=== PATIENT | male | born 1965 | race Caucasian/White ===

== ENCOUNTER 2019-11-27 07:23 | Outpatient (CLI) | payer OTHER, SELFPAY ==
--- NOTE | ~2019-11-27 | CT_ITS ---
EXAMINATION:CT chest wo con DATE: 11/27/2019 08:24 INDICATION: Congenital insufficiency of aortic valve. TECHNIQUE: Computed tomography (CT) of the chest was performed without intravenous contrast. Automate d exposure control and iterative reconstruction technique were employed. The dose-length product (DLP ) was 403.68 mGy-cm. COMPARISON: Chest CT 01/05/2018 FINDINGS: The lungs demonstrate mild atelectasis. There is mild scarring in paraspinal right lower lo be. There are mild tree-in-bud opacities in left lower lobe, likely inflammation or infection. A calc ified right lung nodule and calcified right hilar and mediastinal lymph nodes are consistent with old granulomatous disease. No pleural effusion. The heart size is normal. There are calcifications of ao rtic valve. There are coronary artery calcifications. No pericardial effusion. There is ectasia of as cending aorta measuring 4.2 cm. There is mild thoracic spondylosis. IMPRESSION: 1. Ectasia of ascending aorta measuring 4.2 cm. 2. Calcifications of aortic valve. Reviewed, dictated and finalized at location A. 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
[2019-11-27 08:07] LABS: Blood Urea Nitrogen 35 mg/dL (8-26); Estimated Glomerular Filt Rate 29
== END 2019-11-27 07:24 | disposition home or self-care (01) ==
PROVIDERS: PCP Family Medicine; Visit Provider Internal Medicine Cardiovascular Disease
DX: Q23.1 Congenital insufficiency of aortic valve (principal)
CPT/HCPCS: 71250

== ENCOUNTER 2020-02-04 13:24 | Inpatient (IN) | payer OTHER, SELFPAY ==
--- NOTE | ~2020-02-04 | US_ITS ---
EXAMINATION: US renal BI DATE: 02/05/2020 10:54 INDICATION: Elevated creatinine TECHNIQUE: Multiple grayscale and Doppler ultrasound images of the kidneys were obtained. COMPARISON: 04/30/2019 FINDINGS: The right kidney measures 12.0 x 6.3 x 6.5 cm. The left kidney measures 12.3 x 5.4 x 6.2 cm . The kidneys demonstrate normal parenchymal echogenicity. There is no hydronephrosis. The bladder is normal. IMPRESSION: 1. Normal kidneys without hydronephrosis. Reviewed, dictated and finalized at location A.
--- NOTE | ~2020-02-04 | MR_ITS ---
EXAMINATION: MR foot LT wo con DATE: 02/05/2020 10:52 INDICATION: Left foot osteomyelitis. TECHNIQUE: Magnetic resonance imaging (MRI) of the left foot was performed without intravenous contra st. Sequences included axial, coronal, and sagittal T1-weighted FSE and T2-weighted FS FSE. COMPARISON: Left foot MRI 04/11/2019, radiographs 08/30/2019 FINDINGS: There is mild hallux valgus. There are ulcers plantar and medial to first metatarsophalange al joint. There is bone marrow edema of first metatarsal with sparing of the base. There is bone osbaldo ow edema of first proximal phalanx with sparing of portions of the head. In both sites, bone marrow e herve is characterized by decreased T1-weighted signal intensity and increased T2-weighted signal inte nsity. There is moderate osteoarthritis of first metatarsophalangeal joint. There is mild osteoarthri tis of some of the interphalangeal joints and midfoot joints. There is increased T2-weighted signal i ntensity of the soft tissues around first proximal phalanx and first metatarsal, consistent with cell ulitis and myositis. More distant muscles demonstrate increased T2-weighted signal intensity, consist ent with subacute denervation. Lisfranc ligament is intact. There is mild tenosynovitis of flexor tory lucis longus. IMPRESSION: 1. Osteomyelitis involving first metatarsal and first proximal phalanx. Reviewed, dictated and finalized at location A.
--- NOTE | ~2020-02-04 | XR_ITS ---
XR chest port-a-cath/central 02/06/2020 16:01 Indication: Postop Wright catheter placement Procedure: AP portable chest Comparison: Comparison to multiple prior studies sequentially, with oldest reviewed study dated 01/04. Findings: Left subclavian Wright catheter tip in the right atrium. There is a new mass in the right paratracheal region, not seen on 10/31/2019. No pleural effusion, edema or pneumothorax. Impression: 1: New right paratracheal mass. Consider correlation with CT chest with contrast. Reviewed, dictated and finalized at location A. Impression: 1: New right paratracheal mass. Consider correlation with CT chest with contras t.
--- NOTE | ~2020-02-04 | XR_ITS ---
EXAMINATION: XR fl guide central line place INDICATION: Wright catheter insertion TECHNIQUE: A single intraoperative fluoroscopic image is submitted for review. Fluoroscopy exposure t deepthi was 109.2 seconds. The DAP for this procedure was 0.805 mGycm2. COMPARISON: None available FINDINGS: Fluoroscopic image demonstrates a partially imaged left subclavian central venous catheter. Please refer to procedure note for full details. IMPRESSION: 1. Partially imaged left subclavian catheter. Please refer to procedure note for full details. Reviewed, dictated and finalized at location A. IMPRESSION: 1. Partially imaged left subclavian catheter. Please refer to procedure note fo r full details.
--- NOTE | ~2020-02-04 | XR_ITS ---
XR foot LT 2V 02/06/2020 16:01 Indication: Postop left foot surgery osteomyelitis. Procedure: 2 views left foot postoperatively Comparison: 08/30/2019 Findings: Status post amputation of the first digit at the proximal aspect of the first metatarsal. N o foreign bodies identified. Lisfranc joint is grossly unremarkable. Small degenerative calcaneal ent hesophyte. Impression: 1: Status post recent amputation left first toe at the base of the first metatarsal. Reviewed, dictated and finalized at location A. Impression: 1: Status post recent amputation left first toe at the base of the first metata rsal.
--- NOTE | ~2020-02-04 | CT_ITS ---
EXAMINATION:CT chest wo con DATE: 02/07/2020 13:17 INDICATION: Right paratracheal mass. TECHNIQUE: Computed tomography (CT) of the chest was performed without intravenous contrast. Automate d exposure control and iterative reconstruction technique were employed. The dose-length product (DLP ) was 344.16 mGy-cm. COMPARISON: Chest single view 02/06/2020, chest CT 11/27/2019 FINDINGS: The lungs demonstrate mild atelectasis. A calcified right lung nodule and calcified right h ilar lymph nodes are consistent with old granulomatous disease. No pleural effusion. A left subclavia n central venous catheter is seen with tip at the superior cavoatrial junction. The heart size is nor mal. There are coronary artery calcifications. There are calcifications of the aortic valve. No peric ardial effusion. There is mild thoracic spondylosis. IMPRESSION: 1. No abnormal right paratracheal mass. Reviewed, dictated and finalized at location A.
--- NOTE | ~2020-02-04 | US_ITS ---
EXAMINATION: US arterial duplex LE EXAM DATE: 02/04/2020 15:37 INDICATION: Foot ulcers. TECHNIQUE: Multiple grayscale and Doppler images of the lower extremity arteries were obtained (by a technologist who performed the scan) and subsequently reviewed. There is no prior study for comparis on. FINDINGS: Velocities reported in centimeters per second. Right HEALTH INSURANCE AGENT 79, profunda 101, SFA, 97, popliteal 38, posterior tibial 52, dorsalis pedis 12 cm/s. There are triphasic wave forms except dorsalis pedis which is biphasic. The left HEALTH INSURANCE AGENT 118, profunda 112, SFA 101, popliteal 57, posterior tibial 71, dorsalis pedis 55 cm/s. T riphasic waveforms superficial femoral artery, monophasic below. IMPRESSION: 1. Normal lower extremity arterial Doppler velocities. 2. Monophasic left lower extremity velocities below SFA. Reviewed, dictated and finalized at location A.
--- NOTE | 2020-02-04 11:30 | ADMGEN ---
This patient, Pankaj Bautista, was admitted to Medical Room 250-01. Patient/family oriented to hospital policies and general routines including ID bracelet, bed and alarms, visiting hours, pain management, procedures, bathroom and other care routines, personal items, smoking policy, room service/diet, and visiting hours. Valuables list has been completed. Information on how to activate the Rapid Response Team has been discussed. Patient/Family are encouraged to report perceived risks to care and to ask questions if they do not understand what they are told or what they should do.
[2020-02-04 12:24] VITALS: BP 118/62; PULSE 91; RESP 18; TEMP 36.6; O2SAT 100
[2020-02-04 13:34] VITALS: BMI 30.8
[2020-02-04 13:42] LABS: Hemoglobin A1C 10.2 % (<5.7)
[2020-02-04 13:44] LABS: Estimated CRCL calculation 21 ml/min; Estimated Glomerular Filt Rate 14
[2020-02-04 14:00] VITALS: BP 102/72; PULSE 86; RESP 18; TEMP 36.1; O2SAT 95
--- NOTE | 2020-02-04 14:22 | PM.CNCAR ---
Assessment and Plan Assessment and plan (1) Diabetic foot ulcer: Code(s): E11.621 - Type 2 diabetes mellitus with foot ulcer; L97.509 - Non-pressure chronic ulcer of other part of unspecified foot with unspecified severity Status: Acute Assessment and Plan: 54 y/o with uncontrolled DM, HTN, bicuspid aortic valve with moderate to severe who presented with worsening leg ulcer His presentation with chronic ulcer makes embolic event less likely. His ulcer likely due to diabetes and less likely due to PVD as he He had normal CYNTHIA in Sep 2019, however will check arterial duplex of lower ext to rule out the possibility of significant PVD (he may have calcified disease given CKD) (2) Bicuspid aortic valve: Code(s): Q23.1 - Congenital insufficiency of aortic valve Status: Acute Assessment and Plan: With moderate to severe . Patient followed up by his elementary librarian with serial echocardiogram. most recent in Sep that showed valve area of 1.0 with velocity of 3.5 and mean gradient of 29 consistent with moderate to severe . (3) Chronic kidney disease: Code(s): N18.9 - Chronic kidney disease, unspecified Status: Acute Assessment and Plan: Creatinine 2.4 in Nov. No labs today yet. (4) Type 2 diabetes mellitus with hyperglycemia: Code(s): E11.65 - Type 2 diabetes mellitus with hyperglycemia Status: Acute History of Present Illness History of Present Illness Consult date/time: 02/04/20 14:22 54 y/o male with h/o HTN, DM since 2007, diabetic foot ulcer, Mod to severe with bicuspid aortic valve, CKD who was referred from his digital marketing coordinator office for with worsening foot ulcer for partial amputation. We were consulted to comment on possibility of PVD contributing to foot ulcer. He has the ulcer (on the plantar surface of 1st MTP joint of his left foot) for the last 2 years and he has been followed closely by podiatry for that. Over the last 3-4 days pain got worse and ulcer become deeper so he was referred to the hospital with plan for partial amputation as per patient He had CYNTHIA done in Sep that was normal. He also had 2D echo that showed moderate to severe with bicuspid valve. He denies chest pain or dyspnea. No EKG available currently. Reason For Visit: Cellulitis Review of Systems Review of Systems: All systems reviewed & are unremarkable except as noted in HPI and below Constitutional: Constitutional: Denies fatigue and Denies headache(s) Eyes: Eyes: Denies blurry vision ENT: Reports Normal hearing present and Denies headache(s) Cardiovascular: Cardiovascular: Denies chest pain, Denies diaphoresis, Denies pedal edema, Denies leg edema, Denies lightheadedness, Denies palpitations and Denies dyspnea Respiratory: Respiratory: Denies cough and Denies dyspnea Gastrointestinal: Gastrointestinal: Denies abdominal pain Musculoskeletal: Musculoskeletal: Denies back pain Neurologic: Reports Normal hearing present and Denies headache(s) Psychiatric: Psychiatric: Denies anxiety Endocrine: Endocrine: Denies fatigue and Denies palpitations [facility] Past Medical History Medical History (Updated 02/04/20 @ 14:31 by July Kong MD) Aortic valve stenosis Arthritis Chronic kidney disease Diabetic foot ulcer Essential (primary) hypertension FHx: prostate cancer Finger fracture GERD (gastroesophageal reflux disease) Head ache Heart murmur Hiatal hernia History of cerebrovascular accident (CVA) in adulthood Hy kid NOS w cr kid I-IV Impingement syndrome of left shoulder Iron deficiency Long-term insulin use Microcytic anemia Mixed hyperlipidemia Neuropathy Peripheral vascular disease Pneumonia Prostate cancer screening 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
[2020-02-04 14:36] LABS: Glucose Point of Care 91 (65-105)
--- NOTE | 2020-02-04 15:49 | WPDHPUPDATE1 ---
History and Physical Update Update Date/Time: 02/04/20 15:49 History and Physical has been reviewed, including an updated exam of the patient. There are NO changes in the patient's condition. Risks, benefits, and alternatives have been discussed and questions answered. Patient agrees to proceed with procedure.
--- NOTE | 2020-02-04 15:51 | PM.IMHP ---
H&P: HPI History of Present Illness Chief complaint: Cellulitis Narrative: Pankaj Bautista is a 54 year old male with history of uncontrolled diabetes with last hemoglobin A1c of 10.1, moderate to severe aortic stenosis and chronic kidney disease, it is for last 2 months he has been having pain in his left foot, patient is seen by his primary care doctor and started the patient on doxycycline his symptoms were not improving your difficulty weight-bearing and ambulating was seen by inspector final assembly electrical today and had I and D, surgeon noticed the patient has necrosis of the wound and suspect the patient may have osteomyelitis to further evaluate we were asked to admit the patient, currently patient states pain is still persisting he denies any fever or chills he denies any polyuria or polydipsia, Review of Systems Review of Systems: All systems reviewed & are unremarkable except as noted in HPI and below PMFSH Past Medical History Medical History (Updated 02/04/20 @ 14:31 by July Kong MD) Aortic valve stenosis Arthritis Chronic kidney disease Diabetic foot ulcer Essential (primary) hypertension FHx: prostate cancer Finger fracture GERD (gastroesophageal reflux disease) Head ache Heart murmur Hiatal hernia History of cerebrovascular accident (CVA) in adulthood Hy kid NOS w cr kid I-IV Impingement syndrome of left shoulder Iron deficiency Long-term insulin use Microcytic anemia Mixed hyperlipidemia Neuropathy Peripheral vascular disease Pneumonia Prostate cancer screening 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el release History of tonsillectomy Social History Social History (Updated 12/24/19 @ 16:34 by Lizbeth Burt) Smoking packs per day: 2 Smoking cigarettes per day: 40.0 Years smoked: 25 Smoking pack-years: 50.00 Smoking status: Former smoker Tobacco type: cigarettes Smoking end date: 10/23/17 Alcohol intake: never Substance use: never Substance use type: does not use Gender identity (if verbalized by the patient): Male Spiritual care concerns: No Agree to blood products: Yes Meds Home Medications and Allergies Home Medications Medication Instructions Recorded Confirmed Type amlodipine 10 mg PO DAILY 08/30/19 02/04/20 History empagliflozin [Jardiance] 25 mg PO DAILY 08/30/19 02/04/20 History gemfibrozil 600 mg PO DAILY 08/30/19 02/04/20 History metformin 1,000 mg PO DAILY 08/30/19 02/04/20 History pantoprazole 40 mg PO HS 08/30/19 02/04/20 History pravastatin 80 mg PO DAILY 08/30/19 02/04/20 History ranitidine HCl 150 mg PO DAILY 08/30/19 02/04/20 History venlafaxine 100 mg PO BID 08/30/19 02/04/20 History fenofibrate micronized 134 mg 134 mg PO DAILY 09/11/19 02/04/20 History capsule gabapentin 300 mg capsule 300 mg PO TID 09/11/19 02/04/20 History pen needle, diabetic 31 gauge x #30 each 09/11/19 02/04/20 Rx 5/16 sildenafil 100 mg tablet 100 mg PO DAILY PRN 09/11/19 02/04/20 History alogliptin 25 mg tablet 25 mg PO DAILY 09/16/19 02/04/20 History metoprolol succinate 100 mg 100 mg PO DAILY 11/12/19 02/04/20 History capsule sprinkle, ext. release 24 hr insulin detemir U-100 100 unit/mL 44 unit SUB-Q BID #30 ml 01/01/20 02/04/20 Rx subcutaneous solution insulin syringe-needle U-100 0.5 #200 each 01/01/20 02/04/20 Rx mL 29 gauge x 1/2 valsartan 160 mg tablet 160 mg PO DAILY #90 tablet 01/30/20 02/04/20 Rx doxycycline hyclate 100 mg tablet 100 mg PO DAILY #28 tablet 02/03/20 02/04/20 Rx Allergies Allergy/AdvReac Type Severity Reaction Status Date / Time No Known Allergies Allergy Verified 02/04/20 12:40 Vital Signs Vital Signs - 24 hr 02/04/20 12:24 02/04/20 14:00 Temperature 97.9 F 96.9 F L Pulse Rate 91 86 Respiratory Rate 18 18 Blood Pressure 118/62 102
[2020-02-04 15:59] LABS: Basophils Absolute Auto 0.1 K/mm3 (0.0-0.1); Basophils Percent Auto 0.5 % (0.2-1.2); Eosinophils Absolute Auto 0.1 K/mm3 (0-0.3); Eosinophils Percent Auto 0.4 % (0-4.4); Hemoglobin 10.7 g/dL (14.0-18.0); Immature Granulocyte Absolute 0.15 K/mm3 (0.00-0.031); Immature Granulocyte Percent A 0.6 % (0-0.5); Lymphocytes Absolute Auto 2.22 K/mm3 (0.9-3.2); Lymphocytes Percent Auto 9.6 % (18.3-44.2); Mean Corpuscular HGB Conc 30.6 g/dl (32-36); Mean Corpuscular Hemoglobin 23.6 pg (26-34); Mean Corpuscular Volume 77.1 fl (80-100); Mean Platelet Volume 9.8 fl (7.4-10.4); Monocytes Absolute Auto 2.2 K/mm3 (0.1-0.6); Monocytes Percent Auto 9.3 % (2.6-8.5); Neutrophils Absolute Auto 18.4 K/mm3 (1.3-6.7); Neutrophils Percent Auto 79.6 % (45.5-73.1); Platelet Count Result 456 k/mm3 (150-375); Red Blood Count 4.54 M/mm3 (4.6-6.20); Red Cell Distribution Width 14.2 % (11.5-14.5); White Blood Count 23.1 K/mm3 (4.5-10.0)
[2020-02-04] MEDS: GABAPENTIN 300 MG CAPSULE PO (16:47)
[2020-02-04] MEDS: INSULIN DETEMIR 100 UNITS/ML 44 UNITS SUB-Q (16:48)
[2020-02-04] MEDS: VENLAFAXINE HCL 75 MG TABLET PO (16:51)
[2020-02-04] MEDS: VENLAFAXINE HCL 25 MG TABLET PO (16:51)
[2020-02-04 16:56] LABS: Glucose Point of Care 141 (65-105)
[2020-02-04 19:29] LABS: Alanine Aminotransferase 9 U/L (4-50); Albumin Level 3.6 g/dL (3.5-5.1); Alkaline Phosphatase 138 U/L (38-126); Aspartate Amino Transferase 16 U/L (17-59); Bilirubin,Total 0.3 mg/dL (0.2-1.3); Blood Urea Nitrogen 46 mg/dL (9-20); Calcium 8.8 mg/dL (8.4-10.2); Carbon Dioxide 20 mmol/L (22-30); Chloride 98 mmol/L (98-107); Estimated CRCL calculation 18 ml/min; Estimated Glomerular Filt Rate 12; Glucose 137 mg/dL (75-110); Potassium 3.8 mmol/L (3.4-5.0); Sodium 130 mmol/L (137-145)
[2020-02-04] MEDS: HEPARIN SODIUM 5,000 UNITS/ML VIAL 5000 UNITS SUB-Q (19:55)
[2020-02-04] MEDS: PANTOPRAZOLE 40 MG TABLET PO (19:55)
[2020-02-04 20:00] VITALS: PULSE 86; RESP 18; O2SAT 95
[2020-02-04 21:06] LABS: Glucose Point of Care 139 (65-105)
[2020-02-04 21:55] VITALS: BP 122/80; PULSE 99; RESP 16; TEMP 36.6; O2SAT 95
[2020-02-05 05:13] LABS: Basophils Absolute Auto 0.1 K/mm3 (0.0-0.1); Basophils Percent Auto 0.4 % (0.2-1.2); Eosinophils Absolute Auto 0.2 K/mm3 (0-0.3); Eosinophils Percent Auto 1.5 % (0-4.4); Hematocrit 32.3 % (42.0-52.0); Hemoglobin 10.4 g/dL (14.0-18.0); Immature Granulocyte Absolute 0.09 K/mm3 (0.00-0.031); Immature Granulocyte Percent A 0.5 % (0-0.5); Lymphocytes Absolute Auto 2.31 K/mm3 (0.9-3.2); Lymphocytes Percent Auto 14.1 % (18.3-44.2); Mean Corpuscular HGB Conc 32.2 g/dl (32-36); Mean Corpuscular Volume 74.6 fl (80-100); Mean Platelet Volume 9.3 fl (7.4-10.4); Monocytes Absolute Auto 1.8 K/mm3 (0.1-0.6); Monocytes Percent Auto 10.9 % (2.6-8.5); Neutrophils Absolute Auto 11.9 K/mm3 (1.3-6.7); Neutrophils Percent Auto 72.6 % (45.5-73.1); Platelet Count Result 410 k/mm3 (150-375); Red Blood Count 4.33 M/mm3 (4.6-6.20); Red Cell Distribution Width 13.9 % (11.5-14.5); White Blood Count 16.4 K/mm3 (4.5-10.0)
[2020-02-05 05:26] LABS: Blood Urea Nitrogen 53 mg/dL (9-20); Calcium 8.9 mg/dL (8.4-10.2); Carbon Dioxide 19 mmol/L (22-30); Chloride 100 mmol/L (98-107); Estimated CRCL calculation 14 ml/min; Estimated Glomerular Filt Rate 9; Glucose 116 mg/dL (75-110); Potassium 3.5 mmol/L (3.4-5.0); Sodium 131 mmol/L (137-145)
[2020-02-05 06:00] VITALS: BP 114/78; PULSE 93; RESP 16; TEMP 35.9; O2SAT 92
[2020-02-05 08:07] LABS: Glucose Point of Care 93 (65-105)
--- NOTE | 2020-02-05 09:00 | PM.IMHP ---
H&P: HPI History of Present Illness Chief complaint: Cellulitis Narrative: Pankaj Bautista is a 54 year old male Insulin-dependent diabetic with chronic kidney disease. The patient was admitted after being seen in my office February 04, 2020, he was referred over by his primary care physician's office for an infected diabetic foot ulcer left. I performed an incision and drainage of a large abscess to the first metatarsal phalangeal joint. The patient had malaise, weakness. No fevers, no chills no nausea no vomiting. I decided to had the patient admitted for evaluation and managementof possible osteomyelitis. Review of Systems Review of Systems: All systems reviewed & are unremarkable except as noted in HPI and below PMFSH Past Medical History Medical History (Updated 02/05/20 @ 09:16 by Kendall Garcia JR, MD) Aortic valve stenosis Arthritis Chronic kidney disease Diabetic foot ulcer Diabetic foot ulcer Probing to bone Essential (primary) hypertension FHx: prostate cancer Finger fracture GERD (gastroesophageal reflux disease) Head ache Heart murmur Hiatal hernia History of cerebrovascular accident (CVA) in adulthood Hy kid NOS w cr kid I-IV Impingement syndrome of left shoulder Iron deficiency Long-term insulin use Microcytic anemia Mixed hyperlipidemia Neuropathy Peripheral vascular disease (Unknown) Pneumonia Prostate cancer screening 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el release History of tonsillectomy Social History Social History (Updated 12/24/19 @ 16:34 by Lizbeth Burt) Smoking packs per day: 2 Smoking cigarettes per day: 40.0 Years smoked: 25 Smoking pack-years: 50.00 Smoking status: Former smoker Tobacco type: cigarettes Smoking end date: 10/23/17 Alcohol intake: never Substance use: never Substance use type: does not use Gender identity (if verbalized by the patient): Male Spiritual care concerns: No Agree to blood products: Yes Meds Home Medications and Allergies Home Medications Medication Instructions Recorded Confirmed Type amlodipine 10 mg PO DAILY 08/30/19 02/04/20 History gemfibrozil 600 mg PO DAILY 08/30/19 02/04/20 History metformin 1,000 mg PO DAILY 08/30/19 02/04/20 History pantoprazole 40 mg PO HS 08/30/19 02/04/20 History pravastatin 80 mg PO DAILY 08/30/19 02/04/20 History ranitidine HCl 150 mg PO DAILY 08/30/19 02/04/20 History venlafaxine 100 mg PO BID 08/30/19 02/04/20 History fenofibrate micronized 134 mg 134 mg PO DAILY 09/11/19 02/04/20 History capsule gabapentin 300 mg capsule 300 mg PO TID 09/11/19 02/04/20 History pen needle, diabetic 31 gauge x #30 each 09/11/19 02/04/20 Rx 5/16 sildenafil 100 mg tablet 100 mg PO DAILY PRN 09/11/19 02/04/20 History alogliptin 25 mg tablet 25 mg PO DAILY 09/16/19 02/04/20 History metoprolol succinate 100 mg 100 mg PO DAILY 11/12/19 02/04/20 History capsule sprinkle, ext. release 24 hr insulin detemir U-100 100 unit/mL 44 unit SUB-Q BID #30 ml 01/01/20 02/04/20 Rx subcutaneous solution insulin syringe-needle U-100 0.5 #200 each 01/01/20 02/04/20 Rx mL 29 gauge x 1/2 valsartan 160 mg tablet 160 mg PO DAILY #90 tablet 01/30/20 02/04/20 Rx doxycycline hyclate 100 mg tablet 100 mg PO DAILY #28 tablet 02/03/20 02/04/20 Rx Allergies Allergy/AdvReac Type Severity Reaction Status Date / Time No Known Allergies Allergy Verified 02/04/20 12:40 Vital Signs Vital Signs - 24 hr 02/04/20 12:24 02/04/20 14:00 02/04/20 20:00 Temperature 36.6 C 36.1 C L Pulse Rate 91 86 86 Respiratory Rate 18 18 18 Blood Pressure 118/62 102/72 Pulse Oximetry 100 95 95 02/04/20 21:55 02/05/20 06:00 Temperature 36.6 C 35.9 C L Pulse Rate 99 93 Respiratory Rate 16 16 Blood Pressure 122/80 114/
--- NOTE | 2020-02-05 09:07 | PCOTNOTE ---
Attempted OT evaluation, but unable to complete as patient going for a stat MRI. Will continue to follow.
--- NOTE | 2020-02-05 09:07 | PCPTNOTE ---
Attempted PT eval. Pt going to MRI. Will try again at later time.
[2020-02-05] MEDS: AMLODIPINE BESYLATE 5 MG TABLET 10 MG PO (09:11)
[2020-02-05] MEDS: FAMOTIDINE 20 MG TABLET PO (09:11)
[2020-02-05] MEDS: GABAPENTIN 300 MG CAPSULE PO ×3 (09:11→17:02)
[2020-02-05] MEDS: FENOFIBRATE NANOCRYSTALLIZED 145 MG TABLET PO (09:11)
[2020-02-05] MEDS: gemfibroziL 600 MG TABLET PO (09:11)
[2020-02-05] MEDS: HEPARIN SODIUM 5,000 UNITS/ML VIAL 5000 UNITS SUB-Q (09:11)
[2020-02-05] MEDS: VENLAFAXINE HCL 75 MG TABLET PO ×2 (09:12→17:03)
[2020-02-05] MEDS: PRAVASTATIN SODIUM 20 MG TABLET 80 MG PO (09:12)
[2020-02-05] MEDS: VENLAFAXINE HCL 25 MG TABLET PO ×2 (09:12→17:03)
[2020-02-05] MEDS: metFORMIN HCL 500 MG TABLET 1000 MG PO (09:12)
[2020-02-05] MEDS: VALSARTAN 160 MG TABLET PO (09:12)
[2020-02-05 09:13] VITALS: PULSE 80
[2020-02-05] MEDS: METOPROLOL SUCCINATE EXT REL 100 MG TABCR PO (09:13)
--- NOTE | 2020-02-05 09:25 | PC.NURSE ---
Patient c/o epigastric/lower medial chest pain with inspiration - rated 4/10. States the pain is sharp and intermittent. VS remain stable. Notified Dr. Lim and he stated cardiology should be informed. Dr. Glass here on rounds. Notified him of pain also. No new orders received.
[2020-02-05] MEDS: INSULIN DETEMIR 100 UNITS/ML 44 UNITS SUB-Q (09:26)
--- NOTE | 2020-02-05 09:44 | PC.NURSE ---
Patient home med Alogliptan tubed to pharmacy for verification.
--- NOTE | 2020-02-05 10:24 | PM.PNCARD ---
Progress Note: A&P Assessment and Plan (1) Diabetic foot ulcer: Code(s): E11.621 - Type 2 diabetes mellitus with foot ulcer; L97.509 - Non-pressure chronic ulcer of other part of unspecified foot with unspecified severity Status: Acute Assessment and Plan: 54 y/o with uncontrolled DM, HTN, bicuspid aortic valve with moderate to severe who presented with worsening leg ulcer His presentation with chronic ulcer, left heel duplex showed no significant disease, indicating but also is likely due to volvulus but not multiple vascular disease. Okay to go for amputation (2) Bicuspid aortic valve: Code(s): Q23.1 - Congenital insufficiency of aortic valve Status: Acute Assessment and Plan: With moderate to severe . 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 most recent in Sep that showed valve area of 1.0 with velocity of 3.5 and mean gradient of 29 consistent with moderate to severe . (3) Chronic kidney disease: Code(s): N18.9 - Chronic kidney disease, unspecified Status: Acute Assessment and Plan: Creatinine 2.4 in Nov. No labs today yet. (4) Type 2 diabetes mellitus with hyperglycemia: Code(s): E11.65 - Type 2 diabetes mellitus with hyperglycemia Status: Acute Subjective Date/time seen: 02/05/20 10:24 He feels okay today, he gets occasional chest pain seems to be nonexertional, and seems to be pleuritic. Arterial duplex was done showed no significant peripheral vascular disease Exam Const: General: no acute distress Eyes: Sclera: sclerae normal Neck: Neck: no JVD Carotids: no bruits Resp: Effort & Inspection: normal respiratory effort Auscultation: clear to auscultation bilaterally Cardio: Rate: regular rate and not tachycardic Rhythm: regular rhythm Heart sounds: no gallops, Murmur heart sound present (2-3/6 systolic murmur. ) and no rubs Skin: General skin exam: normal color Other: 3-4cm in plantar surface of 1st MTP joint of the left foot. No pus. + Erythema and edema Neuro: Cranial nerves: Yes Normal hearing present Speech: normal speech Extrem: General: normal to inspection and no edema Psych: Affect: normal affect Objective Data Vital Signs Vital Signs: Vital Signs - 24 hr 02/04/20 12:24 02/04/20 14:00 02/04/20 20:00 Temperature 36.6 C 36.1 C L Pulse Rate 91 86 86 Respiratory Rate 18 18 18 Blood Pressure 118/62 102/72 Pulse Oximetry 100 95 95 02/04/20 21:55 02/05/20 06:00 02/05/20 09:13 Temperature 36.6 C 35.9 C L Pulse Rate 99 93 80 Respiratory Rate 16 16 Blood Pressure 122/80 114/78 Pulse Oximetry 95 92 Intake/Output Intake/Output: Intake & Output 02/02/20 02/03/20 02/04/20 02/05/20 23:59 23:59 23:59 23:59 Intake Total 880 880 Output Total 500 Balance 880 380 Meds/Results Medications: Active Medications Generic Name Dose Route Start Last Admin Trade Name Freq PRN Reason Stop Dose Admin Amlodipine Besylate 10 mg 02/05/20 09:00 02/05/20 09:11 Norvasc PO 10 mg DAILY ALEX Administration Dextrose 12.5 gm 02/04/20 16:06 Dextrose 50% Syringe IV PUSH PRN PRN Hypoglycemia Protocol Famotidine 20 mg 02/05/20 09:00 02/05/20 09:11 Pepcid PO 20 mg DAILY ALEX Administration Fenofibrate 145 mg 02/05/20 09:00 02/05/20 09:11 Tricor PO 145 mg DAILY ALEX Administration Gabapentin 300 mg 02/04/20 17:00 02/05/20 09:11 Neurontin PO 300 mg TID ALEX Administration Gemfibrozil 600 mg 02/05/20 09:00 02/05/20 09:11 Lopid PO 600 mg DAILY ALEX Administration Glucagon 1 mg 02/04/20 16:06 Glucagon For Inj IM PRN PRN Hypoglycemia Protocol Glucose 15 gm 02/04/20 16:06 Glutose 15 PO PRN PRN Hypoglycemia Protocol Heparin Sodium (Porcine) 5,000 units 02/04/20 21:00 02/05/20 09:11 Heparin Sodium SUB-Q 5,000 units Q12HR ALEX Administration Dextrose 1,00
--- NOTE | 2020-02-05 10:45 | PHAR ---
HOME MED VERIFIED [facility] RX [id number] ALOGLIPTIN 12.5 MG 1 TAB ONCE A DAY DOES NOT MATCH HOME ORDER OF 25 MG DAILY
[2020-02-05 11:41] LABS: Glucose Point of Care 186 (65-105)
--- NOTE | 2020-02-05 12:38 | WPDINFPN2 ---
Progress Note: A&P Assessment and Plan (1) Acute osteomyelitis involving ankle and foot: Code(s): M86.179 - Other acute osteomyelitis, unspecified ankle and foot Status: Acute Assessment and Plan: 1. Acute OM L 1st MT and proximal phalanx 2. Chronic ulcer, plantar 1st MT head 3. DM poor control 4. CRI REC PipTazo #1. Wound culture in process. Will need ray amputation and 6 weeks IV therapy. Midline and PICC are relatively contraindicated due to renal insufficiency and future need for AV fistula, get Wright. Subjective Date/time seen: 02/05/20 12:38 Objective Data Vital Signs Vital Signs: Vital Signs - 24 hr 02/04/20 14:00 02/04/20 20:00 02/04/20 21:55 Temperature 36.1 C L 36.6 C Pulse Rate 86 86 99 Respiratory Rate 18 18 16 Blood Pressure 102/72 122/80 Pulse Oximetry 95 95 95 02/05/20 06:00 02/05/20 09:13 Temperature 35.9 C L Pulse Rate 93 80 Respiratory Rate 16 Blood Pressure 114/78 Pulse Oximetry 92 Intake/Output Intake/Output: Intake & Output 02/02/20 02/03/20 02/04/20 02/05/20 23:59 23:59 23:59 23:59 Intake Total 880 880 Output Total 500 Balance 880 380 Meds/Results Medications: Active Medications Generic Name Dose Route Start Last Admin Trade Name Freq PRN Reason Stop Dose Admin Amlodipine Besylate 10 mg 02/05/20 09:00 02/05/20 09:11 Norvasc PO 10 mg DAILY ALEX Administration Dextrose 12.5 gm 02/04/20 16:06 Dextrose 50% Syringe IV PUSH PRN PRN Hypoglycemia Protocol Famotidine 20 mg 02/05/20 09:00 02/05/20 09:11 Pepcid PO 20 mg DAILY ALEX Administration Fenofibrate 145 mg 02/05/20 09:00 02/05/20 09:11 Tricor PO 145 mg DAILY ALEX Administration Gabapentin 300 mg 02/04/20 17:00 02/05/20 12:28 Neurontin PO 300 mg TID ALEX Administration Gemfibrozil 600 mg 02/05/20 09:00 02/05/20 09:11 Lopid PO 600 mg DAILY ALEX Administration Glucagon 1 mg 02/04/20 16:06 Glucagon For Inj IM PRN PRN Hypoglycemia Protocol Glucose 15 gm 02/04/20 16:06 Glutose 15 PO PRN PRN Hypoglycemia Protocol Heparin Sodium (Porcine) 5,000 units 02/04/20 21:00 02/05/20 09:11 Heparin Sodium SUB-Q 5,000 units Q12HR ALEX Administration Dextrose 1,000 mls @ 100 mls/hr 02/04/20 16:06 Dextrose 5% 1,000 Ml IVPB PRN PRN Hypoglycemia Protocol Insulin Aspart 2 - 5 units 02/04/20 17:00 02/05/20 11:44 Novolog SUB-Q Not Given TIDWM ALEX Protocol Insulin Detemir 44 units 02/04/20 17:00 02/05/20 09:26 Levemir SUB-Q 44 units BID ALEX Administration Metformin HCl 1,000 mg 02/05/20 09:00 02/05/20 09:12 Glucophage PO 1,000 mg DAILY ALEX Administration Metoprolol Succinate 100 mg 02/05/20 09:00 02/05/20 09:13 Toprol Xl PO 100 mg DAILY ALEX Administration Pantoprazole Sodium 40 mg 02/04/20 21:00 02/04/20 19:55 Protonix PO 40 mg HS ALEX Administration Pravastatin Sodium 80 mg 02/05/20 09:00 02/05/20 09:12 Pravastatin Sodium PO 80 mg DAILY ALEX Administration Valsartan 160 mg 02/05/20 09:00 02/05/20 09:12 Diovan PO 160 mg DAILY ALEX Administration Venlafaxine HCl 75 mg 02/04/20 17:00 02/05/20 09:12 Effexor PO 75 mg BID ALEX Administration Venlafaxine HCl 25 mg 02/04/20 17:00 02/05/20 09:12 Effexor PO 25 mg BID ALEX Administration Radiology Results: ITS Impressions Duplex Scan Lower Extremity Artery 02/04/20 15:46 IMPRESSION: 1. Normal lower extremity arterial Doppler velocities. 2. Monophasic left lower extremity velocities below SFA. Renal Ultrasound 02/05/20 11:04 IMPRESSION: 1. Normal kidneys without hydronephrosis. Foot MRI 02/05/20 11:13 IMPRESSION: 1. Osteomyelitis involving first metatarsal and first proximal phalanx. Labs Labs: Laboratory Results - last 24 hr 02/04/20 02/04/202
--- NOTE | 2020-02-05 13:04 | CONS_ITS ---
This report was moved to the correct visit, [id number], on March 11, 2020, Original report was signed by Dr. Painter Rodriguez on February 07, 2020 at 1400 DATE OF CONSULTATION: 02/05/2020 REASON FOR CONSULTATION: Osteomyelitis, left first toe and adjacent foot. HISTORY OF PRESENT ILLNESS: The patient is a 54-year-old male with diabetes mellitus for the last 11 years. He describes symptoms of a peripheral neuropathy. He also has chronic renal insufficiency approximately 2 years ago. He developed a fissure in the area of a callus, left first metatarsal head, plantar aspect, which then developed into an ulcer. This is intermittently grown and shrunken over time. He is referred to [facility] last year, where no intervention was recommended. He has done wound care and has seen a wound care nurse at various times. He has never required any surgical intervention other than debridement apparently. About 1 week prior to admission, he developed new onset of pain up the leg to the left hip area along with worsening size of the ulcer, along with edema and erythema of the dorsum of the foot and the first toe. He was seen in the office one-day before admission, where a bedside incision and drainage were performed. Purulent fluid was evacuated. He was then asked to present to the emergency room yesterday, the reason for the delay of one-day in admission is not known by the patient. Here, he has been started on vancomycin. Consultation was requested. He denies fever, chills, or sweats. He was given a single dose of an antibiotic of unknown identity prior to admission, took 1 dose prior to admission. His medication list on admission indicates doxycycline though he believes the antibiotics started with a.c. He knows of no trauma, vascular disease. Previous surgeries to the left foot or leg, no symptoms on the opposite side. ALLERGIES: NONE KNOWN. PRESENT MEDICATIONS: Vancomycin as above. HABITS: Quit smoking 2 years ago. No alcohol. No illicit drugs. PAST MEDICAL HISTORY: In addition to the above, tonsillectomy, carpal tunnel surgery, diabetic retinopathy, past pneumonia, hyperlipidemia, anemia, iron deficiency, stroke with 2 weeks of right hemiparesis in 2008, hiatal hernia, headaches, GERD, fracture of the right first toe, hypertension, bicuspid aortic valve with stenosis. FAMILY HISTORY: Not pertinent to his present illness. SOCIAL HISTORY: He is . He formerly worked at [employer]. Now works at [employer]. 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 PHYSICAL EXAMINATION: GENERAL: This is a middle-aged male, who appears older than his actual age. No respiratory distress, afebrile since arrival, 93, 16, 114/78. SKIN: Warm and dry. No rashes. No suspicious skin lesions. No ulcerations except as below. NODES: He has no axillary or cervical adenopathy. EENT: Pupils equal, round, and reactive to light. Oropharynx and oral mucosa normal. No paranasal sinus erythema, edema or tenderness. NECK: Without meningismus mass. LUNGS: Clear to auscultation and percussion. CARDIAC: Regular rate and rhythm. No murmurs or gallops. Dorsalis pedis pulses 1+. Popliteal pulses 2+. ABDOMEN: No bruits. Nontender. No mass. No organomegaly. EXTREMITIES: Right foot is bland. On the left foot, he has edema, erythema, and violaceous discoloration of the distal medial foot along with the first toe. He has diminished light touch sensation. He has open ulceration plantar foot as well as a surgical incision, which is packed over the medial foot. He has no tenderness. He has diminished range of motion of the metatarsophalangeal. Other toes have no erythema nor tenderness. RADIOLOGY: MRI of the foot indicates findings of osteomyelitis dis
--- NOTE | 2020-02-05 13:34 | PM.IMPN ---
Progress Note: A&P Assessment and Plan (1) Diabetic foot ulcer: Code(s): E11.621 - Type 2 diabetes mellitus with foot ulcer; L97.509 - Non-pressure chronic ulcer of other part of unspecified foot with unspecified severity Status: Acute Assessment and Plan: 02/05/20 13:34 Pankaj Bautista is a 54 year old male with history of uncontrolled diabetes with last hemoglobin A1c of 10.1, moderate to severe aortic stenosis and chronic kidney disease, it is for last 2 months he has been having pain in his left foot, patient is seen by his primary care doctor and started the patient on doxycycline his symptoms were not improving, he had difficulty weight-bearing and ambulating was seen by hot plate plywood press offbearer on 02/03 and had I and D, surgeon noticed the patient has necrosis of the wound and suspect the patient may have osteomyelitis to further evaluate we were asked to admit the patient, started patient on vancomycin empirically on 02/03, patient be seen by Dr. Henriquez today started patient on Zosyn for acute OM 1st metatarsal and phalanx, patient will need IV abx for 6 weeks, recommended gordo, patient was seen by Dr. Martin his hot plate plywood press offbearer orderd MRI of foot which conmfired that patient has Osteomyelitis involving first metatarsal and first proximal phalanx and he will do surgery of the foot on 02/05, patient advocate seen the patient does not suspect PVD rather patient has DM foot ulcer and patient has moderate oartic stenosis, and does not recommend general anesthesia for the surgery, patient with CKD most likely 2/2 to long standing uncontrolled DM, renal US did not show any pathalogy, we have consulted Dr. Colindres for futher evaluation and recommendations, today patient stats he is feeling litter better, denies any fever or chills, will start the PT OT after surgery will consult school vocational educator for further recommendation (2) Type 2 diabetes mellitus with hyperglycemia: Code(s): E11.65 - Type 2 diabetes mellitus with hyperglycemia Status: Acute Assessment and Plan: Will continue current regimen will have school vocational educator evaluate the patient (3) Chronic kidney disease: Code(s): N18.9 - Chronic kidney disease, unspecified Status: Acute Assessment and Plan: Patient on acute on chronic kidney disease will gently hydrate the patient monitor kidney function if needed will will consult manager inventory (4) Peripheral vascular disease: Onset Date: Unknown Code(s): I73.9 - Peripheral vascular disease, unspecified Status: Acute Assessment and Plan: Patient is seen by patient advocate and workup is in progress further recommendation to follow (5) Essential (primary) hypertension: Code(s): I10 - Essential (primary) hypertension Status: Acute Assessment and Plan: Will continue home regimen and monitor (6) Aortic valve stenosis: Code(s): I35.0 - Nonrheumatic aortic (valve) stenosis Status: Acute Assessment and Plan: Patient with history of moderate to severe aortic stenosis patient is seen by patient advocate and further recommendation to follow Subjective Date/time seen: 02/05/20 13:34 Pankaj Bautista is a 54 year old male with history of uncontrolled diabetes with last hemoglobin A1c of 10.1, moderate to severe aortic stenosis and chronic kidney disease, it is for last 2 months he has been having pain in his left foot, patient is seen by his primary care doctor and started the patient on doxycycline his symptoms were not improving, he had difficulty weight-bearing and ambulating was seen by hot plate plywood press offbearer on 02/03 and had I and D, surgeon noticed the patient has necrosis of the wound and suspect the patient may have osteomyelitis to further evaluate we were asked to admit the patient, started patient on vancomycin empirically on 02/03, patient be seen by Dr. Henriquez today started patient on Zosyn for acute OM 1st metatarsal and phalanx, patient will need IV abx for 6 weeks,
[2020-02-05 14:00] VITALS: BP 100/70; PULSE 85; RESP 18; TEMP 36.8; O2SAT 100
[2020-02-05 17:12] LABS: Glucose Point of Care 70 (65-105)
--- NOTE | 2020-02-05 18:03 | PM.CNNEP ---
Assessment and Plan Assessment and plan (1) VLAD (acute kidney injury): Code(s): N17.9 - Acute kidney failure, unspecified Status: Acute (2) Chronic kidney disease: Code(s): N18.9 - Chronic kidney disease, unspecified Status: Acute (3) Diabetic foot ulcer: Code(s): E11.621 - Type 2 diabetes mellitus with foot ulcer; L97.509 - Non-pressure chronic ulcer of other part of unspecified foot with unspecified severity Status: Acute (4) Essential (primary) hypertension: Code(s): I10 - Essential (primary) hypertension Status: Acute (5) Acute osteomyelitis involving ankle and foot: Code(s): M86.179 - Other acute osteomyelitis, unspecified ankle and foot Status: Acute Assessment and Plan: . Additional Plan Pankaj has suffered an acute insult on top of his baseline kidney disease. I suspect that this insult is probably multifactorial. The acute infection and underlying osteomyelitis is likely a big part of this significant changes kidney function but this was probably compounded by the fact that he was on an ARB for blood pressure control as well as metformin and since admission, he has been relatively hypotensive as well. Hence, I suspect he has suffered some degree of renal hypoperfusion/ acute tubular necrosis which has resulted in the worsening of his overall kidney function. If this is indeed the case, then ongoing evaluation and treatment of the underlying infection with surgery antibiotics coupled with optimization of his hemodynamics should the vertically improve his kidney function in general. However, given the severity of the insult to his kidneys, is very possible that his kidney function may deteriorate further prior to improvement. My concern of course is that he may require renal replacement therapy / dialysis as a temporary measure to improve his kidney function if his kidney function continues to deteriorate or he runs into problems or issues with critical electrolyte abnormalities, worsening metabolic acidosis, uremia, or volume overload. I did have a very long extensive discussion with the patient (greater than 20 min) regarding this possibility and he did seem to voice understanding. For now, I would continue to hold his valsartan and metformin, follow the trend of his hemodynamics and use IV fluids as tolerated to optimize his mean arterial pressure, and proceed with whatever surgical intervention is needed to treat his underlying infection along with current antibiotic therapy. Hopefully, with all these interventions, his kidney function will improve but only time will tell. I will continue to follow patient with you while he made hospitalized to make further recommendations during his hospital course. Thank you for allowing me to participate in the care of this patient. History of Present Illness Reason for Consult Consult date: 02/06/20 Reason for consult: acute renal failure (on chronic kidney disease) Chief Complaint Chief complaint: Cellulitis History of Present Illness Narrative: The patient is a 54-year-old male with a past medical history as outlined below who was directly admitted to [facility] for further evaluation of his left foot wound after being seen by Podiatry in the office yesterday. The day before admission, the patient saw his primary care physician due to increasing pain is left foot associated with the a for mention wound. Apparently, this wound has been present for the last two months and apparently has been progressively worsening which led to the visit with his primary care physician he was is prescribed oral antibiotic therapy and subsequently referred to Podiatry for further evaluation and therapy given the concern that further intervention may be required to definitively treat this condition. He saw Podiatry yesterday and a incision and drainage was performed in the office but there was concern for deeper infection a
[2020-02-05 20:37] LABS: Glucose Point of Care 79 (65-105)
[2020-02-05] MEDS: PANTOPRAZOLE 40 MG TABLET PO (20:43)
[2020-02-05 22:00] VITALS: BP 106/72; PULSE 101; RESP 16; TEMP 36.1; O2SAT 96
[2020-02-06] VITALS (14 sets, daily range): BP systolic 80–119; BP diastolic 51–84; PULSE 14–87; RESP 12–92; TEMP 35.6–36.1; O2SAT 72–98; BMI 30.8
--- NOTE | 2020-02-06 00:26 | PC.NURSE ---
pt 2100 dose of heparin not given, pt having surgery on 02/07/2020
[2020-02-06 05:56] LABS: Basophils Percent Auto 0.3 % (0.2-1.2); Eosinophils Absolute Auto 0.2 K/mm3 (0-0.3); Eosinophils Percent Auto 1.6 % (0-4.4); Hematocrit 33.7 % (42.0-52.0); Hemoglobin 10.7 g/dL (14.0-18.0); Immature Granulocyte Absolute 0.08 K/mm3 (0.00-0.031); Immature Granulocyte Percent A 0.6 % (0-0.5); Lymphocytes Absolute Auto 1.77 K/mm3 (0.9-3.2); Lymphocytes Percent Auto 13.8 % (18.3-44.2); Mean Corpuscular HGB Conc 31.8 g/dl (32-36); Mean Corpuscular Hemoglobin 23.9 pg (26-34); Mean Corpuscular Volume 75.4 fl (80-100); Mean Platelet Volume 9.4 fl (7.4-10.4); Monocytes Absolute Auto 1.2 K/mm3 (0.1-0.6); Neutrophils Absolute Auto 9.6 K/mm3 (1.3-6.7); Neutrophils Percent Auto 74.7 % (45.5-73.1); Platelet Count Result 482 k/mm3 (150-375); Red Blood Count 4.47 M/mm3 (4.6-6.20); Red Cell Distribution Width 14.2 % (11.5-14.5); White Blood Count 12.8 K/mm3 (4.5-10.0)
[2020-02-06 06:23] LABS: Blood Urea Nitrogen 67 mg/dL (9-20); Calcium 8.7 mg/dL (8.4-10.2); Carbon Dioxide 18 mmol/L (22-30); Chloride 100 mmol/L (98-107); Estimated CRCL calculation 11 ml/min; Estimated Glomerular Filt Rate 6; Glucose 95 mg/dL (75-110); Potassium 3.8 mmol/L (3.4-5.0); Sodium 134 mmol/L (137-145)
[2020-02-06 06:45] LABS: Creatinine Urine 46.6 mg/dL
[2020-02-06 07:19] LABS: Sodium Urine Random 20 meq/L
[2020-02-06 07:42] LABS: Total Protein Urine Random 321 mg/dL
--- NOTE | 2020-02-06 08:14 | PCOTNOTE ---
Hold OT evaluation until after surgery per physician.
[2020-02-06] MEDS: FAMOTIDINE 20 MG TABLET PO (08:31)
[2020-02-06] MEDS: GABAPENTIN 300 MG CAPSULE PO (08:31)
[2020-02-06] MEDS: CHLORHEXIDINE GLUCONATE 4% SOL 120 ML BTL 1 APPLIC TOPICAL (08:32)
--- NOTE | 2020-02-06 08:40 | WPDPN ---
Progress Note: A&P Additional Plan Osteomyelitis of left hallux and first metatarsal- Patient is scheduled for partial first ray resection left foot 2pm 02/06/20. Exam Extrem: Ankle/foot/toe images: 1. ulcer to left foot unchanged. Objective Data Vital Signs Vital Signs: Vital Signs - 24 hr 02/05/20 09:13 02/05/20 14:00 02/05/20 22:00 Temperature 36.8 C 36.1 C L Pulse Rate 80 85 101 H Respiratory Rate 18 16 Blood Pressure 100/70 106/72 Pulse Oximetry 100 96 02/06/20 06:00 Temperature 36.1 C L Pulse Rate 87 Respiratory Rate 16 Blood Pressure 114/74 Pulse Oximetry 97 Intake/Output Intake/Output: Intake & Output 02/03/20 02/04/20 02/05/20 02/06/20 23:59 23:59 23:59 23:59 Intake Total 880 2190 250 Output Total 1300 350 Balance 880 890 -100 Meds/Results Medications: Active Medications Generic Name Dose Route Start Last Admin Trade Name Freq PRN Reason Stop Dose Admin Amlodipine Besylate 10 mg 02/05/20 09:00 02/05/20 09:11 Norvasc PO 10 mg DAILY ALEX Administration Chlorhexidine Gluconate 1 applic 02/06/20 09:00 02/06/20 08:32 Hibiclens TOPICAL 02/06/20 09:01 1 applic ONCE ONE Administration Dextrose 12.5 gm 02/04/20 16:06 Dextrose 50% Syringe IV PUSH PRN PRN Hypoglycemia Protocol Famotidine 20 mg 02/05/20 09:00 02/06/20 08:31 Pepcid PO 20 mg DAILY ALEX Administration Fenofibrate 145 mg 02/05/20 09:00 02/05/20 09:11 Tricor PO 145 mg DAILY ALEX Administration Gabapentin 300 mg 02/04/20 17:00 02/06/20 08:31 Neurontin PO 300 mg TID ALEX Administration Gemfibrozil 600 mg 02/05/20 09:00 02/05/20 09:11 Lopid PO 600 mg DAILY ALEX Administration Glucagon 1 mg 02/04/20 16:06 Glucagon For Inj IM PRN PRN Hypoglycemia Protocol Glucose 15 gm 02/04/20 16:06 Glutose 15 PO PRN PRN Hypoglycemia Protocol Heparin Sodium (Porcine) 5,000 units 02/04/20 21:00 02/05/20 20:40 Heparin Sodium SUB-Q Not Given Q12HR [facility] Dextrose 1,000 mls @ 100 mls/hr 02/04/20 16:06 Dextrose 5% 1,000 Ml IVPB PRN PRN Hypoglycemia Protocol Piperacillin Sod/Tazobactam Sod 2.25 gm in 50 mls @ 100 mls/hr 02/05/20 12:45 02/06/20 05:31 Zosyn 2.25 Gm/D5w 50 Ml IVPB 100 mls/hr Q6HR ALEX Administration Insulin Aspart 2 - 5 units 02/04/20 17:00 02/06/20 08:21 Novolog SUB-Q Not Given TIDWM [facility] Protocol Insulin Detemir 44 units 02/04/20 17:00 02/06/20 08:26 Levemir SUB-Q Not Given BID [facility] Metformin HCl 1,000 mg 02/05/20 09:00 02/06/20 08:26 Glucophage PO Not Given DAILY [facility] Metoprolol Succinate 100 mg 02/05/20 09:00 02/05/20 09:13 Toprol Xl PO 100 mg DAILY [facility] Administration Pantoprazole Sodium 40 mg 02/04/20 21:00 02/05/20 20:43 Protonix PO 40 mg HS [facility] Administration Pravastatin Sodium 80 mg 02/05/20 09:00 02/05/20 09:12 Pravastatin Sodium PO 80 mg DAILY [facility] Administration Valsartan 160 mg 02/05/20 09:00 02/05/20 09:12 Diovan PO 160 mg DAILY [facility] Administration Venlafaxine HCl 75 mg 02/04/20 17:00 02/05/20 17:03 Effexor PO 75 mg BID [facility] Administration Venlafaxine HCl 25 mg 02/04/20 17:00 02/05/20 17:03 Effexor PO 25 mg BID ALEX Administration Radiology Results: ITS Impressions Duplex Scan Lower Extremity Artery 02/04/20 15:46 IMPRESSION: 1. Normal lower extremity arterial Doppler velocities. 2. Monophasic left lower extremity velocities below SFA. Renal Ultrasound 02/05/20 11:04 IMPRESSION: 1. Normal kidneys without hydronephrosis. Foot MRI 02/05/20 11:13 IMPRESSION: 1. Osteomyelitis involving first metatarsal and first proximal phalanx. Labs Labs: Laboratory Results - last 24 hr 02/05/20 02/05/20 02/05/20 11:38 17:01 20:11 WBC RBC Hgb Hct MCV MCH MCHC RDW Pl
[2020-02-06 09:00] LABS: Glucose Point of Care 128 (65-105)
[2020-02-06] MEDS: PHARMACIST COMMUNICATION ORDER 1 EACH XX (09:01)
--- NOTE | 2020-02-06 10:43 | PC.NURSE ---
Spoke with Dr. Glass regarding patient procedure today. Per Dr. Glass general anesthesia is contraindicated due to patients cardiac history. Per Maria Luisa notify anesthesiologist and give them his phone number for any questions they may have. Spoke with JESENIA Valverde in surgery. Per JESENIA Valverde will notify anesthesiologist and relay phone number.
--- NOTE | 2020-02-06 11:30 | PM.IMPN ---
Progress Note: A&P Assessment and Plan (1) Diabetic foot ulcer: Code(s): E11.621 - Type 2 diabetes mellitus with foot ulcer; L97.509 - Non-pressure chronic ulcer of other part of unspecified foot with unspecified severity Status: Acute Assessment and Plan: 02/06/20 11:30 Pankaj Bautista is a 54 year old male with history of uncontrolled diabetes with last hemoglobin A1c of 10.1, moderate to severe aortic stenosis and chronic kidney disease, it is for last 2 months he has been having pain in his left foot, patient is seen by his primary care doctor and started the patient on doxycycline his symptoms were not improving, he had difficulty weight-bearing and ambulating was seen by sas bi developer on 02/03 and had I and D, surgeon noticed the patient has necrosis of the wound and suspect the patient may have osteomyelitis to further evaluate we were asked to admit the patient, started patient on vancomycin empirically on 02/03, patient be seen by Dr. Henriquez today started patient on Zosyn for acute OM 1st metatarsal and phalanx, patient will need IV abx for 6 weeks, recommended gordo, patient was seen by Dr. Martin his sas bi developer orderd MRI of foot which conmfired that patient has Osteomyelitis involving first metatarsal and first proximal phalanx and he will do surgery of the foot on 02/05, metal sprayer production seen the patient does not suspect PVD rather patient has DM foot ulcer and patient has moderate oartic stenosis, and does not recommend general anesthesia for the surgery, patient with CKD most likely 2/2 to long standing uncontrolled DM, renal US did not show any pathalogy, we have consulted Dr. Colindres for futher evaluation and recommendations, today patient stats he is feeling litter better, denies any fever or chills, he is scheduled for surgery today, however he has moderate aortic stenosis, and may complication with general anesthesia, Dr. Martinez will discuss with the surgeon and further recommendation to follow will start the PT OT after surgery will consult personal development educator for further recommendation (2) Type 2 diabetes mellitus with hyperglycemia: Code(s): E11.65 - Type 2 diabetes mellitus with hyperglycemia Status: Acute Assessment and Plan: Will continue current regimen will have personal development educator evaluate the patient (3) Chronic kidney disease: Code(s): N18.9 - Chronic kidney disease, unspecified Status: Acute Assessment and Plan: Patient on acute on chronic kidney disease will gently hydrate the patient monitor kidney function if needed will will consult paying teller (4) Peripheral vascular disease: Onset Date: Unknown Code(s): I73.9 - Peripheral vascular disease, unspecified Status: Acute Assessment and Plan: Patient is seen by metal sprayer production and workup is in progress further recommendation to follow (5) Essential (primary) hypertension: Code(s): I10 - Essential (primary) hypertension Status: Acute Assessment and Plan: Will continue home regimen and monitor (6) Aortic valve stenosis: Code(s): I35.0 - Nonrheumatic aortic (valve) stenosis Status: Acute Assessment and Plan: Patient with history of moderate to severe aortic stenosis patient is seen by metal sprayer production and further recommendation to follow Subjective Date/time seen: 02/06/20 11:30 Pankaj Bautista is a 54 year old male with history of uncontrolled diabetes with last hemoglobin A1c of 10.1, moderate to severe aortic stenosis and chronic kidney disease, it is for last 2 months he has been having pain in his left foot, patient is seen by his primary care doctor and started the patient on doxycycline his symptoms were not improving, he had difficulty weight-bearing and ambulating was seen by sas bi developer on 02/03 and had I and D, surgeon noticed the patient has necrosis of the wound and suspect the patient may have osteomyelitis to further evaluate we were asked to admit th
[2020-02-06 12:00] LABS: Glucose Point of Care 82 (65-105)
--- NOTE | 2020-02-06 12:16 | PM.PNNEP ---
Progress Note: A&P Assessment and Plan (1) VLAD (acute kidney injury): Code(s): N17.9 - Acute kidney failure, unspecified Status: Acute Assessment and Plan: multifactorial etiology: - acute infection (DM wound + osteomyelitis) - volume depletion (pre-renal urine lytes) - concurrent use of valsartan and metformin - relative hypotension -- systolic BPs usually run 130 - 150s from previous hospitalization holding ARB and metformin at this time optimize hemodynamics as tolerated trial of IVFs renal ultrasound normal follow trend of repeat labs and UOP (2) Chronic kidney disease: Code(s): N18.9 - Chronic kidney disease, unspecified Status: Chronic Assessment and Plan: baseline creatinine runs ~ 2.0 - 2.5mg/dl based on outpatient evaluation - this is due to diabetes and hypertension - known to have nephrotic range proteinuria (3) Acute osteomyelitis involving ankle and foot: Code(s): M86.179 - Other acute osteomyelitis, unspecified ankle and foot Status: Acute Assessment and Plan: as demonstrated by MRI of left foot Podiatry following plan surgical intervention (4) Essential (primary) hypertension: Code(s): I10 - Essential (primary) hypertension Status: Acute Assessment and Plan: running lower than baseline holding BP medications follow trend of hemodynamics Will continue to follow. Subjective Date/time seen: 02/06/20 12:16 Feels reasonably well at this time; noted plans for surgery on left foot this afternoon; no other acute issues noted; no events overnight or earlier this AM. Exam Narrative: Exam Narrative: General: WD/WN male in NAD Heart: normal S1 and S2; no rub Lungs: clear to auscultation Abdomen: soft, nontender, nondistended, positive bowel sounds Extremities: no cyanosis or clubbing; no edema Skin: left foot with dressings in place Objective Data Vital Signs Vital Signs: Vital Signs Temp Pulse Resp BP Pulse Ox 02/06/20 06:00 36.1 C L 87 16 114/74 97 02/05/20 22:00 36.1 C L 101 H 16 106/72 96 02/05/20 14:00 36.8 C 85 18 100/70 100 Intake/Output Intake/Output: Intake & Output 02/03/20 02/04/20 02/05/20 02/06/20 23:59 23:59 23:59 23:59 Intake Total 880 2190 300 Output Total 1300 350 Balance 880 890 -50 Meds/Results Medications: Active Medications Generic Name Dose Route Start Last Admin Trade Name Freq PRN Reason Stop Dose Admin Amlodipine Besylate 10 mg 02/05/20 09:00 02/05/20 09:11 Norvasc PO 10 mg DAILY ALEX Administration Dextrose 12.5 gm 02/04/20 16:06 Dextrose 50% Syringe IV PUSH PRN PRN Hypoglycemia Protocol Famotidine 20 mg 02/05/20 09:00 02/06/20 08:31 Pepcid PO 20 mg DAILY ALEX Administration Fenofibrate 145 mg 02/05/20 09:00 02/05/20 09:11 Tricor PO 145 mg DAILY ALEX Administration Gabapentin 300 mg 02/04/20 17:00 02/06/20 08:31 Neurontin PO 300 mg TID ALEX Administration Gemfibrozil 600 mg 02/05/20 09:00 02/05/20 09:11 Lopid PO 600 mg DAILY ALEX Administration Glucagon 1 mg 02/04/20 16:06 Glucagon For Inj IM PRN PRN Hypoglycemia Protocol Glucose 15 gm 02/04/20 16:06 Glutose 15 PO PRN PRN Hypoglycemia Protocol Heparin Sodium (Porcine) 5,000 units 02/04/20 21:00 02/06/20 10:04 Heparin Sodium SUB-Q Not Given Q12HR ALEX Dextrose 1,000 mls @ 100 mls/hr 02/04/20 16:06 Dextrose 5% 1,000 Ml IVPB PRN PRN Hypoglycemia Protocol Piperacillin Sod/Tazobactam Sod 2.25 gm in 50 mls @ 100 mls/hr 02/05/20 12:45 02/06/20 12:08 Zosyn 2.25 Gm/D5w 50 Ml IVPB 100 mls/hr Q6HR ALEX Administration Insulin Aspart 2 - 5 units 02/04/20 17:00 02/06/20 12:08 Novolog SUB-Q Not Given TIDWM [facility] Protocol Insulin Detemir 44 units 02/04/20 17:00 02/06/20 08:26
--- NOTE | 2020-02-06 12:48 | PC.NURSE ---
To OR per bed, IV intact.
[2020-02-06] MEDS: LACTATED RINGERS 1,000 ML 30 ML IV CONT (12:50)
--- NOTE | 2020-02-06 13:12 | WPDANESEPPF ---
Anes - Initial Pre Proc Eval Procedure: Operation Date: 02/06/20 14:00 Proposed Procedures p Partial First Ray Resection Left Foot - Kendall Garcia JR, MD s Insertion Wright Catheter With Fluoroscopy - Darryl Rosario MD Date/Time: 02/06/20 13:12 Surgeon: Kenan Lim MD Pre Op Diagnosis: Cellulitis Patient Data Age: 54 Gender: M Height: 5 ft 10 in Weight: 97.5 kg Last Vital Signs Temp 96.9 F L 02/06/20 06:00 Pulse 87 02/06/20 06:00 Resp 16 02/06/20 06:00 BP 114/74 02/06/20 06:00 Pulse Ox 97 02/06/20 06:00 Allergies Allergy/AdvReac Type Severity Reaction Status Date / Time No Known Allergies Allergy Verified 02/04/20 12:40 Home Medications Medication Instructions Recorded Confirmed Type amlodipine 10 mg PO DAILY 08/30/19 02/04/20 History gemfibrozil 600 mg PO DAILY 08/30/19 02/04/20 History metformin 1,000 mg PO DAILY 08/30/19 02/04/20 History pantoprazole 40 mg PO HS 08/30/19 02/04/20 History pravastatin 80 mg PO DAILY 08/30/19 02/04/20 History ranitidine HCl 150 mg PO DAILY 08/30/19 02/04/20 History venlafaxine 100 mg PO BID 08/30/19 02/04/20 History fenofibrate micronized 134 mg 134 mg PO DAILY 09/11/19 02/04/20 History capsule gabapentin 300 mg capsule 300 mg PO TID 09/11/19 02/04/20 History pen needle, diabetic 31 gauge x #30 each 09/11/19 02/04/20 Rx /16 sildenafil 100 mg tablet 100 mg PO DAILY PRN 09/11/19 02/04/20 History alogliptin 25 mg tablet 12.5 mg PO DAILY 09/16/19 02/05/20 History metoprolol succinate 100 mg 100 mg PO DAILY 11/12/19 02/04/20 History capsule sprinkle, ext. release 24 hr insulin detemir U-100 100 unit/mL 44 unit SUB-Q BID #30 ml 01/01/20 02/04/20 Rx subcutaneous solution insulin syringe-needle U-100 0.5 #200 each 01/01/20 02/04/20 Rx mL 29 gauge x 1/2 valsartan 160 mg tablet 160 mg PO DAILY #90 tablet 01/30/20 02/04/20 Rx doxycycline hyclate 100 mg tablet 100 mg PO DAILY #28 tablet 02/03/20 02/04/20 Rx Laboratory Tests 02/05/20 02/05/20 02/06/20 17:01 20:11 04:57 WBC 12.8 K/mm3 H K/mm3 (4.5-10.0) RBC 4.47 M/mm3 L M/mm3 (4.6-6.20) Hgb 10.7 g/dL L g/dL (14.0-18.0) Hct 33.7 % L % (42.0-52.0) MCV 75.4 fl L fl (80-100) MCH 23.9 pg L pg (26-34) MCHC 31.8 g/dl L g/dl (32-36) RDW 14.2 % % (11.5-14.5) Plt Count 482 k/mm3 H k/mm3 (150-375) MPV 9.4 fl fl (7.4-10.4) Immature Gran % (Auto) 0.6 % H % (0-0.5) Neut % (Auto) 74.7 % H % (45.5-73.1) Lymph % (Auto) 13.8 % L % (18.3-44.2) [place]wood % (Auto) 9.0 % H % (2.6-8.5) Eos % (Auto) 1.6 % % (0-4.4) Baso % (Auto) 0.3 % % (0.2-1.2) Lymph # (Auto) 1.77 K/mm3 K/mm3 (0.9-3.2) [place]wood # (Auto) 1.2 K/mm3 H K/mm3 (0.1-0.6) Eos # (Auto) 0.2 K/mm3 K/mm3 (0-0.3) Baso # (Auto) 0.0 K/mm3 K/mm3 (0.0-0.1) Abs Immat Gran (auto) 0.08 K/mm3 H K/mm3 (0.00-0.031) Absolute Neuts (auto) 9.6 K/mm3 H K/mm3 (1.3-6.7) Absolute Nucleated RBC 0.0 K/mm3 K/mm3 (0.0-0.012) Nucleated RBC % 0.0 % % (0.0-0.2) Sodium Potassium Chloride Carbon Dioxide BUN Creatinine Estim Creat Clear Calc Estimated GFR Glucose POC Capillary Glucose 70 mg/dl mg/dl 79 mg/dl mg/dl (65-105) (65-105) Calcium Urine Eosinophils Ur Random Creatinine U Random Total Protein Ur Random Sodium Ur Random Chloride U Random Chloride/Creat Urine Creatinine 02/06/20 02/06/20 02/06/20 04:57 05:29 05:29 WBC RBC Hgb Hct MCV MCH MCHC RDW Plt Count
--- NOTE | 2020-02-06 13:22 | PM.PROC ---
Procedure Note - Detailed Date of procedure: 02/06/20 Pre-op diagnosis: Osteomyelitis foot Inadequate venous access for long-term antibiotic therapy Post-op diagnosis: same Procedure performed: Placement left subclavian tunneled Wright catheter under fluoroscopy Description of procedure: The patient was taken to surgery and IV sedation was administered. The left subclavian and left neck areas were prepped and draped. The proposed path of the Wright catheter was laid out on the subclavian skin. Local anesthetic was infiltrated under the left clavicle. A single puncture was used to cannulate the left subclavian vein. The guidewire passed readily into the superior vena cava. Position of the guidewire was verified by C-arm fluoroscopy. The Wright catheter was tunneled from the exit site back to the area of the subclavian access. One counter incision was required in tunneling the Wright catheter back to the subclavian vein site. Fluoroscopy was then used to measure the length of catheter that would be needed. The Wright catheter was cut to the appropriate length. An introducer and sheath were then passed over the guidewire and into the superior vena cava. The introducer and guidewire were removed. The Wright catheter was passed through the sheath and into the superior vena cava. Its position was verified by fluoroscopy. The sheath was removed. Position of the Wright catheter was again checked and looked good. It was in the distal superior vena cava. The Wright catheter was then sutured to the skin with 3 0 nylon suture. The Wright catheter was checked. It aspirated blood and flushed easily with heparin. Final flush of heparin was administered. The wounds was closed with subcuticular 4 O Vicryl. The the subclavian and counter incision wounds was dressed with Exofin surgical adhesive. Wright exit site was dressed with gauze and a Tegaderm. The patient was awakened and taken to recovery in good condition. Implants: Tunneled Wright catheter Anesthesia: MAC and local (0.5% Marcaine with epinephrine) Surgeon: Darryl Rosario MD Motorcycle Repairer: Lidya BUNDY Estimated blood loss (mL): 5 Drains: No Packing: No Pathology: none sent Complications: None Condition: stable Disposition: no change (Dr. Garcia proceeded then with left foot surgery for osteomyelitis) Findings: Tip of the Wright catheter in the distal superior vena cava.
[2020-02-06] MEDS: SODIUM CHLORIDE 0.9% IV 500 ML 30 ML IV CONT ×2 (13:28→16:09)
[2020-02-06] MEDS: ceFAZolin 2 GM/D5W 50 ML 2 GM/50 ML BAG IVPB (13:30)
[2020-02-06] MEDS: HEPARIN SODIUM 5,000 UNITS/ML VIAL 5000 UNITS IRRIGATION (13:30)
--- NOTE | 2020-02-06 13:51 | PCPTNOTE ---
Unable to therapy evaluation this date due to patient in surgery.
[2020-02-06] MEDS: LIDOCAINE HCL 2% LOCAL INJ 20 ML VIAL 10 ML INFILTRATE (14:49)
--- NOTE | 2020-02-06 15:07 | P.PN_ITS ---
Objective Data Vital Signs Vital Signs: Vital Signs - 24 hr 02/05/20 22:00 02/06/20 06:00 02/06/20 12:55 Temperature 36.1 C L 36.1 C L 36.0 C L Pulse Rate 101 H 87 85 Respiratory Rate 16 16 16 Blood Pressure 106/72 114/74 119/84 Pulse Oximetry 96 97 97 Intake/Output Intake/Output: Intake & Output 02/03/20 02/04/20 02/05/20 02/06/20 23:59 23:59 23:59 23:59 Intake Total 880 2190 450 Output Total 1300 350 Balance 880 890 100 Meds/Results Medications: Active Medications Generic Name Dose Route Start Last Admin Trade Name Freq PRN Reason Stop Dose Admin Amlodipine Besylate 10 mg 02/05/20 09:00 02/06/20 14:44 Norvasc PO Not Given DAILY [facility] Dextrose 12.5 gm 02/04/20 16:06 Dextrose 50% Syringe IV PUSH PRN PRN Hypoglycemia Protocol Famotidine 20 mg 02/05/20 09:00 02/06/20 08:31 Pepcid PO 20 mg DAILY [facility] Administration Fenofibrate 145 mg 02/05/20 09:00 02/06/20 14:44 Tricor PO Not Given DAILY [facility] Fentanyl Citrate 25 mcg 02/06/20 13:19 Sublimaze IV PUSH Q2M PRN Pain Gabapentin 300 mg 02/04/20 17:00 02/06/20 14:45 Neurontin PO Not Given TID [facility] Gemfibrozil 600 mg 02/05/20 09:00 02/06/20 14:44 Lopid PO Not Given DAILY [facility] Glucagon 1 mg 02/04/20 16:06 Glucagon For Inj IM PRN PRN Hypoglycemia Protocol Glucose 15 gm 02/04/20 16:06 Glutose 15 PO PRN PRN Hypoglycemia Protocol Heparin Sodium (Porcine) 5,000 units 02/04/20 21:00 02/06/20 10:04 Heparin Sodium SUB-Q Not Given Q12HR [facility] Dextrose 1,000 mls @ 100 mls/hr 02/04/20 16:06 Dextrose 5% 1,000 Ml IVPB PRN PRN Hypoglycemia Protocol Piperacillin Sod/Tazobactam Sod 2.25 gm in 50 mls @ 100 mls/hr 02/05/20 12:45 02/06/20 12:38 Zosyn 2.25 Gm/D5w 50 Ml IVPB Infused Q6HR ALEX Infusion Sodium Chloride 1,000 mls @ 75 mls/hr 02/06/20 12:25 Normal Saline Iv IV CONT .[id number] ALEX Sodium Chloride 500 mls @ 30 mls/hr 02/06/20 13:25 02/06/20 13:28 Normal Saline Iv IV CONT 30 mls/hr .[id number] ALEX Administration Lactated Ringer's 1,000 mls @ 30 mls/hr 02/06/20 13:30 02/06/20 13:27 Lr - Lactated Ringers Iv IV CONT Infused .Q24H ALEX Infusion Insulin Aspart 2 - 5 units 02/04/20 17:00 02/06/20 12:08 Novolog SUB-Q Not Given TIDWM [facility] Protocol Insulin Detemir 44 units 02/04/20 17:00 02/06/20 08:26 Levemir SUB-Q Not Given BID [facility] Metformin HCl 1,000 mg 02/05/20 09:00 02/06/20 08:26 Glucophage PO Not Given DAILY [facility] Metoprolol Succinate 100 mg 02/05/20 09:00 02/06/20 14:44 Toprol Xl PO Not Given DAILY [facility] Ondansetron HCl 4 mg 02/06/20 13:19 Zofran Inj IV PUSH ONCE PRN Nausea Pantoprazole Sodium 40 mg 02/04/20 21:00 02/05/20 20:43 Protonix PO 40 mg HS ALEX Administration P
--- NOTE | 2020-02-06 15:07 | WPDPN ---
Objective Data Vital Signs Vital Signs: Vital Signs - 24 hr 02/05/20 22:00 02/06/20 06:00 02/06/20 12:55 Temperature 36.1 C L 36.1 C L 36.0 C L Pulse Rate 101 H 87 85 Respiratory Rate 16 16 16 Blood Pressure 106/72 114/74 119/84 Pulse Oximetry 96 97 97 Intake/Output Intake/Output: Intake & Output 02/03/20 02/04/20 02/05/20 02/06/20 23:59 23:59 23:59 23:59 Intake Total 880 2190 450 Output Total 1300 350 Balance 880 890 100 Meds/Results Medications: Active Medications Generic Name Dose Route Start Last Admin Trade Name Freq PRN Reason Stop Dose Admin Amlodipine Besylate 10 mg 02/05/20 09:00 02/06/20 14:44 Norvasc PO Not Given DAILY [facility] Dextrose 12.5 gm 02/04/20 16:06 Dextrose 50% Syringe IV PUSH PRN PRN Hypoglycemia Protocol Famotidine 20 mg 02/05/20 09:00 02/06/20 08:31 Pepcid PO 20 mg DAILY [facility] Administration Fenofibrate 145 mg 02/05/20 09:00 02/06/20 14:44 Tricor PO Not Given DAILY [facility] Fentanyl Citrate 25 mcg 02/06/20 13:19 Sublimaze IV PUSH Q2M PRN Pain Gabapentin 300 mg 02/04/20 17:00 02/06/20 14:45 Neurontin PO Not Given TID [facility] Gemfibrozil 600 mg 02/05/20 09:00 02/06/20 14:44 Lopid PO Not Given DAILY [facility] Glucagon 1 mg 02/04/20 16:06 Glucagon For Inj IM PRN PRN Hypoglycemia Protocol Glucose 15 gm 02/04/20 16:06 Glutose 15 PO PRN PRN Hypoglycemia Protocol Heparin Sodium (Porcine) 5,000 units 02/04/20 21:00 02/06/20 10:04 Heparin Sodium SUB-Q Not Given Q12HR ALEX Dextrose 1,000 mls @ 100 mls/hr 02/04/20 16:06 Dextrose 5% 1,000 Ml IVPB PRN PRN Hypoglycemia Protocol Piperacillin Sod/Tazobactam Sod 2.25 gm in 50 mls @ 100 mls/hr 02/05/20 12:45 02/06/20 12:38 Zosyn 2.25 Gm/D5w 50 Ml IVPB Infused Q6HR ALEX Infusion Sodium Chloride 1,000 mls @ 75 mls/hr 02/06/20 12:25 Normal Saline Iv IV CONT .[id number] ALEX Sodium Chloride 500 mls @ 30 mls/hr 02/06/20 13:25 02/06/20 13:28 Normal Saline Iv IV CONT 30 mls/hr .[id number] ALEX Administration Lactated Ringer's 1,000 mls @ 30 mls/hr 02/06/20 13:30 02/06/20 13:27 Lr - Lactated Ringers Iv IV CONT Infused .Q24H ALEX Infusion Insulin Aspart 2 - 5 units 02/04/20 17:00 02/06/20 12:08 Novolog SUB-Q Not Given TIDWM [facility] Protocol Insulin Detemir 44 units 02/04/20 17:00 02/06/20 08:26 Levemir SUB-Q Not Given BID [facility] Metformin HCl 1,000 mg 02/05/20 09:00 02/06/20 08:26 Glucophage PO Not Given DAILY [facility] Metoprolol Succinate 100 mg 02/05/20 09:00 02/06/20 14:44 Toprol Xl PO Not Given DAILY [facility] Ondansetron HCl 4 mg 02/06/20 13:19 Zofran Inj IV PUSH ONCE PRN Nausea Pantoprazole Sodium 40 mg 02/04/20 21:00 02/05/20 20:43 Protonix PO 40 mg HS [facility] Administration Pravastatin Sodium 80 mg 02/05/20 09:00 02/06/20 14:44 Pravastatin Sodium PO Not Given DAILY [facility] Valsartan 160 mg 02/05/20 09:00 02/05/20 09:12 Diovan PO 160 mg DAILY [facility] Administration Venlafaxine HCl 75 mg 02/04/20 17:00 02/06/20 10:04 Effexor PO Not Given BID [facility] Venlafaxine HCl 25 mg 02/04/20 17:00 02/06/20 10:04 Effexor PO Not Given BID [facility] Radiology Results: ITS Impressions Duplex Scan Lower Extremity Artery 02/04/20 15:46 IMPRESSION: 1. Normal lower extremity arterial Doppler velocities. 2. Monophasic left lower extremity velocities below SFA. Renal Ultrasound 02/05/20 11:04 IMPRESSION: 1. Normal kidneys without hydronephrosis. Foot MRI 02/05/20 11:13 IMPRESSION: 1. Osteomyelitis involving first metatarsal and first proximal phalanx. Central Venous Line 02/06/20 14:27 IMPRESSION: 1. Partially imaged left subclavian catheter. Please refer to procedure note for full details. Labs Labs: Laboratory Results
--- NOTE | 2020-02-06 15:43 | SUR.OPER ---
DR. GARCIA OUT AT 1058
--- NOTE | 2020-02-06 15:44 | SUR.OPER ---
DR. GARCIA OUT AT 1417, DEMETRIA START AT 1443
[2020-02-06 15:45] LABS: Glucose Point of Care 103 (65-105)
[2020-02-06] MEDS: PHENYLEPHRINE 1,000 MCG/10 ML SYRINGE 200 MCG IV PUSH (15:49)
[2020-02-06] MEDS: ONDANSETRON INJ 4 MG/2 ML VIAL IV PUSH (16:25)
--- NOTE | 2020-02-06 16:46 | SUR.PHASEI ---
1540 SBAR FAXED FLOOR NOTIFIED
--- NOTE | 2020-02-06 16:47 | PM.OP ---
Procedure Note - Brief Procedure Note - Brief Date of procedure: 02/06/20 Pre-op diagnosis: Osteomyelitis foot Post-op diagnosis: same Procedure performed: Partial first ray resection left foot Anesthesia: GLMA Surgeon: Kendall Garcia JR, DPM Estimated blood loss (mL): 50 Complications: No immediate complications Condition: stable Disposition: same day
[2020-02-06] MEDS: SODIUM CHLORIDE 0.9% IV 1,000 ML 75 ML IV CONT (17:24)
--- NOTE | 2020-02-06 17:25 | PC.NURSE ---
Returned from OR per bed. IV intact.
[2020-02-06 17:52] LABS: Glucose Point of Care 96 (65-105)
[2020-02-06] MEDS: HEPARIN SODIUM 5,000 UNITS/ML VIAL 5000 UNITS SUB-Q (20:39)
[2020-02-06] MEDS: PANTOPRAZOLE 40 MG TABLET PO (20:39)
[2020-02-06 21:13] LABS: Glucose Point of Care 91 (65-105)
[2020-02-07 03:10] VITALS: BP 120/79; PULSE 80; RESP 16; TEMP 37.2; O2SAT 98
[2020-02-07 04:52] LABS: Basophils Percent Auto 0.4 % (0.2-1.2); Eosinophils Absolute Auto 0.1 K/mm3 (0-0.3); Eosinophils Percent Auto 1.9 % (0-4.4); Hematocrit 31.5 % (42.0-52.0); Hemoglobin 9.5 g/dL (14.0-18.0); Immature Granulocyte Absolute 0.05 K/mm3 (0.00-0.031); Immature Granulocyte Percent A 0.7 % (0-0.5); Lymphocytes Absolute Auto 1.17 K/mm3 (0.9-3.2); Lymphocytes Percent Auto 15.5 % (18.3-44.2); Mean Corpuscular HGB Conc 30.2 g/dl (32-36); Mean Corpuscular Hemoglobin 23.4 pg (26-34); Mean Corpuscular Volume 77.6 fl (80-100); Mean Platelet Volume 9.6 fl (7.4-10.4); Monocytes Absolute Auto 0.7 K/mm3 (0.1-0.6); Monocytes Percent Auto 8.9 % (2.6-8.5); Neutrophils Absolute Auto 5.5 K/mm3 (1.3-6.7); Neutrophils Percent Auto 72.6 % (45.5-73.1); Platelet Count Result 427 k/mm3 (150-375); Red Blood Count 4.06 M/mm3 (4.6-6.20); Red Cell Distribution Width 14.4 % (11.5-14.5); White Blood Count 7.6 K/mm3 (4.5-10.0)
[2020-02-07 05:12] LABS: Blood Urea Nitrogen 72 mg/dL (9-20); Calcium 8.1 mg/dL (8.4-10.2); Carbon Dioxide 18 mmol/L (22-30); Chloride 105 mmol/L (98-107); Estimated CRCL calculation 10 ml/min; Estimated Glomerular Filt Rate 6; Glucose 152 mg/dL (75-110); Potassium 4.2 mmol/L (3.4-5.0); Sodium 136 mmol/L (137-145)
[2020-02-07] MEDS: SODIUM CHLORIDE 0.9% IV 1,000 ML 75 ML IV CONT ×2 (06:08→20:51)
--- NOTE | 2020-02-07 06:10 | OP_ITS ---
DATE OF PROCEDURE: 02/06/2020 PREOPERATIVE DIAGNOSIS: Osteomyelitis of the left hallux and first metatarsal with septic first metatarsophalangeal joint. POSTOPERATIVE DIAGNOSIS: Osteomyelitis of the left hallux and first metatarsal with septic first metatarsophalangeal joint. PROCEDURE: Partial first ray resection, left foot. PATHOLOGY: Deep wound culture swabs taken intraoperatively and sent for aerobic and anaerobic culture and sensitivities as well as Gram stain, distal first ray sent for gross and histopathology. ANESTHESIA: General LMA with IV sedation and local anesthesia. HEMOSTASIS: Pneumatic ankle tourniquet at 250 mmHg. ESTIMATED BLOOD LOSS: 50 cc. MATERIALS USED: 3-0 Vicryl. INJECTABLES: 20 cc of a 1:1 mixture of 2% lidocaine plain and 0.5% Marcaine plain injected preoperatively. COMPLICATIONS: None. INDICATIONS: The patient is a poorly controlled insulin-dependent diabetic. He has a chronic ulceration present to the first metatarsophalangeal joint to the left foot. Recent MRI diagnosed osteomyelitis with septic first metatarsophalangeal joint. He was consented for a partial first ray resection. PROCEDURE IN DETAIL: Under mild sedation, the patient was brought into the operating room, placed on the operating table in supine position. A pneumatic ankle tourniquet was placed about the patient's left ankle. Following general anesthesia, local anesthesia was obtained about the left foot utilizing 20 cc of a 1:1 mixture of 2% lidocaine plain and 0.5% Marcaine plain. The foot was then scrubbed, prepped, and draped in the usual aseptic manner. An Esmarch bandage was then used to exsanguinate the patient's left foot. The pneumatic ankle tourniquet was then inflated. Surgery began in the following manner. Attention was directed to the dorsal aspect of the first metatarsophalangeal joint to the left foot where a tennis racquet style incision was made starting along the central aspect of the medial shaft of the first metatarsal encompassing the lateral aspect of the base of the hallux and reconnecting the incision back to the medial aspect of the central shaft of the first metatarsal. At this point, a 15 blade was used to perform a full-thickness incision down to the periosteum of the center shaft of the first metatarsal, both medially, dorsally, laterally, and plantarly. After the diaphysis of the first metatarsal was visualized, a sagittal bone saw was used to make a saw bone cut through the central shaft of the first metatarsal. Next, the distal aspect of the first ray was completely freed utilizing a fresh 15 blade. After the distal first metatarsal was resected, it was placed on the operating table and sent for gross and histopathology. Deep wound culture swabs were taken at this point and sent for aerobic and anaerobic culture and sensitivities. The wound site was then flushed with 1 L of sterile saline with the pulse lavage system. All necrotic tissue was debrided utilizing a rongeur until only healthy viable bleeding tissue was noted. All bleeders were ligated and cauterized as necessary. At this point, Surgicel was placed along the amputation site in order to aid with hemostasis. The amputation site was then properly dressed with Adaptic, 4x4s, ABD pad, Kerlix, and Coban. The pneumatic ankle tourniquet was then deflated to the left foot and there was immediate capillary refill to the lesser digits of the left foot. There was no active bleeding present. The patient did very well with the procedure and the anesthesia. He was transferred back to the PACU unit where his vital signs were stable and vascular status was intact to all remaining toes of the left foot. After a period of postoperative monitoring, the patient will be readmitted back to t
[2020-02-07 07:10] VITALS: BP 118/83; PULSE 70; RESP 16; TEMP 36.4; O2SAT 96
[2020-02-07 07:55] LABS: Glucose Point of Care 143 (65-105)
[2020-02-07] MEDS: GABAPENTIN 300 MG CAPSULE PO ×3 (08:45→17:42)
[2020-02-07] MEDS: gemfibroziL 600 MG TABLET PO (08:46)
[2020-02-07] MEDS: PRAVASTATIN SODIUM 20 MG TABLET 80 MG PO (08:46)
[2020-02-07] MEDS: VENLAFAXINE HCL 25 MG TABLET PO ×2 (08:46→17:43)
[2020-02-07] MEDS: AMLODIPINE BESYLATE 5 MG TABLET 10 MG PO (08:46)
[2020-02-07 08:47] VITALS: PULSE 88
[2020-02-07] MEDS: VENLAFAXINE HCL 75 MG TABLET PO ×2 (08:47→17:43)
[2020-02-07] MEDS: METOPROLOL SUCCINATE EXT REL 100 MG TABCR PO (08:47)
[2020-02-07] MEDS: FENOFIBRATE NANOCRYSTALLIZED 145 MG TABLET PO (08:48)
[2020-02-07] MEDS: HEPARIN SODIUM 5,000 UNITS/ML VIAL 5000 UNITS SUB-Q ×2 (08:49→20:51)
[2020-02-07] MEDS: FAMOTIDINE 20 MG TABLET PO (08:49)
[2020-02-07] MEDS: INSULIN DETEMIR 100 UNITS/ML 44 UNITS SUB-Q ×2 (08:57→17:44)
--- NOTE | 2020-02-07 09:53 | PM.PNCARD ---
Progress Note: A&P Assessment and Plan (1) VLAD (acute kidney injury): Code(s): N17.9 - Acute kidney failure, unspecified Status: Acute (2) Acute osteomyelitis involving ankle and foot: Code(s): M86.179 - Other acute osteomyelitis, unspecified ankle and foot Status: Acute Assessment and Plan: s/p surgery which pt tolerated fine Surgery fu (3) Diabetic foot ulcer: Code(s): E11.621 - Type 2 diabetes mellitus with foot ulcer; L97.509 - Non-pressure chronic ulcer of other part of unspecified foot with unspecified severity Status: Acute (4) Type 2 diabetes mellitus with hyperglycemia: Code(s): E11.65 - Type 2 diabetes mellitus with hyperglycemia Status: Acute (5) Bicuspid aortic valve: Code(s): Q23.1 - Congenital insufficiency of aortic valve Status: Acute (6) Essential (primary) hypertension: Code(s): I10 - Essential (primary) hypertension Status: Acute Assessment and Plan: well controlled cont meds (7) Aortic valve stenosis: Code(s): I35.0 - Nonrheumatic aortic (valve) stenosis Status: Acute Assessment and Plan: cont ASA when OK with surgery and 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 Pt feels fine today, he underwent surgery yesterday and tolerated it fine. Review of Systems Review of Systems: All systems reviewed & are unremarkable except as noted in HPI and below Constitutional: Constitutional: Reports as per HPI Eyes: Eyes: Reports as per HPI ENT: Reports system reviewed and no additional complaints, except as documented and Reports as per HPI Cardiovascular: Cardiovascular: Reports as per HPI Respiratory: Respiratory: Reports as per HPI Gastrointestinal: Gastrointestinal: Reports as per HPI Genitourinary: Genitourinary: Reports as per HPI Musculoskeletal: Musculoskeletal: Reports as per HPI Exam Const: General: no acute distress Nutritional Appearance: well nourished Orientation/consciousness: patient oriented x3 HENMT: Head: normal to inspection and atraumatic Ears: hearing grossly normal bilaterally Face and sinus: normal facial exam Eyes: General: appearance normal, both eyes and all related structures Pupils: Equal, round and reactive pupils present EOM: EOMs intact bilaterally Neck: Neck: supple Chest: Chest palpation & inspection: normal inspection of the chest Resp: Effort & Inspection: normal respiratory effort and no respiratory distress Auscultation: clear to auscultation bilaterally Cardio: Jugular venous distension: no JVD Rate: regular rate Heart sounds: S1 normal heart sound present, S2 normal heart sound present and Murmur heart sound present (MAAME) Peripheral pulses: Peripheral pulses 2+ throughout GI: GI Palp: No abdominal tenderness Auscultation: normal bowel sounds Skin: General skin exam: normal color Neuro: General: patient oriented x3 Cranial nerves: Yes Equal, round and reactive pupils present Extrem: General: normal to inspection and no clubbing, cyanosis or edema Left lower extremity: foot (wrapped) Objective Data Vital Signs Vital Signs: Vital Signs - 24 hr 02/06/20 12:55 02/06/20 15:40 02/06/20 15:55 Temperature 36.0 C L 35.9 C L Pulse Rate 85 67 70 Respiratory Rate 16 13 16 Blood Pressure 119/84 80/51 L 94/60 L Pulse Oximetry 97 95 98 02/06/20 16:10 02/06/20 16:25 02/06/20 16:40 Temperature Pulse Rate 71 74 72 Respiratory Rate 18 16 12 Blood Pressure 89/58 L 99/60 L 97/69 L Pulse Oximetry 97 94 95 02/06/20 16:55 02/06/20 17:25 02/06/20 17:40 Temperature 35.7 C L 35.8 C L Pulse Rate 73 70 71 Respiratory Rate 12 16 16 Blood Pressure 96/65 L 96/60 L 92/57 L Pulse Oximetry 94 96 96 02/06/20 18:10 02/06/20 19:10 02/06/20 20:00 Temperature 35.8 C L 35.6 C L Pulse Rate 71 14 L 14 L Respiratory Rate 12 92 H 92 H Blood Press
[2020-02-07 11:10] VITALS: BP 135/86; PULSE 93; RESP 16; TEMP 36.4; O2SAT 98
[2020-02-07 11:33] LABS: Glucose Point of Care 127 (65-105)
--- NOTE | 2020-02-07 11:41 | WPDANESPN ---
Anes - Prog Note Post-Op Date/Time: 02/07/20 11:41 Cardiovascular status: normal Respiratory status: normal Airway patency: baseline Mental status: baseline Post-Op hydration status: normal Vital Signs: Last Vital Signs Temp 36.4 C 02/07/20 11:10 Pulse 93 02/07/20 11:10 Resp 16 02/07/20 11:10 BP 135/86 02/07/20 11:10 Pulse Ox 98 02/07/20 11:10 I/O: Intake & Output 02/06/20 02/07/20 02/07/20 23:59 07:59 15:59 Intake Total 100 1300 360 Output Total 450 325 Balance -350 975 360 Laboratory Tests 02/07/20 04:36 02/07/20 04:36 02/06/20 02/06/20 02/06/20 05:29 11:57 15:42 WBC RBC Hgb Hct MCV MCH MCHC RDW Plt Count MPV Immature Gran % (Auto) Neut % (Auto) Lymph % (Auto) [place] % (Auto) Eos % (Auto) Baso % (Auto) Lymph # (Auto) [place] # (Auto) Eos # (Auto) Baso # (Auto) Abs Immat Gran (auto) Absolute Neuts (auto) Absolute Nucleated RBC Nucleated RBC % Sodium Potassium Chloride Carbon Dioxide BUN Creatinine Estim Creat Clear Calc Estimated GFR Glucose POC Capillary Glucose 82 103 Calcium Urine Eosinophils see below 02/06/20 02/06/20 02/07/20 17:48 20:19 04:36 WBC 7.6 RBC 4.06 L Hgb 9.5 L Hct 31.5 L MCV 77.6 L MCH 23.4 L MCHC 30.2 L RDW 14.4 Plt Count 427 H MPV 9.6 Immature Gran % (Auto) 0.7 H Neut % (Auto) 72.6 Lymph % (Auto) 15.5 L [place] % (Auto) 8.9 H Eos % (Auto) 1.9 Baso % (Auto) 0.4 Lymph # (Auto) 1.17 [place] # (Auto) 0.7 H Eos # (Auto) 0.1 Baso # (Auto) 0.0 Abs Immat Gran (auto) 0.05 H Absolute Neuts (auto) 5.5 Absolute Nucleated RBC 0.0 Nucleated RBC % 0.0 Sodium Potassium Chloride Carbon Dioxide BUN Creatinine Estim Creat Clear Calc Estimated GFR Glucose POC Capillary Glucose 96 91 Calcium Urine Eosinophils 02/07/20 02/07/20 02/07/20 04:36 07:52 11:21 WBC RBC Hgb Hct MCV MCH MCHC RDW Plt Count MPV Immature Gran % (Auto) Neut % (Auto) Lymph % (Auto) [place] % (Auto) Eos % (Auto) Baso % (Auto) Lymph # (Auto) [place] # (Auto) Eos # (Auto) Baso # (Auto) Abs Immat Gran (auto) Absolute Neuts (auto) Absolute Nucleated RBC Nucleated RBC % Sodium 136 L Potassium 4.2 Chloride 105 Carbon Dioxide 18 L BUN 72 H Creatinine 9.70 H Estim Creat Clear Calc 10 Estimated GFR 6 L Glucose 152 H POC Capillary Glucose 143 H 127 H Calcium 8.1 L Urine Eosinophils Microbiology 02/06/20 14:59 Foot Left Anaerobic Culture - Preliminary Post-procedural complaints: none Patient Feedback: Patient satisfied with anesthetic care.
--- NOTE | 2020-02-07 13:56 | PM.PNNEP ---
Progress Note: A&P Assessment and Plan (1) VLAD (acute kidney injury): Code(s): N17.9 - Acute kidney failure, unspecified Status: Acute Assessment and Plan: multifactorial etiology: - acute infection (DM wound + osteomyelitis) - volume depletion (pre-renal urine lytes) - concurrent use of valsartan and metformin - relative hypotension -- systolic BPs usually run 130 - 150s from previous hospitalization holding ARB and metformin at this time optimize hemodynamics as tolerated trial of IVFs -- making urine renal ultrasound normal follow trend of repeat labs and UOP (2) Chronic kidney disease: Code(s): N18.9 - Chronic kidney disease, unspecified Status: Chronic Assessment and Plan: baseline creatinine runs ~ 2.0 - 2.5mg/dl based on outpatient evaluation - this is due to diabetes and hypertension - known to have nephrotic range proteinuria (3) Acute osteomyelitis involving ankle and foot: Code(s): M86.179 - Other acute osteomyelitis, unspecified ankle and foot Status: Acute Assessment and Plan: as demonstrated by MRI of left foot Podiatry following s/p left foot partial first ray resection, left foot. (4) Essential (primary) hypertension: Code(s): I10 - Essential (primary) hypertension Status: Acute Assessment and Plan: running lower than baseline previously - BP doing better at this time slowly improving BP medications with parameters follow trend of hemodynamics Will continue to follow. Subjective Date/time seen: 02/07/20 13:56 Appears to be doing reasonably well; s/p left foot partial first ray resection yesterday and tolerated the procedure reasonably well; unfortunately, kidney function continues to deteriorate. Exam Narrative: Exam Narrative: General: WD/WN male in NAD Heart: normal S1 and S2; no rub Lungs: clear to auscultation Abdomen: soft, nontender, nondistended, positive bowel sounds Extremities: no cyanosis or clubbing; no edema Skin: left foot with dressings in place Objective Data Vital Signs Vital Signs: Vital Signs Temp Pulse Resp BP Pulse Ox 02/07/20 11:10 36.4 C 93 16 135/86 98 02/07/20 08:47 88 02/07/20 07:10 36.4 C 70 16 118/83 96 02/07/20 03:10 37.2 C 80 16 120/79 98 02/06/20 23:10 35.7 C L 85 18 104/66 95 02/06/20 20:00 14 L 92 H 72 L 02/06/20 19:10 35.6 C L 14 L 92 H 101/62 72 L 02/06/20 18:10 35.8 C L 71 12 102/59 L 97 02/06/20 17:40 35.8 C L 71 16 92/57 L 96 02/06/20 17:25 35.7 C L 70 16 96/60 L 96 02/06/20 16:55 73 12 96/65 L 94 02/06/20 16:40 72 12 97/69 L 95 02/06/20 16:25 74 16 99/60 L 94 02/06/20 16:10 71 18 89/58 L 97 02/06/20 15:55 70 16 94/60 L 98 02/06/20 15:40 35.9 C L 67 13 80/51 L 95 Intake/Output Intake/Output: Intake & Output 02/04/20 02/05/20 02/06/20 02/07/20 23:59 23:59 23:59 23:59 Intake Total 880 2190 550 1660 Output Total 1300 800 325 Balance 880 890 -250 1335 Meds/Results Medications: Active Medications Generic Name Dose Route Start Last Admin Trade Name Freq PRN Reason Stop Dose Admin Amlodipine Besylate 10 mg 02/05/20 09:00 02/07/20 08:46 Norvasc PO 10 mg DAILY ALEX Administration Dextrose 12.5 gm 02/04/20 16:06 Dextrose 50% Syringe IV PUSH PRN PRN Hypoglycemia Protocol Famotidine 20 mg 02/05/20 09:00 02/07/20 08:49 Pepcid PO 20 mg DAILY ALEX Administration Fenofibrate 145 mg 02/05/20 09:00 02/07/20 08:48 Tricor PO 145 mg DAILY ALEX Administration Gabapentin 300 mg 02/04/20 17:00 02/07/20 12:18 Neurontin PO 300 mg TID ALEX Administration Gemfibrozil 600 mg 02/05/20 09:00 02/07/20 08:46 Lopid PO 600 mg DAILY ALEX Administration Glucagon 1 mg 02/04/20 16:06 Glucagon For Inj IM PRN PRN Hypoglycemia Protoc
--- NOTE | 2020-02-07 14:06 | PM.IMPN ---
Progress Note: A&P Assessment and Plan (1) Diabetic foot ulcer: Code(s): E11.621 - Type 2 diabetes mellitus with foot ulcer; L97.509 - Non-pressure chronic ulcer of other part of unspecified foot with unspecified severity Status: Acute Assessment and Plan: 02/07/20 14:06 Pankaj Bautista is a 54 year old male with history of uncontrolled diabetes with last hemoglobin A1c of 10.1, moderate to severe aortic stenosis and chronic kidney disease, it is for last 2 months he has been having pain in his left foot, patient is seen by his primary care doctor and started the patient on doxycycline his symptoms were not improving, he had difficulty weight-bearing and ambulating was seen by digital media intern on 02/03 and had I and D, surgeon noticed the patient has necrosis of the wound and suspect the patient may have osteomyelitis to further evaluate we were asked to admit the patient, started patient on vancomycin empirically on 02/03, patient be seen by Dr. Tong today started patient on Zosyn for acute OM 1st metatarsal and phalanx, patient will need IV abx for 6 weeks, recommended caro, patient was seen by Dr. Martin his digital media intern orderd MRI of foot which conmfired that patient has Osteomyelitis involving first metatarsal and first proximal phalanx and he will do surgery of the foot on 02/05, sorting livestock worker seen the patient does not suspect PVD rather patient has DM foot ulcer and patient has moderate oartic stenosis, and does not recommend general anesthesia for the surgery, patient with CKD most likely 2/2 to long standing uncontrolled DM, renal US did not show any pathalogy, we have consulted Dr. Colindres for futher evaluation and recommendations, on 02/05 patient stated he was feeling litter better, denied any fever or chills, he was seen by surgeon and had partial first ray resection, left foot. 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 Tong and had Caro placed by Dr. Rosario on 02/05, Dr. tong is recommending IV antibiotics for 6 week, patient creatinine is rising his baseline creatinine is close to 2 today's creatinine is 9.7, his bilateral kidney ultrasound is normal, his seen by Research Scientist, being gently hydrated, and further workup is in progress may need a kidney biopsy further evaluation further recommendation to follow, patient has uncontrolled diabetes however his hypoglycemic while in the hospital poor appetite long-acting insulin is on hold, will monitor with sliding scale, patient was see dcs engineer on Monday further recommendation to follow (2) Type 2 diabetes mellitus with hyperglycemia: Code(s): E11.65 - Type 2 diabetes mellitus with hyperglycemia Status: Acute Assessment and Plan: Will continue current regimen will have dcs engineer evaluate the patient (3) Chronic kidney disease: Code(s): N18.9 - Chronic kidney disease, unspecified Status: Chronic Assessment and Plan: Patient on acute on chronic kidney disease will gently hydrate the patient monitor kidney function if needed will will consult morning babysitter plan is above (4) Peripheral vascular disease: Onset Date: Unknown Code(s): I73.9 - Peripheral vascular disease, unspecified Status: Acute Assessment and Plan: Patient is seen by sorting livestock worker and workup is in progress further recommendation to follow (5) Essential (primary) hypertension: Code(s): I10 - Essential (primary) hypertension Status: Acute Assessment and Plan: Will continue home regimen and monitor (6) Aortic valve stenosis: Code(s): I35.0 - Nonrheumatic aortic (valve) stenosis Status: Acute Assessment and Plan: Patient with history of moderate to severe aortic stenosis patient is seen by sorting livestock worker and fu
--- NOTE | 2020-02-07 14:40 | WPDINFPN2 ---
Progress Note: A&P Assessment and Plan (1) Acute osteomyelitis involving ankle and foot: Code(s): M86.179 - Other acute osteomyelitis, unspecified ankle and foot Status: Acute Assessment and Plan: 1. Acute OM L 1st MT and proximal phalanx. Polymicrobial on preop culture. Intraop culture in process. 2. Chronic ulcer, plantar 1st MT head 3. DM poor control 4. CRI REC POD # 1 partial ray. PipTazo #3 / 42 days (through 03/17). Glycemic control underway. Wright in place, ok discharge planning on present dosing. No new dose adjustments. Subjective Date/time seen: 02/07/20 14:40 Interval history: no new complaints Exam Narrative: Exam Narrative: afebrile Const: General: no acute distress Eyes: General: appearance normal, both eyes and all related structures Resp: Effort & Inspection: normal respiratory effort Auscultation: clear to auscultation bilaterally Cardio: Rate: regular rate Rhythm: regular rhythm Heart sounds: no gallops and Murmur heart sound present GI: GI Palp: Yes Soft to palpation, No Tenderness to palpation present (GI) and No Guarding due to palpation present (GI) Skin: General skin exam: no rashes or lesions noted Other: foot dressed, no proximal erythema nor tenderness nor warmth Objective Data Vital Signs Vital Signs: Vital Signs - 24 hr 02/06/20 15:40 02/06/20 15:55 02/06/20 16:10 Temperature 35.9 C L Pulse Rate 67 70 71 Respiratory Rate 13 16 18 Blood Pressure 80/51 L 94/60 L 89/58 L Pulse Oximetry 95 98 97 02/06/20 16:25 02/06/20 16:40 02/06/20 16:55 Temperature Pulse Rate 74 72 73 Respiratory Rate 16 12 12 Blood Pressure 99/60 L 97/69 L 96/65 L Pulse Oximetry 94 95 94 02/06/20 17:25 02/06/20 17:40 02/06/20 18:10 Temperature 35.7 C L 35.8 C L 35.8 C L Pulse Rate 70 71 71 Respiratory Rate 16 16 12 Blood Pressure 96/60 L 92/57 L 102/59 L Pulse Oximetry 96 96 97 02/06/20 19:10 02/06/20 20:00 02/06/20 23:10 Temperature 35.6 C L 35.7 C L Pulse Rate 14 L 14 L 85 Respiratory Rate 92 H 92 H 18 Blood Pressure 101/62 104/66 Pulse Oximetry 72 L 72 L 95 02/07/20 03:10 02/07/20 07:10 02/07/20 08:47 Temperature 37.2 C 36.4 C Pulse Rate 80 70 88 Respiratory Rate 16 16 Blood Pressure 120/79 118/83 Pulse Oximetry 98 96 02/07/20 11:10 Temperature 36.4 C Pulse Rate 93 Respiratory Rate 16 Blood Pressure 135/86 Pulse Oximetry 98 Intake/Output Intake/Output: Intake & Output 02/04/20 02/05/20 02/06/20 02/07/20 23:59 23:59 23:59 23:59 Intake Total 880 2190 550 1950 Output Total 1300 800 325 Balance 880 890 -250 1625 Meds/Results Medications: Active Medications Generic Name Dose Route Start Last Admin Trade Name Freq PRN Reason Stop Dose Admin Amlodipine Besylate 10 mg 02/05/20 09:00 02/07/20 08:46 Norvasc PO 10 mg DAILY ALEX Administration Dextrose 12.5 gm 02/04/20 16:06 Dextrose 50% Syringe IV PUSH PRN PRN Hypoglycemia Protocol Famotidine 20 mg 02/05/20 09:00 02/07/20 08:49 Pepcid PO 20 mg DAILY ALEX Administration Fenofibrate 145 mg 02/05/20 09:00 02/07/20 08:48 Tricor PO 145 mg DAILY ALEX Administration Gabapentin 300 mg 02/04/20 17:00 02/07/20 12:18 Neurontin PO 300 mg TID ALEX Administration Gemfibrozil 600 mg 02/05/20 09:00 02/07/20 08:46 Lopid PO 600 mg DAILY ALEX Administration Glucagon 1 mg 02/04/20 16:06 Glucagon For Inj IM PRN PRN Hypoglycemia Protocol Glucose 15 gm 02/04/20 16:06 Glutose 15 PO PRN PRN Hypoglycemia Protocol Heparin Sodium (Porcine) 5,000 units 02/04/20 21:00 02/07/20 08:49 Heparin Sodium SUB-Q 5,000 units Q12HR ALEX Administration Hydromorphone HCl 1 mg 02/06/20 17:09 Dilaudid Inj IV PUSH Q2H PRN Pain Rated 7-10 Dextrose 1,000 mls @ 100 mls/hr 02/04/20 16:06 Dextrose 5% 1,000 Ml IVPB PRN PRN Hypoglycemia Protocol Demetri
[2020-02-07 15:10] VITALS: BP 140/80; PULSE 92; RESP 16; TEMP 36.6; O2SAT 98
--- NOTE | 2020-02-07 15:44 | WPDPN ---
Progress Note: A&P Additional Plan 1 day s/p partial first ray resection left foot - WBC improved now WNL -Amputation site free of necrotic infected tissue, all tissue is viable -Noted initial cultures s/p bedside I&D, Intraop cultures pending -Blood cultures show no growth so far -Continue with IV abx -Changed dressing on todays visit, applied DSD -Ordered Wound VAC therapy Will continue to follow Exam Extrem: Ankle/foot/toe images: 1. Amputation site is all healthy minimal sanguineus drainage noted only. No erythema noted. No malodor, no purulence. No active arterial bleeding noted after dressing removal. Objective Data Vital Signs Vital Signs: Vital Signs - 24 hr 02/06/20 15:55 02/06/20 16:10 02/06/20 16:25 Temperature Pulse Rate 70 71 74 Respiratory Rate 16 18 16 Blood Pressure 94/60 L 89/58 L 99/60 L Pulse Oximetry 98 97 94 02/06/20 16:40 02/06/20 16:55 02/06/20 17:25 Temperature 35.7 C L Pulse Rate 72 73 70 Respiratory Rate 12 12 16 Blood Pressure 97/69 L 96/65 L 96/60 L Pulse Oximetry 95 94 96 02/06/20 17:40 02/06/20 18:10 02/06/20 19:10 Temperature 35.8 C L 35.8 C L 35.6 C L Pulse Rate 71 71 14 L Respiratory Rate 16 12 92 H Blood Pressure 92/57 L 102/59 L 101/62 Pulse Oximetry 96 97 72 L 02/06/20 20:00 02/06/20 23:10 02/07/20 03:10 Temperature 35.7 C L 37.2 C Pulse Rate 14 L 85 80 Respiratory Rate 92 H 18 16 Blood Pressure 104/66 120/79 Pulse Oximetry 72 L 95 98 02/07/20 07:10 02/07/20 08:47 02/07/20 11:10 Temperature 36.4 C 36.4 C Pulse Rate 70 88 93 Respiratory Rate 16 16 Blood Pressure 118/83 135/86 Pulse Oximetry 96 98 02/07/20 15:10 Temperature 36.6 C Pulse Rate 92 Respiratory Rate 16 Blood Pressure 140/80 Pulse Oximetry 98 Intake/Output Intake/Output: Intake & Output 02/04/20 02/05/20 02/06/20 02/07/20 23:59 23:59 23:59 23:59 Intake Total 880 2190 550 1950 Output Total 1300 800 325 Balance 880 890 -250 1625 Meds/Results Medications: Active Medications Generic Name Dose Route Start Last Admin Trade Name Freq PRN Reason Stop Dose Admin Amlodipine Besylate 10 mg 02/05/20 09:00 02/07/20 08:46 Norvasc PO 10 mg DAILY ALEX Administration Dextrose 12.5 gm 02/04/20 16:06 Dextrose 50% Syringe IV PUSH PRN PRN Hypoglycemia Protocol Famotidine 20 mg 02/05/20 09:00 02/07/20 08:49 Pepcid PO 20 mg DAILY ALEX Administration Fenofibrate 145 mg 02/05/20 09:00 02/07/20 08:48 Tricor PO 145 mg DAILY ALEX Administration Gabapentin 300 mg 02/04/20 17:00 02/07/20 12:18 Neurontin PO 300 mg TID ALEX Administration Gemfibrozil 600 mg 02/05/20 09:00 02/07/20 08:46 Lopid PO 600 mg DAILY ALEX Administration Glucagon 1 mg 02/04/20 16:06 Glucagon For Inj IM PRN PRN Hypoglycemia Protocol Glucose 15 gm 02/04/20 16:06 Glutose 15 PO PRN PRN Hypoglycemia Protocol Heparin Sodium (Porcine) 5,000 units 02/04/20 21:00 02/07/20 08:49 Heparin Sodium SUB-Q 5,000 units Q12HR ALEX Administration Hydromorphone HCl 1 mg 02/06/20 17:09 Dilaudid Inj IV PUSH Q2H PRN Pain Rated 7-10 Dextrose 1,000 mls @ 100 mls/hr 02/04/20 16:06 Dextrose 5% 1,000 Ml IVPB PRN PRN Hypoglycemia Protocol Piperacillin Sod/Tazobactam Sod 2.25 gm in 50 mls @ 100 mls/hr 02/05/20 12:45 02/07/20 11:50 Zosyn 2.25 Gm/D5w 50 Ml IVPB Infused Q6HR ALEX Infusion Sodium Chloride 1,000 mls @ 75 mls/hr 02/06/20 12:25 02/07/20 06:08 Normal Saline Iv IV CONT 75 mls/hr .[id number] ALEX Administration Insulin Aspart 2 - 5 units 02/04/20 17:00 02/07/20 11:52 Novolog SUB-Q Not Given TIDWM [facility] Protocol Insulin Detemir 44 units 02/04/20 17:00 02/07/20 08:57 Levemir SUB-Q 44 units BID ALEX Administration Metformin HCl 1,000 mg 02/05/20 09:00 02/06/20 08:26 Glucophage PO Not Given DAILY [facility]
[2020-02-07 16:43] LABS: Glucose Point of Care 130 (65-105)
[2020-02-07] MEDS: PANTOPRAZOLE 40 MG TABLET PO (20:51)
[2020-02-07 21:00] LABS: Glucose Point of Care 168 (65-105)
[2020-02-07 21:36] VITALS: BP 141/91; PULSE 90; RESP 18; TEMP 36.8; O2SAT 95
[2020-02-08 05:16] LABS: Basophils Percent Auto 0.5 % (0.2-1.2); Eosinophils Absolute Auto 0.1 K/mm3 (0-0.3); Eosinophils Percent Auto 1.5 % (0-4.4); Hematocrit 30.8 % (42.0-52.0); Hemoglobin 9.5 g/dL (14.0-18.0); Immature Granulocyte Absolute 0.09 K/mm3 (0.00-0.031); Lymphocytes Absolute Auto 1.76 K/mm3 (0.9-3.2); Mean Corpuscular HGB Conc 30.8 g/dl (32-36); Mean Corpuscular Hemoglobin 23.6 pg (26-34); Mean Corpuscular Volume 76.6 fl (80-100); Mean Platelet Volume 8.8 fl (7.4-10.4); Monocytes Percent Auto 10.9 % (2.6-8.5); Neutrophils Absolute Auto 5.8 K/mm3 (1.3-6.7); Neutrophils Percent Auto 66.1 % (45.5-73.1); Platelet Count Result 443 k/mm3 (150-375); Red Blood Count 4.02 M/mm3 (4.6-6.20); Red Cell Distribution Width 14.5 % (11.5-14.5); White Blood Count 8.8 K/mm3 (4.5-10.0)
[2020-02-08 05:30] LABS: Blood Urea Nitrogen 69 mg/dL (9-20); Calcium 8.4 mg/dL (8.4-10.2); Carbon Dioxide 15 mmol/L (22-30); Chloride 110 mmol/L (98-107); Estimated CRCL calculation 9 ml/min; Estimated Glomerular Filt Rate 5; Glucose 75 mg/dL (75-110); Potassium 4.3 mmol/L (3.4-5.0); Sodium 140 mmol/L (137-145)
[2020-02-08 06:42] VITALS: BP 144/86; PULSE 95; RESP 16; TEMP 36.7; O2SAT 96
--- NOTE | 2020-02-08 07:35 | PC.NURSE ---
Patient's blood sugar was 63. Refused glucose gel so 4 ounces of apple juice was given. Will recheck sugar in 15 minutes.
[2020-02-08 07:42] LABS: Glucose Point of Care 63 (65-105)
[2020-02-08 08:01] LABS: Glucose Point of Care 72 (65-105)
[2020-02-08] MEDS: HEPARIN SODIUM 5,000 UNITS/ML VIAL 5000 UNITS SUB-Q ×2 (08:28→21:30)
[2020-02-08] MEDS: VENLAFAXINE HCL 75 MG TABLET PO ×2 (08:28→17:49)
[2020-02-08] MEDS: VENLAFAXINE HCL 25 MG TABLET PO ×2 (08:28→17:49)
[2020-02-08] MEDS: FAMOTIDINE 20 MG TABLET PO (08:29)
[2020-02-08] MEDS: GABAPENTIN 300 MG CAPSULE PO ×3 (08:29→17:49)
[2020-02-08] MEDS: AMLODIPINE BESYLATE 5 MG TABLET 10 MG PO (08:29)
[2020-02-08] MEDS: gemfibroziL 600 MG TABLET PO (08:29)
[2020-02-08 08:30] VITALS: PULSE 68
[2020-02-08] MEDS: METOPROLOL SUCCINATE EXT REL 100 MG TABCR PO (08:30)
[2020-02-08] MEDS: FENOFIBRATE NANOCRYSTALLIZED 145 MG TABLET PO (08:30)
[2020-02-08] MEDS: PRAVASTATIN SODIUM 20 MG TABLET 80 MG PO (08:31)
[2020-02-08 09:15] LABS: Glucose Point of Care 130 (65-105)
--- NOTE | 2020-02-08 10:15 | PM.IMPN ---
Progress Note: A&P Assessment and Plan (1) Acute osteomyelitis involving ankle and foot: Qualifiers: Laterality: right Qualified Code(s): M86.171 - Other acute osteomyelitis, right ankle and foot Code(s): M86.179 - Other acute osteomyelitis, unspecified ankle and foot Status: Acute Assessment and Plan: S/p ray amputation Plan for wound vac and possible discharge 02/09 Day Pip/Mart. (2) Diabetic foot ulcer: Qualifiers: Diabetic foot ulcer location: unspecified part of foot Diabetes mellitus type: type 2 Laterality: right Non-pressure ulcer stage: unspecified non-pressure ulcer stage Qualified Code(s): E11.621 - Type 2 diabetes mellitus with foot ulcer; L97.519 - Non-pressure chronic ulcer of other part of right foot with unspecified severity Code(s): E11.621 - Type 2 diabetes mellitus with foot ulcer; L97.509 - Non-pressure chronic ulcer of other part of unspecified foot with unspecified severity Status: Acute Assessment and Plan: Continue wound care (3) Type 2 diabetes mellitus with hyperglycemia: Qualifiers: Diabetes mellitus ferry terminal supervisor insulin use: with residential use Qualified Code(s): E11.65 - Type 2 diabetes mellitus with hyperglycemia; Z79.4 - snf (current) use of insulin Code(s): E11.65 - Type 2 diabetes mellitus with hyperglycemia Status: Acute Assessment and Plan: Will continue current regimen (4) Chronic kidney disease: Qualifiers: Chronic kidney disease stage: stage 5, not on chronic dialysis Qualified Code(s): N18.5 - Chronic kidney disease, stage 5 Code(s): N18.9 - Chronic kidney disease, unspecified Status: Chronic Assessment and Plan: Blending Machine Feeder following (5) Peripheral vascular disease: Onset Date: Unknown Code(s): I73.9 - Peripheral vascular disease, unspecified Status: Acute Assessment and Plan: Clinically stable w/o sx's (6) Essential (primary) hypertension: Code(s): I10 - Essential (primary) hypertension Status: Acute Assessment and Plan: Continue home regimen and monitor (7) Aortic valve stenosis: Qualifiers: Cardiac valve disease etiology: etiology unspecified Qualified Code(s): I35.0 - Nonrheumatic aortic (valve) stenosis Code(s): I35.0 - Nonrheumatic aortic (valve) stenosis Status: Acute Assessment and Plan: Moderate Currently w/o sx's Subjective Date/time seen: 02/08/20 10:15 Review of Systems Review of Systems: All systems reviewed & are unremarkable except as noted in HPI and below Exam Narrative: Exam Narrative: HEENT: EOMI, PERRL, sclerae nonitcteric, pharyngeal mucosa pink and intact NECK: No JVD CHEST: Clear to auscultation. Normal effort. HEART: NL S1/S2, regular, 3/6 MAAME RUSB to neck ABDOMEN: BS+, soft, nontender, no mass, no bruits EXTREMITIES: No cyanosis, edema, or clubbing; right foot bandaged NEUROLOGIC: CN intact and symmetric to inspection. MUSCULOSKELETAL: Tone and strength symmetric. PSYCH: Alert. Oriented to person, place, and time. Objective Data Vital Signs Vital Signs: Vital Signs - 24 hr 02/07/20 11:10 02/07/20 15:10 02/07/20 21:36 Temperature 97.6 F 97.8 F 98.3 F Pulse Rate 93 92 90 Respiratory Rate 16 16 18 Blood Pressure 135/86 140/80 141/91 H Pulse Oximetry 98 98 95 02/08/20 06:42 02/08/20 08:30 Temperature 98.0 F Pulse Rate 95 68 Respiratory Rate 16 Blood Pressure 144/86 H Pulse Oximetry 96 Intake/Output Intake/Output: Intake & Output 02/05/20 02/06/20 02/07/20 02/08/20 23:59 23:59 23:59 23:59 Intake Total 2190 550 4050 1363 Output Total 3182 330 1978 1450 Balance 890 -250 2675 -87 Meds/Results Medications: Active Medications Generic Name Dose Route Start Last Admin Trade Name Freq PRN Reason Stop Dose Admin Amlodipine Besylate 10 mg 02/05/20 09:00 02/08/20 08:29 Norvasc PO 1
[2020-02-08 11:22] LABS: Glucose Point of Care 115 (65-105)
--- NOTE | 2020-02-08 11:45 | PM.PNNEP ---
Progress Note: A&P Assessment and Plan (1) VLAD (acute kidney injury): Code(s): N17.9 - Acute kidney failure, unspecified Status: Acute Assessment and Plan: multifactorial etiology: - acute infection (DM wound + osteomyelitis) - volume depletion (pre-renal urine lytes) - concurrent use of valsartan and metformin - relative hypotension -- systolic BPs usually run 130 - 150s from previous hospitalization holding ARB and metformin at this time optimize hemodynamics as tolerated on IVFs -- making urine renal ultrasound normal follow trend of repeat labs and UOP - rate of rise in creatinine appears to be slowing...peak/[place] soon(?) (2) Chronic kidney disease: Qualifiers: Chronic kidney disease stage: stage 5, not on chronic dialysis Qualified Code(s): N18.5 - Chronic kidney disease, stage 5 Code(s): N18.9 - Chronic kidney disease, unspecified Status: Chronic Assessment and Plan: baseline creatinine runs ~ 2.0 - 2.5mg/dl based on outpatient evaluation - this is due to diabetes and hypertension - known to have nephrotic range proteinuria (3) Acute osteomyelitis involving ankle and foot: Qualifiers: Laterality: right Qualified Code(s): M86.171 - Other acute osteomyelitis, right ankle and foot Code(s): M86.179 - Other acute osteomyelitis, unspecified ankle and foot Status: Acute Assessment and Plan: as demonstrated by MRI of left foot Podiatry following s/p left foot partial first ray resection (4) Essential (primary) hypertension: Code(s): I10 - Essential (primary) hypertension Status: Acute Assessment and Plan: running lower than baseline previously - BP doing better at this time slowly improving BP medications with parameters follow trend of hemodynamics Will continue to follow. Subjective Date/time seen: 02/08/20 11:45 Appears to be doing quite well; minimal if not pain to surgical site; eating and drinking okay; still making reasonably urine output; no apparent distress voiced. Exam Narrative: Exam Narrative: General: WD/WN male in NAD Heart: normal S1 and S2; no rub Lungs: clear to auscultation Abdomen: soft, NT/ND, positive bowel sounds Extremities: no cyanosis or clubbing; no edema Skin: left foot with dressings in place Objective Data Vital Signs Vital Signs: Vital Signs Temperature 36.6 C 02/04/20 12:24 Pulse Rate 91 04/14/20 12:24 Respiratory Rate 18 02/04/20 12:24 Blood Pressure 118/62 02/04/20 12:24 Pulse Oximetry 100 02/04/20 12:24 Temperature 36.3 C L 02/09/20 13:46 Pulse Rate 95 02/09/20 13:46 Respiratory Rate 18 02/09/20 13:46 Blood Pressure 158/93 H 02/09/20 13:46 Pulse Oximetry 96 02/09/20 13:46 Intake/Output Intake/Output: Intake & Output 02/06/20 02/07/20 02/08/20 02/09/20 23:59 23:59 23:59 23:59 Intake Total 550 4050 3650 1720 Output Total 800 1375 1800 1200 Balance -250 2675 1850 520 Meds/Results Medications: Active Medications Generic Name Dose Route Start Last Admin Trade Name Freq PRN Reason Stop Dose Admin Amlodipine Besylate 10 mg 02/05/20 09:00 02/09/20 10:01 Norvasc PO 10 mg DAILY ALEX Administration Dextrose 12.5 gm 02/04/20 16:06 Dextrose 50% Syringe IV PUSH PRN PRN Hypoglycemia Protocol Famotidine 20 mg 02/05/20 09:00 02/09/20 10:00 Pepcid PO 20 mg DAILY ALEX Administration Fenofibrate 145 mg 02/05/20 09:00 02/09/20 10:01 Tricor PO 145 mg DAILY ALEX Administration Gabapentin 300 mg 02/04/20 17:00 02/09/20 12:30 Neurontin PO 300 mg TID ALEX Administration Gemfibrozil 600 mg 02/05/20 09:00 02/09/20 10:10 Lopid PO 600 mg DAILY ALEX Administration Glucagon 1 mg 02/04/20 16:06 Glucagon For Inj IM PRN PRN Hypoglycemia Protocol Glucose 15 gm 02/04/20 16:06
[2020-02-08] MEDS: SODIUM CHLORIDE 0.9% IV 1,000 ML 75 ML IV CONT ×2 (11:52→23:35)
[2020-02-08 14:14] VITALS: BP 132/84; PULSE 75; RESP 18; TEMP 36.8; O2SAT 97
[2020-02-08 16:54] LABS: Glucose Point of Care 90 (65-105)
[2020-02-08] MEDS: PANTOPRAZOLE 40 MG TABLET PO (21:31)
[2020-02-08 21:43] LABS: Glucose Point of Care 153 (65-105)
[2020-02-08 22:00] VITALS: BP 161/97; PULSE 87; RESP 18; TEMP 36.3; O2SAT 97
[2020-02-09] VITALS (8 sets, daily range): BP systolic 157–179; BP diastolic 93–107; PULSE 94–101; RESP 16–18; TEMP 36.3–36.8; O2SAT 94–96
[2020-02-09 05:07] LABS: Basophils Absolute Auto 0.1 K/mm3 (0.0-0.1); Basophils Percent Auto 0.5 % (0.2-1.2); Eosinophils Absolute Auto 0.2 K/mm3 (0-0.3); Eosinophils Percent Auto 2.2 % (0-4.4); Hematocrit 31.2 % (42.0-52.0); Hemoglobin 9.6 g/dL (14.0-18.0); Immature Granulocyte Absolute 0.12 K/mm3 (0.00-0.031); Immature Granulocyte Percent A 1.2 % (0-0.5); Lymphocytes Absolute Auto 1.56 K/mm3 (0.9-3.2); Lymphocytes Percent Auto 15.2 % (18.3-44.2); Mean Corpuscular HGB Conc 30.8 g/dl (32-36); Mean Corpuscular Hemoglobin 23.6 pg (26-34); Mean Corpuscular Volume 76.7 fl (80-100); Mean Platelet Volume 8.9 fl (7.4-10.4); Monocytes Absolute Auto 0.8 K/mm3 (0.1-0.6); Monocytes Percent Auto 7.6 % (2.6-8.5); Neutrophils Absolute Auto 7.5 K/mm3 (1.3-6.7); Neutrophils Percent Auto 73.3 % (45.5-73.1); Platelet Count Result 455 k/mm3 (150-375); Red Blood Count 4.07 M/mm3 (4.6-6.20); Red Cell Distribution Width 14.6 % (11.5-14.5); White Blood Count 10.3 K/mm3 (4.5-10.0)
[2020-02-09 05:24] LABS: Blood Urea Nitrogen 66 mg/dL (9-20); Calcium 8.4 mg/dL (8.4-10.2); Carbon Dioxide 16 mmol/L (22-30); Chloride 112 mmol/L (98-107); Estimated CRCL calculation 9 ml/min; Estimated Glomerular Filt Rate 5; Glucose 96 mg/dL (75-110); Potassium 4.6 mmol/L (3.4-5.0); Sodium 139 mmol/L (137-145)
[2020-02-09 07:53] LABS: Glucose Point of Care 75 (65-105)
[2020-02-09] MEDS: VENLAFAXINE HCL 25 MG TABLET PO ×2 (10:00→18:02)
[2020-02-09] MEDS: FAMOTIDINE 20 MG TABLET PO (10:00)
[2020-02-09] MEDS: GABAPENTIN 300 MG CAPSULE PO ×3 (10:00→18:02)
[2020-02-09] MEDS: AMLODIPINE BESYLATE 5 MG TABLET 10 MG PO (10:01)
[2020-02-09] MEDS: FENOFIBRATE NANOCRYSTALLIZED 145 MG TABLET PO (10:01)
[2020-02-09] MEDS: VENLAFAXINE HCL 75 MG TABLET PO ×2 (10:01→18:02)
[2020-02-09] MEDS: PRAVASTATIN SODIUM 20 MG TABLET 80 MG PO (10:01)
[2020-02-09] MEDS: METOPROLOL SUCCINATE EXT REL 100 MG TABCR PO ×2 (10:04→21:40)
[2020-02-09] MEDS: HEPARIN SODIUM 5,000 UNITS/ML VIAL 5000 UNITS SUB-Q ×2 (10:05→21:39)
[2020-02-09] MEDS: gemfibroziL 600 MG TABLET PO (10:10)
--- NOTE | 2020-02-09 10:59 | PM.IMPN ---
Progress Note: A&P Assessment and Plan (1) Acute osteomyelitis involving ankle and foot: Qualifiers: Laterality: right Qualified Code(s): M86.171 - Other acute osteomyelitis, right ankle and foot Code(s): M86.179 - Other acute osteomyelitis, unspecified ankle and foot Status: Acute Assessment and Plan: S/p ray amputation 02/05 Intraoperative culture growing group G strep Plan for wound vac and possible discharge 02/09 Day Pip/Mart (consider narrowing spectrum based on culture results) (2) Diabetic foot ulcer: Qualifiers: Diabetic foot ulcer location: unspecified part of foot Diabetes mellitus type: type 2 Laterality: right Non-pressure ulcer stage: unspecified non-pressure ulcer stage Qualified Code(s): E11.621 - Type 2 diabetes mellitus with foot ulcer; L97.519 - Non-pressure chronic ulcer of other part of right foot with unspecified severity Code(s): E11.621 - Type 2 diabetes mellitus with foot ulcer; L97.509 - Non-pressure chronic ulcer of other part of unspecified foot with unspecified severity Status: Acute Assessment and Plan: Continue wound care (3) Type 2 diabetes mellitus with hyperglycemia: 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 Qualified Code(s): E11.65 - Type 2 diabetes mellitus with hyperglycemia; Z79.4 - intermediate (current) use of insulin Code(s): E11.65 - Type 2 diabetes mellitus with hyperglycemia Status: Acute Assessment and Plan: 02/08 FBS 94 Continue current regimen (4) Chronic kidney disease: Qualifiers: Chronic kidney disease stage: stage 5, not on chronic dialysis Qualified Code(s): N18.5 - Chronic kidney disease, stage 5 Code(s): N18.9 - Chronic kidney disease, unspecified Status: Chronic Assessment and Plan: Creatinine 02/03 4.4 --> 02/07 10.4 --> 02/08 10.6 02/08 UO 1600 ml last 24 hours (5) Peripheral vascular disease: Onset Date: Unknown Code(s): I73.9 - Peripheral vascular disease, unspecified Status: Acute Assessment and Plan: Clinically stable w/o sx's (6) Essential (primary) hypertension: Code(s): I10 - Essential (primary) hypertension Status: Acute Assessment and Plan: Continue home regimen and monitor (7) Aortic valve stenosis: Qualifiers: Cardiac valve disease etiology: etiology unspecified Qualified Code(s): I35.0 - Nonrheumatic aortic (valve) stenosis Code(s): I35.0 - Nonrheumatic aortic (valve) stenosis Status: Acute Assessment and Plan: Moderate Currently w/o sx's Subjective Date/time seen: 02/09/20 10:59 Interval history: Admitted with diabetic foot ulcer and osteomyeloitis. Denied pain, sob, gi or gu c/o, bleeding. Review of Systems Review of Systems: All systems reviewed & are unremarkable except as noted in HPI and below Exam Narrative: Exam Narrative: HEENT: EOMI, PERRL, sclerae nonitcteric, pharyngeal mucosa pink and intact NECK: No JVD CHEST: Clear to auscultation. Normal effort. HEART: NL S1/S2, regular, 3/6 MAAME RUSB to neck ABDOMEN: BS+, soft, nontender, no mass, no bruits EXTREMITIES: No cyanosis, edema, or clubbing; right foot bandaged NEUROLOGIC: CN intact and symmetric to inspection. MUSCULOSKELETAL: Tone and strength symmetric. PSYCH: Alert. Oriented to person, place, and time. Objective Data Vital Signs Vital Signs: Vital Signs - 24 hr 02/08/20 14:14 02/08/20 22:00 02/09/20 06:00 Temperature 98.2 F 97.3 F L 97.8 F Pulse Rate 75 87 94 Respiratory Rate 18 18 18 Blood Pressure 132/84 161/97 H 179/107 H Pulse Oximetry 97 97 95 02/09/20 10:04 Temperature Pulse Rate 101 H Respiratory Rate Blood Pressure Pulse Oximetry Intake/Output Intake/Output: Intake & Output 02/06/20 02/07/20 02/08/20 02/09/20 23:59 23:59 23:59 23:59 Intake Total 550 4050 3650 510 Output Total 800 1375 18
[2020-02-09 11:22] LABS: Glucose Point of Care 94 (65-105)
[2020-02-09] MEDS: hydrALAZINE HCL 20 MG/ML VIAL 10 MG IV PUSH (12:29)
--- NOTE | 2020-02-09 13:33 | WPDPN ---
Progress Note: A&P Additional Plan 3 days s/p partial 1st ray resection left foot wound is healthy with no SOI. - Abx per ID will be continued as outpatient -Wound care nursing will apply wound vac Monday02/10/20, continuous suction at 140mmHG changed 3x per week unitl wound is fully epithelialized. - Will continue to monitor as outpatient once discharged. Patient will be seen in my office 3 days after discharged to assess healing. - Use Crutches/knee for ambulation as outpatient Thanks to all for help with this case, Dr. Garcia [phone] Exam Extrem: Ankle/foot/toe images: 1. Amputation site is granulating nicely. Only healthy bleeding tissue noted. No active arterial bleeding. Erythema that was present prior to amputation has fully resolved. No malodor noted. 2. Objective Data Vital Signs Vital Signs: Vital Signs - 24 hr 02/08/20 14:14 02/08/20 22:00 02/09/20 06:00 Temperature 36.8 C 36.3 C L 36.6 C Pulse Rate 75 87 94 Respiratory Rate 18 18 18 Blood Pressure 132/84 161/97 H 179/107 H Pulse Oximetry 97 97 95 02/09/20 10:00 02/09/20 10:04 02/09/20 11:29 Temperature Pulse Rate 101 H 101 H 97 Respiratory Rate Blood Pressure 168/107 H 170/107 H Pulse Oximetry 02/09/20 12:34 Temperature Pulse Rate Respiratory Rate Blood Pressure Pulse Oximetry 95 Intake/Output Intake/Output: Intake & Output 02/06/20 02/07/20 02/08/20 02/09/20 23:59 23:59 23:59 23:59 Intake Total 550 4050 3650 1720 Output Total 800 1375 1800 1200 Balance -250 2675 1850 520 Meds/Results Medications: Active Medications Generic Name Dose Route Start Last Admin Trade Name Freq PRN Reason Stop Dose Admin Amlodipine Besylate 10 mg 02/05/20 09:00 02/09/20 10:01 Norvasc PO 10 mg DAILY ALEX Administration Dextrose 12.5 gm 02/04/20 16:06 Dextrose 50% Syringe IV PUSH PRN PRN Hypoglycemia Protocol Famotidine 20 mg 02/05/20 09:00 02/09/20 10:00 Pepcid PO 20 mg DAILY ALEX Administration Fenofibrate 145 mg 02/05/20 09:00 02/09/20 10:01 Tricor PO 145 mg DAILY ALEX Administration Gabapentin 300 mg 02/04/20 17:00 02/09/20 12:30 Neurontin PO 300 mg TID ALEX Administration Gemfibrozil 600 mg 02/05/20 09:00 02/09/20 10:10 Lopid PO 600 mg DAILY ALEX Administration Glucagon 1 mg 02/04/20 16:06 Glucagon For Inj IM PRN PRN Hypoglycemia Protocol Glucose 15 gm 02/04/20 16:06 Glutose 15 PO PRN PRN Hypoglycemia Protocol Heparin Sodium (Porcine) 5,000 units 02/04/20 21:00 02/09/20 10:05 Heparin Sodium SUB-Q 5,000 units Q12HR ALEX Administration Hydralazine HCl 10 mg 02/09/20 11:35 02/09/20 12:29 Apresoline Hcl Inj IV PUSH 10 mg Q8H PRN Administration Blood Pressure - High Hydromorphone HCl 1 mg 02/06/20 17:09 Dilaudid Inj IV PUSH Q2H PRN Pain Rated 7-10 Dextrose 1,000 mls @ 100 mls/hr 02/04/20 16:06 Dextrose 5% 1,000 Ml IVPB PRN PRN Hypoglycemia Protocol Piperacillin Sod/Tazobactam Sod 2.25 gm in 50 mls @ 100 mls/hr 02/05/20 12:45 02/09/20 13:00 Zosyn 2.25 Gm/D5w 50 Ml IVPB Infused Q6HR ALEX Infusion Insulin Aspart 2 - 5 units 02/04/20 17:00 02/09/20 11:33 Novolog SUB-Q Not Given TIDWM COUNT INCLUDES THE [facility] Protocol Insulin Detemir 40 units 02/09/20 21:00 Levemir SUB-Q HS ALEX Metformin HCl 1,000 mg 02/05/20 09:00 02/06/20 08:26 Glucophage PO Not Given DAILY COUNT INCLUDES THE [facility] Metoprolol Succinate 100 mg 02/09/20 21:00 Toprol Xl PO Q12HR COUNT INCLUDES THE [facility] Pantoprazole Sodium 40 mg 02/04/20 21:00 02/08/20 21:31 Protonix PO 40 mg HS ALEX Administration Pravastatin Sodium 80 mg 02/05/20 09:00 02/09/20 10:01 Pravastatin Sodium PO 80 mg DAILY ALEX Administration Venlafaxine HCl 75 mg 02/04/20 17:00 02/09/20 10:01 Effexor PO 75 mg BID ALEX Administration Venlafaxine HCl 25 mg 02/04/20 17:00
--- NOTE | 2020-02-09 13:55 | PM.PNNEP ---
Progress Note: A&P Assessment and Plan (1) VLAD (acute kidney injury): Code(s): N17.9 - Acute kidney failure, unspecified Status: Acute Assessment and Plan: multifactorial etiology: - acute infection (DM wound + osteomyelitis) - volume depletion (pre-renal urine lytes) - concurrent use of valsartan and metformin - relative hypotension -- systolic BPs usually run 130 - 150s from previous hospitalization holding ARB and metformin at this time optimize hemodynamics as tolerated continues to make urine renal ultrasound normal possible peak/plateau of creatinine today(?) follow trend of repeat labs and UOP (2) Chronic kidney disease: Qualifiers: Chronic kidney disease stage: stage 4 (severe) Qualified Code(s): N18.4 - Chronic kidney disease, stage 4 (severe) Code(s): N18.9 - Chronic kidney disease, unspecified Status: Chronic Assessment and Plan: baseline creatinine runs ~ 2.0 - 2.5mg/dl based on outpatient evaluation - this is due to diabetes and hypertension - known to have nephrotic range proteinuria (3) Acute osteomyelitis involving ankle and foot: Qualifiers: Laterality: right Qualified Code(s): M86.171 - Other acute osteomyelitis, right ankle and foot Code(s): M86.179 - Other acute osteomyelitis, unspecified ankle and foot Status: Acute Assessment and Plan: as demonstrated by MRI of left foot Podiatry following s/p left foot partial first ray resection antibiotics as per Infectious Disease recommendations (4) Essential (primary) hypertension: Code(s): I10 - Essential (primary) hypertension Status: Acute Assessment and Plan: running lhigher if not closer to baseline BP medications with parameters follow trend of hemodynamics Would not be opposed to discharge if creatinine remains stable if not improving -- he can follow-up with me in clinic in 2 - 3 weeks with repeat labs in one week (and faxed to my office). Will continue to follow Subjective Date/time seen: 02/09/20 13:55 No new issues or problems to report; feels quite well at this time; plan for wound vac placement tomorrow; eating and drinking okay; no apparent distress and no events overnight or this AM. Exam Narrative: Exam Narrative: General: WD/WN male in NAD Heart: normal S1 and S2; no rub Lungs: clear to auscultation Abdomen: soft, NT/ND, positive bowel sounds Extremities: no cyanosis or clubbing; no edema Skin: left foot with dressings in place Objective Data Vital Signs Vital Signs: Vital Signs Temp Pulse Resp BP Pulse Ox 02/09/20 13:46 36.3 C L 95 18 158/93 H 96 02/09/20 12:34 95 02/09/20 11:29 97 170/107 H 02/09/20 10:04 101 H 02/09/20 10:00 101 H 168/107 H 02/09/20 06:00 36.6 C 94 18 179/107 H 95 02/08/20 22:00 36.3 C L 87 18 161/97 H 97 02/08/20 14:14 36.8 C 75 18 132/84 97 Intake/Output Intake/Output: Intake & Output 02/06/20 02/07/20 02/08/20 02/09/20 23:59 23:59 23:59 23:59 Intake Total 550 4050 3650 1720 Output Total 800 1375 1800 1200 Balance -250 2675 1850 520 Meds/Results Medications: Active Medications Generic Name Dose Route Start Last Admin Trade Name Freq PRN Reason Stop Dose Admin Amlodipine Besylate 10 mg 02/05/20 09:00 02/09/20 10:01 Norvasc PO 10 mg DAILY ALEX Administration Dextrose 12.5 gm 02/04/20 16:06 Dextrose 50% Syringe IV PUSH PRN PRN Hypoglycemia Protocol Famotidine 20 mg 02/05/20 09:00 02/09/20 10:00 Pepcid PO 20 mg DAILY ALEX Administration Fenofibrate 145 mg 02/05/20 09:00 02/09/20 10:01 Tricor PO 145 mg DAILY ALEX Administration Gabapentin 300 mg 02/04/20 17:00 02/09/20 12:30 Neurontin PO 300 mg TID ALEX Administration Gemfibrozil 600 mg 02/05/20 09:00 02/09/20 10:10 Lopid PO 600 mg DAILY ALEX Admi
[2020-02-09 16:21] LABS: Glucose Point of Care 131 (65-105)
[2020-02-09] MEDS: INSULIN DETEMIR 100 UNITS/ML 40 UNITS SUB-Q (21:39)
[2020-02-09] MEDS: PANTOPRAZOLE 40 MG TABLET PO (21:40)
[2020-02-09 22:00] LABS: Glucose Point of Care 200 (65-105)
[2020-02-10 05:21] LABS: Basophils Absolute Auto 0.1 K/mm3 (0.0-0.1); Basophils Percent Auto 0.7 % (0.2-1.2); Eosinophils Absolute Auto 0.2 K/mm3 (0-0.3); Eosinophils Percent Auto 1.8 % (0-4.4); Hematocrit 34.7 % (42.0-52.0); Hemoglobin 10.8 g/dL (14.0-18.0); Immature Granulocyte Absolute 0.15 K/mm3 (0.00-0.031); Immature Granulocyte Percent A 1.2 % (0-0.5); Lymphocytes Absolute Auto 1.33 K/mm3 (0.9-3.2); Lymphocytes Percent Auto 10.8 % (18.3-44.2); Mean Corpuscular HGB Conc 31.1 g/dl (32-36); Mean Corpuscular Hemoglobin 23.4 pg (26-34); Mean Corpuscular Volume 75.1 fl (80-100); Mean Platelet Volume 8.8 fl (7.4-10.4); Monocytes Absolute Auto 0.8 K/mm3 (0.1-0.6); Monocytes Percent Auto 6.1 % (2.6-8.5); Neutrophils Absolute Auto 9.8 K/mm3 (1.3-6.7); Neutrophils Percent Auto 79.4 % (45.5-73.1); Platelet Count Result 511 k/mm3 (150-375); Red Blood Count 4.62 M/mm3 (4.6-6.20); Red Cell Distribution Width 14.6 % (11.5-14.5); White Blood Count 12.3 K/mm3 (4.5-10.0)
[2020-02-10 05:26] LABS: Blood Urea Nitrogen 68 mg/dL (9-20); Calcium 9.1 mg/dL (8.4-10.2); Carbon Dioxide 15 mmol/L (22-30); Chloride 111 mmol/L (98-107); Estimated CRCL calculation 9 ml/min; Estimated Glomerular Filt Rate 5; Glucose 98 mg/dL (75-110); Potassium 4.4 mmol/L (3.4-5.0); Sodium 140 mmol/L (137-145)
[2020-02-10 06:00] VITALS: BP 162/97; PULSE 98; RESP 18; TEMP 36.7; O2SAT 96
[2020-02-10] MEDS: hydrALAZINE HCL 20 MG/ML VIAL 10 MG IV PUSH (06:40)
[2020-02-10 08:07] LABS: Glucose Point of Care 82 (65-105)
--- NOTE | 2020-02-10 09:25 | P.PNNP_ITS ---
Progress Note: A&P Assessment and Plan (1) VLAD (acute kidney injury): Code(s): N17.9 - Acute kidney failure, unspecified Status: Acute Assessment and Plan: * multifactorial etiology: - acute infection (DM wound + osteomyelitis) - volume depletion (pre-renal urine lytes) - concurrent use of valsartan - relative hypotension -- systolic BPs usually run 130 - 150s from previous hospitalization * holding ARB due to renal failure. * Holding metformin due to lactic acidosis issue. Anion gap is only 11. * optimize hemodynamics as tolerated * continues to make urine * renal ultrasound normal * Urine electrolytes are non pre renal * Creatinine is 11. It was in the high 10s yesterday. Hopefully the creatinine will start to improve. * No need for dialysis so far (2) Chronic kidney disease: Qualifiers: Chronic kidney disease stage: stage 4 (severe) Qualified Code(s): N18.4 - Chronic kidney disease, stage 4 (severe) Code(s): N18.9 - Chronic kidney disease, unspecified Status: Chronic Assessment and Plan: * baseline creatinine runs ~ 2.0 - 2.5mg/dl * based on outpatient evaluation - this is due to diabetes and hypertension - known to have nephrotic range proteinuria (3) Acute osteomyelitis involving ankle and foot: Qualifiers: Laterality: right Qualified Code(s): M86.171 - Other acute osteomyelitis, right ankle and foot Code(s): M86.179 - Other acute osteomyelitis, unspecified ankle and foot Status: Acute Assessment and Plan: * as demonstrated by MRI of left foot * Podiatry following * s/p left foot partial first ray resection * Blood cultures are negative. * Wound culture shows strep species. * He is on Piperacillin. * Dr. Henriquez is on the case (4) Essential (primary) hypertension: Code(s): I10 - Essential (primary) hypertension Status: Acute Assessment and Plan: * Systolic is between 150 and 170 for the most part. * I do not want to over control because of dysautoregulation * BP medications with parameters * follow trend of hemodynamics * Watching for some but not complete decline in creatinine before discharge Subjective Date/time seen: 02/10/20 09:25 Interval history: Pankaj is feeling about the same today. He does not really have an appetite. No nausea. No tremor or shaking. Review of Systems Cardiovascular: Cardiovascular: Reports no additional cardiovascular complaints Respiratory: Respiratory: Reports no additional respiratory complaints Gastrointestinal: Gastrointestinal: Reports no additional gastrointestinal complaints Genitourinary: Genitourinary: Reports no additional male genitourinary complaints Exam Narrative: Exam Narrative: General: WD/WN male in NAD Heart: normal S1 and S2; no rub or gallop Lungs: clear to auscultation Abdomen: soft, NT/ND, positive bowel sounds Extremities: no edema Skin: left foot with dressings in place. No rash Objective Data Vital Signs Vital Signs: Vital Signs - 24 hr 02/09/20 10:00 02/09/20 10:04 02/09/20 11:29 Temperature Pulse Rate 101 H 101 H 97 Respiratory Rate Blood Pressure 168/107 H 170/107 H Pulse Oximetry 02/09/20 12:34 02/09/20 13:46 02/09/20 21:40 Temperature 36.3 C L Pu
--- NOTE | 2020-02-10 09:25 | PM.PNNEP ---
Progress Note: A&P Assessment and Plan (1) VLAD (acute kidney injury): Code(s): N17.9 - Acute kidney failure, unspecified Status: Acute Assessment and Plan: multifactorial etiology: - acute infection (DM wound + osteomyelitis) - volume depletion (pre-renal urine lytes) - concurrent use of valsartan - relative hypotension -- systolic BPs usually run 130 - 150s from previous hospitalization holding ARB due to renal failure. Holding metformin due to lactic acidosis issue. Anion gap is only 11. optimize hemodynamics as tolerated continues to make urine renal ultrasound normal Urine electrolytes are non pre renal Creatinine is 11. It was in the high 10s yesterday. Hopefully the creatinine will start to improve. No need for dialysis so far (2) Chronic kidney disease: Qualifiers: Chronic kidney disease stage: stage 4 (severe) Qualified Code(s): N18.4 - Chronic kidney disease, stage 4 (severe) Code(s): N18.9 - Chronic kidney disease, unspecified Status: Chronic Assessment and Plan: baseline creatinine runs ~ 2.0 - 2.5mg/dl based on outpatient evaluation - this is due to diabetes and hypertension - known to have nephrotic range proteinuria (3) Acute osteomyelitis involving ankle and foot: Qualifiers: Laterality: right Qualified Code(s): M86.171 - Other acute osteomyelitis, right ankle and foot Code(s): M86.179 - Other acute osteomyelitis, unspecified ankle and foot Status: Acute Assessment and Plan: as demonstrated by MRI of left foot Podiatry following s/p left foot partial first ray resection Blood cultures are negative. Wound culture shows strep species. He is on Piperacillin. Dr. Henriquez is on the case (4) Essential (primary) hypertension: Code(s): I10 - Essential (primary) hypertension Status: Acute Assessment and Plan: Systolic is between 150 and 170 for the most part. I do not want to over control because of dysautoregulation BP medications with parameters follow trend of hemodynamics Watching for some but not complete decline in creatinine before discharge Subjective Date/time seen: 02/10/20 09:25 Interval history: Pankaj is feeling about the same today. He does not really have an appetite. No nausea. No tremor or shaking. Review of Systems Cardiovascular: Cardiovascular: Reports no additional cardiovascular complaints Respiratory: Respiratory: Reports no additional respiratory complaints Gastrointestinal: Gastrointestinal: Reports no additional gastrointestinal complaints Genitourinary: Genitourinary: Reports no additional male genitourinary complaints Exam Narrative: Exam Narrative: General: WD/WN male in NAD Heart: normal S1 and S2; no rub or gallop Lungs: clear to auscultation Abdomen: soft, NT/ND, positive bowel sounds Extremities: no edema Skin: left foot with dressings in place. No rash Objective Data Vital Signs Vital Signs: Vital Signs - 24 hr 02/09/20 10:00 02/09/20 10:04 02/09/20 11:29 Temperature Pulse Rate 101 H 101 H 97 Respiratory Rate Blood Pressure 168/107 H 170/107 H Pulse Oximetry 02/09/20 12:34 02/09/20 13:46 02/09/20 21:40 Temperature 36.3 C L Pulse Rate 95 100 Respiratory Rate 18 Blood Pressure 158/93 H Pulse Oximetry 95 96 02/09/20 23:21 02/10/20 06:00 Temperature 36.8 C 36.7 C Pulse Rate 100 98 Respiratory Rate 16 18 Blood Pressure 157/97 H 162/97 H Pulse Oximetry 94 96 Intake/Output Intake/Output: Intake & Output 02/07/20 02/08/20 02/09/20 02/10/20 23:59 23:59 23:59 23:59 Intake Total 4050 3650 2360 1000 Output Total 1375 1800 1550 1500 Balance 2675 1850 810 -500 Meds/Results Medications: Active Medications Generic Name Dose Route Start Last Admin Trade Name Freq PRN Reason Stop Dose Admin Amlodipine Besylate 10 mg 02/05/20 09:
[2020-02-10] MEDS: PRAVASTATIN SODIUM 20 MG TABLET 80 MG PO (09:48)
[2020-02-10] MEDS: VENLAFAXINE HCL 25 MG TABLET PO ×2 (09:48→18:22)
[2020-02-10] MEDS: AMLODIPINE BESYLATE 5 MG TABLET 10 MG PO (09:48)
[2020-02-10] MEDS: VENLAFAXINE HCL 75 MG TABLET PO ×2 (09:48→18:22)
[2020-02-10] MEDS: GABAPENTIN 300 MG CAPSULE PO ×3 (09:49→18:22)
[2020-02-10] MEDS: METOPROLOL SUCCINATE EXT REL 100 MG TABCR PO ×2 (09:49→21:01)
[2020-02-10] MEDS: FAMOTIDINE 20 MG TABLET PO (09:49)
[2020-02-10] MEDS: HEPARIN SODIUM 5,000 UNITS/ML VIAL 5000 UNITS SUB-Q ×2 (09:49→21:00)
[2020-02-10] MEDS: FENOFIBRATE NANOCRYSTALLIZED 145 MG TABLET PO (09:49)
[2020-02-10] MEDS: gemfibroziL 600 MG TABLET PO (09:50)
--- NOTE | 2020-02-10 10:44 | PM.PNCARD ---
Progress Note: A&P Assessment and Plan (1) Acute osteomyelitis involving ankle and foot: Qualifiers: Laterality: right Qualified Code(s): M86.171 - Other acute osteomyelitis, right ankle and foot Code(s): M86.179 - Other acute osteomyelitis, unspecified ankle and foot Status: Acute Assessment and Plan: Pt tolerated surgery well surgical fu OK to dc per ID (2) Type 2 diabetes mellitus with hyperglycemia: Qualifiers: Diabetes mellitus chcf insulin use: with intermediate accountant use Qualified Code(s): E11.65 - Type 2 diabetes mellitus with hyperglycemia; Z79.4 - detention (current) use of insulin Code(s): E11.65 - Type 2 diabetes mellitus with hyperglycemia Status: Acute (3) Chronic kidney disease: Qualifiers: Chronic kidney disease stage: stage 4 (severe) Qualified Code(s): N18.4 - Chronic kidney disease, stage 4 (severe) Code(s): N18.9 - Chronic kidney disease, unspecified Status: Chronic Assessment and Plan: nephrology fu (4) Essential (primary) hypertension: Code(s): I10 - Essential (primary) hypertension Status: Acute (5) Aortic valve stenosis: Qualifiers: Cardiac valve disease etiology: etiology unspecified Qualified Code(s): I35.0 - Nonrheumatic aortic (valve) stenosis Code(s): I35.0 - Nonrheumatic aortic (valve) stenosis Status: Acute Assessment and Plan: Pt with hx of moderate cont ASA statin fu with 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 Sleepy. Pt was seen and examined, chart was reviewed Review of Systems Review of Systems: All systems reviewed & are unremarkable except as noted in HPI and below Constitutional: Constitutional: Reports as per HPI Eyes: Eyes: Reports as per HPI ENT: Reports system reviewed and no additional complaints, except as documented and Reports as per HPI Cardiovascular: Cardiovascular: Reports as per HPI Respiratory: Respiratory: Reports as per HPI Gastrointestinal: Gastrointestinal: Reports as per HPI Genitourinary: Genitourinary: Reports as per HPI Musculoskeletal: Musculoskeletal: Reports as per HPI Exam Const: General: no acute distress Nutritional Appearance: well nourished Orientation/consciousness: patient oriented x3 HENMT: Head: normal to inspection and atraumatic Ears: hearing grossly normal bilaterally Face and sinus: normal facial exam Eyes: General: appearance normal, both eyes and all related structures Pupils: Equal, round and reactive pupils present EOM: EOMs intact bilaterally Neck: Neck: supple Chest: Chest palpation & inspection: normal inspection of the chest Resp: Effort & Inspection: normal respiratory effort and no respiratory distress Auscultation: clear to auscultation bilaterally Cardio: Jugular venous distension: no JVD Rate: regular rate Heart sounds: S1 normal heart sound present, S2 normal heart sound present and no murmurs Peripheral pulses: Peripheral pulses 2+ throughout GI: GI Palp: No abdominal tenderness Auscultation: normal bowel sounds Skin: General skin exam: normal color Neuro: General: patient oriented x3 Cranial nerves: Yes Equal, round and reactive pupils present Extrem: General: no clubbing, cyanosis or edema Left lower extremity: foot (L foot wrapped) Objective Data Vital Signs Vital Signs: Vital Signs - 24 hr 02/09/20 11:29 02/09/20 12:34 02/09/20 13:46 Temperature 36.3 C L Pulse Rate 97 95 Respiratory Rate 18 Blood Pressure 170/107 H 158/93 H Pulse Oximetry 95 96 02/09/20 21:40 02/09/20 23:21 02/10/20 06:00 Temperature 36.8 C 36.7 C Pulse Rate 100 100 98 Respiratory Rate 16 18 Blood Pressure 157/97 H 162/97 H Pulse Oximetry 94 96 Intake/Output Intake/Output: Intake & Output 02/07/20 02/08/20 02/09/20 02/10/20 23:59 23:59 23:59 23:59 Intake Total 4050 3650 2360 1000 Ou
--- NOTE | 2020-02-10 10:52 | PM.IMPN ---
Progress Note: A&P Assessment and Plan (1) Acute osteomyelitis involving ankle and foot: Qualifiers: Laterality: right Qualified Code(s): M86.171 - Other acute osteomyelitis, right ankle and foot Code(s): M86.179 - Other acute osteomyelitis, unspecified ankle and foot Status: Acute Assessment and Plan: S/p ray amputation 02/05 Intraoperative culture growing group G strep Plan for wound vac 02/09 Day P[employer] Plans for discharged delayed due to worsening renal function (2) Diabetic foot ulcer: Qualifiers: Diabetic foot ulcer location: unspecified part of foot Diabetes mellitus type: type 2 Laterality: right Non-pressure ulcer stage: unspecified non-pressure ulcer stage Qualified Code(s): E11.621 - Type 2 diabetes mellitus with foot ulcer; L97.519 - Non-pressure chronic ulcer of other part of right foot with unspecified severity Code(s): E11.621 - Type 2 diabetes mellitus with foot ulcer; L97.509 - Non-pressure chronic ulcer of other part of unspecified foot with unspecified severity Status: Acute Assessment and Plan: Continue wound care (3) Type 2 diabetes mellitus with hyperglycemia: Qualifiers: Diabetes mellitus intermediate insulin use: with terminal operations supervisor use Qualified Code(s): E11.65 - Type 2 diabetes mellitus with hyperglycemia; Z79.4 - manager intermediate (current) use of insulin Code(s): E11.65 - Type 2 diabetes mellitus with hyperglycemia Status: Acute Assessment and Plan: 02/09 FBS 82 Continue current regimen (4) Chronic kidney disease: Qualifiers: Chronic kidney disease stage: stage 4 (severe) Qualified Code(s): N18.4 - Chronic kidney disease, stage 4 (severe) Code(s): N18.9 - Chronic kidney disease, unspecified Status: Chronic Assessment and Plan: Creatinine 02/03 4.4 --> 02/07 10.4 --> 02/08 10.6 -- 02/09 11.0 02/09 UO 1500 ml last 24 hours Nephrology following and recommends continued conservative management and lab f/u (5) Peripheral vascular disease: Onset Date: Unknown Code(s): I73.9 - Peripheral vascular disease, unspecified Status: Acute Assessment and Plan: Clinically stable w/o sx's (6) Essential (primary) hypertension: Code(s): I10 - Essential (primary) hypertension Status: Acute Assessment and Plan: 02/09 130/93 Continue home regimen and monitor (7) Aortic valve stenosis: Qualifiers: Cardiac valve disease etiology: etiology unspecified Qualified Code(s): I35.0 - Nonrheumatic aortic (valve) stenosis Code(s): I35.0 - Nonrheumatic aortic (valve) stenosis Status: Acute Assessment and Plan: Moderate Currently w/o sx's Subjective Date/time seen: 02/10/20 10:52 Interval history: Admitted with osteomyelitis of right foot 02/03, status post partial ray amputation 02/05. 02/09 feels good. Tolerating diet. Objective Denied pain. Denied dyspnea. Denied GI or complaints. No abnormal bleeding. Review of Systems Review of Systems: All systems reviewed & are unremarkable except as noted in HPI and below Exam Narrative: Exam Narrative: HEENT: EOMI, PERRL, sclerae nonitcteric, pharyngeal mucosa pink and intact NECK: No JVD CHEST: Clear to auscultation. Normal effort. HEART: NL S1/S2, regular, 3/6 MAAME RUSB to neck ABDOMEN: BS+, soft, nontender, no mass, no bruits EXTREMITIES: No cyanosis, edema, or clubbing; right foot bandaged NEUROLOGIC: CN intact and symmetric to inspection. MUSCULOSKELETAL: Tone and strength symmetric. PSYCH: Alert. Oriented to person, place, and time. Objective Data Vital Signs Vital Signs: Vital Signs - 24 hr 02/09/20 11:29 02/09/20 12:34 02/09/20 13:46 Temperature 97.3 F L Pulse Rate 97 95 Respiratory Rate 18 Blood Pressure 170/107 H 158/93 H Pulse Oximetry 95 96 02/09/20 21:40 02/09/20 23:21 02/10/20 06:00 Temperature 98.3 F 98.0 F Pulse Rate 100 100
[2020-02-10 11:52] LABS: Glucose Point of Care 101 (65-105)
--- NOTE | 2020-02-10 12:30 | WPDINFPN2 ---
Progress Note: A&P Assessment and Plan (1) Acute osteomyelitis involving ankle and foot: Qualifiers: Laterality: right Qualified Code(s): M86.171 - Other acute osteomyelitis, right ankle and foot Code(s): M86.179 - Other acute osteomyelitis, unspecified ankle and foot Status: Acute Assessment and Plan: 1. Acute OM L 1st MT and proximal phalanx. Polymicrobial on cultures, Group G Strep. is the predominant pathogen. 2. Chronic ulcer, plantar 1st MT head 3. DM poor control 4. CRI, Cr continues to rise REC POD # 4 partial ray. PipTazo #6 / 42 days (through 03/17). Glycemic control underway. Wright in place. No new dose adjustments despite worsening creatinine. Ok discharge planning on present dosing. Subjective Date/time seen: 02/10/20 12:30 Interval history: few loose BMs no true diarrhea. Concerned about his BP. Appetite ok, up in room with walker, also has crutches. Exam Narrative: Exam Narrative: afebrile. Elevated BP Const: General: no acute distress Eyes: General: appearance normal, both eyes and all related structures Resp: Effort & Inspection: normal respiratory effort Auscultation: clear to auscultation bilaterally Cardio: Rate: regular rate Rhythm: regular rhythm Heart sounds: no gallops and Murmur heart sound present GI: Inspection: non-distended GI Palp: Yes Soft to palpation and No Tenderness to palpation present (GI) Skin: General skin exam: normal color and no rashes or lesions noted Extrem: Left lower extremity: normal to inspection; no edema Other: no erythema no abnormal contour no tenderness. Wright site is normal to inspection and palpation Objective Data Vital Signs Vital Signs: Vital Signs - 24 hr 02/09/20 12:34 02/09/20 13:46 02/09/20 21:40 Temperature 36.3 C L Pulse Rate 95 100 Respiratory Rate 18 Blood Pressure 158/93 H Pulse Oximetry 95 96 02/09/20 23:21 02/10/20 06:00 Temperature 36.8 C 36.7 C Pulse Rate 100 98 Respiratory Rate 16 18 Blood Pressure 157/97 H 162/97 H Pulse Oximetry 94 96 Intake/Output Intake/Output: Intake & Output 02/07/20 02/08/20 02/09/20 02/10/20 23:59 23:59 23:59 23:59 Intake Total 4050 3650 2360 1000 Output Total 1375 1800 1550 1500 Balance 2675 1850 810 -500 Meds/Results Medications: Active Medications Generic Name Dose Route Start Last Admin Trade Name Freq PRN Reason Stop Dose Admin Amlodipine Besylate 10 mg 02/05/20 09:00 02/10/20 09:48 Norvasc PO 10 mg DAILY ALEX Administration Dextrose 12.5 gm 02/04/20 16:06 Dextrose 50% Syringe IV PUSH PRN PRN Hypoglycemia Protocol Famotidine 20 mg 02/05/20 09:00 02/10/20 09:49 Pepcid PO 20 mg DAILY ALEX Administration Fenofibrate 145 mg 02/05/20 09:00 02/10/20 09:49 Tricor PO 145 mg DAILY ALEX Administration Gabapentin 300 mg 02/04/20 17:00 02/10/20 09:49 Neurontin PO 300 mg TID ALEX Administration Gemfibrozil 600 mg 02/05/20 09:00 02/10/20 09:50 Lopid PO 600 mg DAILY ALEX Administration Glucagon 1 mg 02/04/20 16:06 Glucagon For Inj IM PRN PRN Hypoglycemia Protocol Glucose 15 gm 02/04/20 16:06 Glutose 15 PO PRN PRN Hypoglycemia Protocol Heparin Sodium (Porcine) 5,000 units 02/04/20 21:00 02/10/20 09:49 Heparin Sodium SUB-Q 5,000 units Q12HR ALEX Administration Hydralazine HCl 10 mg 02/09/20 11:35 02/10/20 06:40 Apresoline Hcl Inj IV PUSH 10 mg Q8H PRN Administration Blood Pressure - High Hydromorphone HCl 1 mg 02/06/20 17:09 Dilaudid Inj IV PUSH Q2H PRN Pain Rated 7-10 Dextrose 1,000 mls @ 100 mls/hr 02/04/20 16:06 Dextrose 5% 1,000 Ml IVPB PRN PRN Hypoglycemia Protocol Piperacillin Sod/Tazobactam Sod 2.25 gm in 50 mls @ 100 mls/hr 02/05/20 12:45 02/10/20 07:41 Zosyn 2.25 Gm/D5w 50 Ml IVPB Infused Q6HR ALEX Infusion Insulin Aspart 2 - 5 units
[2020-02-10 14:00] VITALS: BP 130/93; PULSE 99; RESP 16; TEMP 36.3; O2SAT 94
--- NOTE | 2020-02-10 14:20 | PCCDE ---
diabetes education f/up (see assessment 02/06/20): met with pt; pt sts DM since 2007. Pt sts he had trouble getting/affording insulin for a while but now [facility] and confirms he has prescribed insulin. He admits he had not been SMBG but sts recently got a new BG meter from [place] as well. Pt thinks he has only had hypoglycemia a few times but this is unclear b/c he doesn't test when he feels low; he will just eat something and cannot really say what he eats. Reviewed causes, sx and tx of hypoglycemia and recommended to use glucose tabs for fast, precise tx without overtreating. Pt sts he is really trying to eat better and count carbs but having trouble finding foods that are low in carbs . I think pt was confusing carb choices and carb grams and trying to find foods with only 2 grams of carbs. Reviewed carb counting, reading labels and general guideline to have 45-75gm carb /meal for men. Wound nurses here to apply wound vac. Provided pt with Diabetes Management book and educator contact info; encouraged to call prn.
[2020-02-10] MEDS: ISOSORBIDE MONONITRATE 30 MG TAB.ER.24H PO (14:32)
[2020-02-10 16:32] LABS: Glucose Point of Care 137 (65-105)
[2020-02-10 20:55] LABS: Glucose Point of Care 143 (65-105)
[2020-02-10] MEDS: INSULIN DETEMIR 100 UNITS/ML 40 UNITS SUB-Q (20:58)
[2020-02-10 21:00] VITALS: O2SAT 94
[2020-02-10 21:01] VITALS: PULSE 106
[2020-02-10] MEDS: PANTOPRAZOLE 40 MG TABLET PO (21:02)
[2020-02-10 22:00] VITALS: BP 161/99; PULSE 108; RESP 21; TEMP 37.7; O2SAT 100
[2020-02-11] VITALS (9 sets, daily range): BP systolic 115–181; BP diastolic 84–108; PULSE 87–99; RESP 18–20; TEMP 36.1–37.2; O2SAT 90–96
[2020-02-11] MEDS: hydrALAZINE HCL 20 MG/ML VIAL 10 MG IV PUSH ×2 (00:32→06:12)
[2020-02-11 06:32] LABS: Basophils Absolute Auto 0.1 K/mm3 (0.0-0.1); Basophils Percent Auto 0.8 % (0.2-1.2); Eosinophils Absolute Auto 0.1 K/mm3 (0-0.3); Eosinophils Percent Auto 0.9 % (0-4.4); Hematocrit 32.4 % (42.0-52.0); Hemoglobin 10.1 g/dL (14.0-18.0); Immature Granulocyte Absolute 0.16 K/mm3 (0.00-0.031); Immature Granulocyte Percent A 1.2 % (0-0.5); Lymphocytes Absolute Auto 1.54 K/mm3 (0.9-3.2); Lymphocytes Percent Auto 11.8 % (18.3-44.2); Mean Corpuscular HGB Conc 31.2 g/dl (32-36); Mean Corpuscular Hemoglobin 23.2 pg (26-34); Mean Corpuscular Volume 74.5 fl (80-100); Mean Platelet Volume 8.8 fl (7.4-10.4); Monocytes Percent Auto 7.8 % (2.6-8.5); Neutrophils Absolute Auto 10.1 K/mm3 (1.3-6.7); Neutrophils Percent Auto 77.5 % (45.5-73.1); Platelet Count Result 511 k/mm3 (150-375); Red Blood Count 4.35 M/mm3 (4.6-6.20); Red Cell Distribution Width 14.6 % (11.5-14.5)
[2020-02-11 06:43] LABS: Albumin Level 3.4 g/dL (3.5-5.1); Blood Urea Nitrogen 69 mg/dL (9-20); Calcium 9.3 mg/dL (8.4-10.2); Carbon Dioxide 14 mmol/L (22-30); Chloride 108 mmol/L (98-107); Estimated CRCL calculation 8 ml/min; Estimated Glomerular Filt Rate 5; Glucose 85 mg/dL (75-110); Phosphorus 9.1 mg/dL (2.5-4.5); Potassium 3.9 mmol/L (3.4-5.0); Sodium 138 mmol/L (137-145)
--- NOTE | 2020-02-11 07:38 | P.PNNP_ITS ---
Progress Note: A&P Assessment and Plan (1) VLAD (acute kidney injury): Code(s): N17.9 - Acute kidney failure, unspecified Status: Acute Assessment and Plan: * multifactorial etiology: - acute infection (DM wound + osteomyelitis) - volume depletion (pre-renal urine lytes) - concurrent use of valsartan - relative hypotension -- systolic BPs usually run 130 - 150s from previous hospitalization * holding ARB due to renal failure. * Holding metformin due to potential lactic acidosis issue. Anion gap is only 11. * continues to make urine * renal ultrasound normal * Urine electrolytes are non pre renal * Creatinine is 11.3 now. It was 11.0 yesterday. Hopefully the creatinine will start to improve soon. * No need for dialysis so far. He may recover kidney function soon. If he de velops symptoms and we can start dialysis. (2) Chronic kidney disease: Qualifiers: Chronic kidney disease stage: stage 4 (severe) Qualified Code(s): N18.4 - Chronic kidney disease, stage 4 (severe) Code(s): N18.9 - Chronic kidney disease, unspecified Status: Chronic Assessment and Plan: * baseline creatinine runs ~ 2.0 - 2.5mg/dl * based on outpatient evaluation - this is due to diabetes and hypertension - known to have nephrotic range proteinuria (3) Acute osteomyelitis involving ankle and foot: Qualifiers: Laterality: right Qualified Code(s): M86.171 - Other acute osteomyelitis, right ankle and foot Code(s): M86.179 - Other acute osteomyelitis, unspecified ankle and foot Status: Acute Assessment and Plan: * as demonstrated by MRI of left foot * Podiatry following * s/p left foot partial first ray resection * Blood cultures are negative. * White count is mildly high but better than on admission. * Wound culture shows strep species. * He is on Piperacillin. * Dr. Henriquez is on the case (4) Essential (primary) hypertension: Code(s): I10 - Essential (primary) hypertension Status: Acute Assessment and Plan: * Systolic is between 150 and 170 for the most part. * Amlodipine 10 daily and metoprolol 100 b.i.d.. Will add a little Hydralazine. * I do not want to over control because of dysautoregulation * BP medications with parameters * follow trend of hemodynamics * Watching for a little bit of improvement before discharge. Additional Plan Subjective Date/time seen: 02/11/20 07:38 Interval history: Pankaj is feeling about the same today. He slept well. No nausea. He ended up eating his breakfast and also ate all of his lunch and dinner. No tremor or shaking. Review of Systems Cardiovascular: Cardiovascular: Reports no additional cardiovascular complaints Respiratory: Respiratory: Reports no additional respiratory complaints Gastrointestinal: Gastrointestinal: Reports no additional gastrointestinal complaints Genitourinary: Genitourinary: Reports no additional male genitourinary complaints Exam Narrative: Exam Narrative: General: WD/WN male in NAD Heart: normal S1 and S2; no rub or gallop Lungs: clear bilaterally Abdomen: soft, NT/ND, positive bowel sounds Extremities: no edema or cyanosis Skin: left foot with dressings in place. No rash Objective Data Vital Signs Vital Signs: Vital Signs - 24 hr 02/10/20 14:00 02/10/20 21:00 02/10/20 21:01 Te
--- NOTE | 2020-02-11 07:38 | PM.PNNEP ---
Progress Note: A&P Assessment and Plan (1) VLAD (acute kidney injury): Code(s): N17.9 - Acute kidney failure, unspecified Status: Acute Assessment and Plan: multifactorial etiology: - acute infection (DM wound + osteomyelitis) - volume depletion (pre-renal urine lytes) - concurrent use of valsartan - relative hypotension -- systolic BPs usually run 130 - 150s from previous hospitalization holding ARB due to renal failure. Holding metformin due to potential lactic acidosis issue. Anion gap is only 11. continues to make urine renal ultrasound normal Urine electrolytes are non pre renal Creatinine is 11.3 now. It was 11.0 yesterday. Hopefully the creatinine will start to improve soon. No need for dialysis so far. He may recover kidney function soon. If he develops symptoms and we can start dialysis. (2) Chronic kidney disease: Qualifiers: Chronic kidney disease stage: stage 4 (severe) Qualified Code(s): N18.4 - Chronic kidney disease, stage 4 (severe) Code(s): N18.9 - Chronic kidney disease, unspecified Status: Chronic Assessment and Plan: baseline creatinine runs ~ 2.0 - 2.5mg/dl based on outpatient evaluation - this is due to diabetes and hypertension - known to have nephrotic range proteinuria (3) Acute osteomyelitis involving ankle and foot: Qualifiers: Laterality: right Qualified Code(s): M86.171 - Other acute osteomyelitis, right ankle and foot Code(s): M86.179 - Other acute osteomyelitis, unspecified ankle and foot Status: Acute Assessment and Plan: as demonstrated by MRI of left foot Podiatry following s/p left foot partial first ray resection Blood cultures are negative. White count is mildly high but better than on admission. Wound culture shows strep species. He is on Piperacillin. Dr. Henriquez is on the case (4) Essential (primary) hypertension: Code(s): I10 - Essential (primary) hypertension Status: Acute Assessment and Plan: Systolic is between 150 and 170 for the most part. Amlodipine 10 daily and metoprolol 100 b.i.d.. Will add a little Hydralazine. I do not want to over control because of dysautoregulation BP medications with parameters follow trend of hemodynamics Watching for a little bit of improvement before discharge. Additional Plan Subjective Date/time seen: 02/11/20 07:38 Interval history: Pankaj is feeling about the same today. He slept well. No nausea. He ended up eating his breakfast and also ate all of his lunch and dinner. No tremor or shaking. Review of Systems Cardiovascular: Cardiovascular: Reports no additional cardiovascular complaints Respiratory: Respiratory: Reports no additional respiratory complaints Gastrointestinal: Gastrointestinal: Reports no additional gastrointestinal complaints Genitourinary: Genitourinary: Reports no additional male genitourinary complaints Exam Narrative: Exam Narrative: General: WD/WN male in NAD Heart: normal S1 and S2; no rub or gallop Lungs: clear bilaterally Abdomen: soft, NT/ND, positive bowel sounds Extremities: no edema or cyanosis Skin: left foot with dressings in place. No rash Objective Data Vital Signs Vital Signs: Vital Signs - 24 hr 02/10/20 14:00 02/10/20 21:00 02/10/20 21:01 Temperature 36.3 C L Pulse Rate 99 106 H Respiratory Rate 16 Blood Pressure 130/93 H Pulse Oximetry 94 94 02/10/20 22:00 02/11/20 00:00 02/11/20 02:30 Temperature 37.7 C H Pulse Rate 108 H Respiratory Rate 21 H Blood Pressure 161/99 H 160/100 H 154/96 H Pulse Oximetry 100 02/11/20 07:36 Temperature 36.7 C Pulse Rate 99 Respiratory Rate 18 Blood Pressure 172/100 H Pulse Oximetry 96 Intake/Output Intake/Output: Intake & Output 02/08/20 02/09/20 02/10/20 02/11/20 23:59 23:59 23:59 23:59 Intake Total 3650 2360 2100 940
[2020-02-11] MEDS: METOPROLOL SUCCINATE EXT REL 100 MG TABCR PO ×2 (08:03→21:11)
[2020-02-11] MEDS: VENLAFAXINE HCL 25 MG TABLET PO ×2 (08:04→16:54)
[2020-02-11] MEDS: HEPARIN SODIUM 5,000 UNITS/ML VIAL 5000 UNITS SUB-Q ×2 (08:04→21:12)
[2020-02-11] MEDS: VENLAFAXINE HCL 75 MG TABLET PO ×2 (08:04→16:54)
[2020-02-11] MEDS: GABAPENTIN 300 MG CAPSULE PO ×3 (08:04→16:54)
[2020-02-11] MEDS: FENOFIBRATE NANOCRYSTALLIZED 145 MG TABLET PO (08:04)
[2020-02-11] MEDS: gemfibroziL 600 MG TABLET PO (08:04)
[2020-02-11] MEDS: FAMOTIDINE 20 MG TABLET PO (08:04)
[2020-02-11] MEDS: ISOSORBIDE MONONITRATE 30 MG TAB.ER.24H PO (08:04)
[2020-02-11] MEDS: AMLODIPINE BESYLATE 5 MG TABLET 10 MG PO (08:04)
[2020-02-11] MEDS: PRAVASTATIN SODIUM 20 MG TABLET 80 MG PO (08:04)
[2020-02-11 08:16] LABS: Glucose Point of Care 80 (65-105)
[2020-02-11 11:34] LABS: Glucose Point of Care 140 (65-105)
[2020-02-11 11:39] LABS: Chloride Rand Ur < 20 mmol/L (32-290); Creatinine Random Urine 45 mg/dL (20-320)
--- NOTE | 2020-02-11 13:54 | PCOTNOTE ---
Attempted to see patient for second time this date, upon entering patient sleeping. Therapist woke patient and patient stated He would just like to rest - patient not seen for OT this date. Will continue plan of care tomorrow, 02/12/2020.
--- NOTE | 2020-02-11 14:08 | WPDINFPN2 ---
Progress Note: A&P Assessment and Plan (1) Acute osteomyelitis involving ankle and foot: Qualifiers: Laterality: right Qualified Code(s): M86.171 - Other acute osteomyelitis, right ankle and foot Code(s): M86.179 - Other acute osteomyelitis, unspecified ankle and foot Status: Acute Assessment and Plan: 1. Acute OM L 1st MT and proximal phalanx. Polymicrobial on cultures, Group G Strep. is the predominant pathogen. B frag also isolated from OR specimen 2. Chronic ulcer, plantar 1st MT head 3. DM poor control 4. CRI, Cr continues to rise REC POD # 5 partial ray. PipTazo #7 / 42 days (through 03/17). Glycemic control underway. Wright in place. No new dose adjustments despite worsening creatinine. Ok discharge planning on present dosing. Subjective Date/time seen: 02/11/20 14:08 Interval history: no new complaints Exam Narrative: Exam Narrative: afebrile Const: General: no acute distress Resp: Auscultation: clear to auscultation bilaterally GI: Inspection: non-distended GI Palp: Yes Soft to palpation and No Tenderness to palpation present (GI) Extrem: Left lower extremity: normal to inspection Other: vac in place Objective Data Vital Signs Vital Signs: Vital Signs - 24 hr 02/10/20 21:00 02/10/20 21:01 02/10/20 22:00 Temperature 37.7 C H Pulse Rate 106 H 108 H Respiratory Rate 21 H Blood Pressure 161/99 H Pulse Oximetry 94 100 02/11/20 00:00 02/11/20 02:30 02/11/20 07:36 Temperature 36.7 C Pulse Rate 99 Respiratory Rate 18 Blood Pressure 160/100 H 154/96 H 172/100 H Pulse Oximetry 96 02/11/20 08:03 02/11/20 08:10 02/11/20 10:00 Temperature Pulse Rate 97 99 Respiratory Rate Blood Pressure 181/108 H 127/84 Pulse Oximetry 02/11/20 13:40 Temperature 36.1 C L Pulse Rate 87 Respiratory Rate 18 Blood Pressure 115/103 H Pulse Oximetry 95 Intake/Output Intake/Output: Intake & Output 02/08/20 02/09/20 02/10/20 02/11/20 23:59 23:59 23:59 23:59 Intake Total 3650 2360 2100 1500 Output Total 1800 1550 1500 900 Balance 1850 810 600 600 Meds/Results Medications: Active Medications Generic Name Dose Route Start Last Admin Trade Name Freq PRN Reason Stop Dose Admin Amlodipine Besylate 10 mg 02/05/20 09:00 02/11/20 08:04 Norvasc PO 10 mg DAILY ALEX Administration Dextrose 12.5 gm 02/04/20 16:06 Dextrose 50% Syringe IV PUSH PRN PRN Hypoglycemia Protocol Famotidine 20 mg 02/05/20 09:00 02/11/20 08:04 Pepcid PO 20 mg DAILY ALEX Administration Fenofibrate 145 mg 02/05/20 09:00 02/11/20 08:04 Tricor PO 145 mg DAILY ALEX Administration Gabapentin 300 mg 02/04/20 17:00 02/11/20 13:14 Neurontin PO 300 mg TID ALEX Administration Gemfibrozil 600 mg 02/05/20 09:00 02/11/20 08:04 Lopid PO 600 mg DAILY ALEX Administration Glucagon 1 mg 02/04/20 16:06 Glucagon For Inj IM PRN PRN Hypoglycemia Protocol Glucose 15 gm 02/04/20 16:06 Glutose 15 PO PRN PRN Hypoglycemia Protocol Heparin Sodium (Porcine) 5,000 units 02/04/20 21:00 02/11/20 08:04 Heparin Sodium SUB-Q 5,000 units Q12HR ALEX Administration Hydralazine HCl 10 mg 02/11/20 06:07 02/11/20 06:12 Apresoline Hcl Inj IV PUSH 10 mg Q4H PRN Administration Blood Pressure - High Hydromorphone HCl 1 mg 02/06/20 17:09 Dilaudid Inj IV PUSH Q2H PRN Pain Rated 7-10 Dextrose 1,000 mls @ 100 mls/hr 02/04/20 16:06 Dextrose 5% 1,000 Ml IVPB PRN PRN Hypoglycemia Protocol Piperacillin Sod/Tazobactam Sod 2.25 gm in 50 mls @ 100 mls/hr 02/05/20 12:45 02/11/20 12:00 Zosyn 2.25 Gm/D5w 50 Ml IVPB Infused Q6HR ALEX Infusion Insulin Aspart 2 - 5 units 02/04/20 17:00 02/11/20 11:30 Novolog SUB-Q Not Given TIDWM [facility] Protocol Insulin Detemir 40 units 02/09/20 21:00 02/10/20 20:58 Levemir SUB-Q
--- NOTE | 2020-02-11 14:31 | PCDIET ---
Nutrition LOS Complete: Pt current nutrition is DBCC. Nutrition recommendation: Recommend adding a low PO4 diet to DBCC diet Last recorded weight is 97.5 kg. Bowel Motility: 02/10 + BM Labs Reviewed: PO4 9.1, A1c 10.1 GFR 5 Meds Noted:Insulin, Zofran, Protonix Additional Notes: Pt is on a DBCC diet with controlled BS of 140 today. PO4 elevated at 9.1. Recommend adding a binder and low PO4 diet. Pt is not on dialysis at this point. PO intake has been 51% of meals over the last several days. Pt instructions on a DBCC diet added to d/c paperwork. We will continue to monitor pt PO intake and labs every five days.
--- NOTE | 2020-02-11 15:21 | PM.IMPN ---
Progress Note: A&P Assessment and Plan (1) Acute osteomyelitis involving ankle and foot: Qualifiers: Laterality: right Qualified Code(s): M86.171 - Other acute osteomyelitis, right ankle and foot Code(s): M86.179 - Other acute osteomyelitis, unspecified ankle and foot Status: Acute Assessment and Plan: S/p ray amputation 02/05 Intraoperative culture growing group G strep Plan for wound vac 02/09 Day Pip/Mart Plans for discharged delayed due to worsening renal function (2) Diabetic foot ulcer: Qualifiers: Diabetic foot ulcer location: unspecified part of foot Diabetes mellitus type: type 2 Laterality: right Non-pressure ulcer stage: unspecified non-pressure ulcer stage Qualified Code(s): E11.621 - Type 2 diabetes mellitus with foot ulcer; L97.519 - Non-pressure chronic ulcer of other part of right foot with unspecified severity Code(s): E11.621 - Type 2 diabetes mellitus with foot ulcer; L97.509 - Non-pressure chronic ulcer of other part of unspecified foot with unspecified severity Status: Acute Assessment and Plan: Continue wound care (3) Type 2 diabetes mellitus with hyperglycemia: Qualifiers: Diabetes mellitus half-way insulin use: with long term care pharmacist use Qualified Code(s): E11.65 - Type 2 diabetes mellitus with hyperglycemia; 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 Code(s): E11.65 - Type 2 diabetes mellitus with hyperglycemia Status: Acute Assessment and Plan: 02/10 FBS 85 Continue current regimen (4) Chronic kidney disease: Qualifiers: Chronic kidney disease stage: stage 4 (severe) Qualified Code(s): N18.4 - Chronic kidney disease, stage 4 (severe) Code(s): N18.9 - Chronic kidney disease, unspecified Status: Chronic Assessment and Plan: Creatinine 02/03 4.4 --> 02/07 10.4 --> 02/08 10.6 -- 02/09 11.0-->02/10 11.3 02/09 UO 1500 ml last 24 hours Nephrology following and recommends continued conservative management and lab f/u (5) Peripheral vascular disease: Onset Date: Unknown Code(s): I73.9 - Peripheral vascular disease, unspecified Status: Acute Assessment and Plan: Clinically stable w/o sx's (6) Essential (primary) hypertension: Code(s): I10 - Essential (primary) hypertension Status: Acute Assessment and Plan: 02/10 bp as above Continue home regimen and monitor (7) Aortic valve stenosis: Qualifiers: Cardiac valve disease etiology: etiology unspecified Qualified Code(s): I35.0 - Nonrheumatic aortic (valve) stenosis Code(s): I35.0 - Nonrheumatic aortic (valve) stenosis Status: Acute Assessment and Plan: Moderate Currently w/o sx's Subjective Date/time seen: 02/11/20 15:21 Interval history: Date of visit 02/10. Admitted with osteomyelitis of left foot 02/03, status post partial ray amputation 02/05. feels good today with a little bit of shortness of breath last p.m.. Tolerating diet. Objective Denied pain. Denied dyspnea. Denied GI or complaints. No abnormal bleeding. Exam Narrative: Exam Narrative: Blood pressure 116/96 pulse is 86 saturating 95% on room air afebrile HEENT: PERRL, sclerae nonitcteric, NECK: No JVD CHEST: Clear to auscultation. Normal effort. HEART: NL S1/S2, regular, 3/6 MAAME RUSB to neck ABDOMEN: BS+, soft, nontender, no mass, EXTREMITIES: No , edema, , left foot bandaged NEUROLOGIC: CN intact and symmetric to inspection. PSYCH: Alert. Oriented to person, place, and time. Objective Data Vital Signs Vital Signs: Vital Signs - 24 hr 02/10/20 21:00 02/10/20 21:01 02/10/20 22:00 Temperature 37.7 C H Pulse Rate 106 H 108 H Respiratory Rate 21 H Blood Pressure 161/99 H Pulse Oximetry 94 100 02/11/20 00:00 02/11/20 02:30 02/11/20 07:36 Temperature 36.7 C Pulse Rate 99 Respiratory Rate 18 Blood Pressure 160/100 H 154/96 H 172/100 H Pulse
[2020-02-11 16:23] LABS: Glucose Point of Care 132 (65-105)
[2020-02-11] MEDS: PANTOPRAZOLE 40 MG TABLET PO (21:11)
[2020-02-11] MEDS: INSULIN DETEMIR 100 UNITS/ML 40 UNITS SUB-Q (21:15)
[2020-02-11 21:30] LABS: Glucose Point of Care 164 (65-105)
[2020-02-12] VITALS (8 sets, daily range): BP systolic 140–174; BP diastolic 90–103; PULSE 90–98; RESP 20; TEMP 36.2–37.4; O2SAT 91–97
[2020-02-12] MEDS: hydrALAZINE HCL 20 MG/ML VIAL 10 MG IV PUSH ×2 (00:46→05:47)
[2020-02-12 06:14] LABS: Basophils Absolute Auto 0.1 K/mm3 (0.0-0.1); Basophils Percent Auto 0.7 % (0.2-1.2); Eosinophils Absolute Auto 0.2 K/mm3 (0-0.3); Eosinophils Percent Auto 1.6 % (0-4.4); Hematocrit 31.4 % (42.0-52.0); Hemoglobin 10.1 g/dL (14.0-18.0); Immature Granulocyte Absolute 0.17 K/mm3 (0.00-0.031); Immature Granulocyte Percent A 1.4 % (0-0.5); Lymphocytes Absolute Auto 1.48 K/mm3 (0.9-3.2); Lymphocytes Percent Auto 12.3 % (18.3-44.2); Mean Corpuscular HGB Conc 32.2 g/dl (32-36); Mean Corpuscular Hemoglobin 23.5 pg (26-34); Mean Corpuscular Volume 73.2 fl (80-100); Mean Platelet Volume 8.6 fl (7.4-10.4); Monocytes Absolute Auto 0.9 K/mm3 (0.1-0.6); Monocytes Percent Auto 7.8 % (2.6-8.5); Neutrophils Absolute Auto 9.2 K/mm3 (1.3-6.7); Neutrophils Percent Auto 76.2 % (45.5-73.1); Platelet Count Result 479 k/mm3 (150-375); Red Blood Count 4.29 M/mm3 (4.6-6.20); Red Cell Distribution Width 14.6 % (11.5-14.5); White Blood Count 12.1 K/mm3 (4.5-10.0)
[2020-02-12 06:28] LABS: Albumin Level 3.3 g/dL (3.5-5.1); Blood Urea Nitrogen 72 mg/dL (9-20); Carbon Dioxide 13 mmol/L (22-30); Chloride 108 mmol/L (98-107); Estimated CRCL calculation 8 ml/min; Estimated Glomerular Filt Rate 5; Glucose 84 mg/dL (75-110); Phosphorus 9.6 mg/dL (2.5-4.5); Potassium 3.8 mmol/L (3.4-5.0); Sodium 139 mmol/L (137-145)
[2020-02-12 07:51] LABS: Glucose Point of Care 81 (65-105)
[2020-02-12] MEDS: SEVELAMER CARBONATE 800 MG TABLET 1600 MG PO ×3 (08:37→17:58)
[2020-02-12] MEDS: gemfibroziL 600 MG TABLET PO (08:37)
[2020-02-12] MEDS: FAMOTIDINE 20 MG TABLET PO (08:38)
[2020-02-12] MEDS: ISOSORBIDE MONONITRATE 30 MG TAB.ER.24H PO (08:38)
[2020-02-12] MEDS: METOPROLOL SUCCINATE EXT REL 100 MG TABCR PO ×2 (08:38→21:16)
[2020-02-12] MEDS: VENLAFAXINE HCL 75 MG TABLET PO ×2 (08:38→17:59)
[2020-02-12] MEDS: HEPARIN SODIUM 5,000 UNITS/ML VIAL 5000 UNITS SUB-Q ×2 (08:38→21:13)
[2020-02-12] MEDS: PRAVASTATIN SODIUM 20 MG TABLET 80 MG PO (08:38)
[2020-02-12] MEDS: VENLAFAXINE HCL 25 MG TABLET PO ×2 (08:38→17:58)
[2020-02-12] MEDS: AMLODIPINE BESYLATE 5 MG TABLET 10 MG PO (08:39)
[2020-02-12] MEDS: FENOFIBRATE NANOCRYSTALLIZED 145 MG TABLET PO (08:39)
[2020-02-12] MEDS: GABAPENTIN 300 MG CAPSULE PO ×3 (08:39→17:57)
--- NOTE | 2020-02-12 10:43 | P.PNNP_ITS ---
Progress Note: A&P Assessment and Plan (1) VLAD (acute kidney injury): Code(s): N17.9 - Acute kidney failure, unspecified Status: Acute Assessment and Plan: * multifactorial etiology: - acute infection (DM wound + osteomyelitis) - volume depletion (pre-renal urine lytes) - concurrent use of valsartan - relative hypotension -- systolic BPs usually run 130 - 150s from previous hospitalization * holding ARB due to renal failure. * Holding metformin due to potential lactic acidosis issue. Anion gap is only 11. * continues to make urine * renal ultrasound normal * Urine electrolytes are non pre renal * No eosinophilia. Urine eosinophils negative as well. No rash or fever to implicate allergic interstitial nephritis. * Creatinine is 11.6. * Frustrating very slow rise in his creatinine. No symptoms such that he would need to start dialysis. Waiting for the creatinine to begin descending. (2) Chronic kidney disease: Qualifiers: Chronic kidney disease stage: stage 4 (severe) Qualified Code(s): N18.4 - Chronic kidney disease, stage 4 (severe) Code(s): N18.9 - Chronic kidney disease, unspecified Status: Chronic Assessment and Plan: * baseline creatinine runs ~ 2.0 - 2.5mg/dl * based on outpatient evaluation - this is due to diabetes and hypertension - known to have nephrotic range proteinuria (3) Acute osteomyelitis involving ankle and foot: Qualifiers: Laterality: right Qualified Code(s): M86.171 - Other acute osteomyelitis, right ankle and foot Code(s): M86.179 - Other acute osteomyelitis, unspecified ankle and foot Status: Acute Assessment and Plan: * as demonstrated by MRI of left foot * Podiatry following * s/p left foot partial first ray resection * Blood cultures are negative. * White count is mildly high but better than on admission. * Wound culture shows strep species. * He is on Piperacillin. * Dr. Henriquez is on the case (4) Essential (primary) hypertension: Code(s): I10 - Essential (primary) hypertension Status: Acute Assessment and Plan: * Systolic is between 150 and 170 for the most part. * Amlodipine 10 daily and metoprolol 100 b.i.d.. * Will change amlodipine to nifedipine. * I do not want to over control because of dysautoregulation * Additional Plan Subjective Date/time seen: 02/12/20 10:43 Interval history: Pankaj is feeling about the same today. He slept well. No nausea. No abdominal pain. Appetite is good. He ate 3 meals yesterday. No chest pain or shortness of breath. No swelling. Review of Systems Cardiovascular: Cardiovascular: Reports no additional cardiovascular complaints Respiratory: Respiratory: Reports no additional respiratory complaints Gastrointestinal: Gastrointestinal: Reports no additional gastrointestinal complaints Genitourinary: Genitourinary: Reports no additional male genitourinary complaints Exam Narrative: Exam Narrative: General: WD/WN male in NAD Heart: normal S1 and S2; no rub or gallop Lungs: clear Abdomen: soft, NT/ND, positive bowel sounds Extremities: no edema or cyanosis Skin: No rash. Dressings on his foot Objective Data Vital Signs Vital Signs: Vital Signs - 24 hr 02/11/20 13:40 02/11/20 20:00 02/11/20 21:11 Temperature 36.1 C L 37.2 C Pulse Ra
--- NOTE | 2020-02-12 10:43 | PM.PNNEP ---
Progress Note: A&P Assessment and Plan (1) VLAD (acute kidney injury): Code(s): N17.9 - Acute kidney failure, unspecified Status: Acute Assessment and Plan: multifactorial etiology: - acute infection (DM wound + osteomyelitis) - volume depletion (pre-renal urine lytes) - concurrent use of valsartan - relative hypotension -- systolic BPs usually run 130 - 150s from previous hospitalization holding ARB due to renal failure. Holding metformin due to potential lactic acidosis issue. Anion gap is only 11. continues to make urine renal ultrasound normal Urine electrolytes are non pre renal No eosinophilia. Urine eosinophils negative as well. No rash or fever to implicate allergic interstitial nephritis. Creatinine is 11.6. Frustrating very slow rise in his creatinine. No symptoms such that he would need to start dialysis. Waiting for the creatinine to begin descending. (2) Chronic kidney disease: Qualifiers: Chronic kidney disease stage: stage 4 (severe) Qualified Code(s): N18.4 - Chronic kidney disease, stage 4 (severe) Code(s): N18.9 - Chronic kidney disease, unspecified Status: Chronic Assessment and Plan: baseline creatinine runs ~ 2.0 - 2.5mg/dl based on outpatient evaluation - this is due to diabetes and hypertension - known to have nephrotic range proteinuria (3) Acute osteomyelitis involving ankle and foot: Qualifiers: Laterality: right Qualified Code(s): M86.171 - Other acute osteomyelitis, right ankle and foot Code(s): M86.179 - Other acute osteomyelitis, unspecified ankle and foot Status: Acute Assessment and Plan: as demonstrated by MRI of left foot Podiatry following s/p left foot partial first ray resection Blood cultures are negative. White count is mildly high but better than on admission. Wound culture shows strep species. He is on Piperacillin. Dr. Henriquez is on the case (4) Essential (primary) hypertension: Code(s): I10 - Essential (primary) hypertension Status: Acute Assessment and Plan: Systolic is between 150 and 170 for the most part. Amlodipine 10 daily and metoprolol 100 b.i.d.. Will change amlodipine to nifedipine. I do not want to over control because of dysautoregulation Additional Plan Subjective Date/time seen: 02/12/20 10:43 Interval history: Pankaj is feeling about the same today. He slept well. No nausea. No abdominal pain. Appetite is good. He ate 3 meals yesterday. No chest pain or shortness of breath. No swelling. Review of Systems Cardiovascular: Cardiovascular: Reports no additional cardiovascular complaints Respiratory: Respiratory: Reports no additional respiratory complaints Gastrointestinal: Gastrointestinal: Reports no additional gastrointestinal complaints Genitourinary: Genitourinary: Reports no additional male genitourinary complaints Exam Narrative: Exam Narrative: General: WD/WN male in NAD Heart: normal S1 and S2; no rub or gallop Lungs: clear Abdomen: soft, NT/ND, positive bowel sounds Extremities: no edema or cyanosis Skin: No rash. Dressings on his foot Objective Data Vital Signs Vital Signs: Vital Signs - 24 hr 02/11/20 13:40 02/11/20 20:00 02/11/20 21:11 Temperature 36.1 C L 37.2 C Pulse Rate 87 98 90 Respiratory Rate 18 20 Blood Pressure 115/103 H 162/98 H Pulse Oximetry 95 90 02/12/20 00:30 02/12/20 04:00 02/12/20 06:45 Temperature 36.7 C 37.4 C Pulse Rate 92 92 Respiratory Rate 20 20 Blood Pressure 173/103 H 174/101 H 170/90 H Pulse Oximetry 91 94 02/12/20 08:38 Temperature Pulse Rate 92 Respiratory Rate Blood Pressure Pulse Oximetry Intake/Output Intake/Output: Intake & Output 02/09/20 02/10/20 02/11/20 02/12/20 23:59 23:59 23:59 23:59 Intake Total 2360 2100 2210 550 Output Total 1550 4828 352 2040 Balance
[2020-02-12 11:27] LABS: Glucose Point of Care 96 (65-105)
--- NOTE | 2020-02-12 12:24 | WPDINFPN2 ---
Progress Note: A&P Assessment and Plan (1) Acute osteomyelitis involving ankle and foot: Qualifiers: Laterality: right Qualified Code(s): M86.171 - Other acute osteomyelitis, right ankle and foot Code(s): M86.179 - Other acute osteomyelitis, unspecified ankle and foot Status: Acute Assessment and Plan: 1. Acute OM L 1st MT and proximal phalanx. Polymicrobial on cultures 2. Chronic ulcer, plantar 1st MT head 3. DM poor control 4. CRI, Cr continues to rise 5. Poor IV access peripherally REC POD # 6 partial ray. PipTazo #8 / 42 days (through 03/17). Glycemic control underway. Wright in place, can use this rather than peripheral. No new dose adjustments despite worsening creatinine. Await approval of Nephrology for discharge. Subjective Date/time seen: 02/12/20 12:24 Interval history: no new complaints. Peripheral IV access tenuous Exam Narrative: Exam Narrative: afebrile Const: General: no acute distress Eyes: General: appearance normal, both eyes and all related structures Resp: Effort & Inspection: normal respiratory effort Auscultation: clear to auscultation bilaterally Cardio: Rate: regular rate Rhythm: regular rhythm Skin: General skin exam: normal color and no rashes or lesions noted Extrem: Other: left ankle and foot dressed, vac in place, no proximal erythema nor tenderness not warmth Objective Data Vital Signs Vital Signs: Vital Signs - 24 hr 02/11/20 13:40 02/11/20 20:00 02/11/20 21:11 Temperature 36.1 C L 37.2 C Pulse Rate 87 98 90 Respiratory Rate 18 20 Blood Pressure 115/103 H 162/98 H Pulse Oximetry 95 90 02/12/20 00:30 02/12/20 04:00 02/12/20 06:45 Temperature 36.7 C 37.4 C Pulse Rate 92 92 Respiratory Rate 20 20 Blood Pressure 173/103 H 174/101 H 170/90 H Pulse Oximetry 91 94 02/12/20 08:38 02/12/20 10:00 Temperature 36.6 C Pulse Rate 92 98 Respiratory Rate 20 Blood Pressure 140/99 H Pulse Oximetry 93 Intake/Output Intake/Output: Intake & Output 02/09/20 02/10/20 02/11/20 02/12/20 23:59 23:59 23:59 23:59 Intake Total 2360 2100 2210 790 Output Total 1550 4196 599 6055 Balance 190 722 0760 -1310 Meds/Results Medications: Active Medications Generic Name Dose Route Start Last Admin Trade Name Freq PRN Reason Stop Dose Admin Amlodipine Besylate 10 mg 02/05/20 09:00 02/12/20 08:39 Norvasc PO 10 mg DAILY ALEX Administration Dextrose 12.5 gm 02/04/20 16:06 Dextrose 50% Syringe IV PUSH PRN PRN Hypoglycemia Protocol Famotidine 20 mg 02/05/20 09:00 02/12/20 08:38 Pepcid PO 20 mg DAILY ALEX Administration Fenofibrate 145 mg 02/05/20 09:00 02/12/20 08:39 Tricor PO 145 mg DAILY ALEX Administration Gabapentin 300 mg 02/04/20 17:00 02/12/20 08:39 Neurontin PO 300 mg TID ALEX Administration Gemfibrozil 600 mg 02/05/20 09:00 02/12/20 08:37 Lopid PO 600 mg DAILY ALEX Administration Glucagon 1 mg 02/04/20 16:06 Glucagon For Inj IM PRN PRN Hypoglycemia Protocol Glucose 15 gm 02/04/20 16:06 Glutose 15 PO PRN PRN Hypoglycemia Protocol Heparin Sodium (Porcine) 5,000 units 02/04/20 21:00 02/12/20 08:38 Heparin Sodium SUB-Q 5,000 units Q12HR ALEX Administration Hydralazine HCl 10 mg 02/11/20 06:07 02/12/20 05:47 Apresoline Hcl Inj IV PUSH 10 mg Q4H PRN Administration Blood Pressure - High Hydromorphone HCl 1 mg 02/06/20 17:09 Dilaudid Inj IV PUSH Q2H PRN Pain Rated 7-10 Dextrose 1,000 mls @ 100 mls/hr 02/04/20 16:06 Dextrose 5% 1,000 Ml IVPB PRN PRN Hypoglycemia Protocol Piperacillin Sod/Tazobactam Sod 2.25 gm in 50 mls @ 100 mls/hr 02/05/20 12:45 02/12/20 11:16 Zosyn 2.25 Gm/D5w 50 Ml IVPB 100 mls/hr Q6HR ALEX Administration Insulin Aspart 2 - 5 units 02/04/20 17:00 02/12/20 11:26 Novolog SUB-Q Not Given TIDWM [facility] Protocol
--- NOTE | 2020-02-12 13:12 | PCOTNOTE ---
Attempted to see patient this pm, however patient was with wound care at this time.
--- NOTE | 2020-02-12 14:48 | PM.IMPN ---
Progress Note: A&P Assessment and Plan (1) Acute osteomyelitis involving ankle and foot: Qualifiers: Laterality: right Qualified Code(s): M86.171 - Other acute osteomyelitis, right ankle and foot Code(s): M86.179 - Other acute osteomyelitis, unspecified ankle and foot Status: Acute Assessment and Plan: S/p ray amputation 02/05 Intraoperative culture growing group G strep Day Pip/Mart Plans for discharged delayed due to worsening renal function (2) Diabetic foot ulcer: Qualifiers: Diabetic foot ulcer location: unspecified part of foot Diabetes mellitus type: type 2 Laterality: right Non-pressure ulcer stage: unspecified non-pressure ulcer stage Qualified Code(s): E11.621 - Type 2 diabetes mellitus with foot ulcer; L97.519 - Non-pressure chronic ulcer of other part of right foot with unspecified severity Code(s): E11.621 - Type 2 diabetes mellitus with foot ulcer; L97.509 - Non-pressure chronic ulcer of other part of unspecified foot with unspecified severity Status: Acute Assessment and Plan: Continue wound care (3) Type 2 diabetes mellitus with hyperglycemia: Qualifiers: Diabetes mellitus assisted insulin use: with assisted use Qualified Code(s): E11.65 - Type 2 diabetes mellitus with hyperglycemia; 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 Code(s): E11.65 - Type 2 diabetes mellitus with hyperglycemia Status: Acute Assessment and Plan: 02/11 FBS 84 Continue current regimen (4) Chronic kidney disease: Qualifiers: Chronic kidney disease stage: stage 4 (severe) Qualified Code(s): N18.4 - Chronic kidney disease, stage 4 (severe) Code(s): N18.9 - Chronic kidney disease, unspecified Status: Chronic Assessment and Plan: Creatinine 02/03 4.4 --> 02/07 10.4 --> 02/08 10.6 -- 02/09 11.0-->02/10 11.3--> 02/11 11.6 Nephrology following and recommends continued conservative management and lab f/u (5) Peripheral vascular disease: Onset Date: Unknown Code(s): I73.9 - Peripheral vascular disease, unspecified Status: Acute Assessment and Plan: Clinically stable w/o sx's (6) Essential (primary) hypertension: Code(s): I10 - Essential (primary) hypertension Status: Acute Assessment and Plan: 02/11 bp as above and rising so nephrology added nifedipine 60 qd (7) Aortic valve stenosis: Qualifiers: Cardiac valve disease etiology: etiology unspecified Qualified Code(s): I35.0 - Nonrheumatic aortic (valve) stenosis Code(s): I35.0 - Nonrheumatic aortic (valve) stenosis Status: Acute Assessment and Plan: Moderate Currently w/o sx's Subjective Date/time seen: 02/12/20 14:48 Interval history: Date of visit 02/11. Admitted with osteomyelitis of left foot 02/03, status post partial ray amputation 02/05. feels good today.. Tolerating diet. Objective Denied pain. Denied dyspnea. Denied GI or complaints. No abnormal bleeding. Exam Narrative: Exam Narrative: Blood pressure 144/94 pulse is 90 saturating 93% on room air afebrile HEENT: PERRL, sclerae nonitcteric, NECK: No JVD CHEST: Clear to auscultation. Normal effort. HEART: NL S1/S2, regular, 3/6 MAAME RUSB to neck ABDOMEN: BS+, soft, nontender, no mass, EXTREMITIES: No , edema, , left foot bandaged NEUROLOGIC: CN intact and symmetric to inspection. PSYCH: Alert. Oriented to person, place, and time. Objective Data Vital Signs Vital Signs: Vital Signs - 24 hr 02/11/20 20:00 02/11/20 21:11 02/12/20 00:30 Temperature 37.2 C 36.7 C Pulse Rate 98 90 92 Respiratory Rate 20 20 Blood Pressure 162/98 H 173/103 H Pulse Oximetry 90 91 02/12/20 04:00 02/12/20 06:45 02/12/20 08:38 Temperature 37.4 C Pulse Rate 92 92 Respiratory Rate 20 Blood Pressure 174/101 H 170/90 H Pulse Oximetry 94 02/12/20 10:00 02/12/20 14:00 Temperature 36.6 C 36.2 C L
[2020-02-12 16:46] LABS: Glucose Point of Care 134 (65-105)
[2020-02-12] MEDS: INSULIN DETEMIR 100 UNITS/ML 40 UNITS SUB-Q (21:13)
[2020-02-12] MEDS: PANTOPRAZOLE 40 MG TABLET PO (21:17)
[2020-02-12 22:57] LABS: Glucose Point of Care 178 (65-105)
[2020-02-13 05:53] LABS: Basophils Absolute Auto 0.1 K/mm3 (0.0-0.1); Basophils Percent Auto 0.5 % (0.2-1.2); Eosinophils Absolute Auto 0.2 K/mm3 (0-0.3); Eosinophils Percent Auto 2.1 % (0-4.4); Hemoglobin 9.6 g/dL (14.0-18.0); Immature Granulocyte Absolute 0.19 K/mm3 (0.00-0.031); Immature Granulocyte Percent A 1.7 % (0-0.5); Lymphocytes Absolute Auto 1.69 K/mm3 (0.9-3.2); Lymphocytes Percent Auto 15.2 % (18.3-44.2); Mean Corpuscular Hemoglobin 23.6 pg (26-34); Mean Corpuscular Volume 73.9 fl (80-100); Mean Platelet Volume 8.5 fl (7.4-10.4); Monocytes Percent Auto 9.2 % (2.6-8.5); Neutrophils Percent Auto 71.3 % (45.5-73.1); Platelet Count Result 448 k/mm3 (150-375); Red Blood Count 4.06 M/mm3 (4.6-6.20); Red Cell Distribution Width 14.7 % (11.5-14.5); White Blood Count 11.2 K/mm3 (4.5-10.0)
[2020-02-13 05:56] LABS: Albumin Level 3.3 g/dL (3.5-5.1); Blood Urea Nitrogen 79 mg/dL (9-20); Calcium 9.2 mg/dL (8.4-10.2); Carbon Dioxide 15 mmol/L (22-30); Chloride 107 mmol/L (98-107); Estimated CRCL calculation 8 ml/min; Estimated Glomerular Filt Rate 5; Glucose 80 mg/dL (75-110); Phosphorus 9.9 mg/dL (2.5-4.5); Potassium 3.7 mmol/L (3.4-5.0); Sodium 138 mmol/L (137-145)
[2020-02-13 06:00] VITALS: BP 143/73; PULSE 87; RESP 16; TEMP 36.7; O2SAT 93
[2020-02-13 07:53] LABS: Glucose Point of Care 71 (65-105)
[2020-02-13] MEDS: VENLAFAXINE HCL 25 MG TABLET PO (08:01)
[2020-02-13] MEDS: gemfibroziL 600 MG TABLET PO (08:01)
[2020-02-13] MEDS: FENOFIBRATE NANOCRYSTALLIZED 145 MG TABLET PO (08:01)
[2020-02-13] MEDS: ISOSORBIDE MONONITRATE 30 MG TAB.ER.24H PO (08:01)
[2020-02-13] MEDS: METOPROLOL SUCCINATE EXT REL 100 MG TABCR PO (08:01)
[2020-02-13] MEDS: GABAPENTIN 300 MG CAPSULE PO ×2 (08:01→11:58)
[2020-02-13] MEDS: NIFEdipine 30 MG TAB.ER.24 60 MG PO (08:01)
[2020-02-13] MEDS: FAMOTIDINE 20 MG TABLET PO (08:02)
[2020-02-13] MEDS: HEPARIN SODIUM 5,000 UNITS/ML VIAL 5000 UNITS SUB-Q (08:02)
[2020-02-13] MEDS: PRAVASTATIN SODIUM 20 MG TABLET 80 MG PO (08:02)
[2020-02-13] MEDS: VENLAFAXINE HCL 75 MG TABLET PO (08:02)
[2020-02-13] MEDS: SEVELAMER CARBONATE 800 MG TABLET 1600 MG PO ×2 (08:02→11:58)
--- NOTE | 2020-02-13 10:18 | PM.PNNEP ---
Progress Note: A&P Assessment and Plan (1) VLAD (acute kidney injury): Code(s): N17.9 - Acute kidney failure, unspecified Status: Acute Assessment and Plan: multifactorial etiology: - acute infection (DM wound + osteomyelitis) - volume depletion (pre-renal urine lytes) - concurrent use of valsartan - relative hypotension -- systolic BPs usually run 130 - 150s from previous hospitalization holding ARB due to renal failure. Holding metformin due to potential lactic acidosis issue. Anion gap is only 11. continues to make urine renal ultrasound normal Urine electrolytes are non pre renal No eosinophilia. Urine eosinophils negative as well. No rash or fever to implicate allergic interstitial nephritis. Creatinine is 11.6 still today. He has no symptoms. Is no cardiac rub. Long discussion with Dr. Martinez and with the patient. Since he has no symptoms and it looks like his creatinine has plateaued, and since he is very anxious about getting home, it seems a reasonable plan to discharge him. He can get labs tomorrow and Monday and then see Dr. Frazier on Monday in the office. If he develops nausea or any other symptoms he should call Dr. Frazier. (2) Chronic kidney disease: Qualifiers: Chronic kidney disease stage: stage 4 (severe) Qualified Code(s): N18.4 - Chronic kidney disease, stage 4 (severe) Code(s): N18.9 - Chronic kidney disease, unspecified Status: Chronic Assessment and Plan: baseline creatinine runs ~ 2.0 - 2.5mg/dl based on outpatient evaluation - this is due to diabetes and hypertension - known to have nephrotic range proteinuria (3) Acute osteomyelitis involving ankle and foot: Qualifiers: Laterality: right Qualified Code(s): M86.171 - Other acute osteomyelitis, right ankle and foot Code(s): M86.179 - Other acute osteomyelitis, unspecified ankle and foot Status: Acute Assessment and Plan: as demonstrated by MRI of left foot Podiatry following s/p left foot partial first ray resection Blood cultures are negative. White count is mildly high but better than on admission. Wound culture shows strep species. He is on Piperacillin. Dr. Henriquez is on the case He will get outpatient antibiotics. (4) Essential (primary) hypertension: Code(s): I10 - Essential (primary) hypertension Status: Acute Assessment and Plan: Systolic is down to 140s now. Continue the same medications as an outpatient. Additional Plan Subjective Date/time seen: 02/13/20 10:18 Interval history: Pankaj is feeling about the same today. He slept well. He has become increasingly frustrated with the long hospital stay. His creatinine is creeping up very slowly and this is the only thing keeping him here. He said that he is willing to go to the lab every day at home if he can just be discharged because it is so expensive for him to be in the hospital. Review of Systems Cardiovascular: Cardiovascular: Reports no additional cardiovascular complaints Respiratory: Respiratory: Reports no additional respiratory complaints Gastrointestinal: Gastrointestinal: Reports no additional gastrointestinal complaints Genitourinary: Genitourinary: Reports no additional male genitourinary complaints Exam Narrative: Exam Narrative: General: WD/WN male in NAD Heart: normal S1 and S2; no rub or gallop Lungs: clear to auscultation Abdomen: soft, NT/ND, positive bowel sounds Extremities: no edema or cyanosis Skin: No rash. Dressings on his foot Objective Data Vital Signs Vital Signs: Vital Signs - 24 hr 02/12/20 14:00 02/12/20 21:16 02/12/20 22:00 Temperature 36.2 C L 37.0 C Pulse Rate 90 90 98 Respiratory Rate 20 20 Blood Pressure 144/94 H 165/99 H Pulse Oximetry 91 97 02/13/20 06:00 Temperature 36.7 C Pulse Rate 87 Respiratory Rate 16 Blood Pressure 143/73
[2020-02-13 11:39] LABS: Glucose Point of Care 86 (65-105)
--- NOTE | 2020-02-13 13:47 | WPDINFPN2 ---
Progress Note: A&P Assessment and Plan (1) Acute osteomyelitis involving ankle and foot: Qualifiers: Laterality: right Qualified Code(s): M86.171 - Other acute osteomyelitis, right ankle and foot Code(s): M86.179 - Other acute osteomyelitis, unspecified ankle and foot Status: Acute Assessment and Plan: 1. Acute OM L 1st MT and proximal phalanx. Polymicrobial on cultures 2. Chronic ulcer, plantar 1st MT head 3. DM poor control 4. CRI, Cr now stable 5. Poor IV access peripherally REC POD # 7 partial ray. PipTazo #9 / 42 days (through 03/17), at present dosing. Ok discharge, see me in office, 2-3 weeks Subjective Date/time seen: 02/13/20 13:47 Interval history: sleeping not disturbed, to be discharged today Exam Narrative: Exam Narrative: afebrile Const: General: no acute distress Extrem: Left lower extremity: normal to inspection Objective Data Vital Signs Vital Signs: Vital Signs - 24 hr 02/12/20 14:00 02/12/20 21:16 02/12/20 22:00 Temperature 36.2 C L 37.0 C Pulse Rate 90 90 98 Respiratory Rate 20 20 Blood Pressure 144/94 H 165/99 H Pulse Oximetry 91 97 02/13/20 06:00 Temperature 36.7 C Pulse Rate 87 Respiratory Rate 16 Blood Pressure 143/73 H Pulse Oximetry 93 Intake/Output Intake/Output: Intake & Output 02/10/20 02/11/20 02/12/20 02/13/20 23:59 23:59 23:59 23:59 Intake Total 2100 2210 2060 620 Output Total 6796 902 6074 400 Balance 600 1310 -1540 220 Meds/Results Medications: Active Medications Generic Name Dose Route Start Last Admin Trade Name Freq PRN Reason Stop Dose Admin Dextrose 12.5 gm 02/04/20 16:06 Dextrose 50% Syringe IV PUSH PRN PRN Hypoglycemia Protocol Famotidine 20 mg 02/05/20 09:00 02/13/20 08:02 Pepcid PO 20 mg DAILY ALEX Administration Fenofibrate 145 mg 02/05/20 09:00 02/13/20 08:01 Tricor PO 145 mg DAILY ALEX Administration Gabapentin 300 mg 02/04/20 17:00 02/13/20 11:58 Neurontin PO 300 mg TID ALEX Administration Gemfibrozil 600 mg 02/05/20 09:00 02/13/20 08:01 Lopid PO 600 mg DAILY ALEX Administration Glucagon 1 mg 02/04/20 16:06 Glucagon For Inj IM PRN PRN Hypoglycemia Protocol Glucose 15 gm 02/04/20 16:06 Glutose 15 PO PRN PRN Hypoglycemia Protocol Heparin Sodium (Beef Lung) 50 units 02/12/20 12:50 02/13/20 06:43 Heparin Flush 50 Units/5 Ml IV PUSH 50 units Q6H ALEX Administration Heparin Sodium (Porcine) 5,000 units 02/04/20 21:00 02/13/20 08:02 Heparin Sodium SUB-Q 5,000 units Q12HR ALEX Administration Hydralazine HCl 10 mg 02/11/20 06:07 02/12/20 05:47 Apresoline Hcl Inj IV PUSH 10 mg Q4H PRN Administration Blood Pressure - High Hydromorphone HCl 1 mg 02/06/20 17:09 Dilaudid Inj IV PUSH Q2H PRN Pain Rated 7-10 Dextrose 1,000 mls @ 100 mls/hr 02/04/20 16:06 Dextrose 5% 1,000 Ml IVPB PRN PRN Hypoglycemia Protocol Piperacillin Sod/Tazobactam Sod 2.25 gm in 50 mls @ 100 mls/hr 02/05/20 12:45 02/13/20 12:28 Zosyn 2.25 Gm/D5w 50 Ml IVPB Infused Q6HR ALEX Infusion Insulin Aspart 2 - 5 units 02/04/20 17:00 02/13/20 11:54 Novolog SUB-Q Not Given TIDWM [facility] Protocol Insulin Detemir 40 units 02/09/20 21:00 02/12/20 21:13 Levemir SUB-Q 40 units HS [facility] Administration Isosorbide Mononitrate 30 mg 02/10/20 13:30 02/13/20 08:01 Imdur PO 30 mg QAM ALEX Administration Metformin HCl 1,000 mg 02/05/20 09:00 02/06/20 08:26 Glucophage PO Not Given DAILY [facility] Metoprolol Succinate 100 mg 02/09/20 21:00 02/13/20 08:01 Toprol Xl PO 100 mg Q12HR ALEX Administration Nifedipine 60 mg 02/13/20 09:00 02/13/20 08:01 Procardia Xl PO 60 mg QAM ALEX Administration Pantoprazole Sodium 40 mg 02/04/20 21:00 02/12/20 21:17 Protonix PO 40 mg HS ALEX Administration Pravas
--- NOTE | 2020-02-14 17:12 | PM.DS ---
DS: Diagnosis Admitting Diagnosis Admitting Diagnosis: Type 2 diabetes mellitus with foot ulcer Discharge Diagnosis (1) Acute osteomyelitis involving ankle and foot: Qualifiers: Laterality: right Qualified Code(s): M86.171 - Other acute osteomyelitis, right ankle and foot Code(s): M86.179 - Other acute osteomyelitis, unspecified ankle and foot Status: Acute Assessment and Plan: S/p ray amputation 02/05 Intraoperative culture growing group G strep Six weeks of IV Pip/Mart planned and received 9 days while here with 33 remaining (2) Diabetic foot ulcer: Qualifiers: Diabetic foot ulcer location: unspecified part of foot Diabetes mellitus type: type 2 Laterality: right Non-pressure ulcer stage: unspecified non-pressure ulcer stage Qualified Code(s): E11.621 - Type 2 diabetes mellitus with foot ulcer; L97.519 - Non-pressure chronic ulcer of other part of right foot with unspecified severity Code(s): E11.621 - Type 2 diabetes mellitus with foot ulcer; L97.509 - Non-pressure chronic ulcer of other part of unspecified foot with unspecified severity Status: Acute Assessment and Plan: Continue wound care (3) Type 2 diabetes mellitus with hyperglycemia: Qualifiers: 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: with predatory animal exterminator use Qualified Code(s): E11.65 - Type 2 diabetes mellitus with hyperglycemia; 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 Code(s): E11.65 - Type 2 diabetes mellitus with hyperglycemia Status: Acute Assessment and Plan: Blood sugar well controlled while here will continue his Levemir regime at home (4) Chronic kidney disease: Qualifiers: Chronic kidney disease stage: stage 4 (severe) Qualified Code(s): N18.4 - Chronic kidney disease, stage 4 (severe) Code(s): N18.9 - Chronic kidney disease, unspecified Status: Chronic Assessment and Plan: Creatinine 02/03 4.4 --> 02/07 10.4 --> 02/08 10.6 -- 02/09 11.0-->02/10 11.3--> 02/11 11.6 and repeat on the with 11.6 Nephrology following and recommends continued conservative management since he had no symptoms of uremia and no signs of fluid overload. Home health will draw all basic metabolic profile on the and he will see Dr. Frazier on the (5) Peripheral vascular disease: Onset Date: Unknown Code(s): I73.9 - Peripheral vascular disease, unspecified Status: Acute Assessment and Plan: Clinically stable w/o sx's (6) Essential (primary) hypertension: Code(s): I10 - Essential (primary) hypertension Status: Acute Assessment and Plan: 02/11 bp as above and rising so nephrology added calcium channel artie , off KIRK-inhibitor with worsening renal function (7) Aortic valve stenosis: Qualifiers: Cardiac valve disease etiology: etiology unspecified Qualified Code(s): I35.0 - Nonrheumatic aortic (valve) stenosis Code(s): I35.0 - Nonrheumatic aortic (valve) stenosis Status: Acute Assessment and Plan: Moderate Currently w/o sx's Follow-up in a future DS: Summary Hospital Course Hospital Course: 54-year-old hypertensive diabetic who underwent amputation for osteomyelitis toe and found to have strep on culture. Seen by ID and recommended 6 weeks IV Zosyn and had completed 9 days here. Creatinine yaw up to 11.6 plateaued there on 2 days before discharge so was able to be discharged home with home health to follow. He'll complete the course of antibiotics at home and have his renal status monitor frequently Time Spent with Patient Time attestation: Total time spent providing and/or coordinating discharge services: 35 minutes Exam Narrative: Exam Narrative: Condition on discharge Blood pressure 144/72 pulse is 86 saturating 93% on room air afebrile Pupils equal reactive light sclera anicteric Lungs clear CV regular rate rhythm Abdomen is soft nontender Extremit
--- NOTE | 2020-02-18 10:32 | P.CONGS_ITS ---
Assessment and Plan Assessment and plan (1) Acute osteomyelitis involving ankle and foot: Qualifiers: Laterality: right Qualified Code(s): M86.171 - Other acute osteomyelitis, right ankle and foot Code(s): M86.179 - Other acute osteomyelitis, unspecified ankle and foot Status: Acute (2) Encounter for central line placement: Code(s): Z45.2 - Encounter for adjustment and management of vascular access device Status: Acute Assessment and Plan: No consult needed. Patient seen for placement central venous access catheter. History of Present Illness Consult details Consult date: 02/18/20 [facility] Social History Social History Smoking packs per day: 2 Smoking cigarettes per day: 40.0 Years smoked: 25 Smoking pack-years: 50.00 Smoking status: Former smoker Tobacco type: cigarettes Smoking end date: 10/23/07 Alcohol intake: never Substance use: never Substance use type: does not use Gender identity (if verbalized by the patient): Male Spiritual care concerns: No Agree to blood products: Yes Meds Home Medications and Allergies Home Medications Medication Instructions Recorded Confirmed Type amlodipine 10 mg PO DAILY 08/30/19 02/17/20 History gemfibrozil 600 mg PO DAILY 08/30/19 02/17/20 History pantoprazole 40 mg PO HS 08/30/19 02/17/20 History ranitidine HCl 150 mg PO DAILY 08/30/19 02/17/20 History venlafaxine 100 mg PO BID 08/30/19 02/17/20 History fenofibrate micronized 134 mg 134 mg PO DAILY 09/11/19 02/17/20 History capsule gabapentin 300 mg capsule 300 mg PO TID 09/11/19 02/17/20 History pen needle, diabetic 31 gauge x #30 each 09/11/19 02/17/20 Rx 5/16 sildenafil 100 mg tablet 100 mg PO DAILY 09/11/19 02/17/20 History alogliptin 25 mg tablet 12.5 mg PO DAILY 09/16/19 02/17/20 History metoprolol succinate 100 mg 100 mg PO DAILY 11/12/19 02/17/20 History capsule sprinkle, ext. release 24 hr insulin detemir U-100 100 unit/mL 44 unit SUB-Q BID #30 ml 01/01/20 02/17/20 Rx subcutaneous solution insulin syringe-needle U-100 0.5 #200 each 01/01/20 02/17/20 Rx mL 29 gauge x 1/2 metoprolol succinate [Toprol XL] 100 mg PO Q12HR #60 tablet 02/13/20 02/17/20 Rx piperacillin-tazobactam 2.25 g IV Q6HR 33 Days #132 ea 02/13/20 02/17/20 Rx sevelamer carbonate [Renvela] 1,600 mg PO TIDWM #100 tablet 02/13/20 02/17/20 Rx pravastatin 80 mg tablet 80 mg PO DAILY #30 tablet 02/14/20 02/17/20 Rx Allergies Allergy/AdvReac Type Severity Reaction Status Date / Time No Known Allergies Allergy Verified 02/04/20 12:40 Results Labs Result diagrams: 02/13/20 04:58 02/13/20 04:58 Labs: All other labs normal. Quality VTE Prophylaxis VTE prophylaxis: pharmacologic ordered (Currently on Lovenox 1 milligram/kilogram for AFib/RVR.)
== END 2020-02-13 14:27 | disposition home health service (06) | DRG 617 ==
PROVIDERS: Internal Medicine Nephrology; Podiatrist Foot & Ankle Surgery; Surgery; Admitting Provider Family Medicine; PCP Family Medicine; Visit Provider Internal Medicine
PROC: 0Y6N0Z9 Detachment at Left Foot, Partial 1st Ray, Open Approach (ICD-10-PCS; principal; 2020-02-06 14:00)
PROC: 02HV33Z Insertion of Infusion Device into Superior Vena Cava, Percutaneous Approach (ICD-10-PCS; 2020-02-06 14:00)
DX: E11.69 Type 2 diabetes mellitus with other specified complication (principal); M86.172 Other acute osteomyelitis, left ankle and foot; Q23.1 Congenital insufficiency of aortic valve; B95.4 Other streptococcus as the cause of diseases classified elsewhere; I12.9 Hypertensive chronic kidney disease with stage 1 through stage 4 chronic kidney disease, or unspecified chronic kidney disease; N18.4 Chronic kidney disease, stage 4 (severe); E11.65 Type 2 diabetes mellitus with hyperglycemia; E11.621 Type 2 diabetes mellitus with foot ulcer; L97.509 Non-pressure chronic ulcer of other part of unspecified foot with unspecified severity; N17.0 Acute kidney failure with tubular necrosis; E11.51 Type 2 diabetes mellitus with diabetic peripheral angiopathy without gangrene; E11.42 Type 2 diabetes mellitus with diabetic polyneuropathy; E11.22 Type 2 diabetes mellitus with diabetic chronic kidney disease; E11.319 Type 2 diabetes mellitus with unspecified diabetic retinopathy without macular edema; I34.2 Nonrheumatic mitral (valve) stenosis; K21.9 Gastro-esophageal reflux disease without esophagitis; K44.9 Diaphragmatic hernia without obstruction or gangrene; E78.2 Mixed hyperlipidemia; D53.9 Nutritional anemia, unspecified; Z86.73 Personal history of transient ischemic attack (TIA), and cerebral infarction without residual deficits; Z79.4 Long term (current) use of insulin; Z87.891 Personal history of nicotine dependence
CPT/HCPCS: 36415; 71250; 73620; 73718; 76775; 77001; 80048; 80053; 80069; 81050; 82436; 82565; 82570; 83036; 84156; 84300; 85025; 85999; 87040; 87070; 87075; 87076; 87147; 87205; 88305; 88307; 88311; 93925; 97110; 97116; 97161; 97165; 97530; 97535; A9270; C1751; J0360; J0690; J1100; J1642; J1644; J1815; J2250; J2370; J2405; J2543; J2704; J3010; J3370; J7030; J7040; J7120

== ENCOUNTER 2020-02-16 21:15 | Inpatient (IN) | payer OTHER, SELFPAY ==
--- NOTE | ~2020-02-16 | XR_ITS ---
EXAMINATION: XR chest port-a-cath/central DATE: 02/17/2020 12:30 INDICATION: Central line placement. TECHNIQUE: A single frontal view of the chest was obtained. COMPARISON: Chest single view at 10 00 a.m. FINDINGS: There are patchy airspace opacities involving all lung zones with a perihilar predominance, right worse than left. No pleural effusion or pneumothorax. The heart size is normal. There is a lef t subclavian central catheter with tip in superior vena cava. A right internal jugular central venous catheter is seen with tip in the superior vena cava. IMPRESSION: 1. New central line tip in superior vena cava. 2. Diffuse lung disease with slight improvement, consistent with moderate pulmonary edema versus pneu monia. Reviewed, dictated and finalized at location A. IMPRESSION: 1. New central line tip in superior vena cava. 2. Diffuse lung disease with slight improvement, consistent with moderate pulmo nary edema versus pneumonia.
--- NOTE | ~2020-02-16 | XR_ITS ---
EXAMINATION: XR fl guide central line place DATE: 02/26/2020 11:01 INDICATION: Tunneled dialysis catheter insertion TECHNIQUE: 2 fluoroscopic spot images of the central and upper chest were obtained during procedure p erformed by Dr. Arellano. Radiologist was not present for the imaging or procedure. The amount of fluo roscopy time used during this procedure was 0.2 minutes. COMPARISON: 02/19/2020 FINDINGS: Large bore dual lumen right internal jugular central venous catheter with distal tip in the right atrium. There is a second tunneled left subclavian central venous catheter with distal tip carlitos r the superior cavoatrial junction. No evident pneumothorax or pleural effusion. Heart size is normal . Calcified right bronchial lymph node consistent with old granulomatous disease. IMPRESSION: 1. Right internal jugular and left subclavian central venous catheters in expected positions as detai led above. See procedure note for further detail. Reviewed, dictated and finalized at location A. IMPRESSION: 1. Right internal jugular and left subclavian central venous catheters in expec mariajose positions as detailed above. See procedure note for further detail.
--- NOTE | ~2020-02-16 | XR_ITS ---
EXAMINATION: XR chest 1V portable DATE: 02/19/2020 05:52 INDICATION: Shortness of breath. TECHNIQUE: A single frontal view of the chest was obtained. COMPARISON: Chest 2 views 02/18/2020 FINDINGS: There are airspace opacities in all lung zones bilaterally with a perihilar predominance. A calcified right lung nodule and calcified right hilar and subcarinal lymph nodes are consistent with old granulomatous disease. No pleural effusion or pneumothorax. The heart size is normal. A right in ternal jugular central venous catheter is seen with tip in the superior vena cava. A left subclavian central venous catheter is seen with tip at the superior cavoatrial junction. IMPRESSION: 1. Stable diffuse lung disease, consistent with pulmonary edema versus pneumonia. Reviewed, dictated and finalized at location A. IMPRESSION: 1. Stable diffuse lung disease, consistent with pulmonary edema versus pneumoni a.
--- NOTE | ~2020-02-16 | XR_ITS ---
EXAMINATION: XR chest 1V portable DATE: 02/16/2020 22:14 INDICATION: Dyspnea. Hypoxia. TECHNIQUE: A single frontal view of the chest was obtained. COMPARISON: Chest single view 02/06/2020, chest CT 02/07/2020 FINDINGS: There are airspace opacities involving all lung zones bilaterally with a perihilar predomin ance. No pleural effusion or pneumothorax. The heart size is normal. Calcified right hilar and subcar inal lymph nodes are consistent with old granulomatous disease. A left subclavian central venous cath eter is seen with tip in the superior vena cava. IMPRESSION: 1. New diffuse lung disease, consistent with moderate pulmonary edema versus pneumonia. Reviewed, dictated and finalized at location A. IMPRESSION: 1. New diffuse lung disease, consistent with moderate pulmonary edema versus pn eumonia.
--- NOTE | ~2020-02-16 | XR_ITS ---
XR chest port-a-cath/central 02/26/2020 11:15 Indication: Insertion of tunnel catheter Procedure: AP portable chest Comparison: Comparison to multiple prior studies sequentially, with oldest reviewed study dated 02/15. Findings: Heart size normal. Improving diffuse bilateral airspace disease. No pleural effusion or pne umothorax. No acute osseous abnormality. Right IJ dual-lumen central venous catheter tips in the caud al aspect of the SVC. Left subclavian central line tip in the SVC. No pleural effusion or pneumothora x. Impression: 1: Improving bilateral airspace disease which may represent resolving edema or pneumonia. Reviewed, dictated and finalized at location A. Impression: 1: Improving bilateral airspace disease which may represent resolving edema or pneumonia.
--- NOTE | ~2020-02-16 | XR_ITS ---
EXAMINATION: XR chest 2V EXAM DATE: 02/18/2020 15:49 INDICATION: Shortness of breath and fever. TECHNIQUE: Portable AP frontal chest x-ray was obtained. Comparison is made to prior examination from 02/17/2020. FINDINGS: There is right-sided internal jugular catheter. There is also a longer left subclavian cath eter. There is moderate amount of bilateral airspace disease with relative sparing of the periphery, likely edema and/or pneumonia. There is no pneumothorax suspected. There are no pleural effusions. C ardiac silhouette is stable in size compared to prior exam. There are no osseous abnormalities identi fied. IMPRESSION: 1. Moderate amount of bilateral perihilar edema and/or pneumonia unchanged. Reviewed, dictated and finalized at location A.
--- NOTE | ~2020-02-16 | US_ITS ---
EXAMINATION: US biopsy renal DATE: 02/25/2020 12:48 INDICATION: Acute renal insufficiency TECHNIQUE: The procedure including the risks, benefits, and alternatives was discussed with the patie nt. Risks discussed included bleeding and infection. The patient understood the risks and agreed to p roceed. A timeout was performed to verify the patient's name, date of , and procedure to be p erformed. The skin overlying the left kidney was prepped and draped in usual sterile fashion. Anest hetic was administered with 1% lidocaine subcutaneously. An 18 gauge core biopsy needle was then use d to obtain 3 core biopsy specimens under continuous sonographic guidance. On preliminary evaluation the tissue samples were deemed adequate by the pathologist. The entry site was cleaned and dressed. T here was no evident post procedure hemorrhage or other immediate complications. FINDINGS: Ultrasound images demonstrate the needle in the left kidney. There is bilateral increased r enal cortical echogenicity consistent with medical renal disease. IMPRESSION: 1. Ultrasound-guided random left kidney core needle biopsy. 2. Bilateral increased renal cortical echogenicity consistent with medical renal disease. Reviewed, dictated and finalized at location A. IMPRESSION: 1. Ultrasound-guided random left kidney core needle biopsy. 2. Bilateral increased renal cortical echogenicity consistent with medical hunter l disease.
[2020-02-16 21:20] VITALS: BP 128/82; PULSE 80; PULSE 81; RESP 26; TEMP 36.4; O2SAT 77; O2SAT 85
--- NOTE | 2020-02-16 21:35 | ECG_ITS ---
Measurements Intervals [place] Rate: 80 P: 9 PA: 149 QRS: 3 QRSD: 104 T: 41 QT: 401 QTc: 465 Interpretive Statements SINUS RHYTHM EARLY PRECORDIAL R/S TRANSITION BASELINE ARTIFACT- I, II BORDERLINE ECG Electronically Signed On 02-17-2020 7:01:24 CDT by Jairo French D.O.
--- NOTE | 2020-02-16 21:38 | ED.SOB ---
HPI - SOB/Dyspnea General Chief Complaint: Shortness of Breath/Dyspnea Stated Complaint: SOB Time Seen by Provider: 02/16/20 21:21 Source: patient Mode of arrival: ambulatory Limitations: no limitations History of Present Illness HPI Narrative: Patient is a 54-year-old male presents to the emergency department with complaint of shortness of breath. Patient reports onset of shortness of breath 2 days ago. Patient was just discharged from the hospital 2 days ago after being hospitalized for left foot osteomyelitis and partial amputation. Patient has had lower sternal chest pain, shortness of breath, and cough. Patient developed acute on chronic renal failure while hospitalized. Patient is currently receiving IV Zosyn through a left subclavian tunneled Wright catheter at home. Patient is not on dialysis, but creatinine at time of discharge was 11. Patient also noted to have aortic stenosis, but no findings of congestive heart failure. Patient states he has continued to have good urine output and has not had any edema or fluid retention. MD elicited complaint: shortness of breath Pertinent past history: diabetes Context: recent illness Timing: constant Associated symptoms: chest pain and cough Treatment prior to arrival: oxygen Related Data Home oxygen amount: none Home Medications Medication Instructions Recorded Confirmed amlodipine 10 mg PO DAILY 08/30/19 02/17/20 gemfibrozil 600 mg PO DAILY 08/30/19 02/17/20 pantoprazole 40 mg PO HS 08/30/19 02/17/20 ranitidine HCl 150 mg PO DAILY 08/30/19 02/17/20 venlafaxine 100 mg PO BID 08/30/19 02/17/20 fenofibrate micronized 134 mg 134 mg PO DAILY 09/11/19 02/17/20 capsule gabapentin 300 mg capsule 300 mg PO TID 09/11/19 02/17/20 sildenafil 100 mg tablet 100 mg PO DAILY 09/11/19 02/17/20 alogliptin 25 mg tablet 12.5 mg PO DAILY 09/16/19 02/17/20 metoprolol succinate 100 mg 100 mg PO DAILY 11/12/19 02/17/20 capsule sprinkle, ext. release 24 hr Allergies Allergy/AdvReac Type Severity Reaction Status Date / Time No Known Allergies Allergy Verified 02/04/20 12:40 Review of Systems Review of Systems: All systems reviewed & are unremarkable except as noted in HPI and below Constitutional: Constitutional: Denies fever(s) Cardiovascular: Cardiovascular: Reports chest pain, Denies pedal edema and Denies leg edema Respiratory: Respiratory: Reports cough and Reports dyspnea PMFSH Past Medical History Medical History Aortic valve stenosis Arthritis Chronic kidney disease Diabetic foot ulcer Diabetic foot ulcer Probing to bone Essential (primary) hypertension FHx: prostate cancer Finger fracture GERD (gastroesophageal reflux disease) Head ache Heart murmur Hiatal hernia History of cerebrovascular accident (CVA) in adulthood Hy kid NOS w cr kid I-IV Impingement syndrome of left shoulder Iron deficiency Long-term insulin use Microcytic anemia Mixed hyperlipidemia Neuropathy Peripheral vascular disease (Unknown) Pneumonia Prostate cancer screening 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el release History of tonsillectomy Social History Social History Smoking packs per day: 2 Smoking cigarettes per day: 40.0 Years smoked: 25 Smoking pack-years: 50.00 Smoking status: Former smoker Tobacco type: cigarettes Smoking end date: 10/23/07 Alcohol intake: never Substance use: never Substance use type: does not use Gender identity (if verbalized by the patient): Male Spiritual care concerns: No Agree to blood products: Yes Exam Const: General: cooperative, no acute distress and alert Nutritional Appearance: well nourished Orient[place]
--- NOTE | 2020-02-16 21:47 | PC.NURSE ---
Pt has subclavian picc man cath that ERp gave permission to use for medication and blood draw.
[2020-02-16 21:50] LABS: Hematocrit 28.9 % (42.0-52.0); Mean Corpuscular HGB Conc 31.1 g/dl (32-36); Mean Corpuscular Hemoglobin 23.4 pg (26-34); Mean Corpuscular Volume 75.1 fl (80-100); Mean Platelet Volume 9.4 fl (7.4-10.4); Platelet Count Result 454 k/mm3 (150-375); Red Blood Count 3.85 M/mm3 (4.6-6.20); Red Cell Distribution Width 16.2 % (11.5-14.5); White Blood Count 20.5 K/mm3 (4.5-10.0)
[2020-02-16 21:54] LABS: Alveolar/Arterial O2 Gradient 222.1 mmHg; Base Excess ABG -16.9 mEq/l (+/-2.0); Carboxyhemoglobin 0.3 % THb (0-2.0); Fractional Inspired Oxygen 44 %; HCO3 ABG 8.7 mEq/l (22.0-26.0); Methemoglobin ABG 0.3 %THb (0-1.5); Oxygen Content ABG 12.5 %vol (16.0-22.0); Oxygen Saturation ABG 90.9 % (95.0-100.0); Oxyhemoglobin 86.7 % THb (90.0-100.0); PO2 ABG 67.9 mmHg (80.0-100.0); PO2 FiO2 Ratio Arterial Blood 1.54 %; Reduced Hemoglobin 12.7 %THb (0-5.0); Total Hemoglobin 10.2 g/dL (12.0-18.0)
[2020-02-16 21:56] LABS: PCO2 ABG 20.8 mmHg (35.0-45.0); pH ABG 7.238 (7.350-7.450)
[2020-02-16 21:57] LABS: Device NASAL CANNULA; Modified Allen's Test Pass; Site Drawn RIGHT RADIAL
[2020-02-16 22:02] LABS: INR 2.4; Prothrombin Time 25.3 Seconds (11.1-14.7)
[2020-02-16 22:03] LABS: Partial Thromboplastin Time 52.5 SECONDS (22.3-36.8)
[2020-02-16 22:06] LABS: Lymphocytes Absolute Manual 2.05 K/mm3 (1.1-4.5); Monocytes Percent Manual 1 % (3-9); Neutrophils Percent Manual 89 % (46-73); Total Cells Counted 100
[2020-02-16 22:08] LABS: Anisocytosis 2+ (NORMAL); Magnesium 2.6 mg/dL (1.6-2.3)
[2020-02-16 22:09] VITALS: BP 149/96; PULSE 79; RESP 26; O2SAT 87
[2020-02-16 22:09] LABS: Alanine Aminotransferase 256 U/L (4-50); Albumin Level 3.4 g/dL (3.5-5.1); Alkaline Phosphatase 75 U/L (38-126); Bilirubin,Total 0.9 mg/dL (0.2-1.3); Blood Urea Nitrogen 104 mg/dL (9-20); Calcium 9.1 mg/dL (8.4-10.2); Carbon Dioxide 10 mmol/L (22-30); Chloride 99 mmol/L (98-107); Estimated Glomerular Filt Rate 4; Glucose 141 mg/dL (75-110); Potassium 5.1 mmol/L (3.4-5.0); Sodium 133 mmol/L (137-145)
[2020-02-16 22:10] LABS: NT Pro B Type Natriuretic Pept > 35000 PG/ML (5-100)
[2020-02-16 22:28] LABS: Phosphorus 12.6 mg/dL (2.5-4.5)
[2020-02-16 22:29] LABS: Aspartate Amino Transferase 952 U/L (17-59)
[2020-02-16 22:30] LABS: Troponin I 0.066 ng/mL (0.000-0.034)
[2020-02-16 22:47] VITALS: BP 140/85; PULSE 78; RESP 25; O2SAT 93
[2020-02-16] MEDS: FUROSEMIDE INJ 40 MG/4 ML VIAL IV PUSH ×2 (22:48)
[2020-02-16 23:12] VITALS: RESP 26
[2020-02-17] VITALS (40 sets, daily range): BP systolic 110–152; BP diastolic 56–94; PULSE 70–91; RESP 18–26; TEMP 36.2–37; O2SAT 86–100; BMI 33.3; BMI 33.2
[2020-02-17 00:51] LABS: Glucose Point of Care 124 (65-105)
--- NOTE | 2020-02-17 00:51 | ADMGEN ---
This patient, Pankaj Bautista, was admitted to IMU Room 205-01 from ER 02/17/20 0030. Patient/family oriented to hospital policies and general routines including ID bracelet, bed and alarms, visiting hours, pain management, procedures, bathroom and other care routines, personal items, smoking policy, room service/diet, and visiting hours. Valuables list has been completed. Information on how to activate the Rapid Response Team has been discussed. Patient/Family are encouraged to report perceived risks to care and to ask questions if they do not understand what they are told or what they should do.
--- NOTE | 2020-02-17 03:29 | PM.IMHP ---
H&P: HPI History of Present Illness Chief complaint: Shortness of breath+ Narrative: This is a 54 year old Diabetic male who was just discharged from our Hospitalist service 2 days ago after he was treated for acute renal failure and underwent amputation for osteomyelitis of his toe returned to the hospital tonight with a complaint of increased shortness of breath for the past 2 days. The patient's Cr has gone up to 11.4 although he was making urine and it was thought that his kidney function might improve without dialysis. Tonight he was found to have a Cr of 12.9 and be fluid overloaded. The patient did initially complain of lower chest pain tonight in the ER. Associated symptoms included cough. The patient has been receiving IV zosyn through a left subclavian central catheter for 30 more days. He has a wound vac on his left foot+. The patient was evaluated in the ER tonight and found to be in acute respiratory failure with bilateral pulmonary edema on CXR. The patient was placed on Bipap and Nephrology has been consulted. He has no other complaints. Review of Systems Review of Systems: All systems reviewed & are unremarkable except as noted in HPI and below PMFSH Past Medical History Medical History Aortic valve stenosis Arthritis Chronic kidney disease Diabetic foot ulcer Diabetic foot ulcer Probing to bone Essential (primary) hypertension FHx: prostate cancer Finger fracture GERD (gastroesophageal reflux disease) Head ache Heart murmur Hiatal hernia History of cerebrovascular accident (CVA) in adulthood Hy kid NOS w cr kid I-IV Impingement syndrome of left shoulder Iron deficiency Long-term insulin use Microcytic anemia Mixed hyperlipidemia Neuropathy Peripheral vascular disease (Unknown) Pneumonia Prostate cancer screening 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el release History of tonsillectomy Family History Family History Mother Family history of diabetes mellitus in first degree relative Family history of malignant neoplasm of breast in first degree relative Other Family history of arthritis Family history of coronary artery disease Hypertension Social History Social History Smoking packs per day: 2 Smoking cigarettes per day: 40.0 Years smoked: 25 Smoking pack-years: 50.00 Smoking status: Former smoker Tobacco type: cigarettes Smoking end date: 10/23/07 Alcohol intake: never Substance use: never Substance use type: does not use Gender identity (if verbalized by the patient): Male Spiritual care concerns: No Agree to blood products: Yes Meds Home Medications and Allergies Home Medications Medication Instructions Recorded Confirmed Type amlodipine 10 mg PO DAILY 08/30/19 02/17/20 History gemfibrozil 600 mg PO DAILY 08/30/19 02/17/20 History pantoprazole 40 mg PO HS 08/30/19 02/17/20 History ranitidine HCl 150 mg PO DAILY 08/30/19 02/17/20 History venlafaxine 100 mg PO BID 08/30/19 02/17/20 History fenofibrate micronized 134 mg 134 mg PO DAILY 09/11/19 02/17/20 History capsule gabapentin 300 mg capsule 300 mg PO TID 09/11/19 02/17/20 History pen needle, diabetic 31 gauge x #30 each 09/11/19 02/17/20 Rx 5/16 sildenafil 100 mg tablet 100 mg PO DAILY 09/11/19 02/17/20 History alogliptin 25 mg tablet 12.5 mg PO DAILY 09/16/19 02/17/20 History metoprolol succinate 100 mg 100 mg PO DAILY 11/12/19 02/17/20 History capsule sprinkle, ext. release 24 hr insulin detemir U-100 100 unit/mL 44 unit SUB-Q BID #30 ml 01/01/20 02/17/20 Rx subcutaneous solution insulin syringe-needle U-100 0.5 #200 each 01/01/20 02/17/20 Rx
[2020-02-17 03:55] LABS: Troponin I 0.064 ng/mL (0.000-0.034)
[2020-02-17 06:46] LABS: Basophils Percent Auto 0.2 % (0.2-1.2); Eosinophils Absolute Auto 0.2 K/mm3 (0-0.3); Hematocrit 26.2 % (42.0-52.0); Hemoglobin 8.4 g/dL (14.0-18.0); Immature Granulocyte Absolute 0.32 K/mm3 (0.00-0.031); Immature Granulocyte Percent A 1.9 % (0-0.5); Lymphocytes Absolute Auto 1.58 K/mm3 (0.9-3.2); Lymphocytes Percent Auto 9.4 % (18.3-44.2); Mean Corpuscular HGB Conc 32.1 g/dl (32-36); Mean Corpuscular Hemoglobin 24.1 pg (26-34); Mean Corpuscular Volume 75.1 fl (80-100); Mean Platelet Volume 8.9 fl (7.4-10.4); Monocytes Absolute Auto 0.7 K/mm3 (0.1-0.6); Monocytes Percent Auto 4.2 % (2.6-8.5); Neutrophils Percent Auto 83.3 % (45.5-73.1); Nucleated Red Blood Cells Perc 0.2 % (0.0-0.2); Platelet Count Result 383 k/mm3 (150-375); Red Blood Count 3.49 M/mm3 (4.6-6.20); Red Cell Distribution Width 16.2 % (11.5-14.5); White Blood Count 16.8 K/mm3 (4.5-10.0)
[2020-02-17 06:58] LABS: Alanine Aminotransferase 193 U/L (4-50); Aspartate Amino Transferase 484 U/L (17-59); Blood Urea Nitrogen 112 mg/dL (9-20); Calcium 8.8 mg/dL (8.4-10.2); Carbon Dioxide 11 mmol/L (22-30); Chloride 100 mmol/L (98-107); Estimated CRCL calculation 7 ml/min; Estimated Glomerular Filt Rate 4; Glucose 108 mg/dL (75-110); Potassium 4.7 mmol/L (3.4-5.0); Sodium 132 mmol/L (137-145)
[2020-02-17 08:25] LABS: Glucose Point of Care 96 (65-105)
[2020-02-17] MEDS: FENOFIBRATE NANOCRYSTALLIZED 145 MG TABLET PO (08:28)
[2020-02-17] MEDS: SODIUM BICARBONATE TAB 650 MG TABLET 1300 MG PO (08:29)
[2020-02-17] MEDS: VENLAFAXINE HCL 25 MG TABLET 100 MG PO (08:29)
[2020-02-17] MEDS: FAMOTIDINE 20 MG TABLET PO (08:32)
[2020-02-17] MEDS: PRAVASTATIN SODIUM 20 MG TABLET 80 MG PO (08:33)
--- NOTE | 2020-02-17 08:35 | PM.IMPN ---
Progress Note: A&P Assessment and Plan (1) Acute respiratory failure with hypoxia: Code(s): J96.01 - Acute respiratory failure with hypoxia Status: Acute Assessment and Plan: Patient received IV lasix in the ER. Clinically it appears patient is improving and is now on 5L O2 NC. He is still confused per nursing. Nephrology and General Surgery have been consulted and appreciate recommendations. It appears patient will be going for dialysis catheter and hopefully dialysis in the near future. Continue to wean off O2 as tolerated RT assess and treat. Monitor closely Nephrology following (2) Volume overload: Qualifiers: Hypervolemia type: other Qualified Code(s): E87.79 - Other fluid overload Code(s): E87.70 - Fluid overload, unspecified Status: Acute Assessment and Plan: Secondary to ongoing renal failure. Appears to be improving since IV Lasix in ER. Still crackles on exam. The patient will likely benefit from dialysis. Likely dialysis catheter placement today. Hopefully dialysis in near future per Nephrology Monitor respiratory status (3) VLAD (acute kidney injury): Code(s): N17.9 - Acute kidney failure, unspecified Status: Acute Assessment and Plan: Cr has worsened to 13.50. Nephrology has been consulted by ER provider and appreciate recommendations Monitor renal function. Avoid nephrotoxic agents. Hopefully dialysis soon (4) Wound of left foot: Code(s): S91.302A - Unspecified open wound, left foot, initial encounter Status: Acute Assessment and Plan: has been consulted, as well as, Dr. Garcia for further input. Wound does not appear infected at this moment Further rec per Dr. Garcia. Continue routine wound care. Continue IV zosyn. Monitor (5) Leukocytosis: Qualifiers: Leukocytosis type: unspecified Qualified Code(s): D72.829 - Elevated white blood cell count, unspecified Code(s): D72.829 - Elevated white blood cell count, unspecified Status: Acute Assessment and Plan: Secondary to diabetic foot. WBC improved to 16.8k today improved Monitor CBCd (6) Chronic anemia: Code(s): D64.9 - Anemia, unspecified Status: Acute Assessment and Plan: Likely anemia of chronic disease. No signs of acute blood loss. Hgb 8.4 today; lower Monitor H/H tomorrow; if showing signs bleeding, repeat CBC transfuse prn. (7) Hyperkalemia: Code(s): E87.5 - Hyperkalemia Status: Acute Assessment and Plan: K 4.7. Likely secondary to acute renal failure. Monitor serum potassium. (8) Elevated liver enzymes: Code(s): R74.8 - Abnormal levels of other serum enzymes Status: Acute Assessment and Plan: LFTs trending down today Monitor LFTs. (9) Chest pain: Qualifiers: Chest pain type: unspecified Qualified Code(s): R07.9 - Chest pain, unspecified Code(s): R07.9 - Chest pain, unspecified Status: Acute Assessment and Plan: No further chest pain. Troponins stable, mildly elevated. ACS unlikely Monitor for chest pain. Consider Cardiology consultation based on how the patient evolves. (10) Elevated troponin: Code(s): R79.89 - Other specified abnormal findings of blood chemistry Status: Acute Assessment and Plan: Troponin leak likely secondary to acute renal failure. 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
[2020-02-17 11:24] LABS: Hepatitis B Surface Antigen Negative (Negative)
[2020-02-17 11:41] LABS: Hepatitis B Surface Anti Res Negative
[2020-02-17 12:02] LABS: Glucose Point of Care 96 (65-105)
--- NOTE | 2020-02-17 12:24 | PM.IMHP ---
H&P: HPI History of Present Illness Chief complaint: Shortness of breath+ Narrative: Pankaj Bautista is a 54 year old male readmitted MondayFebruary 15 for shortness of breath. I performed a partial 1st resection to the left foot. He is currently healing with the help of a wound vac. No F/C/N/V. [facility] Past Medical History Medical History Aortic valve stenosis Arthritis Chronic kidney disease Diabetic foot ulcer Diabetic foot ulcer Probing to bone Essential (primary) hypertension FHx: prostate cancer Finger fracture GERD (gastroesophageal reflux disease) Head ache Heart murmur Hiatal hernia History of cerebrovascular accident (CVA) in adulthood Hy kid NOS w cr kid I-IV Impingement syndrome of left shoulder Iron deficiency Long-term insulin use Microcytic anemia Mixed hyperlipidemia Neuropathy Peripheral vascular disease (Unknown) Pneumonia Prostate cancer screening 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el release History of tonsillectomy Family History Family History Mother Family history of diabetes mellitus in first degree relative Family history of malignant neoplasm of breast in first degree relative Other Family history of arthritis Family history of coronary artery disease Hypertension Social History Social History Smoking packs per day: 2 Smoking cigarettes per day: 40.0 Years smoked: 25 Smoking pack-years: 50.00 Smoking status: Former smoker Tobacco type: cigarettes Smoking end date: 10/23/07 Alcohol intake: never Substance use: never Substance use type: does not use Gender identity (if verbalized by the patient): Male Spiritual care concerns: No Agree to blood products: Yes Meds Home Medications and Allergies Home Medications Medication Instructions Recorded Confirmed Type amlodipine 10 mg PO DAILY 08/30/19 02/17/20 History gemfibrozil 600 mg PO DAILY 08/30/19 02/17/20 History pantoprazole 40 mg PO HS 08/30/19 02/17/20 History ranitidine HCl 150 mg PO DAILY 08/30/19 02/17/20 History venlafaxine 100 mg PO BID 08/30/19 02/17/20 History fenofibrate micronized 134 mg 134 mg PO DAILY 09/11/19 02/17/20 History capsule gabapentin 300 mg capsule 300 mg PO TID 09/11/19 02/17/20 History pen needle, diabetic 31 gauge x #30 each 09/11/19 02/17/20 Rx 5/16 sildenafil 100 mg tablet 100 mg PO DAILY 09/11/19 02/17/20 History alogliptin 25 mg tablet 12.5 mg PO DAILY 09/16/19 02/17/20 History metoprolol succinate 100 mg 100 mg PO DAILY 11/12/19 02/17/20 History capsule sprinkle, ext. release 24 hr insulin detemir U-100 100 unit/mL 44 unit SUB-Q BID #30 ml 01/01/20 02/17/20 Rx subcutaneous solution insulin syringe-needle U-100 0.5 #200 each 01/01/20 02/17/20 Rx mL 29 gauge x 1/2 metoprolol succinate [Toprol XL] 100 mg PO Q12HR #60 tablet 02/13/20 02/17/20 Rx piperacillin-tazobactam 2.25 g IV Q6HR 33 Days #132 ea 02/13/20 02/17/20 Rx sevelamer carbonate [Renvela] 1,600 mg PO TIDWM #100 tablet 02/13/20 02/17/20 Rx pravastatin 80 mg tablet 80 mg PO DAILY #30 tablet 02/14/20 02/17/20 Rx Allergies Allergy/AdvReac Type Severity Reaction Status Date / Time No Known Allergies Allergy Verified 02/04/20 12:40 Vital Signs Vital Signs - 24 hr 02/16/20 21:20 02/16/20 22:09 02/16/20 22:47 Temperature 36.4 C Pulse Rate 80 79 78 Respiratory Rate 26 H 26 H 25 H Blood Pressure 128/82 149/96 H 140/85 Pulse Oximetry 85 L 87 L 93 02/16/20 23:12 02/17/20 00:00 02/17/20 00:17 Temperature Pulse Rate 73 73 Respiratory Rate 26 H 20 Blood Pressure 131/85 Pulse Oximetry 99 02/17/20 00:45 02/17/20 00:46 04
--- NOTE | 2020-02-17 12:42 | PM.PROC ---
Procedure Note - Detailed Date of procedure: 02/17/20 Pre-op diagnosis: Acute/Chronic Renal Failure Post-op diagnosis: same Procedure performed: Right IJ Lyndon Dialysis Catheter Placement with U/S Guidance Description of procedure: Procedure, risks, benefits, and alternatives were discussed with the patient. Written consent was obtained and placed in chart prior to procedure. Patient was placed supine in hospital bed and placed in slight Trendelenburg position. Time-out was done to confirm patient and procedure. His right neck and chest area was prepped and draped in sterile fashion using chlorhexidine prep. SonoSite ultrasound was used to identify the right internal jugular vein. 1% lidocaine was infiltrated directly over this area. An 18 gauge introducer needle was advanced under ultrasound guidance directly into the right internal jugular vein. Dark nonpulsatile blood was aspirated. A 0.035 in guidewire was then advanced through the needle. The guidewire advanced smoothly. The needle was then withdrawn leaving the guidewire in place. A small madisyn incision was made at the insertion site using an 11 blade scalpel. The blue dilators were then advanced over the guidewire to dilate the vessel. The 12 Upper Sorbian triple lumen 16 cm dialysis catheter was then advanced over the guidewire until it was in place. The guidewire was removed. All 3 lumens were then aspirated and flushed with sterile saline. All 3 lumens function with ease. Caps were placed over the lumens. A stat lock was placed at the insertion site and the catheter was secured in place using 3 0 nylon simple interrupted sutures. A Tegaderm dressing was then applied over top. The patient was then sat up in bed and chest x-ray was ordered to confirm placement. Implants: 12 Upper Sorbian 16 cm triple-lumen dialysis catheter Anesthesia: local ( 1% lidocaine) Surgeon: Raul Arellano DO Estimated blood loss (mL): 5 Complications: No immediate complications Condition: stable Disposition: floor Findings: Ultrasound guidance was used to identify the right internal jugular vein. This was visualized as a compressible vessel just lateral to the pulsatile carotid artery. The vein was accessed with an 18 gauge introducer needle under ultrasound guidance. The guidewire advanced smoothly. X-ray was ordered to confirm placement.
--- NOTE | 2020-02-17 12:50 | PM.CNGS ---
Assessment and Plan Assessment and plan (1) VLAD (acute kidney injury): Code(s): N17.9 - Acute kidney failure, unspecified Status: Acute Assessment and Plan: Patient is in need of urgent dialysis, and may likely require long-term dialysis. He came in with a high white blood count and a chronic infection involving his foot. I do not think it is safe to place a tunneled dialysis catheter at this time due to infection risks. Will place a Gabriel temporary dialysis catheter today to allow for urgent dialysis. If bloodstream infection is ruled out over the next several days, we can remove the Gabriel dialysis catheter and plan for a tunneled dialysis catheter. I discussed this with Dr. Colindres and the patient and they are both in agreement with this plan. (2) End stage renal disease: Code(s): N18.6 - End stage renal disease Status: Acute History of Present Illness Consult details Consult date: 02/17/20 Narrative: This is a 54-year-old man who presented to the hospital yesterday with shortness of breath and altered mental status. He recently was hospitalized for a foot wound and underwent surgery by Podiatry and also was found to have osteomyelitis requiring long-term IV antibiotics. He had a Wright catheter placed by my partner and was sent home on IV antibiotics per ID recommendations. He has chronic renal failure and was noted to have very high BUN and creatinine during his last hospitalization, but appeared to be remaining stable. Since being at home his renal function has worsened and he now presents in acute on chronic renal failure. He is in need of urgent dialysis. [place] [id number] on admission. Blood cultures have obtained but results are not back yet. He is having shortness of breath and is requiring BiPAP but denies fevers. Review of Systems Review of Systems: All systems reviewed & are unremarkable except as noted in HPI and below PMFSH Past Medical History Medical History Aortic valve stenosis Arthritis Chronic kidney disease Diabetic foot ulcer Diabetic foot ulcer Probing to bone Essential (primary) hypertension FHx: prostate cancer Finger fracture GERD (gastroesophageal reflux disease) Head ache Heart murmur Hiatal hernia History of cerebrovascular accident (CVA) in adulthood Hy kid NOS w cr kid I-IV Impingement syndrome of left shoulder Iron deficiency Long-term insulin use Microcytic anemia Mixed hyperlipidemia Neuropathy Peripheral vascular disease (Unknown) Pneumonia Prostate cancer screening 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el release History of tonsillectomy Family History Family History Mother Family history of diabetes mellitus in first degree relative Family history of malignant neoplasm of breast in first degree relative Other Family history of arthritis Family history of coronary artery disease Hypertension Social History Social History Smoking packs per day: 2 Smoking cigarettes per day: 40.0 Years smoked: 25 Smoking pack-years: 50.00 Smoking status: Former smoker Tobacco type: cigarettes Smoking end date: 10/23/07 Alcohol intake: never Substance use: never Substance use type: does not use Gender identity (if verbalized by the patient): Male Spiritual care concerns: No Agree to blood products: Yes Meds Home Medications and Allergies Home Medications Medication Instructions Recorded Confirmed Type amlodipine 10 mg PO DAILY 08/30/19 02/17/20 History gemfibrozil 600 mg PO DAILY 08/30/19 02/17/20 History pantoprazole 40 mg PO
[2020-02-17] MEDS: SEVELAMER CARBONATE 800 MG TABLET 1600 MG PO (13:18)
--- NOTE | 2020-02-17 14:25 | PC.NURSE ---
Patient left floor to attend dialysis
--- NOTE | 2020-02-17 17:20 | PM.CNNEP ---
Assessment and Plan Assessment and plan (1) VLAD (acute kidney injury): Code(s): N17.9 - Acute kidney failure, unspecified Status: Acute Assessment and Plan: suspect multifactorial etiology based on last hospitalization - acute infection (DM wound + osteomyelitis) - volume depletion (pre-renal urine lytes) - concurrent use of valsartan and metformin - relative hypotension renal ultrasound normal now with low UOP associated with pulmonary edema, mild hyperkalemia, and metabolic acidosis proceed with dialysis today consideration of renal biopsy given ongoing deterioration of renal function (2) Chronic kidney disease: Qualifiers: Chronic kidney disease stage: stage 4 (severe) Qualified Code(s): N18.4 - Chronic kidney disease, stage 4 (severe) Code(s): N18.9 - Chronic kidney disease, unspecified Status: Chronic Assessment and Plan: baseline creatinine runs ~ 2.0 - 2.5mg/dl based on outpatient evaluation - this is due to diabetes and hypertension - known to have nephrotic range proteinuria (3) Acute respiratory failure with hypoxia: Code(s): J96.01 - Acute respiratory failure with hypoxia Status: Acute Assessment and Plan: due to fluid overload/pulmonary edema fluid removal with dialysis to assist consider high dose diuretics but suspect dialysis will do a better job of fluid removal (4) Essential (primary) hypertension: Code(s): I10 - Essential (primary) hypertension Status: Acute Assessment and Plan: reasonable control for now follow hemodynamics (5) Wound of left foot: Code(s): S91.302A - Unspecified open wound, left foot, initial encounter Status: Acute Assessment and Plan: remains on antibiotics Podiatry following (6) Other specified anemias: Code(s): D64.89 - Other specified anemias Status: Acute Assessment and Plan: due to VLAD, CKD, and acute illness Epogen with HD follow trend of H/H Long extensive discussion (greater than 20 minutes) with patient regarding his worsening renal dysfunction in association with metabolic acidosis, mild hyperkalemia, and volume overload. He is agreeable to dialysis and will possibly plan for a possible renal biopsy for definitive diagnosis of his renal dysfunction on the assumption that ATN alone is not blame. Other considerations would be just simple progression of his baseline chronic kidney disease, acute interstitial nephritis from antibiotics (although his renal dysfunction started before antibiotic therapy), or some other etiology that we are unaware of. Will continue to follow. History of Present Illness Reason for Consult Consult date: 02/17/20 Reason for consult: acute renal failure (on chronic kidney disease) Chief Complaint Chief complaint: Acute/Chronic Renal Failure History of Present Illness Narrative: The patient is a 54 year old male with a past medical history as outlined below who presented to [facility] ER with complaints of shortness of breath for the past 2 days. It should be noted that the patient was just discharged from [facility] approximately 2 days ago prior to her admission after he was hospitalized for acute kidney injury and treatment of a diabetic foot wound. The wound turned out to be osteomyelitis of his toe that required amputation by Podiatry. His renal function had deteriorated during that last hospitalization but by the time of discharge appeared to have peaked/plateaued with the assumption that his kidney function would improve with supportive therapy as he had no critical electrolyte abnormalities and he continued to make urine. As noted above, he returned to the ER with complaints of shortness of breath. Associated symptoms included some mild chest discomfort and nonproductive cough. Workup and evaluation in the emergency room demonstrated the patient
[2020-02-17] MEDS: EPOETIN ALFA 10,000 UNITS/ML VIAL 10000 UNITS IV PUSH (17:24)
[2020-02-17] MEDS: HEPARIN SODIUM 1,000 UNITS/ML VIAL 1000 UNITS IV PUSH (17:58)
--- NOTE | 2020-02-17 18:12 | ECG_ITS ---
Measurements Intervals [place] Rate: 85 P: 4 MO: 154 QRS: -2 QRSD: 99 T: 23 QT: 386 QTc: 462 Interpretive Statements SINUS RHYTHM EARLY PRECORDIAL R/S TRANSITION BORDERLINE ECG Electronically Signed On 02-17-2020 19:06:38 CDT by Jairo French D.O.
[2020-02-17 18:38] LABS: Glucose Point of Care 112 (65-105)
[2020-02-17 20:41] LABS: Glucose Point of Care 142 (65-105)
[2020-02-17] MEDS: METOPROLOL SUCCINATE EXT REL 100 MG TABCR PO (21:22)
[2020-02-17] MEDS: PANTOPRAZOLE 40 MG TABLET PO (21:22)
[2020-02-17 22:13] LABS: Fractional Inspired Oxygen 40 %; HCO3 ABG 20.1 mEq/l (22.0-26.0); Oxygen Content ABG 12.2 %vol (16.0-22.0); Oxygen Saturation ABG 95.7 % (95.0-100.0); Oxyhemoglobin 92.5 % THb (90.0-100.0); PCO2 ABG 28.9 mmHg (35.0-45.0); PO2 FiO2 Ratio Arterial Blood 1.83 %; Total Hemoglobin 9.3 g/dL (12.0-18.0)
[2020-02-17 22:15] LABS: Device NON-INVASIVE VENT; Modified Allen's Test Pass; Non-Invasive Expiratory Pressure 5 CMH2O; Non-Invasive Inspiratory Pressure 15 CMH2O; Non-Invasive Vent Rate 14 /MIN; Site Drawn LEFT RADIAL
[2020-02-18] VITALS (32 sets, daily range): BP systolic 144–176; BP diastolic 79–105; PULSE 75–96; RESP 17–32; TEMP 36.4–38.7; O2SAT 90–99
[2020-02-18 04:43] LABS: Basophils Percent Auto 0.2 % (0.2-1.2); Eosinophils Absolute Auto 0.2 K/mm3 (0-0.3); Eosinophils Percent Auto 1.4 % (0-4.4); Hematocrit 25.6 % (42.0-52.0); Hemoglobin 8.3 g/dL (14.0-18.0); Immature Granulocyte Absolute 0.19 K/mm3 (0.00-0.031); Immature Granulocyte Percent A 1.5 % (0-0.5); Lymphocytes Absolute Auto 1.08 K/mm3 (0.9-3.2); Lymphocytes Percent Auto 8.7 % (18.3-44.2); Mean Corpuscular HGB Conc 32.4 g/dl (32-36); Mean Corpuscular Hemoglobin 23.7 pg (26-34); Mean Corpuscular Volume 73.1 fl (80-100); Mean Platelet Volume 8.9 fl (7.4-10.4); Monocytes Absolute Auto 0.8 K/mm3 (0.1-0.6); Monocytes Percent Auto 6.4 % (2.6-8.5); Neutrophils Absolute Auto 10.2 K/mm3 (1.3-6.7); Neutrophils Percent Auto 81.8 % (45.5-73.1); Nucleated Red Blood Cells Absolute Auto 0.1 K/mm3 (0.0-0.012); Nucleated Red Blood Cells Perc 0.8 % (0.0-0.2); Platelet Count Result 312 k/mm3 (150-375); Red Cell Distribution Width 15.9 % (11.5-14.5); White Blood Count 12.5 K/mm3 (4.5-10.0)
[2020-02-18 05:04] LABS: Alanine Aminotransferase 179 U/L (4-50); Alkaline Phosphatase 83 U/L (38-126); Aspartate Amino Transferase 382 U/L (17-59); Bilirubin,Total 0.8 mg/dL (0.2-1.3); Blood Urea Nitrogen 67 mg/dL (9-20); Calcium 7.9 mg/dL (8.4-10.2); Carbon Dioxide 21 mmol/L (22-30); Chloride 97 mmol/L (98-107); Estimated CRCL calculation 10 ml/min; Estimated Glomerular Filt Rate 6; Glucose 112 mg/dL (75-110); Magnesium 2.2 mg/dL (1.6-2.3); Phosphorus 7.4 mg/dL (2.5-4.5); Potassium 3.5 mmol/L (3.4-5.0); Sodium 134 mmol/L (137-145)
[2020-02-18] MEDS: SEVELAMER CARBONATE 800 MG TABLET 1600 MG PO ×2 (08:42→18:20)
[2020-02-18 08:44] LABS: Glucose Point of Care 119 (65-105)
--- NOTE | 2020-02-18 10:05 | PCDIET ---
Patient to dialysis via bed.
--- NOTE | 2020-02-18 11:40 | PM.PNNEP ---
Progress Note: A&P Assessment and Plan (1) VLAD (acute kidney injury): Code(s): N17.9 - Acute kidney failure, unspecified Status: Acute Assessment and Plan: suspect multifactorial etiology based on last hospitalization - acute infection (DM wound + osteomyelitis) - volume depletion (pre-renal urine lytes) - concurrent use of valsartan and metformin - relative hypotension renal ultrasound normal now with low UOP associated with pulmonary edema, mild hyperkalemia, and metabolic acidosis HD yesterday and HD today -- follow electrolytes, volume status, and clearance consideration for renal biopsy given ongoing deterioration of renal function but fever concerning - furthermore, will his respiratory status allow for kidney biopsy to be done(?) (2) Chronic kidney disease: Qualifiers: Chronic kidney disease stage: stage 4 (severe) Qualified Code(s): N18.4 - Chronic kidney disease, stage 4 (severe) Code(s): N18.9 - Chronic kidney disease, unspecified Status: Chronic Assessment and Plan: baseline creatinine runs ~ 2.0 - 2.5mg/dl based on outpatient evaluation - this is due to diabetes and hypertension - known to have nephrotic range proteinuria (3) Acute respiratory failure with hypoxia: Code(s): J96.01 - Acute respiratory failure with hypoxia Status: Acute Assessment and Plan: due to fluid overload/pulmonary edema fluid removal with dialysis to assist consider high dose diuretics but suspect dialysis will do a better job of fluid removal (4) Essential (primary) hypertension: Code(s): I10 - Essential (primary) hypertension Status: Acute Assessment and Plan: reasonable control for now follow hemodynamics (5) Wound of left foot: Code(s): S91.302A - Unspecified open wound, left foot, initial encounter Status: Acute Assessment and Plan: remains on antibiotics Podiatry following (6) Other specified anemias: Code(s): D64.89 - Other specified anemias Status: Acute Assessment and Plan: due to VLAD, CKD, and acute illness Epogen with HD follow trend of H/H Will continue to follow. Subjective Date/time seen: 02/18/20 11:40 Tolerating dialysis at the time of my visit but febrile and states he does not feel well -- required BiPAP overnight but seems to be breathing okay currently; no other apparent distress voiced.s Exam Narrative: Exam Narrative: General: WD/WN male in NAD Heart: normal S1 and S2; no rub Lungs: clear to auscultation Abdomen: soft, nontender, nondistended, positive bowel sounds Extremities: no cyanosis or clubbing; no edema Skin: warm and intact Objective Data Vital Signs Vital Signs: Vital Signs Temp Pulse Resp BP Pulse Ox 02/18/20 10:40 38.7 C H 02/18/20 10:00 86 02/18/20 08:07 93 17 90 02/18/20 08:00 37.1 C 87 26 H 144/79 H 91 02/18/20 06:00 84 02/18/20 04:00 36.4 C 86 24 H 144/83 H 94 02/18/20 02:06 87 24 H 93 02/18/20 02:00 87 02/17/20 23:47 36.5 C 91 22 H 138/84 95 02/17/20 22:27 89 21 H 96 02/17/20 21:55 88 02/17/20 20:00 90 02/17/20 19:53 89 23 H 100 02/17/20 19:25 36.6 C 86 22 H 152/94 H 100 02/17/20 18:28 84 22 H 96 02/17/20 18:15 36.6 C 86 26 H 140/80 89 L 02/17/20 17:51 36.3 C L 83 24 H 136/84 90 02/17/20 17:46 80 136/84 02/17/20 17:45 81 133/84 02/17/20 17:30 82 130/79 02/17/20 17:15 81 120/73 02/17/20 17:00 80 119/74 02/17/20 16:45 78 122/73 02/17/20 16:30 76 130/78 02/17/20 16:15 75 122/56 L 02/17/20 16:00 74 132/61 02/17/20 15:45 75 113/76 02/17/20 15:30 74 127/77 02/17/20 15:15 75 131/83 02/17/20 15:00 75 145/85 H 02/17/20 14:46 78 127/61 02/17/20 14:35 36.3 C L 76 22 H 139/71 02/17/20 14:00 75
[2020-02-18] MEDS: EPOETIN ALFA 10,000 UNITS/ML VIAL 10000 UNITS IV PUSH (12:09)
--- NOTE | 2020-02-18 14:50 | PC.NURSE ---
Patient returned to room following dialysis.
--- NOTE | 2020-02-18 14:51 | PM.IMPN ---
Progress Note: A&P Assessment and Plan (1) Fever: Code(s): R50.9 - Fever, unspecified Status: Acute Assessment and Plan: Could be from atelectasis, vs recent left toe amputation vs pneumonia vs UTI Ordered repeat CXR, UA with reflux culture, pending blood culture results, and monitoring for more fevers. The patient spiked a fever while in dialysis and is also feeling very weak and fatigued. There are concerns for COVID due to his fever, shortness of breath, cough, and since he was recently admitted into the hospital he is high risk. Will order Repeat CXR and if still showing pulmonary edema despite IV Lasix and Dialysis will order COVID testing, if CXR is improving then will hold off on testing and continue with dialysis and Lasix. Will continue monitoring and PRN Tylenol. (2) Acute respiratory failure with hypoxia: Code(s): J96.01 - Acute respiratory failure with hypoxia Status: Acute Assessment and Plan: Patient presented with shortness of breath and was found to be hypoxic. Most likely secondary to acute renal failure and fluid overload. His CXR showed pulmonary edema and he was started on IV Lasix 80 mg Currently patient is still on a BiPAP since last night due to his shortness of breath. He just came back to the floor and the nurse is going to try weaning him off BiPAP. Monitor closely. (3) Volume overload: Qualifiers: Hypervolemia type: other Qualified Code(s): E87.79 - Other fluid overload Code(s): E87.70 - Fluid overload, unspecified Status: Acute Assessment and Plan: Secondary to ongoing renal failure. Appears to be improving since IV Lasix but the patient is still on a BiPAP. He has slight crackles on exam. Patient had dialysis catheter placement 02/17/2020 and had dialysis yesterday and today. Patient's fluid balance: Urine output is 650 cc today and at dialysis there was a total of 6205 cc removed in 24 hours Monitor respiratory status. (4) VLAD (acute kidney injury): Code(s): N17.9 - Acute kidney failure, unspecified Status: Acute Assessment and Plan: Cr has worsened to 13.50 on arrival. Nephrology was consulted and a dialysis catheter was placed by surgery. Patient started on dialysis 02/17/2020 Creatinine this morning was 9.5 and BUN was 67. Continue monitoring renal function. Nephrology input is greatly appreciated. Avoid nephrotoxic agents. (5) Wound of left foot: Code(s): S91.302A - Unspecified open wound, left foot, initial encounter Status: Acute Assessment and Plan: Wound care has been consulted, as well as, Dr. Garcia for further input. Dr. Garcia evaluated the patient yesterday and does not feel that his foot is infected at this time. He will continue monitoring as an outpatient and recommends IV antibiotics and wound VAC to remain in place. Monitor (6) Leukocytosis: Qualifiers: Leukocytosis type: unspecified Qualified Code(s): D72.829 - Elevated white blood cell count, unspecified Code(s): D72.829 - Elevated white blood cell count, unspecified Status: Acute Assessment and Plan: Secondary to diabetic foot versus UTI versus pneumonia. WBC improved to 12.5k today Monitor CBCd (7) Chronic anemia: Code(s): D64.9 - Anemia, unspecified Status: Acute Assessment and Plan: Likely anemia of chronic kidney disease. Hgb 8.4 today Monitor H/H tomorrow. No signs of acute blood loss. Transfuse prn. (8) Hyperkalemia: Code(s): E87.5 - Hyperkalemia Status: Acute Assessment and Plan: K 3.5. Likely secondary to acute renal failure. Monitor serum po
[2020-02-18 15:04] LABS: Glucose Point of Care 91 (65-105)
[2020-02-18] MEDS: FUROSEMIDE INJ 100 MG/10 ML VIAL 80 MG IV PUSH (15:04)
[2020-02-18] MEDS: FAMOTIDINE 20 MG TABLET PO (15:04)
[2020-02-18] MEDS: SODIUM BICARBONATE TAB 650 MG TABLET 1300 MG PO (15:05)
[2020-02-18] MEDS: AMLODIPINE BESYLATE 5 MG TABLET 10 MG PO (15:05)
[2020-02-18] MEDS: PRAVASTATIN SODIUM 20 MG TABLET 80 MG PO (15:05)
[2020-02-18] MEDS: FENOFIBRATE NANOCRYSTALLIZED 145 MG TABLET PO (15:05)
[2020-02-18] MEDS: VENLAFAXINE HCL 25 MG TABLET 100 MG PO (15:05)
[2020-02-18] MEDS: METOPROLOL SUCCINATE EXT REL 100 MG TABCR PO ×2 (15:06→20:56)
[2020-02-18 17:18] LABS: Add Urine Microscopic? YES; Appearance Urine Clear (Clear); Bacteria Urine Trace /hpf; Bilirubin Urine Negative (Negative); Blood Urine 1+ (Negative); Color Urine Straw (Yellow); Glucose Urine UA 1+ mg/dL (Negative); Ketones Urine Trace mg/dL (Negative); Leukocyte Esterase Ur Trace LEU/UL (Negative); Mucus Urine Rare /lpf; Nitrate Urine Negative (Negative); Protein Urine 3+ mg/dL (Negative); RBC Urine 21-50 /hpf (0-2); Specific Grav Ur 1.009 (1.001-1.035); Urobilinogen Urine Negative mg/dL (<2.0)
--- NOTE | 2020-02-18 19:10 | PC.NURSE ---
Patient transferred to ICU 6 via bed at 1910 on 02/18/2020 as IMU overflow for COVID-19 testing and rule out. Report given to Dixie BA. Updates called to , Sally and mother, Martha.
[2020-02-18] MEDS: PANTOPRAZOLE 40 MG TABLET PO (20:56)
[2020-02-18 21:41] LABS: Glucose Point of Care 141 (65-105)
[2020-02-19] VITALS (15 sets, daily range): BP systolic 129–159; BP diastolic 88–107; PULSE 74–87; RESP 14–20; TEMP 36.1–37.1; O2SAT 94–99
[2020-02-19 04:39] LABS: Basophils Percent Auto 0.4 % (0.2-1.2); Eosinophils Absolute Auto 0.2 K/mm3 (0-0.3); Eosinophils Percent Auto 1.8 % (0-4.4); Hematocrit 29.3 % (42.0-52.0); Hemoglobin 8.9 g/dL (14.0-18.0); Immature Granulocyte Percent A 2.6 % (0-0.5); Lymphocytes Absolute Auto 1.25 K/mm3 (0.9-3.2); Mean Corpuscular HGB Conc 30.4 g/dl (32-36); Mean Corpuscular Volume 75.7 fl (80-100); Mean Platelet Volume 9.4 fl (7.4-10.4); Monocytes Absolute Auto 1.1 K/mm3 (0.1-0.6); Monocytes Percent Auto 9.4 % (2.6-8.5); Neutrophils Absolute Auto 8.5 K/mm3 (1.3-6.7); Neutrophils Percent Auto 74.8 % (45.5-73.1); Nucleated Red Blood Cells Absolute Auto 0.1 K/mm3 (0.0-0.012); Nucleated Red Blood Cells Perc 0.5 % (0.0-0.2); Platelet Count Result 344 k/mm3 (150-375); Red Blood Count 3.87 M/mm3 (4.6-6.20); White Blood Count 11.4 K/mm3 (4.5-10.0)
[2020-02-19 05:01] LABS: Alanine Aminotransferase 194 U/L (4-50); Albumin Level 3.3 g/dL (3.5-5.1); Alkaline Phosphatase 93 U/L (38-126); Aspartate Amino Transferase 322 U/L (17-59); Bilirubin,Total 0.9 mg/dL (0.2-1.3); Blood Urea Nitrogen 43 mg/dL (9-20); Calcium 8.4 mg/dL (8.4-10.2); Carbon Dioxide 27 mmol/L (22-30); Chloride 98 mmol/L (98-107); Estimated CRCL calculation 13 ml/min; Estimated Glomerular Filt Rate 9; Glucose 116 mg/dL (75-110); Lactate Dehydrogenase 1282 U/L (313-618); Potassium 3.4 mmol/L (3.4-5.0); Sodium 137 mmol/L (137-145)
[2020-02-19 05:11] LABS: CRP 26.4 mg/dL (<1.0)
[2020-02-19 05:17] LABS: D Dimer 7.05 ug/mL (<0.48)
[2020-02-19] MEDS: SEVELAMER CARBONATE 800 MG TABLET 1600 MG PO ×3 (09:57→17:11)
[2020-02-19] MEDS: AMLODIPINE BESYLATE 5 MG TABLET 10 MG PO (09:58)
[2020-02-19] MEDS: FAMOTIDINE 20 MG TABLET PO (09:59)
[2020-02-19] MEDS: FUROSEMIDE INJ 100 MG/10 ML VIAL 80 MG IV PUSH ×2 (09:59→17:11)
[2020-02-19] MEDS: FENOFIBRATE NANOCRYSTALLIZED 145 MG TABLET PO (10:00)
[2020-02-19] MEDS: PRAVASTATIN SODIUM 20 MG TABLET 80 MG PO (10:00)
[2020-02-19] MEDS: METOPROLOL SUCCINATE EXT REL 100 MG TABCR PO ×2 (10:00→20:31)
[2020-02-19] MEDS: VENLAFAXINE HCL 25 MG TABLET 100 MG PO ×2 (10:01→17:11)
[2020-02-19] MEDS: SODIUM BICARBONATE TAB 650 MG TABLET 1300 MG PO ×2 (10:01→17:11)
[2020-02-19 12:35] LABS: Glucose Point of Care 112 (65-105)
[2020-02-19 12:49] LABS: Glucose Point of Care 160 (65-105)
[2020-02-19 17:31] LABS: Glucose Point of Care 129 (65-105)
--- NOTE | 2020-02-19 17:58 | P.PNIM_ITS ---
Progress Note: A&P Assessment and Plan (1) Fever: Code(s): R50.9 - Fever, unspecified Status: Acute Assessment and Plan: * Could be from atelectasis, vs recent left toe amputation vs pneumonia vs UTI * CXR concerning for pulm edema; can not exclude COVID since no improvement with dialysis * COVID pending. No further fevers. (2) Acute respiratory failure with hypoxia: Code(s): J96.01 - Acute respiratory failure with hypoxia Status: Acute Assessment and Plan: * Patient presented with shortness of breath and was found to be hypoxic. * CXR showed pulmonary edema and he was started on IV Lasix 80 mg; HD started * Hypoxia felt related to acute renal failure and fluid overload. * Minimal benefit with the HD. (3) Volume overload: Qualifiers: Hypervolemia type: other Qualified Code(s): E87.79 - Other fluid overload Code(s): E87.70 - Fluid overload, unspecified Status: Acute Assessment and Plan: * Secondary to ongoing renal failure. * Patient had dialysis catheter placement 02/17/2020 and had dialysis 02/16, 02/17. * Negative fluid balance of -5.18L yesterday * Wean O2 as toelrated (4) VLAD (acute kidney injury): Code(s): N17.9 - Acute kidney failure, unspecified Status: Acute Assessment and Plan: * Cr was 2.4 in November. Cr 4.4 on 02/04/20 but worsened to 11.6 on 02/13/20. * Cr has worsened to 13.50 on arrival * Nephrology was consulted and a dialysis catheter was placed by surgery. * Patient started on dialysis 02/17/2020 with repeat HD on 02/17 * Continue hemodialysis per Nephrology instructions; appreciate Nephrology input. (5) Wound of left foot: Code(s): S91.302A - Unspecified open wound, left foot, initial encounter Status: Acute Assessment and Plan: * Patient with a history of osteomyelitis status post left great toe amputation. * Was discharged home on 02/13/2020 on long-term IV antibiotics from Zosyn. Continue Zosyn now * Wound care has been consulted * Dr. Garcia did evaluate the patient and felt that his foot is not infected at this time. * He will continue monitoring as an outpatient and recommends IV antibiotics and wound VAC to remain in place. * Continue to same (6) Leukocytosis: Qualifiers: Leukocytosis type: unspecified Qualified Code(s): D72.829 - Elevated white blood cell count, unspecified Code(s): D72.829 - Elevated white blood cell count, unspecified Status: Acute Assessment and Plan: * Secondary to diabetic foot versus UTI versus pneumonia. * BCx NGTD. UCx pending * WBC down to 11K (7) Chronic anemia: Code(s): D64.9 - Anemia, unspecified Status: Acute Assessment and Plan: * Likely anemia of chronic kidney disease. * Hgb 8.9 today * Monitor H/H (8) Elevated liver enzymes: Code(s): R74.8 - Abnormal levels of other serum enzymes Status: Acute Assessment and Plan: * LFTs trending down today but still elevated * HepBs Ag and Ab negative * Probably related to hepatic congestion * Continue to monitor (9) Chest pain: Qualifiers: Chest pain type: unspecified Qualified Code(s): R07.9 - Chest pain, unspecified Code(s): R07.9 - Chest pain, unspecified Status: Acute Assessment and Plan: * No further chest pain. * Troponins mildly elevated but flat at 0.066: felt related to renal failure * No acute EKG changes (10
--- NOTE | 2020-02-19 17:58 | PM.IMPN ---
Progress Note: A&P Assessment and Plan (1) Fever: Code(s): R50.9 - Fever, unspecified Status: Acute Assessment and Plan: Could be from atelectasis, vs recent left toe amputation vs pneumonia vs UTI CXR concerning for pulm edema; can not exclude COVID since no improvement with dialysis COVID pending. No further fevers. (2) Acute respiratory failure with hypoxia: Code(s): J96.01 - Acute respiratory failure with hypoxia Status: Acute Assessment and Plan: Patient presented with shortness of breath and was found to be hypoxic. CXR showed pulmonary edema and he was started on IV Lasix 80 mg; HD started Hypoxia felt related to acute renal failure and fluid overload. Minimal benefit with the HD. (3) Volume overload: Qualifiers: Hypervolemia type: other Qualified Code(s): E87.79 - Other fluid overload Code(s): E87.70 - Fluid overload, unspecified Status: Acute Assessment and Plan: Secondary to ongoing renal failure. Patient had dialysis catheter placement 02/17/2020 and had dialysis 02/16, 02/17. Negative fluid balance of -5.18L yesterday Wean O2 as toelrated (4) VLAD (acute kidney injury): Code(s): N17.9 - Acute kidney failure, unspecified Status: Acute Assessment and Plan: Cr was 2.4 in November. Cr 4.4 on 02/04/20 but worsened to 11.6 on 02/13/20. Cr has worsened to 13.50 on arrival Nephrology was consulted and a dialysis catheter was placed by surgery. Patient started on dialysis 02/17/2020 with repeat HD on 02/17 Continue hemodialysis per Nephrology instructions; appreciate Nephrology input. (5) Wound of left foot: Code(s): S91.302A - Unspecified open wound, left foot, initial encounter Status: Acute Assessment and Plan: Patient with a history of osteomyelitis status post left great toe amputation. Was discharged home on 02/13/2020 on long-term IV antibiotics from Zosyn. Continue Zosyn now Wound care has been consulted Dr. Garcia did evaluate the patient and felt that his foot is not infected at this time. He will continue monitoring as an outpatient and recommends IV antibiotics and wound VAC to remain in place. Continue to same (6) Leukocytosis: Qualifiers: Leukocytosis type: unspecified Qualified Code(s): D72.829 - Elevated white blood cell count, unspecified Code(s): D72.829 - Elevated white blood cell count, unspecified Status: Acute Assessment and Plan: Secondary to diabetic foot versus UTI versus pneumonia. BCx NGTD. UCx pending WBC down to 11K (7) Chronic anemia: Code(s): D64.9 - Anemia, unspecified Status: Acute Assessment and Plan: Likely anemia of chronic kidney disease. Hgb 8.9 today Monitor H/H (8) Elevated liver enzymes: Code(s): R74.8 - Abnormal levels of other serum enzymes Status: Acute Assessment and Plan: LFTs trending down today but still elevated HepBs Ag and Ab negative Probably related to hepatic congestion Continue to monitor (9) Chest pain: Qualifiers: Chest pain type: unspecified Qualified Code(s): R07.9 - Chest pain, unspecified Code(s): R07.9 - Chest pain, unspecified Status: Acute Assessment and Plan: No further chest pain. Troponins mildly elevated but flat at 0.066: felt related to renal failure No acute EKG changes (10) Elevated troponin: Code(s): R79.89 - Other specified abnormal findings of blood chemistry Status: Acute Assessment and Plan: Troponin leak likely secondary to acute renal failure. As above (11) Diabetes mellitus: Qualifiers: Diabetes mellitus complication status: without complication Diabetes mellitus jail insulin use: with jail use Diabetes mellitus type: type 2 Qualified Code(s): E11.9 - Type 2 diabetes mellitus without complic
--- NOTE | 2020-02-19 18:16 | PM.PNNEP ---
Progress Note: A&P Assessment and Plan (1) VALD (acute kidney injury): Code(s): N17.9 - Acute kidney failure, unspecified Status: Acute Assessment and Plan: suspect multifactorial etiology based on last hospitalization - acute infection (DM wound + osteomyelitis) - volume depletion (pre-renal urine lytes) - concurrent use of valsartan and metformin - relative hypotension renal ultrasound normal given issues with pulmonary edema, mild hyperkalemia, and metabolic acidosis; had HD yesterday and day before follow electrolytes, volume status, and clearance - possible HD tomorrow consideration for renal biopsy given ongoing deterioration of renal function noted on admission - however, will need to ensure respiratory status good enought to allow for kidney biopsy to be done - suppose COVID-19 will need to be ruled out as well (2) Chronic kidney disease: Qualifiers: Chronic kidney disease stage: stage 4 (severe) Qualified Code(s): N18.4 - Chronic kidney disease, stage 4 (severe) Code(s): N18.9 - Chronic kidney disease, unspecified Status: Chronic Assessment and Plan: baseline creatinine runs ~ 2.0 - 2.5mg/dl based on outpatient evaluation - this is due to diabetes and hypertension - known to have nephrotic range proteinuria (3) Acute respiratory failure with hypoxia: Code(s): J96.01 - Acute respiratory failure with hypoxia Status: Acute Assessment and Plan: due to fluid overload/pulmonary edema fluid removal with dialysis as tolerated consider high dose diuretics but suspect dialysis will do a better job of fluid removal (4) Essential (primary) hypertension: Code(s): I10 - Essential (primary) hypertension Status: Acute Assessment and Plan: reasonable control for now follow hemodynamics (5) Wound of left foot: Code(s): S91.302A - Unspecified open wound, left foot, initial encounter Status: Acute Assessment and Plan: remains on antibiotics Podiatry following (6) Other specified anemias: Code(s): D64.89 - Other specified anemias Status: Acute Assessment and Plan: due to VLAD, CKD, and acute illness Epogen with HD follow trend of H/H Will continue to follow. Subjective Date/time seen: 02/19/20 18:16 Tolerated dialysis yesterday but developed fever and increasing oxygen requirement (failed to improve with BIPAP therapy); moved to isolation/ICU due to possible concerns of COVID-19; oxygenation a bit better today. Exam Narrative: Exam Narrative: General: WD/WN male in NAD Heart: normal S1 and S2; no rub Lungs: coarse with decreased breath sounds at bases Abdomen: soft, nontender, nondistended, positive bowel sounds Extremities: no cyanosis or clubbing; trace edema Skin: no rash or nodules Objective Data Vital Signs Vital Signs: Vital Signs Temp Pulse Resp BP Pulse Ox 02/19/20 16:00 36.1 C L 74 16 146/88 H 98 02/19/20 14:00 77 02/19/20 12:01 36.5 C 78 17 129/90 99 02/19/20 12:00 78 02/19/20 10:00 84 02/19/20 08:00 36.6 C 81 14 159/94 H 98 02/19/20 06:00 81 02/19/20 04:00 36.8 C 86 20 153/92 H 94 02/19/20 02:00 87 20 94 02/19/20 00:00 37.1 C 84 20 143/107 H 95 02/18/20 22:00 94 02/18/20 20:56 94 02/18/20 20:00 37.1 C 94 20 144/105 H 93 Intake/Output Intake/Output: Intake & Output 02/16/20 02/17/20 02/18/20 02/19/20 23:59 23:59 23:59 23:59 Intake Total 846 469 4095 Output Total 2500 5380 1750 Balance -2118 -8723 -846 Meds/Results Medications: Active Medications Generic Name Dose Route Start Last Admin Trade Name Yuliet PRN Reason Stop Dose Admin Amlodipine Besylate 10 mg 02/17/20 09:00 02/19/20 09:58 Norvasc PO 10 mg DAILY ALEX Administration Dextrose 12.5 gm 02/17/20 08:06 Dextrose 50% Syringe IV PUSH
[2020-02-19] MEDS: PANTOPRAZOLE 40 MG TABLET PO (20:31)
[2020-02-19 20:48] LABS: Glucose Point of Care 192 (65-105)
[2020-02-19] MEDS: INSULIN DETEMIR 100 UNITS/ML 40 UNITS SUB-Q (20:49)
[2020-02-20] VITALS (26 sets, daily range): BP systolic 86–156; BP diastolic 48–100; PULSE 71–90; RESP 13–20; TEMP 36–37; O2SAT 95–100
[2020-02-20 05:19] LABS: Basophils Percent Auto 0.4 % (0.2-1.2); Eosinophils Absolute Auto 0.2 K/mm3 (0-0.3); Hematocrit 29.3 % (42.0-52.0); Hemoglobin 9.2 g/dL (14.0-18.0); Immature Granulocyte Percent A 1.3 % (0-0.5); Lymphocytes Absolute Auto 1.11 K/mm3 (0.9-3.2); Mean Corpuscular HGB Conc 31.4 g/dl (32-36); Mean Corpuscular Hemoglobin 23.9 pg (26-34); Mean Corpuscular Volume 76.1 fl (80-100); Mean Platelet Volume 8.7 fl (7.4-10.4); Monocytes Absolute Auto 0.9 K/mm3 (0.1-0.6); Monocytes Percent Auto 11.9 % (2.6-8.5); Neutrophils Absolute Auto 5.1 K/mm3 (1.3-6.7); Neutrophils Percent Auto 68.4 % (45.5-73.1); Platelet Count Result 287 k/mm3 (150-375); Red Blood Count 3.85 M/mm3 (4.6-6.20); Red Cell Distribution Width 15.8 % (11.5-14.5); White Blood Count 7.4 K/mm3 (4.5-10.0)
[2020-02-20 05:42] LABS: Alanine Aminotransferase 128 U/L (4-50); Albumin Level 3.3 g/dL (3.5-5.1); Alkaline Phosphatase 123 U/L (38-126); Aspartate Amino Transferase 105 U/L (17-59); Bilirubin,Total 0.6 mg/dL (0.2-1.3); Blood Urea Nitrogen 65 mg/dL (9-20); Calcium 8.6 mg/dL (8.4-10.2); Carbon Dioxide 28 mmol/L (22-30); Chloride 95 mmol/L (98-107); Estimated CRCL calculation 10 ml/min; Estimated Glomerular Filt Rate 6; Glucose 144 mg/dL (75-110); Magnesium 2.6 mg/dL (1.6-2.3); Potassium 3.2 mmol/L (3.4-5.0); Sodium 138 mmol/L (137-145)
[2020-02-20] MEDS: AMLODIPINE BESYLATE 5 MG TABLET 10 MG PO (07:57)
[2020-02-20] MEDS: FAMOTIDINE 20 MG TABLET PO (07:57)
[2020-02-20] MEDS: SEVELAMER CARBONATE 800 MG TABLET 1600 MG PO ×3 (07:58→16:53)
[2020-02-20] MEDS: METOPROLOL SUCCINATE EXT REL 100 MG TABCR PO ×2 (07:59→21:39)
[2020-02-20] MEDS: SODIUM BICARBONATE TAB 650 MG TABLET 1300 MG PO ×2 (07:59→16:54)
[2020-02-20] MEDS: VENLAFAXINE HCL 25 MG TABLET 100 MG PO ×2 (07:59→16:55)
[2020-02-20] MEDS: FUROSEMIDE INJ 100 MG/10 ML VIAL 80 MG IV PUSH ×2 (08:06→17:38)
[2020-02-20 08:23] LABS: Glucose Point of Care 107 (65-105)
[2020-02-20 12:16] LABS: Glucose Point of Care 129 (65-105)
--- NOTE | 2020-02-20 14:33 | PCDIET ---
Nutrition Follow-Up Complete: Nutrition Diagnosis: Increased nutrition R/T wound vac on left foot as evidenced by daily kcals needs of 2500 and limited protein needs of 59-79g/day due to GFR 4 Nutrition Goal: Oral intake of 50% or greater of meals and supplements to aid in healing of left foot wound Goal in progress. Patient consumed average of 0%, 57%, and 50% of meals on 02/17, 02/18 and 02/19, respectively. Spoke with patient via phone due to COVID-19 precautions. Patient feels appetite is getting better. Does not recall receiving nutritional supplements, but is willing to try. Recommend change from Wayne to Nepro (425kcal, 19g protein) to reduce vitamin C and further increase calorie/protein content. Also recommend increasing Renvela to 2400mg with food due to significantly elevated PO4 level on 1600mg. Last recorded weight is 93.6 kg which is decreased from last review. -I/O with greater than 6L UF since admission. Bowel Motility: +BM today. Labs Reviewed: Glu (144), BUN (65), Cr (9.2), K (3.2), PO4 (11.0), Alb (3.3) Meds Noted: Albumin, Pepcid, Lasix, Novolog, Levemir, Protonix, Zosyn, Renvela, Sodium Bicarbonate, Epogen Additional Notes: Left foot with ulcer; wound vac has been discontinued. Will continue to monitor with same goals. Nutrient needs adjusted for dialysis: 2300-2700kcal (30-35kcal/kg adj bw) 92-115 grams protein (1.2-1.5g/kg adj bw) 2L fluid (1L + ~1L urine output) Nutrition Monitoring and Evaluation: Follow up every 5 days.
--- NOTE | 2020-02-20 14:55 | P.PNIM_ITS ---
Progress Note: A&P Assessment and Plan (1) Fever: Code(s): R50.9 - Fever, unspecified Status: Acute Assessment and Plan: * Could be from atelectasis, vs recent left toe amputation vs pneumonia * CXR concerning for pulm edema; can not exclude COVID since no improvement with dialysis * COVID still pending. No further fevers. (2) Acute respiratory failure with hypoxia: Code(s): J96.01 - Acute respiratory failure with hypoxia Status: Acute Assessment and Plan: * Patient presented with shortness of breath and was found to be hypoxic. * CXR showed pulmonary edema and he was started on IV Lasix 80 mg; HD started * Hypoxia felt related to acute renal failure and fluid overload but can not exclude COVID * Minimal benefit with the HD. Still requiring 5L HFNC. Wean O2 as toerlated. (3) Volume overload: Qualifiers: Hypervolemia type: other Qualified Code(s): E87.79 - Other fluid overload Code(s): E87.70 - Fluid overload, unspecified Status: Acute Assessment and Plan: * Secondary to ongoing renal failure. * Patient had dialysis catheter placement 02/17/2020 and had dialysis 02/16, 02/17. * Negative fluid balance of daily with -520ml yesterday * Wean O2 as tolerated (4) VLAD (acute kidney injury): Code(s): N17.9 - Acute kidney failure, unspecified Status: Acute Assessment and Plan: * Cr was 2.4 in November. Cr 4.4 on 02/04/20 but worsened to 11.6 on 02/13/20. * Cr has worsened to 13.50 on arrival * Nephrology was consulted and a dialysis catheter was placed by surgery 02/16. * Patient started on dialysis 02/17/2020 with repeat HD on 02/17 * He remains on Lasix IV. Phos 11. * Continue hemodialysis per Nephrology instructions; appreciate Nephrology input. * Nephrology was okay to remove [place] but continue strict I/Os (5) Wound of left foot: Code(s): S91.302A - Unspecified open wound, left foot, initial encounter Status: Acute Assessment and Plan: * Patient with a history of osteomyelitis status post left great toe amputation. * Was discharged home on 02/13/2020 on long-term IV antibiotics from Zosyn. Continue Zosyn for now * Wound care has been consulted * Dr. Garcia did evaluate the patient and felt that his foot is not infected at this time; He will continue monitoring as an outpatient and recommends IV antibiotics and wound VAC to remain in place. * Continue to same (6) Leukocytosis: Qualifiers: Leukocytosis type: unspecified Qualified Code(s): D72.829 - Elevated white blood cell count, unspecified Code(s): D72.829 - Elevated white blood cell count, unspecified Status: Acute Assessment and Plan: Secondary to diabetic foot versus UTI versus pneumonia. BCx NGTD. UCx negative. WBC normal now. (7) Chronic anemia: Code(s): D64.9 - Anemia, unspecified Status: Acute Assessment and Plan: Hemoglobin 9-10 range last admission. Currently hemoglobin running 8 9 range here. Hemoglobin today is 9.2. Likely anemia of chronic kidney disease. Co ntinue to monitor. Epogen has been started. (8) Elevated liver enzymes: Code(s): R74.8 - Abnormal levels of other serum enzymes Status: Acute Assessment and Plan: LFTs continue to trend down. HepBs Ag and Ab negative. Probably related to hepatic congestion and should improve with improved fluid status. Continue to monitor (9) Chest pain: Qualifiers: Chest pain type: unsp
--- NOTE | 2020-02-20 14:55 | PM.IMPN ---
Progress Note: A&P Assessment and Plan (1) Fever: Code(s): R50.9 - Fever, unspecified Status: Acute Assessment and Plan: Could be from atelectasis, vs recent left toe amputation vs pneumonia CXR concerning for pulm edema; can not exclude COVID since no improvement with dialysis COVID still pending. No further fevers. (2) Acute respiratory failure with hypoxia: Code(s): J96.01 - Acute respiratory failure with hypoxia Status: Acute Assessment and Plan: Patient presented with shortness of breath and was found to be hypoxic. CXR showed pulmonary edema and he was started on IV Lasix 80 mg; HD started Hypoxia felt related to acute renal failure and fluid overload but can not exclude COVID Minimal benefit with the HD. Still requiring 5L HFNC. Wean O2 as toerlated. (3) Volume overload: Qualifiers: Hypervolemia type: other Qualified Code(s): E87.79 - Other fluid overload Code(s): E87.70 - Fluid overload, unspecified Status: Acute Assessment and Plan: Secondary to ongoing renal failure. Patient had dialysis catheter placement 02/17/2020 and had dialysis 02/16, 02/17. Negative fluid balance of daily with -520ml yesterday Wean O2 as tolerated (4) VLAD (acute kidney injury): Code(s): N17.9 - Acute kidney failure, unspecified Status: Acute Assessment and Plan: Cr was 2.4 in November. Cr 4.4 on 02/04/20 but worsened to 11.6 on 02/13/20. Cr has worsened to 13.50 on arrival Nephrology was consulted and a dialysis catheter was placed by surgery 02/16. Patient started on dialysis 02/17/2020 with repeat HD on 02/17 He remains on Lasix IV. Phos 11. Continue hemodialysis per Nephrology instructions; appreciate Nephrology input. Nephrology was okay to remove [place] but continue strict I/Os (5) Wound of left foot: Code(s): S91.302A - Unspecified open wound, left foot, initial encounter Status: Acute Assessment and Plan: Patient with a history of osteomyelitis status post left great toe amputation. Was discharged home on 02/13/2020 on long-term IV antibiotics from Zosyn. Continue Zosyn for now Wound care has been consulted Dr. Garcia did evaluate the patient and felt that his foot is not infected at this time; He will continue monitoring as an outpatient and recommends IV antibiotics and wound VAC to remain in place. Continue to same (6) Leukocytosis: Qualifiers: Leukocytosis type: unspecified Qualified Code(s): D72.829 - Elevated white blood cell count, unspecified Code(s): D72.829 - Elevated white blood cell count, unspecified Status: Acute Assessment and Plan: Secondary to diabetic foot versus UTI versus pneumonia. BCx NGTD. UCx negative. WBC normal now. (7) Chronic anemia: Code(s): D64.9 - Anemia, unspecified Status: Acute Assessment and Plan: Hemoglobin 9-10 range last admission. Currently hemoglobin running 8 9 range here. Hemoglobin today is 9.2. Likely anemia of chronic kidney disease. Continue to monitor. Epogen has been started. (8) Elevated liver enzymes: Code(s): R74.8 - Abnormal levels of other serum enzymes Status: Acute Assessment and Plan: LFTs continue to trend down. HepBs Ag and Ab negative. Probably related to hepatic congestion and should improve with improved fluid status. Continue to monitor (9) Chest pain: Qualifiers: Chest pain type: unspecified Qualified Code(s): R07.9 - Chest pain, unspecified Code(s): R07.9 - Chest pain, unspecified Status: Acute Assessment and Plan: No further chest pain. Troponins mildly elevated but flat at 0.066: felt related to renal failure. No acute EKG changes. Continue to monitor. (10) Elevated troponin: Code(s): R79.89 - Other specified abnormal findings of blood chemistry Status: Acute Assessme
--- NOTE | 2020-02-20 16:46 | PM.PNNEP ---
Progress Note: A&P Assessment and Plan (1) VLAD (acute kidney injury): Code(s): N17.9 - Acute kidney failure, unspecified Status: Acute Assessment and Plan: suspect multifactorial etiology based on last hospitalization - acute infection (DM wound + osteomyelitis) - volume depletion (pre-renal urine lytes) - concurrent use of valsartan and metformin - relative hypotension renal ultrasound normal given issues with pulmonary edema, mild hyperkalemia, and metabolic acidosis; had HD yesterday and day before follow electrolytes, volume status, and clearance - possible HD tomorrow consideration for renal biopsy given ongoing deterioration of renal function noted on admission - however, will need to ensure respiratory status good enought to allow for kidney biopsy to be done - suppose COVID-19 will need to be ruled out as well (2) Chronic kidney disease: Qualifiers: Chronic kidney disease stage: stage 4 (severe) Qualified Code(s): N18.4 - Chronic kidney disease, stage 4 (severe) Code(s): N18.9 - Chronic kidney disease, unspecified Status: Chronic Assessment and Plan: baseline creatinine runs ~ 2.0 - 2.5mg/dl based on outpatient evaluation - this is due to diabetes and hypertension - known to have nephrotic range proteinuria (3) Acute respiratory failure with hypoxia: Code(s): J96.01 - Acute respiratory failure with hypoxia Status: Acute Assessment and Plan: due to fluid overload/pulmonary edema fluid removal with dialysis as tolerated consider high dose diuretics but suspect dialysis will do a better job of fluid removal (4) Essential (primary) hypertension: Code(s): I10 - Essential (primary) hypertension Status: Acute Assessment and Plan: reasonable control for now follow hemodynamics (5) Wound of left foot: Code(s): S91.302A - Unspecified open wound, left foot, initial encounter Status: Acute Assessment and Plan: remains on antibiotics Podiatry following (6) Other specified anemias: Code(s): D64.89 - Other specified anemias Status: Acute Assessment and Plan: due to VLAD, CKD, and acute illness Epogen with HD follow trend of H/H Will continue to follow. Subjective Date/time seen: 02/20/20 16:46 Tolerated dialysis treatment earlier today but fluid removal limited by BP and HD catheter was giving HD nurse trouble with use; denies any significant shortness of breath. Exam Narrative: Exam Narrative: General: WD/WN male in NAD Heart: normal S1 and S2; no rub Lungs: clear anteriorly Abdomen: soft, nontender, nondistended, positive bowel sounds Extremities: no cyanosis or clubbing; trace edema Skin: warm and dry Objective Data Vital Signs Vital Signs: Vital Signs Temp Pulse Resp BP Pulse Ox 02/20/20 12:00 36.3 C L 75 18 146/96 H 99 02/20/20 10:00 74 02/20/20 08:00 36.7 C 74 13 147/97 H 98 02/20/20 07:59 74 02/20/20 06:00 74 02/20/20 04:00 36.4 C L 77 18 156/100 H 100 02/20/20 02:00 78 02/20/20 00:00 36.5 C 79 16 140/95 H 100 02/19/20 22:00 78 02/19/20 21:30 85 20 94 02/19/20 20:31 81 02/19/20 20:00 36.3 C L 79 16 140/90 96 02/19/20 18:00 80 Intake/Output Intake/Output: Intake & Output 02/17/20 02/18/20 02/19/20 02/20/20 23:59 23:59 23:59 23:59 Intake Total 096 555 7160 670 Output Total 2500 5480 1750 900 Balance -2100 -5180 -520 -230 Meds/Results Medications: Active Medications Generic Name Dose Route Start Last Admin Trade Name Freq PRN Reason Stop Dose Admin Amlodipine Besylate 10 mg 02/17/20 09:00 02/20/20 07:57 Norvasc PO 10 mg DAILY ALEX Administration Dextrose 12.5 gm 02/17/20 08:06 Dextrose 50% Syringe IV PUSH PRN PRN Hypoglycemia Protocol Famotidine 20 mg 02/17/20 09:00 02/19
[2020-02-20 16:49] LABS: Glucose Point of Care 157 (65-105)
[2020-02-20 20:51] LABS: Glucose Point of Care 116 (65-105)
[2020-02-20] MEDS: PANTOPRAZOLE 40 MG TABLET PO (21:39)
[2020-02-20] MEDS: INSULIN DETEMIR 100 UNITS/ML 40 UNITS SUB-Q (21:40)
[2020-02-21] VITALS (18 sets, daily range): BP systolic 107–164; BP diastolic 64–97; PULSE 77–89; RESP 14–18; TEMP 35.9–36.9; O2SAT 92–99
[2020-02-21 06:06] LABS: Basophils Percent Auto 0.3 % (0.2-1.2); Eosinophils Absolute Auto 0.1 K/mm3 (0-0.3); Eosinophils Percent Auto 1.4 % (0-4.4); Hematocrit 23.1 % (42.0-52.0); Hemoglobin 7.2 g/dL (14.0-18.0); Lymphocytes Absolute Auto 2.22 K/mm3 (0.9-3.2); Lymphocytes Percent Auto 22.9 % (18.3-44.2); Mean Corpuscular HGB Conc 31.2 g/dl (32-36); Mean Corpuscular Hemoglobin 24.2 pg (26-34); Mean Corpuscular Volume 77.5 fl (80-100); Mean Platelet Volume 9.6 fl (7.4-10.4); Monocytes Absolute Auto 1.2 K/mm3 (0.1-0.6); Neutrophils Percent Auto 62.4 % (45.5-73.1); Platelet Count Result 317 k/mm3 (150-375); Red Blood Count 2.98 M/mm3 (4.6-6.20); Red Cell Distribution Width 15.7 % (11.5-14.5); White Blood Count 9.7 K/mm3 (4.5-10.0)
[2020-02-21 06:29] LABS: Alanine Aminotransferase 86 U/L (4-50); Albumin Level 3.3 g/dL (3.5-5.1); Alkaline Phosphatase 101 U/L (38-126); Aspartate Amino Transferase 51 U/L (17-59); Bilirubin,Total 0.4 mg/dL (0.2-1.3); Blood Urea Nitrogen 54 mg/dL (9-20); Calcium 8.3 mg/dL (8.4-10.2); Carbon Dioxide 29 mmol/L (22-30); Chloride 99 mmol/L (98-107); Estimated CRCL calculation 12 ml/min; Estimated Glomerular Filt Rate 8; Glucose 92 mg/dL (75-110); Magnesium 2.3 mg/dL (1.6-2.3); Phosphorus 6.7 mg/dL (2.5-4.5); Potassium 3.5 mmol/L (3.4-5.0); Sodium 136 mmol/L (137-145)
[2020-02-21 08:20] LABS: Glucose Point of Care 87 (65-105)
[2020-02-21] MEDS: SEVELAMER CARBONATE 800 MG TABLET 1600 MG PO ×3 (09:30→17:08)
[2020-02-21] MEDS: AMLODIPINE BESYLATE 5 MG TABLET 10 MG PO (09:30)
[2020-02-21] MEDS: FAMOTIDINE 20 MG TABLET PO (09:30)
[2020-02-21] MEDS: SODIUM BICARBONATE TAB 650 MG TABLET 1300 MG PO ×2 (09:31→17:08)
[2020-02-21] MEDS: VENLAFAXINE HCL 25 MG TABLET 100 MG PO ×2 (09:31→17:08)
[2020-02-21] MEDS: METOPROLOL SUCCINATE EXT REL 100 MG TABCR PO ×2 (09:32→21:06)
[2020-02-21] MEDS: FUROSEMIDE INJ 100 MG/10 ML VIAL 80 MG IV PUSH ×2 (09:32→17:08)
--- NOTE | 2020-02-21 11:12 | WPDPN ---
Progress Note: A&P Additional Plan -s/p 1st ray section- wound is very healthy 100% granular with no signs of infection. -I was notified by [facility] that wound vac was stopped February 19, due to a dark discolored area along proximal aspect of amputation site. - Perhaps wound vac hose against skin led to pressure ulcer vs excessive VAC pressure. - I did inspect the wound, limited bedside debridement of the non viable tissue. Continue with wound vac therapy until wound is fully healed. Decrease wound VAC continuous pressure to 125mmHG. I will continue to monitor patient in between wound vac dressing changes by Wound Care Department. Dr. Garcia Review of Systems Constitutional: Constitutional: Reports no additional constitutional complaints Exam Extrem: Left lower extremity: foot Other: Distal 100% of the wound base of the first ray resection site is healthy and granular. No signs of infection, no purulence, no necrotic tissue. No periwound erythema. No calor present. Proximal portion of the 1st ray resction site had a small ischemic region this measured 10mm by 15mm, the superficial skin layer was debrided. The underlying tissue was normal. Objective Data Vital Signs Vital Signs: Vital Signs - 24 hr 02/20/20 11:15 02/20/20 11:30 02/20/20 11:45 Temperature Pulse Rate 71 72 75 Respiratory Rate Blood Pressure 144/89 H 146/90 H 123/90 Pulse Oximetry 02/20/20 12:00 02/20/20 12:30 02/20/20 12:45 Temperature 36.3 C L 37.0 C Pulse Rate 73 79 72 Respiratory Rate 18 20 Blood Pressure 130/81 111/76 137/81 Pulse Oximetry 99 02/20/20 14:00 02/20/20 16:00 02/20/20 18:00 Temperature 36.6 C Pulse Rate 83 82 89 Respiratory Rate 18 Blood Pressure 131/87 Pulse Oximetry 95 02/20/20 20:00 02/20/20 21:03 02/20/20 21:09 Temperature 36.9 C Pulse Rate 86 72 76 Respiratory Rate 20 Blood Pressure 123/72 135/84 128/63 Pulse Oximetry 98 02/20/20 21:39 02/20/20 22:00 02/21/20 00:00 Temperature 36.6 C Pulse Rate 74 90 89 Respiratory Rate 18 Blood Pressure 107/64 Pulse Oximetry 97 02/21/20 02:00 02/21/20 04:00 02/21/20 06:00 Temperature 36.9 C Pulse Rate 83 85 79 Respiratory Rate 18 Blood Pressure 145/93 H Pulse Oximetry 99 02/21/20 08:00 02/21/20 09:32 02/21/20 10:00 Temperature 36.2 C L Pulse Rate 77 77 80 Respiratory Rate 14 Blood Pressure 137/86 Pulse Oximetry 96 Intake/Output Intake/Output: Intake & Output 02/18/20 02/19/20 02/20/20 02/21/20 23:59 23:59 23:59 23:59 Intake Total 350 1230 1260 370 Output Total 5455 1750 2226 175 [facility] -[phone] 195 Meds/Results Medications: Active Medications Generic Name Dose Route Start Last Admin Trade Name Freq PRN Reason Stop Dose Admin Amlodipine Besylate 10 mg 02/17/20 09:00 02/21/20 09:30 Norvasc PO 10 mg DAILY ALEX Administration Dextrose 12.5 gm 02/17/20 08:06 Dextrose 50% Syringe IV PUSH PRN PRN Hypoglycemia Protocol Famotidine 20 mg 02/17/20 09:00 02/21/20 09:30 Pepcid PO 20 mg DAILY ALEX Administration Fenofibrate 145 mg 02/17/20 09:00 02/19/20 10:00 Tricor PO 145 mg QAM ALEX Administration Furosemide 80 mg 02/17/20 09:00 02/21/20 09:32 Lasix Inj IV PUSH 80 mg BID ALEX Administration Glucagon 1 mg 02/17/20 08:06 Glucagon For Inj IM PRN PRN Hypoglycemia Protocol Glucose 15 gm 02/17/20 08:06 Glutose 15 PO PRN PRN Hypoglycemia Protocol Dextrose 1,000 mls @ 100 mls/hr 02/17/20 08:06 Dextrose 5% 1,000 Ml IVPB PRN PRN Hypoglycemia Protocol Albumin Human 50 mls @ 999 mls/hr 02/18/20 07:39 Albutein IVPB 03/19/20 07:40 Q10M PRN HYPOTENSION Piperacillin Sod/Tazobactam Sod 2.25 gm in 50 mls @ 100 mls/hr 02/18/20 14:00 02/21/20 07:25 Zosyn 2.25 Gm/D5w 50 Ml IVPB Infused Q8HR ALEX Infusion Piperacillin Sod/
[2020-02-21 12:17] LABS: SARS-CoV-2 RNA PCR Negative
--- NOTE | 2020-02-21 12:47 | PCWOUND ---
WOCN NOTE Spoke to Dr Garcia at 12:15. received direction to hold wound vac until Monday, continue wet to dry dressings through the weekend.
[2020-02-21 13:03] LABS: Hepatitis B Core Ab Total Nonreactive (Nonreactive)
--- NOTE | 2020-02-21 14:42 | PM.PNNEP ---
Progress Note: A&P Assessment and Plan (1) VLAD (acute kidney injury): Code(s): N17.9 - Acute kidney failure, unspecified Status: Acute Assessment and Plan: suspect multifactorial etiology based on last hospitalization - acute infection (DM wound + osteomyelitis) - volume depletion (pre-renal urine lytes) - concurrent use of valsartan and metformin - relative hypotension renal ultrasound normal given issues with pulmonary edema, mild hyperkalemia, and metabolic acidosis; had HD yesterday and day before follow electrolytes, volume status, and clearance - possible HD tomorrow consideration for renal biopsy given ongoing deterioration of renal function noted on admission - unfortunately, his respiratory status and pending COVID-19 has delayed this intervention - will probably/tenatively plan for biopsy on Monday (unless kidney function recovers on its own) likely HD tomorrow (2) Chronic kidney disease: Qualifiers: Chronic kidney disease stage: stage 4 (severe) Qualified Code(s): N18.4 - Chronic kidney disease, stage 4 (severe) Code(s): N18.9 - Chronic kidney disease, unspecified Status: Chronic Assessment and Plan: baseline creatinine runs ~ 2.0 - 2.5mg/dl based on outpatient evaluation - this is due to diabetes and hypertension - known to have nephrotic range proteinuria (3) Acute respiratory failure with hypoxia: Code(s): J96.01 - Acute respiratory failure with hypoxia Status: Acute Assessment and Plan: due to fluid overload/pulmonary edema fluid removal with dialysis as tolerated consider high dose diuretics but suspect dialysis will do a better job of fluid removal (4) Essential (primary) hypertension: Code(s): I10 - Essential (primary) hypertension Status: Acute Assessment and Plan: reasonable control for now follow hemodynamics (5) Wound of left foot: Code(s): S91.302A - Unspecified open wound, left foot, initial encounter Status: Acute Assessment and Plan: remains on antibiotics Podiatry following (6) Other specified anemias: Code(s): D64.89 - Other specified anemias Status: Acute Assessment and Plan: due to VLAD, CKD, and acute illness Epogen with HD follow trend of H/H Will continue to follow. Subjective Date/time seen: 02/21/20 14:42 Respiratory status/hypoxia seems stable; off isolation as COVID-19 negative; no other apparent issues or problems voiced; feels reasonably well. Exam Narrative: Exam Narrative: General: WD/WN male in NAD Heart: normal S1 and S2; no rub Lungs: clear anteriorly Abdomen: soft, nontender, nondistended, positive bowel sounds Extremities: no cyanosis or clubbing; trace edema Skin: warm and dry Objective Data Vital Signs Vital Signs: Vital Signs Temp Pulse Resp BP Pulse Ox 02/21/20 14:29 77 02/21/20 12:00 36.2 C L 84 16 140/97 H 93 02/21/20 10:00 80 02/21/20 09:32 77 02/21/20 08:00 36.2 C L 77 14 137/86 96 02/21/20 06:00 79 02/21/20 04:00 36.9 C 85 18 145/93 H 99 02/21/20 02:00 83 02/21/20 00:00 36.6 C 89 18 107/64 97 02/20/20 22:00 90 02/20/20 21:39 74 02/20/20 21:09 76 128/63 02/20/20 21:03 72 135/84 02/20/20 20:00 36.9 C 86 20 123/72 98 02/20/20 18:00 89 02/20/20 16:00 36.6 C 82 18 131/87 95 Intake/Output Intake/Output: Intake & Output 02/18/20 02/19/20 02/20/20 02/21/20 23:59 23:59 23:59 23:59 Intake Total 350 1230 1260 610 Output Total 5403 1751 2224 175 [facility] -[phone] 435 Meds/Results Medications: Active Medications Generic Name Dose Route Start Last Admin Trade Name Freq PRN Reason Stop Dose Admin Amlodipine Besylate 10 mg 02/17/20 09:00 02/21/20 09:30 Norvasc PO 10 mg DAILY ALEX Administration Dextrose 12.5 gm 02/17/20 08:06
[2020-02-21 16:22] LABS: Glucose Point of Care 118 (65-105)
[2020-02-21 16:22] LABS: Glucose Point of Care 102 (65-105)
--- NOTE | 2020-02-21 17:17 | P.PNIM_ITS ---
Progress Note: A&P Assessment and Plan (1) Fever: Code(s): R50.9 - Fever, unspecified Status: Acute Assessment and Plan: * Could be from atelectasis vs recent left toe amputation vs pneumonia * CXR concerning for pulm edema; COVID ruled out. * No further fevers. (2) Acute respiratory failure with hypoxia: Code(s): J96.01 - Acute respiratory failure with hypoxia Status: Acute Assessment and Plan: * Patient presented with shortness of breath and was found to be hypoxic. * CXR showed pulmonary edema and he was started on IV Lasix 80 mg; HD started * Hypoxia felt related to acute renal failure and fluid overload. COVID negative * Wean O2 as tolerated (3) Volume overload: Qualifiers: Hypervolemia type: other Qualified Code(s): E87.79 - Other fluid overload Code(s): E87.70 - Fluid overload, unspecified Status: Acute Assessment and Plan: * Secondary to ongoing renal failure. * Patient had dialysis catheter placement 02/17/2020 and had dialysis 02/16, 02/17 and 02/19. * Negative cumulative fluid balance -7.8L * Down to 2L; Wean O2 as tolerated (4) VLAD (acute kidney injury): Code(s): N17.9 - Acute kidney failure, unspecified Status: Acute Assessment and Plan: * Cr was 2.4 in November. Cr 4.4 on 02/04/20 but worsened to 11.6 on 02/13/20. * Cr has worsened to 13.50 on arrival * Nephrology was consulted and a dialysis catheter was placed by surgery 02/16. * Patient started on dialysis 02/17/2020 with repeat HD on 02/17 and 02/19 * He remains on Lasix IV. Phos 6.7 today * Continue hemodialysis per Nephrology instructions; appreciate Nephrology input. (5) Wound of left foot: Code(s): S91.302A - Unspecified open wound, left foot, initial encounter Status: Acute Assessment and Plan: * Patient with a history of osteomyelitis status post left great toe amputation. * Was discharged home on 02/13/2020 on long-term IV antibiotics from Zosyn. Continue Zosyn for now * Wound care following * Dr. Garcia did evaluate the patient and felt that his foot is not infected at this time; He will continue monitoring as an outpatient and recommends IV antibiotics. Wound VAC removed. * Continue to same (6) Leukocytosis: Qualifiers: Leukocytosis type: unspecified Qualified Code(s): D72.829 - Elevated white blood cell count, unspecified Code(s): D72.829 - Elevated white blood cell count, unspecified Status: Acute Assessment and Plan: Secondary to diabetic foot versus UTI versus pneumonia. BCx NGTD. UCx negative. WBC remaining normal. (7) Chronic anemia: Code(s): D64.9 - Anemia, unspecified Status: Acute Assessment and Plan: Hemoglobin 9-10 range last admission. Currently hemoglobin running 8-9 range here but dropped to 7.2 today. No obvious blood loss. Could be related to recent HD. Continue to monitor. Continue Epogen. Repeat HH. (8) Elevated liver enzymes: Code(s): R74.8 - Abnormal levels of other serum enzymes Status: Acute Assessment and Plan: LFTs continue to trend down. HepBs Ag and Ab negative. Probably related to hepatic congestion and improving with improved fluid status. Continue to monitor (9) Chest pain: Qualifiers: Chest pain type: unspecified Qualified Code(s): R07.9 - Chest pain, unspecified Code(s): R07.9 - Chest pain, unspecified Status: Acute Assessment and Plan:
--- NOTE | 2020-02-21 17:17 | PM.IMPN ---
Progress Note: A&P Assessment and Plan (1) Fever: Code(s): R50.9 - Fever, unspecified Status: Acute Assessment and Plan: Could be from atelectasis vs recent left toe amputation vs pneumonia CXR concerning for pulm edema; COVID ruled out. No further fevers. (2) Acute respiratory failure with hypoxia: Code(s): J96.01 - Acute respiratory failure with hypoxia Status: Acute Assessment and Plan: Patient presented with shortness of breath and was found to be hypoxic. CXR showed pulmonary edema and he was started on IV Lasix 80 mg; HD started Hypoxia felt related to acute renal failure and fluid overload. COVID negative Wean O2 as tolerated (3) Volume overload: Qualifiers: Hypervolemia type: other Qualified Code(s): E87.79 - Other fluid overload Code(s): E87.70 - Fluid overload, unspecified Status: Acute Assessment and Plan: Secondary to ongoing renal failure. Patient had dialysis catheter placement 02/17/2020 and had dialysis 02/16, 02/17 and 02/19. Negative cumulative fluid balance -7.8L Down to 2L; Wean O2 as tolerated (4) VLAD (acute kidney injury): Code(s): N17.9 - Acute kidney failure, unspecified Status: Acute Assessment and Plan: Cr was 2.4 in November. Cr 4.4 on 02/04/20 but worsened to 11.6 on 02/13/20. Cr has worsened to 13.50 on arrival Nephrology was consulted and a dialysis catheter was placed by surgery 02/16. Patient started on dialysis 02/17/2020 with repeat HD on 02/17 and 02/19 He remains on Lasix IV. Phos 6.7 today Continue hemodialysis per Nephrology instructions; appreciate Nephrology input. (5) Wound of left foot: Code(s): S91.302A - Unspecified open wound, left foot, initial encounter Status: Acute Assessment and Plan: Patient with a history of osteomyelitis status post left great toe amputation. Was discharged home on 02/13/2020 on long-term IV antibiotics from Zosyn. Continue Zosyn for now Wound care following Dr. Garcia did evaluate the patient and felt that his foot is not infected at this time; He will continue monitoring as an outpatient and recommends IV antibiotics. Wound VAC removed. Continue to same (6) Leukocytosis: Qualifiers: Leukocytosis type: unspecified Qualified Code(s): D72.829 - Elevated white blood cell count, unspecified Code(s): D72.829 - Elevated white blood cell count, unspecified Status: Acute Assessment and Plan: Secondary to diabetic foot versus UTI versus pneumonia. BCx NGTD. UCx negative. WBC remaining normal. (7) Chronic anemia: Code(s): D64.9 - Anemia, unspecified Status: Acute Assessment and Plan: Hemoglobin 9-10 range last admission. Currently hemoglobin running 8-9 range here but dropped to 7.2 today. No obvious blood loss. Could be related to recent HD. Continue to monitor. Continue Epogen. Repeat HH. (8) Elevated liver enzymes: Code(s): R74.8 - Abnormal levels of other serum enzymes Status: Acute Assessment and Plan: LFTs continue to trend down. HepBs Ag and Ab negative. Probably related to hepatic congestion and improving with improved fluid status. Continue to monitor (9) Chest pain: Qualifiers: Chest pain type: unspecified Qualified Code(s): R07.9 - Chest pain, unspecified Code(s): R07.9 - Chest pain, unspecified Status: Acute Assessment and Plan: No further chest pain. Troponins mildly elevated but flat at 0.066: felt related to renal failure. No acute EKG changes. Continue to monitor. (10) Elevated troponin: Code(s): R79.89 - Other specified abnormal findings of blood chemistry Status: Acute Assessment and Plan: Troponin 0.066 and leak likely secondary to acute renal failure. As above (11) Diabetes mellitus: Qualifiers: Diabetes mellitus type: type
[2020-02-21 18:06] LABS: Hematocrit 32.6 % (42.0-52.0)
--- NOTE | 2020-02-21 18:29 | PC.NURSE ---
This patient, Pankaj Bautista, was transferred to [facility] on 02/21/20 at 1829. Personal belongings sent with patient. Belongings list checked and signed with receiving RN. Report given to JESENIA Riojas. Appropriate documentation sent with patient.
--- NOTE | 2020-02-21 18:32 | PC.NURSE ---
This patient, Pankaj Bautista, was received from [U /] on 02/21/20 at 1832. Personal belongings list checked and signed. Patient/family oriented to unit policies and routines
[2020-02-21] MEDS: INSULIN DETEMIR 100 UNITS/ML 40 UNITS SUB-Q (21:06)
[2020-02-21] MEDS: PANTOPRAZOLE 40 MG TABLET PO (21:06)
[2020-02-21 21:15] LABS: Glucose Point of Care 148 (65-105)
[2020-02-22] VITALS (21 sets, daily range): BP systolic 89–159; BP diastolic 42–102; PULSE 82–100; RESP 14–20; TEMP 36–37.2; O2SAT 96–98
[2020-02-22 07:09] LABS: Hematocrit 29.7 % (42.0-52.0); Hemoglobin 9.3 g/dL (14.0-18.0); Mean Corpuscular HGB Conc 31.3 g/dl (32-36); Mean Corpuscular Hemoglobin 23.9 pg (26-34); Mean Corpuscular Volume 76.3 fl (80-100); Mean Platelet Volume 9.7 fl (7.4-10.4); Platelet Count Result 288 k/mm3 (150-375); Red Blood Count 3.89 M/mm3 (4.6-6.20); Red Cell Distribution Width 15.9 % (11.5-14.5); White Blood Count 11.1 K/mm3 (4.5-10.0)
[2020-02-22 07:19] LABS: Albumin Level 3.4 g/dL (3.5-5.1); Blood Urea Nitrogen 63 mg/dL (9-20); Calcium 8.2 mg/dL (8.4-10.2); Carbon Dioxide 26 mmol/L (22-30); Chloride 97 mmol/L (98-107); Estimated CRCL calculation 9 ml/min; Estimated Glomerular Filt Rate 6; Glucose 104 mg/dL (75-110); Phosphorus 7.4 mg/dL (2.5-4.5); Potassium 3.7 mmol/L (3.4-5.0); Sodium 136 mmol/L (137-145)
[2020-02-22 07:41] LABS: Glucose Point of Care 104 (65-105)
[2020-02-22 08:06] LABS: Iron 41 ug/dL (49-181)
[2020-02-22 08:21] LABS: Percent Iron Saturation 15 % (20-50)
[2020-02-22 08:25] LABS: Folic Acid 9.9 ng/mL (2.76->20)
[2020-02-22] MEDS: FAMOTIDINE 20 MG TABLET PO (08:58)
[2020-02-22] MEDS: SODIUM BICARBONATE TAB 650 MG TABLET 1300 MG PO ×2 (08:58→18:35)
[2020-02-22] MEDS: VENLAFAXINE HCL 25 MG TABLET 100 MG PO ×2 (08:58→18:35)
[2020-02-22] MEDS: FUROSEMIDE INJ 100 MG/10 ML VIAL 80 MG IV PUSH (08:58)
[2020-02-22] MEDS: AMLODIPINE BESYLATE 5 MG TABLET 10 MG PO (08:58)
[2020-02-22] MEDS: METOPROLOL SUCCINATE EXT REL 100 MG TABCR PO ×2 (08:58→21:07)
[2020-02-22] MEDS: SEVELAMER CARBONATE 800 MG TABLET 1600 MG PO ×3 (08:59→18:34)
--- NOTE | 2020-02-22 10:23 | PM.PNNEP ---
Progress Note: A&P Assessment and Plan (1) VLAD (acute kidney injury): Code(s): N17.9 - Acute kidney failure, unspecified Status: Acute Assessment and Plan: suspect multifactorial etiology based on last hospitalization - acute infection (DM wound + osteomyelitis) - volume depletion (pre-renal urine lytes) - concurrent use of valsartan and metformin - relative hypotension renal ultrasound normal given issues with pulmonary edema, mild hyperkalemia, and metabolic acidosis; had HD initiated on this admission in spite of good urine output, BUN and creatinine rise between dialysis treatments consideration for renal biopsy given lack of improvement in renal function since last hospitalization - unfortunately, his respiratory status and COVID-19 testing delayed this intervention - will probably/tenatively plan for biopsy on Monday (unless evidence of kidney function recovers on its own) HD today mainly for clearance of uremic toxins and some fluid removal (2) Chronic kidney disease: Qualifiers: Chronic kidney disease stage: stage 4 (severe) Qualified Code(s): N18.4 - Chronic kidney disease, stage 4 (severe) Code(s): N18.9 - Chronic kidney disease, unspecified Status: Chronic Assessment and Plan: baseline creatinine runs ~ 2.0 - 2.5mg/dl based on outpatient evaluation - this is due to diabetes and hypertension - known to have nephrotic range proteinuria (3) Acute respiratory failure with hypoxia: Code(s): J96.01 - Acute respiratory failure with hypoxia Status: Acute Assessment and Plan: due to fluid overload/pulmonary edema/pneumonia fluid removal with dialysis as tolerated on antibiotics (4) Essential (primary) hypertension: Code(s): I10 - Essential (primary) hypertension Status: Acute Assessment and Plan: reasonable control for now follow hemodynamics (5) Wound of left foot: Code(s): S91.302A - Unspecified open wound, left foot, initial encounter Status: Acute Assessment and Plan: remains on antibiotics Podiatry following (6) Other specified anemias: Code(s): D64.89 - Other specified anemias Status: Acute Assessment and Plan: due to VLAD, CKD, and acute illness Epogen with HD follow trend of H/H Will continue to follow. Subjective Date/time seen: 02/22/20 10:23 COVID-19 ruled out and is off isolation; respiratory status in general is better and continues to improve; overall, he states he feels well; no issues or problems overnight or this AM. Exam Narrative: Exam Narrative: General: WD/WN male in NAD Heart: normal S1 and S2; no rub Lungs: clear anteriorly Abdomen: soft, nontender, nondistended, positive bowel sounds Extremities: no cyanosis or clubbing; trace edema Skin: warm and intact Objective Data Vital Signs Vital Signs: Vital Signs Temp Pulse Resp BP Pulse Ox 02/22/20 08:58 90 02/22/20 06:08 36.3 C L 90 18 159/88 H 98 02/22/20 01:59 36.0 C L 82 16 152/86 H 96 02/21/20 22:09 78 94 02/21/20 21:21 35.9 C L 85 18 164/94 H 95 02/21/20 21:06 85 02/21/20 21:04 77 98 02/21/20 20:12 88 98 02/21/20 18:01 81 02/21/20 16:00 36.5 C 77 14 126/76 99 02/21/20 15:25 92 02/21/20 14:47 97 02/21/20 14:29 77 02/21/20 12:00 36.2 C L 84 16 140/97 H 93 Intake/Output Intake/Output: Intake & Output 02/19/20 02/20/20 02/21/20 02/22/20 23:59 23:59 23:59 23:59 Intake Total 1230 1260 1150 920 Output Total 1750 2226 175 950 Balance -520 -966 975 -30 Meds/Results Medications: Active Medications Generic Name Dose Route Start Last Admin Trade Name Yuliet PRN Reason Stop Dose Admin Amlodipine Besylate 10 mg 02/17/20 09:00 02/22/20 08:58 Norvasc PO 10 mg DAILY ALEX Administration Dextrose 12.5 gm 02/17/20 08:06 Dextrose
--- NOTE | 2020-02-22 10:51 | P.PNIM_ITS ---
Progress Note: A&P Assessment and Plan (1) Fever: Code(s): R50.9 - Fever, unspecified Status: Acute Assessment and Plan: Patient febrile with T-max 101.6? on 02/18/2020. He has been afebrile >48 hours * Could be from atelectasis vs recent left toe amputation vs pneumonia * CXR concerning for pulm edema; COVID ruled out. (2) Acute respiratory failure with hypoxia: Code(s): J96.01 - Acute respiratory failure with hypoxia Status: Acute Assessment and Plan: Patient presented with shortness of breath and was found to be hypoxic. CXR showed pulmonary edema and he was started on IV Lasix 80 mg; HD started * Hypoxia felt related to acute renal failure and fluid overload. COVID negative * Wean O2 as tolerated. Patient stable on room air today at 98% (3) Volume overload: Qualifiers: Hypervolemia type: other Qualified Code(s): E87.79 - Other fluid overload Code(s): E87.70 - Fluid overload, unspecified Status: Acute Assessment and Plan: Secondary to ongoing renal failure. Patient had dialysis catheter placement 02/17/2020 and had dialysis 02/16, 02/17 and 02/19. * Negative cumulative fluid balance -7.8L * Wean O2 as tolerated, stable on room air today * Plan for dialysis today * Continue to monitor I&O (4) VLAD (acute kidney injury): Code(s): N17.9 - Acute kidney failure, unspecified Status: Acute Assessment and Plan: Cr was 2.4 in November. Cr 4.4 on 02/04/20 but worsened to 11.6 on 02/13/20. Cr has worsened to 13.50 on arrival. BUN and creatinine continue to increase between dialysis treatments. Today creatinine is 9.1, BUN 63 * Nephrology was consulted and a dialysis catheter was placed by surgery 02/16. * Patient started on dialysis 02/17/2020 with repeat HD on 02/17 and 02/19 * Plan for dialysis today * He remains on Lasix IV. Phos 7.4 today * Continue hemodialysis per Nephrology instructions; appreciate Nephrology input. * Possible renal biopsy on Monday. (5) Wound of left foot: Code(s): S91.302A - Unspecified open wound, left foot, initial encounter Status: Acute Assessment and Plan: Patient with a history of osteomyelitis status post left great toe amputation. * Was discharged home on 02/13/2020 on long-term IV antibiotics from Zosyn. Continue Zosyn for now * Wound care following * Dr. Garcia did evaluate the patient and felt that his foot is not infected at this time; He will continue monitoring as an outpatient and recommends IV antibiotics. Wound VAC removed. * Continue IV Zosyn (6) Leukocytosis: Qualifiers: Leukocytosis type: unspecified Qualified Code(s): D72.829 - Elevated white blood cell count, unspecified Code(s): D72.829 - Elevated white blood cell count, unspecified Status: Acute Assessment and Plan: Secondary to diabetic foot versus UTI versus pneumonia. * Blood cultures cultures reveal NGTD * Urine cultures with no growth * WBC increased to 11.1 today. * Continue to monitor (7) Chronic anemia: Code(s): D64.9 - Anemia, unspecified Status: Acute Assessment and Plan: Hemoglobin 9-10 range last admission. Currently hemoglobin running 8-9 range here. Hgb 9.3 today, Hct 29.7. No obvious blood loss. Could be related to recent HD. * Continue to monitor H&H and transfuse prn with threshold Hgb 7.0. * Continue Epogen. (8) Elevated liver enzymes: Code(s): R74.8 - Abnormal levels of other serum en
--- NOTE | 2020-02-22 10:51 | PM.IMPN ---
Progress Note: A&P Assessment and Plan (1) Fever: Code(s): R50.9 - Fever, unspecified Status: Acute Assessment and Plan: Patient febrile with T-max 101.6? on 02/18/2020. He has been afebrile >48 hours Could be from atelectasis vs recent left toe amputation vs pneumonia CXR concerning for pulm edema; COVID ruled out. (2) Acute respiratory failure with hypoxia: Code(s): J96.01 - Acute respiratory failure with hypoxia Status: Acute Assessment and Plan: Patient presented with shortness of breath and was found to be hypoxic. CXR showed pulmonary edema and he was started on IV Lasix 80 mg; HD started Hypoxia felt related to acute renal failure and fluid overload. COVID negative Wean O2 as tolerated. Patient stable on room air today at 98% (3) Volume overload: Qualifiers: Hypervolemia type: other Qualified Code(s): E87.79 - Other fluid overload Code(s): E87.70 - Fluid overload, unspecified Status: Acute Assessment and Plan: Secondary to ongoing renal failure. Patient had dialysis catheter placement 02/17/2020 and had dialysis 02/16, 02/17 and 02/19. Negative cumulative fluid balance -7.8L Wean O2 as tolerated, stable on room air today Plan for dialysis today Continue to monitor I&O (4) VLAD (acute kidney injury): Code(s): N17.9 - Acute kidney failure, unspecified Status: Acute Assessment and Plan: Cr was 2.4 in November. Cr 4.4 on 02/04/20 but worsened to 11.6 on 02/13/20. Cr has worsened to 13.50 on arrival. BUN and creatinine continue to increase between dialysis treatments. Today creatinine is 9.1, BUN 63 Nephrology was consulted and a dialysis catheter was placed by surgery 02/16. Patient started on dialysis 02/17/2020 with repeat HD on 02/17 and 02/19 Plan for dialysis today He remains on Lasix IV. Phos 7.4 today Continue hemodialysis per Nephrology instructions; appreciate Nephrology input. Possible renal biopsy on Monday. (5) Wound of left foot: Code(s): S91.302A - Unspecified open wound, left foot, initial encounter Status: Acute Assessment and Plan: Patient with a history of osteomyelitis status post left great toe amputation. Was discharged home on 02/13/2020 on long-term IV antibiotics from Zosyn. Continue Zosyn for now Wound care following Dr. Garcia did evaluate the patient and felt that his foot is not infected at this time; He will continue monitoring as an outpatient and recommends IV antibiotics. Wound VAC removed. Continue IV Zosyn (6) Leukocytosis: Qualifiers: Leukocytosis type: unspecified Qualified Code(s): D72.829 - Elevated white blood cell count, unspecified Code(s): D72.829 - Elevated white blood cell count, unspecified Status: Acute Assessment and Plan: Secondary to diabetic foot versus UTI versus pneumonia. Blood cultures cultures reveal NGTD Urine cultures with no growth WBC increased to 11.1 today. Continue to monitor (7) Chronic anemia: Code(s): D64.9 - Anemia, unspecified Status: Acute Assessment and Plan: Hemoglobin 9-10 range last admission. Currently hemoglobin running 8-9 range here. Hgb 9.3 today, Hct 29.7. No obvious blood loss. Could be related to recent HD. Continue to monitor H&H and transfuse prn with threshold Hgb 7.0. Continue Epogen. (8) Elevated liver enzymes: Code(s): R74.8 - Abnormal levels of other serum enzymes Status: Acute Assessment and Plan: LFTs elevated but showing improvement in trending down. HepBs Ag and Ab negative. Probably related to hepatic congestion and improving with improved fluid status. Continue to monitor Will repeat LFT to monitor trend. No LFTs drawn this morning. (9) Chest pain: Qualifiers: Chest pain type: unspecified Qualified Code(s): R07.9 - Chest pain, unspecified Code(s): R0
[2020-02-22 11:38] LABS: Glucose Point of Care 122 (65-105)
[2020-02-22 13:28] LABS: Alanine Aminotransferase 55 U/L (4-50); Albumin Level 3.4 g/dL (3.5-5.1); Alkaline Phosphatase 108 U/L (38-126); Aspartate Amino Transferase 48 U/L (17-59); Bilirubin,Total 0.5 mg/dL (0.2-1.3); Blood Urea Nitrogen 67 mg/dL (9-20); Calcium 8.4 mg/dL (8.4-10.2); Carbon Dioxide 26 mmol/L (22-30); Chloride 97 mmol/L (98-107); Estimated CRCL calculation 8 ml/min; Estimated Glomerular Filt Rate 6; Glucose 177 mg/dL (75-110); Potassium 3.5 mmol/L (3.4-5.0); Sodium 135 mmol/L (137-145)
--- NOTE | 2020-02-22 14:53 | PC.NURSE ---
To dialysis room per bed, IV intact.
[2020-02-22] MEDS: PHARMACIST COMMUNICATION ORDER 1 EACH XX (18:34)
[2020-02-22 18:35] LABS: Glucose Point of Care 103 (65-105)
--- NOTE | 2020-02-22 18:36 | PC.NURSE ---
Returned from dialysis per bed.
[2020-02-22] MEDS: INSULIN DETEMIR 100 UNITS/ML 40 UNITS SUB-Q (21:07)
[2020-02-22] MEDS: PANTOPRAZOLE 40 MG TABLET PO (21:07)
[2020-02-22 21:34] LABS: Glucose Point of Care 156 (65-105)
[2020-02-23] VITALS (7 sets, daily range): BP systolic 134–147; BP diastolic 82–98; PULSE 84–92; RESP 16–18; TEMP 36.6–37.1; O2SAT 94–98
--- NOTE | 2020-02-23 01:41 | PC.NURSE ---
per [facility] in Pharmacy notified not to give additional 0.75 gm PRN dose of Zosyn per pharmacy renal dosing
[2020-02-23 06:15] LABS: Hematocrit 31.2 % (42.0-52.0); Hemoglobin 9.7 g/dL (14.0-18.0); Mean Corpuscular HGB Conc 31.1 g/dl (32-36); Mean Corpuscular Hemoglobin 23.7 pg (26-34); Mean Corpuscular Volume 76.3 fl (80-100); Platelet Count Result 279 k/mm3 (150-375); Red Blood Count 4.09 M/mm3 (4.6-6.20); Red Cell Distribution Width 15.9 % (11.5-14.5)
[2020-02-23 06:42] LABS: Alanine Aminotransferase 50 U/L (4-50); Albumin Level 3.7 g/dL (3.5-5.1); Alkaline Phosphatase 95 U/L (38-126); Aspartate Amino Transferase 51 U/L (17-59); Bilirubin,Total 0.6 mg/dL (0.2-1.3); Blood Urea Nitrogen 34 mg/dL (9-20); Calcium 8.9 mg/dL (8.4-10.2); Carbon Dioxide 34 mmol/L (22-30); Chloride 94 mmol/L (98-107); Estimated CRCL calculation 12 ml/min; Estimated Glomerular Filt Rate 9; Glucose 88 mg/dL (75-110); Phosphorus 6.2 mg/dL (2.5-4.5); Potassium 3.5 mmol/L (3.4-5.0); Sodium 141 mmol/L (137-145)
--- NOTE | 2020-02-23 09:08 | P.PNNP_ITS ---
Progress Note: A&P Assessment and Plan (1) VLAD (acute kidney injury): Code(s): N17.9 - Acute kidney failure, unspecified Status: Acute Assessment and Plan: * suspect multifactorial ATN based on last and this hospitalization: - acute infection (DM wound + osteomyelitis) - volume depletion (pre-renal urine lytes on last check) - concurrent use of valsartan and metformin - relative hypotension - fevers (and associated insensible losses) * renal ultrasound normal * given issues with pulmonary edema, mild hyperkalemia, and metabolic acidosis; HD initiated on this admission * in spite of good urine output, BUN and creatinine continue to rise between dialysis treatments * consider renal biopsy given lack of improvement in renal function since last hospitalization - unfortunately, his respiratory status and COVID-19 testing delayed this intervention - will probably/tenatively plan for biopsy on tomorrow (unless evidence of kidney function recovery noted) * HD yesterday mainly for clearance of uremic toxins (2) Chronic kidney disease: Qualifiers: Chronic kidney disease stage: stage 4 (severe) Qualified Code(s): N18.4 - Chronic kidney disease, stage 4 (severe) Code(s): N18.9 - Chronic kidney disease, unspecified Status: Chronic Assessment and Plan: * baseline creatinine runs ~ 2.0 - 2.5mg/dl * based on outpatient evaluation - this is due to diabetes and hypertension - known to have nephrotic range proteinuria (3) Acute respiratory failure with hypoxia: Code(s): J96.01 - Acute respiratory failure with hypoxia Status: Acute Assessment and Plan: * resolved/resolving * due to fluid overload/pulmonary edema/pneumonia * fluid removal with dialysis as needed (making good urine output) * on antibiotics (more so for #5) (4) Essential (primary) hypertension: Code(s): I10 - Essential (primary) hypertension Status: Acute Assessment and Plan: * reasonable control for now * follow hemodynamics (5) Wound of left foot: Code(s): S91.302A - Unspecified open wound, left foot, initial encounter Status: Acute Assessment and Plan: * remains on antibiotics * Podiatry following (6) Other specified anemias: Code(s): D64.89 - Other specified anemias Status: Acute Assessment and Plan: * due to VLAD, CKD, and acute illness * Epogen with HD * follow trend of H/H Will continue to follow. Subjective Date/time seen: 02/23/20 09:08 Tolerated dialysis yesterday without any issues or problems although post- treatment he did not feel well; respiratory status/breathing back to baseline without the need for supplemental oxygen; overall, feels pretty good. Exam Narrative: Exam Narrative: General: WD/WN male in NAD Heart: normal S1 and S2; no rub Lungs: clear anteriorly Abdomen: soft, nontender, nondistended, positive bowel sounds Extremities: no cyanosis or clubbing; no edema Skin: no rash or nodules Objective Data Vital Signs Vital Signs: Vital Signs Temp Pulse Resp BP Pulse Ox 02/23/20 06:05 37.1 C 84 18 144/92 H 96 02/23/20 02:19 36.9 C 92 16 134/98 H 95 02/22/20 22:01 37.2 C 88 18 138/71 96 02/22/20 21:07 88 02/22/20 18:16 37.0 C 95 20 152/95 H 02/22/20 18:00 94 120/74 02/22/20 17:30 98
--- NOTE | 2020-02-23 09:08 | PM.PNNEP ---
Progress Note: A&P Assessment and Plan (1) VLAD (acute kidney injury): Code(s): N17.9 - Acute kidney failure, unspecified Status: Acute Assessment and Plan: suspect multifactorial ATN based on last and this hospitalization: - acute infection (DM wound + osteomyelitis) - volume depletion (pre-renal urine lytes on last check) - concurrent use of valsartan and metformin - relative hypotension - fevers (and associated insensible losses) renal ultrasound normal given issues with pulmonary edema, mild hyperkalemia, and metabolic acidosis; HD initiated on this admission in spite of good urine output, BUN and creatinine continue to rise between dialysis treatments consider renal biopsy given lack of improvement in renal function since last hospitalization - unfortunately, his respiratory status and COVID-19 testing delayed this intervention - will probably/tenatively plan for biopsy on tomorrow (unless evidence of kidney function recovery noted) HD yesterday mainly for clearance of uremic toxins (2) Chronic kidney disease: Qualifiers: Chronic kidney disease stage: stage 4 (severe) Qualified Code(s): N18.4 - Chronic kidney disease, stage 4 (severe) Code(s): N18.9 - Chronic kidney disease, unspecified Status: Chronic Assessment and Plan: baseline creatinine runs ~ 2.0 - 2.5mg/dl based on outpatient evaluation - this is due to diabetes and hypertension - known to have nephrotic range proteinuria (3) Acute respiratory failure with hypoxia: Code(s): J96.01 - Acute respiratory failure with hypoxia Status: Acute Assessment and Plan: resolved/resolving due to fluid overload/pulmonary edema/pneumonia fluid removal with dialysis as needed (making good urine output) on antibiotics (more so for #5) (4) Essential (primary) hypertension: Code(s): I10 - Essential (primary) hypertension Status: Acute Assessment and Plan: reasonable control for now follow hemodynamics (5) Wound of left foot: Code(s): S91.302A - Unspecified open wound, left foot, initial encounter Status: Acute Assessment and Plan: remains on antibiotics Podiatry following (6) Other specified anemias: Code(s): D64.89 - Other specified anemias Status: Acute Assessment and Plan: due to VLAD, CKD, and acute illness Epogen with HD follow trend of H/H Will continue to follow. Subjective Date/time seen: 02/23/20 09:08 Tolerated dialysis yesterday without any issues or problems although post-treatment he did not feel well; respiratory status/breathing back to baseline without the need for supplemental oxygen; overall, feels pretty good. Exam Narrative: Exam Narrative: General: WD/WN male in NAD Heart: normal S1 and S2; no rub Lungs: clear anteriorly Abdomen: soft, nontender, nondistended, positive bowel sounds Extremities: no cyanosis or clubbing; no edema Skin: no rash or nodules Objective Data Vital Signs Vital Signs: Vital Signs Temp Pulse Resp BP Pulse Ox 02/23/20 06:05 37.1 C 84 18 144/92 H 96 02/23/20 02:19 36.9 C 92 16 134/98 H 95 02/22/20 22:01 37.2 C 88 18 138/71 96 02/22/20 21:07 88 02/22/20 18:16 37.0 C 95 20 152/95 H 02/22/20 18:00 94 120/74 02/22/20 17:30 98 128/102 H 02/22/20 17:15 95 133/95 H 02/22/20 17:00 96 99/71 L 02/22/20 16:45 94 110/66 02/22/20 16:30 94 119/62 02/22/20 16:15 93 110/76 02/22/20 16:00 90 118/69 02/22/20 15:45 92 89/42 L 02/22/20 15:30 100 92/57 L 02/22/20 15:15 92 137/91 H 02/22/20 15:02 37.0 C 92 16 155/102 H 02/22/20 14:00 36.3 C L 83 18 155/88 H 98 02/22/20 12:00 36.4 C 88 14 155/99 H 96 Intake/Output Intake/Output: Intake & Output 02/20/20 02/21/20 02/22/20 02/23/20 23:59 23:59 23:59 23:59 Intake To
[2020-02-23] MEDS: AMLODIPINE BESYLATE 5 MG TABLET 10 MG PO (09:53)
[2020-02-23] MEDS: SEVELAMER CARBONATE 800 MG TABLET 1600 MG PO ×3 (09:53→17:59)
[2020-02-23] MEDS: FAMOTIDINE 20 MG TABLET PO (09:54)
[2020-02-23] MEDS: VENLAFAXINE HCL 25 MG TABLET 100 MG PO ×2 (09:54→17:59)
[2020-02-23] MEDS: METOPROLOL SUCCINATE EXT REL 100 MG TABCR PO ×2 (09:54→20:50)
[2020-02-23 09:58] LABS: Glucose Point of Care 76 (65-105)
--- NOTE | 2020-02-23 11:48 | P.PNIM_ITS ---
Progress Note: A&P Assessment and Plan (1) VLAD (acute kidney injury): Code(s): N17.9 - Acute kidney failure, unspecified Status: Acute Assessment and Plan: Cr was 2.4 in November. Cr 4.4 on 02/04/20 but worsened to 11.6 on 02/13/20. Cr worsened to 13.50 on arrival. BUN and creatinine continue to increase between dialysis treatments. Today creatinine is 6.5, BUN 34 both improved following HD. * Nephrology was consulted and a dialysis catheter was placed by surgery 02/16. * Patient started on dialysis 02/17/2020 with repeat HD on 02/17 and 02/19 * He remains on Lasix IV. * Continue hemodialysis per Nephrology instructions; appreciate Nephrology input. * Possible renal biopsy tomorrow. (2) Acute respiratory failure with hypoxia: Code(s): J96.01 - Acute respiratory failure with hypoxia Status: Acute Assessment and Plan: Patient presented with shortness of breath and was found to be hypoxic. CXR showed pulmonary edema and he was started on IV Lasix 80 mg; HD started * Hypoxia felt related to acute renal failure and fluid overload. COVID negative * Wean O2 as tolerated. Patient stable on room air today at 98% * Respiratory status is back to baseline (3) Volume overload: Qualifiers: Hypervolemia type: other Qualified Code(s): E87.79 - Other fluid overload Code(s): E87.70 - Fluid overload, unspecified Status: Acute Assessment and Plan: Secondary to ongoing renal failure. Patient had dialysis catheter placement 02/17/2020 and had dialysis 02/16, 02/17, 02/19, and 02/22/20. * Negative cumulative fluid balance -7.8L * Wean O2 as tolerated, stable on room air today * Continue to monitor I&O * Continue IV Lasix * Urine output has been adequate (4) Fever: Code(s): R50.9 - Fever, unspecified Status: Acute Assessment and Plan: Patient previously febrile with T-max 101.6? on 02/18/2020. He has been afebrile >72 hours * Could be from atelectasis vs recent left toe amputation vs pneumonia * CXR concerning for pulm edema; COVID ruled out. (5) Wound of left foot: Code(s): S91.302A - Unspecified open wound, left foot, initial encounter Status: Acute Assessment and Plan: Patient with a history of osteomyelitis status post left great toe amputation. * Was discharged home on 02/13/2020 on long-term IV antibiotics from Zosyn. * Wound care following * Dr. Garcia did evaluate the patient and felt that his foot is not infected at this time; He will continue monitoring as an outpatient and recommends IV antibiotics. Wound VAC removed. * Continue IV Zosyn (6) Leukocytosis: Qualifiers: Leukocytosis type: unspecified Qualified Code(s): D72.829 - Elevated white blood cell count, unspecified Code(s): D72.829 - Elevated white blood cell count, unspecified Status: Acute Assessment and Plan: Secondary to diabetic foot versus UTI versus pneumonia. * Blood cultures cultures reveal NGTD * Urine cultures with no growth * WBC improved to 8.0 today. * Continue to monitor (7) Chronic anemia: Code(s): D64.9 - Anemia, unspecified Status: Acute Assessment and Plan: Hemoglobin 9-10 range last admission. Currently hemoglobin running 8-9 range here. Hgb 9.7 today, Hct 31.2. Microcytic. No obvious blood loss. Could be related to recent HD. Iron panel revealed low iron and %saturation with normal TIBC and elevated ferritin. * Continue to monitor H&H and transfuse prn with thres
--- NOTE | 2020-02-23 11:48 | PM.IMPN ---
Progress Note: A&P Assessment and Plan (1) VLAD (acute kidney injury): Code(s): N17.9 - Acute kidney failure, unspecified Status: Acute Assessment and Plan: Cr was 2.4 in November. Cr 4.4 on 02/04/20 but worsened to 11.6 on 02/13/20. Cr worsened to 13.50 on arrival. BUN and creatinine continue to increase between dialysis treatments. Today creatinine is 6.5, BUN 34 both improved following HD. Nephrology was consulted and a dialysis catheter was placed by surgery 02/16. Patient started on dialysis 02/17/2020 with repeat HD on 02/17 and 02/19 He remains on Lasix IV. Continue hemodialysis per Nephrology instructions; appreciate Nephrology input. Possible renal biopsy tomorrow. (2) Acute respiratory failure with hypoxia: Code(s): J96.01 - Acute respiratory failure with hypoxia Status: Acute Assessment and Plan: Patient presented with shortness of breath and was found to be hypoxic. CXR showed pulmonary edema and he was started on IV Lasix 80 mg; HD started Hypoxia felt related to acute renal failure and fluid overload. COVID negative Wean O2 as tolerated. Patient stable on room air today at 98% Respiratory status is back to baseline (3) Volume overload: Qualifiers: Hypervolemia type: other Qualified Code(s): E87.79 - Other fluid overload Code(s): E87.70 - Fluid overload, unspecified Status: Acute Assessment and Plan: Secondary to ongoing renal failure. Patient had dialysis catheter placement 02/17/2020 and had dialysis 02/16, 02/17, 02/19, and 02/22/20. Negative cumulative fluid balance -7.8L Wean O2 as tolerated, stable on room air today Continue to monitor I&O Continue IV Lasix Urine output has been adequate (4) Fever: Code(s): R50.9 - Fever, unspecified Status: Acute Assessment and Plan: Patient previously febrile with T-max 101.6? on 02/18/2020. He has been afebrile >72 hours Could be from atelectasis vs recent left toe amputation vs pneumonia CXR concerning for pulm edema; COVID ruled out. (5) Wound of left foot: Code(s): S91.302A - Unspecified open wound, left foot, initial encounter Status: Acute Assessment and Plan: Patient with a history of osteomyelitis status post left great toe amputation. Was discharged home on 02/13/2020 on long-term IV antibiotics from Zosyn. Wound care following Dr. Garcia did evaluate the patient and felt that his foot is not infected at this time; He will continue monitoring as an outpatient and recommends IV antibiotics. Wound VAC removed. Continue IV Zosyn (6) Leukocytosis: Qualifiers: Leukocytosis type: unspecified Qualified Code(s): D72.829 - Elevated white blood cell count, unspecified Code(s): D72.829 - Elevated white blood cell count, unspecified Status: Acute Assessment and Plan: Secondary to diabetic foot versus UTI versus pneumonia. Blood cultures cultures reveal NGTD Urine cultures with no growth WBC improved to 8.0 today. Continue to monitor (7) Chronic anemia: Code(s): D64.9 - Anemia, unspecified Status: Acute Assessment and Plan: Hemoglobin 9-10 range last admission. Currently hemoglobin running 8-9 range here. Hgb 9.7 today, Hct 31.2. Microcytic. No obvious blood loss. Could be related to recent HD. Iron panel revealed low iron and %saturation with normal TIBC and elevated ferritin. Continue to monitor H&H and transfuse prn with threshold Hgb 7.0. Continue Epogen. (8) Metabolic acidosis: Code(s): E87.2 - Acidosis Status: Acute Assessment and Plan: At presentation, metabolic acidosis present based on ABG. Likely related to kidney injury. Receiving 1300 sodium bicarbonate PO bid CO2 elevated at 34 today. Will plan to hold bicarb today. (9) Elevated liver enzymes: Code(s): R74.8 - Abnormal levels of other serum enzymes
[2020-02-23 11:55] LABS: Glucose Point of Care 157 (65-105)
[2020-02-23] MEDS: FUROSEMIDE INJ 100 MG/10 ML VIAL 80 MG IV PUSH (17:59)
[2020-02-23 18:14] LABS: Glucose Point of Care 89 (65-105)
[2020-02-23 20:48] LABS: Glucose Point of Care 145 (65-105)
[2020-02-23] MEDS: PANTOPRAZOLE 40 MG TABLET PO (20:50)
[2020-02-23] MEDS: INSULIN DETEMIR 100 UNITS/ML 40 UNITS SUB-Q (20:50)
[2020-02-24 06:00] VITALS: BP 142/82; PULSE 87; RESP 16; TEMP 36.8; O2SAT 94
[2020-02-24] MEDS: CENTRAL LINE FLUSH 20 ML IV PUSH (06:24)
[2020-02-24 07:46] LABS: Hematocrit 31.6 % (42.0-52.0); Hemoglobin 9.8 g/dL (14.0-18.0); Mean Corpuscular Volume 77.3 fl (80-100); Platelet Count Result 337 k/mm3 (150-375); Red Blood Count 4.09 M/mm3 (4.6-6.20); Red Cell Distribution Width 15.8 % (11.5-14.5); White Blood Count 8.9 K/mm3 (4.5-10.0)
[2020-02-24 07:59] LABS: INR 1.5; Prothrombin Time 17.7 Seconds (11.1-14.7)
[2020-02-24 08:01] LABS: Partial Thromboplastin Time 49.7 SECONDS (22.3-36.8)
[2020-02-24 08:03] LABS: Alanine Aminotransferase 40 U/L (4-50); Albumin Level 3.7 g/dL (3.5-5.1); Alkaline Phosphatase 100 U/L (38-126); Aspartate Amino Transferase 42 U/L (17-59); Bilirubin,Total 0.5 mg/dL (0.2-1.3); Blood Urea Nitrogen 45 mg/dL (9-20); Calcium 8.9 mg/dL (8.4-10.2); Carbon Dioxide 32 mmol/L (22-30); Chloride 94 mmol/L (98-107); Estimated CRCL calculation 9 ml/min; Estimated Glomerular Filt Rate 7; Glucose 62 mg/dL (75-110); Phosphorus 8.2 mg/dL (2.5-4.5); Potassium 3.3 mmol/L (3.4-5.0); Sodium 135 mmol/L (137-145)
[2020-02-24] MEDS: VENLAFAXINE HCL 25 MG TABLET 100 MG PO ×2 (09:22→17:03)
[2020-02-24] MEDS: AMLODIPINE BESYLATE 5 MG TABLET 10 MG PO (09:22)
[2020-02-24 09:23] VITALS: PULSE 87
[2020-02-24] MEDS: METOPROLOL SUCCINATE EXT REL 100 MG TABCR PO ×2 (09:23→20:53)
[2020-02-24] MEDS: FUROSEMIDE INJ 100 MG/10 ML VIAL 80 MG IV PUSH ×2 (09:23→17:07)
[2020-02-24] MEDS: FAMOTIDINE 20 MG TABLET PO (09:23)
[2020-02-24] MEDS: PHYTONADIONE 5 MG TABLET 10 MG PO (09:24)
[2020-02-24] MEDS: POTASSIUM CHLORIDE 20 MEQ TABLET PO (09:28)
--- NOTE | 2020-02-24 10:17 | PM.PNNEP ---
Progress Note: A&P Assessment and Plan (1) VLAD (acute kidney injury): Code(s): N17.9 - Acute kidney failure, unspecified Status: Acute Assessment and Plan: suspect multifactorial ATN based on last and this hospitalization: - acute infection (DM wound + osteomyelitis) - volume depletion (pre-renal urine lytes on last check) - concurrent use of valsartan and metformin - relative hypotension - fevers (and associated insensible losses) renal ultrasound normal received HD on monday due to volume considerations and high creatinine. to get a renal biopsy today that Dr Frazier ordered. HD due to eaton. (2) Chronic kidney disease: Qualifiers: Chronic kidney disease stage: stage 4 (severe) Qualified Code(s): N18.4 - Chronic kidney disease, stage 4 (severe) Code(s): N18.9 - Chronic kidney disease, unspecified Status: Chronic Assessment and Plan: baseline creatinine runs ~ 2.0 - 2.5mg/dl based on outpatient evaluation - this is due to diabetes and hypertension - known to have nephrotic range proteinuria (3) Acute respiratory failure with hypoxia: Code(s): J96.01 - Acute respiratory failure with hypoxia Status: Acute Assessment and Plan: resolved off oxygen (4) Essential (primary) hypertension: Code(s): I10 - Essential (primary) hypertension Status: Acute Assessment and Plan: systolic in the 130s and 140s. keep same meds for now. (5) Wound of left foot: Code(s): S91.302A - Unspecified open wound, left foot, initial encounter Status: Acute Assessment and Plan: remains on antibiotics Podiatry following (6) Other specified anemias: Code(s): D64.89 - Other specified anemias Status: Acute Assessment and Plan: due to VLAD, CKD, and acute illness Epogen with HD hb 9.8 Will continue to follow. Subjective Date/time seen: 02/24/20 10:17 Interval history: patient is feeling better overall. no sob. walking independantly. no cp. Review of Systems Cardiovascular: Cardiovascular: Reports no additional cardiovascular complaints Respiratory: Respiratory: Reports no additional respiratory complaints Gastrointestinal: Gastrointestinal: Reports no additional gastrointestinal complaints Genitourinary: Genitourinary: Reports no additional male genitourinary complaints Exam Narrative: Exam Narrative: WDWN in NAD skin no rash head ncat lungs clear cor reg no rub abd BS+ nontender and soft ext no edema. Objective Data Vital Signs Vital Signs: Vital Signs - 24 hr 02/23/20 14:00 02/23/20 20:10 02/23/20 20:50 Temperature 37.0 C Pulse Rate 84 90 Respiratory Rate 16 Blood Pressure 147/82 H Pulse Oximetry 94 95 02/23/20 21:35 02/24/20 06:00 02/24/20 09:23 Temperature 36.6 C 36.8 C Pulse Rate 90 87 87 Respiratory Rate 18 16 Blood Pressure 138/92 H 142/82 H Pulse Oximetry 98 94 Intake/Output Intake/Output: Intake & Output 02/21/20 02/22/20 02/23/20 02/24/20 23:59 23:59 23:59 23:59 Intake Total 1150 1430 1970 200 Output Total 175 3300 1150 Balance 975 -1870 820 200 Meds/Results Medications: Active Medications Generic Name Dose Route Start Last Admin Trade Name Freq PRN Reason Stop Dose Admin Amlodipine Besylate 10 mg 02/17/20 09:00 02/24/20 09:22 Norvasc PO 10 mg DAILY ALEX Administration Dextrose 12.5 gm 02/17/20 08:06 Dextrose 50% Syringe IV PUSH PRN PRN Hypoglycemia Protocol Famotidine 20 mg 02/17/20 09:00 02/24/20 09:23 Pepcid PO 20 mg DAILY ALEX Administration Fenofibrate 145 mg 02/17/20 09:00 02/19/20 10:00 Tricor PO 145 mg QAM ALEX Administration Furosemide 80 mg 02/17/20 09:00 02/24/20 09:23 Lasix Inj IV PUSH 80 mg BID ALEX Administration Glucagon 1 mg 02/17/20 08:06 Glucagon For Inj IM PRN PRN
[2020-02-24] MEDS: SEVELAMER CARBONATE 800 MG TABLET 1600 MG PO ×2 (12:23→17:03)
[2020-02-24 12:28] LABS: Glucose Point of Care 83 (65-105)
[2020-02-24 12:30] LABS: Glucose Point of Care 92 (65-105)
--- NOTE | 2020-02-24 13:03 | P.PNIM_ITS ---
Progress Note: A&P Assessment and Plan (1) VLAD (acute kidney injury): Code(s): N17.9 - Acute kidney failure, unspecified Status: Acute Assessment and Plan: Cr was 2.4 in November. Cr 4.4 on 02/04/20 but worsened to 11.6 on 02/13/20. Cr worsened to 13.50 on arrival. BUN and creatinine continue to increase between dialysis treatments. Today creatinine is 8.4, BUN 45, increased from yesterday. * Nephrology was consulted and a dialysis catheter was placed by surgery 02/16. * Patient started on dialysis 02/17/2020 with repeat HD on 02/17, 02/19 and 02/21 * He remains on Lasix IV. * Continue hemodialysis per Nephrology instructions; appreciate Nephrology input. * Hopeful renal biopsy tomorrow. Planned for today but INR elevated at 1.5 and given Vitamin K. (2) Elevated INR: Code(s): R79.1 - Abnormal coagulation profile Status: Acute Assessment and Plan: Patient scheduled to undergo renal biopsy today but INR elevated to 1.5. PT prolonged at 17.7 and PTT prolonged at 49.7. He is not on anticoagulants. He did receive 4000 units heparin one time dose on 02/17/20. * Give 10 mg Vitamin K PO * Continue to monitor PT/INR and PTT * Hopeful renal biopsy tomorrow if INR has decreased * Order mixing study to evaluate for coagulopathy (3) Acute respiratory failure with hypoxia: Code(s): J96.01 - Acute respiratory failure with hypoxia Status: Acute Assessment and Plan: Patient presented with shortness of breath and was found to be hypoxic. CXR showed pulmonary edema and he was started on IV Lasix 80 mg; HD started * Hypoxia felt related to acute renal failure and fluid overload. COVID negative * Wean O2 as tolerated. Patient stable on room air today at 98% * Respiratory status is back to baseline (4) Volume overload: Qualifiers: Hypervolemia type: other Qualified Code(s): E87.79 - Other fluid overload Code(s): E87.70 - Fluid overload, unspecified Status: Acute Assessment and Plan: Secondary to ongoing renal failure. Patient had dialysis catheter placement 02/17/2020 and had dialysis 02/16, 02/17, 02/19, and 02/22/20. * Wean O2 as tolerated, stable on room air today * Continue to monitor I&O * Continue IV Lasix * Urine output has been adequate (5) Fever: Code(s): R50.9 - Fever, unspecified Status: Acute Assessment and Plan: Patient previously febrile with T-max 101.6? on 02/18/2020. He has been afebrile >72 hours * Could be from atelectasis vs recent left toe amputation vs pneumonia * CXR concerning for pulm edema; COVID ruled out. (6) Wound of left foot: Code(s): S91.302A - Unspecified open wound, left foot, initial encounter Status: Acute Assessment and Plan: Patient with a history of osteomyelitis status post left great toe amputation on 02/07/20. * Was discharged home on 02/13/2020 on long-term IV antibiotics from Zosyn. * Wound care following * Dr. Garcia did evaluate the patient and felt that his foot is not infected at this time; He will continue monitoring as an outpatient and recommends IV antibiotics. Wound VAC resumed today. * Continue IV Zosyn (7) Leukocytosis: Qualifiers: Leukocytosis type: unspecified Qualified Code(s): D72.829 - Elevated white blood cell count, unspecified Code(s): D72.829 - Elevated white blood cell count, unspecified Status: Acute Assessment and Plan: Secondary to diabetic foot versus UTI versus pneumonia. WBC 8.9 today
--- NOTE | 2020-02-24 13:03 | PM.IMPN ---
Progress Note: A&P Assessment and Plan (1) VLAD (acute kidney injury): Code(s): N17.9 - Acute kidney failure, unspecified Status: Acute Assessment and Plan: Cr was 2.4 in November. Cr 4.4 on 02/04/20 but worsened to 11.6 on 02/13/20. Cr worsened to 13.50 on arrival. BUN and creatinine continue to increase between dialysis treatments. Today creatinine is 8.4, BUN 45, increased from yesterday. Nephrology was consulted and a dialysis catheter was placed by surgery 02/16. Patient started on dialysis 02/17/2020 with repeat HD on 02/17, 02/19 and 02/21 He remains on Lasix IV. Continue hemodialysis per Nephrology instructions; appreciate Nephrology input. Hopeful renal biopsy tomorrow. Planned for today but INR elevated at 1.5 and given Vitamin K. (2) Elevated INR: Code(s): R79.1 - Abnormal coagulation profile Status: Acute Assessment and Plan: Patient scheduled to undergo renal biopsy today but INR elevated to 1.5. PT prolonged at 17.7 and PTT prolonged at 49.7. He is not on anticoagulants. He did receive 4000 units heparin one time dose on 02/17/20. Give 10 mg Vitamin K PO Continue to monitor PT/INR and PTT Hopeful renal biopsy tomorrow if INR has decreased Order mixing study to evaluate for coagulopathy (3) Acute respiratory failure with hypoxia: Code(s): J96.01 - Acute respiratory failure with hypoxia Status: Acute Assessment and Plan: Patient presented with shortness of breath and was found to be hypoxic. CXR showed pulmonary edema and he was started on IV Lasix 80 mg; HD started Hypoxia felt related to acute renal failure and fluid overload. COVID negative Wean O2 as tolerated. Patient stable on room air today at 98% Respiratory status is back to baseline (4) Volume overload: Qualifiers: Hypervolemia type: other Qualified Code(s): E87.79 - Other fluid overload Code(s): E87.70 - Fluid overload, unspecified Status: Acute Assessment and Plan: Secondary to ongoing renal failure. Patient had dialysis catheter placement 02/17/2020 and had dialysis 02/16, 02/17, 02/19, and 02/22/20. Wean O2 as tolerated, stable on room air today Continue to monitor I&O Continue IV Lasix Urine output has been adequate (5) Fever: Code(s): R50.9 - Fever, unspecified Status: Acute Assessment and Plan: Patient previously febrile with T-max 101.6? on 02/18/2020. He has been afebrile >72 hours Could be from atelectasis vs recent left toe amputation vs pneumonia CXR concerning for pulm edema; COVID ruled out. (6) Wound of left foot: Code(s): S91.302A - Unspecified open wound, left foot, initial encounter Status: Acute Assessment and Plan: Patient with a history of osteomyelitis status post left great toe amputation on 02/07/20. Was discharged home on 02/13/2020 on long-term IV antibiotics from Zosyn. Wound care following Dr. Garcia did evaluate the patient and felt that his foot is not infected at this time; He will continue monitoring as an outpatient and recommends IV antibiotics. Wound VAC resumed today. Continue IV Zosyn (7) Leukocytosis: Qualifiers: Leukocytosis type: unspecified Qualified Code(s): D72.829 - Elevated white blood cell count, unspecified Code(s): D72.829 - Elevated white blood cell count, unspecified Status: Acute Assessment and Plan: Secondary to diabetic foot versus UTI versus pneumonia. WBC 8.9 today Blood cultures cultures reveal NGTD Urine cultures with no growth. Continue to monitor (8) Chronic anemia: Code(s): D64.9 - Anemia, unspecified Status: Acute Assessment and Plan: Hemoglobin 9-10 range last admission. Currently hemoglobin running 8-9 range here. Hgb 9.8 today, Hct 31.6. Microcytic. No obvious blood loss. Could be related to recent HD. Iron panel revealed low iron and %saturation with normal
[2020-02-24] MEDS: CENTRAL LINE FLUSH 10 ML IV PUSH ×3 (13:59→23:15)
[2020-02-24 14:00] VITALS: BP 136/98; PULSE 83; RESP 16; TEMP 36.6; O2SAT 94
[2020-02-24 17:10] LABS: Glucose Point of Care 91 (65-105)
[2020-02-24 20:29] LABS: Glucose Point of Care 133 (65-105)
[2020-02-24 20:53] VITALS: PULSE 80
[2020-02-24] MEDS: PANTOPRAZOLE 40 MG TABLET PO (20:54)
[2020-02-24] MEDS: INSULIN DETEMIR 100 UNITS/ML 40 UNITS SUB-Q (20:54)
[2020-02-24] MEDS: MELATONIN 5 MG TABLET PO (20:54)
[2020-02-24 22:00] VITALS: BP 150/94; PULSE 91; RESP 22; TEMP 36.6; O2SAT 94
[2020-02-25] VITALS (20 sets, daily range): BP systolic 75–170; BP diastolic 37–98; PULSE 74–97; RESP 16–20; TEMP 36–37.1; O2SAT 92–98
[2020-02-25 05:37] LABS: Basophils Percent Auto 0.5 % (0.2-1.2); Eosinophils Absolute Auto 0.2 K/mm3 (0-0.3); Hematocrit 31.9 % (42.0-52.0); Hemoglobin 9.7 g/dL (14.0-18.0); Immature Granulocyte Absolute 0.02 K/mm3 (0.00-0.031); Immature Granulocyte Percent A 0.3 % (0-0.5); Lymphocytes Absolute Auto 1.59 K/mm3 (0.9-3.2); Lymphocytes Percent Auto 20.6 % (18.3-44.2); Mean Corpuscular HGB Conc 30.4 g/dl (32-36); Mean Corpuscular Hemoglobin 23.4 pg (26-34); Mean Corpuscular Volume 76.9 fl (80-100); Mean Platelet Volume 9.3 fl (7.4-10.4); Monocytes Percent Auto 12.5 % (2.6-8.5); Neutrophils Absolute Auto 4.9 K/mm3 (1.3-6.7); Neutrophils Percent Auto 63.1 % (45.5-73.1); Platelet Count Result 369 k/mm3 (150-375); Red Blood Count 4.15 M/mm3 (4.6-6.20); Red Cell Distribution Width 15.9 % (11.5-14.5); White Blood Count 7.7 K/mm3 (4.5-10.0)
[2020-02-25 05:48] LABS: INR 1.3; Prothrombin Time 16.2 Seconds (11.1-14.7)
[2020-02-25 05:49] LABS: Alanine Aminotransferase 34 U/L (4-50); Albumin Level 3.8 g/dL (3.5-5.1); Alkaline Phosphatase 102 U/L (38-126); Aspartate Amino Transferase 56 U/L (17-59); Bilirubin,Total 0.6 mg/dL (0.2-1.3); Blood Urea Nitrogen 54 mg/dL (9-20); Calcium 9.1 mg/dL (8.4-10.2); Carbon Dioxide 28 mmol/L (22-30); Chloride 95 mmol/L (98-107); Estimated CRCL calculation 8 ml/min; Estimated Glomerular Filt Rate 6; Glucose 81 mg/dL (75-110); Magnesium 2.4 mg/dL (1.6-2.3); Phosphorus 9.3 mg/dL (2.5-4.5); Potassium 3.6 mmol/L (3.4-5.0); Sodium 136 mmol/L (137-145)
[2020-02-25 05:50] LABS: Partial Thromboplastin Time 46.3 SECONDS (22.3-36.8)
[2020-02-25] MEDS: CENTRAL LINE FLUSH 10 ML IV PUSH ×3 (06:28→20:42)
[2020-02-25] MEDS: CENTRAL LINE FLUSH 20 ML IV PUSH (06:28)
[2020-02-25 08:41] LABS: Glucose Point of Care 62 (65-105)
[2020-02-25] MEDS: AMLODIPINE BESYLATE 5 MG TABLET 10 MG PO (08:58)
[2020-02-25] MEDS: METOPROLOL SUCCINATE EXT REL 100 MG TABCR PO ×2 (08:59→20:41)
[2020-02-25] MEDS: FUROSEMIDE INJ 100 MG/10 ML VIAL 80 MG IV PUSH (09:00)
[2020-02-25] MEDS: DEXTROSE 50% 25 GM/50 ML SYRINGE IV PUSH ×2 (09:00→11:30)
--- NOTE | 2020-02-25 09:06 | PC.NURSE ---
CHANDRAKANT GONZALES NOTIFIED OF GLUCOSE 62 THIS AM AND 1/2 AMP D50 GIVEN PER PROTOCAL DUE TO PT NPO.
[2020-02-25 09:22] LABS: Glucose Point of Care 120 (65-105)
--- NOTE | 2020-02-25 09:28 | PM.PNNEP ---
Progress Note: A&P Assessment and Plan (1) VLAD (acute kidney injury): Code(s): N17.9 - Acute kidney failure, unspecified Status: Acute Assessment and Plan: suspect multifactorial ATN based on last and this hospitalization: - acute infection (DM wound + osteomyelitis) - volume depletion (pre-renal urine lytes on last check) - concurrent use of valsartan and metformin - relative hypotension - fevers (and associated insensible losses) renal ultrasound normal he will get a renal biopsy today. He is getting dialysis later today. Will use no heparin. (2) Chronic kidney disease: Qualifiers: Chronic kidney disease stage: stage 4 (severe) Qualified Code(s): N18.4 - Chronic kidney disease, stage 4 (severe) Code(s): N18.9 - Chronic kidney disease, unspecified Status: Chronic Assessment and Plan: baseline creatinine runs ~ 2.0 - 2.5mg/dl based on outpatient evaluation - this is due to diabetes and hypertension - known to have nephrotic range proteinuria (3) Acute respiratory failure with hypoxia: Code(s): J96.01 - Acute respiratory failure with hypoxia Status: Acute Assessment and Plan: resolved off oxygen (4) Essential (primary) hypertension: Code(s): I10 - Essential (primary) hypertension Status: Acute Assessment and Plan: systolic in the 130s and 140s. This morning it is 160. Will give some clonidine. keep same meds for now. (5) Wound of left foot: Code(s): S91.302A - Unspecified open wound, left foot, initial encounter Status: Acute Assessment and Plan: remains on antibiotics Podiatry following (6) Other specified anemias: Code(s): D64.89 - Other specified anemias Status: Acute Assessment and Plan: due to VLAD, CKD, and acute illness Epogen with HD hb 9.8 Subjective Date/time seen: 02/25/20 09:28 Interval history: patient is feeling Okay. Due for his kidney biopsy today no sob. walking independently no cp. Review of Systems Cardiovascular: Cardiovascular: Reports no additional cardiovascular complaints Respiratory: Respiratory: Reports no additional respiratory complaints Gastrointestinal: Gastrointestinal: Reports no additional gastrointestinal complaints Genitourinary: Genitourinary: Reports no additional male genitourinary complaints Exam Narrative: Exam Narrative: WDWN in NAD skin no rash or subcu nodules head ncat lungs clear cor reg no rub or gallop abd BS+ nontender and soft ext no edema. Objective Data Vital Signs Vital Signs: Vital Signs - 24 hr 02/24/20 14:00 02/24/20 20:53 02/24/20 22:00 Temperature 36.6 C 36.6 C Pulse Rate 83 80 91 Respiratory Rate 16 22 H Blood Pressure 136/98 H 150/94 H Pulse Oximetry 94 94 02/25/20 06:00 02/25/20 08:59 Temperature 36.7 C Pulse Rate 82 80 Respiratory Rate 20 Blood Pressure 164/96 H Pulse Oximetry 96 Intake/Output Intake/Output: Intake & Output 02/22/20 02/23/20 02/24/20 02/25/20 23:59 23:59 23:59 23:59 Intake Total 1430 1970 1170 170 Output Total 3300 1150 2 300 Balance -6063 977 4956 -130 Meds/Results Medications: Active Medications Generic Name Dose Route Start Last Admin Trade Name Freq PRN Reason Stop Dose Admin Amlodipine Besylate 10 mg 02/17/20 09:00 02/25/20 08:58 Norvasc PO 10 mg DAILY ALEX Administration Dextrose 12.5 gm 02/17/20 08:06 02/25/20 09:00 Dextrose 50% Syringe IV PUSH 12.5 gm PRN PRN Administration Hypoglycemia Protocol Epoetin Johnnie 10,000 units 02/25/20 09:05 Epogen IV PUSH TUTHSA ALEX Famotidine 20 mg 02/17/20 09:00 02/24/20 09:23 Pepcid PO 20 mg DAILY ALEX Administration Fenofibrate 145 mg 02/17/20 09:00 02/19/20 10:00 Tricor PO 145 mg QAM ALEX Administration Furosemide 80 mg 02/17/20 09:00 02/25/20 09:00
--- NOTE | 2020-02-25 10:10 | PM.IMPN ---
Progress Note: A&P Assessment and Plan (1) VLAD (acute kidney injury): Code(s): N17.9 - Acute kidney failure, unspecified Status: Acute Assessment and Plan: Cr was 2.4 in November. Cr 4.4 on 02/04/20 but worsened to 11.6 on 02/13/20. Cr worsened to 13.50 on arrival. BUN and creatinine continue to increase between dialysis treatments. Creatinine today is is 9.7 and BUN is 54. Nephrology was consulted and a dialysis catheter was placed by surgery 02/16. Dialysis was initiated 02/17/2020 Continue hemodialysis per Nephrology instructions; appreciate Nephrology input. Outpatient HD has been arranged by care coordination. Plan for renal biopsy today (2) Elevated INR: Code(s): R79.1 - Abnormal coagulation profile Status: Acute Assessment and Plan: The patient was scheduled to undergo renal biopsy 02/24/20 but INR was 1.5 and PT 17.7. He is not on anticoagulants. He received 4000 units heparin one time dose on 02/17/20. He was given 10 mg vitamin K PO yesterday and INR is 1.3 today and PT 16.2. Plan for renal biopsy today. Mixing study is pending for coagulopathy evaluation. Continue to monitor PT/INR and PTT Await results of mixing study (3) Acute respiratory failure with hypoxia: Code(s): J96.01 - Acute respiratory failure with hypoxia Status: Resolved Assessment and Plan: Resolved. Patient presented with shortness of breath and was found to be hypoxic. CXR showed pulmonary edema and he was started on IV Lasix 80 mg. HD was initiated. This was likely due to acute renal failure and fluid overload. He is stable on room air and denies SOB. Respiratory status is back to baseline (4) Volume overload: Qualifiers: Hypervolemia type: other Qualified Code(s): E87.79 - Other fluid overload Code(s): E87.70 - Fluid overload, unspecified Status: Resolved Assessment and Plan: Secondary to ongoing renal failure. Dialysis was initiated 02/17/20 and he continues on maintenance HD. Plan to discontinue IV lasix as the pt is on HD and appears euvolemic Continue to monitor I&O Urine output has been adequate (5) Fever: Code(s): R50.9 - Fever, unspecified Status: Resolved Assessment and Plan: Patient previously febrile with T-max 101.6? on 02/18/2020. He is now afebrile. Could be from atelectasis vs recent left toe amputation vs pneumonia CXR concerning for pulm edema, likely due to VLAD. COVID ruled out. (6) Wound of left foot: Code(s): S91.302A - Unspecified open wound, left foot, initial encounter Status: Chronic Assessment and Plan: Patient with a history of osteomyelitis status post left foot partial first ray amputation on 02/07/20. Was discharged home on 02/13/2020 on long-term IV antibiotics from Zosyn. Wound care following Dr. Garcia did evaluate the patient and felt that his foot is not infected at this time; He will continue monitoring as an outpatient and recommends IV antibiotics and continued wound vac therapy Continue IV Zosyn (7) Leukocytosis: Qualifiers: Leukocytosis type: unspecified Qualified Code(s): D72.829 - Elevated white blood cell count, unspecified Code(s): D72.829 - Elevated white blood cell count, unspecified Status: Resolved Assessment and Plan: Secondary to diabetic foot versus UTI versus pneumonia. WBC 8.9 today Blood cultures cultures reveal NGTD Urine cultures with no growth Continue to monitor (8) Chronic anemia: Code(s): D64.9 - Anemia, unspecified Status: Acute Assessment and Plan: Hemoglobin 9-10 range last admission. Currently hemoglobin running 8-9 range here. Hgb 9.8 today, Hct 31.6. Microcytic. No obvious blood loss. Could be related to recent HD. Iron panel revealed low iron and %saturation with normal TIBC and elevated ferritin. Continue to monitor H&H and transfuse prn w
[2020-02-25 11:25] LABS: Glucose Point of Care 69 (65-105)
[2020-02-25] MEDS: ATORVASTATIN 20 MG TABLET PO (11:43)
[2020-02-25] MEDS: CLONIDINE HCL 0.1 MG TABLET PO (11:44)
[2020-02-25 14:06] LABS: Glucose Point of Care 93 (65-105)
[2020-02-25] MEDS: VENLAFAXINE HCL 25 MG TABLET 100 MG PO ×2 (15:57→20:39)
[2020-02-25] MEDS: FAMOTIDINE 20 MG TABLET PO (15:57)
--- NOTE | 2020-02-25 18:34 | WPDANESEPP ---
Anes - Eval Pre Procedure Procedure: tunneled dialysis catheter Date/Time: 02/25/20 18:34 Surgeon: ozzie Pre Op Diagnosis: Acute/Chronic Renal Failure Patient Data Age: 54 Gender: M Height: 1.73 m Weight: 93.5 kg Last Vital Signs Temp 37.1 C 02/25/20 16:30 Pulse 75 02/25/20 18:30 Resp 18 02/25/20 16:30 BP 153/86 H 02/25/20 18:30 Pulse Ox 96 02/25/20 14:00 Allergies Allergy/AdvReac Type Severity Reaction Status Date / Time No Known Allergies Allergy Verified 02/04/20 12:40 Home Medications Medication Instructions Recorded Confirmed Type amlodipine 10 mg PO DAILY 08/30/19 02/17/20 History gemfibrozil 600 mg PO DAILY 08/30/19 02/17/20 History pantoprazole 40 mg PO HS 08/30/19 02/17/20 History ranitidine HCl 150 mg PO DAILY 08/30/19 02/17/20 History venlafaxine 100 mg PO BID 08/30/19 02/17/20 History fenofibrate micronized 134 mg 134 mg PO DAILY 09/11/19 02/17/20 History capsule gabapentin 300 mg capsule 300 mg PO TID 09/11/19 02/17/20 History pen needle, diabetic 31 gauge x #30 each 09/11/19 02/17/20 Rx 5/16 sildenafil 100 mg tablet 100 mg PO DAILY 09/11/19 02/17/20 History alogliptin 25 mg tablet 12.5 mg PO DAILY 09/16/19 02/17/20 History metoprolol succinate 100 mg 100 mg PO DAILY 11/12/19 02/17/20 History capsule sprinkle, ext. release 24 hr insulin detemir U-100 100 unit/mL 44 unit SUB-Q BID #30 ml 01/01/20 02/17/20 Rx subcutaneous solution insulin syringe-needle U-100 0.5 #200 each 01/01/20 02/17/20 Rx mL 29 gauge x 1/2 metoprolol succinate [Toprol XL] 100 mg PO Q12HR #60 tablet 02/13/20 02/17/20 Rx piperacillin-tazobactam 2.25 g IV Q6HR 33 Days #132 ea 02/13/20 02/17/20 Rx sevelamer carbonate [Renvela] 1,600 mg PO TIDWM #100 tablet 02/13/20 02/17/20 Rx pravastatin 80 mg tablet 80 mg PO DAILY #30 tablet 02/14/20 02/17/20 Rx Laboratory Tests 02/24/20 02/25/20 02/25/20 20:25 05:16 05:16 WBC 7.7 K/mm3 K/mm3 (4.5-10.0) RBC 4.15 M/mm3 L M/mm3 (4.6-6.20) Hgb 9.7 g/dL L g/dL (14.0-18.0) Hct 31.9 % L % (42.0-52.0) MCV 76.9 fl L fl (80-100) MCH 23.4 pg L pg (26-34) MCHC 30.4 g/dl L g/dl (32-36) RDW 15.9 % H % (11.5-14.5) Plt Count 369 k/mm3 k/mm3 (150-375) MPV 9.3 fl fl (7.4-10.4) Immature Gran % (Auto) 0.3 % % (0-0.5) Neut % (Auto) 63.1 % % (45.5-73.1) Lymph % (Auto) 20.6 % % (18.3-44.2) Bailey % (Auto) 12.5 % H % (2.6-8.5) Eos % (Auto) 3.0 % % (0-4.4) Baso % (Auto) 0.5 % % (0.2-1.2) Lymph # (Auto) 1.59 K/mm3 K/mm3 (0.9-3.2) Bailey # (Auto) 1.0 K/mm3 H K/mm3 (0.1-0.6) Eos # (Auto) 0.2 K/mm3 K/mm3 (0-0.3) Baso # (Auto) 0.0 K/mm3 K/mm3 (0.0-0.1) Abs Immat Gran (auto) 0.02 K/mm3 K/mm3 (0.00-0.031) Absolute Neuts (auto) 4.9 K/mm3 K/mm3 (1.3-6.7) Absolute Nucleated RBC 0.0 K/mm3 K/mm3 (0.0-0.012) Nucleated RBC % 0.0 % % (0.0-0.2) PT 16.2 Seconds H Seconds (11.1-14.7) INR 1.3 APTT 46.3 SECONDS H SECONDS (22.3-36.8) Sodium Potassium Chloride Carbon Dioxide BUN Creatinine Estim Creat Clear Calc Estimated GFR Glucose POC Capillary Glucose 133 mg/dl H mg/dl (65-105) Calcium Phosphorus Magnesium Total Bilirubin AST ALT Alkaline Phosphatase Total Protein Albumin 02/25/20 02/25/20 02/25/20 05:16 08:27 09:19 WBC RBC Hgb Hct MCV MCH MCHC RDW Plt Count MPV Immature Gran % (Auto) Neut % (Auto)
[2020-02-25] MEDS: PANTOPRAZOLE 40 MG TABLET PO (20:41)
[2020-02-25] MEDS: INSULIN DETEMIR 100 UNITS/ML 40 UNITS SUB-Q (20:45)
[2020-02-25 22:27] LABS: Glucose Point of Care 79 (65-105)
[2020-02-26] VITALS (9 sets, daily range): BP systolic 89–164; BP diastolic 62–91; PULSE 73–98; RESP 12–20; TEMP 36.1–36.5; O2SAT 84–100
[2020-02-26] MEDS: CENTRAL LINE FLUSH 10 ML IV PUSH ×2 (06:06→14:49)
[2020-02-26 06:11] LABS: Hematocrit 31.6 % (42.0-52.0); Hemoglobin 9.7 g/dL (14.0-18.0); Mean Corpuscular HGB Conc 30.7 g/dl (32-36); Mean Corpuscular Volume 78.2 fl (80-100); Mean Platelet Volume 9.6 fl (7.4-10.4); Platelet Count Result 418 k/mm3 (150-375); Red Blood Count 4.04 M/mm3 (4.6-6.20); Red Cell Distribution Width 15.9 % (11.5-14.5); White Blood Count 5.8 K/mm3 (4.5-10.0)
[2020-02-26 06:15] LABS: INR 1.4; Prothrombin Time 16.3 Seconds (11.1-14.7)
[2020-02-26 06:16] LABS: Partial Thromboplastin Time 41.7 SECONDS (22.3-36.8)
[2020-02-26 06:17] LABS: Albumin Level 3.8 g/dL (3.5-5.1); Blood Urea Nitrogen 34 mg/dL (9-20); Calcium 8.9 mg/dL (8.4-10.2); Carbon Dioxide 31 mmol/L (22-30); Chloride 97 mmol/L (98-107); Estimated CRCL calculation 11 ml/min; Estimated Glomerular Filt Rate 8; Glucose 99 mg/dL (75-110); Magnesium 2.1 mg/dL (1.6-2.3); Phosphorus 7.2 mg/dL (2.5-4.5); Potassium 3.6 mmol/L (3.4-5.0); Sodium 136 mmol/L (137-145)
[2020-02-26 07:49] LABS: Glucose Point of Care 93 (65-105)
[2020-02-26] MEDS: METOPROLOL SUCCINATE EXT REL 100 MG TABCR PO (08:15)
--- NOTE | 2020-02-26 08:54 | P.PNAN_ITS ---
Anes - Eval Final PreProcedure Day of Procedure 02/26/20 08:54 Patient weight: obese Heart: regular rate and rhythm Lungs: clear to auscultation and normal air movement Airway: Mallampati scale class II Neurological: alert and oriented Last oral intake: >/= 8 hours ASA classification: IV Emergent: no Anesthetic plan: proceed Anesthesia type and monitoring: general GIVS Informed Consent: The patient's anesthetic plan and its attendant risks and be nefits were discussed with the patient/family/POA. Questions were solicited and answers provided to the satisfaction of the patient/family/POA.
--- NOTE | 2020-02-26 09:00 | PC.NURSE ---
To OR per bed, IV intact.
[2020-02-26] MEDS: SODIUM CHLORIDE 0.9% IV 500 ML 30 ML IV CONT (09:26)
--- NOTE | 2020-02-26 10:00 | WPDHPUPDATE1 ---
History and Physical Update Update Date/Time: 02/26/20 10:00 History and Physical has been reviewed, including an updated exam of the patient. Patient had temporary dialysis catheter placed on admission, now needs a tunneled dialysis catheter to be able to go home. Will proceed with insertion of tunneled dialysis catheter. Risks, benefits, and alternatives have been discussed and questions answered. Patient agrees to proceed with procedure.
[2020-02-26] MEDS: LIDO 1%/EPINEPHRINE 1:100,000 20 ML VIAL INFILTRATE (10:40)
[2020-02-26] MEDS: HEPARIN SODIUM 5,000 UNITS/ML VIAL 5000 UNITS IRRIGATION (10:41)
[2020-02-26] MEDS: HEPARIN SODIUM, PORCINE 10,000 UNITS/10 ML VIAL 10 UNITS IV PUSH (10:43)
--- NOTE | 2020-02-26 11:00 | PCNFU ---
Nutrition Follow-Up Complete: Increased nutrition R/T wound vac on left foot as evidence by daily kcals needs of 2500 and limited protein needs of 59-79g/day due to GFR 4 Goal: PO intake of 50% or greater of meals and supplements to aid in healing of left foot wound Progressing towards goal. We will continue current goal. Pt current nutrition is NPO. Nutrition recommendation: DBCC/Renal Dialysis Diet. Last recorded weight is 88.4 kg.stable Bowel Motility:+BM reported /4 Labs Reviewed:BUN 34,Cr 7.4,PO4 7.2,Na 136 Meds Noted:Toprol, Zosyn, NS 500 mls at 30 ml/hr Additional Notes: Spoke with nursing today for nutrition follow up due to COVID 19 precautions. Patient remains NPO for tunneled catheter today. Patient had renal biopsy yesterday. Oral intakes have been fair 60-75% of meals. Agree with diet orders at this time. Monitoring: PO intake, wt, skin, labs every five days
--- NOTE | 2020-02-26 11:02 | P.OP_ITS ---
Procedure Note - Detailed Date of procedure: 02/26/20 Pre-op diagnosis: Acute/Chronic Renal Failure Post-op diagnosis: same Procedure performed: Right internal jugular Tunneled Dialysis Catheter placement using ultrasound and fluoroscopic guidance Description of procedure: * Procedure as well as risks, benefits, and alternatives were discussed with patient. Written consent was obtained and placed in chart prior to procedure. Patient was brought back to surgical suite. Placed supine on operating table. Time-out was done confirm patient procedure. IV sedation was then administered by the Anesthesia Department. The right chest and neck area was prepped and draped in sterile fashion using chlorhexidine prep. Patient was placed in Trendelenburg position. SonoSite ultrasound was used to identify the right internal jugular vein. It was visualized as a compressible vessel just lateral to the carotid artery. 1% lidocaine with epinephrine was infiltrated directly over the vessel under ultrasound guidance. An 18 gauge introducer needle was then advanced under ultrasound guidance directly into the right internal jugular vein. Dark nonpulsatile blood was aspirated. A 0.035 in guidewire was then advanced through the needle under fluoroscopic guidance. The guidewire was visualized advancing all the way down into the superior vena cava. 1% lidocaine with epinephrine was then infiltrated on the right anterior chest and along the tract up to the guidewire insertion site. A 5 mm incision was made with a 15 blade scalpel. A small madisyn incision was then also made at the insertion site at the neck. The tunneler was then advanced from the chest incision up to the neck incision and the catheter tubing was brought up through this tract. The dilator and sheath were then advanced over the guidewire under fluoroscopic visualization. The dilator and guidewire were then removed leaving the sheath in place. The catheter tubing was then advanced through the sheath under fluoroscopic guidance. The sheath was unsnapped and carefully peeled away. The catheter tubing was released underneath the neck incision. Fluoroscopy was used to confirm proper placement of the catheter tubing and no kinks along its path. The catheter was then hep-locked with Hep-Lock solution. The skin of the incisions was then approximated using 4-0 Monocryl subcuticular suture. Exofin glue was then applied at the neck incision and 2x2 gauze and Tegaderm drassing applied at the chest. The patient was then awakened from anesthesia and transferred to recovery. Implants: 24 cm Duraflow2 Dialysis Catheter Anesthesia: MAC and local (1% lidocaine with epinephrine) Surgeon: Raul Arellano DO Estimated blood loss (mL): 5 Complications: No immediate complications Condition: stable Disposition: floor Findings: * SonoSite ultrasound guidance was used to identify the right internal jugular vein. This was visualized as a patent compressible vessel just lateral to the carotid artery. An 18 gauge introducer needle was advanced under ultrasound guidance directly into the lumen of the right internal jugular vein. Fluoroscopy was then used to guide advancement of the guidewire. The dilators and sheath were then also advanced under fluoroscopic guidance. The final fluoroscopic images demonstrated the catheter tip at the distal SVC and no kinks along its path.
[2020-02-26 11:14] LABS: Glucose Point of Care 106 (65-105)
--- NOTE | 2020-02-26 12:10 | PC.NURSE ---
Returned from OR per bed.
[2020-02-26] MEDS: SEVELAMER CARBONATE 800 MG TABLET 1600 MG PO (12:49)
[2020-02-26] MEDS: ATORVASTATIN 20 MG TABLET PO (12:49)
[2020-02-26] MEDS: AMLODIPINE BESYLATE 5 MG TABLET 10 MG PO (12:49)
[2020-02-26] MEDS: FAMOTIDINE 10 MG TABLET PO (12:49)
--- NOTE | 2020-02-26 15:39 | PM.DS ---
DS: Diagnosis Admitting Diagnosis Admitting Diagnosis: Acute respiratory failure with hypoxia Discharge Diagnosis (1) Acute kidney failure: Qualifiers: Acute renal failure type: unspecified Qualified Code(s): N17.9 - Acute kidney failure, unspecified Code(s): N17.9 - Acute kidney failure, unspecified Status: Acute Assessment and Plan: Cr was 2.4 in November. Cr 4.4 on 02/04/20 but worsened to 11.6 on 02/13/20. Cr was 13.50 at presentation to the ED. Acute kidney failure was suspected to be multifactorial ATN due to acute infection, volume depletion, concurrent use of metformin and valsartan, relative hypotension, and fever. Renal US was normal. He started hemodialysis 02/17/20. He underwent renal biopsy 02/25/20. He will continue outpatient hemodialysis. (2) Elevated INR: Code(s): R79.1 - Abnormal coagulation profile Status: Acute Assessment and Plan: INR was elevated at 1.5 and PT 17.7. He was given vitamin K in preparation for renal biopsy. I suspect that his temporary HD catheter was flushed with heparin follwoing dialysis which may have caused this. Mixing study was pending at the time of discharge. Results of mixing study revealed immediate acting inhibitor with possibilities including specific factor inhibitors, Lupus anticoagulant, Fibrino(marlo)lysis, heparin contamination, or thrombin inhibitors. He will need to follow-up with his PCP. (3) Acute respiratory failure with hypoxia: Code(s): J96.01 - Acute respiratory failure with hypoxia Status: Resolved Assessment and Plan: Resolved. Patient presented with shortness of breath and was found to be hypoxic. CXR showed pulmonary edema and he was started on IV Lasix 80 mg. HD was initiated. This was likely due to acute renal failure and fluid overload. (4) Volume overload: Qualifiers: Hypervolemia type: other Qualified Code(s): E87.79 - Other fluid overload Code(s): E87.70 - Fluid overload, unspecified Status: Resolved Assessment and Plan: Secondary to ongoing renal failure. Dialysis was initiated 02/17/20 and he continues on maintenance HD. (5) Wound of left foot: Code(s): S91.302A - Unspecified open wound, left foot, initial encounter Status: Chronic Assessment and Plan: He had a history of osteomyelitis status post left foot partial first ray amputation on 02/07/20. He will continue long-term IV zosyn per ID until 03/17/20. He was discharge home with home infusions. Dr. Garcia evaluated the patient and did not feel that there was evidence of infection. He will follow-up with Dr. Garcia outpatient and will continue wound vac therapy with wound vac changes at home. (6) Chronic anemia: Code(s): D64.9 - Anemia, unspecified Status: Acute Assessment and Plan: Anemia was microcytic without obvious blood loss. Iron studies suggested anemia of chronic disease. He received epogen per nephrology. H&H were stable. (7) Metabolic acidosis: Code(s): E87.2 - Acidosis Status: Resolved Assessment and Plan: Resolved. Likely due to acute renal failure. (8) Elevated liver enzymes: Code(s): R74.8 - Abnormal levels of other serum enzymes Status: Resolved Assessment and Plan: LFT elevation resolved. This was likely due to hepatic congestion from fluid overload. HepBs Ag and Ab negative. (9) Hyperkalemia: Code(s): E87.5 - Hyperkalemia Status: Resolved (10) Diabetes mellitus: Qualifiers: Diabetes mellitus complication status: without complication Diabetes mellitus [facility] insulin use: with superintendent terminal use Diabetes mellitus type: type 2 Qualified Code(s): E11.9 - Type 2 diabetes mellitus without complications; Z79.4 - FPC (current) use of insulin Code(s): E11.9 - Type 2 diabetes mellitus without complications Status: Chronic
[2020-02-27 10:14] LABS: Reference Lab Test Name Mixing Study
--- NOTE | 2020-02-28 08:46 | PC.NURSE ---
Ref lab, Mixing study results given to Doris Chamorro PA-C.
== END 2020-02-26 17:49 | disposition home health service (06) | DRG 673 ==
LOC: ANHED 22:05 → ANHIMU 23:38 → ANHICU 02-19 06:37 → ANH2MED 02-22 07:35 → ANHICU 02-28 09:05 → ANHIMU 02-28 09:05
PROVIDERS: Internal Medicine; Internal Medicine Nephrology; Physician Assistant; Surgery; Admitting Provider Family Medicine; Emergency Provider Emergency Medicine; PCP Family Medicine; Visit Provider Physician Assistant
PROC: 0JH63XZ Insertion of Tunneled Vascular Access Device into Chest Subcutaneous Tissue and Fascia, Percutaneous Approach (ICD-10-PCS; CPT 36908; principal; 2020-02-26 10:00)
DX: N17.9 Acute kidney failure, unspecified (principal); J96.01 Acute respiratory failure with hypoxia; E87.2 Acidosis; N18.4 Chronic kidney disease, stage 4 (severe); E87.79 Other fluid overload; E11.22 Type 2 diabetes mellitus with diabetic chronic kidney disease; E11.311 Type 2 diabetes mellitus with unspecified diabetic retinopathy with macular edema; I12.9 Hypertensive chronic kidney disease with stage 1 through stage 4 chronic kidney disease, or unspecified chronic kidney disease; D63.1 Anemia in chronic kidney disease; D64.89 Other specified anemias; E11.51 Type 2 diabetes mellitus with diabetic peripheral angiopathy without gangrene; E11.40 Type 2 diabetes mellitus with diabetic neuropathy, unspecified; R79.1 Abnormal coagulation profile; R05 Cough; R50.9 Fever, unspecified; R06.02 Shortness of breath; Z20.828 Contact with and (suspected) exposure to other viral communicable diseases; D72.829 Elevated white blood cell count, unspecified; R74.8 Abnormal levels of other serum enzymes; R79.89 Other specified abnormal findings of blood chemistry; E78.2 Mixed hyperlipidemia; E87.5 Hyperkalemia; I35.0 Nonrheumatic aortic (valve) stenosis; R07.9 Chest pain, unspecified; Z87.39 Personal history of other diseases of the musculoskeletal system and connective tissue; Z89.412 Acquired absence of left great toe; Z79.4 Long term (current) use of insulin; Z79.899 Other long term (current) drug therapy; Z86.73 Personal history of transient ischemic attack (TIA), and cerebral infarction without residual deficits; Z87.891 Personal history of nicotine dependence
CPT/HCPCS: 36415; 36600; 50200; 71045; 71046; 76942; 77001; 80048; 80053; 80069; 81001; 82375; 82607; 82728; 82746; 82805; 83050; 83540; 83550; 83615; 83735; 83880; 84100; 84450; 84460; 84484; 85014; 85018; 85025; 85027; 85380; 85610; 85730; 86140; 86704; 86706; 87040; 87086; 87340; 87635; 87804; 88300; 88329; 93005; 94003; 94660; 96374; 99291; A9270; C1750; C1752; G0257; J1644; J1815; J1940; J2250; J2543; J2704; J3010; J7030; J7040; Q4081; U0003

== ENCOUNTER 2020-03-23 10:21 | Outpatient (RCR) | payer OTHER, SELFPAY ==
[2020-02-27 18:01] LABS: Blood Urea Nitrogen 20 mg/dL (9-20); Calcium 7.9 mg/dL (8.4-10.2); Carbon Dioxide 27 mmol/L (22-30); Chloride 102 mmol/L (98-107); Estimated Glomerular Filt Rate 13; Glucose 136 mg/dL (75-110); Potassium 3.6 mmol/L (3.4-5.0); Sodium 138 mmol/L (137-145)
[2020-03-02 15:51] LABS: Blood Urea Nitrogen 39 mg/dL (9-20); CRP 3.6 mg/dL (<1.0); Carbon Dioxide 19 mmol/L (22-30); Chloride 108 mmol/L (98-107); Estimated Glomerular Filt Rate 7; Glucose 98 mg/dL (75-110); Potassium 5.1 mmol/L (3.4-5.0); Sodium 137 mmol/L (137-145)
[2020-03-02 16:31] LABS: Basophils Absolute Auto 0.1 K/mm3 (0.0-0.1); Basophils Percent Auto 1.9 % (0.2-1.2); Eosinophils Absolute Auto 0.2 K/mm3 (0-0.3); Hematocrit 29.2 % (42.0-52.0); Hemoglobin 8.9 g/dL (14.0-18.0); Immature Granulocyte Absolute 0.02 K/mm3 (0.00-0.031); Immature Granulocyte Percent A 0.3 % (0-0.5); Lymphocytes Absolute Auto 1.47 K/mm3 (0.9-3.2); Lymphocytes Percent Auto 21.2 % (18.3-44.2); Mean Corpuscular HGB Conc 30.5 g/dl (32-36); Mean Corpuscular Hemoglobin 23.6 pg (26-34); Mean Corpuscular Volume 77.5 fl (80-100); Mean Platelet Volume 8.9 fl (7.4-10.4); Monocytes Absolute Auto 0.9 K/mm3 (0.1-0.6); Monocytes Percent Auto 12.6 % (2.6-8.5); Neutrophils Absolute Auto 4.2 K/mm3 (1.3-6.7); Platelet Count Result 358 k/mm3 (150-375); Red Blood Count 3.77 M/mm3 (4.6-6.20); Red Cell Distribution Width 15.9 % (11.5-14.5); White Blood Count 6.9 K/mm3 (4.5-10.0)
[2020-03-06 11:52] LABS: Blood Urea Nitrogen 29 mg/dL (9-20); Calcium 8.9 mg/dL (8.4-10.2); Carbon Dioxide 23 mmol/L (22-30); Chloride 107 mmol/L (98-107); Estimated Glomerular Filt Rate 10; Glucose 91 mg/dL (75-110); Potassium 4.5 mmol/L (3.4-5.0); Sodium 140 mmol/L (137-145)
[2020-03-13 11:04] LABS: Blood Urea Nitrogen 26 mg/dL (9-20); Calcium 8.9 mg/dL (8.4-10.2); Carbon Dioxide 21 mmol/L (22-30); Chloride 105 mmol/L (98-107); Estimated Glomerular Filt Rate 13; Glucose 131 mg/dL (75-110); Sodium 138 mmol/L (137-145)
[2020-03-23 10:36] LABS: Basophils Percent Auto 0.6 % (0.2-1.2); Eosinophils Absolute Auto 0.3 K/mm3 (0-0.3); Eosinophils Percent Auto 4.8 % (0-4.4); Hematocrit 24.8 % (42.0-52.0); Hemoglobin 7.8 g/dL (14.0-18.0); Immature Granulocyte Absolute 0.04 K/mm3 (0.00-0.031); Immature Granulocyte Percent A 0.6 % (0-0.5); Lymphocytes Absolute Auto 1.82 K/mm3 (0.9-3.2); Lymphocytes Percent Auto 25.8 % (18.3-44.2); Mean Corpuscular HGB Conc 31.5 g/dl (32-36); Mean Corpuscular Hemoglobin 24.5 pg (26-34); Mean Corpuscular Volume 77.7 fl (80-100); Monocytes Absolute Auto 0.7 K/mm3 (0.1-0.6); Monocytes Percent Auto 10.2 % (2.6-8.5); Neutrophils Absolute Auto 4.1 K/mm3 (1.3-6.7); Platelet Count Result 279 k/mm3 (150-375); Red Blood Count 3.19 M/mm3 (4.6-6.20); Red Cell Distribution Width 17.8 % (11.5-14.5); White Blood Count 7.1 K/mm3 (4.5-10.0)
[2020-03-23 11:08] LABS: CRP 3.6 mg/dL (<1.0)
== END 2020-05-27 23:59 | disposition home or self-care (01) ==
LOC: HOME HLTH 10:21
PROVIDERS: PCP Family Medicine; Visit Provider Internal Medicine Infectious Disease
DX: E11.621 Type 2 diabetes mellitus with foot ulcer (principal); L97.526 Non-pressure chronic ulcer of other part of left foot with bone involvement without evidence of necrosis; M86.172 Other acute osteomyelitis, left ankle and foot; L03.90 Cellulitis, unspecified; N18.9 Chronic kidney disease, unspecified; Z79.2 Long term (current) use of antibiotics
CPT/HCPCS: 80048; 85025; 85610; 85730; 86140

== ENCOUNTER 2020-04-06 00:48 | Outpatient (CLI) | payer OTHER, SELFPAY ==
[2020-04-06 17:00] LABS: SARS-CoV-2 RNA PCR Negative
== END 2020-04-06 00:49 | disposition home or self-care (01) ==
LOC: ANHCOVIDDT 00:48
PROVIDERS: PCP Family Medicine; Visit Provider Surgery
DX: Z20.828 Contact with and (suspected) exposure to other viral communicable diseases (principal); Z01.812 Encounter for preprocedural laboratory examination
CPT/HCPCS: 87635; C9803; U0003

== ENCOUNTER 2020-04-08 01:06 | Day surgery (SDC) | payer OTHER, SELFPAY ==
[2020-04-03 13:03] VITALS: BMI 29.2
[2020-04-08 11:09] VITALS: BP 125/84; PULSE 91; RESP 20; TEMP 36.3; O2SAT 100
--- NOTE | 2020-04-08 11:38 | WPDHPUPDATE1 ---
History and Physical Update Update Date/Time: 04/08/20 11:38 History and Physical has been reviewed, including an updated exam of the patient. There are NO changes in the patient's condition. Risks, benefits, and alternatives have been discussed and questions answered. Patient agrees to proceed with procedure.
[2020-04-08 11:57] LABS: Glucose Point of Care 171 (65-105)
[2020-04-08 12:29] LABS: Blood Urea Nitrogen 38 mg/dL (9-20); Calcium 8.7 mg/dL (8.4-10.2); Carbon Dioxide 22 mmol/L (22-30); Chloride 106 mmol/L (98-107); Estimated CRCL calculation 22 ml/min; Estimated Glomerular Filt Rate 17; Glucose 194 mg/dL (75-110); Potassium 4.5 mmol/L (3.4-5.0); Sodium 138 mmol/L (137-145)
--- NOTE | 2020-04-08 12:34 | WPDANESEFPP ---
Anes - Eval Final PreProcedure Day of Procedure 04/08/20 12:34 Patient weight: overweight Heart: regular rate and rhythm Lungs: clear to auscultation Airway: Mallampati scale class II Neurological: alert and oriented Last oral intake: >/= 8 hours ASA classification: III Emergent: no Anesthetic plan: proceed Anesthesia type and monitoring: general GIVS and standard monitoring Informed Consent: The patient's anesthetic plan and its attendant risks and benefits were discussed with the patient/family/POA. Questions were solicited and answers provided to the satisfaction of the patient/family/POA.
[2020-04-08 12:35] LABS: INR 1.1; Partial Thromboplastin Time 28.7 SECONDS (22.3-36.8); Prothrombin Time 13.7 Seconds (11.1-14.7)
[2020-04-08] MEDS: SODIUM CHLORIDE 0.9% IV 500 ML 30 ML IV CONT (12:59)
--- NOTE | 2020-04-08 13:04 | PM.IMHP ---
H&P: HPI History of Present Illness Chief complaint: Acute Osteomyelitis of foot Narrative: Pankaj Bautista is a 54 year old male presenting for removal of L SCV Wright catheter. Pt has completed course of IV abx for LE osteomyeliits. Pt seen by ID and no further abx tx needed. Pt referred for removal of central venous access. Pt does have [facility] that he is getting HD thru. Review of Systems Constitutional: Constitutional: Reports body ache(s), Denies chills, Reports fatigue, Reports lethargy and Reports weakness Eyes: Eyes: Denies no additional eye complaints ENT: Reports Normal hearing present and Denies dysphagia Cardiovascular: Cardiovascular: Denies chest pain and Denies palpitations Respiratory: Respiratory: Reports no additional respiratory complaints and Denies dyspnea Gastrointestinal: Gastrointestinal: Denies abdominal pain, Denies bloating, Denies nausea and Denies vomiting Genitourinary: Genitourinary: Denies dysuria Musculoskeletal: Musculoskeletal: Reports myalgias Integumentary/Breasts: Skin/Breast: Reports dry skin and Reports pruritus Neurologic: Denies confusion and Denies headache(s) Psychiatric: Psychiatric: Denies no additional psychiatric complaints [facility] Past Medical History Medical History Aortic valve stenosis Arthritis Chronic kidney disease Diabetic foot ulcer Diabetic foot ulcer Probing to bone Essential (primary) hypertension FHx: prostate cancer Finger fracture GERD (gastroesophageal reflux disease) Head ache Heart murmur Hiatal hernia History of cerebrovascular accident (CVA) in adulthood Hy kid NOS w cr kid I-IV Impingement syndrome of left shoulder Iron deficiency Long-term insulin use Microcytic anemia Mixed hyperlipidemia Neuropathy Peripheral vascular disease (Unknown) Pneumonia Prostate cancer screening 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el release History of tonsillectomy Family History Family History Mother Family history of diabetes mellitus in first degree relative Family history of malignant neoplasm of breast in first degree relative Other Family history of arthritis Family history of coronary artery disease Hypertension Social History Social History Smoking packs per day: 2 Smoking cigarettes per day: 40.0 Years smoked: 25 Smoking pack-years: 50.00 Smoking status: Former smoker Tobacco type: cigarettes Smoking end date: 10/23/07 Alcohol intake: never Substance use: never Substance use type: does not use Gender identity (if verbalized by the patient): Male Spiritual care concerns: No Agree to blood products: Yes Meds Home Medications and Allergies Home Medications Medication Instructions Recorded Confirmed Type pantoprazole 40 mg PO DAILY 08/30/19 04/08/20 History venlafaxine 150 mg PO BID 08/30/19 04/08/20 History pen needle, diabetic 31 gauge x #30 each 09/11/19 03/30/20 Rx 5/16 insulin syringe-needle U-100 0.5 #200 each 01/01/20 03/30/20 Rx mL 29 gauge x 1/2 irbesartan 150 mg tablet 150 mg PO DAILY #30 tablet 03/19/20 04/08/20 Rx gabapentin 300 mg capsule 300 mg PO TID cap 03/30/20 04/08/20 History carvedilol 12.5 mg tablet 12.5 mg PO Q12H #60 tablet 04/01/20 04/08/20 Rx amlodipine 10 mg PO DAILY 04/03/20 04/08/20 History ciprofloxacin HCl [Cipro] 250 mg PO DAILY 04/03/20 04/08/20 History clindamycin HCl 300 mg PO Q8H 04/03/20 04/08/20 History insulin glargine [Lantus Solostar 22 unit SUBCUT QAM 04/03/20 04/08/20 History U-100 Insulin] Allergies Allergy/AdvReac Type Severity Reaction Status Date / Time No Known Allergies Allergy Verifie
[2020-04-08] MEDS: ceFAZolin 2 GM/D5W 50 ML 2 GM/50 ML BAG IVPB (13:13)
[2020-04-08] MEDS: LIDO 1%/EPINEPHRINE 1:100,000 20 ML VIAL INFILTRATE (13:28)
[2020-04-08 13:50] VITALS: BP 107/79; PULSE 87; RESP 20; O2SAT 100
[2020-04-08 14:10] VITALS: BP 129/86; PULSE 87; RESP 16
--- NOTE | 2020-04-08 14:33 | P.OP_ITS ---
Procedure Note - Detailed Date of procedure: 04/08/20 Pre-op diagnosis: Acute Osteomyelitis of foot Post-op diagnosis: same Procedure performed: removal left subclavian Wright catheter Description of procedure: Patient was taken to the operating room and placed in the supine position. After adequate induction of mac anesthesia, the patient was prepped and draped normal sterile fashion. A time-out was then done to verify patient's identity, as well as the procedure being. I began by locally anesthetizing the area around the exit site as well as the tract of the Wright catheter. Once this was done, I gently tugged on the Wright catheter at the exit site. I was unable to remove the catheter with gentle traction. Given this, I went ahead and dissected around the tract with the hemostat. I was really unable to identify the cuff in the subcutaneous tissue. I then went ahead and made a counter incision where the cuff was located. Once this was done, I was able to dissect around the cuff. I was then able to remove the cath eter in full. I then held pressure at the level of the subclavian vein for approximately 5 minutes. No bleeding was noted after pressure was applied. I then closed the counter incision with 4 O Monocryl subcuticular suture. I also placed a 4 Monocryl subcuticular suture at the exit site. Dermabond was placed on both wounds. The patient tolerated the procedure well and will be transferred to the recovery room in stable condition. Anesthesia: MAC Surgeon: Angela Zazueta MD Estimated blood loss (mL): 5 Drains: No Packing: No Pathology: none sent Complications: No immediate complications Condition: stable Disposition: PACU Findings: LSCV Wright catheter removed in full
[2020-04-08 14:40] VITALS: BP 141/88; PULSE 82; RESP 16
--- NOTE | 2020-04-08 14:50 | SUR.PHASEII ---
[id number] updated spouse and she is heading this way
[2020-04-08 15:00] VITALS: BP 149/102; PULSE 87; RESP 16
== END 2020-04-08 15:10 | disposition home or self-care (01) ==
PROVIDERS: PCP Family Medicine; Visit Provider Surgery
PROC: (CPT 49422; principal; 2020-04-08 13:00)
DX: Z45.2 Encounter for adjustment and management of vascular access device (principal); M86.171 Other acute osteomyelitis, right ankle and foot; E11.69 Type 2 diabetes mellitus with other specified complication; E11.22 Type 2 diabetes mellitus with diabetic chronic kidney disease; I12.9 Hypertensive chronic kidney disease with stage 1 through stage 4 chronic kidney disease, or unspecified chronic kidney disease; N18.9 Chronic kidney disease, unspecified; E78.2 Mixed hyperlipidemia; E11.40 Type 2 diabetes mellitus with diabetic neuropathy, unspecified; K21.9 Gastro-esophageal reflux disease without esophagitis; E11.51 Type 2 diabetes mellitus with diabetic peripheral angiopathy without gangrene; E11.311 Type 2 diabetes mellitus with unspecified diabetic retinopathy with macular edema; D64.9 Anemia, unspecified; Z79.4 Long term (current) use of insulin; Z86.73 Personal history of transient ischemic attack (TIA), and cerebral infarction without residual deficits; Z87.891 Personal history of nicotine dependence
CPT/HCPCS: 36561; 36415; 80048; 85610; 85730; J0690; J2704; J7040

== ENCOUNTER → 2020-06-03 07:25 | Outpatient (CLI) | payer OTHER, SELFPAY ==
--- NOTE | ~2020-06-03 | XR_ITS ---
XR chest 2V DATE: 06/03/2020 08:05 INDICATION: Orthopnea. Shortness of breath. TECHNIQUE: PA and lateral views COMPARISON: 02/26/2020 portable AP chest at 1117 hours FINDINGS: There is patchy infiltrate in the right lower lung. Minimal infiltrate or atelectasis in t he left lower lung. Normal heart size. No hilar or mediastinal enlargement. No pleural effusion or pneumothorax. Right internal jugular central venous catheter tip in upper right atrium. IMPRESSION: Patchy bibasilar infiltrate and/atelectasis, right greater than left Reviewed, dictated and finalized at location A. IMPRESSION: Patchy bibasilar infiltrate and/atelectasis, right greater than lef t
== END ==
PROVIDERS: Visit Provider Internal Medicine Nephrology
DX: R06.01 Orthopnea (principal); R06.02 Shortness of breath; R91.8 Other nonspecific abnormal finding of lung field
CPT/HCPCS: 71046

== ENCOUNTER 2020-06-16 16:46 | Outpatient (CLI) | payer OTHER, SELFPAY ==
--- NOTE | ~2020-06-16 | XR_ITS ---
XR chest 2V INDICATION: Shortness of breath and cough. TECHNIQUE: 2 view chest. FINDINGS: Comparison to multiple prior studies sequentially, with oldest reviewed study dated 020. There is mild bilateral interstitial prominence and peribronchial cuffing. There is no focal consoli dation, pleural effusion, or pneumothorax. The cardiomediastinal silhouette is normal. Port catheter tip in the SVC. IMPRESSION: 1. Findings most consistent with bronchiolitis versus an atypical or viral pneumonia. Reviewed, dictated and finalized at location A. IMPRESSION: 1. Findings most consistent with bronchiolitis versus an atypical or viral pne [facility].
[2020-06-16 17:49] LABS: D Dimer 0.98 ug/mL (<0.48)
[2020-06-16 17:58] LABS: NT Pro B Type Natriuretic Pept 22100 PG/ML (5-100)
== END 2020-06-16 16:47 | disposition home or self-care (01) ==
PROVIDERS: PCP Family Medicine; Visit Provider Physician Assistant
DX: R06.02 Shortness of breath (principal); R05 Cough
CPT/HCPCS: 36415; 71046; 83880; 85380

== ENCOUNTER 2020-06-17 12:30 | Outpatient (CLI) | payer OTHER, SELFPAY ==
[2020-06-17 13:36] LABS: Estimated Glomerular Filt Rate 15
== END 2020-06-17 12:31 | disposition home or self-care (01) ==
LOC: ANHIMG 12:31
PROVIDERS: PCP Family Medicine; Visit Provider Physician Assistant
DX: R06.02 Shortness of breath (principal); R79.89 Other specified abnormal findings of blood chemistry
CPT/HCPCS: 99199

== ENCOUNTER 2020-06-17 14:01 | Inpatient (IN) | payer OTHER, SELFPAY ==
[2020-06-17] VITALS (8 sets, daily range): BP systolic 146–191; BP diastolic 102–126; PULSE 80–95; RESP 17–22; TEMP 36.6–36.8; O2SAT 97–100; BMI 30.5; BMI 31.5
--- NOTE | ~2020-06-17 | CT_ITS ---
EXAMINATION: CT chest wo con DATE: 06/17/2020 17:20 INDICATION: Shortness of breath TECHNIQUE: Computed tomography (CT) of the chest was performed without intravenous contrast. The dose -length product was 423.43 mGy-cm. Automated exposure control and iterative reconstruction technique were employed. COMPARISON: Chest x-ray dated 06/16/[address] dated 02/07/2020 FINDINGS: There is no mediastinal lymphadenopathy which has developed since prior CT examination. For example AP window lymph node measuring 1.6 cm, image 43. Right paratracheal lymph node measures 1.5 cm, image 42. There are calcified mediastinal and right hilar lymph nodes, consistent with chronic gr anulomatous disease. Heart size normal. No significant pleural or pericardial effusion. There are mul tiple nonenlarged left axillary lymph nodes. There are patchy bilateral groundglass opacities involvi ng the right upper and bilateral lower lobes. There is a large bore central venous catheter in the co ndyle aspect of the SVC. No evidence for pneumothorax. No endobronchial lesions. IMPRESSION: 1. Patchy bilateral groundglass opacities have developed since prior examination. Differential includ es infection and respiratory bronchiolitis. 2: Mediastinal lymphadenopathy, likely reactive. Reviewed, dictated and finalized at location A. IMPRESSION: 1. Patchy bilateral groundglass opacities have developed since prior examinatio n. Differential includes infection and respiratory bronchiolitis. 2: Mediastinal lymphadenopathy, likely reactive.
--- NOTE | 2020-06-17 14:18 | ECG_ITS ---
Measurements Intervals [place] Rate: 81 P: 8 [place]: 156 QRS: 8 QRSD: 86 T: 72 QT: 413 QTc: 480 Interpretive Statements SINUS RHYTHM BORDERLINE ST-T WAVE ABNORMALITY- HIGH LATERAL LEADS BORDERLINE ECG Electronically Signed On 06-17-2020 16:07:24 CDT by Jairo French D.O.
[2020-06-17 14:30] LABS: Basophils Percent Auto 0.5 % (0.2-1.2); Eosinophils Absolute Auto 0.2 K/mm3 (0-0.3); Eosinophils Percent Auto 2.1 % (0-4.4); Hematocrit 28.2 % (42.0-52.0); Hemoglobin 8.9 g/dL (14.0-18.0); Immature Granulocyte Absolute 0.02 K/mm3 (0.00-0.031); Immature Granulocyte Percent A 0.3 % (0-0.5); Lymphocytes Absolute Auto 2.69 K/mm3 (0.9-3.2); Lymphocytes Percent Auto 35.5 % (18.3-44.2); Mean Corpuscular HGB Conc 31.6 g/dl (32-36); Mean Corpuscular Hemoglobin 24.3 pg (26-34); Mean Corpuscular Volume 76.8 fl (80-100); Monocytes Absolute Auto 0.6 K/mm3 (0.1-0.6); Monocytes Percent Auto 8.2 % (2.6-8.5); Neutrophils Absolute Auto 4.1 K/mm3 (1.3-6.7); Neutrophils Percent Auto 53.4 % (45.5-73.1); Platelet Count Result 229 k/mm3 (150-375); Red Blood Count 3.67 M/mm3 (4.6-6.20); Red Cell Distribution Width 15.1 % (11.5-14.5); White Blood Count 7.6 K/mm3 (4.5-10.0)
[2020-06-17 14:42] LABS: Anion Gap 10 mmol/L (8-16); Blood Urea Nitrogen 49 mg/dL (9-20); Calcium 8.3 mg/dL (8.4-10.2); Carbon Dioxide 18 mmol/L (22-30); Chloride 108 mmol/L (98-107); Estimated CRCL calculation 24 ml/min; Estimated Glomerular Filt Rate 16; Glucose 258 mg/dL (75-110); Potassium 4.4 mmol/L (3.4-5.0); Sodium 136 mmol/L (137-145)
--- NOTE | 2020-06-17 16:27 | PC.NURSE ---
called lab to add on
--- NOTE | 2020-06-17 16:38 | ED.RECABL ---
HPI - Recheck/Abnormal Lab/Rx General Chief Complaint: Recheck/Abnormal Lab/Rx Stated Complaint: abnormal labs Time Seen by Provider: 06/17/20 16:08 History of Present Illness HPI narrative: 54-year-old male presents emergency department for abnormal labs. Patient states he was at his primary care's office yesterday, and had blood levels drawn for shortness of breath. Patient had elevated d-dimer and BNP. Patient states he has been feeling short of breath with exertion, progressively worsening. His last dialysis was 6 weeks ago. At this time, no chest pain or shortness of breath. No abdominal pain. No nausea or vomiting. Related Data Home Medications Medication Instructions Recorded Confirmed pantoprazole 40 mg PO DAILY 08/30/19 04/08/20 venlafaxine 150 mg PO BID 08/30/19 04/08/20 gabapentin 300 mg capsule 300 mg PO TID cap 03/30/20 04/08/20 amlodipine 10 mg PO DAILY 04/03/20 04/08/20 insulin glargine [Lantus Solostar 22 unit SUBCUT QAM 04/03/20 04/08/20 U-100 Insulin] Allergies Allergy/AdvReac Type Severity Reaction Status Date / Time No Known Allergies Allergy Verified 06/16/20 16:02 Review of Systems Review of Systems: Narrative: CONSTITUTIONAL: Denies fever, chills, or sweats. EYES: Denies visual changes, redness, or discharge. ENT: Denies rhinorrhea, congestion, sore throat, or otalgia. CARDIOVASCULAR: Denies chest pain, palpitations, or edema. Patient reports shortness of breath with exertion RESPIRATORY: Denies cough or dyspnea. GASTROINTESTINAL: Denies abdominal pain, nausea, vomiting, or diarrhea. GENITOURINARY: Denies dysuria or hematuria. SKIN: Denies rash or itching. MUSCULOSKELETAL: Denies back pain, joint pain, or myalgia. NEUROLOGIC: Denies headache, numbness, dizziness, or weakness. PSYCHIATRIC: Denies anxiety or depression. [facility] Past Medical History Medical History Aortic valve stenosis Arthritis Chronic kidney disease Diabetic foot ulcer Diabetic foot ulcer Probing to bone Essential (primary) hypertension FHx: prostate cancer Finger fracture GERD (gastroesophageal reflux disease) Head ache Heart murmur Hiatal hernia History of cerebrovascular accident (CVA) in adulthood Hy kid NOS w cr kid I-IV Impingement syndrome of left shoulder Iron deficiency Long-term insulin use Microcytic anemia Mixed hyperlipidemia Neuropathy Peripheral vascular disease (Unknown) Pneumonia Prostate cancer screening 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 2 diabetes mellitus with hyperglycemia Surgical History Surgical History Amputation of left great toe History of carpal tunnel release History of tonsillectomy Family History Family History Mother Family history of diabetes mellitus in first degree relative Family history of malignant neoplasm of breast in first degree relative Other Family history of arthritis Family history of coronary artery disease Hypertension Social History Social History Smoking packs per day: 2 Smoking cigarettes per day: 40.0 Years smoked: 25 Smoking pack-years: 50.00 Smoking status: Former smoker Tobacco type: cigarettes Smoking end date: 10/23/07 Alcohol intake: never Substance use: never Substance use type: does not use Gender identity (if verbalized by the patient): Male Spiritual care concerns: No Agree to blood products: Yes Exam Narrative: Exam Narrative: GENERAL: Well-appearing, well-nourished, and in no acute distress. HEAD: Normocephalic, atraumatic. EYES: PERRLA and EOMI. ENT: Nares clear, no rhinorrhea or epistaxis. Mucous membranes moist. NECK: Supple. CHEST: Clear to auscultation. No respiratory distress. Dialysis access to right chest HEART: Regular rate and rhyth
[2020-06-17 16:39] LABS: Alanine Aminotransferase 27 U/L (4-50); Albumin Level 3.6 g/dL (3.5-5.1); Alkaline Phosphatase 212 U/L (38-126); Aspartate Amino Transferase 24 U/L (17-59); Bilirubin,Total 0.2 mg/dL (0.2-1.3)
[2020-06-17 16:45] LABS: INR 1.2; Prothrombin Time 14.4 Seconds (11.1-14.7)
[2020-06-17 16:46] LABS: Partial Thromboplastin Time 30.9 SECONDS (22.3-36.8)
[2020-06-17 16:48] LABS: NT Pro B Type Natriuretic Pept 19000 PG/ML (5-100)
[2020-06-17 19:05] LABS: CRP 3.1 mg/dL (<1.0); Lactate Dehydrogenase 459 U/L (313-618)
[2020-06-17] MEDS: FUROSEMIDE INJ 100 MG/10 ML VIAL 60 MG IV PUSH (19:38)
[2020-06-17] MEDS: LABETALOL HCL INJ 100 MG/20 ML VIAL 20 MG IV PUSH (22:05)
[2020-06-17 22:44] LABS: Glucose Point of Care 139 (65-105)
--- NOTE | 2020-06-17 22:48 | PC.NURSE ---
This patient, Pankaj Bautista, was admitted to [facility] Surg Room 325-01. Patient/family oriented to hospital policies and general routines including ID bracelet, bed and alarms, visiting hours, pain management, procedures, bathroom and other care routines, personal items, smoking policy, room service/diet, and visiting hours. Valuables list has been completed. Information on how to activate the Rapid Response Team has been discussed. Patient/Family are encouraged to report perceived risks to care and to ask questions if they do not understand what they are told or what they should do.
[2020-06-18] VITALS (12 sets, daily range): BP systolic 140–178; BP diastolic 86–113; PULSE 79–93; RESP 16–20; TEMP 36.1–36.7; O2SAT 94–100
[2020-06-18] MEDS: carvediloL 12.5 MG TABLET PO ×3 (05:24→20:10)
[2020-06-18] MEDS: BUMETANIDE 1 MG TABLET PO ×3 (05:24→18:40)
[2020-06-18 07:01] LABS: Hemoglobin 9.6 g/dL (14.0-18.0); Mean Corpuscular Hemoglobin 23.6 pg (26-34); Mean Corpuscular Volume 76.4 fl (80-100); Mean Platelet Volume 9.4 fl (7.4-10.4); Platelet Count Result 217 k/mm3 (150-375); Red Blood Count 4.06 M/mm3 (4.6-6.20); Red Cell Distribution Width 15.1 % (11.5-14.5)
[2020-06-18 07:13] LABS: Albumin Level 3.6 g/dL (3.5-5.1); Anion Gap 9 mmol/L (8-16); Blood Urea Nitrogen 46 mg/dL (9-20); Calcium 8.6 mg/dL (8.4-10.2); Carbon Dioxide 21 mmol/L (22-30); Chloride 110 mmol/L (98-107); Estimated CRCL calculation 23 ml/min; Estimated Glomerular Filt Rate 15; Glucose 179 mg/dL (75-110); Phosphorus 6.2 mg/dL (2.5-4.5); Potassium 4.1 mmol/L (3.4-5.0); Sodium 140 mmol/L (137-145)
[2020-06-18 08:21] LABS: Glucose Point of Care 173 (65-105)
--- NOTE | 2020-06-18 08:36 | PM.IMHP ---
H&P: HPI History of Present Illness Date/Time: 06/18/20 08:36 Chief complaint: SOB Narrative: Pankaj Bautista is a 54 year old male had histor of Osteomyelitis of foot in december. no trouble right now. Reason of admission now is sob, SOB been going on for 3-4 weeks pt was seeing Dr Smith was giving him ABX ? pneumonia ? pulmonary edema but his CXR looked good. Pt felt better when he was on antibitiocs. Pt has recently been off dialysis for 6 weeks. Pt having gurgling in the chest pt went to doctors apt with DR Higuera, pt did blood test, pt was ordered ct chest but pt could not do test because of his renal failure. Pt still slightly sob but no fever no cough no sputum Pt had a recent negative covid test from work Cxr today shows pneumonia BP is high for december Review of Systems Review of Systems: All systems reviewed & are unremarkable except as noted in HPI and below Constitutional: Constitutional: Reports fever(s), Reports lethargy and Reports malaise Cardiovascular: Cardiovascular: Denies chest pain and Reports dyspnea Comments: No edema Respiratory: Respiratory: Reports chest congestion and Reports dyspnea [facility] Past Medical History Medical History Aortic valve stenosis Arthritis Chronic kidney disease Diabetic foot ulcer Diabetic foot ulcer Probing to bone Essential (primary) hypertension FHx: prostate cancer Finger fracture GERD (gastroesophageal reflux disease) Head ache Heart murmur Hiatal hernia History of cerebrovascular accident (CVA) in adulthood Hy kid NOS w cr kid I-IV Impingement syndrome of left shoulder Iron deficiency Long-term insulin use Microcytic anemia Mixed hyperlipidemia Neuropathy Peripheral vascular disease (Unknown) Pneumonia Prostate cancer screening 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 2 diabetes mellitus with hyperglycemia Surgical History Surgical History Amputation of left great toe History of carpal tunnel release History of tonsillectomy Family History Family History Mother Family history of diabetes mellitus in first degree relative Family history of malignant neoplasm of breast in first degree relative Hypertension Family history of coronary artery disease Family history of arthritis Father Hypertension Malignant neoplasm of prostate Social History Social History Smoking packs per day: 2 Smoking cigarettes per day: 40.0 Years smoked: 25 Smoking pack-years: 50.00 Smoking status: Former smoker Tobacco type: cigarettes Smoking end date: 10/23/07 Alcohol intake: never Substance use: never Substance use type: does not use Gender identity (if verbalized by the patient): Male Spiritual care concerns: No Agree to blood products: Yes Meds Home Medications and Allergies Home Medications Medication Instructions Recorded Confirmed Type venlafaxine 150 mg PO BID 08/30/19 06/17/20 History pen needle, diabetic 31 gauge x #30 each 09/11/19 06/17/20 Rx 03/07 insulin syringe-needle U-100 0.5 #200 each 01/01/20 06/17/20 Rx mL 29 gauge x 1/2 gabapentin 300 mg capsule 300 mg PO TID cap 03/30/20 06/17/20 History carvedilol 12.5 mg tablet 12.5 mg PO Q12H #60 tablet 04/01/20 06/17/20 Rx insulin glargine [Lantus Solostar 22 unit SUBCUT BID 04/03/20 06/17/20 History U-100 Insulin] atorvastatin 20 mg tablet 20 mg PO DAILY #90 tablet 04/15/20 06/17/20 Rx famotidine 40 mg tablet 20 mg PO BID #90 tablet 04/15/20 06/17/20 Rx irbesartan 150 mg tablet 150 mg PO DAILY #30 tablet 06/12/20 06/17/20 Rx bumetanide 1 mg PO BID 06/17/20 06/17/20 History Allergies Allergy/AdvReac Type Severity Reaction Status Date / Time No Known Allergies Allergy Verified 06/16/20 16:02
[2020-06-18] MEDS: INSULIN GLARGINE (*BKC) 100 UNITS/ML 22 UNITS SUB-Q ×2 (09:41→18:34)
[2020-06-18] MEDS: GABAPENTIN 300 MG CAPSULE PO ×3 (09:45→18:39)
[2020-06-18] MEDS: IRBESARTAN 150 MG TABLET PO (09:45)
[2020-06-18] MEDS: ATORVASTATIN 20 MG TABLET PO (09:45)
[2020-06-18] MEDS: FAMOTIDINE 20 MG TABLET PO ×2 (09:45→18:40)
[2020-06-18] MEDS: VENLAFAXINE HCL 75 MG TABLET 150 MG PO ×2 (09:49→18:40)
[2020-06-18 12:16] LABS: Glucose Point of Care 258 (65-105)
[2020-06-18] MEDS: INSULIN ASPART (*BKC) 100 UNITS/ML SUB-Q (13:07)
[2020-06-18 14:54] LABS: SARS-CoV-2 RNA PCR Negative
--- NOTE | 2020-06-18 17:15 | PM.CNNEP ---
Assessment and Plan Assessment and plan (1) Chronic kidney disease: Qualifiers: Chronic kidney disease stage: stage 4 (severe) Qualified Code(s): N18.4 - Chronic kidney disease, stage 4 (severe) Code(s): N18.9 - Chronic kidney disease, unspecified Status: Chronic Assessment and Plan: was previously dialysis dependent however, recovered renal function but with a new baseline creatinine around 4ish no critical electrolytes, stable acid-base status, and no evidence or uremia had planned outpatient removal of HD catheter (prior to this admission) (2) SOB (shortness of breath): Code(s): R06.02 - Shortness of breath Status: Acute Assessment and Plan: etiology??? -- initial thought was volume overload imaging studies (CXR, CT of chest...etc) no very impressive for this elevated BNP not likely reliable in the setting of advanced CKD cardiac or valve issues (does have aortic stenosis by last echo...) - consider Cardiology consult (Dr. French) to reassess follow I/Os with diuretic therapy should we consider a trial of DUF/HD to see if that help??? (3) Hypertension: Code(s): I10 - Essential (primary) hypertension Status: Acute Assessment and Plan: has been difficult to control in the past reasonable control at this time (4) Anemia: Code(s): D64.9 - Anemia, unspecified Status: Acute Assessment and Plan: partly related to CKD check iron studies and consider empiric Epogen follow trend of H/H (5) Diabetes: Code(s): E11.9 - Type 2 diabetes mellitus without complications Status: Acute Assessment and Plan: follow accuchecks on Lantus and SSI Will continue to follow. History of Present Illness Reason for Consult Consult date: 06/18/20 Reason for consult: chronic renal failure Chief Complaint Chief complaint: SOB History of Present Illness Narrative: The patient is a 54-year-old male with a past medical history as outlined below who presented to [facility] Emergency room due to ongoing complaints of shortness of breath. The patient was recently discontinued from hemodialysis as his kidney function sufficiently recovered that he did not require any further treatments. However, in the last 1-2 weeks he been having ongoing issues and problems with shortness of breath particularly in the evening and when he lays flat. He describes shortness of breath as a gurgling that he can't seem to get rid of. The initial concern was that perhaps he was getting fluid overloaded since he discontinued dialysis but outpatient chest x-ray did not demonstrate any overt pulmonary vascular congestion. It did show a possible infiltrate so he was started on oral antibiotic therapy on the assumption that this was perhaps early bronchitis or a possible pneumonia. However, despite this intervention, the shortness of breath persisted which subsequently led to his presentation here at [facility]. Workup and evaluation emergency room demonstrated the patient to be hemodynamically stable (if not hypertensive ), with routine blood tests that were consistent with his kidney function/creatinine since he has discontinued dialysis. His BNP was quite high but his chest x-ray in the ER did not demonstrating any overt pulmonary effusions or pulmonary vascular congestion either. He subsequent underwent a CT scan of the chest for further evaluation which did not demonstrate any significant pulmonary vascular congestion, pleural effusions not accept her but did show patchy bilateral groundglass opacities with the possible concern for infection and respiratory bronchiolitis. he was subsequently admitted to the hospital for further evaluation and therapy. Renal consultation was requested due to his history of dialysis dependent renal failure and chronic kidney disease. As already mentioned, the patient was previously on hemodia
[2020-06-18 18:22] LABS: Glucose Point of Care 175 (65-105)
[2020-06-18] MEDS: hydrALAZINE HCL 20 MG/ML VIAL 10 MG IV PUSH (18:40)
[2020-06-18] MEDS: HEPARIN SODIUM 5,000 UNITS/ML VIAL 5000 UNITS SUB-Q (20:52)
[2020-06-18 22:29] LABS: Glucose Point of Care 249 (65-105)
[2020-06-19 06:00] VITALS: BP 176/100; PULSE 81; RESP 18; TEMP 36.5; O2SAT 100
[2020-06-19] MEDS: hydrALAZINE HCL 20 MG/ML VIAL 10 MG IV PUSH (06:31)
[2020-06-19 07:52] LABS: Basophils Absolute Auto 0.1 K/mm3 (0.0-0.1); Basophils Percent Auto 0.9 % (0.2-1.2); Eosinophils Absolute Auto 0.2 K/mm3 (0-0.3); Eosinophils Percent Auto 2.1 % (0-4.4); Hematocrit 32.7 % (42.0-52.0); Hemoglobin 10.4 g/dL (14.0-18.0); Immature Granulocyte Absolute 0.02 K/mm3 (0.00-0.031); Immature Granulocyte Percent A 0.3 % (0-0.5); Lymphocytes Absolute Auto 2.33 K/mm3 (0.9-3.2); Lymphocytes Percent Auto 30.6 % (18.3-44.2); Mean Corpuscular HGB Conc 31.8 g/dl (32-36); Mean Corpuscular Volume 75.5 fl (80-100); Mean Platelet Volume 9.9 fl (7.4-10.4); Monocytes Absolute Auto 0.6 K/mm3 (0.1-0.6); Monocytes Percent Auto 7.8 % (2.6-8.5); Neutrophils Absolute Auto 4.4 K/mm3 (1.3-6.7); Neutrophils Percent Auto 58.3 % (45.5-73.1); Platelet Count Result 245 k/mm3 (150-375); Red Blood Count 4.33 M/mm3 (4.6-6.20); Red Cell Distribution Width 14.9 % (11.5-14.5); White Blood Count 7.6 K/mm3 (4.5-10.0)
[2020-06-19 08:36] LABS: Albumin Level 3.6 g/dL (3.5-5.1); Anion Gap 9 mmol/L (8-16); Blood Urea Nitrogen 45 mg/dL (9-20); Calcium 8.8 mg/dL (8.4-10.2); Carbon Dioxide 21 mmol/L (22-30); Chloride 109 mmol/L (98-107); Estimated CRCL calculation 24 ml/min; Estimated Glomerular Filt Rate 16; Glucose 158 mg/dL (75-110); Phosphorus 5.3 mg/dL (2.5-4.5); Potassium 3.9 mmol/L (3.4-5.0); Sodium 139 mmol/L (137-145)
[2020-06-19 08:37] LABS: Glucose Point of Care 161 (65-105)
[2020-06-19] MEDS: FUROSEMIDE 40 MG TABLET PO (09:54)
[2020-06-19] MEDS: GABAPENTIN 300 MG CAPSULE PO ×3 (09:54→18:07)
[2020-06-19] MEDS: IRBESARTAN 150 MG TABLET PO (09:54)
[2020-06-19] MEDS: VENLAFAXINE HCL 75 MG TABLET 150 MG PO ×2 (09:54→18:08)
[2020-06-19] MEDS: ATORVASTATIN 20 MG TABLET PO (09:54)
[2020-06-19] MEDS: FAMOTIDINE 20 MG TABLET PO ×2 (09:54→18:08)
[2020-06-19] MEDS: BUMETANIDE 1 MG TABLET PO ×2 (09:55→18:08)
[2020-06-19] MEDS: AZITHROMYCIN 250 MG TABLET PO (09:55)
[2020-06-19 09:57] VITALS: PULSE 98
[2020-06-19] MEDS: HEPARIN SODIUM 5,000 UNITS/ML VIAL 5000 UNITS SUB-Q ×2 (09:57→22:36)
[2020-06-19] MEDS: carvediloL 12.5 MG TABLET PO ×2 (09:57→21:31)
[2020-06-19] MEDS: INSULIN GLARGINE (*BKC) 100 UNITS/ML 22 UNITS SUB-Q ×2 (09:59→18:06)
[2020-06-19 10:45] LABS: Hepatitis B Surface Antigen Negative (Negative)
[2020-06-19 10:50] LABS: HAV RESULT Negative (Negative); Hepatitis B Core IgM Result Negative (Negative)
[2020-06-19 11:02] LABS: Hepatitis B Surface Anti Res Negative; Hepatitis C Virus Antibody Negative (Negative)
[2020-06-19 12:44] LABS: Glucose Point of Care 227 (65-105)
[2020-06-19] MEDS: INSULIN ASPART (*BKC) 100 UNITS/ML SUB-Q (13:02)
[2020-06-19 13:55] VITALS: BP 124/83; PULSE 96; RESP 18; TEMP 36.7; O2SAT 97
--- NOTE | 2020-06-19 14:44 | PM.IMPN ---
Progress Note: A&P Assessment and Plan (1) Anemia: Code(s): D64.9 - Anemia, unspecified Status: Acute Assessment and Plan: related to CKD (2) Diabetes: Code(s): E11.9 - Type 2 diabetes mellitus without complications Status: Acute Assessment and Plan: SSI, accuchecks. AC and HS (3) Dyspnea: Code(s): R06.00 - Dyspnea, unspecified Status: Acute Assessment and Plan: Likley secondary to CAP, pt is negative for the covid (4) Hypertension: Code(s): I10 - Essential (primary) hypertension Status: Acute Assessment and Plan: Bp running high at the moment pt to have labetolol and hydralazine PRN lasix PRN and irbesartan (5) Pneumonia: Code(s): J18.9 - Pneumonia, unspecified organism Status: Acute Assessment and Plan: BC not resulted yet, pt is on IV rocephin and zithromax oral day 2 (6) CKD (chronic kidney disease): Code(s): N18.9 - Chronic kidney disease, unspecified Status: Acute Assessment and Plan: STAGE 5 pt just came off dialysis, dialysis is on hold presently Subjective Date/time seen: 06/19/20 14:44 Interval history: Lily is a 54 year old male had histor of Osteomyelitis of foot in december. no trouble right now. Reason of admission now is sob, SOB been going on for 3-4 weeks pt was seeing Dr Smith was giving him ABX ? pneumonia ? pulmonary edema but his CXR looked good then, CXr shows pneumonia now. Review of Systems Constitutional: Constitutional: Reports fatigue, Reports lethargy and Reports weakness Respiratory: Respiratory: Reports cough, Reports dyspnea, Reports dyspnea on exertion and Reports wheezing Exam Const: General: well developed Nutritional Appearance: well nourished HENMT: Head: normocephalic Eyes: General: appearance normal, both eyes and all related structures Pupils: Equal, round and reactive pupils present Neck: Neck: supple Chest: Chest palpation & inspection: normal inspection of the chest Resp: Effort & Inspection: normal respiratory effort Auscultation: wheezes (in left base ) Cardio: Jugular venous distension: no JVD Rhythm: regular rhythm Heart sounds: S1 normal heart sound present and S2 normal heart sound present GI: Inspection: normal to inspection Auscultation: normal bowel sounds Skin: General skin exam: normal color and dry skin Neuro: Cranial nerves: Yes CN's II-XII intact bilaterally and Yes Equal, round and reactive pupils present Cognition (Neuro): normal cognition Speech: normal speech Motor exam (neuro): 5/5 motor strength present throughout Extrem: General: normal to inspection Psych: Appearance: grossly normal Mental Status: mental status grossly normal Objective Data Vital Signs Vital Signs: Vital Signs - 24 hr 06/18/20 16:00 06/18/20 19:45 06/18/20 19:54 Temperature 36.7 C Pulse Rate 86 Respiratory Rate 16 Blood Pressure 162/110 H 170/100 H Pulse Oximetry 99 98 06/18/20 20:10 06/18/20 22:00 06/19/20 06:00 Temperature 36.1 C L 36.5 C Pulse Rate 86 82 81 Respiratory Rate 16 18 Blood Pressure 178/88 H 176/100 H Pulse Oximetry 98 100 06/19/20 09:57 06/19/20 13:55 Temperature 36.7 C Pulse Rate 98 96 Respiratory Rate 18 Blood Pressure 124/83 Pulse Oximetry 97 Intake/Output Intake/Output: Intake & Output 06/16/20 06/17/20 06/18/20 06/19/20 23:59 23:59 23:59 23:59 Intake Total 1950 1050 Output Total 1000 Balance 1950 50 Meds/Results Medications: Active Medications Generic Name Dose Route Start Last Admin Trade Name Freq PRN Reason Stop Dose Admin Acetaminophen 650 mg 06/17/20 21:15 Tylenol Tablet PO Q4H PRN Mild Pain (1-3) or Fever Atorvastatin Calcium 20 mg 06/18/20 09:00 06/19/20 09:54 Lipitor PO 20 mg DAILY ALEX Administration Azithromycin 250 mg 06/19/20 09:00 06/19/20 09:55 Zithromax Tablet PO 06/22/20 09:01 250 mg DAILY
--- NOTE | 2020-06-19 15:06 | P.PNNP_ITS ---
Progress Note: A&P Assessment and Plan (1) Chronic kidney disease: Qualifiers: Chronic kidney disease stage: stage 4 (severe) Qualified Code(s): N18.4 - Chronic kidney disease, stage 4 (severe) Code(s): N18.9 - Chronic kidney disease, unspecified Status: Chronic Assessment and Plan: * was previously dialysis dependent * however, recovered renal function but with a new baseline creatinine around 4ish * no critical electrolytes, stable acid-base status, no evidence or uremia, and fluid status stable * had planned outpatient removal of HD catheter (prior to this admission) - will try to facilitate removal on this admission if possible (HD catheter placed by Dr. Atkinson) (2) SOB (shortness of breath): Code(s): R06.02 - Shortness of breath Status: Acute Assessment and Plan: * etiology??? -- initial thought was volume overload imaging studies (CXR, CT of chest...etc) not very impressive for this * elevated BNP not likely reliable in the setting of advanced CKD * cardiac or valve issues?? (does have aortic stenosis by last echo...) * beginnings of pneumonia?? - discussed with Dr. Camacho - started on antibiotics * follow I/Os with diuretic therapy (3) Hypertension: Code(s): I10 - Essential (primary) hypertension Status: Acute Assessment and Plan: * has been difficult to control in the past * reasonable control at this time * on PRN IV hydralazine + Avapro + coreg * follow trend of hemodynamics -- would avoid overcontrol in the setting of recovering kidney function (see #1) (4) Anemia: Code(s): D64.9 - Anemia, unspecified Status: Acute Assessment and Plan: * partly related to CKD * check iron studies and consider empiric Epogen * follow trend of H/H (5) Diabetes: Code(s): E11.9 - Type 2 diabetes mellitus without complications Status: Acute Assessment and Plan: * follow accuchecks * on Lantus and SSI Will continue to follow. Subjective Date/time seen: 06/19/20 15:06 Appears to be doing reasonably well; COVID-19 testing negative and off isolation; shortness of breath seems to be doing better in the last 24 hours; no apparent distress voiced on my visit. Exam Narrative: Exam Narrative: General: WD/WN male/female in NAD Heart: normal S1 and S2; no rub Lungs: clear anteriorly with decreased at base Abdomen: soft, nontender, nondistended, positive bowel sounds Extremities: no cyanosis or clubbing; no edema Skin: warm and dry Objective Data Vital Signs Vital Signs: Vital Signs Temp Pulse Resp BP Pulse Ox 06/19/20 13:55 36.7 C 96 18 124/83 97 06/19/20 09:57 98 06/19/20 06:00 36.5 C 81 18 176/100 H 100 06/18/20 22:00 36.1 C L 82 16 178/88 H 98 06/18/20 20:10 86 06/18/20 19:54 170/100 H 06/18/20 19:45 98 06/18/20 16:00 36.7 C 86 16 162/110 H 99 Intake/Output Intake/Output: Intake & Output 06/16/20 06/17/20 06/18/20 06/19/20 23:59 23:59 23:59 23:59 Intake Total 1950 1050 Output Total 1000 Balance 1950 50 Meds/Results Medications: Active Medications Generic Name Dose Route Start Last Admin Trade Name Freq PRN Reason Stop Dose Admin Acetaminophen 650 mg 06/17/20
--- NOTE | 2020-06-19 15:06 | PM.PNNEP ---
Progress Note: A&P Assessment and Plan (1) Chronic kidney disease: Qualifiers: Chronic kidney disease stage: stage 4 (severe) Qualified Code(s): N18.4 - Chronic kidney disease, stage 4 (severe) Code(s): N18.9 - Chronic kidney disease, unspecified Status: Chronic Assessment and Plan: was previously dialysis dependent however, recovered renal function but with a new baseline creatinine around 4ish no critical electrolytes, stable acid-base status, no evidence or uremia, and fluid status stable had planned outpatient removal of HD catheter (prior to this admission) - will try to facilitate removal on this admission if possible (HD catheter placed by Dr. Atkinson) (2) SOB (shortness of breath): Code(s): R06.02 - Shortness of breath Status: Acute Assessment and Plan: etiology??? -- initial thought was volume overload imaging studies (CXR, CT of chest...etc) not very impressive for this elevated BNP not likely reliable in the setting of advanced CKD cardiac or valve issues?? (does have aortic stenosis by last echo...) beginnings of pneumonia?? - discussed with Dr. Camacho - started on antibiotics follow I/Os with diuretic therapy (3) Hypertension: Code(s): I10 - Essential (primary) hypertension Status: Acute Assessment and Plan: has been difficult to control in the past reasonable control at this time on PRN IV hydralazine + Avapro + coreg follow trend of hemodynamics -- would avoid overcontrol in the setting of recovering kidney function (see #1) (4) Anemia: Code(s): D64.9 - Anemia, unspecified Status: Acute Assessment and Plan: partly related to CKD check iron studies and consider empiric Epogen follow trend of H/H (5) Diabetes: Code(s): E11.9 - Type 2 diabetes mellitus without complications Status: Acute Assessment and Plan: follow accuchecks on Lantus and SSI Will continue to follow. Subjective Date/time seen: 06/19/20 15:06 Appears to be doing reasonably well; COVID-19 testing negative and off isolation; shortness of breath seems to be doing better in the last 24 hours; no apparent distress voiced on my visit. Exam Narrative: Exam Narrative: General: WD/WN male/female in NAD Heart: normal S1 and S2; no rub Lungs: clear anteriorly with decreased at base Abdomen: soft, nontender, nondistended, positive bowel sounds Extremities: no cyanosis or clubbing; no edema Skin: warm and dry Objective Data Vital Signs Vital Signs: Vital Signs Temp Pulse Resp BP Pulse Ox 06/19/20 13:55 36.7 C 96 18 124/83 97 06/19/20 09:57 98 06/19/20 06:00 36.5 C 81 18 176/100 H 100 06/18/20 22:00 36.1 C L 82 16 178/88 H 98 06/18/20 20:10 86 06/18/20 19:54 170/100 H 06/18/20 19:45 98 06/18/20 16:00 36.7 C 86 16 162/110 H 99 Intake/Output Intake/Output: Intake & Output 06/16/20 06/17/20 06/18/20 06/19/20 23:59 23:59 23:59 23:59 Intake Total 1950 1050 Output Total 1000 Balance 1950 50 Meds/Results Medications: Active Medications Generic Name Dose Route Start Last Admin Trade Name Freq PRN Reason Stop Dose Admin Acetaminophen 650 mg 06/17/20 21:15 Tylenol Tablet PO Q4H PRN Mild Pain (1-3) or Fever Atorvastatin Calcium 20 mg 06/18/20 09:00 06/19/20 09:54 Lipitor PO 20 mg DAILY ALEX Administration Azithromycin 250 mg 06/19/20 09:00 06/19/20 09:55 Zithromax Tablet PO 06/22/20 09:01 250 mg DAILY ALEX Administration Bumetanide 1 mg 06/18/20 09:00 06/19/20 09:55 Bumex Po PO 1 mg BID ALEX Administration Carvedilol 12.5 mg 06/18/20 09:00 06/19/20 09:57 Coreg PO 12.5 mg Q12HR ALEX Administration Dextrose 12.5 gm 06/18/20 02:35 Dextrose 50% Syringe IV PUSH PRN PRN Hypoglycemia Protocol Famotidine 20 mg 06/18/20 09:00 06/19/20 09:54 Pep
[2020-06-19 18:06] LABS: Glucose Point of Care 180 (65-105)
[2020-06-19 20:43] VITALS: BP 158/87; PULSE 84; RESP 20; TEMP 36.5; O2SAT 97
[2020-06-19 21:31] VITALS: PULSE 84
[2020-06-19 21:32] LABS: Glucose Point of Care 276 (65-105)
[2020-06-20 05:17] VITALS: BP 171/91; PULSE 68; RESP 18; TEMP 36.6; O2SAT 94
[2020-06-20 06:48] LABS: Hematocrit 31.7 % (42.0-52.0); Hemoglobin 9.9 g/dL (14.0-18.0); Mean Corpuscular HGB Conc 31.2 g/dl (32-36); Mean Corpuscular Hemoglobin 23.6 pg (26-34); Mean Corpuscular Volume 75.7 fl (80-100); Mean Platelet Volume 9.7 fl (7.4-10.4); Platelet Count Result 222 k/mm3 (150-375); Red Blood Count 4.19 M/mm3 (4.6-6.20); Red Cell Distribution Width 14.6 % (11.5-14.5); White Blood Count 6.9 K/mm3 (4.5-10.0)
[2020-06-20 06:59] LABS: Albumin Level 3.5 g/dL (3.5-5.1); Anion Gap 11 mmol/L (8-16); Blood Urea Nitrogen 47 mg/dL (9-20); Calcium 8.3 mg/dL (8.4-10.2); Carbon Dioxide 22 mmol/L (22-30); Chloride 106 mmol/L (98-107); Estimated CRCL calculation 26 ml/min; Estimated Glomerular Filt Rate 18; Glucose 264 mg/dL (75-110); Phosphorus 5.6 mg/dL (2.5-4.5); Potassium 3.7 mmol/L (3.4-5.0); Sodium 139 mmol/L (137-145)
[2020-06-20] MEDS: hydrALAZINE HCL 20 MG/ML VIAL 10 MG IV PUSH (07:14)
[2020-06-20 08:37] LABS: Glucose Point of Care 187 (65-105)
[2020-06-20] MEDS: AZITHROMYCIN 250 MG TABLET PO (09:04)
[2020-06-20] MEDS: ATORVASTATIN 20 MG TABLET PO (09:04)
[2020-06-20] MEDS: IRBESARTAN 150 MG TABLET PO (09:05)
[2020-06-20] MEDS: FAMOTIDINE 20 MG TABLET PO (09:05)
[2020-06-20 09:06] VITALS: PULSE 94
[2020-06-20] MEDS: GABAPENTIN 300 MG CAPSULE PO ×2 (09:06→12:36)
[2020-06-20] MEDS: HEPARIN SODIUM 5,000 UNITS/ML VIAL 5000 UNITS SUB-Q (09:06)
[2020-06-20] MEDS: carvediloL 12.5 MG TABLET PO (09:06)
[2020-06-20] MEDS: VENLAFAXINE HCL 75 MG TABLET 150 MG PO (09:06)
[2020-06-20] MEDS: BUMETANIDE 1 MG TABLET PO (09:08)
[2020-06-20] MEDS: INSULIN GLARGINE (*BKC) 100 UNITS/ML 22 UNITS SUB-Q (09:09)
[2020-06-20 13:36] LABS: Glucose Point of Care 167 (65-105)
[2020-06-20 14:00] VITALS: BP 164/82; PULSE 98; RESP 20; TEMP 36.3; O2SAT 99
--- NOTE | 2020-06-20 14:09 | PM.CNGS ---
Assessment and Plan Assessment and plan (1) CKD (chronic kidney disease): Code(s): N18.9 - Chronic kidney disease, unspecified Status: Acute Assessment and Plan: Since patient has not required hemodialysis over the past month or so, will plan to remove tunnel dialysis catheter at the bedside today. Keeping this in will only pose an infection risk therefore it is reasonable to remove this at this time. I discussed with patient that he may eventually require fistula or other dialysis access if his kidney function declines. He will be following up with Nephrology for further medical care of his chronic kidney disease. (2) Pneumonia: Code(s): J18.9 - Pneumonia, unspecified organism Status: Acute (3) Diabetes: Code(s): E11.9 - Type 2 diabetes mellitus without complications Status: Acute History of Present Illness Consult details Consult date: 06/20/20 Requesting physician: Camila Frazier MD Narrative: Maxime is a 54-year-old man who is currently hospitalized for pneumonia. He has a history of chronic kidney disease and recently required hemodialysis. He had a tunnel dialysis catheter placed several months ago and was receiving hemodialysis through this. His kidney function has slightly improved and he has not required hemodialysis in the past 6 weeks. Tunnel dialysis catheter removal was requested nephrology. Review of Systems Review of Systems: All systems reviewed & are unremarkable except as noted in HPI and below Constitutional: Constitutional: Denies chills and Denies fever(s) Cardiovascular: Cardiovascular: Denies chest pain Respiratory: Respiratory: Reports cough PMFSH Past Medical History Medical History Aortic valve stenosis Arthritis Chronic kidney disease Diabetic foot ulcer Diabetic foot ulcer Probing to bone Essential (primary) hypertension FHx: prostate cancer Finger fracture GERD (gastroesophageal reflux disease) Head ache Heart murmur Hiatal hernia History of cerebrovascular accident (CVA) in adulthood Hy kid NOS w cr kid I-IV Impingement syndrome of left shoulder Iron deficiency Long-term insulin use Microcytic anemia Mixed hyperlipidemia Neuropathy Peripheral vascular disease (Unknown) Pneumonia Prostate cancer screening 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 2 diabetes mellitus with hyperglycemia Surgical History Surgical History Amputation of left great toe History of carpal tunnel release History of tonsillectomy Family History Family History Mother Family history of diabetes mellitus in first degree relative Family history of malignant neoplasm of breast in first degree relative Hypertension Family history of coronary artery disease Family history of arthritis Father Hypertension Malignant neoplasm of prostate Social History Social History Smoking packs per day: 2 Smoking cigarettes per day: 40.0 Years smoked: 25 Smoking pack-years: 50.00 Smoking status: Former smoker Tobacco type: cigarettes Smoking end date: 10/23/87 Alcohol intake: never Substance use: never Substance use type: does not use Gender identity (if verbalized by the patient): Male Spiritual care concerns: No Agree to blood products: Yes Meds Home Medications and Allergies Home Medications Medication Instructions Recorded Confirmed Type venlafaxine 150 mg PO BID 08/30/19 06/17/20 History pen needle, diabetic 31 gauge x #30 each 09/11/19 06/17/20 Rx 5/16 insulin syringe-needle U-100 0.5 #200 each 01/01/20 06/17/20 Rx mL 29 gauge x 1/2 gabapentin 300 mg capsule 300 mg PO TID cap 03/30/20 06/17/20 History carvedilol 12.5 mg tablet 12.5 mg PO Q12H #60 tablet 06
--- NOTE | 2020-06-20 14:14 | P.OP_ITS ---
Procedure Note - Detailed Date of procedure: 06/20/20 Pre-op diagnosis: CKD Post-op diagnosis: same Procedure performed: removal of tunneled dialysis catheter Description of procedure: * procedure as well as risks, benefits, and alternatives were discussed with the patient. Written consent was obtained and placed in chart prior to procedure. Patient was placed supine in his hospital bed. Time-out was done to confirm patient and procedure. His right neck area and upper chest area was prepped and draped in sterile fashion using Betadine prep. The cuff of the tunneled dialysis catheter was palpated at the right clavicle. 1% lidocaine was infiltrated directly over this. A 1 cm incision was made over the cuff using a 15 blade scalpel. The cuff was carefully dissected free of the surrounding scar tissue to free up the catheter. Once the cuff was freed up completely, the catheter was able to slide freely along its tract. The sutures that were holding the catheter in place at the skin were removed using scissors. The catheter was then gently withdrawn while holding pressure at the insertion site at the neck. Pressure was then held at the neck for 5 minutes. No bleeding was identified. 1/2 inch Steri-Strips were then applied over the incision on the chest. 4 x 4 gauze was applied followed by tape. Anesthesia: local ( 1% lidocaine) Surgeon: Raul Arellano DO Estimated blood loss (mL): 1 Complications: No immediate complications Condition: stable Disposition: no change Findings: * right internal jugular tunnel dialysis catheter was removed at the bedside. Patient tolerated procedure well. Will be okay to discharge today with instructions to remove bandage tomorrow and may shower tomorrow. Steri- Strips will fall off on their own in the next 1-2 weeks. He may follow up as needed.
--- NOTE | 2020-06-20 14:19 | PM.PNNEP ---
Progress Note: A&P Assessment and Plan (1) Chronic kidney disease: Qualifiers: Chronic kidney disease stage: stage 4 (severe) Qualified Code(s): N18.4 - Chronic kidney disease, stage 4 (severe) Code(s): N18.9 - Chronic kidney disease, unspecified Status: Chronic Assessment and Plan: was previously dialysis dependent however, recovered renal function but with a new baseline creatinine around 4ish (and it is possible this could improve further with time) no critical electrolytes, stable acid-base status, no evidence or uremia, and fluid status stable Surgery has seen for tunneled HD catheter removal (since it is a source of infection AND it is no longer being used) - procedure done at bedside this afternoon (2) SOB (shortness of breath): Code(s): R06.02 - Shortness of breath Status: Acute Assessment and Plan: etiology??? -- initial thought was volume overload imaging studies (CXR, CT of chest...etc) not very impressive for this elevated BNP not likely reliable in the setting of advanced CKD suspected beginnings of pneumonia - clinical improvement with ceftriaxone + azithromycin follow I/Os with diuretic therapy (reasonable at this time) (3) Hypertension: Code(s): I10 - Essential (primary) hypertension Status: Acute Assessment and Plan: has been difficult to control in the past doing better at this time on PRN IV hydralazine + Avapro + Coreg follow trend of hemodynamics -- would avoid overcontrol in the setting of recovering kidney function (see #1) (4) Anemia: Code(s): D64.9 - Anemia, unspecified Status: Acute Assessment and Plan: partly related to CKD follow trend of H/H (5) Diabetes: Code(s): E11.9 - Type 2 diabetes mellitus without complications Status: Acute Assessment and Plan: follow accuchecks on Lantus and SSI OK to discharge from renal perspective - he has follow-up with me in clinic already scheduled. Will continue to follow. Subjective Date/time seen: 06/20/20 14:19 Appears to be doing well at this time; no issues or problems overnight or earlier this AM, breathing appears better since admission; no apparent distress voiced. Exam Narrative: Exam Narrative: General: WD/WN male/female in NAD Heart: normal S1 and S2; no rub Lungs: clear anteriorly with decreased at base Abdomen: soft, nontender, nondistended, positive bowel sounds Extremities: no cyanosis or clubbing; no edema Skin: warm and dry Objective Data Vital Signs Vital Signs: Vital Signs Temp Pulse Resp BP Pulse Ox 06/20/20 14:00 36.3 C L 98 20 164/82 H 99 06/20/20 09:06 94 06/20/20 05:17 36.6 C 68 18 171/91 H 94 06/19/20 21:31 84 06/19/20 20:43 36.5 C 84 20 158/87 H 97 Intake/Output Intake/Output: Intake & Output 06/17/20 06/18/20 06/19/20 06/20/20 23:59 23:59 23:59 23:59 Intake Total 1950 2090 490 Output Total 1600 Balance 1950 490 490 Meds/Results Medications: Active Medications Generic Name Dose Route Start Last Admin Trade Name Freq PRN Reason Stop Dose Admin Acetaminophen 650 mg 06/17/20 21:15 Tylenol Tablet PO Q4H PRN Mild Pain (1-3) or Fever Atorvastatin Calcium 20 mg 06/18/20 09:00 06/20/20 09:04 Lipitor PO 20 mg DAILY ALEX Administration Azithromycin 250 mg 06/19/20 09:00 06/20/20 09:04 Zithromax Tablet PO 06/22/20 09:01 250 mg DAILY ALEX Administration Bumetanide 1 mg 06/18/20 09:00 06/20/20 09:08 Bumex Po PO 1 mg BID ALEX Administration Carvedilol 12.5 mg 06/18/20 09:00 06/20/20 09:06 Coreg PO 12.5 mg Q12HR ALEX Administration Dextrose 12.5 gm 06/18/20 02:35 Dextrose 50% Syringe IV PUSH PRN PRN Hypoglycemia Protocol Famotidine 20 mg 06/18/20 09:00 06/20/20 09:05 Pepcid PO 20 mg BID ALEX Administration Gabapentin 300 mg 06/18/20
--- NOTE | 2020-06-20 14:36 | PM.DS ---
DS: Admitting Diagnosis Admitting Diagnosis Admitting Diagnosis: CKD DS: Discharge Diagnosis Discharge Diagnosis (1) Anemia: Code(s): D64.9 - Anemia, unspecified Status: Acute Assessment and Plan: related to CKD (2) Diabetes: Code(s): E11.9 - Type 2 diabetes mellitus without complications Status: Acute Assessment and Plan: SSI, accuchecks. AC and HS (3) Dyspnea: Code(s): R06.00 - Dyspnea, unspecified Status: Acute Assessment and Plan: Likley secondary to CAP, pt is negative for the covid (4) Hypertension: Code(s): I10 - Essential (primary) hypertension Status: Acute Assessment and Plan: Bp running high at the moment pt to have labetolol and hydralazine PRN lasix PRN and irbesartan (5) Pneumonia: Code(s): J18.9 - Pneumonia, unspecified organism Status: Acute Assessment and Plan: BC not resulted yet, pt is on IV rocephin and zithromax oral day 2 (6) CKD (chronic kidney disease): Code(s): N18.9 - Chronic kidney disease, unspecified Status: Acute Assessment and Plan: STAGE 5 pt just came off dialysis, dialysis is on hold presently DS: Summary Hospital Course Reason for hospitalization: Chief complaint: SOB Narrative: Pankaj Bautista is a 54 year old male had histor of Osteomyelitis of foot in december. no trouble right now. Reason of admission now is sob, SOB been going on for 3-4 weeks pt was seeing Dr Smith was giving him ABX ? pneumonia ? pulmonary edema but his CXR looked good. Pt felt better when he was on antibitiocs. 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 Status at Discharge Functional status at discharge: independent ambulation Overall status at discharge: patient is back to baseline Time Spent with Patient Time attestation: Total time spent providing and/or coordinating discharge services: Patient was seen and examined at the time of the discharge Condition at discharge is stable Code status: Full code. Time spent preparing discharge summary, discharge medications, discussing discharge planning with case investigator and patient is 35 minutes. Time spent: Greater than 30 minutes Exam Const: General: comfortable and no acute distress HENMT: General nose exam: Normal nares present Mouth: Yes moist mucous membranes Eyes: Sclera: sclerae normal Neck: Neck: supple Resp: Effort & Inspection: normal respiratory effort Auscultation: clear to auscultation bilaterally Cardio: Rate: regular rate Rhythm: regular rhythm GI: GI Palp: Yes Soft to palpation Auscultation: normal bowel sounds Skin: General skin exam: normal color Neuro: Sensory Exam: normal sensation Extrem: General: normal to inspection Psych: Affect: Anxious affect present DS: Data Data Completed and Pending Labs on day of discharge: Labs from last 24 hours 06/20/20 06/20/20 06/20/20 12:35 08:35 06:20 WBC 6.9 RBC 4.19 L Hgb 9.9 L Hct 31.7 L MCV 75.7 L MCH 23.6 L MCHC 31.2 L RDW 14.6 H Plt Count 222 MPV 9.7 Sodium Potassium Chloride Carbon Dioxide Anion Gap BUN Creatinine Estim Creat Clear Calc Estimated GFR Glucose POC Capillary Glucose 167 H 187 H Calcium Phosphorus Albumin 06/20/20 06/19/20 06/19/20 06:20 21:30 18:04 WBC RBC Hgb Hct MCV MCH MCHC RDW Plt Count MPV Sodium 139 Potassium 3.7 Chloride 106 Carbon Dioxide 22 Anion
== END 2020-06-20 15:15 | disposition home or self-care (01) | DRG 194 ==
LOC: ANHED 21:00 → ANH3MEDSUR 21:35
PROVIDERS: Emergency Medicine Emergency Medical Services; Family Medicine; General Practice; Internal Medicine Nephrology; Admitting Provider Internal Medicine; Emergency Provider Emergency Medicine; PCP Family Medicine; Visit Provider Family Medicine
DX: J18.9 Pneumonia, unspecified organism; I12.0 Hypertensive chronic kidney disease with stage 5 chronic kidney disease or end stage renal disease; N18.5 Chronic kidney disease, stage 5; Z20.828 Contact with and (suspected) exposure to other viral communicable diseases; D63.1 Anemia in chronic kidney disease; E11.22 Type 2 diabetes mellitus with diabetic chronic kidney disease; E11.311 Type 2 diabetes mellitus with unspecified diabetic retinopathy with macular edema; E11.40 Type 2 diabetes mellitus with diabetic neuropathy, unspecified; I35.0 Nonrheumatic aortic (valve) stenosis; E78.2 Mixed hyperlipidemia; Z79.4 Long term (current) use of insulin; Z79.899 Other long term (current) drug therapy; Z85.46 Personal history of malignant neoplasm of prostate; Z86.73 Personal history of transient ischemic attack (TIA), and cerebral infarction without residual deficits; Z87.891 Personal history of nicotine dependence
CPT/HCPCS: 36415; 71046; 71250; 80048; 80069; 80074; 80076; 82728; 83615; 83880; 85025; 85027; 85380; 85610; 85730; 86140; 86706; 87040; 87635; 93005; 96374; 96375; 99285; A9270; C9803; G0378; J0360; J0696; J1644; J1815; J1940; U0003

== ENCOUNTER 2020-07-07 15:07 | Inpatient (IN) | payer OTHER, SELFPAY ==
[2020-07-07] VITALS (30 sets, daily range): BP systolic 145–231; BP diastolic 98–139; PULSE 86–109; RESP 15–30; TEMP 36.6; O2SAT 90–100; BMI 31.4
--- NOTE | ~2020-07-07 | US_ITS ---
EXAMINATION: US arterial duplex LE RT DATE: 07/11/2020 13:06 INDICATION: Right common femoral artery bruit. TECHNIQUE: Multiple grayscale and Doppler ultrasound images of the right inguinal region were obtaine d. COMPARISON: None FINDINGS: The right common femoral vein and femoral vein are patent. Right common femoral artery, sup erficial femoral artery, and deep femoral artery are patent. There is no pseudoaneurysm or hematoma. IMPRESSION: 1. No pseudoaneurysm. Reviewed, dictated and finalized at location A. IMPRESSION: 1. No pseudoaneurysm.
--- NOTE | ~2020-07-07 | XR_ITS ---
EXAMINATION: XR chest 1V portable DATE: 07/10/2020 21:45 INDICATION: Congestive heart failure. TECHNIQUE: A single frontal view of the chest was obtained. COMPARISON: Chest 2 views 07/07/2020 FINDINGS: There is a diffuse interstitial pattern in the lungs, consistent with mild pulmonary edema. Calcified right lung nodules and calcified right hilar lymph nodes are consistent with old granuloma tous disease. No pleural effusion or pneumothorax. The heart size is normal. IMPRESSION: 1. Mild pulmonary edema with interval improvement. Reviewed, dictated and finalized at location A.
--- NOTE | ~2020-07-07 | XR_ITS ---
EXAMINATION: XR chest 2V DATE: 07/07/2020 17:58 INDICATION: Shortness of breath. TECHNIQUE: Frontal and lateral views of the chest were obtained. COMPARISON: Chest 2 views 06/16/2020, 06/17/2020 FINDINGS: There are interstitial opacities in the mid and lower lung zones, consistent with mild pulm onary edema. No pleural effusion or pneumothorax. The heart size is normal. Calcified right hilar lym ph nodes are consistent with old granulomatous disease. IMPRESSION: 1. Mild pulmonary edema. Reviewed, dictated and finalized at location A. IMPRESSION: 1. Mild pulmonary edema.
--- NOTE | ~2020-07-07 | XR_ITS ---
XR chest 2V DATE: 07/11/2020 08:05 INDICATION: Shortness of breath, hypertension. Chronic kidney disease. TECHNIQUE: PA and lateral views COMPARISON: 07/10/2020 portable AP chest FINDINGS: Normal heart size. No hilar or mediastinal enlargement. No pulmonary infiltrate or consolid ation, pleural effusion or pulmonary vascular congestion or pneumothorax. There is old pulmonary gran ulomatous disease including calcified right pulmonary granulomas, calcified subcarinal and right rashad r nodes. IMPRESSION: No active cardiopulmonary disease Reviewed, dictated and finalized at location A.
--- NOTE | ~2020-07-07 | NM_ITS ---
EXAMINATION: NM pulmonary perfusion DATE: 07/07/2020 19:02 INDICATION: Shortness of breath. TECHNIQUE: 5.18 mCi Tc-99m MAA was administered intravenously for perfusion images. Scintigraphic im ages of the chest were obtained. COMPARISON: chest two views 07/07/20 FINDINGS: Perfusion images show a small defect and a moderate-sized defect in left lower lobe. ] IMPRESSION: 1. Nondiagnostic (low or intermediate probability). Reviewed, dictated and finalized at location A.
--- NOTE | ~2020-07-07 | NM_ITS ---
EXAMINATION: NM luis stress w perfusion DATE: 07/09/2020 16:36 INDICATION: Chest pain. TECHNIQUE: Rest images were obtained following intravenous administration of 8 mCi Tc99m tetrofosmin (Myoview). The patient was infused intravenously with Lexiscan (regadenoson). Then, 28.8 mCi Tc99m te trofosmin (Myoview) was administered intravenously, and stress images were obtained. Data was reconst ructed into short axis and horizontal and vertical long axis SPECT images. Gated SPECT images were al so obtained. COMPARISON: Chest CT 06/17/2020, myocardial perfusion imaging 09/08/2011 FINDINGS: There is a small, mild, reversible perfusion defect involving left ventricular apex, consis tent with ischemia. There is a moderate-sized, mild, fixed perfusion defect involving inferolateral a nd anterolateral portillo of left ventricle, consistent with infarct. There is global hypokinesis. Lef t ventricular ejection fraction measures 30%. IMPRESSION: 1. Small area of mild ischemia involving left ventricular apex. 2. Moderate-sized area of mild infarct involving inferolateral and anterolateral portillo of left ventri nitish. 3. Global hypokinesis with left ventricular ejection fraction measuring 30%. Reviewed, dictated and finalized at location A. IMPRESSION: 1. Small area of mild ischemia involving left ventricular apex. 2. Moderate-sized area of mild infarct involving inferolateral and anterolatera l portillo of left ventricle. 3. Global hypokinesis with left ventricular ejection fraction measuring 30%.
--- NOTE | ~2020-07-07 | US_ITS ---
EXAMINATION: US renal BI DATE: 07/08/2020 14:58 INDICATION: Abnormal kidney function tests. TECHNIQUE: Multiple ultrasound grayscale images of the kidneys were obtained. COMPARISON: Ultrasound kidneys 02/05/2020 FINDINGS: The right kidney measures 10.6 x 5.9 x 5.1 cm. The left kidney measures 10.7 x 6.2 x 5.7 cm. The kidn eys demonstrate normal parenchymal echogenicity. There is no hydronephrosis. The bladder is normal. IMPRESSION: 1. Normal kidneys. No hydronephrosis. Reviewed, dictated and finalized at location A.
--- NOTE | 2020-07-07 16:10 | ECG_ITS ---
Measurements Intervals [place] Rate: 93 P: 7 ME: 146 QRS: 24 QRSD: 91 T: 93 QT: 420 QTc: 524 Interpretive Statements SINUS RHYTHM ATRIAL PREMATURE COMPLEX BORDERLINE ST-T WAVE ABNORMALITY- HIGH LATERAL LEADS PROLONGED QT INTERVAL ABNORMAL ECG Electronically Signed On 07-07-2020 16:43:57 CDT by Jairo French D.O.
[2020-07-07 16:39] LABS: Basophils Percent Auto 0.5 % (0.2-1.2); Eosinophils Absolute Auto 0.1 K/mm3 (0-0.3); Eosinophils Percent Auto 1.6 % (0-4.4); Hematocrit 30.1 % (42.0-52.0); Hemoglobin 9.5 g/dL (14.0-18.0); Immature Granulocyte Absolute 0.03 K/mm3 (0.00-0.031); Immature Granulocyte Percent A 0.4 % (0-0.5); Lymphocytes Absolute Auto 2.66 K/mm3 (0.9-3.2); Lymphocytes Percent Auto 33.4 % (18.3-44.2); Mean Corpuscular HGB Conc 31.6 g/dl (32-36); Mean Corpuscular Hemoglobin 23.9 pg (26-34); Mean Corpuscular Volume 75.6 fl (80-100); Mean Platelet Volume 9.8 fl (7.4-10.4); Monocytes Absolute Auto 0.8 K/mm3 (0.1-0.6); Monocytes Percent Auto 10.2 % (2.6-8.5); Neutrophils Absolute Auto 4.3 K/mm3 (1.3-6.7); Neutrophils Percent Auto 53.9 % (45.5-73.1); Platelet Count Result 216 k/mm3 (150-375); Red Blood Count 3.98 M/mm3 (4.6-6.20); Red Cell Distribution Width 14.9 % (11.5-14.5)
[2020-07-07 16:51] LABS: Anion Gap 9 mmol/L (8-16); Blood Urea Nitrogen 53 mg/dL (9-20); Calcium 7.9 mg/dL (8.4-10.2); Carbon Dioxide 20 mmol/L (22-30); Chloride 109 mmol/L (98-107); Estimated CRCL calculation 21 ml/min; Estimated Glomerular Filt Rate 13; Glucose 200 mg/dL (75-110); Potassium 3.8 mmol/L (3.4-5.0); Sodium 138 mmol/L (137-145)
--- NOTE | 2020-07-07 17:02 | PC.NURSE ---
Called lab to add on D dimer and bnp
[2020-07-07 17:21] LABS: NT Pro B Type Natriuretic Pept 26600 PG/ML (5-100)
[2020-07-07 17:22] LABS: D Dimer 0.87 ug/mL (<0.48)
--- NOTE | 2020-07-07 17:25 | PC.NURSE ---
called lab to add on trop baseline
--- NOTE | 2020-07-07 17:40 | ED.GENADULT ---
HPI - General Adult General Chief complaint: Shortness of Breath/Dyspnea Stated complaint: SOB, RECENT PNEUMONIA Time Seen by Provider: 07/07/20 16:50 Source: patient History of Present Illness HPI narrative: Patient is a 54 y/o male complaining of moderate SOB since last night. He states that his SOB is worse with laying down and with exertion. He has some cough and intermittent chest pain. Related Data Home Medications Medication Instructions Recorded Confirmed venlafaxine 150 mg PO BID 08/30/19 07/07/20 gabapentin 300 mg capsule 300 mg PO TID cap 03/30/20 07/07/20 Lantus Solostar U-100 Insulin 22 unit SUBCUT BID 04/03/20 07/07/20 bumetanide 1 mg PO BID 06/17/20 07/07/20 Allergies Allergy/AdvReac Type Severity Reaction Status Date / Time No Known Allergies Allergy Verified 06/25/20 10:16 [facility] Past Medical History Medical History (Updated 07/08/20 @ 21:37 by Luzma Booth MD) Aortic valve stenosis bicuspid aortic valve Arthritis Chronic kidney disease Diabetic foot ulcer Diabetic foot ulcer Probing to bone Essential (primary) hypertension FHx: prostate cancer Finger fracture GERD (gastroesophageal reflux disease) Head ache Heart murmur Hiatal hernia History of cerebrovascular accident (CVA) in adulthood Hy kid NOS w cr kid I-IV Impingement syndrome of left shoulder Iron deficiency Long-term insulin use Microcytic anemia Mixed hyperlipidemia Neuropathy Peripheral vascular disease (Unknown) Pneumonia Prostate cancer screening 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 2 diabetes mellitus with hyperglycemia Surgical History Surgical History (Updated 07/08/20 @ 10:50 by Yulissa Oropeza MD) Amputation of left great toe osteomyelitis, 2020 History of carpal tunnel release History of tonsillectomy Family History Family History (Updated 07/08/20 @ 10:50 by Yulissa Oropeza MD) Mother Family history of diabetes mellitus in first degree relative Family history of malignant neoplasm of breast in first degree relative Hypertension Family history of coronary artery disease Family history of arthritis Alive and well Father Hypertension Malignant neoplasm of prostate Social History Social History (Updated 07/08/20 @ 10:51 by Yulissa Oropeza MD) Social History: He lives with his in a house. Has 3 adult children and 2 step children. Worked for 16 years at the [employer]. Smoking packs per day: 2 Smoking cigarettes per day: 40.0 Years smoked: 25 Smoking pack-years: 50.00 Smoking status: Former smoker Tobacco type: cigarettes Smoking end date: 10/23/87 Alcohol intake: never Substance use: never Substance use type: does not use Living arrangements: with family Gender identity (if verbalized by the patient): Male Spiritual care concerns: No Agree to blood products: Yes Course Consultations Consultation #1: Discussed with Dr. Colindres, who agrees to consult and recommends continuing with diuresis for now. Date: 07/07/20 Time: 18:26 Consultation #2: Discussed with Dr. Adams, who agrees to admit. Date: 07/07/20 Time: 19:46 Vital Signs Vital signs: Vital Signs Temperature 36.6 C 07/07/20 16:28 Pulse Rate 93 07/07/20 16:28 Respiratory Rate 18 07/07/20 16:28 Blood Pressure 168/101 H 07/07/20 16:28 Pulse Oximetry 100 07/07/20 16:28 Temperature 36.7 C 07/08/20 20:00 Pulse Rate 98 07/08/20 20:00 Respiratory Rate 20 07/08/20 20:00 Blood Pressure 172/102 H 07/08/20 20:00 Pulse Oximetry 99 07/08/20 20:00 Medical Decision Making Vital Signs Vital Signs: Vital Signs Temperature 36.6 C 07/07/20 16:28 Pulse Rate 93 07/07/20 16:28 Respiratory Rate 18 07/07/20 16:28 Blood Pressure 168/101 H 07/07/20 16:28 Pulse Oximetry 100 07/07/20 16:28 Temperature 36.7 C 07/08/20 20:00 Pulse Rate 98 07/08/20 20:00 Respiratory Rate 20 07/08/20 20:00 Blood Press
[2020-07-07 17:47] LABS: Troponin I 0.081 ng/mL (0.000-0.034)
[2020-07-07] MEDS: cloNIDine HCL 0.2 MG TABLET PO (19:12)
[2020-07-07] MEDS: FUROSEMIDE INJ 40 MG/4 ML VIAL IV PUSH (19:12)
[2020-07-07] MEDS: amLODIPine BESYLATE 5 MG TABLET 10 MG PO (19:45)
[2020-07-07] MEDS: hydrALAZINE HCL 20 MG/ML VIAL IV PUSH (19:46)
[2020-07-07] MEDS: LABETALOL HCL INJ 100 MG/20 ML VIAL 20 MG IV PUSH (20:43)
[2020-07-07 21:00] LABS: Troponin I 0.101 ng/mL (0.000-0.034)
--- NOTE | 2020-07-07 21:10 | PM.IMHP ---
H&P: HPI History of Present Illness Date/Time: 07/07/20 21:10 Chief complaint: hypertensive urgency, ckd Narrative: This is a 54 year old Diabetic male with CKD stage IV, Diastolic heart failure and moderate aortic stenosis who was previously on dialysis about 8 weeks ago and recently admitted for pneumonia and now returned with shortness of breath for the past few weeks. He complains that his shortness of breath is exertional and positional. He cannot tolerate laying down and exertion causes increased shortness of breath. The patient believes that his respiratory symptoms began to increase after he completed his course of antibiotics. The patient mentions that his blood pressure was previously well controlled up until he had an amputation done in February when he was taken off of his blood pressure medications. Since then he tells me he has had his blood pressure medications changed multiple times and he does not even remember his medications off the top of his head. he claims that he has been taking his medications as prescribed. On arrival to the emergency room the patient was found to have severely elevated blood pressure with systolic blood pressures in the 230s which finally came down with multiple doses of antihypertensives tonight. The patient was also found to have mild bilateral pulmonary edema on chest x-ray. On further questioning he also admits that recently he has had intermittent right and left-sided chest pain. His chest pain typically lasts for a few moments and then goes away and will happen at any moment. routine labs or obtained demonstrated acute on chronic renal failure, an elevated troponin of 0.081 and elevated blood glucose of 200. The patient was treated with Lasix IV and he tells me he has already filled the urinal twice. Tonight he denies any significant coughing, wheezing, fevers, chills, abdominal pain, nausea, vomiting, dysuria, hematuria, or rectal bleeding. Currently the patient is saturating 99% on room air and in no acute respiratory distress. He states he feels much better after being treated with Lasix. Review of Systems Review of Systems: All systems reviewed & are unremarkable except as noted in HPI and below PMFSH Past Medical History Medical History Aortic valve stenosis Arthritis Chronic kidney disease Diabetic foot ulcer Diabetic foot ulcer Probing to bone Essential (primary) hypertension FHx: prostate cancer Finger fracture GERD (gastroesophageal reflux disease) Head ache Heart murmur Hiatal hernia History of cerebrovascular accident (CVA) in adulthood Hy kid NOS w cr kid I-IV Impingement syndrome of left shoulder Iron deficiency Long-term insulin use Microcytic anemia Mixed hyperlipidemia Neuropathy Peripheral vascular disease (Unknown) Pneumonia Prostate cancer screening 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 2 diabetes mellitus with hyperglycemia Surgical History Surgical History Amputation of left great toe History of carpal tunnel release History of tonsillectomy Family History Family History Mother Family history of diabetes mellitus in first degree relative Family history of malignant neoplasm of breast in first degree relative Hypertension Family history of coronary artery disease Family history of arthritis Father Hypertension Malignant neoplasm of prostate Social History Social History Smoking packs per day: 2 Smoking cigarettes per day: 40.0 Years smoked: 25 Smoking pack-years: 50.00 Smoking status: Former smoker Tobacco type: cigarettes Smoking end date: 10/23/87 Alcohol intake: never Substance use: never Substance use type: does not use Gender identity (if verbalized by the patient):
--- NOTE | 2020-07-07 21:48 | ECG_ITS ---
Measurements Intervals [place] Rate: 97 P: 31 OR: 161 QRS: 18 QRSD: 104 T: 69 QT: 374 QTc: 477 Interpretive Statements SINUS RHYTHM ATRIAL PREMATURE COMPLEX NONSPECIFIC T-WAVE ABNORMALITY- HIGH LATERAL LEADS BASELINE ARTIFACT- I, III, AVR, AVL, V1 BORDERLINE ECG Electronically Signed On 07-08-2020 6:39:20 CDT by Jairo French D.O.
--- NOTE | 2020-07-07 22:28 | ADMGEN ---
This patient, Pankaj Bautista, was admitted to IMU Room 232-01. Patient/family oriented to hospital policies and general routines including ID bracelet, bed and alarms, visiting hours, pain management, procedures, bathroom and other care routines, personal items, smoking policy, room service/diet, and visiting hours. Valuables list has been completed. Information on how to activate the Rapid Response Team has been discussed. Patient/Family are encouraged to report perceived risks to care and to ask questions if they do not understand what they are told or what they should do.
[2020-07-08] VITALS (12 sets, daily range): BP systolic 124–185; BP diastolic 85–120; PULSE 74–106; RESP 18–20; TEMP 36.4–36.7; O2SAT 95–100
[2020-07-08 00:09] LABS: Troponin I 0.098 ng/mL (0.000-0.034)
[2020-07-08 05:34] LABS: Basophils Absolute Auto 0.1 K/mm3 (0.0-0.1); Basophils Percent Auto 0.7 % (0.2-1.2); Eosinophils Absolute Auto 0.1 K/mm3 (0-0.3); Eosinophils Percent Auto 1.7 % (0-4.4); Hematocrit 31.8 % (42.0-52.0); Hemoglobin 9.7 g/dL (14.0-18.0); Immature Granulocyte Absolute 0.02 K/mm3 (0.00-0.031); Immature Granulocyte Percent A 0.2 % (0-0.5); Lymphocytes Absolute Auto 2.24 K/mm3 (0.9-3.2); Lymphocytes Percent Auto 27.7 % (18.3-44.2); Mean Corpuscular HGB Conc 30.5 g/dl (32-36); Mean Corpuscular Hemoglobin 23.6 pg (26-34); Mean Corpuscular Volume 77.4 fl (80-100); Mean Platelet Volume 10.4 fl (7.4-10.4); Monocytes Absolute Auto 0.8 K/mm3 (0.1-0.6); Monocytes Percent Auto 9.4 % (2.6-8.5); Neutrophils Absolute Auto 4.9 K/mm3 (1.3-6.7); Neutrophils Percent Auto 60.3 % (45.5-73.1); Platelet Count Result 227 k/mm3 (150-375); Red Blood Count 4.11 M/mm3 (4.6-6.20); White Blood Count 8.1 K/mm3 (4.5-10.0)
[2020-07-08 05:56] LABS: Anion Gap 10 mmol/L (8-16); Blood Urea Nitrogen 48 mg/dL (9-20); Calcium 8.5 mg/dL (8.4-10.2); Carbon Dioxide 22 mmol/L (22-30); Chloride 108 mmol/L (98-107); Estimated CRCL calculation 21 ml/min; Estimated Glomerular Filt Rate 13; Glucose 178 mg/dL (75-110); Potassium 4.2 mmol/L (3.4-5.0); Sodium 140 mmol/L (137-145)
--- NOTE | 2020-07-08 08:09 | PM.CNNEP ---
Assessment and Plan Assessment and plan (1) Acute on chronic renal failure: Qualifiers: Acute renal failure type: unspecified Chronic kidney disease stage: stage 4 (severe) Qualified Code(s): N17.9 - Acute kidney failure, unspecified; N18.4 - Chronic kidney disease, stage 4 (severe) Code(s): N17.9 - Acute kidney failure, unspecified; N18.9 - Chronic kidney disease, unspecified Status: Acute Assessment and Plan: Maxime has chronic kidney disease. It is on clear exactly what his true baseline is but it seems like the best creatinine he has had since being on dialysis was around 3.6. This gives him a GFR of 18 and a stage of 4. Currently is GFR is around 13. He had some volume overload but does not have any uremic symptoms. So I do not think we need to fine into dialysis right now. His elevation in creatinine could be from several issues: His renal function could have just deteriorated if this is the case then this might be why he developed fluid overload and the fluid overload might have caused his hypertension. His heart could be worse and therefore per perfusing his kidneys less well leading to a higher creatinine and fluid overload. His blood pressure might have just risen worsening his diastolic dysfunction leading to volume overload. Volume overload would have turned around and causes blood pressure to be higher possibly causing hypertensive nephropathy. It is hard to tease out which of these 3 are the issue. At this point will get an echo to see how his heart is doing. Will continue to diurese the patient and see what happens to his creatinine. Will give antihypertensives to bring his blood pressure down to around 150 or so and see if the renal function improves. In the meantime we can get an ultrasound of the kidneys. (2) Hypertensive urgency: Code(s): I16.0 - Hypertensive urgency Status: Acute Assessment and Plan: His blood pressure started out very high over 200. Giving him meds has brought his blood pressure down to about 146 at the most recent check. I think this is a reasonable level. I do not to over control at in the face of the acute kidney injury. (3) Acute on chronic diastolic heart failure: Code(s): I50.33 - Acute on chronic diastolic (congestive) heart failure Status: Acute Assessment and Plan: As above, it is unclear whether this is a cart or the horse. Will check an echocardiogram and give diuretics for fluid control. (4) Diabetes: Code(s): E11.9 - Type 2 diabetes mellitus without complications Status: Acute Assessment and Plan: He is on Accu-Cheks and sliding-scale ins (5) Anemia: Code(s): D64.9 - Anemia, unspecified Status: Acute Assessment and Plan: hemoglobin is low. This seems to be about in the neighborhood of how he was before. It is probably due to chronic kidney disease. We can check some irons. History of Present Illness Reason for Consult Consult date: 07/08/20 Chief Complaint Chief complaint: hypertensive urgency, ckd History of Present Illness Narrative: Pankaj is a very pleasant 54-year-old gentleman who has multiple medical problems including hypertension, diabetes, chronic kidney disease, recent acute kidney injury requiring dialysis but came off dialysis 2 months ago, peripheral neuropathy, depression. The patient was on dialysis is not patient for several months. Eventually his kidney function improved and he was a bit able to come off the machine. His dialysis catheter was removed a few weeks ago. His been feeling pretty well except that over the last couple of weeks he has had intermittent shortness of breath. He said over the last couple of days before admission is shortness of breath got worse. He had okay general mild sharp chest pains in the anterior chest and also some mild of pressure-like discomfort in the right chest. These did not come with ex
[2020-07-08 08:48] LABS: Glucose Point of Care 162 (65-105)
[2020-07-08] MEDS: DOXYCYCLINE HYCLATE 100 MG TABLET PO ×2 (09:06→17:08)
[2020-07-08] MEDS: FUROSEMIDE INJ 40 MG/4 ML VIAL IV PUSH (09:06)
[2020-07-08] MEDS: FAMOTIDINE 20 MG TABLET PO ×2 (09:06→17:08)
[2020-07-08] MEDS: ATORVASTATIN 20 MG TABLET PO (09:06)
[2020-07-08 09:16] LABS: Iron 33 ug/dL (49-181)
[2020-07-08] MEDS: VENLAFAXINE HCL 75 MG TABLET 150 MG PO ×2 (09:24→17:08)
[2020-07-08 09:25] LABS: Percent Iron Saturation 10 % (20-50)
--- NOTE | 2020-07-08 10:40 | WPDCN ---
Assessment and Plan Assessment and plan (1) Hypertensive urgency: Code(s): I16.0 - Hypertensive urgency Status: Acute Assessment and Plan: hypertensive urgency yesterday which was aggravated by and probably aggravated his diastolic heart failure. Compliant with medications. May need to add amlodipine back to his medications list new line will resume the irbesartan if okay with Dr. Colindres, as well as carvedilol also. (2) Chest pain: Qualifiers: Chest pain type: unspecified Qualified Code(s): R07.9 - Chest pain, unspecified Code(s): R07.9 - Chest pain, unspecified Status: Acute Assessment and Plan: Atypical chest pain, and no ischemic changes. Despite the elevated troponin this is noncardiac chest pain (3) Elevated troponin: Code(s): R79.89 - Other specified abnormal findings of blood chemistry Status: Acute Assessment and Plan: Appears to be secondary to the patient's heart failure and hypertension, not an ACS event. (4) Acute on chronic diastolic heart failure: Code(s): I50.33 - Acute on chronic diastolic (congestive) heart failure Status: Acute Assessment and Plan: Acute on chronic diastolic heart failure secondary to hypertension and possibly progressive aortic valve disease. AGree w/ IV lasix. Daily BMP. (5) Aortic valve stenosis: Qualifiers: Cardiac valve disease etiology: etiology unspecified Qualified Code(s): I35.0 - Nonrheumatic aortic (valve) stenosis Code(s): I35.0 - Nonrheumatic aortic (valve) stenosis Status: Chronic Assessment and Plan: History of bicuspid valve and mildly dilated sinus of Valsalva. The aortic stenosis was mild to moderate in September. Check an echo to re-evaluate the aortic stenosis. HPI Data of Consult Date/Time: 07/08/20 10:40 Requesting Physician: Byron Adams MD Primary Care Provider: Aquilino Burris MD Consult Narrative Narrative: Date of Service: 07/08/2020 Pankaj Bautista is a 54 year old male whom we were asked to see at the request of Dr. Pak for chest pain, hypertension and elevated troponins in consultation. The patient sees Dr. Burris for his PMD, Dr. 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 The patient was on hemodialysis for few months but is renal function improved and he was taken off dialysis around April with his catheter removed. He has been having progressive SOB and SCHUSTER for the last few weeks and has been unable to do as much in the yard or shopping because he gets worn out and has SCHUSTER. Recently he has been having problems with orthopnea. He has not noticed any swelling or weight gain. He came to the emergency room yesterday afternoon with these complaints as well as chest discomfort. His blood pressure was 168/61 and up to 231/139 mmHg. he has been given some IV hydralazine and labetalol, as well as IV Lasix and po clonidine, and is feeling better. He states he has been compliant with his medications. However, it through the summer his medications have changed a lot and his blood pressure is not well controlled, running 160/90 mmHg on average at home. In January he was taking amlodipine, metoprolol and valsartan, currently taking carvedilol and irbesartan as was Bumex 1 mg b.i.d.. He also has some intermittent chest tightness in the upper chest which is mild, does not last long, comes and goes with no aggravating or relieving factors, is non positional but occasionally pleuritic. This Has been occurring for about a year. He also has pinprick type of pain in the left upper chest off and on. the patient has history of hypertension, diabetes, and sm
[2020-07-08 13:20] LABS: Glucose Point of Care 219 (65-105)
[2020-07-08] MEDS: INSULIN ASPART (*BKC) 100 UNITS/ML SUB-Q (13:30)
[2020-07-08] MEDS: amLODIPine BESYLATE 5 MG TABLET PO (13:52)
--- NOTE | 2020-07-08 15:04 | PM.IMPN ---
Progress Note: A&P Assessment and Plan (1) Acute on chronic diastolic heart failure: Code(s): I50.33 - Acute on chronic diastolic (congestive) heart failure Status: Acute Assessment and Plan: Acute on chronic diastolic heart failure may be secondary to hypertensive urgency versus worsening heart failure from aortic stenosis versus related to worsening renal function. Patient tolerating IV Lasix with subjective good UOP but nothing documented. He is asymptomatic now so will continue Lasix at current dose. (2) Hypertensive urgency: Code(s): I16.0 - Hypertensive urgency Status: Acute Assessment and Plan: Patient with poorly controlled hypertension. BP peaked at 231/139. Plan to lower BP slowly. Continue Coreg, Avapro and Norvasc. Monitor blood pressure closely. Hyralazine available as needed. (3) Elevated troponin: Code(s): R79.89 - Other specified abnormal findings of blood chemistry Status: Acute Assessment and Plan: Troponin peaked at 0.1 felt more likely related to the CHF and markedly elevated BP then ACS. (4) Chest pain: Qualifiers: Chest pain type: unspecified Qualified Code(s): R07.9 - Chest pain, unspecified Code(s): R07.9 - Chest pain, unspecified Status: Acute Assessment and Plan: Related to the HTN urgency. No recurrence. Appreciate cadiology input. (5) Acute on chronic renal failure: Qualifiers: Acute renal failure type: unspecified Chronic kidney disease stage: stage 4 (severe) Qualified Code(s): N17.9 - Acute kidney failure, unspecified; N18.4 - Chronic kidney disease, stage 4 (severe) Code(s): N17.9 - Acute kidney failure, unspecified; N18.9 - Chronic kidney disease, unspecified Status: Acute Assessment and Plan: CKD IV related to uncontrolled HTN and DM. Cr 3.6 at last discharge in May. Here he is 4.6. He has been started on IV Lasix and making good urine (possibly related to lower the BP as well) and Cr remaining stable. Renal US okay. Appreciate nephrology input. 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 The patient's blood glucose was reviewed on 07/08 Glucose remains reasonably well controlled with occasional glucose values in the 200's. Continue AccuCheks covering with sliding scale. Hypoglycemia protocol available as needed. (7) Chronic anemia: Code(s): D64.9 - Anemia, unspecified Status: Chronic Assessment and Plan: Hgb in the 9 range and stable. This is likely a component of anemia of chronic disease from CKD but iron studies consistent with iron deficiency. Check Ferritin. Add iron. No signs of acute blood loss. Monitor H&H and transfuse p.r.n. (8) Mixed hyperlipidemia: Code(s): E78.2 - Mixed hyperlipidemia Status: Chronic Assessment and Plan: LFTs normal in May. Continue atorvastatin. (9) Aortic valve stenosis: Qualifiers: Cardiac valve disease etiology: etiology unspecified Qualified Code(s): I35.0 - Nonrheumatic aortic (valve) stenosis Code(s): I35.0 - Nonrheumatic aortic (valve) stenosis Status: Chronic Assessment and Plan: Echo showing severe aortic valve stenosis with an aortic valve area of 0.9 cm2. Cardiology followng (10) DVT prophylaxis: Code(s): Z29.9 - Encounter for prophylactic measures, unspecified Status: Acute Assessment and Plan: Heparin Subjective Date/time seen: 07/08/20 15:04 Interval hist
[2020-07-08 17:05] LABS: Glucose Point of Care 180 (65-105)
[2020-07-08] MEDS: hydrALAZINE HCL 20 MG/ML VIAL 10 MG IV PUSH (17:08)
[2020-07-08 20:27] LABS: Glucose Point of Care 269 (65-105)
[2020-07-08 20:47] LABS: Creatinine Urine 35.7 mg/dL
[2020-07-08 20:51] LABS: Sodium Urine Random 100 meq/L
[2020-07-08 20:53] LABS: Total Protein Urine Random 317 mg/dL
[2020-07-08] MEDS: HEPARIN SODIUM 5,000 UNITS/ML VIAL 5000 UNITS SUB-Q (21:49)
[2020-07-08] MEDS: carvediloL 12.5 MG TABLET PO (21:49)
--- NOTE | 2020-07-08 21:54 | ECHO_ITS ---
Patient Info Name: Pankaj Bautista Age: 54 years : 1965 Gender: Male Ht: 70 in Wt: 218 lbs BSA: 2.24 m2 HR: 98 bpm BP: 124 / 85 mmHg Heart Rhythm: Sinus Rhythm Technical Quality: Good Exam Date: 07/08/2020 10:54 AM Exam Location: [facility] Patient Status: Inpatient Admit Date: 07/07/2020 Staff Ordering Physician: Byron Adams MD Flower Grader: Asael Brown RDCS Attending Provider: Byron Adams MD Referring Physician: Bryan PACKER; Exam Type: CA echo doppler color flow Study Info Indications I50.21 - Acute systolic (congestive) heart failure Complete two-dimensional, color flow and Doppler transthoracic echocardiogram is performed. Strain analysis performed. History/Risk Factors Moderate to Severe ; HFpEF, CKD, HTN, DM2, SOB. Summary 1. Complete two-dimensional, color flow and Doppler transthoracic echocardiogram is performed. 2. Left ventricular systolic function is preserved, estimated at 50-55%. 3. Left ventricular chamber dimension is moderately enlarged. 4. There is moderately increased left ventricular wall thickness. 5. The left ventricular diastolic function is abnormal. 6. E/e' 23 is elevated. 7. Global longitudinal strain is abnormal at -10.2%. 8. Left atrial chamber dimension is mildly enlarged. 9. Cannot determine number of aortic valve leaflets due to significant calcifications. 10. There is severe aortic valve sclerosis. 11. There is severe aortic valve stenosis with a peak velocity of 394 cm/s, mean gradient of 39 mmHg, and aortic valve area of 0.9 cm2. 12. There is mild aortic valve regurgitation. 13. The mitral valve has mildy thickened leaflets and mildly calcified annulus. 14. There is mild to moderate mitral valve regurgitation. Left Ventricle E/e' 23 is elevated. Global longitudinal strain is abnormal at -10.2%. Left ventricular systolic function is preserved, estimated at 50-55%. Left ventricular chamber dimension is moderately enlarged. There is moderately increased left ventricular wall thickness. The left ventricular diastolic function is abnormal. Right Ventricle Right ventricular chamber dimension is normal. Right ventricular systolic function is normal. Left Atria Left atrial chamber dimension is mildly enlarged. Right Atria Right atrial chamber dimension is normal. Aortic Valve Cannot determine number of aortic valve leaflets due to significant calcifications. The aortic valve is not well visualized. There is severe aortic valve sclerosis. There is severe aortic valve stenosis with a peak velocity of 394 cm/s, mean gradient of 39 mmHg, and aortic valve area of 0.9 cm2. There is mild aortic valve regurgitation. Pulmonic Valve There is no pulmonic regurgitation. Mitral Valve The mitral valve has mildy thickened leaflets and mildly calcified annulus. There is no mitral valve stenosis. There is mild to moderate mitral valve regurgitation. Tricuspid Valve There is no tricuspid valve regurgitation. Pericardium/Pleural There is no pericardial effusion. Inferior Vena Cava Normal inferior vena cava with >50% collapse upon inspiration consistent with normal right atrial pressure, 5 mmHg. Aorta The aortic root size at the sinus of Valsalva is normal. Left Ventricular Outflow Tract Name Value Normal
[2020-07-09] VITALS (14 sets, daily range): BP systolic 131–146; BP diastolic 83–97; PULSE 81–99; RESP 12–22; TEMP 35.7–36.9; O2SAT 95–100
[2020-07-09 05:23] LABS: Alanine Aminotransferase 19 U/L (4-50); Albumin Level 3.7 g/dL (3.5-5.1); Alkaline Phosphatase 188 U/L (38-126); Anion Gap 8 mmol/L (8-16); Aspartate Amino Transferase 18 U/L (17-59); Bilirubin,Total 0.5 mg/dL (0.2-1.3); Blood Urea Nitrogen 48 mg/dL (9-20); Calcium 9.2 mg/dL (8.4-10.2); Carbon Dioxide 22 mmol/L (22-30); Chloride 109 mmol/L (98-107); Estimated CRCL calculation 23 ml/min; Estimated Glomerular Filt Rate 15; Glucose 175 mg/dL (75-110); Phosphorus 5.6 mg/dL (2.5-4.5); Potassium 3.9 mmol/L (3.4-5.0); Sodium 139 mmol/L (137-145)
[2020-07-09 05:24] LABS: Hemoglobin A1C 8.6 % (<5.7)
[2020-07-09 06:27] LABS: Folic Acid 9.9 ng/mL (2.76->20)
[2020-07-09 08:10] LABS: Glucose Point of Care 157 (65-105)
[2020-07-09] MEDS: IRBESARTAN 150 MG TABLET PO (08:14)
[2020-07-09] MEDS: DOXYCYCLINE HYCLATE 100 MG TABLET PO ×2 (08:14→16:11)
[2020-07-09] MEDS: HEPARIN SODIUM 5,000 UNITS/ML VIAL 5000 UNITS SUB-Q ×2 (08:14→22:03)
[2020-07-09] MEDS: FERROUS SULFATE 324 MG TABLET PO (08:14)
[2020-07-09] MEDS: ATORVASTATIN 20 MG TABLET PO (08:14)
[2020-07-09] MEDS: VENLAFAXINE HCL 75 MG TABLET 150 MG PO ×2 (08:14→16:11)
[2020-07-09] MEDS: FAMOTIDINE 20 MG TABLET PO ×2 (08:14→16:11)
--- NOTE | 2020-07-09 10:50 | PC.NURSE ---
Patient to Lexiscan stress test via wheelchair.
--- NOTE | 2020-07-09 12:17 | PM.PNCARD ---
Progress Note: A&P Assessment and Plan (1) Acute on chronic diastolic (congestive) heart failure: Code(s): I50.33 - Acute on chronic diastolic (congestive) heart failure Status: Acute Assessment and Plan: Continue with diuresis. (2) CKD (chronic kidney disease): Code(s): N18.9 - Chronic kidney disease, unspecified Status: Acute (3) Hypertension: Code(s): I10 - Essential (primary) hypertension Status: Acute Assessment and Plan: High. Will monitor and adjust medication as needed. (4) Aortic valve stenosis: Qualifiers: Cardiac valve disease etiology: etiology unspecified Qualified Code(s): I35.0 - Nonrheumatic aortic (valve) stenosis Code(s): I35.0 - Nonrheumatic aortic (valve) stenosis Status: Chronic Assessment and Plan: Discussed SVETLANA with patient. This could also be done as an outpatient. He will let me know since having vomiting right after lexiscan. (5) NSVT (nonsustained ventricular tachycardia): Code(s): I47.2 - Ventricular tachycardia Status: Acute Assessment and Plan: Nurse reported 17 beat run this morning. Monitor. (6) Chest pain: Qualifiers: Chest pain type: unspecified Qualified Code(s): R07.9 - Chest pain, unspecified Code(s): R07.9 - Chest pain, unspecified Status: Acute Assessment and Plan: Lexiscan myoview stress test. Could also be related to Aortic stenosis. Subjective Date/time seen: 07/09/20 12:17 Picked up care of patient from Dr. Oropeza. Reports vague chest pain or and no longer having sob. Had mild nause prior to Lexiscan myoview and had vomiting with lexiscan. Exam Const: General: comfortable and no acute distress Neck: Neck: no JVD Carotids: no bruits Resp: Auscultation: clear to auscultation bilaterally, no crackles, no rales, no rhonchi and no wheezes Cardio: Rate: regular rate Rhythm: regular rhythm Heart sounds: Murmur heart sound present (IV/ systolic murmur RICS) GI: Inspection: non-distended Neuro: Speech: normal speech Extrem: Right lower extremity: no edema Left lower extremity: no edema Objective Data Vital Signs Vital Signs: Vital Signs - 24 hr 07/08/20 14:00 07/08/20 16:00 07/08/20 18:00 Temperature 97.9 F Pulse Rate 94 88 106 H Respiratory Rate 18 Blood Pressure 185/111 H Pulse Oximetry 97 07/08/20 20:00 07/08/20 22:00 07/09/20 00:00 Temperature 98.0 F 98.4 F Pulse Rate 98 95 91 Respiratory Rate 20 22 H Blood Pressure 172/102 H 146/88 H Pulse Oximetry 99 98 07/09/20 02:00 07/09/20 04:00 07/09/20 06:00 Temperature 98.2 F Pulse Rate 88 92 95 Respiratory Rate 20 Blood Pressure 139/96 H Pulse Oximetry 95 07/09/20 08:00 07/09/20 10:00 Temperature 96.9 F L Pulse Rate 90 86 Respiratory Rate 12 Blood Pressure 140/95 H Pulse Oximetry 100 Intake/Output Intake/Output: Intake & Output 07/06/20 07/07/20 07/08/20 07/09/20 23:59 23:59 23:59 23:59 Intake Total 1090 Output Total 600 400 Balance 490 -400 Meds/Results Medications: Active Medications Generic Name Dose Route Start Last Admin Trade Name Freq PRN Reason Stop Dose Admin Acetaminophen 650 mg 07/07/20 21:55 Tylenol Tablet PO Q4H PRN Mild Pain (1-3) or Fever Amlodipine Besylate 5 mg 07/08/20 11:10 07/08/20 13:52 Norvasc PO 5 mg QAM ALEX Administration Atorvastatin Calcium 20 mg 07/08/20 09:00 07/09/20 08:14 Lipitor PO 20 mg DAILY ALEX Administration Carvedilol 12.5 mg 07/08/20 21:00 07/08/20 21:49 Coreg PO 12.5 mg Q12HR ALEX Administration Dextrose 12.5 gm 07/08/20 04:11 Dextrose 50% Syringe IV PUSH PRN PRN Hypoglycemia Protocol Doxycycline Hyclate 100 mg 07/08/20 09:00 07/09/20 08:14 Vibramycin Tab PO 100 mg BID ALEX Administration Famotidine 20 mg 07/08/20 09:00 07/09/20 08:14 Pepcid PO 20 mg BID [facility]
--- NOTE | 2020-07-09 12:45 | PC.NURSE ---
Patient returned to room following stress test.
[2020-07-09] MEDS: FUROSEMIDE INJ 40 MG/4 ML VIAL IV PUSH (12:54)
[2020-07-09] MEDS: carvediloL 12.5 MG TABLET PO ×2 (12:54→22:02)
[2020-07-09 12:58] LABS: Glucose Point of Care 173 (65-105)
[2020-07-09] MEDS: amLODIPine BESYLATE 5 MG TABLET PO (16:12)
[2020-07-09 16:42] LABS: Glucose Point of Care 176 (65-105)
--- NOTE | 2020-07-09 16:50 | PM.PNNEP ---
Progress Note: A&P Assessment and Plan (1) Acute on chronic renal failure: Qualifiers: Acute renal failure type: unspecified Chronic kidney disease stage: stage 4 (severe) Qualified Code(s): N17.9 - Acute kidney failure, unspecified; N18.4 - Chronic kidney disease, stage 4 (severe) Code(s): N17.9 - Acute kidney failure, unspecified; N18.9 - Chronic kidney disease, unspecified Status: Acute Assessment and Plan: Maxime has chronic kidney disease. It is on clear exactly what his true baseline is but it seems like the best creatinine he has had since being on dialysis was around 3.6. This gives him a GFR of 18 and a stage of 4. He may have an acute component as well. This could be from severe hypertension. the blood pressure is better. It could be from pre renal azotemia from cardiac disease. He has a good ejection fraction but he does has severe aortic stenosis. He also has diastolic dysfunction. The right-sided if his heart seems okay. This would explain the pulmonary edema plus the higher creatinine. his creatinine did improve from 4.6-4.1. Will continue with a goal blood pressure between 130 and 160. (2) Hypertensive urgency: Code(s): I16.0 - Hypertensive urgency Status: Acute Assessment and Plan: Blood pressure is better with him back on his medications. (3) Acute on chronic diastolic heart failure: Code(s): I50.33 - Acute on chronic diastolic (congestive) heart failure Status: Acute Assessment and Plan: Aortic valve disease looks bad. Lexiscan shows small area of ischemia and a larger area of an infarct and an ejection fraction which is worse than what the echo showed. Cardiology is on board (4) Diabetes: Code(s): E11.9 - Type 2 diabetes mellitus without complications Status: Acute Assessment and Plan: He is on Accu-Cheks and sliding-scale ins (5) Anemia: Code(s): D64.9 - Anemia, unspecified Status: Acute Assessment and Plan: hemoglobin is low. T sat is low. Will give Venofer. Will hold off on EPO since the hemoglobin is not all that low and also because of his hypertension. Subjective Date/time seen: 07/09/20 16:50 Interval history: Patient is feeling better today. No chest pain breathing okay. Eating better Review of Systems Cardiovascular: Cardiovascular: Reports no additional cardiovascular complaints Respiratory: Respiratory: Reports no additional respiratory complaints Gastrointestinal: Gastrointestinal: Reports no additional gastrointestinal complaints Genitourinary: Genitourinary: Reports no additional male genitourinary complaints Exam Narrative: Exam Narrative: well developed well-nourished gentleman lying in hospital bed in no acute distress Skin no rash Head normocephalic atraumatic Lungs clear Heart regular rate and rhythm no rub or gallop Abdomen bowel sounds positive soft nontender Extremities no edema Objective Data Vital Signs Vital Signs: Vital Signs - 24 hr 07/08/20 18:00 07/08/20 20:00 07/08/20 22:00 Temperature 36.7 C Pulse Rate 106 H 98 95 Respiratory Rate 20 Blood Pressure 172/102 H Pulse Oximetry 99 07/09/20 00:00 07/09/20 02:00 07/09/20 04:00 Temperature 36.9 C 36.8 C Pulse Rate 91 88 92 Respiratory Rate 22 H 20 Blood Pressure 146/88 H 139/96 H Pulse Oximetry 98 95 07/09/20 06:00 07/09/20 08:00 07/09/20 10:00 Temperature 36.1 C L Pulse Rate 95 90 86 Respiratory Rate 12 Blood Pressure 140/95 H Pulse Oximetry 100 07/09/20 12:00 07/09/20 12:54 07/09/20 14:00 Temperature 35.7 C L Pulse Rate 91 99 90 Respiratory Rate 12 Blood Pressure 137/97 H Pulse Oximetry 100 Intake/Output Intake/Output: Intake & Output 07/06/20 07/07/20 07/08/20 07/09/20 23:59 23:59 23:59 23:59 Intake Total 1090 630 Output Total 600 400 Balance 490 230 Meds/Results Med
--- NOTE | 2020-07-09 19:02 | EST_ITS ---
Patient Info Name: Pankaj Bautista Age: 54 years : 1965 Gender: Male Ht: 70 in Wt: 219 lbs BSA: 2.24 m2 Exam Date: 07/09/2020 11:03 AM Exam Location: [facility] Stress Patient Status: Inpatient Admit Date: 07/07/2020 Staff Ordering Physician: Jairo French DO Attending Provider: Byron Adams MD Exercise Technologist: Laura Grover RDCS Exercise Physician: Jairo French DO Exam Type: CA stress luis w NM Study Info Indications R07.9 - Chest pain, unspecified A regadenoson stress test was performed. Summary 1. 1. Negative lexiscan stress test for ischemic ST changes by ECG criteria. 2. 2. Baseline hypertension. 3. 3. Nuclear scan to follow and will be reported separately. Please correlate with it. 4. 4. Patient informed of the above results. Protocol: Lexiscan Stress ECG Details Stage: REST Duration (min): 7 min : 16 sec HR (bpm): 88 SBP (mmHg): 180 DBP (mmHg): 113 Stage: REST Duration (min): 23 min : 38 sec HR (bpm): 92 SBP (mmHg): 180 DBP (mmHg): 113 Stage: STAGE 1 Duration (min): 0 min : 59 sec HR (bpm): 101 SBP (mmHg): 168 DBP (mmHg): 108 Stage: RECOVERY Duration (min): 1 min : 0 sec HR (bpm): 110 SBP (mmHg): 168 DBP (mmHg): 108 Stage: RECOVERY Duration (min): 2 min : 0 sec HR (bpm): 111 SBP (mmHg): 168 DBP (mmHg): 108 Stage: RECOVERY Duration (min): 3 min : 0 sec HR (bpm): 123 SBP (mmHg): 178 DBP (mmHg): 104 Stage: RECOVERY Duration (min): 4 min : 0 sec HR (bpm): 125 SBP (mmHg): 178 DBP (mmHg): 104 Stage: RECOVERY Duration (min): 5 min : 0 sec HR (bpm): 116 SBP (mmHg): 178 DBP (mmHg): 104 Stage: RECOVERY Duration (min): 6 min : 0 sec HR (bpm): 110 SBP (mmHg): 209 DBP (mmHg): 120 Stage: RECOVERY Duration (min): 7 min : 0 sec HR (bpm): 105 SBP (mmHg): 207 DBP (mmHg): 123 Stage: RECOVERY Duration (min): 8 min : 0 sec HR (bpm): 102 SBP (mmHg): 207 DBP (mmHg): 123 Stage: RECOVERY Duration (min): 9 min : 0 sec HR (bpm): 99 SBP (mmHg): 181 DBP (mmHg): 107 Stage: RECOVERY Duration (min): 9 min : 13 sec HR (bpm): 98 SBP (mmHg): 181 DBP (mmHg): 107 Rest HR: 92 bpm Peak HR: 125 bpm Rest Sys BP: 180 mmHg Peak Sys BP: 209 mmHg Max Pred HR: 168 bpm % Max Pred HR: 74 % Target HR: 143 bpm Max RPP: 26,125 bpm*mmHg Termination Reason: Completed protocol Cardiac Symptoms: Vomiting Total Time: 1 min : 0 sec Rest Eldridge BP: 113 mmHg Peak Eldridge BP: 120 mmHg Total Dose: 0.4 mg Resting ECG Sinus rhythm. Stress ECG No ST changes. Due to vomiting with lexiscan, patient given Aminophylline 100 mg IV x1 to reverse it. Arrhythmias None. Report Signatures
--- NOTE | 2020-07-09 19:08 | PM.IMPN ---
Progress Note: A&P Assessment and Plan (1) NSVT (nonsustained ventricular tachycardia): Code(s): I47.2 - Ventricular tachycardia Status: Acute Assessment and Plan: Patient had episode of 14 beat nonsustained V-tach. magnesium level not checked. Potassium level normal. Continue telemetry. Check magnesium level in the morning. (2) Acute on chronic diastolic heart failure: Code(s): I50.33 - Acute on chronic diastolic (congestive) heart failure Status: Acute Assessment and Plan: Acute on chronic diastolic heart failure may be secondary to hypertensive urgency versus worsening heart failure from aortic stenosis versus related to worsening renal function. Patient tolerating IV Lasix with subjective good UOP but output not fully documented. He is asymptomatic now so will continue Lasix at current dose. (3) Hypertensive urgency: Code(s): I16.0 - Hypertensive urgency Status: Acute Assessment and Plan: Patient with poorly controlled hypertension. BP peaked at 231/139. Plan to lower BP slowly. BP much better controlled. Continue Coreg, Avapro and Norvasc. Monitor blood pressure closely. Hyralazine available as needed. (4) Elevated troponin: Code(s): R79.89 - Other specified abnormal findings of blood chemistry Status: Acute Assessment and Plan: Troponin peaked at 0.1 felt more likely related to the CHF and markedly elevated BP then ACS. Lexiscan performed today showing a small area of mild ischemia involving left ventricular apex; moderate-sized area of mild infarct involving inferolateral and anterolateral portillo of LV; global hypokinesis with LV EF 30%. EF 50-55% by surface Echo. SVETLANA being considered. Will add ASA. (5) Chest pain: Qualifiers: Chest pain type: unspecified Qualified Code(s): R07.9 - Chest pain, unspecified Code(s): R07.9 - Chest pain, unspecified Status: Acute Assessment and Plan: Related to the HTN urgency. No recurrence. As above. Appreciate cadiology input. (6) Acute on chronic renal failure: Qualifiers: Acute renal failure type: unspecified Chronic kidney disease stage: stage 4 (severe) Qualified Code(s): N17.9 - Acute kidney failure, unspecified; N18.4 - Chronic kidney disease, stage 4 (severe) Code(s): N17.9 - Acute kidney failure, unspecified; N18.9 - Chronic kidney disease, unspecified Status: Acute Assessment and Plan: CKD IV related to uncontrolled HTN and DM. Cr 3.6 at last discharge in May. Here he is 4.6. He has been started on IV Lasix and making good urine (possibly related to lower the BP as well) and Cr improved to 4.1. Renal US okay. Appreciate nephrology input. 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 The patient's blood glucose was reviewed on 07/09 Glucose remains reasonably well controlled in the 150-170 today Continue AccuCheks covering with sliding scale. Hypoglycemia protocol available as needed. Holding Lantus. NPO after midnight (8) Chronic anemia: Code(s): D64.9 - Anemia, unspecified Status: Chronic Assessment and Plan: Hgb in the 9 range and stable. This is likely a component of anemia of chronic disease from CKD but iron studies consistent with iron deficiency. Started on IV iron. No signs of acute blood loss. Monitor H&H and transfuse p.r.n. (9) Mixed hyperlipidemia: Code(s): E78.2 - Mixed hyperlipidemia Status: Chronic Assessment and Plan: LFTs normal. Cont
[2020-07-09 21:20] LABS: Glucose Point of Care 157 (65-105)
[2020-07-09] MEDS: ASPIRIN 81 MG CHEWABLE TABLET PO (22:03)
[2020-07-10] VITALS (41 sets, daily range): BP systolic 107–197; BP diastolic 72–123; PULSE 74–99; RESP 14–27; TEMP 35.9–36.4; O2SAT 94–100
[2020-07-10 04:37] LABS: Hemoglobin 10.1 g/dL (14.0-18.0); Mean Corpuscular HGB Conc 31.6 g/dl (32-36); Mean Corpuscular Volume 76.2 fl (80-100); Mean Platelet Volume 9.4 fl (7.4-10.4); Platelet Count Result 234 k/mm3 (150-375); Red Cell Distribution Width 14.8 % (11.5-14.5); White Blood Count 8.9 K/mm3 (4.5-10.0)
[2020-07-10 04:55] LABS: Albumin Level 3.6 g/dL (3.5-5.1); Anion Gap 10 mmol/L (8-16); Blood Urea Nitrogen 54 mg/dL (9-20); Carbon Dioxide 20 mmol/L (22-30); Chloride 107 mmol/L (98-107); Estimated CRCL calculation 21 ml/min; Estimated Glomerular Filt Rate 14; Glucose 144 mg/dL (75-110); Magnesium 1.7 mg/dL (1.6-2.3); Phosphorus 6.8 mg/dL (2.5-4.5); Potassium 3.6 mmol/L (3.4-5.0); Sodium 137 mmol/L (137-145)
--- NOTE | 2020-07-10 08:00 | ECHO_ITS ---
Patient Info Name: Pankaj Bautista Age: 54 years : 1965 Gender: Male Ht: 70 in Wt: 216 lbs BSA: 2.23 m2 HR: 96 bpm BP: 154 / 100 mmHg Technical Quality: Good Exam Date: 07/10/2020 7:37 AM Exam Location: [facility] Patient Status: Inpatient Admit Date: 07/09/2020 Staff Ordering Physician: Jairo French DO Manager Non Profit: Marc Pichardo, ALBERT, RT Attending Provider: Byron Adams MD Referring Physician: Manolo RUIZ; Exam Type: CA echo transesophageal Study Info Indications I35.8 - Other nonrheumatic aortic valve disorders Complete two-dimensional, color flow and Doppler transesophageal study is performed. Procedure Details Risks/benefits/alternative treatment discussed with patient and he is agreeable for procedure. Fentanyl 25 mcg and Versed 2 mg IV for conscious sedation. SVETLANA probe advanced into oropharynx and swallowed into esophagus without incident. Vitals stable. Images obtained. Agitated saline administered. SVETLANA withdrawn and no blood noted on SVETLANA probe tip. No complications. Patient tolerated procedure well. Summary 1. Left ventricular chamber dimension is moderately enlarged. 2. Left ventricular systolic function is moderately reduced with an ejection fraction 35-40% by visual estimation. 3. There is moderately increased left ventricular wall thickness. 4. The left ventricular diastolic function is indeterminate. 5. Left atrial chamber dimension is severely enlarged. 6. There is severe aortic valve sclerosis. 7. There is severe aortic valve stenosis. By planimetry, Aortic valve area is 0.7 cm2. 8. There is mild aortic valve regurgitation. 9. The mitral valve has mildly thickened leaflets and mildly calcified annulus. 10. There is moderate mitral valve regurgitation. Left Ventricle Left ventricular chamber dimension is moderately enlarged. Left ventricular systolic function is moderately reduced with an ejection fraction 35-40% by visual estimation. There is moderately increased left ventricular wall thickness. The left ventricular diastolic function is indeterminate. Right Ventricle Right ventricular chamber dimension is normal. Right ventricular systolic function is normal. Left Atria Left atrial chamber dimension is severely enlarged. Atrial Septum Intact interatrial septum visualized by agitated saline imaging. Agitated saline injection opacified right sided cardiac chambers without shunt to left side cardiac chambers. Aortic Valve The aortic valve is bicuspid. There is severe aortic valve sclerosis. There is severe aortic valve stenosis. By planimetry, Aortic valve area is 0.7 cm2. There is mild aortic valve regurgitation. Pulmonic Valve The pulmonic valve is not well visualized. Mitral Valve The mitral valve has mildly thickened leaflets and mildly calcified annulus. There is no mitral valve stenosis. There is moderate mitral valve regurgitation. Tricuspid Valve There is no tricuspid valve regurgitation. Pericardium/Pleural There is no pericardial effusion. Inferior Vena Cava Not well visualized inferior vena cava. Aorta The aortic root size at the sinus of Valsalva is normal. Report Signatures
--- NOTE | 2020-07-10 08:11 | PM.PNCARD ---
Progress Note: A&P Assessment and Plan (1) CKD (chronic kidney disease): Code(s): N18.9 - Chronic kidney disease, unspecified Status: Acute (2) Hypertension: Code(s): I10 - Essential (primary) hypertension Status: Acute Assessment and Plan: High but fluctuates. Will monitor and adjust medication as needed. (3) Aortic valve stenosis: Qualifiers: Cardiac valve disease etiology: etiology unspecified Qualified Code(s): I35.0 - Nonrheumatic aortic (valve) stenosis Code(s): I35.0 - Nonrheumatic aortic (valve) stenosis Status: Chronic Assessment and Plan: Severe with bicuspid AV. He will need AVR. Needs preop left heart cath. He has significant CKD and understands risk of going back on dialysis from it. Will notify HCG to see if available to do diagnostic cath today rather than wait until Monday. (4) NSVT (nonsustained ventricular tachycardia): Code(s): I47.2 - Ventricular tachycardia Status: Acute Assessment and Plan: He had 14 beat run yesterday morning. Replete Mag with Mag Ox 400 mg BID. (5) Chest pain: Qualifiers: Chest pain type: unspecified Qualified Code(s): R07.9 - Chest pain, unspecified Code(s): R07.9 - Chest pain, unspecified Status: Acute (6) Acute on chronic combined systolic and diastolic CHF (congestive heart failure): Code(s): I50.43 - Acute on chronic combined systolic (congestive) and diastolic (congestive) heart failure Status: Acute Assessment and Plan: EF 35-40% on SVETLANA. Probably due to aortic stenosis and will need valve replacement soon. Subjective Date/time seen: 07/10/20 08:11 Just finished with SVETLANA which shows severe with bicuspid valve at 0.7 cm. EF 35-40%, mod Reports vague chest pain intermittently and sob. Exam Const: General: comfortable and no acute distress Neck: Neck: no JVD Carotids: no bruits Resp: Auscultation: clear to auscultation bilaterally, no crackles, no rales, no rhonchi and no wheezes Cardio: Rate: regular rate Rhythm: regular rhythm Heart sounds: Murmur heart sound present (IV/ systolic murmur RICS) GI: Inspection: non-distended Neuro: Speech: normal speech Extrem: Right lower extremity: no edema Left lower extremity: no edema Objective Data Vital Signs Vital Signs: Vital Signs - 24 hr 07/09/20 10:00 07/09/20 12:00 07/09/20 12:54 Temperature 96.3 F L Pulse Rate 86 91 99 Respiratory Rate 12 Blood Pressure 137/97 H Pulse Oximetry 100 07/09/20 14:00 07/09/20 16:00 07/09/20 18:00 Temperature 96.4 F L Pulse Rate 90 81 88 Respiratory Rate 12 Blood Pressure 133/83 Pulse Oximetry 96 07/09/20 20:00 07/09/20 22:00 07/09/20 23:54 Temperature 97 F L 96.9 F L Pulse Rate 87 89 86 Respiratory Rate 20 15 Blood Pressure 131/85 134/85 Pulse Oximetry 100 99 07/10/20 00:00 07/10/20 02:00 07/10/20 03:50 Temperature Pulse Rate 86 82 84 Respiratory Rate Blood Pressure Pulse Oximetry 07/10/20 03:56 07/10/20 05:42 07/10/20 07:05 Temperature 96.7 F L 96.8 F L Pulse Rate 84 85 99 Respiratory Rate 16 16 Blood Pressure 134/88 150/104 H Pulse Oximetry 98 100 07/10/20 07:40 07/10/20 07:45 07/10/20 07:50 Temperature Pulse Rate 88 99 89 Respiratory Rate 14 24 H 20 Blood Pressure 183/119 H 197/123 H 172/113 H Pulse Oximetry 100 100 99 07/10/20 07:55 07/10/20 08:00 Temperature 97.6 F Pulse Rate 87 88 Respiratory Rate 21 H 27 H Blood Pressure 161/106 H 172/103 H Pulse Oximetry 99 99 Intake/Output Intake/Output: Intake & Output 07/07/20 07/08/20 07/09/20 07/10/20 23:59 23:59 23:59 23:59 Intake Total 1090 630 300 Output Total 600 400 Balance 490 230 300 Meds/Results Medications: Active Medications Generic Name Dose Route Start Last Admin Trade Name Freq PRN Reason Stop Dose Admin Acetaminophen 650 mg 07/07/20 21:55 Tylenol Tablet PO Q
[2020-07-10] MEDS: FUROSEMIDE INJ 40 MG/4 ML VIAL IV PUSH (10:17)
[2020-07-10] MEDS: IRBESARTAN 150 MG TABLET PO (10:17)
[2020-07-10] MEDS: carvediloL 12.5 MG TABLET PO ×2 (10:17→20:09)
[2020-07-10] MEDS: ASPIRIN 81 MG CHEWABLE TABLET PO (10:18)
[2020-07-10] MEDS: VENLAFAXINE HCL 75 MG TABLET 150 MG PO ×2 (10:18→18:07)
[2020-07-10] MEDS: FERROUS SULFATE 324 MG TABLET PO (10:18)
[2020-07-10] MEDS: FAMOTIDINE 20 MG TABLET PO ×2 (10:18→18:07)
[2020-07-10] MEDS: amLODIPine BESYLATE 5 MG TABLET PO (10:18)
[2020-07-10] MEDS: ATORVASTATIN 20 MG TABLET PO (10:18)
[2020-07-10] MEDS: MAGNESIUM SULF 2 GM/WATER 50ML 2 GM/50 ML BAG IVPB (10:28)
[2020-07-10] MEDS: IRON SUCROSE COMPLEX 200 MG in SODIUM CHLORIDE 0.9% IV 50 ML 120 MG IVPB (11:23)
--- NOTE | 2020-07-10 11:50 | WPDMODSED ---
Moderate Sedation Note-Pt Data Patient Data Diagnosis: Symptomatic aortic stenosis stage 4 chronic kidney disease previously on hemodialysis Present Complaint: dyspnea Procedure to be performed/Plan: right and left heart catheterization Allergies Allergy/AdvReac Type Severity Reaction Status Date / Time No Known Allergies Allergy Verified 06/25/20 10:16 Home Medications Medication Instructions Recorded Confirmed Type venlafaxine 150 mg PO BID 08/30/19 07/07/20 History pen needle, diabetic 31 gauge x #30 each 09/11/19 07/07/20 Rx /16 insulin syringe-needle U-100 0.5 #200 each 01/01/20 07/07/20 Rx mL 29 gauge x 1/2 gabapentin 300 mg capsule 300 mg PO TID cap 03/30/20 07/07/20 History Lantus Solostar U-100 Insulin 22 unit SUBCUT BID 04/03/20 07/07/20 History atorvastatin 20 mg tablet 20 mg PO DAILY #90 tablet 04/15/20 07/07/20 Rx famotidine 40 mg tablet 20 mg PO BID #90 tablet 04/15/20 07/07/20 Rx irbesartan 150 mg tablet 150 mg PO DAILY #30 tablet 06/12/20 07/07/20 Rx bumetanide 1 mg PO BID 06/17/20 07/07/20 History doxycycline hyclate 100 mg PO BID #14 tablet 06/20/20 07/07/20 Rx carvedilol 12.5 mg tablet 12.5 mg PO Q12H #60 tablet 06/25/20 07/07/20 Rx Current Medications: Active Medications Acetaminophen (Tylenol Tablet) 650 mg PO Q4H PRN PRN Reason: Mild Pain (1-3) or Fever Amlodipine Besylate (Norvasc) 5 mg PO QAM [facility] Last Admin: 07/10/20 10:18 Dose: 5 mg Documented by: Aspirin (Aspirin Chewable) 81 mg PO DAILY@0800 [facility] Last Admin: 07/10/20 10:18 Dose: 81 mg Documented by: Atorvastatin Calcium (Lipitor) 20 mg PO DAILY [facility] Last Admin: 07/10/20 10:18 Dose: 20 mg Documented by: Carvedilol (Coreg) 12.5 mg PO Q12HR [facility] Last Admin: 07/10/20 10:17 Dose: 12.5 mg Documented by: Dextrose (Dextrose 50% Syringe) 12.5 gm IV PUSH PRN PRN; Protocol PRN Reason: Hypoglycemia Famotidine (Pepcid) 20 mg PO BID [facility] Last Admin: 07/10/20 10:18 Dose: 20 mg Documented by: Ferrous Sulfate (Ferrous Sulfate) 324 mg PO DAILY [facility] Last Admin: 07/10/20 10:18 Dose: 324 mg Documented by: Furosemide (Lasix Inj) 40 mg IV PUSH DAILY [facility] Last Admin: 07/10/20 10:17 Dose: 40 mg Documented by: Glucagon (Glucagon For Inj) 1 mg IM PRN PRN; Protocol PRN Reason: Hypoglycemia Glucose (Glutose 15) 15 gm PO PRN PRN; Protocol PRN Reason: Hypoglycemia Heparin Sodium (Porcine) (Heparin Sodium) 5,000 units SUB-Q Q12HR [facility] Last Admin: 07/09/20 22:03 Dose: 5,000 units Documented by: Dextrose (Dextrose 5% 1,000 Ml) 1,000 mls @ 100 mls/hr IVPB PRN PRN; Protocol PRN Reason: Hypoglycemia Iron Sucrose 200 mg/ Sodium (Chloride) 60 mls @ 120 mls/hr IVPB QAM [facility] Stop: 07/14/20 09:01 Last Admin: 07/10/20 11:23 Dose: 120 mls/hr Documented by: Insulin Aspart (Novolog) 3 - 6 units SUB-Q TIDWM [facility]; Protocol Last Admin: 07/10/20 10:16 Dose: Not Given Documented by: Irbesartan (Avapro) 150 mg PO QAM [facility] Last Admin: 07/10/20 10:17 Dose: 150 mg Documented by: Venlafaxine HCl (Effexor) 150 mg PO BID [facility] Stop: 08/07/20 09:01 Last Admin: 07/10/20 10:18 Dose: 150 mg Documented by: Sedation/Anesthesia: No previous sedation/anesthesia problems (including family history). [facility] Past Medical History Medical History (Updated 07/10/20 @ 08:15 by Jairo French DO) Aortic valve stenosis bicuspid aortic valve Arthritis Chronic kidney disease Diabetic foot ulcer Diabetic foot ulcer Probing to bone Essential (primary) hypertension FHx: prostate cancer Finger fracture GERD (gastroesophageal reflux disease) Head ache Heart murmur Hiatal hernia History of cerebrovascular accident (CVA) in adulthood Hy kid NOS w cr kid I-IV Impingement syndrome of left shoulder Iron deficiency Long-term insulin use Microcytic anemia Mixed hyperlipidemia Neuropathy Peripheral vascular disease (Unknown) Pneumonia Prostate cancer screening 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
[2020-07-10 12:05] LABS: Glucose Point of Care 142 (65-105)
--- NOTE | 2020-07-10 14:19 | WPDCARDPROC ---
Cardiac Cath Procedure Note Date of procedure:: 07/10/20 Performing physician:: Liam Pham MD Indication:: bicuspid aortic valve with significant symptomatic aortic stenosis stage 5 chronic kidney disease Brief clinical history:: this is a 54-year-old man known to have aortic stenosis up until now has been asymptomatic he now presents with dyspnea and SVETLANA demonstrates bicuspid aortic valve with a valve area approximately 0.9. Right left heart catheterization has been requested prior to considering surgical consultation. The patient does have significant chronic kidney disease has previously been on hemodialysis, currently is not but has a creatinine of 4.4 which is chronic. Recognizing the high likely risk of contrast nephropathy and required the need for reinstitution dialysis catheterization has been recommended for this afternoon Procedure Procedure performed:: right and left heart catheterization Sedation/Medication given:: fentanyl 50 mg Versed 2 mg case start time 1:42 p.m. case end time 2:14 p.m. sedation provided by Pippa Conteh RN, trained observer Access site:: right femoral artery, right femoral vein Estimated blood loss:: 20 cc Procedure note:: patient was brought to the cardiac catheterization lab in the postabsorptive state where the right femoral triangle was prepared and draped in the usual fashion. Anesthesia was provided with 1% lidocaine infiltrated locally. Using the modified Seldinger technique the right femoral artery was punctured and a long 45 cm 6 Polish sheath was placed into the descending aorta. A puncture was made of the femoral vein and a 7 Polish sheath was placed in the femoral vein. Following this right heart catheterization was carried out above balloon tip [place] catheter was used to measure right-sided hemodynamics and to stay measure cardiac output and AV O2 difference. The [place] catheter was then withdrawn. I used a 5 Polish angle pigtail catheter through the long 6 Polish sheath and placed in the ascending aorta. Simultaneous pressures were documented in the side arm of the long sheath and the and lumen of the pigtail. The systolic pressures were found to be superimposed able. After this I used a 0.035 straight wire to probe the calcified stenotic aortic valve the left ventricle was entered and simultaneous LV and aortic pressures were demonstrated. Aortic valve area was calculated and then pullback pressures were demonstrated across the aortic valve. The pressures often pullback were not identical the pressures reflect a 10 mm underestimation of the systolic gradient. Following this the pigtail catheter was withdrawn stay 5 Polish FL4 catheter to engage inject the left coronary artery in multiple projections after this a 5 Polish JR4 catheter was used to engage inject the right coronary artery in orthogonal projections. After this the case was terminated the patient was taken to the holding area for manual sheath removal of procedure was well tolerated there were no apparent complications. Findings:: Hemodynamics: Right atrial pressure was 3 mmHg, pulmonary artery was 31/13, pulmonary capillary wedge pressure 6. Thermodilution cardiac output was 5.93 liters/minute giving an index of 2.75. Central aortic pressure was 120/74 left ventricle 152 over 3 and diastolic pressure 15. Manually accounting for the pressure differential described above the mean aortic valve gradient is 43 mm of valve area then calculates to be 0.9 cm squared.. The left ventricle was not injected during this procedure to minimize contrast exposure in this patient with kidney disease left main coronary artery is widely patent the left anterior descending is a [id number] caliber vessel extending down to the apex the LAD has no significant atherosclerosis. The circumflex is a large caliber vessel giving rise to the marginal branches and a posterolateral branch. There is a 70-80% steno
--- NOTE | 2020-07-10 14:25 | SUR.PHASEII ---
BEGIN PHASE II RECOVERY. RETURNS TO [facility] VIA STRETCHER S/P R/C W/ DR. WANG. AWAKE AND ALERT ON ARRIVAL, DENIES CP OR SOB. ORIENTED TO ROOM AND PLAN. SHEATHS INTACT BOTH R. FEM ARTERY AND R. FEM VEIN. SITE WITHOUT BLEEDING OR HEMATOMA. R. PEDAL PULSE STRONG. REVIEWED BEDREST ACTIVITY RESTRICTIONS, PLANNED SHEATH PULLS AND BEDREST EXPECTATIONS W/ PT AND . WILL MONITOR.
--- NOTE | 2020-07-10 15:32 | SUR.PHASEII ---
1502 TO 1532: R. FEM ARTERY 6FR 45CM SHEATH MANUALLY PULLED AND FIRM STEADY PRESSURE HELD TO SITE BY ROSITA Bain RN UNTIL HEMOSTASIS. TOLERATED WELL. STAT SEAL TO SITE. NO BLEEDING OR HEMATOMA NOTED. PREPPING TO PULL R. FEM VENOUS SHEATH. WILL CONTINUE TO MONITOR.
--- NOTE | 2020-07-10 15:45 | SUR.PHASEII ---
1535 TO 1545: R. FEMORAL VEIN 7FR VENOUS SHEATH MANUALLY PULLED AND FIRM PRESSURE HELD TO SITE BY ROSITA Bain RN UNTIL HEMOSTASIS. TOLERATED WELL. SITE SOFT, NONTENDER. NO BLEEDING NOTED. BOTH VENOUS AND ARTERIAL SITES COVERED W/ FOLDED 4X4 GUAZE AND TEGADERM. REVIEWED BEDREST EXPECTATIONS AND THAT BEDREST X 6 HOURS BEGINS.
--- NOTE | 2020-07-10 16:14 | PM.PNNEP ---
Progress Note: A&P Assessment and Plan (1) Acute on chronic renal failure: Qualifiers: Acute renal failure type: unspecified Chronic kidney disease stage: stage 4 (severe) Qualified Code(s): N17.9 - Acute kidney failure, unspecified; N18.4 - Chronic kidney disease, stage 4 (severe) Code(s): N17.9 - Acute kidney failure, unspecified; N18.9 - Chronic kidney disease, unspecified Status: Acute Assessment and Plan: Maxime has chronic kidney disease. It is on clear exactly what his true baseline is but it seems like the best creatinine he has had since being on dialysis was around 3.6. This gives him a GFR of 18 and a stage of 4. He may have an acute component as well but not clear.. This could be from severe hypertension. the blood pressure is better. cardiorenal syndrome due tgo AoS is possibl;e. this is being investigated. creatinine worsened from 4.1 to 4.4 but he is on diuretics (necessary as he has volume overload on cxr) Will continue with a goal blood pressure between 130 and 160. give diuretics one more day. check cxr in am (2) Hypertensive urgency: Code(s): I16.0 - Hypertensive urgency Status: Acute Assessment and Plan: Blood pressure is better with him back on his medications. (3) Acute on chronic diastolic heart failure: Code(s): I50.33 - Acute on chronic diastolic (congestive) heart failure Status: Acute Assessment and Plan: Aortic valve disease looks bad. Lexiscan shows small area of ischemia and a larger area of an infarct and an ejection fraction which is worse than what the echo showed. Cardiology is doing [facility] today (4) Diabetes: Code(s): E11.9 - Type 2 diabetes mellitus without complications Status: Acute Assessment and Plan: He is on Accu-Cheks and sliding-scale ins (5) Anemia: Code(s): D64.9 - Anemia, unspecified Status: Acute Assessment and Plan: hemoglobin is low. T sat is low. on venofer Will hold off on EPO since the hemoglobin is not all that low and also because of his hypertension. Subjective Date/time seen: 07/10/20 16:14 Interval history: Patient is feeling better today. No chest pain going for [facility] soon to investigate his heart valve. Review of Systems Cardiovascular: Cardiovascular: Reports no additional cardiovascular complaints Respiratory: Respiratory: Reports no additional respiratory complaints Gastrointestinal: Gastrointestinal: Reports no additional gastrointestinal complaints Genitourinary: Genitourinary: Reports no additional male genitourinary complaints Exam Narrative: Exam Narrative: well developed well-nourished gentleman lying in hospital bed in no acute distress Skin no rashor sq nodules Head normocephalic atraumatic Lungs clear Heart regular rate and rhythm no rub or gallop Abdomen bowel sounds positive soft nontender Extremities no edema or cyanosis Objective Data Vital Signs Vital Signs: Vital Signs - 24 hr 07/09/20 18:00 07/09/20 20:00 07/09/20 22:00 Temperature 36.1 C L Pulse Rate 88 87 89 Respiratory Rate 20 Blood Pressure 131/85 Pulse Oximetry 100 07/09/20 23:54 07/10/20 00:00 07/10/20 02:00 Temperature 36.1 C L Pulse Rate 86 86 82 Respiratory Rate 15 Blood Pressure 134/85 Pulse Oximetry 99 07/10/20 03:50 07/10/20 03:56 07/10/20 05:42 Temperature 35.9 C L Pulse Rate 84 84 85 Respiratory Rate 16 Blood Pressure 134/88 Pulse Oximetry 98 07/10/20 07:05 07/10/20 07:40 07/10/20 07:45 Temperature 36.0 C L Pulse Rate 99 88 99 Respiratory Rate 16 14 24 H Blood Pressure 150/104 H 183/119 H 197/123 H Pulse Oximetry 100 100 100 07/10/20 07:50 07/10/20 07:55 07/10/20 08:00 Temperature 36.4 C Pulse Rate 89 87 88 Respiratory Rate 20 21 H 27 H Blood Pressure 172/113 H 161/106 H 172/103 H Pulse Oximetry 99 99 99 07/10/20 08:15 07/10/20 08:30 07/10/20
--- NOTE | 2020-07-10 16:50 | SUR.PHASEII ---
END PHASE II RECOVERY. REPORT HAS BEEN CALLED TO FEDERICO Hendrix RN AT 1635 AND PT. NOW RETURNS TO [facility] 232 VIA STRETCHER ON TELE MONITOR. NO NEW CHANGES R. ALFREDO CATH SITES. BEDREST UNTIL 2129. AT SIDE.
--- NOTE | 2020-07-10 17:24 | PM.IMPN ---
Progress Note: A&P Assessment and Plan (1) NSVT (nonsustained ventricular tachycardia): Code(s): I47.2 - Ventricular tachycardia Status: Acute Assessment and Plan: Patient had episode of 14 beat nonsustained V-tach yesterday morning. No recurrence. Magnesium level 1.7 and was replaced. (2) Acute on chronic diastolic heart failure: Code(s): I50.33 - Acute on chronic diastolic (congestive) heart failure Status: Acute Assessment and Plan: Acute on chronic diastolic heart failure may be secondary to hypertensive urgency versus worsening heart failure from aortic stenosis versus related to worsening renal function. Patient tolerating IV Lasix with subjective good UOP but output not fully documented. He is asymptomatic now so will hold Lasix. (3) Hypertensive urgency: Code(s): I16.0 - Hypertensive urgency Status: Acute Assessment and Plan: Patient with poorly controlled hypertension. BP peaked at 231/139. Plan to lower BP slowly. BP much better controlled. Continue Coreg and Norvasc. Monitor blood pressure closely. Hyralazine available as needed. Avapro held. (4) Elevated troponin: Code(s): R79.89 - Other specified abnormal findings of blood chemistry Status: Acute Assessment and Plan: Troponin peaked at 0.1 felt more likely related to the CHF and markedly elevated BP then ACS. Lexiscan performed 07/09 showing a small area of mild ischemia involving left ventricular apex; moderate-sized area of mild infarct involving inferolateral and anterolateral portillo of LV; global hypokinesis with LV EF 30%. EF 50-55% by surface Echo. EF 35-40% by SVETLANA. LHC showing 80% stenosis of a terminal posterolateral circumflex. Continue ASA, Lipitor and Coreg. (5) Chest pain: Qualifiers: Chest pain type: unspecified Qualified Code(s): R07.9 - Chest pain, unspecified Code(s): R07.9 - Chest pain, unspecified Status: Acute Assessment and Plan: Related to the HTN urgency. No recurrence. As above. Appreciate cadiology input. (6) Acute on chronic renal failure: Qualifiers: Acute renal failure type: unspecified Chronic kidney disease stage: stage 4 (severe) Qualified Code(s): N17.9 - Acute kidney failure, unspecified; N18.4 - Chronic kidney disease, stage 4 (severe) Code(s): N17.9 - Acute kidney failure, unspecified; N18.9 - Chronic kidney disease, unspecified Status: Acute Assessment and Plan: CKD IV related to uncontrolled HTN and DM. Cr 3.6 at last discharge in May. Here he is 4.6. He has been started on IV Lasix and making good urine (possibly related to lower the BP as well) and Cr stable (4.4 today). Renal US okay. Appreciate nephrology input. Follow UOP and renal function closely after contrast exposure. (7) Diabetes mellitus: Qualifiers: Diabetes mellitus complication status: without complication Diabetes mellitus fci insulin use: with oysterman use Diabetes mellitus type: type 2 Qualified Code(s): E11.9 - Type 2 diabetes mellitus without complications; Z79.4 - FDC (current) use of insulin Code(s): E11.9 - Type 2 diabetes mellitus without complications Status: Chronic Assessment and Plan: A1c 8.6. The patient's blood glucose was reviewed on 07/10 Glucose remains reasonably well controlled in the 140-170 past 2 days Continue AccuCheks covering with sliding scale. Hypoglycemia protocol available as needed. Continue to hold Lantus (8) Chronic anemia: Code(s): D64.9 - Anemia, unspecified Status: Chronic Assessment and Plan: Hgb in the 9-10 range and stable. This is likely a component of anemia of chronic disease from CKD but iron studies consistent with iron deficiency. Started on IV iron. No signs of acute blood loss. Monitor H&H and transfuse p.r.n. (9) Mixed hyperlipidemia: Code(s): E78.2 -
[2020-07-10] MEDS: SODIUM CHLORIDE 0.9% IV 1,000 ML 125 ML IV CONT (18:06)
[2020-07-10 19:01] LABS: Glucose Point of Care 98 (65-105)
[2020-07-10] MEDS: HEPARIN SODIUM 5,000 UNITS/ML VIAL 5000 UNITS SUB-Q (20:09)
[2020-07-10 20:37] LABS: Glucose Point of Care 194 (65-105)
[2020-07-11] VITALS (14 sets, daily range): BP systolic 143–158; BP diastolic 81–101; PULSE 84–96; RESP 16–20; TEMP 36–36.6; O2SAT 96–100
[2020-07-11 05:08] LABS: Albumin Level 3.4 g/dL (3.5-5.1); Anion Gap 8 mmol/L (8-16); Blood Urea Nitrogen 51 mg/dL (9-20); Calcium 8.9 mg/dL (8.4-10.2); Carbon Dioxide 19 mmol/L (22-30); Chloride 110 mmol/L (98-107); Estimated CRCL calculation 21 ml/min; Estimated Glomerular Filt Rate 14; Glucose 121 mg/dL (75-110); Magnesium 1.9 mg/dL (1.6-2.3); Phosphorus 6.3 mg/dL (2.5-4.5); Potassium 3.7 mmol/L (3.4-5.0); Sodium 137 mmol/L (137-145)
--- NOTE | 2020-07-11 08:11 | PM.PNCARD ---
Progress Note: A&P Assessment and Plan (1) CKD (chronic kidney disease): Code(s): N18.9 - Chronic kidney disease, unspecified Status: Acute Assessment and Plan: Nephrology following. Cr stable today aat Cr 4.4 and CrCl 21. (2) Hypertension: Code(s): I10 - Essential (primary) hypertension Status: Acute Assessment and Plan: High but fluctuates. Will monitor and adjust medication as needed. (3) Aortic valve stenosis: Qualifiers: Cardiac valve disease etiology: etiology unspecified Qualified Code(s): I35.0 - Nonrheumatic aortic (valve) stenosis Code(s): I35.0 - Nonrheumatic aortic (valve) stenosis Status: Chronic Assessment and Plan: Severe with bicuspid AV and mod MR. He will need AVR sooner than later given worsening EF. Diagnostic Right and left heart cath done 07/10/20 shows 80% distal stenosis of PL branch of LCx artery; right heart cath shows good cardiac output at 5.9 l/m with cardiac index at 2.75 and wedge pressure of 6. Discussed with patient to transfer to another hospital for AVR and possible one vessel bypass, and he agreed and wants to transfer to [facility]. (4) NSVT (nonsustained ventricular tachycardia): Code(s): I47.2 - Ventricular tachycardia Status: Acute Assessment and Plan: He had 14 beat run yesterday morning. Replete Mag with Mag Ox 400 mg BID. (5) Chest pain: Qualifiers: Chest pain type: unspecified Qualified Code(s): R07.9 - Chest pain, unspecified Code(s): R07.9 - Chest pain, unspecified Status: Acute (6) Acute on chronic combined systolic and diastolic CHF (congestive heart failure): Code(s): I50.43 - Acute on chronic combined systolic (congestive) and diastolic (congestive) heart failure Status: Acute Assessment and Plan: EF 35-40% on SVETLANA. Probably due to aortic stenosis and will need valve replacement soon. Subjective Date/time seen: 07/11/20 08:11 He is just waking up. Denies chest pain or sob at this moment. Exam Const: General: comfortable and no acute distress Neck: Neck: no JVD Carotids: no bruits Resp: Auscultation: clear to auscultation bilaterally, no crackles, no rales, no rhonchi and no wheezes Cardio: Rate: regular rate Rhythm: regular rhythm Heart sounds: Murmur heart sound present (IV/ systolic murmur RICS) GI: Inspection: non-distended : Other: Right groin femoral access site bandaged by nurse. No bruit or hematoma or tenderness. Distal pulses intact in DP and PT of right leg. Neuro: Speech: normal speech Extrem: Right lower extremity: no edema Left lower extremity: no edema Objective Data Vital Signs Vital Signs: Vital Signs - 24 hr 07/10/20 08:15 07/10/20 08:30 07/10/20 08:45 Temperature Pulse Rate 88 80 85 Pulse Rate [Bilateral Pedal (Dorsalis Pedis)] Respiratory Rate 18 14 16 Blood Pressure 149/106 H 167/89 H 154/100 H Pulse Oximetry 94 97 97 07/10/20 09:00 07/10/20 09:15 07/10/20 09:45 Temperature 97.0 F L Pulse Rate 93 78 98 Pulse Rate [Bilateral Pedal (Dorsalis Pedis)] Respiratory Rate 18 20 16 Blood Pressure 179/103 H 157/99 H 162/104 H Pulse Oximetry 98 98 95 07/10/20 10:00 07/10/20 10:17 07/10/20 11:00 Temperature 97.2 F L Pulse Rate 88 85 96 Pulse Rate [Bilateral Pedal (Dorsalis Pedis)] Respiratory Rate 18 Blood Pressure 107/72 Pulse Oximetry 100 07/10/20 12:00 07/10/20 14:30 07/10/20 14:45 Temperature 96.9 F L 97.0 F L Pulse Rate 75 78 75 Pulse Rate [Bilateral Pedal (Dorsalis Pedis)] Respiratory Rate 20 18 16 Blood Pressure 119/83 131/89 139/95 H Pulse Oximetry 100 97 95 07/10/20 15:00 07/10/20 15:15 07/10/20 15:30 Temperature 97 F L Pulse Rate 80 79 75 Pulse Rate [Bilateral Pedal (Dorsalis Pedis)] Respiratory Rate 16 16 16 Blood Pressure 135/99 H 129/99 H 148/95 H Pulse Oximetry 100 97 100 07/10/20 15:45 07/10/20 16:00 07/10/20 16:15 Temperat
[2020-07-11] MEDS: ASPIRIN 81 MG CHEWABLE TABLET PO (09:36)
[2020-07-11] MEDS: FAMOTIDINE 20 MG TABLET PO ×2 (09:36→17:16)
[2020-07-11] MEDS: ATORVASTATIN 20 MG TABLET PO (09:37)
[2020-07-11] MEDS: HEPARIN SODIUM 5,000 UNITS/ML VIAL 5000 UNITS SUB-Q (09:37)
[2020-07-11] MEDS: VENLAFAXINE HCL 75 MG TABLET 150 MG PO ×2 (09:37→17:16)
[2020-07-11] MEDS: FERROUS SULFATE 324 MG TABLET PO (09:37)
[2020-07-11] MEDS: carvediloL 12.5 MG TABLET PO (09:37)
[2020-07-11] MEDS: IRON SUCROSE COMPLEX 200 MG in SODIUM CHLORIDE 0.9% IV 50 ML 120 MG IVPB (09:38)
[2020-07-11] MEDS: amLODIPine BESYLATE 5 MG TABLET PO (09:38)
[2020-07-11 12:23] LABS: Glucose Point of Care 163 (65-105)
--- NOTE | 2020-07-11 14:45 | PM.PNNEP ---
Progress Note: A&P Assessment and Plan (1) Acute on chronic renal failure: Qualifiers: Acute renal failure type: unspecified Chronic kidney disease stage: stage 4 (severe) Qualified Code(s): N17.9 - Acute kidney failure, unspecified; N18.4 - Chronic kidney disease, stage 4 (severe) Code(s): N17.9 - Acute kidney failure, unspecified; N18.9 - Chronic kidney disease, unspecified Status: Acute Assessment and Plan: Maxime has chronic kidney disease. It is on clear exactly what his true baseline is but it seems like the best creatinine he has had since being on dialysis was around 3.6. This gives him a GFR of 18 and a stage of 4. He may have an acute component as well but not clear.. This could be from severe hypertension. the blood pressure is better. cardiorenal syndrome due to AoS and decreased LVEF. Creatinine is stable at 4.4 BP is goal (2) Hypertensive urgency: Code(s): I16.0 - Hypertensive urgency Status: Acute Assessment and Plan: Blood pressure is better with him back on his medications. (3) Acute on chronic diastolic heart failure: Code(s): I50.33 - Acute on chronic diastolic (congestive) heart failure Status: Acute Assessment and Plan: Aortic valve disease looks bad. Lexiscan shows small area of ischemia and a larger area of an infarct and an ejection fraction which is worse than what the echo showed. Cardiology is going to transfer him to [place] when a bed is available (4) Diabetes: Code(s): E11.9 - Type 2 diabetes mellitus without complications Status: Acute Assessment and Plan: He is on Accu-Cheks and sliding-scale ins (5) Anemia: Code(s): D64.9 - Anemia, unspecified Status: Acute Assessment and Plan: hemoglobin is low. T sat is low. on venofer check a CBC tomorrow Subjective Date/time seen: 07/11/20 14:45 Interval history: Patient is feeling Okay. Cardiac catheterization results noted. The patient is being transferred to [place] when a bed is available eating okay. Lying flat in bed and breathing okay. Review of Systems Cardiovascular: Cardiovascular: Reports no additional cardiovascular complaints Respiratory: Respiratory: Reports no additional respiratory complaints Gastrointestinal: Gastrointestinal: Reports no additional gastrointestinal complaints Genitourinary: Genitourinary: Reports no additional male genitourinary complaints Exam Narrative: Exam Narrative: well developed well-nourished gentleman lying in hospital bed in no acute distress Skin no rashor sq nodules Head normocephalic atraumatic Lungs clear Heart regular rate and rhythm no rub or gallop Abdomen bowel sounds positive soft nontender Extremities no edema or cyanosis Objective Data Vital Signs Vital Signs: Vital Signs - 24 hr 07/10/20 15:00 07/10/20 15:15 07/10/20 15:30 Temperature 36.1 C L Pulse Rate 80 79 75 Pulse Rate [Bilateral Pedal (Dorsalis Pedis)] Respiratory Rate 16 16 16 Blood Pressure 135/99 H 129/99 H 148/95 H Pulse Oximetry 100 97 100 07/10/20 15:45 07/10/20 16:00 07/10/20 16:15 Temperature Pulse Rate 74 82 84 Pulse Rate [Bilateral Pedal (Dorsalis Pedis)] Respiratory Rate 16 16 16 Blood Pressure 149/96 H 146/103 H 156/109 H Pulse Oximetry 99 99 99 07/10/20 16:30 07/10/20 16:45 07/10/20 17:15 Temperature Pulse Rate 80 77 83 Pulse Rate [Bilateral Pedal (Dorsalis Pedis)] Respiratory Rate 16 16 15 Blood Pressure 160/102 H 154/101 H 153/97 H Pulse Oximetry 97 95 97 07/10/20 17:45 07/10/20 18:00 07/10/20 18:45 Temperature 36.1 C L Pulse Rate 76 89 89 Pulse Rate [Bilateral Pedal (Dorsalis Pedis)] Respiratory Rate 16 18 Blood Pressure 152/102 H 149/87 H Pulse Oximetry 97 100 07/10/20 19:45 07/10/20 20:00 07/10/20 20:09 Temperature 36.1 C L Pulse Rate 95 95 88 Pulse Rate [Bilateral Pedal (Dorsalis Pedi
--- NOTE | 2020-07-11 14:59 | PM.TDS ---
Transfer Discharge Sum: Prov Provider Date of admission: 07/09/20 19:26 Primary care physician: Aquilino Burris MD Admitting clinician: Byron Adams MD Consults: 07/07/20 19:55 Consult to Physician Routine Comment: Consulting Provider: Harjinder Colidnres Reason for consultation: ckd, hypertension Has provider been notified: Yes 07/08/20 Consult to Physician Routine Comment: Consulting Provider: Jairo French Reason for consultation: heart failure Has provider been notified: Yes 07/10/20 Consult to Physician Routine Comment: SPOKE WITH SHERWIN Consulting Provider: Liam Pham call center specialist/MD group to consult: FELIPE Reason for consultation: POSSIBLE CARDIAC CATH Has provider been notified: Yes Attending physician on discharge: Eulogio Mendoza Discharging clinician: Eulogio Mendoza Anticipated date of transfer: 07/11/20 DS: Admitting Diagnosis Admitting Diagnosis Admitting Diagnosis: hypertensive urgency, ckd DS: Discharge Diagnosis Discharge Diagnosis (1) NSVT (nonsustained ventricular tachycardia): Code(s): I47.2 - Ventricular tachycardia Status: Acute Assessment and Plan: Patient had episode of 14 beat nonsustained V-tach. Magnesium level 1.7 and was replaced. Mag 1.9 today. (2) Acute on chronic diastolic heart failure: Code(s): I50.33 - Acute on chronic diastolic (congestive) heart failure Status: Acute Assessment and Plan: Acute on chronic diastolic heart failure may be secondary to hypertensive urgency versus worsening heart failure from aortic stenosis versus related to worsening renal function. Patient tolerating IV Lasix with subjective good UOP but output not fully documented. He is asymptomatic now. Lasix held due to contrast exposure. (3) Hypertensive urgency: Code(s): I16.0 - Hypertensive urgency Status: Acute Assessment and Plan: Patient with poorly controlled hypertension. BP peaked at 231/139. Plan to lower BP slowly. BP much better controlled. Continue Coreg and Norvasc. Monitor blood pressure closely. Hydralazine available as needed. Avapro held. (4) Elevated troponin: Code(s): R79.89 - Other specified abnormal findings of blood chemistry Status: Acute Assessment and Plan: Troponin peaked at 0.1 felt more likely related to the CHF and markedly elevated BP then ACS. Lexiscan performed 9/17 showing a small area of mild ischemia involving left ventricular apex; moderate-sized area of mild infarct involving inferolateral and anterolateral portillo of LV; global hypokinesis with LV EF 30%. EF 50-55% by surface Echo. EF 35-40% by SVETLANA. LHC showing 80% stenosis of a terminal posterolateral circumflex. Continue ASA, Lipitor and Coreg. (5) Chest pain: Qualifiers: Chest pain type: unspecified Qualified Code(s): R07.9 - Chest pain, unspecified Code(s): R07.9 - Chest pain, unspecified Status: Acute Assessment and Plan: Related to the HTN urgency. No recurrence. As above. Appreciate cardiology input. (6) Acute on chronic renal failure: Qualifiers: Acute renal failure type: unspecified Chronic kidney disease stage: stage 4 (severe) Qualified Code(s): N17.9 - Acute kidney failure, unspecified; N18.4 - Chronic kidney disease, stage 4 (severe) Code(s): N17.9 - Acute kidney failure, unspecified; N18.9 - Chronic kidney disease, unspecified Status: Acute Assessment and Plan: CKD IV related to uncontrolled HTN and DM. Cr 3.6 at last discharge in May. Here he is 4.6. He has been started on IV Lasix and making good urine (possibly related to lower the BP as well) and Cr stable (4.4 today). Renal US okay. Appreciate nephrology input. Tolerated the contrast exposure so far. (7) Diabetes mellitus: Qualifiers: Diabetes mellitus type: type 2 Diabetes mellitus intermediate insulin use: bruna
[2020-07-11 16:11] LABS: Glucose Point of Care 156 (65-105)
== END 2020-07-11 19:00 | disposition short-term general hospital (02) | DRG 286 ==
LOC: ANHED 20:13 → ANHIMU 21:55
PROVIDERS: Internal Medicine; Internal Medicine Nephrology; Specialist; Admitting Provider Family Medicine; Emergency Provider Emergency Medicine; PCP Family Medicine; Visit Provider Internal Medicine Cardiovascular Disease
PROC: (CPT 93312; principal; 2020-07-10 07:30)
PROC: 4A023N8 Measurement of Cardiac Sampling and Pressure, Bilateral, Percutaneous Approach (ICD-10-PCS; CPT 93453; principal; 2020-07-10 14:00)
DX: I13.0 Hypertensive heart and chronic kidney disease with heart failure and stage 1 through stage 4 chronic kidney disease, or unspecified chronic kidney disease (principal); I50.33 Acute on chronic diastolic (congestive) heart failure; I47.2 Ventricular tachycardia; N18.4 Chronic kidney disease, stage 4 (severe); E11.22 Type 2 diabetes mellitus with diabetic chronic kidney disease; E11.319 Type 2 diabetes mellitus with unspecified diabetic retinopathy without macular edema; E78.5 Hyperlipidemia, unspecified; I35.0 Nonrheumatic aortic (valve) stenosis; I25.10 Atherosclerotic heart disease of native coronary artery without angina pectoris; D63.1 Anemia in chronic kidney disease
CPT/HCPCS: 36415; 71045; 71046; 76775; 78452; 78580; 80048; 80069; 80076; 82570; 82607; 82728; 82746; 83036; 83540; 83550; 83735; 83880; 84156; 84300; 84443; 84484; 85025; 85027; 85380; 85999; 93005; 93017; 93306; 93312; 93320; 93325; 93460; 93926; 96372; 96374; 96375; 99285; A9270; A9502; A9540; C1769; C1887; C1894; G0378; J0280; J0360; J0461; J1644; J1756; J1815; J1940; J2250; J2785; J3010; J3475; J7030; J7040

== ENCOUNTER 2020-09-21 11:45 | Emergency (ER) | payer OTHER, SELFPAY ==
[2020-09-21] VITALS (8 sets, daily range): BP systolic 158–207; BP diastolic 89–107; PULSE 82–94; RESP 18–20; TEMP 37; O2SAT 97–100
--- NOTE | ~2020-09-21 | CT_ITS ---
EXAMINATION: CT brain wo con DATE: 09/21/2020 11:53 INDICATION: Speech deficit. TECHNIQUE: Computed tomography (CT) of the head was performed without intravenous contrast. The mA wa s adjusted according to patient size. Iterative reconstruction technique was employed. The dose-lengt h product was 605.33 mGy-cm. COMPARISON: Head CT 10/31/2019 FINDINGS: There are small old infarcts in the cerebellum bilaterally. There is old infarct in right o ccipital lobe. There is an old infarct in right parietal lobe. There is an old infarct in right front al lobe. There is an old infarct in left frontoparietal region. There is no intracranial hemorrhage, acute infarction, or abnormal intracranial mass lesion. The ventricles are normal in size. The orbits are normal. The paranasal sinuses are clear. The mastoid air cells are normal. IMPRESSION: 1. Multiple old infarcts in the brain. I called this result to Dr. Fang. Reviewed, dictated and finalized at location A. DRY PRICING CLERK
--- NOTE | ~2020-09-21 | XR_ITS ---
EXAMINATION: XR chest 1V portable DATE: 09/21/2020 12:17 INDICATION: Transient alteration of awareness. TECHNIQUE: A single frontal view of the chest was obtained on 2 radiographs. COMPARISON: Chest 2 views 07/11/2020, chest CT 06/17/2020 FINDINGS: There is no pneumonia, pleural effusion, or pneumothorax. The heart size is normal. Median sternotomy wires and mediastinal surgical clips are seen, likely from prior coronary artery bypass gr afting. Calcified right hilar and mediastinal lymph nodes are consistent with old granulomatous disea se. There is an old healed left rib fracture. IMPRESSION: 1. No acute cardiopulmonary disease. Reviewed, dictated and finalized at location A. CONTENT SPECIALIST
--- NOTE | 2020-09-21 11:47 | ECG_ITS ---
Measurements Intervals [place] Rate: 91 P: 16 NE: 161 QRS: 14 QRSD: 98 T: 101 QT: 379 QTc: 467 Interpretive Statements SINUS RHYTHM POSSIBLE LEFT ATRIAL ENLARGEMENT LEFT VENTRICULAR HYPERTROPHY WITH ST-T CHANGE INFERIOR INFARCT, AGE INDETERMINATE ABNORMAL ECG Electronically Signed On 09-22-2020 10:30:14 [facility] [place] by Jairo French D.O.
--- NOTE | 2020-09-21 11:59 | ED.NEUROSD ---
HPI - Neuro Symptoms/Deficit General Chief Complaint: Suspected CVA Stated Complaint: trouble speaking for 30 min Time Seen by Provider: 09/21/20 11:51 History of Present Illness HPI Narrative: Suddenly developed difficulty speaking at about 1115 today. Able to get out single words with effort and mild slurring. Normal comprehension. No weakness, numbness, confusion. 2 previous strokes several years ago. He had a CABG and TAVR procedure about 2 months ago. Takes a daily aspirin. History limited by aphasia. Related Data Home Medications Medication Instructions Recorded Confirmed venlafaxine 150 mg PO BID 08/30/19 08/28/20 gabapentin 300 mg capsule 300 mg PO TID cap 03/30/20 08/28/20 Lantus Solostar U-100 Insulin 22 unit SUBCUT DAILY 04/03/20 08/28/20 aspirin 81 mg tablet,delayed 81 mg PO DAILY 08/28/20 release warfarin 7.5 mg tablet 7.5 mg PO DAILY 09/25/20 Allergies Allergy/AdvReac Type Severity Reaction Status Date / Time No Known Allergies Allergy Verified 09/08/20 16:39 Review of Systems Review of Systems: All systems reviewed & are unremarkable except as noted in HPI and below Constitutional: Constitutional: Denies fever(s) Eyes: Eyes: Denies change in vision Cardiovascular: Cardiovascular: Denies chest pain Respiratory: Respiratory: Denies dyspnea Gastrointestinal: Gastrointestinal: Denies abdominal pain and Denies nausea Musculoskeletal: Musculoskeletal: Denies back pain Neurologic: Denies confusion, Denies dizziness, Denies headache(s), Denies numbness and Denies weakness [facility] Past Medical History Medical History Aortic valve stenosis bicuspid aortic valve Arthritis Chronic kidney disease Diabetic foot ulcer Diabetic foot ulcer Probing to bone Essential (primary) hypertension FHx: prostate cancer Finger fracture GERD (gastroesophageal reflux disease) Head ache Heart murmur Hiatal hernia History of cerebrovascular accident (CVA) in adulthood Hy ht/kd NOS I-IV w/o hf Hy kid NOS w cr kid I-IV Impingement syndrome of left shoulder Iron deficiency Long-term insulin use Microcytic anemia Mixed hyperlipidemia Neuropathy Peripheral vascular disease (Unknown) Pneumonia Prostate cancer screening 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 2 diabetes mellitus with hyperglycemia Surgical History Surgical History Amputation of left great toe osteomyelitis, 2020 History of carpal tunnel release History of tonsillectomy S/P aortic valve replacement Family History Family History Mother Family history of diabetes mellitus in first degree relative Family history of malignant neoplasm of breast in first degree relative Hypertension Family history of coronary artery disease Family history of arthritis Alive and well Father Hypertension Malignant neoplasm of prostate Social History Social History Social History: He lives with his in a house. Has 3 adult children and 2 step children. Worked for 16 years at the [employer]. Smoking packs per day: 2 Smoking cigarettes per day: 40.0 Years smoked: 25 Smoking pack-years: 50.00 Smoking status: Former smoker Tobacco type: cigarettes Smoking end date: 10/23/87 Alcohol intake: never Substance use: never Substance use type: does not use Gender identity (if verbalized by the patient): Male Spiritual care concerns: No Agree to blood products: Yes Exam Const: General: no acute distress and alert Orientation/consciousness: patient oriented x3 HENMT: Head: normal to inspection Eyes: Pupils: Equal, round and reactive pupils present Resp: Effort & Inspection: normal respiratory effort Auscultation: clear to auscultation bilaterally Cardio:
[2020-09-21] MEDS: LABETALOL HCL INJ 100 MG/20 ML VIAL 10 MG IV PUSH (12:11)
[2020-09-21 12:23] LABS: Glucose Point of Care 389 (65-105)
[2020-09-21 12:24] LABS: Basophils Absolute Auto 0.1 K/mm3 (0.0-0.1); Basophils Percent Auto 0.6 % (0.2-1.2); Eosinophils Absolute Auto 0.1 K/mm3 (0-0.3); Eosinophils Percent Auto 1.1 % (0-4.4); Hemoglobin 10.4 g/dL (14.0-18.0); Immature Granulocyte Absolute 0.03 K/mm3 (0.00-0.031); Immature Granulocyte Percent A 0.3 % (0-0.5); Lymphocytes Absolute Auto 3.14 K/mm3 (0.9-3.2); Lymphocytes Percent Auto 35.6 % (18.3-44.2); Mean Corpuscular HGB Conc 32.5 g/dl (32-36); Mean Corpuscular Hemoglobin 25.3 pg (26-34); Mean Corpuscular Volume 77.9 fl (80-100); Monocytes Absolute Auto 0.7 K/mm3 (0.1-0.6); Monocytes Percent Auto 7.9 % (2.6-8.5); Neutrophils Absolute Auto 4.8 K/mm3 (1.3-6.7); Neutrophils Percent Auto 54.5 % (45.5-73.1); Platelet Count Result 201 k/mm3 (150-375); Red Blood Count 4.11 M/mm3 (4.6-6.20); Red Cell Distribution Width 15.5 % (11.5-14.5); White Blood Count 8.8 K/mm3 (4.5-10.0)
[2020-09-21 12:33] LABS: Anion Gap 14 mmol/L (8-16); Blood Urea Nitrogen 59 mg/dL (9-20); Calcium 7.8 mg/dL (8.4-10.2); Carbon Dioxide 19 mmol/L (22-30); Chloride 103 mmol/L (98-107); Estimated CRCL calculation 15 ml/min; Estimated Glomerular Filt Rate 11; Glucose 401 mg/dL (75-110); Potassium 3.1 mmol/L (3.4-5.0); Sodium 136 mmol/L (137-145)
[2020-09-21 12:37] LABS: INR 1.1; Prothrombin Time 14.5 Seconds (11.1-14.7)
[2020-09-21 12:38] LABS: Partial Thromboplastin Time 28.2 SECONDS (22.3-36.8)
[2020-09-21] MEDS: niCARdipine 20 MG/200 ML 20 MG/200 ML BAG 5 MG (12:41)
[2020-09-21] MEDS: SODIUM CHLORIDE 0.9% IV 500 ML 999 ML IV CONT (12:45)
[2020-09-21] MEDS: INSULIN HUMAN REGULAR (*BKC) 100 UNITS/ML 10 UNITS IV PUSH (12:45)
[2020-09-21 12:53] LABS: Troponin I 0.143 ng/mL (0.000-0.034)
--- NOTE | 2020-09-21 13:30 | PC.NURSE ---
report called to jewell at [facility]. derek called for transport
--- NOTE | 2020-09-21 13:30 | PC.NURSE ---
called derek to transfer patient to [facility] ER. Jakob asked for lights and sirens eta 4 minutes
--- NOTE | 2020-09-21 13:36 | PC.NURSE ---
rede has arrived
[2020-09-21 13:44] LABS: Glucose Point of Care 257 (65-105)
== END 2020-09-21 14:21 | disposition short-term general hospital (02) ==
PROVIDERS: Emergency Provider Emergency Medicine; PCP Family Medicine
DX: I63.9 Cerebral infarction, unspecified (principal); R47.01 Aphasia; R29.702 NIHSS score 2; Z95.1 Presence of aortocoronary bypass graft; I25.10 Atherosclerotic heart disease of native coronary artery without angina pectoris; I35.0 Nonrheumatic aortic (valve) stenosis; M19.90 Unspecified osteoarthritis, unspecified site; E11.22 Type 2 diabetes mellitus with diabetic chronic kidney disease; I12.9 Hypertensive chronic kidney disease with stage 1 through stage 4 chronic kidney disease, or unspecified chronic kidney disease; N18.9 Chronic kidney disease, unspecified; K21.9 Gastro-esophageal reflux disease without esophagitis; D50.9 Iron deficiency anemia, unspecified; E11.51 Type 2 diabetes mellitus with diabetic peripheral angiopathy without gangrene; E11.311 Type 2 diabetes mellitus with unspecified diabetic retinopathy with macular edema; E11.40 Type 2 diabetes mellitus with diabetic neuropathy, unspecified; E78.2 Mixed hyperlipidemia; Z86.73 Personal history of transient ischemic attack (TIA), and cerebral infarction without residual deficits; Z79.82 Long term (current) use of aspirin; Z87.891 Personal history of nicotine dependence
CPT/HCPCS: 36415; 37195; 70450; 71045; 80048; 82948; 84484; 85025; 85610; 85730; 93005; 96365; 96375; 99285; J1815; J2997; J7040

== ENCOUNTER 2020-10-07 09:47 | Inpatient (IN) | payer OTHER, SELFPAY ==
[2020-10-07] VITALS (11 sets, daily range): BP systolic 156–178; BP diastolic 85–99; PULSE 76–98; RESP 14–20; TEMP 36.3–36.5; O2SAT 95–100; BMI 33.0
--- NOTE | ~2020-10-07 | CT_ITS ---
EXAMINATION: CT brain wo con DATE: 10/07/2020 12:06 INDICATION: Intracranial hemorrhage. TECHNIQUE: Computed tomography (CT) of the head was performed without intravenous contrast. The mA wa s adjusted according to patient size. Iterative reconstruction technique was employed. The dose-lengt h product was 605.33 mGy-cm. COMPARISON: Head CT 09/21/2020, brain MRI 03/07/2010 FINDINGS: There is a small old infarct in right cerebellum. There is a small old infarct in left cere bellum. There is an old infarct in right frontal lobe. There is an old infarct in right occipital lob e. There is an old infarct in left frontal lobe. There is an old infarct in left frontoparietal regio n. There is no intracranial hemorrhage, acute infarction, or abnormal intracranial mass lesion. The v entricles are normal in size. There is mild mucosal thickening in the ethmoid sinuses. The mastoid ai r cells are normal. The orbits are normal. IMPRESSION: 1. Multiple old infarcts in the brain. Reviewed, dictated and finalized at location A. R QUALITY TESTER
[2020-10-07 10:28] LABS: Basophils Absolute Auto 0.1 K/mm3 (0.0-0.1); Basophils Percent Auto 0.8 % (0.2-1.2); Eosinophils Absolute Auto 0.2 K/mm3 (0-0.3); Hematocrit 29.5 % (42.0-52.0); Hemoglobin 9.1 g/dL (14.0-18.0); Immature Granulocyte Absolute 0.08 K/mm3 (0.00-0.031); Immature Granulocyte Percent A 0.9 % (0-0.5); Lymphocytes Absolute Auto 2.24 K/mm3 (0.9-3.2); Lymphocytes Percent Auto 26.1 % (18.3-44.2); Mean Corpuscular HGB Conc 30.8 g/dl (32-36); Mean Corpuscular Hemoglobin 24.9 pg (26-34); Mean Corpuscular Volume 80.8 fl (80-100); Mean Platelet Volume 9.7 fl (7.4-10.4); Monocytes Absolute Auto 0.6 K/mm3 (0.1-0.6); Monocytes Percent Auto 7.2 % (2.6-8.5); Neutrophils Absolute Auto 5.4 K/mm3 (1.3-6.7); Platelet Count Result 182 k/mm3 (150-375); Red Blood Count 3.65 M/mm3 (4.6-6.20); Red Cell Distribution Width 16.1 % (11.5-14.5); White Blood Count 8.6 K/mm3 (4.5-10.0)
[2020-10-07 10:40] LABS: Alanine Aminotransferase 71 U/L (4-50); Albumin Level 3.4 g/dL (3.5-5.1); Alkaline Phosphatase 345 U/L (38-126); Anion Gap 10 mmol/L (8-16); Aspartate Amino Transferase 36 U/L (17-59); Bilirubin,Total 0.3 mg/dL (0.2-1.3); Blood Urea Nitrogen 52 mg/dL (9-20); Calcium 7.9 mg/dL (8.4-10.2); Carbon Dioxide 20 mmol/L (22-30); Chloride 108 mmol/L (98-107); Estimated CRCL calculation 24 ml/min; Estimated Glomerular Filt Rate 12; Glucose 190 mg/dL (75-110); Potassium 3.7 mmol/L (3.4-5.0); Sodium 138 mmol/L (137-145)
[2020-10-07 10:42] LABS: Partial Thromboplastin Time 144.7 SECONDS (22.3-36.8)
[2020-10-07 11:15] LABS: Prothrombin Time > 120.0 Seconds (11.1-14.7)
[2020-10-07 11:17] LABS: INR > 19.0
[2020-10-07] MEDS: PANTOPRAZOLE SODIUM IV 40 MG VIAL IV PUSH (11:40)
[2020-10-07] MEDS: PHYTONADIONE 5 MG TABLET 10 MG PO (11:41)
[2020-10-07 12:21] LABS: Hematocrit 28.8 % (42.0-52.0); Hemoglobin 9.3 g/dL (14.0-18.0)
--- NOTE | 2020-10-07 12:48 | ED.GENADULT ---
HPI - General Adult General Chief complaint: Recheck/Abnormal Lab/Rx Stated complaint: abnormal labs Time Seen by Provider: 10/07/20 10:04 Source: patient Mode of arrival: ambulatory Limitations: no limitations History of Present Illness HPI narrative: Patient presents for evaluation of elevated INR level which she was told was 18 after having his blood work performed yesterday. Patient states that he is on 7.5 mg of warfarin due to having a CVA on 09-21-20. He states that he has been taking it as directed. Patient states that he does have some speech difficulty from his CVA, denies any unilateral weakness. Patient states that his speech has improved since his CVA and he has not noticed any changes or decline in the past few days. He also denies any headache, nausea, vomiting, changes in vision or hearing. Patient does have a subconjunctival hemorrhage to the left eye but states it is not painful and he has no change in the vision. Patient states that he has not noticed any blood in his stools. He states he has been able to eat and drink normally and denies any abdominal pain chest pain or shortness of breath or dizziness. Patient states he is asymptomatic and not return to the emergency department because he was directed to by the lab. Related Data Home Medications Medication Instructions Recorded Confirmed warfarin 7.5 mg tablet 7.5 mg PO DAILY 09/25/20 10/06/20 famotidine 40 mg tablet 40 mg PO DAILY 10/02/20 10/06/20 furosemide 40 mg tablet 40 mg PO QAM 10/02/20 10/06/20 hydralazine 50 mg tablet 50 mg PO TID 10/02/20 10/06/20 sevelamer carbonate 800 mg tablet 800 mg PO TID 10/02/20 10/06/20 amlodipine 10 mg tablet 10 mg PO DAILY 10/06/20 10/06/20 aspirin 81 mg chewable tablet 81 mg PO DAILY 10/06/20 10/06/20 atorvastatin 80 mg tablet 80 mg PO DAILY 10/06/20 10/06/20 cholecalciferol (vitamin D3) 50 50 mcg PO DAILY 10/06/20 10/06/20 mcg (2,000 unit) capsule gabapentin 300 mg capsule 900 mg PO BID cap 10/06/20 10/06/20 insulin glargine 100 unit/mL (3 18 unit SUBCUT DAILY ml 10/06/20 10/06/20 mL) subcutaneous pen venlafaxine 100 mg tablet 75 mg PO BID tablet 10/06/20 10/06/20 Allergies Allergy/AdvReac Type Severity Reaction Status Date / Time No Known Allergies Allergy Verified 10/06/20 09:29 Review of Systems Review of Systems: Narrative: CONSTITUTIONAL: Denies fever, chills, or sweats. EYES: Reports subconjunctival hemorrhage left denies visual changes, or discharge. ENT: Denies rhinorrhea, congestion, sore throat, or otalgia. CARDIOVASCULAR: Denies chest pain, palpitations, or edema. RESPIRATORY: Denies cough or dyspnea. GASTROINTESTINAL: Denies abdominal pain, nausea, vomiting, or diarrhea. GENITOURINARY: Denies dysuria or hematuria. SKIN: Denies rash or itching. MUSCULOSKELETAL: Denies back pain, joint pain, or myalgia. NEUROLOGIC: Denies headache, numbness, dizziness, or weakness. PSYCHIATRIC: Denies anxiety or depression. [facility] Past Medical History Medical History (Updated 10/07/20 @ 12:55 by Iliana Howard PA-C) Aortic valve stenosis bicuspid aortic valve Arthritis Chronic kidney disease Diabetic foot ulcer Diabetic foot ulcer Probing to bone Essential (primary) hypertension FHx: prostate cancer Finger fracture GERD (gastroesophageal reflux disease) Head ache Heart murmur Hiatal hernia History of cerebrovascular accident (CVA) in adulthood History of stroke Hy ht/kd NOS I-IV w/o hf Hy kid NOS w cr kid I-IV Impingement syndrome of left shoulder Iron deficiency Long-term insulin use Microcytic anemia Mixed hyperlipidemia Neuropathy Peripheral vascular disease (Unknown) Pneumonia Prostate cancer screening 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
[2020-10-07] MEDS: SODIUM CHLORIDE 0.9% IV 250 ML 30 ML IV CONT (13:25)
--- NOTE | 2020-10-07 14:30 | ADMGEN ---
This patient, Pankaj Bautista, was admitted to Medical Room 243-01. Patient/family oriented to hospital policies and general routines including ID bracelet, bed and alarms, visiting hours, pain management, procedures, bathroom and other care routines, personal items, smoking policy, room service/diet, and visiting hours. Information on how to activate the Rapid Response Team has been discussed. Patient/Family are encouraged to report perceived risks to care and to ask questions if they do not understand what they are told or what they should do.
--- NOTE | 2020-10-07 17:30 | PM.IMHP ---
H&P: HPI History of Present Illness Date/Time: 10/07/20 17:30 Chief Complaint: Supratherapeutic INR. Narrative: Pankaj Bautista is an unfortunate 55-year-old male with multiple medical problems including recent CVA with residual dysarthria, coronary artery disease status post 1 vessel bypass, bicuspid aortic valve status post porcine aortic valve replacement, chronic kidney disease with history of temporary dialysis, insulin-dependent type 2 diabetes mellitus with neuropathy, hypertension, hyperlipidemia, and chronic anemia who presented to the emergency department earlier today as his INR was markedly elevated on routine labs today. He has not noticed any bleeding aside from mild left subconjunctival hemorrhage. He was started on warfarin after suffering an ischemic stroke on 09/21/2020, and has been taking 7.5 mg daily as prescribed. At the time my evaluation he has no complaints. Review of Systems Review of Systems: Narrative: Twelve systems were reviewed. He denies fever, chills, and sweats. No headache. No recent cold or flu symptoms. He denies is aphasia and concerns for aspiration. No nausea, vomiting, or diarrhea. No chest pain shortness of breath. He denies cough. Except as documented, all other systems were reviewed and are negative. [facility] Past Medical History Medical History (Updated 10/07/20 @ 14:32 by Hiwot Santiago PA-C) Arthritis Bicuspid aortic valve Severe aortic stenosis status post bioprosthetic aortic valve replacement. Cerebrovascular accident (~09/21/20) Residual dysarthria. Chronic anemia Chronic kidney disease Requiring temporary dialysis in spring 2019. Baseline creatinine is around 4.50. Combined systolic and diastolic congestive heart failure Echocardiogram dated 09/22/2020 showed moderate left ventricular hypertrophy, mild aortic stenosis, and ejection fraction of 60 to 65%, improved from 35%. Diabetic foot ulcer Essential hypertension Finger fracture Former smoker 50 pack year smoking history, quit in 1987. Gastroesophageal reflux disease Hiatal hernia History of osteomyelitis Impingement syndrome of left shoulder Insulin dependent type 2 diabetes mellitus Complicated by nephropathy, neuropathy, and retinopathy. Mixed hyperlipidemia Peripheral vascular disease Pneumonia Surgical History Surgical History (Updated 10/07/20 @ 14:25 by Hiwot Santiago PA-C) Amputation of left great toe (~2019) Secondary to osteomyelitis. History of aortic valve replacement (~07/24/20) 25 mm Inspiris bioprosthetic valve per Dr. Nam Daniels at [facility]. History of carpal tunnel release History of coronary artery bypass graft x 1 (~07/24/20) Saphenous vein graft to obtuse marginal per Dr. Nam Daniels at [facility]. History of tonsillectomy Family History Family History Mother Family history of diabetes mellitus in first degree relative Family history of malignant neoplasm of breast in first degree relative Hypertension Family history of coronary artery disease Family history of arthritis Alive and well Father Hypertension Malignant neoplasm of prostate Social History Social History (Updated 10/07/20 @ 23:48 by Hiwot Santiago PA-C) Social History: The patient lives with his in [place]. He has 3 adult children and 2 step children. Smoked 2 packs of cigarettes per day for 25 years and quit in 2007. No alcohol or illicit substance abuse. He worked at a [employer] for many years. He designates his , Aishwarya Bautista, as his surrogate decision maker and he wishes to be a full code Smoking packs per day: 2 Smoking cigarettes per day: 40.0 Years smoked: 25 Smoking pack-years: 50.00 Smoking status: Former smoker Tobacco type: cigarettes Smoking end date: 10/23/07 Alcohol intake: never Substance use: never Substance use type: does not use Gender identity (if verbalized by the patient): Male [place]
[2020-10-07] MEDS: SODIUM CHLORIDE 0.9% IV 500 ML 30 ML (17:39)
[2020-10-07] MEDS: SILVERGEL (ELTA) 45 ML 1 APPLIC TOPICAL (17:40)
[2020-10-07 18:25] LABS: Hematocrit 27.9 % (42.0-52.0); Hemoglobin 8.9 g/dL (14.0-18.0)
[2020-10-07 21:25] LABS: Prothrombin Time 46.3 Seconds (11.1-14.7)
[2020-10-08 00:31] LABS: Glucose Point of Care 183 (65-105)
[2020-10-08 00:46] LABS: Hematocrit 26.1 % (42.0-52.0); Hemoglobin 8.5 g/dL (14.0-18.0)
[2020-10-08] MEDS: ATORVASTATIN 40 MG TABLET 80 MG PO (02:29)
[2020-10-08 05:07] LABS: Hematocrit 26.6 % (42.0-52.0); Hemoglobin 8.5 g/dL (14.0-18.0); Mean Corpuscular Hemoglobin 25.2 pg (26-34); Mean Corpuscular Volume 78.9 fl (80-100); Mean Platelet Volume 9.7 fl (7.4-10.4); Platelet Count Result 171 k/mm3 (150-375); Red Blood Count 3.37 M/mm3 (4.6-6.20); Red Cell Distribution Width 16.2 % (11.5-14.5)
[2020-10-08 05:18] LABS: Prothrombin Time 46.8 Seconds (11.1-14.7)
[2020-10-08 05:19] LABS: Partial Thromboplastin Time 79.3 SECONDS (22.3-36.8)
[2020-10-08 05:21] LABS: Anion Gap 10 mmol/L (8-16); Blood Urea Nitrogen 51 mg/dL (9-20); Calcium 7.9 mg/dL (8.4-10.2); Carbon Dioxide 20 mmol/L (22-30); Chloride 111 mmol/L (98-107); Estimated CRCL calculation 21 ml/min; Estimated Glomerular Filt Rate 14; Glucose 147 mg/dL (75-110); Potassium 3.6 mmol/L (3.4-5.0); Sodium 141 mmol/L (137-145)
[2020-10-08 06:00] VITALS: BP 146/64; PULSE 99; RESP 16; TEMP 36.9; O2SAT 95
[2020-10-08 06:41] LABS: Hemoglobin A1C 9.1 % (<5.7)
--- NOTE | 2020-10-08 08:04 | PM.CNCAR ---
Assessment and Plan Assessment and plan (1) Essential hypertension: Code(s): I10 - Essential (primary) hypertension Status: Acute Assessment and Plan: Stable. (2) Supratherapeutic INR: Code(s): R79.1 - Abnormal coagulation profile Status: Acute (3) Dysarthria due to recent stroke: Code(s): I69.322 - Dysarthria following cerebral infarction Status: Acute Assessment and Plan: Unknown etiology but probably cardioembolic source due to multiple areas of infarct. He is wearing event monitor to check for PAF as a cause. Was started on Warfarin at [facility]. Would recommend continuing Warfarin at a lower dose once INR between 2-3. Once able to restart Warfarin, would try 2 mg daily dose and have him recheck INR in 4 days after restarting it. If he has bleeding such as GI bleeding, would hold off warfarin until that stops. (4) History of aortic valve replacement with bioprosthetic valve: Code(s): Z95.3 - Presence of xenogenic heart valve Status: Acute Assessment and Plan: Stable. (5) CAD (coronary artery disease), autologous vein bypass graft: Code(s): I25.810 - Atherosclerosis of coronary artery bypass graft(s) without angina pectoris Status: Acute Assessment and Plan: Stable. (6) Mixed hyperlipidemia: Code(s): E78.2 - Mixed hyperlipidemia Status: Chronic (7) Anemia: Code(s): D64.9 - Anemia, unspecified Status: Acute Assessment and Plan: He has chronic anemia probably related to CKD. History of Present Illness History of Present Illness Consult date/time: 10/08/20 08:04 Reason for consult: Anticoagulation. 55 yr old man who is my regular cardiology patient who presented to hospital for critical INR level >18. He has a history of bicuspid aortic valve S/P AVR and CABG on 07/09/20, hypertension, dyslipidemia, DM, stroke, ESRD on HD in February [address] Frazier and no longer requiring dialysis since open heart surgery, anemia, stroke. He was hospitalized at [facility] with a stroke with multiple areas of infarct suggesting a cardioembolic source with slurred speech and difficulty with word finding on 09/21/20 for 4 days. His speech is impaired but he states it is improving. He was started on Warfarin and last INR on 09/24/20 was 1.1 on warfarin 7.5 mg daily. He did not get it rechecked until I saw him on f/u 2 days ago, and I did not know he was on Warfarin until then. He has mild left eye conjunctival hemorrhage. He was given 2 units of FFP and Vitamin K yesterday and INR came down to 5.0. Normally, reports he can walk miles without any problems. Trace edema of legs. Denies sob, palpitations, orthopnea. 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 Nam Daniels at [facility]: AVR with 25 mm Inspiris bioprosthetic valve and CABG x 1 vessel with SVG to OM. 07/10/20 Cardia ccath: 80% distal PL branch of LCx. Echo/MUGA:: 09/22/20 [facility]: EF 60-65%, mod LVH, mild . 07/10/20 [facility]: EF 35-40%, mod LVE, mod LVH, severe LAE, CALEB 0.7 cm2, mild AI, mod MR. 07/08/20 Echo: EF 50-55%, mod LVE, diastolic dysfunction (E/e' 23), mild LAE, severe AV sclerosis, severe (CALEB 0.9 cm2), mild AI, mild-mod MR. 09/23/19 Echo: EF 55-60%, mild LVH, diastolic dysfunction (E/e' 13), bicuspid aortic valve with severe sclerosis and mod-severe (valve area 1.0 cm2), trace MR, mild TR, aortic root at 4.1 cm. Electrophysiology:: 08/25/20 EKG: Sinus rhythm, LVH, inferior infarct, age indeterminate. 07/07/20 EKG: Sinus rhythm, borderline T wave in high lateral leads. 02/17/20 EKG: Sinus rhythm, early precordial R/S transition. 10/31/19 EKG: Sinus rhythm, low voltage in precordial leads, inferior infarct, age indeterminate, borderline ST abnormality in lateral leads. Stress Tests:: 07/09/20 Lexiscan myoview: Small mild apical ischemia; EF 53%. 11/27/19 CTA chest: Ascending aorta dilatation at 4.2 cm. 10/31/19 CT brain: Old infarct of right cerebellum, right occipital and righ
[2020-10-08 08:40] LABS: Glucose Point of Care 197 (65-105)
[2020-10-08 09:32] VITALS: PULSE 97
[2020-10-08] MEDS: carvediloL 25 MG TABLET PO (09:32)
[2020-10-08] MEDS: FAMOTIDINE 20 MG TABLET PO (09:32)
[2020-10-08] MEDS: GABAPENTIN 300 MG CAPSULE 900 MG PO (09:33)
[2020-10-08] MEDS: SODIUM BICARBONATE TAB 650 MG TABLET PO (09:33)
[2020-10-08] MEDS: CHOLECALCIFEROL 1,000 UNITS TABLET 2000 UNITS PO (09:34)
[2020-10-08] MEDS: SEVELAMER CARBONATE 800 MG TABLET 1600 MG PO (09:35)
[2020-10-08] MEDS: FUROSEMIDE 40 MG TABLET PO (09:36)
[2020-10-08] MEDS: amLODIPine BESYLATE 5 MG TABLET 10 MG PO (09:36)
[2020-10-08] MEDS: hydrALAZINE HCL 50 MG TABLET PO ×2 (09:36→11:55)
[2020-10-08] MEDS: VENLAFAXINE HCL 75 MG TABLET PO (09:37)
[2020-10-08] MEDS: INSULIN GLARGINE (*BKC) 100 UNITS/ML 18 UNITS SUB-Q (09:38)
[2020-10-08] MEDS: ASPIRIN 81 MG CHEWABLE TABLET PO (09:41)
[2020-10-08 09:42] VITALS: PULSE 94; RESP 16; O2SAT 96
[2020-10-08] MEDS: SILVERGEL (ELTA) 45 ML 1 APPLIC TOPICAL (09:42)
--- NOTE | 2020-10-08 10:40 | P.CDI_ITS ---
CDI Query Clarification Request -CKD has been documented -10/06 creatinine 4.73 10/07 creatinine 4.9 and GFR 12 10/08 Creatinine 4.5 and GFR 14 - baseline creatinine is around 4.5 documented in H&P Please further clarify stage of CKD: * Stage 1 (GFR>90) * Stage 2 (GFR 60-89) * Stage 3 (GFR 30-59) * Stage 4 (GFR 15-29) * Stage 4 (GFR <15)
--- NOTE | 2020-10-08 10:40 | WPDCDIQUERY2 ---
CDI Query Clarification Request -CKD has been documented -10/06 creatinine 4.73 10/07 creatinine 4.9 and GFR 12 10/08 Creatinine 4.5 and GFR 14 - baseline creatinine is around 4.5 documented in H&P Please further clarify stage of CKD: Stage 1 (GFR>90) Stage 2 (GFR 60-89) Stage 3 (GFR 30-59) Stage 4 (GFR 15-29) Stage 4 (GFR <15)
[2020-10-08 11:56] LABS: Glucose Point of Care 195 (65-105)
--- NOTE | 2020-10-08 12:45 | PM.DS ---
DS: Admitting Diagnosis Admitting Diagnosis Admitting Diagnosis: Supratherapeutic INR DS: Discharge Diagnosis Discharge Diagnosis (1) Supratherapeutic INR: Code(s): R79.1 - Abnormal coagulation profile Status: Acute Assessment and Plan: INR now down to 5.0 this morning. No signs/symptoms of acute blood loss aside from left eye subconjunctival hemorrhage. Discussed with Dr. French who is okay with discharge with the stipulation that he checks his INR closely after discharge. Will do INR as ouptatient tomorrow and again on Monday for further monitoring; Dr. French will follow as outpatient and instruct the patient on to when to resume warfarin at 2mg dose per his recommendations Instructed him to return to ED if he shows s/sx of bleeding F/u with Dr. French and PCP (2) Dysarthria due to recent stroke: Code(s): I69.322 - Dysarthria following cerebral infarction Status: Acute Assessment and Plan: Stable. Unknown etiology but probably cardioembolic source due to multiple areas of infarct. He has event monitor for evaluation of paroxysmal A. fib. Warfarin for stroke ppx. Warfarin on hold for now. Further management per Dr. French. Please see above (3) Essential hypertension: Code(s): I10 - Essential (primary) hypertension Status: Acute Assessment and Plan: BP reasonable 140s sys this morning. Continue antihypertensives (4) Chronic kidney disease: Code(s): N18.9 - Chronic kidney disease, unspecified Status: Acute Assessment and Plan: Unclear his true baseline but per previous Nephrology, his best creatinine was 3.6 since being on dialysis which would have eGFR of 18 and a stage 4. His Cr 4.50 today; relatively stable since previous admissions F/u with Nephrology DS: Summary Hospital Course Reason for hospitalization: Supratherapeutic INR Hospital Course: Date of arrival: 10/07/20 Date of discharge: 10/08/20 Patient is a 55 yo male with multiple medical problems including recent CVA with residual dysarthria, coronary artery disease status post 1 vessel bypass, bicuspid aortic valve status post porcine aortic valve replacement, chronic kidney disease with history of temporary dialysis, insulin-dependent type 2 diabetes mellitus with neuropathy, hypertension, hyperlipidemia, and chronic anemia who presented to the emergency department on 10/07 as his INR was markedly elevated on routine labs. On arrival to ED, he was given 2 u FFP and given 10 mg of vitamin k orally. He had denied any reports of bleeding other than subconjunctival hemorrhage in left eye. Reportedly patient had stool guaiac positive test in the ER, however this does not appear to be well documented other then in problem list in ER note; no mention that this was done in MDM narrative and no result in Diagnostics . Cardiology was consulted from the ED. Patient admitted under this setting of supratherapeutic INR. Please see H&P for further details. Patient was admitted to the hospitalist service for further management/treatment. Warafarin was held throughout his stay. INR had trended down to 5.0 by day of discharge. Case was discussed with Dr. French who stated he was okay with patient being discharged with stipulation he obtain INR on 10/09 and 10/12 to trend the INR. He was then going to resume warfarin at 2 mg daily once this value reached below 3. Patient was to follow up with his PCP and Dr. French after discharge. He was given a new script of 2 mg warfarin daily and given strict instructions not to resume the medication until speaking with Dr. French. He was to return to the hospital if he showed any signs/symptoms of acute blood loss. Patient agreeable and comfortable with plan for discharge. Patient hemodynamically stable and in improved condition for discharge on 10/08/20
== END 2020-10-08 14:00 | disposition home or self-care (01) | DRG 948 ==
LOC: ANHED 12:55 → ANH2MED 12:58
PROVIDERS: Physician Assistant; Admitting Provider Internal Medicine; Emergency Provider Emergency Medicine; PCP Family Medicine; Visit Provider Physician Assistant
DX: R79.1 Abnormal coagulation profile (principal); N18.4 Chronic kidney disease, stage 4 (severe); Z51.81 Encounter for therapeutic drug level monitoring; Z79.01 Long term (current) use of anticoagulants; R19.5 Other fecal abnormalities; I12.9 Hypertensive chronic kidney disease with stage 1 through stage 4 chronic kidney disease, or unspecified chronic kidney disease; E11.22 Type 2 diabetes mellitus with diabetic chronic kidney disease; I69.322 Dysarthria following cerebral infarction; I25.10 Atherosclerotic heart disease of native coronary artery without angina pectoris; E78.5 Hyperlipidemia, unspecified; M19.90 Unspecified osteoarthritis, unspecified site; D64.9 Anemia, unspecified; K21.9 Gastro-esophageal reflux disease without esophagitis; K46.9 Unspecified abdominal hernia without obstruction or gangrene; E11.42 Type 2 diabetes mellitus with diabetic polyneuropathy; E11.319 Type 2 diabetes mellitus with unspecified diabetic retinopathy without macular edema; E11.65 Type 2 diabetes mellitus with hyperglycemia; E11.51 Type 2 diabetes mellitus with diabetic peripheral angiopathy without gangrene; Z95.1 Presence of aortocoronary bypass graft; Z95.2 Presence of prosthetic heart valve; Z89.412 Acquired absence of left great toe; Z87.891 Personal history of nicotine dependence; Z79.4 Long term (current) use of insulin
CPT/HCPCS: 36415; 36430; 70450; 80048; 80053; 83036; 85014; 85018; 85025; 85027; 85610; 85730; 86900; 86901; 96374; 99285; A9270; C9113; J1815; J7050; P9017

== ENCOUNTER 2020-10-09 10:36 | Outpatient (CLI) | payer OTHER, SELFPAY ==
[2020-10-09 11:34] LABS: Prothrombin Time 39.4 Seconds (11.1-14.7)
== END 2020-10-09 10:37 | disposition home or self-care (01) ==
LOC: ANHLAB 10:37
PROVIDERS: PCP Family Medicine; Visit Provider Physician Assistant
DX: R79.1 Abnormal coagulation profile (principal)
CPT/HCPCS: 36415; 85610

== ENCOUNTER 2020-10-12 09:38 | Outpatient (CLI) | payer OTHER, SELFPAY ==
[2020-10-12 09:57] LABS: Hematocrit 24.8 % (42.0-52.0); Hemoglobin 7.8 g/dL (14.0-18.0); Mean Corpuscular HGB Conc 31.5 g/dl (32-36); Mean Corpuscular Hemoglobin 25.2 pg (26-34); Mean Corpuscular Volume 80.3 fl (80-100); Platelet Count Result 159 k/mm3 (150-375); Red Blood Count 3.09 M/mm3 (4.6-6.20); Red Cell Distribution Width 16.1 % (11.5-14.5); White Blood Count 7.8 K/mm3 (4.5-10.0)
== END 2020-10-12 09:39 | disposition home or self-care (01) ==
LOC: ANHLAB 09:39
PROVIDERS: PCP Family Medicine; Visit Provider Physician Assistant
DX: D64.9 Anemia, unspecified (principal); R79.1 Abnormal coagulation profile
CPT/HCPCS: 36415; 85027

== ENCOUNTER 2020-10-13 10:04 | Outpatient (CLI) | payer OTHER, SELFPAY ==
[2020-10-13 10:54] LABS: INR 1.8; Prothrombin Time 21.1 Seconds (11.1-14.7)
== END 2020-10-13 10:05 | disposition home or self-care (01) ==
PROVIDERS: PCP Family Medicine; Visit Provider Physician Assistant
DX: R79.1 Abnormal coagulation profile (principal)
CPT/HCPCS: 36415; 85610

== ENCOUNTER 2020-11-02 11:00 | Outpatient (RCR) | payer OTHER, SELFPAY ==
--- NOTE | 2020-10-26 15:51 | STOPEVAL ---
SPEECH THERAPY INITIAL EVALUATION: Thank you for referring Pankaj Bautista to [facility].? The patient is scheduled to be seen for therapy?2x/week for 4 weeks. Please review, sign, date and return this plan of care LUCIEN. I agree with and certify that the following plan of care is medically necessary. Referring Physician Date Attending Provider: Aquilino Burris MD Referring Provider: Aquilino Burris MD * Outpatient Evaluation Start: 10/26/20 10:43 Freq: Status: Active Protocol: Document 10/26/20 10:44 BECHERERT (Rec: 10/26/20 12:37 BECHERERT [id number]) Therapy Assessment Status Assessment Status Assessment Status Evaluation Outpatient Past Medical History Past Medical History Source of Past Medical History Patient Neurological History Hx Cerebrovascular Accident (CVA) Yes: 3; 1998,2007 both were heat per pt; 2019 Hx Other Neurological Disorders Yes: h/o pinched nerves . PERIPHERAL NEUROPATHY Cardiovascular History Hx Cardiac Arrhythmia Yes Hx Cardiac Surgery Yes Hx Congestive Heart Failure Yes Hx Coronary Artery Bypass Graft Yes: x1 Hx Deep Vein Thrombosis Yes: left leg 10-15 years ago Hx Heart Murmur Yes Hx Hypercholesterolemia Yes Hx Hypertension Yes: TAKES MEDS Hx Myocardial Infarction Yes: possible Hx Valve Replacement Yes Respiratory History Hx Respiratory Disorders No Significant History Gastrointestinal History Hx Gastroesophageal Reflux Disease Yes: TAKES MED Hx Hemorrhoids Yes: 1 internal on last colonoscopy 2017 Hx Hernia Yes: HIATAL Genitourinary History Hx Dialysis Yes: previous RT CHEST CATH., Dr. Frazier d/c dialysis for now Hx Renal Disease Yes: CKD Stage 4 Musculoskeletal History Hx Amputation Yes: LEFT BIG TOE 02/06/2020 WITH WOUND VAC Hx Degenerative Disk Disease Yes Hx Fractures Yes: RIGHT TOE Hx Orthopedic Surgery Yes: CARPAL TUNNEL x4 Hx Osteomyelitis Yes: Previous ARDON CATHETER INSERTED 02/06/2020 Hematological History Hx Anemia Yes Endocrine History Hx Diabetes Yes: type II HEENT History Hx Macular Degeneration Yes: BOTH Hx Tonsillectomy Yes Hx Other HEENT Disorders Yes: UPPER AND LOWER DENTURES Integumentary History Hx Other Skin Disorders Yes: wound left foot from toe amputation, wont heal Reproductive History Hx Reproductive Disorders No Significant History Psychosocial Histo
--- NOTE | 2020-10-28 11:25 | PCSTNOTE ---
Pt cancelled appt on this date and rescheduled for tomorrow.
--- NOTE | 2020-11-05 15:22 | PCSTNOTE ---
Patient called & cancelled scheduled appointment this date due to being admitted to the hospital (renal issues)
--- NOTE | 2020-11-27 07:35 | PCSTNOTE ---
SPEECH THERAPY DISCHARGE: Attending Provider: Aquilino Burris MD Patient:Pankaj Bautista Date of :1965 The above pt presented with mild anomia & mild/moderate verbal apraxia with decline occurring with multi syllable words and in conversational speech which interfered with overall intelligibility. Pt exhibited good self awareness. Pt attended 2 treatment sessions after the initial evaluation on 10/26/20 before he was re admitted to the hospital. He has not returned to therapy at this time and will subsequently be discharged. Pt was progressing with goals. Thank you for referring this patient to [facility]. Please review, sign, date and return this discharge summary LUCIEN. I have been updated about the patient's current status and I agree with discharge from the above service at this time. Referring Physician Date
== END 2020-11-27 12:14 | disposition home or self-care (01) ==
LOC: ANHST 11:00
PROVIDERS: PCP Family Medicine; Referring Provider Family Medicine; Visit Provider Family Medicine
DX: I69.320 Aphasia following cerebral infarction (principal); I69.390 Apraxia following cerebral infarction
CPT/HCPCS: 92507; 92523

== ENCOUNTER 2020-11-03 10:09 | Inpatient (IN) | payer OTHER, SELFPAY ==
--- NOTE | 2020-11-03 | ECHO_ITS ---
Patient Info Name: Pankaj Bautista Age: 55 years : 1965 Gender: Male Ht: 70 in Wt: 246 lbs BSA: 2.39 m2 HR: 82 bpm BP: 137 / 93 mmHg Technical Quality: Good Exam Date: 11/03/2020 2:11 PM Exam Location: [facility] [place] Patient Status: Inpatient Admit Date: 11/03/2020 Staff Ordering Physician: Hector Martinez MD [employer] Supervisor: Marc Pichardo RDCS, RT Attending Provider: Hector Martinez MD Referring Physician: Juan LOBO; Exam Type: CA echo doppler color flow Study Info Indications - anasarca - prosthetic aortic valve Complete two-dimensional, color flow and Doppler transthoracic echocardiogram is performed. Summary 1. Complete two-dimensional, color flow and Doppler transthoracic echocardiogram is performed. 2. Left ventricular chamber dimension is mildly enlarged. 3. Left ventricular systolic function is normal, estimated at 55-60%. 4. There is moderately increased left ventricular wall thickness. 5. The left ventricular diastolic function is grade III diastolic dysfunction. 6. E/e' 21 is elevated. 7. Global longitudinal strain is abnormal at -10.2%. 8. Right ventricular systolic function is reduced based on a TAPSE 1.4 cm.. 9. Left atrial chamber dimension is moderately enlarged. 10. Normal appearing bioprosthetic aortic valve. 11. There is mild mitral valve regurgitation. 12. There is mild tricuspid valve regurgitation. 13. Dilated inferior vena cava with >50% collapse upon inspiration consistent with elevated right atrial pressure, 10 mmHg. Left Ventricle E/e' 21 is elevated. Global longitudinal strain is abnormal at -10.2%. Left ventricular chamber dimension is mildly enlarged. Left ventricular systolic function is normal, estimated at 55-60%. There is moderately increased left ventricular wall thickness. The left ventricular diastolic function is grade III diastolic dysfunction. Right Ventricle Right ventricular systolic function is reduced based on a TAPSE 1.4 cm.. Right ventricular chamber dimension is not well visualized. Left Atria Left atrial chamber dimension is moderately enlarged. Right Atria Right atrial chamber dimension is normal. Aortic Valve Normal appearing bioprosthetic aortic valve. There is no bioprosthetic aortic valve stenosis. There is no regurgitation of the bioprosthetic aortic valve. Pulmonic Valve There is no pulmonic regurgitation. Mitral Valve There is no mitral valve stenosis. There is mild mitral valve regurgitation. Tricuspid Valve There is mild tricuspid valve regurgitation. RVSP is not calculated due to an inadequate TR jet. Pericardium/Pleural There is no pericardial effusion. Inferior Vena Cava Dilated inferior vena cava with >50% collapse upon inspiration consistent with elevated right atrial pressure, 10 mmHg. Aorta The aortic root size at the sinus of Valsalva is not well visualized. Left Ventricular Outflow Tract Name Value Normal LVOT 2D LVOT Diameter 1.9 cm LVOT Doppler LVOT Peak Gradient 8 mmHg LVOT Mean Gradient 5 mmHg LVOT VTI
--- NOTE | ~2020-11-03 | XR_ITS ---
EXAMINATION: XR chest 2V EXAM DATE: 11/03/2020 11:00 INDICATION: Shortness of breath, anasarca. TECHNIQUE: Frontal and lateral projections of the chest obtained and reviewed. Comparison is made to prior examination from 09/21/2020. FINDINGS: Sternotomy wires are present without findings to suggest sternal dehiscence. Cardiac valve replacement. There is pulmonary vascular congestion. Some indistinct bilateral perihilar reticulation , possible mild pulmonary edema. Please clinically correlate. No confluent consolidation. No pneumoth orax. Heart is upper limits of normal in size. Mild thoracic spondylosis. IMPRESSION: Possible developing pulmonary edema. Reviewed, dictated and finalized at location B. REST BUILDER
--- NOTE | 2020-11-03 09:43 | PC.NURSE ---
This patient, Pankaj Bautista, was admitted to [address] [place] [address] Room [facility] as a direct admit from Dr. Burris. Patient/family oriented to hospital policies and general routines including ID bracelet, bed and alarms, visiting hours, pain management, procedures, bathroom and other care routines, personal items, smoking policy, room service/diet, and visiting hours. Information on how to activate the Rapid Response Team has been discussed. Patient/Family are encouraged to report perceived risks to care and to ask questions if they do not understand what they are told or what they should do.
[2020-11-03 10:07] VITALS: BP 144/72; PULSE 78; RESP 16; TEMP 35.8; O2SAT 100; BMI 35.3
--- NOTE | 2020-11-03 10:14 | ECG_ITS ---
Measurements Intervals [place] Rate: 82 P: 20 WI: 168 QRS: 46 QRSD: 85 T: 75 QT: 378 QTc: 443 Interpretive Statements SINUS RHYTHM NONSPECIFIC T-WAVE ABNORMALITY- HIGH LATERAL LEADS BORDERLINE ECG Electronically Signed On 11-03-2020 12:17:33 BREWERY WORKER by Jairo French D.O.
[2020-11-03 11:03] LABS: Basophils Absolute Auto 0.1 K/mm3 (0.0-0.1); Basophils Percent Auto 0.9 % (0.2-1.2); Eosinophils Absolute Auto 0.1 K/mm3 (0-0.3); Eosinophils Percent Auto 1.7 % (0-4.4); Hematocrit 24.5 % (42.0-52.0); Hemoglobin 7.4 g/dL (14.0-18.0); Immature Granulocyte Absolute 0.02 K/mm3 (0.00-0.031); Immature Granulocyte Percent A 0.3 % (0-0.5); Lymphocytes Absolute Auto 1.21 K/mm3 (0.9-3.2); Lymphocytes Percent Auto 21.2 % (18.3-44.2); Mean Corpuscular HGB Conc 30.2 g/dl (32-36); Mean Corpuscular Hemoglobin 24.6 pg (26-34); Mean Corpuscular Volume 81.4 fl (80-100); Mean Platelet Volume 9.2 fl (7.4-10.4); Monocytes Absolute Auto 0.6 K/mm3 (0.1-0.6); Monocytes Percent Auto 10.1 % (2.6-8.5); Neutrophils Absolute Auto 3.8 K/mm3 (1.3-6.7); Neutrophils Percent Auto 65.8 % (45.5-73.1); Platelet Count Result 133 k/mm3 (150-375); Red Blood Count 3.01 M/mm3 (4.6-6.20); Red Cell Distribution Width 15.4 % (11.5-14.5); White Blood Count 5.7 K/mm3 (4.5-10.0)
[2020-11-03 11:16] LABS: INR 1.5; Prothrombin Time 18.5 Seconds (11.1-14.7)
[2020-11-03 11:17] LABS: Alanine Aminotransferase 15 U/L (4-50); Albumin Level 3.6 g/dL (3.5-5.1); Alkaline Phosphatase 190 U/L (38-126); Anion Gap 8 mmol/L (8-16); Aspartate Amino Transferase 19 U/L (17-59); Bilirubin,Total 0.5 mg/dL (0.2-1.3); Blood Urea Nitrogen 41 mg/dL (9-20); Calcium 8.1 mg/dL (8.4-10.2); Carbon Dioxide 24 mmol/L (22-30); Chloride 110 mmol/L (98-107); Estimated CRCL calculation 21 ml/min; Estimated Glomerular Filt Rate 13; Glucose 146 mg/dL (75-110); Potassium 4.2 mmol/L (3.4-5.0); Sodium 142 mmol/L (137-145)
--- NOTE | 2020-11-03 11:22 | PM.CNNEP ---
Assessment and Plan Assessment and plan (1) VLAD (acute kidney injury): Code(s): N17.9 - Acute kidney failure, unspecified Status: Acute Assessment and Plan: is this really acute or simple progression of disease?? 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) - infection associated glomerulonephritis was due to his previous bout of osteomyelitis - was on temporary hemodialysis for a few months continue supportive therapy (3) Anasarca: Code(s): R60.1 - Generalized edema Status: Acute Assessment and Plan: quite severe as noted at this time start IV bumex bid + metolazone follow I/Os and daily weight if this conversative therapy fails, the next step/consideration is renal replacement therapy/dialysis (4) Anemia: Code(s): D64.9 - Anemia, unspecified Status: Acute Assessment and Plan: probably due to VLAD and CKD check iron studies as iron deficiency maybe contributing Long and extensive discussion (> 20minutes) with patient regarding his edema/anasarca, renal dysfunction, the use of high dose diuretic therapy, and the possible need to reinstitute dialysis if he fails conservative therapy. He appeared to voice understanding. Will continue to follow History of Present Illness Reason for Consult Consult date: 11/03/20 Reason for consult: acute renal failure (on chronic kidney disease) and Other (Anasarca) Chief Complaint Chief complaint: Renal Failure/Anascara History of Present Illness Narrative: The patient is a 55 year old male with an extensive medical history as outlined below who was directly admitted to [facility] due to worsening renal failure in association with anasarca. 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 Since the increase in his diuretics, his swelling edema has worsened. The patient contacted me by phone regarding this issue and since his swelling edema had not been improving with current diuretic therapy, I ordered outpatient labs that demonstrated his kidney function worsened from baseline around 3.8 mg/dL up to 4.9 mg/dL. I attempted to call the patient and tell in this information and to ascertain if he should make further changes to his diuretic therapy but was unable to get a hold of him. He subsequently went to see his primary care physician today where was noted that he had gained approximately 20-30 lb of fluid which manifested itself as edema in his upper extremities, lower extremities, and abdomen. Dr. Burris contacted me to discuss treatment options and we decided to admit the patient to the hospital for high-dose IV diuretic therapy with the potential for initiating renal replacement therapy/dialysis if he failed to improve with these conservative measures. Renal consultation was requested due to the a for mentioned worsening renal dysfunction in conjunction with his worsening swelling/edema. The patient is well known to me as I take care of his outpatient needs for his chronic kidney disease. His history is interesting in that he necessitated acute renal replacement therapy /dialysis when his kidney function deteriorated previously but his kidney function did improve somewhat to the point where dialysis was discontinued. His renal biopsy at that time demonstrated findings consistent with hypertension, diabetes and IgA associated glomerulonephritis jennifer
[2020-11-03] MEDS: metOLazone 5 MG TABLET 10 MG PO (11:33)
[2020-11-03] MEDS: BUMETANIDE INJ 2.5 MG/10 ML VIAL 2 MG IV PUSH ×2 (11:34→17:03)
[2020-11-03 12:00] LABS: Glucose Point of Care 148 (65-105)
[2020-11-03 13:00] VITALS: BP 137/93
--- NOTE | 2020-11-03 13:03 | PM.IMHP ---
H&P: HPI History of Present Illness Date/Time: 11/03/20 13:03 Chief Complaint: Swelling Narrative: Date of visit 11/03/2020 1045 Pankaj Bautista is a 55 year old male with hypertension, type 2 diabeties, chronic renal failure, and status post aortic valve replacement 08/[address] Burris's office today for follow-up on his increasing generalized edema. His diuretic had been doubled the last week and was showing no improvement. Has shortness of breath with exertion but no true PND . Relates to taking his medication faithfully. Denies any chest pain or palpitation. Last hospitalized here in September for prolonged INR and anemia. Continues on warfarin after the CVA which was thought be embolic within the last few months also. Nephrology has been contacted by Dr. Burris and myself and the plan will be IV diuresis and if no response or worsening renal status than dialysis. Review of Systems Review of Systems: Narrative: Constitutional steady weight is been it is increasing with a fluid, appetite fair to normal and no fever Eye no double vision scotoma Mouth no pharyngitis laryngitis Pulmonary as per present illness dyspnea on exertion CV no chest pain palpitation no dysuria no hematuria Muscle skeletal no particular joint discomfort Integument no skin breakdown rashes Neuropsych no seizures no syncope has had a recent VA and has the slurred speech PMFSH Past Medical History Medical History (Updated 11/03/20 @ 11:24 by Camila Frazier MD) Arthritis Bicuspid aortic valve Severe aortic stenosis status post bioprosthetic aortic valve replacement. Cerebrovascular accident (~09/21/20) Residual dysarthria. Chronic anemia Chronic kidney disease Requiring temporary dialysis in spring 2019. Baseline creatinine is around 4.50. Combined systolic and diastolic congestive heart failure Echocardiogram dated 09/22/2020 showed moderate left ventricular hypertrophy, mild aortic stenosis, and ejection fraction of 60 to 65%, improved from 35%. Diabetic foot ulcer Essential hypertension Finger fracture Former smoker 50 pack year smoking history, quit in 1987. Gastroesophageal reflux disease Hiatal hernia History of osteomyelitis Impingement syndrome of left shoulder Insulin dependent type 2 diabetes mellitus Complicated by nephropathy, neuropathy, and retinopathy. Mixed hyperlipidemia Peripheral vascular disease Pneumonia Surgical History Surgical History (Updated 10/07/20 @ 14:25 by Hiwot Santiago PA-C) Amputation of left great toe (~2019) Secondary to osteomyelitis. History of aortic valve replacement (~07/24/20) 25 mm Inspiris bioprosthetic valve per Dr. Nam Daniels at [facility]. History of carpal tunnel release History of coronary artery bypass graft x 1 (~07/24/20) Saphenous vein graft to obtuse marginal per Dr. Nam Daniels at [facility]. History of tonsillectomy Family History Family History (Updated 11/03/20 @ 13:11 by Hector Martinez MD) Mother Family history of diabetes mellitus in first degree relative Family history of malignant neoplasm of breast in first degree relative Hypertension Family history of coronary artery disease Family history of arthritis Alive and well Father Hypertension Malignant neoplasm of prostate Social History Social History Social History: The patient lives with his in [place]. He has 3 adult children and 2 step children. Smoked 2 packs of cigarettes per day for 25 years and quit in 2007. No alcohol or illicit substance abuse. He worked at a [employer] for many years. He designates his , Aishwarya Bautista, as his surrogate decision maker and he wishes to be a full code Smoking packs per day: 2 Smoking cigarettes per day: 40.0 Years smoked: 25 Smoking pack-years: 50.00 Smoking status: Former smoker Tobacco type: cigarettes Smoking end date: 10/23/07 Alcohol intake: former S
[2020-11-03] MEDS: SODIUM BICARBONATE TAB 325 MG TABLET 650 MG PO ×2 (13:34→17:03)
[2020-11-03] MEDS: hydrALAZINE HCL 50 MG TABLET PO ×2 (13:34→17:02)
[2020-11-03 15:17] LABS: Add Urine Microscopic? YES; Appearance Urine Clear (Clear); Bilirubin Urine Negative (Negative); Blood Urine Negative (Negative); Color Urine Colorless (Yellow); Glucose Urine UA 1+ mg/dL (Negative); Ketones Urine Negative (Negative); Leukocyte Esterase Ur Negative LEU/UL (NEGATIVE); Mucus Urine Rare /lpf; Nitrate Urine Negative (Negative); Protein Urine 2+ mg/dL (Negative); RBC Urine 0-2 /hpf (0-2); Urobilinogen Urine Negative mg/dL (<2.0); WBC Urine 0-3 /hpf (0-3)
[2020-11-03 16:00] VITALS: BP 159/86; PULSE 92; RESP 16; TEMP 36.3; O2SAT 95
[2020-11-03 16:20] LABS: Glucose Point of Care 177 (65-105)
[2020-11-03] MEDS: VENLAFAXINE HCL 75 MG TABLET PO (17:02)
[2020-11-03] MEDS: WARFARIN (*PBKC) 3 MG TABLET PO (17:02)
[2020-11-03] MEDS: SEVELAMER CARBONATE 800 MG TABLET 1600 MG PO (17:02)
[2020-11-03 17:03] VITALS: PULSE 100
[2020-11-03] MEDS: GABAPENTIN 300 MG CAPSULE 900 MG PO (17:03)
[2020-11-03] MEDS: carvediloL 25 MG TABLET PO (17:03)
[2020-11-03 20:00] VITALS: BP 164/81; PULSE 91; RESP 18; TEMP 36.3; O2SAT 94
[2020-11-03] MEDS: FAMOTIDINE 20 MG TABLET PO (21:09)
[2020-11-03 23:50] VITALS: BP 146/82; PULSE 90; RESP 18; TEMP 36.6; O2SAT 94
[2020-11-03 23:52] LABS: Glucose Point of Care 135 (65-105)
[2020-11-04 04:20] VITALS: BP 140/76; PULSE 85; RESP 20; TEMP 36.4; O2SAT 99
[2020-11-04 06:16] LABS: Basophils Absolute Auto 0.1 K/mm3 (0.0-0.1); Basophils Percent Auto 0.8 % (0.2-1.2); Eosinophils Absolute Auto 0.1 K/mm3 (0-0.3); Eosinophils Percent Auto 1.4 % (0-4.4); Hematocrit 24.6 % (42.0-52.0); Hemoglobin 7.2 g/dL (14.0-18.0); Immature Granulocyte Absolute 0.03 K/mm3 (0.00-0.031); Immature Granulocyte Percent A 0.5 % (0-0.5); Lymphocytes Absolute Auto 1.54 K/mm3 (0.9-3.2); Lymphocytes Percent Auto 24.2 % (18.3-44.2); Mean Corpuscular HGB Conc 29.3 g/dl (32-36); Mean Corpuscular Hemoglobin 24.1 pg (26-34); Mean Corpuscular Volume 82.3 fl (80-100); Mean Platelet Volume 9.5 fl (7.4-10.4); Monocytes Absolute Auto 0.6 K/mm3 (0.1-0.6); Monocytes Percent Auto 9.6 % (2.6-8.5); Neutrophils Absolute Auto 4.1 K/mm3 (1.3-6.7); Neutrophils Percent Auto 63.5 % (45.5-73.1); Platelet Count Result 140 k/mm3 (150-375); Red Blood Count 2.99 M/mm3 (4.6-6.20); Red Cell Distribution Width 15.6 % (11.5-14.5); White Blood Count 6.4 K/mm3 (4.5-10.0)
[2020-11-04 06:26] LABS: Anion Gap 9 mmol/L (8-16); Blood Urea Nitrogen 41 mg/dL (9-20); Calcium 7.8 mg/dL (8.4-10.2); Carbon Dioxide 24 mmol/L (22-30); Chloride 109 mmol/L (98-107); Estimated CRCL calculation 20 ml/min; Estimated Glomerular Filt Rate 12; Glucose 128 mg/dL (75-110); Potassium 3.9 mmol/L (3.4-5.0); Sodium 142 mmol/L (137-145)
[2020-11-04 06:35] LABS: INR 1.4; Prothrombin Time 18.1 Seconds (11.1-14.7)
[2020-11-04 06:48] LABS: Iron 22 ug/dL (49-181)
[2020-11-04 07:03] LABS: Percent Iron Saturation 6 % (20-50)
[2020-11-04 07:18] LABS: Hepatitis B Surface Antigen Negative (Negative)
[2020-11-04 07:24] LABS: HAV RESULT Negative (Negative); Hepatitis B Core IgM Result Negative (Negative)
[2020-11-04 07:36] LABS: Hepatitis B Surface Anti Res Negative; Hepatitis C Virus Antibody Negative (Negative)
[2020-11-04 07:56] LABS: Glucose Point of Care 123 (65-105)
[2020-11-04 09:50] VITALS: PULSE 88
[2020-11-04] MEDS: carvediloL 25 MG TABLET PO ×2 (09:50→16:59)
[2020-11-04] MEDS: SEVELAMER CARBONATE 800 MG TABLET 1600 MG PO ×2 (09:50→17:00)
[2020-11-04] MEDS: CHOLECALCIFEROL 1,000 UNITS TABLET 2000 UNITS PO (09:50)
[2020-11-04] MEDS: ATORVASTATIN 40 MG TABLET 80 MG PO (09:51)
[2020-11-04] MEDS: ASPIRIN 81 MG CHEWABLE TABLET PO (09:51)
[2020-11-04] MEDS: VENLAFAXINE HCL 75 MG TABLET PO ×2 (09:51→17:11)
[2020-11-04] MEDS: amLODIPine BESYLATE 5 MG TABLET 10 MG PO (09:51)
[2020-11-04] MEDS: metOLazone 5 MG TABLET PO (09:51)
[2020-11-04] MEDS: hydrALAZINE HCL 50 MG TABLET PO ×3 (09:51→17:00)
[2020-11-04] MEDS: INSULIN GLARGINE (*BKC) 100 UNITS/ML 18 UNITS SUB-Q (09:52)
[2020-11-04] MEDS: BUMETANIDE INJ 2.5 MG/10 ML VIAL 2 MG IV PUSH ×2 (09:52→16:59)
[2020-11-04] MEDS: SODIUM BICARBONATE TAB 325 MG TABLET 650 MG PO (09:52)
[2020-11-04] MEDS: FAMOTIDINE 20 MG TABLET PO ×2 (09:52→21:02)
[2020-11-04] MEDS: GABAPENTIN 300 MG CAPSULE 900 MG PO ×2 (09:52→17:00)
[2020-11-04 11:50] LABS: Glucose Point of Care 182 (65-105)
[2020-11-04] MEDS: IRON SUCROSE COMPLEX 200 MG in SODIUM CHLORIDE 0.9% IV 50 ML 120 MG IVPB (12:19)
[2020-11-04] MEDS: SODIUM BICARBONATE TAB 650 MG TABLET PO ×2 (12:19→17:00)
[2020-11-04 14:22] VITALS: BP 136/72; PULSE 82; RESP 18; TEMP 36.7; O2SAT 96
--- NOTE | 2020-11-04 16:04 | PM.IMPN ---
Progress Note: A&P Assessment and Plan (1) Anasarca: Code(s): R60.1 - Generalized edema Status: Acute Assessment and Plan: Diffuse edema felt on the basis of the acute on chronic renal failure. echo EF 60% but grade 3 DD, but suspect edam secondary to renal failure. As per Nephrology will continue to diurese aggressively and if does not improve then we will proceed to dialysis (2) VLAD (acute kidney injury): Code(s): N17.9 - Acute kidney failure, unspecified Status: Acute Assessment and Plan: Renal status slowly worsening, creatinine 5.0 today. As above IV diuresis and if does not improve then probable proceed to dialysis (3) History of aortic valve replacement with bioprosthetic valve: Code(s): Z95.3 - Presence of xenogenic heart valve Status: Acute Assessment and Plan: Valve functioning well on echo. Continue beta-artie for (4) Essential hypertension: Code(s): I10 - Essential (primary) hypertension Status: Acute Assessment and Plan: Pressure well controlled continue the hydralazine and Coreg as well as amlodipine (5) Anemia: Code(s): D64.9 - Anemia, unspecified Status: Acute Assessment and Plan: Hemoglobin down to 7.2. Suspect mostl secondary to anemia chronic disease. but iron studies could be Fe def so check stool and IV Fe daily (6) Diabetes mellitus: Qualifiers: Diabetes mellitus type: type 2 Diabetes mellitus prison insulin use: with terminal gauger use Diabetes mellitus complication status: without complication Qualified Code(s): E11.9 - Type 2 diabetes mellitus without complications; Z79.4 - half-way (current) use of insulin Code(s): E11.9 - Type 2 diabetes mellitus without complications Status: Chronic Assessment and Plan: Continue Lantus insulin and sliding scale. A1c early last month with 9.1 (7) Type 2 diabetes mellitus with hyperglycemia: Qualifiers: Diabetes mellitus prison insulin use: with terminal gauger use Qualified Code(s): E11.65 - Type 2 diabetes mellitus with hyperglycemia; Z79.4 - half-way (current) use of insulin Code(s): E11.65 - Type 2 diabetes mellitus with hyperglycemia Status: Acute Assessment and Plan: As above (8) Dysarthria due to recent stroke: Code(s): I69.322 - Dysarthria following cerebral infarction Status: Acute Assessment and Plan: Thought to be possibly embolic secondary to paroxysmal AFib. Continue and the warfarin. INR 1.4 so increase warfarin 4 daily (9) DVT prophylaxis: Code(s): Z29.9 - Encounter for prophylactic measures, unspecified Status: Acute Assessment and Plan: Warfarin Subjective Date/time seen: 11/04/20 16:04 Interval history: Date of visit 11/04 55-year-old hypertensive type 2 diabetic with chronic renal failure admitted with increasing generalized edema and dyspnea on exertion. Found to have anasarca thought secondary to his renal failure and had not been responding to increased oral Lasix as an outpatient. Diuresed almost 2 L 1st 12-24 hours and feels much better. Exam Narrative: Exam Narrative: Blood pressure 136/72 pulse is 82 regular sat 96% on room air afebrile Pupil equal reactive to light sclera anicteric Neck supple Lungs clear today CV regular rate rhythm there is a faint systolic murmur and regular Abdomen is soft the nontender BS Extremities there is pitting edema of legs still but no longer in arms, still faint on abd wall Left hallucis has been amputated while dorsalis pedis 1+ symmetrical Neuro alert oriented cranial nerves 2-12 are intact with speech being dysarthric Integument no skin breakdown or rashes Objective Data Vital Signs Vital Signs: Vital Signs - 24 hr 11/03/20 17:03 11/03/20 20:00 11/03/20 23:50 Temperature 36.3 C L 36.6 C Pulse Rate 100 91 90 Respiratory Rate 18 18 Blood Pressure 164/81 H 146/82 H Pulse Oximetry
[2020-11-04 16:49] LABS: Glucose Point of Care 153 (65-105)
[2020-11-04 16:59] VITALS: PULSE 88
[2020-11-04] MEDS: WARFARIN (*PBKC) 4 MG TABLET PO (17:00)
--- NOTE | 2020-11-04 17:06 | PM.PNNEP ---
Progress Note: A&P Assessment and Plan (1) VLAD (acute kidney injury): Code(s): N17.9 - Acute kidney failure, unspecified Status: Acute Assessment and Plan: is this really acute or simple progression of disease?? 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) - infection associated glomerulonephritis was due to his previous bout of osteomyelitis - was on temporary hemodialysis for a few months continue supportive therapy (3) Anasarca: Code(s): R60.1 - Generalized edema Status: Acute Assessment and Plan: quite severe on admission but improbing continue IV bumex bid + metolazone improving but may be at the expense of kidney function follow I/Os and daily weight next step/consideration is renal replacement therapy/dialysis (4) Anemia: Code(s): D64.9 - Anemia, unspecified Status: Acute Assessment and Plan: probably due to VLAD and CKD iron deficiency noted by anemia studies start course of IV venofer empirically add Epogen tomorrow Will continue to follow Subjective Date/time seen: 11/04/20 17:06 States he feels significantly better today -- swelling/edema in his arms, legs, and abdomen have gone down considerable; he states his shirt and pants feel loose when previously they were extremely tight ; he is negative about 2.5 liters; able to sit up easier and overall feels more comfortable. Exam Narrative: Exam Narrative: General: WD/WN male in NAD Heart: normal S1 and S2; no rub Lungs: clear to auscultation Abdomen: soft, nontender, nondistended, positive bowel sounds Extremities: no cyanosis or clubbing; 2+ edema Skin: warm and dry Objective Data Vital Signs Vital Signs: Vital Signs Temp Pulse Resp BP Pulse Ox 11/04/20 16:59 88 11/04/20 14:22 36.7 C 82 18 136/72 96 11/04/20 09:50 88 11/04/20 04:20 36.4 C L 85 20 140/76 99 11/03/20 23:50 36.6 C 90 18 146/82 H 94 11/03/20 20:00 36.3 C L 91 18 164/81 H 94 Intake/Output Intake/Output: Intake & Output 11/01/20 11/02/20 11/03/20 11/04/20 23:59 23:59 23:59 23:59 Intake Total 480 1290 Output Total 2900 2100 Balance -2420 -810 Meds/Results Medications: Active Medications Generic Name Dose Route Start Last Admin Trade Name Freq PRN Reason Stop Dose Admin Acetaminophen 650 mg 11/03/20 10:09 Acetaminophen 325 Mg Tablet PO Q4H PRN Mild Pain (1-3) or Fever Amlodipine Besylate 10 mg 11/03/20 09:00 11/04/20 09:51 Amlodipine Besylate 5 Mg Tablet PO 10 mg DAILY ALEX Administration Aspirin 81 mg 11/03/20 09:00 11/04/20 09:51 Aspirin 81 Mg Chewable Tablet PO 81 mg DAILY ALEX Administration Atorvastatin Calcium 80 mg 11/03/20 09:00 11/04/20 09:51 Atorvastatin 40 Mg Tablet PO 80 mg DAILY ALEX Administration Bisacodyl 5 mg 11/03/20 10:09 Bisacodyl 5 Mg Tablet Ec PO DAILY PRN Constipation Bumetanide 2 mg 11/03/20 17:00 11/04/20 16:59 Bumetanide Inj 2.5 Mg/10 Ml Vial IV PUSH 2 mg BID ALEX Administration Carvedilol 25 mg 11/03/20 17:00 11/04/20 16:59 Carvedilol 25 Mg Tablet PO 25 mg BIDWM ALEX Administration Dextrose 12.5 gm 11/03/20 10:14 Dextrose 50% 25 Gm/50 Ml Syringe IV PUSH PRN PRN Hypoglycemia Protocol Famotidine 20 mg 11/03/20 21:00 11/04/20 09:52 Famotidine 20 Mg Tablet PO 20 mg Q12HR ALEX Administration Gabapentin 900 mg 11/03/20 17:00 11/04/20 17:00 Gabapentin 300 Mg Capsule PO 900 mg
[2020-11-04 20:00] VITALS: BP 150/80; PULSE 83; RESP 17; TEMP 36.6; O2SAT 98
[2020-11-04 20:34] LABS: IFOB Positive Control Positive; Immunochemical Fecal Occult Bl Negative (N)
[2020-11-04 21:07] LABS: Glucose Point of Care 189 (65-105)
[2020-11-04 23:54] VITALS: BP 168/83; PULSE 83; RESP 17; TEMP 36.6; O2SAT 94
[2020-11-05] VITALS (7 sets, daily range): BP systolic 124–150; BP diastolic 64–91; PULSE 78–84; RESP 17–26; TEMP 36.4–36.6; O2SAT 96–99
[2020-11-05 06:50] LABS: INR 1.5; Prothrombin Time 18.3 Seconds (11.1-14.7)
[2020-11-05 06:53] LABS: Albumin Level 3.5 g/dL (3.5-5.1); Anion Gap 8 mmol/L (8-16); Blood Urea Nitrogen 46 mg/dL (9-20); Carbon Dioxide 23 mmol/L (22-30); Chloride 109 mmol/L (98-107); Estimated CRCL calculation 20 ml/min; Estimated Glomerular Filt Rate 12; Glucose 105 mg/dL (75-110); Phosphorus 5.8 mg/dL (2.5-4.5); Potassium 3.9 mmol/L (3.4-5.0); Sodium 140 mmol/L (137-145)
[2020-11-05 08:15] LABS: Glucose Point of Care 112 (65-105)
[2020-11-05] MEDS: GABAPENTIN 300 MG CAPSULE 900 MG PO ×2 (08:28→16:44)
[2020-11-05] MEDS: SODIUM BICARBONATE TAB 650 MG TABLET PO ×3 (08:28→16:45)
[2020-11-05] MEDS: FAMOTIDINE 20 MG TABLET PO ×2 (08:28→20:37)
[2020-11-05] MEDS: hydrALAZINE HCL 50 MG TABLET PO ×3 (08:28→16:44)
[2020-11-05] MEDS: VENLAFAXINE HCL 75 MG TABLET PO ×2 (08:28→16:44)
[2020-11-05] MEDS: ATORVASTATIN 40 MG TABLET 80 MG PO (08:28)
[2020-11-05] MEDS: SEVELAMER CARBONATE 800 MG TABLET 1600 MG PO ×2 (08:29→16:44)
[2020-11-05] MEDS: CHOLECALCIFEROL 1,000 UNITS TABLET 2000 UNITS PO (08:29)
[2020-11-05] MEDS: amLODIPine BESYLATE 5 MG TABLET 10 MG PO (08:29)
[2020-11-05] MEDS: carvediloL 25 MG TABLET PO ×2 (08:29→16:45)
[2020-11-05] MEDS: metOLazone 5 MG TABLET PO (08:29)
[2020-11-05] MEDS: ASPIRIN 81 MG CHEWABLE TABLET PO (08:29)
[2020-11-05] MEDS: BUMETANIDE INJ 2.5 MG/10 ML VIAL 2 MG IV PUSH ×2 (08:30→16:44)
[2020-11-05] MEDS: INSULIN GLARGINE (*BKC) 100 UNITS/ML 18 UNITS SUB-Q (08:37)
[2020-11-05] MEDS: IRON SUCROSE COMPLEX 200 MG in SODIUM CHLORIDE 0.9% IV 50 ML 120 MG IVPB (08:40)
[2020-11-05 11:46] LABS: Glucose Point of Care 140 (65-105)
--- NOTE | 2020-11-05 15:38 | P.PNNP_ITS ---
Progress Note: A&P Assessment and Plan (1) VLAD (acute kidney injury): Code(s): N17.9 - Acute kidney failure, unspecified Status: Acute Assessment and Plan: * is this really acute or simple progression of disease?? 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) - infection associated glomerulonephritis was due to his previous bout of osteomyelitis - was on temporary hemodialysis for a few months * continue supportive therapy (3) Anasarca: Code(s): R60.1 - Generalized edema Status: Acute Assessment and Plan: * quite severe on admission but improbing * continue IV bumex bid + metolazone * improving but may be at the expense of kidney function * follow I/Os and daily weight * likely transition to oral bumex tomorrow (4) Anemia: Code(s): D64.9 - Anemia, unspecified Status: Acute Assessment and Plan: * probably due to VLAD and CKD * iron deficiency noted by anemia studies * on IV venofer * empirically on Epogen while hospitalized Will continue to follow Subjective Date/time seen: 11/05/20 15:38 Exam Narrative: Exam Narrative: General: WD/WN male in NAD Heart: normal S1 and S2; no rub Lungs: clear to auscultation Abdomen: soft, nontender, nondistended, positive bowel sounds Extremities: no cyanosis or clubbing; 2+ edema Skin: warm and dry Objective Data Vital Signs Vital Signs: Vital Signs Temp Pulse Resp BP Pulse Ox 11/05/20 13:45 36.5 C 79 24 H 129/77 99 11/05/20 09:57 36.5 C 78 26 H 139/84 97 11/05/20 08:29 81 11/05/20 04:29 36.4 C L 80 20 145/87 H 99 11/04/20 23:54 36.6 C 83 17 168/83 H 94 11/04/20 20:00 36.6 C 83 17 150/80 H 98 Intake/Output Intake/Output: Intake & Output 11/02/20 11/03/20 11/04/20 11/05/20 23:59 23:59 23:59 23:59 Intake Total 480 1530 1920 Output Total 2902 7165 2431 Balance -2420 -970 -955 Meds/Results Medications: Active Medications Generic Name Dose Route Start Last Admin Trade Name Freq PRN Reason Stop Dose Admin Acetaminophen 650 mg 11/03/20 10:09 Acetaminophen 325 Mg Tablet PO Q4H PRN Mild Pain (1-3) or Fever Amlodipine Besylate 10 mg 11/03/20 09:00 11/05/20 08:29 Amlodipine Besylate 5 Mg Tablet PO 10 mg DAILY ALEX Administration Aspirin 81 mg 11/03/20 09:00 11/05/20 08:29 Aspirin 81 Mg Chewable Tablet PO 81 mg DAILY ALEX Administration Atorvastatin Calcium 80 mg 11/03/20 09:00 11/05/20 08:28 Atorvastatin 40 Mg Tablet PO 80 mg DAILY ALEX Administration Bisacodyl 5 mg 11/03/20 10:09 Bisacodyl 5 Mg Tablet Ec PO DAILY PRN Constipation Bumetanide 2 mg 11/03/20 17:00 11/05/20 16:44 Bumetanide Inj 2.5 Mg/10 Ml Vial IV PUSH 2 mg
--- NOTE | 2020-11-05 15:38 | PM.PNNEP ---
Progress Note: A&P Assessment and Plan (1) VLAD (acute kidney injury): Code(s): N17.9 - Acute kidney failure, unspecified Status: Acute Assessment and Plan: is this really acute or simple progression of disease?? 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) - infection associated glomerulonephritis was due to his previous bout of osteomyelitis - was on temporary hemodialysis for a few months continue supportive therapy (3) Anasarca: Code(s): R60.1 - Generalized edema Status: Acute Assessment and Plan: quite severe on admission but improbing continue IV bumex bid + metolazone improving but may be at the expense of kidney function follow I/Os and daily weight likely transition to oral bumex tomorrow (4) Anemia: Code(s): D64.9 - Anemia, unspecified Status: Acute Assessment and Plan: probably due to VLAD and CKD iron deficiency noted by anemia studies on IV venofer empirically on Epogen while hospitalized Will continue to follow Subjective Date/time seen: 11/05/20 15:38 Exam Narrative: Exam Narrative: General: WD/WN male in NAD Heart: normal S1 and S2; no rub Lungs: clear to auscultation Abdomen: soft, nontender, nondistended, positive bowel sounds Extremities: no cyanosis or clubbing; 2+ edema Skin: warm and dry Objective Data Vital Signs Vital Signs: Vital Signs Temp Pulse Resp BP Pulse Ox 11/05/20 13:45 36.5 C 79 24 H 129/77 99 11/05/20 09:57 36.5 C 78 26 H 139/84 97 11/05/20 08:29 81 11/05/20 04:29 36.4 C L 80 20 145/87 H 99 11/04/20 23:54 36.6 C 83 17 168/83 H 94 11/04/20 20:00 36.6 C 83 17 150/80 H 98 Intake/Output Intake/Output: Intake & Output 01/09/1211/03/20 11/04/20 11/05/20 23:59 23:59 23:59 23:59 Intake Total 336 9860 1920 Output Total 1718 9883 4646 [facility]8332 -485 -223 Meds/Results Medications: Active Medications Generic Name Dose Route Start Last Admin Trade Name Freq PRN Reason Stop Dose Admin Acetaminophen 650 mg 11/03/20 10:09 Acetaminophen 325 Mg Tablet PO Q4H PRN Mild Pain (1-3) or Fever Amlodipine Besylate 10 mg 11/03/20 09:00 11/05/20 08:29 Amlodipine Besylate 5 Mg Tablet PO 10 mg DAILY ALEX Administration Aspirin 81 mg 11/03/20 09:00 11/05/20 08:29 Aspirin 81 Mg Chewable Tablet PO 81 mg DAILY ALEX Administration Atorvastatin Calcium 80 mg 11/03/20 09:00 11/05/20 08:28 Atorvastatin 40 Mg Tablet PO 80 mg DAILY ALEX Administration Bisacodyl 5 mg 11/03/20 10:09 Bisacodyl 5 Mg Tablet Ec PO DAILY PRN Constipation Bumetanide 2 mg 11/03/20 17:00 11/05/20 16:44 Bumetanide Inj 2.5 Mg/10 Ml Vial IV PUSH 2 mg BID ALEX Administration Carvedilol 25 mg 11/03/20 17:00 11/05/20 16:45 Carvedilol 25 Mg Tablet PO 25 mg BIDWM ALEX Administration Dextrose 12.5 gm 11/03/20 10:14 Dextrose 50% 25 Gm/50 Ml Syringe IV PUSH PRN PRN Hypoglycemia Protocol Famotidine 20 mg 11/03/20 21:00 11/05/20 08:28 Famotidine 20 Mg Tablet PO 20 mg Q12HR ALEX Administration Gabapentin 900 mg 11/03/20 17:00 11/05/20 16:44 Gabapentin 300 Mg Capsule PO 900 mg BID ALEX Administration Glucagon 1 mg 11/03/20 10:14 Glucagon For Inj 1 Mg Vial IM PRN PRN Hypoglycemia Protocol Glucose 15 gm 11/03/20 10:14 Glucose Oral Gel 15 Gm Of Glucse In 37.5 Gm Tube PO PRN PRN Hypoglycemia Protocol Hydralazine
[2020-11-05] MEDS: WARFARIN (*PBKC) 4 MG TABLET PO (16:44)
[2020-11-05 16:45] LABS: Glucose Point of Care 155 (65-105)
--- NOTE | 2020-11-05 18:11 | PM.IMPN ---
Progress Note: A&P Assessment and Plan (1) Anasarca: Code(s): R60.1 - Generalized edema Status: Acute Assessment and Plan: Diffuse edema felt on the basis of the acute on chronic renal failure. echo EF 60% but grade 3 DD, but suspect edam secondary to renal failure. As per Nephrology will continue to diurese aggressively and if does not improve then we will proceed to dialysis (2) VLAD (acute kidney injury): Code(s): N17.9 - Acute kidney failure, unspecified Status: Acute Assessment and Plan: Renal status slowly worsening, creatinine 4.9 today. As above IV diuresis and if does not improve then probable proceed to dialysis (3) History of aortic valve replacement with bioprosthetic valve: Code(s): Z95.3 - Presence of xenogenic heart valve Status: Acute Assessment and Plan: Valve functioning well on echo. Continue beta-artie (4) Essential hypertension: Code(s): I10 - Essential (primary) hypertension Status: Acute Assessment and Plan: Pressure well controlled continue the hydralazine and Coreg as well as amlodipine (5) Anemia: Code(s): D64.9 - Anemia, unspecified Status: Acute Assessment and Plan: Hemoglobin down to 7.2. Suspect mostl secondary to anemia chronic disease. but iron studies could be Fe def so check stool and IV Fe daily recheck am (6) Diabetes mellitus: Qualifiers: Diabetes mellitus type: type 2 Diabetes mellitus retirement insulin use: with retirement use Diabetes mellitus complication status: without complication Qualified Code(s): E11.9 - Type 2 diabetes mellitus without complications; Z79.4 - prison (current) use of insulin Code(s): E11.9 - Type 2 diabetes mellitus without complications Status: Chronic Assessment and Plan: Continue Lantus insulin and sliding scale. 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 Continue and the warfarin. INR 1.5 so increased warfarin 4 daily 11/04 and with inr rising continue same dose (9) DVT prophylaxis: Code(s): Z29.9 - Encounter for prophylactic measures, unspecified Status: Acute Assessment and Plan: Warfarin Subjective Date/time seen: 11/05/20 18:11 Interval history: Date of visit 11/05 55-year-old hypertensive type 2 diabetic with chronic renal failure admitted with increasing generalized edema and dyspnea on exertion. Found to have anasarca thought secondary to his renal failure and had not been responding to increased oral Lasix as an outpatient. Diuresed almost 2 L 1st 12-24 hours and continues to diurese and feels much better. 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
[2020-11-05 21:01] LABS: Glucose Point of Care 195 (65-105)
[2020-11-05] MEDS: EPOETIN ALFA-EPBX 20,000 UNITS/ML VIAL 20000 UNITS SUB-Q (21:18)
[2020-11-06] VITALS: BP 157/79; PULSE 84; RESP 18; TEMP 36.7; O2SAT 94
[2020-11-06 04:44] VITALS: BP 158/88; PULSE 82; RESP 18; TEMP 36.8; O2SAT 96
[2020-11-06 05:55] LABS: Basophils Percent Auto 0.7 % (0.2-1.2); Eosinophils Absolute Auto 0.1 K/mm3 (0-0.3); Eosinophils Percent Auto 1.8 % (0-4.4); Hematocrit 26.6 % (42.0-52.0); Immature Granulocyte Absolute 0.03 K/mm3 (0.00-0.031); Immature Granulocyte Percent A 0.5 % (0-0.5); Lymphocytes Absolute Auto 1.42 K/mm3 (0.9-3.2); Lymphocytes Percent Auto 23.4 % (18.3-44.2); Mean Corpuscular HGB Conc 30.1 g/dl (32-36); Mean Corpuscular Hemoglobin 24.5 pg (26-34); Mean Corpuscular Volume 81.3 fl (80-100); Mean Platelet Volume 9.8 fl (7.4-10.4); Monocytes Absolute Auto 0.7 K/mm3 (0.1-0.6); Monocytes Percent Auto 11.6 % (2.6-8.5); Neutrophils Absolute Auto 3.8 K/mm3 (1.3-6.7); Platelet Count Result 160 k/mm3 (150-375); Red Blood Count 3.27 M/mm3 (4.6-6.20); Red Cell Distribution Width 15.3 % (11.5-14.5); White Blood Count 6.1 K/mm3 (4.5-10.0)
[2020-11-06 06:04] LABS: Albumin Level 3.6 g/dL (3.5-5.1); Anion Gap 8 mmol/L (8-16); Blood Urea Nitrogen 43 mg/dL (9-20); Calcium 8.3 mg/dL (8.4-10.2); Carbon Dioxide 25 mmol/L (22-30); Chloride 109 mmol/L (98-107); Estimated CRCL calculation 19 ml/min; Estimated Glomerular Filt Rate 12; Glucose 116 mg/dL (75-110); Phosphorus 5.7 mg/dL (2.5-4.5); Potassium 3.9 mmol/L (3.4-5.0); Sodium 142 mmol/L (137-145)
[2020-11-06 06:06] LABS: INR 1.5; Prothrombin Time 18.9 Seconds (11.1-14.7)
[2020-11-06 07:50] LABS: Glucose Point of Care 122 (65-105)
[2020-11-06 08:31] VITALS: PULSE 87
[2020-11-06] MEDS: carvediloL 25 MG TABLET PO ×2 (08:31→17:17)
[2020-11-06] MEDS: FAMOTIDINE 20 MG TABLET PO ×2 (08:31→20:00)
[2020-11-06] MEDS: SEVELAMER CARBONATE 800 MG TABLET 1600 MG PO ×2 (08:31→17:17)
[2020-11-06] MEDS: ATORVASTATIN 40 MG TABLET 80 MG PO (08:31)
[2020-11-06] MEDS: CHOLECALCIFEROL 1,000 UNITS TABLET 2000 UNITS PO (08:32)
[2020-11-06] MEDS: VENLAFAXINE HCL 75 MG TABLET PO ×2 (08:32→17:16)
[2020-11-06] MEDS: GABAPENTIN 300 MG CAPSULE 900 MG PO ×2 (08:32→17:17)
[2020-11-06] MEDS: hydrALAZINE HCL 50 MG TABLET PO ×3 (08:32→17:17)
[2020-11-06] MEDS: BUMETANIDE INJ 2.5 MG/10 ML VIAL 2 MG IV PUSH (08:32)
[2020-11-06] MEDS: metOLazone 5 MG TABLET PO (08:32)
[2020-11-06] MEDS: SODIUM BICARBONATE TAB 650 MG TABLET PO ×3 (08:32→17:17)
[2020-11-06] MEDS: amLODIPine BESYLATE 5 MG TABLET 10 MG PO (08:32)
[2020-11-06] MEDS: ASPIRIN 81 MG CHEWABLE TABLET PO (08:32)
[2020-11-06] MEDS: EPOETIN ALFA-EPBX 10,000 UNITS/ML VIAL 10000 UNITS SUB-Q (08:33)
[2020-11-06] MEDS: IRON SUCROSE COMPLEX 200 MG in SODIUM CHLORIDE 0.9% IV 50 ML 120 MG IVPB (08:34)
[2020-11-06] MEDS: INSULIN GLARGINE (*BKC) 100 UNITS/ML 18 UNITS SUB-Q (08:34)
[2020-11-06] MEDS: INSULIN ASPART (*BKC) 100 UNITS/ML SUB-Q (12:39)
--- NOTE | 2020-11-06 12:41 | PM.PNNEP ---
Progress Note: A&P Assessment and Plan (1) VLAD (acute kidney injury): Code(s): N17.9 - Acute kidney failure, unspecified Status: Acute Assessment and Plan: is this really acute or simple progression of disease?? 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) - infection associated glomerulonephritis was due to his previous bout of osteomyelitis - was on temporary hemodialysis for a few months continue supportive therapy (3) Anasarca: Code(s): R60.1 - Generalized edema Status: Acute Assessment and Plan: quite severe on admission but improbing switch to oral bumex today improving but may be at the expense of kidney function follow I/Os and daily weight (4) Anemia: Code(s): D64.9 - Anemia, unspecified Status: Acute Assessment and Plan: probably due to VLAD and CKD iron deficiency noted by anemia studies on IV venofer empirically on Epogen while hospitalized Will continue to follow - possible discharge tomorrow from my point of view if continues to improve. Subjective Date/time seen: 11/06/20 12:41 Volume status continues to improve with ongoing IV diuresis -- upper extremity and abdominal swelling/edema has resolved and lower extremity edema has improved as well; overall, he feels significantly better with therapy to date. Exam Narrative: Exam Narrative: General: WD/WN male in NAD Heart: normal S1 and S2; no rub Lungs: clear to auscultation Abdomen: soft, nontender, nondistended, positive bowel sounds Extremities: no cyanosis or clubbing; 2+ edema Skin: warm and intact Objective Data Vital Signs Vital Signs: Vital Signs Temp Pulse Resp BP Pulse Ox 11/06/20 08:31 87 11/06/20 04:44 36.8 C 82 18 158/88 H 96 11/06/20 00:00 36.7 C 84 18 157/79 H 94 11/05/20 20:00 36.4 C 84 17 150/91 H 96 11/05/20 18:00 36.6 C 80 22 H 124/64 96 Intake/Output Intake/Output: Intake & Output 11/03/20 11/04/20 11/05/20 11/06/20 23:59 23:59 23:59 23:59 Intake Total 480 1530 2120 990 Output Total 2900 2500 3275 3150 Balance -2420 -970 -1155 -2160 Meds/Results Medications: Active Medications Generic Name Dose Route Start Last Admin Trade Name Yuliet PRN Reason Stop Dose Admin Acetaminophen 650 mg 11/03/20 10:09 Acetaminophen 325 Mg Tablet PO Q4H PRN Mild Pain (1-3) or Fever Amlodipine Besylate 10 mg 11/03/20 09:00 11/06/20 08:32 Amlodipine Besylate 5 Mg Tablet PO 10 mg DAILY ALEX Administration Aspirin 81 mg 11/03/20 09:00 11/06/20 08:32 Aspirin 81 Mg Chewable Tablet PO 81 mg DAILY ALEX Administration Atorvastatin Calcium 80 mg 11/03/20 09:00 11/06/20 08:31 Atorvastatin 40 Mg Tablet PO 80 mg DAILY ALEX Administration Bisacodyl 5 mg 11/03/20 10:09 Bisacodyl 5 Mg Tablet Ec PO DAILY PRN Constipation Bumetanide 1 mg 11/06/20 17:00 11/06/20 17:17 Bumetanide 1 Mg Tablet PO 1 mg BID ALEX Administration Carvedilol 25 mg 11/03/20 17:00 11/06/20 17:17 Carvedilol 25 Mg Tablet PO 25 mg BIDWM ALEX Administration Dextrose 12.5 gm 11/03/20 10:14 Dextrose 50% 25 Gm/50 Ml Syringe IV PUSH PRN PRN Hypoglycemia Protocol Epoetin Johnnie-epbx 10,000 units 11/06/20 09:00 11/06/20 08:33 Epoetin Johnnie-Epbx 10,000 Units/Ml Vial SUB-Q 10,000 units MOWEFR ALEX Administration Famotidine 20 mg 11/03/20 21:00 11/06/20 08:31 Famotidine 20 Mg Tablet PO 20 mg Q12HR ALEX Administration Gabapentin 900
[2020-11-06 12:47] LABS: Glucose Point of Care 257 (65-105)
[2020-11-06 14:00] VITALS: BP 143/74; PULSE 76; RESP 20; TEMP 37.1; O2SAT 100
--- NOTE | 2020-11-06 16:43 | PM.IMPN ---
Progress Note: A&P Assessment and Plan (1) Anasarca: Code(s): R60.1 - Generalized edema Status: Acute Assessment and Plan: Diffuse edema felt on the basis of the acute on chronic renal failure. echo EF 60% but grade 3 DD, but suspect edam secondary to renal failure. As per Nephrology will continue to diurese aggressively and if does not improve then we will proceed to dialysis (2) VLAD (acute kidney injury): Code(s): N17.9 - Acute kidney failure, unspecified Status: Acute Assessment and Plan: Renal status slowly worsening, creatinine 5.2 today. As above IV diuresis and if does not improve then probable proceed to dialysis (3) History of aortic valve replacement with bioprosthetic valve: Code(s): Z95.3 - Presence of xenogenic heart valve Status: Acute Assessment and Plan: Valve functioning well on echo. Continue beta-artie (4) Essential hypertension: Code(s): I10 - Essential (primary) hypertension Status: Acute Assessment and Plan: Pressure well controlled continue the hydralazine and Coreg as well as amlodipine (5) Anemia: Code(s): D64.9 - Anemia, unspecified Status: Acute Assessment and Plan: Hemoglobin down to 8.0. Suspect mostly secondary to anemia chronic disease. but iron studies could be Fe def but stool for OB neg . IV Fe daily (6) Diabetes mellitus: Qualifiers: Diabetes mellitus type: type 2 Diabetes mellitus double cut off saw operator insulin use: with double cut off saw operator use Diabetes mellitus complication status: without complication Qualified Code(s): E11.9 - Type 2 diabetes mellitus without complications; Z79.4 - jail (current) use of insulin Code(s): E11.9 - Type 2 diabetes mellitus without complications Status: Chronic Assessment and Plan: Continue Lantus insulin and sliding scale. 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 Continue and the warfarin. INR 1.5 so increased warfarin again to 5 mg daily 11/04 (9) DVT prophylaxis: Code(s): Z29.9 - Encounter for prophylactic measures, unspecified Status: Acute Assessment and Plan: Warfarin Subjective Date/time seen: 11/06/20 16:43 Interval history: Date of visit 11/06 55-year-old hypertensive type 2 diabetic with chronic renal failure admitted with increasing generalized edema and dyspnea on exertion. Found to have anasarca thought secondary to his renal failure and had not been responding to increased oral Lasix as an outpatient. Diuresed almost 2 L 1st 12-24 hours and continues to diurese at least a liter each day + output and feels much better. 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
[2020-11-06 16:52] LABS: Glucose Point of Care 192 (65-105)
[2020-11-06 17:17] VITALS: PULSE 86
[2020-11-06] MEDS: WARFARIN (*PBKC) 5 MG TABLET PO (17:17)
[2020-11-06] MEDS: BUMETANIDE 1 MG TABLET PO (17:17)
[2020-11-06 20:04] VITALS: BP 159/84; PULSE 78; RESP 16; TEMP 36.1; O2SAT 100
[2020-11-06 20:42] LABS: Glucose Point of Care 179 (65-105)
[2020-11-07 05:54] VITALS: BP 157/82; PULSE 82; RESP 16; TEMP 37.1; O2SAT 97
[2020-11-07 06:21] LABS: Basophils Percent Auto 0.6 % (0.2-1.2); Eosinophils Absolute Auto 0.1 K/mm3 (0-0.3); Eosinophils Percent Auto 1.9 % (0-4.4); Hematocrit 28.7 % (42.0-52.0); Hemoglobin 8.4 g/dL (14.0-18.0); Immature Granulocyte Absolute 0.04 K/mm3 (0.00-0.031); Immature Granulocyte Percent A 0.6 % (0-0.5); Lymphocytes Absolute Auto 1.52 K/mm3 (0.9-3.2); Lymphocytes Percent Auto 22.7 % (18.3-44.2); Mean Corpuscular HGB Conc 29.3 g/dl (32-36); Mean Corpuscular Hemoglobin 23.6 pg (26-34); Mean Corpuscular Volume 80.6 fl (80-100); Mean Platelet Volume 9.9 fl (7.4-10.4); Monocytes Absolute Auto 0.8 K/mm3 (0.1-0.6); Monocytes Percent Auto 11.5 % (2.6-8.5); Neutrophils Absolute Auto 4.2 K/mm3 (1.3-6.7); Neutrophils Percent Auto 62.7 % (45.5-73.1); Platelet Count Result 162 k/mm3 (150-375); Red Blood Count 3.56 M/mm3 (4.6-6.20); Red Cell Distribution Width 15.2 % (11.5-14.5); White Blood Count 6.7 K/mm3 (4.5-10.0)
[2020-11-07 06:26] LABS: INR 1.6; Prothrombin Time 19.7 Seconds (11.1-14.7)
[2020-11-07 06:33] LABS: Albumin Level 3.8 g/dL (3.5-5.1); Anion Gap 7 mmol/L (8-16); Blood Urea Nitrogen 43 mg/dL (9-20); Calcium 8.5 mg/dL (8.4-10.2); Carbon Dioxide 26 mmol/L (22-30); Chloride 108 mmol/L (98-107); Estimated CRCL calculation 19 ml/min; Estimated Glomerular Filt Rate 12; Glucose 161 mg/dL (75-110); Phosphorus 5.2 mg/dL (2.5-4.5); Potassium 3.7 mmol/L (3.4-5.0); Sodium 141 mmol/L (137-145)
[2020-11-07 07:32] LABS: Hypochromasia 1+ (NORMAL); Platelet Estimate Adequate (Adequate)
[2020-11-07 07:33] LABS: Anisocytosis 1+ (NORMAL); Ovalocytes 1+ (NORMAL); Poikilocytosis 1+ (NORMAL)
[2020-11-07] MEDS: BUMETANIDE 1 MG TABLET PO (08:33)
[2020-11-07] MEDS: ATORVASTATIN 40 MG TABLET 80 MG PO (08:33)
[2020-11-07] MEDS: ASPIRIN 81 MG CHEWABLE TABLET PO (08:33)
[2020-11-07] MEDS: GABAPENTIN 300 MG CAPSULE 900 MG PO (08:33)
[2020-11-07] MEDS: amLODIPine BESYLATE 5 MG TABLET 10 MG PO (08:33)
[2020-11-07 08:34] VITALS: PULSE 82
[2020-11-07] MEDS: metOLazone 5 MG TABLET PO (08:34)
[2020-11-07] MEDS: SODIUM BICARBONATE TAB 650 MG TABLET PO ×2 (08:34→12:13)
[2020-11-07] MEDS: carvediloL 25 MG TABLET PO (08:34)
[2020-11-07] MEDS: CHOLECALCIFEROL 1,000 UNITS TABLET 2000 UNITS PO (08:34)
[2020-11-07] MEDS: SEVELAMER CARBONATE 800 MG TABLET 1600 MG PO (08:34)
[2020-11-07] MEDS: hydrALAZINE HCL 50 MG TABLET PO ×2 (08:34→12:13)
[2020-11-07] MEDS: FAMOTIDINE 20 MG TABLET PO (08:34)
[2020-11-07] MEDS: VENLAFAXINE HCL 75 MG TABLET PO (08:35)
[2020-11-07] MEDS: INSULIN GLARGINE (*BKC) 100 UNITS/ML 18 UNITS SUB-Q (08:36)
[2020-11-07 08:43] LABS: Glucose Point of Care 141 (65-105)
[2020-11-07] MEDS: EPOETIN ALFA-EPBX 20,000 UNITS/ML VIAL 20000 UNITS SUB-Q (11:13)
--- NOTE | 2020-11-07 11:30 | PM.PNNEP ---
Progress Note: A&P Assessment and Plan (1) VLAD (acute kidney injury): Code(s): N17.9 - Acute kidney failure, unspecified Status: Acute Assessment and Plan: is this really acute or simple progression of disease?? tend to favor the later given significant change in volume status and relative stability since admission -- new baseline creatinine? 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 (3) Anasarca: Code(s): R60.1 - Generalized edema Status: Acute Assessment and Plan: quite severe on admission but improving on oral bumex at this time improving but may be at the partly at the expense of kidney function follow I/Os and daily weight he is approximately 9L negative since admission (4) Anemia: Code(s): D64.9 - Anemia, unspecified Status: Acute Assessment and Plan: probably due to VLAD and CKD iron deficiency noted by anemia studies on IV venofer empirically on Epogen while hospitalized No opposed to discharge from my perspective -- he can be discharged on bumex 2mg po bid and I will check outpatient labs next to follow renal function. If remains anemic, will refer to Dr. Olmos as an outpatient for Aranesp injections. Will continue to follow. Subjective Date/time seen: 11/07/20 11:00 Continues to do quite well and making reasonably urine output with oral bumex that was started yesterday; swellling/edema improving quite a bit since admission; no other acute issues or problems voiced; no apparent distress noted; no events overnight or earlier this AM. Exam Narrative: Exam Narrative: General: WD/WN male in NAD Heart: normal S1 and S2; no rub Lungs: clear to auscultation Abdomen: soft, nontender, nondistended, positive bowel sounds Extremities: no cyanosis or clubbing; 1 - 2+ edema Skin: no rash or nodules Objective Data Vital Signs Vital Signs: Vital Signs Temp Pulse Resp BP Pulse Ox 11/07/20 08:34 82 11/07/20 05:54 37.1 C 82 16 157/82 H 97 11/06/20 20:04 36.1 C L 78 16 159/84 H 100 11/06/20 17:17 86 11/06/20 14:00 37.1 C 76 20 143/74 H 100 Intake/Output Intake/Output: Intake & Output 11/04/20 11/05/20 11/06/20 11/07/20 23:59 23:59 23:59 23:59 Intake Total 1530 2120 990 360 Output Total 2500 9215 4200 1750 Balance -274 -5036 -9960 -1390 Meds/Results Medications: Active Medications Generic Name Dose Route Start Last Admin Trade Name Freq PRN Reason Stop Dose Admin Acetaminophen 650 mg 11/03/20 10:09 Acetaminophen 325 Mg Tablet PO Q4H PRN Mild Pain (1-3) or Fever Amlodipine Besylate 10 mg 11/03/20 09:00 11/07/20 08:33 Amlodipine Besylate 5 Mg Tablet PO 10 mg DAILY ALEX Administration Aspirin 81 mg 11/03/20 09:00 11/07/20 08:33 Aspirin 81 Mg Chewable Tablet PO 81 mg DAILY ALEX Administration Atorvastatin Calcium 80 mg 11/03/20 09:00 11/07/20 08:33 Atorvastatin 40 Mg Tablet PO 80 mg DAILY ALEX Administration Bisacodyl 5 mg 11/03/20 10:09 Bisacodyl 5 Mg Tablet Ec PO DAILY PRN Constipation Bumetanide 1 mg 11/06/20 17:00 11/07/20 08:33 Bumetanide 1 Mg Tablet PO 1 mg BID ALEX Administration Carvedilol 25 mg 11/03/20 17:00 11/07/20 08:34 Carvedilol 25 Mg Tablet PO 25 mg BIDWM ALEX Administration Dextrose 12.5 gm 11/03/20 10:14 Dextrose 50% 25
[2020-11-07] MEDS: IRON SUCROSE COMPLEX 200 MG in SODIUM CHLORIDE 0.9% IV 50 ML 120 MG IVPB (12:09)
--- NOTE | 2020-11-07 17:48 | PM.DS ---
DS: Admitting Diagnosis Admitting Diagnosis Admitting Diagnosis: Anasarca and shortness of breath DS: Discharge Diagnosis Discharge Diagnosis (1) Anasarca: Code(s): R60.1 - Generalized edema Status: Acute Assessment and Plan: Diffuse edema felt on the basis of the acute on chronic renal failure. echo EF 60% but grade 3 DD, but suspect edam secondary to renal failure. As per Nephrology diuresed aggressively. Approximately 10 L positive output while here with IV Bumex and p.o. metolazone Creatinine yaw slowly and was 5.1 at discharge. (2) VLAD (acute kidney injury): Code(s): N17.9 - Acute kidney failure, unspecified Status: Acute Assessment and Plan: Renal status slowly worsening, creatinine 5.1 and stable at discharge.. Was able to remove all the excess fluid with minimal change in renal status. Will follow-up with Dr. Burris and Nephrology and have a BMP EM P drawn on 11/11/2010 (3) History of aortic valve replacement with bioprosthetic valve: Code(s): Z95.3 - Presence of xenogenic heart valve Status: Acute Assessment and Plan: Valve functioning well on echo. Continue beta-artie normal EF as above of 60% with a diastolic dysfunction (4) Essential hypertension: Code(s): I10 - Essential (primary) hypertension Status: Acute Assessment and Plan: Pressure controlled continue the hydralazine and Coreg as well as amlodipine (5) Anemia: Code(s): D64.9 - Anemia, unspecified Status: Acute Assessment and Plan: Hemoglobin 8.4 at discharge. Suspect mostly secondary to anemia chronic disease. but iron studies could be Fe def but stool for OB neg . IV Fe daily while here received a total of 1000 mg IV along with the Epogen (6) Diabetes mellitus: Qualifiers: Diabetes mellitus complication status: without complication Diabetes mellitus halfway insulin use: with termite treater helper use Diabetes mellitus type: type 2 Qualified Code(s): E11.9 - Type 2 diabetes mellitus without complications; Z79.4 - manager intermediate (current) use of insulin Code(s): E11.9 - Type 2 diabetes mellitus without complications Status: Chronic Assessment and Plan: Continue Lantus insulin and sliding scale. 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 Continue and the warfarin. INR 1.6 so increased warfarin slowly while here up to 5 mg. He will have INR drawn 11/11/2020 DS: Summary Hospital Course Hospital Course: 55-year-old type 2 diabetic with chronic renal failure stage 4 admitted with worsening renal status and anasarca. He did not respond to increasing oral diuretics as out patient. Here he was seen by and IV Bumex with p.o. metolazone was added and he diuresed daily a total of approximately 10 L positive output while here. At discharge his edema had totally subsided and he was feeling much better Creatinine yaw minimally and was 5.1 at discharge in stable 2 days prior He will have Bumex 2 mg b.i.d. to substitute for his Lasix and no metolazone initially. Repeat basic metabolic profile 11/11/2020 Time Spent with Patient Time attestation: Total time spent providing and/or coordinating discharge services: 35 minutes Exam Narrative: Exam Narrative: Condition on discharge Blood pressure 150/82 pulse is 82 regular sat 97% on room air afebrile Lungs clear CV regular faint systolic murmur or a sternal border Abdomen soft nontender no masses Extremities without edema pitting edema had totally subsided Patient was up in about feeling much better and in stable condition able to be discharged home. DS: Data Data Completed and Pending Labs on day of discharge: Labs from last 24 hours 11/07/20 11/07/20 11/07/20 08:32 05:48 05:48 WBC
== END 2020-11-07 12:40 | disposition home or self-care (01) | DRG 292 ==
PROVIDERS: Internal Medicine Nephrology; Admitting Provider Internal Medicine; PCP Family Medicine; Visit Provider Internal Medicine
DX: I13.0 Hypertensive heart and chronic kidney disease with heart failure and stage 1 through stage 4 chronic kidney disease, or unspecified chronic kidney disease (principal); N17.9 Acute kidney failure, unspecified; N18.4 Chronic kidney disease, stage 4 (severe); I50.42 Chronic combined systolic (congestive) and diastolic (congestive) heart failure; R60.1 Generalized edema; E11.22 Type 2 diabetes mellitus with diabetic chronic kidney disease; E11.65 Type 2 diabetes mellitus with hyperglycemia; E11.319 Type 2 diabetes mellitus with unspecified diabetic retinopathy without macular edema; E11.40 Type 2 diabetes mellitus with diabetic neuropathy, unspecified; D63.1 Anemia in chronic kidney disease; E78.2 Mixed hyperlipidemia; I69.322 Dysarthria following cerebral infarction; Z79.01 Long term (current) use of anticoagulants; Z79.4 Long term (current) use of insulin; Z79.82 Long term (current) use of aspirin; Z87.891 Personal history of nicotine dependence; Z95.3 Presence of xenogenic heart valve
CPT/HCPCS: 36415; 71046; 80048; 80053; 80069; 80074; 81001; 82274; 82728; 83540; 83550; 84443; 85025; 85610; 86706; 93005; 93306; A9270; J1756; J1815; Q5106

== ENCOUNTER 2020-11-10 10:16 | Outpatient (CLI) | payer OTHER, SELFPAY ==
[2020-11-10 10:48] LABS: INR 2.6; Prothrombin Time 28.1 Seconds (11.1-14.7)
[2020-11-10 10:52] LABS: Albumin Level 3.7 g/dL (3.5-5.1); Anion Gap 8 mmol/L (8-16); Blood Urea Nitrogen 47 mg/dL (9-20); Carbon Dioxide 26 mmol/L (22-30); Chloride 106 mmol/L (98-107); Estimated Glomerular Filt Rate 10; Glucose 189 mg/dL (75-110); Phosphorus 5.4 mg/dL (2.5-4.5); Potassium 3.5 mmol/L (3.4-5.0); Sodium 140 mmol/L (137-145)
== END 2020-11-10 10:17 | disposition home or self-care (01) ==
PROVIDERS: PCP Family Medicine; Visit Provider Internal Medicine
DX: I63.9 Cerebral infarction, unspecified (principal); N18.4 Chronic kidney disease, stage 4 (severe)
CPT/HCPCS: 36415; 80069; 85610

== ENCOUNTER 2020-11-24 09:47 | Emergency (ER) | payer OTHER, SELFPAY ==
--- NOTE | ~2020-11-24 | XR_ITS ---
XR chest 1V portable DATE: 11/24/2020 13:17 INDICATION: Shortness of breath. TECHNIQUE: Portable AP chest COMPARISON: 11/03/2020 2 view chest FINDINGS: Status post sternotomy and coronary bypass graft surgery. There is cardiomegaly, pulmonary vascular congestion and redistribution, prominence of the minor fiss ure as well as Mine B-lines and pulmonary interstitial prominence, consistent with congestive heart failure and pulmonary edema. No pleural effusion or pneumothorax is evident. Diffuse osteopenia. IMPRESSION: Congestive heart failure, pulmonary interstitial and subpleural edema Reviewed, dictated and finalized at location A. [employer] IMPRESSION: Congestive heart failure, pulmonary interstitial and subpleural orlando glenn
[2020-11-24 09:58] VITALS: BP 166/88; PULSE 82; RESP 18; TEMP 36.6; O2SAT 99
--- NOTE | 2020-11-24 10:05 | ECG_ITS ---
Measurements Intervals [place] Rate: 81 P: 11 IL: 165 QRS: 11 QRSD: 90 T: 79 QT: 406 QTc: 472 Interpretive Statements SINUS RHYTHM CANNOT RULE OUT SEPTAL INFARCT, AGE INDETERMINATE BORDERLINE ST-T WAVE ABNORMALITY- HIGH LATERAL LEADS ABNORMAL ECG Electronically Signed On 11-24-2020 10:32:12 RN PATIENT SERVICES by Jairo French D.O.
[2020-11-24 10:49] LABS: Basophils Absolute Auto 0.1 K/mm3 (0.0-0.1); Basophils Percent Auto 0.8 % (0.2-1.2); Eosinophils Absolute Auto 0.2 K/mm3 (0-0.3); Eosinophils Percent Auto 1.7 % (0-4.4); Hematocrit 26.7 % (42.0-52.0); Hemoglobin 8.1 g/dL (14.0-18.0); Immature Granulocyte Absolute 0.04 K/mm3 (0.00-0.031); Immature Granulocyte Percent A 0.5 % (0-0.5); Lymphocytes Absolute Auto 1.82 K/mm3 (0.9-3.2); Lymphocytes Percent Auto 20.7 % (18.3-44.2); Mean Corpuscular HGB Conc 30.3 g/dl (32-36); Mean Corpuscular Hemoglobin 23.8 pg (26-34); Mean Corpuscular Volume 78.3 fl (80-100); Mean Platelet Volume 9.9 fl (7.4-10.4); Monocytes Absolute Auto 0.9 K/mm3 (0.1-0.6); Monocytes Percent Auto 10.4 % (2.6-8.5); Neutrophils Absolute Auto 5.8 K/mm3 (1.3-6.7); Neutrophils Percent Auto 65.9 % (45.5-73.1); Platelet Count Result 189 k/mm3 (150-375); Red Blood Count 3.41 M/mm3 (4.6-6.20); Red Cell Distribution Width 15.9 % (11.5-14.5); White Blood Count 8.8 K/mm3 (4.5-10.0)
[2020-11-24 11:01] LABS: Alanine Aminotransferase 19 U/L (4-50); Albumin Level 3.4 g/dL (3.5-5.1); Alkaline Phosphatase 203 U/L (38-126); Anion Gap 11 mmol/L (8-16); Aspartate Amino Transferase 21 U/L (17-59); Bilirubin,Total 0.4 mg/dL (0.2-1.3); Blood Urea Nitrogen 51 mg/dL (9-20); Calcium 7.8 mg/dL (8.4-10.2); Carbon Dioxide 18 mmol/L (22-30); Chloride 112 mmol/L (98-107); Estimated CRCL calculation 17 ml/min; Estimated Glomerular Filt Rate 10; Glucose 158 mg/dL (75-110); Potassium 4.1 mmol/L (3.4-5.0); Sodium 141 mmol/L (137-145)
--- NOTE | 2020-11-24 11:03 | ED.GENADULT ---
HPI - General Adult General Chief complaint: Unspecified Stated complaint: retaining fluid/ sent by PCP Time Seen by Provider: 11/24/20 10:02 Source: patient and family Mode of arrival: ambulatory Limitations: no limitations History of Present Illness HPI narrative: 55 years old white male brought to the emergency room by his because he been gaining weight lately. Patient had similar symptoms 3 weeks ago and was hospitalized with anasarca, acute on top of chronic renal failure. Patient denies any fever, chills, nausea, vomiting, diarrhea, constipation, abdominal pain, chest pain, shortness of breath, or any pain. Related Data Home Medications Medication Instructions Recorded Confirmed famotidine 40 mg tablet 20 mg PO BID 10/02/20 11/17/20 hydralazine 50 mg tablet 50 mg PO TID 10/02/20 11/17/20 sevelamer carbonate 800 mg tablet 1,600 mg PO BID 10/02/20 11/17/20 amlodipine 10 mg tablet 10 mg PO DAILY 10/06/20 11/17/20 aspirin 81 mg chewable tablet 81 mg PO DAILY 10/06/20 11/17/20 cholecalciferol (vitamin D3) 50 50 mcg PO DAILY 10/06/20 11/17/20 mcg (2,000 unit) capsule insulin glargine 100 unit/mL (3 18 unit SUBCUT DAILY ml 10/06/20 11/17/20 mL) subcutaneous pen venlafaxine 100 mg tablet 75 mg PO BID tablet 10/06/20 11/17/20 carvedilol 25 mg PO BIDWM 10/07/20 11/17/20 atorvastatin 80 mg PO DAILY 11/03/20 11/17/20 Allergies Allergy/AdvReac Type Severity Reaction Status Date / Time No Known Allergies Allergy Verified 11/24/20 10:02 Review of Systems Review of Systems: Narrative: CONSTITUTIONAL: Denies fever, chills, or sweats. EYES: Denies visual changes, redness, or discharge. ENT: Denies rhinorrhea, congestion, sore throat, or otalgia. CARDIOVASCULAR: Denies chest pain, palpitations, or edema. RESPIRATORY: Denies cough or dyspnea. GASTROINTESTINAL: Denies abdominal pain, nausea, vomiting, or diarrhea. GENITOURINARY: Denies dysuria or hematuria. SKIN: Denies rash or itching. MUSCULOSKELETAL: Denies back pain, joint pain, or myalgia. NEUROLOGIC: Denies headache, numbness, or weakness. PSYCHIATRIC: Denies anxiety or depression. [facility] Past Medical History Medical History Arthritis Bicuspid aortic valve Severe aortic stenosis status post bioprosthetic aortic valve replacement. Cerebrovascular accident (~09/21/20) Residual dysarthria. Chronic anemia Chronic kidney disease Requiring temporary dialysis in spring 2019. Baseline creatinine is around 4.50. Combined systolic and diastolic congestive heart failure Echocardiogram dated 09/22/2020 showed moderate left ventricular hypertrophy, mild aortic stenosis, and ejection fraction of 60 to 65%, improved from 35%. Diabetic foot ulcer Essential hypertension Finger fracture Former smoker 50 pack year smoking history, quit in 1987. Gastroesophageal reflux disease Hiatal hernia History of osteomyelitis Impingement syndrome of left shoulder Insulin dependent type 2 diabetes mellitus Complicated by nephropathy, neuropathy, and retinopathy. Mixed hyperlipidemia Peripheral vascular disease Pneumonia Surgical History Surgical History Amputation of left great toe (~2019) Secondary to osteomyelitis. History of aortic valve replacement (~07/24/20) 25 mm Inspiris bioprosthetic valve per Dr. Nam Daniels at [facility]. History of carpal tunnel release History of coronary artery bypass graft x 1 (~07/24/20) Saphenous vein graft to obtuse marginal per Dr. Nam Daniels at [facility]. History of tonsillectomy Family History Family History Mother Family history of diabetes mellitus in first degree relative Family history of malignant neoplasm of breast in first degree relative Hypertension Family history of coronary artery disease Family history of arthritis Alive and well Father Hypertension Malignant neoplasm of pr
[2020-11-24 12:24] LABS: Mucus Urine Rare /lpf; WBC Urine 0-3 /hpf
[2020-11-24 12:27] LABS: Appearance Urine Clear (Clear); Color Urine Colorless (Yellow)
[2020-11-24 12:31] LABS: Specific Grav Ur 1.025 (1.001-1.035)
[2020-11-24 12:32] LABS: Glucose Urine UA Trace mg/dL (Negative); Protein Urine 3+ mg/dL (Negative)
[2020-11-24 12:33] LABS: Add Urine Microscopic? YES; Bilirubin Urine Negative (Negative); Blood Urine 1+ (Negative); Ketones Urine Negative (Negative); Leukocyte Esterase Ur Negative LEU/UL (Negative); Nitrate Urine Negative (Negative); Urobilinogen Urine 0.2 mg/dL (<2.0)
[2020-11-24 13:42] VITALS: BP 153/96; PULSE 80; RESP 16; O2SAT 96
== END 2020-11-24 13:43 | disposition home or self-care (01) ==
PROVIDERS: Emergency Provider Emergency Medicine; PCP Family Medicine
DX: I13.0 Hypertensive heart and chronic kidney disease with heart failure and stage 1 through stage 4 chronic kidney disease, or unspecified chronic kidney disease (principal); N18.9 Chronic kidney disease, unspecified; R60.1 Generalized edema; M19.90 Unspecified osteoarthritis, unspecified site; I69.922 Dysarthria following unspecified cerebrovascular disease; E11.22 Type 2 diabetes mellitus with diabetic chronic kidney disease; I50.40 Unspecified combined systolic (congestive) and diastolic (congestive) heart failure; E11.51 Type 2 diabetes mellitus with diabetic peripheral angiopathy without gangrene; E11.319 Type 2 diabetes mellitus with unspecified diabetic retinopathy without macular edema; E11.40 Type 2 diabetes mellitus with diabetic neuropathy, unspecified; E11.21 Type 2 diabetes mellitus with diabetic nephropathy; E78.2 Mixed hyperlipidemia; K21.9 Gastro-esophageal reflux disease without esophagitis; I25.10 Atherosclerotic heart disease of native coronary artery without angina pectoris; D63.1 Anemia in chronic kidney disease; Z87.891 Personal history of nicotine dependence; Z95.2 Presence of prosthetic heart valve; Z89.412 Acquired absence of left great toe; Z95.1 Presence of aortocoronary bypass graft; Z79.4 Long term (current) use of insulin; Z79.82 Long term (current) use of aspirin; R94.31 Abnormal electrocardiogram [ECG] [EKG]
CPT/HCPCS: 36415; 71045; 80053; 81001; 85025; 93005; 99283

== ENCOUNTER 2020-12-30 10:31 | Inpatient (IN) | payer OTHER, SELFPAY ==
[2020-12-30] VITALS (27 sets, daily range): BP systolic 123–150; BP diastolic 75–89; PULSE 67–80; RESP 6–18; TEMP 36.6–36.7; O2SAT 92–100; BMI 35.7
[2020-12-30] MEDS: BUMETANIDE INJ 1 MG/4 ML VIAL IV PUSH ×2 (11:05→12:56)
[2020-12-30 11:06] LABS: Basophils Absolute Auto 0.1 K/mm3 (0.0-0.1); Basophils Percent Auto 0.7 % (0.2-1.2); Eosinophils Absolute Auto 0.1 K/mm3 (0-0.3); Eosinophils Percent Auto 1.6 % (0-4.4); Hematocrit 24.2 % (42.0-52.0); Hemoglobin 7.5 g/dL (14.0-18.0); Immature Granulocyte Absolute 0.07 K/mm3 (0.00-0.031); Immature Granulocyte Percent A 0.8 % (0-0.5); Lymphocytes Percent Auto 20.3 % (18.3-44.2); Mean Corpuscular Hemoglobin 23.8 pg (26-34); Mean Corpuscular Volume 76.8 fl (80-100); Mean Platelet Volume 9.7 fl (7.4-10.4); Monocytes Absolute Auto 0.9 K/mm3 (0.1-0.6); Monocytes Percent Auto 10.4 % (2.6-8.5); Neutrophils Absolute Auto 5.5 K/mm3 (1.3-6.7); Neutrophils Percent Auto 66.2 % (45.5-73.1); Platelet Count Result 206 k/mm3 (150-375); Red Blood Count 3.15 M/mm3 (4.6-6.20); Red Cell Distribution Width 16.5 % (11.5-14.5); White Blood Count 8.4 K/mm3 (4.5-10.0)
[2020-12-30 11:16] LABS: INR 3.3; Prothrombin Time 33.9 Seconds (11.1-14.7)
[2020-12-30 11:17] LABS: Anion Gap 14 mmol/L (8-16); Blood Urea Nitrogen 63 mg/dL (9-20); Calcium 7.5 mg/dL (8.4-10.2); Carbon Dioxide 21 mmol/L (22-30); Chloride 104 mmol/L (98-107); Estimated CRCL calculation 14 ml/min; Estimated Glomerular Filt Rate 8; Glucose 150 mg/dL (75-110); Partial Thromboplastin Time 54.7 SECONDS (22.3-36.8); Potassium 3.2 mmol/L (3.4-5.0); Sodium 139 mmol/L (137-145)
--- NOTE | 2020-12-30 12:07 | ED.GENADULT ---
HPI - General Adult General Chief complaint: Unspecified Stated complaint: Kidney failure/gaining weight Time Seen by Provider: 12/30/20 10:33 History of Present Illness HPI narrative: Patient is a 55-year-old male who presents to the ER with swelling of his legs. Sees Dr. Frazier as his senior physician. Creatinine is usually around 5.9. Reports that Lasix has not been working to get fluid off now was discontinued and he was started on metolazone. Just a few days ago Dr. Frazier started him on bumex but he has been unable to fill it. Denies any chest pain or chest pressure. No fevers or chills or sweats. No shortness of breath with lying down or exertion. He is not yet on dialysis. Related Data Home Medications Medication Instructions Recorded Confirmed hydralazine 50 mg tablet 50 mg PO TID 10/02/20 11/17/20 sevelamer carbonate 800 mg tablet 1,600 mg PO BID 10/02/20 11/17/20 amlodipine 10 mg tablet 10 mg PO DAILY 10/06/20 11/17/20 aspirin 81 mg chewable tablet 81 mg PO DAILY 10/06/20 11/17/20 cholecalciferol (vitamin D3) 50 50 mcg PO DAILY 10/06/20 11/17/20 mcg (2,000 unit) capsule insulin glargine 100 unit/mL (3 18 unit SUBCUT DAILY ml 10/06/20 11/17/20 mL) subcutaneous pen venlafaxine 100 mg tablet 75 mg PO BID tablet 10/06/20 11/17/20 carvedilol 25 mg PO BIDWM 10/07/20 11/17/20 atorvastatin 80 mg PO DAILY 11/03/20 11/17/20 Allergies Allergy/AdvReac Type Severity Reaction Status Date / Time No Known Allergies Allergy Verified 11/24/20 10:02 Review of Systems Review of Systems: All systems reviewed & are unremarkable except as noted in HPI and below Constitutional: Constitutional: Denies chills, Denies fatigue and Denies fever(s) Cardiovascular: Cardiovascular: Denies chest pain, Reports leg edema, Denies radiating jaw, neck or arm pain, Denies palpitations and Denies dyspnea Respiratory: Respiratory: Denies cough and Denies dyspnea Comments: no orthopnea Gastrointestinal: Gastrointestinal: Denies abdominal pain, Denies nausea and Denies vomiting [facility] Past Medical History Medical History Arthritis Bicuspid aortic valve Severe aortic stenosis status post bioprosthetic aortic valve replacement. Cerebrovascular accident (~09/21/20) Residual dysarthria. Chronic anemia Chronic kidney disease Requiring temporary dialysis in spring 2019. Baseline creatinine is around 4.50. Combined systolic and diastolic congestive heart failure Echocardiogram dated 09/22/2020 showed moderate left ventricular hypertrophy, mild aortic stenosis, and ejection fraction of 60 to 65%, improved from 35%. Diabetic foot ulcer Essential hypertension Finger fracture Former smoker 50 pack year smoking history, quit in 1987. Gastroesophageal reflux disease Hiatal hernia History of osteomyelitis Impingement syndrome of left shoulder Insulin dependent type 2 diabetes mellitus Complicated by nephropathy, neuropathy, and retinopathy. Mixed hyperlipidemia Peripheral vascular disease Pneumonia Surgical History Surgical History Amputation of left great toe (~2019) Secondary to osteomyelitis. History of aortic valve replacement (~07/24/20) 25 mm Inspiris bioprosthetic valve per Dr. Nam Daniels at [facility]. History of carpal tunnel release History of coronary artery bypass graft x 1 (~07/24/20) Saphenous vein graft to obtuse marginal per Dr. Nam Daniels at [facility]. History of tonsillectomy Family History Family History Mother Family history of diabetes mellitus in first degree relative Family history of malignant neoplasm of breast in first degree relative Hypertension Family history of coronary artery disease Family history of arthritis Alive and well Father Hypertension Malignant neoplasm of prostate Social History Social History (Reviewed 11/24/20 @ 13:17 by Patricia
--- NOTE | 2020-12-30 15:00 | PM.IMHP ---
H&P: HPI History of Present Illness Date/Time: 12/30/20 15:00 Chief Complaint: Increasing swelling. 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 The patient reportedly gained approximately 12 pounds in the last 2 days with lower extremity edema progressing upwards towards the thighs. He was instructed to come to the emergency department and be admitted for diuresis. At the time my evaluation he is sitting up comfortably in bed and has no significant complaints. He states compliance with his home medication. He has not noticed a decrease in urine output from baseline. No exertional chest pain or significant shortness of breath though he does have some mild dyspnea on exertion. No orthopnea or PND. Review of Systems Review of Systems: Narrative: Twelve systems were reviewed with pertinent positives and negatives as per HPI. He denies fever, chills, and sweats. No recent cold or flu symptoms. No known exposure to those positive for COVID-19. He had some mild muscular chest discomfort yesterday, reproducible, that has not returned. No pleuritic pain or palpitations. He admits that he does not check his glucose at home very often. No recent symptoms of hypoglycemia. He denies dysuria and hematuria. Except as documented, all other systems were reviewed and are negative. [facility] Past Medical History Medical History (Updated 12/30/20 @ 14:04 by Hiwot Santiago PA-C) Arthritis Bicuspid aortic valve Severe aortic stenosis status post bioprosthetic aortic valve replacement. Cerebrovascular accident (~09/21/20) Thought to be embolic in nature, on long-term anticoagulation. Residual dysarthria. 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 Required temporary dialysis for a few months in spring 2019. Combined systolic and diastolic congestive heart failure Echocardiogram dated 11/03/2020 showed mildly enlarged left ventricular chamber with normal left ventricular systolic function and ejection fraction of 55 to 60% (as low as 35% on previous echos), moderate increased LV wall thickness, grade 3 diastolic dysfunction, and mild mitral and tricuspid valve regurgitation. Diabetic foot ulcer Essential hypertension Finger fracture Former smoker 50 pack year smoking history, quit in 1987. Gastroesophageal reflux disease Hiatal hernia History of osteomyelitis Impingement syndrome of left shoulder Insulin dependent type 2 diabetes mellitus Complicated by nephropathy, neuropathy, and retinopathy. Mixed hyperlipidemia Peripheral vascular disease Pneumonia Surgical History Surgical History Amputation of left great toe (~2019) Secondary to osteomyelitis. History of aortic valve replacement (~07/24/20) 25 mm Inspiris bioprosthetic valve per Dr. Nam Daniels at [facility]. History of carpal tunnel release History of coronary artery bypass graft x 1 (~07/24/20) Saphenous vein graft to obtuse marginal per Dr. Nam Daniels at [facility]. History of tonsillectomy Family History Family History Mother Family history of diabetes mellitus in first degree relative Family history of malignant neoplasm of breast in first degree relative Hypertension Family history of coronary
--- NOTE | 2020-12-30 15:11 | PC.NURSE ---
1510 - Report called to JESENIA Serrato.
--- NOTE | 2020-12-30 15:22 | PC.NURSE ---
Per pt he has gotten dialysis before but no longer gets dialysis, no current dialysis access for patient.
--- NOTE | 2020-12-30 16:27 | ADMGEN ---
This patient, Pankaj Bautista, was admitted to 3 [facility] Surg Room 315-01. Patient/family oriented to hospital policies and general routines including ID bracelet, bed and alarms, visiting hours, pain management, procedures, bathroom and other care routines, personal items, smoking policy, room service/diet, and visiting hours. Information on how to activate the Rapid Response Team has been discussed. Patient/Family are encouraged to report perceived risks to care and to ask questions if they do not understand what they are told or what they should do.
--- NOTE | 2020-12-30 16:53 | PM.CNNEP ---
Assessment and Plan Assessment and plan (1) Chronic kidney disease (CKD), stage V: Code(s): N18.5 - Chronic kidney disease, stage 5 Status: Chronic Assessment and Plan: slow deterioration on kidney function over the last few months interested in pursuing peritoneal dialysis when dialysis needed follow CKD parameters (2) Volume overload: Qualifiers: Hypervolemia type: unspecified Qualified Code(s): E87.70 - Fluid overload, unspecified Code(s): E87.70 - Fluid overload, unspecified Status: Acute Assessment and Plan: high dose IV diureti therapy for now (bumex + metolazone) follow I/Os, daily weighs, and respiratory status if fails to improve, will need to consider initiating hemodialysis (3) Anemia: Code(s): D64.9 - Anemia, unspecified Status: Acute Assessment and Plan: due to CKD and possibly iron deficiency high dose Epogen while here may need IV venofer as well PRBC transfusion if Hgb < 7 (4) Hypertension: Code(s): I10 - Essential (primary) hypertension Status: Acute Assessment and Plan: follow trend with IV diuresis follow hemodynamics (5) Diabetes: Code(s): E11.9 - Type 2 diabetes mellitus without complications Status: Acute Assessment and Plan: follow accuchecks glycemic control Will continue to follow. History of Present Illness Reason for Consult Consult date: 12/30/20 Reason for consult: chronic renal failure Chief Complaint Chief complaint: acute on chronic kidney failure History of Present Illness Narrative: The patient is a 55-year-old male with an extensive past medical history as outlined below who presented to [facility] Emergency room with complaints of increased swelling/edema over the last 2-3 days. Next According to the patient, he has gained approximately 12 lb in last 40 hr with increased tightness in his lower extremities and upper thighs. He states that his pharmacy for some reason was unable get him his oral Bumex therapy and since that time is when the swelling edema has worsened. He he reports only mild shortness of breath but he does state he has noticed decreasing urine output since not having his oral Bumex therapy. Workup and evaluation in the emergency room demonstrated the patient to be hemodynamically stable but was significant for physical exam findings related to increased swelling edema particularly his lower extremities routine blood test demonstrated labs consistent with his known history of chronic kidney disease although his creatinine was a bit higher than what it was on his last hospitalization. Given his history, it was presumed this was just simple progression of disease as he has been close to the need for renal replacement therapy/dialysis for last few months. He was started on high-dose IV diuretic therapy and subsequent admitted the hospital for ongoing diuresis. Renal consultation was requested due to his advanced chronic kidney disease. The patient is well known to me as I take care of his outpatient CKD needs and as I already mentioned, he is well aware of the fact that he is likely going to require renal replacement therapy / dialysis in the near future. Efforts at this time have been trying to optimize his volume status and he has already attended education about dialysis in seems to be interested in pursuing peritoneal dialysis as a treatment option when necessary. The patient states he has been compliant with his medications except for the fact that he has not had his Bumex for the last several days which he thinks is the reason why his swelling / edema suddenly deteriorated to its current state. He does have a history of acute kidney injury on chronic kidney disease requiring temporary dialysis but his renal biopsy at that time did demonstrate fairly significant chronic kidney disease on top of the acute component related to hi
[2020-12-30 18:23] LABS: Glucose Point of Care 132 (65-105)
[2020-12-30 20:27] LABS: Glucose Point of Care 235 (65-105)
[2020-12-30] MEDS: BUMETANIDE INJ 2.5 MG/10 ML VIAL 2 MG IV PUSH (21:38)
[2020-12-30] MEDS: hydrALAZINE HCL 50 MG TABLET PO (21:38)
[2020-12-30] MEDS: SODIUM BICARBONATE TAB 650 MG TABLET PO (21:38)
[2020-12-30] MEDS: VENLAFAXINE HCL 75 MG TABLET PO (21:38)
[2020-12-30] MEDS: GABAPENTIN 300 MG CAPSULE 900 MG PO (21:38)
[2020-12-30] MEDS: metOLazone 5 MG TABLET PO (21:38)
[2020-12-30] MEDS: FAMOTIDINE 20 MG TABLET PO (21:39)
[2020-12-30] MEDS: carvediloL 25 MG TABLET PO (21:39)
[2020-12-31] VITALS (10 sets, daily range): BP systolic 112–144; BP diastolic 60–84; PULSE 68–88; RESP 16–20; TEMP 36–37.1; O2SAT 93–98
[2020-12-31] MEDS: BUMETANIDE INJ 2.5 MG/10 ML VIAL 2 MG IV PUSH ×3 (05:45→21:10)
[2020-12-31 06:17] LABS: Hematocrit 22.2 % (42.0-52.0); Mean Corpuscular HGB Conc 30.2 g/dl (32-36); Mean Corpuscular Hemoglobin 23.1 pg (26-34); Mean Corpuscular Volume 76.6 fl (80-100); Mean Platelet Volume 9.6 fl (7.4-10.4); Platelet Count Result 181 k/mm3 (150-375); Red Cell Distribution Width 16.6 % (11.5-14.5); White Blood Count 6.4 K/mm3 (4.5-10.0)
[2020-12-31 06:21] LABS: Hemoglobin 6.7 g/dL (14.0-18.0); INR 3.4; Prothrombin Time 35.1 Seconds (11.1-14.7)
[2020-12-31 06:34] LABS: Alanine Aminotransferase 14 U/L (4-50); Albumin Level 3.4 g/dL (3.5-5.1); Alkaline Phosphatase 209 U/L (38-126); Anion Gap 12 mmol/L (8-16); Aspartate Amino Transferase 16 U/L (17-59); Bilirubin,Total 0.3 mg/dL (0.2-1.3); Blood Urea Nitrogen 64 mg/dL (9-20); Calcium 7.3 mg/dL (8.4-10.2); Carbon Dioxide 23 mmol/L (22-30); Chloride 105 mmol/L (98-107); Estimated CRCL calculation 15 ml/min; Estimated Glomerular Filt Rate 9; Glucose 150 mg/dL (75-110); Magnesium 1.8 mg/dL (1.6-2.3); Phosphorus 7.3 mg/dL (2.5-4.5); Potassium 3.1 mmol/L (3.4-5.0); Sodium 140 mmol/L (137-145)
[2020-12-31 07:49] LABS: Glucose Point of Care 132 (65-105)
[2020-12-31] MEDS: carvediloL 25 MG TABLET PO ×2 (08:10→16:42)
[2020-12-31] MEDS: amLODIPine BESYLATE 5 MG TABLET 10 MG PO (08:11)
[2020-12-31] MEDS: SEVELAMER CARBONATE 800 MG TABLET 1600 MG PO ×2 (08:11→16:43)
[2020-12-31] MEDS: CHOLECALCIFEROL 1,000 UNITS TABLET 2000 UNITS PO (08:12)
[2020-12-31] MEDS: ATORVASTATIN 40 MG TABLET 80 MG PO (08:12)
[2020-12-31] MEDS: ASPIRIN 81 MG CHEWABLE TABLET PO (08:12)
[2020-12-31] MEDS: VENLAFAXINE HCL 75 MG TABLET PO ×2 (08:13→16:44)
[2020-12-31] MEDS: hydrALAZINE HCL 50 MG TABLET PO ×3 (08:13→16:43)
[2020-12-31] MEDS: FAMOTIDINE 20 MG TABLET PO ×2 (08:13→16:42)
[2020-12-31] MEDS: GABAPENTIN 300 MG CAPSULE 900 MG PO ×2 (08:13→16:43)
[2020-12-31] MEDS: SODIUM BICARBONATE TAB 650 MG TABLET PO ×3 (08:13→16:43)
[2020-12-31] MEDS: INSULIN GLARGINE (*BKC) 100 UNITS/ML 18 UNITS SUB-Q (08:14)
[2020-12-31] MEDS: SODIUM CHLORIDE 0.9% IV 250 ML 30 ML IV CONT (09:40)
[2020-12-31] MEDS: POTASSIUM CHLORIDE 20 MEQ TABLET PO (09:47)
[2020-12-31 09:48] LABS: Transferrin 206 mg/dL (206-381)
[2020-12-31 10:47] LABS: Folic Acid 14.2 ng/mL (2.76->20)
[2020-12-31 10:54] LABS: Iron 34 ug/dL (49-181)
[2020-12-31 11:18] LABS: Percent Iron Saturation 12 % (20-50)
[2020-12-31 11:53] LABS: Glucose Point of Care 204 (65-105)
--- NOTE | 2020-12-31 12:36 | PM.IMPN ---
Progress Note: A&P Assessment and Plan (1) Anemia requiring transfusions: Code(s): D64.9 - Anemia, unspecified Status: Acute Assessment and Plan: Hgb dropped today to 6.7 and he was transfused one unit -Pt asymptomatic with this; no CP, SCHUSTER, or lightheadedness -Anemia studies show anemia of chronic disease, likely due to his kidney disease -May need epo injections, await nephrologys recommendations (2) Wound of foot: Code(s): S91.309A - Unspecified open wound, unspecified foot, initial encounter Status: Acute Assessment and Plan: Plantar aspect of MTP joint of both foot with diabetic foot wound -patient states he cleans them every day but does not see anybody for this -will ask Wound Care to see the patient and he will at least need to follow-up with Dr. Burris to ensure these properly heal -Continue diabetic control (3) Chronic kidney disease: Code(s): N18.9 - Chronic kidney disease, unspecified Status: Acute Assessment and Plan: Patient has had a progressive decline in his renal function and is likely nearing dialysis. -Dr. Frazier (nephrology) has been consulted, recommends diuresis which is improving his LE edema -Kidney function a bit better today -Continue sodium bicarb and renvela (4) Anasarca: Code(s): R60.1 - Generalized edema Status: Acute Assessment and Plan: Patient reportedly has gained 12 pounds in the past 2 days. -Likely due to combination of kidneey disease and diastolic HF noted on echo 10/2020 -Dr. Frazier recommends IV Bumex 2 milligrams t.i.d., continue with that since pt is improving (5) Chronic anemia: Code(s): D64.9 - Anemia, unspecified Status: Chronic Assessment and Plan: as above (6) Insulin dependent type 2 diabetes mellitus: Code(s): E11.9 - Type 2 diabetes mellitus without complications; Z79.4 - adjunct faculty for medical terminology (current) use of insulin Status: Chronic Assessment and Plan: Last glucose today 204 -hemoglobin A1c of 9.1% in September 2020. -Continue home basal insulin of 18u -Will start SSI, not notified at lunch that pt did not have any novolog in so he did not receive any insulin with lunch. (7) Chronic anticoagulation: Code(s): Z79.01 - adjunct faculty for medical terminology (current) use of anticoagulants Status: Acute Assessment and Plan: INR is 3.4 today, with a goal between 2 to 3 (he has porcine valve) -Hold warfarin again this evening as INR is a bit elevated. -INR tomorrow, likely resume warfarin tomorrow evening. (8) Congestive heart failure: Code(s): I50.9 - Heart failure, unspecified Status: Acute Assessment and Plan: Grade 3 diastolic dysfunction noted on recent echocardiogram with improved ejection fraction up to 55 to 60%. -Continue diuresis as detailed above with close monitoring of volume status. Time Spent With Patient Time with patient: 25 - 35 minutes Subjective Date/time seen: 12/31/20 12:36 Interval history: Pt is a 55-year-old male here for leg swelling and anemia. Patient was seen today and is doing well. He thinks his leg swelling is half the size compared to when he came in. He had a recent bowel movement without blood. He is eating and drinking well without any nausea or vomiting. He states he has had both foot wounds for quite some time and has been cleaning them daily but does not see anybody for this. He denies chest pain, shortness of breath at rest, dyspnea on exertion, fevers, chills, or abdominal pain. Review of Systems Review of Systems: All systems reviewed & are unremarkable except as noted in HPI and below Exam Narrative: Exam Narrative: General: Well developed well nourished patient in NAD HEENT: normocephalic Neck: supple Neuro: Alert and oriented x4 CV:RRR with systolic murmur heard in all areas Resp: Crackles at the bases, no wheezing or rhonchi. No conversational dyspnea Abd: Sof
[2020-12-31 13:09] LABS: Hemoglobin 7.9 g/dL (14.0-18.0)
[2020-12-31] MEDS: metOLazone 5 MG TABLET PO ×2 (14:10→21:10)
--- NOTE | 2020-12-31 15:42 | PM.PNNEP ---
Progress Note: A&P Assessment and Plan (1) Chronic kidney disease (CKD), stage V: Code(s): N18.5 - Chronic kidney disease, stage 5 Status: Chronic Assessment and Plan: slow deterioration on kidney function over the last few months interested in pursuing peritoneal dialysis when dialysis needed follow CKD parameters (2) Volume overload: Qualifiers: Hypervolemia type: unspecified Qualified Code(s): E87.70 - Fluid overload, unspecified Code(s): E87.70 - Fluid overload, unspecified Status: Acute Assessment and Plan: high dose IV diuretic therapy for now (bumex + metolazone) follow I/Os, daily weighs, and respiratory status consider switching to oral diuretics tomorrow if fails to improve, will need to consider initiating hemodialysis (3) Anemia: Code(s): D64.9 - Anemia, unspecified Status: Acute Assessment and Plan: due to CKD and possibly iron deficiency high dose Epogen while here may need IV venofer as well PRBC transfusion if Hgb < 7 (4) Hypertension: Code(s): I10 - Essential (primary) hypertension Status: Acute Assessment and Plan: follow trend with IV diuresis follow hemodynamics (5) Diabetes: Code(s): E11.9 - Type 2 diabetes mellitus without complications Status: Acute Assessment and Plan: follow accuchecks glycemic control Will continue to follow. Subjective Date/time seen: 12/31/20 15:42 Says that breathing and edema are doing significantly better -- he seems to think that his edema/weight deteriorated because his pharmacy did not give him his oral bumex in a timely fashion; no other acute issues at this time; s/p PRBC transfusion due to low H/H this AM. Exam Narrative: Exam Narrative: General: WD/WN male in NAD Heart: normal S1 and S2; no rub Lungs: decreased at bases Abdomen: soft, nontender, nondistended, positive bowel sounds Extremities: no cyanosis or clubbing; 1+ edema Skin: warm and dry Objective Data Vital Signs Vital Signs: Vital Signs Temp Pulse Resp BP Pulse Ox 12/31/20 14:00 36.8 C 88 18 120/68 97 12/31/20 11:55 36.0 C L 72 16 118/71 96 12/31/20 10:55 36.1 C L 68 16 118/64 96 12/31/20 10:02 93 12/31/20 09:55 36.1 C L 71 16 114/60 98 12/31/20 09:40 36.1 C L 73 16 112/65 96 12/31/20 08:10 88 12/31/20 06:00 37.1 C 79 20 144/79 H 98 12/30/20 22:00 36.6 C 80 16 131/82 92 12/30/20 21:39 77 12/30/20 20:00 80 16 92 Intake/Output Intake/Output: Intake & Output 12/28/20 12/29/20 12/30/20 12/31/20 23:59 23:59 23:59 23:59 Intake Total 490 1200 Output Total 425 1700 Balance 65 -500 Meds/Results Medications: Active Medications Generic Name Dose Route Start Last Admin Trade Name Freq PRN Reason Stop Dose Admin Acetaminophen 650 mg 12/30/20 13:09 Acetaminophen 325 Mg Tablet PO Q4H PRN Mild Pain (1-3) or Fever Amlodipine Besylate 10 mg 12/31/20 09:00 12/31/20 08:11 Amlodipine Besylate 5 Mg Tablet PO 10 mg DAILY ALEX Administration Aspirin 81 mg 12/31/20 09:00 12/31/20 08:12 Aspirin 81 Mg Chewable Tablet PO 81 mg DAILY ALEX Administration Atorvastatin Calcium 80 mg 12/31/20 09:00 12/31/20 08:12 Atorvastatin 40 Mg Tablet PO 80 mg DAILY ALEX Administration Bumetanide 2 mg 12/30/20 22:00 12/31/20 13:43 Bumetanide Inj 2.5 Mg/10 Ml Vial IV PUSH 2 mg Q8HR ALEX Administration Carvedilol 25 mg 12/30/20 17:00 12/31/20 16:42 Carvedilol 25 Mg Tablet PO 25 mg BIDWM ALEX Administration Famotidine 20 mg 12/30/20 17:00 12/31/20 16:42 Famotidine 20 Mg Tablet PO 20 mg BID ALEX Administration Gabapentin 900 mg 12/30/20 17:00 12/31/20 16:43 Gabapentin 300 Mg Capsule PO 900 mg BID ALXE Administration Hydralazine HCl 50 mg 12/30/20 17:00 12/31/20 16:43 Hydralazine Hcl 50 Mg Tablet PO 50 mg
[2020-12-31] MEDS: SILVERGEL (ELTA) 45 ML 1 APPLIC TOPICAL (16:41)
[2020-12-31 17:12] LABS: Glucose Point of Care 210 (65-105)
[2020-12-31] MEDS: INSULIN ASPART (*BKC) 100 UNITS/ML SUB-Q (17:12)
[2020-12-31] MEDS: EPOETIN ALFA-EPBX 20,000 UNITS/ML VIAL 20000 UNITS SUB-Q (18:17)
[2020-12-31 19:53] LABS: IFOB Positive Control Positive; Immunochemical Fecal Occult Bl Negative (N)
[2020-12-31 22:27] LABS: Glucose Point of Care 240 (65-105)
[2021-01-01] MEDS: BUMETANIDE INJ 2.5 MG/10 ML VIAL 2 MG IV PUSH (05:48)
[2021-01-01 06:00] VITALS: BP 129/77; PULSE 78; RESP 20; TEMP 37.5; O2SAT 95
[2021-01-01 06:04] LABS: Hematocrit 24.4 % (42.0-52.0); Hemoglobin 7.6 g/dL (14.0-18.0)
[2021-01-01 06:38] LABS: Albumin Level 3.4 g/dL (3.5-5.1); Anion Gap 10 mmol/L (8-16); Blood Urea Nitrogen 64 mg/dL (9-20); Calcium 7.1 mg/dL (8.4-10.2); Carbon Dioxide 25 mmol/L (22-30); Chloride 104 mmol/L (98-107); Estimated CRCL calculation 15 ml/min; Estimated Glomerular Filt Rate 9; Glucose 245 mg/dL (75-110); Phosphorus 7.2 mg/dL (2.5-4.5); Potassium 3.8 mmol/L (3.4-5.0); Sodium 139 mmol/L (137-145)
[2021-01-01 07:30] LABS: Glucose Point of Care 195 (65-105)
[2021-01-01 08:45] VITALS: PULSE 80
[2021-01-01] MEDS: hydrALAZINE HCL 50 MG TABLET PO ×3 (08:45→17:29)
[2021-01-01] MEDS: FAMOTIDINE 20 MG TABLET PO ×2 (08:45→17:29)
[2021-01-01] MEDS: VENLAFAXINE HCL 75 MG TABLET PO ×2 (08:45→17:29)
[2021-01-01] MEDS: ASPIRIN 81 MG CHEWABLE TABLET PO (08:45)
[2021-01-01] MEDS: SODIUM BICARBONATE TAB 650 MG TABLET PO ×3 (08:45→17:29)
[2021-01-01] MEDS: GABAPENTIN 300 MG CAPSULE 900 MG PO ×2 (08:45→17:29)
[2021-01-01] MEDS: SILVERGEL (ELTA) 45 ML 1 APPLIC TOPICAL (08:45)
[2021-01-01] MEDS: SEVELAMER CARBONATE 800 MG TABLET 1600 MG PO ×2 (08:45→17:29)
[2021-01-01] MEDS: CHOLECALCIFEROL 1,000 UNITS TABLET 2000 UNITS PO (08:45)
[2021-01-01] MEDS: amLODIPine BESYLATE 5 MG TABLET 10 MG PO (08:45)
[2021-01-01] MEDS: carvediloL 25 MG TABLET PO ×2 (08:45→17:29)
[2021-01-01] MEDS: ATORVASTATIN 40 MG TABLET 80 MG PO (08:46)
[2021-01-01] MEDS: INSULIN GLARGINE (*BKC) 100 UNITS/ML 18 UNITS SUB-Q (08:52)
[2021-01-01] MEDS: EPOETIN ALFA-EPBX 10,000 UNITS/ML VIAL 10000 UNITS SUB-Q (10:08)
[2021-01-01 11:30] LABS: Glucose Point of Care 217 (65-105)
[2021-01-01] MEDS: INSULIN ASPART (*BKC) 100 UNITS/ML SUB-Q ×2 (11:35→17:26)
--- NOTE | 2021-01-01 13:32 | PM.PNNEP ---
Progress Note: A&P Assessment and Plan (1) Chronic kidney disease (CKD), stage V: Code(s): N18.5 - Chronic kidney disease, stage 5 Status: Chronic Assessment and Plan: slow deterioration on kidney function over the last few months interested in pursuing peritoneal dialysis when dialysis needed follow CKD parameters - creatinine stable will try to arrange for surgical consultation for PD catheter placement LUCIEN after discharge (2) Volume overload: Qualifiers: Hypervolemia type: unspecified Qualified Code(s): E87.70 - Fluid overload, unspecified Code(s): E87.70 - Fluid overload, unspecified Status: Acute Assessment and Plan: high dose IV diuretic therapy for now follow I/Os, daily weighs, and respiratory status switched to oral diuretics today (3) Anemia: Code(s): D64.9 - Anemia, unspecified Status: Acute Assessment and Plan: due to CKD and iron deficiency high dose Epogen while here on IV venofer as well PRBC transfusion if Hgb < 7 follow H/H (4) Hypertension: Code(s): I10 - Essential (primary) hypertension Status: Acute Assessment and Plan: follow trend with IV diuresis follow hemodynamics (5) Diabetes: Code(s): E11.9 - Type 2 diabetes mellitus without complications Status: Acute Assessment and Plan: follow accuchecks on Lantus and SSI Will continue to follow - would not be opposed to discharge tomorrow pending response to oral diuretic therapy; I will arrange Surgery consultation LUCIEN for PD catheter placement as an outpatient. Subjective Date/time seen: 01/01/21 13:32 Appears to be doing quite well at the time of my visit; reasonable diuresis in the last 48 hours and he feels his breathing as well as his swelling/edema have improved dramatically; no acute issues/events overnight or earlier this AM; no apparent distress noted. Exam Narrative: Exam Narrative: General: WD/WN male in NAD Heart: normal S1 and S2; no rub Lungs: decreased at bases Abdomen: soft, nontender, nondistended, positive bowel sounds Extremities: no cyanosis or clubbing; 1+ edema Skin: warm and intact Objective Data Vital Signs Vital Signs: Vital Signs Temp Pulse Resp BP Pulse Ox 01/01/21 08:45 80 01/01/21 06:00 37.5 C 78 20 129/77 95 12/31/20 22:00 36.6 C 74 20 133/84 95 12/31/20 16:42 80 12/31/20 14:00 36.8 C 88 18 120/68 97 Intake/Output Intake/Output: Intake & Output 12/29/20 12/30/20 12/31/20 01/01/21 23:59 23:59 23:59 23:59 Intake Total 490 1790 840 Output Total 425 3200 1850 Balance 65 1410 -1010 Meds/Results Medications: Active Medications Generic Name Dose Route Start Last Admin Trade Name Freq PRN Reason Stop Dose Admin Acetaminophen 650 mg 12/30/20 13:09 Acetaminophen 325 Mg Tablet PO Q4H PRN Mild Pain (1-3) or Fever Amlodipine Besylate 10 mg 12/31/20 09:00 01/01/21 08:45 Amlodipine Besylate 5 Mg Tablet PO 10 mg DAILY ALEX Administration Aspirin 81 mg 12/31/20 09:00 01/01/21 08:45 Aspirin 81 Mg Chewable Tablet PO 81 mg DAILY ALEX Administration Atorvastatin Calcium 80 mg 12/31/20 09:00 01/01/21 08:46 Atorvastatin 40 Mg Tablet PO 80 mg DAILY ALEX Administration Bumetanide 2 mg 01/01/21 17:00 Bumetanide 1 Mg Tablet PO BID ALEX Carvedilol 25 mg 12/30/20 17:00 01/01/21 08:45 Carvedilol 25 Mg Tablet PO 25 mg BIDWM ALEX Administration Epoetin Johnnie-epbx 10,000 units 01/01/21 09:00 01/01/21 10:08 Epoetin Johnnie-Epbx 10,000 Units/Ml Vial SUB-Q 10,000 units MOWEFR ALEX Administration Famotidine 20 mg 12/30/20 17:00 01/01/21 08:45 Famotidine 20 Mg Tablet PO 20 mg BID ALEX Administration Gabapentin 900 mg 12/30/20 17:00 01/01/21 08:45 Gabapentin 300 Mg Capsule PO 900 mg BID ALEX Administration Hydralazine HCl 50 mg 12/30/20 17:00
[2021-01-01 14:00] VITALS: BP 121/65; PULSE 75; RESP 16; TEMP 36.3; O2SAT 99
[2021-01-01] MEDS: IRON SUCROSE COMPLEX 200 MG in SODIUM CHLORIDE 0.9% IV 50 ML 120 MG IVPB (14:29)
--- NOTE | 2021-01-01 16:08 | PM.IMPN ---
Progress Note: A&P Assessment and Plan (1) Anemia requiring transfusions: Code(s): D64.9 - Anemia, unspecified Status: Acute Assessment and Plan: Hgb dropped today to 6.7 and he received 1 unit PRBC on 12/31/2020. H&H stabilized following. Vital signs are stable. No evidence of falls. He is asymptomatic. Iron panel consistent with anemia of chronic disease, likely secondary to chronic kidney disease. -continue Epogen -IV Venofer being considered per Nephrology -Trend H& H. Transfuse as needed with hemoglobin threshold <7.0 (2) Wound of foot: Code(s): S91.309A - Unspecified open wound, unspecified foot, initial encounter Status: Acute Assessment and Plan: Plantar aspect of MTP joint of both feet with diabetic foot wound. He has poor sensation. States he cleans wounds daily but does not see anyone for this. -evaluated by wound care. Betadine should be applied daily. Left plantar foot wound should have silver gel applied to wound bed daily. -continue local wound care. -He will need outpatient follow-up. Will refer to podiatry upon discharge -strict glycemic control is imperative (3) Chronic kidney disease: Code(s): N18.9 - Chronic kidney disease, unspecified Status: Acute Assessment and Plan: Patient has had a progressive decline in his renal function and is likely nearing dialysis. Creatinine 6.8 today. -Dr. Frazier (nephrology) has been consulted and input is appreciated -continue diuresis with Bumex and metolazone -Continue sodium bicarb and renvela -per Dr. Frazier, planning for surgical consultation for peritoneal dialysis catheter upon discharge (4) Anasarca: Code(s): R60.1 - Generalized edema Status: Acute Assessment and Plan: Patient reportedly has gained 12 pounds in the past 2 days. Likely due to combination of kidney disease and diastolic HF noted on echo 10/2020. As of today, he has a negative 2 L fluid balance. -continue Bumex and metolazone. -nephrology recommendations appreciated -weigh daily. Monitor intake and output. 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 Blood sugars have been ranging in the 200s. Fasting glucose this morning 195. -Continue home basal insulin of 18u -continue Accu-Cheks SSI, hypoglycemic -well as scheduled NovoLog 5 units with meals for improved control -monitor glucose trends and adjust regimen as needed -check updated A1c (6) Supratherapeutic INR: Code(s): R79.1 - Abnormal coagulation profile Status: Acute Assessment and Plan: INR is 3.4 today. Suspect this will be the peak as warfarin has been held since admission. -Continue holding warfarin. 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 -Plan as above (8) Congestive heart failure: Code(s): I50.9 - Heart failure, unspecified Status: Acute Assessment and Plan: Grade III diastolic dysfunction noted on recent echocardiogram with improved ejection fraction up to 55 to 60%. -Continue diuresis as detailed above with close monitoring of volume status. Subjective Date/time seen: 01/01/21 16:08 Interval history: Date of service: 01/01/2021 Pankaj Cuellar Neelvarsha is a 55-year-old male with history of CKD stage 4, chronic anemia, CVA, CHF, insulin-dependent type 2 diabetes mellitus, and several other comorbidities who is seen in follow-up for volume overload. He reports his lower extremity swelling is improving. He denies any pain in the lower extremities. H
[2021-01-01 17:19] LABS: Glucose Point of Care 185 (65-105)
[2021-01-01 17:29] VITALS: PULSE 81
[2021-01-01] MEDS: BUMETANIDE 1 MG TABLET 2 MG PO (17:29)
[2021-01-01 21:25] LABS: Glucose Point of Care 184 (65-105)
[2021-01-01 22:00] VITALS: BP 114/59; PULSE 77; RESP 20; TEMP 36.4; O2SAT 94
[2021-01-02 06:00] VITALS: BP 155/84; PULSE 90; RESP 18; TEMP 36.6; O2SAT 92
[2021-01-02 06:54] LABS: Hematocrit 26.8 % (42.0-52.0); Hemoglobin 8.2 g/dL (14.0-18.0); Mean Corpuscular HGB Conc 30.6 g/dl (32-36); Mean Corpuscular Hemoglobin 23.7 pg (26-34); Mean Corpuscular Volume 77.5 fl (80-100); Mean Platelet Volume 9.8 fl (7.4-10.4); Platelet Count Result 195 k/mm3 (150-375); Red Blood Count 3.46 M/mm3 (4.6-6.20); Red Cell Distribution Width 17.1 % (11.5-14.5); White Blood Count 9.2 K/mm3 (4.5-10.0)
[2021-01-02 07:01] LABS: INR 1.8; Prothrombin Time 21.9 Seconds (11.1-14.7)
[2021-01-02 07:03] LABS: Anion Gap 10 mmol/L (8-16); Blood Urea Nitrogen 56 mg/dL (9-20); Calcium 7.8 mg/dL (8.4-10.2); Carbon Dioxide 27 mmol/L (22-30); Chloride 104 mmol/L (98-107); Estimated CRCL calculation 14 ml/min; Estimated Glomerular Filt Rate 8; Glucose 123 mg/dL (75-110); Potassium 3.9 mmol/L (3.4-5.0); Sodium 141 mmol/L (137-145)
[2021-01-02 07:08] LABS: Hemoglobin A1C 7.3 % (<5.7)
[2021-01-02 09:45] VITALS: PULSE 96
[2021-01-02] MEDS: carvediloL 25 MG TABLET PO (09:45)
[2021-01-02] MEDS: SODIUM BICARBONATE TAB 650 MG TABLET PO ×2 (09:45→12:36)
[2021-01-02] MEDS: GABAPENTIN 300 MG CAPSULE 900 MG PO (09:46)
[2021-01-02] MEDS: CHOLECALCIFEROL 1,000 UNITS TABLET 2000 UNITS PO (09:46)
[2021-01-02] MEDS: SEVELAMER CARBONATE 800 MG TABLET 1600 MG PO (09:46)
[2021-01-02] MEDS: ATORVASTATIN 40 MG TABLET 80 MG PO (09:46)
[2021-01-02] MEDS: amLODIPine BESYLATE 5 MG TABLET 10 MG PO (09:47)
[2021-01-02] MEDS: hydrALAZINE HCL 50 MG TABLET PO ×2 (09:47→12:36)
[2021-01-02] MEDS: BUMETANIDE 1 MG TABLET 2 MG PO (09:47)
[2021-01-02] MEDS: FAMOTIDINE 20 MG TABLET PO (09:47)
[2021-01-02] MEDS: ASPIRIN 81 MG CHEWABLE TABLET PO (09:47)
[2021-01-02] MEDS: INSULIN GLARGINE (*BKC) 100 UNITS/ML 18 UNITS SUB-Q (09:55)
[2021-01-02] MEDS: INSULIN ASPART (*BKC) 100 UNITS/ML SUB-Q ×3 (09:56→12:36)
[2021-01-02] MEDS: IRON SUCROSE COMPLEX 200 MG in SODIUM CHLORIDE 0.9% IV 50 ML 120 MG IVPB (10:02)
--- NOTE | 2021-01-02 11:17 | P.PNNP_ITS ---
Progress Note: A&P Assessment and Plan (1) Chronic kidney disease (CKD), stage V: Code(s): N18.5 - Chronic kidney disease, stage 5 Status: Chronic Assessment and Plan: * slow deterioration on kidney function over the last few months * interested in pursuing peritoneal dialysis when dialysis needed * follow CKD parameters - creatinine relatively stable in spite of aggressive diuresis * will try to arrange for surgical consultation for PD catheter placement LUCIEN after discharge (2) Volume overload: Qualifiers: Hypervolemia type: unspecified Qualified Code(s): E87.70 - Fluid overload, unspecified Code(s): E87.70 - Fluid overload, unspecified Status: Acute Assessment and Plan: * s/p high dose IV diuretic therapy * follow I/Os, daily weighs, and respiratory status * switched to oral diuretics yesterday (3) Anemia: Code(s): D64.9 - Anemia, unspecified Status: Acute Assessment and Plan: * due to CKD and iron deficiency * high dose Epogen while here * on IV venofer as well while hospitalized * PRBC transfusion if Hgb < 7 * follow H/H (4) Hypertension: Code(s): I10 - Essential (primary) hypertension Status: Acute Assessment and Plan: * follow trend with diuresis * follow hemodynamics * given advanced CKD, trying to avoid overcontrol of BP (5) Diabetes: Code(s): E11.9 - Type 2 diabetes mellitus without complications Status: Acute Assessment and Plan: * follow accuchecks * on Lantus and SSI Will continue to follow - would not be opposed to discharge today; I will arrange Surgery consultation LUCIEN for PD catheter placement as an outpatient. Subjective Date/time seen: 01/02/21 11:17 Continues to do reasonably well at the time of my visit; continues to make reasonably urine output on oral diuretics; breathing ans well as edema are steadily improving as well; no apparent distress noted; no issues/events o vernight or earlier this AM. Exam Narrative: Exam Narrative: General: WD/WN male in NAD Heart: normal S1 and S2; no rub Lungs: decreased at bases Abdomen: soft, nontender, nondistended, positive bowel sounds Extremities: no cyanosis or clubbing; 1+ edema Skin: warm and intact Objective Data Vital Signs Vital Signs: Vital Signs Temp Pulse Resp BP Pulse Ox 01/02/21 09:45 96 01/02/21 06:00 36.6 C 90 18 155/84 H 92 01/01/21 22:00 36.4 C L 77 20 114/59 L 94 01/01/21 17:29 81 01/01/21 14:00 36.3 C L 75 16 121/65 99 Intake/Output Intake/Output: Intake & Output 12/30/20 12/31/20 01/01/21 01/02/21 23:59 23:59 23:59 23:59 Intake Total 490 1790 1690 400 Output Total 425 3200 3125 1850 Balance 07 -9238 -7108 -8778 Meds/Results Medications: Active Medications Generic Name Dose Route Start Last Admin Trade Name Freq PRN Reason Stop Dose Admin Acetaminophen 650 mg 12/30/20 13:09 Acetaminophen 325 Mg Tablet PO Q4H PRN Mild Pain (1-3) or Fever Amlodipine Besylate 10 mg 12/31/20 09:00 01/02/21 09:47 Amlodipine Besylate 5 Mg Tablet PO 10 mg DAILY ALEX Administration Aspirin 81 mg 12/31/20 09:00 01/02/21 09:47 Aspirin 81 Mg Chewable Tablet PO 81 m
--- NOTE | 2021-01-02 11:17 | PM.PNNEP ---
Progress Note: A&P Assessment and Plan (1) Chronic kidney disease (CKD), stage V: Code(s): N18.5 - Chronic kidney disease, stage 5 Status: Chronic Assessment and Plan: slow deterioration on kidney function over the last few months interested in pursuing peritoneal dialysis when dialysis needed follow CKD parameters - creatinine relatively stable in spite of aggressive diuresis will try to arrange for surgical consultation for PD catheter placement LUCIEN after discharge (2) Volume overload: Qualifiers: Hypervolemia type: unspecified Qualified Code(s): E87.70 - Fluid overload, unspecified Code(s): E87.70 - Fluid overload, unspecified Status: Acute Assessment and Plan: s/p high dose IV diuretic therapy follow I/Os, daily weighs, and respiratory status switched to oral diuretics yesterday (3) Anemia: Code(s): D64.9 - Anemia, unspecified Status: Acute Assessment and Plan: due to CKD and iron deficiency high dose Epogen while here on IV venofer as well while hospitalized PRBC transfusion if Hgb < 7 follow H/H (4) Hypertension: Code(s): I10 - Essential (primary) hypertension Status: Acute Assessment and Plan: follow trend with diuresis follow hemodynamics given advanced CKD, trying to avoid overcontrol of BP (5) Diabetes: Code(s): E11.9 - Type 2 diabetes mellitus without complications Status: Acute Assessment and Plan: follow accuchecks on Lantus and SSI Will continue to follow - would not be opposed to discharge today; I will arrange Surgery consultation LUCIEN for PD catheter placement as an outpatient. Subjective Date/time seen: 01/02/21 11:17 Continues to do reasonably well at the time of my visit; continues to make reasonably urine output on oral diuretics; breathing ans well as edema are steadily improving as well; no apparent distress noted; no issues/events overnight or earlier this AM. Exam Narrative: Exam Narrative: General: WD/WN male in NAD Heart: normal S1 and S2; no rub Lungs: decreased at bases Abdomen: soft, nontender, nondistended, positive bowel sounds Extremities: no cyanosis or clubbing; 1+ edema Skin: warm and intact Objective Data Vital Signs Vital Signs: Vital Signs Temp Pulse Resp BP Pulse Ox 01/02/21 09:45 96 01/02/21 06:00 36.6 C 90 18 155/84 H 92 01/01/21 22:00 36.4 C L 77 20 114/59 L 94 01/01/21 17:29 81 01/01/21 14:00 36.3 C L 75 16 121/65 99 Intake/Output Intake/Output: Intake & Output 12/30/20 12/31/20 01/01/21 01/02/21 23:59 23:59 23:59 23:59 Intake Total 490 1790 1690 400 Output Total 425 3200 3125 1850 Balance 65 1410 -7260 -1457 Meds/Results Medications: Active Medications Generic Name Dose Route Start Last Admin Trade Name Freq PRN Reason Stop Dose Admin Acetaminophen 650 mg 12/30/20 13:09 Acetaminophen 325 Mg Tablet PO Q4H PRN Mild Pain (1-3) or Fever Amlodipine Besylate 10 mg 12/31/20 09:00 01/02/21 09:47 Amlodipine Besylate 5 Mg Tablet PO 10 mg DAILY ALEX Administration Aspirin 81 mg 12/31/20 09:00 01/02/21 09:47 Aspirin 81 Mg Chewable Tablet PO 81 mg DAILY ALEX Administration Atorvastatin Calcium 80 mg 12/31/20 09:00 01/02/21 09:46 Atorvastatin 40 Mg Tablet PO 80 mg DAILY ALEX Administration Bumetanide 2 mg 01/01/21 17:00 01/02/21 09:47 Bumetanide 1 Mg Tablet PO 2 mg BID ALEX Administration Carvedilol 25 mg 12/30/20 17:00 01/02/21 09:45 Carvedilol 25 Mg Tablet PO 25 mg BIDWM ALEX Administration Dextrose 12.5 gm 01/01/21 16:24 Dextrose 50% 25 Gm/50 Ml Syringe IV PUSH PRN PRN Hypoglycemia Protocol Epoetin Johnnie-epbx 10,000 units 01/01/21 09:00 01/01/21 10:08 Epoetin Johnnie-Epbx 10,000 Units/Ml Vial SUB-Q 10,000 units MOWEFR ALEX Administration Famotidine 20 mg 12/30/20 17:00 12/21
[2021-01-02 12:25] LABS: Glucose Point of Care 243 (65-105)
[2021-01-02] MEDS: VENLAFAXINE HCL 75 MG TABLET PO (12:36)
[2021-01-02] MEDS: SILVERGEL (ELTA) 45 ML 1 APPLIC TOPICAL (12:37)
[2021-01-02 14:00] VITALS: BP 148/76; PULSE 80; RESP 16; TEMP 36.8; O2SAT 95
--- NOTE | 2021-01-02 14:24 | PM.DS ---
DS: Admitting Diagnosis Admitting Diagnosis Admitting Diagnosis: worsening swelling of legs DS: Discharge Diagnosis Discharge Diagnosis (1) Anemia requiring transfusions: Code(s): D64.9 - Anemia, unspecified Status: Acute Assessment and Plan: this is chronic. he dropped his hb down to 6.7 during the hospital stay and received one unit PRBC on 12/31/2020. h and h has been stable since then. iron panel consistent with anemia of chronic disease, liely from chronic kidney disease. he is also on epogen, which will be continued as o pbasis. (2) Wound of foot: Code(s): S91.309A - Unspecified open wound, unspecified foot, initial encounter Status: Acute Assessment and Plan: Plantar aspect of MTP joint of both feet with diabetic foot wound. He has poor sensation. States he cleans wounds daily but does not see anyone for this. -evaluated by wound care. Betadine should be applied daily. Left plantar foot wound should have silver gel applied to wound bed daily. -continue local wound care. -He will need outpatient follow-up. Will refer to podiatry upon discharge -strict glycemic control is imperative (3) Chronic kidney disease: Code(s): N18.9 - Chronic kidney disease, unspecified Status: Acute Assessment and Plan: Patient has had a progressive decline in his renal function and is nearing dialysis. -Dr. Frazier (nephrology) has been consulted and input is appreciated -continue diuresis with Bumex and metolazone -Continue sodium bicarb and renvela -per Dr. Frazier, planning for surgical consultation for peritoneal dialysis catheter upon discharge. he is okay with discharge and further his care as op basis. Discussed with the patient about further care as opb asis and he and his contact center associate agreeable with the plan. (4) Anasarca: Code(s): R60.1 - Generalized edema Status: Acute Assessment and Plan: Patient reportedly has gained 12 pounds in the past 2 days on day of admission. Likely due to combination of kidney disease and diastolic HF noted on echo 10/2020. he was also taken off diuretics priro to this likely exacerbating the fluid overalod. -continue Bumex and metolazone. -nephrology recommendations appreciated -weigh daily. Monitor intake and output. 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 Blood sugars have been ranging in the 200s. Fasting glucose this morning 195. -Continue home basal insulin of 18u -continue Accu-Cheks SSI, hypoglycemic -well as scheduled NovoLog 5 units with meals for improved control -monitor glucose trends and adjust regimen as needed -check updated A1c at 7.3 (6) Supratherapeutic INR: Code(s): R79.1 - Abnormal coagulation profile Status: Acute Assessment and Plan: on admission with inr at 3.4. held warfarin on admission .INR down to 1.8 on 01/02/2021. will conitnue warfarin at home dosage. INR monitoring as op basis. 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 (8) Congestive heart failure: Code(s): I50.9 - Heart failure, unspecified Status: Acute Assessment and Plan: Grade III diastolic dysfunction noted on recent echocardiogram with improved ejection fraction up to 55 to 60%. -Continue diuresis as detailed above with close monitoring of volume status. DS: Summary Hospital Course Reason for hospitalization: swelling of legs Hospital Course: see above Time Spent with Patient Time attestation: Total time spent providing and/or coordinating discharge services:50 mins Exam Narrative:
== END 2021-01-02 15:50 | disposition home or self-care (01) | DRG 292 ==
LOC: ANHED 13:20 → ANH3MEDSUR 14:10
PROVIDERS: Physician Assistant; Admitting Provider Internal Medicine; Emergency Provider Emergency Medicine; PCP Family Medicine; Visit Provider Internal Medicine
DX: I13.2 Hypertensive heart and chronic kidney disease with heart failure and with stage 5 chronic kidney disease, or end stage renal disease (principal); N18.5 Chronic kidney disease, stage 5; I50.30 Unspecified diastolic (congestive) heart failure; E11.22 Type 2 diabetes mellitus with diabetic chronic kidney disease; D63.1 Anemia in chronic kidney disease; I69.322 Dysarthria following cerebral infarction; E78.2 Mixed hyperlipidemia; E11.319 Type 2 diabetes mellitus with unspecified diabetic retinopathy without macular edema; E11.40 Type 2 diabetes mellitus with diabetic neuropathy, unspecified; E11.51 Type 2 diabetes mellitus with diabetic peripheral angiopathy without gangrene; E11.69 Type 2 diabetes mellitus with other specified complication; S91.302A Unspecified open wound, left foot, initial encounter; S91.301A Unspecified open wound, right foot, initial encounter; R79.1 Abnormal coagulation profile; I25.10 Atherosclerotic heart disease of native coronary artery without angina pectoris; Z79.01 Long term (current) use of anticoagulants; Z79.4 Long term (current) use of insulin; Z87.891 Personal history of nicotine dependence; Z95.1 Presence of aortocoronary bypass graft; Z95.2 Presence of prosthetic heart valve
CPT/HCPCS: 36415; 36430; 80048; 80053; 80069; 82274; 82607; 82728; 82746; 82948; 83036; 83540; 83550; 83735; 84100; 84466; 85014; 85018; 85025; 85027; 85610; 85730; 86850; 86900; 86901; 86923; 96374; 96376; 99285; A9270; G0378; J1756; J1815; J7050; P9016; Q5106

== ENCOUNTER 2021-01-08 07:24 | Outpatient (RCR) | payer OTHER, SELFPAY ==
[2020-10-14 15:45] LABS: INR 1.5; Prothrombin Time 18.9 Seconds (11.1-14.7)
[2020-10-22 09:26] LABS: INR 1.3; Prothrombin Time 17.1 Seconds (11.1-14.7)
[2020-11-17 12:27] LABS: INR 2.8; Prothrombin Time 30.1 Seconds (11.1-14.7)
[2020-12-02 09:10] LABS: INR 3.2; Prothrombin Time 33.4 Seconds (11.1-14.7)
[2020-12-21 14:16] LABS: INR 4.1; Prothrombin Time 40.3 Seconds (11.1-14.7)
[2021-01-05 15:00] LABS: INR 1.4; Prothrombin Time 17.7 Seconds (11.1-14.7)
[2021-01-08 08:07] LABS: INR 1.7
== END 2021-01-12 23:59 | disposition home or self-care (01) ==
LOC: ANHLAB 07:24
PROVIDERS: Physician Assistant; PCP Family Medicine; Visit Provider Internal Medicine Cardiovascular Disease
DX: Z51.81 Encounter for therapeutic drug level monitoring (principal); I63.9 Cerebral infarction, unspecified; R79.1 Abnormal coagulation profile; Z95.2 Presence of prosthetic heart valve; Z79.01 Long term (current) use of anticoagulants
CPT/HCPCS: 36415; 85610

== ENCOUNTER 2021-02-15 09:12 | Inpatient (IN) | payer OTHER, SELFPAY ==
[2021-02-15] VITALS (22 sets, daily range): BP systolic 136–179; BP diastolic 79–110; PULSE 73–93; RESP 12–30; TEMP 35.9–37; O2SAT 85–100; BMI 39.6
--- NOTE | ~2021-02-15 | XR_ITS ---
EXAMINATION: XR chest 2V EXAM DATE: 02/15/2021 10:18 INDICATION: Fluid overload, swelling to body. Cardiac surgery 08/11. TECHNIQUE: Frontal and lateral projections of the chest obtained and reviewed. Comparison is made to prior examination from 11/24/2020. FINDINGS: Sternotomy wires are present without findings to suggest sternal dehiscence. Cardiac valve replacement probably aortic valve. The cardiomediastinal silhouette is prominent but magnified on th is AP technique. There is indistinct reticulation with a bibasal predominance which may indicate pu lmonary edema. No confluent consolidation, pneumothorax or pleural effusion suspected. There are no o sseous abnormalities identified. IMPRESSION: Some indistinct reticulation could indicate mild pulmonary edema. Reviewed, dictated and finalized at location A.
--- NOTE | ~2021-02-15 | XR_ITS ---
EXAMINATION: XR fl guide central line place EXAM DATE: 02/16/2021 14:25 INDICATION: Insertion Tunneled Dialysis Cath . TECHNIQUE: Fluoroscopy used during XR fl guide central line place performed by Dr. Raul harrington DO. Radiologist was not present for the imaging or procedure. Total fluoroscopic time of 29 seco nds. The DAP for this procedure was 0.24 mGym2. A total of 3 images obtained for the exam. There i s no prior study for comparison. FINDINGS: There is a right-sided IJ double lumen dialysis catheter overlying expected position. Ster notomy wires. Correlate with procedure note. IMPRESSION: Fluoroscopy used during dialysis catheter placement. Reviewed, dictated and finalized at location A.
--- NOTE | ~2021-02-15 | XR_ITS ---
EXAMINATION: XR chest port-a-cath/central EXAM DATE: 02/16/2021 14:43 INDICATION: Insertion of tunneled dialysis catheter. TECHNIQUE: Portable AP frontal chest x-ray was obtained. Comparison is made to prior examination from 02/15/2021. FINDINGS: There is a right-sided IJ approach tunneled double-lumen dialysis catheter, tip projecting over cavoatrial junction region. Sternotomy wires are present without findings to suggest sternal deh iscence. Aortic valve replacement. There is cardiomegaly and pulmonary vascular congestion. No conflu ent consolidation, pneumothorax or pleural effusion suspected. Mild thoracic spondylosis. IMPRESSION: 1. Cardiomegaly, pulmonary vascular congestion. 2. No pneumothorax. Reviewed, dictated and finalized at location A.
--- NOTE | 2021-02-15 09:36 | ECG_ITS ---
Measurements Intervals [place] Rate: 75 P: 18 OK: 180 QRS: 4 QRSD: 94 T: 160 QT: 416 QTc: 465 Interpretive Statements SINUS RHYTHM NONSPECIFIC ST & T-WAVE ABNORMALITY- DIFFUSE LEADS BASELINE WANDER- I, II, AVR, AVL, AVF, V3-V6 BORDERLINE ECG Electronically Signed On 02-15-2021 10:34:39 CDT by Jairo French D.O.
--- NOTE | 2021-02-15 10:06 | ED.SOB ---
HPI - SOB/Dyspnea General Chief Complaint: Shortness of Breath/Dyspnea Stated Complaint: body swelling Time Seen by Provider: 02/15/21 09:35 Source: patient Mode of arrival: ambulatory Limitations: no limitations History of Present Illness HPI Narrative: This is a 55-year-old male that presents to the emergency department for worsening edema x1 week. Associated with shortness of breath. Reports he is due to get a peritoneal dialysis catheter in 2 days to initiate dialysis. His show card writer is Dr. Frazier. Reports he has gained about 40 pounds over the last week. He takes Bumex 2 mg twice daily, he has been taking this as prescribed. Reports a mild cough. His warfarin is currently held due to him being supratherapeutic on labs 4 days ago. Denies fever, chest pain, abdominal pain, vomiting, or dysuria. Related Data Home Medications Medication Instructions Recorded Confirmed hydralazine 50 mg tablet 50 mg PO TID 10/02/20 01/12/21 sevelamer carbonate 800 mg tablet 1,600 mg PO BID 10/02/20 01/12/21 amlodipine 10 mg tablet 10 mg PO DAILY 10/06/20 01/12/21 aspirin 81 mg chewable tablet 81 mg PO DAILY 10/06/20 01/12/21 cholecalciferol (vitamin D3) 50 50 mcg PO DAILY 10/06/20 01/12/21 mcg (2,000 unit) capsule insulin glargine 100 unit/mL (3 18 unit SUBCUT DAILY ml 10/06/20 01/12/21 mL) subcutaneous pen venlafaxine 100 mg tablet 75 mg PO BID tablet 10/06/20 01/12/21 carvedilol 25 mg PO BIDWM 10/07/20 01/12/21 atorvastatin 80 mg PO DAILY 11/03/20 01/12/21 Allergies Allergy/AdvReac Type Severity Reaction Status Date / Time No Known Allergies Allergy Verified 02/15/21 09:36 Review of Systems Review of Systems: Narrative: CONSTITUTIONAL: Denies fever CARDIOVASCULAR: Reports edema. Denies chest pain RESPIRATORY: Reports cough and dyspnea. GASTROINTESTINAL: Denies abdominal pain, nausea, vomiting GENITOURINARY: Denies dysuria All systems reviewed & are unremarkable except as noted in HPI and below PMFSH Past Medical History Medical History (Updated 02/15/21 @ 12:28 by Syl Gonzalez PA-C) Arthritis Bicuspid aortic valve Severe aortic stenosis status post bioprosthetic aortic valve replacement. Cerebrovascular accident (~09/21/20) Thought to be embolic in nature, on long-term anticoagulation. Residual dysarthria. 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 Required temporary dialysis for a few months in spring 2019. Combined systolic and diastolic congestive heart failure Echocardiogram dated 11/03/2020 showed mildly enlarged left ventricular chamber with normal left ventricular systolic function and ejection fraction of 55 to 60% (as low as 35% on previous echos), moderate increased LV wall thickness, grade 3 diastolic dysfunction, and mild mitral and tricuspid valve regurgitation. Diabetic foot ulcer Essential hypertension Finger fracture Former smoker 50 pack year smoking history, quit in 1987. Gastroesophageal reflux disease Hiatal hernia History of osteomyelitis Impingement syndrome of left shoulder Insulin dependent type 2 diabetes mellitus Complicated by nephropathy, neuropathy, and retinopathy. Mixed hyperlipidemia Peripheral vascular disease Pneumonia Surgical History Surgical History Amputation of left great toe (~2019) Secondary to osteomyelitis. History of aortic valve replacement (~07/24/20) 25 mm Inspiris bioprosthetic valve per Dr. Nam Daniels at [facility]. History of carpal tunnel release History of coronary artery bypass graft x 1 (~07/24/20) Saphenous vein graft to obtuse marginal per Dr. Nam Daniels at [facility]. History of tonsillectomy Family History Family History (Updated 12/30/20 @ 16:15 by Ama Adan RN) Mother Family history of arthritis Family history of diabetes mellitus
[2021-02-15 10:11] LABS: Basophils Percent Auto 0.6 % (0.2-1.2); Eosinophils Absolute Auto 0.1 K/mm3 (0-0.3); Eosinophils Percent Auto 1.7 % (0-4.4); Hematocrit 22.3 % (42.0-52.0); Immature Granulocyte Absolute 0.03 K/mm3 (0.00-0.031); Immature Granulocyte Percent A 0.5 % (0-0.5); Lymphocytes Percent Auto 16.8 % (18.3-44.2); Mean Corpuscular Hemoglobin 23.4 pg (26-34); Mean Platelet Volume 8.7 fl (7.4-10.4); Monocytes Absolute Auto 0.7 K/mm3 (0.1-0.6); Monocytes Percent Auto 10.2 % (2.6-8.5); Neutrophils Absolute Auto 4.6 K/mm3 (1.3-6.7); Neutrophils Percent Auto 70.2 % (45.5-73.1); Platelet Count Result 162 k/mm3 (150-375); Red Blood Count 2.86 M/mm3 (4.6-6.20); Red Cell Distribution Width 18.1 % (11.5-14.5); White Blood Count 6.6 K/mm3 (4.5-10.0)
[2021-02-15 10:13] LABS: Hemoglobin 6.7 g/dL (14.0-18.0)
[2021-02-15 10:19] LABS: INR 2.6
[2021-02-15 10:20] LABS: Partial Thromboplastin Time 52.9 SECONDS (22.3-36.8)
[2021-02-15 10:21] LABS: Alanine Aminotransferase 29 U/L (4-50); Albumin Level 3.6 g/dL (3.5-5.1); Alkaline Phosphatase 208 U/L (38-126); Anion Gap 12 mmol/L (8-16); Aspartate Amino Transferase 33 U/L (17-59); Bilirubin,Total 0.3 mg/dL (0.2-1.3); Blood Urea Nitrogen 59 mg/dL (9-20); Calcium 6.8 mg/dL (8.4-10.2); Carbon Dioxide 20 mmol/L (22-30); Chloride 108 mmol/L (98-107); Estimated CRCL calculation 15 ml/min; Estimated Glomerular Filt Rate 8; Glucose 162 mg/dL (75-110); Potassium 3.5 mmol/L (3.4-5.0); Sodium 140 mmol/L (137-145)
[2021-02-15 10:30] LABS: NT Pro B Type Natriuretic Pept 27400 pg/mL (5-100)
[2021-02-15 10:34] LABS: Add Urine Microscopic? YES; Appearance Urine Cloudy (Clear); Bacteria Urine Trace /hpf; Bilirubin Urine Negative (Negative); Blood Urine Negative (Negative); Color Urine Yellow (Yellow); Glucose Urine UA 1+ mg/dL (Negative); Ketones Urine Negative (Negative); Leukocyte Esterase Ur Negative LEU/UL (Negative); Mucus Urine Rare /lpf; Nitrate Urine Negative (Negative); Protein Urine 3+ mg/dL (Negative); Specific Grav Ur 1.013 (1.001-1.035); Squamous Epithelial Cell Urine Rare /hpf (Few); Urobilinogen Urine Negative mg/dL (<2.0)
[2021-02-15] MEDS: BUMETANIDE INJ 1 MG/4 ML VIAL 2 MG IV PUSH ×2 (10:40→18:26)
--- NOTE | 2021-02-15 12:54 | PC.NURSE ---
Floor nurse asked about medication for blood pressure. This RN asked PA and she states she isn't going to put any orders in at this point because it a recent sap gatherer note he states that he was allowing for pt BP to be slightly higher
--- NOTE | 2021-02-15 13:01 | ADMGEN ---
This patient, Pankaj Bautista, was admitted to 3 [facility] Surg Room 330-01 @ 1301. Patient/family oriented to hospital policies and general routines including ID bracelet, bed and alarms, visiting hours, pain management, procedures, bathroom and other care routines, personal items, smoking policy, room service/diet, and visiting hours. Information on how to activate the Rapid Response Team has been discussed. Patient/Family are encouraged to report perceived risks to care and to ask questions if they do not understand what they are told or what they should do.
--- NOTE | 2021-02-15 13:33 | PM.IMHP ---
H&P: HPI History of Present Illness Date/Time: 02/15/21 13:33 Chief Complaint: Shortness of breath Narrative: This is a 55-year-old male with past medical history significant for coronary artery disease status post coronary artery bypass graft, hypertension, type 2 diabetes mellitus, left diabetic foot, chronic kidney disease. Have patient is in preparation for peritoneal dialysis however he presented to the emergency room today due to worsening shortness of breath and generalized swelling, patient has been sleeping in his recliner. He was supposed to see the doctor this Monday for peritoneal dialysis catheter placed. Today he came to the emergency room and plan is to have hemodialysis. He denies any fevers rigors or chills, no chest pain, no cough no sputum production, states that his swelling is everywhere signaling to his abdomen his thighs and legs. Preliminary workup was significant for low hemoglobin patient has obtained transfusions in the past he also have a very elevated BNP. Review of Systems Review of Systems: Narrative: PATIENT PRESENTED TO THE EMERGENCY ROOM DUE TO WORSENING SHORTNESS OF BREATH AND GENERALIZED EDEMA FOR THE LAST 3 DAYS OR SO HAS NOT BEEN ABLE TO SLEEP IN HIS BED HAS BEEN SLEEPING IN HIS RECLINER Constitutional: Comments: NO FEVERS NO RIGORS NO CHILLS, STATES THAT HIS WEIGHT DRY WEIGHT IS 225 HIS AT 270 Eyes: Comments: NO VISION CHANGE ENT: Comments: NO EARACHE NO NOSE CONGESTION NO SORE THROAT Cardiovascular: Comments: PND Respiratory: Comments: SHORTNESS OF BREATH Gastrointestinal: Comments: ABDOMINAL DISTENSION Genitourinary: Comments: NO PAIN OR BURNING WITH URINATION Musculoskeletal: Comments: LEFT DIABETIC FOOT, BILATERAL LOWER EXTREMITY SWELLING Integumentary/Breasts: Comments: NO RASHES Neurologic: Comments: NO SENSORIMOTOR DEFICIT Endocrine: Comments: NO POLYDIPSIA POLYPHASIA POLYURIA NO HEAT OR COLD INTOLERANCE Hematologic/Lymphatic: Comments: NO LYMPHADENOPATHIES [facility] Past Medical History Medical History (Updated 02/15/21 @ 12:28 by Syl Gonzalez PA-C) Arthritis Bicuspid aortic valve Severe aortic stenosis status post bioprosthetic aortic valve replacement. Cerebrovascular accident (~09/21/20) Thought to be embolic in nature, on long-term anticoagulation. Residual dysarthria. 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 Required temporary dialysis for a few months in spring 2019. Combined systolic and diastolic congestive heart failure Echocardiogram dated 11/03/2020 showed mildly enlarged left ventricular chamber with normal left ventricular systolic function and ejection fraction of 55 to 60% (as low as 35% on previous echos), moderate increased LV wall thickness, grade 3 diastolic dysfunction, and mild mitral and tricuspid valve regurgitation. Diabetic foot ulcer Essential hypertension Finger fracture Former smoker 50 pack year smoking history, quit in 1987. Gastroesophageal reflux disease Hiatal hernia History of osteomyelitis Impingement syndrome of left shoulder Insulin dependent type 2 diabetes mellitus Complicated by nephropathy, neuropathy, and retinopathy. Mixed hyperlipidemia Peripheral vascular disease Pneumonia Surgical History Surgical History Amputation of left great toe (~2019) Secondary to osteomyelitis. History of aortic valve replacement (~07/24/20) 25 mm Inspiris bioprosthetic valve per Dr. Nam Daniels at [facility]. History of carpal tunnel release History of coronary artery bypass graft x 1 (~07/24/20) Saphenous vein graft to obtuse marginal per Dr. Nam Daniels at [facility]. History of tonsillectomy Family History Family History (Updated 02/15/21 @ 13:17 by Xuan Booker RN) Mother Family history of arthritis Family history of diabetes halle
[2021-02-15] MEDS: PHYTONADIONE 5 MG TABLET 10 MG PO (14:40)
--- NOTE | 2021-02-15 14:52 | PM.CNGS ---
Assessment and Plan Assessment and plan (1) Acute on chronic kidney failure: Code(s): N17.9 - Acute kidney failure, unspecified; N18.9 - Chronic kidney disease, unspecified Status: Acute Assessment and Plan: Patient with worsening chronic kidney disease and in need of renal replacement therapy. He was scheduled as an outpatient to have a peritoneal dialysis catheter placed in 2 days. Nephrology is now requesting a tunneled dialysis catheter for the patient to instead start hemodialysis. I have spoke with the patient regarding proceeding with placement of a tunneled dialysis catheter by Dr. Arellano. Description of the procedure, risks, benefits, expected outcomes, and expected recovery were discussed with the patient in detail. All questions were answered. Discussed the case with Dr. Arellano. Will give one dose of vitamin K today since his INR is 2.6, and we will plan to schedule the patient for surgery tomorrow. (2) Chronic anticoagulation: Code(s): Z79.01 - [facility] (current) use of anticoagulants Status: Acute Assessment and Plan: Warfarin has been on hold for upcoming surgery on Monday. Patient has not taken his warfarin since last . Regardless, his INR was 2.6 today. See plan above. Continue to hold warfarin. (3) Anemia: Qualifiers: Anemia type: due to chronic kidney disease Chronic kidney disease stage: stage 5, not on chronic dialysis Qualified Code(s): N18.5 - Chronic kidney disease, stage 5; D63.1 - Anemia in chronic kidney disease Code(s): D64.9 - Anemia, unspecified Status: Acute Assessment and Plan: Hemoglobin 6.7 on admission and receiving a unit of PRBCs currently. (4) Congestive heart failure: Code(s): I50.9 - Heart failure, unspecified Status: Acute (5) Insulin dependent type 2 diabetes mellitus: Code(s): E11.9 - Type 2 diabetes mellitus without complications; Z79.4 - [facility] (current) use of insulin Status: Chronic Additional Plan I have discussed the patient's case and plan of care with Dr. Arellano. Thank you for allowing us to see the patient in consultation. History of Present Illness Consult details Consult date: 02/15/21 Reason for consult: other (Tunneled dialysis catheter placement) Requesting physician: Syl Gonzalez PA-C Narrative: This is a 55-year-old male with chronic kidney disease, along with multiple other comorbidities, who presented to the emergency department today for worsening shortness of breath and swelling. He does have a history of acute kidney injury on chronic kidney disease, requiring hemodialysis in the past. In January of 2020, he had a temporary dialysis catheter placed, which was followed by placement of a tunneled dialysis catheter. Eventually, his kidney function improved and the tunneled dialysis catheter was removed in May of 2020. He is followed by nephrology and had recently been referred to a surgeon for peritoneal dialysis catheter placement. This was scheduled for Monday, 2 days from now. He has been off of his warfarin since last in preparation for surgery. He reports gaining about 40 lb in the past 2 weeks and noticing worsening shortness of breath. He was evaluated in the ER and found to have worsening chronic kidney disease and anemia. The patient is being admitted and Nephrology was consulted. Nephrology is requesting placement a tunneled dialysis catheter, which is the reason for our consultation today. The patient is now seen on the medical floor. Review of Systems Review of Systems: All systems reviewed & are unremarkable except as noted in HPI and below Constitutional: Constitutional: Reports chills and Reports fever(s) Cardiovascular: Cardiovascular: Reports leg edema and Reports dyspnea Respiratory: Respiratory: Reports dyspnea and Reports dyspnea on exertion Neurologic: Reports Abnormal speech present (expressive aphasia s/p CVA) PMFS
[2021-02-15 16:40] LABS: Glucose Point of Care 111 (65-105)
--- NOTE | 2021-02-15 16:54 | PM.CNNEP ---
Assessment and Plan Assessment and plan (1) End stage renal disease: Code(s): N18.6 - End stage renal disease Status: Chronic Assessment and Plan: plan initiation of hemodialysis Surgery consulted for placement of tunneled HD catheter will eventually transition to PD as an outpatient continue high dose diuretics for now (2) Anemia: Code(s): D64.9 - Anemia, unspecified Status: Acute Assessment and Plan: related to CKD/ESRD PRBC transfusion today check iron studies follow H/H Epogen with HD (3) Anasarca: Code(s): R60.1 - Generalized edema Status: Acute Assessment and Plan: due to progression to ESRD high dose diuretics fluid with HD once initiated (4) Essential hypertension: Code(s): I10 - Essential (primary) hypertension Status: Acute Assessment and Plan: elevated at this time diuresis and fluid removal should help will adjust medications once dialysis started follow trend of hemodynamics (5) Diabetes: Code(s): E11.9 - Type 2 diabetes mellitus without complications Status: Acute Assessment and Plan: follow accuhecks glycemic control Will continue to follow. History of Present Illness Reason for Consult Consult date: 02/15/21 Reason for consult: end stage renal disease Chief Complaint Chief complaint: Anasarca/anemia History of Present Illness Narrative: The patient is a 55-year-old male with past medical history as outlined below who presented to [facility] emergency room earlier today due to worsening shortness of breath and generalized swelling. According to the patient's and the patient, his been having increasing shortness of breath for the last several days associated with apparently a 40 lb weight gain in the last two weeks. Because the swelling and shortness of breath he has pretty much been staying his recliner and not doing much activity. Given his advanced kidney disease, the tentative plan was for outpatient placement of a peritoneal dialysis catheter for institution of renal replacement therapy. However, given the patient's current status there is great concern that he may not even tolerate the procedure without some type of optimization. Given these concerns, it was thought the patient may need temporary hemodialysis to bridge him until his peritoneal dialysis catheter can be placed and hence he came to emergency room for further evaluation. patient has been sleeping in his recliner. He was supposed to see the doctor this Monday for peritoneal dialysis catheter placed. He denies any fevers, rigors or chills, no chest pain, no cough or sputum production. Workup and evaluation emergency room demonstrated the patient be hemodynamically stable (if not hypertensive) associated with significant swelling /edema / anasarca his abdomen, thighs and lower extremities. His respiratory status was somewhat tenuous but he was able to converse although he did appear to have some mild respiratory distress. He was placed on supplemental oxygen and routine blood test demonstrated labs consistent with his advanced chronic kidney disease but no critical electrolyte abnormalities to speak of. His chest x-ray was also somewhat consistent with volume overload. His hemoglobin hematocrit was also somewhat low which may be contributing to his respiratory status. He was typed and crossed for a packed red blood cell transfusion given IV diuretics and subsequently admitted the hospital for further evaluation therapy. Renal consultation was requested due to his advanced chronic kidney disease. The patient is well known to me as I take care of his outpatient CKD needs and as I already mentioned, he is well aware of the fact that he is likely going to require renal replacement therapy / dialysis in the near future. Efforts at this time have been trying to optimize his volume status and he has already attended
[2021-02-15] MEDS: FUROSEMIDE INJ 40 MG/4 ML VIAL 10 MG IV PUSH (17:44)
[2021-02-15] MEDS: FUROSEMIDE INJ 40 MG/4 ML VIAL 20 MG IV PUSH (17:58)
[2021-02-15] MEDS: ALBUTEROL SULFATE NEB 2.5 MG/0.5 ML INH (18:01)
[2021-02-15] MEDS: IPRATROPIUM BR 0.02% INH SOLN 0.5 MG/2.5 ML VIAL (18:01)
--- NOTE | 2021-02-15 18:07 | PM.IMPN ---
Subjective Date/time seen: 02/15/21 18:07 Called by nurses pt is suddenly SOB and wheezy CXR shows pulmonary edema Pt to have 20 mg iv lasix stat and Duoneb treatments Watch for respiratory improvement Pt is on a Non rebreather mask at 6 liters Objective Data Vital Signs Vital Signs: Vital Signs - 24 hr 02/15/21 09:33 02/15/21 09:49 02/15/21 10:01 Temperature 36.6 C Pulse Rate 73 76 73 Respiratory Rate 15 17 Blood Pressure 145/80 H 160/98 H Pulse Oximetry 98 97 94 02/15/21 10:40 02/15/21 11:31 02/15/21 12:01 Temperature Pulse Rate 73 79 80 Respiratory Rate 18 15 12 Blood Pressure 136/87 163/92 H 173/93 H Pulse Oximetry 94 100 96 02/15/21 12:50 02/15/21 14:00 02/15/21 14:16 Temperature 36.5 C 36.2 C L Pulse Rate 87 80 82 Respiratory Rate 18 20 16 Blood Pressure 160/95 H 165/93 H 161/79 H Pulse Oximetry 97 98 92 02/15/21 15:16 02/15/21 16:00 02/15/21 16:16 Temperature 36.4 C 36.6 C Pulse Rate 84 91 91 Respiratory Rate 16 16 Blood Pressure 162/86 H 160/99 H Pulse Oximetry 100 91 02/15/21 16:45 02/15/21 16:46 02/15/21 17:47 Temperature Pulse Rate Respiratory Rate Blood Pressure Pulse Oximetry 85 L 91 85 L 02/15/21 17:48 02/15/21 18:02 Temperature Pulse Rate 87 Respiratory Rate 30 H Blood Pressure Pulse Oximetry 90 Intake/Output Intake/Output: Intake & Output 02/12/21 02/13/21 02/14/21 02/15/21 23:59 23:59 23:59 23:59 Intake Total 0 Balance 0 Meds/Results Medications: Active Medications Generic Name Dose Route Start Last Admin Trade Name Freq PRN Reason Stop Dose Admin Albuterol 2.5 mg 02/15/21 17:55 Albuterol Sulfate Neb 2.5 Mg/0.5 Ml Inh INHALATION Q4HRT PRN Shortness Of Breath Furosemide 20 mg 02/16/21 09:00 Furosemide Inj 40 Mg/4 Ml Vial IV PUSH BID ALEX Sodium Chloride 250 mls @ 30 mls/hr 02/15/21 10:40 02/15/21 15:35 Normal Saline Iv IV CONT 02/15/21 18:59 Not Given .Q8H20M STA Ipratropium [place] 0.5 mg 02/15/21 17:54 Ipratropium Br 0.02% Inh Soln 0.5 Mg/2.5 Ml Vial INHALATION Q4HRT PRN Shortness Of Breath Silver 1 each 02/15/21 09:00 02/15/21 16:31 Silver Foam Band (Mepilex Ag 4x4) Bandage TOPICAL 1 each DAILY ALEX Administration Radiology Results: ITS Impressions Chest X-Ray 02/15/21 10:20 IMPRESSION: Some indistinct reticulation could indicate mild pulmonary edema. Labs Labs: Laboratory Results - last 24 hr 02/15/21 02/15/21 02/15/21 10:05 10:05 10:05 WBC 6.6 RBC 2.86 L Hgb 6.7 L* Hct 22.3 L MCV 78.0 L MCH 23.4 L MCHC 30.0 L RDW 18.1 H Plt Count 162 MPV 8.7 Immature Gran % (Auto) 0.5 Neut % (Auto) 70.2 Lymph % (Auto) 16.8 L [place] % (Auto) 10.2 H Eos % (Auto) 1.7 Baso % (Auto) 0.6 Lymph # (Auto) 1.10 [place] # (Auto) 0.7 H Eos # (Auto) 0.1 Baso # (Auto) 0.0 Abs Immat Gran (auto) 0.03 Absolute Neuts (auto) 4.6 Absolute Nucleated RBC 0.0 Nucleated RBC % 0.0 PT 28.0 H INR 2.6 APTT 52.9 H Sodium 140 Potassium 3.5 Chloride 108 H Carbon Dioxide 20 L Anion Gap 12 BUN 59 H Creatinine 7.00 H Estim Creat Clear Calc 15 Estimated GFR 8 L Glucose 162 H POC Capillary Glucose Calcium 6.8 L Total Bilirubin 0.3 AST 33 ALT 29 Alkaline Phosphatase 208 H NT-Pro-B Natriuret Pep 23220 H Total Protein 7.0 Albumin 3.6 Urine Color Urine Appearance Urine pH Ur Specific [place] Urine Protein Urine Glucose (UA) Urine Ketones Ur Blood (Man) Urine Nitrate Urine Bilirubin Urine Urobilinogen Leukocyte Esterase Rfl Urine RBC Urine WBC Ur Squamous Epith Cells Urine Bacteria Urine Mucus Blood Type Antibody Screen Crossmatch 02/15/21 02/15/21 02/15/21 10:21 10:47 16:33 WBC RBC Hgb Hct MCV MCH MCHC
[2021-02-15 18:13] LABS: Alveolar/Arterial O2 Gradient 603.8 mmHg; Base Excess ABG -6.2 mEq/l (+/-2.0); Fractional Inspired Oxygen 100 %; HCO3 ABG 19.8 mEq/l (22.0-26.0); PCO2 ABG 40.8 mmHg (35.0-45.0); PO2 ABG 68.4 mmHg (80.0-100.0); PO2 FiO2 Ratio Arterial Blood 0.68 %; pH ABG 7.304 (7.350-7.450)
[2021-02-15 18:14] LABS: Device NON-REBREATHER MASK; Modified Allen's Test Pass; Site Drawn RIGHT RADIAL
[2021-02-15 19:00] LABS: Hematocrit 27.2 % (42.0-52.0); Hemoglobin 8.2 g/dL (14.0-18.0)
[2021-02-15 23:29] LABS: Glucose Point of Care 111 (65-105)
[2021-02-16] VITALS (32 sets, daily range): BP systolic 156–187; BP diastolic 83–109; PULSE 80–99; RESP 12–22; TEMP 36.6–37.1; O2SAT 87–100
[2021-02-16 06:17] LABS: INR 1.8; Prothrombin Time 21.6 Seconds (11.1-14.7)
[2021-02-16 07:15] LABS: Hepatitis B Surface Antigen Negative (Negative)
[2021-02-16 07:21] LABS: HAV RESULT Negative (Negative); Hepatitis B Core IgM Result Negative (Negative)
[2021-02-16 07:32] LABS: Hepatitis B Surface Anti Res Negative; Hepatitis C Virus Antibody Negative (Negative)
[2021-02-16 07:45] LABS: Glucose Point of Care 99 (65-105)
[2021-02-16] MEDS: BUMETANIDE INJ 1 MG/4 ML VIAL 2 MG IV PUSH ×2 (08:39→19:24)
[2021-02-16] MEDS: PHYTONADIONE 5 MG TABLET PO (08:39)
[2021-02-16] MEDS: metOLazone 5 MG TABLET PO (08:39)
--- NOTE | 2021-02-16 11:11 | P.PNNP_ITS ---
Progress Note: A&P Assessment and Plan (1) End stage renal disease: Code(s): N18.6 - End stage renal disease Status: Chronic Assessment and Plan: * plan initiation of hemodialysis * Surgery consulted for placement of tunneled HD catheter * will eventually transition to peritoneal dialysis as an outpatient * continue high dose diuretics for now (2) Anemia: Code(s): D64.9 - Anemia, unspecified Status: Acute Assessment and Plan: * related to CKD/ESRD * PRBC transfusion yesterday * follow-up on iron studies * follow H/H * Epogen with HD (3) Anasarca: Code(s): R60.1 - Generalized edema Status: Acute Assessment and Plan: * due to progression to ESRD * high dose diuretics * fluid removal with HD once initiated (4) Essential hypertension: Code(s): I10 - Essential (primary) hypertension Status: Acute Assessment and Plan: * elevated at this time * diuresis and fluid removal should help * will adjust medications once dialysis started -- likely to add KIRK-I * follow trend of hemodynamics (5) Diabetes: Code(s): E11.9 - Type 2 diabetes mellitus without complications Status: Acute Assessment and Plan: * follow accuhecks * glycemic control Will continue to follow. Subjective Date/time seen: 02/16/21 11:11 Reasonable UOP output with high dose diuretics; breathing appears somewhat better; tunneled HD catheter placement scheduled for this afternoon followed by dialysis; tolerated PRBC transfusion yesterday as well; no issue/events o vernight or earlier this AM. Exam Narrative: Exam Narrative: General: WD/WN male in NAD Heart: normal S1 and S2; no rub Lungs: decreased at bases with few scattered crackles Abdomen: soft, nontender, nondistended, positive bowel sounds Extremities: no cyanosis or clubbing; 2+ edema Skin: warm and dry Objective Data Vital Signs Vital Signs: Vital Signs Temp Pulse Resp BP Pulse Ox 02/16/21 10:13 94 02/16/21 08:54 90 02/16/21 08:00 96 94 02/16/21 05:58 37.1 C 92 20 184/95 H 98 02/16/21 04:00 94 02/16/21 00:00 91 02/15/21 21:33 37.0 C 93 20 179/110 H 99 02/15/21 20:00 93 02/15/21 18:15 87 30 H 02/15/21 18:11 98 02/15/21 18:02 87 30 H 02/15/21 17:48 90 02/15/21 17:47 85 L 02/15/21 17:16 36.6 C 88 17 157/88 H 91 02/15/21 16:46 91 02/15/21 16:45 85 L 02/15/21 16:16 36.6 C 91 16 160/99 H 91 02/15/21 16:00 91 02/15/21 15:16 36.4 C 84 16 162/86 H 100 02/15/21 14:16 36.2 C L 82 16 161/79 H 92 02/15/21 14:00 36.5 C 80 20 165/93 H 98 02/15/21 12:50 87 18 160/95 H 97 02/15/21 12:01 80 12 173/93 H 96 02/15/21 11:31 79 15 163/92 H 100 Intake/Output Intake/Output: Intake & Output 02/13/21 02/14/21 02/15/21 02/16/21 23:59 23:59 23:59 23:59 Intake Total 1110 750 Output Total 600 1375 Balance 510 -625 Meds/Results Medications: Active Medications Generic Name Dose Route Start Last Admin Trade Name Freq PRN Reason Stop Dose Admin
--- NOTE | 2021-02-16 11:11 | PM.PNNEP ---
Progress Note: A&P Assessment and Plan (1) End stage renal disease: Code(s): N18.6 - End stage renal disease Status: Chronic Assessment and Plan: plan initiation of hemodialysis Surgery consulted for placement of tunneled HD catheter will eventually transition to peritoneal dialysis as an outpatient continue high dose diuretics for now (2) Anemia: Code(s): D64.9 - Anemia, unspecified Status: Acute Assessment and Plan: related to CKD/ESRD PRBC transfusion yesterday follow-up on iron studies follow H/H Epogen with HD (3) Anasarca: Code(s): R60.1 - Generalized edema Status: Acute Assessment and Plan: due to progression to ESRD high dose diuretics fluid removal with HD once initiated (4) Essential hypertension: Code(s): I10 - Essential (primary) hypertension Status: Acute Assessment and Plan: elevated at this time diuresis and fluid removal should help will adjust medications once dialysis started -- likely to add KIRK-I follow trend of hemodynamics (5) Diabetes: Code(s): E11.9 - Type 2 diabetes mellitus without complications Status: Acute Assessment and Plan: follow accuhecks glycemic control Will continue to follow. Subjective Date/time seen: 02/16/21 11:11 Reasonable UOP output with high dose diuretics; breathing appears somewhat better; tunneled HD catheter placement scheduled for this afternoon followed by dialysis; tolerated PRBC transfusion yesterday as well; no issue/events overnight or earlier this AM. Exam Narrative: Exam Narrative: General: WD/WN male in NAD Heart: normal S1 and S2; no rub Lungs: decreased at bases with few scattered crackles Abdomen: soft, nontender, nondistended, positive bowel sounds Extremities: no cyanosis or clubbing; 2+ edema Skin: warm and dry Objective Data Vital Signs Vital Signs: Vital Signs Temp Pulse Resp BP Pulse Ox 02/16/21 10:13 94 02/16/21 08:54 90 02/16/21 08:00 96 94 02/16/21 05:58 37.1 C 92 20 184/95 H 98 02/16/21 04:00 94 02/16/21 00:00 91 02/15/21 21:33 37.0 C 93 20 179/110 H 99 02/15/21 20:00 93 02/15/21 18:15 87 30 H 02/15/21 18:11 98 02/15/21 18:02 87 30 H 02/15/21 17:48 90 02/15/21 17:47 85 L 02/15/21 17:16 36.6 C 88 17 157/88 H 91 02/15/21 16:46 91 02/15/21 16:45 85 L 02/15/21 16:16 36.6 C 91 16 160/99 H 91 02/15/21 16:00 91 02/15/21 15:16 36.4 C 84 16 162/86 H 100 02/15/21 14:16 36.2 C L 82 16 161/79 H 92 02/15/21 14:00 36.5 C 80 20 165/93 H 98 02/15/21 12:50 87 18 160/95 H 97 02/15/21 12:01 80 12 173/93 H 96 02/15/21 11:31 79 15 163/92 H 100 Intake/Output Intake/Output: Intake & Output 02/13/21 02/14/21 02/15/21 02/16/21 23:59 23:59 23:59 23:59 Intake Total 1110 750 Output Total 600 1375 Balance 510 -625 Meds/Results Medications: Active Medications Generic Name Dose Route Start Last Admin Trade Name Freq PRN Reason Stop Dose Admin Albuterol 2.5 mg 02/15/21 17:55 Albuterol Sulfate Neb 2.5 Mg/0.5 Ml Inh INHALATION Q4HRT PRN Shortness Of Breath Bumetanide 2 mg 02/15/21 18:15 02/16/21 08:39 Bumetanide Inj 1 Mg/4 Ml Vial IV PUSH 2 mg BID ALEX Administration Epoetin Johnnie-epbx 10,000 units 02/16/21 22:10 Epoetin Johnnie-Epbx 10,000 Units/Ml Vial IV PUSH 02/16/21 22:11 ONCE ONE Albumin Human 50 mls @ 999 mls/hr 02/16/21 10:10 Albutein IVPB 03/18/21 10:11 Q10M PRN HYPOTENSION Sodium Chloride 1,000 mls @ 999 mls/hr 02/16/21 10:10 Normal Saline Iv IV CONT 02/16/21 11:10 .Q1H1M ONE Sodium Chloride 1,000 mls @ 0 mls/hr 02/16/21 10:10 Normal Saline Iv IV CONT 02/16/21 10:11 .Q0M ONE Per Protocol Ipratropium [place] 0.5 mg 02/15/21 17:54 Ipratropium Br 0.02% Inh Soln 0.5 M
[2021-02-16 12:24] LABS: Glucose Point of Care 108 (65-105)
--- NOTE | 2021-02-16 13:11 | WPDHPUPDATE1 ---
History and Physical Update Update Date/Time: 02/16/21 13:11 History and Physical has been reviewed, including an updated exam of the patient. There are NO changes in the patient's condition. Risks, benefits, and alternatives have been discussed and questions answered. Patient agrees to proceed with procedure.
--- NOTE | 2021-02-16 13:12 | PC.NURSE ---
Patient to Pre-op.
[2021-02-16] MEDS: SODIUM CHLORIDE 0.9% IV 500 ML 30 ML IV CONT (13:29)
--- NOTE | 2021-02-16 13:29 | SUR.PREOP ---
1310; PT INTO PREOP WITH O2 6L NC. SPOUSE WITH PT. DR PETERSON IN TO SEE PT. PT DROWSY, AWAKENS EASILY, OTHERWISE SLEEPY. PT BILAT ARMS AND LEGS, ABDOMEN ALL EDEMATOUS. HOB ELEVATED 40 DEGREES.
--- NOTE | 2021-02-16 13:30 | PM.IMPN ---
Progress Note: A&P Assessment and Plan (1) End stage renal disease: Code(s): N18.6 - End stage renal disease Status: Chronic Assessment and Plan: Patient is status post tunneled catheter placement for hemodialysis emergent treatment due to fluid overload Follow Nephrology recs (2) Anasarca associated with disorder of kidney: Code(s): N04.9 - Nephrotic syndrome with unspecified morphologic changes Status: Acute Assessment and Plan: Will undergo hemodialysis for fluid removal (3) Anemia: Qualifiers: Anemia type: due to chronic kidney disease Chronic kidney disease stage: stage 5, not on chronic dialysis Qualified Code(s): N18.5 - Chronic kidney disease, stage 5; D63.1 - Anemia in chronic kidney disease Code(s): D64.9 - Anemia, unspecified Status: Acute Assessment and Plan: Likely secondary to chronic kidney disease (4) Anemia requiring transfusions: Code(s): D64.9 - Anemia, unspecified Status: Acute Assessment and Plan: Patient is status post transfusion of 1 unit of packed red blood cells (5) Insulin dependent type 2 diabetes mellitus: Code(s): E11.9 - Type 2 diabetes mellitus without complications; Z79.4 - manager intermediate (current) use of insulin Status: Chronic Assessment and Plan: Continue to monitor Continue insulin Accu-Cheks AC and HS Insulin sliding scale as needed (6) Essential hypertension: Code(s): I10 - Essential (primary) hypertension Status: Acute Assessment and Plan: Continue medications Continue to monitor (7) CAD (coronary artery disease), autologous vein bypass graft: Code(s): I25.810 - Atherosclerosis of coronary artery bypass graft(s) without angina pectoris Status: Acute Assessment and Plan: Stable Continue aspirin Continue atorvastatin Continue carvedilol Continue hydralazine (8) S/P CABG x 1: Onset Date: ~07/24/20 Code(s): Z95.1 - Presence of aortocoronary bypass graft Status: Acute Assessment and Plan: Stable Continue to monitor (9) Acute on chronic combined systolic and diastolic CHF (congestive heart failure): Code(s): I50.43 - Acute on chronic combined systolic (congestive) and diastolic (congestive) heart failure Status: Acute Assessment and Plan: Secondary to fluid overload secondary to kidney failure Will undergo hemodialysis for fluid removal Subjective Date/time seen: 02/16/21 13:30 I feel okay Review of Systems Review of Systems: Narrative: States that his feels very tired Exam Narrative: Exam Narrative: Patient is laying in bed Const: General: comfortable, no acute distress, well developed and ill appearing chronically Nutritional Appearance: overweight and edematous Orientation/consciousness: patient oriented x3 HENMT: Head: normal to inspection, normocephalic and atraumatic Ears: hearing grossly normal bilaterally Face and sinus: normal facial exam Eyes: General: appearance normal, both eyes and all related structures Pupils: Equal, round and reactive pupils present EOM: EOMs intact bilaterally Neck: Neck: full ROM, no lymphadenopathy and no JVD Thyroid: thyroid normal Lymphatic: no lymphadenopathy noted Resp: Effort & Inspection: normal respiratory effort and able to speak in complete sentences Auscultation: clear to auscultation bilaterally Cardio: Jugular venous distension: no JVD Rate: regular rate Rhythm: regular rhythm Heart sounds: S1 normal heart sound present and S2 normal heart sound present GI: GI Palp: Yes Soft to palpation and Yes No hepatosplenomegaly present : General: Yes deferred Skin: Rashes: no rashes Wounds: no wounds Neuro: General: patient oriented x3 and CN's II-XI intact bilaterally Cranial nerves: Yes CN's II-XII intact bilaterally and Yes Equal, round and reactive pupils present Cognition (Neuro): normal cognition Speech: normal speech Gait
--- NOTE | 2021-02-16 13:30 | WPDANESEPPF ---
Anes - Initial Pre Proc Eval Procedure: Operation Date: 02/16/21 14:00 Proposed Procedures p Insertion Tunneled Dialysis Catheter - Raul Arellano DO Date/Time: 02/16/21 13:30 Surgeon: Govind Kimble MD Pre Op Diagnosis: Anasarca/anemia Patient Data Age: 55 Gender: M Height: 1.78 m Weight: 125.3 kg Last Vital Signs Temp 37.0 C 02/16/21 13:27 Pulse 90 02/16/21 13:27 Resp 22 H 02/16/21 13:27 BP 177/83 H 02/16/21 13:27 Pulse Ox 99 02/16/21 13:27 Allergies Allergy/AdvReac Type Severity Reaction Status Date / Time No Known Allergies Allergy Verified 02/15/21 15:33 Home Medications Medication Instructions Recorded Confirmed Type pen needle, diabetic 31 gauge x #30 each 09/11/19 02/15/21 Rx 5/16 insulin syringe-needle U-100 0.5 #200 each 01/01/20 02/15/21 Rx mL 29 gauge x 1/2 hydralazine 50 mg tablet 50 mg PO BID 10/02/20 02/15/21 History sevelamer carbonate 800 mg tablet 1,600 mg PO BID 10/02/20 02/15/21 History amlodipine 10 mg tablet 10 mg PO DAILY 10/06/20 02/15/21 History aspirin 81 mg chewable tablet 81 mg PO DAILY 10/06/20 02/15/21 History cholecalciferol (vitamin D3) 50 50 mcg PO DAILY 10/06/20 02/15/21 History mcg (2,000 unit) capsule insulin glargine 100 unit/mL (3 18 unit SUBCUT DAILY ml 10/06/20 02/15/21 History mL) subcutaneous pen venlafaxine 100 mg tablet 75 mg PO BID tablet 10/06/20 02/15/21 History carvedilol 25 mg PO BIDWM 10/07/20 02/15/21 History atorvastatin 80 mg PO DAILY 11/03/20 02/15/21 History bumetanide 2 mg PO BID #60 tablet 11/07/20 02/15/21 Rx famotidine 40 mg tablet 20 mg PO BID #180 tablet 12/21/20 02/15/21 Rx gabapentin 300 mg capsule 900 mg PO BID #180 cap 01/26/21 02/15/21 Rx sodium bicarbonate 650 mg PO BID 02/15/21 02/15/21 History warfarin See Rx Instructions .ROUTE .COMPLEX 02/15/21 02/15/21 History Laboratory Tests 02/15/21 02/15/21 02/15/21 10:47 16:33 17:56 Hgb Hct PT INR Puncture Site Right radial ABG pH 7.304 L (7.350-7.450) ABG pCO2 40.8 mmHg mmHg (35.0-45.0) ABG pO2 68.4 mmHg L mmHg (80.0-100.0) ABG PO2/FiO2 Ratio 0.68 % % ABG HCO3 19.8 mEq/l L mEq/l (22.0-26.0) ABG O2 Saturation 92.0 % L % (95.0-100.0) ABG O2 Content Not Reportable ABG Base Excess -6.2 mEq/l mEq/l (+/-2.0) A-a Gradient 603.8 mmHg mmHg Oxyhemoglobin Not Reportable Total Hemoglobin Not Reportable O2 Delivery Device Non-rebreather mask O2 Liters/Min 15.0 LPM LPM FiO2 100 % % POC Capillary Glucose 111 mg/dl H mg/dl (65-105) Aldosterone Aldosterone/Renin Dir ERA/PRA Tissue Hepatitis A IgM Ab Hep Bs Antigen Hep Bs Antibody Hep B Core IgM Ab Hepatitis C Ab Screen Blood Type B Positive Antibody Screen Negative Crossmatch See Detail 02/15/21 02/15/21 02/16/21 18:30 23:20 05:51 Hgb 8.2 g/dL L g/dL (14.0-18.0) Hct 27.2 % L % (42.0-52.0) PT INR Puncture Site ABG pH ABG pCO2 ABG pO2 ABG PO2/FiO2 Ratio ABG HCO3 ABG O2 Saturation ABG O2 Content ABG Base Excess A-a Gradient Oxyhemoglobin Total Hemoglobin O2 Delivery Device O2 Liters/Min FiO2 POC Capillary Glucose 111 mg/dl H mg/dl (65-105) Aldosterone Pending Aldosterone/Renin Dir Pending ERA/PRA Tissue Pending Hepatitis A IgM Ab Hep Bs Antigen Hep Bs Antibody Hep B Core IgM Ab Hepatitis C Ab Screen
[2021-02-16] MEDS: LIDO 1%/EPINEPHRINE 1:100,000 50 ML VIAL INFILTRATE (14:08)
[2021-02-16] MEDS: HEPARIN SODIUM 5,000 UNITS/ML VIAL 5000 UNITS XX (14:10)
[2021-02-16] MEDS: HEPARIN SODIUM, PORCINE 10,000 UNITS/10 ML VIAL 10000 UNITS IRRIGATION (14:10)
--- NOTE | 2021-02-16 14:26 | PM.PROC ---
Procedure Note - Detailed Date of procedure: 02/16/21 Pre-op diagnosis: ESRD Post-op diagnosis: same Procedure performed: Right internal jugular Tunneled Dialysis Catheter placement using ultrasound and fluoroscopic guidance Description of procedure: Procedure as well as risks, benefits, and alternatives were discussed with patient. Written consent was obtained and placed in chart prior to procedure. Patient was brought back to surgical suite. Placed supine on operating table. Time-out was done confirm patient procedure. IV sedation was then administered by the Anesthesia Department. His chest and neck area was prepped and draped in sterile fashion using chlorhexidine prep. Patient was placed in Trendelenburg position. SonoSite ultrasound was used to identify the right internal jugular vein. It was visualized as a compressible vessel just lateral to the carotid artery. 1% lidocaine with epinephrine was infiltrated directly over the vessel under ultrasound guidance. An 18 gauge introducer needle was then advanced under ultrasound guidance directly into the right internal jugular vein. Dark nonpulsatile blood was aspirated. A 0.035 in guidewire was then advanced through the needle under fluoroscopic guidance. The guidewire was visualized advancing all the way down into the superior vena cava. 1% lidocaine with epinephrine was then infiltrated on the right anterior chest and along the tract up to the guidewire insertion site. A 5 mm incision was made with a 15 blade scalpel. A small madisyn incision was then also made at the insertion site at the neck. The tunneler was then advanced from the chest incision up to the neck incision and the catheter tubing was brought up through this tract. The dilator and sheath were then advanced over the guidewire under fluoroscopic visualization. The dilator and guidewire were then removed leaving the sheath in place. The catheter tubing was then advanced through the sheath under fluoroscopic guidance. The sheath was unsnapped and carefully peeled away. The catheter tubing was released underneath the neck incision. Fluoroscopy was used to confirm proper placement of the catheter tubing and no kinks along its path. The catheter was then hep-locked with Hep-Lock solution. The skin of the incisions was then approximated using 4-0 Monocryl subcuticular suture. Exofin glue was then applied at the neck incision and 2x2 gauze and Tegaderm drassing applied at the chest. The patient was then awakened from anesthesia and transferred to recovery. Implants: 24 cm Duraflow2 Dialysis Catheter Anesthesia: MAC and local (1% lidocaine with epinephrine) Surgeon: Raul Arellano DO Estimated blood loss (mL): 10 Complications: No immediate complications Condition: stable Disposition: floor Findings: This is a 55-year-old man who presents with end-stage renal disease. He was previously on hemodialysis, but was able to stop hemodialysis about 8 months ago. His prior tunnel dialysis catheter was removed at that time. He was in the process of being set up for peritoneal dialysis, but he has not had his peritoneal dialysis catheter placed yet. He has had worsening fluid overload and is not diuresing anymore. He is now in need of another tunnel dialysis catheter for hemodialysis. Right internal jugular tunnel dialysis catheter was placed using ultrasound and fluoroscopic guidance. The right internal jugular vein was visualized with SonoSite ultrasound as a compressible vessel just lateral to the carotid artery. The vessel was accessed with ultrasound guidance using an 18 gauge introducer needle. Fluoroscopy was then used to guide advancement of the guidewire followed by the dilators and sheath. The 24 cm dialysis catheter was then tunneled and advanced until it was at the distal superior vena cava. The final fluoroscopic images demonstrated the catheter proper position with no kinks along its path. Chest x-ray is pending in recovery
[2021-02-16 14:47] LABS: Glucose Point of Care 105 (65-105)
--- NOTE | 2021-02-16 15:18 | PC.NURSE ---
Patient returned from post op.
--- NOTE | 2021-02-16 15:54 | PC.NURSE ---
Patient to dialysis per bed.
[2021-02-16 17:27] LABS: Glucose Point of Care 124 (65-105)
[2021-02-16 21:56] LABS: Glucose Point of Care 158 (65-105)
[2021-02-17] VITALS (28 sets, daily range): BP systolic 148–188; BP diastolic 73–104; PULSE 75–104; RESP 18–20; TEMP 36–37.6; O2SAT 0–99
[2021-02-17] MEDS: hydrALAZINE HCL 20 MG/ML VIAL 10 MG IV PUSH (00:38)
[2021-02-17] MEDS: FAMOTIDINE 20 MG TABLET PO ×3 (00:49→17:33)
[2021-02-17] MEDS: GABAPENTIN 300 MG CAPSULE 900 MG PO ×3 (00:49→20:54)
[2021-02-17] MEDS: VENLAFAXINE HCL 75 MG TABLET PO ×3 (00:49→17:33)
[2021-02-17] MEDS: carvediloL 25 MG TABLET PO ×3 (00:50→20:53)
[2021-02-17 06:41] LABS: Albumin Level 3.3 g/dL (3.5-5.1); Anion Gap 7 mmol/L (8-16); Blood Urea Nitrogen 41 mg/dL (9-20); Calcium 7.5 mg/dL (8.4-10.2); Carbon Dioxide 27 mmol/L (22-30); Chloride 107 mmol/L (98-107); Estimated CRCL calculation 20 ml/min; Estimated Glomerular Filt Rate 12; Glucose 142 mg/dL (75-110); Phosphorus 3.6 mg/dL (2.5-4.5); Potassium 3.1 mmol/L (3.4-5.0); Sodium 141 mmol/L (137-145)
[2021-02-17 07:56] LABS: Glucose Point of Care 116 (65-105)
[2021-02-17] MEDS: hydrALAZINE HCL 50 MG TABLET PO ×2 (09:03→17:33)
[2021-02-17] MEDS: SEVELAMER CARBONATE 800 MG TABLET 1600 MG PO ×2 (09:03→17:33)
[2021-02-17] MEDS: ASPIRIN 81 MG CHEWABLE TABLET PO (09:03)
[2021-02-17] MEDS: BUMETANIDE INJ 1 MG/4 ML VIAL 2 MG IV PUSH ×2 (09:38→17:32)
[2021-02-17] MEDS: INSULIN GLARGINE (*BKC) 100 UNITS/ML 18 UNITS SUB-Q (09:39)
[2021-02-17] MEDS: ATORVASTATIN 40 MG TABLET 80 MG PO (09:40)
[2021-02-17] MEDS: amLODIPine BESYLATE 5 MG TABLET 10 MG PO (09:43)
[2021-02-17] MEDS: SODIUM BICARBONATE TAB 650 MG TABLET PO ×2 (09:43→17:33)
--- NOTE | 2021-02-17 10:54 | PC.NURSE ---
Patient to dialysis per bed at 1020.
[2021-02-17 11:43] LABS: Glucose Point of Care 122 (65-105)
[2021-02-17] MEDS: EPOETIN ALFA-EPBX 10,000 UNITS/ML VIAL 10000 UNITS IV PUSH (11:46)
--- NOTE | 2021-02-17 12:04 | P.PNNP_ITS ---
Progress Note: A&P Assessment and Plan (1) End stage renal disease: Code(s): N18.6 - End stage renal disease Status: Chronic Assessment and Plan: * HD today and likely again tomorrow * s/p placement of tunneled HD catheter * will eventually transition to peritoneal dialysis as an outpatient per patient preference * continue high dose diuretics for now * arrangements for outpatient HD being finalized (2) Anemia: Code(s): D64.9 - Anemia, unspecified Status: Acute Assessment and Plan: * related to CKD/ESRD * PRBC transfusion on admission * follow-up on iron studies * follow H/H * Epogen with HD (3) Anasarca: Code(s): R60.1 - Generalized edema Status: Acute Assessment and Plan: * due to progression to ESRD * continue high dose diuretics since he still makes urine * push fluid removal with HD as tolerated (4) Essential hypertension: Code(s): I10 - Essential (primary) hypertension Status: Acute Assessment and Plan: * elevated at this time * diuresis and fluid removal should help * will adjust medications -- add KIRK-I * follow trend of hemodynamics (5) Diabetes: Code(s): E11.9 - Type 2 diabetes mellitus without complications Status: Acute Assessment and Plan: * follow accuhecks * glycemic control Will continue to follow. Subjective Date/time seen: 02/17/21 12:04 Tolerating hemodialysis/dry ultrafiltration treatment at the time of my visit (seen on HD/DUF at ~ 11:55AM); s/p tunneled HD catheter placement yesterday afternoon followed by first hemodialysis treatment; edema and breathing are significantly better; no apparent distress. Exam Narrative: Exam Narrative: General: WD/WN male in NAD Heart: normal S1 and S2; no rub Lungs: decreased at bases Abdomen: soft, nontender, nondistended, positive bowel sounds Extremities: no cyanosis or clubbing; 1+ edema Skin: warm and dry Objective Data Vital Signs Vital Signs: Vital Signs Temp Pulse Pulse Resp BP BP Pulse Ox 02/17/21 11:45 85 178/95 H 02/17/21 10:37 87 171/95 H 02/17/21 10:30 37.1 C 87 20 172/95 H 02/17/21 09:54 97 02/17/21 09:44 92 02/17/21 08:00 36.7 C 90 18 148/73 H 96 02/17/21 07:30 94 91 02/17/21 04:00 37.2 C 96 20 188/96 H 99 02/17/21 00:50 104 H 02/17/21 00:00 37.6 C H 104 H 20 187/90 H 95 02/16/21 22:08 93 91 02/16/21 22:00 92 87 L 02/16/21 21:40 99 98 02/16/21 21:20 97 100 02/16/21 20:52 36.6 C 94 20 180/95 H 99 02/16/21 20:46 94 100 02/16/21 20:27 92 99 02/16/21 20:00 93 20 91 02/16/21 19:13 36.9 C 83 18 183/99 H 02/16/21 19:00 85 181/93 H 02/16/21 18:40 80 171/103 H 02/16/21 18:20 85 187/96 H 02/16/21 18:00 83 170/105 H 02/16/21 17:40 87 173/97 H 02/16/21 17:20 83 158/103 H 02/16/21 17:00 80 158/102 H 02/16/21 16:40 81 156/94 H 02/16/21 16:12 87 02/16/21 16:10 81 172/102 H 02/16/21 16:01 36.7 C 86 20 179/101 H 02/16/21 15:22 36.6 C 86 20 163/86 H 99 02/16/21 14:
--- NOTE | 2021-02-17 12:04 | PM.PNNEP ---
Progress Note: A&P Assessment and Plan (1) End stage renal disease: Code(s): N18.6 - End stage renal disease Status: Chronic Assessment and Plan: HD today and likely again tomorrow s/p placement of tunneled HD catheter will eventually transition to peritoneal dialysis as an outpatient per patient preference continue high dose diuretics for now arrangements for outpatient HD being finalized (2) Anemia: Code(s): D64.9 - Anemia, unspecified Status: Acute Assessment and Plan: related to CKD/ESRD PRBC transfusion on admission follow-up on iron studies follow H/H Epogen with HD (3) Anasarca: Code(s): R60.1 - Generalized edema Status: Acute Assessment and Plan: due to progression to ESRD continue high dose diuretics since he still makes urine push fluid removal with HD as tolerated (4) Essential hypertension: Code(s): I10 - Essential (primary) hypertension Status: Acute Assessment and Plan: elevated at this time diuresis and fluid removal should help will adjust medications -- add KIRK-I follow trend of hemodynamics (5) Diabetes: Code(s): E11.9 - Type 2 diabetes mellitus without complications Status: Acute Assessment and Plan: follow accuhecks glycemic control Will continue to follow. Subjective Date/time seen: 02/17/21 12:04 Tolerating hemodialysis/dry ultrafiltration treatment at the time of my visit (seen on HD/DUF at ~ 11:55AM); s/p tunneled HD catheter placement yesterday afternoon followed by first hemodialysis treatment; edema and breathing are significantly better; no apparent distress. Exam Narrative: Exam Narrative: General: WD/WN male in NAD Heart: normal S1 and S2; no rub Lungs: decreased at bases Abdomen: soft, nontender, nondistended, positive bowel sounds Extremities: no cyanosis or clubbing; 1+ edema Skin: warm and dry Objective Data Vital Signs Vital Signs: Vital Signs Temp Pulse Pulse Resp BP BP Pulse Ox 02/17/21 11:45 85 178/95 H 02/17/21 10:37 87 171/95 H 02/17/21 10:30 37.1 C 87 20 172/95 H 02/17/21 09:54 97 02/17/21 09:44 92 02/17/21 08:00 36.7 C 90 18 148/73 H 96 02/17/21 07:30 94 91 02/17/21 04:00 37.2 C 96 20 188/96 H 99 02/17/21 00:50 104 H 02/17/21 00:00 37.6 C H 104 H 20 187/90 H 95 02/16/21 22:08 93 91 02/16/21 22:00 92 87 L 02/16/21 21:40 99 98 02/16/21 21:20 97 100 02/16/21 20:52 36.6 C 94 20 180/95 H 99 02/16/21 20:46 94 100 02/16/21 20:27 92 99 02/16/21 20:00 93 20 91 02/16/21 19:13 36.9 C 83 18 183/99 H 02/16/21 19:00 85 181/93 H 02/16/21 18:40 80 171/103 H 02/16/21 18:20 85 187/96 H 02/16/21 18:00 83 170/105 H 02/16/21 17:40 87 173/97 H 02/16/21 17:20 83 158/103 H 02/16/21 17:00 80 158/102 H 02/16/21 16:40 81 156/94 H 02/16/21 16:12 87 02/16/21 16:10 81 172/102 H 02/16/21 16:01 36.7 C 86 20 179/101 H 02/16/21 15:22 36.6 C 86 20 163/86 H 99 02/16/21 14:56 94 12 173/95 H 98 02/16/21 14:40 85 12 177/109 H 99 02/16/21 14:27 36.6 C 86 15 171/95 H 100 02/16/21 13:27 37.0 C 90 22 H 177/83 H 99 Intake/Output Intake/Output: Intake & Output 02/14/21 02/15/21 02/16/21 02/17/21 23:59 23:59 23:59 23:59 Intake Total 1110 1495 480 Output Total 600 2375 1900 Balance 882 -643 -5912 Meds/Results Medications: Active Medications Generic Name Dose Route Start Last Admin Trade Name Freq PRN Reason Stop Dose Admin Albuterol 2.5 mg 02/15/21 17:55 Albuterol Sulfate Neb 2.5 Mg/0.5 Ml Inh INHALATION Q4HRT PRN Shortness Of Breath Amlodipine Besylate 10 mg 02/17/21 09:00 02/17/21 09:43 Amlodipine Besylate 5 Mg Tablet PO 10 mg DAILY ALEX Ad
--- NOTE | 2021-02-17 13:16 | PM.IMPN ---
Progress Note: A&P Assessment and Plan (1) End stage renal disease: Code(s): N18.6 - End stage renal disease Status: Chronic Assessment and Plan: Patient is status post tunneled catheter placement for hemodialysis emergent treatment due to fluid overload Follow Nephrology recs (2) Anasarca associated with disorder of kidney: Code(s): N04.9 - Nephrotic syndrome with unspecified morphologic changes Status: Acute Assessment and Plan: Will undergo hemodialysis for fluid removal Patient is status post tunneled catheter placement Had hemodialysis yesterday Follow nephrology rate (3) Anemia: Qualifiers: Anemia type: due to chronic kidney disease Chronic kidney disease stage: stage 5, not on chronic dialysis Qualified Code(s): N18.5 - Chronic kidney disease, stage 5; D63.1 - Anemia in chronic kidney disease Code(s): D64.9 - Anemia, unspecified Status: Acute Assessment and Plan: Likely secondary to chronic kidney disease Transfuse as needed Procrit as per nephrology (4) Anemia requiring transfusions: Code(s): D64.9 - Anemia, unspecified Status: Acute Assessment and Plan: Patient received 1 unit of packed red blood cells (5) Insulin dependent type 2 diabetes mellitus: Code(s): E11.9 - Type 2 diabetes mellitus without complications; Z79.4 - alf (current) use of insulin Status: Chronic Assessment and Plan: Continue to monitor Continue insulin Accu-Cheks AC and HS Insulin sliding scale as needed (6) Essential hypertension: Code(s): I10 - Essential (primary) hypertension Status: Acute Assessment and Plan: Continue medications Continue to monitor (7) CAD (coronary artery disease), autologous vein bypass graft: Code(s): I25.810 - Atherosclerosis of coronary artery bypass graft(s) without angina pectoris Status: Acute Assessment and Plan: Stable Continue aspirin Continue atorvastatin Continue carvedilol Continue hydralazine (8) S/P CABG x 1: Onset Date: ~07/24/20 Code(s): Z95.1 - Presence of aortocoronary bypass graft Status: Acute Assessment and Plan: Stable Continue to monitor Denies angina (9) Acute on chronic combined systolic and diastolic CHF (congestive heart failure): Code(s): I50.43 - Acute on chronic combined systolic (congestive) and diastolic (congestive) heart failure Status: Acute Assessment and Plan: Secondary to fluid overload secondary to kidney failure Will undergo hemodialysis for fluid removal Subjective Date/time seen: 02/17/21 13:16 I feel much better Review of Systems Review of Systems: Narrative: Patient was admitted due to worsening shortness of breath and fluid overload with anasarca patient had been asleep in his recliner due to being unable to lay flat in the bed Constitutional: Comments: No fevers no rigors no chills Cardiovascular: Comments: Shortness of breath bilateral lower extremities Respiratory: Comments: Shortness of breath no cough no sputum pressure Gastrointestinal: Comments: No nausea no vomiting no abdominal pain no diarrhea Musculoskeletal: Comments: Bilateral lower extremity swelling right toe ulcer left diabetic foot Integumentary/Breasts: Comments: Right lower extremity laceration wounds scabbed on Neurologic: Comments: No sensorimotor deficit Exam Narrative: Exam Narrative: Patient is laying in bed Const: General: comfortable, no acute distress, well developed, ill appearing chronically and other (ANASARCA) Nutritional Appearance: overweight and edematous Orientation/consciousness: patient oriented x3 HENMT: Head: normal to inspection, normocephalic and atraumatic Ears: hearing grossly normal bilaterally Face and sinus: normal facial exam Eyes: General: appearance normal, both eyes and all related structures Pupils: Equal, round and reactive pupils present EOM: E
--- NOTE | 2021-02-17 13:59 | PC.NURSE ---
Patient returned from dialysis per bed.
--- NOTE | 2021-02-17 14:23 | PC.NURSE ---
On 02/17/21, the student, [ Pankaj Buckley], provided care and completed [facility] documentation on this patient. I have reviewed the student's documentation and agree with the findings.
[2021-02-17 17:24] LABS: Glucose Point of Care 149 (65-105)
[2021-02-17] MEDS: lisinopriL 10 MG TABLET PO (17:33)
[2021-02-17 21:26] LABS: Glucose Point of Care 231 (65-105)
[2021-02-18] VITALS (26 sets, daily range): BP systolic 147–183; BP diastolic 78–107; PULSE 73–100; RESP 16–20; TEMP 36.4–37.3; O2SAT 93–99
[2021-02-18 06:04] LABS: Hematocrit 29.1 % (42.0-52.0); Hemoglobin 8.6 g/dL (14.0-18.0); Mean Corpuscular HGB Conc 29.6 g/dl (32-36); Mean Corpuscular Hemoglobin 23.4 pg (26-34); Mean Corpuscular Volume 79.3 fl (80-100); Mean Platelet Volume 8.8 fl (7.4-10.4); Platelet Count Result 178 k/mm3 (150-375); Red Blood Count 3.67 M/mm3 (4.6-6.20); Red Cell Distribution Width 17.4 % (11.5-14.5); White Blood Count 8.2 K/mm3 (4.5-10.0)
[2021-02-18 07:03] LABS: Iron 28 ug/dL (49-181)
[2021-02-18 07:13] LABS: Percent Iron Saturation 11 % (20-50)
[2021-02-18 07:59] LABS: Glucose Point of Care 104 (65-105)
[2021-02-18 09:24] LABS: Albumin Level 3.3 g/dL (3.5-5.1); Anion Gap 6 mmol/L (8-16); Blood Urea Nitrogen 31 mg/dL (9-20); Carbon Dioxide 30 mmol/L (22-30); Chloride 106 mmol/L (98-107); Estimated CRCL calculation 22 ml/min; Estimated Glomerular Filt Rate 14; Glucose 110 mg/dL (75-110); Phosphorus 3.7 mg/dL (2.5-4.5); Sodium 142 mmol/L (137-145)
[2021-02-18 12:07] LABS: Glucose Point of Care 101 (65-105)
[2021-02-18] MEDS: GABAPENTIN 300 MG CAPSULE 900 MG PO ×2 (12:26→20:03)
[2021-02-18] MEDS: SEVELAMER CARBONATE 800 MG TABLET 1600 MG PO ×2 (12:27→17:30)
[2021-02-18] MEDS: SODIUM BICARBONATE TAB 650 MG TABLET PO ×2 (12:27→17:35)
[2021-02-18] MEDS: amLODIPine BESYLATE 5 MG TABLET 10 MG PO (12:27)
[2021-02-18] MEDS: VENLAFAXINE HCL 75 MG TABLET PO ×2 (12:27→17:35)
[2021-02-18] MEDS: lisinopriL 10 MG TABLET PO ×2 (12:28→17:35)
[2021-02-18] MEDS: FAMOTIDINE 20 MG TABLET PO ×2 (12:28→17:36)
[2021-02-18] MEDS: hydrALAZINE HCL 50 MG TABLET PO ×2 (12:28→17:30)
[2021-02-18] MEDS: ASPIRIN 81 MG CHEWABLE TABLET PO (12:28)
[2021-02-18] MEDS: ATORVASTATIN 40 MG TABLET 80 MG PO (12:29)
[2021-02-18] MEDS: carvediloL 25 MG TABLET PO ×2 (12:29→20:03)
[2021-02-18] MEDS: BUMETANIDE INJ 1 MG/4 ML VIAL 2 MG IV PUSH (12:29)
--- NOTE | 2021-02-18 12:44 | PM.IMPN ---
Progress Note: A&P Assessment and Plan (1) End stage renal disease: Code(s): N18.6 - End stage renal disease Status: Chronic Assessment and Plan: Patient is status post tunneled catheter placement for hemodialysis emergent treatment due to fluid overload Follow Nephrology recs (2) Anasarca associated with disorder of kidney: Code(s): N04.9 - Nephrotic syndrome with unspecified morphologic changes Status: Acute Assessment and Plan: Will undergo hemodialysis for fluid removal Patient is status post tunneled catheter placement Had hemodialysis yesterday Follow nephrology rate IMPROVED (3) Anemia: Qualifiers: Anemia type: due to chronic kidney disease Chronic kidney disease stage: stage 5, not on chronic dialysis Qualified Code(s): N18.5 - Chronic kidney disease, stage 5; D63.1 - Anemia in chronic kidney disease Code(s): D64.9 - Anemia, unspecified Status: Acute Assessment and Plan: Likely secondary to chronic kidney disease Transfuse as needed Procrit as per nephrology (4) Anemia requiring transfusions: Code(s): D64.9 - Anemia, unspecified Status: Acute Assessment and Plan: Patient received 1 unit of packed red blood cells (5) Insulin dependent type 2 diabetes mellitus: Code(s): E11.9 - Type 2 diabetes mellitus without complications; 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 Status: Chronic Assessment and Plan: Continue to monitor Continue insulin Accu-Cheks AC and HS Insulin sliding scale as needed (6) Essential hypertension: Code(s): I10 - Essential (primary) hypertension Status: Acute Assessment and Plan: Continue medications Continue to monitor (7) CAD (coronary artery disease), autologous vein bypass graft: Code(s): I25.810 - Atherosclerosis of coronary artery bypass graft(s) without angina pectoris Status: Acute Assessment and Plan: Stable Continue aspirin Continue atorvastatin Continue carvedilol Continue hydralazine (8) S/P CABG x 1: Onset Date: ~07/24/20 Code(s): Z95.1 - Presence of aortocoronary bypass graft Status: Acute Assessment and Plan: Stable Continue to monitor Denies angina (9) Acute on chronic combined systolic and diastolic CHF (congestive heart failure): Code(s): I50.43 - Acute on chronic combined systolic (congestive) and diastolic (congestive) heart failure Status: Acute Assessment and Plan: Secondary to fluid overload secondary to kidney failure Will undergo hemodialysis for fluid removal Subjective Date/time seen: 02/18/21 12:44 I FEEL MUCH BETTER Review of Systems Review of Systems: All systems reviewed & are unremarkable except as noted in HPI and below Constitutional: Constitutional: Reports chills and Reports fever(s) Cardiovascular: Cardiovascular: Reports leg edema, Reports dyspnea and Reports dyspnea on exertion Respiratory: Respiratory: Reports dyspnea and Reports dyspnea on exertion Neurologic: Reports Abnormal speech present (expressive aphasia s/p CVA) Exam Narrative: Exam Narrative: Patient is laying in bed Const: General: comfortable, no acute distress, well developed, ill appearing chronically and other (ANASARCA) Nutritional Appearance: overweight and edematous Orientation/consciousness: patient oriented x3 HENMT: Head: normal to inspection, normocephalic and atraumatic Ears: hearing grossly normal bilaterally Face and sinus: normal facial exam Eyes: General: appearance normal, both eyes and all related structures Pupils: Equal, round and reactive pupils present EOM: EOMs intact bilaterally Neck: Neck: full ROM, no lymphadenopathy and no JVD Thyroid: thyroid normal Lymphatic: no lymphadenopathy noted Resp: Effort & Inspection: normal respiratory effort, able to speak in complete sentences and respiratory distress (MILD) Auscultation: clear to auscultation
[2021-02-18] MEDS: INSULIN GLARGINE (*BKC) 100 UNITS/ML 18 UNITS SUB-Q (14:15)
--- NOTE | 2021-02-18 15:30 | PM.PNNEP ---
Progress Note: A&P Assessment and Plan (1) End stage renal disease: Code(s): N18.6 - End stage renal disease Status: Chronic Assessment and Plan: HD today and continue T/T/S schedule (this will apparently be his outpatient schedule) s/p placement of tunneled HD catheter will eventually transition to peritoneal dialysis as an outpatient per patient preference continue high dose diuretics for now but switch to oral formulation follow electrolytes, volume status, and clearance (2) Anemia: Code(s): D64.9 - Anemia, unspecified Status: Acute Assessment and Plan: related to CKD/ESRD PRBC transfusion on admission dose with IV venofer follow H/H Epogen with HD (3) Anasarca: Code(s): R60.1 - Generalized edema Status: Acute Assessment and Plan: due to progression to ESRD continue high dose diuretics since he still makes urine push fluid removal with HD as tolerated (4) Essential hypertension: Code(s): I10 - Essential (primary) hypertension Status: Acute Assessment and Plan: better control at this time diuresis and fluid removal should help additon of KIRK-I appears to have helped as well follow trend of hemodynamics (5) Diabetes: Code(s): E11.9 - Type 2 diabetes mellitus without complications Status: Acute Assessment and Plan: follow accuhecks on SSI and Lantus Would not be opposed to discharge later today or tomorrow if otherwise medically stable -- I believe his outpatient dialysis has been finalized as well. Will continue to follow. Subjective Date/time seen: 02/18/21 15:30 Tolerated dialysis earlier today without any issues or problems; breathing/edema continue to improve with interventions to date; no apparent distress voiced at this time; no events overnight or earlier this AM; overall, he feels significantly better. Exam Narrative: Exam Narrative: General: WD/WN male in NAD Heart: normal S1 and S2; no rub Lungs: clear anteriorly Abdomen: soft, nontender, nondistended, positive bowel sounds Extremities: no cyanosis or clubbing; trace - 1+ edema Skin: warm and dry Objective Data Vital Signs Vital Signs: Vital Signs Temp Pulse Pulse Resp BP BP Pulse Ox 02/18/21 14:00 36.9 C 87 18 147/78 H 99 02/18/21 12:29 74 02/18/21 12:00 100 02/18/21 11:51 36.6 C 88 18 158/99 H 02/18/21 11:40 91 173/100 H 02/18/21 11:20 78 150/90 H 02/18/21 10:40 92 174/105 H 02/18/21 10:20 81 173/101 H 02/18/21 10:00 96 156/97 H 02/18/21 09:40 78 169/94 H 02/18/21 09:20 83 169/91 H 02/18/21 09:00 79 183/97 H 02/18/21 08:40 78 161/94 H 02/18/21 08:30 73 173/88 H 02/18/21 08:20 76 167/93 H 02/18/21 08:13 77 165/98 H 02/18/21 08:03 36.4 C 81 18 183/107 H 02/18/21 08:00 90 02/18/21 06:00 37.1 C 89 20 174/82 H 93 02/18/21 04:00 92 02/18/21 00:00 85 02/17/21 22:58 94 02/17/21 22:00 37.1 C 87 18 179/93 H 99 02/17/21 20:53 80 02/17/21 20:00 85 18 99 Intake/Output Intake/Output: Intake & Output 02/15/21 02/16/21 02/17/21 02/18/21 23:59 23:59 23:59 23:59 Intake Total 1110 1495 1460 480 Output Total 600 2375 6100 3700 Balance 685 -073 -1123 -8765 Meds/Results Medications: Active Medications Generic Name Dose Route Start Last Admin Trade Name Nathanq PRN Reason Stop Dose Admin Albuterol 2.5 mg 02/15/21 17:55 Albuterol Sulfate Neb 2.5 Mg/0.5 Ml Inh INHALATION Q4HRT PRN Shortness Of Breath Amlodipine Besylate 10 mg 02/17/21 09:00 02/18/21 12:27 Amlodipine Besylate 5 Mg Tablet PO 10 mg DAILY ALEX Administration Aspirin 81 mg 02/17/21 08:00 02/18/21 12:28 Aspirin 81 Mg Chewable Tablet PO 81 mg DAILY@0800 ALEX Administration Atorvastatin Calcium 80 mg 02/17/21 09:00
[2021-02-18 16:40] LABS: Glucose Point of Care 179 (65-105)
[2021-02-18] MEDS: IRON SUCROSE COMPLEX 200 MG in SODIUM CHLORIDE 0.9% IV 50 ML 120 MG IVPB (16:46)
[2021-02-18] MEDS: POTASSIUM CHLORIDE 20 MEQ TABLET PO (16:46)
[2021-02-18] MEDS: BUMETANIDE 1 MG TABLET 2 MG PO (17:34)
[2021-02-18 20:38] LABS: Glucose Point of Care 209 (65-105)
[2021-02-19] VITALS: PULSE 84
[2021-02-19 04:00] VITALS: PULSE 80
[2021-02-19 06:00] VITALS: BP 158/76; PULSE 80; RESP 16; TEMP 37.3; O2SAT 98
[2021-02-19 07:15] LABS: Potassium 3.2 mmol/L (3.4-5.0)
[2021-02-19 07:19] LABS: Albumin Level 3.3 g/dL (3.5-5.1); Anion Gap 4 mmol/L (8-16); Blood Urea Nitrogen 19 mg/dL (9-20); Calcium 8.2 mg/dL (8.4-10.2); Carbon Dioxide 32 mmol/L (22-30); Chloride 104 mmol/L (98-107); Estimated CRCL calculation 25 ml/min; Estimated Glomerular Filt Rate 16; Glucose 124 mg/dL (75-110); Phosphorus 3.5 mg/dL (2.5-4.5); Sodium 140 mmol/L (137-145)
[2021-02-19 08:11] LABS: Glucose Point of Care 126 (65-105)
[2021-02-19 08:20] VITALS: PULSE 80
[2021-02-19 08:48] VITALS: PULSE 72
[2021-02-19] MEDS: amLODIPine BESYLATE 5 MG TABLET 10 MG PO (08:48)
[2021-02-19] MEDS: carvediloL 25 MG TABLET PO (08:48)
[2021-02-19] MEDS: ASPIRIN 81 MG CHEWABLE TABLET PO (08:48)
[2021-02-19] MEDS: BUMETANIDE 1 MG TABLET 2 MG PO (08:49)
[2021-02-19] MEDS: SEVELAMER CARBONATE 800 MG TABLET 1600 MG PO (08:50)
[2021-02-19] MEDS: SODIUM BICARBONATE TAB 650 MG TABLET PO (08:50)
[2021-02-19] MEDS: ATORVASTATIN 40 MG TABLET 80 MG PO (08:50)
[2021-02-19] MEDS: GABAPENTIN 300 MG CAPSULE 900 MG PO (08:50)
[2021-02-19] MEDS: lisinopriL 10 MG TABLET PO (08:50)
[2021-02-19] MEDS: FAMOTIDINE 20 MG TABLET PO (08:51)
[2021-02-19] MEDS: VENLAFAXINE HCL 75 MG TABLET PO (08:51)
[2021-02-19] MEDS: hydrALAZINE HCL 50 MG TABLET PO (08:51)
[2021-02-19] MEDS: INSULIN GLARGINE (*BKC) 100 UNITS/ML 18 UNITS SUB-Q (09:00)
--- NOTE | 2021-02-19 10:48 | PM.PNNEP ---
Progress Note: A&P Assessment and Plan (1) End stage renal disease: Code(s): N18.6 - End stage renal disease Status: Chronic Assessment and Plan: HD yesterday and continue T/T/S schedule (this will apparently be his outpatient schedule) s/p placement of tunneled HD catheter will eventually transition to peritoneal dialysis as an outpatient per patient preference continue high dose diuretics for now but switch to oral formulation follow electrolytes, volume status, and clearance (2) Anemia: Code(s): D64.9 - Anemia, unspecified Status: Acute Assessment and Plan: related to CKD/ESRD PRBC transfusion on admission dosed with IV venofer follow H/H Epogen with HD (3) Anasarca: Code(s): R60.1 - Generalized edema Status: Acute Assessment and Plan: due to progression to ESRD continue high dose diuretics since he still makes urine push fluid removal with HD as tolerated (4) Essential hypertension: Code(s): I10 - Essential (primary) hypertension Status: Acute Assessment and Plan: better control at this time diuresis and fluid removal should help additon of KIRK-I appears to have helped as well follow trend of hemodynamics (5) Diabetes: Code(s): E11.9 - Type 2 diabetes mellitus without complications Status: Acute Assessment and Plan: follow accuhecks on SSI and Lantus Would not be opposed to discharge later today if otherwise medically stable -- I believe his outpatient dialysis has been finalized with his first outpatient treatment tomorrow at [facility]. Will continue to follow. Subjective Date/time seen: 02/19/21 10:48 Appears to be doing reasonably well at the time of my visit; breathing is close to baseline and he feels his swelling/edema has completely resolved; anxious for discharge; no apparent distress voiced. Exam Narrative: Exam Narrative: General: WD/WN male in NAD Heart: normal S1 and S2; no rub Lungs: clear anteriorly Abdomen: soft, nontender, nondistended, positive bowel sounds Extremities: no cyanosis or clubbing; trace edema Skin: warm and dry Objective Data Vital Signs Vital Signs: Vital Signs Temp Pulse Resp BP Pulse Ox 02/19/21 08:48 72 02/19/21 08:20 80 02/19/21 06:00 37.3 C 80 16 158/76 H 98 02/19/21 04:00 80 02/19/21 00:00 84 02/18/21 21:56 37.3 C 90 16 173/93 H 96 02/18/21 20:53 98 02/18/21 20:03 91 02/18/21 20:00 96 18 99 02/18/21 16:00 90 02/18/21 14:00 36.9 C 87 18 147/78 H 99 02/18/21 12:29 74 02/18/21 12:00 100 02/18/21 11:51 36.6 C 88 18 158/99 H Intake/Output Intake/Output: Intake & Output 02/16/21 02/17/21 02/18/21 02/19/21 23:59 23:59 23:59 23:59 Intake Total 1495 1460 1220 540 Output Total 1630 1828 5932 [facility] -[phone] Meds/Results Medications: Active Medications Generic Name Dose Route Start Last Admin Trade Name Freq PRN Reason Stop Dose Admin Albuterol 2.5 mg 02/15/21 17:55 Albuterol Sulfate Neb 2.5 Mg/0.5 Ml Inh INHALATION Q4HRT PRN Shortness Of Breath Amlodipine Besylate 10 mg 02/17/21 09:00 02/19/21 08:48 Amlodipine Besylate 5 Mg Tablet PO 10 mg DAILY ALEX Administration Aspirin 81 mg 02/17/21 08:00 02/19/21 08:48 Aspirin 81 Mg Chewable Tablet PO 81 mg DAILY@0800 ALEX Administration Atorvastatin Calcium 80 mg 02/17/21 09:00 02/19/21 08:50 Atorvastatin 40 Mg Tablet PO 80 mg DAILY ALEX Administration Bumetanide 2 mg 02/18/21 17:00 02/19/21 08:49 Bumetanide 1 Mg Tablet PO 2 mg BID ALEX Administration Carvedilol 25 mg 02/17/21 00:35 02/19/21 08:48 Carvedilol 25 Mg Tablet PO 25 mg Q12HR ALEX Administration Famotidine 20 mg 02/17/21 00:35 02/19/21 08:51 Famotidine 20 Mg Tablet PO 20 mg BID ALEX Administration Gabapentin 900 mg
--- NOTE | 2021-02-19 10:48 | P.PNNP_ITS ---
Progress Note: A&P Assessment and Plan (1) End stage renal disease: Code(s): N18.6 - End stage renal disease Status: Chronic Assessment and Plan: * HD yesterday and continue T/T/S schedule (this will apparently be his outpatient schedule) * s/p placement of tunneled HD catheter * will eventually transition to peritoneal dialysis as an outpatient per patient preference * continue high dose diuretics for now but switch to oral formulation * follow electrolytes, volume status, and clearance (2) Anemia: Code(s): D64.9 - Anemia, unspecified Status: Acute Assessment and Plan: * related to CKD/ESRD * PRBC transfusion on admission * dosed with IV venofer * follow H/H * Epogen with HD (3) Anasarca: Code(s): R60.1 - Generalized edema Status: Acute Assessment and Plan: * due to progression to ESRD * continue high dose diuretics since he still makes urine * push fluid removal with HD as tolerated (4) Essential hypertension: Code(s): I10 - Essential (primary) hypertension Status: Acute Assessment and Plan: * better control at this time * diuresis and fluid removal should help * additon of KIRK-I appears to have helped as well * follow trend of hemodynamics (5) Diabetes: Code(s): E11.9 - Type 2 diabetes mellitus without complications Status: Acute Assessment and Plan: * follow accuhecks * on SSI and Lantus Would not be opposed to discharge later today if otherwise medically stable -- I believe his outpatient dialysis has been finalized with his first outpatient treatment tomorrow at [facility]. Will continue to follow. Subjective Date/time seen: 02/19/21 10:48 Appears to be doing reasonably well at the time of my visit; breathing is close to baseline and he feels his swelling/edema has completely resolved; anxious for discharge; no apparent distress voiced. Exam Narrative: Exam Narrative: General: WD/WN male in NAD Heart: normal S1 and S2; no rub Lungs: clear anteriorly Abdomen: soft, nontender, nondistended, positive bowel sounds Extremities: no cyanosis or clubbing; trace edema Skin: warm and dry Objective Data Vital Signs Vital Signs: Vital Signs Temp Pulse Resp BP Pulse Ox 02/19/21 08:48 72 02/19/21 08:20 80 02/19/21 06:00 37.3 C 80 16 158/76 H 98 02/19/21 04:00 80 02/19/21 00:00 84 02/18/21 21:56 37.3 C 90 16 173/93 H 96 02/18/21 20:53 98 02/18/21 20:03 91 02/18/21 20:00 96 18 99 02/18/21 16:00 90 02/18/21 14:00 36.9 C 87 18 147/78 H 99 02/18/21 12:29 74 02/18/21 12:00 100 02/18/21 11:51 36.6 C 88 18 158/99 H Intake/Output Intake/Output: Intake & Output 02/16/21 02/17/21 02/18/21 02/19/21 23:59 23:59 23:59 23:59 Intake Total 1495 1460 1220 540 Output Total 2375 6100 7619 [facility] -[phone] Meds/Results Medications: Active Medications Generic Name Dose Route Start Last Admin Trade Name Freq PRN Reason Stop Dose Admin Albuterol 2.5 mg 02/15/21 17:55 Albuterol Sulfate Neb 2.5 Mg/0.5 Ml Inh INHALATION Q4HRT PRN
[2021-02-19 12:11] LABS: Glucose Point of Care 180 (65-105)
[2021-02-19 14:00] VITALS: BP 146/71; PULSE 81; RESP 18; TEMP 36.4; O2SAT 98
--- NOTE | 2021-02-19 14:20 | PM.DS ---
DS: Admitting Diagnosis Admitting Diagnosis Admitting Diagnosis: (1) Anasarca associated with disorder of kidney: Code(s): N04.9 - Nephrotic syndrome with unspecified morphologic changes Status: Acute Assessment and Plan: SECONDARY TO CHRONIC KIDNEY DISEASE PLANS FOR PERITONEAL DIALYSIS WILL GET CATHETER FOR HEMODIALYSIS SURGERY HAS BEEN CONSULTED FOR TUNNEL CATHETER INSERTION (2) Chronic kidney disease (CKD), stage V: Code(s): N18.5 - Chronic kidney disease, stage 5 Status: Chronic Assessment and Plan: WORSENING BUN AND CREATININE LIKELY END-STAGE RENAL DISEASE DUE TO PROGRESSION (3) Anemia: Qualifiers: Anemia type: due to chronic kidney disease Chronic kidney disease stage: stage 5, not on chronic dialysis Qualified Code(s): N18.5 - Chronic kidney disease, stage 5; D63.1 - Anemia in chronic kidney disease Code(s): D64.9 - Anemia, unspecified Status: Acute Assessment and Plan: LIKELY SECONDARY TO CHRONIC KIDNEY DISEASE WILL GET A BLOOD TRANSFUSION 1 UNIT OF PACKED RBC'S (4) Insulin dependent type 2 diabetes mellitus: Code(s): E11.9 - Type 2 diabetes mellitus without complications; Z79.4 - long term (current) use of insulin Status: Chronic Assessment and Plan: ACCU-CHEKS AC AND HS CONTINUE LANTUS INSULIN SLIDING SCALE NEEDED (5) Essential hypertension: Code(s): I10 - Essential (primary) hypertension Status: Acute Assessment and Plan: CONTINUE HOME MEDS (6) CAD (coronary artery disease), autologous vein bypass graft: Code(s): I25.810 - Atherosclerosis of coronary artery bypass graft(s) without angina pectoris Status: Acute Assessment and Plan: CONTINUE HOME MEDS NO CHEST PAIN (7) S/P CABG x 1: Onset Date: ~07/24/20 Code(s): Z95.1 - Presence of aortocoronary bypass graft Status: Acute Assessment and Plan: CONTINUE TO MONITOR FOLLOW-UP IN THE OUTPATIENT SETTING (8) Acute on chronic combined systolic and diastolic CHF (congestive heart failure): Code(s): I50.43 - Acute on chronic combined systolic (congestive) and diastolic (congestive) heart failure Status: Acute Assessment and Plan: WILL GET THE HEMODIALYSIS CATHETER REMOVED FLUIDS PER NEPHROLOGY (9) Dyspnea: Code(s): R06.00 - Dyspnea, unspecified Status: Acute Assessment and Plan: SECONDARY TO FLUID RETENTION AND OVERLOAD DUE TO WORSENING CHRONIC KIDNEY DISEASE (10) Aortic valve stenosis: Qualifiers: Cardiac valve disease etiology: etiology unspecified Qualified Code(s): I35.0 - Nonrheumatic aortic (valve) stenosis Code(s): I35.0 - Nonrheumatic aortic (valve) stenosis Status: Chronic DS: Discharge Diagnosis Discharge Diagnosis (1) End stage renal disease: Code(s): N18.6 - End stage renal disease Status: Chronic Assessment and Plan: Patient is status post tunneled catheter placement for hemodialysis emergent treatment due to fluid overload Follow Nephrology recs PATIENT HAS 3 HEMODIALYSIS TREATMENT WITH SIGNIFICANT FLUID REMOVAL PATIENT WILL CONTINUE HEMODIALYSIS IN THE OUTPATIENT SETTING PER NEPHROLOGY (2) Anasarca associated with disorder of kidney: Code(s): N04.9 - Nephrotic syndrome with unspecified morphologic changes Status: Acute Assessment and Plan: Will undergo hemodialysis for fluid removal Patient is status post tunneled catheter placement Had hemodialysis yesterday Follow nephrology rate IMPROVED (3) Anemia: Qualifiers: Anemia type: due to chronic kidney disease Chronic kidney disease stage: stage 5, not on chronic dialysis Qualified Code(s): N18.5 - Chronic kidney disease, stage 5; D63.1 - Anemia in chronic kidney disease Code(s): D64.9 - Anemia, unspecified Status: Acute Assessment and Plan: Likely secondary to chronic kidney disease Transfuse as needed Procrit as
[2021-02-23 11:14] LABS: PRA 1.49 ng/mL/h (0.25-5.82)
== END 2021-02-19 15:15 | disposition home or self-care (01) | DRG 291 ==
LOC: ANHED 12:28 → ANH3MEDSUR 12:49
PROVIDERS: Family Medicine; Internal Medicine Nephrology; Physician Assistant; Surgery; Admitting Provider Internal Medicine; Emergency Provider Family Medicine; PCP Family Medicine; Visit Provider Internal Medicine
PROC: 0JH63XZ Insertion of Tunneled Vascular Access Device into Chest Subcutaneous Tissue and Fascia, Percutaneous Approach (ICD-10-PCS; CPT 36908; principal; 2021-02-16 14:00)
DX: I13.2 Hypertensive heart and chronic kidney disease with heart failure and with stage 5 chronic kidney disease, or end stage renal disease (principal); I50.43 Acute on chronic combined systolic (congestive) and diastolic (congestive) heart failure; N18.6 End stage renal disease; I25.810 Atherosclerosis of coronary artery bypass graft(s) without angina pectoris; D63.1 Anemia in chronic kidney disease; E11.22 Type 2 diabetes mellitus with diabetic chronic kidney disease; K21.9 Gastro-esophageal reflux disease without esophagitis; K44.9 Diaphragmatic hernia without obstruction or gangrene; E11.319 Type 2 diabetes mellitus with unspecified diabetic retinopathy without macular edema; E11.40 Type 2 diabetes mellitus with diabetic neuropathy, unspecified; E11.51 Type 2 diabetes mellitus with diabetic peripheral angiopathy without gangrene; I35.0 Nonrheumatic aortic (valve) stenosis; E78.2 Mixed hyperlipidemia; Z99.2 Dependence on renal dialysis; I69.322 Dysarthria following cerebral infarction; Z79.01 Long term (current) use of anticoagulants; Z79.4 Long term (current) use of insulin; Z79.82 Long term (current) use of aspirin; Z87.891 Personal history of nicotine dependence; Z95.2 Presence of prosthetic heart valve
CPT/HCPCS: 36415; 36430; 36600; 71046; 77001; 80053; 80069; 80074; 81001; 82088; 82728; 82805; 82948; 83540; 83550; 83880; 84244; 85014; 85018; 85025; 85027; 85610; 85730; 86706; 86850; 86900; 86901; 86923; 93005; 94640; 94762; 96374; 96375; 96376; 99285; A9270; C1750; G0257; G0378; J0360; J1644; J1756; J1815; J1940; J2250; J2704; J3010; J7030; J7040; P9016; Q5106

== ENCOUNTER 2021-03-23 07:28 | Outpatient (RCR) | payer OTHER, SELFPAY ==
[2021-01-18 12:50] LABS: INR 3.7; Prothrombin Time 37.4 Seconds (11.1-14.7)
[2021-01-28 07:46] LABS: INR 3.4; Prothrombin Time 34.8 Seconds (11.1-14.7)
[2021-02-11 11:09] LABS: Prothrombin Time 46.5 Seconds (11.1-14.7)
[2021-02-15 08:23] LABS: INR 2.6; Prothrombin Time 28.3 Seconds (11.1-14.7)
[2021-02-23 15:08] LABS: INR 1.2; Prothrombin Time 15.4 Seconds (11.1-14.7)
[2021-03-05 09:33] LABS: INR 1.6; Prothrombin Time 19.2 Seconds (11.1-14.7)
[2021-03-15 10:11] LABS: INR 4.4; Prothrombin Time 42.2 Seconds (11.1-14.7)
[2021-03-23 08:16] LABS: INR 3.1; Prothrombin Time 32.2 Seconds (11.1-14.7)
== END 2021-04-18 23:59 | disposition home or self-care (01) ==
LOC: ANHLAB 07:28
PROVIDERS: PCP Family Medicine; Visit Provider Internal Medicine Cardiovascular Disease
DX: Z51.81 Encounter for therapeutic drug level monitoring (principal); I63.9 Cerebral infarction, unspecified; Z95.2 Presence of prosthetic heart valve; Z79.01 Long term (current) use of anticoagulants
CPT/HCPCS: 36415; 85610

== ENCOUNTER → 2021-03-29 09:57 | Outpatient (CLI) | payer OTHER, SELFPAY ==
--- NOTE | ~2021-03-29 | CT_ITS ---
EXAMINATION: CT abdomen pelvis wo con DATE: 03/29/2021 10:16 INDICATION: Unspecified abdominal pain TECHNIQUE: Computed tomography (CT) of the abdomen and pelvis was performed without intravenous contr ast. The dose-length product was 1149.21 mGy-cm. Automated exposure control and iterative reconstruct ion technique were employed. COMPARISON: CT dated 11/24/2015 FINDINGS: Lung bases are unremarkable. Heart size is normal. No significant pleural or pericardial ef fusion. Calcified granuloma right lower lobe. The liver, spleen, pancreas, adrenal glands and kidneys are unremarkable. Gallbladder is present. Nor mal appendix. Colonic diverticulosis without evidence for diverticulitis. No lymphadenopathy. No free air or free fluid. There is osteoarthritis of the hips. Prostate gland is mildly prominent. No focal lytic or blastic lesions. There are median sternotomy wires. There are residual epicardial pacing le ads. IMPRESSION: 1. No acute abdominal abnormality. Reviewed, dictated and finalized at location B.
== END ==
PROVIDERS: PCP Family Medicine; Visit Provider Physician Assistant
DX: R10.9 Unspecified abdominal pain (principal)
CPT/HCPCS: 74176

== ENCOUNTER 2021-04-22 19:40 | Emergency (ER) | payer OTHER, SELFPAY ==
[2021-04-22 19:49] VITALS: BP 210/106; RESP 18; TEMP 36.7; O2SAT 100
--- NOTE | 2021-04-22 20:09 | ED.GENADULT ---
HPI - General Adult General Chief complaint: Unspecified Stated complaint: unspecified Time Seen by Provider: 04/22/21 19:55 Source: patient Mode of arrival: ambulatory Limitations: no limitations History of Present Illness HPI narrative: Patient is a 55-year-old male complaining of bleeding through his peritoneal dialysis port that was placed today at [facility] by Dr. Tillman. Patient denies any abdominal pain, nausea, vomiting, fever or chills. Related Data Home Medications Medication Instructions Recorded Confirmed sevelamer carbonate 800 mg tablet 1,600 mg PO BID 10/02/20 04/07/21 aspirin 81 mg chewable tablet 81 mg PO DAILY 10/06/20 04/07/21 cholecalciferol (vitamin D3) 50 50 mcg PO DAILY 10/06/20 04/07/21 mcg (2,000 unit) capsule insulin glargine 100 unit/mL (3 18 unit SUBCUT DAILY ml 10/06/20 04/07/21 mL) subcutaneous pen venlafaxine 100 mg tablet 75 mg PO BID tablet 10/06/20 04/07/21 sodium bicarbonate 650 mg PO BID 02/15/21 04/07/21 warfarin See Rx Instructions .ROUTE .COMPLEX 02/15/21 04/07/21 calcium acetate(phosphat bind) mg 04/22/21 Allergies Allergy/AdvReac Type Severity Reaction Status Date / Time No Known Allergies Allergy Verified 04/22/21 19:41 Review of Systems Review of Systems: All systems reviewed & are unremarkable except as noted in HPI and below PMFSH Past Medical History Medical History Arthritis Bicuspid aortic valve Severe aortic stenosis status post bioprosthetic aortic valve replacement. Cerebrovascular accident (~09/21/20) Thought to be embolic in nature, on long-term anticoagulation. Residual dysarthria. 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 Required temporary dialysis for a few months in spring 2019. Combined systolic and diastolic congestive heart failure Echocardiogram dated 11/03/2020 showed mildly enlarged left ventricular chamber with normal left ventricular systolic function and ejection fraction of 55 to 60% (as low as 35% on previous echos), moderate increased LV wall thickness, grade 3 diastolic dysfunction, and mild mitral and tricuspid valve regurgitation. Diabetic foot ulcer Dialysis patient Essential hypertension Finger fracture Former smoker 50 pack year smoking history, quit in 1987. Gastroesophageal reflux disease Hiatal hernia History of hemodialysis History of acute kidney injury on chronic kidney disease requiring hemodialysis in 2019. He has had a right IJ temporary dialysis catheter placed in 01/2020 and then a tunneled dialysis catheter in 02/2020, which was removed in 05/2020. History of osteomyelitis Impingement syndrome of left shoulder Insulin dependent type 2 diabetes mellitus Complicated by nephropathy, neuropathy, and retinopathy. Mixed hyperlipidemia Peripheral vascular disease Pneumonia Surgical History Surgical History Amputation of left great toe (~2019) Secondary to osteomyelitis. History of aortic valve replacement (~07/24/20) 25 mm Inspiris bioprosthetic valve per Dr. Nam Daniels at [facility]. History of carpal tunnel release History of coronary artery bypass graft x 1 (~07/24/20) Saphenous vein graft to obtuse marginal per Dr. Nam Daniels at [facility]. History of tonsillectomy Family History Family History Mother Family history of arthritis Family history of diabetes mellitus in first degree relative Family history of malignant neoplasm of breast in first degree relative Family history of coronary artery disease Alive and well Hypertension Father Malignant neoplasm of prostate Hypertension Sibling Family history of diabetes mellitus in first degree relative Sibling Family history of diabetes mellitus i
[2021-04-22 21:35] VITALS: BP 218/109; PULSE 89; RESP 18; O2SAT 100
== END 2021-04-22 21:46 | disposition left against medical advice (07) ==
PROVIDERS: Emergency Provider Emergency Medicine; PCP Family Medicine
DX: T82.838A Hemorrhage due to vascular prosthetic devices, implants and grafts, initial encounter (principal); E11.22 Type 2 diabetes mellitus with diabetic chronic kidney disease; I13.2 Hypertensive heart and chronic kidney disease with heart failure and with stage 5 chronic kidney disease, or end stage renal disease; N18.6 End stage renal disease; I50.40 Unspecified combined systolic (congestive) and diastolic (congestive) heart failure; Z99.2 Dependence on renal dialysis; D64.9 Anemia, unspecified; K21.9 Gastro-esophageal reflux disease without esophagitis; I69.922 Dysarthria following unspecified cerebrovascular disease; I35.0 Nonrheumatic aortic (valve) stenosis; K44.9 Diaphragmatic hernia without obstruction or gangrene; M19.90 Unspecified osteoarthritis, unspecified site; M86.9 Osteomyelitis, unspecified; E11.21 Type 2 diabetes mellitus with diabetic nephropathy; E11.319 Type 2 diabetes mellitus with unspecified diabetic retinopathy without macular edema; E11.40 Type 2 diabetes mellitus with diabetic neuropathy, unspecified; E78.2 Mixed hyperlipidemia; Z87.01 Personal history of pneumonia (recurrent); E11.51 Type 2 diabetes mellitus with diabetic peripheral angiopathy without gangrene; Z87.891 Personal history of nicotine dependence; Z79.82 Long term (current) use of aspirin; Z79.01 Long term (current) use of anticoagulants; Z79.4 Long term (current) use of insulin; Z89.412 Acquired absence of left great toe; Z95.2 Presence of prosthetic heart valve; Z95.1 Presence of aortocoronary bypass graft
CPT/HCPCS: 99282

== ENCOUNTER 2021-05-04 12:33 | Outpatient (CLI) | payer OTHER, SELFPAY ==
[2021-05-04 13:00] LABS: Hematocrit 32.4 % (42.0-52.0); Hemoglobin 10.4 g/dL (14.0-18.0); Mean Corpuscular HGB Conc 32.1 g/dl (32-36); Mean Corpuscular Hemoglobin 26.5 pg (26-34); Mean Corpuscular Volume 82.7 fl (80-100); Mean Platelet Volume 9.3 fl (7.4-10.4); Platelet Count Result 224 k/mm3 (150-375); Red Blood Count 3.92 M/mm3 (4.6-6.20); Red Cell Distribution Width 17.8 % (11.5-14.5); White Blood Count 8.2 K/mm3 (4.5-10.0)
[2021-05-04 13:14] LABS: Anion Gap 14 mmol/L (8-16); Blood Urea Nitrogen 42 mg/dL (9-20); Calcium 8.7 mg/dL (8.4-10.2); Carbon Dioxide 23 mmol/L (22-30); Chloride 100 mmol/L (98-107); Estimated Glomerular Filt Rate 10; Glucose 154 mg/dL (75-110); Sodium 137 mmol/L (137-145)
== END 2021-05-04 12:34 | disposition home or self-care (01) ==
PROVIDERS: PCP Family Medicine
DX: N18.6 End stage renal disease (principal); Z99.2 Dependence on renal dialysis; E11.22 Type 2 diabetes mellitus with diabetic chronic kidney disease; Z79.4 Long term (current) use of insulin; I25.708 Atherosclerosis of coronary artery bypass graft(s), unspecified, with other forms of angina pectoris; E11.65 Type 2 diabetes mellitus with hyperglycemia
CPT/HCPCS: 36415; 80048; 85027

== ENCOUNTER 2021-05-19 07:41 | Outpatient (RCR) | payer OTHER, SELFPAY ==
[2021-04-07 09:30] VITALS: BMI 30.9
== END 2021-06-21 09:33 | disposition home or self-care (01) ==
LOC: ANHWOC 07:41
PROVIDERS: PCP Family Medicine; Visit Provider Podiatrist Foot & Ankle Surgery
DX: E11.621 Type 2 diabetes mellitus with foot ulcer (principal); L97.429 Non-pressure chronic ulcer of left heel and midfoot with unspecified severity
CPT/HCPCS: 29445; 99213; A9270; G0463

== ENCOUNTER 2021-09-03 10:07 | Emergency (ER) | payer OTHER, SELFPAY ==
--- NOTE | ~2021-09-03 | XR_ITS ---
XR ankle LT min 3V 09/03/2021 10:35 Indication: Left ankle pain and swelling after recent fall Procedure: 4 views left ankle Comparison: 04/10/2019 Findings: There is an oblique distal fibular fracture extending inferiorly to the level of the ankle mortise. There is approximately one cortical bone width lateral and posterior displacement. Soft tiss ue swelling adjacent to the fracture. Small degenerative calcaneal enthesophyte. There are peripheral arterial calcifications. Impression: 1: Mildly displaced oblique fracture distal fibular metadiaphysis. Reviewed, dictated and finalized at location A. IOPULMONARY TECHNOLOGIST Impression: 1: Mildly displaced oblique fracture distal fibular metadiaphysis.
[2021-09-03 10:22] VITALS: BP 112/77; PULSE 93; RESP 18; TEMP 36; O2SAT 100
--- NOTE | 2021-09-03 10:26 | ED.LOWEXIN ---
HPI - Extremity Injury (Lower) General Chief Complaint: Extremity Injury, Lower Stated Complaint: lt ankle injury Time Seen by Provider: 09/03/21 10:27 History of Present Illness HPI Narrative: Pankaj Bautista is a 56 yo male wirg a PMH of CKD5 on peritoneal dialysis, diabetes, neuropathy, hypotension, stroke, chronic anticoagulation, who comes to express care for a L ankle injury that occurred when he had syncopal episode a few days ago, rolled his left ankle. He has peripheral neuropathy so that its not painful for him to walk on but is clearly more swollen than the right both medial and laterally there is slight ecchymosis to the medial side of the ankle; he states he feels somewhat unstable. Related Data Home Medications Medication Instructions Recorded Confirmed sevelamer carbonate 800 mg tablet 1,600 mg PO BID 10/02/20 08/16/21 aspirin 81 mg chewable tablet 81 mg PO DAILY 10/06/20 08/16/21 venlafaxine 100 mg tablet 75 mg PO BID tablet 10/06/20 08/16/21 sodium bicarbonate 650 mg PO BID 02/15/21 08/16/21 gabapentin 300 mg capsule 300 mg PO BID cap 04/29/21 08/16/21 atorvastatin 80 mg PO DAILY 09/03/21 09/03/21 calcitriol 0.5 mcg PO DAILY 09/03/21 09/03/21 carvedilol 12.5 mg PO BID 09/03/21 09/03/21 sitagliptin [Januvia] 25 mg PO DAILY 09/03/21 09/03/21 venlafaxine 150 mg PO QPM 09/03/21 09/03/21 Allergies Allergy/AdvReac Type Severity Reaction Status Date / Time No Known Allergies Allergy Verified 09/03/21 10:31 Review of Systems Review of Systems: CONSTITUTIONAL: Denies fever, chills, sweats. EYES: Denies visual changes, redness, discharge. ENT: Denies rhinorrhea, congestion, sore throat, otalgia. CARDIOVASCULAR: Denies chest pain, palpitations, edema. RESPIRATORY: Denies dyspnea, wheezing, cough GASTROINTESTINAL: Denies abdominal pain, nausea, vomiting, diarrhea. GENITOURINARY: Denies dysuria, hematuria, abnormal discharge SKIN: Denies rash or itching. NEUROLOGIC: Denies numbness, or focal weakness. PSYCHIATRIC: Denies anxiety or depression. Left ankle swelling and medial ecchymosis PMFSH Past Medical History Medical History Arthritis Bicuspid aortic valve Severe aortic stenosis status post bioprosthetic aortic valve replacement. Cerebrovascular accident (~09/21/20) Thought to be embolic in nature, on long-term anticoagulation. Residual dysarthria. 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 Required temporary dialysis for a few months in spring 2019. Combined systolic and diastolic congestive heart failure Echocardiogram dated 11/03/2020 showed mildly enlarged left ventricular chamber with normal left ventricular systolic function and ejection fraction of 55 to 60% (as low as 35% on previous echos), moderate increased LV wall thickness, grade 3 diastolic dysfunction, and mild mitral and tricuspid valve regurgitation. Diabetic foot ulcer Dialysis patient Essential hypertension Finger fracture Former smoker 50 pack year smoking history, quit in 1987. Gastroesophageal reflux disease Hiatal hernia History of hemodialysis History of acute kidney injury on chronic kidney disease requiring hemodialysis in 2019. He has had a right IJ temporary dialysis catheter placed in 01/2020 and then a tunneled dialysis catheter in 02/2020, which was removed in 05/2020. History of osteomyelitis Impingement syndrome of left shoulder Insulin dependent type 2 diabetes mellitus Complicated by nephropathy, neuropathy, and retinopathy. Mixed hyperlipidemia Peripheral vascular disease Pneumonia Surgical History Surgical History Amputation of left great toe (~2019) Secondary to osteomyelitis. History of aortic valve replacement (~07/24/20) 25 mm Inspiris bioprosthetic valve per D
== END 2021-09-03 11:20 | disposition home or self-care (01) ==
PROVIDERS: Emergency Provider Nurse Practitioner; PCP Family Medicine
DX: S82.832A Other fracture of upper and lower end of left fibula, initial encounter for closed fracture (principal); W19.XXXA Unspecified fall, initial encounter; M19.90 Unspecified osteoarthritis, unspecified site; Z86.73 Personal history of transient ischemic attack (TIA), and cerebral infarction without residual deficits; Z79.01 Long term (current) use of anticoagulants; I13.2 Hypertensive heart and chronic kidney disease with heart failure and with stage 5 chronic kidney disease, or end stage renal disease; E11.22 Type 2 diabetes mellitus with diabetic chronic kidney disease; N18.6 End stage renal disease; I50.40 Unspecified combined systolic (congestive) and diastolic (congestive) heart failure; Z99.2 Dependence on renal dialysis; D64.9 Anemia, unspecified; Z87.891 Personal history of nicotine dependence; E78.2 Mixed hyperlipidemia; I73.9 Peripheral vascular disease, unspecified; Z95.2 Presence of prosthetic heart valve; Z95.1 Presence of aortocoronary bypass graft
CPT/HCPCS: 29515; 73610; 99214; G0463

== ENCOUNTER 2021-10-20 10:02 | Emergency (ER) | payer OTHER, SELFPAY ==
[2021-10-20 10:20] VITALS: BP 103/79; PULSE 91; RESP 18; TEMP 36.2; O2SAT 100
--- NOTE | 2021-10-20 10:36 | ED.GENADULT ---
HPI - General Adult General Chief complaint: Unspecified Stated complaint: nose injury Time Seen by Provider: 10/20/21 10:04 Source: patient and family Mode of arrival: wheelchair Limitations: no limitations History of Present Illness HPI narrative: 56-year-old male presents to [facility] with complaints of pain, swelling and abrasion to the bridge of his nose. Patient reports that 1 hour ago, he was getting out of his truck when he became lightheaded and had a brief syncopal episode hitting his face on the ground. Patient has an extensive medical history including chronic kidney failure and is completing dialysis, heart disease, chronic anemia and has seen neurology in the past. Patient reports that he has had intermittent syncopal episodes for the past year and a half. Patient denies dizziness or blurred vision. Onset (ago): hour(s) (1) Location: face Pain Consistency: constant Associated symptoms: denies other symptoms Treatments prior to arrival: none Related Data Home Medications Medication Instructions Recorded Confirmed aspirin 81 mg chewable tablet 81 mg PO DAILY 10/06/20 10/20/21 amlodipine 10 mg DAILY 10/20/21 10/20/21 atorvastatin 80 mg DAILY 10/20/21 10/20/21 bumetanide 2 mg DAILY 10/20/21 10/20/21 calcitriol 0.5 mcg DAILY 10/20/21 10/20/21 carvedilol 12.5 mg DAILY 10/20/21 10/20/21 famotidine 40 mg DAILY 10/20/21 10/20/21 gabapentin 300 mg TID 10/20/21 10/20/21 lisinopril 20 mg BID 10/20/21 10/20/21 sitagliptin [Januvia] 25 mg DAILY 10/20/21 10/20/21 venlafaxine 100 mg DAILY 10/20/21 10/20/21 Allergies Allergy/AdvReac Type Severity Reaction Status Date / Time No Known Allergies Allergy Verified 10/20/21 10:25 Review of Systems Constitutional: Constitutional: Denies fatigue, Denies fever(s) and Denies headache(s) Eyes: Eyes: Denies blurry vision ENT: Comments: Abrasion, pain and swelling to bridge of nose Cardiovascular: Cardiovascular: Denies chest pain and Reports syncope Respiratory: Respiratory: Denies cough Neurologic: Denies confusion, Reports syncope and Denies memory loss [facility] Past Medical History Medical History Arthritis Bicuspid aortic valve Severe aortic stenosis status post bioprosthetic aortic valve replacement. Cerebrovascular accident (~09/21/20) Thought to be embolic in nature, on long-term anticoagulation. Residual dysarthria. 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 Required temporary dialysis for a few months in spring 2019. Combined systolic and diastolic congestive heart failure Echocardiogram dated 11/03/2020 showed mildly enlarged left ventricular chamber with normal left ventricular systolic function and ejection fraction of 55 to 60% (as low as 35% on previous echos), moderate increased LV wall thickness, grade 3 diastolic dysfunction, and mild mitral and tricuspid valve regurgitation. Diabetic foot ulcer Dialysis patient Essential hypertension Finger fracture Former smoker 50 pack year smoking history, quit in 1987. Gastroesophageal reflux disease Hiatal hernia History of hemodialysis History of acute kidney injury on chronic kidney disease requiring hemodialysis in 2019. He has had a right IJ temporary dialysis catheter placed in 01/2020 and then a tunneled dialysis catheter in 02/2020, which was removed in 05/2020. History of osteomyelitis Impingement syndrome of left shoulder Insulin dependent type 2 diabetes mellitus Complicated by nephropathy, neuropathy, and retinopathy. Mixed hyperlipidemia Peripheral vascular disease Pneumonia Surgical History Surgical History Amputation of left great toe (~2019) Secondary to osteomyelitis. History of aortic valve replacement (~07/24/20) 25 mm Inspiris bioprosthet
== END 2021-10-20 10:42 | disposition short-term general hospital (02) ==
PROVIDERS: Emergency Provider Nurse Practitioner Family; PCP Family Medicine
DX: J34.89 Other specified disorders of nose and nasal sinuses (principal); R55 Syncope and collapse; Z87.891 Personal history of nicotine dependence; Z86.73 Personal history of transient ischemic attack (TIA), and cerebral infarction without residual deficits; Z79.01 Long term (current) use of anticoagulants; I13.0 Hypertensive heart and chronic kidney disease with heart failure and stage 1 through stage 4 chronic kidney disease, or unspecified chronic kidney disease; E11.22 Type 2 diabetes mellitus with diabetic chronic kidney disease; N18.9 Chronic kidney disease, unspecified; I50.40 Unspecified combined systolic (congestive) and diastolic (congestive) heart failure; Z79.84 Long term (current) use of oral hypoglycemic drugs; E78.2 Mixed hyperlipidemia; I73.9 Peripheral vascular disease, unspecified; Z89.412 Acquired absence of left great toe; Z95.2 Presence of prosthetic heart valve; Z95.1 Presence of aortocoronary bypass graft
CPT/HCPCS: 99212; G0463

== ENCOUNTER 2021-10-20 11:02 | Emergency (ER) | payer OTHER, SELFPAY ==
[2021-10-20] VITALS (7 sets, daily range): BP systolic 75–160; BP diastolic 58–100; PULSE 37–89; RESP 16–22; O2SAT 99–100
--- NOTE | ~2021-10-20 | CT_ITS ---
EXAMINATION: CT brain wo con DATE: 10/20/2021 13:53 INDICATION: Syncope. TECHNIQUE: Computed tomography (CT) of the head was performed without intravenous contrast. The mA wa s adjusted according to patient size. Iterative reconstruction technique was employed. The dose-lengt h product was 605.33 mGy-cm. COMPARISON: Head CT 10/07/2020 FINDINGS: There is a small old infarct in right cerebellum. There is a small old infarct in left cere bellum. There is an old infarct in right occipital lobe. There are old infarcts in the bilateral fron ace lobes and left frontoparietal region. There is no intracranial hemorrhage, acute infarction, or a bnormal intracranial mass lesion. The ventricles are normal in size. The orbits are normal. There is mucosal thickening in the paranasal sinuses. There is dependent fluid in left maxillary sinus. The ma stoid air cells are normal. IMPRESSION: 1. Multiple old infarcts in the brain. Reviewed, dictated and finalized at location D. K [employer]
--- NOTE | 2021-10-20 11:56 | ECG_ITS ---
Measurements Intervals [place] Rate: 82 P: -10 TN: 151 QRS: -3 QRSD: 101 T: 102 QT: 401 QTc: 471 Interpretive Statements SINUS RHYTHM ATRIAL PREMATURE COMPLEX LEFT VENTRICULAR HYPERTROPHY WITH ST-T CHANGE CONSIDER INFERIOR INFARCT, AGE INDETERMINATE BASELINE WANDER- I, III, AVR, AVL, AVF ABNORMAL ECG Electronically Signed On 10-20-2021 13:36:26 [employer] by Jairo French D.O.
[2021-10-20 12:14] LABS: Basophils Absolute Auto 0.1 K/mm3 (0.0-0.1); Eosinophils Absolute Auto 0.1 K/mm3 (0-0.3); Eosinophils Percent Auto 1.2 % (0-4.4); Hematocrit 38.7 % (42.0-52.0); Hemoglobin 12.5 g/dL (14.0-18.0); Immature Granulocyte Absolute 0.03 K/mm3 (0.00-0.031); Immature Granulocyte Percent A 0.4 % (0-0.5); Lymphocytes Absolute Auto 1.77 K/mm3 (0.9-3.2); Lymphocytes Percent Auto 21.6 % (18.3-44.2); Mean Corpuscular HGB Conc 32.3 g/dl (32-36); Mean Corpuscular Hemoglobin 28.5 pg (26-34); Mean Corpuscular Volume 88.4 fl (80-100); Mean Platelet Volume 9.1 fl (7.4-10.4); Monocytes Absolute Auto 0.8 K/mm3 (0.1-0.6); Monocytes Percent Auto 9.4 % (2.6-8.5); Neutrophils Absolute Auto 5.5 K/mm3 (1.3-6.7); Neutrophils Percent Auto 66.4 % (45.5-73.1); Platelet Count Result 185 k/mm3 (150-375); Red Blood Count 4.38 M/mm3 (4.6-6.20); Red Cell Distribution Width 14.8 % (11.5-14.5); White Blood Count 8.2 K/mm3 (4.5-10.0)
[2021-10-20 12:24] LABS: Alanine Aminotransferase 36 U/L (4-50); Albumin Level 3.8 g/dL (3.5-5.1); Alkaline Phosphatase 219 U/L (38-126); Anion Gap 16 mmol/L (8-16); Aspartate Amino Transferase 26 U/L (17-59); Bilirubin,Total 0.5 mg/dL (0.2-1.3); Blood Urea Nitrogen 46 mg/dL (9-20); Carbon Dioxide 24 mmol/L (22-30); Chloride 100 mmol/L (98-107); Estimated CRCL calculation 10 ml/min; Estimated Glomerular Filt Rate 6; Glucose 131 mg/dL (65-110); Potassium 3.5 mmol/L (3.4-5.0); Sodium 140 mmol/L (137-145)
--- NOTE | 2021-10-20 14:24 | ED.SYNCOPE ---
HPI - Syncope General Chief Complaint: Syncope Stated Complaint: NEAR SYNCOPE FACIAL INJURY Time Seen by Provider: 10/20/21 12:01 Source: patient Mode of arrival: ambulatory Limitations: no limitations History of Present Illness HPI narrative: 56-year-old with a history of hypertension, diabetes, peripheral neuropathy, ESRD on peritoneal dialysis here with complaints of syncopal episode. 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 He states that he hit his face. Denies loss of consciousness. Patient states that he had near syncopal and syncopal episodes several times. He states that he had fractured his foot 6 weeks ago. Patient states that he sees Dr. Bertrand and he has mentioned to him and they are trying to adjust his blood pressure medications. He presently denies any chest pain or shortness of breath, nausea or vomiting or abdominal pain. Patient upon arrival was hypotensive. MD complaint: almost passed out Onset (ago): hour(s) (2) -: minutes(s) Prodromal symptoms: none Context: standing up Injuries sustained associated with event: face Current symptoms: none History: other (ortho static hypotension) Treatments prior to arrival: none Related Data Home Medications Medication Instructions Recorded Confirmed aspirin 81 mg chewable tablet 81 mg PO DAILY 10/06/20 10/20/21 amlodipine 10 mg DAILY 10/20/21 10/20/21 atorvastatin 80 mg DAILY 10/20/21 10/20/21 bumetanide 2 mg DAILY 10/20/21 10/20/21 calcitriol 0.5 mcg DAILY 10/20/21 10/20/21 carvedilol 12.5 mg DAILY 10/20/21 10/20/21 famotidine 40 mg DAILY 10/20/21 10/20/21 gabapentin 300 mg TID 10/20/21 10/20/21 lisinopril 20 mg BID 10/20/21 10/20/21 sitagliptin [Januvia] 25 mg DAILY 10/20/21 10/20/21 venlafaxine 100 mg DAILY 10/20/21 10/20/21 Allergies Allergy/AdvReac Type Severity Reaction Status Date / Time No Known Allergies Allergy Verified 10/20/21 10:25 Review of Systems Review of Systems: All systems reviewed & are unremarkable except as noted in HPI and below Constitutional: Constitutional: Reports no additional constitutional complaints Eyes: Eyes: Reports no additional eye complaints ENT: Reports system reviewed and no additional complaints, except as documented Cardiovascular: Cardiovascular: Reports no additional cardiovascular complaints Respiratory: Respiratory: Reports no additional respiratory complaints Gastrointestinal: Gastrointestinal: Reports no additional gastrointestinal complaints Genitourinary: Genitourinary: Reports no additional male genitourinary complaints Musculoskeletal: Musculoskeletal: Reports no additional musculoskeletal complaints Neurologic: Reports system reviewed and no additional complaints, except as documented Endocrine: Endocrine: Reports no additional endocrine complaints Hematologic/Lymphatic: Hematologic/Lymphatic: Reports no additional hematologic/lymphatic complaints PMFSH Past Medical History Medical History Arthritis Bicuspid aortic valve Severe aortic stenosis status post bioprosthetic aortic valve replacement. Cerebrovascular accident (~09/21/20) Thought to be embolic in nature, on long-term anticoagulation. Residual dysarthria. 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 Required temporary dialysis for a few months in spring 2019. Combined systolic and diastolic congestive heart failure Echocardiogram dated 11/03/2020 showed mildly enlarged left ventricular chamber with normal left ventricular systolic function and ejection fraction of 55 to 60% (as low as 35% on previous echos), moderate increased LV wall thickness, grade 3 diastolic dysfunction, and mild mitral
== END 2021-10-20 15:10 | disposition home or self-care (01) ==
PROVIDERS: Emergency Medicine; Emergency Provider Family Medicine; PCP Family Medicine
DX: I95.1 Orthostatic hypotension (principal); S00.33XA Contusion of nose, initial encounter; E11.22 Type 2 diabetes mellitus with diabetic chronic kidney disease; I13.2 Hypertensive heart and chronic kidney disease with heart failure and with stage 5 chronic kidney disease, or end stage renal disease; I50.40 Unspecified combined systolic (congestive) and diastolic (congestive) heart failure; N18.6 End stage renal disease; Z99.2 Dependence on renal dialysis; E11.51 Type 2 diabetes mellitus with diabetic peripheral angiopathy without gangrene; E11.21 Type 2 diabetes mellitus with diabetic nephropathy; E11.40 Type 2 diabetes mellitus with diabetic neuropathy, unspecified; E11.319 Type 2 diabetes mellitus with unspecified diabetic retinopathy without macular edema; K21.9 Gastro-esophageal reflux disease without esophagitis; D64.9 Anemia, unspecified; I69.922 Dysarthria following unspecified cerebrovascular disease; Z95.2 Presence of prosthetic heart valve; M19.90 Unspecified osteoarthritis, unspecified site; Z89.412 Acquired absence of left great toe; Z87.891 Personal history of nicotine dependence; Z95.1 Presence of aortocoronary bypass graft; Z79.82 Long term (current) use of aspirin; Z79.84 Long term (current) use of oral hypoglycemic drugs; I49.1 Atrial premature depolarization; R94.31 Abnormal electrocardiogram [ECG] [EKG]; I51.7 Cardiomegaly; W18.39XA Other fall on same level, initial encounter
CPT/HCPCS: 36415; 70450; 80053; 82533; 85025; 93005; 99284

== ENCOUNTER → 2021-12-13 10:47 | Outpatient (CLI) | payer OTHER, SELFPAY ==
--- NOTE | ~2021-12-13 | XR_ITS ---
EXAMINATION: XR abdomen obstructive series DATE: 12/13/2021 11:08 INDICATION: Obstruction and peritoneal dialysis catheter TECHNIQUE: Upright and supine views of the abdomen were obtained. COMPARISON: None. FINDINGS: A peritoneal dialysis catheter coils in the pelvis. There is no free intraperitoneal gas un kira the hemidiaphragms. There are no dilated loops of bowel. There is moderate osteoarthritis of the hips. Calcified atherosclerosis is noted. There are minimal opacities of the lung bases. Changes of c ardiac valve replacement are noted. IMPRESSION: 1. Peritoneal dialysis catheter coiling in the pelvis. 2. Free peritoneal gas in the abdomen likely relates to dialysis catheter however, recommend clinical correlation for abdominal pain 3. Minimal opacities of the lung bases, consistent with atelectasis versus pneumonia versus pulmonary edema. Reviewed, dictated and finalized at location F. L ENGINEERING INTERN IMPRESSION: 1. Peritoneal dialysis catheter coiling in the pelvis. 2. Free peritoneal gas in the abdomen likely relates to dialysis catheter howev er, recommend clinical correlation for abdominal pain 3. Minimal opacities of the lung bases, consistent with atelectasis versus pneu monia versus pulmonary edema.
== END ==
PROVIDERS: Visit Provider Internal Medicine Nephrology
DX: T85.691A Other mechanical complication of intraperitoneal dialysis catheter, initial encounter (principal)
CPT/HCPCS: 74019

== ENCOUNTER 2022-03-02 11:20 | Observation (INO) | payer OTHER, MEDICARE, SELFPAY ==
[2022-03-02] VITALS (35 sets, daily range): BP systolic 87–210; BP diastolic 62–138; PULSE 80–113; RESP 0–32; TEMP 36.5–37.4; O2SAT 88–100; BMI 29.7
--- NOTE | ~2022-03-02 | CT_ITS ---
EXAMINATION: CT brain wo con DATE: 03/03/2022 13:05 INDICATION: Garbled speech and fever. TECHNIQUE: Computed tomography (CT) of the head was performed without intravenous contrast. Sagittal and coronal reconstructions were performed. The mA was adjusted according to patient size. Iterative reconstruction technique was employed. The dose-length product was 605.33 mGy-cm. COMPARISON: head CT dated 10/20/2021 FINDINGS: Again seen are small regions of encephalomalacia consistent with chronic infarcts at the right cerebe llar hemisphere, right occipital lobe, bilateral frontal lobes and left frontoparietal region. No acu te intracranial hemorrhage, acute infarction or abnormal extra axial fluid collection. Ventricles are normal and symmetric. No mass/mass effect. Mucous retention cyst in the left maxillary sinus. The or bits and mastoid air cells are normal. IMPRESSION: 1. Stable appearance of multiple small old infarcts in the brain. No acute intracranial process. Reviewed, dictated and finalized at location A. IMPRESSION: 1. Stable appearance of multiple small old infarcts in the brain. No acute intr acranial process.
--- NOTE | ~2022-03-02 | XR_ITS ---
EXAMINATION: XR chest 1V portable INDICATION: Fever and shortness of breath TECHNIQUE: Portable AP chest at 0939 hours COMPARISON: 03/02/2022 FINDINGS: Bilateral interstitial opacities persist but have improved. There is no pleural effusion or pneumothorax. There are changes of cardiac valve surgery. Cardiomegaly is noted. IMPRESSION: 1. Diffuse lung disease with interval improvement, consistent with pneumonia and/or pulmonary edema. 2. Cardiomegaly. Reviewed, dictated and finalized at location A. IMPRESSION: 1. Diffuse lung disease with interval improvement, consistent with pneumonia an d/or pulmonary edema. 2. Cardiomegaly.
--- NOTE | ~2022-03-02 | XR_ITS ---
EXAMINATION: XR chest 1V portable INDICATION: Fever and weakness TECHNIQUE: Portable AP chest at 1221 hours COMPARISON: 02/16/2021 FINDINGS: There are diffuse bilateral interstitial opacities, right greater than left. Cardiomegaly i s noted. There is no pleural effusion or pneumothorax. IMPRESSION: 1. Diffuse interstitial opacities, right greater than left, consistent with pneumonia or possibly asy mmetric pulmonary edema. 2. Cardiomegaly. Reviewed, dictated and finalized at location A. IMPRESSION: 1. Diffuse interstitial opacities, right greater than left, consistent with pne umonia or possibly asymmetric pulmonary edema. 2. Cardiomegaly.
--- NOTE | 2022-03-02 11:38 | ECG_ITS ---
Measurements Intervals [place] Rate: 88 P: 5 NE: 150 QRS: 8 QRSD: 94 T: 107 QT: 418 QTc: 506 Interpretive Statements SINUS RHYTHM FREQUENT ATRIAL PREMATURE COMPLEXES LEFT VENTRICULAR HYPERTROPHY AND ST-T CHANGE ABNORMAL ECG Electronically Signed On 03-02-2022 12:44:39 CDT by Jairo French D.O.
[2022-03-02 11:53] LABS: Basophils Absolute Auto 0.1 K/mm3 (0.0-0.1); Basophils Percent Auto 0.8 % (0.2-1.2); Eosinophils Absolute Auto 0.1 K/mm3 (0-0.3); Hematocrit 28.8 % (42.0-52.0); Hemoglobin 9.1 g/dL (14.0-18.0); Immature Granulocyte Absolute 0.04 K/mm3 (0.00-0.031); Immature Granulocyte Percent A 0.5 % (0-0.5); Lymphocytes Absolute Auto 1.54 K/mm3 (0.9-3.2); Lymphocytes Percent Auto 19.8 % (18.3-44.2); Mean Corpuscular HGB Conc 31.6 g/dl (32-36); Mean Corpuscular Hemoglobin 28.9 pg (26-34); Mean Corpuscular Volume 91.4 fl (80-100); Mean Platelet Volume 10.2 fl (7.4-10.4); Monocytes Absolute Auto 1.2 K/mm3 (0.1-0.6); Monocytes Percent Auto 14.8 % (2.6-8.5); Neutrophils Absolute Auto 4.9 K/mm3 (1.3-6.7); Neutrophils Percent Auto 63.1 % (45.5-73.1); Platelet Count Result 163 k/mm3 (150-375); Red Blood Count 3.15 M/mm3 (4.6-6.20); Red Cell Distribution Width 14.9 % (11.5-14.5); White Blood Count 7.8 K/mm3 (4.5-10.0)
--- NOTE | 2022-03-02 12:00 | ED.FEVER ---
HPI - Fever General Chief Complaint: Fever Stated Complaint: FEVER Time Seen by Provider: 03/02/22 11:45 Source: patient and family Limitations: no limitations History of Present Illness HPI Narrative: 56 y/o male presents to the ER today for fever and generalized weakness. He has renal failure and does PD at home. He holds dialysate fluid through the day and drains at night. They went to [facility] this morning to see the dialysis nurse. They let her know that he had fever yesterday up to 101 and this morning of 100.3. She put some antibiotic in with is dialysate fluid this morning. When he was leaving [facility], he got lightheaded and almost fell so he was brought to the ER for evaluation. His blood pressure is running low today. He is not currently running a fever. Pt denies having any pain. He has had some nasal congestion and coughing at night. No vomiting or diarrhea. Denies chest pain. No headache. No shortness of breath. PMH significant for renal failure, HTN, hyperlipidemia. MD elicited complaint: fever and weakness Related Data Home Medications Medication Instructions Recorded Confirmed aspirin 81 mg chewable tablet 81 mg PO DAILY 10/06/20 02/28/22 bumetanide 2 mg DAILY 10/20/21 02/28/22 calcitriol 0.5 mcg DAILY 10/20/21 02/28/22 carvedilol 12.5 mg DAILY 10/20/21 02/28/22 famotidine 40 mg DAILY 10/20/21 02/28/22 gabapentin 300 mg TID 10/20/21 02/28/22 venlafaxine 100 mg DAILY 10/20/21 02/28/22 docusate sodium 100 mg capsule 100 mg PO DAILY 02/28/22 02/28/22 lisinopril 20 mg tablet 20 mg PO DAILY tablet 02/28/22 02/28/22 Allergies Allergy/AdvReac Type Severity Reaction Status Date / Time No Known Allergies Allergy Verified 03/02/22 11:39 Review of Systems Constitutional: Constitutional: Denies chills, Reports fatigue and Reports fever(s) Eyes: Eyes: Reports no additional eye complaints ENT: Denies dysphagia, Denies dizziness, Reports nasal congestion and Denies sore throat Cardiovascular: Cardiovascular: Denies chest pain and Denies radiating jaw, neck or arm pain Respiratory: Respiratory: Reports chest congestion, Reports cough and Denies dyspnea Gastrointestinal: Gastrointestinal: Denies abdominal pain, Denies constipation, Denies diarrhea, Denies nausea and Denies vomiting Musculoskeletal: Musculoskeletal: Denies back pain, Denies myalgias and Denies arthralgias Integumentary/Breasts: Skin/Breast: Denies rash Neurologic: Reports dizziness, Denies headache(s) and Reports weakness Psychiatric: Psychiatric: Denies anxiety and Denies depression Endocrine: Endocrine: Reports no additional endocrine complaints Hematologic/Lymphatic: Hematologic/Lymphatic: Reports no additional hematologic/lymphatic complaints Allergic/Immunologic: Allergic/Immunologic: Reports no additional allergic/immunologic complaints [facility] Past Medical History Medical History Arthritis Bicuspid aortic valve Severe aortic stenosis status post bioprosthetic aortic valve replacement. Cerebrovascular accident (~09/21/20) Thought to be embolic in nature, on long-term anticoagulation. Residual dysarthria. 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 Required temporary dialysis for a few months in spring 2019. Combined systolic and diastolic congestive heart failure Echocardiogram dated 11/03/2020 showed mildly enlarged left ventricular chamber with normal left ventricular systolic function and ejection fraction of 55 to 60% (as low as 35% on previous echos), moderate increased LV wall thickness, grade 3 diastolic dysfunction, and mild mitral and tricuspid valve regurgitation. Diabetic foot ulcer Dialysis patient Essential hypertension Finger fracture Former smoker 50 pack year smoking history, quit in 1987. Gastroesophageal reflux disease Hiatal herni
[2022-03-02 12:16] LABS: Alanine Aminotransferase 11 U/L (6-50); Albumin Level 2.8 g/dL (3.5-5.1); Alkaline Phosphatase 85 U/L (38-126); Anion Gap 8 mmol/L (8-16); Aspartate Amino Transferase 22 U/L (17-59); Bilirubin,Total 0.7 mg/dL (0.2-1.3); Blood Urea Nitrogen 38 mg/dL (9-20); Carbon Dioxide 24 mmol/L (22-30); Chloride 98 mmol/L (98-107); Estimated CRCL calculation 9 ml/min; Estimated Glomerular Filt Rate 7; Glucose 144 mg/dL (65-110); Potassium 3.3 mmol/L (3.4-5.0); Sodium 130 mmol/L (137-145)
[2022-03-02] MEDS: SODIUM CHLORIDE 0.9% IV 1,000 ML 500 ML IV CONT (12:16)
[2022-03-02 12:18] LABS: Lactic Acid Reflex 1.5 mmol/L (0.7-2.0)
[2022-03-02 12:20] LABS: INR 1.3; Partial Thromboplastin Time 24.4 SECONDS (22.3-36.8); Prothrombin Time 15.8 Seconds (11.1-14.7)
[2022-03-02 12:35] LABS: CRP 24.1 mg/dL (<1.0)
[2022-03-02 14:28] LABS: Influenza A QL RT-PCR Negative (Negative); Influenza B QL RT-PCR Negative (Negative); SARS-CoV-2 RNA PCR Negative
--- NOTE | 2022-03-02 16:39 | PM.IMHP ---
H&P: HPI History of Present Illness Date/Time: Patient was placed observation status for expected length of stay less than 23 hours for management, will plan to re-evaluate tomorrow for improvement. 03/02/22 16:39 Chief Complaint: Fever Narrative: Mr. Bautista is a 56-year-old gentleman who presented emergency room with complaints of fever. Patient states that he has a peritoneal dialysis patient. Patient states over the last 2 days he has had a fever with a T-max of 101?. Patient states he has taken Tylenol twice which has brought his fever down. Patient states that he went to his dialysis unit this morning to see the dialysis nurse and she placed antibiotic in his dialysate. Patient was then told to come to the emergency room for further evaluation. Patient states he has had a cough for approximately 2 days with occasional sputum production of dark yellow sputum. Patient denies any shortness of breath. Patient denies any chest discomfort. Patient states he has had increasing weakness, but denies any lightheadedness, dizziness, syncopal, or near syncopal episodes. Patient states he has no abdominal pain and he has had no problem exchanging his dialysate. Patient has a known history of CVA, diabetes mellitus, coronary artery disease status post coronary bypass grafting, bicuspid aortic valve status post bioprosthetic aortic valve replacement, and end-stage renal disease on peritoneal dialysis. Patient is currently on the transplant list for a kidney. Patient states he also recently broke his left ankle and is in a cast. Review of Systems Review of Systems: A 12 point review of systems was completed patient all pertinent positive and negative per HPI the remainder are unremarkable. [facility] Past Medical History Medical History Arthritis Bicuspid aortic valve Severe aortic stenosis status post bioprosthetic aortic valve replacement. Cerebrovascular accident (~09/21/20) Thought to be embolic in nature, on long-term anticoagulation. Residual dysarthria. 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 Required temporary dialysis for a few months in spring 2019. Combined systolic and diastolic congestive heart failure Echocardiogram dated 11/03/2020 showed mildly enlarged left ventricular chamber with normal left ventricular systolic function and ejection fraction of 55 to 60% (as low as 35% on previous echos), moderate increased LV wall thickness, grade 3 diastolic dysfunction, and mild mitral and tricuspid valve regurgitation. Diabetic foot ulcer Dialysis patient Essential hypertension Finger fracture Former smoker 50 pack year smoking history, quit in 1987. Gastroesophageal reflux disease Hiatal hernia History of hemodialysis History of acute kidney injury on chronic kidney disease requiring hemodialysis in 2019. He has had a right IJ temporary dialysis catheter placed in 01/2020 and then a tunneled dialysis catheter in 02/2020, which was removed in 05/2020. History of osteomyelitis Impingement syndrome of left shoulder Insulin dependent type 2 diabetes mellitus Complicated by nephropathy, neuropathy, and retinopathy. Mixed hyperlipidemia Peripheral vascular disease Pneumonia Surgical History Surgical History Amputation of left great toe (~2019) Secondary to osteomyelitis. History of aortic valve replacement (~07/24/20) 25 mm Inspiris bioprosthetic valve per Dr. Nam Daniels at [facility]. History of carpal tunnel release History of coronary artery bypass graft x 1 (~07/24/20) Saphenous vein graft to obtuse marginal per Dr. Nam Daniels at [facility]. History of tonsillectomy Family History Family History Mother Family history of arthritis Family history of
--- NOTE | 2022-03-02 16:43 | ADMGEN ---
This patient, Pankaj Bautista, was admitted to Medical Room 343-01. Patient/family oriented to hospital policies and general routines including ID bracelet, bed and alarms, visiting hours, pain management, procedures, bathroom and other care routines, personal items, smoking policy, room service/diet, and visiting hours. Information on how to activate the Rapid Response Team has been discussed. Patient/Family are encouraged to report perceived risks to care and to ask questions if they do not understand what they are told or what they should do.
--- NOTE | 2022-03-02 17:04 | PM.CNNEP ---
Assessment and Plan Assessment and plan (1) End stage renal disease: Code(s): N18.6 - End stage renal disease Status: Chronic Assessment and Plan: resume CCPD tonight follow trend of electrolytes, volume status, and clearance (2) Pneumonia: Qualifiers: Laterality: bilateral Lung location: lower lobe of lung Pneumonia type: due to unspecified organism Qualified Code(s): J18.9 - Pneumonia, unspecified organism Code(s): J18.9 - Pneumonia, unspecified organism Status: Acute Assessment and Plan: as noted by history and imaging on admission follow cultures on IV antibiotics supplemental oxygen PRN (3) Hypertension: Code(s): I10 - Essential (primary) hypertension Status: Chronic Assessment and Plan: initially hypotensive on admission however, even at baseline, his BP is quite erratic suspect an element of autonomic dysfunction playing a role would resume home BP medications may need to use PRN IV medications as well (4) Anemia: Qualifiers: Anemia type: due to chronic kidney disease Chronic kidney disease stage: stage 5, not on chronic dialysis Qualified Code(s): N18.5 - Chronic kidney disease, stage 5; D63.1 - Anemia in chronic kidney disease Code(s): D64.9 - Anemia, unspecified Status: Chronic Assessment and Plan: due to ESRD and acute illness Epogen 3x/week while hospitalized follow trend of H/H (5) Diabetes: Code(s): E11.9 - Type 2 diabetes mellitus without complications Status: Chronic Assessment and Plan: follow accuchecks glycemic control Will continue to follow. History of Present Illness Reason for Consult Consult date: 03/02/22 Reason for consult: end stage renal disease Chief Complaint Chief complaint: Pneumonia History of Present Illness Narrative: The patient is a 56-year-old male with a past medical history as outlined below who presented to [facility] Emergency room for further evaluation of a fever. Over the past 48 hours, the patient has been having on and off fevers with his T-max being 101?. He has taken Tylenol at least twice to bring the fever down but once the Tylenol wears off, his temperature starts rising once again. Associated symptoms included a cough in the same timeframe with occasional dark yellow sputum production. He gave no symptomatic complaints of shortness of breath and denies any other systemic complaints with regard to chest pain, nausea, vomiting, lightheadedness, dizziness, or palpitations. He does report increasing fatigue and weakness and reports that his peritoneal dialysis has been uneventful although he did have a contamination yesterday evening but went to see his peritoneal dialysis nurse on today who gave him intraperitoneal prophylactic antibiotics to ensure he would not developed peritonitis. Given the persistence of the fevers, he came to the ER for further evaluation Workup and evaluation emergency room demonstrated the patient to be hemodynamically stable although his blood pressure was a little bit lower than his normal hypertensive baseline. He did not appear to be any respiratory distress and his oxygen saturations were well preserved at around 90% on room air. Routine blood test demonstrated labs consistent with his known history of end-stage renal disease but with no elevated white blood cell count, left shift, or any other abnormalities. His chest x-ray was somewhat suggestive of pneumonia and in the context of the symptoms that led to his presentation as well as his complex medical history, he was admitted to the hospital for treatment of presumed pneumonia and IV antibiotics were instituted after appropriate cultures were obtained. Renal consultation was requested due to his end-stage renal disease. The patient is quite familiar to me as I take care of his outpatient dialysis needs. He normally does peritoneal
[2022-03-02] MEDS: hydrALAZINE HCL 20 MG/ML VIAL 10 MG IV PUSH (17:31)
[2022-03-02 20:17] LABS: Glucose Point of Care 122 mg/dl (65-105)
[2022-03-02] MEDS: HEPARIN SODIUM 5,000 UNITS/ML VIAL 5000 UNITS SUB-Q (20:44)
[2022-03-02] MEDS: carvediloL 12.5 MG TABLET PO (23:58)
[2022-03-03] VITALS (12 sets, daily range): BP systolic 120–211; BP diastolic 74–90; PULSE 82–115; RESP 18–26; TEMP 36.5–37.4; O2SAT 93–95
[2022-03-03 05:48] LABS: Basophils Absolute Auto 0.1 K/mm3 (0.0-0.1); Basophils Percent Auto 0.6 % (0.2-1.2); Eosinophils Absolute Auto 0.1 K/mm3 (0-0.3); Eosinophils Percent Auto 1.3 % (0-4.4); Hematocrit 29.9 % (42.0-52.0); Hemoglobin 9.7 g/dL (14.0-18.0); Immature Granulocyte Absolute 0.04 K/mm3 (0.00-0.031); Immature Granulocyte Percent A 0.5 % (0-0.5); Lymphocytes Absolute Auto 1.73 K/mm3 (0.9-3.2); Lymphocytes Percent Auto 20.4 % (18.3-44.2); Mean Corpuscular HGB Conc 32.4 g/dl (32-36); Mean Corpuscular Hemoglobin 29.8 pg (26-34); Mean Corpuscular Volume 91.7 fl (80-100); Mean Platelet Volume 10.4 fl (7.4-10.4); Monocytes Absolute Auto 1.3 K/mm3 (0.1-0.6); Monocytes Percent Auto 14.7 % (2.6-8.5); Neutrophils Absolute Auto 5.3 K/mm3 (1.3-6.7); Neutrophils Percent Auto 62.5 % (45.5-73.1); Platelet Count Result 153 k/mm3 (150-375); Red Blood Count 3.26 M/mm3 (4.6-6.20); Red Cell Distribution Width 14.5 % (11.5-14.5); White Blood Count 8.5 K/mm3 (4.5-10.0)
[2022-03-03 05:57] LABS: Albumin Level 2.9 g/dL (3.5-5.1); Anion Gap 8 mmol/L (8-16); Blood Urea Nitrogen 40 mg/dL (9-20); Calcium 8.4 mg/dL (8.4-10.2); Carbon Dioxide 25 mmol/L (22-30); Chloride 100 mmol/L (98-107); Estimated CRCL calculation 9 ml/min; Estimated Glomerular Filt Rate 6; Glucose 131 mg/dL (65-110); Magnesium 1.5 mg/dL (1.6-2.3); Potassium 3.2 mmol/L (3.4-5.0); Sodium 133 mmol/L (137-145)
[2022-03-03 07:21] LABS: Glucose Point of Care 126 mg/dl (65-105)
[2022-03-03] MEDS: FAMOTIDINE 20 MG TABLET 40 MG PO (08:19)
[2022-03-03] MEDS: POTASSIUM CHLORIDE 20 MEQ TABLET 40 MEQ PO (08:19)
[2022-03-03] MEDS: GABAPENTIN 300 MG CAPSULE 900 MG PO ×2 (08:20→16:52)
[2022-03-03] MEDS: DOCUSATE SODIUM 100 MG CAPSULE PO (08:20)
[2022-03-03] MEDS: HEPARIN SODIUM 5,000 UNITS/ML VIAL 5000 UNITS SUB-Q ×2 (08:20→20:30)
[2022-03-03] MEDS: NIFEdipine 30 MG TAB.ER.24 PO (08:21)
[2022-03-03] MEDS: carvediloL 25 MG TABLET PO ×2 (08:21→20:30)
[2022-03-03] MEDS: polyethylene glycoL 3350 17 GM POWD.PACK PO ×2 (08:27→16:52)
[2022-03-03] MEDS: calcitrioL 0.25 MCG CAPSULE 0.5 MCG PO (08:27)
[2022-03-03] MEDS: ATORVASTATIN 40 MG TABLET 80 MG PO (08:27)
[2022-03-03] MEDS: ASPIRIN 81 MG CHEWABLE TABLET PO (08:27)
[2022-03-03] MEDS: lisinopriL 20 MG TABLET PO ×2 (08:27→16:53)
[2022-03-03] MEDS: BUMETANIDE 1 MG TABLET 2 MG PO ×2 (08:27→16:53)
[2022-03-03] MEDS: VENLAFAXINE HCL 75 MG TABLET PO ×3 (08:28→16:52)
[2022-03-03] MEDS: VENLAFAXINE HCL 25 MG TABLET PO ×3 (08:28→16:52)
[2022-03-03] MEDS: MAGNESIUM SULF 1 GM/D5W 100 ML 1 GM/100 ML BAG IVPB (09:46)
[2022-03-03 11:17] LABS: Glucose Point of Care 131 mg/dl (65-105)
[2022-03-03] MEDS: SILVERGEL (ELTA) 45 ML 1 APPLIC TOPICAL (11:47)
[2022-03-03] MEDS: POTASSIUM CHLORIDE 20 MEQ TABLET PO (11:56)
--- NOTE | 2022-03-03 12:26 | PM.PNNEP ---
Progress Note: A&P Assessment and Plan (1) End stage renal disease: Code(s): N18.6 - End stage renal disease Status: Chronic Assessment and Plan: continue CCPD overnight follow trend of electrolytes, volume status, and clearance still has reasonable urine output as well (2) Pneumonia: Qualifiers: Laterality: bilateral Lung location: lower lobe of lung Pneumonia type: due to unspecified organism Qualified Code(s): J18.9 - Pneumonia, unspecified organism Code(s): J18.9 - Pneumonia, unspecified organism Status: Acute Assessment and Plan: as noted by history and imaging on admission follow cultures on IV antibiotics supplemental oxygen PRN (3) Hypertension: Code(s): I10 - Essential (primary) hypertension Status: Chronic Assessment and Plan: initially hypotensive on admission however, even at baseline, his BP is quite erratic suspect an element of autonomic dysfunction playing a role would resume home BP medications will add nifedipine XL today may need to use PRN IV medications as well (4) Anemia: Qualifiers: Anemia type: due to chronic kidney disease Chronic kidney disease stage: stage 5, not on chronic dialysis Qualified Code(s): N18.5 - Chronic kidney disease, stage 5; D63.1 - Anemia in chronic kidney disease Code(s): D64.9 - Anemia, unspecified Status: Chronic Assessment and Plan: due to ESRD and acute illness Epogen 3x/week while hospitalized follow trend of H/H (5) Diabetes: Code(s): E11.9 - Type 2 diabetes mellitus without complications Status: Chronic Assessment and Plan: follow accuchecks glycemic control Will continue to follow. Subjective Date/time seen: 03/03/22 12:26 Peritoneal dialysis treatment went well last night without any issues or problems; respiratory status/breathing appears stable as well; not requiring oxygen; remains afebrile at this time; no other issues/events overnight or earlier this morning. Exam Narrative: General: WD/WN female in NAD Heart: normal S1 and S2; no rub Lungs: decreased at bases Abdomen: soft, nontender, nondistended, positive bowel sounds Extremities: no cyanosis or clubbing; no edema Skin: warm and dry Objective Data Vital Signs Vital Signs: Vital Signs Temp Pulse Resp BP Pulse Ox 03/03/22 12:00 89 03/03/22 08:21 106 H 03/03/22 08:00 106 H 03/03/22 06:00 37.4 C 106 H 18 211/90 H 95 03/03/22 04:00 104 H 03/03/22 00:00 115 H 03/02/22 23:58 80 03/02/22 22:00 37.0 C 99 18 190/117 H 100 03/02/22 21:36 93 03/02/22 20:00 97 03/02/22 16:38 37.4 C 97 16 190/120 H 93 03/02/22 16:00 98 03/02/22 15:31 113 H 25 H 179/121 H 96 03/02/22 15:30 91 21 H 98 03/02/22 15:25 90 18 179/108 H 96 03/02/22 15:22 90 18 94 03/02/22 15:04 91 21 H 03/02/22 14:46 88 0 L 210/128 H 98 03/02/22 14:45 89 27 H 90 03/02/22 14:31 90 19 194/130 H 98 03/02/22 14:30 87 23 H 96 03/02/22 14:16 87 28 H 175/105 H 90 03/02/22 14:15 82 97 03/02/22 14:02 83 15 97 03/02/22 14:01 83 26 H 184/138 H 93 03/02/22 13:53 88 28 H 92 03/02/22 13:34 91 32 H 96 03/02/22 13:28 85 17 93 03/02/22 13:01 83 22 H 172/107 H 98 03/02/22 13:00 88 30 H 90 03/02/22 12:51 87 21 H 98 03/02/22 12:34 85 29 H Intake/Output Intake/Output: Intake & Output 02/28/22 03/01/22 03/02/22 03/03/22 23:59 23:59 23:59 23:59 Intake Total 1540 660 Output Total 1621 Balance 1540 -961 Meds/Results Medications: Active Medications Generic Name Dose Route Start Last Admin Trade Name Nathanq PRN Reason Stop Dose Admin Aspirin 81 mg 03/03/22 09:00 03/03/22 08:27 Aspirin 81 Mg Chewable Tablet PO 81 mg DAILY ALEX Administration Atorvastatin Calcium 80 mg 03/03/22
--- NOTE | 2022-03-03 15:36 | PM.IMPN ---
Progress Note: A&P Assessment and Plan (1) Pneumonia: Qualifiers: Laterality: bilateral Lung location: lower lobe of lung Pneumonia type: due to unspecified organism Qualified Code(s): J18.9 - Pneumonia, unspecified organism Code(s): J18.9 - Pneumonia, unspecified organism Status: Acute Assessment and Plan: Patient's chest x-ray does show and pneumonia. Patient received Rocephin and azithromycin in the emergency room. Patient's O2 saturations per the emergency room were 90% on room air. At this point in time will continue with azithromycin and Rocephin and monitor patient's O2 saturations. If patient does need oxygen will place oxygen and titrate to keep O2 saturations greater than 93%. 03/03/2022 interval history; 56-year-old male with history of end-stage renal disease on peritoneal dialysis was sent to emergency department with fever patient is found to have pneumonia patient is being treated with ceftriaxone and azithromycin for community-acquired pneumonia, patient states is feeling much compared to when he arrived, will continue to monitor, will follow-up on blood culture the repeat chest x-ray in 2 days and further recommendation to follow, patient will continue to have peritoneal dialysis will be seen by Nephrology and will monitor. (2) End stage renal disease: Code(s): N18.6 - End stage renal disease Status: Chronic Assessment and Plan: Patient is a peritoneal dialysis patient. Nephrology has been consult and appreciate further recommendations. 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 Will also resume patient's home medications once we have verified medication list. (4) Hypokalemia: Code(s): E87.6 - Hypokalemia Status: Acute Assessment and Plan: Will give patient 1 dose of oral potassium and have chemistry panel drawn in the morning. If patient continues to need supplementation due appreciating further recommendations from Nephrology. Subjective Date/time seen: 03/03/22 15:36 Chief Complaint: Fever Narrative: Mr. Bautista is a 56-year-old gentleman who presented emergency room with complaints of fever. Patient states that he has a peritoneal dialysis patient. Patient states over the last 2 days he has had a fever with a T-max of 101?. Patient states he has taken Tylenol twice which has brought his fever down. Patient states that he went to his dialysis unit this morning to see the dialysis nurse and she placed antibiotic in his dialysate. Patient was then told to come to the emergency room for further evaluation. Patient states he has had a cough for approximately 2 days with occasional sputum production of dark yellow sputum. Patient denies any shortness of breath. Patient denies any chest discomfort. Patient states he has had increasing weakness, but denies any lightheadedness, dizziness, syncopal, or near syncopal episodes. Patient states he has no abdominal pain and he has had no problem exchanging his dialysate. Patient has a known history of CVA, diabetes mellitus, coronary artery disease status post coronary bypass grafting, bicuspid aortic valve status post bioprosthetic aortic valve replacement, and end-stage renal disease on peritoneal dialysis. Patient is currently on the transplant list for a kidney. Patient states he also recently broke his left ankle and is in a cast. 03/03/2022 interval history; 56-year-old male with history of end-stage renal disease on peritoneal dialysis was sent to emergency department with fever patient is found to have pneumonia patient is being treated with ceftriaxone and azithromycin for community-acquired pneumonia, patient states is feeling much com
[2022-03-03 16:53] LABS: Glucose Point of Care 122 mg/dl (65-105)
[2022-03-03 20:44] LABS: Glucose Point of Care 188 mg/dl (65-105)
[2022-03-04] VITALS (9 sets, daily range): BP systolic 102–135; BP diastolic 66–71; PULSE 72–86; RESP 16–18; TEMP 36.4–36.6; O2SAT 93–96
[2022-03-04 06:09] LABS: Hematocrit 24.4 % (42.0-52.0); Hemoglobin 7.9 g/dL (14.0-18.0); Mean Corpuscular HGB Conc 32.4 g/dl (32-36); Mean Corpuscular Hemoglobin 29.3 pg (26-34); Mean Corpuscular Volume 90.4 fl (80-100); Mean Platelet Volume 10.1 fl (7.4-10.4); Platelet Count Result 166 k/mm3 (150-375); Red Cell Distribution Width 14.3 % (11.5-14.5); White Blood Count 7.3 K/mm3 (4.5-10.0)
[2022-03-04 06:17] LABS: Albumin Level 2.6 g/dL (3.5-5.1); Anion Gap 7 mmol/L (8-16); Blood Urea Nitrogen 40 mg/dL (9-20); Calcium 8.2 mg/dL (8.4-10.2); Carbon Dioxide 25 mmol/L (22-30); Chloride 101 mmol/L (98-107); Estimated CRCL calculation 9 ml/min; Estimated Glomerular Filt Rate 6; Glucose 102 mg/dL (65-110); Phosphorus 5.7 mg/dL (2.5-4.5); Potassium 3.6 mmol/L (3.4-5.0); Sodium 133 mmol/L (137-145)
[2022-03-04 07:08] LABS: Hepatitis B Surface Antigen Negative (Negative)
[2022-03-04 07:25] LABS: Hepatitis B Surface Anti Res Negative
[2022-03-04 08:07] LABS: Glucose Point of Care 129 mg/dl (65-105)
[2022-03-04] MEDS: ATORVASTATIN 40 MG TABLET 80 MG PO (08:52)
[2022-03-04] MEDS: carvediloL 25 MG TABLET PO (08:52)
[2022-03-04] MEDS: VENLAFAXINE HCL 25 MG TABLET PO ×2 (08:52→12:14)
[2022-03-04] MEDS: GABAPENTIN 300 MG CAPSULE 900 MG PO (08:53)
[2022-03-04] MEDS: VENLAFAXINE HCL 75 MG TABLET PO ×2 (08:53→12:14)
[2022-03-04] MEDS: HEPARIN SODIUM 5,000 UNITS/ML VIAL 5000 UNITS SUB-Q (08:53)
[2022-03-04] MEDS: calcitrioL 0.25 MCG CAPSULE 0.5 MCG PO (08:53)
[2022-03-04] MEDS: polyethylene glycoL 3350 17 GM POWD.PACK PO (08:53)
[2022-03-04] MEDS: DOCUSATE SODIUM 100 MG CAPSULE PO (08:53)
[2022-03-04] MEDS: lisinopriL 20 MG TABLET PO (08:53)
[2022-03-04] MEDS: BUMETANIDE 1 MG TABLET 2 MG PO (08:53)
[2022-03-04] MEDS: NIFEdipine 30 MG TAB.ER.24 PO (08:53)
[2022-03-04] MEDS: ASPIRIN 81 MG CHEWABLE TABLET PO (08:53)
[2022-03-04] MEDS: SILVERGEL (ELTA) 45 ML 1 APPLIC TOPICAL (08:54)
[2022-03-04] MEDS: FAMOTIDINE 20 MG TABLET 40 MG PO (08:54)
--- NOTE | 2022-03-04 11:14 | P.PNNP_ITS ---
Progress Note: A&P Assessment and Plan (1) End stage renal disease: Code(s): N18.6 - End stage renal disease Status: Chronic Assessment and Plan: * continue CCPD overnight * follow trend of electrolytes, volume status, and clearance * still has reasonable urine output as well (2) Pneumonia: Qualifiers: Laterality: bilateral Lung location: lower lobe of lung Pneumonia ty pe: due to unspecified organism Qualified Code(s): J18.9 - Pneumonia, unspecified organism Code(s): J18.9 - Pneumonia, unspecified organism Status: Acute Assessment and Plan: * as noted by history and imaging on admission * follow cultures * on IV antibiotics * supplemental oxygen PRN (3) Hypertension: Code(s): I10 - Essential (primary) hypertension Status: Chronic Assessment and Plan: * initially hypotensive on admission * however, even at baseline, his BP is quite erratic * suspect an element of autonomic dysfunction playing a role * would resume home BP medications * added nifedipine XL yesterday with improvement in BP (4) Anemia: Qualifiers: Anemia type: due to chronic kidney disease Chronic kidney disease stage: stage 5, not on chronic dialysis Qualified Code(s): N18.5 - Chronic kidney disease, stage 5; D63.1 - Anemia in chronic kidney disease Code(s): D64.9 - Anemia, unspecified Status: Chronic Assessment and Plan: * due to ESRD and acute illness * Epogen 3x/week while hospitalized * follow trend of H/H (5) Diabetes: Code(s): E11.9 - Type 2 diabetes mellitus without complications Status: Chronic Assessment and Plan: * follow accuchecks * glycemic control Will continue to follow. Subjective Date/time seen: 03/04/22 11:14 Continues to tolerated peritoneal dialysis treatment reasonably well overnight; breathing/respiratory status remains stable if not better; no apparent distress voiced; no other issues/events overnight or earlier this morning; hoping for discharge today. Exam Narrative: General: WD/WN female in NAD Heart: normal S1 and S2; no rub Lungs: decreased at bases Abdomen: soft, nontender, nondistended, positive bowel sounds Extremities: no cyanosis or clubbing; no edema Skin: warm and intact Objective Data Vital Signs Vital Signs: Vital Signs Temp Pulse Resp BP Pulse Ox 03/04/22 08:52 86 03/04/22 05:46 36.6 C 86 18 135/71 96 03/04/22 05:14 94 03/04/22 04:00 80 03/04/22 00:00 86 03/03/22 21:18 36.5 C 85 26 H 150/78 H 95 03/03/22 20:30 82 03/03/22 20:00 85 26 H 95 03/03/22 16:00 92 03/03/22 15:08 93 03/03/22 14:00 36.6 C 83 22 H 120/74 93 03/03/22 12:00 89 Intake/Output Intake/Output: Intake & Output 03/01/22 03/02/22 03/03/22 03/04/22 23:59 23:59 23:59 23:59 Intake Total 1540 1440 360 Output Total 8894 700 Balance 5378 -6186 -122 Meds/Results Medications: Active Medications Generic Name Dose Route Start Last Admin Trade Name Freq PRN Reason Stop Dose Admin Aspirin 81 mg 03/03/22 09:00 03/04/22 08:53 Aspirin 81 Mg Chewable Tablet PO 81 mg DAILY SC
--- NOTE | 2022-03-04 11:14 | PM.PNNEP ---
Progress Note: A&P Assessment and Plan (1) End stage renal disease: Code(s): N18.6 - End stage renal disease Status: Chronic Assessment and Plan: continue CCPD overnight follow trend of electrolytes, volume status, and clearance still has reasonable urine output as well (2) Pneumonia: Qualifiers: Laterality: bilateral Lung location: lower lobe of lung Pneumonia type: due to unspecified organism Qualified Code(s): J18.9 - Pneumonia, unspecified organism Code(s): J18.9 - Pneumonia, unspecified organism Status: Acute Assessment and Plan: as noted by history and imaging on admission follow cultures on IV antibiotics supplemental oxygen PRN (3) Hypertension: Code(s): I10 - Essential (primary) hypertension Status: Chronic Assessment and Plan: initially hypotensive on admission however, even at baseline, his BP is quite erratic suspect an element of autonomic dysfunction playing a role would resume home BP medications added nifedipine XL yesterday with improvement in BP (4) Anemia: Qualifiers: Anemia type: due to chronic kidney disease Chronic kidney disease stage: stage 5, not on chronic dialysis Qualified Code(s): N18.5 - Chronic kidney disease, stage 5; D63.1 - Anemia in chronic kidney disease Code(s): D64.9 - Anemia, unspecified Status: Chronic Assessment and Plan: due to ESRD and acute illness Epogen 3x/week while hospitalized follow trend of H/H (5) Diabetes: Code(s): E11.9 - Type 2 diabetes mellitus without complications Status: Chronic Assessment and Plan: follow accuchecks glycemic control Will continue to follow. Subjective Date/time seen: 03/04/22 11:14 Continues to tolerated peritoneal dialysis treatment reasonably well overnight; breathing/respiratory status remains stable if not better; no apparent distress voiced; no other issues/events overnight or earlier this morning; hoping for discharge today. Exam Narrative: General: WD/WN female in NAD Heart: normal S1 and S2; no rub Lungs: decreased at bases Abdomen: soft, nontender, nondistended, positive bowel sounds Extremities: no cyanosis or clubbing; no edema Skin: warm and intact Objective Data Vital Signs Vital Signs: Vital Signs Temp Pulse Resp BP Pulse Ox 03/04/22 08:52 86 03/04/22 05:46 36.6 C 86 18 135/71 96 03/04/22 05:14 94 03/04/22 04:00 80 03/04/22 00:00 86 03/03/22 21:18 36.5 C 85 26 H 150/78 H 95 03/03/22 20:30 82 03/03/22 20:00 85 26 H 95 03/03/22 16:00 92 03/03/22 15:08 93 03/03/22 14:00 36.6 C 83 22 H 120/74 93 03/03/22 12:00 89 Intake/Output Intake/Output: Intake & Output 03/01/22 03/02/22 03/03/22 03/04/22 23:59 23:59 23:59 23:59 Intake Total 1540 1440 360 Output Total 2471 700 Balance 3845 -2826 -047 Meds/Results Medications: Active Medications Generic Name Dose Route Start Last Admin Trade Name Nathanq PRN Reason Stop Dose Admin Aspirin 81 mg 03/03/22 09:00 03/04/22 08:53 Aspirin 81 Mg Chewable Tablet PO 81 mg DAILY ALEX Administration Atorvastatin Calcium 80 mg 03/03/22 09:00 03/04/22 08:52 Atorvastatin 40 Mg Tablet PO 80 mg DAILY ALEX Administration Bumetanide 2 mg 03/03/22 09:00 03/04/22 08:53 Bumetanide 1 Mg Tablet PO 2 mg BID ALEX Administration Calcitriol 0.5 mcg 03/03/22 09:00 03/04/22 08:53 Calcitriol 0.25 Mcg Capsule PO 04/02/22 08:59 0.5 mcg DAILY ALEX Administration Carvedilol 25 mg 03/03/22 09:00 03/04/22 08:52 Carvedilol 25 Mg Tablet PO 25 mg Q12HR ALEX Administration Docusate Sodium 100 mg 03/03/22 09:00 03/04/22 08:53 Docusate Sodium 100 Mg Capsule PO 100 mg DAILY ALEX Administration Famotidine 40 mg 03/03/22 09:00 03/04/22 08:54 Famotidine 20 Mg Tablet PO 40 mg DAILY ALEX Administ
[2022-03-04 11:46] LABS: Glucose Point of Care 122 mg/dl (65-105)
[2022-03-04] MEDS: EPOETIN ALFA-EPBX 20,000 UNITS/ML VIAL 20000 UNITS SUB-Q (12:14)
--- NOTE | 2022-03-04 13:33 | PM.DS ---
DS: Admitting Diagnosis Discharge Date 03/04/2022 Admitting Diagnosis fever DS: Discharge Diagnosis Discharge Diagnosis (1) Pneumonia: Qualifiers: Laterality: bilateral Lung location: lower lobe of lung Pneumonia type: due to unspecified organism Qualified Code(s): J18.9 - Pneumonia, unspecified organism Code(s): J18.9 - Pneumonia, unspecified organism Status: Acute Assessment and Plan: Patient's chest x-ray does show and pneumonia. Patient received Rocephin and azithromycin in the emergency room. Patient's O2 saturations per the emergency room were 90% on room air. At this point in time will continue with azithromycin and Rocephin and monitor patient's O2 saturations. If patient does need oxygen will place oxygen and titrate to keep O2 saturations greater than 93%. 03/03/2022 interval history; 56-year-old male with history of end-stage renal disease on peritoneal dialysis was sent to emergency department with fever patient is found to have pneumonia patient is being treated with ceftriaxone and azithromycin for community-acquired pneumonia, patient states is feeling much compared to when he arrived, will continue to monitor, will follow-up on blood culture the repeat chest x-ray in 2 days and further recommendation to follow, patient will continue to have peritoneal dialysis will be seen by Nephrology and will monitor. (2) End stage renal disease: Code(s): N18.6 - End stage renal disease Status: Chronic Assessment and Plan: Patient is a peritoneal dialysis patient. Nephrology has been consult and appreciate further recommendations. 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 Will also resume patient's home medications once we have verified medication list. (4) Hypokalemia: Code(s): E87.6 - Hypokalemia Status: Acute Assessment and Plan: Will give patient 1 dose of oral potassium and have chemistry panel drawn in the morning. If patient continues to need supplementation due appreciating further recommendations from Nephrology. DS: Summary Hospital Course Reason for hospitalization: Chief Complaint: Fever Narrative: Mr. Bautista is a 56-year-old gentleman who presented emergency room with complaints of fever. Patient states that he has a peritoneal dialysis patient. Patient states over the last 2 days he has had a fever with a T-max of 101?. Patient states he has taken Tylenol twice which has brought his fever down. Patient states that he went to his dialysis unit this morning to see the dialysis nurse and she placed antibiotic in his dialysate. Patient was then told to come to the emergency room for further evaluation. Patient states he has had a cough for approximately 2 days with occasional sputum production of dark yellow sputum. Patient denies any shortness of breath. Patient denies any chest discomfort. Patient states he has had increasing weakness, but denies any lightheadedness, dizziness, syncopal, or near syncopal episodes. Patient states he has no abdominal pain and he has had no problem exchanging his dialysate. Patient has a known history of CVA, diabetes mellitus, coronary artery disease status post coronary bypass grafting, bicuspid aortic valve status post bioprosthetic aortic valve replacement, and end-stage renal disease on peritoneal dialysis. Patient is currently on the transplant list for a kidney. Patient states he also recently broke his left ankle and is in a cast. Hospital Course: 03/03/2022 interval history; 56-year-old male with history of end-stage renal disease on peritoneal dialysis was sent to emergency department with fever patient is found to have pneumonia patient is b
== END 2022-03-04 15:46 | disposition home or self-care (01) ==
LOC: ANHED 15:03 → ANH3MED 03-03 00:53
PROVIDERS: Emergency Medicine; Internal Medicine Nephrology; Nurse Practitioner Adult Health; Admitting Provider Family Medicine; Emergency Provider Nurse Practitioner Family; PCP Family Medicine; Visit Provider Family Medicine
DX: J18.9 Pneumonia, unspecified organism (principal); I13.2 Hypertensive heart and chronic kidney disease with heart failure and with stage 5 chronic kidney disease, or end stage renal disease; I50.40 Unspecified combined systolic (congestive) and diastolic (congestive) heart failure; N18.6 End stage renal disease; E11.22 Type 2 diabetes mellitus with diabetic chronic kidney disease; E11.51 Type 2 diabetes mellitus with diabetic peripheral angiopathy without gangrene; E11.40 Type 2 diabetes mellitus with diabetic neuropathy, unspecified; E11.319 Type 2 diabetes mellitus with unspecified diabetic retinopathy without macular edema; E87.6 Hypokalemia; E78.5 Hyperlipidemia, unspecified; D63.1 Anemia in chronic kidney disease; K21.9 Gastro-esophageal reflux disease without esophagitis; K44.9 Diaphragmatic hernia without obstruction or gangrene; Z99.2 Dependence on renal dialysis; Z95.4 Presence of other heart-valve replacement; Z79.01 Long term (current) use of anticoagulants; Z86.73 Personal history of transient ischemic attack (TIA), and cerebral infarction without residual deficits; Z20.822 Contact with and (suspected) exposure to COVID-19; Z87.891 Personal history of nicotine dependence; Z95.1 Presence of aortocoronary bypass graft; Z89.412 Acquired absence of left great toe
CPT/HCPCS: 36415; 70450; 71045; 80053; 80069; 82948; 83605; 83735; 85025; 85027; 85610; 85730; 86140; 86706; 87040; 87340; 87502; 90945; 93005; 96365; 96366; 96368; 96372; 96375; 99285; A9270; C9803; G0378; J0360; J0456; J0696; J1644; J3475; J7030; Q5105; U0003; U0005

== ENCOUNTER 2022-03-30 12:47 | Outpatient (RCR) | payer OTHER, MEDICARE, SELFPAY ==
[2022-03-30 14:36] VITALS: PULSE 57; TEMP 36.8; O2SAT 98
[2022-03-30 14:40] VITALS: BP 173/127
[2022-03-30] MEDS: diphenhydrAMINE HCl CAP 25 MG CAPSULE PO (14:52)
[2022-03-30] MEDS: FAMOTIDINE 20 MG TABLET PO (14:52)
[2022-03-30] MEDS: ACETAMINOPHEN 325 MG TABLET 650 MG PO (14:53)
[2022-03-30] MEDS: BEBTELOVIMAB 175 MG/2 ML VIAL IV PUSH (15:12)
[2022-03-30 15:57] VITALS: BP 173/138
== END 2022-03-30 16:00 ==
LOC: AMCINF 12:47
PROVIDERS: PCP Nurse Practitioner Family; Referring Provider Nurse Practitioner Family; Visit Provider Internal Medicine Hematology & Oncology
DX: U07.1 COVID-19 (principal); I10 Essential (primary) hypertension; I25.10 Atherosclerotic heart disease of native coronary artery without angina pectoris; N18.9 Chronic kidney disease, unspecified; Z99.2 Dependence on renal dialysis
CPT/HCPCS: A9270; M0222; Q0222

== ENCOUNTER 2022-04-14 09:27 | Outpatient (CLI) | payer OTHER, MEDICARE, SELFPAY ==
--- NOTE | 2022-04-14 11:15 | NEURO_ITS ---
Impression: # Complains of numbness. # Motor and sensory neuropathy, distal more than proximal involving lower more than upper extremities, sensory more than motor and left lower extremity more than right. # Needle/EMG exam neurogenic, lower extremities more than upper, but no active denervation, fibrillations or myotonia. Nerve Conduction Studies Anti Sensory Summary Table Stim Site NR Peak (ms) P-T Amp (?V) Site1 Site2 Delta-P (ms) Dist (cm) Sohail (m/s) Left Median Anti Sensory (2-3nd Digit) Wrist 4.3 8.4 Wrist 2-3nd Digit 4.3 14.0 33 Wrist 4.7 15.9 Wrist 2-3nd Digit 4.3 14.0 33 Right Median Anti Sensory (2-3nd Digit) Wrist 4.2 24.3 Wrist 2-3nd Digit 4.2 14.0 33 Wrist 4.8 14.0 Wrist 2-3nd Digit 4.2 14.0 33 Left Radial Anti Sensory (Base 1st Digit) Wrist 2.5 14.3 Wrist Base 1st Digit 2.5 0.0 Right Radial Anti Sensory (Base 1st Digit) Wrist 2.4 15.0 Wrist Base 1st Digit 2.4 0.0 Left Sup Fibular Anti Sensory (Ant Lat Mall) NO RESPONSE 14 cm NR 14 cm Ant Lat Mall 16.0 Right Sup Fibular Anti Sensory (Ant Lat Mall) NO RESPONSE 14 cm NR 14 cm Ant Lat Mall 16.0 Left Sural Anti Sensory (Lat Mall) NO RESPONSE Calf NR Calf Lat Mall 16.0 Right Sural Anti Sensory (Lat Mall) NO RESPONSE Calf NR Calf Lat Mall 16.0 Left Ulnar Anti Sensory (5th Digit) Wrist 2.9 23.9 Wrist 5th Digit 2.9 14.0 48 Right Ulnar Anti Sensory (5th Digit) Wrist 2.8 20.3 Wrist 5th Digit 2.8 14.0 50 Motor Summary Table Stim Site NR Onset (ms) O-P Amp (mV) Site1 Site2 Delta-0 (ms) Dist (cm) Sohail (m/s) Left Median Motor (Abd Poll Brev) Wrist 4.9 2.8 Elbow Wrist 6.5 30.0 46 Elbow 11.4 2.4 Right Median Motor (Abd Poll Brev) Wrist 4.7 1.7 Elbow Wrist 5.9 30.0 51 Elbow 10.6 1.1 Left Peroneal Motor (Vastus Med) NO RESPONSE Ankle NR Popit NR Right Peroneal Motor (Vastus Med) Ankle 4.6 0.3 Popit Ankle 11.4 37.0 32 Popit 16.0 0.2 Left Tibial Motor (Abd Caldera Brev) NO RESPONSE Ankle NR Knee NR Right Tibial Motor (Abd Caldera Brev) NO RESPONSE Ankle NR Knee NR Left Ulnar Motor (Abd Dig Minimi) Wrist 3.6 4.2 A Elbow Wrist 6.8 31.0 46 A Elbow 10.4 3.2 Right Ulnar Motor (Abd Dig Minimi) Wrist 3.5 4.5 A Elbow Wrist 6.8 32.0 47 A Elbow 10.3 3.5 B Elbow Wrist 4.9 23.0 47 B Elbow 8.4 3.1 F Wave Studies NR F-Lat (ms) L-R F-Lat (ms) Left Median (Mrkrs) (Abd Poll Brev) 33.59 0.50 Right Median (Mrkrs) (Abd Poll Brev) 34.09 0.50 Left Peroneal (Mrkrs) (EDB) NO RESPONSE NR Right Peroneal (Mrkrs) (EDB) 63.98 Left Tibial (Mrkrs) (Abd Hallucis) NO RESPONSE NR Right Tibial (Mrkrs) (Abd Hallucis) NO RESPONSE NR Left Ulnar (Mrkrs) (Abd Dig Min) 34.45 0.82 Right Ulnar (Mrkrs) (Abd Dig Min) 33.64 0.82 EMG Side Muscle Nerve Root Ins Act Fibs Amp Dur Recrt Comment Right 1stDorInt Ulnar C8-T1 Nml Nml Nml >12ms Reduced Right Ext Indicis Radial (Post Int) C7-8 Nml Nml Nml >12ms Reduced Right Ext Digitorum Radial (Post Int) C7-8 Nml Nml Nml >12ms Reduced Right Bra
== END 2022-04-14 09:28 | disposition home or self-care (01) ==
LOC: ANHNEURO 09:29
PROVIDERS: PCP Nurse Practitioner Family; Visit Provider Psychiatry & Neurology Neurology
DX: G62.9 Polyneuropathy, unspecified (principal)
CPT/HCPCS: 95886; 95913

== ENCOUNTER 2022-04-30 15:46 | Inpatient (IN) | payer OTHER, MEDICARE, SELFPAY ==
[2022-04-30] VITALS (29 sets, daily range): BP systolic 156–238; BP diastolic 86–159; PULSE 103–139; RESP 14–43; TEMP 37.2–40.1; O2SAT 87–100; BMI 28.4
--- NOTE | ~2022-04-30 | XR_ITS ---
EXAMINATION: XR foot RT min 3V DATE: 04/30/2022 22:07 INDICATION: Diabetic foot ulcer TECHNIQUE: Dorsoplantar, two oblique and lateral views of the right foot were obtained. COMPARISON: None. FINDINGS: There is callus formation about healing fractures at the necks of the third and fourth metatarsals. T here is still discernible lucency along the fracture planes with which demonstrate relatively smooth rounded margins with shortening of the metatarsal suggesting fracture remains ununited with ongoing o steolysis along the fracture planes. Likely additional old healed fracture of the first proximal phal anx which appears short and with abnormal cortical contours and increased central sclerosis. No other fractures identified. No erosions to suggest osteomyelitis. Mild polyarticular osteoarthritis at the first metatarsophalangeal and several of the tarsal metatarsal and interphalangeal joints. Small marichuy ntar calcaneal spur. Soft tissues are unremarkable. IMPRESSION: 1. Likely old healed fracture deformity of the right first proximal phalanx and subacute fractures at the necks of the second and third metatarsals with changes of healing but which appears to remain un united with some osteolysis along the fracture plane resulting in shortening of both metatarsals. 2. No erosions or other lesions suspicious for osteomyelitis. Reviewed, dictated and finalized at location A. IMPRESSION: 1. Likely old healed fracture deformity of the right first proximal phalanx and subacute fractures at the necks of the second and third metatarsals with zarate es of healing but which appears to remain ununited with some osteolysis along t he fracture plane resulting in shortening of both metatarsals. 2. No erosions or other lesions suspicious for osteomyelitis.
--- NOTE | ~2022-04-30 | XR_ITS ---
XR chest 1V portable DATE: 05/05/2022 15:24 INDICATION: Central line placement TECHNIQUE: Portable AP chest on 05/05/2022 1510 hours COMPARISON: 05/02/2020 2V chest FINDINGS: Left internal jugular central venous catheter is present in the right internal jugular vein thorax, the distal tip directed cephalad. No pneumothorax. Normal heart size. Aortic arch calcification. No hilar or mediastinal enlargement. No pulmonary infiltrate or consolidation, pleural effusion or pulmonary vascular congestion or pneumo thorax is detected. IMPRESSION: Left internal jugular catheter crosses the midline and enters the right internal jugular vein, directed cephalad; no pneumothorax Reviewed, dictated and finalized at location A. IMPRESSION: Left internal jugular catheter crosses the midline and enters the r ight internal jugular vein, directed cephalad; no pneumothorax
--- NOTE | ~2022-04-30 | XR_ITS ---
XR chest 1V 04/30/2022 17:53 Indication: Generalized weakness Procedure: AP portable chest Comparison: Comparison to multiple prior studies sequentially, with oldest reviewed study dated 02/15. Findings: Status post median sternotomy for CABG. Borderline heart size. Diffuse bilateral airspace d isease is present which may represent edema or pneumonia. No pleural effusion or pneumothorax. Impression: 1: Diffuse bilateral airspace disease which may represent edema or pneumonia. Reviewed, dictated and finalized at location A. Impression: 1: Diffuse bilateral airspace disease which may represent edema or pneumonia.
--- NOTE | ~2022-04-30 | XR_ITS ---
EXAMINATION: XR fl guide central line place DATE: 05/06/2022 10:52 INDICATION: Central line placement TECHNIQUE: 2 fluoroscopic images of the central chest were obtained during procedure performed by Dr. King. Radiologist was not present for the imaging or procedure. The amount of fluoroscopy time used during this procedure was 3.2 minutes. COMPARISON: 05/06/2022 FINDINGS: Interval removal or repositioning of the prior malpositioned left internal jugular central venous cat heter which on the final image is appropriately positioned with distal tip at the level of the superi or cavoatrial junction. Visualized portion of the cardiomediastinal silhouette is normal. Median ster notomy wires and mediastinal surgical clips are seen, likely from prior coronary artery bypass grafti ng. IMPRESSION: 1. Fluoroscopy utilized during the replacement or repositioning of a previously malpositioned left in ternal jugular central venous catheter which is now with distal tip at the superior cavoatrial juncti on. See procedure note for further detail. Reviewed, dictated and finalized at location B. IMPRESSION: 1. Fluoroscopy utilized during the replacement or repositioning of a previously malpositioned left internal jugular central venous catheter which is now with distal tip at the superior cavoatrial junction. See procedure note for further detail.
--- NOTE | ~2022-04-30 | CT_ITS ---
EXAMINATION: CT brain wo con DATE: 04/30/2022 17:50 INDICATION: Headache and slurred speech. Aphasia. History of CVA. TECHNIQUE: Computed tomography (CT) of the head was performed without intravenous contrast. The dose- length product was 605.33 mGy-cm. Automated exposure control and iterative reconstruction technique w ere employed. COMPARISON: CT dated 03/03/2022 FINDINGS: Stable chronic infarctions of the frontal lobes, right occipital lobe, right cerebellum. No ventriculomegaly or midline shift. Basilar cisterns are patent. No acute intracranial hemorrhage, in farction or mass. Small mucous retention cyst left maxillary sinus. Mastoids are pneumatized. IMPRESSION: 1. No acute intracranial abnormality. No significant change. Reviewed, dictated and finalized at location A.
--- NOTE | ~2022-04-30 | XR_ITS ---
EXAMINATION: XR ankle LT min 3V DATE: 05/02/2022 12:59 INDICATION: Left ankle fracture. TECHNIQUE: 3 views of left ankle were obtained. COMPARISON: Left ankle radiographs 09/03/2021, left foot radiographs 04/30/2022 FINDINGS: There is an oblique fracture of distal fibula. The distal fracture fragment demonstrates sh ortening, posterior and lateral displacement, and lateral angulation. There is a displaced fracture o f posterior malleolus. There is widening of the medial ankle mortise, consistent with deltoid ligamen t tear. There is dislocation of the tibiotalar joint. Talus demonstrates posterior displacement, late ral displacement, and lateral angulation with respect to the main proximal fracture fragment of tibia . There is an osteochondral lesion of medial talar dome. There is ankle soft tissue swelling. There i s amputation of first metatarsal. There is an enthesophyte at plantar aspect of calcaneal tuberosity. IMPRESSION: 1. Ankle fracture dislocation. 2. Osteochondral lesion of medial talar dome. Reviewed, dictated and finalized at location A.
--- NOTE | ~2022-04-30 | XR_ITS ---
EXAMINATION: XR chest 1V portable DATE: 05/02/2022 13:00 INDICATION: COVID-19 pneumonia. TECHNIQUE: A single frontal view of the chest was obtained. COMPARISON: Chest single view 04/30/2022 FINDINGS: There is no pneumonia, pleural effusion, or pneumothorax. A calcified right lung nodule and calcified right hilar lymph nodes are consistent with old granulomatous disease. The heart size is n ormal. There are changes of aortic valve replacement. Retained epicardial pacer wires are noted. IMPRESSION: 1. No acute cardiopulmonary disease. Reviewed, dictated and finalized at location A.
--- NOTE | ~2022-04-30 | XR_ITS ---
EXAMINATION: XR chest port-a-cath/central DATE: 05/06/2022 09:17 INDICATION: Central line placement. TECHNIQUE: A single frontal view of the chest was obtained. COMPARISON: Chest single view 05/05/2022 FINDINGS: The chest demonstrates clear lungs without pneumonia, pleural effusion, or pneumothorax. Th e heart size is normal. Median sternotomy wires and mediastinal surgical clips are seen, likely from prior coronary artery bypass grafting. A left internal jugular central venous catheter is seen with t ip in the right brachiocephalic vein. IMPRESSION: 1. Unchanged abnormal central line tip position directed cephalad in the right brachiocephalic vein. Reviewed, dictated and finalized at location A.
--- NOTE | ~2022-04-30 | XR_ITS ---
EXAMINATION: XR foot LT min 3V DATE: 04/30/2022 21:28 INDICATION: Sepsis. Diabetic with wound at the head of the first metatarsal TECHNIQUE: Dorsoplantar, two oblique and lateral views of the left foot were obtained. COMPARISON: 02/06/2020 FINDINGS: Smoothly corticated osteotomy margin at the site of a first transmetatarsal amputation of the great t oe. Chronic callus formation about the distal aspect of the second-fourth metatarsals along with wide adriana of the second and third metatarsophalangeal joint spaces with abnormal cortical contours and sub articular lucencies at the distal aspect of the second and third metatarsals. These findings likely r epresent sequela of either old healed fractures or additional osteotomies. Mild osteoarthritis at a f ew of the joints in the mid and forefoot. No erosions suspicious for osteomyelitis identified. There is soft tissue swelling about the left ankle were there appear to be displaced fractures of the dista l tibia and fibula with at least subluxation if not dislocation at the ankle joint but which is poorl y profiled on imaging of the foot. Chronic appearing ossicle posterior to the ankle joint which could represent either heterotopic ossification or displaced fracture fragment. IMPRESSION: 1. First transmetatarsal amputation of the great toe and additional postoperative versus posttraumati c changes at the distal aspect of the second-fourth metatarsals. No lesion suspicious for ostomy myel itis in the left foot. 2. Chronic likely ununited distal left tibia and fibula fractures with subluxation or potentially dis location at the left ankle joint. Consider dedicated left ankle radiographs for further evaluation. Reviewed, dictated and finalized at location A. IMPRESSION: 1. First transmetatarsal amputation of the great toe and additional postoperati ve versus posttraumatic changes at the distal aspect of the second-fourth metat arsals. No lesion suspicious for ostomy myelitis in the left foot. 2. Chronic likely ununited distal left tibia and fibula fractures with subluxat ion or potentially dislocation at the left ankle joint. Consider dedicated left ankle radiographs for further evaluation.
--- NOTE | 2022-04-30 15:54 | ECG_ITS ---
Measurements Intervals [place] Rate: 138 P: 0 [place]: 134 QRS: 5 QRSD: 92 T: 70 QT: 330 QTc: 500 Interpretive Statements SINUS TACHYCARDIA ATRIAL AND VENTRICULAR PREMATURE COMPLEXES LEFT VENTRICULAR HYPERTROPHY WITH ST-T CHANGE NONSPECIFIC ST & T-WAVE ABNORMALITY- HIGH LATERAL LEADS ABNORMAL ECG Electronically Signed On 04-30-2022 20:38:05 CDT by Jairo French D.O.
[2022-04-30 15:55] LABS: Glucose Point of Care 146 mg/dl (65-105)
[2022-04-30 16:08] LABS: Basophils Absolute Auto 0.1 K/mm3 (0.0-0.1); Basophils Percent Auto 0.5 % (0.2-1.2); Eosinophils Absolute Auto 0.6 K/mm3 (0-0.3); Eosinophils Percent Auto 5.8 % (0-4.4); Hematocrit 35.4 % (42.0-52.0); Hemoglobin 11.7 g/dL (14.0-18.0); Immature Granulocyte Absolute 0.06 K/mm3 (0.00-0.031); Immature Granulocyte Percent A 0.6 % (0-0.5); Mean Corpuscular HGB Conc 33.1 g/dl (32-36); Mean Corpuscular Hemoglobin 28.9 pg (26-34); Mean Corpuscular Volume 87.4 fl (80-100); Mean Platelet Volume 9.6 fl (7.4-10.4); Monocytes Absolute Auto 0.5 K/mm3 (0.1-0.6); Monocytes Percent Auto 5.3 % (2.6-8.5); Neutrophils Absolute Auto 8.6 K/mm3 (1.3-6.7); Neutrophils Percent Auto 84.8 % (45.5-73.1); Platelet Count Result 163 k/mm3 (150-375); Red Blood Count 4.05 M/mm3 (4.6-6.20); Red Cell Distribution Width 14.8 % (11.5-14.5); White Blood Count 10.1 K/mm3 (4.5-10.0)
[2022-04-30 16:18] LABS: Alanine Aminotransferase 17 U/L (6-50); Albumin Level 3.3 g/dL (3.5-5.1); Alkaline Phosphatase 173 U/L (38-126); Anion Gap 7 mmol/L (8-16); Aspartate Amino Transferase 20 U/L (17-59); Bilirubin,Total 0.6 mg/dL (0.2-1.3); Blood Urea Nitrogen 35 mg/dL (9-20); Carbon Dioxide 24 mmol/L (22-30); Chloride 102 mmol/L (98-107); Estimated CRCL calculation 9 ml/min; Estimated Glomerular Filt Rate 6; Glucose 145 mg/dL (65-110); Potassium 3.7 mmol/L (3.4-5.0); Sodium 133 mmol/L (137-145)
--- NOTE | 2022-04-30 17:14 | ED.GENADULT ---
HPI - General Adult General Chief complaint: Unspecified Stated complaint: difficulty wakling - slurred speech Time Seen by Provider: 04/30/22 17:09 Source: patient and family Limitations: clinical condition History of Present Illness HPI narrative: Patient is 56 years old white male brought to the emergency by his who is telling me that patient have multiple falls today. History of multiple falls over the last 18 months got worse today, plus general weakness, and lethargic. Patient denies any fever, chills, nausea, vomiting, abdominal pain, back pain, chest pain, headache. Last peritoneal dialysis was last night. Patient is DNR, is at the bedside. Related Data Home Medications Medication Instructions Recorded Confirmed aspirin 81 mg chewable tablet 81 mg PO DAILY 10/06/20 03/30/22 bumetanide 2 mg tablet 2 mg BID 10/20/21 03/30/22 calcitriol 0.5 mcg capsule 0.5 mcg DAILY 10/20/21 03/30/22 famotidine 40 mg tablet 40 mg DAILY 10/20/21 03/30/22 gabapentin 300 mg capsule 900 mg BID 10/20/21 03/30/22 venlafaxine 100 mg tablet 100 mg TID 10/20/21 03/30/22 atorvastatin 40 mg tablet 40 mg PO BID 04/30/22 04/30/22 Allergies Allergy/AdvReac Type Severity Reaction Status Date / Time No Known Allergies Allergy Verified 04/30/22 17:18 Review of Systems Review of Systems: All systems reviewed & are unremarkable except as noted in HPI and below PMFSH Past Medical History Medical History Arthritis Bicuspid aortic valve Severe aortic stenosis status post bioprosthetic aortic valve replacement. Cerebrovascular accident (~09/21/20) Thought to be embolic in nature, on long-term anticoagulation. Residual dysarthria. 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 Required temporary dialysis for a few months in spring 2019. Combined systolic and diastolic congestive heart failure Echocardiogram dated 11/03/2020 showed mildly enlarged left ventricular chamber with normal left ventricular systolic function and ejection fraction of 55 to 60% (as low as 35% on previous echos), moderate increased LV wall thickness, grade 3 diastolic dysfunction, and mild mitral and tricuspid valve regurgitation. Diabetic foot ulcer Dialysis patient Essential hypertension Finger fracture Former smoker 50 pack year smoking history, quit in 1987. Gastroesophageal reflux disease Hiatal hernia History of hemodialysis History of acute kidney injury on chronic kidney disease requiring hemodialysis in 2019. He has had a right IJ temporary dialysis catheter placed in 01/2020 and then a tunneled dialysis catheter in 02/2020, which was removed in 05/2020. History of osteomyelitis Impingement syndrome of left shoulder Insulin dependent type 2 diabetes mellitus Complicated by nephropathy, neuropathy, and retinopathy. Mixed hyperlipidemia Peripheral vascular disease Pneumonia Surgical History Surgical History Amputation of left great toe (~2019) Secondary to osteomyelitis. History of aortic valve replacement (~07/24/20) 25 mm Inspiris bioprosthetic valve per Dr. Nam Daniels at [facility]. History of carpal tunnel release History of coronary artery bypass graft x 1 (~07/24/20) Saphenous vein graft to obtuse marginal per Dr. Nam Daniels at [facility]. History of tonsillectomy Family History Family History Mother Family history of arthritis Family history of diabetes mellitus in first degree relative Family history of malignant neoplasm of breast in first degree relative Family history of coronary artery disease Alive and well Hypertension Father Malignant neoplasm of prostate Hypertension Sibling Family history of diabetes mellitus in first degree relative Sibl
[2022-04-30] MEDS: LABETALOL HCL INJ 100 MG/20 ML VIAL 20 MG IV PUSH ×2 (17:24→19:27)
--- NOTE | 2022-04-30 17:24 | PC.NURSE ---
Note after Labatelol given IVP that pt's heart rate dropped to 105, b/p decreased to 187/86, and pulse oximetery dropped to 83%. 02 placed at 2L with pulse oximetry 90%, 02 increased to 4L/NC. Dr. Abarca aware and at bedside. Limits systolic bp at 160. Per pt's spouse he is a DNR.
[2022-04-30 17:56] LABS: Appearance Urine Clear (Clear); Bilirubin Urine Negative (Negative); Blood Urine 2+ (Negative); Color Urine Yellow (Yellow); Glucose Urine UA 1+ mg/dL (Negative); Ketones Urine Negative (Negative); Leukocyte Esterase Ur Negative LEU/UL (Negative); Nitrate Urine Negative (Negative); Protein Urine 3+ mg/dL (Negative); Urobilinogen Urine 0.2 mg/dL (<2.0); pH Urine 8.5 (5.0-9.0)
[2022-04-30 17:59] LABS: WBC Urine 0-3 /hpf
--- NOTE | 2022-04-30 18:02 | PC.NURSE ---
conservation technician attempting to draw blood cultures. BP cuff readjusted. Pt uses urinal and states voids occasionally.
[2022-04-30 18:33] LABS: Add Urine Microscopic? YES
[2022-04-30 18:46] LABS: INR 1.3; Prothrombin Time 15.4 Seconds (11.1-14.7)
[2022-04-30 18:47] LABS: CRP 4.2 mg/dL (<1.0); Partial Thromboplastin Time 29.6 SECONDS (22.3-36.8)
[2022-04-30 19:01] LABS: Alveolar/Arterial O2 Gradient 97.3 mmHg; Base Excess ABG 0.7 mEq/l (+/-2.0); Fractional Inspired Oxygen 28 %; HCO3 ABG 23.6 mEq/l (22.0-26.0); Oxygen Saturation ABG 94.1 % (95.0-100.0); Oxyhemoglobin 91.8 % THb (90.0-100.0); PCO2 ABG 32.4 mmHg (35.0-45.0); PO2 ABG 64.1 mmHg (80.0-100.0); PO2 FiO2 Ratio Arterial Blood 2.29 %; Total Hemoglobin 12.4 g/dL (12.0-18.0)
[2022-04-30 19:03] LABS: Device NASAL CANNULA; Site Drawn LEFT RADIAL
[2022-04-30 19:05] LABS: Lactic Acid Reflex 3.3 mmol/L (0.7-2.0)
[2022-04-30 19:10] LABS: SARS-CoV-2 RNA PCR Positive
--- NOTE | 2022-04-30 19:10 | PC.NURSE ---
Assumed care of pt at this time. Pt supine on stretcher, on 2L NC. Pt responsive to verbal stimuli, A&Ox2. Family updated on POC.
--- NOTE | 2022-04-30 19:15 | PC.NURSE ---
Report to JESENIA Harrison, to continue care.
--- NOTE | 2022-04-30 19:30 | PM.IMHP ---
H&P: HPI History of Present Illness Date/Time: 04/30/22 19:30 Chief Complaint: Weakness. Narrative: This is a 56-year-old male with with multiple medical problems including end-stage renal disease on peritoneal dialysis, insulin-dependent type 2 diabetes mellitus, peripheral vascular disease, hypertension, systolic and diastolic congestive heart failure, and other comorbidities presented to the emergency department via private vehicle from home for evaluation of weakness. He is able to provide some history however his gave a majority of the following history, with the patient's permission. He tested positive for COVID-19 the 1st week of March 2022 and he had monoclonal antibody infusions on 03/30/22. Other than a mild cough and some sniffles, he really did not have any symptoms. Yesterday he seemed to be in his usual state of health however this morning he seemed to be more weak and he has been sleeping a majority of the day. He has also had several falls and his goes on to say it is not unusual for him to fall every day due to chronic balance problems from diabetes in addition to what sounds like orthostatic hypotension. He was hypertensive on arrival to the emergency department with blood pressures as high as 238/125. He has received several doses of IV labetalol with improvement in his blood pressures. With further questioning, the patient's states that they were told to stop taking his antihypertensives by his candy attendant last month though she cannot provide any further details. He was tachycardic and tachypneic though afebrile on arrival however his temperature spiked to 104.2? F several hours after he arrived here today. Chest x-ray shows diffuse bilateral disease which may represent edema or pneumonia and his SARS-CoV-2 by PCR was positive. He does endorse having a mild, nonproductive cough but he has no other complaints. He specifically denies headache, sinus congestion, sore throat, chest pain, shortness breast, abdominal pain, nausea, vomiting, diarrhea, and dysuria (he still urinates a small amount). He has a chronic sore on his right foot which is unchanged. No sick contacts. Review of Systems Review of Systems: Twelve systems were reviewed and were negative as per HPI. [facility] Past Medical History Medical History (Updated 04/30/22 @ 23:28 by Hiwot Santiago PA-C) Arthritis Bicuspid aortic valve Severe aortic stenosis status post bioprosthetic aortic valve replacement. Cerebrovascular accident (09/21/20) Thought to be embolic in nature, on long-term anticoagulation. Residual dysarthria. 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 Required temporary dialysis for a few months in spring 2019. Combined systolic and diastolic congestive heart failure Echocardiogram dated 11/03/2020 showed mildly enlarged left ventricular chamber with normal left ventricular systolic function and ejection fraction of 55 to 60% (as low as 35% on previous echos), moderate increased LV wall thickness, grade 3 diastolic dysfunction, and mild mitral and tricuspid valve regurgitation. Diabetic foot ulcer Dialysis patient End-stage renal disease on peritoneal dialysis Essential hypertension Finger fracture Former smoker 50 pack year smoking history, quit in 1987. Gastroesophageal reflux disease Hiatal hernia History of hemodialysis History of acute kidney injury on chronic kidney disease requiring hemodialysis in 2019. He has had a right IJ temporary dialysis catheter placed in 01/2020 and then a tunneled dialysis catheter in 02/2020, which was removed in 05/2020. History of osteomyelitis Impingement syndrome of left shoulder Insulin dependent type 2 diabetes mellitus Complicated by nephropathy, neuropathy, and retinopathy. Mixed hyperlipidemia Peripheral vascular disease Pneumonia Surgical Histor
[2022-04-30] MEDS: SODIUM CHLORIDE 0.9% IV 1,000 ML 999 ML IV CONT (19:42)
--- NOTE | 2022-04-30 20:00 | PC.NURSE ---
Attempted to give repot to RITA at this time. Receiving RN is in a pt room, will call back when available.
[2022-04-30 20:53] LABS: Procalcitonin 16.7 ng/mL
--- NOTE | 2022-04-30 21:10 | PC.NURSE ---
Per Infection Control Nurse, Parvin Avery, patient no longer needs isolation given symptom onset being several weeks ago. Parvin Avery aware of positive chest xray and positive fever.
[2022-04-30 21:14] LABS: Estimated CRCL calculation 9 ml/min; Estimated Glomerular Filt Rate 6
[2022-04-30 21:53] LABS: Reflex Lactic Acid Yes or No Add Lactic
--- NOTE | 2022-04-30 22:00 | ADMGEN ---
This patient, Pankaj Bautista, was admitted to Intensive Care Unit-4 at 2031. Patient/family oriented to hospital policies and general routines including ID bracelet, bed and alarms, visiting hours, pain management, procedures, bathroom and other care routines, personal items, smoking policy, room service/diet, and visiting hours. Information on how to activate the Rapid Response Team has been discussed. Patient/Family are encouraged to report perceived risks to care and to ask questions if they do not understand what they are told or what they should do.
[2022-04-30 22:07] LABS: Magnesium 1.6 mg/dL (1.6-2.3)
[2022-04-30 22:17] LABS: Hemoglobin A1C 5.2 % (<5.7); NT Pro B Type Natriuretic Pept > 35000 pg/mL (5-100)
[2022-04-30 22:36] LABS: Lactic Acid Reflex 2.7 mmol/L (0.7-2.0)
[2022-04-30] MEDS: SODIUM CHLORIDE 0.9% IV 1,000 ML 250 ML IV CONT (23:48)
[2022-04-30] MEDS: NIFEdipine 30 MG TAB.ER.24 PO (23:54)
[2022-04-30] MEDS: carvediloL 12.5 MG TABLET PO (23:59)
[2022-05-01] VITALS (22 sets, daily range): BP systolic 94–205; BP diastolic 59–105; PULSE 86–118; RESP 14–26; TEMP 36.5–39.2; O2SAT 93–99
[2022-05-01 04:21] LABS: Basophils Absolute Auto 0.1 K/mm3 (0.0-0.1); Basophils Percent Auto 0.4 % (0.2-1.2); Eosinophils Absolute Auto 0.1 K/mm3 (0-0.3); Eosinophils Percent Auto 0.6 % (0-4.4); Hematocrit 29.1 % (42.0-52.0); Hemoglobin 9.4 g/dL (14.0-18.0); Immature Granulocyte Absolute 0.05 K/mm3 (0.00-0.031); Immature Granulocyte Percent A 0.4 % (0-0.5); Immature Platelet Fraction Pct 2.7 % (0.9-11.2); Lymphocytes Absolute Auto 0.34 K/mm3 (0.9-3.2); Lymphocytes Percent Auto 2.5 % (18.3-44.2); Mean Corpuscular HGB Conc 32.3 g/dl (32-36); Mean Corpuscular Volume 89.8 fl (80-100); Monocytes Absolute Auto 0.6 K/mm3 (0.1-0.6); Monocytes Percent Auto 4.6 % (2.6-8.5); Neutrophils Absolute Auto 12.3 K/mm3 (1.3-6.7); Neutrophils Percent Auto 91.5 % (45.5-73.1); Platelet Count Result 141 k/mm3 (150-375); Red Blood Count 3.24 M/mm3 (4.6-6.20); Red Cell Distribution Width 14.7 % (11.5-14.5); White Blood Count 13.4 K/mm3 (4.5-10.0)
[2022-05-01 04:37] LABS: Anion Gap 5 mmol/L (8-16); Blood Urea Nitrogen 42 mg/dL (9-20); Carbon Dioxide 23 mmol/L (22-30); Chloride 103 mmol/L (98-107); Estimated CRCL calculation 9 ml/min; Estimated Glomerular Filt Rate 6; Glucose 153 mg/dL (65-110); Potassium 3.9 mmol/L (3.4-5.0); Sodium 131 mmol/L (137-145)
--- NOTE | 2022-05-01 08:36 | WPDCNINT ---
Assessment and Plan Assessment and plan (1) Sepsis: Code(s): A41.9 - Sepsis, unspecified organism Status: Acute Assessment and Plan: Patient presented with presentation consistent with sepsis close etiology is not completely clear Patient was febrile Chest x-ray did show diffuse bilateral infiltrates but appear to be more consistent with pulmonary edema UA was negative He is on peritoneal dialysis but does not have any abdominal tenderness and patient's does not report change in the color peritoneal fluid Blood cultures are ordered Will check peritoneal fluid cell count and cultures Urine Legionella and pneumococcal antigen ordered Continue empiric vancomycin cefepime and Levaquin He is also positive COVID-19 His lactic acid has improved He was not given liberal amount of IV fluids due his history of congestive heart failure and ESRD (2) COVID-19: Code(s): U07.1 - COVID-19 Status: Acute Assessment and Plan: Patient was tested positive for COVID-19 on 23 March 2022. Per patient received monoclonal antibody but did not receive any dexamethasone or any other treatment. He was symptomatic with coughing and fever but never required any oxygen Patient is again positive COVID-19 PCR on presentation to ER He was requiring 2 L of oxygen hence he was started on dexamethasone Continue isolation Not a candidate for remdesivir due to renal failure (3) Combined systolic and diastolic congestive heart failure: Code(s): I50.40 - Unspecified combined systolic (congestive) and diastolic (congestive) heart failure Status: Acute Assessment and Plan: Will continue peritoneal dialysis to remove fluid Echocardiogram reviewed Continue diuretics, Coreg, lisinopril and aspirin (4) Hypertensive urgency: Code(s): I16.0 - Hypertensive urgency Status: Acute Assessment and Plan: Improved with resumption of his p.o. medications and IV labetalol (5) End-stage renal disease on peritoneal dialysis: Code(s): N18.6 - End stage renal disease; Z99.2 - Dependence on renal dialysis Status: Acute Assessment and Plan: Patient is on peritoneal dialysis Nephrology has been consulted for subjective peritoneal dialysis Electrolytes are acceptable and will be monitored Continue home dose of diuretics as patient still produces some monitor urine (6) Diabetes: Code(s): E11.9 - Type 2 diabetes mellitus without complications Status: Chronic Assessment and Plan: Sliding scale insulin (7) Pneumonia: Code(s): J18.9 - Pneumonia, unspecified organism Status: Acute Assessment and Plan: See above (8) Diabetic foot ulcer: Code(s): E11.621 - Type 2 diabetes mellitus with foot ulcer; L97.509 - Non-pressure chronic ulcer of other part of unspecified foot with unspecified severity Status: Acute Assessment and Plan: Does not appear infected X-ray ordered Already on broad-spectrum antibiotics Plan DVT prophylaxis -subcu Lovenox Stress ulcer prophylaxis -patient is already on Pepcid Nutrition -renal diet Code Status -spoke to patient's and she states the patient expressed his wishes to her and wanted to be DNR DNI. Code status change in the chart as per patient's wishes Total Critical Care Time - 35 minutes Due to a high probability of clinically significant, life threatening deterioration, the patient required my highest level of preparedness to intervene emergently and I personally spent this critical care time directly and personally managing the patient. This critical care time included obtaining a history; examining the patient; pulse oximetry; ordering and review of studies; arranging urgent treatment with development of a management plan; evaluation of patient's response to treatment; frequent reassessment; and discussions with other providers. It was exclusive of separately billable procedures and treating other patients
[2022-05-01] MEDS: ENOXAPARIN 30 MG/0.3 ML SYRINGE SUB-Q (09:29)
[2022-05-01] MEDS: CALCIUM ACETATE 667 MG TABLET 1334 MG PO ×3 (09:30→16:49)
[2022-05-01] MEDS: carvediloL 12.5 MG TABLET PO ×2 (09:30→20:19)
[2022-05-01] MEDS: ATORVASTATIN 40 MG TABLET PO ×2 (09:31→16:51)
[2022-05-01] MEDS: BUMETANIDE 1 MG TABLET 2 MG PO ×2 (09:31→16:50)
[2022-05-01] MEDS: calcitrioL 0.25 MCG CAPSULE 0.5 MCG PO (09:31)
--- NOTE | 2022-05-01 09:31 | PM.IMPN ---
Progress Note: A&P Assessment and Plan (1) Sepsis: Code(s): A41.9 - Sepsis, unspecified organism Status: Acute Assessment and Plan: Patient with sepsis with septicemia present on admission with fever, tachycardia, lactic acidosis, leukocytosis and now positive blood cultures. Patient was fisher cultured. Chest x-ray shows diffuse lung disease pneumonia versus edema. Was started on broad-spectrum IV antibiotics. Blood cultures have returned positive with Gram-positive cocci in clusters in 2 bottles. Patient is COVID positive but more likely related to recent infection. Peritonitis is possible source although no abdominal pain at this time. Agree that more likely patient has secondary bacterial pneumonia related to recent COVID infection. He was not given liberal amount of IV fluids due his history of congestive heart failure and ESRD. Fever has resolved. Tachycardia has improved. He has been weaned to room air. Continue IV antibiotics. Follow-up on blood cultures. These will need to be repeated. (2) COVID-19: Code(s): U07.1 - COVID-19 Status: Acute Assessment and Plan: Patient tested positive for COVID-19 on 03/23/22. Patient received monoclonal antibody but did not receive any other treatment. He was symptomatic with coughing and fever but never required any oxygen. Patient is again positive COVID-19 PCR on presentation here. He was requiring 2 L of oxygen hence he was started on dexamethasone. Able to be weaned to room air. Continue isolation. Continue Dexamethasone. Not a candidate for remdesivir due to renal failure. (3) Pneumonia: Code(s): J18.9 - Pneumonia, unspecified organism Status: Acute Assessment and Plan: See above. (4) Congestive heart failure (CHF): Qualifiers: Heart failure chronicity: acute Heart failure type: unspecified Qualified Code(s): I50.9 - Heart failure, unspecified Code(s): I50.9 - Heart failure, unspecified Status: Acute Assessment and Plan: CXR could be consistent with pulmonary edema. BNP>35K. Will continue peritoneal dialysis to control fluid status. Echo from 01/05/21 showing EF 60%, LAE and normal AV bioprosthesis. Continue diuretics, Coreg, lisinopril and aspirin. (5) Hypertensive urgency: Code(s): I16.0 - Hypertensive urgency Status: Acute Assessment and Plan: Patient had been off of his antihypertensive medications for about a month prior to admission according to the notes. Blood pressure on admission was extremely high up to 238/125. He was given IV labetalol and resumed on his home medications. Patient's blood pressure has responded. Continue to adjust medications accordingly. (6) End-stage renal disease on peritoneal dialysis: Code(s): N18.6 - End stage renal disease; Z99.2 - Dependence on renal dialysis Status: Acute Assessment and Plan: Patient is on peritoneal dialysis. Nephrology has been consulted for peritoneal dialysis. Electrolytes are acceptable and will be monitored. Will need peritoneal cultures. Continue home dose of diuretics as patient still produces urine. (7) Diabetes: Code(s): E11.9 - Type 2 diabetes mellitus without complications Status: Chronic Assessment and Plan: A1c 5.2. The patient's blood glucose was reviewed on 05/01 Glucose remains well controlled. Continue AccuCheks covering with sliding scale. Hypoglycemia protocol available as needed. Continue to monitor (8) Diabetic foot ulcer: Code(s): E11.621 - Type 2 diabetes mellitus with foot ulcer; L97.509 - Non-pressure chronic ulcer of other part of unspecified foot with unspecified severity Status: Acute Assessment and Plan: Right plantar wound examined and does not appear to be infected. X-ray ordered. Continue broad-spectrum antibiotics. Will consult wound care nurse. Plan DVT prophylaxis - Lovenox Stress ulcer prophylaxis - Pe
[2022-05-01] MEDS: VENLAFAXINE HCL 25 MG TABLET 100 MG PO ×2 (09:32→16:50)
[2022-05-01] MEDS: lisinopriL 20 MG TABLET PO ×3 (09:32→16:52)
[2022-05-01] MEDS: NIFEdipine 30 MG TAB.ER.24 PO (09:32)
[2022-05-01] MEDS: SILVERGEL (ELTA) 45 ML 1 APPLIC TOPICAL (09:36)
--- NOTE | 2022-05-01 09:58 | PM.CNNEP ---
Assessment and Plan Additional Plan 1. The patient has end-stage renal disease. He is on peritoneal dialysis. They were unable due to the dialysis last night because of staffing. He will get dialysis this morning during the day and then will get his usual nocturnal dialysis and continue nocturnal treatments from then on. Because he had a little belly pain the other day we will check a fluid cell count and culture. However he does not have any belly pain or tenderness. The site looks okay. And is nontender. His volume status looks pretty good. Did have a lot of swelling. His lungs sound okay however his chest x-ray does have infiltrates. This could be from the COVID or could be from fluid. Try taken some fluid off with dialysis. 2. The patient hypertension. His blood pressure is generally controlled with amlodipine, hydralazine, lisinopril. I note that none of these are on his outpatient med list. He is on nifedipine and lisinopril now. Will leave these on board since his blood pressure is well controlled. 3. The patient has COVID-19. He had a month ago as well. Is not clear if these are just remnants or if this is a new infection or persistent infection. He did have hypoxia last night any does have pulmonary infiltrates which are suggestive. He is getting dexamethasone just in case. 4. He has diabetes. 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 5. He had a stroke. No new events. 6. Has renal osteodystrophy. Will check a phosphorus level in the morning. 7. He has anemia. His hemoglobin is 9.4 today. Will recheck this in the morning. That his blood pressure is better we can give him some EPO. 8. CHF. Patient has no symptoms but will remove fluid. History of Present Illness Reason for Consult Consult date: 05/01/22 Chief Complaint Chief complaint: COVID-pneumonia,Uncontrolled Hypertension, Sepsis History of Present Illness Narrative: Pankaj is a very pleasant 56-year-old gentleman who has multiple medical problems including end-stage renal disease on peritoneal dialysis nightly, diabetes, stroke, aortic stenosis status post bioprosthetic valve replacement, systolic and diastolic heart failure, former smoker, GERD, hiatal hernia, diabetes, neuropathy, retinopathy, peripheral vascular disease, anemia, hyperlipidemia. The patient has had several problems in the last few weeks. He has been gradually weaker and has been falling. His legs just collapse from below him. He does not get dizzy lightheaded or trip. He says it was happening just occasionally over the last few weeks but then over the last few days it was more often in became weaker. Also he has had a little bit of a cough but not much shortness of breath. The patient came the emergency room and is found to have a blood pressure it was 238/125. He had hypoxia as well. He was given some oxygen and blood pressure pills. He was swabbed for COVID and was positive. His placed on respiratory isolation. Because of the high blood pressure was admitted to the ICU. Currently his breathing is much better. His blood pressure is down to normal. He still has a little bit of a cough. He is still weak. He mentions that had a little bit of a lower abdominal discomfort the other day but does not have any now. He is not tender. His dialysis has been going well. His fluid has been clear and his flows have been good. He has not had any cloudy bags. His sugars have been good. Review of Systems Constitutional: Constitutional: Reports no additional constitutional complaints Eyes: Eyes: Reports no additional eye complaints ENT: Reports system reviewed and no additional complaints, except as documented Cardiovascular: Cardiovascular: Reports no additional cardiovascular complaints Respiratory: Respiratory: Reports no additional respiratory complaints Gastrointestinal: Gastrointestinal: Reports no additional gastrointestinal complaints Genitourinary: Sara
[2022-05-01] MEDS: ASPIRIN 81 MG CHEWABLE TABLET PO (10:01)
[2022-05-01] MEDS: GABAPENTIN 300 MG CAPSULE 900 MG PO ×2 (10:05→16:51)
[2022-05-01] MEDS: INSULIN ASPART (*BKC) 100 UNITS/ML SUB-Q (10:07)
[2022-05-01 10:13] LABS: Glucose Point of Care 212 mg/dl (65-105)
[2022-05-01 12:45] LABS: Glucose Point of Care 187 mg/dl (65-105)
--- NOTE | 2022-05-01 13:39 | PC.NURSE ---
Addendum entered by Vannessa Camilo RN 05/01/22 13:51: correction to note: orthostatic vital signs Original Note: Pt became very weak upon standing for orthopedic vital signs. Legs became shaky and patient was unable to maintain an upright position. Pt was lowered to side of bed. Poorly tolerates standing for even short periods of time.
[2022-05-01 16:13] LABS: Appearance Peritoneal Fluid Cloudy (Clear); Color Peritoneal Fluid Colorless (Colorless); Source Peritoneal Fluid Peritoneal Fluid
[2022-05-01 16:14] LABS: Lymphocytes Peritoneal Fluid 6 %; Monocytes Peritoneal Fluid 14 %; Neutrophils Peritoneal Fluid 80 % (0-25); Nucleated Cells Peritoneal Flu 1702 /uL (0-500); RBC Peritoneal Fluid 0 /uL (0-100000)
[2022-05-01 17:04] LABS: Glucose Point of Care 160 mg/dl (65-105)
[2022-05-01 19:37] LABS: Hepatitis B Surface Antigen Negative (Negative)
[2022-05-01 19:54] LABS: Hepatitis B Surface Anti Res Negative
[2022-05-02] VITALS (21 sets, daily range): BP systolic 113–152; BP diastolic 77–122; PULSE 70–91; RESP 11–20; TEMP 36.3–37; O2SAT 94–100
--- NOTE | 2022-05-02 | ECHO_ITS ---
Patient Info Name: Pankaj Bautista Age: 56 years : 1965 Gender: Male Ht: 70 in Wt: 209 lbs BSA: 2.19 m2 HR: 73 bpm BP: 125 / 86 mmHg Heart Rhythm: Sinus Rhythm Technical Quality: Fair Exam Date: 05/02/2022 2:24 PM Exam Location: [facility] Patient Status: Inpatient Admit Date: 04/30/2022 Staff Ordering Physician: Eulogio Mendoza MD Stone Circular Sawyer: Eli Pierce RDCS Attending Provider: Eulogio Mendoza MD Exam Type: CA echo doppler color flow Study Info Indications - bacteremia with staph Complete two-dimensional, color flow and Doppler transthoracic echocardiogram is performed. Summary 1. Complete two-dimensional, color flow and Doppler transthoracic echocardiogram is performed. 2. Left ventricular chamber dimension is normal. 3. Left ventricular systolic function is mildly reduced, estimated at 45-50%. 4. There is mildly increased left ventricular wall thickness. 5. The left ventricular diastolic function is abnormal. 6. E/e' 19 is elevated. 7. Left atrial chamber dimension is mildly enlarged. 8. The bioprosthetic aortic valve is not well visualized. 9. There is moderate sclerosis of the bioprosthetic aortic valve leaflets. 10. The mitral valve has moderately calcified posterior leaflet and moderately calcified annulus. 11. Small mobile mitral valve vegetation measuring 1.2 cm by 0.6 cm that is attached to posterior mitral valve leaflet suggestive of endocarditis. 12. There is mild mitral valve regurgitation. 13. There is trace tricuspid valve regurgitation. 14. No pulmonary hypertension, estimated pulmonary arterial systolic pressure is 20 mmHg. 15. The aortic root size at the sinus of Valsalva is borderline dilated at 4.0 cm. Left Ventricle E/e' 19 is elevated. Left ventricular chamber dimension is normal. Left ventricular systolic function is mildly reduced, estimated at 45-50%. There is mildly increased left ventricular wall thickness. The left ventricular diastolic function is abnormal. Right Ventricle Right ventricular systolic function is normal and with normal TAPSE 1.7 cm. Right ventricular chamber dimension is normal. Left Atria Left atrial chamber dimension is mildly enlarged. Right Atria Right atrial chamber dimension is normal. Aortic Valve There is no obvious aortic valve regurgitation. The bioprosthetic aortic valve is not well visualized. There is moderate sclerosis of the bioprosthetic aortic valve leaflets. There is no bioprosthetic aortic valve stenosis. There is no regurgitation of the bioprosthetic aortic valve. No bioprosthetic aortic valve vegetation visualized. Pulmonic Valve There is no pulmonic regurgitation. No pulmonic valve vegetation visualized. Mitral Valve The mitral valve has moderately calcified posterior leaflet and moderately calcified annulus. Small mobile mitral valve vegetation measuring 1.2 cm by 0.6 cm that is attached to posterior mitral valve leaflet suggestive of endocarditis. There is mild mitral valve regurgitation. Tricuspid Valve There is trace tricuspid valve regurgitation. No pulmonary hypertension, estimated pulmonary arterial systolic pressure is 20 mmHg. No tricuspid valve vegetation visualized. Pericardium/Pleural There is no pericardial effusion. Inferior Vena Cava Normal inferior vena cava with >50% collapse upon inspiration consistent with normal right atrial pressure, 5 mmHg. Aorta The aortic root size at the sinus of Valsalva is borderline dil
[2022-05-02 05:22] LABS: Hemoglobin 9.4 g/dL (14.0-18.0); Mean Corpuscular HGB Conc 33.6 g/dl (32-36); Mean Corpuscular Hemoglobin 29.1 pg (26-34); Mean Corpuscular Volume 86.7 fl (80-100); Mean Platelet Volume 10.8 fl (7.4-10.4); Platelet Count Result 155 k/mm3 (150-375); Red Blood Count 3.23 M/mm3 (4.6-6.20); Red Cell Distribution Width 14.4 % (11.5-14.5); White Blood Count 13.6 K/mm3 (4.5-10.0)
[2022-05-02 05:33] LABS: Alanine Aminotransferase 12 U/L (6-50); Albumin Level 2.5 g/dL (3.5-5.1); Alkaline Phosphatase 145 U/L (38-126); Anion Gap 6 mmol/L (8-16); Aspartate Amino Transferase 17 U/L (17-59); Bilirubin,Total 0.2 mg/dL (0.2-1.3); Blood Urea Nitrogen 51 mg/dL (9-20); Calcium 8.8 mg/dL (8.4-10.2); Carbon Dioxide 26 mmol/L (22-30); Chloride 98 mmol/L (98-107); Estimated CRCL calculation 9 ml/min; Estimated Glomerular Filt Rate 6; Glucose 160 mg/dL (65-110); Magnesium 1.8 mg/dL (1.6-2.3); Phosphorus 4.8 mg/dL (2.5-4.5); Potassium 3.3 mmol/L (3.4-5.0); Sodium 130 mmol/L (137-145)
[2022-05-02 09:18] LABS: Glucose Point of Care 229 mg/dl (65-105)
--- NOTE | 2022-05-02 10:00 | P.PNNP_ITS ---
Progress Note: A&P Assessment and Plan (1) End stage renal disease: Code(s): N18.6 - End stage renal disease Status: Chronic Assessment and Plan: * resumed on CCPD every night * follow electrolytes, volume status, and clearacne (2) Sepsis: Code(s): A41.9 - Sepsis, unspecified organism Status: Acute Assessment and Plan: * as noted by presentation with fever + tachycardia + lactic acidosis + elevated WBC along with positive blood cultures * blood cultures with Staphylococcus aureus * PD fluid indicative of peritonitis * COVID positive as well * source - pneumiona versus peritonitis versus other(?) * follow repeat blood cultures and PD fluid cultures * continue IV antibiotics * follow-up on Echo (and may need SVETLANA to r/o endocarditis) * follow trend of hemodynamics (3) Peritonitis: Code(s): K65.9 - Peritonitis, unspecified Status: Acute Assessment and Plan: * as suggested by PD fluid: * 1700 nucleated cells with 80% neutrophils * peritoneal fluid cutures pending * continue antibiotics (4) COVID-19: Code(s): U07.1 - COVID-19 Status: Acute Assessment and Plan: * test positive on 03/23/22 * received monoclonal antibody therapy * tested positive again on this hospital presentation * started on steroids * weaned to room air (5) Anemia: Code(s): D64.9 - Anemia, unspecified Status: Chronic Assessment and Plan: * due to ESRD and likely worsened by sepsis/infection * on Epogen 3x/week * follow H/H (6) Congestive heart failure (CHF): Qualifiers: Heart failure chronicity: acute Heart failure type: unspecified Qualified Code(s): I50.9 - Heart failure, unspecified Code(s): I50.9 - Heart failure, unspecified Status: Acute Assessment and Plan: * known history of this * CXR could be consistent with fluid/pulmonary edema * continue to push fluid removal with peritoneal dialysis * continue diuretics (7) Diabetes: Code(s): E11.9 - Type 2 diabetes mellitus without complications Status: Chronic Assessment and Plan: * follow accuchecks * on SSI Will continue to follow. Subjective Date/time seen: 05/02/22 10:00 Chart reviewed - assuming care from Dr. Colindres; appears to be doing much better in comparison to admission; no further fevers and tachycardia has resolved; no apparent distress voiced at the the time of my visit; blood pressure seems stable as well. Exam Narrative: General: WD/WN male in NAD Heart: normal S1 and S2; no rub Lungs: clear to auscultation Abdomen: soft, nontender, nondistended, positive bowel sounds Extremities: no cyanosis or clubbing; no edema; left foot/ankle deformity Skin: warm and dry Objective Data Vital Signs Vital Signs: Vital Signs Temp Pulse Resp BP Pulse Ox O2 Del Method 05/02/22 09:07 36.8 C 81 14 147/96 H 05/02/22 08:00 36.8 C 81 14 147/96 H 96 05/02/22 06:00 82 05/02/22 04:00 82 05/02/22 03:53 36.4 C 80 13 113/77 96 05/02/22 03:18 83 19 100 Room Air 05/02/22 02:00 84 05/02/22 00:00 91 05/02/22 00:00 37.0 C 88 17 118/83 99 07/10
--- NOTE | 2022-05-02 10:00 | PM.PNNEP ---
Progress Note: A&P Assessment and Plan (1) End stage renal disease: Code(s): N18.6 - End stage renal disease Status: Chronic Assessment and Plan: resumed on CCPD every night follow electrolytes, volume status, and clearacne (2) Sepsis: Code(s): A41.9 - Sepsis, unspecified organism Status: Acute Assessment and Plan: as noted by presentation with fever + tachycardia + lactic acidosis + elevated WBC along with positive blood cultures blood cultures with Staphylococcus aureus PD fluid indicative of peritonitis COVID positive as well source - pneumiona versus peritonitis versus other(?) follow repeat blood cultures and PD fluid cultures continue IV antibiotics follow-up on Echo (and may need SVETLANA to r/o endocarditis) follow trend of hemodynamics (3) Peritonitis: Code(s): K65.9 - Peritonitis, unspecified Status: Acute Assessment and Plan: as suggested by PD fluid: 1700 nucleated cells with 80% neutrophils peritoneal fluid cutures pending continue antibiotics (4) COVID-19: Code(s): U07.1 - COVID-19 Status: Acute Assessment and Plan: test positive on 03/23/22 received monoclonal antibody therapy tested positive again on this hospital presentation started on steroids weaned to room air (5) Anemia: Code(s): D64.9 - Anemia, unspecified Status: Chronic Assessment and Plan: due to ESRD and likely worsened by sepsis/infection on Epogen 3x/week follow H/H (6) Congestive heart failure (CHF): Qualifiers: Heart failure chronicity: acute Heart failure type: unspecified Qualified Code(s): I50.9 - Heart failure, unspecified Code(s): I50.9 - Heart failure, unspecified Status: Acute Assessment and Plan: known history of this CXR could be consistent with fluid/pulmonary edema continue to push fluid removal with peritoneal dialysis continue diuretics (7) Diabetes: Code(s): E11.9 - Type 2 diabetes mellitus without complications Status: Chronic Assessment and Plan: follow accuchecks on SSI Will continue to follow. Subjective Date/time seen: 05/02/22 10:00 Chart reviewed - assuming care from Dr. Colindres; appears to be doing much better in comparison to admission; no further fevers and tachycardia has resolved; no apparent distress voiced at the the time of my visit; blood pressure seems stable as well. Exam Narrative: General: WD/WN male in NAD Heart: normal S1 and S2; no rub Lungs: clear to auscultation Abdomen: soft, nontender, nondistended, positive bowel sounds Extremities: no cyanosis or clubbing; no edema; left foot/ankle deformity Skin: warm and dry Objective Data Vital Signs Vital Signs: Vital Signs Temp Pulse Resp BP Pulse Ox O2 Del Method 05/02/22 09:07 36.8 C 81 14 147/96 H 05/02/22 08:00 36.8 C 81 14 147/96 H 96 05/02/22 06:00 82 05/02/22 04:00 82 05/02/22 03:53 36.4 C 80 13 113/77 96 05/02/22 03:18 83 19 100 Room Air 05/02/22 02:00 84 05/02/22 00:00 91 05/02/22 00:00 37.0 C 88 17 118/83 99 05/01/22 23:35 92 15 94 Room Air 05/01/22 22:00 93 05/01/22 22:00 93 22 H 98 05/01/22 20:00 99 05/01/22 20:00 36.9 C 93 21 H 131/80 93 05/01/22 20:00 93 14 98 Room Air 05/01/22 20:19 93 05/01/22 18:00 94 14 129/88 98 05/01/22 18:00 94 05/01/22 16:00 92 19 97 Room Air 05/01/22 16:48 36.7 C 96 16 122/83 94 05/01/22 16:00 92 15 122/83 95 05/01/22 16:00 94 05/01/22 14:00 93 16 121/77 95 05/01/22 14:00 94 05/01/22 13:07 103 H 94/59 L 05/01/22 13:07 92 109/73 05/01/22 13:06 93 111/76 05/01/22 11:30 37.1 C 94 19 134/82 94 05/01/22 12:00 95 05/01/22 12:00 95 18 129/85 96 05/01/22 11:59 95 20 97 Room
[2022-05-02] MEDS: INSULIN ASPART (*BKC) 100 UNITS/ML SUB-Q (10:39)
[2022-05-02] MEDS: SILVERGEL (ELTA) 45 ML 1 APPLIC TOPICAL (10:40)
[2022-05-02] MEDS: ASPIRIN 81 MG CHEWABLE TABLET PO (10:40)
[2022-05-02] MEDS: EPOETIN ALFA-EPBX 10,000 UNITS/ML VIAL 10000 UNITS SUB-Q (10:40)
[2022-05-02] MEDS: CALCIUM ACETATE 667 MG TABLET 1334 MG PO ×3 (10:41→17:30)
[2022-05-02] MEDS: ENOXAPARIN 30 MG/0.3 ML SYRINGE SUB-Q (10:41)
[2022-05-02] MEDS: GABAPENTIN 300 MG CAPSULE 900 MG PO ×2 (10:42→17:31)
[2022-05-02] MEDS: FAMOTIDINE 20 MG TABLET PO (10:42)
[2022-05-02] MEDS: VENLAFAXINE HCL 25 MG TABLET 100 MG PO ×2 (10:43→17:32)
[2022-05-02] MEDS: BUMETANIDE 1 MG TABLET 2 MG PO ×2 (10:44→17:31)
[2022-05-02] MEDS: calcitrioL 0.25 MCG CAPSULE 0.5 MCG PO (10:44)
[2022-05-02] MEDS: ATORVASTATIN 40 MG TABLET PO ×2 (10:45→17:31)
[2022-05-02] MEDS: lisinopriL 20 MG TABLET PO ×2 (10:45→17:32)
[2022-05-02] MEDS: carvediloL 12.5 MG TABLET PO ×2 (10:46→20:22)
[2022-05-02] MEDS: NIFEdipine 30 MG TAB.ER.24 PO (10:46)
--- NOTE | 2022-05-02 11:18 | PM.IMPN ---
Progress Note: A&P Assessment and Plan (1) Sepsis: Code(s): A41.9 - Sepsis, unspecified organism Status: Acute Assessment and Plan: Patient with sepsis with septicemia present on admission with fever, tachycardia, lactic acidosis, leukocytosis and now positive blood cultures growing Staph Aureus. Chest x-ray shows diffuse lung disease pneumonia versus edema.?He was started on Vancomycin, Cefepime and Levaquin. Blood cultures growing Staph aureus.? Patient is COVID positive as well. Source of bacteremia could be 2nd bacterial PNA or Peritonitis.? He was not given liberal amount of IV fluids due his history of congestive heart failure and ESRD.? Fever has resolved.? Tachycardia has improved.? He has been weaned to room air.? WBC unchanged at 13K. Continue IV antibiotics.? Follow-up on blood cultures.?Repeat BCx. Check Echo. May need SVETLANA. (2) Peritonitis: Code(s): K65.9 - Peritonitis, unspecified Status: Acute Assessment and Plan: Peritoneal fluid with 1700 nucleated cells with 80% neutrophils. BCx growing Staph aureus. Peritoneal fluid pending. Continue IV abx. As above. (3) COVID-19: Code(s): U07.1 - COVID-19 Status: Acute Assessment and Plan: Patient tested positive for COVID-19 on 03/23/22. Patient received monoclonal antibody but did not receive any other treatment.? He was symptomatic with coughing and fever but never required any oxygen. Patient is again positive COVID-19 PCR on presentation here. He was requiring 2 L of oxygen hence he was started on dexamethasone. Able to be weaned to room air. Continue isolation. Continue Dexamethasone. Not a candidate for remdesivir due to renal failure. Repeat CXR (4) Pneumonia: Code(s): J18.9 - Pneumonia, unspecified organism Status: Acute Assessment and Plan: See above. (5) Congestive heart failure (CHF): Qualifiers: Heart failure chronicity: acute Heart failure type: unspecified Qualified Code(s): I50.9 - Heart failure, unspecified Code(s): I50.9 - Heart failure, unspecified Status: Acute Assessment and Plan: CXR could be consistent with pulmonary edema. BNP>35K. Will continue peritoneal dialysis to control fluid status. Echo from 01/05/21 showing EF 60%, LAE and normal AV bioprosthesis. Continue diuretics, Coreg, lisinopril and aspirin. (6) Hypertensive urgency: Code(s): I16.0 - Hypertensive urgency Status: Acute Assessment and Plan: Patient had been off of his antihypertensive medications for about a month prior to admission according to the notes.? Blood pressure on admission was extremely high up to 238/125. He was given IV labetalol and resumed on his home medications.? Patient's blood pressure has responded.? Continue to adjust medications accordingly. (7) End-stage renal disease on peritoneal dialysis: Code(s): N18.6 - End stage renal disease; Z99.2 - Dependence on renal dialysis Status: Acute Assessment and Plan: Patient is on peritoneal dialysis. Nephrology has been consulted for peritoneal dialysis. Electrolytes are acceptable and will be monitored. As above. Continue home dose of diuretics as patient still produces urine. (8) Diabetes: Code(s): E11.9 - Type 2 diabetes mellitus without complications Status: Chronic Assessment and Plan: A1c 5.2.? The patient's blood glucose was reviewed on 05/02 Glucose remains reasonably well controlled.? Continue AccuCheks covering with sliding scale.? Hypoglycemia protocol available as needed.? Continue to monitor (9) Diabetic foot ulcer: Code(s): E11.621 - Type 2 diabetes mellitus with foot ulcer; L97.509 - Non-pressure chronic ulcer of other part of unspecified foot with unspecified severity Status: Acute Assessment and Plan: Right plantar wound examined and does not appear to be infected. Rt foot X-ray showing no osteomyelitis. Continue routine
[2022-05-02 11:31] LABS: Glucose Point of Care 144 mg/dl (65-105)
--- NOTE | 2022-05-02 13:10 | PC.NURSE ---
This patient, Pankaj Bautista, was received from [ICU-4 ] on 05/02/22 at 1310. Patient/family oriented to unit policies and routines
--- NOTE | 2022-05-02 13:30 | PC.NURSE ---
This patient, Pankaj Bautista, was transferred to [facility] on 05/02/22 at 1310. Personal belongings sent with patient. Report given to Jada BA. Appropriate documentation sent with patient.
[2022-05-02 17:53] LABS: Glucose Point of Care 131 mg/dl (65-105)
[2022-05-02 20:40] LABS: Glucose Point of Care 320 mg/dl (65-105)
[2022-05-03] VITALS (15 sets, daily range): BP systolic 114–171; BP diastolic 74–97; PULSE 70–90; RESP 12–20; TEMP 36.2–36.6; O2SAT 93–100
[2022-05-03 07:34] LABS: Hematocrit 28.5 % (42.0-52.0); Hemoglobin 9.6 g/dL (14.0-18.0); Mean Corpuscular HGB Conc 33.7 g/dl (32-36); Mean Corpuscular Hemoglobin 29.1 pg (26-34); Mean Corpuscular Volume 86.4 fl (80-100); Mean Platelet Volume 10.8 fl (7.4-10.4); Platelet Count Result 171 k/mm3 (150-375); Red Cell Distribution Width 14.6 % (11.5-14.5)
[2022-05-03 07:49] LABS: Alanine Aminotransferase 12 U/L (6-50); Albumin Level 2.4 g/dL (3.5-5.1); Alkaline Phosphatase 165 U/L (38-126); Anion Gap 6 mmol/L (8-16); Aspartate Amino Transferase 28 U/L (17-59); Bilirubin,Total 0.2 mg/dL (0.2-1.3); Blood Urea Nitrogen 49 mg/dL (9-20); Calcium 9.1 mg/dL (8.4-10.2); Carbon Dioxide 29 mmol/L (22-30); Chloride 97 mmol/L (98-107); Estimated CRCL calculation 11 ml/min; Estimated Glomerular Filt Rate 8; Glucose 112 mg/dL (65-110); Magnesium 1.6 mg/dL (1.6-2.3); Phosphorus 4.2 mg/dL (2.5-4.5); Potassium 3.3 mmol/L (3.4-5.0); Sodium 132 mmol/L (137-145)
[2022-05-03 07:54] LABS: Glucose Point of Care 115 mg/dl (65-105)
[2022-05-03] MEDS: ASPIRIN 81 MG CHEWABLE TABLET PO (08:56)
[2022-05-03] MEDS: lisinopriL 20 MG TABLET PO ×2 (08:56→16:51)
[2022-05-03] MEDS: carvediloL 12.5 MG TABLET PO ×2 (08:56→21:32)
[2022-05-03] MEDS: calcitrioL 0.25 MCG CAPSULE 0.5 MCG PO (08:56)
[2022-05-03] MEDS: NIFEdipine 30 MG TAB.ER.24 PO (08:56)
[2022-05-03] MEDS: SILVERGEL (ELTA) 45 ML 1 APPLIC TOPICAL (08:56)
[2022-05-03] MEDS: BUMETANIDE 1 MG TABLET 2 MG PO ×2 (08:56→16:50)
[2022-05-03] MEDS: ATORVASTATIN 40 MG TABLET PO ×2 (08:56→16:50)
[2022-05-03] MEDS: VENLAFAXINE HCL 25 MG TABLET 100 MG PO ×2 (08:56→16:50)
[2022-05-03] MEDS: GABAPENTIN 300 MG CAPSULE 900 MG PO ×2 (08:56→16:50)
[2022-05-03] MEDS: CALCIUM ACETATE 667 MG TABLET 1334 MG PO ×3 (08:57→16:50)
[2022-05-03] MEDS: FAMOTIDINE 20 MG TABLET PO (08:57)
[2022-05-03] MEDS: ENOXAPARIN 30 MG/0.3 ML SYRINGE SUB-Q (08:57)
--- NOTE | 2022-05-03 10:04 | P.PNNP_ITS ---
Progress Note: A&P Assessment and Plan (1) End stage renal disease: Code(s): N18.6 - End stage renal disease Status: Chronic Assessment and Plan: * resumed on CCPD every night * follow electrolytes, volume status, and clearance (2) Sepsis: Code(s): A41.9 - Sepsis, unspecified organism Status: Acute Assessment and Plan: * as noted by presentation with fever + tachycardia + lactic acidosis + elevated WBC along with positive blood cultures * blood cultures with Staphylococcus aureus * PD fluid indicative of peritonitis * COVID positive as well * follow repeat blood cultures and PD fluid cultures * continue IV antibiotics * TTE indicative of endocarditis - need SVETLANA? * follow trend of hemodynamics (3) Peritonitis: Code(s): K65.9 - Peritonitis, unspecified Status: Acute Assessment and Plan: * as suggested by PD fluid: * 1700 nucleated cells with 80% neutrophils * peritoneal fluid cutures pending * continue antibiotics (4) COVID-19: Code(s): U07.1 - COVID-19 Status: Acute Assessment and Plan: * test positive on 03/23/22 * received monoclonal antibody therapy * tested positive again on this hospital presentation * on steroids * weaned to room air (5) Anemia: Code(s): D64.9 - Anemia, unspecified Status: Chronic Assessment and Plan: * due to ESRD and likely worsened by sepsis/infection * on Epogen 3x/week * follow H/H (6) Congestive heart failure (CHF): Qualifiers: Heart failure chronicity: acute Heart failure type: unspecified Qualified Code(s): I50.9 - Heart failure, unspecified Code(s): I50.9 - Heart failure, unspecified Status: Acute Assessment and Plan: * known history of this * CXR could be consistent with fluid/pulmonary edema * continue to push fluid removal with peritoneal dialysis * continue diuretics (7) Diabetes: Code(s): E11.9 - Type 2 diabetes mellitus without complications Status: Chronic Assessment and Plan: * follow accuchecks * on SSI Will continue to follow. Subjective Date/time seen: 05/03/22 10:04 Transferred out of ICU yesterday afternoon; stable hemodynamics noted and toelrated peritoneal dialysis treatment last night without any issues or proble ms (UF was about 1000cc); no other events overnight or earlier this morning. Exam Narrative: General: WD/WN male in NAD Heart: normal S1 and S2; no rub Lungs: clear to auscultation Abdomen: soft, nontender, nondistended, positive bowel sounds Extremities: no cyanosis or clubbing; no edema; left foot/ankle deformity Skin: warm and intact Objective Data Vital Signs Vital Signs: Vital Signs Temp Pulse Resp BP Pulse Ox O2 Del Method 05/03/22 08:00 36.2 C L 70 12 142/86 H 100 05/03/22 07:28 36.6 C 78 20 114/82 05/03/22 06:00 78 05/03/22 04:00 36.6 C 80 20 114/82 93 05/03/22 04:00 80 05/03/22 04:00 Room Air 05/02/22 20:02 140/86 05/02/22 20:01 148/90 H 05/03/22 02:00 81 05/03/22 00:00 Room Air 05/03/22 00:00 75 05/03/22 00:20 90 20 142/95 H 100
--- NOTE | 2022-05-03 10:04 | PM.PNNEP ---
Progress Note: A&P Assessment and Plan (1) End stage renal disease: Code(s): N18.6 - End stage renal disease Status: Chronic Assessment and Plan: resumed on CCPD every night follow electrolytes, volume status, and clearance (2) Sepsis: Code(s): A41.9 - Sepsis, unspecified organism Status: Acute Assessment and Plan: as noted by presentation with fever + tachycardia + lactic acidosis + elevated WBC along with positive blood cultures blood cultures with Staphylococcus aureus PD fluid indicative of peritonitis COVID positive as well follow repeat blood cultures and PD fluid cultures continue IV antibiotics TTE indicative of endocarditis - need SVETLANA? follow trend of hemodynamics (3) Peritonitis: Code(s): K65.9 - Peritonitis, unspecified Status: Acute Assessment and Plan: as suggested by PD fluid: 1700 nucleated cells with 80% neutrophils peritoneal fluid cutures pending continue antibiotics (4) COVID-19: Code(s): U07.1 - COVID-19 Status: Acute Assessment and Plan: test positive on 03/23/22 received monoclonal antibody therapy tested positive again on this hospital presentation on steroids weaned to room air (5) Anemia: Code(s): D64.9 - Anemia, unspecified Status: Chronic Assessment and Plan: due to ESRD and likely worsened by sepsis/infection on Epogen 3x/week follow H/H (6) Congestive heart failure (CHF): Qualifiers: Heart failure chronicity: acute Heart failure type: unspecified Qualified Code(s): I50.9 - Heart failure, unspecified Code(s): I50.9 - Heart failure, unspecified Status: Acute Assessment and Plan: known history of this CXR could be consistent with fluid/pulmonary edema continue to push fluid removal with peritoneal dialysis continue diuretics (7) Diabetes: Code(s): E11.9 - Type 2 diabetes mellitus without complications Status: Chronic Assessment and Plan: follow accuchecks on SSI Will continue to follow. Subjective Date/time seen: 05/03/22 10:04 Transferred out of ICU yesterday afternoon; stable hemodynamics noted and toelrated peritoneal dialysis treatment last night without any issues or problems (UF was about 1000cc); no other events overnight or earlier this morning. Exam Narrative: General: WD/WN male in NAD Heart: normal S1 and S2; no rub Lungs: clear to auscultation Abdomen: soft, nontender, nondistended, positive bowel sounds Extremities: no cyanosis or clubbing; no edema; left foot/ankle deformity Skin: warm and intact Objective Data Vital Signs Vital Signs: Vital Signs Temp Pulse Resp BP Pulse Ox O2 Del Method 05/03/22 08:00 36.2 C L 70 12 142/86 H 100 05/03/22 07:28 36.6 C 78 20 114/82 05/03/22 06:00 78 05/03/22 04:00 36.6 C 80 20 114/82 93 05/03/22 04:00 80 05/03/22 04:00 Room Air 05/02/22 20:02 140/86 05/02/22 20:01 148/90 H 05/03/22 02:00 81 05/03/22 00:00 Room Air 05/03/22 00:00 75 05/03/22 00:20 90 20 142/95 H 100 05/02/22 23:54 36.6 C 75 20 146/122 H 100 05/02/22 20:00 Room Air 05/02/22 22:00 80 05/02/22 20:00 76 05/02/22 20:22 75 05/02/22 20:00 36.5 C 77 20 152/84 H 94 05/02/22 16:00 36.6 C 86 12 148/81 H 96 05/02/22 18:00 76 05/02/22 16:00 Room Air 05/02/22 16:00 73 05/02/22 14:50 Room Air 05/02/22 14:00 70 05/02/22 12:00 Room Air 05/02/22 12:00 75 05/02/22 11:27 36.3 C L 73 11 L 125/86 100 05/02/22 10:46 74 Intake/Output Intake/Output: Intake & Output 04/30/22 05/01/22 05/02/22 05/03/22 23:59 23:59 23:59 23:59 Intake Total 400 3090 1470 340 Output Total 225 692 993 Balance 400 5698 027 -096 Meds/Results Medications: Active Medications
[2022-05-03 12:05] LABS: Glucose Point of Care 205 mg/dl (65-105)
[2022-05-03] MEDS: INSULIN ASPART (*BKC) 100 UNITS/ML SUB-Q ×2 (12:37→16:51)
--- NOTE | 2022-05-03 14:36 | PM.IMPN ---
Progress Note: A&P Assessment and Plan (1) Sepsis: Code(s): A41.9 - Sepsis, unspecified organism Status: Acute Assessment and Plan: Patient with sepsis with septicemia present on admission with fever, tachycardia, lactic acidosis, leukocytosis and positive blood cultures. Chest x-ray shows diffuse lung disease pneumonia versus edema.?He was started on Vancomycin, Cefepime and Levaquin. Blood cultures growing MSSA.? Patient is COVID positive as well. Source of bacteremia could be 2nd bacterial PNA or Peritonitis. Echo does show mobile vegitation. He was not given liberal amount of IV fluids due his history of congestive heart failure and ESRD.? Fever has resolved.? Tachycardia has improved.? He has been weaned to room air.? WBC better at 12K. Repeat BCx NGTD. Continue IV antibiotics but change to Nafcillin 2gm IV Q4hr. Continue Levaquin for peritonitis. Follow-up on blood and peritoneal cultures.? (2) Infective endocarditis: Code(s): I33.0 - Acute and subacute infective endocarditis Status: Acute Assessment and Plan: Echocardiogram showing EF of 45-50% with a small mobile mitral valve vegetation measuring 1.2 cm as attached to the posterior mitral valve leaflet suggesting endocarditis. Continue IV antibiotics with the adjustments as mentioned above. Discussed with Pharm D Infectious Disease. (3) Peritonitis: Code(s): K65.9 - Peritonitis, unspecified Status: Acute Assessment and Plan: Peritoneal fluid with 1700 nucleated cells with 80% neutrophils. BCx growing MSSA. Peritoneal culture pending. Continue IV abx. As above. (4) COVID-19: Code(s): U07.1 - COVID-19 Status: Acute Assessment and Plan: Patient tested positive for COVID-19 on 03/23/22. Patient received monoclonal antibody but did not receive any other treatment.? He was symptomatic with coughing and fever but never required any oxygen. Patient is again positive COVID-19 PCR on presentation here. Chest x-ray showed diffuse bilateral airspace disease. He was requiring 2 L of oxygen hence he was started on dexamethasone. Able to be weaned to room air. Chest x-ray findings could be related to pulmonary edema. Chest x-ray was repeated and is now showing no acute findings. Given the improvement in his chest x-ray and that he is no longer on oxygen, will stop dexamethasone. (5) Pneumonia: Code(s): J18.9 - Pneumonia, unspecified organism Status: Acute Assessment and Plan: See above. (6) Congestive heart failure (CHF): Qualifiers: Heart failure chronicity: acute Heart failure type: unspecified Qualified Code(s): I50.9 - Heart failure, unspecified Code(s): I50.9 - Heart failure, unspecified Status: Acute Assessment and Plan: CXR felt to be consistent with pulmonary edema. BNP>35K. Will continue peritoneal dialysis to control fluid status. Echo shownig EF 45-50%, diastolic dysfunction, and MV vegetation. Continue diuretics, Coreg, lisinopril and aspirin. (7) Hypertensive urgency: Code(s): I16.0 - Hypertensive urgency Status: Acute Assessment and Plan: Patient had been off of his antihypertensive medications for about a month prior to admission according to the notes.? Blood pressure on admission was extremely high up to 238/125. He was given IV labetalol and resumed on his home medications.? Patient's blood pressure has responded and much better controlled now.? Continue to adjust medications accordingly. (8) End-stage renal disease on peritoneal dialysis: Code(s): N18.6 - End stage renal disease; Z99.2 - Dependence on renal dialysis Status: Acute Assessment and Plan: Patient is on peritoneal dialysis. Nephrology has been consulted for peritoneal dialysis. Electrolytes are acceptable and will be monitored. As above. Continue home dose of diuretics as patient still produces urine. (9) Diabetes: Code
[2022-05-03 16:40] LABS: Glucose Point of Care 227 mg/dl (65-105)
[2022-05-03 21:36] LABS: Glucose Point of Care 243 mg/dl (65-105)
[2022-05-04] VITALS (18 sets, daily range): BP systolic 109–185; BP diastolic 74–105; PULSE 65–99; RESP 12–20; TEMP 36.1–37.1; O2SAT 98–100
[2022-05-04 04:59] LABS: Hemoglobin 9.9 g/dL (14.0-18.0); Mean Corpuscular HGB Conc 34.1 g/dl (32-36); Mean Corpuscular Hemoglobin 29.4 pg (26-34); Mean Corpuscular Volume 86.1 fl (80-100); Mean Platelet Volume 10.7 fl (7.4-10.4); Platelet Count Result 172 k/mm3 (150-375); Red Blood Count 3.37 M/mm3 (4.6-6.20); Red Cell Distribution Width 14.4 % (11.5-14.5)
[2022-05-04 05:17] LABS: Alanine Aminotransferase 21 U/L (6-50); Albumin Level 2.4 g/dL (3.5-5.1); Alkaline Phosphatase 284 U/L (38-126); Anion Gap 4 mmol/L (8-16); Aspartate Amino Transferase 22 U/L (17-59); Bilirubin,Total 0.8 mg/dL (0.2-1.3); Blood Urea Nitrogen 50 mg/dL (9-20); Calcium 9.5 mg/dL (8.4-10.2); Carbon Dioxide 29 mmol/L (22-30); Chloride 98 mmol/L (98-107); Estimated CRCL calculation 12 ml/min; Estimated Glomerular Filt Rate 9; Glucose 136 mg/dL (65-110); Magnesium 1.8 mg/dL (1.6-2.3); Phosphorus 3.2 mg/dL (2.5-4.5); Potassium 3.3 mmol/L (3.4-5.0); Sodium 131 mmol/L (137-145)
[2022-05-04 08:04] LABS: Glucose Point of Care 120 mg/dl (65-105)
[2022-05-04] MEDS: EPOETIN ALFA-EPBX 10,000 UNITS/ML VIAL 10000 UNITS SUB-Q (09:04)
[2022-05-04] MEDS: CALCIUM ACETATE 667 MG TABLET 1334 MG PO ×3 (09:04→17:14)
[2022-05-04] MEDS: BUMETANIDE 1 MG TABLET 2 MG PO ×2 (09:04→17:14)
[2022-05-04] MEDS: carvediloL 12.5 MG TABLET PO ×2 (09:04→21:08)
[2022-05-04] MEDS: GABAPENTIN 300 MG CAPSULE 900 MG PO ×2 (09:04→17:14)
[2022-05-04] MEDS: VENLAFAXINE HCL 25 MG TABLET 100 MG PO ×2 (09:04→17:14)
[2022-05-04] MEDS: ENOXAPARIN 30 MG/0.3 ML SYRINGE SUB-Q (09:04)
[2022-05-04] MEDS: calcitrioL 0.25 MCG CAPSULE 0.5 MCG PO (09:04)
[2022-05-04] MEDS: FAMOTIDINE 20 MG TABLET PO (09:04)
[2022-05-04] MEDS: ASPIRIN 81 MG CHEWABLE TABLET PO (09:04)
[2022-05-04] MEDS: lisinopriL 20 MG TABLET PO ×2 (09:04→17:14)
[2022-05-04] MEDS: NIFEdipine 30 MG TAB.ER.24 PO (09:04)
[2022-05-04] MEDS: ATORVASTATIN 40 MG TABLET PO ×2 (09:05→17:14)
[2022-05-04] MEDS: SILVERGEL (ELTA) 45 ML 1 APPLIC TOPICAL (09:05)
[2022-05-04 12:26] LABS: Glucose Point of Care 182 mg/dl (65-105)
--- NOTE | 2022-05-04 15:20 | P.PNNP_ITS ---
Progress Note: A&P Assessment and Plan (1) End stage renal disease: Code(s): N18.6 - End stage renal disease Status: Chronic Assessment and Plan: * resumed on CCPD every night * follow electrolytes, volume status, and clearance (2) Infective endocarditis: Code(s): I33.0 - Acute and subacute infective endocarditis Status: Acute Assessment and Plan: * Echo results noted: * EF of 45 - 50% with a small mobile mitral valve vegetation measuring 1.2 cm as attached to the posterior mitral valve leaflet suggesting endocarditis. * on IV antibiotics * need SVETLANA?? 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 * likely to need long course (6 weeks of antibioitcs) * would recommend IJ BETY catheter or Wright for administration of this * continue supportive care (3) Peritonitis: Code(s): K65.9 - Peritonitis, unspecified Status: Acute Assessment and Plan: * as suggested by PD fluid: * 1700 nucleated cells with 80% neutrophils * peritoneal fluid cutures pending * repeat PD fluid cell count today/tomorrow * continue antibiotics (4) COVID-19: Code(s): U07.1 - COVID-19 Status: Acute Assessment and Plan: * test positive on 03/23/22 * received monoclonal antibody therapy * tested positive again on this hospital presentation * on steroids * weaned to room air (5) Hypertension: Code(s): I10 - Essential (primary) hypertension Status: Chronic Assessment and Plan: * quite elevated on admission * better control at this time * follow trend of hemodynamics (6) Anemia: Code(s): D64.9 - Anemia, unspecified Status: Chronic Assessment and Plan: * due to ESRD and likely worsened by sepsis/infection * on Epogen 3x/week * follow H/H (7) Congestive heart failure (CHF): Qualifiers: Heart failure chronicity: acute Heart failure type: unspecified Qualified Code(s): I50.9 - Heart failure, unspecified Code(s): I50.9 - Heart failure, unspecified Status: Acute Assessment and Plan: * known history of this * CXR could be consistent with fluid/pulmonary edema * continue to push fluid removal with peritoneal dialysis * continue diuretics (8) Diabetes: Code(s): E11.9 - Type 2 diabetes mellitus without complications Status: Chronic Assessment and Plan: * follow accuchecks * on SSI Will continue to follow. Subjective Date/time seen: 05/04/22 15:20 Tolerated peritoneal dialysis overnight without any issues or problems with significant ultrafiltration overnight; remains hemodynamically stable and in no apparent distress; no events overnight or earlier this morning; no other acute complaints to report. Exam Narrative: General: WD/WN male in NAD Heart: normal S1 and S2; no rub Lungs: clear to auscultation Abdomen: soft, nontender, nondistended, positive bowel sounds Extremities: no cyanosis or clubbing; no edema; left foot/ankle deformity Skin: no rash Objective Data Vital Signs Vital Signs: Vital Signs Temp Pulse Resp BP Pulse Ox O2 Del Method 05/04/22 14:00 67 05/04/22 12:00 37.1 C 73 20 158/95 H 100 05/04/22 12:00 74 05/04/22 1
--- NOTE | 2022-05-04 15:20 | PM.PNNEP ---
Progress Note: A&P Assessment and Plan (1) End stage renal disease: Code(s): N18.6 - End stage renal disease Status: Chronic Assessment and Plan: resumed on CCPD every night follow electrolytes, volume status, and clearance (2) Infective endocarditis: Code(s): I33.0 - Acute and subacute infective endocarditis Status: Acute Assessment and Plan: Echo results noted: EF of 45 - 50% with a small mobile mitral valve vegetation measuring 1.2 cm as attached to the posterior mitral valve leaflet suggesting endocarditis. on IV antibiotics need SVETLANA?? 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 likely to need long course (6 weeks of antibioitcs) would recommend IJ BETY catheter or Wright for administration of this continue supportive care (3) Peritonitis: Code(s): K65.9 - Peritonitis, unspecified Status: Acute Assessment and Plan: as suggested by PD fluid: 1700 nucleated cells with 80% neutrophils peritoneal fluid cutures pending repeat PD fluid cell count today/tomorrow continue antibiotics (4) COVID-19: Code(s): U07.1 - COVID-19 Status: Acute Assessment and Plan: test positive on 03/23/22 received monoclonal antibody therapy tested positive again on this hospital presentation on steroids weaned to room air (5) Hypertension: Code(s): I10 - Essential (primary) hypertension Status: Chronic Assessment and Plan: quite elevated on admission better control at this time follow trend of hemodynamics (6) Anemia: Code(s): D64.9 - Anemia, unspecified Status: Chronic Assessment and Plan: due to ESRD and likely worsened by sepsis/infection on Epogen 3x/week follow H/H (7) Congestive heart failure (CHF): Qualifiers: Heart failure chronicity: acute Heart failure type: unspecified Qualified Code(s): I50.9 - Heart failure, unspecified Code(s): I50.9 - Heart failure, unspecified Status: Acute Assessment and Plan: known history of this CXR could be consistent with fluid/pulmonary edema continue to push fluid removal with peritoneal dialysis continue diuretics (8) Diabetes: Code(s): E11.9 - Type 2 diabetes mellitus without complications Status: Chronic Assessment and Plan: follow accuchecks on SSI Will continue to follow. Subjective Date/time seen: 05/04/22 15:20 Tolerated peritoneal dialysis overnight without any issues or problems with significant ultrafiltration overnight; remains hemodynamically stable and in no apparent distress; no events overnight or earlier this morning; no other acute complaints to report. Exam Narrative: General: WD/WN male in NAD Heart: normal S1 and S2; no rub Lungs: clear to auscultation Abdomen: soft, nontender, nondistended, positive bowel sounds Extremities: no cyanosis or clubbing; no edema; left foot/ankle deformity Skin: no rash Objective Data Vital Signs Vital Signs: Vital Signs Temp Pulse Resp BP Pulse Ox O2 Del Method 05/04/22 14:00 67 05/04/22 12:00 37.1 C 73 20 158/95 H 100 05/04/22 12:00 74 05/04/22 12:00 Room Air 05/04/22 11:41 Room Air 05/04/22 10:00 69 05/04/22 08:00 72 05/04/22 08:00 Room Air 05/04/22 08:00 36.5 C 71 16 181/94 H 99 05/04/22 08:17 36.1 C L 71 20 136/80 05/04/22 06:39 136/80 05/04/22 06:38 164/105 H 05/03/22 20:00 171/87 H 05/04/22 06:00 71 05/04/22 04:00 36.1 C L 72 20 159/78 H 98 05/04/22 04:00 Room Air 05/04/22 04:00 70 05/04/22 02:00 81 05/04/22 00:00 83 05/03/22 22:00 77 05/03/22 20:00 75 05/04/22 00:00 36.7 C 69 20 141/78 H 100 05/04/22 00:00 Room Air 05/03/22 20:00 Room Air 05/03/22 20:00 36.6 C 76 20 123/77 100 Intake/Output
[2022-05-04 16:54] LABS: Pneumococcal Antigen Urine Not Detected (Not Detected)
--- NOTE | 2022-05-04 17:25 | PM.IMPN ---
Progress Note: A&P Assessment and Plan (1) Sepsis: Code(s): A41.9 - Sepsis, unspecified organism Status: Acute Assessment and Plan: Patient with sepsis with septicemia present on admission with fever, tachycardia, lactic acidosis, leukocytosis and positive blood cultures. Chest x-ray showed diffuse lung disease pneumonia versus edema.?He was started on Vancomycin, Cefepime and Levaquin. Blood cultures grew MSSA.? Patient was COVID positive as well. Source of bacteremia could be 2nd bacterial PNA or Peritonitis. Echo does show mobile vegetation. He was not given liberal amount of IV fluids due his history of congestive heart failure and ESRD.? Fever has resolved.? Tachycardia has improved.? He was weaned to room air.? WBC stable at 12K. Repeat BCx NGTD; Peritoneal cultures pending. Abx adjusted. Continue IV antibiotics with Nafcillin 2gm IV Q4hr. Continue Levaquin for peritonitis. Follow-up on blood and peritoneal cultures.?Place central line for IV abx at home. Possible discharge tomorrow (2) Infective endocarditis: Code(s): I33.0 - Acute and subacute infective endocarditis Status: Acute Assessment and Plan: Echo showing EF of 45-50% with a small mobile mitral valve vegetation measuring 1.2 cm as attached to the posterior mitral valve leaflet suggesting endocarditis. Continue IV antibiotics with the adjustments as mentioned above. Discussed with Pharm D Infectious Disease. (3) Peritonitis: Code(s): K65.9 - Peritonitis, unspecified Status: Acute Assessment and Plan: Peritoneal fluid with 1700 nucleated cells with 80% neutrophils. BCx growing MSSA. Peritoneal culture still pending. Continue IV abx. As above. (4) COVID-19: Code(s): U07.1 - COVID-19 Status: Acute Assessment and Plan: Patient tested positive for COVID-19 on 03/23/22. Patient received monoclonal antibody but did not receive any other treatment.? He was symptomatic with coughing and fever but never required any oxygen. Patient is again positive COVID-19 PCR on presentation here. Chest x-ray showed diffuse bilateral airspace disease. He was requiring 2 L of oxygen hence he was started on dexamethasone. Able to be weaned to room air. Chest x-ray findings could be related to pulmonary edema. After PD, a Chest x-ray was repeated and is now showing no acute findings. Given the improvement in his chest x-ray, the bacteremia and that he is no longer on oxygen, we stopped dexamethasone. (5) Pneumonia: Code(s): J18.9 - Pneumonia, unspecified organism Status: Acute Assessment and Plan: See above. (6) Congestive heart failure (CHF): Qualifiers: Heart failure chronicity: acute Heart failure type: unspecified Qualified Code(s): I50.9 - Heart failure, unspecified Code(s): I50.9 - Heart failure, unspecified Status: Acute Assessment and Plan: CXR felt to be consistent with pulmonary edema. BNP>35K. Will continue peritoneal dialysis to control fluid status. Echo shownig EF 45-50%, diastolic dysfunction, and MV vegetation. Continue diuretics, Coreg, lisinopril and aspirin. (7) Hypertensive urgency: Code(s): I16.0 - Hypertensive urgency Status: Acute Assessment and Plan: Patient had been off of his antihypertensive medications for about a month prior to admission according to the notes.? Blood pressure on admission was extremely high up to 238/125. He was given IV labetalol and resumed on his home medications.? Patient's blood pressure has responded and much better controlled now.? Continue to adjust medications accordingly. (8) End-stage renal disease on peritoneal dialysis: Code(s): N18.6 - End stage renal disease; Z99.2 - Dependence on renal dialysis Status: Acute Assessment and Plan: Patient is on peritoneal dialysis. Nephrology has been consulted for peritoneal dialysis. Electrolytes are acceptable and will be
[2022-05-04 17:43] LABS: Glucose Point of Care 124 mg/dl (65-105)
[2022-05-04 20:31] LABS: Glucose Point of Care 163 mg/dl (65-105)
[2022-05-04] MEDS: levoFLOXacin 500 MG/D5W 100 ML 500 MG/100 ML BAG 100 MG IVPB (21:37)
[2022-05-05] VITALS (19 sets, daily range): BP systolic 114–212; BP diastolic 71–103; PULSE 66–91; RESP 12–20; TEMP 36.2–37.1; O2SAT 99–100
[2022-05-05 05:32] LABS: Hematocrit 30.6 % (42.0-52.0); Hemoglobin 10.3 g/dL (14.0-18.0); Mean Corpuscular HGB Conc 33.7 g/dl (32-36); Mean Corpuscular Hemoglobin 29.3 pg (26-34); Mean Corpuscular Volume 87.2 fl (80-100); Mean Platelet Volume 10.1 fl (7.4-10.4); Platelet Count Result 145 k/mm3 (150-375); Red Blood Count 3.51 M/mm3 (4.6-6.20); Red Cell Distribution Width 14.6 % (11.5-14.5); White Blood Count 7.4 K/mm3 (4.5-10.0)
[2022-05-05 05:52] LABS: Alanine Aminotransferase 20 U/L (6-50); Albumin Level 2.3 g/dL (3.5-5.1); Alkaline Phosphatase 276 U/L (38-126); Anion Gap 5 mmol/L (8-16); Aspartate Amino Transferase 20 U/L (17-59); Bilirubin,Total 1.2 mg/dL (0.2-1.3); Blood Urea Nitrogen 47 mg/dL (9-20); Calcium 9.5 mg/dL (8.4-10.2); Carbon Dioxide 29 mmol/L (22-30); Chloride 99 mmol/L (98-107); Estimated CRCL calculation 12 ml/min; Estimated Glomerular Filt Rate 8; Glucose 110 mg/dL (65-110); Magnesium 1.9 mg/dL (1.6-2.3); Phosphorus 3.2 mg/dL (2.5-4.5); Potassium 2.9 mmol/L (3.4-5.0); Sodium 133 mmol/L (137-145)
[2022-05-05 08:53] LABS: Glucose Point of Care 96 mg/dl (65-105)
[2022-05-05] MEDS: lisinopriL 20 MG TABLET PO ×2 (09:26→18:22)
[2022-05-05] MEDS: calcitrioL 0.25 MCG CAPSULE 0.5 MCG PO (09:26)
[2022-05-05] MEDS: FAMOTIDINE 20 MG TABLET PO (09:26)
[2022-05-05] MEDS: GABAPENTIN 300 MG CAPSULE 900 MG PO ×2 (09:26→18:22)
[2022-05-05] MEDS: BUMETANIDE 1 MG TABLET 2 MG PO ×2 (09:26→18:22)
[2022-05-05] MEDS: carvediloL 12.5 MG TABLET PO ×2 (09:26→21:00)
[2022-05-05] MEDS: CALCIUM ACETATE 667 MG TABLET 1334 MG PO ×3 (09:27→18:22)
[2022-05-05] MEDS: VENLAFAXINE HCL 25 MG TABLET 100 MG PO ×2 (09:27→18:21)
[2022-05-05] MEDS: NIFEdipine 30 MG TAB.ER.24 PO (09:27)
[2022-05-05] MEDS: ASPIRIN 81 MG CHEWABLE TABLET PO (09:28)
[2022-05-05] MEDS: ATORVASTATIN 40 MG TABLET PO ×2 (09:28→18:22)
[2022-05-05] MEDS: ENOXAPARIN 30 MG/0.3 ML SYRINGE SUB-Q (09:29)
[2022-05-05] MEDS: SILVERGEL (ELTA) 45 ML 1 APPLIC TOPICAL (09:38)
[2022-05-05 12:22] LABS: Glucose Point of Care 114 mg/dl (65-105)
--- NOTE | 2022-05-05 12:59 | P.PNNP_ITS ---
Progress Note: A&P Assessment and Plan (1) End stage renal disease: Code(s): N18.6 - End stage renal disease Status: Chronic Assessment and Plan: * resumed on CCPD every night * follow electrolytes, volume status, and clearance * replete K+ as needed (2) Infective endocarditis: Code(s): I33.0 - Acute and subacute infective endocarditis Status: Acute Assessment and Plan: * Echo results noted: * EF of 45 - 50% with a small mobile mitral valve vegetation measuring 1.2 cm as attached to the posterior mitral valve leaflet suggesting endocarditis. * on IV antibiotics * need SVETLANA?? 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 * continue supportive care (3) Peritonitis: Code(s): K65.9 - Peritonitis, unspecified Status: Acute Assessment and Plan: * as suggested by PD fluid: * 1700 nucleated cells with 80% neutrophils * peritoneal fluid cultures pending - nursing informs me today that this was never done(!) * repeat PD fluid cell count ordered * continue antibiotics (4) COVID-19: Code(s): U07.1 - COVID-19 Status: Acute Assessment and Plan: * test positive on 03/23/22 * received monoclonal antibody therapy * tested positive again on this hospital presentation * on steroids * weaned to room air (5) Hypertension: Code(s): I10 - Essential (primary) hypertension Status: Chronic Assessment and Plan: * quite elevated on admission * elevated on my visit today as well * one time dose of oral hydralazine now -- will review outpatient records regarding what other medications he has taken in the past * follow trend of hemodynamics (6) Anemia: Code(s): D64.9 - Anemia, unspecified Status: Chronic Assessment and Plan: * due to ESRD and likely worsened by sepsis/infection * on Epogen 3x/week * follow H/H (7) Congestive heart failure (CHF): Qualifiers: Heart failure chronicity: acute Heart failure type: unspecified Qualified Code(s): I50.9 - Heart failure, unspecified Code(s): I50.9 - Heart failure, unspecified Status: Acute Assessment and Plan: * known history of this * CXR could be consistent with fluid/pulmonary edema * continue to push fluid removal with peritoneal dialysis * continue diuretics (8) Diabetes: Code(s): E11.9 - Type 2 diabetes mellitus without complications Status: Chronic Assessment and Plan: * follow accuchecks * on SSI Will continue to follow. Subjective Date/time seen: 05/05/22 12:59 BP elevated at this time despite getting AM blood pressure medications; tolerated CCPD overnight without any issues or problems; overall, he feels significantly better in general. Exam Narrative: General: WD/WN male in NAD Heart: normal S1 and S2; no rub Lungs: clear to auscultation Abdomen: soft, nontender, nondistended, positive bowel sounds Extremities: no cyanosis or clubbing; no edema; left foot/ankle deformity Skin: no nodules Objective Data Vital Signs Vital Signs:
--- NOTE | 2022-05-05 12:59 | PM.PNNEP ---
Progress Note: A&P Assessment and Plan (1) End stage renal disease: Code(s): N18.6 - End stage renal disease Status: Chronic Assessment and Plan: resumed on CCPD every night follow electrolytes, volume status, and clearance replete K+ as needed (2) Infective endocarditis: Code(s): I33.0 - Acute and subacute infective endocarditis Status: Acute Assessment and Plan: Echo results noted: EF of 45 - 50% with a small mobile mitral valve vegetation measuring 1.2 cm as attached to the posterior mitral valve leaflet suggesting endocarditis. on IV antibiotics need SVETLANA?? 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 continue supportive care (3) Peritonitis: Code(s): K65.9 - Peritonitis, unspecified Status: Acute Assessment and Plan: as suggested by PD fluid: 1700 nucleated cells with 80% neutrophils peritoneal fluid cultures pending - nursing informs me today that this was never done(!) repeat PD fluid cell count ordered continue antibiotics (4) COVID-19: Code(s): U07.1 - COVID-19 Status: Acute Assessment and Plan: test positive on 03/23/22 received monoclonal antibody therapy tested positive again on this hospital presentation on steroids weaned to room air (5) Hypertension: Code(s): I10 - Essential (primary) hypertension Status: Chronic Assessment and Plan: quite elevated on admission elevated on my visit today as well one time dose of oral hydralazine now -- will review outpatient records regarding what other medications he has taken in the past follow trend of hemodynamics (6) Anemia: Code(s): D64.9 - Anemia, unspecified Status: Chronic Assessment and Plan: due to ESRD and likely worsened by sepsis/infection on Epogen 3x/week follow H/H (7) Congestive heart failure (CHF): Qualifiers: Heart failure chronicity: acute Heart failure type: unspecified Qualified Code(s): I50.9 - Heart failure, unspecified Code(s): I50.9 - Heart failure, unspecified Status: Acute Assessment and Plan: known history of this CXR could be consistent with fluid/pulmonary edema continue to push fluid removal with peritoneal dialysis continue diuretics (8) Diabetes: Code(s): E11.9 - Type 2 diabetes mellitus without complications Status: Chronic Assessment and Plan: follow accuchecks on SSI Will continue to follow. Subjective Date/time seen: 05/05/22 12:59 BP elevated at this time despite getting AM blood pressure medications; tolerated CCPD overnight without any issues or problems; overall, he feels significantly better in general. Exam Narrative: General: WD/WN male in NAD Heart: normal S1 and S2; no rub Lungs: clear to auscultation Abdomen: soft, nontender, nondistended, positive bowel sounds Extremities: no cyanosis or clubbing; no edema; left foot/ankle deformity Skin: no nodules Objective Data Vital Signs Vital Signs: Vital Signs Temp Pulse Resp BP Pulse Ox O2 Del Method 05/05/22 12:00 37.1 C 70 16 210/102 H 100 05/05/22 09:11 146/80 H 05/05/22 09:10 152/99 H 05/05/22 08:00 36.4 C L 66 14 200/103 H 100 05/05/22 08:00 200/103 H 05/05/22 09:26 72 05/05/22 07:50 36.6 C 74 12 161/85 H 05/05/22 04:00 36.6 C 74 12 161/85 H 99 05/05/22 06:00 74 05/05/22 04:00 Room Air 05/05/22 04:00 91 05/05/22 02:00 72 05/05/22 00:00 78 05/05/22 00:00 36.3 C L 88 20 131/77 100 05/05/22 00:00 Room Air 05/04/22 22:00 70 05/04/22 20:00 67 05/04/22 20:00 Room Air 05/04/22 20:44 137
[2022-05-05] MEDS: hydrALAZINE HCL 50 MG TABLET PO (13:30)
[2022-05-05] MEDS: POTASSIUM CHLORIDE 20 MEQ TABLET 40 MEQ PO (13:30)
[2022-05-05] MEDS: LIDOCAINE HCL 1% LOCAL INJ 2 ML AMPUL 5 ML INFILTRATE (14:30)
[2022-05-05 15:54] LABS: Appearance Peritoneal Fluid Hazy (Clear); Color Peritoneal Fluid Yellow (Colorless); Lymphocytes Peritoneal Fluid 14 %; Monocytes Peritoneal Fluid 74 %; Neutrophils Peritoneal Fluid 3 % (0-25); Nucleated Cells Peritoneal Flu 77 /uL (0-500); RBC Peritoneal Fluid 46 /uL (0-100000); Source Peritoneal Fluid Peritoneal Fluid
[2022-05-05 15:55] LABS: Mesothelial Cells Peritoneal Fluid 9 %
[2022-05-05 17:00] LABS: Glucose Point of Care 95 mg/dl (65-105)
--- NOTE | 2022-05-05 17:33 | PM.IMPN ---
Progress Note: A&P Assessment and Plan (1) Sepsis: Code(s): A41.9 - Sepsis, unspecified organism Status: Acute Assessment and Plan: Patient with sepsis with septicemia present on admission with fever, tachycardia, lactic acidosis, leukocytosis and positive blood cultures. Chest x-ray showed diffuse lung disease pneumonia versus edema.?He was started on Vancomycin, Cefepime and Levaquin. Blood cultures grew MSSA.? Patient was COVID positive as well. Source of bacteremia could be 2nd bacterial PNA or Peritonitis. Echo does show mobile vegetation. He was not given liberal amount of IV fluids due his history of CHF and ESRD.? Fever has resolved.? Tachycardia has improved.? He was weaned to room air.? WBC normal now. Repeat BCx NGTD; Peritoneal cultures were never collected. Abx adjusted. Continue IV antibiotics with Nafcillin 2gm IV Q4hr. Continue Levaquin for peritonitis. Central line placed for IV abx at home. The tip however has migrated cephalad. Discussed with RN. Plan is to power flush the line tomorrow in hopes that it will migrated downward. If not, may need to be replaced. Possible discharge tomorrow if catheter in correct placement. (2) Infective endocarditis: Code(s): I33.0 - Acute and subacute infective endocarditis Status: Acute Assessment and Plan: Echo showing EF of 45-50% with a small mobile mitral valve vegetation measuring 1.2 cm as attached to the posterior mitral valve leaflet suggesting endocarditis. Cardiology following. Continue IV antibiotics with the adjustments as mentioned above. Discussed with Pharm D Infectious Disease. (3) Peritonitis: Code(s): K65.9 - Peritonitis, unspecified Status: Acute Assessment and Plan: Peritoneal fluid with 1700 nucleated cells with 80% neutrophils. BCx growing MSSA. Peritoneal culture not collected for unclear reasons (order in the chart). Continue IV abx. Plan to treat for peritonitis given the fluid cell count. Repeat cell count better. As above. (4) COVID-19: Code(s): U07.1 - COVID-19 Status: Acute Assessment and Plan: Patient tested positive for COVID-19 on 03/23/22. Patient received monoclonal antibody but did not receive any other treatment.? He was symptomatic with coughing and fever but never required any oxygen. Patient is again positive COVID-19 PCR on presentation here. Chest x-ray showed diffuse bilateral airspace disease. He was requiring 2 L of oxygen hence he was started on dexamethasone. Able to be weaned to room air. Chest x-ray findings could be related to pulmonary edema. After PD, a Chest x-ray was repeated and is now showing no acute findings. Given the improvement in his chest x-ray, the bacteremia and that he is no longer on oxygen, we stopped dexamethasone. (5) Pneumonia: Code(s): J18.9 - Pneumonia, unspecified organism Status: Acute Assessment and Plan: See above. (6) Congestive heart failure (CHF): Qualifiers: Heart failure chronicity: acute Heart failure type: unspecified Qualified Code(s): I50.9 - Heart failure, unspecified Code(s): I50.9 - Heart failure, unspecified Status: Acute Assessment and Plan: CXR felt to be consistent with pulmonary edema. BNP>35K. Will continue peritoneal dialysis to control fluid status. Echo shownig EF 45-50%, diastolic dysfunction, and MV vegetation. Continue diuretics, Coreg, lisinopril and aspirin. (7) Hypertensive urgency: Code(s): I16.0 - Hypertensive urgency Status: Acute Assessment and Plan: Patient had been off of his antihypertensive medications for about a month prior to admission according to the notes.? Blood pressure on admission was extremely high up to 238/125. He was given IV labetalol and resumed on his home medications.? Patient's blood pressure has responded but still elevated at times to 200's.? Continue to adjust medications accordingly. (8) E
[2022-05-05 17:57] LABS: Legionella pneumophila Ag Ur Not Detected (Not Detected)
[2022-05-05 21:16] LABS: Glucose Point of Care 141 mg/dl (65-105)
[2022-05-06] VITALS (19 sets, daily range): BP systolic 171–223; BP diastolic 85–113; PULSE 70–91; RESP 12–22; TEMP 36.1–37.3; O2SAT 94–100
[2022-05-06 05:01] LABS: Hematocrit 34.6 % (42.0-52.0); Mean Corpuscular HGB Conc 31.8 g/dl (32-36); Mean Corpuscular Hemoglobin 28.8 pg (26-34); Mean Corpuscular Volume 90.6 fl (80-100); Mean Platelet Volume 10.3 fl (7.4-10.4); Platelet Count Result 164 k/mm3 (150-375); Red Blood Count 3.82 M/mm3 (4.6-6.20); Red Cell Distribution Width 15.2 % (11.5-14.5); White Blood Count 8.7 K/mm3 (4.5-10.0)
[2022-05-06 05:22] LABS: Alanine Aminotransferase 20 U/L (6-50); Albumin Level 2.4 g/dL (3.5-5.1); Alkaline Phosphatase 232 U/L (38-126); Anion Gap 6 mmol/L (8-16); Aspartate Amino Transferase 23 U/L (17-59); Bilirubin,Total 1.6 mg/dL (0.2-1.3); Blood Urea Nitrogen 46 mg/dL (9-20); Calcium 9.7 mg/dL (8.4-10.2); Carbon Dioxide 28 mmol/L (22-30); Chloride 101 mmol/L (98-107); Estimated CRCL calculation 13 ml/min; Estimated Glomerular Filt Rate 8; Glucose 147 mg/dL (65-110); Phosphorus 3.6 mg/dL (2.5-4.5); Potassium 3.6 mmol/L (3.4-5.0); Sodium 135 mmol/L (137-145)
[2022-05-06] MEDS: ATORVASTATIN 40 MG TABLET PO ×2 (08:20→16:47)
[2022-05-06] MEDS: ASPIRIN 81 MG CHEWABLE TABLET PO (08:20)
[2022-05-06] MEDS: calcitrioL 0.25 MCG CAPSULE 0.5 MCG PO (08:20)
[2022-05-06] MEDS: carvediloL 12.5 MG TABLET PO ×2 (08:20→20:44)
[2022-05-06] MEDS: VENLAFAXINE HCL 25 MG TABLET 100 MG PO ×2 (08:20→16:47)
[2022-05-06] MEDS: ENOXAPARIN 30 MG/0.3 ML SYRINGE SUB-Q (08:21)
[2022-05-06] MEDS: FAMOTIDINE 20 MG TABLET PO (08:21)
[2022-05-06] MEDS: lisinopriL 20 MG TABLET PO ×2 (08:21→16:47)
[2022-05-06] MEDS: CALCIUM ACETATE 667 MG TABLET 1334 MG PO ×3 (08:21→16:47)
[2022-05-06] MEDS: BUMETANIDE 1 MG TABLET 2 MG PO ×2 (08:21→16:47)
[2022-05-06] MEDS: NIFEdipine 30 MG TAB.ER.24 PO (08:21)
[2022-05-06] MEDS: GABAPENTIN 300 MG CAPSULE 900 MG PO ×2 (08:21→16:47)
[2022-05-06] MEDS: SILVERGEL (ELTA) 45 ML 1 APPLIC TOPICAL (08:22)
[2022-05-06] MEDS: EPOETIN ALFA-EPBX 10,000 UNITS/ML VIAL 10000 UNITS SUB-Q (08:23)
[2022-05-06 08:26] LABS: Glucose Point of Care 117 mg/dl (65-105)
[2022-05-06 12:07] LABS: Glucose Point of Care 164 mg/dl (65-105)
[2022-05-06] MEDS: LABETALOL HCL INJ 100 MG/20 ML VIAL 20 MG IV PUSH ×2 (12:19→20:48)
--- NOTE | 2022-05-06 12:41 | P.PNNP_ITS ---
Progress Note: A&P Assessment and Plan (1) End stage renal disease: Code(s): N18.6 - End stage renal disease Status: Chronic Assessment and Plan: * resumed on CCPD every night * follow electrolytes, volume status, and clearance * replete K+ as needed (2) Infective endocarditis: Code(s): I33.0 - Acute and subacute infective endocarditis Status: Acute Assessment and Plan: * Echo results noted: * EF of 45 - 50% with a small mobile mitral valve vegetation measuring 1.2 cm as attached to the posterior mitral valve leaflet suggesting endocarditis. * on IV antibiotics * need SVETLANA?? -- not sure it would exchange clerk at this time * likely to need long course (6 weeks of antibiotics) * s/p LIJ JACC catheter with subsequent repositioning earlier today * continue supportive care (3) Peritonitis: Code(s): K65.9 - Peritonitis, unspecified Status: Acute Assessment and Plan: * as suggested by PD fluid: * 1700 nucleated cells with 80% neutrophils * peritoneal fluid cultures pending - nursing informs me today that this was never done(!) * repeat PD fluid cell count ordered * continue antibiotics (4) COVID-19: Code(s): U07.1 - COVID-19 Status: Acute Assessment and Plan: * test positive on 03/23/22 * received monoclonal antibody therapy * tested positive again on this hospital presentation * on steroids * weaned to room air (5) Hypertension: Code(s): I10 - Essential (primary) hypertension Status: Chronic Assessment and Plan: * quite elevated on admission * elevated on my visit today as well * increase nifedipine to 60mg qday starting tomorrow * follow trend of hemodynamics (6) Anemia: Code(s): D64.9 - Anemia, unspecified Status: Chronic Assessment and Plan: * due to ESRD and likely worsened by sepsis/infection * on Epogen 3x/week * follow H/H (7) Congestive heart failure (CHF): Qualifiers: Heart failure chronicity: acute Heart failure type: unspecified Qualified Code(s): I50.9 - Heart failure, unspecified Code(s): I50.9 - Heart failure, unspecified Status: Acute Assessment and Plan: * known history of this * CXR could be consistent with fluid/pulmonary edema * continue to push fluid removal with peritoneal dialysis * continue diuretics (8) Diabetes: Code(s): E11.9 - Type 2 diabetes mellitus without complications Status: Chronic Assessment and Plan: * follow accuchecks * on SSI Will continue to follow. Subjective Date/time seen: 05/06/22 12:41 Tolerated peritoneal dialysis treatment last night without any issues or pro blems; central line re-positioned by Radiology earlier this AM and tolerated this intervention as well; overall, he seems to be feeling reasonably well; no apparent distress noted; BP has been running quite high. Exam Narrative: General: WD/WN male in NAD Heart: normal S1 and S2; no rub Lungs: clear to auscultation Abdomen: soft, nontender, nondistended, positive bowel sounds Extremities: no cyanosis or clubbing; no edema; left foot/ankle deformity Skin: warm and dry Objective Data Vital Signs Vital Signs: Vital Signs Temp Pulse Res
--- NOTE | 2022-05-06 12:41 | PM.PNNEP ---
Progress Note: A&P Assessment and Plan (1) End stage renal disease: Code(s): N18.6 - End stage renal disease Status: Chronic Assessment and Plan: resumed on CCPD every night follow electrolytes, volume status, and clearance replete K+ as needed (2) Infective endocarditis: Code(s): I33.0 - Acute and subacute infective endocarditis Status: Acute Assessment and Plan: Echo results noted: EF of 45 - 50% with a small mobile mitral valve vegetation measuring 1.2 cm as attached to the posterior mitral valve leaflet suggesting endocarditis. on IV antibiotics need SVETLANA?? -- not sure it would price changer at this time likely to need long course (6 weeks of antibiotics) s/p LIJ JACC catheter with subsequent repositioning earlier today continue supportive care (3) Peritonitis: Code(s): K65.9 - Peritonitis, unspecified Status: Acute Assessment and Plan: as suggested by PD fluid: 1700 nucleated cells with 80% neutrophils peritoneal fluid cultures pending - nursing informs me today that this was never done(!) repeat PD fluid cell count ordered continue antibiotics (4) COVID-19: Code(s): U07.1 - COVID-19 Status: Acute Assessment and Plan: test positive on 03/23/22 received monoclonal antibody therapy tested positive again on this hospital presentation on steroids weaned to room air (5) Hypertension: Code(s): I10 - Essential (primary) hypertension Status: Chronic Assessment and Plan: quite elevated on admission elevated on my visit today as well increase nifedipine to 60mg qday starting tomorrow follow trend of hemodynamics (6) Anemia: Code(s): D64.9 - Anemia, unspecified Status: Chronic Assessment and Plan: due to ESRD and likely worsened by sepsis/infection on Epogen 3x/week follow H/H (7) Congestive heart failure (CHF): Qualifiers: Heart failure chronicity: acute Heart failure type: unspecified Qualified Code(s): I50.9 - Heart failure, unspecified Code(s): I50.9 - Heart failure, unspecified Status: Acute Assessment and Plan: known history of this CXR could be consistent with fluid/pulmonary edema continue to push fluid removal with peritoneal dialysis continue diuretics (8) Diabetes: Code(s): E11.9 - Type 2 diabetes mellitus without complications Status: Chronic Assessment and Plan: follow accuchecks on SSI Will continue to follow. Subjective Date/time seen: 05/06/22 12:41 Tolerated peritoneal dialysis treatment last night without any issues or problems; central line re-positioned by Radiology earlier this AM and tolerated this intervention as well; overall, he seems to be feeling reasonably well; no apparent distress noted; BP has been running quite high. Exam Narrative: General: WD/WN male in NAD Heart: normal S1 and S2; no rub Lungs: clear to auscultation Abdomen: soft, nontender, nondistended, positive bowel sounds Extremities: no cyanosis or clubbing; no edema; left foot/ankle deformity Skin: warm and dry Objective Data Vital Signs Vital Signs: Vital Signs Temp Pulse Resp BP Pulse Ox O2 Del Method 05/06/22 12:00 36.2 C L 72 22 H 223/113 H 99 05/06/22 12:00 Room Air 05/06/22 12:00 74 05/06/22 12:19 73 05/06/22 09:57 84 05/06/22 08:00 70 05/06/22 08:00 Room Air 05/06/22 08:00 36.2 C L 74 16 206/92 H 100 05/06/22 08:20 76 05/06/22 08:03 37.1 C 74 16 210/102 H 05/06/22 06:00 87 05/06/22 04:00 36.1 C L 78 12 174/110 H 99 05/06/22 04:00 76 05/06/22 04:00 Room Air 05/06/22 02:00 80 05/06/22 00:00 89 05/05/22 22:00 80 05/05/22 20:00 83 05/06/22 00:00 37.3 C 90 12 180/98 H 94 05/06/22 00:00 Room Air 05/05/22 20:00 Danielle
[2022-05-06] MEDS: CENTRAL LINE FLUSH 10 ML IV PUSH ×2 (13:11→17:19)
[2022-05-06 17:01] LABS: Glucose Point of Care 109 mg/dl (65-105)
--- NOTE | 2022-05-06 17:21 | PM.DS ---
DS: Admitting Diagnosis Discharge Date 05/06/22 Admitting Diagnosis Weakness DS: Summary Hospital Course Reason for hospitalization: Weakness Hospital Course: 56M with a past medical history of end stage renal disease on peritoneal dialysis, diabetes mellitus on insulin, peripheral vascular disease, heart failure, bicuspid aortic valve s/p bioprosthetic aortic valve 07/2020, coronary artery disease s/p CABG x1 07/2020, gastroesophageal reflux, hyperlipidemia and chronic anticoagulation who presented to the emergency department for weakness found to be febrile to 104.2 with chest xray showing diffuse bilateral infiltrates with a persistently positive COVID19 pcr test. Initially admitted to the ICU and started on vancomycin, cefepime and levofloxacin as well as dexamethasone for COVID19. BCX sent. Blood cultures grew staphylococcus aureus sensitive to Time Spent with Patient Time attestation: Total time spent providing and/or coordinating discharge services: DS: Data Data Completed and Pending Labs on day of discharge: Labs from last 24 hours 05/06/22 05/06/22 05/06/22 16:52 12:00 08:21 WBC RBC Hgb Hct MCV MCH MCHC RDW Plt Count MPV Sodium Potassium Chloride Carbon Dioxide Anion Gap BUN Creatinine Estim Creat Clear Calc Estimated GFR Glucose POC Capillary Glucose 109 H 164 H 117 H Calcium Phosphorus Magnesium Total Bilirubin AST ALT Alkaline Phosphatase Total Protein Albumin Ur L.pneumophila Ag 05/06/22 05/06/22 05/05/22 04:52 04:52 21:00 WBC 8.7 RBC 3.82 L Hgb 11.0 L Hct 34.6 L MCV 90.6 MCH 28.8 MCHC 31.8 L RDW 15.2 H Plt Count 164 MPV 10.3 Sodium 135 L Potassium 3.6 Chloride 101 Carbon Dioxide 28 Anion Gap 6 L BUN 46 H Creatinine 7.00 H Estim Creat Clear Calc 13 Estimated GFR 8 L Glucose 147 H POC Capillary Glucose 141 H Calcium 9.7 Phosphorus 3.6 Magnesium 2.0 Total Bilirubin 1.6 H AST 23 ALT 20 Alkaline Phosphatase 232 H Total Protein 5.0 L Albumin 2.4 L Ur L.pneumophila Ag 05/02/22 04:26 WBC RBC Hgb Hct MCV MCH MCHC RDW Plt Count MPV Sodium Potassium Chloride Carbon Dioxide Anion Gap BUN Creatinine Estim Creat Clear Calc Estimated GFR Glucose POC Capillary Glucose Calcium Phosphorus Magnesium Total Bilirubin AST ALT Alkaline Phosphatase Total Protein Albumin Ur L.pneumophila Ag Not detected Preliminary micro results at discharge 05/05/22 13:22 Anaerobic Culture - Preliminary Peritoneal Fluid 05/02/22 14:43 Blood Culture - Preliminary Blood 05/02/22 14:43 Blood Culture - Preliminary Blood Discharge Plan Discharge Consulting providers: Harjinder Colindres Patient Instructions: Heart Failure (GEN), Pain Management (DC), Chronic Hypertension (DC), COVID-19 (Coronavirus Disease 2019) (DC) Discharge Medications: No Action bumetanide 2 mg tablet 2 mg PO BID famotidine 40 mg tablet 20 mg PO BID venlafaxine 100 mg tablet 100 mg PO BID calcitriol 0.5 mcg capsule 0.5 mcg PO DAILY gabapentin 300 mg capsule 900 mg PO BID aspirin 81 mg tablet,chewable 81 mg PO DAILY Silver-Sept 200 mcg/gram Gel 1 applic topical DAILY Qty: 60 0RF Rx Instructions: to foot wound atorvastatin 40 mg Tablet 40 mg PO BID calcium acetate(phosphat bind) 667 mg capsule 2 cap PO TIDWMEAL calcium acetate(phosphat bind) 667 mg capsule 1,334 mg PO PRN PRN (Reason: snacks) Rx Instructions: take with snacks Date of admission: 04/30/22 19:22 Primary Care Provider: Gema Gutierrez Admitting Provider: Eulogio Mendoza Attending physician on admission: Eulogio Mendoza Condition: Serious Quality VTE Prophylaxis VTE prophylaxis: pharmacologic o
--- NOTE | 2022-05-06 17:35 | PM.IMPN ---
Progress Note: A&P Assessment and Plan (1) Sepsis: Code(s): A41.9 - Sepsis, unspecified organism Status: Acute Assessment and Plan: Patient with sepsis with septicemia present on admission with fever, tachycardia, lactic acidosis, leukocytosis and positive blood cultures. Chest x-ray showed diffuse lung disease pneumonia versus edema.?He was started on Vancomycin, Cefepime and Levaquin. Blood cultures grew MSSA.? Patient was COVID positive as well. Source of bacteremia could be 2nd bacterial PNA or Peritonitis. Echo does show mobile vegetation. He was not given liberal amount of IV fluids due his history of CHF and ESRD.? Fever has resolved.? Tachycardia has improved.? He was weaned to room air.? WBC normal now. Repeat BCx NGTD; Peritoneal cultures were never collected. Abx adjusted. Continue IV antibiotics with Nafcillin 2gm IV Q4hr. Continue Levaquin for peritonitis. Central line placed for IV abx at home. The tip however has migrated cephalad. Discussed with RN. Plan is to power flush the line tomorrow in hopes that it will migrated downward. If not, may need to be replaced. Possible discharge tomorrow if catheter in correct placement. 05/06/22 Patient line placed under fluoroscopy and appears to be in SVC. Nafcillin 2gq4h ordered and form signed for health care coordinator but agency will be unable to see the patient until next Monday. New agency requested and patient discharge is held until home health can be set up to deliver the nafcillin. Continue nafcillin 2g IV q4h starting from 05/02/22. (2) Infective endocarditis: Code(s): I33.0 - Acute and subacute infective endocarditis Status: Acute Assessment and Plan: Echo showing EF of 45-50% with a small mobile mitral valve vegetation measuring 1.2 cm as attached to the posterior mitral valve leaflet suggesting endocarditis. Cardiology following. Continue IV antibiotics with the adjustments as mentioned above. Discussed with Pharm D Infectious Disease. (3) Peritonitis: Code(s): K65.9 - Peritonitis, unspecified Status: Acute Assessment and Plan: Peritoneal fluid with 1700 nucleated cells with 80% neutrophils. BCx growing MSSA. Peritoneal culture not collected for unclear reasons (order in the chart). Continue IV abx. Plan to treat for peritonitis given the fluid cell count. Repeat cell count better. As above. - Repeat peritoneal fluid cultures ordered and are pending since 05/05/22. Will continue levofloxacin for now. (4) COVID-19: Code(s): U07.1 - COVID-19 Status: Acute Assessment and Plan: Patient tested positive for COVID-19 on 03/23/22. Patient received monoclonal antibody but did not receive any other treatment.? He was symptomatic with coughing and fever but never required any oxygen. Patient is again positive COVID-19 PCR on presentation here. Chest x-ray showed diffuse bilateral airspace disease. He was requiring 2 L of oxygen hence he was started on dexamethasone. Able to be weaned to room air. Chest x-ray findings could be related to pulmonary edema. After PD, a Chest x-ray was repeated and is now showing no acute findings. Given the improvement in his chest x-ray, the bacteremia and that he is no longer on oxygen, we stopped dexamethasone. 05/06/22 patient on room air with adequate oxygen saturation. Dexamethasone stopped. Cannot have remdesivir due to renal function. (5) Pneumonia: Code(s): J18.9 - Pneumonia, unspecified organism Status: Acute Assessment and Plan: See above. (6) Congestive heart failure (CHF): Qualifiers: Heart failure chronicity: acute Heart failure type: unspecified Qualified Code(s): I50.9 - Heart failure, unspecified Code(s): I50.9 - Heart failure, unspecified Status: Acute Assessment and Plan: CXR felt to be consistent with pulmonary edema. BNP>35K. Will continue peritoneal dialysis to control fluid status
[2022-05-06 20:02] LABS: Glucose Point of Care 192 mg/dl (65-105)
[2022-05-06] MEDS: levoFLOXacin 500 MG/D5W 100 ML 500 MG/100 ML BAG 100 MG IVPB (20:45)
[2022-05-07] VITALS (15 sets, daily range): BP systolic 163–221; BP diastolic 81–117; PULSE 73–99; RESP 16–20; TEMP 36.3–36.6; O2SAT 98–100
[2022-05-07] MEDS: hydrALAZINE HCL 20 MG/ML VIAL IV PUSH (00:59)
[2022-05-07] MEDS: CENTRAL LINE FLUSH 10 ML IV PUSH ×5 (01:38→20:43)
[2022-05-07 08:01] LABS: Influenza Control Positive
[2022-05-07 08:04] LABS: Glucose Point of Care 122 mg/dl (65-105)
[2022-05-07] MEDS: ACETAMINOPHEN 325 MG TABLET 650 MG PO (09:20)
[2022-05-07] MEDS: CALCIUM ACETATE 667 MG TABLET 1334 MG PO ×3 (09:22→16:54)
[2022-05-07] MEDS: BUMETANIDE 1 MG TABLET 2 MG PO ×2 (09:22→16:54)
[2022-05-07] MEDS: GABAPENTIN 300 MG CAPSULE 900 MG PO ×2 (09:22→16:54)
[2022-05-07] MEDS: calcitrioL 0.25 MCG CAPSULE 0.5 MCG PO (09:23)
[2022-05-07] MEDS: ASPIRIN 81 MG CHEWABLE TABLET PO (09:23)
[2022-05-07] MEDS: lisinopriL 20 MG TABLET PO ×2 (09:23→16:54)
[2022-05-07] MEDS: ENOXAPARIN 30 MG/0.3 ML SYRINGE SUB-Q (09:23)
[2022-05-07] MEDS: NIFEdipine 30 MG TAB.ER.24 60 MG PO (09:23)
[2022-05-07] MEDS: ATORVASTATIN 40 MG TABLET PO ×2 (09:24→16:54)
[2022-05-07] MEDS: carvediloL 12.5 MG TABLET PO ×2 (09:24→20:42)
[2022-05-07] MEDS: VENLAFAXINE HCL 25 MG TABLET 100 MG PO ×2 (09:24→16:54)
[2022-05-07] MEDS: FAMOTIDINE 20 MG TABLET PO (09:24)
[2022-05-07] MEDS: SILVERGEL (ELTA) 45 ML 1 APPLIC TOPICAL (09:25)
--- NOTE | 2022-05-07 10:17 | PC.NURSE ---
This patient, Pankaj Bautista, was transferred to [ [facility]] on 05/07/22 at 1010. Personal belongings sent with patient. Report given to [ Svitlana]. Appropriate documentation sent with patient.
[2022-05-07] MEDS: LABETALOL HCL INJ 100 MG/20 ML VIAL 20 MG IV PUSH (10:27)
--- NOTE | 2022-05-07 11:26 | PC.NURSE ---
This patient, Pankaj Bautista, was received from IMU on 05/07/22 at 1030. Patient/family oriented to unit policies and routines
[2022-05-07 12:07] LABS: Glucose Point of Care 139 mg/dl (65-105)
--- NOTE | 2022-05-07 12:40 | PM.PNNEP ---
Progress Note: A&P Assessment and Plan (1) End stage renal disease: Code(s): N18.6 - End stage renal disease Status: Chronic Assessment and Plan: resumed on CCPD every night follow electrolytes, volume status, and clearance replete K+ as needed (2) Infective endocarditis: Code(s): I33.0 - Acute and subacute infective endocarditis Status: Acute Assessment and Plan: Echo results noted: EF of 45 - 50% with a small mobile mitral valve vegetation measuring 1.2 cm as attached to the posterior mitral valve leaflet suggesting endocarditis. on IV antibiotics need SVETLANA?? -- not sure it would cell changer at this time likely to need long course (6 weeks of antibiotics) s/p LIJ JACC catheter with subsequent repositioning (done on 05/06/22) continue supportive care (3) Peritonitis: Code(s): K65.9 - Peritonitis, unspecified Status: Acute Assessment and Plan: as suggested by PD fluid: 1700 nucleated cells with 80% neutrophils original peritoneal fluid cultures was never done(!) however, repeat PD fluid cell count noted continue antibiotics (4) COVID-19: Code(s): U07.1 - COVID-19 Status: Acute Assessment and Plan: test positive on 03/23/22 received monoclonal antibody therapy tested positive again on this hospital presentation on steroids weaned to room air (5) Hypertension: Code(s): I10 - Essential (primary) hypertension Status: Chronic Assessment and Plan: quite elevated on admission a bit elevated currently increased nifedipine to 60mg qday follow trend of hemodynamics (6) Anemia: Code(s): D64.9 - Anemia, unspecified Status: Chronic Assessment and Plan: due to ESRD and likely worsened by sepsis/infection on Epogen 3x/week follow H/H (7) Congestive heart failure (CHF): Qualifiers: Heart failure chronicity: acute Heart failure type: unspecified Qualified Code(s): I50.9 - Heart failure, unspecified Code(s): I50.9 - Heart failure, unspecified Status: Acute Assessment and Plan: known history of this CXR could be consistent with fluid/pulmonary edema continue to push fluid removal with peritoneal dialysis continue diuretics (8) Diabetes: Code(s): E11.9 - Type 2 diabetes mellitus without complications Status: Chronic Assessment and Plan: follow accuchecks on SSI Not opposed to discharge from renal perspective when medically stable and outpatient arrangements made for antibiotics. Will continue to follow. Subjective Date/time seen: 05/07/22 12:40 Tolerated CCPD treatment overnight without any issue or troubles; sleeping comfortably on my visit today; tolerating antibiotic therapy; tolerated central line repositioning yesterday as well; overall, feels quite well; no apparent distress voiced. Exam Narrative: General: WD/WN male in NAD Heart: normal S1 and S2; no rub Lungs: clear to auscultation Abdomen: soft, nontender, nondistended, positive bowel sounds Extremities: no cyanosis or clubbing; no edema; left foot/ankle deformity Skin: warm and intact Objective Data Vital Signs Vital Signs: Vital Signs Temp Pulse Resp BP Pulse Ox O2 Del Method 05/07/22 11:17 174/86 H 05/07/22 10:27 90 05/07/22 10:26 208/98 H 05/07/22 10:22 36.4 C 91 20 212/99 H 99 05/07/22 08:00 85 05/07/22 08:00 Room Air 05/07/22 09:24 99 05/07/22 08:00 36.3 C L 86 20 221/117 H 98 05/07/22 08:03 36.6 C 95 18 164/81 H 05/07/22 04:00 95 05/07/22 04:00 36.6 C 93 18 164/81 H 99 05/07/22 03:58 99 Room Air 05/07/22 02:00 87 05/07/22 00:00 99 Room Air 05/07/22 00:00 73 05/06/22 23:33 36.5 C 79 18 189/99 H 99 05/06/22 22:00 73 05/06/22 20:00 97 Room Air 05/06/22 20:00 90 05/06
--- NOTE | 2022-05-07 12:40 | P.PNNP_ITS ---
Progress Note: A&P Assessment and Plan (1) End stage renal disease: Code(s): N18.6 - End stage renal disease Status: Chronic Assessment and Plan: * resumed on CCPD every night * follow electrolytes, volume status, and clearance * replete K+ as needed (2) Infective endocarditis: Code(s): I33.0 - Acute and subacute infective endocarditis Status: Acute Assessment and Plan: * Echo results noted: * EF of 45 - 50% with a small mobile mitral valve vegetation measuring 1.2 cm as attached to the posterior mitral valve leaflet suggesting endocarditis. * on IV antibiotics * need SVETLANA?? -- not sure it would change management analyst at this time * likely to need long course (6 weeks of antibiotics) * s/p LIJ JACC catheter with subsequent repositioning (done on 05/06/22) * continue supportive care (3) Peritonitis: Code(s): K65.9 - Peritonitis, unspecified Status: Acute Assessment and Plan: * as suggested by PD fluid: * 1700 nucleated cells with 80% neutrophils * original peritoneal fluid cultures was never done(!) * however, repeat PD fluid cell count noted * continue antibiotics (4) COVID-19: Code(s): U07.1 - COVID-19 Status: Acute Assessment and Plan: * test positive on 03/23/22 * received monoclonal antibody therapy * tested positive again on this hospital presentation * on steroids * weaned to room air (5) Hypertension: Code(s): I10 - Essential (primary) hypertension Status: Chronic Assessment and Plan: * quite elevated on admission * a bit elevated currently * increased nifedipine to 60mg qday * follow trend of hemodynamics (6) Anemia: Code(s): D64.9 - Anemia, unspecified Status: Chronic Assessment and Plan: * due to ESRD and likely worsened by sepsis/infection * on Epogen 3x/week * follow H/H (7) Congestive heart failure (CHF): Qualifiers: Heart failure chronicity: acute Heart failure type: unspecified Qualif ied Code(s): I50.9 - Heart failure, unspecified Code(s): I50.9 - Heart failure, unspecified Status: Acute Assessment and Plan: * known history of this * CXR could be consistent with fluid/pulmonary edema * continue to push fluid removal with peritoneal dialysis * continue diuretics (8) Diabetes: Code(s): E11.9 - Type 2 diabetes mellitus without complications Status: Chronic Assessment and Plan: * follow accuchecks * on SSI Not opposed to discharge from renal perspective when medically stable and outpatient arrangements made for antibiotics. Will continue to follow. Subjective Date/time seen: 05/07/22 12:40 Tolerated CCPD treatment overnight without any issue or troubles; sleeping comfortably on my visit today; tolerating antibiotic therapy; tolerated central line repositioning yesterday as well; overall, feels quite well; no apparent distress voiced. Exam 2 Narrative: General: WD/WN male in NAD Heart: normal S1 and S2; no rub Lungs: clear to auscultation Abdomen: soft, nontender, nondistended, positive bowel sounds Extremities: no cyanosis or clubbing; no edema; left foot/ankle deformity Skin: warm and intact Objective Data Vital Signs Vital Signs: Vital Signs
[2022-05-07 13:05] LABS: Anion Gap 7 mmol/L (8-16); Blood Urea Nitrogen 46 mg/dL (9-20); Calcium 9.5 mg/dL (8.4-10.2); Carbon Dioxide 28 mmol/L (22-30); Chloride 101 mmol/L (98-107); Estimated CRCL calculation 12 ml/min; Estimated Glomerular Filt Rate 8; Glucose 129 mg/dL (65-110); Potassium 3.6 mmol/L (3.4-5.0); Sodium 136 mmol/L (137-145)
--- NOTE | 2022-05-07 14:17 | PM.IMPN ---
Progress Note: A&P Assessment and Plan (1) Sepsis: Code(s): A41.9 - Sepsis, unspecified organism Status: Acute Assessment and Plan: Patient with sepsis with septicemia present on admission with fever, tachycardia, lactic acidosis, leukocytosis and positive blood cultures. Chest x-ray showed diffuse lung disease pneumonia versus edema.?He was started on Vancomycin, Cefepime and Levaquin. Blood cultures grew MSSA.? Patient was COVID positive as well. Source of bacteremia could be 2nd bacterial PNA or Peritonitis. Echo does show mobile vegetation. He was not given liberal amount of IV fluids due his history of CHF and ESRD.? Fever has resolved.? Tachycardia has improved.? He was weaned to room air.? WBC normal now. Repeat BCx NGTD; Peritoneal cultures were never collected. Abx adjusted. Continue IV antibiotics with Nafcillin 2gm IV Q4hr. Continue Levaquin for peritonitis. Central line placed for IV abx at home. The tip however has migrated cephalad. Discussed with RN. Plan is to power flush the line tomorrow in hopes that it will migrated downward. If not, may need to be replaced. Possible discharge tomorrow if catheter in correct placement. 05/06/22 Patient line placed under fluoroscopy and appears to be in SVC. Nafcillin 2gq4h ordered and form signed for health care consultant but agency will be unable to see the patient until next Monday. New agency requested and patient discharge is held until home health can be set up to deliver the nafcillin. Continue nafcillin 2g IV q4h starting from 05/02/22. 05/07/22 Continue treatment with nafcillin for MSSA endocarditis. Patient cannot be discharged until antibiotics can be delivered and insurance approval is pending. (2) Infective endocarditis: Code(s): I33.0 - Acute and subacute infective endocarditis Status: Acute Assessment and Plan: Echo showing EF of 45-50% with a small mobile mitral valve vegetation measuring 1.2 cm as attached to the posterior mitral valve leaflet suggesting endocarditis. Cardiology following. Continue IV antibiotics with the adjustments as mentioned above. Discussed with Pharm D Infectious Disease. (3) Peritonitis: Code(s): K65.9 - Peritonitis, unspecified Status: Acute Assessment and Plan: Peritoneal fluid with 1700 nucleated cells with 80% neutrophils. BCx growing MSSA. Peritoneal culture not collected for unclear reasons (order in the chart). Continue IV abx. Plan to treat for peritonitis given the fluid cell count. Repeat cell count better. As above. - Repeat peritoneal fluid cultures ordered and are pending since 05/05/22. Will continue levofloxacin for now. -05/07/22 peritoneal fluid from 05/05/22 sent has no organisms or WBCs on gram stain and no growth for the aerobic culture so far. Today is day #8 of treatment for peritonitis. Levofloxacin dose decreased from 750 mg to 500 mg on 05/04/22. (4) COVID-19: Code(s): U07.1 - COVID-19 Status: Acute Assessment and Plan: Patient tested positive for COVID-19 on 03/23/22. Patient received monoclonal antibody but did not receive any other treatment.? He was symptomatic with coughing and fever but never required any oxygen. Patient is again positive COVID-19 PCR on presentation here. Chest x-ray showed diffuse bilateral airspace disease. He was requiring 2 L of oxygen hence he was started on dexamethasone. Able to be weaned to room air. Chest x-ray findings could be related to pulmonary edema. After PD, a Chest x-ray was repeated and is now showing no acute findings. Given the improvement in his chest x-ray, the bacteremia and that he is no longer on oxygen, we stopped dexamethasone. -05/06/22 patient on room air with adequate oxygen saturation. Dexamethasone stopped. Cannot have remdesivir due to renal function. -05/07/22 patient on room air with adequate oxygenation. Will monitor. (5) Pneumonia: Code(s): J18.9 - Pneumonia,
[2022-05-07 18:15] LABS: Glucose Point of Care 158 mg/dl (65-105)
[2022-05-07 19:36] LABS: Glucose Point of Care 185 mg/dl (65-105)
[2022-05-08] VITALS (10 sets, daily range): BP systolic 143–184; BP diastolic 76–122; PULSE 68–97; RESP 18–20; TEMP 36.2–36.6; O2SAT 95–100
[2022-05-08] MEDS: CENTRAL LINE FLUSH 10 ML IV PUSH ×4 (04:35→20:30)
[2022-05-08] MEDS: LABETALOL HCL INJ 100 MG/20 ML VIAL 20 MG IV PUSH ×2 (04:35→20:30)
[2022-05-08] MEDS: CENTRAL LINE FLUSH 20 ML IV PUSH (04:35)
[2022-05-08 04:59] LABS: Anion Gap 2 mmol/L (8-16); Blood Urea Nitrogen 41 mg/dL (9-20); Calcium 9.9 mg/dL (8.4-10.2); Carbon Dioxide 33 mmol/L (22-30); Chloride 101 mmol/L (98-107); Estimated CRCL calculation 11 ml/min; Estimated Glomerular Filt Rate 8; Glucose 106 mg/dL (65-110); Potassium 3.5 mmol/L (3.4-5.0); Sodium 136 mmol/L (137-145)
--- NOTE | 2022-05-08 07:12 | PM.IMPN ---
Progress Note: A&P Assessment and Plan (1) Sepsis: Code(s): A41.9 - Sepsis, unspecified organism Status: Acute Assessment and Plan: Patient with sepsis with septicemia present on admission with fever, tachycardia, lactic acidosis, leukocytosis and positive blood cultures. Chest x-ray showed diffuse lung disease pneumonia versus edema.?He was started on Vancomycin, Cefepime and Levaquin. Blood cultures grew MSSA.? Patient was COVID positive as well. Source of bacteremia could be 2nd bacterial PNA or Peritonitis. Echo does show mobile vegetation. He was not given liberal amount of IV fluids due his history of CHF and ESRD.? Fever has resolved.? Tachycardia has improved.? He was weaned to room air.? WBC normal now. Repeat BCx NGTD; Peritoneal cultures were never collected. Abx adjusted. Continue IV antibiotics with Nafcillin 2gm IV Q4hr. Continue Levaquin for peritonitis. Central line placed for IV abx at home. The tip however has migrated cephalad. Discussed with RN. Plan is to power flush the line tomorrow in hopes that it will migrated downward. If not, may need to be replaced. Possible discharge tomorrow if catheter in correct placement. 05/06/22 Patient line placed under fluoroscopy and appears to be in SVC. Nafcillin 2gq4h ordered and form signed for cardiac care nurse but agency will be unable to see the patient until next Monday. New agency requested and patient discharge is held until home health can be set up to deliver the nafcillin. Continue nafcillin 2g IV q4h starting from 05/02/22. 05/07/22 Continue treatment with nafcillin for MSSA endocarditis. Patient cannot be discharged until antibiotics can be delivered and insurance approval is pending. 05/08/22 Continue treatment with nafcillin for MSSA endocarditis. Patient still awaiting insurance approval of agency for antibiotic delivery to his home. (2) Infective endocarditis: Code(s): I33.0 - Acute and subacute infective endocarditis Status: Acute Assessment and Plan: Echo showing EF of 45-50% with a small mobile mitral valve vegetation measuring 1.2 cm as attached to the posterior mitral valve leaflet suggesting endocarditis. Cardiology following. Continue IV antibiotics with the adjustments as mentioned above. Discussed with Pharm D Infectious Disease. (3) Peritonitis: Code(s): K65.9 - Peritonitis, unspecified Status: Acute Assessment and Plan: Peritoneal fluid with 1700 nucleated cells with 80% neutrophils. BCx growing MSSA. Peritoneal culture not collected for unclear reasons (order in the chart). Continue IV abx. Plan to treat for peritonitis given the fluid cell count. Repeat cell count better. As above. - Repeat peritoneal fluid cultures ordered and are pending since 05/05/22. Will continue levofloxacin for now. -05/07/22 peritoneal fluid from 05/05/22 sent has no organisms or WBCs on gram stain and no growth for the aerobic culture so far. Today is day #8 of treatment for peritonitis. Levofloxacin dose decreased from 750 mg to 500 mg on 05/04/22. -05/08/22 levofloxacin #9 and no growth from peritoneal fluid sent on 05/05. By day 10 this should be adequate treatment? Appreciate recommendations from Nephrology (4) COVID-19: Code(s): U07.1 - COVID-19 Status: Acute Assessment and Plan: Patient tested positive for COVID-19 on 03/23/22. Patient received monoclonal antibody but did not receive any other treatment.? He was symptomatic with coughing and fever but never required any oxygen. Patient is again positive COVID-19 PCR on presentation here. Chest x-ray showed diffuse bilateral airspace disease. He was requiring 2 L of oxygen hence he was started on dexamethasone. Able to be weaned to room air. Chest x-ray findings could be related to pulmonary edema. After PD, a Chest x-ray was repeated and is now showing no acute findings. Given the improvement in his chest x-ray, the bacteremia an
[2022-05-08 07:58] LABS: Glucose Point of Care 93 mg/dl (65-105)
[2022-05-08] MEDS: ATORVASTATIN 40 MG TABLET PO ×2 (08:11→17:21)
[2022-05-08] MEDS: ASPIRIN 81 MG CHEWABLE TABLET PO (08:11)
[2022-05-08] MEDS: calcitrioL 0.25 MCG CAPSULE 0.5 MCG PO (08:11)
[2022-05-08] MEDS: BUMETANIDE 1 MG TABLET 2 MG PO ×2 (08:11→17:21)
[2022-05-08] MEDS: CALCIUM ACETATE 667 MG TABLET 1334 MG PO ×3 (08:11→17:21)
[2022-05-08] MEDS: lisinopriL 20 MG TABLET PO ×2 (08:12→17:21)
[2022-05-08] MEDS: ENOXAPARIN 30 MG/0.3 ML SYRINGE SUB-Q (08:12)
[2022-05-08] MEDS: carvediloL 12.5 MG TABLET PO ×2 (08:12→20:27)
[2022-05-08] MEDS: FAMOTIDINE 20 MG TABLET PO (08:12)
[2022-05-08] MEDS: GABAPENTIN 300 MG CAPSULE 900 MG PO ×2 (08:12→17:21)
[2022-05-08] MEDS: NIFEdipine 30 MG TAB.ER.24 60 MG PO (08:13)
[2022-05-08] MEDS: SILVERGEL (ELTA) 45 ML 1 APPLIC TOPICAL (08:13)
[2022-05-08] MEDS: VENLAFAXINE HCL 25 MG TABLET 100 MG PO ×2 (08:13→17:21)
[2022-05-08 11:54] LABS: Glucose Point of Care 97 mg/dl (65-105)
--- NOTE | 2022-05-08 12:43 | P.PNNP_ITS ---
Progress Note: A&P Assessment and Plan (1) End stage renal disease: Code(s): N18.6 - End stage renal disease Status: Chronic Assessment and Plan: * continue CCPD every evening * follow electrolytes, volume status, and clearance * replete K+ as needed (2) Infective endocarditis: Code(s): I33.0 - Acute and subacute infective endocarditis Status: Acute Assessment and Plan: * Echo results noted: * EF of 45 - 50% with a small mobile mitral valve vegetation measuring 1.2 cm as attached to the posterior mitral valve leaflet suggesting endocarditis. * on IV antibiotics * need SVETLANA?? -- not sure it would international exchange coordinator at this time * likely to need long course (6 weeks of antibiotics) - awaiting for insurance approval * s/p LIJ JACC catheter with subsequent repositioning (done on 05/06/22) * continue supportive care (3) Peritonitis: Code(s): K65.9 - Peritonitis, unspecified Status: Acute Assessment and Plan: * as suggested by PD fluid: * 1700 nucleated cells with 80% neutrophils * original peritoneal fluid cultures was never done(!) * however, repeat PD fluid cell count noted * continue antibiotics (4) COVID-19: Code(s): U07.1 - COVID-19 Status: Acute Assessment and Plan: * test positive on 03/23/22 * received monoclonal antibody therapy * tested positive again on this hospital presentation * s/p course of steroid * on room air currently (5) Hypertension: Code(s): I10 - Essential (primary) hypertension Status: Chronic Assessment and Plan: * quite elevated on admission * still a bit elevated but better * increased nifedipine to 60mg qday * follow trend of hemodynamics (6) Anemia: Code(s): D64.9 - Anemia, unspecified Status: Chronic Assessment and Plan: * due to ESRD and likely worsened by sepsis/infection * on Epogen 3x/week * follow H/H (7) Congestive heart failure (CHF): Qualifiers: Heart failure chronicity: acute Heart failure type: unspecified Qualified Code(s): I50.9 - Heart failure, unspecified Code(s): I50.9 - Heart failure, unspecified Status: Acute Assessment and Plan: * known history of this * CXR could be consistent with fluid/pulmonary edema * continue to push fluid removal with peritoneal dialysis * continue diuretics (8) Diabetes: Code(s): E11.9 - Type 2 diabetes mellitus without complications Status: Chronic Assessment and Plan: * follow accuchecks * on SSI Not opposed to discharge from renal perspective if otherwise medically stable and outpatient arrangements made for antibiotics. Will continue to follow. Subjective Date/time seen: 05/08/22 12:43 Tolerated peritoneal dialysis treatment overnight without any issues or problems; breathing/respiratory status stable; BP still elevated but doing better with recent medication changes; overall, reports on issues/events overnight or earlier this morning; feels pretty good. Exam Narrative: General: WD/WN male in NAD Heart: normal S1 and S2; no rub Lungs: clear to auscultation Abdomen: soft, nontender, nondistended, positive bowel sounds Extremities: no cyanosis or clubbing; no edema; left foot/ankle deformity Skin: warm and intact Objective Data Vital Signs Vital Signs:
--- NOTE | 2022-05-08 12:43 | PM.PNNEP ---
Progress Note: A&P Assessment and Plan (1) End stage renal disease: Code(s): N18.6 - End stage renal disease Status: Chronic Assessment and Plan: continue CCPD every evening follow electrolytes, volume status, and clearance replete K+ as needed (2) Infective endocarditis: Code(s): I33.0 - Acute and subacute infective endocarditis Status: Acute Assessment and Plan: Echo results noted: EF of 45 - 50% with a small mobile mitral valve vegetation measuring 1.2 cm as attached to the posterior mitral valve leaflet suggesting endocarditis. on IV antibiotics need SVETLANA?? -- not sure it would meter changes records clerk at this time likely to need long course (6 weeks of antibiotics) - awaiting for insurance approval s/p LIJ JACC catheter with subsequent repositioning (done on 05/06/22) continue supportive care (3) Peritonitis: Code(s): K65.9 - Peritonitis, unspecified Status: Acute Assessment and Plan: as suggested by PD fluid: 1700 nucleated cells with 80% neutrophils original peritoneal fluid cultures was never done(!) however, repeat PD fluid cell count noted continue antibiotics (4) COVID-19: Code(s): U07.1 - COVID-19 Status: Acute Assessment and Plan: test positive on 03/23/22 received monoclonal antibody therapy tested positive again on this hospital presentation s/p course of steroid on room air currently (5) Hypertension: Code(s): I10 - Essential (primary) hypertension Status: Chronic Assessment and Plan: quite elevated on admission still a bit elevated but better increased nifedipine to 60mg qday follow trend of hemodynamics (6) Anemia: Code(s): D64.9 - Anemia, unspecified Status: Chronic Assessment and Plan: due to ESRD and likely worsened by sepsis/infection on Epogen 3x/week follow H/H (7) Congestive heart failure (CHF): Qualifiers: Heart failure chronicity: acute Heart failure type: unspecified Qualified Code(s): I50.9 - Heart failure, unspecified Code(s): I50.9 - Heart failure, unspecified Status: Acute Assessment and Plan: known history of this CXR could be consistent with fluid/pulmonary edema continue to push fluid removal with peritoneal dialysis continue diuretics (8) Diabetes: Code(s): E11.9 - Type 2 diabetes mellitus without complications Status: Chronic Assessment and Plan: follow accuchecks on SSI Not opposed to discharge from renal perspective if otherwise medically stable and outpatient arrangements made for antibiotics. Will continue to follow. Subjective Date/time seen: 05/08/22 12:43 Tolerated peritoneal dialysis treatment overnight without any issues or problems; breathing/respiratory status stable; BP still elevated but doing better with recent medication changes; overall, reports on issues/events overnight or earlier this morning; feels pretty good. Exam Narrative: General: WD/WN male in NAD Heart: normal S1 and S2; no rub Lungs: clear to auscultation Abdomen: soft, nontender, nondistended, positive bowel sounds Extremities: no cyanosis or clubbing; no edema; left foot/ankle deformity Skin: warm and intact Objective Data Vital Signs Vital Signs: Vital Signs Temp Pulse Resp BP Pulse Ox O2 Del Method 05/08/22 08:15 Room Air 05/08/22 09:07 95 Room Air 05/08/22 08:14 90 18 168/88 H 100 05/08/22 08:12 90 05/08/22 07:44 36.6 C 84 18 180/98 H 05/08/22 04:35 84 05/08/22 04:12 36.6 C 84 18 180/98 H 97 05/07/22 20:42 89 05/07/22 20:14 36.4 C L 89 17 163/98 H 100 05/07/22 16:07 36.4 C L 80 16 100 05/07/22 16:00 168/92 H Intake/Output Intake/Output: Intake & Output 05/05/22 05/06/22 05/07/22 05/08/22 23:59 23:59 23:59 23:59 Intake Total 1920 2340 1610 1102 Output
[2022-05-08 16:37] LABS: Glucose Point of Care 126 mg/dl (65-105)
[2022-05-08] MEDS: levoFLOXacin 500 MG/D5W 100 ML 500 MG/100 ML BAG 100 MG IVPB (20:30)
[2022-05-08 21:18] LABS: Glucose Point of Care 138 mg/dl (65-105)
[2022-05-09] VITALS (9 sets, daily range): BP systolic 127–201; BP diastolic 64–111; PULSE 81–89; RESP 16–24; TEMP 36.1–36.5; O2SAT 96–100
[2022-05-09] MEDS: CENTRAL LINE FLUSH 10 ML IV PUSH ×4 (04:21→20:51)
--- NOTE | 2022-05-09 07:14 | PM.IMPN ---
Progress Note: A&P Assessment and Plan (1) Sepsis: Code(s): A41.9 - Sepsis, unspecified organism Status: Acute Assessment and Plan: Patient with sepsis with septicemia present on admission with fever, tachycardia, lactic acidosis, leukocytosis and positive blood cultures. Chest x-ray showed diffuse lung disease pneumonia versus edema.?He was started on Vancomycin, Cefepime and Levaquin. Blood cultures grew MSSA.? Patient was COVID positive as well. Source of bacteremia could be 2nd bacterial PNA or Peritonitis. Echo does show mobile vegetation. He was not given liberal amount of IV fluids due his history of CHF and ESRD.? Fever has resolved.? Tachycardia has improved.? He was weaned to room air.? WBC normal now. Repeat BCx NGTD; Peritoneal cultures were never collected. Abx adjusted. Continue IV antibiotics with Nafcillin 2gm IV Q4hr. Continue Levaquin for peritonitis. Central line placed for IV abx at home. The tip however has migrated cephalad. Discussed with RN. Plan is to power flush the line tomorrow in hopes that it will migrated downward. If not, may need to be replaced. Possible discharge tomorrow if catheter in correct placement. 05/06/22 Patient line placed under fluoroscopy and appears to be in SVC. Nafcillin 2gq4h ordered and form signed for personal care aide but agency will be unable to see the patient until next Monday. New agency requested and patient discharge is held until home health can be set up to deliver the nafcillin. Continue nafcillin 2g IV q4h starting from 05/02/22. 05/07/22 Continue treatment with nafcillin for MSSA endocarditis. Patient cannot be discharged until antibiotics can be delivered and insurance approval is pending. 05/08/22 Continue treatment with nafcillin for MSSA endocarditis. Patient still awaiting insurance approval of agency for antibiotic delivery to his home. 05/09/22 Awaiting insurance approval. Continue with naficillin for MSSA endocarditis. (2) Infective endocarditis: Code(s): I33.0 - Acute and subacute infective endocarditis Status: Acute Assessment and Plan: Echo showing EF of 45-50% with a small mobile mitral valve vegetation measuring 1.2 cm as attached to the posterior mitral valve leaflet suggesting endocarditis. Cardiology following. Continue IV antibiotics with the adjustments as mentioned above. Discussed with Pharm D Infectious Disease. (3) Peritonitis: Code(s): K65.9 - Peritonitis, unspecified Status: Acute Assessment and Plan: Peritoneal fluid with 1700 nucleated cells with 80% neutrophils. BCx growing MSSA. Peritoneal culture not collected for unclear reasons (order in the chart). Continue IV abx. Plan to treat for peritonitis given the fluid cell count. Repeat cell count better. As above. - Repeat peritoneal fluid cultures ordered and are pending since 05/05/22. Will continue levofloxacin for now. -05/07/22 peritoneal fluid from 05/05/22 sent has no organisms or WBCs on gram stain and no growth for the aerobic culture so far. Today is day #8 of treatment for peritonitis. Levofloxacin dose decreased from 750 mg to 500 mg on 05/04/22. -05/08/22 levofloxacin #9 and no growth from peritoneal fluid sent on 05/05. By day 10 this should be adequate treatment? Appreciate recommendations from Nephrology -05/09/22 levofloxacin #10 still no growth from 05/05 peritoneal culture. Appreciate recommendations from Nephrology - can the levofloxacin be discontinued as the patient has completed 10 days of treatment and the culture has no growth? (4) COVID-19: Code(s): U07.1 - COVID-19 Status: Acute Assessment and Plan: Patient tested positive for COVID-19 on 03/23/22. Patient received monoclonal antibody but did not receive any other treatment.? He was symptomatic with coughing and fever but never required any oxygen. Patient is again positive COVID-19 PCR on presentation here. Chest x-ray showed diffu
[2022-05-09 07:50] LABS: Glucose Point of Care 93 mg/dl (65-105)
[2022-05-09] MEDS: ENOXAPARIN 30 MG/0.3 ML SYRINGE SUB-Q (08:59)
[2022-05-09] MEDS: EPOETIN ALFA-EPBX 10,000 UNITS/ML VIAL 10000 UNITS SUB-Q (08:59)
[2022-05-09] MEDS: FAMOTIDINE 20 MG TABLET PO (09:00)
[2022-05-09] MEDS: CALCIUM ACETATE 667 MG TABLET 1334 MG PO ×3 (09:00→18:37)
[2022-05-09] MEDS: GABAPENTIN 300 MG CAPSULE 900 MG PO ×2 (09:00→18:37)
[2022-05-09] MEDS: BUMETANIDE 1 MG TABLET 2 MG PO ×2 (09:00→18:37)
[2022-05-09] MEDS: lisinopriL 20 MG TABLET PO ×2 (09:00→18:37)
[2022-05-09] MEDS: carvediloL 12.5 MG TABLET PO ×2 (09:01→20:51)
[2022-05-09] MEDS: calcitrioL 0.25 MCG CAPSULE 0.5 MCG PO (09:01)
[2022-05-09] MEDS: ATORVASTATIN 40 MG TABLET PO ×2 (09:01→18:37)
[2022-05-09] MEDS: ASPIRIN 81 MG CHEWABLE TABLET PO (09:01)
[2022-05-09] MEDS: NIFEdipine 30 MG TAB.ER.24 60 MG PO (09:01)
[2022-05-09] MEDS: VENLAFAXINE HCL 25 MG TABLET 100 MG PO ×2 (09:01→18:37)
[2022-05-09] MEDS: SILVERGEL (ELTA) 45 ML 1 APPLIC TOPICAL (09:15)
--- NOTE | 2022-05-09 10:25 | P.PNNP_ITS ---
Progress Note: A&P Assessment and Plan (1) End stage renal disease: Code(s): N18.6 - End stage renal disease Status: Chronic Assessment and Plan: * continue CCPD every evening * volume status looks okay. * Yesterday's potassium was normal. * Creatinine and CO2 look okay as well. * Will continue same therapy. (2) Infective endocarditis: Code(s): I33.0 - Acute and subacute infective endocarditis Status: Acute Assessment and Plan: * Echo results noted: * EF of 45 - 50% with a small mobile mitral valve vegetation measuring 1.2 cm as attached to the posterior mitral valve leaflet suggesting endocarditis. * MSSA grew in the blood. * He is on nafcillin 2 g Q 4. * He has a JACC catheter in. * (3) Peritonitis: Code(s): K65.9 - Peritonitis, unspecified Status: Acute Assessment and Plan: * as suggested by PD fluid: * 1700 nucleated cells with 80% neutrophils on admission. * Repeat was normal. * Culture on the fluid on admission was not done. * continue antibiotics (4) COVID-19: Code(s): U07.1 - COVID-19 Status: Acute Assessment and Plan: * test positive on 03/23/22 * received monoclonal antibody therapy * tested positive again on this hospital presentation * s/p course of steroid * on room air currently * Still in respiratory isolation (5) Hypertension: Code(s): I10 - Essential (primary) hypertension Status: Chronic Assessment and Plan: * quite elevated on admission * still a bit elevated but better * increased nifedipine to 60mg qday * blood pressure ranging from 1 20-180. Follow for trending. (6) Anemia: Code(s): D64.9 - Anemia, unspecified Status: Chronic Assessment and Plan: * due to ESRD and likely worsened by sepsis/infection * on Epogen 3x/week subcutaneously * follow H/H (7) Congestive heart failure (CHF): Qualifiers: Heart failure chronicity: acute Heart failure type: unspecified Qualified Code(s): I50.9 - Heart failure, unspecified Code(s): I50.9 - Heart failure, unspecified Status: Acute Assessment and Plan: * known history of this * CXR could be consistent with fluid/pulmonary edema * continue to push fluid removal with peritoneal dialysis * continue diuretics (8) Diabetes: Code(s): E11.9 - Type 2 diabetes mellitus without complications Status: Chronic Assessment and Plan: * on Accu-Cheks and sliding-scale insulin per hospitalists. Subjective Date/time seen: 05/09/22 10:25 Interval history: Pankaj is on peritoneal dialysis and tolerating it well. Fluid cleared flows good. He got about 1500cc off last night. Seen at 7:00 a.m. No chest pain or shortness of breath bowels are okay. Eating well he says. Exam Narrative: General: WD/WN male in NAD Heart: normal S1 and S2; no rub or gallop Lungs: clear Abdomen: soft, nontender, nondistended, positive bowel sounds Extremities: no cyanosis or clubbing; no edema; left foot/ankle deformity Skin: no rash Objective Data Vital Signs Vital Signs: Vital Signs - 24 hr 05/08/22 14:20 05/08/22 20:27 05/08/22 20:30 Temperature 36.2 C L Pulse Rate 86 68 68
--- NOTE | 2022-05-09 10:25 | PM.PNNEP ---
Progress Note: A&P Assessment and Plan (1) End stage renal disease: Code(s): N18.6 - End stage renal disease Status: Chronic Assessment and Plan: continue CCPD every evening volume status looks okay. Yesterday's potassium was normal. Creatinine and CO2 look okay as well. Will continue same therapy. (2) Infective endocarditis: Code(s): I33.0 - Acute and subacute infective endocarditis Status: Acute Assessment and Plan: Echo results noted: EF of 45 - 50% with a small mobile mitral valve vegetation measuring 1.2 cm as attached to the posterior mitral valve leaflet suggesting endocarditis. MSSA grew in the blood. He is on nafcillin 2 g Q 4. He has a JACC catheter in. (3) Peritonitis: Code(s): K65.9 - Peritonitis, unspecified Status: Acute Assessment and Plan: as suggested by PD fluid: 1700 nucleated cells with 80% neutrophils on admission. Repeat was normal. Culture on the fluid on admission was not done. continue antibiotics (4) COVID-19: Code(s): U07.1 - COVID-19 Status: Acute Assessment and Plan: test positive on 03/23/22 received monoclonal antibody therapy tested positive again on this hospital presentation s/p course of steroid on room air currently Still in respiratory isolation (5) Hypertension: Code(s): I10 - Essential (primary) hypertension Status: Chronic Assessment and Plan: quite elevated on admission still a bit elevated but better increased nifedipine to 60mg qday blood pressure ranging from 1 20-180. Follow for trending. (6) Anemia: Code(s): D64.9 - Anemia, unspecified Status: Chronic Assessment and Plan: due to ESRD and likely worsened by sepsis/infection on Epogen 3x/week subcutaneously follow H/H (7) Congestive heart failure (CHF): Qualifiers: Heart failure chronicity: acute Heart failure type: unspecified Qualified Code(s): I50.9 - Heart failure, unspecified Code(s): I50.9 - Heart failure, unspecified Status: Acute Assessment and Plan: known history of this CXR could be consistent with fluid/pulmonary edema continue to push fluid removal with peritoneal dialysis continue diuretics (8) Diabetes: Code(s): E11.9 - Type 2 diabetes mellitus without complications Status: Chronic Assessment and Plan: on Accu-Cheks and sliding-scale insulin per hospitalists. Subjective Date/time seen: 05/09/22 10:25 Interval history: Pankaj is on peritoneal dialysis and tolerating it well. Fluid cleared flows good. He got about 1500cc off last night. Seen at 7:00 a.m. No chest pain or shortness of breath bowels are okay. Eating well he says. Exam Narrative: General: WD/WN male in NAD Heart: normal S1 and S2; no rub or gallop Lungs: clear Abdomen: soft, nontender, nondistended, positive bowel sounds Extremities: no cyanosis or clubbing; no edema; left foot/ankle deformity Skin: no rash Objective Data Vital Signs Vital Signs: Vital Signs - 24 hr 05/08/22 14:20 05/08/22 20:27 05/08/22 20:30 Temperature 36.2 C L Pulse Rate 86 68 68 Respiratory Rate 18 Blood Pressure 143/76 H Pulse Oximetry 100 Oxygen Delivery 05/08/22 20:42 05/09/22 00:52 05/09/22 06:00 Temperature 36.6 C 36.1 C L Pulse Rate 97 86 Respiratory Rate 20 18 Blood Pressure 184/122 H 127/64 164/105 H Pulse Oximetry 98 96 Oxygen Delivery 05/09/22 09:01 05/09/22 08:00 Temperature Pulse Rate 89 Respiratory Rate Blood Pressure Pulse Oximetry Oxygen Delivery Room Air Intake/Output Intake/Output: Intake & Output 05/06/22 05/07/22 05/08/22 05/09/22 23:59 23:59 23:59 23:59 Intake Total 2340 1610 1942 1180 Output Total 6837 950 1394 2420 Balance 173 [id number] -[id number] Meds/Results Medications: Active Medic
--- NOTE | 2022-05-09 11:19 | PCNWS ---
Weekly nutritional screen. Patient is tolerating current diet with adequate intake. Weight has been stable. No nutritional needs at this time.
[2022-05-09 11:54] LABS: Glucose Point of Care 150 mg/dl (65-105)
[2022-05-09 16:25] LABS: Glucose Point of Care 111 mg/dl (65-105)
[2022-05-09 20:35] LABS: Glucose Point of Care 140 mg/dl (65-105)
[2022-05-09] MEDS: LABETALOL HCL INJ 100 MG/20 ML VIAL 20 MG IV PUSH (20:50)
[2022-05-10] VITALS (9 sets, daily range): BP systolic 153–212; BP diastolic 83–119; PULSE 72–89; RESP 16; TEMP 36.4–36.6; O2SAT 98–100
[2022-05-10] MEDS: CENTRAL LINE FLUSH 10 ML IV PUSH ×4 (04:14→21:30)
[2022-05-10] MEDS: CENTRAL LINE FLUSH 20 ML IV PUSH (04:14)
[2022-05-10] MEDS: LABETALOL HCL INJ 100 MG/20 ML VIAL 20 MG IV PUSH ×2 (04:33→21:39)
[2022-05-10 04:35] LABS: Basophils Absolute Auto 0.1 K/mm3 (0.0-0.1); Basophils Percent Auto 0.8 % (0.2-1.2); Eosinophils Absolute Auto 0.1 K/mm3 (0-0.3); Eosinophils Percent Auto 2.3 % (0-4.4); Hematocrit 28.9 % (42.0-52.0); Hemoglobin 9.2 g/dL (14.0-18.0); Immature Granulocyte Absolute 0.12 K/mm3 (0.00-0.031); Lymphocytes Absolute Auto 1.31 K/mm3 (0.9-3.2); Lymphocytes Percent Auto 21.3 % (18.3-44.2); Mean Corpuscular HGB Conc 31.8 g/dl (32-36); Mean Corpuscular Hemoglobin 29.2 pg (26-34); Mean Corpuscular Volume 91.7 fl (80-100); Mean Platelet Volume 9.4 fl (7.4-10.4); Monocytes Absolute Auto 0.8 K/mm3 (0.1-0.6); Neutrophils Absolute Auto 3.7 K/mm3 (1.3-6.7); Neutrophils Percent Auto 60.6 % (45.5-73.1); Platelet Count Result 141 k/mm3 (150-375); Red Blood Count 3.15 M/mm3 (4.6-6.20); Red Cell Distribution Width 15.9 % (11.5-14.5); White Blood Count 6.1 K/mm3 (4.5-10.0)
[2022-05-10 04:45] LABS: Albumin Level 2.4 g/dL (3.5-5.1); Anion Gap 7 mmol/L (8-16); Blood Urea Nitrogen 36 mg/dL (9-20); Calcium 9.1 mg/dL (8.4-10.2); Carbon Dioxide 29 mmol/L (22-30); Chloride 101 mmol/L (98-107); Estimated CRCL calculation 11 ml/min; Estimated Glomerular Filt Rate 8; Glucose 99 mg/dL (65-110); Phosphorus 4.3 mg/dL (2.5-4.5); Potassium 3.2 mmol/L (3.4-5.0); Sodium 137 mmol/L (137-145)
[2022-05-10] MEDS: POTASSIUM CHLORIDE 20 MEQ TABLET PO (06:54)
--- NOTE | 2022-05-10 07:17 | PM.IMPN ---
Progress Note: A&P Assessment and Plan (1) Sepsis: Code(s): A41.9 - Sepsis, unspecified organism Status: Acute Assessment and Plan: Patient with sepsis with septicemia present on admission with fever, tachycardia, lactic acidosis, leukocytosis and positive blood cultures. Chest x-ray showed diffuse lung disease pneumonia versus edema.?He was started on Vancomycin, Cefepime and Levaquin. Blood cultures grew MSSA.? Patient was COVID positive as well. Source of bacteremia could be 2nd bacterial PNA or Peritonitis. Echo does show mobile vegetation. He was not given liberal amount of IV fluids due his history of CHF and ESRD.? Fever has resolved.? Tachycardia has improved.? He was weaned to room air.? WBC normal now. Repeat BCx NGTD; Peritoneal cultures were never collected. Abx adjusted. Continue IV antibiotics with Nafcillin 2gm IV Q4hr. Continue Levaquin for peritonitis. Central line placed for IV abx at home. The tip however has migrated cephalad. Discussed with RN. Plan is to power flush the line tomorrow in hopes that it will migrated downward. If not, may need to be replaced. Possible discharge tomorrow if catheter in correct placement. 05/06/22 Patient line placed under fluoroscopy and appears to be in SVC. Nafcillin 2gq4h ordered and form signed for health and social care teacher but agency will be unable to see the patient until next Monday. New agency requested and patient discharge is held until home health can be set up to deliver the nafcillin. Continue nafcillin 2g IV q4h starting from 05/02/22. 05/07/22 Continue treatment with nafcillin for MSSA endocarditis. Patient cannot be discharged until antibiotics can be delivered and insurance approval is pending. 05/08/22 Continue treatment with nafcillin for MSSA endocarditis. Patient still awaiting insurance approval of agency for antibiotic delivery to his home. 05/09/22 Awaiting insurance approval. Continue with naficillin for MSSA endocarditis. 05/10/22 Awaiting insurance approval. Continue with naficillin for MSSA endocarditis. (2) Infective endocarditis: Code(s): I33.0 - Acute and subacute infective endocarditis Status: Acute Assessment and Plan: Echo showing EF of 45-50% with a small mobile mitral valve vegetation measuring 1.2 cm as attached to the posterior mitral valve leaflet suggesting endocarditis. Cardiology following. Continue IV antibiotics with the adjustments as mentioned above. Discussed with Pharm D Infectious Disease. (3) Peritonitis: Code(s): K65.9 - Peritonitis, unspecified Status: Acute Assessment and Plan: Peritoneal fluid with 1700 nucleated cells with 80% neutrophils. BCx growing MSSA. Peritoneal culture not collected for unclear reasons (order in the chart). Continue IV abx. Plan to treat for peritonitis given the fluid cell count. Repeat cell count better. As above. - Repeat peritoneal fluid cultures ordered and are pending since 05/05/22. Will continue levofloxacin for now. -05/07/22 peritoneal fluid from 05/05/22 sent has no organisms or WBCs on gram stain and no growth for the aerobic culture so far. Today is day #8 of treatment for peritonitis. Levofloxacin dose decreased from 750 mg to 500 mg on 05/04/22. -05/08/22 levofloxacin #9 and no growth from peritoneal fluid sent on 05/05. By day 10 this should be adequate treatment? Appreciate recommendations from Nephrology -05/09/22 levofloxacin #10 still no growth from 05/05 peritoneal culture. Appreciate recommendations from Nephrology -05/10/22 levofloxacin discontinued (4) COVID-19: Code(s): U07.1 - COVID-19 Status: Acute Assessment and Plan: Patient tested positive for COVID-19 on 03/23/22. Patient received monoclonal antibody but did not receive any other treatment.? He was symptomatic with coughing and fever but never required any oxygen. Patient is again positive COVID-19 PCR on presentation here. Chest x-ray showed
--- NOTE | 2022-05-10 07:30 | P.PNNP_ITS ---
Progress Note: A&P Assessment and Plan (1) End stage renal disease: Code(s): N18.6 - End stage renal disease Status: Chronic Assessment and Plan: * continue CCPD every evening * volume status looks okay. * potassium is low today. Will supplement. * Creatinine and CO2 look okay. * Will continue same therapy. (2) Infective endocarditis: Code(s): I33.0 - Acute and subacute infective endocarditis Status: Acute Assessment and Plan: * Echo results noted: * EF of 45 - 50% with a small mobile mitral valve vegetation measuring 1.2 cm as attached to the posterior mitral valve leaflet suggesting endocarditis. * MSSA grew in the blood. * He is on nafcillin 2 g Q 4. * He has a JACC catheter in. * Patient is upset that it is taking so long for discharge. (3) Peritonitis: Code(s): K65.9 - Peritonitis, unspecified Status: Acute Assessment and Plan: * as suggested by PD fluid: * 1700 nucleated cells with 80% neutrophils on admission. * Repeat was normal. * Culture on the fluid on admission was not done. * continue antibiotics (4) COVID-19: Code(s): U07.1 - COVID-19 Status: Acute Assessment and Plan: * test positive on 03/23/22 * received monoclonal antibody therapy * tested positive again on this hospital presentation * s/p course of steroid * on room air currently * Still in respiratory isolation (5) Hypertension: Code(s): I10 - Essential (primary) hypertension Status: Chronic Assessment and Plan: * quite elevated on admission * Systolic running 170 to 212. * chest x-ray is clear. * He is on nifedipine 60, carvedilol 12.5, and lisinopril 20 b.i.d * Will increase nifedipine to twice a day. * blood pressure ranging from 1 20-180. Follow for trending. (6) Anemia: Code(s): D64.9 - Anemia, unspecified Status: Chronic Assessment and Plan: * due to ESRD and likely worsened by sepsis/infection * on Epogen 3x/week subcutaneously * Hemoglobin is up and down. (7) Congestive heart failure (CHF): Qualifiers: Heart failure chronicity: acute Heart failure type: unspecified Qualified Code(s): I50.9 - Heart failure, unspecified Code(s): I50.9 - Heart failure, unspecified Status: Acute Assessment and Plan: * known history of this * CXR could be consistent with fluid/pulmonary edema * continue to push fluid removal with peritoneal dialysis * continue diuretics (8) Diabetes: Code(s): E11.9 - Type 2 diabetes mellitus without complications Status: Chronic Assessment and Plan: * on Accu-Cheks and sliding-scale insulin per hospitalists. Additional Plan 1. The patient has end-stage renal disease. He is on peritoneal dialysis. They were unable due to the dialysis last night because of staffing. He will get dialysis this morning during the day and then will get his usual nocturnal dialysis and continue nocturnal treatments from then on. Because he had a little belly pain the other day we will check a fluid cell count and culture. However he does not have any belly pain or tenderness. The site looks okay. And is nontender. His volume status looks pretty good. Did have a lot of swelling. His lungs sound okay however his chest x-ray does have infiltrates. This could be from the COVID or could be from fluid. Try taken some fluid off with dialysi
--- NOTE | 2022-05-10 07:30 | PM.PNNEP ---
Progress Note: A&P Assessment and Plan (1) End stage renal disease: Code(s): N18.6 - End stage renal disease Status: Chronic Assessment and Plan: continue CCPD every evening volume status looks okay. potassium is low today. Will supplement. Creatinine and CO2 look okay. Will continue same therapy. (2) Infective endocarditis: Code(s): I33.0 - Acute and subacute infective endocarditis Status: Acute Assessment and Plan: Echo results noted: EF of 45 - 50% with a small mobile mitral valve vegetation measuring 1.2 cm as attached to the posterior mitral valve leaflet suggesting endocarditis. MSSA grew in the blood. He is on nafcillin 2 g Q 4. He has a JACC catheter in. Patient is upset that it is taking so long for discharge. (3) Peritonitis: Code(s): K65.9 - Peritonitis, unspecified Status: Acute Assessment and Plan: as suggested by PD fluid: 1700 nucleated cells with 80% neutrophils on admission. Repeat was normal. Culture on the fluid on admission was not done. continue antibiotics (4) COVID-19: Code(s): U07.1 - COVID-19 Status: Acute Assessment and Plan: test positive on 03/23/22 received monoclonal antibody therapy tested positive again on this hospital presentation s/p course of steroid on room air currently Still in respiratory isolation (5) Hypertension: Code(s): I10 - Essential (primary) hypertension Status: Chronic Assessment and Plan: quite elevated on admission Systolic running 170 to 212. chest x-ray is clear. He is on nifedipine 60, carvedilol 12.5, and lisinopril 20 b.i.d Will increase nifedipine to twice a day. blood pressure ranging from 1 20-180. Follow for trending. (6) Anemia: Code(s): D64.9 - Anemia, unspecified Status: Chronic Assessment and Plan: due to ESRD and likely worsened by sepsis/infection on Epogen 3x/week subcutaneously Hemoglobin is up and down. (7) Congestive heart failure (CHF): Qualifiers: Heart failure chronicity: acute Heart failure type: unspecified Qualified Code(s): I50.9 - Heart failure, unspecified Code(s): I50.9 - Heart failure, unspecified Status: Acute Assessment and Plan: known history of this CXR could be consistent with fluid/pulmonary edema continue to push fluid removal with peritoneal dialysis continue diuretics (8) Diabetes: Code(s): E11.9 - Type 2 diabetes mellitus without complications Status: Chronic Assessment and Plan: on Accu-Cheks and sliding-scale insulin per hospitalists. Additional Plan 1. The patient has end-stage renal disease. He is on peritoneal dialysis. They were unable due to the dialysis last night because of staffing. He will get dialysis this morning during the day and then will get his usual nocturnal dialysis and continue nocturnal treatments from then on. Because he had a little belly pain the other day we will check a fluid cell count and culture. However he does not have any belly pain or tenderness. The site looks okay. And is nontender. His volume status looks pretty good. Did have a lot of swelling. His lungs sound okay however his chest x-ray does have infiltrates. This could be from the COVID or could be from fluid. Try taken some fluid off with dialysis. 2. The patient hypertension. His blood pressure is generally controlled with amlodipine, hydralazine, lisinopril. I note that none of these are on his outpatient med list. He is on nifedipine and lisinopril now. Will leave these on board since his blood pressure is well controlled. 3. The patient has COVID-19. He had a month ago as well. Is not clear if these are just remnants or if this is a new infection or persistent infection. He did have hypoxia last night any does have pulmonary infiltrates which are suggestive. He
[2022-05-10 07:49] LABS: Glucose Point of Care 82 mg/dl (65-105)
[2022-05-10] MEDS: VENLAFAXINE HCL 25 MG TABLET 100 MG PO ×2 (08:40→16:39)
[2022-05-10] MEDS: GABAPENTIN 300 MG CAPSULE 900 MG PO ×2 (08:40→16:38)
[2022-05-10] MEDS: CALCIUM ACETATE 667 MG TABLET 1334 MG PO ×3 (08:41→16:37)
[2022-05-10] MEDS: NIFEdipine 30 MG TAB.ER.24 60 MG PO ×2 (08:42→16:38)
[2022-05-10] MEDS: lisinopriL 20 MG TABLET PO ×2 (08:42→16:37)
[2022-05-10] MEDS: ATORVASTATIN 40 MG TABLET PO ×2 (08:42→16:37)
[2022-05-10] MEDS: carvediloL 12.5 MG TABLET PO ×2 (08:43→21:30)
[2022-05-10] MEDS: FAMOTIDINE 20 MG TABLET PO (08:43)
[2022-05-10] MEDS: ASPIRIN 81 MG CHEWABLE TABLET PO (08:43)
[2022-05-10] MEDS: BUMETANIDE 1 MG TABLET 2 MG PO ×2 (08:43→16:38)
[2022-05-10] MEDS: calcitrioL 0.25 MCG CAPSULE 0.5 MCG PO (08:45)
[2022-05-10] MEDS: ENOXAPARIN 30 MG/0.3 ML SYRINGE SUB-Q (08:46)
[2022-05-10] MEDS: SILVERGEL (ELTA) 45 ML 1 APPLIC TOPICAL (08:47)
--- NOTE | 2022-05-10 09:32 | PCOTNOTE ---
Attempted to see patient, however patient having dialysis.
[2022-05-10 11:30] LABS: Glucose Point of Care 150 mg/dl (65-105)
--- NOTE | 2022-05-10 12:33 | PCOTNOTE ---
Attempted to see patient this pm, however patient was sleeping soundly upon entering and did not disturb for this reason.
[2022-05-10 16:28] LABS: Glucose Point of Care 108 mg/dl (65-105)
[2022-05-10] MEDS: cloNIDine HCL 0.1 MG TABLET PO (19:47)
[2022-05-10 22:20] LABS: Glucose Point of Care 185 mg/dl (65-105)
[2022-05-11 00:22] VITALS: BP 184/85; PULSE 74; RESP 16; TEMP 36.6; O2SAT 100
[2022-05-11] MEDS: hydrALAZINE HCL 20 MG/ML VIAL IV PUSH (00:28)
[2022-05-11 05:18] VITALS: BP 156/87; PULSE 96; RESP 16; TEMP 36.4; O2SAT 100
[2022-05-11 05:33] LABS: Hematocrit 31.6 % (42.0-52.0); Mean Corpuscular HGB Conc 31.6 g/dl (32-36); Mean Corpuscular Hemoglobin 29.2 pg (26-34); Mean Corpuscular Volume 92.1 fl (80-100); Mean Platelet Volume 9.5 fl (7.4-10.4); Platelet Count Result 167 k/mm3 (150-375); Red Blood Count 3.43 M/mm3 (4.6-6.20); White Blood Count 7.6 K/mm3 (4.5-10.0)
[2022-05-11] MEDS: CENTRAL LINE FLUSH 10 ML IV PUSH (05:42)
[2022-05-11 05:43] LABS: Albumin Level 2.7 g/dL (3.5-5.1); Anion Gap 5 mmol/L (8-16); Blood Urea Nitrogen 34 mg/dL (9-20); Calcium 9.3 mg/dL (8.4-10.2); Carbon Dioxide 29 mmol/L (22-30); Chloride 103 mmol/L (98-107); Estimated CRCL calculation 11 ml/min; Estimated Glomerular Filt Rate 8; Glucose 118 mg/dL (65-110); Phosphorus 4.7 mg/dL (2.5-4.5); Potassium 3.5 mmol/L (3.4-5.0); Sodium 137 mmol/L (137-145)
--- NOTE | 2022-05-11 07:48 | P.PNNP_ITS ---
Progress Note: A&P Assessment and Plan (1) End stage renal disease: Code(s): N18.6 - End stage renal disease Status: Chronic Assessment and Plan: * continue CCPD every evening * volume status looks okay. * Electrolytes look okay. * Creatinine and CO2 look okay. * Will continue same therapy. * Ultrafiltration a bit low today. See said this happens occasionally. Will keep the same treatment. Volume status looks okay. (2) Infective endocarditis: Code(s): I33.0 - Acute and subacute infective endocarditis Status: Acute Assessment and Plan: * Echo results noted: * EF of 45 - 50% with a small mobile mitral valve vegetation measuring 1.2 cm as attached to the posterior mitral valve leaflet suggesting endocarditis. * MSSA grew in the blood. * He is on nafcillin 2 g Q 4. * He has a JACC catheter in. * Insurance is denying the home antibiotics for some reason. Red tape is keeping pt in the hospital. (3) Peritonitis: Code(s): K65.9 - Peritonitis, unspecified Status: Acute Assessment and Plan: * as suggested by PD fluid: * 1700 nucleated cells with 80% neutrophils on admission. * Repeat was normal. * Culture on the fluid on admission was not done. * continue antibiotics (4) COVID-19: Code(s): U07.1 - COVID-19 Status: Acute Assessment and Plan: * test positive on 03/23/22 * received monoclonal antibody therapy * tested positive again on this hospital presentation * s/p course of steroid * on room air currently * isolation timed out. (5) Hypertension: Code(s): I10 - Essential (primary) hypertension Status: Chronic Assessment and Plan: * quite elevated on admission * Systolic running 170 to 212. * chest x-ray is clear. * He is on nifedipine 60 BID, carvedilol 12.5, and lisinopril 20 b.i.d * BP better this am (6) Anemia: Code(s): D64.9 - Anemia, unspecified Status: Chronic Assessment and Plan: * due to ESRD and likely worsened by sepsis/infection * on Epogen 3x/week subcutaneously * Hemoglobin is target today (7) Congestive heart failure (CHF): Qualifiers: Heart failure chronicity: acute Heart failure type: unspecified Qualified Code(s): I50.9 - Heart failure, unspecified Code(s): I50.9 - Heart failure, unspecified Status: Acute Assessment and Plan: * known history of this * CXR could be consistent with fluid/pulmonary edema * removing fluid with diuretics and PD * continue diuretics * on room air, lying flat comfortably. (8) Diabetes: Code(s): E11.9 - Type 2 diabetes mellitus without complications Status: Chronic Assessment and Plan: * on Accu-Cheks and sliding-scale insulin per hospitalists. Additional Plan 1. The patient has end-stage renal disease. He is on peritoneal dialysis. They were unable due to the dialysis last night because of staffing. He will get dialysis this morning during the day and then will get his usual nocturnal dialysis and continue nocturnal treatments from then on. Because he had a little belly pain the other day we will check a fluid cell count and culture. However he does not have any belly pain or tenderness. The site looks okay. And is nontender. His volume status looks pretty good. Did have a lot of swelling. His lungs sound okay however his chest x-ray does have infiltrates.
--- NOTE | 2022-05-11 07:48 | PM.PNNEP ---
Progress Note: A&P Assessment and Plan (1) End stage renal disease: Code(s): N18.6 - End stage renal disease Status: Chronic Assessment and Plan: continue CCPD every evening volume status looks okay. Electrolytes look okay. Creatinine and CO2 look okay. Will continue same therapy. Ultrafiltration a bit low today. See said this happens occasionally. Will keep the same treatment. Volume status looks okay. (2) Infective endocarditis: Code(s): I33.0 - Acute and subacute infective endocarditis Status: Acute Assessment and Plan: Echo results noted: EF of 45 - 50% with a small mobile mitral valve vegetation measuring 1.2 cm as attached to the posterior mitral valve leaflet suggesting endocarditis. MSSA grew in the blood. He is on nafcillin 2 g Q 4. He has a JACC catheter in. Insurance is denying the home antibiotics for some reason. Red tape is keeping pt in the hospital. (3) Peritonitis: Code(s): K65.9 - Peritonitis, unspecified Status: Acute Assessment and Plan: as suggested by PD fluid: 1700 nucleated cells with 80% neutrophils on admission. Repeat was normal. Culture on the fluid on admission was not done. continue antibiotics (4) COVID-19: Code(s): U07.1 - COVID-19 Status: Acute Assessment and Plan: test positive on 03/23/22 received monoclonal antibody therapy tested positive again on this hospital presentation s/p course of steroid on room air currently isolation timed out. (5) Hypertension: Code(s): I10 - Essential (primary) hypertension Status: Chronic Assessment and Plan: quite elevated on admission Systolic running 170 to 212. chest x-ray is clear. He is on nifedipine 60 BID, carvedilol 12.5, and lisinopril 20 b.i.d BP better this am (6) Anemia: Code(s): D64.9 - Anemia, unspecified Status: Chronic Assessment and Plan: due to ESRD and likely worsened by sepsis/infection on Epogen 3x/week subcutaneously Hemoglobin is target today (7) Congestive heart failure (CHF): Qualifiers: Heart failure chronicity: acute Heart failure type: unspecified Qualified Code(s): I50.9 - Heart failure, unspecified Code(s): I50.9 - Heart failure, unspecified Status: Acute Assessment and Plan: known history of this CXR could be consistent with fluid/pulmonary edema removing fluid with diuretics and PD continue diuretics on room air, lying flat comfortably. (8) Diabetes: Code(s): E11.9 - Type 2 diabetes mellitus without complications Status: Chronic Assessment and Plan: on Accu-Cheks and sliding-scale insulin per hospitalists. Additional Plan 1. The patient has end-stage renal disease. He is on peritoneal dialysis. They were unable due to the dialysis last night because of staffing. He will get dialysis this morning during the day and then will get his usual nocturnal dialysis and continue nocturnal treatments from then on. Because he had a little belly pain the other day we will check a fluid cell count and culture. However he does not have any belly pain or tenderness. The site looks okay. And is nontender. His volume status looks pretty good. Did have a lot of swelling. His lungs sound okay however his chest x-ray does have infiltrates. This could be from the COVID or could be from fluid. Try taken some fluid off with dialysis. 2. The patient hypertension. His blood pressure is generally controlled with amlodipine, hydralazine, lisinopril. I note that none of these are on his outpatient med list. He is on nifedipine and lisinopril now. Will leave these on board since his blood pressure is well controlled. 3. The patient has COVID-19. He had a month ago as well. Is not clear if these are just remnants or if this is a new infection or persistent infection. He did have hypo
[2022-05-11] MEDS: CALCIUM ACETATE 667 MG TABLET 1334 MG PO ×2 (07:56→11:52)
[2022-05-11 07:57] LABS: Glucose Point of Care 96 mg/dl (65-105)
[2022-05-11] MEDS: VENLAFAXINE HCL 25 MG TABLET 100 MG PO (08:03)
[2022-05-11] MEDS: ATORVASTATIN 40 MG TABLET PO (08:03)
[2022-05-11] MEDS: EPOETIN ALFA-EPBX 10,000 UNITS/ML VIAL 10000 UNITS SUB-Q (08:03)
[2022-05-11] MEDS: FAMOTIDINE 20 MG TABLET PO (08:03)
[2022-05-11] MEDS: lisinopriL 20 MG TABLET PO (08:03)
[2022-05-11] MEDS: ENOXAPARIN 30 MG/0.3 ML SYRINGE SUB-Q (08:03)
[2022-05-11] MEDS: GABAPENTIN 300 MG CAPSULE 900 MG PO (08:03)
[2022-05-11] MEDS: ASPIRIN 81 MG CHEWABLE TABLET PO (08:03)
[2022-05-11] MEDS: calcitrioL 0.25 MCG CAPSULE 0.5 MCG PO (08:03)
[2022-05-11] MEDS: BUMETANIDE 1 MG TABLET 2 MG PO (08:03)
[2022-05-11 08:04] VITALS: PULSE 97
[2022-05-11] MEDS: SILVERGEL (ELTA) 45 ML 1 APPLIC TOPICAL (08:04)
[2022-05-11] MEDS: NIFEdipine 30 MG TAB.ER.24 60 MG PO (08:04)
[2022-05-11] MEDS: carvediloL 12.5 MG TABLET PO (08:04)
--- NOTE | 2022-05-11 08:50 | PCOTNOTE ---
Per RN, patient up in room Independently. Patient in bathroom toileting upon therapist's arrival. Patient declined need for OT for ADL assist, or UE exercise HEP for continued maintenance. Patient requested therapist d/c patient from OT.
--- NOTE | 2022-05-11 09:23 | PCPTNOTE ---
Attempted to see patient for PT at this time, however patient refused. Patient reported he does not want therapy and if he changes his mind he'll let therapy know.
[2022-05-11 11:51] LABS: Glucose Point of Care 143 mg/dl (65-105)
--- NOTE | 2022-05-11 13:03 | PM.DS ---
DS: Admitting Diagnosis Discharge Date 05/11/22 Admitting Diagnosis Weakness DS: Discharge Diagnosis Discharge Diagnosis (1) Sepsis: Code(s): A41.9 - Sepsis, unspecified organism Status: Acute Assessment and Plan: Patient with sepsis with septicemia present on admission with fever, tachycardia, lactic acidosis, leukocytosis and positive blood cultures. Chest x-ray showed diffuse lung disease pneumonia versus edema.?He was started on Vancomycin, Cefepime and Levaquin. Blood cultures grew MSSA.? Patient was COVID positive as well. Source of bacteremia could be 2nd bacterial PNA or Peritonitis. Echo does show mobile vegetation. He was not given liberal amount of IV fluids due his history of CHF and ESRD.? Fever has resolved.? Tachycardia has improved.? He was weaned to room air.? WBC normal now. Repeat BCx NGTD; Peritoneal cultures were never collected. Abx adjusted. Continue IV antibiotics with Nafcillin 2gm IV Q4hr. Continue Levaquin for peritonitis. Central line placed for IV abx at home. The tip however has migrated cephalad. Discussed with RN. Plan is to power flush the line tomorrow in hopes that it will migrated downward. If not, may need to be replaced. Possible discharge tomorrow if catheter in correct placement. 05/06/22 Patient line placed under fluoroscopy and appears to be in SVC.???Nafcillin 2g q4h ordered and form signed for home care associate but agency will be unable to see the patient until next Monday.? New agency requested and patient discharge is held until home health can be set up to deliver the nafcillin. Continue nafcillin 2g IV q4h starting from 05/02/22.? 05/07/22 Continue treatment with nafcillin for MSSA endocarditis.? Patient cannot be discharged until antibiotics can be delivered and insurance approval is pending.? 05/08/22 Continue treatment with nafcillin for MSSA endocarditis.? Patient still awaiting insurance approval of agency for antibiotic delivery to his home.? 05/09/22 Awaiting insurance approval.? Continue with naficillin for MSSA endocarditis.? 05/10/22 Awaiting insurance approval.? Continue with naficillin for MSSA endocarditis.? 04/2022 Discharge to home to complete IV nafcillin. (2) Infective endocarditis: Code(s): I33.0 - Acute and subacute infective endocarditis Status: Acute Assessment and Plan: Echo showing EF of 45-50% with a small mobile mitral valve vegetation measuring 1.2 cm as attached to the posterior mitral valve leaflet suggesting endocarditis. Cardiology following. Continue IV antibiotics with the adjustments as mentioned above.? Discussed with Pharm D Infectious Disease. -Discharge to home with treatment of nafcillin (3) COVID-19: Code(s): U07.1 - COVID-19 Status: Acute Assessment and Plan: Patient tested positive for COVID-19 on 03/23/22. Patient received monoclonal antibody but did not receive any other treatment.? He was symptomatic with coughing and fever but never required any oxygen. Patient is again positive COVID-19 PCR on presentation here.? Chest x-ray showed diffuse bilateral airspace disease. He was requiring 2 L of oxygen hence he was started on dexamethasone. Able to be weaned to room air.? Chest x-ray findings could be related to pulmonary edema. After PD, a Chest x-ray was repeated and is now showing no acute findings.? Given the improvement in his chest x-ray, the bacteremia and that he is no longer on oxygen, we stopped dexamethasone. -05/06/22 patient on room air with adequate oxygen saturation.? Dexamethasone stopped.? Cannot have remdesivir due to renal function. -05/07/22 patient on room air with adequate oxygenation.? Will monitor. ? -05/08/22 on room air with adequate oxygenation. Will monitor.? -05/09/22 adequate saturation on room air.? Will monitor. 05/10/22 patient off isolation! (4) Peritonitis: Code(s): K65.9 - Peritonitis, unspecified Status: Acute Assessment and Plan: Peritoneal fluid with
== END 2022-05-11 14:10 | disposition home health service (06) | DRG 871 ==
LOC: ANHED 17:09 → ANHICU 21:17 → ANHIMU 05-03 11:43 → ANH2MED 05-07 19:40 → ANHICU 05-12 13:47 → ANHIMU 05-12 13:47
PROVIDERS: Internal Medicine; Internal Medicine Nephrology; Physician Assistant; Admitting Provider Internal Medicine; Emergency Provider Emergency Medicine; PCP Nurse Practitioner Family; Visit Provider Family Medicine
DX: A41.01 Sepsis due to Methicillin susceptible Staphylococcus aureus (principal); I33.0 Acute and subacute infective endocarditis; J18.9 Pneumonia, unspecified organism; U07.1 COVID-19; N18.6 End stage renal disease; K65.9 Peritonitis, unspecified; I13.2 Hypertensive heart and chronic kidney disease with heart failure and with stage 5 chronic kidney disease, or end stage renal disease; I50.42 Chronic combined systolic (congestive) and diastolic (congestive) heart failure; L97.419 Non-pressure chronic ulcer of right heel and midfoot with unspecified severity; I16.0 Hypertensive urgency; E11.621 Type 2 diabetes mellitus with foot ulcer; E11.22 Type 2 diabetes mellitus with diabetic chronic kidney disease; D63.1 Anemia in chronic kidney disease; E11.319 Type 2 diabetes mellitus with unspecified diabetic retinopathy without macular edema; E11.40 Type 2 diabetes mellitus with diabetic neuropathy, unspecified; E11.51 Type 2 diabetes mellitus with diabetic peripheral angiopathy without gangrene; S82.892A Other fracture of left lower leg, initial encounter for closed fracture; X58.XXXA Exposure to other specified factors, initial encounter; E78.2 Mixed hyperlipidemia; K21.9 Gastro-esophageal reflux disease without esophagitis; K44.9 Diaphragmatic hernia without obstruction or gangrene; N25.0 Renal osteodystrophy; Z66 Do not resuscitate; I69.322 Dysarthria following cerebral infarction; Z99.2 Dependence on renal dialysis; Z79.82 Long term (current) use of aspirin; Z79.899 Other long term (current) drug therapy; Z91.81 History of falling; Z87.891 Personal history of nicotine dependence; Z95.2 Presence of prosthetic heart valve; Z95.1 Presence of aortocoronary bypass graft; Z89.412 Acquired absence of left great toe
CPT/HCPCS: 36415; 36556; 36600; 70450; 71045; 73610; 73630; 77001; 80048; 80053; 80069; 80202; 81001; 82565; 82805; 82948; 83036; 83605; 83735; 83880; 84100; 84145; 85025; 85027; 85055; 85610; 85730; 86140; 86706; 87040; 87070; 87075; 87077; 87186; 87205; 87340; 87449; 87804; 87899; 89051; 90945; 93005; 93306; 96374; 97110; 97161; 97166; 97530; 97535; 99285; A9270; C1751; C9803; J0131; J0360; J0692; J1100; J1650; J1815; J1956; J2543; J3370; J7030; Q5105; U0003; U0005

== ENCOUNTER 2022-06-02 03:25 | Emergency (ER) | payer OTHER, MEDICARE, SELFPAY ==
[2022-06-02] VITALS (23 sets, daily range): BP systolic 155–258; BP diastolic 96–156; PULSE 93–106; RESP 0–35; TEMP 36.6; O2SAT 96–100
--- NOTE | ~2022-06-02 | XR_ITS ---
EXAMINATION: XR chest 2V DATE: 06/02/2022 04:40 INDICATION: Shortness of breath. TECHNIQUE: Frontal and lateral views of the chest were obtained. COMPARISON: Chest single view 05/06/2022, CT abdomen and pelvis 03/29/2021 FINDINGS: Mine B lines are noted, consistent mild pulmonary edema. There is mild atelectasis in rig ht perihilar region. No pleural effusion or pneumothorax. The heart size is normal. There are changes of heart valve replacement. A left internal jugular central venous catheter is seen with tip at the superior cavoatrial junction. IMPRESSION: 1. Mild pulmonary edema. Reviewed, dictated and finalized at location A. IMPRESSION: 1. Mild pulmonary edema.
--- NOTE | 2022-06-02 04:05 | ED.GENADULT ---
HPI - General Adult General Chief complaint: Shortness of Breath/Dyspnea Stated complaint: short of breath after home dialysis Time Seen by Provider: 06/02/22 03:47 History of Present Illness HPI narrative: 56-year-old male with history of end-stage renal disease, diabetes and recent COVID infection presented emerged department for evaluation of worsening shortness of breath. Patient states that he completed his home hemodialysis at approximately 3:00. Patient states after that he began developing some shortness of breath. Patient's blood pressure upon arrival was 212/124. Patient states he typically runs 160-180 systolic. Patient states often his blood pressure does greater than 200. Related Data Home Medications Medication Instructions Recorded Confirmed bumetanide 2 mg tablet 2 mg PO BID 10/20/21 04/30/22 calcitriol 0.5 mcg capsule 0.5 mcg PO DAILY 10/20/21 04/30/22 famotidine 40 mg tablet 20 mg PO BID 10/20/21 04/30/22 gabapentin 300 mg capsule 900 mg PO BID 10/20/21 04/30/22 venlafaxine 100 mg tablet 100 mg PO BID 10/20/21 04/30/22 calcium acetate(phosphat bind) 667 1,334 mg PO PRN PRN snacks 04/30/22 04/30/22 mg capsule calcium acetate(phosphat bind) 667 2 cap PO TIDWMEAL 04/30/22 04/30/22 mg capsule Allergies Allergy/AdvReac Type Severity Reaction Status Date / Time No Known Allergies Allergy Verified 05/26/22 14:59 Review of Systems Review of Systems: CONSTITUTIONAL: Denies fever, chills, or sweats. EYES: Denies visual changes, redness, or discharge. ENT: Denies rhinorrhea, congestion, sore throat, or otalgia. CARDIOVASCULAR: Denies chest pain, palpitations, or edema. RESPIRATORY: Had shortness of breath at home that is currently resolved. GASTROINTESTINAL: Denies abdominal pain, nausea, vomiting, or diarrhea. GENITOURINARY: Denies dysuria or hematuria. SKIN: Denies rash or itching. MUSCULOSKELETAL: Denies back pain, joint pain, or myalgia. NEUROLOGIC: Denies headache, numbness, or weakness. PMFSH Past Medical History Medical History Arthritis Bicuspid aortic valve Severe aortic stenosis status post bioprosthetic aortic valve replacement. Cerebrovascular accident (09/21/20) Thought to be embolic in nature, on long-term anticoagulation. Residual dysarthria. 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 Required temporary dialysis for a few months in spring 2019. Combined systolic and diastolic congestive heart failure Echocardiogram dated 11/03/2020 showed mildly enlarged left ventricular chamber with normal left ventricular systolic function and ejection fraction of 55 to 60% (as low as 35% on previous echos), moderate increased LV wall thickness, grade 3 diastolic dysfunction, and mild mitral and tricuspid valve regurgitation. Diabetic foot ulcer Dialysis patient End-stage renal disease on peritoneal dialysis Essential hypertension Finger fracture Former smoker 50 pack year smoking history, quit in 1987. Gastroesophageal reflux disease Hiatal hernia History of hemodialysis History of acute kidney injury on chronic kidney disease requiring hemodialysis in 2019. He has had a right IJ temporary dialysis catheter placed in 01/2020 and then a tunneled dialysis catheter in 02/2020, which was removed in 05/2020. History of osteomyelitis Impingement syndrome of left shoulder Insulin dependent type 2 diabetes mellitus Complicated by nephropathy, neuropathy, and retinopathy. Mixed hyperlipidemia Peripheral vascular disease Pneumonia Surgical History Surgical History Amputation of left great toe (2019) Secondary to osteomyelitis. History of aortic valve replacement (07/24/20) 25 mm Inspiris bioprosthetic valve per Dr. Nam Daniels at [facility]. History of carpal eugenia
[2022-06-02 04:11] LABS: Basophils Absolute Auto 0.1 K/mm3 (0.0-0.1); Eosinophils Absolute Auto 0.3 K/mm3 (0-0.3); Eosinophils Percent Auto 2.9 % (0-4.4); Hematocrit 32.6 % (42.0-52.0); Hemoglobin 10.4 g/dL (14.0-18.0); Immature Granulocyte Absolute 0.06 K/mm3 (0.00-0.031); Immature Granulocyte Percent A 0.6 % (0-0.5); Lymphocytes Absolute Auto 2.02 K/mm3 (0.9-3.2); Lymphocytes Percent Auto 19.6 % (18.3-44.2); Mean Corpuscular HGB Conc 31.9 g/dl (32-36); Mean Corpuscular Hemoglobin 30.1 pg (26-34); Mean Corpuscular Volume 94.2 fl (80-100); Monocytes Absolute Auto 0.9 K/mm3 (0.1-0.6); Monocytes Percent Auto 9.1 % (2.6-8.5); Neutrophils Absolute Auto 6.9 K/mm3 (1.3-6.7); Neutrophils Percent Auto 66.8 % (45.5-73.1); Platelet Count Result 282 k/mm3 (150-375); Red Blood Count 3.46 M/mm3 (4.6-6.20); Red Cell Distribution Width 18.9 % (11.5-14.5); White Blood Count 10.3 K/mm3 (4.5-10.0)
[2022-06-02] MEDS: FUROSEMIDE INJ 40 MG/4 ML VIAL IV PUSH (04:11)
[2022-06-02] MEDS: cloNIDine HCL 0.1 MG TABLET PO (04:11)
[2022-06-02] MEDS: hydrALAZINE HCL 20 MG/ML VIAL 10 MG IV PUSH ×2 (04:11→05:28)
[2022-06-02] MEDS: lisinopriL 20 MG TABLET PO (04:11)
[2022-06-02 04:24] LABS: Alanine Aminotransferase 16 U/L (6-50); Albumin Level 2.8 g/dL (3.5-5.1); Alkaline Phosphatase 211 U/L (38-126); Anion Gap 9 mmol/L (8-16); Aspartate Amino Transferase 30 U/L (17-59); Bilirubin,Total 1.6 mg/dL (0.2-1.3); Blood Urea Nitrogen 36 mg/dL (9-20); Calcium 8.9 mg/dL (8.4-10.2); Carbon Dioxide 28 mmol/L (22-30); Chloride 98 mmol/L (98-107); Estimated CRCL calculation 13 ml/min; Estimated Glomerular Filt Rate 9; Glucose 118 mg/dL (65-110); Potassium 3.4 mmol/L (3.4-5.0); Sodium 135 mmol/L (137-145)
[2022-06-02] MEDS: carvediloL 12.5 MG TABLET PO (04:26)
[2022-06-02] MEDS: LORazepam INJ (*CRX) 2 MG/ML VIAL 0.5 MG IV PUSH (05:28)
== END 2022-06-02 06:36 | disposition home or self-care (01) ==
PROVIDERS: Emergency Provider Emergency Medicine; PCP Family Medicine
DX: I13.2 Hypertensive heart and chronic kidney disease with heart failure and with stage 5 chronic kidney disease, or end stage renal disease (principal); E11.22 Type 2 diabetes mellitus with diabetic chronic kidney disease; I50.40 Unspecified combined systolic (congestive) and diastolic (congestive) heart failure; N18.6 End stage renal disease; D64.9 Anemia, unspecified; I69.922 Dysarthria following unspecified cerebrovascular disease; E11.51 Type 2 diabetes mellitus with diabetic peripheral angiopathy without gangrene; I73.9 Peripheral vascular disease, unspecified; E78.2 Mixed hyperlipidemia; K21.9 Gastro-esophageal reflux disease without esophagitis; Z86.16 Personal history of COVID-19; Z95.2 Presence of prosthetic heart valve; Z95.1 Presence of aortocoronary bypass graft; Z99.2 Dependence on renal dialysis; Z87.891 Personal history of nicotine dependence; Z89.412 Acquired absence of left great toe; Z79.82 Long term (current) use of aspirin
CPT/HCPCS: 36415; 71046; 80053; 85025; 96374; 96375; 96376; 99284; A9270; J0360; J1940; J2060

== ENCOUNTER 2022-06-07 10:31 | Outpatient (NON) | payer OTHER, MEDICARE, SELFPAY ==
[2022-06-07 10:57] LABS: Basophils Absolute Auto 0.1 K/mm3 (0.0-0.1); Basophils Percent Auto 0.9 % (0.2-1.2); Eosinophils Absolute Auto 0.1 K/mm3 (0-0.3); Eosinophils Percent Auto 1.5 % (0-4.4); Hematocrit 30.4 % (42.0-52.0); Hemoglobin 9.8 g/dL (14.0-18.0); Immature Granulocyte Absolute 0.05 K/mm3 (0.00-0.031); Immature Granulocyte Percent A 0.6 % (0-0.5); Lymphocytes Absolute Auto 1.73 K/mm3 (0.9-3.2); Lymphocytes Percent Auto 20.2 % (18.3-44.2); Mean Corpuscular HGB Conc 32.2 g/dl (32-36); Mean Corpuscular Hemoglobin 30.1 pg (26-34); Mean Corpuscular Volume 93.3 fl (80-100); Mean Platelet Volume 9.7 fl (7.4-10.4); Monocytes Absolute Auto 0.6 K/mm3 (0.1-0.6); Monocytes Percent Auto 6.7 % (2.6-8.5); Neutrophils Percent Auto 70.1 % (45.5-73.1); Platelet Count Result 276 k/mm3 (150-375); Red Blood Count 3.26 M/mm3 (4.6-6.20); Red Cell Distribution Width 19.2 % (11.5-14.5); White Blood Count 8.6 K/mm3 (4.5-10.0)
[2022-06-07 11:09] LABS: Alanine Aminotransferase 19 U/L (6-50); Albumin Level 2.4 g/dL (3.5-5.1); Alkaline Phosphatase 447 U/L (38-126); Anion Gap 9 mmol/L (8-16); Aspartate Amino Transferase 27 U/L (17-59); Bilirubin,Total 1.2 mg/dL (0.2-1.3); Blood Urea Nitrogen 33 mg/dL (9-20); Carbon Dioxide 27 mmol/L (22-30); Chloride 94 mmol/L (98-107); Estimated Glomerular Filt Rate 8; Glucose 112 mg/dL (65-110); Potassium 2.9 mmol/L (3.4-5.0); Sodium 130 mmol/L (137-145)
== END 2022-06-07 10:32 | disposition home or self-care (01) ==
LOC: HOME HLTH 10:35
PROVIDERS: PCP Family Medicine; Visit Provider Nurse Practitioner Family
DX: L03.90 Cellulitis, unspecified (principal); E11.621 Type 2 diabetes mellitus with foot ulcer
CPT/HCPCS: 80053; 85025

== ENCOUNTER 2022-06-13 12:55 | Outpatient (RCR) | payer OTHER, MEDICARE, SELFPAY ==
[2022-05-17 14:07] LABS: Basophils Absolute Auto 0.1 K/mm3 (0.0-0.1); Basophils Percent Auto 1.1 % (0.2-1.2); Eosinophils Absolute Auto 0.1 K/mm3 (0-0.3); Eosinophils Percent Auto 2.5 % (0-4.4); Hematocrit 29.7 % (42.0-52.0); Hemoglobin 9.5 g/dL (14.0-18.0); Immature Granulocyte Absolute 0.01 K/mm3 (0.00-0.031); Immature Granulocyte Percent A 0.2 % (0-0.5); Lymphocytes Absolute Auto 1.27 K/mm3 (0.9-3.2); Lymphocytes Percent Auto 22.3 % (18.3-44.2); Mean Corpuscular Hemoglobin 30.4 pg (26-34); Mean Corpuscular Volume 95.2 fl (80-100); Mean Platelet Volume 9.9 fl (7.4-10.4); Monocytes Absolute Auto 0.7 K/mm3 (0.1-0.6); Monocytes Percent Auto 12.3 % (2.6-8.5); Neutrophils Absolute Auto 3.5 K/mm3 (1.3-6.7); Neutrophils Percent Auto 61.6 % (45.5-73.1); Platelet Count Result 182 k/mm3 (150-375); Red Blood Count 3.12 M/mm3 (4.6-6.20); Red Cell Distribution Width 21.3 % (11.5-14.5); White Blood Count 5.7 K/mm3 (4.5-10.0)
[2022-05-17 14:18] LABS: Alanine Aminotransferase 13 U/L (6-50); Albumin Level 2.7 g/dL (3.5-5.1); Alkaline Phosphatase 358 U/L (38-126); Anion Gap 11 mmol/L (8-16); Aspartate Amino Transferase 20 U/L (17-59); Bilirubin,Total 1.3 mg/dL (0.2-1.3); Blood Urea Nitrogen 35 mg/dL (9-20); Calcium 7.7 mg/dL (8.4-10.2); Carbon Dioxide 24 mmol/L (22-30); Chloride 102 mmol/L (98-107); Estimated Glomerular Filt Rate 8; Glucose 92 mg/dL (65-110); Potassium 3.2 mmol/L (3.4-5.0); Sodium 137 mmol/L (137-145)
[2022-05-24 12:03] LABS: Basophils Absolute Auto 0.1 K/mm3 (0.0-0.1); Basophils Percent Auto 1.3 % (0.2-1.2); Eosinophils Absolute Auto 0.1 K/mm3 (0-0.3); Eosinophils Percent Auto 2.2 % (0-4.4); Hematocrit 32.2 % (42.0-52.0); Hemoglobin 10.3 g/dL (14.0-18.0); Immature Granulocyte Absolute 0.01 K/mm3 (0.00-0.031); Immature Granulocyte Percent A 0.2 % (0-0.5); Lymphocytes Percent Auto 27.9 % (18.3-44.2); Mean Corpuscular Hemoglobin 29.7 pg (26-34); Mean Corpuscular Volume 92.8 fl (80-100); Mean Platelet Volume 10.3 fl (7.4-10.4); Monocytes Absolute Auto 0.6 K/mm3 (0.1-0.6); Monocytes Percent Auto 11.9 % (2.6-8.5); Neutrophils Percent Auto 56.5 % (45.5-73.1); Platelet Count Result 253 k/mm3 (150-375); Red Blood Count 3.47 M/mm3 (4.6-6.20); Red Cell Distribution Width 19.1 % (11.5-14.5); White Blood Count 5.4 K/mm3 (4.5-10.0)
[2022-05-24 12:13] LABS: Alanine Aminotransferase 10 U/L (6-50); Alkaline Phosphatase 167 U/L (38-126); Anion Gap 11 mmol/L (8-16); Aspartate Amino Transferase 16 U/L (17-59); Bilirubin,Total 1.4 mg/dL (0.2-1.3); Blood Urea Nitrogen 33 mg/dL (9-20); Calcium 8.5 mg/dL (8.4-10.2); Carbon Dioxide 28 mmol/L (22-30); Chloride 93 mmol/L (98-107); Estimated Glomerular Filt Rate 7; Glucose 78 mg/dL (65-110); Sodium 132 mmol/L (137-145)
[2022-05-31 13:59] LABS: Alanine Aminotransferase 14 U/L (6-50); Albumin Level 2.7 g/dL (3.5-5.1); Alkaline Phosphatase 284 U/L (38-126); Anion Gap 8 mmol/L (8-16); Aspartate Amino Transferase 21 U/L (17-59); Bilirubin,Total 1.3 mg/dL (0.2-1.3); Blood Urea Nitrogen 37 mg/dL (9-20); Calcium 8.7 mg/dL (8.4-10.2); Carbon Dioxide 28 mmol/L (22-30); Chloride 97 mmol/L (98-107); Estimated Glomerular Filt Rate 8; Glucose 93 mg/dL (65-110); Potassium 3.3 mmol/L (3.4-5.0); Sodium 133 mmol/L (137-145)
[2022-05-31 18:24] LABS: Basophils Absolute Auto 0.1 K/mm3 (0.0-0.1); Basophils Percent Auto 1.3 % (0.2-1.2); Eosinophils Absolute Auto 0.2 K/mm3 (0-0.3); Eosinophils Percent Auto 3.5 % (0-4.4); Hematocrit 32.1 % (42.0-52.0); Hemoglobin 10.2 g/dL (14.0-18.0); Immature Granulocyte Absolute 0.02 K/mm3 (0.00-0.031); Immature Granulocyte Percent A 0.3 % (0-0.5); Lymphocytes Absolute Auto 1.45 K/mm3 (0.9-3.2); Lymphocytes Percent Auto 22.9 % (18.3-44.2); Mean Corpuscular HGB Conc 31.8 g/dl (32-36); Mean Corpuscular Hemoglobin 29.7 pg (26-34); Mean Corpuscular Volume 93.3 fl (80-100); Mean Platelet Volume 9.4 fl (7.4-10.4); Monocytes Absolute Auto 0.5 K/mm3 (0.1-0.6); Monocytes Percent Auto 8.2 % (2.6-8.5); Neutrophils Percent Auto 63.8 % (45.5-73.1); Platelet Count Result 280 k/mm3 (150-375); Red Blood Count 3.44 M/mm3 (4.6-6.20); Red Cell Distribution Width 19.1 % (11.5-14.5); White Blood Count 6.3 K/mm3 (4.5-10.0)
[2022-06-13 13:13] LABS: Basophils Absolute Auto 0.1 K/mm3 (0.0-0.1); Eosinophils Absolute Auto 0.1 K/mm3 (0-0.3); Eosinophils Percent Auto 1.3 % (0-4.4); Hematocrit 32.7 % (42.0-52.0); Hemoglobin 10.6 g/dL (14.0-18.0); Immature Granulocyte Absolute 0.02 K/mm3 (0.00-0.031); Immature Granulocyte Percent A 0.3 % (0-0.5); Lymphocytes Absolute Auto 1.68 K/mm3 (0.9-3.2); Lymphocytes Percent Auto 21.1 % (18.3-44.2); Mean Corpuscular HGB Conc 32.4 g/dl (32-36); Mean Corpuscular Hemoglobin 30.2 pg (26-34); Mean Corpuscular Volume 93.2 fl (80-100); Mean Platelet Volume 9.4 fl (7.4-10.4); Monocytes Absolute Auto 0.7 K/mm3 (0.1-0.6); Monocytes Percent Auto 8.4 % (2.6-8.5); Neutrophils Absolute Auto 5.4 K/mm3 (1.3-6.7); Neutrophils Percent Auto 67.9 % (45.5-73.1); Platelet Count Result 241 k/mm3 (150-375); Red Blood Count 3.51 M/mm3 (4.6-6.20); Red Cell Distribution Width 19.6 % (11.5-14.5)
[2022-06-13 13:27] LABS: Potassium 3.4 mmol/L (3.4-5.0)
[2022-06-13 13:34] LABS: Alanine Aminotransferase 17 U/L (6-50); Albumin Level 2.7 g/dL (3.5-5.1); Alkaline Phosphatase 282 U/L (38-126); Anion Gap 12 mmol/L (8-16); Aspartate Amino Transferase 19 U/L (17-59); Bilirubin,Total 1.3 mg/dL (0.2-1.3); Blood Urea Nitrogen 46 mg/dL (9-20); Calcium 8.3 mg/dL (8.4-10.2); Carbon Dioxide 24 mmol/L (22-30); Chloride 98 mmol/L (98-107); Estimated Glomerular Filt Rate 6; Glucose 82 mg/dL (65-110); Sodium 134 mmol/L (137-145)
== END 2022-08-15 23:59 | disposition home or self-care (01) ==
LOC: ANHLAB 12:55
PROVIDERS: PCP Family Medicine; Visit Provider Nurse Practitioner Family
DX: E11.621 Type 2 diabetes mellitus with foot ulcer (principal); L03.90 Cellulitis, unspecified; U07.1 COVID-19
CPT/HCPCS: 36415; 80053; 85025

== ENCOUNTER 2022-08-26 06:44 | Emergency (ER) | payer OTHER, MEDICARE, SELFPAY ==
[2022-08-26 06:49] VITALS: BP 173/102; PULSE 91; RESP 18; TEMP 37.1; O2SAT 100
--- NOTE | 2022-08-26 06:54 | PC.NURSE ---
patient complaint of pinching pain near dialysis cath in left abdomen. patient states it has been ongoing to a couple days no other symptoms. concern for dislodged cath
--- NOTE | 2022-08-26 07:19 | ED.GENADULT ---
HPI - General Adult General Chief complaint: Abdominal Pain Stated complaint: abd pain Time Seen by Provider: 08/26/22 07:02 History of Present Illness HPI narrative: This is a 57-year-old male with end-stage renal disease on peritoneal dialysis. He is coming in for left-sided abdominal pain. Says it has been going on for 2 days, started after he fell into a table and hit his stomach, is in the left upper quadrant, describes a sharp, nonradiating, 5/10 pain that comes and goes. He has never experienced pain like this before. It is worse with movement there are no exacerbating factors. He denies fever, chills, nausea vomiting, urinary symptoms. Patient completed his course of peritoneal dialysis last night. patient notes that his dialysis diastole is clear with no murkiness/cloudiness. Patient has had a peritoneal infection before and says this does not feel like that. Related Data Home Medications Medication Instructions Recorded Confirmed bumetanide 2 mg tablet 2 mg PO BID 10/20/21 07/22/22 calcitriol 0.5 mcg capsule 0.5 mcg PO DAILY 10/20/21 07/22/22 famotidine 40 mg tablet 20 mg PO BID 10/20/21 07/22/22 gabapentin 300 mg capsule 900 mg PO BID 10/20/21 07/22/22 venlafaxine 100 mg tablet 100 mg PO BID 10/20/21 07/22/22 calcium acetate(phosphat bind) 667 1,334 mg PO PRN PRN snacks 04/30/22 07/22/22 mg capsule calcium acetate(phosphat bind) 667 2 cap PO TIDWMEAL 04/30/22 07/22/22 mg capsule amoxicillin 875 mg-potassium 1 tablet PO Q12H 07/22/22 07/22/22 clavulanate 125 mg tablet carvedilol 12.5 mg tablet (Coreg) 25 mg PO Q12HR 07/22/22 07/22/22 sulfamethoxazole 400 1 tablet PO BID 07/22/22 07/22/22 mg-trimethoprim 80 mg tablet (Bactrim) Allergies Allergy/AdvReac Type Severity Reaction Status Date / Time No Known Allergies Allergy Verified 07/22/22 12:03 Review of Systems Review of Systems: CONSTITUTIONAL: Denies night sweats. EYES: No eye pain ENT: Denies rhinorrhea CARDIOVASCULAR: Denies palpitations RESPIRATORY: Denies hemoptysis GASTROINTESTINAL: Denies hematemesis GENITOURINARY: Denies hematuria. SKIN: Denies rash MUSCULOSKELETAL: Denies myalgia. NEUROLOGIC: Denies weakness. PSYCHIATRIC: Denies delusions [facility] Past Medical History Medical History Arthritis Bicuspid aortic valve Severe aortic stenosis status post bioprosthetic aortic valve replacement. Cerebrovascular accident (09/21/20) Thought to be embolic in nature, on long-term anticoagulation. Residual dysarthria. 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 Required temporary dialysis for a few months in spring 2019. Combined systolic and diastolic congestive heart failure Echocardiogram dated 11/03/2020 showed mildly enlarged left ventricular chamber with normal left ventricular systolic function and ejection fraction of 55 to 60% (as low as 35% on previous echos), moderate increased LV wall thickness, grade 3 diastolic dysfunction, and mild mitral and tricuspid valve regurgitation. Diabetic foot ulcer Dialysis patient End-stage renal disease on peritoneal dialysis Essential hypertension Finger fracture Former smoker 50 pack year smoking history, quit in 1987. Gastroesophageal reflux disease Hiatal hernia History of hemodialysis History of acute kidney injury on chronic kidney disease requiring hemodialysis in 2019. He has had a right IJ temporary dialysis catheter placed in 01/2020 and then a tunneled dialysis catheter in 02/2020, which was removed in 05/2020. History of osteomyelitis Impingement syndrome of left shoulder Insulin dependent type 2 diabetes mellitus Complicated by nephropathy, neuropathy, and retinopathy. Mixed hyperlipidemia Peripheral vascular disease Pneumonia Surgical History Surgical History (Reviewed 08/26/22
[2022-08-26 07:46] LABS: Glucose Point of Care 97 mg/dl (65-105)
[2022-08-26] MEDS: ACETAMINOPHEN 500 MG TABLET 1000 MG PO (07:47)
[2022-08-26 07:56] LABS: Basophils Absolute Auto 0.1 K/mm3 (0.0-0.1); Basophils Percent Auto 1.2 % (0.2-1.2); Eosinophils Absolute Auto 0.1 K/mm3 (0-0.3); Eosinophils Percent Auto 1.8 % (0-4.4); Hematocrit 32.1 % (42.0-52.0); Hemoglobin 10.7 g/dL (14.0-18.0); Immature Granulocyte Absolute 0.03 K/mm3 (0.00-0.031); Immature Granulocyte Percent A 0.5 % (0-0.5); Lymphocytes Absolute Auto 1.92 K/mm3 (0.9-3.2); Lymphocytes Percent Auto 29.5 % (18.3-44.2); Mean Corpuscular HGB Conc 33.3 g/dl (32-36); Mean Corpuscular Hemoglobin 31.6 pg (26-34); Mean Corpuscular Volume 94.7 fl (80-100); Mean Platelet Volume 9.3 fl (7.4-10.4); Monocytes Absolute Auto 0.9 K/mm3 (0.1-0.6); Monocytes Percent Auto 13.4 % (2.6-8.5); Neutrophils Absolute Auto 3.5 K/mm3 (1.3-6.7); Neutrophils Percent Auto 53.6 % (45.5-73.1); Platelet Count Result 174 k/mm3 (150-375); Red Blood Count 3.39 M/mm3 (4.6-6.20); Red Cell Distribution Width 15.3 % (11.5-14.5); White Blood Count 6.5 K/mm3 (4.5-10.0)
[2022-08-26 08:09] LABS: Anion Gap 13 mmol/L (8-16); Blood Urea Nitrogen 36 mg/dL (9-20); Carbon Dioxide 23 mmol/L (22-30); Chloride 98 mmol/L (98-107); Estimated CRCL calculation 9 ml/min; Potassium 3.8 mmol/L (3.4-5.0); Sodium 134 mmol/L (137-145)
[2022-08-26 08:10] LABS: Alanine Aminotransferase 26 U/L (6-50); Albumin Level 3.4 g/dL (3.5-5.1); Alkaline Phosphatase 238 U/L (38-126); Aspartate Amino Transferase 19 U/L (17-59); Bilirubin,Total 0.4 mg/dL (0.2-1.3); Calcium 8.7 mg/dL (8.4-10.2); Estimated Glomerular Filt Rate 6; Glucose 96 mg/dL (65-110); Lipase 481 U/L (23-300); Magnesium 1.9 mg/dL (1.6-2.3)
[2022-08-26 09:11] VITALS: BP 140/100; PULSE 74; RESP 12; O2SAT 100
== END 2022-08-26 09:11 | disposition home or self-care (01) ==
PROVIDERS: Emergency Provider Emergency Medicine; PCP Family Medicine
DX: R10.12 Left upper quadrant pain (principal); E11.22 Type 2 diabetes mellitus with diabetic chronic kidney disease; N18.6 End stage renal disease; I13.2 Hypertensive heart and chronic kidney disease with heart failure and with stage 5 chronic kidney disease, or end stage renal disease; I50.40 Unspecified combined systolic (congestive) and diastolic (congestive) heart failure; Z99.2 Dependence on renal dialysis; E11.51 Type 2 diabetes mellitus with diabetic peripheral angiopathy without gangrene; I73.9 Peripheral vascular disease, unspecified; D64.9 Anemia, unspecified; K21.9 Gastro-esophageal reflux disease without esophagitis; Z89.412 Acquired absence of left great toe; Z95.2 Presence of prosthetic heart valve; Z95.1 Presence of aortocoronary bypass graft; Z87.891 Personal history of nicotine dependence; Z87.01 Personal history of pneumonia (recurrent); Z79.82 Long term (current) use of aspirin
CPT/HCPCS: 36415; 80053; 82948; 83690; 83735; 85025; 99283; A9270

== ENCOUNTER 2022-09-02 11:11 | Outpatient (CLI) | payer OTHER, MEDICARE, SELFPAY ==
[2022-09-02 11:52] LABS: Basophils Absolute Auto 0.1 K/mm3 (0.0-0.1); Basophils Percent Auto 0.8 % (0.2-1.2); Eosinophils Absolute Auto 0.2 K/mm3 (0-0.3); Eosinophils Percent Auto 1.8 % (0-4.4); Hematocrit 35.2 % (42.0-52.0); Hemoglobin 11.5 g/dL (14.0-18.0); Immature Granulocyte Absolute 0.02 K/mm3 (0.00-0.031); Immature Granulocyte Percent A 0.2 % (0-0.5); Lymphocytes Absolute Auto 1.97 K/mm3 (0.9-3.2); Lymphocytes Percent Auto 23.6 % (18.3-44.2); Mean Corpuscular HGB Conc 32.7 g/dl (32-36); Mean Corpuscular Hemoglobin 30.7 pg (26-34); Mean Corpuscular Volume 94.1 fl (80-100); Mean Platelet Volume 9.2 fl (7.4-10.4); Monocytes Absolute Auto 0.8 K/mm3 (0.1-0.6); Monocytes Percent Auto 9.6 % (2.6-8.5); Neutrophils Absolute Auto 5.3 K/mm3 (1.3-6.7); Platelet Count Result 209 k/mm3 (150-375); Red Blood Count 3.74 M/mm3 (4.6-6.20); Red Cell Distribution Width 14.7 % (11.5-14.5); White Blood Count 8.3 K/mm3 (4.5-10.0)
[2022-09-02 12:09] LABS: Alanine Aminotransferase 32 U/L (6-50); Albumin Level 3.7 g/dL (3.5-5.1); Alkaline Phosphatase 249 U/L (38-126); Anion Gap 14 mmol/L (8-16); Aspartate Amino Transferase 28 U/L (17-59); Bilirubin,Total 0.4 mg/dL (0.2-1.3); Blood Urea Nitrogen 42 mg/dL (9-20); Calcium 9.3 mg/dL (8.4-10.2); Carbon Dioxide 27 mmol/L (22-30); Chloride 93 mmol/L (98-107); Estimated Glomerular Filt Rate 6; Glucose 94 mg/dL (65-110); Lipase 904 U/L (23-300); Potassium 3.9 mmol/L (3.4-5.0); Sodium 134 mmol/L (137-145)
[2022-09-02 12:11] LABS: Hemoglobin A1C 5.2 % (<5.7)
[2022-09-02 14:01] LABS: Amylase < 30 U/L (30-110)
== END 2022-09-02 11:12 | disposition home or self-care (01) ==
PROVIDERS: PCP Family Medicine; Visit Provider Physician Assistant
DX: N18.6 End stage renal disease (principal); D64.9 Anemia, unspecified; E11.9 Type 2 diabetes mellitus without complications; R10.9 Unspecified abdominal pain
CPT/HCPCS: 36415; 80053; 82150; 83036; 83690; 85025

== ENCOUNTER → 2022-09-02 14:02 | Outpatient (CLI) | payer OTHER, MEDICARE, SELFPAY ==
--- NOTE | ~2022-09-02 | CT_ITS ---
EXAMINATION: CT abdomen pelvis wo con DATE: 09/02/2022 14:17 INDICATION: Left upper quadrant pain TECHNIQUE: Computed tomography (CT) of the abdomen and pelvis was performed without intravenous contr ast. The dose-length product (DLP) was 1087.17 mGy-cm. Automated exposure control and iterative recon struction technique were employed. COMPARISON: 03/29/2021 FINDINGS: There are healing left-sided rib fractures. The lung bases are clear. Changes of aortic quinton ve replacement are noted. There is a small to moderate volume of ascites. Dialysis catheter tubing en ters through the left anterior abdominal wall and courses into the right pelvis. There is minimal fat stranding surrounding the subcutaneous portion of the catheter tubing. An adjacent fluid collection measures 1.3 x 1.1 cm. There is a small amount of hyperattenuating material in the nondistended gallb ladder. The liver, spleen, pancreas, and adrenal glands are normal. The kidneys are unremarkable. The re is mild chronic left inguinal lymphadenopathy. There is new surrounding fat stranding. There is ca lcified atherosclerosis of the aorta and many of the other arteries. There is no free intraperitoneal gas or evidence of bowel obstruction. IMPRESSION: 1. Small amount of inflammatory change and fluid collection near the subcutaneous portion of the dial ysis catheter tubing in the left abdomen. 2. Chronic left inguinal lymphadenopathy with new surrounding inflammatory change of unclear etiology . Reviewed, dictated and finalized at location B. GER PHOTO IMPRESSION: 1. Small amount of inflammatory change and fluid collection near the subcutaneo us portion of the dialysis catheter tubing in the left abdomen. 2. Chronic left inguinal lymphadenopathy with new surrounding inflammatory figueroa ge of unclear etiology.
== END ==
PROVIDERS: PCP Family Medicine; Visit Provider Physician Assistant
DX: R74.8 Abnormal levels of other serum enzymes (principal); R10.9 Unspecified abdominal pain
CPT/HCPCS: 74176

== ENCOUNTER 2022-09-17 09:04 | Inpatient (IN) | payer OTHER, MEDICARE, SELFPAY ==
[2022-09-17] VITALS (19 sets, daily range): BP systolic 134–201; BP diastolic 91–149; PULSE 82–115; RESP 20–28; TEMP 36.6–38.3; O2SAT 88–99; BMI 30.4
--- NOTE | ~2022-09-17 | XR_ITS ---
MODIFIED ESOPHAGRAM HISTORY: Dysphagia. TECHNIQUE: Modified barium esophagram was performed by speech pathologist under radiologist fluorosco pic guidance. This was recorded on tape. The exam was reviewed on 09/25/2022 12:21 STONE SPREADER OPERATOR. The DAP for this procedure was 1.67 Gycm2. Fluoroscopy time is 2.2 minutes. FINDINGS: Lateral projection of the cervical spine demonstrates normal alignment. There is normal s wallowing function without evidence for penetration or aspiration.. IMPRESSION: 1: Normal swallowing function without penetration or aspiration. 2: Please refer to speech pathologist report for additional detail. Reviewed, dictated and finalized at location A. E SPREADER OPERATOR
--- NOTE | ~2022-09-17 | CT_ITS ---
EXAMINATION: CT brain wo con DATE: 09/20/2022 23:59 INDICATION: Head injury. TECHNIQUE: Computed tomography (CT) of the head was performed without intravenous contrast. The mA wa s adjusted according to patient size. Iterative reconstruction technique was employed. The dose-lengt h product was 605.33 mGy-cm. COMPARISON: Head CT 04/30/2022 FINDINGS: There is a small old infarct in right cerebellum. There are old infarcts in the frontal lob es, left parietal lobe, and right occipital lobe. There is no intracranial hemorrhage, acute infarcti on, or abnormal intracranial mass lesion. The ventricles are normal in size. There is mild mucosal th ickening in the paranasal sinuses. The orbits are normal. The mastoid air cells are normal. IMPRESSION: 1. Multiple old infarcts in the brain. Reviewed, dictated and finalized at location A. SHING OPERATOR
--- NOTE | ~2022-09-17 | XR_ITS ---
XR chest 2V DATE: 09/17/2022 09:44 INDICATION: Shortness of breath starting yesterday TECHNIQUE: AP and lateral views COMPARISON: 06/02/2022 2 view chest FINDINGS: Status post sternotomy and cardiac valve replacement. Borderline heart size. Aortic arch ca lcification. Mild pulmonary vascular congestion and mild prominence of the minor fissure suggesting possible subpl eural edema. Mild patchy central lung zone infiltrates are suggested,, suggesting possible pulmonary edema. Pneumo elida is not excluded. No pleural effusion is evident. IMPRESSION: Mild congestive changes are suggested. Cannot exclude pneumonia. Reviewed, dictated and finalized at location A. MANAGER
--- NOTE | ~2022-09-17 | MR_ITS ---
EXAMINATION: MR brain/brain stem wo con DATE: 09/23/2022 14:34 INDICATION: Aphasia. TECHNIQUE: Magnetic resonance imaging (MRI) of the brain and brainstem was performed without intraven ous contrast. COMPARISON: Brain MRI 03/07/2010, head CT 09/20/2022 FINDINGS: There is no acute infarction or abnormal intracranial mass lesion. There is a punctate old microhemorrhage in right frontoparietal region. There are old infarcts involving the frontal lobes, l eft parietal lobe, right occipital lobe, and bilateral cerebellum. There are scattered areas of nonsp ecific increased T2-weighted signal intensity in the cerebral white matter and ruma. The ventricles a re normal in size. The orbits are normal. There is mucous retention cyst in left maxillary sinus. The mastoid air cells are normal. IMPRESSION: 1. Old infarcts involving the frontal lobes, left parietal lobe, right occipital lobe, and cerebellum . 2. Moderate nonspecific cerebral white matter disease and pontine disease, which likely represents ch ronic small vessel ischemic disease. Reviewed, dictated and finalized at location A. ICAL EDUCATION MANAGER IMPRESSION: 1. Old infarcts involving the frontal lobes, left parietal lobe, right occipita l lobe, and cerebellum. 2. Moderate nonspecific cerebral white matter disease and pontine disease, whic h likely represents chronic small vessel ischemic disease.
--- NOTE | ~2022-09-17 | XR_ITS ---
EXAMINATION: XR chest 1V portable Exam Date/Time: 09/24/2022 15:00 NYLON OPERATOR HISTORY: sob Comparison: 09/22/2022. RESULT: Lines, tubes, and devices: Intact sternotomy wires. Cardiac valve replacement. Abandoned epicardial pacing wires. Lungs and pleura: Diffuse reticular opacities, similar to prior. Decreased cuffing with improved pat priyanka bilateral airspace opacities. No pneumothorax, focal consolidation, or large effusion. Cardiomediastinal silhouette: Stable. Other: No acute osseous or upper abdominal finding. IMPRESSION: Overall improving pulmonary opacities with persistent mild cuffing and reticular/interstitial opaciti es which may represent mild persistent but improving interstitial edema. Reviewed, dictated and finalized at location K. N OPERATOR IMPRESSION: Overall improving pulmonary opacities with persistent mild cuffing and reticula r/interstitial opacities which may represent mild persistent but improving inte rstitial edema.
--- NOTE | ~2022-09-17 | XR_ITS ---
EXAMINATION: XR chest 1V portable DATE: 09/20/2022 05:47 INDICATION: Pneumonia. TECHNIQUE: A single frontal view of the chest was obtained. COMPARISON: Chest 2 views 09/17/2022, CT abdomen and pelvis 09/02/2022 FINDINGS: There is a diffuse interstitial pattern in the lungs. There are airspace opacities in all r ight lung zones and in left perihilar region. No pleural effusion or pneumothorax. The heart size is normal. There are changes of heart valve replacement. Calcified mediastinal lymph nodes are consisten t with old granulomatous disease. There are old healed left rib fractures. IMPRESSION: 1. Worsened diffuse lung disease, consistent with pulmonary edema versus pneumonia. Reviewed, dictated and finalized at location A. WEB WORKER IMPRESSION: 1. Worsened diffuse lung disease, consistent with pulmonary edema versus pneumo elida.
--- NOTE | ~2022-09-17 | XR_ITS ---
EXAMINATION: XR chest 1V portable DATE: 09/22/2022 06:22 INDICATION: Shortness of breath. TECHNIQUE: A single frontal view of the chest was obtained. COMPARISON: Chest single view 09/20/2022 FINDINGS: There are patchy airspace opacities in all lung zones bilaterally. A calcified right lung n odule and calcified right hilar lymph nodes are consistent with old granulomatous disease. No pleural effusion or pneumothorax. The heart size is normal. There are changes of heart valve replacement. IMPRESSION: 1. Diffuse lung disease with interval improvement, consistent with pulmonary edema versus pneumonia. Reviewed, dictated and finalized at location A. TH UNDERWRITER IMPRESSION: 1. Diffuse lung disease with interval improvement, consistent with pulmonary ed tung versus pneumonia.
--- NOTE | 2022-09-17 09:12 | ECG_ITS ---
Measurements Intervals [place] Rate: 111 P: MT: 0 QRS: 34 QRSD: 92 T: 71 QT: 366 QTc: 499 Interpretive Statements SINUS TACHYCARDIA FREQUENT ATRIAL AND VENTRICULAR PREMATURE COMPLEXES NONSPECIFIC ST & T-WAVE ABNORMALITY- LAT/HIGH LAT LEADS BASELINE WANDER- II, III ABNORMAL ECG COMPARED TO ECG 04/30/2022 15:57:56 NO SIGNIFICANT CHANGES Electronically Signed On 09-17-2022 9:55:47 INSURANCE POLICY ISSUE CLERK by Jairo French D.O.
--- NOTE | 2022-09-17 09:24 | ED.FEVER ---
HPI - Fever General Chief Complaint: Fever <WING Raymond Last Filed: 09/17/22 14:27> Stated Complaint: URI <Syl Albert PA-C - Last Filed: 09/17/22 14:27> Time Seen by Provider: 09/17/22 09:11 <Syl Albert PA-C - Last Filed: 09/17/22 14:27> History of Present Illness HPI Narrative: 57-year-old male with a history of CKD on peritoneal dialysis, hypertension, aortic stenosis status post TAVR, CHF, CVA on AC, here for evaluation of fever, sinus congestion and productive cough over the past day and a half. Patient states his fever reached 101 degrees at home and has not attempted fever reducing medication. States he decided come in today because he developed some chest pain and difficulty breathing. Additionally notes a sore throat but is having no issues swallowing. Patient is a peritoneal dialysis patient and is on the kidney transplant list. Patient tells me he had a normal cardiac cath earlier this month. Dialysis fluid is clear. <Syl Albert PA-C - Last Filed: 09/17/22 14:27> Related Data Home Medications: Home Medications Medication Instructions Recorded Confirmed bumetanide 2 mg tablet 2 mg PO BID 10/20/21 09/02/22 calcitriol 0.5 mcg capsule 0.5 mcg PO DAILY 10/20/21 09/02/22 famotidine 40 mg tablet 20 mg PO BID 10/20/21 09/02/22 gabapentin 300 mg capsule 900 mg PO BID 10/20/21 09/02/22 venlafaxine 100 mg tablet 100 mg PO BID 10/20/21 09/02/22 calcium acetate(phosphat bind) 667 1,334 mg PO PRN PRN snacks 04/30/22 09/02/22 mg capsule calcium acetate(phosphat bind) 667 2 cap PO TIDWMEAL 04/30/22 09/02/22 mg capsule <WING Raymond Last Filed: 09/17/22 14:27> Allergies/Adverse Reactions: Allergies Allergy/AdvReac Type Severity Reaction Status Date / Time No Known Allergies Allergy Verified 09/02/22 10:24 <Syl Albert PA-C - Last Filed: 09/17/22 14:27> Review of Systems Review of Systems: Gen: Reports fevers Eyes: Denies eye pain or visual change ENT: Reports congestion and sore throat Respiratory: Reports cough and shortness of breath CV: Reports chest pain. GI: Denies abdominal pain nausea, emesis or diarrhea : denies burning, urgency, frequency or hematuria Musculoskeletal: Denies back pain or muscle pain Neuro: Denies numbness, tingling, weakness or focal weakness Skin: Denies rash Except as documented, all other systems reviewed and negative <Syl Albert PA-C - Last Filed: 09/17/22 14:27> [facility] Past Medical History Medical History: Medical History (Updated 09/17/22 @ 13:43 by Mary Gibson NP) Arthritis Bicuspid aortic valve Severe aortic stenosis status post bioprosthetic aortic valve replacement. Cerebrovascular accident (09/21/20) Thought to be embolic in nature, on long-term anticoagulation. Residual dysarthria. 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 Required temporary dialysis for a few months in spring 2019. Combined systolic and diastolic congestive heart failure Echocardiogram dated 11/03/2020 showed mildly enlarged left ventricular chamber with normal left ventricular systolic function and ejection fraction of 55 to 60% (as low as 35% on previous echos), moderate increased LV wall thickness, grade 3 diastolic dysfunction, and mild mitral and tricuspid valve regurgitation. COVID-19 Diabetes Diabetic foot ulcer Dialysis patient Encounter for central line placement End-stage renal disease on peritoneal dialysis Essential hypertension Finger fracture Former smoker 50 pack year smoking history, quit in 1987. Gastroesophageal reflux disease Hiatal hernia History of hemodialysis History of acute kidney injury on chronic kidney disease requiring hemodialysis in 2019. He has had a right IJ tempor
[2022-09-17 09:50] LABS: Lactic Acid Reflex 2.8 mmol/L (0.7-2.0)
[2022-09-17 09:51] LABS: Alanine Aminotransferase 20 U/L (6-50); Albumin Level 3.7 g/dL (3.5-5.1); Alkaline Phosphatase 153 U/L (38-126); Anion Gap 11 mmol/L (8-16); Aspartate Amino Transferase 18 U/L (17-59); Bilirubin,Total 0.6 mg/dL (0.2-1.3); Blood Urea Nitrogen 40 mg/dL (9-20); Carbon Dioxide 26 mmol/L (22-30); Chloride 100 mmol/L (98-107); Estimated CRCL calculation 8 ml/min; Estimated Glomerular Filt Rate 5; Glucose 129 mg/dL (65-110); Potassium 3.9 mmol/L (3.4-5.0); Sodium 137 mmol/L (137-145)
[2022-09-17 09:54] LABS: Basophils Absolute Auto 0.1 K/mm3 (0.0-0.1); Basophils Percent Auto 0.7 % (0.2-1.2); Eosinophils Percent Auto 0.2 % (0-4.4); Immature Granulocyte Absolute 0.05 K/mm3 (0.00-0.031); Immature Granulocyte Percent A 0.4 % (0-0.5); Lymphocytes Absolute Auto 1.13 K/mm3 (0.9-3.2); Lymphocytes Percent Auto 8.6 % (18.3-44.2); Mean Corpuscular HGB Conc 33.3 g/dl (32-36); Mean Corpuscular Hemoglobin 31.7 pg (26-34); Mean Platelet Volume 9.7 fl (7.4-10.4); Monocytes Percent Auto 7.2 % (2.6-8.5); Neutrophils Absolute Auto 10.9 K/mm3 (1.3-6.7); Neutrophils Percent Auto 82.9 % (45.5-73.1); Platelet Count Result 195 k/mm3 (150-375); Red Blood Count 3.79 M/mm3 (4.6-6.20); Red Cell Distribution Width 14.6 % (11.5-14.5); White Blood Count 13.2 K/mm3 (4.5-10.0)
--- NOTE | 2022-09-17 09:54 | PC.NURSE ---
pt 88% on room air. pt placed on 2L via nasal cannula.
[2022-09-17] MEDS: ACETAMINOPHEN 500 MG TABLET 1000 MG PO (10:00)
[2022-09-17] MEDS: SODIUM CHLORIDE 0.9% IV 500 ML IV CONT (10:01)
[2022-09-17 10:09] LABS: NT Pro B Type Natriuretic Pept > 35000 pg/mL (5-100); Troponin I 0.193 ng/mL (0.000-0.034)
[2022-09-17] MEDS: levoFLOXacin 500 MG/D5W 100 ML 500 MG/100 ML BAG 100 MG IVPB (10:25)
[2022-09-17 10:29] LABS: Influenza A QL RT-PCR Negative (Negative); Influenza B QL RT-PCR Negative (Negative); SARS-CoV-2 RNA PCR Negative
--- NOTE | 2022-09-17 11:20 | PM.CNNEP ---
Assessment and Plan Assessment and plan (1) End stage renal disease: Code(s): N18.6 - End stage renal disease Status: Chronic Assessment and Plan: Patient is on peritoneal dialysis. He is tolerating this well. He does have chronic abdominal discomfort but it is about the same as it has been. Will check fluid at initiation of dialysis this evening but I doubt if he has peritonitis. The patient is volume overloaded so we will use a green and red back tonight. (2) Combined systolic and diastolic congestive heart failure: Code(s): I50.40 - Unspecified combined systolic (congestive) and diastolic (congestive) heart failure Status: Acute Assessment and Plan: the patient has volume overload. Will try to remove fluid during the hospital stay. (3) Infective endocarditis: Code(s): I33.0 - Acute and subacute infective endocarditis Status: Acute Assessment and Plan: The patient had infective endocarditis in April. He received the full course of nafcillin. (4) Sepsis: Code(s): A41.9 - Sepsis, unspecified organism Status: Acute Assessment and Plan: the patient has a fever. He is getting cultures done and antibiotics. sources could include the heart with his prior infective endocarditis, foot with his chronic foot ulcer, other skin integrity issues, pneumonia, etc. Interestingly his urine culture was negative on the . (5) Hypertension: Code(s): I10 - Essential (primary) hypertension Status: Chronic Assessment and Plan: Blood pressure is relatively high. We will take fluid off tonight and get him back on his blood pressure meds. (6) Insulin dependent type 2 diabetes mellitus: Code(s): E11.9 - Type 2 diabetes mellitus without complications; Z79.4 - long term care phlebotomist (current) use of insulin Status: Chronic Assessment and Plan: He will be on sliding scale insulin and Accu-Cheks per hospitalist. (7) Chronic anemia: Code(s): D64.9 - Anemia, unspecified Status: Chronic Assessment and Plan: Hemoglobin is 12 so will hold off on Epogen. (8) Renal osteodystrophy: Code(s): N25.0 - Renal osteodystrophy Status: Acute Assessment and Plan: Will check a phosphorus level in the morning History of Present Illness Reason for Consult Consult date: 09/17/22 Chief Complaint Chief complaint: pneumonia,sepsis History of Present Illness Narrative: Pankaj is a very pleasant 57-year-old gentleman who has multiple medical problems including end-stage renal disease on dialysis every night with peritoneal dialysis, chronic abdominal pain which is stable, aortic stenosis status post bioprosthetic aortic valve replacement, congestive heart failure both systolic and diastolic, hyperlipidemia, hypertension, anemia, renal osteodystrophy, history of osteomyelitis, diabetes, and peripheral vascular disease. The patient came into the hospital because of a fever over the last couple of days. He then developed Sore throat, chest pain and shortness of breath. 3 days ago he felt blah. 2 days ago he developed the fever, sob, sore throat and cp. he thought it would run it's course but yesterday and today he continued to worsen. overnight he had severe coughing such that he couldn't sleep. he came to the emergency room. Chest x-ray shows possible fluid possible pneumonia or both. He is being admitted for antibiotics. Review of Systems Constitutional: Constitutional: Reports no additional constitutional complaints Eyes: Eyes: Reports no additional eye complaints ENT: Reports system reviewed and no additional complaints, except as documented Cardiovascular: Cardiovascular: Reports no additional cardiovascular complaints Respiratory: Respiratory: Reports no additional respiratory complaints Gastrointestinal: Gastrointestinal: Reports no additional gastrointestinal complaints Genitou
[2022-09-17 11:21] LABS: Magnesium 1.5 mg/dL (1.6-2.3); Phosphorus 5.9 mg/dL (2.5-4.5)
[2022-09-17 11:24] LABS: INR 1.2; Prothrombin Time 14.4 Seconds (11.1-14.7)
[2022-09-17 11:25] LABS: Partial Thromboplastin Time 33.1 SECONDS (22.3-36.8)
--- NOTE | 2022-09-17 11:38 | PM.EVENT ---
Event Note Event Note Event Note: On PD. logan it well. flows good. seen at 12:15pm
--- NOTE | 2022-09-17 12:34 | PM.IMHP ---
H&P: HPI History of Present Illness Date/Time: 09/17/22 12:34 Chief Complaint: fever Narrative: This is a 57-year-old male patient with a history of chronic kidney disease on peritoneal dialysis. He is on a kidney transplant list through [facility]. The patient stated that he had a fever the reach 101 at home and has not taken any fever reducing medication. The patient came to the emergency room with a fever, sinus congestion, and productive cough. The patient was placed on oxygen at 2 L per nasal cannula. The patient stated that he does not typically wear oxygen at home. He has a white count of 13.2. His H&H is low at 12.0 in 36.0. He has a history of anemia of chronic disease due to his chronic renal failure. His lactic acid is 2.8 a.m. magnesium is 1.5. His troponin is 0.193 and 0.205 his BNP is greater than 35,000 the patient chronically has elevated troponin but is typically lower than this. The patient is not complaining of chest pain at this time patient stated he recently had a catheterization that was reportedly clear. He complains of having some left epigastric area discomfort. He stated that he has had the left upper quadrant abdominal pain for he is 1 month. He did have a CT scan of the abdomen earlier this month. He also stated that his fluid has been clear from his peritoneal dialysis catheter. He stated that he has not missed any nightly treatment. Chest x-ray was read as mild congestive changes cannot exclude pneumonia. The patient also has a chronic diabetic foot ulcer to his right foot that is treated by the wound care clinic. The patient was given vancomycin cefepime and Levaquin in the emergency room as well as Tylenol. The patient is being admitted to inpatient status on date of service 09/17/2022. Review of Systems Review of Systems: See HPI All systems reviewed & are unremarkable except as noted in HPI and below Constitutional: Constitutional: Reports as per HPI and Reports no additional constitutional complaints Eyes: Eyes: Reports as per HPI and Reports no additional eye complaints ENT: Reports system reviewed and no additional complaints, except as documented and Reports Normal hearing present Cardiovascular: Cardiovascular: Reports no additional cardiovascular complaints Respiratory: Respiratory: Reports no additional respiratory complaints and Reports no additional respiratory complaints Gastrointestinal: Gastrointestinal: Reports as per HPI and Reports no additional gastrointestinal complaints Musculoskeletal: Musculoskeletal: Reports no additional musculoskeletal complaints Integumentary/Breasts: Skin/Breast: Reports system reviewed and no additional complaints, except as docu and Reports as per HPI Neurologic: Reports system reviewed and no additional complaints, except as documented, Reports as per HPI and Reports Normal hearing present Psychiatric: Psychiatric: Reports no additional psychiatric complaints and Reports as per HPI Endocrine: Endocrine: Reports no additional endocrine complaints Hematologic/Lymphatic: Hematologic/Lymphatic: Reports no additional hematologic/lymphatic complaints Allergic/Immunologic: Allergic/Immunologic: Reports no additional allergic/immunologic complaints [facility] Past Medical History Medical History (Updated 09/17/22 @ 13:43 by Mary Gibson NP) Arthritis Bicuspid aortic valve Severe aortic stenosis status post bioprosthetic aortic valve replacement. Cerebrovascular accident (09/21/20) Thought to be embolic in nature, on long-term anticoagulation. Residual dysarthria. 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 Required temporary dialysis for a few months in spring 2019. Combined systolic and diastolic congestive heart failure Echocardiogram dated 11/03/2020 showed mildly enlarged left ventricular
[2022-09-17 12:39] LABS: Reflex Lactic Acid Yes or No Add Lactic
[2022-09-17 13:13] LABS: Troponin I 0.205 ng/mL (0.000-0.034)
--- NOTE | 2022-09-17 13:26 | ADMGEN ---
This patient, Pankaj Bautista, was admitted to IMU Room 211-01. Patient/family oriented to hospital policies and general routines including ID bracelet, bed and alarms, visiting hours, pain management, procedures, bathroom and other care routines, personal items, smoking policy, room service/diet, and visiting hours. Information on how to activate the Rapid Response Team has been discussed. Patient/Family are encouraged to report perceived risks to care and to ask questions if they do not understand what they are told or what they should do.
[2022-09-17 13:27] LABS: Lactic Acid 1.3 mmol/L (0.7-2.0)
[2022-09-17] MEDS: IPRATROPIUM BR 0.02% INH SOLN 0.5 MG/2.5 ML VIAL INHALATION (14:47)
[2022-09-17 16:26] LABS: Glucose Point of Care 103 mg/dl (65-105)
[2022-09-17 17:05] LABS: Troponin I 0.249 ng/mL (0.000-0.034)
[2022-09-17] MEDS: MAGNESIUM SULF 2 GM/WATER 50ML 2 GM/50 ML BAG IVPB (19:11)
[2022-09-17 20:24] LABS: Glucose Point of Care 111 mg/dl (65-105)
[2022-09-17] MEDS: GABAPENTIN 300 MG CAPSULE 900 MG PO (21:46)
[2022-09-17] MEDS: FAMOTIDINE 20 MG TABLET PO (21:47)
[2022-09-17] MEDS: lisinopriL 20 MG TABLET PO (21:47)
[2022-09-17] MEDS: VENLAFAXINE HCL 25 MG TABLET PO (21:48)
[2022-09-17] MEDS: BUMETANIDE 1 MG TABLET 2 MG PO (21:48)
[2022-09-17] MEDS: VENLAFAXINE HCL 75 MG TABLET PO (21:48)
[2022-09-17] MEDS: CALCIUM ACETATE 667 MG TABLET 2668 MG PO (21:48)
[2022-09-17] MEDS: carvediloL 12.5 MG TABLET PO (21:49)
[2022-09-17] MEDS: HEPARIN SODIUM 5,000 UNITS/ML VIAL 5000 UNITS SUB-Q (21:49)
[2022-09-18] VITALS (15 sets, daily range): BP systolic 153–204; BP diastolic 84–129; PULSE 65–107; RESP 18–22; TEMP 36.9–37.8; O2SAT 90–97
[2022-09-18 05:21] LABS: Basophils Absolute Auto 0.1 K/mm3 (0.0-0.1); Basophils Percent Auto 0.6 % (0.2-1.2); Eosinophils Percent Auto 0.2 % (0-4.4); Hematocrit 28.9 % (42.0-52.0); Hemoglobin 9.4 g/dL (14.0-18.0); Immature Granulocyte Absolute 0.07 K/mm3 (0.00-0.031); Immature Granulocyte Percent A 0.6 % (0-0.5); Lymphocytes Absolute Auto 1.48 K/mm3 (0.9-3.2); Mean Corpuscular HGB Conc 32.5 g/dl (32-36); Mean Corpuscular Hemoglobin 31.2 pg (26-34); Mean Platelet Volume 10.1 fl (7.4-10.4); Monocytes Absolute Auto 1.2 K/mm3 (0.1-0.6); Monocytes Percent Auto 10.1 % (2.6-8.5); Neutrophils Absolute Auto 9.4 K/mm3 (1.3-6.7); Neutrophils Percent Auto 76.5 % (45.5-73.1); Platelet Count Result 161 k/mm3 (150-375); Red Blood Count 3.01 M/mm3 (4.6-6.20); Red Cell Distribution Width 14.6 % (11.5-14.5); White Blood Count 12.3 K/mm3 (4.5-10.0)
[2022-09-18 05:27] LABS: Lactic Acid Reflex 1.3 mmol/L (0.7-2.0)
[2022-09-18 05:31] LABS: Alanine Aminotransferase 16 U/L (6-50); Albumin Level 3.1 g/dL (3.5-5.1); Alkaline Phosphatase 105 U/L (38-126); Anion Gap 14 mmol/L (8-16); Aspartate Amino Transferase 18 U/L (17-59); Bilirubin,Total 0.7 mg/dL (0.2-1.3); Blood Urea Nitrogen 46 mg/dL (9-20); Calcium 8.8 mg/dL (8.4-10.2); Carbon Dioxide 22 mmol/L (22-30); Chloride 98 mmol/L (98-107); Estimated CRCL calculation 8 ml/min; Estimated Glomerular Filt Rate 5; Glucose 115 mg/dL (65-110); Sodium 134 mmol/L (137-145)
[2022-09-18 08:05] LABS: Glucose Point of Care 113 mg/dl (65-105)
--- NOTE | 2022-09-18 08:23 | PCHDNOTE ---
Patient consented to PD treatment. Fluid culture collected from PD site and given to primary RN. No signs of infection at PD site.
[2022-09-18] MEDS: CALCIUM ACETATE 667 MG TABLET 2668 MG PO ×3 (08:25→16:53)
[2022-09-18] MEDS: FAMOTIDINE 20 MG TABLET PO ×2 (08:25→20:31)
[2022-09-18] MEDS: VENLAFAXINE HCL 25 MG TABLET PO ×2 (08:25→20:31)
[2022-09-18] MEDS: lisinopriL 20 MG TABLET PO ×2 (08:25→20:31)
[2022-09-18] MEDS: BUMETANIDE 1 MG TABLET 2 MG PO ×2 (08:25→20:31)
[2022-09-18] MEDS: VENLAFAXINE HCL 75 MG TABLET PO ×2 (08:26→20:31)
[2022-09-18] MEDS: ASPIRIN 81 MG CHEWABLE TABLET PO (08:26)
[2022-09-18] MEDS: ATORVASTATIN 40 MG TABLET PO (08:26)
[2022-09-18] MEDS: carvediloL 12.5 MG TABLET PO (08:26)
[2022-09-18] MEDS: HEPARIN SODIUM 5,000 UNITS/ML VIAL 5000 UNITS SUB-Q ×2 (08:27→20:30)
[2022-09-18] MEDS: GABAPENTIN 300 MG CAPSULE 900 MG PO ×2 (08:27→20:31)
[2022-09-18 10:01] LABS: Appearance Peritoneal Fluid Clear (Clear); Source Peritoneal Fluid Peritoneal Fluid
[2022-09-18 10:02] LABS: Color Peritoneal Fluid Colorless (Colorless); Lymphocytes Peritoneal Fluid 27 %; Monocytes Peritoneal Fluid 66 %; Neutrophils Peritoneal Fluid 7 % (0-25); Nucleated Cells Peritoneal Flu 33 /uL (0-500); RBC Peritoneal Fluid 25 /uL (0-100000)
--- NOTE | 2022-09-18 10:19 | PM.PNNEP ---
Progress Note: A&P Assessment and Plan (1) End stage renal disease: Code(s): N18.6 - End stage renal disease Status: Chronic Assessment and Plan: Patient is on peritoneal dialysis. He is tolerating this well. He does have chronic abdominal discomfort but it is about the same as it has been. PD fluid was clear. There was some fibrin. Cell counts are okay. No sign of peritonitis. The patient is volume overloaded so we will use a green and red bag again tonight. (2) Combined systolic and diastolic congestive heart failure: Code(s): I50.40 - Unspecified combined systolic (congestive) and diastolic (congestive) heart failure Status: Acute Assessment and Plan: the patient has volume overload. Will try to remove fluid during the hospital stay. (3) Infective endocarditis: Code(s): I33.0 - Acute and subacute infective endocarditis Status: Acute Assessment and Plan: The patient had infective endocarditis in April. He received the full course of nafcillin. Blood cultures negative so far. (4) Sepsis: Code(s): A41.9 - Sepsis, unspecified organism Status: Acute Assessment and Plan: the patient has a fever. He is getting cultures done and antibiotics. sources could include the heart with his prior infective endocarditis, foot with his chronic foot ulcer, other skin integrity issues, pneumonia, etc. Blood cultures are negative. PD fluid is clear. Interestingly his urine culture was negative on the . He is on cefepime, Levaquin, and vancomycin. (5) Hypertension: Code(s): I10 - Essential (primary) hypertension Status: Chronic Assessment and Plan: Blood pressure is very high today. . We will take fluid off tonight and get him back on his blood pressure meds. He is on carvedilol, lisinopril. Heart rate is 100. Will increase carvedilol, and may add nifedipine if blood pressure still high tomorrow. (6) Insulin dependent type 2 diabetes mellitus: Code(s): E11.9 - Type 2 diabetes mellitus without complications; Z79.4 - penitentiary (current) use of insulin Status: Chronic Assessment and Plan: He will be on sliding scale insulin and Accu-Cheks per hospitalist. (7) Chronic anemia: Code(s): D64.9 - Anemia, unspecified Status: Chronic Assessment and Plan: Hemoglobin is down to 9.4 Will start Epogen blood pressure is better. (8) Renal osteodystrophy: Code(s): N25.0 - Renal osteodystrophy Status: Acute Assessment and Plan: Will check a phosphorus level in the morning Subjective Date/time seen: 09/18/22 10:19 Interval history: Patient is feeling poorly. He slept all day yesterday and overnight. He just feels weak and tired. He coughed all night long again. He does not have any shortness of breath or chest pain. Not eating very well. Emergencies kept dialysis from coming in to set up his machine last night so he is getting peritoneal dialysis this morning and will get another round tonight to catch up. Review of Systems Cardiovascular: Cardiovascular: Reports no additional cardiovascular complaints Respiratory: Respiratory: Reports no additional respiratory complaints Gastrointestinal: Gastrointestinal: Reports no additional gastrointestinal complaints Genitourinary: Genitourinary: Reports no additional male genitourinary complaints Exam Narrative: WDWN in NAD skin no rash head ncat lungs clear cor reg no rub abd BS+ nontender and soft ext 1+ edema. Objective Data Vital Signs Vital Signs: Vital Signs - 24 hr 09/17/22 10:28 09/17/22 10:30 09/17/22 11:01 Temperature 37.3 C 37.3 C Pulse Rate 95 93 Respiratory Rate 25 H 25 H Blood Pressure 166/91 H 159/91 H Pulse Oximetry 99 97 Oxygen Delivery Oxygen Flow Rate 09/17/22 11:40 09/17/22 12:27 09/17/22 13:55 Temperature 36.7 C Pulse Rate
[2022-09-18 12:11] LABS: Glucose Point of Care 313 mg/dl (65-105)
[2022-09-18] MEDS: INSULIN ASPART (*BKC) 100 UNITS/ML SUB-Q ×2 (12:20→17:06)
--- NOTE | 2022-09-18 14:33 | PM.IMPN ---
Progress Note: A&P Assessment and Plan (1) Pneumonia: Code(s): J18.9 - Pneumonia, unspecified organism Status: Acute Assessment and Plan: -The patient was started on the healthcare associated pneumonia antibiotic stewardship with vancomycin, Levaquin and cefepime. Wean off of antibiotics as necessary. For -continue with nebulizer treatments. -tailor antibiotics according to blood and sputum cultures. -patient has mild leukocytosis. 09/18/2022 interval history: patient end-stage renal disease on peritoneal dialysis states he had not been feeling well for few days and presented emergency department with fever suspect patient may have peritonitis, seen by cant hooker, and has ordered dialysate fluids, sputum and blood culture, chest x-ray is also concerning for healthcare associated pneumonia, patient was started on Cefepime and Vancomycin, patient states feeling much better compared to when he arrived, continue to have is scheduled peritoneal dialysis will continue to monitor and further recommendation to follow. (2) Polyneuropathy: Code(s): G62.9 - Polyneuropathy, unspecified Status: Acute Assessment and Plan: -continue with gabapentin -continue with venlafaxine (3) Ankle fracture, left: Code(s): S82.892A - Other fracture of left lower leg, initial encounter for closed fracture Status: Acute Assessment and Plan: -the patient has a boot to the left leg. He stated that it is to be kept on most times and would not remove it at this point. Patient stated that he does not want to go to surgery at this time as he is afraid that it would mess up his ability to be on the renal transplant list. He plans have surgery on it after he receives his kidney. (4) End stage renal disease: Code(s): N18.6 - End stage renal disease Status: Chronic Assessment and Plan: -the patient has peritoneal dialysis nightly. -nephrology has been consulted. -the patient is on a renal transplant list. -further recommendation per Nephrology. As per nephrology note Patient is on peritoneal dialysis.? He is tolerating this well. ? He does have chronic abdominal discomfort but it is about the same as it has been.? Will check fluid at initiation of dialysis this evening but I doubt if he has peritonitis. ? The patient is volume overloaded so we will use a green and red back tonight. CT scan on 09/02/2022 was read as the following1. Small amount of inflammatory change and fluid collection near the subcutaneous portion of the dialysis catheter tubing in the left abdomen. 2. Chronic left inguinal lymphadenopathy with new surrounding inflammatory change of unclear etiology. (5) Diabetic foot ulcer: Code(s): E11.621 - Type 2 diabetes mellitus with foot ulcer; L97.509 - Non-pressure chronic ulcer of other part of unspecified foot with unspecified severity Status: Acute Assessment and Plan: -the patient has been going to the wound care clinic and it looks like he is on silver bradley daily. -consult wound care (6) Combined systolic and diastolic congestive heart failure: Code(s): I50.40 - Unspecified combined systolic (congestive) and diastolic (congestive) heart failure Status: Acute Assessment and Plan: -continue with current treatment of Coreg and lisinopril. Last echo was on 05/02/2022? 1. Complete two-dimensional, color flow and Doppler transthoracic echocardiogram is performed. ? 2. Left ventricular chamber dimension is normal. ? 3. Left ventricular systolic function is mildly reduced, estimated at 45-50%. ? 4. There is mildly increased left ventricular wall thickness. ? 5. The left ventricular diastolic function is abnormal. ? 6. E/e' 19 is elevated. ? 7. Left atrial chamber dimension is mildly enlarged. ? 8. The bioprosthetic aortic valve is not well visualized. ? 9. There is moderate sclerosis of the bioprosthetic aortic valve leaflets. ? 10. The mitral va
--- NOTE | 2022-09-18 14:43 | PC.NURSE ---
This patient, Pankaj Bautista, was transferred to [[facility] ] on 09/18/22 at 1440. Personal belongings sent with patient. Report given to [Carlee ]. Appropriate documentation sent with patient.
--- NOTE | 2022-09-18 15:04 | PC.NURSE ---
This patient, Pankaj Bautista, was received from [[facility]] on 09/18/22 at 1435. Patient/family oriented to unit policies and routines. Report from Carlee
[2022-09-18 17:14] LABS: Glucose Point of Care 213 mg/dl (65-105)
[2022-09-18] MEDS: carvediloL 25 MG TABLET PO (20:31)
[2022-09-18 22:42] LABS: Glucose Point of Care 220 mg/dl (65-105)
[2022-09-19] VITALS (8 sets, daily range): BP systolic 124–169; BP diastolic 75–78; PULSE 63–74; RESP 18–22; TEMP 36–36.9; O2SAT 93–98
[2022-09-19 07:38] LABS: Hematocrit 26.8 % (42.0-52.0); Hemoglobin 8.6 g/dL (14.0-18.0); Mean Corpuscular HGB Conc 32.1 g/dl (32-36); Mean Corpuscular Hemoglobin 30.6 pg (26-34); Mean Corpuscular Volume 95.4 fl (80-100); Mean Platelet Volume 10.4 fl (7.4-10.4); Platelet Count Result 150 k/mm3 (150-375); Red Blood Count 2.81 M/mm3 (4.6-6.20); Red Cell Distribution Width 14.3 % (11.5-14.5); White Blood Count 10.3 K/mm3 (4.5-10.0)
[2022-09-19 07:55] LABS: Albumin Level 2.7 g/dL (3.5-5.1); Anion Gap 10 mmol/L (8-16); Blood Urea Nitrogen 45 mg/dL (9-20); Calcium 9.4 mg/dL (8.4-10.2); Carbon Dioxide 27 mmol/L (22-30); Chloride 97 mmol/L (98-107); Estimated CRCL calculation 9 ml/min; Estimated Glomerular Filt Rate 5; Glucose 107 mg/dL (65-110); Magnesium 1.8 mg/dL (1.6-2.3); Phosphorus 5.6 mg/dL (2.5-4.5); Potassium 3.6 mmol/L (3.4-5.0); Sodium 134 mmol/L (137-145)
[2022-09-19 08:21] LABS: Glucose Point of Care 116 mg/dl (65-105)
[2022-09-19] MEDS: CALCIUM ACETATE 667 MG TABLET 2668 MG PO ×3 (08:45→17:07)
[2022-09-19] MEDS: GABAPENTIN 300 MG CAPSULE 900 MG PO ×2 (08:45→20:32)
[2022-09-19] MEDS: ASPIRIN 81 MG CHEWABLE TABLET PO (08:45)
[2022-09-19] MEDS: VENLAFAXINE HCL 25 MG TABLET PO ×2 (08:45→20:31)
[2022-09-19] MEDS: VENLAFAXINE HCL 75 MG TABLET PO ×2 (08:45→20:36)
[2022-09-19] MEDS: carvediloL 25 MG TABLET PO ×2 (08:45→20:33)
[2022-09-19] MEDS: BUMETANIDE 1 MG TABLET 2 MG PO ×2 (08:46→20:35)
[2022-09-19] MEDS: ATORVASTATIN 40 MG TABLET PO (08:46)
[2022-09-19] MEDS: lisinopriL 20 MG TABLET PO ×2 (08:46→20:35)
[2022-09-19] MEDS: FAMOTIDINE 20 MG TABLET PO ×2 (08:46→20:36)
[2022-09-19] MEDS: calcitrioL 0.25 MCG CAPSULE 0.5 MCG PO (08:46)
[2022-09-19] MEDS: levoFLOXacin 250 MG/D5W 50 ML 250 MG/50 ML BAG 33.33 MG IVPB (08:47)
[2022-09-19] MEDS: HEPARIN SODIUM 5,000 UNITS/ML VIAL 5000 UNITS SUB-Q ×2 (08:48→20:32)
--- NOTE | 2022-09-19 12:48 | PM.PNNEP ---
Progress Note: A&P Assessment and Plan (1) End stage renal disease: Code(s): N18.6 - End stage renal disease Status: Chronic Assessment and Plan: Patient is on peritoneal dialysis. He is tolerating this well. He does have chronic abdominal discomfort but it is about the same as it has been. PD fluid was clear. There was some fibrin. Cell counts are okay. No sign of peritonitis. The patient continues to be mildly volume overloaded so we will use a green and red bag again tonight. (2) Combined systolic and diastolic congestive heart failure: Code(s): I50.40 - Unspecified combined systolic (congestive) and diastolic (congestive) heart failure Status: Acute Assessment and Plan: the patient has volume overload. Will try to remove fluid during the hospital stay. (3) Infective endocarditis: Code(s): I33.0 - Acute and subacute infective endocarditis Status: Acute Assessment and Plan: The patient had infective endocarditis in April. He received the full course of nafcillin. Blood cultures negative so far. (4) Sepsis: Code(s): A41.9 - Sepsis, unspecified organism Status: Acute Assessment and Plan: the patient has a fever. He is getting cultures done and antibiotics. sources could include the heart with his prior infective endocarditis, foot with his chronic foot ulcer, other skin integrity issues, pneumonia, etc. Blood cultures are negative. PD fluid is clear. Interestingly his urine culture was negative on the . He is on cefepime, Levaquin, and vancomycin. (5) Hypertension: Code(s): I10 - Essential (primary) hypertension Status: Chronic Assessment and Plan: Blood pressure is better today after fluid removal and adjusting his outpatient meds. 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 (7) Chronic anemia: Code(s): D64.9 - Anemia, unspecified Status: Chronic Assessment and Plan: Hemoglobin is down to 9.4 Will start Epogen blood pressure is better. (8) Renal osteodystrophy: Code(s): N25.0 - Renal osteodystrophy Status: Acute Assessment and Plan: Will check a phosphorus level in the morning Subjective Date/time seen: 09/19/22 12:48 Interval history: Patient feels better. He has not been out of bed though. He is on peritoneal dialysis and tolerating it well. He was seen at 8:00 a.m.. His UF was around 1700 and his initial drain was 3600. Exam Narrative: WDWN in NAD skin no rash head ncat lungs clear cor reg no rub abd BS+ nontender and soft ext 1+ edema. Objective Data Vital Signs Vital Signs: Vital Signs - 24 hr 09/18/22 15:25 09/18/22 16:00 09/18/22 16:00 Temperature 37.3 C Pulse Rate 65 Respiratory Rate 20 Blood Pressure 160/98 H Pulse Oximetry 94 95 Oxygen Delivery Nasal Cannula Nasal Cannula Oxygen Flow Rate 2 2 09/18/22 19:44 09/18/22 22:01 09/19/22 05:25 Temperature 37.2 C 36.9 C Pulse Rate 65 92 67 Respiratory Rate 20 18 22 H Blood Pressure 164/87 H 146/78 H Pulse Oximetry 95 97 98 Oxygen Delivery Nasal Cannula Oxygen Flow Rate 2 09/19/22 07:57 09/19/22 08:45 Temperature 36.9 C Pulse Rate 67 Respiratory Rate 22 H Blood Pressure 146/78 H Pulse Oximetry 98 Oxygen Delivery Nasal Cannula Oxygen Flow Rate 2 Intake/Output Intake/Output: Intake & Output 09/16/22 09/17/22 09/18/22 09/19/22 23:59 23:59 23:59 23:59 Intake Total 1640 480 990 Output Total 350 3252 Balance 1640 130 -2262 Meds/Results Medications: Active Medications Generic Name Dose Route Start Last Admin Trade Name Freq PRN Reason Stop Dose Admin Aspir
[2022-09-19] MEDS: EPOETIN ALFA-EPBX 10,000 UNITS/ML VIAL 10000 UNITS SUB-Q (13:40)
--- NOTE | 2022-09-19 16:57 | PM.IMPN ---
Progress Note: A&P Assessment and Plan (1) Pneumonia: Code(s): J18.9 - Pneumonia, unspecified organism Status: Acute Assessment and Plan: -The patient was started on the healthcare associated pneumonia antibiotic stewardship with vancomycin, Levaquin and cefepime. Wean off of antibiotics as necessary. For -continue with nebulizer treatments. -tailor antibiotics according to blood and sputum cultures. -patient has mild leukocytosis. 09/19/2022 interval history: patient end-stage renal disease on peritoneal dialysis states he had not been feeling well for few days and presented emergency department with fever suspect patient may have peritonitis, seen by assistant auto center manager, and had ordered dialysate fluids, sputum and blood culture, peritoneal fluid is clear and no sign of infection, patient remains clinically stable his symptoms are improved, will monitor and follow up on blood culture, chest x-ray is also concerning for healthcare associated pneumonia, patient was started on Cefepime and Vancomycin, patient states feeling much better compared to when he arrived, continue to have is scheduled peritoneal dialysis will continue to monitor and further recommendation to follow. (2) Polyneuropathy: Code(s): G62.9 - Polyneuropathy, unspecified Status: Acute Assessment and Plan: -continue with gabapentin -continue with venlafaxine (3) Ankle fracture, left: Code(s): S82.892A - Other fracture of left lower leg, initial encounter for closed fracture Status: Acute Assessment and Plan: -the patient has a boot to the left leg. He stated that it is to be kept on most times and would not remove it at this point. Patient stated that he does not want to go to surgery at this time as he is afraid that it would mess up his ability to be on the renal transplant list. He plans have surgery on it after he receives his kidney. (4) End stage renal disease: Code(s): N18.6 - End stage renal disease Status: Chronic Assessment and Plan: -the patient has peritoneal dialysis nightly. -nephrology has been consulted. -the patient is on a renal transplant list. -further recommendation per Nephrology. As per nephrology note Patient is on peritoneal dialysis.? He is tolerating this well. ? He does have chronic abdominal discomfort but it is about the same as it has been.? Will check fluid at initiation of dialysis this evening but I doubt if he has peritonitis. ? The patient is volume overloaded so we will use a green and red back tonight. CT scan on 09/02/2022 was read as the following1. Small amount of inflammatory change and fluid collection near the subcutaneous portion of the dialysis catheter tubing in the left abdomen. 2. Chronic left inguinal lymphadenopathy with new surrounding inflammatory change of unclear etiology. (5) Diabetic foot ulcer: Code(s): E11.621 - Type 2 diabetes mellitus with foot ulcer; L97.509 - Non-pressure chronic ulcer of other part of unspecified foot with unspecified severity Status: Acute Assessment and Plan: -the patient has been going to the wound care clinic and it looks like he is on silver bradley daily. -consult wound care (6) Combined systolic and diastolic congestive heart failure: Code(s): I50.40 - Unspecified combined systolic (congestive) and diastolic (congestive) heart failure Status: Acute Assessment and Plan: -continue with current treatment of Coreg and lisinopril. Last echo was on 05/02/2022? 1. Complete two-dimensional, color flow and Doppler transthoracic echocardiogram is performed. ? 2. Left ventricular chamber dimension is normal. ? 3. Left ventricular systolic function is mildly reduced, estimated at 45-50%. ? 4. There is mildly increased left ventricular wall thickness. ? 5. The left ventricular diastolic function is abnormal. ? 6. E/e' 19 is elevated. ? 7. Left atrial chamber dimension is mildly enlarged.
[2022-09-19 17:12] LABS: Glucose Point of Care 110 mg/dl (65-105)
[2022-09-19 19:57] LABS: Glucose Point of Care 133 mg/dl (65-105)
[2022-09-20] VITALS (9 sets, daily range): BP systolic 131–171; BP diastolic 79–91; PULSE 68–89; RESP 12–20; TEMP 35.7–36.7; O2SAT 95–100
[2022-09-20 06:10] LABS: Hematocrit 26.3 % (42.0-52.0); Hemoglobin 8.6 g/dL (14.0-18.0); Mean Corpuscular HGB Conc 32.7 g/dl (32-36); Mean Corpuscular Hemoglobin 30.3 pg (26-34); Mean Corpuscular Volume 92.6 fl (80-100); Mean Platelet Volume 10.5 fl (7.4-10.4); Platelet Count Result 155 k/mm3 (150-375); Red Blood Count 2.84 M/mm3 (4.6-6.20); White Blood Count 6.6 K/mm3 (4.5-10.0)
[2022-09-20 06:22] LABS: Albumin Level 2.7 g/dL (3.5-5.1); Anion Gap 9 mmol/L (8-16); Blood Urea Nitrogen 46 mg/dL (9-20); Calcium 9.7 mg/dL (8.4-10.2); Carbon Dioxide 26 mmol/L (22-30); Chloride 98 mmol/L (98-107); Estimated CRCL calculation 10 ml/min; Estimated Glomerular Filt Rate 6; Glucose 150 mg/dL (65-110); Magnesium 1.9 mg/dL (1.6-2.3); Phosphorus 5.3 mg/dL (2.5-4.5); Potassium 3.4 mmol/L (3.4-5.0); Sodium 133 mmol/L (137-145)
[2022-09-20 07:27] LABS: Vancomycin Random 21.9 ug/mL (10-20)
[2022-09-20] MEDS: CALCIUM ACETATE 667 MG TABLET 2668 MG PO ×3 (07:55→16:24)
[2022-09-20] MEDS: GABAPENTIN 300 MG CAPSULE 900 MG PO ×2 (07:59→21:05)
[2022-09-20] MEDS: ASPIRIN 81 MG CHEWABLE TABLET PO (07:59)
[2022-09-20] MEDS: ATORVASTATIN 40 MG TABLET PO (07:59)
[2022-09-20] MEDS: VENLAFAXINE HCL 25 MG TABLET PO ×2 (07:59→21:05)
[2022-09-20] MEDS: carvediloL 25 MG TABLET PO ×2 (07:59→21:06)
[2022-09-20] MEDS: lisinopriL 20 MG TABLET PO ×2 (07:59→21:06)
[2022-09-20] MEDS: FAMOTIDINE 20 MG TABLET PO ×2 (07:59→21:06)
[2022-09-20] MEDS: BUMETANIDE 1 MG TABLET 2 MG PO ×2 (07:59→21:06)
[2022-09-20] MEDS: VENLAFAXINE HCL 75 MG TABLET PO ×2 (07:59→21:05)
[2022-09-20] MEDS: HEPARIN SODIUM 5,000 UNITS/ML VIAL 5000 UNITS SUB-Q ×2 (08:00→21:06)
[2022-09-20 08:27] LABS: Glucose Point of Care 102 mg/dl (65-105)
--- NOTE | 2022-09-20 09:05 | PM.PNNEP ---
Progress Note: A&P Assessment and Plan (1) End stage renal disease: Code(s): N18.6 - End stage renal disease Status: Chronic Assessment and Plan: Patient is on peritoneal dialysis. He is tolerating this well. He does have chronic abdominal discomfort but it is about the same as it has been. PD fluid was clear. There was some fibrin. Cell counts are okay. No sign of peritonitis. he missed PD last night so will do longer version of PD tonight. (2) Combined systolic and diastolic congestive heart failure: Code(s): I50.40 - Unspecified combined systolic (congestive) and diastolic (congestive) heart failure Status: Acute Assessment and Plan: the patient has volume overload. Will try to remove fluid during the hospital stay. (3) Infective endocarditis: Code(s): I33.0 - Acute and subacute infective endocarditis Status: Acute Assessment and Plan: The patient had infective endocarditis in April. He received the full course of nafcillin. Blood cultures negative so far. (4) Sepsis: Code(s): A41.9 - Sepsis, unspecified organism Status: Acute Assessment and Plan: the patient has a fever. He is getting cultures done and antibiotics. sources could include the heart with his prior infective endocarditis, foot with his chronic foot ulcer, other skin integrity issues, pneumonia, etc. Blood cultures are negative. PD fluid is clear. Interestingly his urine culture was negative on the . He is on cefepime, Levaquin, and vancomycin. (5) Hypertension: Code(s): I10 - Essential (primary) hypertension Status: Chronic Assessment and Plan: Blood pressure is better today after fluid removal and adjusting his outpatient meds. (6) Insulin dependent type 2 diabetes mellitus: Code(s): E11.9 - Type 2 diabetes mellitus without complications; Z79.4 - prison (current) use of insulin Status: Chronic Assessment and Plan: He will be on sliding scale insulin and Accu-Cheks per hospitalist. (7) Chronic anemia: Code(s): D64.9 - Anemia, unspecified Status: Chronic Assessment and Plan: Hemoglobin is down to 8. he is gtting fluid off so he may have a blood loss such as GIB. will check stooll guaiac. Will start Epogen blood pressure is better. (8) Renal osteodystrophy: Code(s): N25.0 - Renal osteodystrophy Status: Acute Assessment and Plan: Will check a phosphorus level in the morning Subjective Date/time seen: 09/20/22 09:05 Interval history: 09/19 Patient feels better. He has not been out of bed though. He is on peritoneal dialysis and tolerating it well. He was seen at 8:00 a.m.. His UF was around 1700 and his initial drain was 3600. 09/20 the patient is feeling okay. His dialysis did not go well last night. Apparently 1 of the ancillary staff placed his drain bag on top of his machine not realizing it was actually supposed to be on the floor. Will do extra dialysis today Exam Narrative: WDWN in NAD skin no rash head ncat lungs clear bilateral cor reg no rub abd BS+ nontender and soft ext 1+ edema. Objective Data Vital Signs Vital Signs: Vital Signs - 24 hr 09/19/22 14:00 09/19/22 19:05 09/19/22 20:33 Temperature 36.0 C L 36.0 C L Pulse Rate 69 69 74 Respiratory Rate 20 20 Blood Pressure 124/75 124/75 Pulse Oximetry 93 Oxygen Delivery Room Air Oxygen Flow Rate 09/19/22 21:33 09/19/22 20:35 09/20/22 05:26 Temperature 36.4 C L 36.6 C Pulse Rate 63 75 Respiratory Rate 18 20 Blood Pressure 169/78 H 153/79 H Pulse Oximetry 94 93 98 Oxygen Delivery Nasal Cannula Oxygen Flow Rate 0.5 09/20/22 05:53 09/20/22 07:59 09/20/22 08:00 Temperature 36.6 C Pulse Rate 75 78 Respiratory Rate 20 Blood Pressure 153/79 H Pulse Oximetry 97 Oxygen Delivery Room Air Oxygen Flow Rate In
[2022-09-20 11:34] LABS: Glucose Point of Care 146 mg/dl (65-105)
--- NOTE | 2022-09-20 17:03 | PM.IMPN ---
Progress Note: A&P Assessment and Plan (1) Pneumonia: Code(s): J18.9 - Pneumonia, unspecified organism Status: Acute Assessment and Plan: -The patient was started on the healthcare associated pneumonia antibiotic stewardship with vancomycin, Levaquin and cefepime. Wean off of antibiotics as necessary. For -continue with nebulizer treatments. -tailor antibiotics according to blood and sputum cultures. -patient has mild leukocytosis. 09/20/2022 interval history: patient end-stage renal disease on peritoneal dialysis states he had not been feeling well for few days and presented emergency department with fever suspect patient may have peritonitis, seen by development and housing director, and had ordered dialysate fluids, sputum and blood culture, peritoneal fluid is clear and no sign of infection, patient remains clinically stable his symptoms are improved, will monitor and follow up on blood culture, chest x-ray is also concerning for healthcare associated pneumonia, patient was started on Cefepime and Vancomycin, patient states feeling much better compared to when he arrived, continue to have is scheduled peritoneal dialysis, patient has been afebrile since arrival repeat chest x-ray more concerning for pulmonary edema, discussed with ID pharmacist will monitor patient 1 more day, will continue to monitor and further recommendation to follow. (2) Polyneuropathy: Code(s): G62.9 - Polyneuropathy, unspecified Status: Acute Assessment and Plan: -continue with gabapentin -continue with venlafaxine (3) Ankle fracture, left: Code(s): S82.892A - Other fracture of left lower leg, initial encounter for closed fracture Status: Acute Assessment and Plan: -the patient has a boot to the left leg. He stated that it is to be kept on most times and would not remove it at this point. Patient stated that he does not want to go to surgery at this time as he is afraid that it would mess up his ability to be on the renal transplant list. He plans have surgery on it after he receives his kidney. (4) End stage renal disease: Code(s): N18.6 - End stage renal disease Status: Chronic Assessment and Plan: -the patient has peritoneal dialysis nightly. -nephrology has been consulted. -the patient is on a renal transplant list. -further recommendation per Nephrology. As per nephrology note Patient is on peritoneal dialysis.? He is tolerating this well. ? He does have chronic abdominal discomfort but it is about the same as it has been.? Will check fluid at initiation of dialysis this evening but I doubt if he has peritonitis. ? The patient is volume overloaded so we will use a green and red back tonight. CT scan on 09/02/2022 was read as the following1. Small amount of inflammatory change and fluid collection near the subcutaneous portion of the dialysis catheter tubing in the left abdomen. 2. Chronic left inguinal lymphadenopathy with new surrounding inflammatory change of unclear etiology. (5) Diabetic foot ulcer: Code(s): E11.621 - Type 2 diabetes mellitus with foot ulcer; L97.509 - Non-pressure chronic ulcer of other part of unspecified foot with unspecified severity Status: Acute Assessment and Plan: -the patient has been going to the wound care clinic and it looks like he is on silver bradley daily. -consult wound care (6) Combined systolic and diastolic congestive heart failure: Code(s): I50.40 - Unspecified combined systolic (congestive) and diastolic (congestive) heart failure Status: Acute Assessment and Plan: -continue with current treatment of Coreg and lisinopril. Last echo was on 05/02/2022? 1. Complete two-dimensional, color flow and Doppler transthoracic echocardiogram is performed. ? 2. Left ventricular chamber dimension is normal. ? 3. Left ventricular systolic function is mildly reduced, estimated at 45-50%. ? 4. There is mildly increased left ventricul
[2022-09-20 17:07] LABS: Glucose Point of Care 251 mg/dl (65-105)
[2022-09-20 17:12] LABS: IFOB Positive Control Positive; Immunochemical Fecal Occult Bl Negative (N)
[2022-09-20] MEDS: INSULIN ASPART (*BKC) 100 UNITS/ML SUB-Q (17:12)
[2022-09-20 22:00] LABS: Glucose Point of Care 186 mg/dl (65-105)
[2022-09-20 23:59] LABS: Glucose Point of Care 164 mg/dl (65-105)
[2022-09-21] VITALS (7 sets, daily range): BP systolic 165–189; BP diastolic 93–120; PULSE 63–97; RESP 13–20; TEMP 36.1–36.4; O2SAT 94–98
[2022-09-21 02:17] LABS: Anion Gap 9 mmol/L (8-16); Blood Urea Nitrogen 43 mg/dL (9-20); Calcium 10.4 mg/dL (8.4-10.2); Carbon Dioxide 29 mmol/L (22-30); Chloride 98 mmol/L (98-107); Estimated CRCL calculation 9 ml/min; Estimated Glomerular Filt Rate 6; Glucose 131 mg/dL (65-110); Lactic Acid Reflex 1.2 mmol/L (0.7-2.0); Potassium 3.4 mmol/L (3.4-5.0); Sodium 136 mmol/L (137-145)
--- NOTE | 2022-09-21 02:31 | P.PNCROSS_ITS ---
Event Note Event Note Event Note: An DIRECTOR ORANGE was called to patient's room after patient had a fall from sitting by the edge of the bed patient landed on his face. Objective: Patient is sitting on the floor his legs are crossed he is awake and alertx2 subjective: I fell vitals: blood pressure: 136/84 oxygen saturation 100% RA heart rate of 98 general: Patient is sitting on the floor with his legs crossed, there is blood coming out of his nose. HEENT: Atraumatic normocephalic PERRLA EOM intact no JVD no lymphadenopathies respiratory: clear to auscultation bilaterally no wheezes rhonchi or crackles cardiovascular: S1-S2 heard, no murmurs no rubs no gallops abdomen: Soft nontender nondistended no hepatosplenomegaly extremities: left lower extremity ankle deformity right lower extremity normal to inspection central nervous system: awake alert oriented x2 some confusion cranial nerves ii-xii grossly intact no focal sensorimotor deficit skin: Intact assessment and plan; 1- fall: bed rest, up with assistance, fall precautions 2. Close trauma to the face: CT of the head stat
[2022-09-21 06:35] LABS: Vancomycin Random 18.8 ug/mL (10-20)
[2022-09-21 06:36] LABS: Anion Gap 12 mmol/L (8-16); Blood Urea Nitrogen 40 mg/dL (9-20); Calcium 10.3 mg/dL (8.4-10.2); Carbon Dioxide 28 mmol/L (22-30); Chloride 97 mmol/L (98-107); Estimated CRCL calculation 9 ml/min; Estimated Glomerular Filt Rate 6; Glucose 143 mg/dL (65-110); Hematocrit 31.5 % (42.0-52.0); Hemoglobin 10.2 g/dL (14.0-18.0); Magnesium 1.9 mg/dL (1.6-2.3); Mean Corpuscular HGB Conc 32.4 g/dl (32-36); Mean Corpuscular Hemoglobin 31.1 pg (26-34); Mean Platelet Volume 10.2 fl (7.4-10.4); Phosphorus 5.4 mg/dL (2.5-4.5); Platelet Count Result 180 k/mm3 (150-375); Potassium 3.3 mmol/L (3.4-5.0); Red Blood Count 3.28 M/mm3 (4.6-6.20); Red Cell Distribution Width 14.1 % (11.5-14.5); Sodium 137 mmol/L (137-145); White Blood Count 6.2 K/mm3 (4.5-10.0)
[2022-09-21] MEDS: BUMETANIDE 1 MG TABLET 2 MG PO ×2 (08:28→20:26)
[2022-09-21] MEDS: calcitrioL 0.25 MCG CAPSULE 0.5 MCG PO (08:28)
[2022-09-21] MEDS: CALCIUM ACETATE 667 MG TABLET 2668 MG PO ×3 (08:28→16:48)
[2022-09-21] MEDS: FAMOTIDINE 20 MG TABLET PO ×2 (08:28→20:25)
[2022-09-21] MEDS: ASPIRIN 81 MG CHEWABLE TABLET PO (08:28)
[2022-09-21] MEDS: ATORVASTATIN 40 MG TABLET PO (08:28)
[2022-09-21] MEDS: carvediloL 25 MG TABLET PO ×2 (08:29→20:25)
[2022-09-21] MEDS: VENLAFAXINE HCL 25 MG TABLET PO ×2 (08:30→20:25)
[2022-09-21] MEDS: HEPARIN SODIUM 5,000 UNITS/ML VIAL 5000 UNITS SUB-Q ×2 (08:30→20:26)
[2022-09-21] MEDS: lisinopriL 20 MG TABLET PO ×2 (08:30→20:26)
[2022-09-21] MEDS: VENLAFAXINE HCL 75 MG TABLET PO ×2 (08:30→20:26)
[2022-09-21] MEDS: GABAPENTIN 300 MG CAPSULE 900 MG PO ×2 (08:31→20:25)
[2022-09-21 08:41] LABS: Glucose Point of Care 167 mg/dl (65-105)
--- NOTE | 2022-09-21 09:40 | PM.IMPN ---
Progress Note: A&P Assessment and Plan (1) Pneumonia: Code(s): J18.9 - Pneumonia, unspecified organism Status: Acute Assessment and Plan: -The patient was started on the healthcare associated pneumonia antibiotic stewardship with vancomycin, Levaquin and cefepime. Wean off of antibiotics as necessary. For -continue with nebulizer treatments. -tailor antibiotics according to blood and sputum cultures. -patient has mild leukocytosis. which is resolved now Peritoneal fluid negative for signs of infection Chest x-ray was concerning for pulmonary edema. Volume overloaded and missed peritoneal dialysis in . Plan to get /optimize volume status during the hospital stay History of infective endocarditis with MSSA in April. Finished a course of nafcillin Patient blood cultures been negative to date (2) Polyneuropathy: Code(s): G62.9 - Polyneuropathy, unspecified Status: Acute Assessment and Plan: -continue with gabapentin -continue with venlafaxine (3) Ankle fracture, left: Code(s): S82.892A - Other fracture of left lower leg, initial encounter for closed fracture Status: Acute Assessment and Plan: -the patient has a boot to the left leg. He stated that it is to be kept on most times and would not remove it at this point. Patient stated that he does not want to go to surgery at this time as he is afraid that it would mess up his ability to be on the renal transplant list. He plans have surgery on it after he receives his kidney. (4) End stage renal disease: Code(s): N18.6 - End stage renal disease Status: Chronic Assessment and Plan: -the patient has peritoneal dialysis nightly. -nephrology has been consulted. -the patient is on a renal transplant list. -further recommendation per Nephrology. ? He does have chronic abdominal discomfort but it is about the same as it has been.? Will check fluid at initiation of dialysis this evening but I doubt if he has peritonitis. CT scan on 09/02/2022 was read as the following1. Small amount of inflammatory change and fluid collection near the subcutaneous portion of the dialysis catheter tubing in the left abdomen. 2. Chronic left inguinal lymphadenopathy with new surrounding inflammatory change of unclear etiology. (5) Diabetic foot ulcer: Code(s): E11.621 - Type 2 diabetes mellitus with foot ulcer; L97.509 - Non-pressure chronic ulcer of other part of unspecified foot with unspecified severity Status: Acute Assessment and Plan: -the patient has been going to the wound care clinic and it looks like he is on silver bradley daily. -consult wound care (6) Combined systolic and diastolic congestive heart failure: Code(s): I50.40 - Unspecified combined systolic (congestive) and diastolic (congestive) heart failure Status: Acute Assessment and Plan: -continue with current treatment of Coreg and lisinopril. Last echo was on 05/02/2022? 1. Complete two-dimensional, color flow and Doppler transthoracic echocardiogram is performed. ? 2. Left ventricular chamber dimension is normal. ? 3. Left ventricular systolic function is mildly reduced, estimated at 45-50%. ? 4. There is mildly increased left ventricular wall thickness. ? 5. The left ventricular diastolic function is abnormal. ? 6. E/e' 19 is elevated. ? 7. Left atrial chamber dimension is mildly enlarged. ? 8. The bioprosthetic aortic valve is not well visualized. ? 9. There is moderate sclerosis of the bioprosthetic aortic valve leaflets. ? 10. The mitral valve has moderately calcified posterior leaflet and moderately calcified annulus. ? 11. Small mobile mitral valve vegetation measuring 1.2 cm by 0.6 cm that is attached to posterior mitral valve leaflet suggestive of endocarditis. ? 12. There is mild mitral valve regurgitation. ? 13. There is trace tricuspid valve regurgitation. ? 14. No pulmonary hypertension, estimated pulmonary arterial s
[2022-09-21] MEDS: levoFLOXacin 250 MG/D5W 50 ML 250 MG/50 ML BAG 33 MG IVPB (11:44)
[2022-09-21 11:50] LABS: Glucose Point of Care 170 mg/dl (65-105)
[2022-09-21] MEDS: EPOETIN ALFA-EPBX 10,000 UNITS/ML VIAL 10000 UNITS SUB-Q (12:56)
--- NOTE | 2022-09-21 14:54 | PM.PNNEP ---
Progress Note: A&P Assessment and Plan (1) End stage renal disease: Code(s): N18.6 - End stage renal disease Status: Chronic Assessment and Plan: Patient is on peritoneal dialysis. He is tolerating this well. When he was disconnected and reconnected the machine lost the information. His belly is soft and nontender. (2) Combined systolic and diastolic congestive heart failure: Code(s): I50.40 - Unspecified combined systolic (congestive) and diastolic (congestive) heart failure Status: Acute Assessment and Plan: the patient has volume overload. Removing fluid with peritoneal dialysis. (3) Infective endocarditis: Code(s): I33.0 - Acute and subacute infective endocarditis Status: Acute Assessment and Plan: The patient had infective endocarditis in April. He received the full course of nafcillin. Blood cultures negative so far. (4) Sepsis: Code(s): A41.9 - Sepsis, unspecified organism Status: Acute Assessment and Plan: the patient has a fever. He is getting cultures done and antibiotics. Cultures all negative so far. He is on cefepime, Levaquin, and vancomycin. (5) Hypertension: Code(s): I10 - Essential (primary) hypertension Status: Chronic Assessment and Plan: Blood pressure is Still a little bit high. He is on lisinopril 20 b.i.d. And carvedilol 25 b.i.d. Will add amlodipine. (6) Insulin dependent type 2 diabetes mellitus: Code(s): E11.9 - Type 2 diabetes mellitus without complications; Z79.4 - residential (current) use of insulin Status: Chronic Assessment and Plan: He will be on sliding scale insulin and Accu-Cheks per hospitalist. (7) Chronic anemia: Code(s): D64.9 - Anemia, unspecified Status: Chronic Assessment and Plan: Hemoglobin is 10.2 today occult blood negative. On Epogen (8) Renal osteodystrophy: Code(s): N25.0 - Renal osteodystrophy Status: Acute Assessment and Plan: phosphorus five point four. Subjective Date/time seen: 09/21/22 14:54 Interval history: 09/19 Patient feels better. He has not been out of bed though. He is on peritoneal dialysis and tolerating it well. He was seen at 8:00 a.m.. His UF was around 1700 and his initial drain was 3600. 09/20 the patient is feeling okay. His dialysis did not go well last night. Apparently 1 of the ancillary staff placed his drain bag on top of his machine not realizing it was actually supposed to be on the floor. Will do extra dialysis today 09/21 Pankaj got up last night to go to the bathroom and fell on his face. He was evaluated. CT scan showed old infarcts and no fractures. Today he feels better. He had his PD last night but when he fell he had to go down for CT scan so a nurse on duty was able to disconnect and reconnect him. Exam Narrative: WDWN in NAD skin no rash head ncat lungs clear bilateral cor reg no rub abd BS+ nontender and soft ext 1+ edema. Objective Data Vital Signs Vital Signs: Vital Signs - 24 hr 09/20/22 16:02 09/20/22 21:44 09/20/22 23:41 Temperature 96.2 F L 98.1 F 98.1 F Pulse Rate 68 71 70 Respiratory Rate 18 14 12 Blood Pressure 168/91 H 171/84 H 131/82 Pulse Oximetry 99 96 Oxygen Delivery Room Air 09/20/22 23:30 09/21/22 05:55 09/21/22 08:17 Temperature 96.9 F L 96.9 F L Pulse Rate 89 63 63 Respiratory Rate 20 13 13 Blood Pressure 131/82 165/93 H 165/93 H Pulse Oximetry 95 94 Oxygen Delivery Room Air 09/21/22 08:29 09/21/22 08:00 Temperature Pulse Rate 68 Respiratory Rate Blood Pressure Pulse Oximetry Oxygen Delivery Room Air Intake/Output Intake/Output: Intake & Output 09/18/22 09/19/22 09/20/22 09/21/22 23:59 23:59 23:59 23:59 Intake Total 480 7589 225 1127 Output Total 350 8590 -271 -1490 Balance 130 -8452 1051 2165 Meds/Results Medications: A
[2022-09-21 17:00] LABS: Glucose Point of Care 144 mg/dl (65-105)
[2022-09-21 17:18] LABS: Hepatitis B Surface Antigen Negative (Negative)
[2022-09-21 17:36] LABS: Hepatitis B Surface Anti Res Negative
[2022-09-21 21:45] LABS: Glucose Point of Care 177 mg/dl (65-105)
[2022-09-22] VITALS (7 sets, daily range): BP systolic 132–164; BP diastolic 64–121; PULSE 56–80; RESP 12–18; TEMP 35.9–36.8; O2SAT 94–100
[2022-09-22 06:31] LABS: Basophils Absolute Auto 0.1 K/mm3 (0.0-0.1); Basophils Percent Auto 0.9 % (0.2-1.2); Eosinophils Absolute Auto 0.2 K/mm3 (0-0.3); Eosinophils Percent Auto 2.9 % (0-4.4); Hemoglobin 11.7 g/dL (14.0-18.0); Immature Granulocyte Absolute 0.03 K/mm3 (0.00-0.031); Immature Granulocyte Percent A 0.4 % (0-0.5); Lymphocytes Percent Auto 21.6 % (18.3-44.2); Mean Corpuscular HGB Conc 33.4 g/dl (32-36); Mean Corpuscular Hemoglobin 30.5 pg (26-34); Mean Corpuscular Volume 91.4 fl (80-100); Mean Platelet Volume 9.8 fl (7.4-10.4); Monocytes Percent Auto 14.1 % (2.6-8.5); Neutrophils Absolute Auto 4.2 K/mm3 (1.3-6.7); Neutrophils Percent Auto 60.1 % (45.5-73.1); Platelet Count Result 217 k/mm3 (150-375); Red Blood Count 3.83 M/mm3 (4.6-6.20); Red Cell Distribution Width 14.1 % (11.5-14.5)
[2022-09-22 06:43] LABS: Alanine Aminotransferase 22 U/L (6-50); Albumin Level 3.2 g/dL (3.5-5.1); Alkaline Phosphatase 101 U/L (38-126); Anion Gap 6 mmol/L (8-16); Aspartate Amino Transferase 16 U/L (17-59); Bilirubin,Total 0.3 mg/dL (0.2-1.3); Blood Urea Nitrogen 31 mg/dL (9-20); Calcium 11.6 mg/dL (8.4-10.2); Carbon Dioxide 30 mmol/L (22-30); Chloride 99 mmol/L (98-107); Estimated CRCL calculation 9 ml/min; Estimated Glomerular Filt Rate 6; Glucose 132 mg/dL (65-110); Magnesium 1.9 mg/dL (1.6-2.3); Potassium 3.3 mmol/L (3.4-5.0); Sodium 135 mmol/L (137-145)
[2022-09-22 08:04] LABS: Glucose Point of Care 164 mg/dl (65-105)
[2022-09-22] MEDS: VENLAFAXINE HCL 25 MG TABLET PO ×2 (08:46→20:22)
[2022-09-22] MEDS: GABAPENTIN 300 MG CAPSULE 900 MG PO ×2 (08:46→20:22)
[2022-09-22] MEDS: ATORVASTATIN 40 MG TABLET PO (08:47)
[2022-09-22] MEDS: ASPIRIN 81 MG CHEWABLE TABLET PO (08:47)
[2022-09-22] MEDS: FAMOTIDINE 20 MG TABLET PO ×2 (08:47→20:22)
[2022-09-22] MEDS: BUMETANIDE 1 MG TABLET 2 MG PO ×2 (08:47→20:22)
[2022-09-22] MEDS: CALCIUM ACETATE 667 MG TABLET 2668 MG PO ×3 (08:47→16:40)
[2022-09-22] MEDS: amLODIPine BESYLATE 2.5 MG TABLET PO (08:47)
[2022-09-22] MEDS: lisinopriL 20 MG TABLET PO ×2 (08:48→20:22)
[2022-09-22] MEDS: carvediloL 25 MG TABLET PO ×2 (08:48→20:22)
[2022-09-22] MEDS: VENLAFAXINE HCL 75 MG TABLET PO ×2 (08:56→20:22)
[2022-09-22] MEDS: HEPARIN SODIUM 5,000 UNITS/ML VIAL 5000 UNITS SUB-Q ×2 (08:56→20:23)
[2022-09-22 11:39] LABS: Glucose Point of Care 119 mg/dl (65-105)
--- NOTE | 2022-09-22 15:55 | PM.IMPN ---
Progress Note: A&P Assessment and Plan (1) Pneumonia: Code(s): J18.9 - Pneumonia, unspecified organism Status: Acute Assessment and Plan: -The patient was started on the healthcare associated pneumonia antibiotic stewardship with vancomycin, Levaquin and cefepime. Wean off of antibiotics as necessary. For -continue with nebulizer treatments. -tailor antibiotics according to blood and sputum cultures. -patient has mild leukocytosis. which is resolved now Peritoneal fluid negative for signs of infection Chest x-ray was concerning for pulmonary edema. Volume overloaded and missed peritoneal dialysis in . Plan to get /optimize volume status during the hospital stay History of infective endocarditis with MSSA in April. Finished a course of nafcillin Patient blood cultures been negative to date Stopped vancomycin and cefepime. Continue on Levaquin as ordered (2) Polyneuropathy: Code(s): G62.9 - Polyneuropathy, unspecified Status: Acute Assessment and Plan: -continue with gabapentin -continue with venlafaxine (3) Ankle fracture, left: Code(s): S82.892A - Other fracture of left lower leg, initial encounter for closed fracture Status: Acute Assessment and Plan: -the patient has a boot to the left leg. He stated that it is to be kept on most times and would not remove it at this point. Patient stated that he does not want to go to surgery at this time as he is afraid that it would mess up his ability to be on the renal transplant list. He plans have surgery on it after he receives his kidney. (4) End stage renal disease: Code(s): N18.6 - End stage renal disease Status: Chronic Assessment and Plan: -the patient has peritoneal dialysis nightly. -nephrology has been consulted. -the patient is on a renal transplant list. -further recommendation per Nephrology. ? He does have chronic abdominal discomfort but it is about the same as it has been.? Will check fluid at initiation of dialysis this evening but I doubt if he has peritonitis. CT scan on 09/02/2022 was read as the following 1.. Small amount of inflammatory change and fluid collection near the subcutaneous portion of the dialysis catheter tubing in the left abdomen. 2. Chronic left inguinal lymphadenopathy with new surrounding inflammatory change of unclear etiology. (5) Diabetic foot ulcer: Code(s): E11.621 - Type 2 diabetes mellitus with foot ulcer; L97.509 - Non-pressure chronic ulcer of other part of unspecified foot with unspecified severity Status: Acute Assessment and Plan: -the patient has been going to the wound care clinic and it looks like he is on silver bradley daily. -consult wound care (6) Combined systolic and diastolic congestive heart failure: Code(s): I50.40 - Unspecified combined systolic (congestive) and diastolic (congestive) heart failure Status: Acute Assessment and Plan: -continue with current treatment of Coreg and lisinopril. Last echo was on 05/02/2022? 1. Complete two-dimensional, color flow and Doppler transthoracic echocardiogram is performed. ? 2. Left ventricular chamber dimension is normal. ? 3. Left ventricular systolic function is mildly reduced, estimated at 45-50%. ? 4. There is mildly increased left ventricular wall thickness. ? 5. The left ventricular diastolic function is abnormal. ? 6. E/e' 19 is elevated. ? 7. Left atrial chamber dimension is mildly enlarged. ? 8. The bioprosthetic aortic valve is not well visualized. ? 9. There is moderate sclerosis of the bioprosthetic aortic valve leaflets. ? 10. The mitral valve has moderately calcified posterior leaflet and moderately calcified annulus. ? 11. Small mobile mitral valve vegetation measuring 1.2 cm by 0.6 cm that is attached to posterior mitral valve leaflet suggestive of endocarditis. ? 12. There is mild mitral valve regurgitation. ? 13. There is trace tricuspid valve regurgit
--- NOTE | 2022-09-22 16:14 | PM.PNNEP ---
Progress Note: A&P Assessment and Plan (1) End stage renal disease: Code(s): N18.6 - End stage renal disease Status: Chronic Assessment and Plan: Patient is on peritoneal dialysis. He is tolerating this well. good UF last night. (2) Combined systolic and diastolic congestive heart failure: Code(s): I50.40 - Unspecified combined systolic (congestive) and diastolic (congestive) heart failure Status: Acute Assessment and Plan: the patient has volume overload. Removing fluid with peritoneal dialysis. volume status looks better (3) Infective endocarditis: Code(s): I33.0 - Acute and subacute infective endocarditis Status: Acute Assessment and Plan: The patient had infective endocarditis in April. He received the full course of nafcillin. Blood cultures negative so far. (4) Sepsis: Code(s): A41.9 - Sepsis, unspecified organism Status: Acute Assessment and Plan: the patient has a fever. He is getting cultures done and antibiotics. Cultures all negative so far. He is on cefepime, Levaquin, and vancomycin. (5) Hypertension: Code(s): I10 - Essential (primary) hypertension Status: Chronic Assessment and Plan: Blood pressure is coming down a bit. (6) Insulin dependent type 2 diabetes mellitus: Code(s): E11.9 - Type 2 diabetes mellitus without complications; Z79.4 - long term care pharmacist (current) use of insulin Status: Chronic Assessment and Plan: He will be on sliding scale insulin and Accu-Cheks per hospitalist. (7) Chronic anemia: Code(s): D64.9 - Anemia, unspecified Status: Chronic Assessment and Plan: Hemoglobin is up above 1y occult blood negative. stop Epogen (8) Renal osteodystrophy: Code(s): N25.0 - Renal osteodystrophy Status: Acute Assessment and Plan: phosphorus 5.4 Subjective Date/time seen: 09/22/22 16:14 Interval history: 09/19 Patient feels better. He has not been out of bed though. He is on peritoneal dialysis and tolerating it well. He was seen at 8:00 a.m.. His UF was around 1700 and his initial drain was 3600. 09/20 the patient is feeling okay. His dialysis did not go well last night. Apparently 1 of the ancillary staff placed his drain bag on top of his machine not realizing it was actually supposed to be on the floor. Will do extra dialysis today 09/21 Pankaj got up last night to go to the bathroom and fell on his face. He was evaluated. CT scan showed old infarcts and no fractures. Today he feels better. He had his PD last night but when he fell he had to go down for CT scan so a nurse on duty was able to disconnect and reconnect him. 09/22 pt feels okay. did well on PD and UF 3700 or so per nursing. pt has no sob or cp. fluid clear and flows good. seen at 12:30pm Exam Narrative: WDWN in NAD skin no rash or sq nodules head ncat lungs clear bilateral cor reg no rub abd BS+ nontender and soft ext 1+ edema. Objective Data Vital Signs Vital Signs: Vital Signs - 24 hr 09/21/22 20:25 09/21/22 21:57 09/21/22 20:00 Temperature 97.5 F L Pulse Rate 72 97 97 Respiratory Rate 20 20 Blood Pressure 189/120 H Pulse Oximetry 98 98 Oxygen Delivery Room Air 09/22/22 00:07 09/22/22 05:25 09/22/22 08:48 Temperature 98.2 F Pulse Rate 56 L 80 Respiratory Rate 18 Blood Pressure 153/121 H 146/64 H Pulse Oximetry 100 Oxygen Delivery 09/22/22 08:00 09/22/22 14:33 Temperature 97.0 F L Pulse Rate 77 Respiratory Rate 18 Blood Pressure 132/65 Pulse Oximetry 100 94 Oxygen Delivery Room Air Intake/Output Intake/Output: Intake & Output 09/19/22 09/20/22 09/21/22 09/22/22 23:59 23:59 23:59 23:59 Intake Total 1744 322 7047 320 Output Total 6286 -907 -645 Balance -0508 4841 2015 320 Meds/Results Medications: Active Medications Generic Name Dose Route
[2022-09-22 16:59] LABS: Glucose Point of Care 110 mg/dl (65-105)
[2022-09-22 21:24] LABS: Glucose Point of Care 136 mg/dl (65-105)
[2022-09-23] VITALS (7 sets, daily range): BP systolic 108–158; BP diastolic 70–101; PULSE 73–87; RESP 14–20; TEMP 26.6–36.3; O2SAT 90–100
[2022-09-23 07:01] LABS: Hematocrit 41.4 % (42.0-52.0); Hemoglobin 13.2 g/dL (14.0-18.0); Mean Corpuscular HGB Conc 31.9 g/dl (32-36); Mean Corpuscular Hemoglobin 30.5 pg (26-34); Mean Corpuscular Volume 95.6 fl (80-100); Mean Platelet Volume 10.1 fl (7.4-10.4); Platelet Count Result 270 k/mm3 (150-375); Red Blood Count 4.33 M/mm3 (4.6-6.20); Red Cell Distribution Width 14.3 % (11.5-14.5); White Blood Count 7.4 K/mm3 (4.5-10.0)
[2022-09-23 07:19] LABS: Albumin Level 3.6 g/dL (3.5-5.1); Anion Gap 11 mmol/L (8-16); Blood Urea Nitrogen 34 mg/dL (9-20); Calcium 12.7 mg/dL (8.4-10.2); Carbon Dioxide 31 mmol/L (22-30); Chloride 98 mmol/L (98-107); Estimated CRCL calculation 8 ml/min; Estimated Glomerular Filt Rate 6; Glucose 200 mg/dL (65-110); Magnesium 2.1 mg/dL (1.6-2.3); Phosphorus 5.1 mg/dL (2.5-4.5); Potassium 3.4 mmol/L (3.4-5.0); Sodium 140 mmol/L (137-145)
[2022-09-23] MEDS: calcitrioL 0.25 MCG CAPSULE 0.5 MCG PO (08:40)
[2022-09-23] MEDS: VENLAFAXINE HCL 25 MG TABLET PO ×2 (08:40→22:14)
[2022-09-23] MEDS: ATORVASTATIN 40 MG TABLET PO (08:41)
[2022-09-23] MEDS: carvediloL 25 MG TABLET PO ×2 (08:41→22:19)
[2022-09-23] MEDS: lisinopriL 20 MG TABLET PO ×2 (08:43→22:18)
[2022-09-23] MEDS: amLODIPine BESYLATE 2.5 MG TABLET PO (08:43)
[2022-09-23] MEDS: HEPARIN SODIUM 5,000 UNITS/ML VIAL 5000 UNITS SUB-Q ×2 (08:44→22:20)
[2022-09-23] MEDS: GABAPENTIN 300 MG CAPSULE 900 MG PO ×2 (08:44→22:13)
[2022-09-23] MEDS: BUMETANIDE 1 MG TABLET 2 MG PO ×2 (08:44→22:15)
[2022-09-23] MEDS: VENLAFAXINE HCL 75 MG TABLET PO ×2 (08:44→22:18)
[2022-09-23] MEDS: ASPIRIN 81 MG CHEWABLE TABLET PO (08:44)
[2022-09-23] MEDS: CALCIUM ACETATE 667 MG TABLET 2668 MG PO (08:44)
[2022-09-23] MEDS: FAMOTIDINE 20 MG TABLET PO ×2 (08:44→22:18)
[2022-09-23] MEDS: levoFLOXacin 250 MG/D5W 50 ML 250 MG/50 ML BAG 33.3 MG IVPB (08:45)
[2022-09-23 09:33] LABS: Glucose Point of Care 168 mg/dl (65-105)
[2022-09-23 12:26] LABS: Glucose Point of Care 153 mg/dl (65-105)
--- NOTE | 2022-09-23 13:09 | PM.PNNEP ---
Progress Note: A&P Assessment and Plan (1) End stage renal disease: Code(s): N18.6 - End stage renal disease Status: Chronic Assessment and Plan: Patient is on peritoneal dialysis. He is tolerating this well. good UF last night. I think he has reached is volume goal. Will decrease PD to 1.5%. his calcium level is high. Will stop his PhosLo. His phosphorus level is actually okay right now. If it starts to rise we can add Renvela. Because he seems to have symptoms I will give him calcitonin for 3 days. (2) Combined systolic and diastolic congestive heart failure: Code(s): I50.40 - Unspecified combined systolic (congestive) and diastolic (congestive) heart failure Status: Acute Assessment and Plan: Improved (3) Infective endocarditis: Code(s): I33.0 - Acute and subacute infective endocarditis Status: Acute Assessment and Plan: The patient had infective endocarditis in April. He received the full course of nafcillin. Blood cultures negative so far. (4) Sepsis: Code(s): A41.9 - Sepsis, unspecified organism Status: Acute Assessment and Plan: the patient has a fever. He is getting cultures done and antibiotics. Cultures all negative so far. He is on Levaquin (5) Hypertension: Code(s): I10 - Essential (primary) hypertension Status: Chronic Assessment and Plan: Blood pressure is Ranging from 120-160 (6) Insulin dependent type 2 diabetes mellitus: Code(s): E11.9 - Type 2 diabetes mellitus without complications; Z79.4 - parts counterman (current) use of insulin Status: Chronic Assessment and Plan: He will be on sliding scale insulin and Accu-Cheks per hospitalist. (7) Chronic anemia: Code(s): D64.9 - Anemia, unspecified Status: Chronic Assessment and Plan: Hemoglobin is up above 11 occult blood negative. stop Epogen (8) Renal osteodystrophy: Code(s): N25.0 - Renal osteodystrophy Status: Acute Assessment and Plan: phosphorus 5.1 Subjective Date/time seen: 09/23/22 13:09 Interval history: 09/19 Patient feels better. He has not been out of bed though. He is on peritoneal dialysis and tolerating it well. He was seen at 8:00 a.m.. His UF was around 1700 and his initial drain was 3600. 09/20 the patient is feeling okay. His dialysis did not go well last night. Apparently 1 of the ancillary staff placed his drain bag on top of his machine not realizing it was actually supposed to be on the floor. Will do extra dialysis today 09/21 Pankaj got up last night to go to the bathroom and fell on his face. He was evaluated. CT scan showed old infarcts and no fractures. Today he feels better. He had his PD last night but when he fell he had to go down for CT scan so a nurse on duty was able to disconnect and reconnect him. 09/22 pt feels okay. did well on PD and UF 3700 or so per nursing. pt has no sob or cp. fluid clear and flows good. seen at 12:30pm 09/23 in room. We discussed the case. He seems a little sleepier today. No chest pain or shortness of breath. He is on peritoneal dialysis and tolerating it well. His initial drain was 1100 and his UF was about 1700. He was seen at 1:10 p.m. Exam Narrative: WDWN in NAD skin no rash or sq nodules head ncat lungs clear bilateral cor reg no rub abd BS+ nontender and soft ext 1+ edema. Objective Data Vital Signs Vital Signs: Vital Signs - 24 hr 09/22/22 14:33 09/22/22 20:22 09/22/22 20:00 Temperature 97.0 F L Pulse Rate 77 78 Respiratory Rate 18 Blood Pressure 132/65 Pulse Oximetry 94 Oxygen Delivery Room Air 09/22/22 22:00 09/23/22 05:40 09/23/22 08:41 Temperature 96.7 F L 96.6 F L Pulse Rate 74 73 80 Respiratory Rate 12 14 Blood Pressure 164/117 H 123/71 Pulse Oximetry 94 92 Oxygen Delivery 09/23/22 08:35 Tem
--- NOTE | 2022-09-23 13:25 | P.PNIM_ITS ---
Progress Note: A&P Assessment and Plan (1) Pneumonia: Code(s): J18.9 - Pneumonia, unspecified organism Status: Acute Assessment and Plan: -The patient was started on the healthcare associated pneumonia antibiotic stewardship with vancomycin, Levaquin and cefepime. Wean off of antibiotics as necessary. For -continue with nebulizer treatments. -tailor antibiotics according to blood and sputum cultures. -patient has mild leukocytosis. which is resolved now Peritoneal fluid negative for signs of infection Chest x-ray was concerning for pulmonary edema. Volume overloaded and missed peritoneal dialysis in . Plan to get /optimize volume status during the hospital stay History of infective endocarditis with MSSA in April. Finished a course of nafcillin Patient blood cultures been negative to date Stopped vancomycin and cefepime. Continue on Levaquin as ordered (2) Polyneuropathy: Code(s): G62.9 - Polyneuropathy, unspecified Status: Acute Assessment and Plan: -continue with gabapentin -continue with venlafaxine (3) Ankle fracture, left: Code(s): S82.892A - Other fracture of left lower leg, initial encounter for closed fracture Status: Acute Assessment and Plan: -the patient has a boot to the left leg. He stated that it is to be kept on most times and would not remove it at this point. Patient stated that he does not want to go to surgery at this time as he is afraid that it would mess up his ability to be on the renal transplant list. He plans have surgery on it after he receives his kidney. (4) End stage renal disease: Code(s): N18.6 - End stage renal disease Status: Chronic Assessment and Plan: -the patient has peritoneal dialysis nightly. -nephrology has been consulted. -the patient is on a renal transplant list. -further recommendation per Nephrology. ? He does have chronic abdominal discomfort but it is about the same as it has been.? Will check fluid at initiation of dialysis this evening but I doubt if he has peritonitis. CT scan on 09/02/2022 was read as the following 1.. Small amount of inflammatory change and fluid collection near the subcutaneous portion of the dialysis catheter tubing in the left abdomen. 2. Chronic left inguinal lymphadenopathy with new surrounding inflammatory change of unclear etiology. (5) Diabetic foot ulcer: Code(s): E11.621 - Type 2 diabetes mellitus with foot ulcer; L97.509 - Non-pressure chronic ulcer of other part of unspecified foot with unspecified severity Status: Acute Assessment and Plan: -the patient has been going to the wound care clinic and it looks like he is on silver bradley daily. -consult wound care (6) Combined systolic and diastolic congestive heart failure: Code(s): I50.40 - Unspecified combined systolic (congestive) and diastolic (congestive) heart failure Status: Acute Assessment and Plan: -continue with current treatment of Coreg and lisinopril. Last echo was on 05/02/2022? 1. Complete two-dimensional, color flow and Doppler transthoracic echocardiogram is performed. ? 2. Left ventricular chamber dimension is normal. ? 3. Left ventricular systolic function is mildly reduced, estimated at 45-50%. ? 4. There is mildly increased left ventricular wall thickness. ? 5. The left ventricular diastolic function is abnormal. ? 6. E/e' 19 is elevated. ? 7. Left atrial chamber dimension is mildly enlarged. ? 8. The bioprosthetic aortic valve is not well visualized. ? 9. There is moderate sclerosis of the bioprosthetic aortic valve leaflets.
--- NOTE | 2022-09-23 15:18 | PCSTNOTE ---
Please refer to the Bedside Swallow Evaluation and Communication Evaluation in the EMR. Please note, silent aspiration cannot be ruled out at bedside.
[2022-09-23] MEDS: CALCITONIN SALMON INJ 400 UNITS/2 ML VIAL 360 UNITS SUB-Q ×2 (15:28→22:20)
[2022-09-23 16:39] LABS: Glucose Point of Care 127 mg/dl (65-105)
[2022-09-24] VITALS (7 sets, daily range): BP systolic 82–182; BP diastolic 53–95; PULSE 64–84; RESP 14–16; TEMP 36.1–36.4; O2SAT 95–100
[2022-09-24 07:32] LABS: Alanine Aminotransferase 20 U/L (6-50); Albumin Level 3.5 g/dL (3.5-5.1); Alkaline Phosphatase 101 U/L (38-126); Anion Gap 10 mmol/L (8-16); Aspartate Amino Transferase 22 U/L (17-59); Bilirubin,Total 0.3 mg/dL (0.2-1.3); Blood Urea Nitrogen 37 mg/dL (9-20); Calcium 11.6 mg/dL (8.4-10.2); Carbon Dioxide 32 mmol/L (22-30); Chloride 96 mmol/L (98-107); Estimated CRCL calculation 8 ml/min; Estimated Glomerular Filt Rate 6; Glucose 154 mg/dL (65-110); Magnesium 1.9 mg/dL (1.6-2.3); Phosphorus 5.5 mg/dL (2.5-4.5); Potassium 3.6 mmol/L (3.4-5.0); Sodium 138 mmol/L (137-145)
[2022-09-24 07:44] LABS: Hematocrit 39.3 % (42.0-52.0); Hemoglobin 12.6 g/dL (14.0-18.0); Mean Corpuscular HGB Conc 32.1 g/dl (32-36); Mean Corpuscular Hemoglobin 30.1 pg (26-34); Mean Corpuscular Volume 93.8 fl (80-100); Mean Platelet Volume 9.9 fl (7.4-10.4); Platelet Count Result 286 k/mm3 (150-375); Red Blood Count 4.19 M/mm3 (4.6-6.20); Red Cell Distribution Width 14.1 % (11.5-14.5); White Blood Count 9.9 K/mm3 (4.5-10.0)
[2022-09-24 07:55] LABS: Glucose Point of Care 139 mg/dl (65-105)
[2022-09-24] MEDS: ATORVASTATIN 40 MG TABLET PO (08:53)
[2022-09-24] MEDS: carvediloL 25 MG TABLET PO ×2 (08:53→20:23)
[2022-09-24] MEDS: HEPARIN SODIUM 5,000 UNITS/ML VIAL 5000 UNITS SUB-Q ×2 (08:53→20:30)
[2022-09-24] MEDS: GABAPENTIN 300 MG CAPSULE 900 MG PO ×2 (08:53→20:26)
[2022-09-24] MEDS: lisinopriL 20 MG TABLET PO ×2 (08:55→20:22)
[2022-09-24] MEDS: amLODIPine BESYLATE 2.5 MG TABLET PO (08:55)
[2022-09-24] MEDS: VENLAFAXINE HCL 75 MG TABLET PO ×2 (08:55→20:22)
[2022-09-24] MEDS: BUMETANIDE 1 MG TABLET 2 MG PO (08:55)
[2022-09-24] MEDS: ASPIRIN 81 MG CHEWABLE TABLET PO (08:56)
[2022-09-24] MEDS: VENLAFAXINE HCL 25 MG TABLET PO ×2 (08:56→20:23)
[2022-09-24] MEDS: FAMOTIDINE 20 MG TABLET PO ×2 (08:59→20:26)
--- NOTE | 2022-09-24 10:10 | PCOTNOTE ---
Spoke with Dr. Cohen who reports patient is WBAT on bilateral LE. MD is agreeable to RN entering a WB status in orders. Will complete OT evaluation when WB status is entered.
[2022-09-24 10:56] LABS: Glucose Point of Care 186 mg/dl (65-105)
--- NOTE | 2022-09-24 11:15 | PC.NURSE ---
OT questioned working with pt due to current orders. OT spoke with this rn and then contacted the MD about concerns.
--- NOTE | 2022-09-24 11:25 | PC.NURSE ---
This rn was instructed to change pt orders to weight bearing as tolerated for OT.
--- NOTE | 2022-09-24 12:34 | PM.PNNEP ---
Progress Note: A&P Assessment and Plan (1) End stage renal disease: Code(s): N18.6 - End stage renal disease Status: Chronic Assessment and Plan: continue nightly peritoneal dialysis treatments follow electrolytes, volume status, and clearance (2) Pneumonia: Code(s): J18.9 - Pneumonia, unspecified organism Status: Acute Assessment and Plan: suspected based on imaging to date on antibiotics follow cultures (3) Combined systolic and diastolic congestive heart failure: Code(s): I50.40 - Unspecified combined systolic (congestive) and diastolic (congestive) heart failure Status: Acute Assessment and Plan: slow improvement with fluid removal/ultrafiltration continue current therapy (4) Infective endocarditis: Code(s): I33.0 - Acute and subacute infective endocarditis Status: Acute Assessment and Plan: s/p 6 weeks of IV antibiotic therapy repeat blood cultures negative (5) Hypertension: Code(s): I10 - Essential (primary) hypertension Status: Chronic Assessment and Plan: reasonable control at this time can be quite erratic from review of home records follow trend of hemodynamics (6) Chronic anemia: Code(s): D64.9 - Anemia, unspecified Status: Chronic Assessment and Plan: due to ESRD H/H supratherapeutic at this time Epogen on hold (7) Insulin dependent type 2 diabetes mellitus: Code(s): E11.9 - Type 2 diabetes mellitus without complications; Z79.4 - tank terminal gauger (current) use of insulin Status: Chronic Assessment and Plan: follow accuchecks glycemic control Will continue to follow. Subjective Date/time seen: 09/24/22 12:34 Chart reviewed -- following this weekend; tolerated peritoneal dialysis treatment overnight without any issue or problems; seems a bit slower to respond in general than baseline (in comparison when I saw a bout a month ago in PD clinic); still with intermittent coughing and ongoing issues with dizziness with ambulation as well. Exam Narrative: General: WD/WN male in NAD Heart: normal S1 and S2; no rub Lungs: coarse breath sounds Abdomen: soft, nontender, nondistended, positive bowel sounds Extremities: no cyanosis or clubbing; trace edema Skin: warm and dry Objective Data Vital Signs Vital Signs: Vital Signs Temp Pulse Resp BP Pulse Ox O2 Del Method 09/24/22 08:45 Room Air 09/24/22 10:36 Room Air 09/24/22 08:53 75 09/24/22 05:51 97.0 F L 84 14 145/95 H 95 09/23/22 20:30 78 14 90 Room Air 09/23/22 21:45 80 F L 80 19 110/70 Room Air 09/23/22 22:00 97.3 F L 87 14 158/101 H 90 09/23/22 22:19 78 Intake/Output Intake/Output: Intake & Output 09/21/22 09/22/22 09/23/22 09/24/22 23:59 23:59 23:59 23:59 Intake Total 1370 440 440 490 Output Total -645 40 100 Balance 2015 400 340 490 Meds/Results Medications: Active Medications Generic Name Dose Route Start Last Admin Trade Name Yuliet PRN Reason Stop Dose Admin Amlodipine Besylate 2.5 mg 09/22/22 09:00 09/24/22 08:55 Amlodipine Besylate 2.5 Mg Tablet PO 2.5 mg QAM ALEX Administration Aspirin 81 mg 09/18/22 09:00 09/24/22 08:56 Aspirin 81 Mg Chewable Tablet PO 81 mg DAILY ALEX Administration Atorvastatin Calcium 40 mg 09/18/22 09:00 09/24/22 08:53 Atorvastatin 40 Mg Tablet PO 40 mg QAM ALEX Administration Bumetanide 2 mg 09/17/22 21:00 09/24/22 08:55 Bumetanide 1 Mg Tablet PO 2 mg Q12H ALEX Administration Calcitonin [place] 360 units 09/24/22 17:00 09/24/22 17:26 Calcitonin [place] Inj 400 Units/2 Ml Vial SUB-Q 09/25/22 09:01 360 units BID ALEX Administration Carvedilol 25 mg 09/18/22 21:00 09/24/22 08:53 Carvedilol 25 Mg Tablet PO 25 mg Q12HR ALEX Administration Dextrose 12.5 gm 09/17/22 14:00 Dextrose 50% 25 Gm/50 Ml
--- NOTE | 2022-09-24 12:34 | P.PNNP_ITS ---
Progress Note: A&P Assessment and Plan (1) End stage renal disease: Code(s): N18.6 - End stage renal disease Status: Chronic Assessment and Plan: * continue nightly peritoneal dialysis treatments * follow electrolytes, volume status, and clearance (2) Pneumonia: Code(s): J18.9 - Pneumonia, unspecified organism Status: Acute Assessment and Plan: * suspected based on imaging to date * on antibiotics * follow cultures (3) Combined systolic and diastolic congestive heart failure: Code(s): I50.40 - Unspecified combined systolic (congestive) and diastolic (congestive) heart failure Status: Acute Assessment and Plan: * slow improvement with fluid removal/ultrafiltration * continue current therapy (4) Infective endocarditis: Code(s): I33.0 - Acute and subacute infective endocarditis Status: Acute Assessment and Plan: * s/p 6 weeks of IV antibiotic therapy * repeat blood cultures negative (5) Hypertension: Code(s): I10 - Essential (primary) hypertension Status: Chronic Assessment and Plan: * reasonable control at this time * can be quite erratic from review of home records * follow trend of hemodynamics (6) Chronic anemia: Code(s): D64.9 - Anemia, unspecified Status: Chronic Assessment and Plan: * due to ESRD * H/H supratherapeutic at this time * Epogen on hold (7) Insulin dependent type 2 diabetes mellitus: Code(s): E11.9 - Type 2 diabetes mellitus without complications; Z79.4 - 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 Subjective Date/time seen: 09/24/22 12:34 Chart reviewed -- following this weekend; tolerated peritoneal dialysis treatment overnight without any issue or problems; seems a bit slower to respond in general than baseline (in comparison when I saw a bout a month ago in PD clinic); still with intermittent coughing and ongoing issues with dizziness with ambulation as well. Exam Narrative: General: WD/WN male in NAD Heart: normal S1 and S2; no rub Lungs: coarse breath sounds Abdomen: soft, nontender, nondistended, positive bowel sounds Extremities: no cyanosis or clubbing; trace edema Skin: warm and dry Objective Data Vital Signs Vital Signs: Vital Signs Temp Pulse Resp BP Pulse Ox O2 Del Method 09/24/22 08:45 Room Air 09/24/22 10:36 Room Air 09/24/22 08:53 75 09/24/22 05:51 97.0 F L 84 14 145/95 H 95 09/23/22 20:30 78 14 90 Room Air 09/23/22 21:45 80 F L 80 19 110/70 Room Air 09/23/22 22:00 97.3 F L 87 14 158/101 H 90 09/23/22 22:19 78 Intake/Output Intake/Output: Intake & Output 09/21/22 09/22/22 09/23/22 09/24/22 23:59 23:59 23:59 23:59 Intake Total 1370 440 440 490 Output Total -645 40 100 Balance 2015 400 340 490 Meds/Results Medications: Active Medications Generic Name Dose Route Start Last Admin Trade Name Freq PRN Reason Stop Dose Admin Amlodipine Besylate 2.5 mg 09/22/22 09:00 09/24/22 08:55
[2022-09-24] MEDS: SODIUM CHLORIDE 0.9% IV 250 ML IV CONT (14:40)
[2022-09-24 15:07] LABS: Alveolar/Arterial O2 Gradient 30.8 mmHg; Base Excess ABG 1.3 mEq/l (+/-2.0); Fractional Inspired Oxygen 21 %; HCO3 ABG 24.6 mEq/l (22.0-26.0); Oxygen Content ABG 16.7 %vol (16.0-22.0); Oxygen Saturation ABG 96.3 % (95.0-100.0); Oxyhemoglobin 94.1 % THb (90.0-100.0); PCO2 ABG 34.5 mmHg (35.0-45.0); PO2 ABG 77.6 mmHg (80.0-100.0); Total Hemoglobin 12.6 g/dL (12.0-18.0); pH ABG 7.471 (7.350-7.450)
[2022-09-24 15:08] LABS: Modified Allen's Test Pass; Site Drawn RIGHT RADIAL
[2022-09-24 15:38] LABS: Lactic Acid Reflex 1.8 mmol/L (0.7-2.0)
[2022-09-24 16:58] LABS: Glucose Point of Care 125 mg/dl (65-105)
[2022-09-24] MEDS: CALCITONIN SALMON INJ 400 UNITS/2 ML VIAL 360 UNITS SUB-Q (17:26)
[2022-09-24 22:49] LABS: Glucose Point of Care 103 mg/dl (65-105)
[2022-09-25] VITALS (11 sets, daily range): BP systolic 64–174; BP diastolic 45–101; PULSE 65–83; RESP 16–18; TEMP 36.1–36.4; O2SAT 95–100
--- NOTE | 2022-09-25 01:03 | PC.NURSE ---
09/24/22 at [facility] was notified that their peritoneal dialysis machine was alarming a message stating low drain volume. At 0030 after receiving no return call they stated that they had no one prosthodontist/owner that they would check it out the following morning.
[2022-09-25 07:59] LABS: Glucose Point of Care 112 mg/dl (65-105)
[2022-09-25 08:19] LABS: Alanine Aminotransferase 16 U/L (6-50); Alkaline Phosphatase 85 U/L (38-126); Anion Gap 9 mmol/L (8-16); Aspartate Amino Transferase 16 U/L (17-59); Basophils Absolute Auto 0.1 K/mm3 (0.0-0.1); Basophils Percent Auto 0.7 % (0.2-1.2); Bilirubin,Total 0.3 mg/dL (0.2-1.3); Blood Urea Nitrogen 45 mg/dL (9-20); Calcium 10.3 mg/dL (8.4-10.2); Carbon Dioxide 31 mmol/L (22-30); Chloride 93 mmol/L (98-107); Eosinophils Absolute Auto 0.2 K/mm3 (0-0.3); Eosinophils Percent Auto 2.4 % (0-4.4); Estimated CRCL calculation 8 ml/min; Estimated Glomerular Filt Rate 5; Glucose 111 mg/dL (65-110); Hemoglobin 11.7 g/dL (14.0-18.0); Immature Granulocyte Absolute 0.03 K/mm3 (0.00-0.031); Immature Granulocyte Percent A 0.4 % (0-0.5); Lymphocytes Absolute Auto 2.14 K/mm3 (0.9-3.2); Lymphocytes Percent Auto 28.4 % (18.3-44.2); Magnesium 1.8 mg/dL (1.6-2.3); Mean Corpuscular HGB Conc 33.4 g/dl (32-36); Mean Corpuscular Hemoglobin 30.6 pg (26-34); Mean Corpuscular Volume 91.6 fl (80-100); Monocytes Absolute Auto 0.6 K/mm3 (0.1-0.6); Monocytes Percent Auto 8.5 % (2.6-8.5); Neutrophils Absolute Auto 4.5 K/mm3 (1.3-6.7); Neutrophils Percent Auto 59.6 % (45.5-73.1); Phosphorus 5.3 mg/dL (2.5-4.5); Platelet Count Result 246 k/mm3 (150-375); Potassium 3.8 mmol/L (3.4-5.0); Red Blood Count 3.82 M/mm3 (4.6-6.20); Sodium 133 mmol/L (137-145); White Blood Count 7.5 K/mm3 (4.5-10.0)
[2022-09-25] MEDS: VENLAFAXINE HCL 25 MG TABLET PO ×2 (08:52→22:08)
[2022-09-25] MEDS: lisinopriL 20 MG TABLET PO ×2 (08:52→22:08)
[2022-09-25] MEDS: ASPIRIN 81 MG CHEWABLE TABLET PO (08:52)
[2022-09-25] MEDS: ATORVASTATIN 40 MG TABLET PO (08:52)
[2022-09-25] MEDS: VENLAFAXINE HCL 75 MG TABLET PO ×2 (08:52→22:08)
[2022-09-25] MEDS: amLODIPine BESYLATE 2.5 MG TABLET PO (08:52)
[2022-09-25] MEDS: FAMOTIDINE 20 MG TABLET PO ×2 (08:52→22:09)
[2022-09-25] MEDS: carvediloL 25 MG TABLET PO ×2 (08:53→22:09)
[2022-09-25] MEDS: GABAPENTIN 300 MG CAPSULE 900 MG PO ×2 (08:53→22:08)
[2022-09-25] MEDS: CALCITONIN SALMON INJ 400 UNITS/2 ML VIAL 360 UNITS SUB-Q (08:55)
[2022-09-25] MEDS: levoFLOXacin 250 MG/D5W 50 ML 250 MG/50 ML BAG 33.3 MG IVPB (09:17)
[2022-09-25] MEDS: HEPARIN SODIUM 5,000 UNITS/ML VIAL 5000 UNITS SUB-Q ×2 (10:06→22:09)
--- NOTE | 2022-09-25 12:10 | P.PNNP_ITS ---
Progress Note: A&P Assessment and Plan (1) End stage renal disease: Code(s): N18.6 - End stage renal disease Status: Chronic Assessment and Plan: * continue nightly peritoneal dialysis treatments * follow electrolytes, volume status, and clearance (2) Pneumonia: Code(s): J18.9 - Pneumonia, unspecified organism Status: Acute Assessment and Plan: * suspected based on imaging to date * on antibiotics * follow cultures (3) Hypercalcemia: Code(s): E83.52 - Hypercalcemia Status: Acute Assessment and Plan: * doing better at this time * off phoslo and calcitriol * s/p calcitonin * follow trend (4) Combined systolic and diastolic congestive heart failure: Code(s): I50.40 - Unspecified combined systolic (congestive) and diastolic (congestive) heart failure Status: Acute Assessment and Plan: * slow improvement with fluid removal/ultrafiltration * continue current therapy (5) Infective endocarditis: Code(s): I33.0 - Acute and subacute infective endocarditis Status: Acute Assessment and Plan: * s/p 6 weeks of IV antibiotic therapy * repeat blood cultures negative (6) Hypertension: Code(s): I10 - Essential (primary) hypertension Status: Chronic Assessment and Plan: * reasonable control at this time * perhaps previous lethargy due to relative hypotension(?) * BP can be quite erratic from review of home records * follow trend of hemodynamics (7) Chronic anemia: Code(s): D64.9 - Anemia, unspecified Status: Chronic Assessment and Plan: * due to ESRD * H/H in range at this time * Epogen on hold (8) Insulin dependent type 2 diabetes mellitus: Code(s): E11.9 - Type 2 diabetes mellitus without complications; Z79.4 - detention (current) use of insulin Status: Chronic Assessment and Plan: * follow accuchecks * glycemic control Will continue to follow. Subjective Date/time seen: 09/25/22 12:10 Feels significantly better today in comparison to yesterday; problems with PD c ycler/machine so it appears he did not receive a PD treatment overnight; issues with hypotension yesterday evening but responded with IVF bolus; BP actually on the higher side today. Exam Narrative: General: WD/WN male in NAD Heart: normal S1 and S2; no rub Lungs: coarse breath sounds Abdomen: soft, nontender, nondistended, positive bowel sounds Extremities: no cyanosis or clubbing; trace edema Skin: warm and intact Objective Data Vital Signs Vital Signs: Vital Signs Temp Pulse Resp BP Pulse Ox O2 Del Method 09/25/22 08:53 80 09/25/22 08:06 160/98 H 09/25/22 05:39 97.6 F 75 16 170/101 H 100 09/24/22 20:00 64 16 100 Room Air 09/24/22 20:00 182/94 H 09/24/22 20:23 64 09/24/22 20:17 97.6 F 66 16 182/94 H 100 Intake/Output Intake/Output: Intake & Output 09/22/22 09/23/22 09/24/22 09/25/22 23:59 23:59 23:59 23:59 Intake Total 440 440 730 830 Output Total 40 100 0 Balance 400 340 730 830 Meds/Results Medications: Active Medications Gen
--- NOTE | 2022-09-25 12:10 | PM.PNNEP ---
Progress Note: A&P Assessment and Plan (1) End stage renal disease: Code(s): N18.6 - End stage renal disease Status: Chronic Assessment and Plan: continue nightly peritoneal dialysis treatments follow electrolytes, volume status, and clearance (2) Pneumonia: Code(s): J18.9 - Pneumonia, unspecified organism Status: Acute Assessment and Plan: suspected based on imaging to date on antibiotics follow cultures (3) Hypercalcemia: Code(s): E83.52 - Hypercalcemia Status: Acute Assessment and Plan: doing better at this time off phoslo and calcitriol s/p calcitonin follow trend (4) Combined systolic and diastolic congestive heart failure: Code(s): I50.40 - Unspecified combined systolic (congestive) and diastolic (congestive) heart failure Status: Acute Assessment and Plan: slow improvement with fluid removal/ultrafiltration continue current therapy (5) Infective endocarditis: Code(s): I33.0 - Acute and subacute infective endocarditis Status: Acute Assessment and Plan: s/p 6 weeks of IV antibiotic therapy repeat blood cultures negative (6) Hypertension: Code(s): I10 - Essential (primary) hypertension Status: Chronic Assessment and Plan: reasonable control at this time perhaps previous lethargy due to relative hypotension(?) BP can be quite erratic from review of home records follow trend of hemodynamics (7) Chronic anemia: Code(s): D64.9 - Anemia, unspecified Status: Chronic Assessment and Plan: due to ESRD H/H in range at this time Epogen on hold (8) Insulin dependent type 2 diabetes mellitus: Code(s): E11.9 - Type 2 diabetes mellitus without complications; Z79.4 - detention (current) use of insulin Status: Chronic Assessment and Plan: follow accuchecks glycemic control Will continue to follow. Subjective Date/time seen: 09/25/22 12:10 Feels significantly better today in comparison to yesterday; problems with PD cycler/machine so it appears he did not receive a PD treatment overnight; issues with hypotension yesterday evening but responded with IVF bolus; BP actually on the higher side today. Exam Narrative: General: WD/WN male in NAD Heart: normal S1 and S2; no rub Lungs: coarse breath sounds Abdomen: soft, nontender, nondistended, positive bowel sounds Extremities: no cyanosis or clubbing; trace edema Skin: warm and intact Objective Data Vital Signs Vital Signs: Vital Signs Temp Pulse Resp BP Pulse Ox O2 Del Method 09/25/22 08:53 80 09/25/22 08:06 160/98 H 09/25/22 05:39 97.6 F 75 16 170/101 H 100 09/24/22 20:00 64 16 100 Room Air 09/24/22 20:00 182/94 H 09/24/22 20:23 64 09/24/22 20:17 97.6 F 66 16 182/94 H 100 Intake/Output Intake/Output: Intake & Output 09/22/22 09/23/22 09/24/22 09/25/22 23:59 23:59 23:59 23:59 Intake Total 440 440 730 830 Output Total 40 100 0 Balance 400 340 730 830 Meds/Results Medications: Active Medications Generic Name Dose Route Start Last Admin Trade Name Freq PRN Reason Stop Dose Admin Acetaminophen 650 mg 09/25/22 12:32 09/25/22 13:11 Acetaminophen 325 Mg Tablet PO 650 mg Q6H PRN Administration Mild Pain (1-3) or Fever Amlodipine Besylate 2.5 mg 09/22/22 09:00 09/25/22 08:52 Amlodipine Besylate 2.5 Mg Tablet PO 2.5 mg QAM ALEX Administration Aspirin 81 mg 09/18/22 09:00 09/25/22 08:52 Aspirin 81 Mg Chewable Tablet PO 81 mg DAILY ALEX Administration Atorvastatin Calcium 40 mg 09/18/22 09:00 09/25/22 08:52 Atorvastatin 40 Mg Tablet PO 40 mg QAM ALEX Administration Bumetanide 2 mg 09/17/22 21:00 09/24/22 08:55 Bumetanide 1 Mg Tablet PO 2 mg Q12H ALEX Administration Carvedilol 25 mg 09/18/22 21:00 09/25/22 08:53 Carvedilol
[2022-09-25 12:20] LABS: Glucose Point of Care 110 mg/dl (65-105)
[2022-09-25] MEDS: ACETAMINOPHEN 325 MG TABLET 650 MG PO (13:11)
[2022-09-25 16:46] LABS: Glucose Point of Care 112 mg/dl (65-105)
[2022-09-25 21:04] LABS: Glucose Point of Care 146 mg/dl (65-105)
[2022-09-26] VITALS (7 sets, daily range): BP systolic 86–139; BP diastolic 48–78; PULSE 61–80; RESP 16–18; TEMP 35.5–36.6; O2SAT 91–98; BMI 15.5
[2022-09-26 07:21] LABS: Basophils Percent Auto 0.8 % (0.2-1.2); Eosinophils Absolute Auto 0.1 K/mm3 (0-0.3); Eosinophils Percent Auto 1.7 % (0-4.4); Hematocrit 34.2 % (42.0-52.0); Hemoglobin 11.4 g/dL (14.0-18.0); Immature Granulocyte Absolute 0.02 K/mm3 (0.00-0.031); Immature Granulocyte Percent A 0.4 % (0-0.5); Lymphocytes Absolute Auto 1.87 K/mm3 (0.9-3.2); Lymphocytes Percent Auto 35.1 % (18.3-44.2); Mean Corpuscular HGB Conc 33.3 g/dl (32-36); Mean Corpuscular Hemoglobin 30.3 pg (26-34); Mean Platelet Volume 9.7 fl (7.4-10.4); Monocytes Absolute Auto 0.5 K/mm3 (0.1-0.6); Monocytes Percent Auto 9.4 % (2.6-8.5); Neutrophils Absolute Auto 2.8 K/mm3 (1.3-6.7); Neutrophils Percent Auto 52.6 % (45.5-73.1); Platelet Count Result 217 k/mm3 (150-375); Red Blood Count 3.76 M/mm3 (4.6-6.20); Red Cell Distribution Width 13.7 % (11.5-14.5); White Blood Count 5.3 K/mm3 (4.5-10.0)
[2022-09-26 07:24] LABS: Alanine Aminotransferase 16 U/L (6-50); Albumin Level 3.1 g/dL (3.5-5.1); Alkaline Phosphatase 90 U/L (38-126); Anion Gap 9 mmol/L (8-16); Aspartate Amino Transferase 15 U/L (17-59); Bilirubin,Total 0.4 mg/dL (0.2-1.3); Blood Urea Nitrogen 46 mg/dL (9-20); Calcium 9.5 mg/dL (8.4-10.2); Carbon Dioxide 27 mmol/L (22-30); Chloride 97 mmol/L (98-107); Estimated CRCL calculation 5 ml/min; Estimated Glomerular Filt Rate 5; Glucose 97 mg/dL (65-110); Magnesium 1.9 mg/dL (1.6-2.3); Potassium 3.5 mmol/L (3.4-5.0); Sodium 133 mmol/L (137-145)
--- NOTE | 2022-09-26 07:28 | PC.NURSE ---
PD did not seem to be working right. Called dialysis occupational therapy assist and was told someone will call me back after 07:00.
[2022-09-26 07:52] LABS: Glucose Point of Care 85 mg/dl (65-105)
[2022-09-26] MEDS: ATORVASTATIN 40 MG TABLET PO (09:01)
[2022-09-26] MEDS: HEPARIN SODIUM 5,000 UNITS/ML VIAL 5000 UNITS SUB-Q ×2 (09:01→20:15)
[2022-09-26] MEDS: VENLAFAXINE HCL 75 MG TABLET PO ×2 (09:01→20:15)
[2022-09-26] MEDS: FAMOTIDINE 20 MG TABLET PO ×2 (09:01→20:15)
[2022-09-26] MEDS: ASPIRIN 81 MG CHEWABLE TABLET PO (09:01)
[2022-09-26] MEDS: VENLAFAXINE HCL 25 MG TABLET PO ×2 (09:01→20:15)
[2022-09-26] MEDS: lisinopriL 20 MG TABLET PO ×2 (09:01→20:15)
[2022-09-26] MEDS: GABAPENTIN 300 MG CAPSULE 900 MG PO ×2 (09:01→20:15)
[2022-09-26] MEDS: amLODIPine BESYLATE 2.5 MG TABLET PO (09:01)
[2022-09-26] MEDS: carvediloL 25 MG TABLET PO ×2 (09:02→20:15)
[2022-09-26 09:12] LABS: Appearance Peritoneal Fluid Clear (Clear); Color Peritoneal Fluid Colorless (Colorless); Source Peritoneal Fluid Peritoneal Fluid
[2022-09-26 09:13] LABS: Lymphocytes Peritoneal Fluid 70 %; Monocytes Peritoneal Fluid 30 %; Nucleated Cells Peritoneal Flu 83 /uL (0-500); RBC Peritoneal Fluid 0 /uL (0-100000)
--- NOTE | 2022-09-26 09:38 | P.PNNP_ITS ---
Progress Note: A&P Assessment and Plan (1) End stage renal disease: Code(s): N18.6 - End stage renal disease Status: Chronic Assessment and Plan: * continue nightly peritoneal dialysis treatments * his UF is low. Will use 2 greens any yellow and set of all yellows. * Volume status looks okay. * Potassium is okay. (2) Pneumonia: Code(s): J18.9 - Pneumonia, unspecified organism Status: Acute Assessment and Plan: * suspected based on imaging to date * on antibiotics * follow cultures * feels better. less of a cough (3) Hypercalcemia: Code(s): E83.52 - Hypercalcemia Status: Acute Assessment and Plan: * doing better at this time * off phoslo and calcitriol * s/p calcitonin * Calcium normal now. * Phosphorus 5.4. * He will need binders now that he is eating better. Will go ahead and start Sevelamer. (4) Combined systolic and diastolic congestive heart failure: Code(s): I50.40 - Unspecified combined systolic (congestive) and diastolic (congestive) heart failure Status: Acute Assessment and Plan: * slow improvement with fluid removal/ultrafiltration * continue current therapy (5) Infective endocarditis: Code(s): I33.0 - Acute and subacute infective endocarditis Status: Acute Assessment and Plan: * s/p 6 weeks of IV antibiotic therapy * repeat blood cultures negative (6) Hypertension: Code(s): I10 - Essential (primary) hypertension Status: Chronic Assessment and Plan: * his blood pressure is widely variable ranging from 64-174. * BP can be quite erratic from review of home records as well * will keep own current medications for now. He is on lisinopril and carvedilol, both relatively long acting medications. He has hydralazine IV ordered p.r.n. but has not had any lately. (7) Chronic anemia: Code(s): D64.9 - Anemia, unspecified Status: Chronic Assessment and Plan: * due to ESRD * H/H in range at this time * Epogen still on hold (8) Insulin dependent type 2 diabetes mellitus: Code(s): E11.9 - Type 2 diabetes mellitus without complications; Z79.4 - primary counselor (current) use of insulin Status: Chronic Assessment and Plan: * management per hospitalists. Subjective Date/time seen: 09/26/22 09:38 Interval history: 09/19 Patient feels better. He has not been out of bed though. He is on peritoneal dialysis and tolerating it well. He was seen at 8:00 a.m.. His UF was around 1700 and his initial drain was 3600. 09/20 the patient is feeling okay. His dialysis did not go well last night. Apparently 1 of the ancillary staff placed his drain bag on top of his machine not realizing it was actually supposed to be on the floor. Will do extra dialysis today 09/21 Pankaj got up last night to go to the bathroom and fell on his face. He was evaluated. CT scan showed old infarcts and no fractures. Today he feels better. He had his PD last night but when he fell he had to go down for CT scan so a nurse on duty was able to disconnect and reconnect him. 09/22 pt feels okay. did well on PD and UF 3700 or so per nursing. pt has no sob or cp. fluid clear and flows good. seen at 12:30pm 09/23 in room. We discussed the case. He seems a little sleepier today. No chest pain or shortness of breath. He is on peritoneal dialysis and tolerating it well. His initial drain was
--- NOTE | 2022-09-26 09:38 | PM.PNNEP ---
Progress Note: A&P Assessment and Plan (1) End stage renal disease: Code(s): N18.6 - End stage renal disease Status: Chronic Assessment and Plan: continue nightly peritoneal dialysis treatments his UF is low. Will use 2 greens any yellow and set of all yellows. Volume status looks okay. Potassium is okay. (2) Pneumonia: Code(s): J18.9 - Pneumonia, unspecified organism Status: Acute Assessment and Plan: suspected based on imaging to date on antibiotics follow cultures feels better. less of a cough (3) Hypercalcemia: Code(s): E83.52 - Hypercalcemia Status: Acute Assessment and Plan: doing better at this time off phoslo and calcitriol s/p calcitonin Calcium normal now. Phosphorus 5.4. He will need binders now that he is eating better. Will go ahead and start Sevelamer. (4) Combined systolic and diastolic congestive heart failure: Code(s): I50.40 - Unspecified combined systolic (congestive) and diastolic (congestive) heart failure Status: Acute Assessment and Plan: slow improvement with fluid removal/ultrafiltration continue current therapy (5) Infective endocarditis: Code(s): I33.0 - Acute and subacute infective endocarditis Status: Acute Assessment and Plan: s/p 6 weeks of IV antibiotic therapy repeat blood cultures negative (6) Hypertension: Code(s): I10 - Essential (primary) hypertension Status: Chronic Assessment and Plan: his blood pressure is widely variable ranging from 64-174. BP can be quite erratic from review of home records as well will keep own current medications for now. He is on lisinopril and carvedilol, both relatively long acting medications. He has hydralazine IV ordered p.r.n. but has not had any lately. (7) Chronic anemia: Code(s): D64.9 - Anemia, unspecified Status: Chronic Assessment and Plan: due to ESRD H/H in range at this time Epogen still on hold (8) Insulin dependent type 2 diabetes mellitus: Code(s): E11.9 - Type 2 diabetes mellitus without complications; Z79.4 - long-term (current) use of insulin Status: Chronic Assessment and Plan: management per hospitalists. Subjective Date/time seen: 09/26/22 09:38 Interval history: 09/19 Patient feels better. He has not been out of bed though. He is on peritoneal dialysis and tolerating it well. He was seen at 8:00 a.m.. His UF was around 1700 and his initial drain was 3600. 09/20 the patient is feeling okay. His dialysis did not go well last night. Apparently 1 of the ancillary staff placed his drain bag on top of his machine not realizing it was actually supposed to be on the floor. Will do extra dialysis today 09/21 Pankaj got up last night to go to the bathroom and fell on his face. He was evaluated. CT scan showed old infarcts and no fractures. Today he feels better. He had his PD last night but when he fell he had to go down for CT scan so a nurse on duty was able to disconnect and reconnect him. 09/22 pt feels okay. did well on PD and UF 3700 or so per nursing. pt has no sob or cp. fluid clear and flows good. seen at 12:30pm 09/23 in room. We discussed the case. He seems a little sleepier today. No chest pain or shortness of breath. He is on peritoneal dialysis and tolerating it well. His initial drain was 1100 and his UF was about 1700. He was seen at 1:10 p.m. 09/26 patient is on peritoneal dialysis. Tolerating it well. UF was negative by about 100cc. He is on all yellows. No shortness of breath or swelling. Mental status has cleared substantially. Exam Narrative: General: WD/WN male in NAD Heart: normal S1 and S2; no rub Lungs: coarse breath sounds Abdomen: soft, nontender, nondistended, positive bowel sounds Extremities: no cyanosis or clubbing; trace ed
[2022-09-26 11:46] LABS: Glucose Point of Care 137 mg/dl (65-105)
[2022-09-26] MEDS: SEVELAMER CARBONATE 800 MG TABLET PO ×2 (12:26→17:04)
[2022-09-26] MEDS: GENTAMICIN SULFATE 0.1% OINT 15 GM TUBE 1 APPLIC TOPICAL (16:57)
[2022-09-26 16:59] LABS: Glucose Point of Care 100 mg/dl (65-105)
--- NOTE | 2022-09-26 22:28 | PC.NURSE ---
Pt is on peritoneal dialysis. Pt is tolerating well. Pt has participated and contributed in plan of care. Pt PD site is clean dry and intact is left lower abdomen. Pt has a brace on each leg/ankle. Pt has no complaints of pain and expresses no other needs at this time. Will continue to monitor pt.
[2022-09-27 00:11] LABS: Glucose Point of Care 221 mg/dl (65-105)
[2022-09-27 06:00] VITALS: BP 104/72; PULSE 77; RESP 16; TEMP 35.9; O2SAT 98
[2022-09-27 06:47] LABS: Basophils Absolute Auto 0.1 K/mm3 (0.0-0.1); Basophils Percent Auto 0.9 % (0.2-1.2); Eosinophils Absolute Auto 0.1 K/mm3 (0-0.3); Eosinophils Percent Auto 1.4 % (0-4.4); Hematocrit 36.4 % (42.0-52.0); Hemoglobin 11.9 g/dL (14.0-18.0); Immature Granulocyte Absolute 0.04 K/mm3 (0.00-0.031); Immature Granulocyte Percent A 0.7 % (0-0.5); Lymphocytes Percent Auto 35.7 % (18.3-44.2); Mean Corpuscular HGB Conc 32.7 g/dl (32-36); Mean Corpuscular Hemoglobin 30.7 pg (26-34); Mean Corpuscular Volume 93.8 fl (80-100); Mean Platelet Volume 9.8 fl (7.4-10.4); Monocytes Absolute Auto 0.7 K/mm3 (0.1-0.6); Monocytes Percent Auto 12.1 % (2.6-8.5); Neutrophils Absolute Auto 2.9 K/mm3 (1.3-6.7); Neutrophils Percent Auto 49.2 % (45.5-73.1); Platelet Count Result 236 k/mm3 (150-375); Red Blood Count 3.88 M/mm3 (4.6-6.20); Red Cell Distribution Width 14.1 % (11.5-14.5); White Blood Count 5.9 K/mm3 (4.5-10.0)
[2022-09-27 06:58] LABS: Alanine Aminotransferase 19 U/L (6-50); Albumin Level 3.2 g/dL (3.5-5.1); Alkaline Phosphatase 106 U/L (38-126); Anion Gap 10 mmol/L (8-16); Aspartate Amino Transferase 21 U/L (17-59); Bilirubin,Total 0.4 mg/dL (0.2-1.3); Blood Urea Nitrogen 47 mg/dL (9-20); Calcium 9.3 mg/dL (8.4-10.2); Carbon Dioxide 29 mmol/L (22-30); Chloride 92 mmol/L (98-107); Estimated CRCL calculation 8 ml/min; Estimated Glomerular Filt Rate 5; Glucose 101 mg/dL (65-110); Magnesium 2.1 mg/dL (1.6-2.3); Potassium 3.7 mmol/L (3.4-5.0); Sodium 131 mmol/L (137-145)
[2022-09-27 07:45] LABS: Glucose Point of Care 104 mg/dl (65-105)
[2022-09-27 07:48] VITALS: BP 104/72; PULSE 77; RESP 16; TEMP 35.9
[2022-09-27 08:00] VITALS: O2SAT 96
[2022-09-27] MEDS: SEVELAMER CARBONATE 800 MG TABLET PO ×2 (08:37→11:26)
[2022-09-27] MEDS: GABAPENTIN 300 MG CAPSULE 900 MG PO (08:37)
[2022-09-27] MEDS: VENLAFAXINE HCL 25 MG TABLET PO (08:37)
[2022-09-27] MEDS: ATORVASTATIN 40 MG TABLET PO (08:37)
[2022-09-27] MEDS: FAMOTIDINE 20 MG TABLET PO (08:38)
[2022-09-27] MEDS: ASPIRIN 81 MG CHEWABLE TABLET PO (08:38)
[2022-09-27] MEDS: HEPARIN SODIUM 5,000 UNITS/ML VIAL 5000 UNITS SUB-Q (08:38)
[2022-09-27] MEDS: VENLAFAXINE HCL 75 MG TABLET PO (08:38)
[2022-09-27] MEDS: GENTAMICIN SULFATE 0.1% OINT 15 GM TUBE 1 APPLIC TOPICAL (08:40)
[2022-09-27 08:46] VITALS: PULSE 78
[2022-09-27] MEDS: carvediloL 25 MG TABLET PO (08:46)
[2022-09-27 11:17] LABS: Glucose Point of Care 215 mg/dl (65-105)
[2022-09-27] MEDS: INSULIN ASPART (*BKC) 100 UNITS/ML SUB-Q (11:26)
--- NOTE | 2022-09-27 13:13 | PM.DS ---
DS: Admitting Diagnosis Discharge Date 09/27/2022 Admitting Diagnosis fever DS: Discharge Diagnosis Discharge Diagnosis (1) Pneumonia: Code(s): J18.9 - Pneumonia, unspecified organism Status: Acute (2) Polyneuropathy: Code(s): G62.9 - Polyneuropathy, unspecified Status: Acute (3) Ankle fracture, left: Code(s): S82.892A - Other fracture of left lower leg, initial encounter for closed fracture Status: Acute (4) End stage renal disease: Code(s): N18.6 - End stage renal disease Status: Chronic (5) Diabetic foot ulcer: Code(s): E11.621 - Type 2 diabetes mellitus with foot ulcer; L97.509 - Non-pressure chronic ulcer of other part of unspecified foot with unspecified severity Status: Acute (6) Combined systolic and diastolic congestive heart failure: Code(s): I50.40 - Unspecified combined systolic (congestive) and diastolic (congestive) heart failure Status: Acute (7) Anemia: Qualifiers: Anemia type: due to chronic kidney disease Chronic kidney disease stage: stage 5, not on chronic dialysis Qualified Code(s): N18.5 - Chronic kidney disease, stage 5; D63.1 - Anemia in chronic kidney disease Code(s): D64.9 - Anemia, unspecified Status: Chronic (8) Chronic kidney disease (CKD), stage V: Code(s): N18.5 - Chronic kidney disease, stage 5 Status: Chronic (9) Insulin dependent type 2 diabetes mellitus: Code(s): E11.9 - Type 2 diabetes mellitus without complications; Z79.4 - salvage determiner (current) use of insulin Status: Chronic (10) History of aortic valve replacement with bioprosthetic valve: Code(s): Z95.3 - Presence of xenogenic heart valve Status: Acute (11) Elevated troponin: Code(s): R79.89 - Other specified abnormal findings of blood chemistry Status: Acute (12) Essential hypertension: Code(s): I10 - Essential (primary) hypertension Status: Acute (13) Wound of foot: Code(s): S91.309A - Unspecified open wound, unspecified foot, initial encounter Status: Acute DS: Summary Hospital Course Hospital Course: # fever: patient presented with fever sinus congestion for retic cough. Chest x-ray with pneumonia versus pulmonary vascular congestion -The patient was started on the healthcare associated pneumonia antibiotic stewardship with vancomycin, Levaquin and cefepime.? -continue with nebulizer treatments. hisblood and sputum cultures remain negative. -patient has mild leukocytosis. which is resolved now there also concern for peritonitis as of cause of fever because of peritoneal dialysis status. Peritoneal fluid negative for signs of infection Chest x-ray wasAlso concerning for pulmonary edema.? Volume overloaded and missed peritoneal dialysis in .? Plan to get /optimize volume status during the hospital stay was started on IV Bumex along with continuation of peritoneal dialysis. He also has History of infective endocarditis with MSSA in April.? Finished a course of nafcillin recently Patient blood cultures been negative to date. His antibiotics was further tapered with stopping vancomycin cefepime. He completed all his antibiotic course during the hospital stay. # pneumonia: See above # polyneuropathy: -continue with gabapentin -continue with venlafaxine # left ankle fracture chronic: -the patient has a boot to the left leg.? He stated that it is to be kept on most times and would not remove it at this point.? Patient stated that he does not want to go to surgery at this time as he is afraid that it would mess up his ability to be on the renal transplant list.? He plans have surgery on it after he receives his kidney. # end-stage renal disease on peritoneal dialysis: -the patient has peritoneal dialysis nightly.? -nephrology has been consulted. -the patient is on a renal transplant list. -further recommendation per Nephrology.? # abdominal pain: ?
== END 2022-09-27 14:10 | disposition home health service (06) | DRG 871 ==
LOC: ANHED 11:50 → ANHIMU 13:59 → ANH3MEDSUR 09-18 14:33
PROVIDERS: Family Medicine; Internal Medicine; Internal Medicine Nephrology; Nurse Practitioner; Physician Assistant; Admitting Provider Internal Medicine; Emergency Provider Emergency Medicine; PCP Family Medicine; Visit Provider Internal Medicine
DX: A41.9 Sepsis, unspecified organism (principal); J18.9 Pneumonia, unspecified organism; N18.6 End stage renal disease; I13.2 Hypertensive heart and chronic kidney disease with heart failure and with stage 5 chronic kidney disease, or end stage renal disease; I50.42 Chronic combined systolic (congestive) and diastolic (congestive) heart failure; E87.20 Acidosis, unspecified; Z20.822 Contact with and (suspected) exposure to COVID-19; E11.42 Type 2 diabetes mellitus with diabetic polyneuropathy; E11.22 Type 2 diabetes mellitus with diabetic chronic kidney disease; D63.1 Anemia in chronic kidney disease; M19.90 Unspecified osteoarthritis, unspecified site; K21.9 Gastro-esophageal reflux disease without esophagitis; I73.9 Peripheral vascular disease, unspecified; N25.0 Renal osteodystrophy; E11.21 Type 2 diabetes mellitus with diabetic nephropathy; E11.319 Type 2 diabetes mellitus with unspecified diabetic retinopathy without macular edema; E11.621 Type 2 diabetes mellitus with foot ulcer; L97.519 Non-pressure chronic ulcer of other part of right foot with unspecified severity; S09.93XA Unspecified injury of face, initial encounter; W06.XXXA Fall from bed, initial encounter; I95.2 Hypotension due to drugs; T50.3X5A Adverse effect of electrolytic, caloric and water-balance agents, initial encounter; S82.892A Other fracture of left lower leg, initial encounter for closed fracture; X58.XXXA Exposure to other specified factors, initial encounter; Z66 Do not resuscitate; Z79.4 Long term (current) use of insulin; Z95.3 Presence of xenogenic heart valve; Z99.2 Dependence on renal dialysis; I69.322 Dysarthria following cerebral infarction; Z86.16 Personal history of COVID-19; Z87.891 Personal history of nicotine dependence; Z89.412 Acquired absence of left great toe; Z95.1 Presence of aortocoronary bypass graft; Z79.01 Long term (current) use of anticoagulants
CPT/HCPCS: 36415; 36600; 70450; 70551; 71045; 71046; 80048; 80053; 80069; 80202; 82274; 82728; 82805; 82948; 83605; 83735; 83880; 84100; 84484; 85025; 85027; 85610; 85730; 86706; 87040; 87070; 87075; 87205; 87340; 87636; 89051; 90945; 92507; 92526; 92610; 92611; 93005; 96365; 96366; 96367; 96372; 97110; 97116; 97163; 97165; 97530; 97535; 99285; A9270; G0378; G0379; J0630; J0692; J1644; J1815; J1956; J3370; J3475; J7040; J7050; Q5105

== ENCOUNTER 2022-10-20 07:22 | Outpatient (RCR) | payer OTHER, MEDICARE, SELFPAY ==
[2022-07-22 10:46] VITALS: BMI 28.0
== END 2022-10-20 23:59 | disposition home or self-care (01) ==
LOC: ANHWOC 07:22
PROVIDERS: PCP Family Medicine; Visit Provider Podiatrist Foot & Ankle Surgery
DX: E10.621 Type 1 diabetes mellitus with foot ulcer (principal); L97.412 Non-pressure chronic ulcer of right heel and midfoot with fat layer exposed; M14.671 Charcot's joint, right ankle and foot
CPT/HCPCS: 29445; 99213; 99214; G0463; L2116

== ENCOUNTER 2022-11-24 13:11 | Inpatient (IN) | payer OTHER, MEDICARE, SELFPAY ==
[2022-11-24] VITALS (24 sets, daily range): BP systolic 116–179; BP diastolic 82–119; PULSE 98–120; RESP 13–35; TEMP 36.2–38.2; O2SAT 90–100; BMI 28.4
--- NOTE | ~2022-11-24 | MR_ITS ---
MRI of the right foot Clinical History: Wound Technique: Sagittal T1-weighted and STIR images, axial T1-weighted and T2 fat-sat images, and coronal T1-weighted and T2 fat-sat images were performed through the forefoot. Findings: There is probable focal T1 hypointense signal with loss of cortical integrity at the distal tuft of the distal phalanx of the great toe, consistent with osteomyelitis focally dislocation. Ther e is extensive destructive change with confluent hypointense T1 marrow signal involving the distal ph alanx of the fourth digit, consistent with osteomyelitis. There is confluent hypointense T1 marrow si gnal destructive change involving the fifth metatarsal head as well as the fifth proximal phalanx, co nsistent with osteomyelitis. Underlying septic arthritis at the fifth MTP joint cannot be excluded, b ut there is only minimal joint fluid present. There is probable chronic posttraumatic change of the proximal phalanx of the great toe. There are pr obable chronic, nonunited fractures of the second and third distal metatarsal necks, without signific ant marrow edema. Plantar musculature of the foot is unremarkable. Visualized plantar fascia is intact. There is appare nt complete rupture of the flexor hallucis longus tendon at the level of the metatarsophalangeal join t, with a gap of approximately 2 cm present. There is advanced osteoarthritis of the first metatarsop halangeal joint. IMPRESSION: Osteomyelitis involving the fifth metatarsal head and fifth proximal phalanx. Septic arthritis the fi fth MTP joint cannot be excluded, but there is only minimal joint fluid present. Additional osteomyelitis extensively involving the distal phalanx of the fourth digit. Focal osteomyelitis of the distal tuft of the distal phalanx of the great toe. Complete rupture of the flexor hallucis longus tendon at the level of the first MTP joint, with 2 cm gap present. Chronic fracture deformities of the distal second and third metatarsal necks. Additional probable chr onic posttraumatic change of the proximal phalanx of the great toe. Severe osteoarthritis of the first metatarsophalangeal joint. Reviewed, dictated and finalized at location [facility]. [employer] REP IMPRESSION: Osteomyelitis involving the fifth metatarsal head and fifth proximal phalanx. S eptic arthritis the fifth MTP joint cannot be excluded, but there is only minim al joint fluid present. Additional osteomyelitis extensively involving the distal phalanx of the fourth digit. Focal osteomyelitis of the distal tuft of the distal phalanx of the great toe. Complete rupture of the flexor hallucis longus tendon at the level of the first MTP joint, with 2 cm gap present. Chronic fracture deformities of the distal second and third metatarsal necks. A dditional probable chronic posttraumatic change of the proximal phalanx of the great toe. Severe osteoarthritis of the first metatarsophalangeal joint.
--- NOTE | ~2022-11-24 | XR_ITS ---
EXAMINATION: XR foot RT min 3V DATE: 11/24/2022 15:49 INDICATION: Puncture wounds of the right foot TECHNIQUE: Dorsoplantar, lateral, and 2 oblique views of the right foot were obtained. COMPARISON: 04/30/2022 FINDINGS: There appears to be a chronic healed fracture deformity of the first proximal phalanx. Ther e is a chronic fracture in the distal neck of the second metatarsal with partial healing. The previou sly described fracture of the distal neck of the third metatarsal has healed. There is a soft tissue ulceration projecting at the plantar aspect of the distal foot on the lateral view. Plantar calcaneal enthesophyte is noted. There is calcified atherosclerosis. IMPRESSION: 1. Plantar soft tissue ulceration of the distal foot. Otherwise chronic findings without acute osseou s abnormality identified. Reviewed, dictated and finalized at location [facility]. [facility] IMPRESSION: 1. Plantar soft tissue ulceration of the distal foot. Otherwise chronic finding s without acute osseous abnormality identified.
--- NOTE | ~2022-11-24 | CT_ITS ---
Non-contrast Head CT History: Altered mental status COMPARISON: 09/20/2022 Technique: Axial non-contrast imaging of the brain was performed. Dose reduction technique was used on this scan by utilizing automated exposure control and iterative reconstruction technique. The dose -length product (DLP) was 605.33 mGy-cm. Findings: There is no evidence of intracranial hemorrhage, mass lesion, or acute infarct. Stable chr onic focal infarct in the inferior right frontal lobe. Additional small chronic infarct noted in the right occipital lobe. The ventricles and subarachnoid spaces are normal in size. The calvarium appea rs normal. The visualized paranasal sinuses and mastoid air cells are clear. Impression: No acute abnormality. Stable chronic infarcts, as noted above. Reviewed, dictated and finalized at [facility]. [employer] Impression: No acute abnormality. Stable chronic infarcts, as noted above.
--- NOTE | ~2022-11-24 | XR_ITS ---
EXAMINATION: XR chest 2V DATE: 11/24/2022 14:08 INDICATION: Weakness. Fever. TECHNIQUE: Frontal and lateral views of the chest were obtained. COMPARISON: Chest single view 09/24/2022 FINDINGS: A calcified right lung nodule and calcified right hilar lymph nodes are consistent with old granulomatous disease. No pneumonia, pleural effusion, or pneumothorax. The heart size is normal. Th ere are changes of aortic valve replacement. IMPRESSION: 1. No acute cardiopulmonary disease. Reviewed, dictated and finalized at location A. [employer]
--- NOTE | 2022-11-24 13:29 | ECG_ITS ---
Measurements Intervals [place] Rate: 123 P: 12 [place]: 151 QRS: 5 QRSD: 78 T: 72 QT: 314 QTc: 449 Interpretive Statements SINUS TACHYCARDIA NONSPECIFIC T-WAVE ABNORMALITY ABNORMAL RHYTHM ECG COMPARED TO ECG 09/17/2022 09:17:23 PVCS ARE NOT PRESENT CURRENTLY Electronically Signed On 11-25-2022 14:28:41 [employer] by Liam Pham M.D.
[2022-11-24 13:46] LABS: Basophils Absolute Auto 0.1 K/mm3 (0.0-0.1); Basophils Percent Auto 0.5 % (0.2-1.2); Eosinophils Percent Auto 0.3 % (0-4.4); Hematocrit 39.4 % (42.0-52.0); Hemoglobin 12.5 g/dL (14.0-18.0); Immature Granulocyte Absolute 0.04 K/mm3 (0.00-0.031); Immature Granulocyte Percent A 0.3 % (0-0.5); Lymphocytes Absolute Auto 0.85 K/mm3 (0.9-3.2); Lymphocytes Percent Auto 6.7 % (18.3-44.2); Mean Corpuscular HGB Conc 31.7 g/dl (32-36); Mean Corpuscular Hemoglobin 29.5 pg (26-34); Mean Corpuscular Volume 92.9 fl (80-100); Mean Platelet Volume 9.4 fl (7.4-10.4); Monocytes Absolute Auto 0.9 K/mm3 (0.1-0.6); Monocytes Percent Auto 6.8 % (2.6-8.5); Neutrophils Absolute Auto 10.8 K/mm3 (1.3-6.7); Neutrophils Percent Auto 85.4 % (45.5-73.1); Platelet Count Result 252 k/mm3 (150-375); Red Blood Count 4.24 M/mm3 (4.6-6.20); Red Cell Distribution Width 13.6 % (11.5-14.5); White Blood Count 12.6 K/mm3 (4.5-10.0)
[2022-11-24 13:56] LABS: Alanine Aminotransferase 14 U/L (6-50); Albumin Level 3.5 g/dL (3.5-5.1); Alkaline Phosphatase 135 U/L (38-126); Anion Gap 11 mmol/L (8-16); Aspartate Amino Transferase 17 U/L (17-59); Blood Urea Nitrogen 37 mg/dL (9-20); Carbon Dioxide 29 mmol/L (22-30); Chloride 90 mmol/L (98-107); Estimated CRCL calculation 8 ml/min; Estimated Glomerular Filt Rate 6; Glucose 125 mg/dL (65-110); Potassium 5.1 mmol/L (3.4-5.0); Sodium 130 mmol/L (137-145)
--- NOTE | 2022-11-24 14:46 | ED.WEAKNESS ---
HPI - Weakness General Chief complaint: Weakness Stated complaint: weak, fever Time Seen by Provider: 11/24/22 14:46 Source: patient Mode of arrival: ambulatory Limitations: no limitations History of Present Illness HPI Narrative: The patient is a 57-year-old male with a history of end-stage renal disease on peritonealdialysis, type 2 diabetes, hypertension, hyperlipidemia, anemia of chronic disease, diabetic foot ulcer, chronic deformity to left lower extremity, presenting to the emergency department for evaluation of fever, weakness. Patient states he has had up to 102 degree fever today. He reports chills, myalgias. Patient reports mild rhinorrhea and cough. Denies any significant chest pain. Denies hemoptysis. Patient denies recent fall or injury. He still makes urine and denies any dysuria or hematuria. Patient per chart review with history of infective endocarditis in the past, as well as chronic right diabetic foot wound. Patient states that he and family dressed this at home. Patient reports malodorous smell without significant purulence. States that it does bleed often. Patient and family deny any recent sick contacts. No recent medication changes. Patient has not missed any dialysis sessions. History is obtained from patient and family Related Data Home Medications Medication Instructions Recorded Confirmed calcitriol 0.5 mcg capsule 0.5 mcg PO QMWF 10/20/21 09/17/22 famotidine 40 mg tablet 20 mg PO Q12H 10/20/21 09/17/22 gabapentin 300 mg capsule 900 mg PO Q12H 10/20/21 09/17/22 venlafaxine 100 mg tablet 100 mg PO Q12H 10/20/21 09/17/22 atorvastatin 40 mg tablet 40 mg PO QAM 09/17/22 09/17/22 carvedilol 12.5 mg tablet 12.5 mg PO Q12H 09/17/22 09/17/22 lisinopril 10 mg tablet 20 mg PO Q12H 09/17/22 09/17/22 Allergies Allergy/AdvReac Type Severity Reaction Status Date / Time No Known Allergies Allergy Verified 11/24/22 14:50 Review of Systems Review of Systems: CONSTITUTIONAL: Reports fever and chills EYES: Denies visual changes, redness, or discharge. ENT: Reports runny nose and congestion CARDIOVASCULAR: Denies chest pain, palpitations, or edema. RESPIRATORY: Reports mild cough without shortness of breath GASTROINTESTINAL: Denies abdominal pain, nausea, vomiting, or diarrhea. GENITOURINARY: Denies dysuria or hematuria. Reports decreased urine output. SKIN: Denies rash or itching. Reports chronic ulceration to right foot, reports it is malodorous. MUSCULOSKELETAL: Denies back pain, joint pain, reports myalgias NEUROLOGIC: Denies headache, numbness, reports generalized weakness PMFSH Past Medical History Medical History Arthritis Bicuspid aortic valve Severe aortic stenosis status post bioprosthetic aortic valve replacement. Cerebrovascular accident (09/21/20) Thought to be embolic in nature, on long-term anticoagulation. Residual dysarthria. 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 Required temporary dialysis for a few months in spring 2019. Combined systolic and diastolic congestive heart failure Echocardiogram dated 11/03/2020 showed mildly enlarged left ventricular chamber with normal left ventricular systolic function and ejection fraction of 55 to 60% (as low as 35% on previous echos), moderate increased LV wall thickness, grade 3 diastolic dysfunction, and mild mitral and tricuspid valve regurgitation. COVID-19 Diabetes Diabetic foot ulcer Dialysis patient Encounter for central line placement End-stage renal disease on peritoneal dialysis Essential hypertension Finger fracture Former smoker 50 pack year smoking history, quit in 1987. Gastroesophageal reflux disease Hiatal hernia History of hemodialysis History of acute kidney injury on chronic kidney disease requiring hemodi
[2022-11-24] MEDS: ACETAMINOPHEN 500 MG TABLET 1000 MG PO (15:42)
[2022-11-24] MEDS: SODIUM CHLORIDE 0.9% IV 1,000 ML 999 ML IV CONT (15:45)
[2022-11-24 16:18] LABS: Influenza A QL RT-PCR Negative (Negative); Influenza B QL RT-PCR Negative (Negative); RSV RNA, RT-PCR Negative (Negative); SARS-CoV-2 RNA PCR Negative
[2022-11-24] MEDS: metroNIDAZOLE 500 MG/ISO 100ML 500 MG/100 ML BAG 100 MG IVPB ×2 (17:00→23:36)
[2022-11-24 17:12] LABS: Lactic Acid Reflex 1.1 mmol/L (0.7-2.0)
[2022-11-24 17:17] LABS: Erythrocyte Sedimentation Rate 121 mm/hr (0-20)
[2022-11-24 17:31] LABS: CRP 15.7 mg/dL (<1.0)
--- NOTE | 2022-11-24 19:34 | PM.IMHP ---
H&P: HPI History of Present Illness Date/Time: 11/24/22 19:34 Chief Complaint: Weakness Narrative: This is a 57-year-old male patient with end-stage renal disease and history of CVA. The patient is on nightly peritoneal dialysis. The patient has a chronic foot ulcer and he states that his ulcer has been getting smaller and it did appear to be infected to him. However the patient has a foul smell coming from his right foot. Patient has had a history of infective endocarditis in the past as well as a chronic right diabetic foot wound. He also has a chronic deformity to the left foot. The patient stated that he had up to a 102 degree fever today. His white count is up to 12.6. H&H is 12.5 and 39.4 which is his baseline. Sodium is 130. Potassium is 5.1. BUN is 37 and creatinine is 9.8. C reactive protein is 15.7. He was negative for influenza A/B and COVID. The patient was given Tylenol, normal saline, vancomycin, cefepime, and Flagyl. Nephrology has been consulted as well as Dr. Liang. The patient is being admitted to inpatient status on date of service 11/24/2022 Review of Systems Review of Systems: See HPI All systems reviewed & are unremarkable except as noted in HPI and below Constitutional: Constitutional: Reports as per HPI and Reports no additional constitutional complaints Eyes: Eyes: Reports as per HPI and Reports no additional eye complaints ENT: Reports system reviewed and no additional complaints, except as documented and Reports Normal hearing present Cardiovascular: Cardiovascular: Reports no additional cardiovascular complaints Respiratory: Respiratory: Reports no additional respiratory complaints and Reports no additional respiratory complaints Gastrointestinal: Gastrointestinal: Reports as per HPI and Reports no additional gastrointestinal complaints Musculoskeletal: Musculoskeletal: Reports no additional musculoskeletal complaints Integumentary/Breasts: Skin/Breast: Reports system reviewed and no additional complaints, except as docu and Reports as per HPI Neurologic: Reports system reviewed and no additional complaints, except as documented, Reports as per HPI and Reports Normal hearing present Psychiatric: Psychiatric: Reports no additional psychiatric complaints and Reports as per HPI Endocrine: Endocrine: Reports no additional endocrine complaints Hematologic/Lymphatic: Hematologic/Lymphatic: Reports no additional hematologic/lymphatic complaints Allergic/Immunologic: Allergic/Immunologic: Reports no additional allergic/immunologic complaints [facility] Past Medical History Medical History Arthritis Bicuspid aortic valve Severe aortic stenosis status post bioprosthetic aortic valve replacement. Cerebrovascular accident (09/21/20) Thought to be embolic in nature, on long-term anticoagulation. Residual dysarthria. 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 Required temporary dialysis for a few months in spring 2019. Combined systolic and diastolic congestive heart failure Echocardiogram dated 11/03/2020 showed mildly enlarged left ventricular chamber with normal left ventricular systolic function and ejection fraction of 55 to 60% (as low as 35% on previous echos), moderate increased LV wall thickness, grade 3 diastolic dysfunction, and mild mitral and tricuspid valve regurgitation. COVID-19 Diabetes Diabetic foot ulcer Dialysis patient Encounter for central line placement End-stage renal disease on peritoneal dialysis Essential hypertension Finger fracture Former smoker 50 pack year smoking history, quit in 1987. Gastroesophageal reflux disease Hiatal hernia History of hemodialysis History of acute kidney injury on chronic kidney disease requiring hemodialysis in 2019. He has ontiveros
[2022-11-24 20:52] LABS: Hepatitis B Surface Antigen Negative (Negative)
[2022-11-24 20:57] LABS: Hepatitis B Core IgM Result Negative (Negative)
[2022-11-24] MEDS: LACTATED RINGERS 1,000 ML 125 ML IV CONT (21:01)
[2022-11-24 21:09] LABS: Hepatitis B Surface Anti Res Negative
--- NOTE | 2022-11-24 21:24 | ADMGEN ---
This patient, Pankaj Bautista, was admitted to [address] [place] [address] Room 300-01. Patient/family oriented to hospital policies and general routines including ID bracelet, bed and alarms, visiting hours, pain management, procedures, bathroom and other care routines, personal items, smoking policy, room service/diet, and visiting hours. Information on how to activate the Rapid Response Team has been discussed. Patient/Family are encouraged to report perceived risks to care and to ask questions if they do not understand what they are told or what they should do.
[2022-11-24] MEDS: FAMOTIDINE 20 MG TABLET 40 MG PO (23:36)
[2022-11-24] MEDS: VENLAFAXINE HCL 75 MG TABLET BY MOUTH (23:36)
[2022-11-24] MEDS: VENLAFAXINE HCL 25 MG TABLET BY MOUTH (23:36)
[2022-11-24] MEDS: GABAPENTIN 300 MG CAPSULE 900 MG PO (23:37)
[2022-11-25 02:01] VITALS: PULSE 100
[2022-11-25] MEDS: hydrALAZINE HCL 20 MG/ML VIAL 10 MG IV PUSH ×4 (04:26→23:00)
[2022-11-25 05:04] LABS: Appearance Urine Clear (Clear); Bilirubin Urine Negative (Negative); Blood Urine Trace-lysed (Negative); Color Urine Yellow (Yellow); Glucose Urine UA Trace mg/dL (Negative); Ketones Urine Negative (Negative); Leukocyte Esterase Ur Negative LEU/UL (Negative); Nitrate Urine Negative (Negative); Protein Urine 3+ mg/dL (Negative); Urobilinogen Urine 0.2 mg/dL (<2.0); pH Urine 8.5 (5.0-9.0)
[2022-11-25 05:09] LABS: Bacteria Urine Trace /hpf; Mucus Urine Rare /lpf; RBC Urine 0-2 /hpf (0-2); Squamous Epithelial Cell Urine Rare /hpf (Few); WBC Urine 0-3 /hpf
[2022-11-25 05:12] LABS: Add Urine Microscopic? YES
[2022-11-25 05:56] VITALS: BP 177/112; PULSE 94; RESP 24; TEMP 36.6; O2SAT 100
[2022-11-25] MEDS: cloNIDine HCL 0.1 MG TABLET PO (05:58)
[2022-11-25 07:52] VITALS: BP 177/112; PULSE 94; RESP 24; TEMP 36.7
[2022-11-25 08:12] LABS: Glucose Point of Care 100 mg/dl (65-105)
[2022-11-25] MEDS: lisinopriL 10 MG TABLET PO (08:14)
[2022-11-25] MEDS: GABAPENTIN 300 MG CAPSULE 900 MG PO ×2 (08:14→21:50)
[2022-11-25] MEDS: VENLAFAXINE HCL 25 MG TABLET BY MOUTH ×2 (08:15→21:49)
[2022-11-25] MEDS: calcitrioL 0.25 MCG CAPSULE 0.5 MCG PO (08:15)
[2022-11-25] MEDS: VENLAFAXINE HCL 75 MG TABLET BY MOUTH ×2 (08:15→21:49)
[2022-11-25] MEDS: SEVELAMER CARBONATE 800 MG TABLET 1600 MG PO ×3 (08:15→16:01)
[2022-11-25] MEDS: ASPIRIN 81 MG CHEWABLE TABLET PO (08:15)
[2022-11-25] MEDS: FAMOTIDINE 20 MG TABLET 40 MG PO ×2 (08:15→21:49)
[2022-11-25 09:29] LABS: Basophils Absolute Auto 0.1 K/mm3 (0.0-0.1); Basophils Percent Auto 0.8 % (0.2-1.2); Eosinophils Absolute Auto 0.1 K/mm3 (0-0.3); Eosinophils Percent Auto 0.9 % (0-4.4); Hemoglobin 10.1 g/dL (14.0-18.0); Immature Granulocyte Absolute 0.03 K/mm3 (0.00-0.031); Immature Granulocyte Percent A 0.3 % (0-0.5); Lymphocytes Absolute Auto 1.66 K/mm3 (0.9-3.2); Lymphocytes Percent Auto 18.6 % (18.3-44.2); Mean Corpuscular HGB Conc 31.6 g/dl (32-36); Mean Corpuscular Hemoglobin 29.1 pg (26-34); Mean Corpuscular Volume 92.2 fl (80-100); Mean Platelet Volume 9.4 fl (7.4-10.4); Neutrophils Absolute Auto 6.1 K/mm3 (1.3-6.7); Neutrophils Percent Auto 68.4 % (45.5-73.1); Platelet Count Result 232 k/mm3 (150-375); Red Blood Count 3.47 M/mm3 (4.6-6.20); Red Cell Distribution Width 13.7 % (11.5-14.5); White Blood Count 8.9 K/mm3 (4.5-10.0)
[2022-11-25 09:35] LABS: Alanine Aminotransferase 12 U/L (6-50); Alkaline Phosphatase 92 U/L (38-126); Anion Gap 6 mmol/L (8-16); Aspartate Amino Transferase 14 U/L (17-59); Bilirubin,Total 0.8 mg/dL (0.2-1.3); Blood Urea Nitrogen 37 mg/dL (9-20); Calcium 9.2 mg/dL (8.4-10.2); Carbon Dioxide 29 mmol/L (22-30); Chloride 94 mmol/L (98-107); Estimated CRCL calculation 8 ml/min; Estimated Glomerular Filt Rate 6; Glucose 100 mg/dL (65-110); Potassium 4.2 mmol/L (3.4-5.0); Sodium 129 mmol/L (137-145)
[2022-11-25 09:39] LABS: Lactic Acid Reflex 1.1 mmol/L (0.7-2.0)
[2022-11-25 09:44] LABS: Hemoglobin A1C 5.1 % (<5.7)
--- NOTE | 2022-11-25 09:54 | PM.CNOR ---
Assessment and Plan Assessment and plan (1) Diabetic foot ulcer: Code(s): E11.621 - Type 2 diabetes mellitus with foot ulcer; L97.509 - Non-pressure chronic ulcer of other part of unspecified foot with unspecified severity Status: Acute Assessment and Plan: Patient has a wound on the plantar aspect of the 1st MTP joint of the right foot which measures 3 x 2 x 0.5 cm with tendon exposure. He also has a wound on the lateral aspect of the right foot over the 5th metatarsal head which measures 2 x 2 x 0.5 cm with 100% necrotic tissue. Tendon bone exposure noted. Malodor noted. Purulence noted from this wound as well. Culture obtained from the right lateral foot wound. Radiographs reveal no evidence of osteomyelitis. Suspect osteomyelitis given bone exposure. Recommend MRI of the right foot at this time for further evaluation. Patient will likely require debridement in the operating room is cleared from a medical standpoint given complicated medical history. In the interim, patient to begin daily dressing changes. Will consult Wound Care for recommendations for dressing changes. Likely would benefit from Dakin's to the right lateral foot and silver gel to the plantar 1st MTP joint. Continue antibiotics per medicine team. Will determine further plan of care pending MRI results and assessment by Dr. Whitaker. (2) Ankle fracture, left: Code(s): S82.892A - Other fracture of left lower leg, initial encounter for closed fracture Status: Acute Assessment and Plan: The patient has a chronic left ankle fracture. Unsure of the exact nature of fracture. Per his primary care notes from April of 2022, the patient was seeing an orthopedist. Radiographs in April of 2022 reveal an ankle fracture dislocation and osteochondral lesion of medial talar dome. According to the medical record, patient never had surgery on this foot due to being on the kidney transplant list and unable to undergo surgical intervention. Unsure the name of the orthopedist he saw for this. The patient also had a 1st ray amputation of the left foot in 2019 by Kendall Garcia. The patient wears an Kezia brace to the left foot/ankle. (3) End stage renal disease: Code(s): N18.6 - End stage renal disease Status: Chronic Assessment and Plan: On PD at home. On kidney transplant list at [facility]. (4) Sepsis: Code(s): A41.9 - Sepsis, unspecified organism Status: Acute Assessment and Plan: Right lateral foot wound culture obtained on exam. Await results. Defer antibiotic treatment to medicine team. (5) Fever: Code(s): R50.9 - Fever, unspecified Status: Acute (6) Combined systolic and diastolic congestive heart failure: Code(s): I50.40 - Unspecified combined systolic (congestive) and diastolic (congestive) heart failure Status: Acute (7) End-stage renal disease on peritoneal dialysis: Code(s): N18.6 - End stage renal disease; Z99.2 - Dependence on renal dialysis Status: Acute (8) Diabetes: Code(s): E11.9 - Type 2 diabetes mellitus without complications Status: Chronic Assessment and Plan: Patient states he has not been on insulin for approximately 1 year. HgB A1c ordered. History of Present Illness HPI Consult date: 11/25/22 Chief complaint: Sepsis, wound infection Narrative: 57-year-old male admitted due to a wound on the right foot that appears to be infected. The patient noted a foul smell coming from his right foot wound as well as a fever. He states his wound has been chronic in nature over the last 1 year. 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 He cannot recall the name of his physician at this time. He does have a significant deformity to the left foot and wears an Kezia brace. The patient states that he does ambulate at home as well as uses a walker and a wheelchair. Radiographs of the right foot f
[2022-11-25] MEDS: metroNIDAZOLE 500 MG/ISO 100ML 500 MG/100 ML BAG 100 MG IVPB ×2 (10:08→15:58)
[2022-11-25] MEDS: LACTATED RINGERS 1,000 ML 125 ML IV CONT ×2 (10:08→12:35)
[2022-11-25 10:37] LABS: Appearance Peritoneal Fluid Clear (Clear); Color Peritoneal Fluid Colorless (Colorless); Neutrophils Peritoneal Fluid 18 % (0-25); Nucleated Cells Peritoneal Flu 8 /uL (0-500); RBC Peritoneal Fluid 0 /uL (0-100000); Source Peritoneal Fluid Peritoneal Fluid
[2022-11-25 10:38] LABS: Lymphocytes Peritoneal Fluid 47 %; Monocytes Peritoneal Fluid 35 %
--- NOTE | 2022-11-25 11:47 | PM.CNNEP ---
Assessment and Plan Assessment and plan (1) End stage renal disease: Code(s): N18.6 - End stage renal disease Status: Chronic Assessment and Plan: continue nightly CCPD while hospitalized follow electrolytes, volume status, and clearance (2) Sepsis: Code(s): A41.9 - Sepsis, unspecified organism Status: Acute Assessment and Plan: as noted by fever, leukocytosis, and elevated ESR/CRP blood and would cultures pending on IV antibiotic thera source suspected to be #3 follow hemodynamics (3) Diabetic foot ulcer: Code(s): E11.621 - Type 2 diabetes mellitus with foot ulcer; L97.509 - Non-pressure chronic ulcer of other part of unspecified foot with unspecified severity Status: Acute Assessment and Plan: suspected to be source for #2 Orthopedic recommendations noted follow-up on MRI glycemic control if needed local wound care (4) Essential hypertension: Code(s): I10 - Essential (primary) hypertension Status: Acute Assessment and Plan: erratically erratic by history and outpatient records follow trend of hemodynamics Will continue to follow. History of Present Illness Reason for Consult Consult date: 11/25/22 Reason for consult: end stage renal disease Chief Complaint Chief complaint: Sepsis, wound infection History of Present Illness Narrative: The patient is a 57-year-old male with a past medical history as outlined below who presented to [facility] Emergency room for further evaluation of a possible infected right foot wound. The patient has had a crying a chronic right foot ulcer for least the last year if not longer which had been improving but was concerning for possible infection given recent changes. Specifically, he reports that the wound looks more erythematous and appears to be a foul smell coming from it as well. On the day of admission, he apparently had a fever of 102?. Given his somewhat complex medical history particular with regard to infections, he presented to the ER for further assessment. Workup and evaluation emergency room demonstrated the patient to be hemodynamically stable (if not hypertensive ) with routine blood tests that were significant for labs consistent with his known history of end-stage renal disease but with no critical electrolyte abnormalities, mild anemia, and white blood cell count that was up to 12.6. C reactive protein was elevated and he was negative for influenza A/B as well as COVID-19. His chest x-ray was negative as well. He was given a combination of Tylenol, IV fluids, and broad-spectrum IV antibiotic therapy after appropriate cultures were obtained. Orthopedics was consulted and the patient was subsequently admitted to the hospital for further evaluation and therapy. Since his admission, he received peritoneal dialysis overnight without any issues or problems and was seen by Orthopedic surgery earlier this morning with recommendations noted including an MRI of his right foot to evaluate for the suspicion of osteomyelitis. Renal consultation was requested due to his end-stage renal disease. The patient is quite familiar to me as I take care of his outpatient dialysis needs. He normally does peritoneal dialysis at home through [facility] under my care. He was initially initiated on renal replacement therapy via hemodialysis and subsequently transitioned to peritoneal dialysis at a later date. From the perspective of his peritoneal dialysis, his treatments have been going fairly well and he has had relative stability in his monthly CKD labs with his ongoing peritoneal dialysis treatments. He tolerated peritoneal dialysis yesterday evening without any issues or problems. Currently, at the time my visit, he appears to be in no acute distress. Review of Systems Review of Systems: As per HPI. [facility] Past Medical History Medical History (Updated
[2022-11-25 11:51] LABS: Glucose Point of Care 157 mg/dl (65-105)
[2022-11-25] MEDS: SOD HYPOCHLORITE 1/4 STRENGTH 473 ML 1 APPLIC TOPICAL ×2 (12:35→21:52)
[2022-11-25 13:17] LABS: Vancomycin Random 15.4 ug/mL (10-20)
--- NOTE | 2022-11-25 13:30 | PM.CNOR ---
Assessment and Plan Assessment and plan (1) Osteomyelitis of foot, right, acute: Code(s): M86.171 - Other acute osteomyelitis, right ankle and foot Status: Acute Assessment and Plan: Chronic right foot ulceration now with osteomyelitis and infection confirmed with MRI. Ongoing wound treatment for the past 3 years. Status post left 1st ray amputation. Left ankle Charcot deformity. Given medical comorbidity recommend transtibial amputation. Patient has declined at this time. No other acute changes left foot. May continue with bracing. Right foot with necrotic, infected tissue. Indicated for immediate debridement. Risks, benefits and alternatives discussed with patient. Informed consent given. After debridement, continue with dressing changes and wound care, IV antibiotics and medical stabilization. Will need eventual definitive debridement versus transmetatarsal amputation. Discussed nonoperative and operative treatment options with the patient. Risks and benefits of each as well as alternatives were reviewed. All of the patient's questions were answered. The risks of surgery reviewed including but not limited to: Neurovascular damage, wound complication, infection, blood clot, pulmonary embolus, stroke, myocardial infarction, and anesthetic risks up to and including . Continued pain and possible dysfunction were explained. Specific risks of the procedure including later recurrence of deformity. No guarantees were offered. If hardware used, discussed risk of failure/ breakage and possible need for removal. If complications occur, the patient understands the need for further treatment, possible further surgery. Patient verbalizes understanding and wishes to proceed. PLAN: Excisional debridement of right foot today. Plan for right foot excision of osteomyelitis and debridement versus transmetatarsal amputation when medically optimized. 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 - Non-pressure chronic ulcer of other part of right foot with necrosis of bone Code(s): E11.621 - Type 2 diabetes mellitus with foot ulcer; L97.509 - Non-pressure chronic ulcer of other part of unspecified foot with unspecified severity Status: Acute (3) Renal osteodystrophy: Code(s): N25.0 - Renal osteodystrophy Status: Acute (4) End stage renal disease: Code(s): N18.6 - End stage renal disease Status: Chronic (5) Insulin dependent type 2 diabetes mellitus: Code(s): E11.9 - Type 2 diabetes mellitus without complications; Z79.4 - superintendent container terminal (current) use of insulin Status: Chronic History of Present Illness HPI Consult date: 11/25/22 Requesting physician: Rosa Vela MD Chief complaint: Sepsis, wound infection Narrative: 57-year-old with history of diabetes, neuropathy, kidney failure on dialysis, arterial disease with chronic right foot ulcerations admitted through the emergency room yesterday for infection. Review of Systems Review of Systems: All systems reviewed & are unremarkable except as noted in HPI and below Constitutional: Constitutional: Reports no additional constitutional complaints Eyes: Eyes: Reports no additional eye complaints ENT: Reports system reviewed and no additional complaints, except as documented and Reports Normal hearing present Cardiovascular: Cardiovascular: Reports no additional cardiovascular complaints Respiratory: Respiratory: Reports no additional respiratory complaints and Reports no additional respiratory complaints Gastrointestinal: Gastrointestinal: Reports no additional gastrointestinal complaints Musculoskeletal: Musculoskeletal: Reports no additional musculoskeletal complaints Integumentary/Breasts:
--- NOTE | 2022-11-25 13:40 | P.OP_ITS ---
Procedure Note - Detailed Date of Procedure 11/25/22 Pre-op Diagnosis Sepsis, wound infection Post-op Diagnosis Same Procedure Performed Excisional debridement of right foot diabetic ulcers including bone x2 Surgeon Jacinto Whitaker MD Design Engineering Specialist Diana Ortiz R.N. Anesthesia None Indications 57-year-old with diabetes and neuropathy with infected ulcers right foot. Necrotic tissue and exposure bone requiring debridement. Description of Procedure Informed consent given by patient. Patient identified and operative extremity marked. Right foot prepped with alcohol prep solution. 11 blade knife used to debride and sharply excise the right lateral foot ulcer which measured 2 x 3 cm. Skin, muscle and bone debrided. Tissue passed off. Wound irrigated. 11 blade knife used to sharply excise skin, subcutaneous tissue, muscle and bone from the plantar medial ulcer which measured 3 x 3 cm. Wound irrigated. Sterile dressing applied. Estimated Blood Loss 1 Tourniquet Time 0 Urine Output 225 Drains No Packing Yes Pathology None sent Complications None Condition Stable Disposition Floor [facility] Billing Surgery - Charge Forward: Surgery Billing ([id number])
[2022-11-25 14:00] VITALS: BP 170/102; PULSE 99; RESP 16; TEMP 36.4; O2SAT 100
--- NOTE | 2022-11-25 14:13 | PM.IMPN ---
Progress Note: A&P Assessment and Plan (1) Sepsis: Code(s): A41.9 - Sepsis, unspecified organism Status: Acute Assessment and Plan: Patient had a fever of 102. His blood pressure is elevated 148/114. He has a white count of 12.6. His ESR is 121. His CRP is 15.7. XR foot showed plantar soft tissue ulceration of the distal foot. Without acute osseous abnormality. Started on cefepime, vancomycin, and Flagyl. Blood and wound and urine cultures are pending Tailor antibiotics to culture It is suspected that the source of infection is his wound. Fluid is being collected from peritoneal dialysis catheter for culture Orthopedics consulted MRI showed osteomyelitis of the fifth metatarsal head, fifth proximal phalanx, distal phalanx of the fourth digit, distal tuft and distal phalanx of the great toe. Septic arthritis of fifth MTP. Rupture of the flexor hallucis longus tendon. Patient underwent debridement of the right foot 11/25/22. Wound care consulted. (2) End stage renal disease: Code(s): N18.6 - End stage renal disease Status: Chronic Assessment and Plan: Nephrology has been consulted. the patient has peritoneal dialysis. Continue with Renvela (3) Diabetic foot ulcer: Code(s): E11.621 - Type 2 diabetes mellitus with foot ulcer; L97.509 - Non-pressure chronic ulcer of other part of unspecified foot with unspecified severity Status: Acute Assessment and Plan: the patient is no longer taking anything for diabetes. However he has a chronic right foot ulcer . He has been treated outpatient for a chronic plantar surface ulcer. The patient stated that the ulcer has been shrinking. Now and has a malodorous smell. The patient was started on cefepime, vancomycin, and Flagyl. Blood and wound cultures are pending Titrate according to cultures. A1C 5.1 The patient is no longer taking any medication for his diabetes (4) Essential hypertension: Code(s): I10 - Essential (primary) hypertension Status: Acute Assessment and Plan: p.r.n. hydralazine resume lisinopril Subjective Date/time seen: 11/25/22 14:13 Interval history: Patient doing well resting in bed. And postop right foot debridement. Patient has no pain and no complaints at this time. Patient denies headache, chest pain, shortness a breath, nausea, vomiting and fever. Patient's is in the room and has given me given permission to discuss his care freely in front of her. Review of Systems Review of Systems: All systems reviewed & are unremarkable except as noted in HPI and below Exam Narrative: GENERAL: Comfortable, no acute distress HENMT: moist mucous membranes EYES: EOM intact b/l NECK: no lymphadenopathy RESPIRATORY: clear to auscultation CARDIO: Irregular rhythm, rate controlled GI: soft, nontender, bowel sounds present SKIN: no rashes, without jaundice EXTREMITIES: Left foot deformity, right foot bandaged Objective Data Vital Signs Vital Signs: Vital Signs - 24 hr 11/24/22 15:07 11/24/22 14:51 11/24/22 15:00 Temperature Pulse Rate 112 H 119 H 115 H Respiratory Rate 25 H 24 H Blood Pressure Pulse Oximetry 97 94 Oxygen Delivery 11/24/22 15:15 11/24/22 15:32 11/24/22 15:47 Temperature Pulse Rate 110 H 112 H 114 H Respiratory Rate 35 H 13 19 Blood Pressure Pulse Oximetry Oxygen Delivery 11/24/22 16:00 11/24/22 16:01 11/24/22 16:15 Temperature Pulse Rate 111 H 108 H 109 H Respiratory Rate 30 H 18 33 H Blood Pressure 179/107 H Pulse Oximetry 95 Oxygen Delivery 11/24/22 16:30 11/24/22 16:45 11/24/22 17:00 Temperature Pulse Rate 102 H 98 103 H Respiratory Rate 27 H 25 H 28 H Blood Pressure Pulse Oximetry 93 95 95 Oxygen Delivery 11/24/22 17:15 11/24/22 17:30 11/24/22 17:45 Temperature Pulse Rate 108 H 105 H 105 H Respiratory Rate 16 23 H 22 H Blo
[2022-11-25 19:52] VITALS: BP 177/112; PULSE 94; RESP 24; TEMP 36.7
[2022-11-25 22:00] VITALS: BP 181/90; PULSE 113; RESP 20; TEMP 36.8; O2SAT 99
[2022-11-26] MEDS: metroNIDAZOLE 500 MG/ISO 100ML 500 MG/100 ML BAG 100 MG IVPB ×3 (00:46→16:18)
[2022-11-26 05:04] VITALS: BP 149/102; PULSE 106; RESP 16; TEMP 36.6; O2SAT 99
[2022-11-26 06:01] LABS: Basophils Absolute Auto 0.1 K/mm3 (0.0-0.1); Basophils Percent Auto 0.6 % (0.2-1.2); Eosinophils Absolute Auto 0.1 K/mm3 (0-0.3); Eosinophils Percent Auto 0.5 % (0-4.4); Hematocrit 32.2 % (42.0-52.0); Hemoglobin 10.3 g/dL (14.0-18.0); Immature Granulocyte Absolute 0.07 K/mm3 (0.00-0.031); Immature Granulocyte Percent A 0.6 % (0-0.5); Lymphocytes Percent Auto 12.8 % (18.3-44.2); Mean Corpuscular Hemoglobin 29.7 pg (26-34); Mean Corpuscular Volume 92.8 fl (80-100); Mean Platelet Volume 9.4 fl (7.4-10.4); Monocytes Absolute Auto 1.2 K/mm3 (0.1-0.6); Neutrophils Absolute Auto 8.2 K/mm3 (1.3-6.7); Neutrophils Percent Auto 74.5 % (45.5-73.1); Platelet Count Result 246 k/mm3 (150-375); Red Blood Count 3.47 M/mm3 (4.6-6.20); Red Cell Distribution Width 13.8 % (11.5-14.5)
[2022-11-26 06:04] LABS: Lactic Acid Reflex 1.1 mmol/L (0.7-2.0)
[2022-11-26 06:06] LABS: Alanine Aminotransferase 12 U/L (6-50); Albumin Level 3.1 g/dL (3.5-5.1); Alkaline Phosphatase 153 U/L (38-126); Anion Gap 9 mmol/L (8-16); Aspartate Amino Transferase 12 U/L (17-59); Bilirubin,Total 0.8 mg/dL (0.2-1.3); Blood Urea Nitrogen 36 mg/dL (9-20); Calcium 9.7 mg/dL (8.4-10.2); Carbon Dioxide 26 mmol/L (22-30); Chloride 96 mmol/L (98-107); Estimated CRCL calculation 9 ml/min; Estimated Glomerular Filt Rate 6; Glucose 145 mg/dL (65-110); Magnesium 1.9 mg/dL (1.6-2.3); Phosphorus 6.6 mg/dL (2.5-4.5); Potassium 3.6 mmol/L (3.4-5.0); Sodium 131 mmol/L (137-145)
[2022-11-26 06:18] LABS: CRP 16.8 mg/dL (<1.0)
[2022-11-26 06:51] VITALS: BP 149/102; PULSE 106; RESP 16; TEMP 36.6
[2022-11-26 08:35] LABS: Glucose Point of Care 97 mg/dl (65-105)
[2022-11-26] MEDS: GABAPENTIN 300 MG CAPSULE 900 MG PO ×2 (09:05→21:16)
[2022-11-26] MEDS: VENLAFAXINE HCL 25 MG TABLET BY MOUTH ×2 (09:05→21:16)
[2022-11-26] MEDS: ASPIRIN 81 MG CHEWABLE TABLET PO (09:05)
[2022-11-26] MEDS: VENLAFAXINE HCL 75 MG TABLET BY MOUTH ×2 (09:05→21:16)
[2022-11-26] MEDS: SOD HYPOCHLORITE 1/4 STRENGTH 473 ML 1 APPLIC TOPICAL ×2 (09:06→21:17)
[2022-11-26] MEDS: lisinopriL 10 MG TABLET PO (09:06)
[2022-11-26] MEDS: FAMOTIDINE 20 MG TABLET 40 MG PO ×2 (09:06→21:17)
[2022-11-26] MEDS: SEVELAMER CARBONATE 800 MG TABLET 1600 MG PO ×3 (09:06→16:18)
[2022-11-26 09:50] VITALS: O2SAT 95
--- NOTE | 2022-11-26 11:41 | PM.IMPN ---
Progress Note: A&P Assessment and Plan (1) Sepsis: Code(s): A41.9 - Sepsis, unspecified organism Status: Acute Assessment and Plan: Patient had a fever of 102. His blood pressure is elevated 148/114. He has a white count of 12.6. His ESR is 121. His CRP is 15.7. XR foot showed plantar soft tissue ulceration of the distal foot. Without acute osseous abnormality. Started on cefepime, vancomycin, and Flagyl. Blood and wound and urine cultures no growth to date Tailor antibiotics to culture It is suspected that the source of infection is his wound. Fluid is being collected from peritoneal dialysis catheter for culture Orthopedics consulted and following patient MRI showed osteomyelitis of the fifth metatarsal head, fifth proximal phalanx, distal phalanx of the fourth digit, distal tuft and distal phalanx of the great toe. Septic arthritis of fifth MTP. Rupture of the flexor hallucis longus tendon. Patient underwent debridement of the right foot 11/25/22. Wound care consulted. (2) End stage renal disease: Code(s): N18.6 - End stage renal disease Status: Chronic Assessment and Plan: Nephrology has been consulted. the patient has peritoneal dialysis. Continue with Renvela (3) Diabetic foot ulcer: Code(s): E11.621 - Type 2 diabetes mellitus with foot ulcer; L97.509 - Non-pressure chronic ulcer of other part of unspecified foot with unspecified severity Status: Acute Assessment and Plan: the patient is no longer taking anything for diabetes. However he has a chronic right foot ulcer. He has been treated outpatient for a chronic plantar surface ulcer. The patient stated that the ulcer has been shrinking. Malodorous smell on presentation. The patient was started on cefepime, vancomycin, and Flagyl. Blood and wound cultures no growth to date Titrate according to cultures. A1C 5.1 The patient is no longer taking any medication for his diabetes Patient states that he has had peripheral neuropathy since he was in his 20s and has had it long before he was diagnosed with diabetes. Patient sees neurologist for his peripheral neuropathy. (4) Essential hypertension: Code(s): I10 - Essential (primary) hypertension Status: Acute Assessment and Plan: p.r.n. hydralazine resume lisinopril Subjective Date/time seen: 11/26/22 11:41 Interval history: Patient resting in bed comfortably all being interviewed. Patient has no new complaints. Patient does not have any feeling in his extremities thus does not have any pain. Patient denies fevers, headache, dizziness, chest pain, shortness a breath, nausea vomiting. Review of Systems Review of Systems: All systems reviewed & are unremarkable except as noted in HPI and below Exam Narrative: GENERAL: Comfortable, no acute distress HENMT: moist mucous membranes EYES: EOM intact b/l NECK: no lymphadenopathy RESPIRATORY: clear to auscultation CARDIO: Irregular rhythm, rate controlled GI: soft, nontender, bowel sounds present SKIN: no rashes, without jaundice EXTREMITIES: Left foot deformity, right foot bandaged Objective Data Vital Signs Vital Signs: Vital Signs - 24 hr 11/25/22 14:00 11/25/22 19:52 11/25/22 20:00 Temperature 97.6 F 98.0 F Pulse Rate 99 94 Respiratory Rate 16 24 H Blood Pressure 170/102 H 177/112 H Pulse Oximetry 100 Oxygen Delivery Room Air Room Air 11/25/22 22:00 11/26/22 05:04 11/26/22 06:51 Temperature 98.2 F 97.8 F 97.8 F Pulse Rate 113 H 106 H 106 H Respiratory Rate 20 16 16 Blood Pressure 181/90 H 149/102 H 149/102 H Pulse Oximetry 99 99 Oxygen Delivery 11/26/22 08:00 11/26/22 09:50 Temperature Pulse Rate Respiratory Rate Blood Pressure Pulse Oximetry 95 Oxygen Delivery Room Air Room Air Intake/Output Intake/Output: Intake & Output 11/23/22 11/24/22 11/25/22 11/26/22 23:59 2
--- NOTE | 2022-11-26 12:35 | P.PNNP_ITS ---
Progress Note: A&P Assessment and Plan (1) End stage renal disease: Code(s): N18.6 - End stage renal disease Status: Chronic Assessment and Plan: * continue nightly CCPD while hospitalized * follow electrolytes, volume status, and clearance (2) Sepsis: Code(s): A41.9 - Sepsis, unspecified organism Status: Acute Assessment and Plan: * as noted by fever, leukocytosis, and elevated ESR/CRP * blood and would cultures pending * on IV antibiotic thera * source suspected to be #3 * follow hemodynamics (3) Diabetic foot ulcer: Code(s): E11.621 - Type 2 diabetes mellitus with foot ulcer; L97.509 - Non-pressure chronic ulcer of other part of unspecified foot with unspecified severity Status: Acute Assessment and Plan: * suspected to be source for #2 * Orthopedic recommendations noted * MRI results noted * glycemic control if needed * local wound care * noted plans for surgical/operative intervention on Monday (4) Essential hypertension: Code(s): I10 - Essential (primary) hypertension Status: Acute Assessment and Plan: * erratically erratic by history and outpatient records * follow trend of hemodynamics Will continue to follow. Subjective Date/time seen: 11/26/22 12:35 Tolerated peritoneal dialysis treatment overnight without any issues or problems; s/p bedside debridement by Orthopedic surgery yesterday afternoon and tolerated this reasonably well; remains in good spirits and denies any other events or concerns. Exam Narrative: General: WD/WN male in NAD Heart: normal S1 and S2; no rub Lungs: coarse breath sounds Abdomen: soft, nontender, nondistended, positive bowel sounds Extremities: no cyanosis or clubbing; left foot deformity noted Skin: dressings on right foot noted Objective Data Vital Signs Vital Signs: Vital Signs Temp Pulse Resp BP Pulse Ox O2 Del Method 11/26/22 09:50 95 Room Air 11/26/22 08:00 Room Air 11/26/22 06:51 97.8 F 106 H 16 149/102 H 11/26/22 05:04 97.8 F 106 H 16 149/102 H 99 11/25/22 22:00 98.2 F 113 H 20 181/90 H 99 11/25/22 20:00 Room Air 11/25/22 19:52 98.0 F 94 24 H 177/112 H Room Air Intake/Output Intake/Output: Intake & Output 11/23/22 11/24/22 11/25/22 11/26/22 23:59 23:59 23:59 23:59 Intake Total 1400 3470 1360 Output Total 2810 2145 Balance 1400 660 -342 Meds/Results Medications: Active Medications Generic Name Dose Route Start Last Admin Trade Name Freq PRN Reason Stop Dose Admin Acetaminophen 650 mg 11/24/22 17:54 Acetaminophen 325 Mg Tablet PO Q4H PRN Mild Pain (1-3) or Fever Aspirin 81 mg 11/25/22 09:00 11/26/22 09:05 Aspirin 81 Mg Chewable Tablet PO 81 mg DAILY ALEX Administration Calcitriol 0.5 mcg 11/25/22 09:00 11/25/22 08:15 Calcitriol 0.25 Mcg Capsule PO 0.5 mcg [id number] ALEX Administration Famotidine 40 mg 11/24/22 23:05 11/26/22 09:06 Famotidine 20 Mg Tablet PO 40 mg Q12HR ALEX Administration Gabapentin 900 mg 11/24/22 23:05 11/26/22 09:05
--- NOTE | 2022-11-26 12:35 | PM.PNNEP ---
Progress Note: A&P Assessment and Plan (1) End stage renal disease: Code(s): N18.6 - End stage renal disease Status: Chronic Assessment and Plan: continue nightly CCPD while hospitalized follow electrolytes, volume status, and clearance (2) Sepsis: Code(s): A41.9 - Sepsis, unspecified organism Status: Acute Assessment and Plan: as noted by fever, leukocytosis, and elevated ESR/CRP blood and would cultures pending on IV antibiotic thera source suspected to be #3 follow hemodynamics (3) Diabetic foot ulcer: Code(s): E11.621 - Type 2 diabetes mellitus with foot ulcer; L97.509 - Non-pressure chronic ulcer of other part of unspecified foot with unspecified severity Status: Acute Assessment and Plan: suspected to be source for #2 Orthopedic recommendations noted MRI results noted glycemic control if needed local wound care noted plans for surgical/operative intervention on Monday (4) Essential hypertension: Code(s): I10 - Essential (primary) hypertension Status: Acute Assessment and Plan: erratically erratic by history and outpatient records follow trend of hemodynamics Will continue to follow. Subjective Date/time seen: 11/26/22 12:35 Tolerated peritoneal dialysis treatment overnight without any issues or problems; s/p bedside debridement by Orthopedic surgery yesterday afternoon and tolerated this reasonably well; remains in good spirits and denies any other events or concerns. Exam Narrative: General: WD/WN male in NAD Heart: normal S1 and S2; no rub Lungs: coarse breath sounds Abdomen: soft, nontender, nondistended, positive bowel sounds Extremities: no cyanosis or clubbing; left foot deformity noted Skin: dressings on right foot noted Objective Data Vital Signs Vital Signs: Vital Signs Temp Pulse Resp BP Pulse Ox O2 Del Method 11/26/22 09:50 95 Room Air 11/26/22 08:00 Room Air 11/26/22 06:51 97.8 F 106 H 16 149/102 H 11/26/22 05:04 97.8 F 106 H 16 149/102 H 99 11/25/22 22:00 98.2 F 113 H 20 181/90 H 99 11/25/22 20:00 Room Air 11/25/22 19:52 98.0 F 94 24 H 177/112 H Room Air Intake/Output Intake/Output: Intake & Output 02/0111/24/22 11/25/22 11/26/22 23:59 23:59 23:59 23:59 Intake Total 1400 3470 1360 Output Total 9821 2145 Balance 1400 660 -235 Meds/Results Medications: Active Medications Generic Name Dose Route Start Last Admin Trade Name Freq PRN Reason Stop Dose Admin Acetaminophen 650 mg 11/24/22 17:54 Acetaminophen 325 Mg Tablet PO Q4H PRN Mild Pain (1-3) or Fever Aspirin 81 mg 11/25/22 09:00 11/26/22 09:05 Aspirin 81 Mg Chewable Tablet PO 81 mg DAILY ALEX Administration Calcitriol 0.5 mcg 11/25/22 09:00 11/25/22 08:15 Calcitriol 0.25 Mcg Capsule PO 0.5 mcg [id number] ALEX Administration Famotidine 40 mg 11/24/22 23:05 11/26/22 09:06 Famotidine 20 Mg Tablet PO 40 mg Q12HR ALEX Administration Gabapentin 900 mg 11/24/22 23:05 11/26/22 09:05 Gabapentin 300 Mg Capsule PO 900 mg Q12HR ALEX Administration Hydralazine HCl 10 mg 11/25/22 22:46 11/25/22 23:00 Hydralazine Hcl 20 Mg/Ml Vial IV PUSH 10 mg Q4H PRN Administration Blood Pressure - High Cefepime HCl 1 gm in 50 mls @ 100 mls/hr 11/25/22 18:00 11/25/22 18:45 Maxipime 1 Gm/D5w 50 Ml IVPB Infused Q24H ALEX Infusion Metronidazole 500 mg in 100 mls @ 100 mls/hr 11/25/22 00:00 11/26/22 10:08 Flagyl 500 Mg/Iso Soln 100 Ml IVPB Infused Q8H ALEX Infusion Vancomycin HCl 1,250 mg in 250 mls @ 200 mls/hr 11/24/22 21:10 Vancomycin 1,250 Mg/D5w 250 Ml IVPB PRN PRN Kinetics Consult Lisinopril 10 mg 11/25/22 09:00 11/26/22 09:06 Lisinopril 10 Mg Tablet PO 10 mg DAILY ALEX Administration Ondansetron HCl 4 mg 11/24/22 17:54 Ondansetron Inj 4
[2022-11-26 14:00] VITALS: BP 158/105; PULSE 98; RESP 16; TEMP 36.1; O2SAT 100
[2022-11-26 21:52] VITALS: BP 172/108; PULSE 95; RESP 16; TEMP 36.4; O2SAT 99
[2022-11-26] MEDS: hydrALAZINE HCL 20 MG/ML VIAL 10 MG IV PUSH (23:05)
[2022-11-27] MEDS: metroNIDAZOLE 500 MG/ISO 100ML 500 MG/100 ML BAG 100 MG IVPB ×3 (00:55→16:13)
[2022-11-27 05:32] VITALS: BP 150/96; PULSE 84; RESP 18; TEMP 36.6; O2SAT 98
[2022-11-27 06:47] VITALS: BP 150/96; PULSE 84; RESP 18; TEMP 36.6
[2022-11-27 08:06] LABS: Basophils Absolute Auto 0.1 K/mm3 (0.0-0.1); Basophils Percent Auto 0.5 % (0.2-1.2); Eosinophils Absolute Auto 0.2 K/mm3 (0-0.3); Eosinophils Percent Auto 1.4 % (0-4.4); Hematocrit 31.9 % (42.0-52.0); Hemoglobin 10.1 g/dL (14.0-18.0); Immature Granulocyte Absolute 0.04 K/mm3 (0.00-0.031); Immature Granulocyte Percent A 0.4 % (0-0.5); Lymphocytes Absolute Auto 1.45 K/mm3 (0.9-3.2); Mean Corpuscular HGB Conc 31.7 g/dl (32-36); Mean Corpuscular Hemoglobin 28.5 pg (26-34); Mean Corpuscular Volume 90.1 fl (80-100); Mean Platelet Volume 9.8 fl (7.4-10.4); Monocytes Percent Auto 9.3 % (2.6-8.5); Neutrophils Absolute Auto 8.4 K/mm3 (1.3-6.7); Neutrophils Percent Auto 75.4 % (45.5-73.1); Platelet Count Result 256 k/mm3 (150-375); Red Blood Count 3.54 M/mm3 (4.6-6.20); Red Cell Distribution Width 13.6 % (11.5-14.5); White Blood Count 11.2 K/mm3 (4.5-10.0)
[2022-11-27] MEDS: GABAPENTIN 300 MG CAPSULE 900 MG PO ×2 (08:13→19:45)
[2022-11-27] MEDS: VENLAFAXINE HCL 25 MG TABLET BY MOUTH ×2 (08:13→19:46)
[2022-11-27] MEDS: VENLAFAXINE HCL 75 MG TABLET BY MOUTH ×2 (08:13→19:46)
--- NOTE | 2022-11-27 08:13 | PM.PNORT ---
Progress Note: A&P Assessment and Plan (1) Osteomyelitis of foot, right, acute: Code(s): M86.171 - Other acute osteomyelitis, right ankle and foot Status: Acute Assessment and Plan: MRI reviewed with patient. Tx options reviewed. Cxs pending. Plan debridement, most likely TMA tomorrow. NPO midnight. 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 Incision site well healed. Severe ankle deformity with large bony prominence of medial malleolus. No open wounds. Decreased sensation. Pedal pulses Not palpable. Right foot with wound on the plantar aspect of the 1st MTP joint which measures 3x2x0.5cm with tendon exposure, otherwise 100% red/pink wound bed. No malodor. Lateral foot wound over the 5th metatarsal head measures 2x2x0.5cm, 100% necrotic tissue. Malodor. Purulence. Bone and tendon exposure. Surrounding tissue with mild erythema. Pedal pulse not palpable. Decreased sensation at baseline. Psych: Mental Status: mental status grossly normal Affect: normal affect Objective Data Vital Signs Vital Signs: Vital Signs - 24 hr 11/26/22 09:50 11/26/22 14:00 11/26/22 20:00 Temperature 96.9 F L Pulse Rate 98 Respiratory Rate 16 Blood Pressure 158/105 H Pulse Oximetry 95 100 Oxygen Delivery Room Air Room Air 11/26/22 21:52 11/27/22 05:32 11/27/22 06:47 Temperature 97.6 F 97.9 F 97.9 F Pulse Rate 95 84 84 Respiratory Rate 16 18 18 Blood Pressure 172/108 H 150/96 H 150/96 H Pulse Oximetry 99 98 Oxygen Delivery Intake/Output Intake/Output: Intake & Output 11/24/22 11/25/22 11/26/22 11/27/22 23:59 23:59 23:59 23:59 Intake Total 1400 3470 1910 200 Output Total 2810 0620 481 Balance 1400 856 -684 -516 Meds/Results Medications: Active Medications Generic Name Dose Route Start Last Admin Trade Name Freq PRN Reason Stop Dose Admin Acetaminophen 650 mg 11/24/22 17:54 Acetaminophen 325 Mg Tablet PO Q4H PRN Mild Pain (1-3) or Fever Aspirin 81 mg 11/25/22 09:00 11/26/22 09:05 Aspirin 81 Mg Chewable Tablet PO 81 mg DAILY ALEX Administration Calcitriol 0.5 mcg 11/25/22 09:00 11/25/22 08:15 Calcitriol 0.25 Mcg Capsule PO 0.5 mcg [id number]@0900 ALEX Administration Famotidine 40 mg 11/24/22 23:05 11/26/22 21:17 Famotidine 20 Mg Tablet PO 40 mg Q12HR ALEX Administration Gabapentin 900 mg 11/24/22 23:05 11/26/22 21:16 Gabapentin 300 Mg Capsule PO 900 mg Q12HR ALEX Administration Hydralazine HCl 10 mg 11/25/22 22:46 11/26/22 23:05 Hydralazine Hcl 20 Mg/Ml Vial IV PUSH 10 mg Q4H PRN Administration Blood Pressure - High Cefepime HCl 1 gm in 50 mls @ 100 mls/hr 11/25/22 18:00 11/26/22 17:30 Maxipime 1 Gm/D5w 50 Ml IVPB Infused Q24H ALEX Infusion Metronidazole 500 mg in 100 mls @ 100 mls/hr 11/25/22 00:00 11/27/22 01:55 Flagyl 500 Mg/Iso Soln 100 Ml IVPB Infused Q8H ALEX Infusion Vancomycin HCl 1,250 mg in 250 mls @ 200 mls/hr 11/24/22 21:10 Vancomycin 1,250 Mg/D5w 250 Ml IVPB PRN PRN
[2022-11-27] MEDS: lisinopriL 10 MG TABLET PO (08:14)
[2022-11-27] MEDS: FAMOTIDINE 20 MG TABLET 40 MG PO ×2 (08:14→19:46)
[2022-11-27] MEDS: SEVELAMER CARBONATE 800 MG TABLET 1600 MG PO ×3 (08:14→16:12)
[2022-11-27] MEDS: SOD HYPOCHLORITE 1/4 STRENGTH 473 ML 1 APPLIC TOPICAL ×2 (08:14→19:47)
[2022-11-27] MEDS: ASPIRIN 81 MG CHEWABLE TABLET PO (08:14)
[2022-11-27 08:16] LABS: Alanine Aminotransferase 11 U/L (6-50); Albumin Level 2.8 g/dL (3.5-5.1); Alkaline Phosphatase 118 U/L (38-126); Anion Gap 9 mmol/L (8-16); Aspartate Amino Transferase 13 U/L (17-59); Bilirubin,Total 0.6 mg/dL (0.2-1.3); Blood Urea Nitrogen 36 mg/dL (9-20); Calcium 9.7 mg/dL (8.4-10.2); Carbon Dioxide 25 mmol/L (22-30); Chloride 100 mmol/L (98-107); Estimated CRCL calculation 9 ml/min; Estimated Glomerular Filt Rate 6; Glucose 100 mg/dL (65-110); Potassium 3.7 mmol/L (3.4-5.0); Sodium 134 mmol/L (137-145)
--- NOTE | 2022-11-27 10:50 | P.PNNP_ITS ---
Progress Note: A&P Assessment and Plan (1) End stage renal disease: Code(s): N18.6 - End stage renal disease Status: Chronic Assessment and Plan: * continue nightly CCPD while hospitalized * follow electrolytes, volume status, and clearance (2) Sepsis: Code(s): A41.9 - Sepsis, unspecified organism Status: Acute Assessment and Plan: * as noted by fever, leukocytosis, and elevated ESR/CRP * blood and would cultures pending * on IV antibiotic thera * source suspected to be #3 * follow hemodynamics (3) Diabetic foot ulcer: Code(s): E11.621 - Type 2 diabetes mellitus with foot ulcer; L97.509 - Non-pressure chronic ulcer of other part of unspecified foot with unspecified severity Status: Acute Assessment and Plan: * suspected to be source for #2 * Orthopedic recommendations noted * MRI results noted * local wound care * noted plans for surgical/operative intervention tomorrow (4) Essential hypertension: Code(s): I10 - Essential (primary) hypertension Status: Acute Assessment and Plan: * erratically erratic by history and outpatient records * follow trend of hemodynamics Will continue to follow. Subjective Date/time seen: 11/27/22 10:50 Tolerated peritoneal dialysis treatment overnight without any issues or problems; noted plan for operative intervention tomorrow for his right foot wounds; no other acute issues/concerns to report at this time; overall, feels reasonably well. Exam Narrative: General: WD/WN male in NAD Heart: normal S1 and S2; no rub Lungs: clear anteriorly Abdomen: soft, nontender, nondistended, positive bowel sounds Extremities: no cyanosis or clubbing; left foot deformity present Skin: dressings on right foot noted Objective Data Vital Signs Vital Signs: Vital Signs Temp Pulse Resp BP Pulse Ox O2 Del Method 11/27/22 07:57 Room Air 11/27/22 06:47 97.9 F 84 18 150/96 H 11/27/22 05:32 97.9 F 84 18 150/96 H 98 11/26/22 21:52 97.6 F 95 16 172/108 H 99 11/26/22 20:00 Room Air 11/26/22 14:00 96.9 F L 98 16 158/105 H 100 Intake/Output Intake/Output: Intake & Output 11/24/22 11/25/22 11/26/2211/27/23 23:59 23:59 23:59 23:59 Intake Total 1400 3470 1910 1200 Output Total 0270 5052 781 Balance 1400 660 -195 419 Meds/Results Medications: Active Medications Generic Name Dose Route Start Last Admin Trade Name Freq PRN Reason Stop Dose Admin Acetaminophen 650 mg 11/24/22 17:54 Acetaminophen 325 Mg Tablet PO Q4H PRN Mild Pain (1-3) or Fever Aspirin 81 mg 11/25/22 09:00 11/27/22 08:14 Aspirin 81 Mg Chewable Tablet PO 81 mg DAILY ALEX Administration Calcitriol 0.5 mcg 11/25/22 09:00 11/25/22 08:15 Calcitriol 0.25 Mcg Capsule PO 0.5 mcg [id number]@0900 ALEX Administration Famotidine 40 mg 11/24/22 23:05 11/27/22 08:14 Famotidine 20 Mg Tablet PO 40 mg Q12HR ALEX Administration Gabapentin 900 mg 11/24/22 23:05 11/27/22 08:13 Gabapentin 300 Mg Capsule PO 900 mg Q12HR ALEX Administration Hyd
--- NOTE | 2022-11-27 10:50 | PM.PNNEP ---
Progress Note: A&P Assessment and Plan (1) End stage renal disease: Code(s): N18.6 - End stage renal disease Status: Chronic Assessment and Plan: continue nightly CCPD while hospitalized follow electrolytes, volume status, and clearance (2) Sepsis: Code(s): A41.9 - Sepsis, unspecified organism Status: Acute Assessment and Plan: as noted by fever, leukocytosis, and elevated ESR/CRP blood and would cultures pending on IV antibiotic thera source suspected to be #3 follow hemodynamics (3) Diabetic foot ulcer: Code(s): E11.621 - Type 2 diabetes mellitus with foot ulcer; L97.509 - Non-pressure chronic ulcer of other part of unspecified foot with unspecified severity Status: Acute Assessment and Plan: suspected to be source for #2 Orthopedic recommendations noted MRI results noted local wound care noted plans for surgical/operative intervention tomorrow (4) Essential hypertension: Code(s): I10 - Essential (primary) hypertension Status: Acute Assessment and Plan: erratically erratic by history and outpatient records follow trend of hemodynamics Will continue to follow. Subjective Date/time seen: 11/27/22 10:50 Tolerated peritoneal dialysis treatment overnight without any issues or problems; noted plan for operative intervention tomorrow for his right foot wounds; no other acute issues/concerns to report at this time; overall, feels reasonably well. Exam Narrative: General: WD/WN male in NAD Heart: normal S1 and S2; no rub Lungs: clear anteriorly Abdomen: soft, nontender, nondistended, positive bowel sounds Extremities: no cyanosis or clubbing; left foot deformity present Skin: dressings on right foot noted Objective Data Vital Signs Vital Signs: Vital Signs Temp Pulse Resp BP Pulse Ox O2 Del Method 11/27/22 07:57 Room Air 11/27/22 06:47 97.9 F 84 18 150/96 H 11/27/22 05:32 97.9 F 84 18 150/96 H 98 11/26/22 21:52 97.6 F 95 16 172/108 H 99 11/26/22 20:00 Room Air 11/26/22 14:00 96.9 F L 98 16 158/105 H 100 Intake/Output Intake/Output: Intake & Output 11/24/22 11/25/22 11/26/22 11/27/22 23:59 23:59 23:59 23:59 Intake Total 1400 3470 1910 1200 Output Total 2810 5886 781 Balance 1400 660 -274 525 Meds/Results Medications: Active Medications Generic Name Dose Route Start Last Admin Trade Name Freq PRN Reason Stop Dose Admin Acetaminophen 650 mg 11/24/22 17:54 Acetaminophen 325 Mg Tablet PO Q4H PRN Mild Pain (1-3) or Fever Aspirin 81 mg 11/25/22 09:00 11/27/22 08:14 Aspirin 81 Mg Chewable Tablet PO 81 mg DAILY ALEX Administration Calcitriol 0.5 mcg 11/25/22 09:00 11/25/22 08:15 Calcitriol 0.25 Mcg Capsule PO 0.5 mcg [id number]@0900 ALEX Administration Famotidine 40 mg 11/24/22 23:05 11/27/22 08:14 Famotidine 20 Mg Tablet PO 40 mg Q12HR ALEX Administration Gabapentin 900 mg 11/24/22 23:05 11/27/22 08:13 Gabapentin 300 Mg Capsule PO 900 mg Q12HR ALEX Administration Hydralazine HCl 10 mg 11/25/22 22:46 11/26/22 23:05 Hydralazine Hcl 20 Mg/Ml Vial IV PUSH 10 mg Q4H PRN Administration Blood Pressure - High Cefepime HCl 1 gm in 50 mls @ 100 mls/hr 11/25/22 18:00 11/26/22 17:30 Maxipime 1 Gm/D5w 50 Ml IVPB Infused Q24H ALEX Infusion Metronidazole 500 mg in 100 mls @ 100 mls/hr 11/25/22 00:00 11/27/22 08:13 Flagyl 500 Mg/Iso Soln 100 Ml IVPB 100 mls/hr Q8H ALEX Administration Vancomycin HCl 1,250 mg in 250 mls @ 200 mls/hr 11/24/22 21:10 Vancomycin 1,250 Mg/D5w 250 Ml IVPB PRN PRN Kinetics Consult Lisinopril 10 mg 11/25/22 09:00 11/27/22 08:14 Lisinopril 10 Mg Tablet PO 10 mg DAILY ALEX Administration Ondansetron HCl 4 mg 11/24/22 17:54 Ondansetron Inj 4 Mg/2 Ml Vial IV PUSH Q4H PRN Nausea Sevelamer Carbonat
[2022-11-27 10:56] LABS: Vancomycin Random 22.3 ug/mL (10-20)
--- NOTE | 2022-11-27 13:01 | P.PNIM_ITS ---
Progress Note: A&P Assessment and Plan (1) Sepsis: Code(s): A41.9 - Sepsis, unspecified organism Status: Acute Assessment and Plan: Patient had a fever of 102. His blood pressure is elevated 148/114. He has a white count of 12.6. His ESR is 121. His CRP is 15.7. * XR foot showed plantar soft tissue ulceration of the distal foot. Without acute osseous abnormality. * Started on cefepime, vancomycin, and Flagyl. * Blood and wound and urine cultures no growth to date. * Tailor antibiotics to culture. * It is suspected that the source of infection is his right foot wound. * Fluid is being collected from peritoneal dialysis catheter for culture. * Orthopedics consulted and following patient. * MRI showed osteomyelitis of the fifth metatarsal head, fifth proximal phalanx, distal phalanx of the fourth digit, distal tuft and distal phalanx of the great toe. Septic arthritis of fifth MTP. Rupture of the flexor hallucis longus tendon. * Patient underwent debridement of the right foot 11/25/22. * Wound care consulted. * Debridement scheduled for 11/28/22 (2) End stage renal disease: Code(s): N18.6 - End stage renal disease Status: Chronic Assessment and Plan: Nephrology has been consulted. * the patient has peritoneal dialysis. * Continue with Renvela (3) Diabetic foot ulcer: Code(s): E11.621 - Type 2 diabetes mellitus with foot ulcer; L97.509 - Non-pressure chronic ulcer of other part of unspecified foot with unspecified severity Status: Acute Assessment and Plan: the patient is no longer taking anything for diabetes. However he has a chronic right foot ulcer. He has been treated outpatient for a chronic plantar surface ulcer. The patient stated that the ulcer has been shrinking. Malodorous smell on presentation. * The patient was started on cefepime, vancomycin, and Flagyl. * Blood and wound cultures no growth to date * Titrate according to cultures. * A1C 5.1 * The patient is no longer taking any medication for his diabetes * Patient states that he has had peripheral neuropathy since he was in his 20s and has had it long before he was diagnosed with diabetes. * Patient sees neurologist for his peripheral neuropathy. * Debridement scheduled for 11/28/22 (4) Essential hypertension: Code(s): I10 - Essential (primary) hypertension Status: Acute Assessment and Plan: p.r.n. hydralazine resume lisinopril Time Spent With Patient Time with patient: 25 - 35 minutes Subjective Date/time seen: 11/27/22 13:01 Interval history: Patient resting in bed comfortably. Patient has no new complaints. Denies foot pain, fevers, nausea, vomiting, chest pain, shortness a breath and lower extremity edema. Review of Systems Review of Systems: All systems reviewed & are unremarkable except as noted in HPI and below Exam Narrative: GENERAL: Comfortable, no acute distress HENMT: moist mucous membranes EYES: EOM intact b/l NECK: no lymphadenopathy RESPIRATORY: clear to auscultation CARDIO: Irregular rhythm, rate controlled GI: soft, nontender, bowel sounds present SKIN: no rashes, without jaundice EXTREMITIES: Left foot deformity, right foot bandaged Objective Data Vital Signs Vital Signs: Vital Signs - 24 hr 11/26/22 14:00 11/26/22 20:00 11/26/22 21:52 Temperature 96.9 F L 97.6 F
--- NOTE | 2022-11-27 13:01 | PM.IMPN ---
Progress Note: A&P Assessment and Plan (1) Sepsis: Code(s): A41.9 - Sepsis, unspecified organism Status: Acute Assessment and Plan: Patient had a fever of 102. His blood pressure is elevated 148/114. He has a white count of 12.6. His ESR is 121. His CRP is 15.7. XR foot showed plantar soft tissue ulceration of the distal foot. Without acute osseous abnormality. Started on cefepime, vancomycin, and Flagyl. Blood and wound and urine cultures no growth to date. Tailor antibiotics to culture. It is suspected that the source of infection is his right foot wound. Fluid is being collected from peritoneal dialysis catheter for culture. Orthopedics consulted and following patient. MRI showed osteomyelitis of the fifth metatarsal head, fifth proximal phalanx, distal phalanx of the fourth digit, distal tuft and distal phalanx of the great toe. Septic arthritis of fifth MTP. Rupture of the flexor hallucis longus tendon. Patient underwent debridement of the right foot 11/25/22. Wound care consulted. Debridement scheduled for 11/28/22 (2) End stage renal disease: Code(s): N18.6 - End stage renal disease Status: Chronic Assessment and Plan: Nephrology has been consulted. the patient has peritoneal dialysis. Continue with Renvela (3) Diabetic foot ulcer: Code(s): E11.621 - Type 2 diabetes mellitus with foot ulcer; L97.509 - Non-pressure chronic ulcer of other part of unspecified foot with unspecified severity Status: Acute Assessment and Plan: the patient is no longer taking anything for diabetes. However he has a chronic right foot ulcer. He has been treated outpatient for a chronic plantar surface ulcer. The patient stated that the ulcer has been shrinking. Malodorous smell on presentation. The patient was started on cefepime, vancomycin, and Flagyl. Blood and wound cultures no growth to date Titrate according to cultures. A1C 5.1 The patient is no longer taking any medication for his diabetes Patient states that he has had peripheral neuropathy since he was in his 20s and has had it long before he was diagnosed with diabetes. Patient sees neurologist for his peripheral neuropathy. Debridement scheduled for 11/28/22 (4) Essential hypertension: Code(s): I10 - Essential (primary) hypertension Status: Acute Assessment and Plan: p.r.n. hydralazine resume lisinopril Time Spent With Patient Time with patient: 25 - 35 minutes Subjective Date/time seen: 11/27/22 13:01 Interval history: Patient resting in bed comfortably. Patient has no new complaints. Denies foot pain, fevers, nausea, vomiting, chest pain, shortness a breath and lower extremity edema. Review of Systems Review of Systems: All systems reviewed & are unremarkable except as noted in HPI and below Exam Narrative: GENERAL: Comfortable, no acute distress HENMT: moist mucous membranes EYES: EOM intact b/l NECK: no lymphadenopathy RESPIRATORY: clear to auscultation CARDIO: Irregular rhythm, rate controlled GI: soft, nontender, bowel sounds present SKIN: no rashes, without jaundice EXTREMITIES: Left foot deformity, right foot bandaged Objective Data Vital Signs Vital Signs: Vital Signs - 24 hr 11/26/22 14:00 11/26/22 20:00 11/26/22 21:52 Temperature 96.9 F L 97.6 F Pulse Rate 98 95 Respiratory Rate 16 16 Blood Pressure 158/105 H 172/108 H Pulse Oximetry 100 99 Oxygen Delivery Room Air 11/27/22 05:32 11/27/22 06:47 11/27/22 07:57 Temperature 97.9 F 97.9 F Pulse Rate 84 84 Respiratory Rate 18 18 Blood Pressure 150/96 H 150/96 H Pulse Oximetry 98 Oxygen Delivery Room Air Intake/Output Intake/Output: Intake & Output 11/24/22 11/25/22 11/26/22 11/27/22 23:59 23:59 23:59 23:59 Intake Total 1400 3470 1910 1300 Output Total 7520 0235 781 Balance 1400 660 -495 757 Meds/Results Medications: Ac
[2022-11-27 14:00] VITALS: BP 162/106; PULSE 90; RESP 18; TEMP 36.3; O2SAT 100
[2022-11-27] MEDS: hydrALAZINE HCL 20 MG/ML VIAL 10 MG IV PUSH (19:46)
[2022-11-27 20:03] VITALS: BP 162/106; PULSE 90; RESP 18; TEMP 36.3
[2022-11-27 20:53] VITALS: BP 185/111; PULSE 97; RESP 14; TEMP 36.8; O2SAT 98
[2022-11-28] VITALS (18 sets, daily range): BP systolic 118–217; BP diastolic 73–116; PULSE 80–100; RESP 13–22; TEMP 36–37.2; O2SAT 94–100
[2022-11-28] MEDS: metroNIDAZOLE 500 MG/ISO 100ML 500 MG/100 ML BAG 100 MG IVPB ×4 (00:39→23:46)
[2022-11-28] MEDS: hydrALAZINE HCL 20 MG/ML VIAL 10 MG IV PUSH ×2 (04:59→20:08)
[2022-11-28 06:35] LABS: Basophils Absolute Auto 0.1 K/mm3 (0.0-0.1); Basophils Percent Auto 0.6 % (0.2-1.2); Eosinophils Absolute Auto 0.2 K/mm3 (0-0.3); Eosinophils Percent Auto 1.8 % (0-4.4); Hemoglobin 10.6 g/dL (14.0-18.0); Immature Granulocyte Absolute 0.05 K/mm3 (0.00-0.031); Immature Granulocyte Percent A 0.6 % (0-0.5); Lymphocytes Absolute Auto 1.56 K/mm3 (0.9-3.2); Lymphocytes Percent Auto 17.3 % (18.3-44.2); Mean Corpuscular HGB Conc 32.1 g/dl (32-36); Mean Corpuscular Hemoglobin 29.8 pg (26-34); Mean Corpuscular Volume 92.7 fl (80-100); Mean Platelet Volume 9.6 fl (7.4-10.4); Monocytes Absolute Auto 0.8 K/mm3 (0.1-0.6); Monocytes Percent Auto 9.2 % (2.6-8.5); Neutrophils Absolute Auto 6.4 K/mm3 (1.3-6.7); Neutrophils Percent Auto 70.5 % (45.5-73.1); Platelet Count Result 248 k/mm3 (150-375); Red Blood Count 3.56 M/mm3 (4.6-6.20); Red Cell Distribution Width 13.4 % (11.5-14.5)
[2022-11-28 06:52] LABS: Alanine Aminotransferase 11 U/L (6-50); Albumin Level 3.1 g/dL (3.5-5.1); Alkaline Phosphatase 104 U/L (38-126); Anion Gap 9 mmol/L (8-16); Aspartate Amino Transferase 17 U/L (17-59); Bilirubin,Total 0.6 mg/dL (0.2-1.3); Blood Urea Nitrogen 35 mg/dL (9-20); Carbon Dioxide 26 mmol/L (22-30); Chloride 97 mmol/L (98-107); Estimated CRCL calculation 9 ml/min; Estimated Glomerular Filt Rate 6; Glucose 109 mg/dL (65-110); Potassium 3.4 mmol/L (3.4-5.0); Sodium 132 mmol/L (137-145)
--- NOTE | 2022-11-28 07:21 | WPDHPUPDATE1 ---
History and Physical Update Update Date/Time: 11/28/22 07:21 History and Physical has been reviewed, including an updated exam of the patient. There are NO changes in the patient's condition. Risks, benefits, and alternatives have been discussed and questions answered. Patient agrees to proceed with procedure.
[2022-11-28] MEDS: SOD HYPOCHLORITE 1/4 STRENGTH 473 ML 1 APPLIC TOPICAL (08:12)
[2022-11-28] MEDS: lisinopriL 10 MG TABLET PO (08:13)
[2022-11-28] MEDS: LACTATED RINGERS 1,000 ML 30 ML IV CONT (09:05)
--- NOTE | 2022-11-28 09:22 | WPDANESEPPF ---
Anes - Initial Pre Proc Eval Procedure: Operation Date: 11/28/22 15:00 Proposed Procedures p Debridement Diabetic Foot Osteomyelitis Versus Possible Transmetatarsal Amputation Right Foot - Jacinto Whitaker MD Date/Time: 11/28/22 09:22 Surgeon: Cuauhtemoc Jj MD Pre Op Diagnosis: Sepsis, wound infection Patient Data Age: 57 Gender: M Height: 1.78 m Weight: 88.6 kg Last Vital Signs Temp 36.7 C 11/28/22 09:11 Pulse 100 11/28/22 09:11 Resp 18 11/28/22 09:11 BP 161/116 H 11/28/22 09:11 Pulse Ox 95 11/28/22 09:11 O2 Del Method Room Air 11/28/22 09:11 Allergies Allergy/AdvReac Type Severity Reaction Status Date / Time No Known Allergies Allergy Verified 11/24/22 14:50 Home Medications Medication Instructions Recorded Confirmed Type calcitriol 0.5 mcg capsule 0.5 mcg PO QMWF 10/20/21 11/24/22 History famotidine 40 mg tablet 40 mg PO Q12H 10/20/21 11/24/22 History gabapentin 300 mg capsule 900 mg PO Q12H 10/20/21 11/24/22 History venlafaxine 100 mg tablet 100 mg PO Q12H 10/20/21 11/24/22 History aspirin 81 mg chewable tablet 81 mg PO DAILY #90 tabs 09/06/22 11/24/22 Rx lisinopril 10 mg tablet 10 mg PO DAILY 09/17/22 11/24/22 History sevelamer carbonate 800 mg tablet 1,600 mg PO TIDWM 11/24/22 11/24/22 History (Renvela) Laboratory Tests 11/27/22 11/28/22 11/28/22 10:17 05:39 05:39 WBC 9.0 K/mm3 K/mm3 (4.5-10.0) RBC 3.56 M/mm3 L M/mm3 (4.6-6.20) Hgb 10.6 g/dL L g/dL (14.0-18.0) Hct 33.0 % L % (42.0-52.0) MCV 92.7 fl fl (80-100) MCH 29.8 pg pg (26-34) MCHC 32.1 g/dl g/dl (32-36) RDW 13.4 % % (11.5-14.5) Plt Count 248 k/mm3 k/mm3 (150-375) MPV 9.6 fl fl (7.4-10.4) Immature Gran % (Auto) 0.6 % H % (0-0.5) Neut % (Auto) 70.5 % % (45.5-73.1) Lymph % (Auto) 17.3 % L % (18.3-44.2) Lipscomb % (Auto) 9.2 % H % (2.6-8.5) Eos % (Auto) 1.8 % % (0-4.4) Baso % (Auto) 0.6 % % (0.2-1.2) Lymph # (Auto) 1.56 K/mm3 K/mm3 (0.9-3.2) Lipscomb # (Auto) 0.8 K/mm3 H K/mm3 (0.1-0.6) Eos # (Auto) 0.2 K/mm3 K/mm3 (0-0.3) Baso # (Auto) 0.1 K/mm3 K/mm3 (0.0-0.1) Abs Immat Gran (auto) 0.05 K/mm3 H K/mm3 (0.00-0.031) Absolute Neuts (auto) 6.4 K/mm3 K/mm3 (1.3-6.7) Absolute Nucleated RBC 0.0 K/mm3 K/mm3 (0.0-0.012) Nucleated RBC % 0.0 % % (0.0-0.2) Sodium 132 mmol/L L mmol/L (137-145) Potassium 3.4 mmol/L mmol/L (3.4-5.0) Chloride 97 mmol/L L mmol/L (98-107) Carbon Dioxide 26 mmol/L mmol/L (22-30) Anion Gap 9 mmol/L mmol/L (8-16) BUN 35 mg/dL H mg/dL (9-20) Creatinine 8.90 mg/dL H mg/dL (0.7-1.3) Estim Creat Clear Calc 9 ml/min ml/min Estimated GFR 6 L (59 - ) Glucose 109 mg/dL mg/dL (65-110) Calcium 10.0 mg/dL mg/dL (8.4-10.2) Total Bilirubin 0.6 mg/dL mg/dL (0.2-1.3) AST 17 U/L U/L (17-59) ALT 11 U/L U/L (6-50) Alkaline Phosphatase 104 U/L U/L (38-126) Total Protein 7.0 g/dL g/dL (6.3-8.2) Albumin 3.1 g/dL L g/dL (3.5-5.1) Random Vancomycin 22.3 ug/mL H ug/mL (10-20) Patient hx anesthesia problems: none Family hx anesthesia problems: none Results Review: All pre-operative results and documents have been reviewed as part of the pre-operative evaluation. [facility] Past Medical History Medical History Arthritis Bicuspid aortic valve Severe aortic stenosis status post bioprosthetic aortic valve replacement. Cerebrovascular accident (09/21/20) Thought to be embolic in nature, on long-term anticoagulation. Residual dysarthria. Chronic anemia Chronic anemia Chr
[2022-11-28] MEDS: LABETALOL HCL INJ 100 MG/20 ML VIAL IV PUSH (09:39)
[2022-11-28] MEDS: BUPivacaine HCL 0.5% 10 ML AMP 30 ML INFILTRATE (10:49)
[2022-11-28] MEDS: VANCOMYCIN HCL 1,000 MG VIAL 1000 MG TOPICAL (10:50)
--- NOTE | 2022-11-28 11:27 | W.PM.PROC2 ---
Procedure Note - Detailed Date of Procedure 11/28/22 Pre-op Diagnosis Sepsis, wound infection Post-op Diagnosis Same Procedure Performed Right transmetatarsal amputation Surgeon Jacinto Whitaker MD Student Development Advisor 1st assistant program director Anesthesia General Indications 57-year-old with diabetes and peripheral neuropathy with chronic ulcer right foot on the lateral and plantar medial aspects. Exposed bone and osteomyelitis noted. Patient presents for operative treatment. Findings Necrosis and purulence surrounding the 5th metatarsal head extending soft tissue plantar and distal. Chronic infection changes of the sesamoid complex and hallux metatarsophalangeal joint. Description of Procedure Patient identified in the preoperative holding. Informed consent given. Operative extremity marked. Patient received intravenous antibiotics. Patient brought to the operating room where underwent general anesthetic by anesthesia team. Positioned supine on operating room table. Time-out performed confirming the patient, site of the surgery and the plan. Right foot prepped and draped in usual sterile surgical fashion using Betadine prep solution. There was an ulcer plantar medial aspect of the hallux which revealed full-thickness necrosis with exposed bone of the proximal phalanx and sesamoid complex. Ulcer 3 cm in diameter. Second ulcer on the lateral aspect of 5th metatarsal head measured 2 cm in diameter with purulent drainage, necrotic tissue and exposure of the metatarsal head. Given the amount of resection required for the infection of both 5th metatarsal 1st metatarsal-phalangeal joint with sesamoids as well as the ulcers there was no soft tissue coverage for the medial or lateral aspect of the foot. Decision made to proceed with transmetatarsal amputation. No ability to heal the wound and no soft tissue coverage of the bone, amputation of the Forefoot was indicated. Fifteen blade knife used to make fishmouth shaped incision at the base of the hallux extending laterally to the mid 5th metatarsal level. incision and continued on the plantar aspect at the base of the toes. Hemostasis controlled with electrocautery. Exposure was then done of each metatarsal neck sharply. Retractors placed and sagittal saw used to transect the 1st through 5th metatarsals. Metatarsals and the corresponding toes were then able to be shelled out of the soft tissue extending distally and passed off as specimen. Any other necrotic tissue sharply excised with 15 blade. Tendinous nonviable tissue sharply removed. Thorough irrigation done. Bony prominent surfaces of the metatarsals removed with a rongeur and smoothed. Wound thoroughly irrigated again. Wound closed with 2 0 Vicryl interrupted suture for the deep tissue, O Prolene interrupted sutures for the skin. Sterile dressings applied. Patient awoke from anesthesia, extubated and taken to the recovery room in stable condition. All sponge needle and instrument counts correct at the end the case. Estimated Blood Loss 1 Tourniquet Time 60 Urine Output 200 Drains No Packing No Pathology Yes ( Transmetatarsal amputation specimen) Complications None Condition Stable Disposition PACU [facility] Billing Surgery - Charge Forward: Surgery Billing ([id number])
[2022-11-28 11:47] LABS: Glucose Point of Care 106 mg/dl (65-105)
--- NOTE | 2022-11-28 12:19 | SUR.PHASEI ---
1217: Simple mask removed.
[2022-11-28] MEDS: SEVELAMER CARBONATE 800 MG TABLET 1600 MG PO ×2 (12:49→16:35)
--- NOTE | 2022-11-28 13:02 | PC.NURSE ---
Returned from OR per [1240]. Report received from [ellen ].
--- NOTE | 2022-11-28 13:54 | PM.PNNEP ---
Progress Note: A&P Assessment and Plan (1) End stage renal disease: Code(s): N18.6 - End stage renal disease Status: Chronic Assessment and Plan: continue nightly CCPD while hospitalized follow electrolytes, volume status, and clearance (2) Sepsis: Code(s): A41.9 - Sepsis, unspecified organism Status: Acute Assessment and Plan: as noted by fever, leukocytosis, and elevated ESR/CRP blood and would cultures pending on IV antibiotic therapy source suspected to be #3 follow hemodynamics (3) Diabetic foot ulcer: Code(s): E11.621 - Type 2 diabetes mellitus with foot ulcer; L97.509 - Non-pressure chronic ulcer of other part of unspecified foot with unspecified severity Status: Acute Assessment and Plan: suspected to be source for #2 Orthopedic recommendations noted MRI results noted local wound care s/p right TMA today (11/28/22) (4) Essential hypertension: Code(s): I10 - Essential (primary) hypertension Status: Acute Assessment and Plan: erratically erratic by history and outpatient records will increase lisinopril to bid dosing and add oral labetalol follow trend of hemodynamics Will continue to follow. Subjective Date/time seen: 11/28/22 13:54 Tolerated peritoneal dialysis treatment overnight without any issues/problems; s/p right transmetatarsal amputation earlier today and tolerated this intervention reasonably well too; no apparent distress voiced at the time of my visit but still sleepy from procedure. Exam Narrative: General: WD/WN male in NAD Heart: normal S1 and S2; no rub Lungs: clear anteriorly Abdomen: soft, nontender, nondistended, positive bowel sounds Extremities: no cyanosis or clubbing; left foot deformity present Skin: dressings on right foot noted Objective Data Vital Signs Vital Signs: Vital Signs Temp Pulse Resp BP Pulse Ox O2 Del Method O2 Flow Rate 11/28/22 14:16 97.4 F L 86 18 157/96 H 97 11/28/22 13:16 96.8 F L 82 16 142/83 H 94 11/28/22 12:46 97.1 F L 80 16 155/88 H 100 11/28/22 12:15 89 13 138/86 99 Simple Face Mask 8 11/28/22 12:07 88 20 123/77 Simple Face Mask 8 11/28/22 12:00 82 16 120/78 100 Simple Face Mask 8 11/28/22 11:45 84 14 121/74 100 Simple Face Mask 8 11/28/22 11:30 84 14 118/73 100 Simple Face Mask 8 11/28/22 11:16 97.3 F L 87 14 119/81 100 Simple Face Mask 8 11/28/22 10:22 Room Air 11/28/22 09:39 100 11/28/22 09:11 98.0 F 100 18 161/116 H 95 Room Air 11/28/22 07:56 190/85 H 11/28/22 05:49 98.9 F 95 14 217/109 H 98 11/27/22 20:00 Room Air 11/27/22 20:53 98.2 F 97 14 185/111 H 98 11/27/22 20:03 97.3 F L 90 18 162/106 H Room Air Intake/Output Intake/Output: Intake & Output 11/25/22 11/26/22 11/27/22 11/28/22 23:59 23:59 23:59 23:59 Intake Total 3470 1910 3710 950 Output Total 2810 2145 781 400 Balance 660 -235 2929 550 Meds/Results Medications: Active Medications Generic Name Dose Route Start Last Admin Trade Name Freq PRN Reason Stop Dose Admin Acetaminophen 650 mg 11/24/22 17:54 Acetaminophen 325 Mg Tablet PO Q4H PRN Mild Pain (1-3) or Fever Hydrocodone Bitart/Acetaminophen 1 tab 11/28/22 12:31 Hydrocodone/Acetaminophen (*Crx) 5-325 Mg Tablet PO Q3H PRN Pain Rated 4-6 Aspirin 81 mg 11/25/22 09:00 11/28/22 08:11 Aspirin 81 Mg Chewable Tablet PO Not Given DAILY ALEX Calcitriol 0.5 mcg 11/25/22 09:00 11/28/22 08:11 Calcitriol 0.25 Mcg Capsule PO Not Given [id number] ALEX Famotidine 40 mg 11/24/22 23:05 11/28/22 08:11 Famotidine 20 Mg Tablet PO Not Given Q12HR ALEX Gabapentin 900 mg 11/24/22 23:05 11/28/22 08:11 Gabapentin 300 Mg Capsule PO Not Given Q12HR ALEX Hydralazine HCl 10 mg 11/25/22 22:46 11/28/22 04:59 Hydralaz
--- NOTE | 2022-11-28 15:10 | PM.IMPN ---
Progress Note: A&P Assessment and Plan (1) Sepsis: Code(s): A41.9 - Sepsis, unspecified organism Status: Acute Assessment and Plan: Patient had a fever of 102. His blood pressure is elevated 148/114. He has a white count of 12.6. His ESR is 121. His CRP is 15.7. XR foot showed plantar soft tissue ulceration of the distal foot. Without acute osseous abnormality. Started on cefepime, vancomycin, and Flagyl. Blood and wound and urine cultures no growth to date. Tailor antibiotics to culture. It is suspected that the source of infection is his right foot wound. Fluid is being collected from peritoneal dialysis catheter for culture. Orthopedics consulted and following patient. MRI showed osteomyelitis of the fifth metatarsal head, fifth proximal phalanx, distal phalanx of the fourth digit, distal tuft and distal phalanx of the great toe. Septic arthritis of fifth MTP. Rupture of the flexor hallucis longus tendon. Patient underwent debridement of the right foot 11/25/22. Wound care consulted. Right transmetatarsal amputation on 11/28/22. Amputation decided due to the amount of resection required for the infection of both the 5th metatarsal and the 1st metatarsal phalangeal joint. Findings included necrosis and purulence surrounding the 5th metatarsal head extending soft tissue plantar and distal. Chronic infection changes of the sesamoid complex and hallux metatarsophalangeal joint. (2) End stage renal disease: Code(s): N18.6 - End stage renal disease Status: Chronic Assessment and Plan: Nephrology has been consulted. the patient has peritoneal dialysis. Continue with Renvela (3) Diabetic foot ulcer: Code(s): E11.621 - Type 2 diabetes mellitus with foot ulcer; L97.509 - Non-pressure chronic ulcer of other part of unspecified foot with unspecified severity Status: Acute Assessment and Plan: the patient is no longer taking anything for diabetes. However he has a chronic right foot ulcer. He has been treated outpatient for a chronic plantar surface ulcer. The patient stated that the ulcer has been shrinking. Malodorous smell on presentation. The patient was started on cefepime, vancomycin, and Flagyl. Blood and wound cultures no growth to date Titrate according to cultures. A1C 5.1 The patient is no longer taking any medication for his diabetes Patient states that he has had peripheral neuropathy since he was in his 20s and has had it long before he was diagnosed with diabetes. Patient sees neurologist for his peripheral neuropathy. (4) Essential hypertension: Code(s): I10 - Essential (primary) hypertension Status: Acute Assessment and Plan: p.r.n. hydralazine resume lisinopril Time Spent With Patient Time with patient: 25 - 35 minutes Subjective Date/time seen: 11/28/22 15:10 Interval history: Patient postop day 0 right transmetatarsal amputation. Pt was seen post op and patient was able to be awoken but would not stay awake long enough to answer questions. Review of Systems Review of Systems: ROS unobtainable: Yes other (Post op) Exam Narrative: GENERAL: Comfortable, no acute distress HENMT: moist mucous membranes EYES: EOM intact b/l NECK: no lymphadenopathy RESPIRATORY: clear to auscultation CARDIO: Irregular rhythm, rate controlled GI: soft, nontender, bowel sounds present SKIN: no rashes, without jaundice EXTREMITIES: Left foot deformity, right foot bandaged Objective Data Vital Signs Vital Signs: Vital Signs - 24 hr 11/27/22 20:03 11/27/22 20:53 11/27/22 20:00 Temperature 97.3 F L 98.2 F Pulse Rate 90 97 Respiratory Rate 18 14 Blood Pressure 162/106 H 185/111 H Pulse Oximetry 98 Oxygen Delivery Room Air Room Air Oxygen Flow Rate 11/28/22 05:49 11/28/22 07:56 11/28/22 09:11 Temperature 98.9 F 98.0 F Pulse Rate 95 100 Respiratory Rate 14 18 Bl
[2022-11-28 16:22] LABS: Glucose Point of Care 110 mg/dl (65-105)
[2022-11-28] MEDS: SENNA/DOCUSATE SODIUM TABLET 2 TAB PO (16:36)
[2022-11-28] MEDS: FAMOTIDINE 20 MG TABLET 40 MG PO (20:09)
[2022-11-28] MEDS: VENLAFAXINE HCL 75 MG TABLET BY MOUTH (20:09)
[2022-11-28] MEDS: GABAPENTIN 300 MG CAPSULE 900 MG PO (20:09)
[2022-11-28] MEDS: VENLAFAXINE HCL 25 MG TABLET BY MOUTH (20:09)
[2022-11-28] MEDS: MORPHINE SULFATE (*CRX) 4 MG/ML INJ 3 MG IV PUSH (21:50)
[2022-11-28 22:44] LABS: Glucose Point of Care 154 mg/dl (65-105)
[2022-11-29] VITALS (11 sets, daily range): BP systolic 158–190; BP diastolic 92–118; PULSE 94–108; RESP 18–24; TEMP 36.4–37.4; O2SAT 86–99
[2022-11-29] MEDS: hydrALAZINE HCL 20 MG/ML VIAL 10 MG IV PUSH ×3 (04:19→23:19)
[2022-11-29 08:11] LABS: Glucose Point of Care 101 mg/dl (65-105)
[2022-11-29] MEDS: GABAPENTIN 300 MG CAPSULE 900 MG PO ×2 (08:18→20:54)
[2022-11-29] MEDS: SEVELAMER CARBONATE 800 MG TABLET 1600 MG PO ×3 (08:18→16:53)
[2022-11-29] MEDS: SENNA/DOCUSATE SODIUM TABLET 2 TAB PO ×2 (08:19→16:56)
[2022-11-29] MEDS: lisinopriL 10 MG TABLET PO ×2 (08:19→16:55)
[2022-11-29] MEDS: polyethylene glycoL 3350 17 GM POWD.PACK PO (08:19)
[2022-11-29] MEDS: ASPIRIN 81 MG CHEWABLE TABLET PO (08:19)
[2022-11-29] MEDS: FAMOTIDINE 20 MG TABLET 40 MG PO ×2 (08:19→20:54)
[2022-11-29] MEDS: VENLAFAXINE HCL 25 MG TABLET BY MOUTH ×2 (08:21→20:55)
[2022-11-29] MEDS: metroNIDAZOLE 500 MG/ISO 100ML 500 MG/100 ML BAG 100 MG IVPB ×3 (08:21→23:19)
[2022-11-29] MEDS: VENLAFAXINE HCL 75 MG TABLET BY MOUTH ×2 (08:21→20:55)
[2022-11-29] MEDS: HYDROcodone/acetaminophen (*CRX) 5-325 MG TABLET 1 TAB PO (08:29)
[2022-11-29 10:20] LABS: Basophils Absolute Auto 0.1 K/mm3 (0.0-0.1); Basophils Percent Auto 0.5 % (0.2-1.2); Eosinophils Absolute Auto 0.1 K/mm3 (0-0.3); Eosinophils Percent Auto 1.1 % (0-4.4); Hematocrit 31.8 % (42.0-52.0); Hemoglobin 9.9 g/dL (14.0-18.0); Immature Granulocyte Absolute 0.04 K/mm3 (0.00-0.031); Immature Granulocyte Percent A 0.4 % (0-0.5); Lymphocytes Absolute Auto 1.47 K/mm3 (0.9-3.2); Lymphocytes Percent Auto 13.5 % (18.3-44.2); Mean Corpuscular HGB Conc 31.1 g/dl (32-36); Mean Corpuscular Hemoglobin 28.4 pg (26-34); Mean Corpuscular Volume 91.1 fl (80-100); Mean Platelet Volume 9.2 fl (7.4-10.4); Monocytes Absolute Auto 1.2 K/mm3 (0.1-0.6); Monocytes Percent Auto 10.8 % (2.6-8.5); Neutrophils Percent Auto 73.7 % (45.5-73.1); Platelet Count Result 232 k/mm3 (150-375); Red Blood Count 3.49 M/mm3 (4.6-6.20); Red Cell Distribution Width 13.8 % (11.5-14.5); White Blood Count 10.9 K/mm3 (4.5-10.0)
--- NOTE | 2022-11-29 10:31 | P.PNIM_ITS ---
Progress Note: A&P Assessment and Plan (1) Sepsis: Code(s): A41.9 - Sepsis, unspecified organism Status: Acute Assessment and Plan: Patient had a fever of 102. His blood pressure is elevated 148/114. He has a white count of 12.6. His ESR is 121. His CRP is 15.7. * XR foot showed plantar soft tissue ulceration of the distal foot. Without acute osseous abnormality. * Started on cefepime, vancomycin, and Flagyl. * Blood and urine cultures no growth to date. * Tailor antibiotics to culture. * Fluid is being collected from peritoneal dialysis catheter for culture. * Orthopedics consulted and following patient. * MRI showed osteomyelitis of the fifth metatarsal head, fifth proximal phalanx, distal phalanx of the fourth digit, distal tuft and distal phalanx of the great toe. Septic arthritis of fifth MTP. Rupture of the flexor hallucis longus tendon. * Patient underwent debridement of the right foot 11/25/22. * Wound care consulted. * Right transmetatarsal amputation on 11/28/22. Amputation decided due to the amount of resection required for the infection of both the 5th metatarsal and the 1st metatarsal phalangeal joint. Findings included necrosis and purulence surrounding the 5th metatarsal head extending soft tissue plantar and distal. Chronic infection changes of the sesamoid complex and hallux metatarsophalangeal joint. 11/29/22 * Patient hard to arouse. CT head ordered. Pain medication cut back. * Wound culture positive for MRSA. Cefepime d/c and pt continued on Vanc and Flagyl. Patient on day 7 of antibiotic therapy. * Splint in place, c/d/i. Plan for removal and likely wound VAC placement on 12/01/22. * Discussed with ID pharmacist regarding antibiotics for patient. Tentative plan to transition patient to oral antibiotics in the next day or 2. Recommended antibiotics include doxycycline and Flagyl. (2) End stage renal disease: Code(s): N18.6 - End stage renal disease Status: Chronic Assessment and Plan: Nephrology has been consulted. * the patient has peritoneal dialysis. * Continue with Renvela (3) Diabetic foot ulcer: Code(s): E11.621 - Type 2 diabetes mellitus with foot ulcer; L97.509 - Non-pressure chronic ulcer of other part of unspecified foot with unspecified severity Status: Acute Assessment and Plan: the patient is no longer taking anything for diabetes. However he has a chronic right foot ulcer. He has been treated outpatient for a chronic plantar surface ulcer. The patient stated that the ulcer has been shrinking. Malodorous smell on presentation. * The patient was started on cefepime, vancomycin, and Flagyl. * Blood and wound cultures no growth to date. * Titrate according to cultures. * A1C 5.1 * The patient is no longer taking any medication for his diabetes. * Patient states that he has had peripheral neuropathy since he was in his 20s and has had it long before he was diagnosed with diabetes. * Patient sees neurologist for his peripheral neuropathy. (4) Essential hypertension: Code(s): I10 - Essential (primary) hypertension Status: Acute Assessment and Plan: p.r.n. hydralazine resume lisinopril Time Spent With Patient Time with patient: 25 - 35 minutes Subjective Date/time seen: 11/29/22 10:31 Interval history: Patient very drowsy when being interviewed. Patient unable to answer any questions. Patient did states that he was having right foot pain other than that he was unable to stay
--- NOTE | 2022-11-29 10:31 | PM.IMPN ---
Progress Note: A&P Assessment and Plan (1) Sepsis: Code(s): A41.9 - Sepsis, unspecified organism Status: Acute Assessment and Plan: Patient had a fever of 102. His blood pressure is elevated 148/114. He has a white count of 12.6. His ESR is 121. His CRP is 15.7. XR foot showed plantar soft tissue ulceration of the distal foot. Without acute osseous abnormality. Started on cefepime, vancomycin, and Flagyl. Blood and urine cultures no growth to date. Tailor antibiotics to culture. Fluid is being collected from peritoneal dialysis catheter for culture. Orthopedics consulted and following patient. MRI showed osteomyelitis of the fifth metatarsal head, fifth proximal phalanx, distal phalanx of the fourth digit, distal tuft and distal phalanx of the great toe. Septic arthritis of fifth MTP. Rupture of the flexor hallucis longus tendon. Patient underwent debridement of the right foot 11/25/22. Wound care consulted. Right transmetatarsal amputation on 11/28/22. Amputation decided due to the amount of resection required for the infection of both the 5th metatarsal and the 1st metatarsal phalangeal joint. Findings included necrosis and purulence surrounding the 5th metatarsal head extending soft tissue plantar and distal. Chronic infection changes of the sesamoid complex and hallux metatarsophalangeal joint. 11/29/22 Patient hard to arouse. CT head ordered. Pain medication cut back. Wound culture positive for MRSA. Cefepime d/c and pt continued on Vanc and Flagyl. Patient on day 7 of antibiotic therapy. Splint in place, c/d/i. Plan for removal and likely wound VAC placement on 12/01/22. Discussed with ID pharmacist regarding antibiotics for patient. Tentative plan to transition patient to oral antibiotics in the next day or 2. Recommended antibiotics include doxycycline and Flagyl. (2) End stage renal disease: Code(s): N18.6 - End stage renal disease Status: Chronic Assessment and Plan: Nephrology has been consulted. the patient has peritoneal dialysis. Continue with Renvela (3) Diabetic foot ulcer: Code(s): E11.621 - Type 2 diabetes mellitus with foot ulcer; L97.509 - Non-pressure chronic ulcer of other part of unspecified foot with unspecified severity Status: Acute Assessment and Plan: the patient is no longer taking anything for diabetes. However he has a chronic right foot ulcer. He has been treated outpatient for a chronic plantar surface ulcer. The patient stated that the ulcer has been shrinking. Malodorous smell on presentation. The patient was started on cefepime, vancomycin, and Flagyl. Blood and wound cultures no growth to date. Titrate according to cultures. A1C 5.1 The patient is no longer taking any medication for his diabetes. Patient states that he has had peripheral neuropathy since he was in his 20s and has had it long before he was diagnosed with diabetes. Patient sees neurologist for his peripheral neuropathy. (4) Essential hypertension: Code(s): I10 - Essential (primary) hypertension Status: Acute Assessment and Plan: p.r.n. hydralazine resume lisinopril Time Spent With Patient Time with patient: 25 - 35 minutes Subjective Date/time seen: 11/29/22 10:31 Interval history: Patient very drowsy when being interviewed. Patient unable to answer any questions. Patient did states that he was having right foot pain other than that he was unable to stay focused answer any more questions. Review of Systems Review of Systems: ROS unobtainable: Yes unobtainable due to medical condition Exam Narrative: GENERAL: Comfortable, no acute distress HENMT: moist mucous membranes EYES: EOM intact b/l NECK: no lymphadenopathy RESPIRATORY: clear to auscultation CARDIO: Irregular rhythm, rate controlled GI: soft, nontender, bowel sounds present SKIN: no rashes, without jaundice EXTREMITIES:
[2022-11-29 10:39] LABS: Alanine Aminotransferase 12 U/L (6-50); Alkaline Phosphatase 87 U/L (38-126); Anion Gap 7 mmol/L (8-16); Aspartate Amino Transferase 23 U/L (17-59); Bilirubin,Total 0.6 mg/dL (0.2-1.3); Blood Urea Nitrogen 36 mg/dL (9-20); Calcium 9.2 mg/dL (8.4-10.2); Carbon Dioxide 28 mmol/L (22-30); Chloride 98 mmol/L (98-107); Estimated CRCL calculation 10 ml/min; Estimated Glomerular Filt Rate 6; Glucose 107 mg/dL (65-110); Potassium 3.9 mmol/L (3.4-5.0); Sodium 133 mmol/L (137-145)
[2022-11-29 11:00] LABS: Vancomycin Random 18.6 ug/mL (10-20)
--- NOTE | 2022-11-29 11:04 | PM.PNNEP ---
Progress Note: A&P Assessment and Plan (1) End stage renal disease: Code(s): N18.6 - End stage renal disease Status: Chronic Assessment and Plan: continue nightly CCPD while hospitalized follow electrolytes, volume status, and clearance (2) Sepsis: Code(s): A41.9 - Sepsis, unspecified organism Status: Acute Assessment and Plan: as noted by fever, leukocytosis, and elevated ESR/CRP blood and would cultures results noted on IV antibiotic therapy source suspected to be #3 follow hemodynamics (3) Diabetic foot ulcer: Code(s): E11.621 - Type 2 diabetes mellitus with foot ulcer; L97.509 - Non-pressure chronic ulcer of other part of unspecified foot with unspecified severity Status: Acute Assessment and Plan: suspected to be source for #2 Orthopedic recommendations noted MRI results noted local wound care s/p right TMA (on 11/28/22) (4) Essential hypertension: Code(s): I10 - Essential (primary) hypertension Status: Acute Assessment and Plan: erratically erratic by history and outpatient records increased lisinopril to bid dosing and added oral labetalol follow trend of hemodynamics Will continue to follow. Subjective Date/time seen: 11/29/22 11:04 S/P right TMA yesterday and tolerated the procedure/intervention reasonably well; PD treatment well last night as well; issues with high BP noted but his blood pressure is difficult to control even at baseline; no apparent distress voiced at the time of my visit. Exam Narrative: General: WD/WN male in NAD Heart: normal S1 and S2; no rub Lungs: clear anteriorly Abdomen: soft, nontender, nondistended, positive bowel sounds Extremities: no cyanosis or clubbing; left foot deformity noted Skin: dressings on right foot present Objective Data Vital Signs Vital Signs: Vital Signs Temp Pulse Resp BP Pulse Ox O2 Del Method O2 Flow Rate 11/29/22 08:00 99.3 F 108 H 24 H 190/95 H 90 11/29/22 07:37 Room Air 11/29/22 04:26 98.2 F 105 H 18 188/110 H 99 11/28/22 23:58 97.8 F 96 22 H 162/106 H 100 11/28/22 21:51 151/87 H 11/28/22 21:29 97.5 F L 97 20 194/91 H 99 11/28/22 20:19 97.5 F L 97 16 194/91 H 97 Room Air 11/28/22 18:16 97.6 F 85 16 156/82 H 100 11/28/22 14:16 97.4 F L 86 18 157/96 H 97 11/28/22 13:16 96.8 F L 82 16 142/83 H 94 11/28/22 12:46 97.1 F L 80 16 155/88 H 100 11/28/22 12:15 89 13 138/86 99 Simple Face Mask 8 11/28/22 12:07 88 20 123/77 Simple Face Mask 8 11/28/22 12:00 82 16 120/78 100 Simple Face Mask 8 11/28/22 11:45 84 14 121/74 100 Simple Face Mask 8 11/28/22 11:30 84 14 118/73 100 Simple Face Mask 8 11/28/22 11:16 97.3 F L 87 14 119/81 100 Simple Face Mask 8 Intake/Output Intake/Output: Intake & Output 11/26/22 11/27/22 11/28/22 11/29/22 23:59 23:59 23:59 23:59 Intake Total 1910 3710 1290 200 Output Total 2145 781 600 0 Balance -235 2929 690 200 Meds/Results Medications: Active Medications Generic Name Dose Route Start Last Admin Trade Name Freq PRN Reason Stop Dose Admin Acetaminophen 650 mg 11/24/22 17:54 Acetaminophen 325 Mg Tablet PO Q4H PRN Mild Pain (1-3) or Fever Hydrocodone Bitart/Acetaminophen 1 tab 11/28/22 12:31 11/29/22 08:29 Hydrocodone/Acetaminophen (*Crx) 5-325 Mg Tablet PO 1 tab Q3H PRN Administration Pain Rated 4-6 Aspirin 81 mg 11/25/22 09:00 11/29/22 08:19 Aspirin 81 Mg Chewable Tablet PO 81 mg DAILY ALEX Administration Calcitriol 0.5 mcg 11/25/22 09:00 11/28/22 08:11 Calcitriol 0.25 Mcg Capsule PO Not Given [id number] ALEX Famotidine 40 mg 11/24/22 23:05 11/29/22 08:19 Famotidine 20 Mg Tablet PO 40 mg Q12HR ALEX Administration Gabapentin 900 mg 11/24/22 23:05 11/29/22 08:18 Gabapentin 300 Mg Capsule PO
[2022-11-29 11:38] LABS: Glucose Point of Care 123 mg/dl (65-105)
--- NOTE | 2022-11-29 11:52 | PM.PNORT ---
Progress Note: A&P Assessment and Plan (1) Osteomyelitis of foot, right, acute: Code(s): M86.171 - Other acute osteomyelitis, right ankle and foot Status: Acute Assessment and Plan: POD #1: Right TMA Wound cultures from 2/3 with MRSA. Pathology from surgery pending. Splint in place, c/d/i. Plan for removal and likely wound VAC placement on . Elevate. NWB RLE. IV antibiotics. Will continue to monitor. 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 - Non-pressure chronic ulcer of other part of right foot with necrosis of bone Code(s): E11.621 - Type 2 diabetes mellitus with foot ulcer; L97.509 - Non-pressure chronic ulcer of other part of unspecified foot with unspecified severity Status: Acute (3) Sepsis: Code(s): A41.9 - Sepsis, unspecified organism Status: Acute (4) Unspecified open wound, left foot, initial encounter: Code(s): S91.302A - Unspecified open wound, left foot, initial encounter Status: Acute Subjective Subjective Date/Time Seen: 11/29/22 11:52 Post Op day: 1 Interval history: POD #1: Right transmetatarsal amputation Patient resting comfortable. Arousable to voice. No new concerns regarding right foot today. Pain well controlled. Review of Systems Review of Systems: All systems reviewed & are unremarkable except as noted in HPI and below Exam Const: General: comfortable and no acute distress Resp: Effort & Inspection: normal respiratory effort Skin: Wounds: wounds noted Extrem: Other: Splint right foot c/d/i. No drainage. Knee without effusion/pain. Psych: Mental Status: mental status grossly normal Objective Data Vital Signs Vital Signs: Vital Signs - 24 hr 11/28/22 12:00 11/28/22 12:07 11/28/22 12:15 Temperature Pulse Rate 82 88 89 Respiratory Rate 16 20 13 Blood Pressure 120/78 123/77 138/86 Pulse Oximetry 100 99 Oxygen Delivery Simple Face Mask Simple Face Mask Simple Face Mask Oxygen Flow Rate 8 8 8 11/28/22 12:46 11/28/22 13:16 11/28/22 14:16 Temperature 36.2 C L 36.0 C L 36.3 C L Pulse Rate 80 82 86 Respiratory Rate 16 16 18 Blood Pressure 155/88 H 142/83 H 157/96 H Pulse Oximetry 100 94 97 Oxygen Delivery Oxygen Flow Rate 11/28/22 18:16 11/28/22 20:19 11/28/22 21:29 Temperature 36.4 C 36.4 C L 36.4 C L Pulse Rate 85 97 97 Respiratory Rate 16 16 20 Blood Pressure 156/82 H 194/91 H 194/91 H Pulse Oximetry 100 97 99 Oxygen Delivery Room Air Oxygen Flow Rate 11/28/22 21:51 11/28/22 23:58 11/29/22 04:26 Temperature 36.6 C 36.8 C Pulse Rate 96 105 H Respiratory Rate 22 H 18 Blood Pressure 151/87 H 162/106 H 188/110 H Pulse Oximetry 100 99 Oxygen Delivery Oxygen Flow Rate 11/29/22 07:37 11/29/22 08:00 Temperature 37.4 C Pulse Rate 108 H Respiratory Rate 24 H Blood Pressure 190/95 H Pulse Oximetry 90 Oxygen Delivery Room Air Oxygen Flow Rate Intake/Output Intake/Output: Intake & Output 11/26/22 11/27/22 11/28/22 11/29/22 23:59 23:59 23:59 23:59 Intake Total 1910 3710 1290 200 Output Total 2145 781 600 0 Balance -235 2929 690 200 Meds/Results Medications: Active Medications Generic Name Dose Route Start Last Admin Trade Name Freq PRN Reason Stop Dose Admin Acetaminophen 650 mg 11/24/22 17:54 Acetaminophen 325 Mg Tablet PO Q4H PRN Mild Pain (1-3) or Fever Hydrocodone Bitart/Acetaminophen 1 tab 11/28/22 12:31 11/29/22 08:29 Hydrocodone/Acetaminophen (*Crx) 5-325 Mg Tablet PO 1 tab Q3H PRN Administration Pain Rated 4-6 Aspirin 81 mg 11/25/22 09:00 11/29/22 08:19 Aspirin 81 Mg Chewable Tablet PO 81 mg DAILY ALEX Administration Calcitriol 0.5 mcg 11/25/22 09:0
--- NOTE | 2022-11-29 15:05 | PC.NURSE ---
Lab called this nurse at 1345 about pt R foot wound growing MRSA. This nurse called Mary Lou at 1410 to let Hospitalist know about the result.
[2022-11-29 16:47] LABS: Glucose Point of Care 88 mg/dl (65-105)
[2022-11-29] MEDS: LABETALOL HCL 100 MG TABLET PO (20:54)
[2022-11-29 22:01] LABS: Glucose Point of Care 131 mg/dl (65-105)
[2022-11-30] VITALS (8 sets, daily range): BP systolic 130–186; BP diastolic 69–100; PULSE 74–88; RESP 14–22; TEMP 35.9–36.4; O2SAT 94–99
[2022-11-30] MEDS: hydrALAZINE HCL 20 MG/ML VIAL 10 MG IV PUSH ×2 (04:58→13:24)
[2022-11-30 07:57] LABS: Glucose Point of Care 97 mg/dl (65-105)
[2022-11-30] MEDS: metroNIDAZOLE 500 MG/ISO 100ML 500 MG/100 ML BAG 100 MG IVPB ×2 (09:55→18:09)
[2022-11-30 10:01] LABS: Basophils Absolute Auto 0.1 K/mm3 (0.0-0.1); Basophils Percent Auto 0.7 % (0.2-1.2); Eosinophils Absolute Auto 0.2 K/mm3 (0-0.3); Eosinophils Percent Auto 1.5 % (0-4.4); Hematocrit 34.3 % (42.0-52.0); Hemoglobin 10.7 g/dL (14.0-18.0); Immature Granulocyte Absolute 0.09 K/mm3 (0.00-0.031); Immature Granulocyte Percent A 0.8 % (0-0.5); Lymphocytes Absolute Auto 1.94 K/mm3 (0.9-3.2); Lymphocytes Percent Auto 16.2 % (18.3-44.2); Mean Corpuscular HGB Conc 31.2 g/dl (32-36); Mean Corpuscular Hemoglobin 28.8 pg (26-34); Mean Corpuscular Volume 92.2 fl (80-100); Mean Platelet Volume 9.7 fl (7.4-10.4); Monocytes Absolute Auto 1.1 K/mm3 (0.1-0.6); Neutrophils Absolute Auto 8.6 K/mm3 (1.3-6.7); Neutrophils Percent Auto 71.8 % (45.5-73.1); Platelet Count Result 275 k/mm3 (150-375); Red Blood Count 3.72 M/mm3 (4.6-6.20); Red Cell Distribution Width 13.8 % (11.5-14.5)
[2022-11-30] MEDS: GABAPENTIN 300 MG CAPSULE 900 MG PO ×2 (10:02→20:21)
[2022-11-30] MEDS: LABETALOL HCL 100 MG TABLET 200 MG PO (10:04)
[2022-11-30] MEDS: SENNA/DOCUSATE SODIUM TABLET 2 TAB PO ×2 (10:05→18:10)
[2022-11-30] MEDS: VENLAFAXINE HCL 25 MG TABLET BY MOUTH ×2 (10:05→20:22)
[2022-11-30] MEDS: VENLAFAXINE HCL 75 MG TABLET BY MOUTH ×2 (10:05→20:22)
[2022-11-30] MEDS: polyethylene glycoL 3350 17 GM POWD.PACK PO (10:06)
[2022-11-30] MEDS: lisinopriL 10 MG TABLET PO ×2 (10:06→18:11)
[2022-11-30] MEDS: ASPIRIN 81 MG CHEWABLE TABLET PO (10:07)
[2022-11-30] MEDS: calcitrioL 0.25 MCG CAPSULE 0.5 MCG PO (10:07)
[2022-11-30] MEDS: FAMOTIDINE 20 MG TABLET 40 MG PO ×2 (10:08→20:21)
[2022-11-30 10:16] LABS: Alanine Aminotransferase 12 U/L (6-50); Albumin Level 3.2 g/dL (3.5-5.1); Alkaline Phosphatase 100 U/L (38-126); Anion Gap 6 mmol/L (8-16); Aspartate Amino Transferase 20 U/L (17-59); Bilirubin,Total 0.5 mg/dL (0.2-1.3); Blood Urea Nitrogen 39 mg/dL (9-20); Calcium 9.7 mg/dL (8.4-10.2); Carbon Dioxide 30 mmol/L (22-30); Chloride 97 mmol/L (98-107); Estimated CRCL calculation 8 ml/min; Estimated Glomerular Filt Rate 6; Glucose 108 mg/dL (65-110); Sodium 133 mmol/L (137-145)
--- NOTE | 2022-11-30 10:30 | PM.IMPN ---
Progress Note: A&P Assessment and Plan (1) Osteomyelitis of foot, right, acute: Code(s): M86.171 - Other acute osteomyelitis, right ankle and foot Status: Acute Assessment and Plan: POD 2 Foot xray Plantar soft tissue ulceration of the distal foot. Otherwise chronic findings without acute osseous abnormality identified. 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 Patient underwent debridement of the right foot 11/25/22. Wound care consulted. Weight bearing stat non-weight bearing Splint in place, c/d/i. Plan for removal and likely wound VAC placement on 12/01/22. Discussed with ID pharmacist regarding antibiotics for patient. Tentative plan to transition patient to oral antibiotics in the next day or 2. Recommended antibiotics include doxycycline and Flagyl. (2) Sepsis: Code(s): A41.9 - Sepsis, unspecified organism Status: Acute Assessment and Plan: SIRS criteria met with fever, leukocytosis, tachycardia, with a source of infection. Source of infection is the foot ulcer on the right foot Foot xray Plantar soft tissue ulceration of the distal foot. Otherwise chronic findings without acute osseous abnormality identified. 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 Blood and urine cultures no growth to date. Wound culture grew Prevotella and MRSA De-escalate antibiotics (3) End stage renal disease: Code(s): N18.6 - End stage renal disease Status: Chronic Assessment and Plan: Nephrology has been consulted. Continue dialysis as indicated Current BUN/Cr 39/9.70 Trend labs Continue with Renvela (4) Diabetic foot ulcer: Code(s): E11.621 - Type 2 diabetes mellitus with foot ulcer; L97.509 - Non-pressure chronic ulcer of other part of unspecified foot with unspecified severity Status: Acute Assessment and Plan: See above Glucose stable at 108 A1c 5.1 Continue to trend glucose Adjust medications as indicated (5) Essential hypertension: Code(s): I10 - Essential (primary) hypertension Status: Acute Assessment and Plan: BP 189/94 p.r.n. hydralazine resume lisinopril Trend BP adjust therapy as indicated Time Spent With Patient Time: 53 minutes Time with patient: Greater than 35 minutes Subjective Date/time seen: 11/30/22 10:30 Interval history: 11/30/22 1030 Patient is laying in bed. He denies any chest pain, shortness of breath, nausea, vomiting, diarrhea, constipation, weakness or fatigue. He did state that he is having a little pain, and currently rated his pain a 2/10. He appears to feel well. He can move his feet and legs. 11/29/22 Patient very drowsy when being interviewed. Patient unable to answer any questions. Patient did states that he was having right foot pain other than that he was unable to stay focused answer any more questions. 11/28/22? 15:10 Patient postop day 0 right transmetatarsal amputation.? Pt was seen post op and patient was able to be awoken but would not stay awake long enough to answer questions.? 11/27/22? 13:01 Patient resting in bed comfortably.? Patient has no new complaints.? Denies foot pain, fevers, nausea, vomiting, chest pain, shortness a breath and lower extremity edema. 11/26/22? 11:41 Patient resting in bed comfortably all being interviewed.? Patient has no new complaints.? Patient does not have any feeling in his extremities thus does not have any pain.? Patient denies fevers, headache, dizziness, chest pain, shortness a breath, nausea vomiting. 11/25/22? 14:13 P
--- NOTE | 2022-11-30 10:30 | P.PNIM_ITS ---
Progress Note: A&P Assessment and Plan (1) Osteomyelitis of foot, right, acute: Code(s): M86.171 - Other acute osteomyelitis, right ankle and foot Status: Acute Assessment and Plan: * POD 2 * Foot xray Plantar soft tissue ulceration of the distal foot. Otherwise chronic findings without acute osseous abnormality identified. 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 * Patient underwent debridement of the right foot 11/25/22. * Wound care consulted. * Weight bearing stat non-weight bearing * Splint in place, c/d/i. Plan for removal and likely wound VAC placement on 12/01/22. * Discussed with ID pharmacist regarding antibiotics for patient. Tentative plan to transition patient to oral antibiotics in the next day or 2. Recommended antibiotics include doxycycline and Flagyl. (2) Sepsis: Code(s): A41.9 - Sepsis, unspecified organism Status: Acute Assessment and Plan: * SIRS criteria met with fever, leukocytosis, tachycardia, with a source of infection. * Source of infection is the foot ulcer on the right foot * Foot xray Plantar soft tissue ulceration of the distal foot. Otherwise chronic findings without acute osseous abnormality identified. 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 * Blood and urine cultures no growth to date. * Wound culture grew Prevotella and MRSA * De-escalate antibiotics (3) End stage renal disease: Code(s): N18.6 - End stage renal disease Status: Chronic Assessment and Plan: * Nephrology has been consulted. * Continue dialysis as indicated * Current BUN/Cr 39/9.70 * Trend labs * Continue with Renvela (4) Diabetic foot ulcer: Code(s): E11.621 - Type 2 diabetes mellitus with foot ulcer; L97.509 - Non-pressure chron ic ulcer of other part of unspecified foot with unspecified severity Status: Acute Assessment and Plan: * See above * Glucose stable at 108 * A1c 5.1 * Continue to trend glucose * Adjust medications as indicated (5) Essential hypertension: Code(s): I10 - Essential (primary) hypertension Status: Acute Assessment and Plan: * BP 189/94 * p.r.n. hydralazine * resume lisinopril * Trend BP * adjust therapy as indicated Time Spent With Patient Time: 53 minutes Time with patient: Greater than 35 minutes Subjective Date/time seen: 11/30/22 10:30 Interval history: 11/30/22 1030 Patient is laying in bed. He denies any chest pain, shortness of breath, nausea, vomiting, diarrhea, constipation, weakness or fatigue. He did state that he is having a little pain, and currently rated his pain a 2/10. He appears to feel well. He can move his feet and legs. 11/29/22 Patient very drowsy when being interviewed. Patient unable to answer any questions. Patient did states that he was having right foot pain other than that he was unable to stay focused answer any more questions. 11/28/22? 15:10 Patient postop day 0 right transmetatarsal amputation.? Pt was seen post op and patient was able to be awoken but would not stay awake radha
[2022-11-30 11:04] LABS: Vancomycin Random 15.9 ug/mL (10-20)
--- NOTE | 2022-11-30 11:06 | PCOTNOTE ---
Attempted to see patient this am, however patient refused. Pt declined ADLs and sitting up in chair stating, I have a headache. Pt notified nursing with call light for pain medicine.
[2022-11-30 11:31] LABS: Glucose Point of Care 126 mg/dl (65-105)
--- NOTE | 2022-11-30 12:27 | P.PNNP_ITS ---
Progress Note: A&P Assessment and Plan (1) End stage renal disease: Code(s): N18.6 - End stage renal disease Status: Chronic Assessment and Plan: * continue nightly CCPD while hospitalized * follow electrolytes, volume status, and clearance (2) Sepsis: Code(s): A41.9 - Sepsis, unspecified organism Status: Acute Assessment and Plan: * as noted by fever, leukocytosis, and elevated ESR/CRP * blood and would cultures results noted * on IV antibiotic therapy * source suspected to be #3 * follow hemodynamics (3) Diabetic foot ulcer: Code(s): E11.621 - Type 2 diabetes mellitus with foot ulcer; L97.509 - Non-pressure chronic ulcer of other part of unspecified foot with unspecified severity Status: Acute Assessment and Plan: * suspected to be source for #2 * Orthopedic recommendations noted * MRI results noted * local wound care * s/p right TMA (on 11/28/22) (4) Essential hypertension: Code(s): I10 - Essential (primary) hypertension Status: Acute Assessment and Plan: * erratically erratic by history and outpatient records * increased lisinopril to bid dosing and added oral labetalol * follow trend of hemodynamics Will continue to follow. Subjective Date/time seen: 11/30/22 12:27 Tolerated peritoneal dialysis treatment overnight without any issue or problems; blood pressure control remains erratic (as is his baseline); no apparent distress noted; no apparent distress noted. Exam Narrative: General: WD/WN male in NAD Heart: normal S1 and S2; no rub Lungs: clear anteriorly Abdomen: soft, nontender, nondistended, positive bowel sounds Extremities: no cyanosis or clubbing; left foot deformity noted Skin: dressings on right foot present Objective Data Vital Signs Vital Signs: Vital Signs Temp Pulse Resp BP Pulse Ox O2 Del Method 11/30/22 12:00 96.8 F L 82 16 170/100 H 98 11/30/22 08:43 Room Air 11/30/22 08:00 88 18 140/90 96 11/30/22 04:00 96.6 F L 88 20 186/94 H 94 11/29/22 23:00 97.5 F L 95 18 180/100 H 92 11/29/22 20:54 94 11/29/22 19:18 170/92 H Intake/Output Intake/Output: Intake & Output 11/27/22 11/28/22 11/29/22 11/30/22 23:59 23:59 23:59 23:59 Intake Total 3710 1290 1120 1842 Output Total 781 600 435 125 Balance 2929 654 546 1054 Meds/Results Medications: Active Medications Generic Name Dose Route Start Last Admin Trade Name Freq PRN Reason Stop Dose Admin Acetaminophen 650 mg 11/24/22 17:54 Acetaminophen 325 Mg Tablet PO Q4H PRN Mild Pain (1-3) or Fever Aspirin 81 mg 11/25/22 09:00 11/30/22 10:07 Aspirin 81 Mg Chewable Tablet PO 81 mg DAILY ALEX Administration Calcitriol 0.5 mcg 11/25/22 09:00 11/30/22 10:07 Calcitriol 0.25 Mcg Capsule PO 0.5 mcg [id number] ALEX Administration Famotidine 40 mg 11/24/22 23:05 11/30/22 10:08 Famotidine 20 Mg Tablet PO 40 mg Q12HR ALEX Administration Gabapentin 900 mg 11/24/22 23:05 11/30/22 10:02 Gabapentin 300 Mg Capsule PO 900 mg Q12HR ALEX A
--- NOTE | 2022-11-30 12:27 | PM.PNNEP ---
Progress Note: A&P Assessment and Plan (1) End stage renal disease: Code(s): N18.6 - End stage renal disease Status: Chronic Assessment and Plan: continue nightly CCPD while hospitalized follow electrolytes, volume status, and clearance (2) Sepsis: Code(s): A41.9 - Sepsis, unspecified organism Status: Acute Assessment and Plan: as noted by fever, leukocytosis, and elevated ESR/CRP blood and would cultures results noted on IV antibiotic therapy source suspected to be #3 follow hemodynamics (3) Diabetic foot ulcer: Code(s): E11.621 - Type 2 diabetes mellitus with foot ulcer; L97.509 - Non-pressure chronic ulcer of other part of unspecified foot with unspecified severity Status: Acute Assessment and Plan: suspected to be source for #2 Orthopedic recommendations noted MRI results noted local wound care s/p right TMA (on 11/28/22) (4) Essential hypertension: Code(s): I10 - Essential (primary) hypertension Status: Acute Assessment and Plan: erratically erratic by history and outpatient records increased lisinopril to bid dosing and added oral labetalol follow trend of hemodynamics Will continue to follow. Subjective Date/time seen: 11/30/22 12:27 Tolerated peritoneal dialysis treatment overnight without any issue or problems; blood pressure control remains erratic (as is his baseline); no apparent distress noted; no apparent distress noted. Exam Narrative: General: WD/WN male in NAD Heart: normal S1 and S2; no rub Lungs: clear anteriorly Abdomen: soft, nontender, nondistended, positive bowel sounds Extremities: no cyanosis or clubbing; left foot deformity noted Skin: dressings on right foot present Objective Data Vital Signs Vital Signs: Vital Signs Temp Pulse Resp BP Pulse Ox O2 Del Method 11/30/22 12:00 96.8 F L 82 16 170/100 H 98 11/30/22 08:43 Room Air 11/30/22 08:00 88 18 140/90 96 11/30/22 04:00 96.6 F L 88 20 186/94 H 94 11/29/22 23:00 97.5 F L 95 18 180/100 H 92 11/29/22 20:54 94 11/29/22 19:18 170/92 H Intake/Output Intake/Output: Intake & Output 11/27/22 11/28/22 11/29/2208/23 23:59 23:59 23:59 23:59 Intake Total 3710 1290 1120 1842 Output Total 781 600 435 125 Balance 2929 405 611 2862 Meds/Results Medications: Active Medications Generic Name Dose Route Start Last Admin Trade Name Freq PRN Reason Stop Dose Admin Acetaminophen 650 mg 11/24/22 17:54 Acetaminophen 325 Mg Tablet PO Q4H PRN Mild Pain (1-3) or Fever Aspirin 81 mg 11/25/22 09:00 11/30/22 10:07 Aspirin 81 Mg Chewable Tablet PO 81 mg DAILY ALEX Administration Calcitriol 0.5 mcg 11/25/22 09:00 11/30/22 10:07 Calcitriol 0.25 Mcg Capsule PO 0.5 mcg [id number] ALEX Administration Famotidine 40 mg 11/24/22 23:05 11/30/22 10:08 Famotidine 20 Mg Tablet PO 40 mg Q12HR ALEX Administration Gabapentin 900 mg 11/24/22 23:05 11/30/22 10:02 Gabapentin 300 Mg Capsule PO 900 mg Q12HR ALXE Administration Hydralazine HCl 10 mg 11/25/22 22:46 11/30/22 13:24 Hydralazine Hcl 20 Mg/Ml Vial IV PUSH 10 mg Q4H PRN Administration Blood Pressure - High Metronidazole 500 mg in 100 mls @ 100 mls/hr 11/25/22 00:00 11/30/22 09:55 Flagyl 500 Mg/Iso Soln 100 Ml IVPB 100 mls/hr Q8H ALEX Administration Vancomycin HCl 1,250 mg in 250 mls @ 200 mls/hr 11/24/22 21:10 Vancomycin 1,250 Mg/D5w 250 Ml IVPB PRN PRN Kinetics Consult Labetalol HCl 200 mg 11/30/22 09:00 11/30/22 10:04 Labetalol Hcl 100 Mg Tablet PO 200 mg Q12HR ALEX Administration Lisinopril 10 mg 11/29/22 17:00 11/30/22 10:06 Lisinopril 10 Mg Tablet PO 10 mg BID ALEX Administration Ondansetron HCl 4 mg 11/24/22 17:54 Ondansetron Inj 4 Mg/2 Ml Vial IV PUSH Q4H PRN Nausea Polyethylene G
[2022-11-30] MEDS: SEVELAMER CARBONATE 800 MG TABLET 1600 MG PO ×2 (12:30→18:10)
[2022-11-30 16:23] LABS: Glucose Point of Care 148 mg/dl (65-105)
[2022-12-01] MEDS: metroNIDAZOLE 500 MG/ISO 100ML 500 MG/100 ML BAG 100 MG IVPB ×3 (00:21→15:37)
[2022-12-01] MEDS: hydrALAZINE HCL 20 MG/ML VIAL 10 MG IV PUSH ×2 (00:21→05:11)
[2022-12-01 04:00] VITALS: BP 171/97; PULSE 90; RESP 20; TEMP 36.4; O2SAT 95
[2022-12-01 06:14] LABS: Basophils Absolute Auto 0.1 K/mm3 (0.0-0.1); Basophils Percent Auto 0.5 % (0.2-1.2); Eosinophils Absolute Auto 0.2 K/mm3 (0-0.3); Eosinophils Percent Auto 2.1 % (0-4.4); Hematocrit 30.3 % (42.0-52.0); Hemoglobin 9.7 g/dL (14.0-18.0); Lymphocytes Absolute Auto 1.65 K/mm3 (0.9-3.2); Lymphocytes Percent Auto 16.5 % (18.3-44.2); Mean Corpuscular Hemoglobin 29.8 pg (26-34); Mean Corpuscular Volume 92.9 fl (80-100); Mean Platelet Volume 9.6 fl (7.4-10.4); Monocytes Percent Auto 9.5 % (2.6-8.5); Neutrophils Percent Auto 70.4 % (45.5-73.1); Platelet Count Result 236 k/mm3 (150-375); Red Blood Count 3.26 M/mm3 (4.6-6.20); Red Cell Distribution Width 13.7 % (11.5-14.5)
[2022-12-01 06:39] LABS: Alanine Aminotransferase 10 U/L (6-50); Albumin Level 2.9 g/dL (3.5-5.1); Alkaline Phosphatase 83 U/L (38-126); Anion Gap 8 mmol/L (8-16); Aspartate Amino Transferase 13 U/L (17-59); Bilirubin,Total 0.4 mg/dL (0.2-1.3); Blood Urea Nitrogen 37 mg/dL (9-20); Carbon Dioxide 28 mmol/L (22-30); Chloride 98 mmol/L (98-107); Estimated CRCL calculation 9 ml/min; Estimated Glomerular Filt Rate 6; Glucose 91 mg/dL (65-110); Magnesium 1.9 mg/dL (1.6-2.3); Potassium 3.6 mmol/L (3.4-5.0); Sodium 134 mmol/L (137-145)
[2022-12-01 08:00] VITALS: BP 153/82; PULSE 90; RESP 16; TEMP 36.2; O2SAT 96
[2022-12-01 08:03] LABS: Glucose Point of Care 93 mg/dl (65-105)
[2022-12-01] MEDS: FAMOTIDINE 20 MG TABLET 40 MG PO (08:29)
[2022-12-01] MEDS: ASPIRIN 81 MG CHEWABLE TABLET PO (08:29)
[2022-12-01 08:30] VITALS: PULSE 90
[2022-12-01] MEDS: polyethylene glycoL 3350 17 GM POWD.PACK PO (08:30)
[2022-12-01] MEDS: lisinopriL 10 MG TABLET PO (08:30)
[2022-12-01] MEDS: LABETALOL HCL 100 MG TABLET 200 MG PO (08:30)
[2022-12-01] MEDS: GABAPENTIN 300 MG CAPSULE 900 MG PO (08:30)
[2022-12-01] MEDS: SEVELAMER CARBONATE 800 MG TABLET 1600 MG PO ×2 (08:30→12:47)
[2022-12-01] MEDS: VENLAFAXINE HCL 75 MG TABLET BY MOUTH (08:31)
[2022-12-01] MEDS: SENNA/DOCUSATE SODIUM TABLET 2 TAB PO (08:31)
[2022-12-01] MEDS: VENLAFAXINE HCL 25 MG TABLET BY MOUTH (08:31)
--- NOTE | 2022-12-01 10:15 | PM.IMPN ---
Progress Note: A&P Assessment and Plan (1) Osteomyelitis of foot, right, acute: Code(s): M86.171 - Other acute osteomyelitis, right ankle and foot Status: Acute Assessment and Plan: POD 3 Foot xray Plantar soft tissue ulceration of the distal foot. Otherwise chronic findings without acute osseous abnormality identified. 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 Patient underwent debridement of the right foot 11/25/22. Wound care consulted. Weight bearing stat non-weight bearing Splint in place, c/d/i. Plan for removal and likely wound VAC placement on 12/01/22. Discussed with ID pharmacist regarding antibiotics for patient. Tentative plan to transition patient to oral antibiotics in the next day or 2. Recommended antibiotics include doxycycline and Flagyl. (2) Sepsis: Code(s): A41.9 - Sepsis, unspecified organism Status: Acute Assessment and Plan: SIRS criteria met with fever, leukocytosis, tachycardia, with a source of infection. Source of infection is the foot ulcer on the right foot Foot xray Plantar soft tissue ulceration of the distal foot. Otherwise chronic findings without acute osseous abnormality identified. 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 Blood and urine cultures no growth to date. Wound culture grew Prevotella and MRSA De-escalate antibiotics (3) End stage renal disease: Code(s): N18.6 - End stage renal disease Status: Chronic Assessment and Plan: Nephrology has been consulted. Continue dialysis as indicated Current BUN/Cr 37/9.20 Trend labs Continue with Renvela (4) Diabetic foot ulcer: Code(s): E11.621 - Type 2 diabetes mellitus with foot ulcer; L97.509 - Non-pressure chronic ulcer of other part of unspecified foot with unspecified severity Status: Acute Assessment and Plan: See above Glucose stable at 108 A1c 5.1 Continue to trend glucose Adjust medications as indicated (5) Essential hypertension: Code(s): I10 - Essential (primary) hypertension Status: Acute Assessment and Plan: BP 171/97 p.r.n. hydralazine resume lisinopril, and labetalol Trend BP adjust therapy as indicated Time Spent With Patient Time: 52 minutes Time with patient: Greater than 35 minutes Subjective Date/time seen: 12/01/22 1015 Interval history: 12/01/22 1015 patient was lying in bed. Patient stated that he does rather sit on the bedside belly eats. He would like to be more active. He denies any chest pain, shortness a breath, nausea, vomiting, diarrhea, weakness or fatigue. He did state that his pain is about a 2/10. Currently patient is stable. 11/30/22 1030 Patient is laying in bed. He denies any chest pain, shortness of breath, nausea, vomiting, diarrhea, constipation, weakness or fatigue. He did state that he is having a little pain, and currently rated his pain a 2/10. He appears to feel well. He can move his feet and legs. 11/29/22 Patient very drowsy when being interviewed. Patient unable to answer any questions. Patient did states that he was having right foot pain other than that he was unable to stay focused answer any more questions. 11/28/22? 15:10 Patient postop day 0 right transmetatarsal amputation.? Pt was seen post op and patient was able to be awoken but would not stay awake long enough to answer questions.? 11/27/22? 13:01 Patient resting in bed comfortably.? Patient has no new complaints.? Denies foot pain, fevers, nausea, vomiting, chest pain, shortness a breath and l
--- NOTE | 2022-12-01 10:15 | P.PNIM_ITS ---
Progress Note: A&P Assessment and Plan (1) Osteomyelitis of foot, right, acute: Code(s): M86.171 - Other acute osteomyelitis, right ankle and foot Status: Acute Assessment and Plan: * POD 3 * Foot xray Plantar soft tissue ulceration of the distal foot. Otherwise chronic findings without acute osseous abnormality identified. 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 * Patient underwent debridement of the right foot 11/25/22. * Wound care consulted. * Weight bearing stat non-weight bearing * Splint in place, c/d/i. Plan for removal and likely wound VAC placement on 12/01/22. * Discussed with ID pharmacist regarding antibiotics for patient. Tentative plan to transition patient to oral antibiotics in the next day or 2. Recommended antibiotics include doxycycline and Flagyl. (2) Sepsis: Code(s): A41.9 - Sepsis, unspecified organism Status: Acute Assessment and Plan: * SIRS criteria met with fever, leukocytosis, tachycardia, with a source of infection. * Source of infection is the foot ulcer on the right foot * Foot xray Plantar soft tissue ulceration of the distal foot. Otherwise chronic findings without acute osseous abnormality identified. 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 * Blood and urine cultures no growth to date. * Wound culture grew Prevotella and MRSA * De-escalate antibiotics (3) End stage renal disease: Code(s): N18.6 - End stage renal disease Status: Chronic Assessment and Plan: * Nephrology has been consulted. * Continue dialysis as indicated * Current BUN/Cr 37/9.20 * Trend labs * Continue with Renvela (4) Diabetic foot ulcer: Code(s): E11.621 - Type 2 diabetes mellitus with foot ulcer; L97.509 - Non-pressure chron ic ulcer of other part of unspecified foot with unspecified severity Status: Acute Assessment and Plan: * See above * Glucose stable at 108 * A1c 5.1 * Continue to trend glucose * Adjust medications as indicated (5) Essential hypertension: Code(s): I10 - Essential (primary) hypertension Status: Acute Assessment and Plan: * BP 171/97 * p.r.n. hydralazine * resume lisinopril, and labetalol * Trend BP * adjust therapy as indicated Time Spent With Patient Time: 52 minutes Time with patient: Greater than 35 minutes Subjective Date/time seen: 12/01/22 1015 Interval history: 12/01/22 1015 patient was lying in bed. Patient stated that he does rather sit on the bedside belly eats. He would like to be more active. He denies any chest pain, shortness a breath, nausea, vomiting, diarrhea, weakness or fatigue. He did state that his pain is about a 2/10. Currently patient is stable. 11/30/22 1030 Patient is laying in bed. He denies any chest pain, shortness of breath, nausea, vomiting, diarrhea, constipation, weakness or fatigue. He did state that he is having a little pain, and currently rated his pain a 2/10. He appears to feel well. He can move his feet and legs. 11/29/22 Patient very drowsy when being interview
--- NOTE | 2022-12-01 10:30 | PM.DS ---
DS: Admitting Diagnosis Discharge Date 12/01/22 1030 Admitting Diagnosis Osteomyelitis of the right foot. DS: Discharge Diagnosis Discharge Diagnosis (1) Osteomyelitis of foot, right, acute: Code(s): M86.171 - Other acute osteomyelitis, right ankle and foot Status: Acute Assessment and Plan: POD 3 Foot xray Plantar soft tissue ulceration of the distal foot. Otherwise chronic findings without acute osseous abnormality identified. 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 Patient underwent debridement of the right foot 11/25/22. Wound care consulted. Weight bearing stat non-weight bearing Splint in place, c/d/i. Plan for removal and likely wound VAC placement on 12/01/22. Discussed with ID pharmacist regarding antibiotics for patient. Tentative plan to transition patient to oral antibiotics in the next day or 2. Recommended antibiotics include doxycycline and Flagyl. (2) Sepsis: Code(s): A41.9 - Sepsis, unspecified organism Status: Acute Assessment and Plan: SIRS criteria met with fever, leukocytosis, tachycardia, with a source of infection. Source of infection is the foot ulcer on the right foot Foot xray Plantar soft tissue ulceration of the distal foot. Otherwise chronic findings without acute osseous abnormality identified. 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 Blood and urine cultures no growth to date. Wound culture grew Prevotella and MRSA De-escalate antibiotics (3) End stage renal disease: Code(s): N18.6 - End stage renal disease Status: Chronic Assessment and Plan: Nephrology has been consulted. Continue dialysis as indicated Current BUN/Cr 37/9.20 Trend labs Continue with Renvela (4) Diabetic foot ulcer: Code(s): E11.621 - Type 2 diabetes mellitus with foot ulcer; L97.509 - Non-pressure chronic ulcer of other part of unspecified foot with unspecified severity Status: Acute Assessment and Plan: See above Glucose stable at 108 A1c 5.1 Continue to trend glucose Adjust medications as indicated (5) Essential hypertension: Code(s): I10 - Essential (primary) hypertension Status: Acute Assessment and Plan: BP 171/97 p.r.n. hydralazine resume lisinopril, and labetalol Trend BP adjust therapy as indicated DS: Summary Hospital Course Hospital Course: Patient is a 57-year-old male with a past medical history end-stage renal disease, CVA, CABG x4, hypertension who presented to the ED with complaints infected ulcer on his right foot. Patient did note upon admission that he has had a fever of up to 102?. White count admission was 12.6 patient stable. Potassium is 5.1 also stable orthopedics was consulted and took patient to the OR for debridement and amputation. MRI showed multiple areas of osteomyelitis. Patient was started on IV cefepime, vancomycin, Flagyl. Wound cultures did grow Prevotella and MRSA and patient was deescalated to vancomycin and Flagyl. Patient is currently non weight bearing. He does have a splint on. Currently he denies any chest pain, shortness of breath, nausea, vomiting, diarrhea, weakness or fatigue. He stated that the pain in his foot is about a 2. A1c was stable at 5.1. Patient initially meet sepsis criteria with leukocytosis, tachycardia, fever, and a source of infection. Nephrology was consulted and has been managing his peritoneal dialysis. BUN/Cr has been stable at 37/9.20. BP has been a bit borderline, and medications have been adjusted. He denies any chest pain, shortness of b
--- NOTE | 2022-12-01 10:30 | P.DS_ITS ---
DS: Admitting Diagnosis Discharge Date 12/01/22 1030 Admitting Diagnosis Osteomyelitis of the right foot. DS: Discharge Diagnosis Discharge Diagnosis (1) Osteomyelitis of foot, right, acute: Code(s): M86.171 - Other acute osteomyelitis, right ankle and foot Status: Acute Assessment and Plan: * POD 3 * Foot xray Plantar soft tissue ulceration of the distal foot. Otherwise chronic findings without acute osseous abnormality identified. 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 * Patient underwent debridement of the right foot 11/25/22. * Wound care consulted. * Weight bearing stat non-weight bearing * Splint in place, c/d/i. Plan for removal and likely wound VAC placement on 12/01/22. * Discussed with ID pharmacist regarding antibiotics for patient. Tentative plan to transition patient to oral antibiotics in the next day or 2. Recommended antibiotics include doxycycline and Flagyl. (2) Sepsis: Code(s): A41.9 - Sepsis, unspecified organism Status: Acute Assessment and Plan: * SIRS criteria met with fever, leukocytosis, tachycardia, with a source of infection. * Source of infection is the foot ulcer on the right foot * Foot xray Plantar soft tissue ulceration of the distal foot. Otherwise chronic findings without acute osseous abnormality identified. 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 * Blood and urine cultures no growth to date. * Wound culture grew Prevotella and MRSA * De-escalate antibiotics (3) End stage renal disease: Code(s): N18.6 - End stage renal disease Status: Chronic Assessment and Plan: * Nephrology has been consulted. * Continue dialysis as indicated * Current BUN/Cr 37/9.20 * Trend labs * Continue with Renvela (4) Diabetic foot ulcer: Code(s): E11.621 - Type 2 diabetes mellitus with foot ulcer; L97.509 - Non-pressure chronic ulcer of other part of unspecified foot with unspecified severity Status: Acute Assessment and Plan: * See above * Glucose stable at 108 * A1c 5.1 * Continue to trend glucose * Adjust medications as indicated (5) Essential hypertension: Code(s): I10 - Essential (primary) hypertension Status: Acute Assessment and Plan: * BP 171/97 * p.r.n. hydralazine * resume lisinopril, and labetalol * Trend BP * adjust therapy as indicated DS: Summary Hospital Course Hospital Course: Patient is a 57-year-old male with a past medical history end-stage renal disease, CVA, CABG x4, hypertension who presented to the ED with complaints infected ulcer on his right foot. Patient did note upon admission that he has had a fever of up to 102?. White count admission was 12.6 patient stable. Potassium is 5.1 also stable orthopedics was consulted and took patient to the OR for debridement and amputation. MRI showed multiple areas of osteomyelitis. Patient was started on IV cefepime, vancomycin, Flagyl. Wound cultures did grow Prevotella and MRSA and patient was deescalated to vancomycin and Flagyl. Patient is currently non weight bearing. He does have a splint on. Waldemar
[2022-12-01 11:59] LABS: Glucose Point of Care 129 mg/dl (65-105)
[2022-12-01 12:00] VITALS: BP 97/62; PULSE 74; RESP 16; TEMP 35.9; O2SAT 99
--- NOTE | 2022-12-01 12:33 | PM.PNNEP ---
Progress Note: A&P Assessment and Plan (1) End stage renal disease: Code(s): N18.6 - End stage renal disease Status: Chronic Assessment and Plan: continue nightly CCPD while hospitalized follow electrolytes, volume status, and clearance (2) Sepsis: Code(s): A41.9 - Sepsis, unspecified organism Status: Acute Assessment and Plan: as noted by fever, leukocytosis, and elevated ESR/CRP blood and would cultures results noted on IV antibiotic therapy source suspected to be #3 follow hemodynamics (3) Diabetic foot ulcer: Code(s): E11.621 - Type 2 diabetes mellitus with foot ulcer; L97.509 - Non-pressure chronic ulcer of other part of unspecified foot with unspecified severity Status: Acute Assessment and Plan: suspected to be source for #2 Orthopedic recommendations noted MRI results noted local wound care s/p right TMA (on 11/28/22) (4) Essential hypertension: Code(s): I10 - Essential (primary) hypertension Status: Acute Assessment and Plan: erratically erratic by history and outpatient records increased lisinopril to bid dosing and added oral labetalol suspect will need to place parameters for medications as I have done in the past follow trend of hemodynamics Will continue to follow. Subjective Date/time seen: 12/01/22 12:33 Overall, seems to be doing relatively well; CCPD treatments going well overnight; as noted both here in hospital and home records, BP remains quite erratic at this time; otherwise, no apparent distress voiced; no issues/events overnight or earlier this AM. Exam Narrative: General: WD/WN male in NAD Heart: normal S1 and S2; no rub Lungs: clear anteriorly Abdomen: soft, nontender, nondistended, positive bowel sounds Extremities: no cyanosis or clubbing; left foot deformity noted Skin: dressings on right foot present Objective Data Vital Signs Vital Signs: Vital Signs Temp Pulse Resp BP Pulse Ox 12/01/22 12:00 96.7 F L 74 16 97/62 L 99 12/01/22 08:30 90 12/01/22 08:00 97.2 F L 90 16 153/82 H 96 12/01/22 04:00 97.5 F L 90 20 171/97 H 95 11/30/22 23:56 97.1 F L 74 22 H 174/98 H 99 11/30/22 20:00 97.5 F L 78 20 138/69 94 11/30/22 16:00 97.3 F L 78 14 130/92 H 98 Intake/Output Intake/Output: Intake & Output 11/28/22 11/29/22 11/30/22 12/01/22 23:59 23:59 23:59 23:59 Intake Total 1290 1120 2042 680 Output Total 600 435 125 300 Balance 850 454 5908 380 Meds/Results Medications: Active Medications Generic Name Dose Route Start Last Admin Trade Name Freq PRN Reason Stop Dose Admin Acetaminophen 650 mg 11/24/22 17:54 Acetaminophen 325 Mg Tablet PO Q4H PRN Mild Pain (1-3) or Fever Aspirin 81 mg 11/25/22 09:00 12/01/22 08:29 Aspirin 81 Mg Chewable Tablet PO 81 mg DAILY ALEX Administration Calcitriol 0.5 mcg 11/25/22 09:00 11/30/22 10:07 Calcitriol 0.25 Mcg Capsule PO 0.5 mcg [id number] ALEX Administration Famotidine 40 mg 11/24/22 23:05 12/01/22 08:29 Famotidine 20 Mg Tablet PO 40 mg Q12HR ALEX Administration Gabapentin 900 mg 11/24/22 23:05 12/01/22 08:30 Gabapentin 300 Mg Capsule PO 900 mg Q12HR ALEX Administration Hydralazine HCl 10 mg 11/25/22 22:46 12/01/22 05:11 Hydralazine Hcl 20 Mg/Ml Vial IV PUSH 10 mg Q4H PRN Administration Blood Pressure - High Metronidazole 500 mg in 100 mls @ 100 mls/hr 11/25/22 00:00 12/01/22 08:27 Flagyl 500 Mg/Iso Soln 100 Ml IVPB 100 mls/hr Q8H ALEX Administration Vancomycin HCl 1,250 mg in 250 mls @ 200 mls/hr 11/24/22 21:10 Vancomycin 1,250 Mg/D5w 250 Ml IVPB PRN PRN Kinetics Consult Labetalol HCl 200 mg 11/30/22 09:00 12/01/22 08:30 Labetalol Hcl 100 Mg Tablet PO 200 mg Q12HR ALEX Administration Lisinopril 10 mg 11/29/22 17:00 12/01/22 08:30 Lisinopril 10 Mg Tablet
--- NOTE | 2022-12-01 12:33 | P.PNNP_ITS ---
Progress Note: A&P Assessment and Plan (1) End stage renal disease: Code(s): N18.6 - End stage renal disease Status: Chronic Assessment and Plan: * continue nightly CCPD while hospitalized * follow electrolytes, volume status, and clearance (2) Sepsis: Code(s): A41.9 - Sepsis, unspecified organism Status: Acute Assessment and Plan: * as noted by fever, leukocytosis, and elevated ESR/CRP * blood and would cultures results noted * on IV antibiotic therapy * source suspected to be #3 * follow hemodynamics (3) Diabetic foot ulcer: Code(s): E11.621 - Type 2 diabetes mellitus with foot ulcer; L97.509 - Non-pressure chronic ulcer of other part of unspecified foot with unspecified severity Status: Acute Assessment and Plan: * suspected to be source for #2 * Orthopedic recommendations noted * MRI results noted * local wound care * s/p right TMA (on 11/28/22) (4) Essential hypertension: Code(s): I10 - Essential (primary) hypertension Status: Acute Assessment and Plan: * erratically erratic by history and outpatient records * increased lisinopril to bid dosing and added oral labetalol * suspect will need to place parameters for medications as I have done in the past * follow trend of hemodynamics Will continue to follow. Subjective Date/time seen: 12/01/22 12:33 Overall, seems to be doing relatively well; CCPD treatments going well overnight; as noted both here in hospital and home records, BP remains quite erratic at this time; otherwise, no apparent distress voiced; no issues/events overnight or earlier this AM. Exam Narrative: General: WD/WN male in NAD Heart: normal S1 and S2; no rub Lungs: clear anteriorly Abdomen: soft, nontender, nondistended, positive bowel sounds Extremities: no cyanosis or clubbing; left foot deformity noted Skin: dressings on right foot present Objective Data Vital Signs Vital Signs: Vital Signs Temp Pulse Resp BP Pulse Ox 12/01/22 12:00 96.7 F L 74 16 97/62 L 99 12/01/22 08:30 90 12/01/22 08:00 97.2 F L 90 16 153/82 H 96 12/01/22 04:00 97.5 F L 90 20 171/97 H 95 11/30/22 23:56 97.1 F L 74 22 H 174/98 H 99 11/30/22 20:00 97.5 F L 78 20 138/69 94 11/30/22 16:00 97.3 F L 78 14 130/92 H 98 Intake/Output Intake/Output: Intake & Output 11/28/22 11/29/22 11/30/22 12/01/22 23:59 23:59 23:59 23:59 Intake Total 1290 1120 2042 680 Output Total 600 435 125 300 Balance 067 545 7551 380 Meds/Results Medications: Active Medications Generic Name Dose Route Start Last Admin Trade Name Freq PRN Reason Stop Dose Admin Acetaminophen 650 mg 11/24/22 17:54 Acetaminophen 325 Mg Tablet PO Q4H PRN Mild Pain (1-3) or Fever Aspirin 81 mg 11/25/22 09:00 12/01/22 08:29 Aspirin 81 Mg Chewable Tablet PO 81 mg DAILY ALEX Administration Calcitriol 0.5 mcg 11/25/22 09:00 11/30/22 10:07 Calcitriol 0.25 Mcg Capsule PO 0.5 mcg [id number]@0900 ALEX Administration Famotidine 40 mg 11/24/22 23:05 12/01/22 08:29 Famotidine 20 Mg Tablet PO 40
--- NOTE | 2022-12-01 13:28 | PM.PNORT ---
Progress Note: A&P Assessment and Plan (1) Osteomyelitis of foot, right, acute: Code(s): M86.171 - Other acute osteomyelitis, right ankle and foot Status: Acute Assessment and Plan: POD #3: Right TMA Wound cultures from 2/3 with MRSA. Pathology from surgery still pending. Splint removed, incision well approximated. Begin daily dressing changes. Family educated on dressing changes. Elevate. PWB with fracture boot. IV antibiotics. Plan to possibly transition to oral antibiotics per pharm ID; defer antibiotic decision to the medicine service and pharm ID. Dispo: Okay to dc from orthopedic standpoint when medically cleared. Follow up scheduled in the outpatient wound clinic in 2 weeks. 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 (4) Unspecified open wound, left foot, initial encounter: Code(s): S91.302A - Unspecified open wound, left foot, initial encounter Status: Acute Subjective Subjective Date/Time Seen: 12/01/22 13:28 Post Op day: 3 Interval history: POD #3: Right transmetatarsal amputation Patient resting comfortably. No new concerns regarding right foot today. Pain well controlled. Review of Systems Review of Systems: All systems reviewed & are unremarkable except as noted in HPI and below Exam Const: General: comfortable and no acute distress Resp: Effort & Inspection: normal respiratory effort Skin: Wounds: wounds noted Extrem: Other: Splint right foot removed. Incision well approximated. Scant drainage. Skin appears viable. Surrounding tissue without erythema. Psych: Mental Status: mental status grossly normal Objective Data Vital Signs Vital Signs: Vital Signs - 24 hr 11/30/22 14:00 11/30/22 15:05 11/30/22 16:00 Temperature 36.0 C L 36.3 C L Pulse Rate 82 78 Respiratory Rate 16 14 Blood Pressure 154/70 H 170/100 H 130/92 H Pulse Oximetry 98 Oxygen Delivery Room Air 11/30/22 20:00 11/30/22 23:56 12/01/22 04:00 Temperature 36.4 C L 36.2 C L 36.4 C L Pulse Rate 78 74 90 Respiratory Rate 20 22 H 20 Blood Pressure 138/69 174/98 H 171/97 H Pulse Oximetry 94 99 95 Oxygen Delivery 12/01/22 08:00 12/01/22 08:30 12/01/22 12:00 Temperature 36.2 C L 35.9 C L Pulse Rate 90 90 74 Respiratory Rate 16 16 Blood Pressure 153/82 H 97/62 L Pulse Oximetry 96 99 Oxygen Delivery Intake/Output Intake/Output: Intake & Output 11/28/22 11/29/22 11/30/22 12/01/22 23:59 23:59 23:59 23:59 Intake Total 1290 1120 2042 560 Output Total 600 435 125 300 Balance 361 468 5267 260 Meds/Results Medications: Active Medications Generic Name Dose Route Start Last Admin Trade Name Freq PRN Reason Stop Dose Admin Acetaminophen 650 mg 11/24/22 17:54 Acetaminophen 325 Mg Tablet PO Q4H PRN Mild Pain (1-3) or Fever Aspirin 81 mg 11/25/22 09:00 12/01/22 08:29 Aspirin 81 Mg Chewable Tablet PO 81 mg DAILY ALEX Administration Calcitriol 0.5 mcg 11/25/22 09:00 11/30/22 10:07 Calcitriol 0.25 Mcg Capsule PO 0.5 mcg [id number]@0900 ALEX Administration Famotidine 40 mg 11/24/22 23:05 12/01/22 08:29 Famotidine 20 Mg Tablet PO 40 mg Q12HR ALEX Administration Gabapentin 900 mg 11/24/22 23:05 12/01/22 08:30 Gabapentin 300 Mg Capsule PO 900 mg Q12HR ALEX Admini
[2022-12-01 14:15] VITALS: BP 128/68
[2022-12-01 16:00] VITALS: BP 122/78; PULSE 80; RESP 14; TEMP 36.1; O2SAT 94
== END 2022-12-01 17:10 | disposition home health service (06) | DRG 853 ==
LOC: ANHED 15:02 → ANH3MEDSUR 19:58
PROVIDERS: Emergency Medicine; Internal Medicine Critical Care Medicine; Internal Medicine Nephrology; Nurse Practitioner; Orthopaedic Surgery; Admitting Provider Internal Medicine; Emergency Provider Emergency Medicine; PCP Family Medicine; Visit Provider Nurse Practitioner
PROC: 0Y6M0Z9 Detachment at Right Foot, Partial 1st Ray, Open Approach (ICD-10-PCS; principal; 2022-11-28 15:00)
DX: A41.9 Sepsis, unspecified organism (principal); N18.6 End stage renal disease; M86.171 Other acute osteomyelitis, right ankle and foot; I50.42 Chronic combined systolic (congestive) and diastolic (congestive) heart failure; E87.1 Hypo-osmolality and hyponatremia; I13.2 Hypertensive heart and chronic kidney disease with heart failure and with stage 5 chronic kidney disease, or end stage renal disease; E11.621 Type 2 diabetes mellitus with foot ulcer; L97.514 Non-pressure chronic ulcer of other part of right foot with necrosis of bone; E11.22 Type 2 diabetes mellitus with diabetic chronic kidney disease; B95.62 Methicillin resistant Staphylococcus aureus infection as the cause of diseases classified elsewhere; B96.89 Other specified bacterial agents as the cause of diseases classified elsewhere; I12.9 Hypertensive chronic kidney disease with stage 1 through stage 4 chronic kidney disease, or unspecified chronic kidney disease; K21.9 Gastro-esophageal reflux disease without esophagitis; E78.5 Hyperlipidemia, unspecified; D63.8 Anemia in other chronic diseases classified elsewhere; M19.90 Unspecified osteoarthritis, unspecified site; Z20.822 Contact with and (suspected) exposure to COVID-19; E78.2 Mixed hyperlipidemia; E87.5 Hyperkalemia; E11.319 Type 2 diabetes mellitus with unspecified diabetic retinopathy without macular edema; E11.42 Type 2 diabetes mellitus with diabetic polyneuropathy; K44.9 Diaphragmatic hernia without obstruction or gangrene; I69.322 Dysarthria following cerebral infarction; Z95.1 Presence of aortocoronary bypass graft; Z79.01 Long term (current) use of anticoagulants; Z86.16 Personal history of COVID-19; Z99.2 Dependence on renal dialysis; Z95.2 Presence of prosthetic heart valve; Z87.891 Personal history of nicotine dependence; Z89.412 Acquired absence of left great toe
CPT/HCPCS: 36415; 70450; 71046; 73630; 73718; 80053; 80202; 81001; 82948; 83036; 83605; 83735; 84100; 85025; 85652; 86140; 86705; 86706; 87040; 87070; 87075; 87076; 87147; 87185; 87186; 87205; 87340; 87637; 88307; 89051; 90945; 93005; 96365; 97161; 97165; 97530; 97535; 99285; A9270; J0360; J0692; J2250; J2270; J2405; J2704; J3010; J3370; J7030; J7120; L2116

== ENCOUNTER 2023-01-11 08:13 | Outpatient (CLI) | payer OTHER, MEDICARE, SELFPAY ==
--- NOTE | ~2023-01-11 | US_ITS ---
EXAMINATION: US art doppler w press LE BI DATE: 01/11/2023 10:13 INDICATION: Foot wounds with prior amputations of the lateral great toes. Assess circulation to the l ower extremities. TECHNIQUE: Segmental pressures and plethysmographic and Doppler waveforms of the brachial and lower e xtremity arteries were obtained. COMPARISON: None. FINDINGS: Right and left brachial artery pressures of 221 mm Hg and 212 mm Hg, respectively, are concordant (no rmal difference <= 30 mmHg). The right and left high-thigh pressure indices are unable to be obtained due to inability to occlude the vessels. The right ankle-brachial index (CYNTHIA) is 0.76 (normal >= 0.9-1). The right great toe-brachial index (T BI) was unable to be obtained due to prior amputation of the great toe. The right nxcfl-sli-[id number] popl iteal artery was unable to be occluded. There is increased pressure gradient between the right dorsal is pedis and posterior tibial arteries (normal gradients <= 20-30 mmHg between adjacent levels on the same leg or the same levels on the two legs). Biphasic waveforms with brisk systolic upstrokes in th e right common femoral and superficial femoral arteries. Waveforms are difficult to distinguish from the background noise in the right popliteal, posterior tibial and dorsalis pedis arteries but appear to demonstrate parvus and tardus waveforms with broadened systolic peaks with delayed upstrokes in th e right popliteal and posterior tibial arteries and nearly aphasic flow in the right dorsalis pedis a rtery. The left CYNTHIA is unable to be obtained due to inability to occlude the vessels throughout the left low er limb including at the left ankle. The left TBI is unable to be obtained due to prior left great to e amputation. Arterial waveforms are biphasic with brisk systolic upstrokes throughout the arteries o f the left lower limb. IMPRESSION: 1. Arterial occlusive disease to the right lower limb with mild to moderately decreased right CYNTHIA) of tardus waveforms at the below the right popliteal artery. 2. No arterial pressures unable be left lower limb due to inability to occlude the vessels at and abo ve the ankle and absent left great toe. There are however biphasic waveforms with brisk systolic upst rokes throughout the arteries of the left lower limb. 2. Hypertension with right brachial artery systolic pressure of 221 mm Hg. Reviewed, dictated and finalized at location A. IMPRESSION: 1. Arterial occlusive disease to the right lower limb with mild to moderately d ecreased right CYNTHIA) of tardus waveforms at the below the right popliteal artery . 2. No arterial pressures unable be left lower limb due to inability to occlude the vessels at and above the ankle and absent left great toe. There are however biphasic waveforms with brisk systolic upstrokes throughout the arteries of th e left lower limb. 2. Hypertension with right brachial artery systolic pressure of 221 mm Hg.
== END 2023-01-11 08:14 | disposition home or self-care (01) ==
PROVIDERS: PCP Family Medicine; Visit Provider Nurse Practitioner Family
DX: E11.621 Type 2 diabetes mellitus with foot ulcer (principal); I73.9 Peripheral vascular disease, unspecified; L97.509 Non-pressure chronic ulcer of other part of unspecified foot with unspecified severity; L97.514 Non-pressure chronic ulcer of other part of right foot with necrosis of bone; M86.171 Other acute osteomyelitis, right ankle and foot
CPT/HCPCS: 73630; 93923

== ENCOUNTER 2023-01-12 01:09 | Day surgery (SDC) | payer OTHER, MEDICARE, SELFPAY ==
[2023-01-10 15:17] VITALS: BMI 27.4
--- NOTE | 2023-01-10 15:26 | PC.NURSE ---
Report to the Outpatient Waiting Room, entrance under the green pavilion located off [facility], at time 1100 on date 01/12/23. Planned Procedure Time: 1300. Time changes happen often and if your time is changed the preop area will call you the afternoon before. - You and your visitor will be asked to self-screen and do not enter if you have any COVID symptoms. - Only one visitor is requested with a max of two and NO children visitors are allowed at this time. - The patient visitor may be requested to leave or wait in car when not with patient due to distancing restrictions. - A mask is optional within the hospital at this time. Patients may have clear liquids (water, carbonated beverages, clear teas, apple juice) until 3 hours prior to surgery with a maximum of 20 ounces. - No food from midnight until time of surgery Take the following medications with a SIP of water the morning of surgery: GABAPENTIN, LABETALOL, VENLAFAXINE, PAIN PILL IF NEEDED DO NOT STOP ANY OF YOUR OTHER PRESCRIPTION MEDICATIONS PRIOR TO SURGERY EXCEPT THE FOLLOWING Medications to discontinue per physician: ASPIRIN Date to take last dose: PER DR. MCCAULEY Please no make-up, nail senegalese, hairspray, perfume, deodorant, or body powder the day of surgery. No jewelry (including any body piercings) or valuables the day of surgery, leave them at home. Please take a shower or bath the night before, or the morning of, surgery with an antibacterial soap. Wear comfortable, loose fitting clothing. - Jewelry must be removed prior to entering the operating room. Rings and piercings that are not removed may be cut off. - The hospital will not accept responsibility for valuables. - Please leave all valuables, including medications, at home the day of surgery. If you are going home after surgery, a licensed semi driver must drive you home. - NO public transportation without another adult if you receive anesthesia. - We recommend that an adult stay with you for 24 hours following discharge. - We also recommend that you do not drive, make important decision, drink alcoholic beverages, or take any drugs that were not prescribed by your health care provider for at least 24 hours after your discharge time. Follow any additional instructions given to you from your surgeon. If you or anyone in your household have experienced Covid symptoms in the past week, please notify your surgeon or the nurse liaison at the phone number below for possible testing. Telephone instructions given to PT & and asked if any additional questions and then verbalized understanding. Patient advised to call surgeon office or pre surgery nurse liaison [phone] if any additional questions.
[2023-01-12] VITALS (8 sets, daily range): BP systolic 134–174; BP diastolic 86–132; PULSE 88–101; RESP 14–20; TEMP 36.3–36.5; O2SAT 97–100
--- NOTE | ~2023-01-12 | XR_ITS ---
EXAMINATION: XR surgery orthopedic DATE: 01/12/2023 13:09 INDICATION: Right foot transmetatarsal amputation. TECHNIQUE: 1 dorsal plantar fluoroscopic spot image of the right forefoot was obtained during procedu re performed by Dr. Whitaker. Radiologist was not present for the imaging or procedure. The amount of fluoroscopy time used during this procedure was 0.2 minutes. COMPARISON: 01/11/2023 FINDINGS: Interval debridement of previously mildly normal-appearing transmetatarsal osteotomy margins at the f irst second fifth metatarsals. The new osteotomies which are now located more proximally at the metad iaphyseal regions appear more sharply defined. Expected postoperative gas in the overlying soft tissu es. IMPRESSION: 1. Fluoroscopy utilized during revision of a right forefoot amputation with new more proximal transme tatarsal osteotomies. Reviewed, dictated and finalized at location A. IMPRESSION: 1. Fluoroscopy utilized during revision of a right forefoot amputation with new more proximal transmetatarsal osteotomies.
--- NOTE | 2023-01-12 08:42 | WPDHPUPDATE1 ---
History and Physical Update Update Date/Time: 01/12/23 08:42 History and Physical has been reviewed, including an updated exam of the patient. There are NO changes in the patient's condition. Risks, benefits, and alternatives have been discussed and questions answered. Patient agrees to proceed with procedure.
--- NOTE | 2023-01-12 11:41 | WPDANESEPPF ---
Anes - Initial Pre Proc Eval Procedure: Operation Date: 01/12/23 13:00 Proposed Procedures p Revision of Transmetatarsal Amputation Right Foot with Graft Application - Jacinto Whitaker MD Date/Time: 01/12/23 11:41 Surgeon: Jacinto Whitaker MD Pre Op Diagnosis: rt transmetatarsal amput,diabetes mellitus w/neuro Patient Data Age: 57 Gender: M Height: 1.79 m Weight: 88 kg Allergies Allergy/AdvReac Type Severity Reaction Status Date / Time No Known Allergies Allergy Verified 01/12/23 11:14 Home Medications Medication Instructions Recorded Confirmed Type calcitriol 0.5 mcg capsule 0.5 mcg PO QMWF 10/20/21 01/10/23 History famotidine 40 mg tablet 40 mg PO Q12H 10/20/21 01/12/23 History gabapentin 300 mg capsule 900 mg PO Q12H 10/20/21 01/12/23 History venlafaxine 100 mg tablet 100 mg PO Q12H 10/20/21 01/12/23 History aspirin 81 mg chewable tablet 81 mg PO DAILY #90 tabs 09/06/22 01/12/23 Rx lisinopril 10 mg tablet 10 mg PO DAILY 09/17/22 01/12/23 History sevelamer carbonate 800 mg tablet 1,600 mg PO TIDWM 11/24/22 01/12/23 History (Renvela) hydrocodone 5 mg-acetaminophen 325 1 tablet PO Q6H PRN pain #20 tabs 12/01/22 01/12/23 Rx mg tablet labetalol 100 mg tablet 200 mg PO Q12HR #120 tabs 12/01/22 01/12/23 Rx Patient hx anesthesia problems: none Family hx anesthesia problems: none Results Review: All pre-operative results and documents have been reviewed as part of the pre-operative evaluation. [facility] Past Medical History Medical History Arthritis Bicuspid aortic valve Severe aortic stenosis status post bioprosthetic aortic valve replacement. Cerebrovascular accident (09/21/20) Thought to be embolic in nature, on long-term anticoagulation. Residual dysarthria. 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 Required temporary dialysis for a few months in spring 2019. Combined systolic and diastolic congestive heart failure Echocardiogram dated 11/03/2020 showed mildly enlarged left ventricular chamber with normal left ventricular systolic function and ejection fraction of 55 to 60% (as low as 35% on previous echos), moderate increased LV wall thickness, grade 3 diastolic dysfunction, and mild mitral and tricuspid valve regurgitation. COVID-19 Diabetes Diabetic foot ulcer Diabetic foot ulcer Dialysis patient Encounter for central line placement End-stage renal disease on peritoneal dialysis Essential hypertension Finger fracture Former smoker 50 pack year smoking history, quit in 1987. Gastroesophageal reflux disease Hiatal hernia History of hemodialysis History of acute kidney injury on chronic kidney disease requiring hemodialysis in 2019. He has had a right IJ temporary dialysis catheter placed in 01/2020 and then a tunneled dialysis catheter in 02/2020, which was removed in 05/2020. History of osteomyelitis Hypertension Impingement syndrome of left shoulder Insulin dependent type 2 diabetes mellitus Complicated by nephropathy, neuropathy, and retinopathy. Mixed hyperlipidemia Non-healing ulcer of foot Osteomyelitis of foot, right, acute Peripheral vascular disease Pneumonia Pneumonia Pneumonia Renal osteodystrophy Surgical History Surgical History Amputation of left great toe (2019) Secondary to osteomyelitis. History of aortic valve replacement (07/24/20) 25 mm Inspiris bioprosthetic valve per Dr. Nam Daniels at [facility]. History of carpal tunnel release History of coronary artery bypass graft x 1 (07/24/20) Saphenous vein graft to obtuse marginal per Dr. Nam Daniels at [facility]. History of tonsillectomy S/P CABG x 1 (~07/24/20) Family History Family History
[2023-01-12] MEDS: ACETAMINOPHEN 500 MG TABLET 1000 MG PO (11:43)
[2023-01-12] MEDS: SODIUM CHLORIDE 0.9% IV 500 ML 30 ML IV CONT (11:43)
[2023-01-12] MEDS: ceFAZolin 2 GM/D5W 50 ML 2 GM/50 ML BAG IVPB (11:53)
--- NOTE | 2023-01-12 12:03 | SUR.PREOP ---
1150- PT BP 160/120 ON ARRIVAL. RETAKE AT 1200 WAS 163/132. DR. BRYANT AND SELF SEALING FUEL TANK BUILDER UPDATED BEFORE PT HEADED TO OR. WILL MONITOR IN OR.
[2023-01-12 12:17] LABS: Anion Gap 7 mmol/L (8-16); Blood Urea Nitrogen 41 mg/dL (9-20); Carbon Dioxide 31 mmol/L (22-30); Chloride 99 mmol/L (98-107); Estimated CRCL calculation 10 ml/min; Estimated Glomerular Filt Rate 7; Glucose 94 mg/dL (65-110); Potassium 4.8 mmol/L (3.4-5.0); Sodium 137 mmol/L (137-145)
[2023-01-12] MEDS: BUPivacaine HCL 0.5% 10 ML AMP 20 ML INFILTRATE (12:45)
--- NOTE | 2023-01-12 13:56 | P.OP_ITS ---
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 Exposed bone now through the wound. Patient presents for operative treatment. Discussed attempt at foot salvage with revision transmetatarsal amputation Description of Procedure Patient identified in the preoperative holding. Informed consent given. Operative extremity marked. Patient received intravenous antibiotics. Patient brought to the operating room where underwent general anesthetic by anesthesia team. Positioned supine on operating room table. Time-out performed confirming the patient, site of the surgery and the plan. right foot prepped draped usual sterile surgical fashion using a Betadine prep solution. There was exposed 1st metatarsal, 4th metatarsal and 5th metatarsal through the wound on the distal aspect of the right foot. 15 blade knife used to make longitudinal incisions over the dorsal medial 1st metatarsal and dorsal lateral 5th metatarsal. The dorsal skin flap was then elevated off of the metatarsals. Sagittal saw was used to transect the 1st, 2nd, 3rd, 4th and 5th metatarsals just distal to the tarsal metatarsal joints. Image intensification confirmed the resection level. The bone ends were removed. Any necrotic tissue or devitalized skin was sharply excised with a 15 blade knife. Hemostasis controlled electrocautery. wound was thoroughly irrigated with saline. The incisions were closed with 0 Prolene interrupted suture. The end of the wound was then loosely closed with 0 Prolene interrupted suture. This left an open area in midportion which measured 5 cm x 2 cm. Graft was then applied to this. 1 g of mitral matrix was mixed on the back table and then applied to the deep wound. A 4 x 3 cm amniotic graft tissue was then placed over the end of the soft tissue. Wound was then covered and closed with bilayer matrix 0 graft skin which was so stapled into place. Sterile dressing applied. The patient was then woken from anesthesia, extubated and taken to the recovery room in stable condition. All sponge, needle, instrument counts were correct at the end of the case. Implants Integra micro matrix 1 g, amnio XL amniotic tissue, bilayer skin graft. Estimated Blood Loss 30 Drains No Packing No Pathology None sent Complications None Condition Stable Disposition PACU [facility] Billing Surgery - Charge Forward: Surgery Billing ([id number], [id number])
--- NOTE | 2023-01-12 15:18 | SUR.PHASEII ---
1510 - pt's b/p 174/[address] kumar called. no orders received at this time.
[2023-01-12 15:32] LABS: Glucose Point of Care 89 mg/dl (65-105)
--- NOTE | 2023-01-13 12:12 | PM.IMHP ---
H&P: HPI History of Present Illness Date/Time: 01/12/23 12:12 Chief Complaint: Right transmetatarsal amputation wound and diabetic foot ulcer Narrative: 57-year-old 6 weeks status post right transmetatarsal amputation for diabetic ulcer and osteomyelitis. Complicated by wound dehiscence and exposed bone. No improvement with wound care and wound VAC. Presents now for operative treatment. Review of Systems Review of Systems: All systems reviewed & are unremarkable except as noted in HPI and below Constitutional: Constitutional: Reports no additional constitutional complaints Eyes: Eyes: Reports no additional eye complaints ENT: Reports system reviewed and no additional complaints, except as documented and Reports Normal hearing present Cardiovascular: Cardiovascular: Reports no additional cardiovascular complaints Respiratory: Respiratory: Reports no additional respiratory complaints and Reports no additional respiratory complaints Gastrointestinal: Gastrointestinal: Reports no additional gastrointestinal complaints Musculoskeletal: Musculoskeletal: Reports no additional musculoskeletal complaints Integumentary/Breasts: Skin/Breast: Reports system reviewed and no additional complaints, except as docu and Reports as per HPI Neurologic: Reports system reviewed and no additional complaints, except as documented, Reports as per HPI and Reports Normal hearing present Psychiatric: Psychiatric: Reports no additional psychiatric complaints and Reports as per HPI Endocrine: Endocrine: Reports no additional endocrine complaints Hematologic/Lymphatic: Hematologic/Lymphatic: Reports no additional hematologic/lymphatic complaints Allergic/Immunologic: Allergic/Immunologic: Reports no additional allergic/immunologic complaints [facility] Past Medical History Medical History Arthritis Bicuspid aortic valve Severe aortic stenosis status post bioprosthetic aortic valve replacement. Cerebrovascular accident (09/21/20) Thought to be embolic in nature, on long-term anticoagulation. Residual dysarthria. 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 Required temporary dialysis for a few months in spring 2019. Combined systolic and diastolic congestive heart failure Echocardiogram dated 11/03/2020 showed mildly enlarged left ventricular chamber with normal left ventricular systolic function and ejection fraction of 55 to 60% (as low as 35% on previous echos), moderate increased LV wall thickness, grade 3 diastolic dysfunction, and mild mitral and tricuspid valve regurgitation. COVID-19 Diabetes Diabetic foot ulcer Diabetic foot ulcer Dialysis patient Encounter for central line placement End-stage renal disease on peritoneal dialysis Essential hypertension Finger fracture Former smoker 50 pack year smoking history, quit in 1987. Gastroesophageal reflux disease Hiatal hernia History of hemodialysis History of acute kidney injury on chronic kidney disease requiring hemodialysis in 2019. He has had a right IJ temporary dialysis catheter placed in 01/2020 and then a tunneled dialysis catheter in 02/2020, which was removed in 05/2020. History of osteomyelitis Hypertension Impingement syndrome of left shoulder Insulin dependent type 2 diabetes mellitus Complicated by nephropathy, neuropathy, and retinopathy. Mixed hyperlipidemia Non-healing ulcer of foot Osteomyelitis of foot, right, acute Peripheral vascular disease Pneumonia Pneumonia Pneumonia Renal osteodystrophy Surgical History Surgical History Amputation of left great toe (2019) Secondary to osteomyelitis. History of aortic valve replacement (07/24/20) 25 mm Inspiris bioprosthetic valve per Dr. Nam Daniels at
== END 2023-01-12 15:22 | disposition home or self-care (01) ==
PROVIDERS: PCP Family Medicine; Visit Provider Orthopaedic Surgery
PROC: (CPT 28805; principal; 2023-01-12 13:00)
DX: T81.31XA Disruption of external operation (surgical) wound, not elsewhere classified, initial encounter (principal); T81.89XA Other complications of procedures, not elsewhere classified, initial encounter; L97.514 Non-pressure chronic ulcer of other part of right foot with necrosis of bone; E11.621 Type 2 diabetes mellitus with foot ulcer; Y83.8 Other surgical procedures as the cause of abnormal reaction of the patient, or of later complication, without mention of misadventure at the time of the procedure; M86.171 Other acute osteomyelitis, right ankle and foot; E11.69 Type 2 diabetes mellitus with other specified complication; E11.42 Type 2 diabetes mellitus with diabetic polyneuropathy; I69.322 Dysarthria following cerebral infarction; I13.2 Hypertensive heart and chronic kidney disease with heart failure and with stage 5 chronic kidney disease, or end stage renal disease; I50.40 Unspecified combined systolic (congestive) and diastolic (congestive) heart failure; E11.22 Type 2 diabetes mellitus with diabetic chronic kidney disease; N18.6 End stage renal disease; Z99.2 Dependence on renal dialysis; D64.9 Anemia, unspecified; E11.51 Type 2 diabetes mellitus with diabetic peripheral angiopathy without gangrene; Z79.4 Long term (current) use of insulin; Z95.2 Presence of prosthetic heart valve; Z95.5 Presence of coronary angioplasty implant and graft; Z95.1 Presence of aortocoronary bypass graft; Z87.891 Personal history of nicotine dependence
CPT/HCPCS: 28805; 15275; 36415; 80048; 82948; 85610; 85730; 99199; A9270; J0690; J2250; J2370; J2704; J3010; J7040; Q4118

== ENCOUNTER 2023-01-16 14:41 | Outpatient (CLI) | payer OTHER, MEDICARE, SELFPAY ==
--- NOTE | ~2023-01-16 | CT_ITS ---
EXAMINATION: CT abdomen pelvis wo con DATE: 01/16/2023 15:07 INDICATION: Abnormal CT scan follow-up TECHNIQUE: Computed tomography (CT) of the abdomen and pelvis was performed without intravenous contr ast. Automated exposure control and iterative reconstruction technique were employed. Exam dose: 102 2.87 mGy-cm total exam DLP. COMPARISON: 09/02/2022 CT abdomen pelvis FINDINGS: Status post sternotomy and aortic valve replacement. Normal heart size. No pericardial or p leural effusion. New mild tree-in-bud infiltrate in the right lower lobe which may be infectious or inflammatory. The lung bases are otherwise clear. Moderate ascites is again noted. Dialysis catheter is present. There is subcutaneous fat stranding shel[place] rrounding the dialysis catheter in the medial left anterior abdominal wall. No hepatic, splenic, pancreatic, and adrenal or renal space-occupying mass lesion is evident on this limited noncontrast examination. There is atherosclerotic calcification of the abdominal aorta, celiac, superior mesenteric, renal art eries and iliac and femoral arteries. No intraperitoneal or retroperitoneal or pelvic mass lesion or lymphadenopathy. There is chronic mode rately prominent bilateral inguinal lymph nodes. Moderate prostate enlargement. There is diffuse thickening of the urinary bladder wall, possibly due to to prostatomegaly, less likely cystitis. Small fat-containing inguinal hernias, right larger than left. No bowel obstruction or intraperitoneal free air. Subacute/chronic sixth and seventh left rib fractures, present on 09/02/2022. Degenerative change at the sacroiliac joints, left greater than right bilateral hip osteoarthritis. IMPRESSION: Chronic left rib fractures Status post aortic valve replacement New tree-in-bud mild infiltrate, right lower lobe since 08/29/2022 Inflammatory changes around the dialysis catheter; moderate ascites Chronic moderately prominent bilateral inguinal lymph nodes Prostate enlargement Reviewed, dictated and finalized at [facility]. Reviewed, dictated and finalized at location B.
== END 2023-01-16 14:42 | disposition home or self-care (01) ==
LOC: ANHIMG 14:49
PROVIDERS: PCP Family Medicine; Visit Provider Physician Assistant
DX: R59.0 Localized enlarged lymph nodes (principal); R93.5 Abnormal findings on diagnostic imaging of other abdominal regions, including retroperitoneum; R91.8 Other nonspecific abnormal finding of lung field; N40.0 Benign prostatic hyperplasia without lower urinary tract symptoms; S22.42XD Multiple fractures of ribs, left side, subsequent encounter for fracture with routine healing; X58.XXXD Exposure to other specified factors, subsequent encounter
CPT/HCPCS: 74176

== ENCOUNTER 2023-01-24 08:07 | Outpatient (RCR) | payer OTHER, MEDICARE, SELFPAY ==
[2022-10-21 00:03] VITALS: BMI 28.0
--- NOTE | 2022-12-16 09:25 | P.PNOP_ITS ---
Progress Note: A&P Assessment and Plan (1) Osteomyelitis of foot, right, acute: Code(s): M86.171 - Other acute osteomyelitis, right ankle and foot Status: Acute Assessment and Plan: 2 weeks, 4 days s/p right TMA Wound cultures from 11/25 with MRSA. Patient on oral antibiotics per medicine team from inpatient hospitalization. Dressing removed today. Wound with dehiscence on the lateral aspect. Most sutures removed. Medial sutures remain in place and functioning well. Wound dehiscence with bone present. Patient would benefit from wound VAC application. May require return to OR for debridement/graft applic ation. Discussed potential for continued poor wound healing and further amputation. Will begin insurance authorization for wound VAC. Patient to begin daily dressing changes with silver rope in the interim. Follow up 1 week. (2) Diabetic foot ulcer: Qualifiers: Diabetic foot ulcer location: other Diabetes mellitus type: type 2 Laterality: right Non-pressure ulcer stage: with necrosis of bone Qualified Co de(s): E11.621 - Type 2 diabetes mellitus with foot ulcer; L97.514 - Non- pressure chronic ulcer of other part of right foot with necrosis of bone Code(s): E11.621 - Type 2 diabetes mellitus with foot ulcer; L97.509 - Non-pressure chronic ulcer of other part of unspecified foot with unspecified severity Status: Acute (3) Sepsis: Code(s): A41.9 - Sepsis, unspecified organism Status: Acute (4) Unspecified open wound, left foot, initial encounter: Code(s): S91.302A - Unspecified open wound, left foot, initial encounter Status: Acute Subjective Subjective Date/Time Seen: 12/16/22 09:25 Interval history: 2 weeks, 4 days s/p Right transmetatarsal amputation. Patient returns to [facility] wound clinic for reevaluation. He is still on oral antibiotics. No new concerns today. Review of Systems Review of Systems: All systems reviewed & are unremarkable except as noted in HPI and below Exam Const: General: comfortable and no acute distress Resp: Effort & Inspection: normal respiratory effort Skin: Wounds: wounds noted Extrem: Other: Dressing removed right foot. Lateral forefoot with incision dehiscence and breakdown of skin. Measures 7.0x2.5x1.0 cm with medial plantar tunneling to 4.7cm. Palpable bone on the plantar aspect of the 4th/5th metatarsals. 100% yellow/slough. Psych: Mental Status: mental status grossly normal Objective Data Meds/Results Medications: Active Medications Generic Name Dose Route Start Last Admin Trade Name Freq PRN Reason Stop Dose Admin Silver 1 each 10/27/22 11:12 Silver Foam Band (Mepilex Ag 4x4) Bandage TOPICAL 12/25/22 23:55 PRN PRN Wound Care Silver Nitrate 1 each 12/16/22 09:00 Aquacel Ag Advantage Bandage (*Bkc) TOPICAL 03/15/23 23:55 PRN PRN Wound Care
--- NOTE | 2022-12-23 13:20 | P.PNOP_ITS ---
Progress Note: A&P Assessment and Plan (1) Osteomyelitis of foot, right, acute: Code(s): M86.171 - Other acute osteomyelitis, right ankle and foot Status: Acute Assessment and Plan: 3 weeks, 4 days s/p right TMA. Wound cultures from 2/3 with MRSA. Patient has finished his course of oral antibiotics as prescribed by the medicine team from inpatient hospitalization. Dressing removed today. Wound with dehiscence on the lateral aspect. All sutures removed. Wound dehiscence with bone present. Patient would benefit from wound VAC application. May require return to OR for debridement/graft application. Discussed potential for continued poor wound healing and further amputation. Wound VAC applied. Detailed education provided to patient's family. He will have [facility] wound care 3x weekly. Follow up in 2 weeks for reevaluation and wound VAC dressing change. 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 - Non- pressure chronic ulcer of other part of right foot with necrosis of bone Code(s): E11.621 - Type 2 diabetes mellitus with foot ulcer; L97.509 - Non-pressure chronic ulcer of other part of unspecified foot with unspecified severity Status: Acute Assessment and Plan: Discussed importance of proper nutrition, diabetic diet and medication compliance for optimal healing. Reviewed signs and symptoms of infection including fever, chills, night sweats, nausea, vomiting, diarrhea, changes to the wound bed or purulent drainage to report to the ED immediately. Patient verbalized understanding. (3) Sepsis: Code(s): A41.9 - Sepsis, unspecified organism Status: Acute (4) Unspecified open wound, left foot, initial encounter: Code(s): S91.302A - Unspecified open wound, left foot, initial encounter Status: Acute Subjective Subjective Date/Time Seen: 12/23/22 13:20 Interval history: 3 weeks, 4 days s/p Right transmetatarsal amputation. Patient returns to [facility] wound clinic for reevaluation and wound VAC application. He has finished his course of antibiotics. No new concerns today. Review of Systems Review of Systems: All systems reviewed & are unremarkable except as noted in HPI and below Exam Const: General: comfortable and no acute distress Resp: Effort & Inspection: normal respiratory effort Skin: Wounds: wounds noted Extrem: Other: Dressing removed right foot. Lateral forefoot with incision dehiscence and breakdown of skin. Measures 10.5x3.0x1.0 cm with medial plantar tunneling to 4.5 cm. Palpable bone on the plantar aspect of the 4th/5th metatarsals. 100% yellow/slough. Psych: Mental Status: mental status grossly normal Objective Data Meds/Results Medications: Active Medications Generic Name Dose Route Start Last Admin Trade Name Freq PRN Reason Stop Dose Admin Silver 1 each 10/27/22 11:12 Silver Foam Band (Mepilex Ag 4x4) Bandage TOPICAL 12/25/22 23:55 PRN PRN Wound Care Silver Nitrate 1 each 12/16/22 09:00 Aquacel Ag Advantage Bandage (*Bkc) TOPICAL 03/15/23 23:55 PRN PRN Wound Care
--- NOTE | 2023-01-06 09:04 | PM.PNORT ---
Subjective Subjective Date/Time Seen: 01/06/23 09:04 Interval history: 5 weeks, 4 days s/p Right transmetatarsal amputation. Patient returns to [facility] wound clinic for reevaluation and wound VAC dressing changed. He has finished his course of antibiotics. No new concerns today. Exam Const: General: comfortable and no acute distress Resp: Effort & Inspection: normal respiratory effort Skin: Wounds: wounds noted Extrem: Other: Dressing removed right foot. Lateral forefoot with incision dehiscence and breakdown of skin. Measures 9.0x3.5x1.4cm with medial plantar tunneling to 4.5 cm. Palpable bone on the plantar aspect of the 4th/5th metatarsals. 100% yellow/slough. Concern for ultimate viability. Patient needs ABIs to determine potential for healing. May benefit from return to OR for debridement vs. further discussion of BKA. Patient will return for evaluation with Dr. Whitaker next week and further discussion of surgical needs vs. referral to vascular surgery. Continue wound VAC dressing changes in the interim. Debridement of the skin, subcutaneous tissue and muscle debrided under sterile conditions with #15 blade knife. All devitalized tissue including muscle removed. Procedure tolerated well. Patient instructed on post-debridement dressing changes. Reviewed signs/symptoms of complications to report to the office. Patient verbalized understanding and agrees with plan of care. Psych: Mental Status: mental status grossly normal Objective Data Meds/Results Medications: Active Medications Generic Name Dose Route Start Last Admin Trade Name Freq PRN Reason Stop Dose Admin Silver Nitrate 1 each 12/16/22 09:00 Aquacel Ag Advantage Bandage (*Bkc) TOPICAL 03/15/23 23:55 PRN PRN Wound Care Debridement/Burn/Wound Pre Procedure Consent was obtained, Procedures/risks were explained, Questions were answered, Correct patient identified and Correct side and site confirmed Episode Return Visit Area was prepped and draped using sterile technique?: Yes Ulcer/Wound Debridement, skin, first 20 sq cm or less: Yes Right (TMA ) Comments:: Debridement of the skin, subcutaneous tissue and muscle debrided under sterile conditions with #15 blade knife. All devitalized tissue including muscle removed. Procedure tolerated well. Patient instructed on post-debridement dressing changes. Reviewed signs/symptoms of complications to report to the office. Patient verbalized understanding and agrees with plan of care. Dressing Applied antibiotic ointment Post Procedure Patient tolerated the procedure well?: Tolerated procedure well
--- NOTE | 2023-01-10 09:08 | P.PNOP_ITS ---
Progress Note: A&P Assessment and Plan (1) Non-healing ulcer of foot: Qualifiers: Laterality: right Non-pressure ulcer stage: with necrosis of bone Qualified Code(s): L97.514 - Non-pressure chronic ulcer of other part of right foot with necrosis of bone Code(s): L97.509 - Non-pressure chronic ulcer of other part of unspecified foot with unspecified severity Status: Acute Assessment and Plan: 6 weeks status post transmetatarsal amputation right foot. Concern for ultimate viability. Patient needs ABIs to determine potential for healing. Test scheduled for tomorrow. Continue with wound VAC in the interim. Discussion with patient and significant other regarding treatment options including foot salvage vs below-knee amputation. Will await results of blood flow study. (2) Osteomyelitis of foot, right, acute: Code(s): M86.171 - Other acute osteomyelitis, right ankle and foot Status: Acute (3) Diabetic foot ulcer: Qualifiers: Diabetic foot ulcer location: other Diabetes mellitus type: type 2 Laterality: right Non-pressure ulcer stage: with necrosis of bone Qualified Code(s): E11.621 - Type 2 diabetes mellitus with foot ulcer; L97.514 - Non- pressure chronic ulcer of other part of right foot with necrosis of bone Code(s): E11.621 - Type 2 diabetes mellitus with foot ulcer; L97.509 - Non-pressure chronic ulcer of other part of unspecified foot with unspecified severity Status: Acute Assessment and Plan: Debridement of the skin, subcutaneous tissue and muscle debrided under sterile conditions with #15 blade knife. All devitalized tissue including muscle removed. Procedure tolerated well. Patient instructed on post-debridement dressing changes. Reviewed signs/symptoms of complications to report to the office. Patient verbalized understanding and agrees with plan of care. Subjective Subjective Date/Time Seen: 01/10/23 09:08 Post Op day: 6wks Principal diagnosis: Right foot osteomyelitis Interval history: 6 weeks right transmetatarsal amputation. Currently with wound VAC due to wound dehiscence and nonhealing. Exam Const: General: comfortable and no acute distress Resp: Effort & Inspection: normal respiratory effort Skin: Wounds: wounds noted Extrem: Other: Dressing removed right foot. Lateral forefoot with incision dehiscence and breakdown of skin. Measures 8.8x3.0x3cm with medial plantar tunneling to 3.5 cm. Palpable bone on the plantar aspect of the 4th/5th metatarsals. 100% yellow/slough. Concern for ultimate viability. Patient needs ABIs to determine potential for healing. Test scheduled for tomorrow. Continue with wound VAC in the interim. Discussion with patient and significant other regarding treatment options including foot salvage vs below-knee amputation. Will await results of blood flow study. Psych: Mental Status: mental status grossly normal Objective Data Meds/Results Medications: Active Medications Generic Name Dose Route Start Last Admin Trade Name Freq PRN Reason Stop Dose Admin Silver Nitrate 1 each 12/16/22 09:00 Aquacel Ag Advantage Bandage (*Bkc) TOPICAL 03/15/23 23:55 PRN PRN Wound Care [facility]illing [facility] Follow-up Hospital Follow-up: 81215 Post-op Follow Up (modifier 58)
--- NOTE | 2023-01-10 09:13 | P.OP_ITS ---
Procedure Note - Detailed Date of Procedure 01/10/23 Pre-op Diagnosis right foot diabetic ulcer Post-op Diagnosis Same Procedure Performed Excisional debridement right foot Surgeon Jacinto Whitaker MD Anesthesia None Indications 57-year-old with right diabetic foot ulcer, nonhealing with wound VAC and wound care. Indicated for debridement. Description of Procedure Informed consent given. Operative extremity identified. Alcohol prep solution. 15 blade knife used to sharply excise skin, subcutaneous tissue and muscle from the right foot wound. Wound measures 9 x 3 cm. Sterile dressing applied Estimated Blood Loss 2 Drains No Packing Yes ( wound VAC foam) Pathology None sent Complications None Condition Stable Disposition Other ( to home) [facility] [place] Billing Surgery - Charge Forward: Surgery Billing ([id number])
--- NOTE | 2023-01-17 09:15 | PM.PNORT ---
Progress Note: A&P Assessment and Plan (1) Non-healing ulcer of foot: Qualifiers: Laterality: right Non-pressure ulcer stage: with necrosis of bone Qualified Code(s): L97.514 - Non-pressure chronic ulcer of other part of right foot with necrosis of bone Code(s): L97.509 - Non-pressure chronic ulcer of other part of unspecified foot with unspecified severity Status: Acute Assessment and Plan: Omnigraft holding in place well. Surrounding tissue with mild swelling but no signs of progressing infection. Will await reapplication of wound VAC at this time. Recommended daily or every other day dressing changes based on drainage. Cover graft with adaptic, ABD pad, kerlex and tape in place. Continue use of fracture boot. Mainly weight bearing on heel. Follow up in 1 week for reevaluation. Will likely reapply wound VAC once graft covering is removed. Goal for graft covering to remain in place x3 weeks from DOS. (2) Osteomyelitis of foot, right, acute: Code(s): M86.171 - Other acute osteomyelitis, right ankle and foot Status: Acute (3) Diabetic foot ulcer: Qualifiers: Diabetic foot ulcer location: other Diabetes mellitus type: type 2 Laterality: right Non-pressure ulcer stage: with necrosis of bone Qualified Code(s): E11.621 - Type 2 diabetes mellitus with foot ulcer; L97.514 - Non-pressure chronic ulcer of other part of right foot with necrosis of bone Code(s): E11.621 - Type 2 diabetes mellitus with foot ulcer; L97.509 - Non-pressure chronic ulcer of other part of unspecified foot with unspecified severity Status: Acute Subjective Subjective Date/Time Seen: 01/17/23 09:15 Interval history: Patient returns to the [facility] wound clinic 7 weeks, 1 day s/p TMA and 5 days s/p revision of TMA and graft application. No new concerns today. Pain well controlled. Denies nausea, vomiting or diarrhea. Review of Systems Review of Systems: All systems reviewed & are unremarkable except as noted in HPI and below Exam Const: General: comfortable and no acute distress Resp: Effort & Inspection: normal respiratory effort Skin: Wounds: wounds noted Extrem: Other: Dressing removed right foot. Revised TMA site covered with Omnigraft stapled in place. Surrounding tissue with some swelling. No redness or warmth. No signs of progressing infection. Mild sanguinous drainage on bandage which was removed. Psych: Mental Status: mental status grossly normal Objective Data Meds/Results Medications: Active Medications Generic Name Dose Route Start Last Admin Trade Name Freq PRN Reason Stop Dose Admin Silver Nitrate 1 each 12/16/22 09:00 Aquacel Ag Advantage Bandage (*Bkc) TOPICAL 03/15/23 23:55 PRN PRN Wound Care Radiology Results: ITS Impressions Foot X-Ray 01/11/23 10:50 IMPRESSION: Status post first through fifth mid metatarsal amputation Extensive calcification, suggesting diabetes 3. Phase radionuclide bone scan would be more sensitive for detection of osteomyelitis
--- NOTE | ~2023-01-24 | XR_ITS ---
XR foot RT min 3V DATE: 01/11/2023 10:24 INDICATION: Right foot infection TECHNIQUE: 4 views COMPARISON: None FINDINGS: There is amputation of the mid first through fifth metatarsal bones. There is extensive calcification including anterior and posterior tibial arteries, metatarsal arterie s. No fracture, dislocation, periosteal reaction or bone destruction is detected. Prominent plantar calcaneal enthesopathy. IMPRESSION: Status post first through fifth mid metatarsal amputation Extensive calcification, suggesting diabetes 3. Phase radionuclide bone scan would be more sensitive for detection of osteomyelitis Reviewed, dictated and finalized at location B. IMPRESSION: Status post first through fifth mid metatarsal amputation Extensive calcification, suggesting diabetes 3. Phase radionuclide bone scan would be more sensitive for detection of osteom yelitis
--- NOTE | 2023-01-24 09:08 | PM.PNORT ---
Progress Note: A&P Assessment and Plan (1) Non-healing ulcer of foot: Qualifiers: Laterality: right Non-pressure ulcer stage: with necrosis of bone Qualified Code(s): L97.514 - Non-pressure chronic ulcer of other part of right foot with necrosis of bone Code(s): L97.509 - Non-pressure chronic ulcer of other part of unspecified foot with unspecified severity Status: Acute Assessment and Plan: Omnigraft holding in place well on the medial side. Silicone covering removed from the lateral side as well as its respective ligia. Graft appears to be incorporating well. Surrounding tissue with mild swelling but no signs of progressing infection. Will await reapplication of wound VAC at this time until full silicone covering comes off. Recommended daily or every other day dressing changes based on drainage. Cover graft with adaptic, ABD pad, kerlex and tape in place. Continue use of fracture boot. Fracture boot with loss of straps and velcro no longer holding, recommended new boot fitting today. Continue weight bearing on heel. Follow up in 1 week for reevaluation. Will reapply wound VAC once graft covering is removed. Sutures remain in place. (2) Osteomyelitis of foot, right, acute: Code(s): M86.171 - Other acute osteomyelitis, right ankle and foot Status: Acute (3) Diabetic foot ulcer: Qualifiers: Diabetic foot ulcer location: other Diabetes mellitus type: type 2 Laterality: right Non-pressure ulcer stage: with necrosis of bone Qualified Code(s): E11.621 - Type 2 diabetes mellitus with foot ulcer; L97.514 - Non-pressure chronic ulcer of other part of right foot with necrosis of bone Code(s): E11.621 - Type 2 diabetes mellitus with foot ulcer; L97.509 - Non-pressure chronic ulcer of other part of unspecified foot with unspecified severity Status: Acute Subjective Subjective Date/Time Seen: 01/24/23 09:08 Interval history: Patient returns to the [facility] wound clinic 8 weeks, 1 day s/p TMA and 1 week, 5 days s/p revision of TMA and graft application. No new concerns today. Pain well controlled. Denies nausea, vomiting or diarrhea. Review of Systems Review of Systems: All systems reviewed & are unremarkable except as noted in HPI and below Exam Const: General: comfortable and no acute distress Resp: Effort & Inspection: normal respiratory effort Skin: Wounds: wounds noted Extrem: Other: Dressing removed right foot. Revised TMA site covered with Omnigraft stapled in place on the medial aspect, lateral aspect no longer covering with silicone dressing still incorporating within the wound bed. Unable to obtain full measurements given graft covering. Surrounding tissue with some swelling. No redness or warmth. No signs of progressing infection. Mild sanguinous drainage on bandage which was removed. Psych: Mental Status: mental status grossly normal Objective Data Meds/Results Medications: Active Medications Generic Name Dose Route Start Last Admin Trade Name Freq PRN Reason Stop Dose Admin Silver Nitrate 1 each 12/16/22 09:00 Aquacel Ag Advantage Bandage (*Bkc) TOPICAL 03/15/23 23:55 PRN PRN Wound Care Radiology Results: ITS Impressions Foot X-Ray 01/11/23 10:50 IMPRESSION: Status post first through fifth mid metatarsal amputation Extensive calcification, suggesting diabetes 3. Phase radionuclide bone scan would be more sensitive for detection of osteomyelitis
== END 2023-01-25 23:59 | disposition home or self-care (01) ==
LOC: ANHWOC 08:07
PROVIDERS: PCP Family Medicine; Referring Provider Nurse Practitioner Family; Visit Provider Nurse Practitioner Family
DX: E10.621 Type 1 diabetes mellitus with foot ulcer (principal); L97.412 Non-pressure chronic ulcer of right heel and midfoot with fat layer exposed; M14.671 Charcot's joint, right ankle and foot
CPT/HCPCS: 11042; 73630; 97605; 99213; G0463; L2116

== ENCOUNTER 2023-02-10 08:47 | Emergency (ER) | payer OTHER, MEDICARE, SELFPAY ==
[2023-02-10] VITALS (18 sets, daily range): BP systolic 113–127; BP diastolic 70–80; PULSE 57–110; RESP 12–29; TEMP 36.2; O2SAT 94–100
--- NOTE | ~2023-02-10 | XR_ITS ---
XR foot RT min 3V 02/10/2023 09:54 Indication: Right foot pain Procedure: 4 views right foot Comparison: 01/11/2023 Findings: Status post amputation of first-fifth metatarsals. There is soft tissue swelling and soft t issue gas overlying the residual aspect of the metatarsals. Cannot exclude underlying osteomyelitis. There is atherosclerosis. There is a degenerative calcaneal these findings. Impression: 1: Status post amputation of the metatarsals with irregularity to the residual aspect of the metatars als and overlying soft tissue swelling. Cannot exclude underlying osteomyelitis in the appropriate cl inical setting. Consider correlation with MRI with contrast. Reviewed, dictated and finalized at location A. Impression: 1: Status post amputation of the metatarsals with irregularity to the residual aspect of the metatarsals and overlying soft tissue swelling. Cannot exclude un derlying osteomyelitis in the appropriate clinical setting. Consider correlatio n with MRI with contrast.
--- NOTE | ~2023-02-10 | XR_ITS ---
XR chest 2V 02/10/2023 09:51 Indication: Sepsis. Cough. Procedure: AP and lateral views of the chest Comparison: Comparison to multiple prior studies sequentially, with oldest reviewed study dated 08/24. Findings: Status post median sternotomy for CABG. Heart size is normal. There are healed left rib fra ctures. No focal air space disease, pulmonary edema, pleural effusion or suspected pneumothorax. Ther e is a prosthetic heart valve. Impression: 1: No acute cardiopulmonary disease. Reviewed, dictated and finalized at location A. Impression: 1: No acute cardiopulmonary disease.
--- NOTE | 2023-02-10 09:14 | ECG_ITS ---
Measurements Intervals [place] Rate: 101 P: 21 AR: 146 QRS: 24 QRSD: 84 T: 82 QT: 380 QTc: 494 Interpretive Statements SINUS TACHYCARDIA WITH FREQUENT SUPRAVENTRICULAR PREMATURE COMPLEXES NONSPECIFIC T-WAVE ABNORMALITY ABNORMAL RHYTHM ECG COMPARED TO ECG 11/24/2022 13:35:08 ATRIAL ECTOPIC ACTIVITY IS PRESENT Electronically Signed On 02-10-2023 15:32:11 CDT by Liam Pham M.D.
--- NOTE | 2023-02-10 09:15 | ED.GENADULT ---
HPI - General Adult General Chief complaint: Weakness <Emanuel Odom PA-C - Last Filed: 02/10/23 14:07> Stated complaint: Lethargic <Emanuel Odom PA-C - Last Filed: 02/10/23 14:07> Time Seen by Provider: 02/10/23 08:59 <Emanuel Odom PA-C - Last Filed: 02/10/23 14:07> Source: patient and family <Emanuel Odom PA-C - Last Filed: 02/10/23 14:07> Mode of arrival: ambulatory <WING Lynne Last Filed: 02/10/23 14:07> Limitations: no limitations <Emanuel Odom PA-C - Last Filed: 02/10/23 14:07> History of Present Illness HPI narrative: This is a 57-year-old male with PMH of ESRD, DM, CHF, CAD, CVA who presents the ED with chief complaint of generalized weakness in the past week. He is currently being treated in wound care clinic for his right transmetatarsal amputation. They noticed in wound care that he is very weak and looking washed out so they referred to ER for further evaluation. Patient reports that he is short of breath with exertion but none while laying there. Denies any chest pain. Patient and family endorse some increased cough over the last several weeks. Reports history of several episodes of pneumonia in the past. Patient does peritoneal dialysis at home every night and his family assists with this. He denies any abdominal pain now but family states that he had some yesterday. Patient reports several episodes of emesis 2 or 3 days ago along with a little bit of diarrhea, but this is all resolved. Denies any fevers, chills, leg swelling. <WING Lynne Last Filed: 02/10/23 14:07> Related Data Home medications: Home Medications Medication Instructions Recorded Confirmed calcitriol 0.5 mcg capsule 0.5 mcg PO QMWF 10/20/21 01/10/23 famotidine 40 mg tablet 40 mg PO Q12H 10/20/21 01/12/23 gabapentin 300 mg capsule 900 mg PO Q12H 10/20/21 01/12/23 venlafaxine 100 mg tablet 100 mg PO Q12H 10/20/21 01/12/23 lisinopril 10 mg tablet 10 mg PO DAILY 09/17/22 01/12/23 sevelamer carbonate 800 mg tablet 1,600 mg PO TIDWM 11/24/22 01/12/23 (Renvela) <Emanuel Odom PA-C - Last Filed: 02/10/23 14:07> Allergies/adverse reactions: Allergies Allergy/AdvReac Type Severity Reaction Status Date / Time No Known Allergies Allergy Verified 02/10/23 09:01 <Emanuel Odom PA-C - Last Filed: 02/10/23 14:07> Review of Systems Review of Systems: CONSTITUTIONAL: See HPI EYES: Denies visual changes, redness, or discharge. ENT: Denies rhinorrhea, congestion, sore throat, or otalgia. CARDIOVASCULAR: Denies chest pain, palpitations, or edema. RESPIRATORY: See HPI GASTROINTESTINAL: See HPI GENITOURINARY: Denies dysuria or hematuria. SKIN: Denies rash or itching. MUSCULOSKELETAL: Denies back pain, joint pain, or myalgia. NEUROLOGIC: Denies headache, numbness, dizziness, or weakness. PSYCHIATRIC: Denies anxiety or depression. <Emanuel Odom PA-C - Last Filed: 02/10/23 14:07> [facility] Past Medical History Medical History: Medical History (Updated 02/10/23 @ 11:38 by Emanuel Odom PA-C) Arthritis Bicuspid aortic valve Severe aortic stenosis status post bioprosthetic aortic valve replacement. Cerebrovascular accident (09/21/20) Thought to be embolic in nature, on long-term anticoagulation. Residual dysarthria. 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 Required temporary dialysis for a few months in spring 2019. Combined systolic and diastolic congestive heart failure Echocardiogram dated 11/03/2020 showed mildly enlarged left ventricular chamber with normal left ventricular systolic function and ejection fraction of 55 to 60% (as low as 35% on previous echos), moderate increased LV wall thickness, grade 3 diastolic dysfunction, and mild mitral and tricuspid valve regurgitation. COVID-19 Diabete
[2023-02-10] MEDS: SODIUM CHLORIDE 0.9% IV 1,000 ML 999 ML IV CONT (09:29)
[2023-02-10 09:37] LABS: Basophils Absolute Auto 0.1 K/mm3 (0.0-0.1); Basophils Percent Auto 0.8 % (0.2-1.2); Eosinophils Absolute Auto 0.1 K/mm3 (0-0.3); Eosinophils Percent Auto 0.9 % (0-4.4); Hematocrit 36.9 % (42.0-52.0); Hemoglobin 11.8 g/dL (14.0-18.0); Immature Granulocyte Absolute 0.09 K/mm3 (0.00-0.031); Immature Granulocyte Percent A 0.8 % (0-0.5); Lymphocytes Absolute Auto 1.47 K/mm3 (0.9-3.2); Lymphocytes Percent Auto 12.5 % (18.3-44.2); Mean Corpuscular Hemoglobin 30.3 pg (26-34); Mean Corpuscular Volume 94.9 fl (80-100); Monocytes Absolute Auto 1.2 K/mm3 (0.1-0.6); Monocytes Percent Auto 10.1 % (2.6-8.5); Neutrophils Absolute Auto 8.8 K/mm3 (1.3-6.7); Neutrophils Percent Auto 74.9 % (45.5-73.1); Platelet Count Result 437 k/mm3 (150-375); Red Blood Count 3.89 M/mm3 (4.6-6.20); Red Cell Distribution Width 16.2 % (11.5-14.5); White Blood Count 11.8 K/mm3 (4.5-10.0)
[2023-02-10 09:51] LABS: Lactic Acid Reflex 1.8 mmol/L (0.7-2.0)
[2023-02-10 09:52] LABS: INR 1.2; Prothrombin Time 14.5 Seconds (11.1-14.7)
[2023-02-10 09:53] LABS: Partial Thromboplastin Time 34.5 SECONDS (22.3-36.8)
--- NOTE | 2023-02-10 10:25 | PC.NURSE ---
S/p amputation of toes on right foot. Wound care by geophysical manager today. Dressing changed by EDP in ER after assessment.
[2023-02-10] MEDS: [UNRECOGNIZED DRUG - REMARK] XX (10:44)
[2023-02-10] MEDS: AMPICILLIN SULB 3 GM/NS 100 ML 3 GM/100 ML VIAL IVPB (10:50)
[2023-02-10 11:07] LABS: Alanine Aminotransferase 16 U/L (6-50); Albumin Level 3.4 g/dL (3.5-5.1); Alkaline Phosphatase 126 U/L (38-126); Anion Gap 9 mmol/L (8-16); Aspartate Amino Transferase 17 U/L (17-59); Bilirubin,Total 0.5 mg/dL (0.2-1.3); Blood Urea Nitrogen 46 mg/dL (9-20); Calcium 9.6 mg/dL (8.4-10.2); Carbon Dioxide 32 mmol/L (22-30); Chloride 94 mmol/L (98-107); Estimated CRCL calculation 9 ml/min; Estimated Glomerular Filt Rate 6; Glucose 125 mg/dL (65-110); NT Pro B Type Natriuretic Pept > 30000 pg/mL (19.9-100); Potassium 4.2 mmol/L (3.4-5.0); Sodium 135 mmol/L (137-145); Troponin I 0.146 ng/mL (0.000-0.034)
[2023-02-10 11:09] LABS: CRP 14.7 mg/dL (<1.0)
[2023-02-10] MEDS: CIPROFLOXACIN 400 MG/D5W 200ML 200 ML 200 MG IVPB (11:43)
== END 2023-02-10 13:15 | disposition home or self-care (01) ==
PROVIDERS: Emergency Provider Physician Assistant; PCP Family Medicine
DX: E11.621 Type 2 diabetes mellitus with foot ulcer (principal); I13.2 Hypertensive heart and chronic kidney disease with heart failure and with stage 5 chronic kidney disease, or end stage renal disease; I50.9 Heart failure, unspecified; N18.5 Chronic kidney disease, stage 5; E11.22 Type 2 diabetes mellitus with diabetic chronic kidney disease; I25.10 Atherosclerotic heart disease of native coronary artery without angina pectoris; E78.2 Mixed hyperlipidemia; Z86.73 Personal history of transient ischemic attack (TIA), and cerebral infarction without residual deficits; Z87.891 Personal history of nicotine dependence
CPT/HCPCS: 36415; 71046; 73630; 80053; 83605; 83880; 84484; 85025; 85610; 85730; 86140; 87040; 93005; 96361; 96365; 96367; 99284; J0295; J0744; J7030

== ENCOUNTER 2023-02-16 09:42 | Outpatient (CLI) | payer OTHER, MEDICARE, SELFPAY ==
--- NOTE | ~2023-02-16 | XR_ITS ---
EXAMINATION: XR chest 2V DATE: 02/16/2023 10:19 INDICATION: Altered mental status TECHNIQUE: AP and lateral views of the chest are obtained. COMPARISON: 01/21/2023 FINDINGS: The lungs are free of acute opacities. No pleural effusion or pneumothorax. The cardiomedia stinal silhouette is normal. There is mild thoracic spondylosis. Changes of cardiac valve replacement are noted. There are healed left rib fractures. Calcified mediastinal lymph nodes are consistent wit h old granulomatous disease. IMPRESSION: 1. No acute cardiopulmonary abnormality. Reviewed, dictated and finalized at location L.
[2023-02-16 10:36] LABS: Basophils Absolute Auto 0.1 K/mm3 (0.0-0.1); Basophils Percent Auto 0.9 % (0.2-1.2); Eosinophils Absolute Auto 0.1 K/mm3 (0-0.3); Eosinophils Percent Auto 0.7 % (0-4.4); Hematocrit 38.3 % (42.0-52.0); Hemoglobin 11.9 g/dL (14.0-18.0); Immature Granulocyte Absolute 0.07 K/mm3 (0.00-0.031); Immature Granulocyte Percent A 0.6 % (0-0.5); Lymphocytes Absolute Auto 2.19 K/mm3 (0.9-3.2); Lymphocytes Percent Auto 17.3 % (18.3-44.2); Mean Corpuscular HGB Conc 31.1 g/dl (32-36); Mean Corpuscular Hemoglobin 29.2 pg (26-34); Mean Corpuscular Volume 93.9 fl (80-100); Mean Platelet Volume 9.2 fl (7.4-10.4); Monocytes Percent Auto 7.6 % (2.6-8.5); Neutrophils Absolute Auto 9.2 K/mm3 (1.3-6.7); Neutrophils Percent Auto 72.9 % (45.5-73.1); Platelet Count Result 462 k/mm3 (150-375); Red Blood Count 4.08 M/mm3 (4.6-6.20); Red Cell Distribution Width 14.9 % (11.5-14.5); White Blood Count 12.7 K/mm3 (4.5-10.0)
[2023-02-16 10:47] LABS: Alanine Aminotransferase 28 U/L (6-50); Albumin Level 3.9 g/dL (3.5-5.1); Alkaline Phosphatase 188 U/L (38-126); Anion Gap 10 mmol/L (8-16); Aspartate Amino Transferase 32 U/L (17-59); Bilirubin,Total 0.6 mg/dL (0.2-1.3); Blood Urea Nitrogen 49 mg/dL (9-20); Calcium 10.3 mg/dL (8.4-10.2); Carbon Dioxide 33 mmol/L (22-30); Chloride 92 mmol/L (98-107); Estimated Glomerular Filt Rate 6; Glucose 114 mg/dL (65-110); Potassium 4.3 mmol/L (3.4-5.0); Sodium 135 mmol/L (137-145)
[2023-02-16 10:56] LABS: CRP 7.7 mg/dL (<1.0); NT Pro B Type Natriuretic Pept > 30000 pg/mL (19.9-100)
== END 2023-02-16 09:43 | disposition home or self-care (01) ==
PROVIDERS: Nurse Practitioner Family; Physician Assistant; Student in an Organized Health Care Education/Training Program; PCP Family Medicine; Visit Provider Family Medicine
DX: R53.83 Other fatigue (principal); I50.9 Heart failure, unspecified; J18.9 Pneumonia, unspecified organism; L97.514 Non-pressure chronic ulcer of other part of right foot with necrosis of bone; M86.171 Other acute osteomyelitis, right ankle and foot; R11.2 Nausea with vomiting, unspecified; G62.9 Polyneuropathy, unspecified
CPT/HCPCS: 36415; 71046; 80053; 83880; 85025; 86140; 86335; 87086

== ENCOUNTER 2023-02-16 13:09 | Emergency (ER) | payer OTHER, MEDICARE, SELFPAY ==
[2023-02-16] VITALS (11 sets, daily range): BP systolic 98–142; BP diastolic 80–107; PULSE 83–94; RESP 12–28; TEMP 36.1–36.6; O2SAT 97–100
--- NOTE | ~2023-02-16 | XR_ITS ---
EXAMINATION: XR chest 1V portable DATE: 02/16/2023 16:56 INDICATION: Weakness. TECHNIQUE: A single frontal view of the chest was obtained. COMPARISON: Chest 2 views 02/16/2023 at 10:16 AM FINDINGS: A calcified right lung nodule and calcified mediastinal lymph nodes are consistent with old granulomatous disease. There is no pneumonia, pleural effusion, or pneumothorax. The heart size is n ormal. There are changes of aortic valve replacement. There are old healed left rib fractures. IMPRESSION: 1. No acute cardiopulmonary disease. Reviewed, dictated and finalized at location E.
--- NOTE | 2023-02-16 13:19 | ECG_ITS ---
Measurements Intervals [place] Rate: 87 P: -7 FL: 150 QRS: 14 QRSD: 89 T: 114 QT: 406 QTc: 490 Interpretive Statements SINUS RHYTHM WITH OCCASIONAL SUPRAVENTRICULAR PREMATURE COMPLEXES MODERATE T-WAVE ABNORMALITY, CONSIDER LATERAL ISCHEMIA [-0.1+ mV T WAVE IN I/aVL/V5/V6] COMPARED TO ECG 02/10/2023 09:56:49 SINUS RHYTHM NOW PRESENT Electronically Signed On 02-16-2023 16:04:13 CDT by Felicia Webb M.D.
[2023-02-16 13:38] LABS: Basophils Absolute Auto 0.1 K/mm3 (0.0-0.1); Basophils Percent Auto 1.1 % (0.2-1.2); Eosinophils Absolute Auto 0.1 K/mm3 (0-0.3); Eosinophils Percent Auto 0.6 % (0-4.4); Hematocrit 38.3 % (42.0-52.0); Hemoglobin 11.9 g/dL (14.0-18.0); Immature Granulocyte Absolute 0.04 K/mm3 (0.00-0.031); Immature Granulocyte Percent A 0.4 % (0-0.5); Lymphocytes Absolute Auto 2.25 K/mm3 (0.9-3.2); Lymphocytes Percent Auto 22.9 % (18.3-44.2); Mean Corpuscular HGB Conc 31.1 g/dl (32-36); Mean Corpuscular Hemoglobin 29.3 pg (26-34); Mean Corpuscular Volume 94.3 fl (80-100); Mean Platelet Volume 9.2 fl (7.4-10.4); Monocytes Absolute Auto 0.7 K/mm3 (0.1-0.6); Monocytes Percent Auto 7.5 % (2.6-8.5); Neutrophils Absolute Auto 6.6 K/mm3 (1.3-6.7); Neutrophils Percent Auto 67.5 % (45.5-73.1); Platelet Count Result 424 k/mm3 (150-375); Red Blood Count 4.06 M/mm3 (4.6-6.20); Red Cell Distribution Width 14.9 % (11.5-14.5); White Blood Count 9.8 K/mm3 (4.5-10.0)
[2023-02-16 13:52] LABS: Alanine Aminotransferase 27 U/L (6-50); Albumin Level 3.8 g/dL (3.5-5.1); Alkaline Phosphatase 168 U/L (38-126); Anion Gap 10 mmol/L (8-16); Aspartate Amino Transferase 22 U/L (17-59); Bilirubin,Total 0.5 mg/dL (0.2-1.3); Blood Urea Nitrogen 49 mg/dL (9-20); Calcium 10.5 mg/dL (8.4-10.2); Carbon Dioxide 33 mmol/L (22-30); Chloride 92 mmol/L (98-107); Estimated CRCL calculation 9 ml/min; Estimated Glomerular Filt Rate 6; Glucose 118 mg/dL (65-110); Potassium 4.2 mmol/L (3.4-5.0); Sodium 135 mmol/L (137-145)
[2023-02-16 13:53] LABS: Lactic Acid Reflex 1.4 mmol/L (0.7-2.0)
[2023-02-16 16:39] LABS: Influenza A QL RT-PCR Negative (Negative); Influenza B QL RT-PCR Negative (Negative); RSV RNA, RT-PCR Negative (Negative); SARS-CoV-2 RNA PCR Negative (Negative)
[2023-02-16 16:58] LABS: Appearance Urine Clear (Clear); Bacteria Urine None Seen /hpf; Bilirubin Urine Negative (Negative); Blood Urine Negative (Negative); Color Urine Yellow (Yellow); Glucose Urine UA 1+ mg/dL (Negative); Ketones Urine Negative (Negative); Leukocyte Esterase Ur Negative LEU/UL (Negative); Need Manual Microscopic Reviewed; Nitrate Urine Negative (Negative); Protein Urine 4+ mg/dL (Negative); RBC Urine 0-2 /hpf (0-2); Specific Grav Ur 1.029 (1.001-1.035); Squamous Epithelial Cell Urine None seen /hpf (Few); Urobilinogen Urine 0.2 mg/dL (<2.0); WBC Urine 0-5 /hpf
[2023-02-16 16:59] LABS: Add Urine Microscopic? YES
--- NOTE | 2023-02-16 17:56 | ED.GENADULT ---
HPI - General Adult General Chief complaint: Weakness Stated complaint: falls Time Seen by Provider: 02/16/23 15:18 History of Present Illness HPI narrative: 57-year-old male presented to the emergency department for evaluation for increased generalized weakness. states that the patient had foot surgery in September had the wound VAC removed just a few days ago. Patient has been taking Cipro and Keflex due to an elevated WBC for unknown cause. Patient does do peritoneal dialysis and has been doing this without issues. states that the patient has been increasingly tired and has had more frequent falls. Related Data Home Medications Medication Instructions Recorded Confirmed calcitriol 0.5 mcg capsule 0.5 mcg PO QMWF 10/20/21 02/16/23 famotidine 40 mg tablet 40 mg PO Q12H 10/20/21 02/16/23 gabapentin 300 mg capsule 900 mg PO Q12H 10/20/21 02/16/23 venlafaxine 100 mg tablet 100 mg PO Q12H 10/20/21 02/16/23 lisinopril 10 mg tablet 10 mg PO DAILY 09/17/22 02/16/23 sevelamer carbonate 800 mg tablet 1,600 mg PO TIDWM 11/24/22 02/16/23 (Renvela) Allergies Allergy/AdvReac Type Severity Reaction Status Date / Time No Known Allergies Allergy Verified 02/16/23 14:57 Review of Systems Review of Systems: All systems reviewed & are unremarkable except as noted in HPI and below PMFSH Past Medical History Medical History Arthritis Bicuspid aortic valve Severe aortic stenosis status post bioprosthetic aortic valve replacement. Cerebrovascular accident (09/21/20) Thought to be embolic in nature, on long-term anticoagulation. Residual dysarthria. 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 Required temporary dialysis for a few months in spring 2019. Combined systolic and diastolic congestive heart failure Echocardiogram dated 11/03/2020 showed mildly enlarged left ventricular chamber with normal left ventricular systolic function and ejection fraction of 55 to 60% (as low as 35% on previous echos), moderate increased LV wall thickness, grade 3 diastolic dysfunction, and mild mitral and tricuspid valve regurgitation. COVID-19 Diabetes Diabetic foot ulcer Diabetic foot ulcer Dialysis patient Encounter for central line placement End-stage renal disease on peritoneal dialysis Essential hypertension Finger fracture Former smoker 50 pack year smoking history, quit in 1987. Gastroesophageal reflux disease Hiatal hernia History of hemodialysis History of acute kidney injury on chronic kidney disease requiring hemodialysis in 2019. He has had a right IJ temporary dialysis catheter placed in 01/2020 and then a tunneled dialysis catheter in 02/2020, which was removed in 05/2020. History of osteomyelitis Hypertension Impingement syndrome of left shoulder Insulin dependent type 2 diabetes mellitus Complicated by nephropathy, neuropathy, and retinopathy. Mixed hyperlipidemia Nausea & vomiting Non-healing ulcer of foot Osteomyelitis of foot, right, acute Peripheral vascular disease Pneumonia Pneumonia Pneumonia Renal osteodystrophy Surgical History Surgical History Amputation of left great toe (2019) Secondary to osteomyelitis. History of aortic valve replacement (07/24/20) 25 mm Inspiris bioprosthetic valve per Dr. Nam Daniels at [facility]. History of carpal tunnel release History of coronary artery bypass graft x 1 (07/24/20) Saphenous vein graft to obtuse marginal per Dr. Nma Daniels at [facility]. History of tonsillectomy S/P CABG x 1 (~07/24/20) Family History Family History Mother Family history of arthritis Family history of diabetes mellitus in first degree relative Family history of malignant neop
== END 2023-02-16 18:38 | disposition home or self-care (01) ==
PROVIDERS: Emergency Medicine; Emergency Provider Emergency Medicine; PCP Family Medicine
DX: R53.1 Weakness (principal); Z20.822 Contact with and (suspected) exposure to COVID-19; E11.22 Type 2 diabetes mellitus with diabetic chronic kidney disease; I13.2 Hypertensive heart and chronic kidney disease with heart failure and with stage 5 chronic kidney disease, or end stage renal disease; N18.6 End stage renal disease; I50.40 Unspecified combined systolic (congestive) and diastolic (congestive) heart failure; E11.21 Type 2 diabetes mellitus with diabetic nephropathy; E11.40 Type 2 diabetes mellitus with diabetic neuropathy, unspecified; E11.319 Type 2 diabetes mellitus with unspecified diabetic retinopathy without macular edema; E11.51 Type 2 diabetes mellitus with diabetic peripheral angiopathy without gangrene; N25.0 Renal osteodystrophy; I73.9 Peripheral vascular disease, unspecified; D64.9 Anemia, unspecified; M19.90 Unspecified osteoarthritis, unspecified site; K21.9 Gastro-esophageal reflux disease without esophagitis; Z99.2 Dependence on renal dialysis; Z95.1 Presence of aortocoronary bypass graft; Z95.2 Presence of prosthetic heart valve; Z86.16 Personal history of COVID-19; Z87.01 Personal history of pneumonia (recurrent); Z87.891 Personal history of nicotine dependence; Z89.412 Acquired absence of left great toe; Z89.411 Acquired absence of right great toe; Z89.421 Acquired absence of other right toe(s); I49.1 Atrial premature depolarization; R94.31 Abnormal electrocardiogram [ECG] [EKG]; Z79.82 Long term (current) use of aspirin
CPT/HCPCS: 36415; 71045; 71046; 80053; 81001; 83605; 83880; 85025; 86140; 86335; 87040; 87086; 87637; 93005; 99283

== ENCOUNTER 2023-02-23 01:20 | Day surgery (SDC) | payer OTHER, MEDICARE, SELFPAY ==
[2023-02-21 10:12] VITALS: BMI 25.9
--- NOTE | 2023-02-21 10:13 | PC.NURSE ---
Report to the Outpatient Waiting Room, entrance under the green pavilion located off [facility], at time 0900 on date 02/23/23. Planned Procedure Time: 1100. Time changes happen often and if your time is changed the preop area will call you the afternoon before. - You and your visitor will be asked to self-screen and do not enter if you have any COVID symptoms. - A mask is optional within the hospital at this time. Patients may have clear liquids (water, carbonated beverages, clear teas, apple juice) until 3 hours prior to surgery with a maximum of 20 ounces. - No food from midnight until time of surgery Take the following medications with a SIP of water the morning of surgery: GABAPENTIN, LABETALOL, VENLAFAXINE DO NOT STOP ANY OF YOUR OTHER PRESCRIPTION MEDICATIONS PRIOR TO SURGERY EXCEPT THE FOLLOWING Medications to discontinue per physician: N/A Date to take last dose: N/A Please no make-up, nail cypriot, hairspray, perfume, deodorant, or body powder the day of surgery. No jewelry (including any body piercings) or valuables the day of surgery, leave them at home. Please take a shower or bath the night before, or the morning of, surgery with an antibacterial soap. Wear comfortable, loose fitting clothing. - Jewelry must be removed prior to entering the operating room. Rings and piercings that are not removed may be cut off. - The hospital will not accept responsibility for valuables. - Please leave all valuables, including medications, at home the day of surgery. If you are going home after surgery, a licensed special needs bus driver must drive you home. - NO public transportation without another adult if you receive anesthesia. - We recommend that an adult stay with you for 24 hours following discharge. - We also recommend that you do not drive, make important decision, drink alcoholic beverages, or take any drugs that were not prescribed by your health care provider for at least 24 hours after your discharge time. Follow any additional instructions given to you from your surgeon. If you or anyone in your household have experienced Covid symptoms in the past week, please notify your surgeon or the nurse liaison at the phone number below for possible testing. Telephone instructions given to - NNAMDI and asked if any additional questions and then verbalized understanding. Patient advised to call surgeon office or pre surgery nurse liaison [phone] if any additional questions.
--- NOTE | 2023-02-22 23:51 | PM.IMHP ---
H&P: HPI History of Present Illness Date/Time: 02/22/23 23:51 Chief Complaint: Right transmetatarsal amputation wound and diabetic foot ulcer Narrative: 57-year-old 4 weeks status post right revision transmetatarsal amputation for diabetic ulcer and osteomyelitis. Complicated by wound dehiscence and exposed bone. No improvement with wound care and wound VAC. Presents now for operative treatment. Review of Systems Review of Systems: All systems reviewed & are unremarkable except as noted in HPI and below Constitutional: Constitutional: Reports no additional constitutional complaints Eyes: Eyes: Reports no additional eye complaints ENT: Reports system reviewed and no additional complaints, except as documented and Reports Normal hearing present Cardiovascular: Cardiovascular: Reports no additional cardiovascular complaints Respiratory: Respiratory: Reports no additional respiratory complaints and Reports no additional respiratory complaints Gastrointestinal: Gastrointestinal: Reports no additional gastrointestinal complaints Musculoskeletal: Musculoskeletal: Reports no additional musculoskeletal complaints Integumentary/Breasts: Skin/Breast: Reports system reviewed and no additional complaints, except as docu and Reports as per HPI Neurologic: Reports system reviewed and no additional complaints, except as documented, Reports as per HPI and Reports Normal hearing present Psychiatric: Psychiatric: Reports no additional psychiatric complaints and Reports as per HPI Endocrine: Endocrine: Reports no additional endocrine complaints Hematologic/Lymphatic: Hematologic/Lymphatic: Reports no additional hematologic/lymphatic complaints Allergic/Immunologic: Allergic/Immunologic: Reports no additional allergic/immunologic complaints [facility] Past Medical History Medical History Arthritis Bicuspid aortic valve Severe aortic stenosis status post bioprosthetic aortic valve replacement. Cerebrovascular accident (09/21/20) Thought to be embolic in nature, on long-term anticoagulation. Residual dysarthria. 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 Required temporary dialysis for a few months in spring 2019. Combined systolic and diastolic congestive heart failure Echocardiogram dated 11/03/2020 showed mildly enlarged left ventricular chamber with normal left ventricular systolic function and ejection fraction of 55 to 60% (as low as 35% on previous echos), moderate increased LV wall thickness, grade 3 diastolic dysfunction, and mild mitral and tricuspid valve regurgitation. COVID-19 Diabetes Diabetic foot ulcer Diabetic foot ulcer Dialysis patient Encounter for central line placement End-stage renal disease on peritoneal dialysis Essential hypertension Finger fracture Former smoker 50 pack year smoking history, quit in 1987. Gastroesophageal reflux disease Hiatal hernia History of hemodialysis History of acute kidney injury on chronic kidney disease requiring hemodialysis in 2019. He has had a right IJ temporary dialysis catheter placed in 01/2020 and then a tunneled dialysis catheter in 02/2020, which was removed in 05/2020. History of osteomyelitis Hypertension Impingement syndrome of left shoulder Insulin dependent type 2 diabetes mellitus Complicated by nephropathy, neuropathy, and retinopathy. Mixed hyperlipidemia Nausea & vomiting Non-healing ulcer of foot Osteomyelitis of foot, right, acute Peripheral vascular disease Pneumonia Pneumonia Pneumonia Renal osteodystrophy Surgical History Surgical History Amputation of left great toe (2019) Secondary to osteomyelitis. History of aortic valve replacement (07/24/20) 25 mm Inspiris bioprosthetic valve pe
[2023-02-23] VITALS (7 sets, daily range): BP systolic 91–139; BP diastolic 72–76; PULSE 84–96; RESP 14–16; TEMP 36.1–36.6; O2SAT 99–100
--- NOTE | ~2023-02-23 | XR_ITS ---
EXAMINATION: XR surgery orthopedic DATE: 02/23/2023 11:15 INDICATION: Right foot amputation/debridement. TECHNIQUE: 2 fluoroscopic images of the central portion of the right foot were obtained during proced ure performed by Dr. Whitaker. Radiologist was not present for the imaging or procedure. The amount of fluoroscopy time used during this procedure was 0.1 minutes. COMPARISON: 01/12/2023 and 02/10/2023 FINDINGS: Internal revision of a transmetatarsal right foot amputation with debridement and more proximal osteo tomies at the base of the metatarsals. The base of the first metatarsal appears to have been complete ly resected. Moderate-sized plantar calcaneal spur. IMPRESSION: 1. Fluoroscopy utilized during revision of a right forefoot amputation. See procedure note for furthe r detail. Reviewed, dictated and finalized at location [facility]. IMPRESSION: 1. Fluoroscopy utilized during revision of a right forefoot amputation. See pro cedure note for further detail.
--- NOTE | 2023-02-23 07:11 | WPDHPUPDATE1 ---
History and Physical Update Update Date/Time: 02/23/23 07:11 History and Physical has been reviewed, including an updated exam of the patient. There are NO changes in the patient's condition. Risks, benefits, and alternatives have been discussed and questions answered. Patient agrees to proceed with procedure.
[2023-02-23 09:57] LABS: Anion Gap 6 mmol/L (8-16); Blood Urea Nitrogen 46 mg/dL (9-20); Carbon Dioxide 36 mmol/L (22-30); Chloride 92 mmol/L (98-107); Estimated CRCL calculation 11 ml/min; Estimated Glomerular Filt Rate 7; Glucose 105 mg/dL (65-110); Potassium 5.2 mmol/L (3.4-5.0); Sodium 134 mmol/L (137-145)
[2023-02-23] MEDS: ACETAMINOPHEN 500 MG TABLET 1000 MG PO (10:10)
--- NOTE | 2023-02-23 10:10 | WPDANESEPPF ---
Anes - Initial Pre Proc Eval Procedure: Operation Date: 02/23/23 11:00 Proposed Procedures p Debridement of Right Transmetatarsal Amputation Down to Bone - Jacinto Whitaker MD Date/Time: 02/23/23 10:10 Surgeon: Jacinto Whitaker MD Pre Op Diagnosis: Right Diabetic Foot Ulcer Patient Data Age: 57 Gender: M Height: 1.79 m Weight: 83 kg Allergies Allergy/AdvReac Type Severity Reaction Status Date / Time No Known Allergies Allergy Verified 02/21/23 10:12 Home Medications Medication Instructions Recorded Confirmed Type calcitriol 0.5 mcg capsule 0.5 mcg PO QMWF 10/20/21 02/21/23 History famotidine 40 mg tablet 40 mg PO Q12H 10/20/21 02/21/23 History gabapentin 300 mg capsule 900 mg PO Q12H 10/20/21 02/21/23 History venlafaxine 100 mg tablet 100 mg PO Q12H 10/20/21 02/21/23 History aspirin 81 mg chewable tablet 81 mg PO DAILY #90 tabs 09/06/22 02/21/23 Rx lisinopril 10 mg tablet 10 mg PO DAILY 09/17/22 02/21/23 History sevelamer carbonate 800 mg tablet 1,600 mg PO TIDWM 11/24/22 02/21/23 History (Renvela) labetalol 100 mg tablet 200 mg PO Q12HR #120 tabs 12/01/22 02/21/23 Rx bumetanide 2 mg tablet 2 mg PO DAILY 02/21/23 02/21/23 History Laboratory Tests 02/23/23 09:40 Sodium 134 L mmol/L (137-145) Potassium 5.2 H mmol/L (3.4-5.0) Chloride 92 L mmol/L (98-107) Carbon Dioxide 36 H mmol/L (22-30) Anion Gap 6 L mmol/L (8-16) BUN 46 H mg/dL (9-20) Creatinine 7.70 H mg/dL (0.7-1.3) Estim Creat Clear Calc 11 ml/min Estimated GFR 7 L (59 - ) Glucose 105 mg/dL (65-110) Calcium 10.0 mg/dL (8.4-10.2) Patient hx anesthesia problems: none Family hx anesthesia problems: none Results Review: All pre-operative results and documents have been reviewed as part of the pre-operative evaluation. [facility] Past Medical History Medical History Arthritis Bicuspid aortic valve Severe aortic stenosis status post bioprosthetic aortic valve replacement. Cerebrovascular accident (09/21/20) Thought to be embolic in nature, on long-term anticoagulation. Residual dysarthria. 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 Required temporary dialysis for a few months in spring 2019. Combined systolic and diastolic congestive heart failure Echocardiogram dated 11/03/2020 showed mildly enlarged left ventricular chamber with normal left ventricular systolic function and ejection fraction of 55 to 60% (as low as 35% on previous echos), moderate increased LV wall thickness, grade 3 diastolic dysfunction, and mild mitral and tricuspid valve regurgitation. COVID-19 Diabetes Diabetic foot ulcer Diabetic foot ulcer Dialysis patient Encounter for central line placement End-stage renal disease on peritoneal dialysis Essential hypertension Finger fracture Former smoker 50 pack year smoking history, quit in 1987. Gastroesophageal reflux disease Hiatal hernia History of hemodialysis History of acute kidney injury on chronic kidney disease requiring hemodialysis in 2019. He has had a right IJ temporary dialysis catheter placed in 01/2020 and then a tunneled dialysis catheter in 02/2020, which was removed in 05/2020. History of osteomyelitis Hypertension Impingement syndrome of left shoulder Insulin dependent type 2 diabetes mellitus Complicated by nephropathy, neuropathy, and retinopathy. Mixed hyperlipidemia Nausea & vomiting Non-healing ulcer of foot Osteomyelitis of foot, right, acute Peripheral vascular disease Pneumonia Pneumonia Pneumonia Renal osteodystrophy Surgical History Surgical History Amputation of left great toe (2019) Secondary to osteomyelitis. History of aortic valve replac
[2023-02-23] MEDS: ceFAZolin 2 GM/D5W 50 ML 2 GM/50 ML BAG IVPB (10:27)
[2023-02-23] MEDS: SODIUM CHLORIDE 0.9% IV 1,000 ML 30 ML IV CONT (10:36)
[2023-02-23] MEDS: BUPivacaine HCL 0.5% 10 ML AMP 20 ML INFILTRATE (10:55)
--- NOTE | 2023-02-23 11:35 | P.OP_ITS ---
Procedure Note - Detailed Date of Procedure 02/23/23 Pre-op Diagnosis Right Diabetic Foot Ulcer, necrosis 1st metatarsal Post-op Diagnosis Same Procedure Performed excisional debridement right foot including bone Surgeon Jacinto Whitaker MD Podiatric Surgeon [facility] Anesthesia MAC Indications 57-year-old with end-stage renal disease, diabetes peripheral vascular disease with nonhealing right transmetatarsal amputation wound. Exposed bone in the wound with necrosis noted. Presents for debridement. Findings Necrosis of the remaining 1st metatarsal and 3rd metatarsal. Description of Procedure Patient identified in the preoperative holding. Informed consent given. Operative extremity marked. Patient received intravenous antibiotics. Patient brought to the operating room where underwent IV sedation by anesthesia team. Positioned supine on operating room table. Time-out performed confirming the patient, site of the surgery and the plan. right foot prepped draped usual st erile surgical fashion using a Betadine prep solution. An Esmarch bandage was used at the ankle as a tourniquet. There was exposed bone of the 1st metatarsal remaining from the transmetatarsal amputation. This was noted to be necrotic. Soft tissue was elevated off of this circumferentially and the remaining portion of 1st metatarsal was removed through the metatarsal cuneiform joint. The jesus cular surface of the cuneiform was removed with an osteotome and rongeur. There was also exposed and necrotic 3rd metatarsal. This was excised with a rongeur and passed off. All other areas of the transmetatarsal amputation wound had good coverage of bone and tendon. Any loose tissue was sharply debrided, excised and removed with a 15 blade knife and rongeur. Wound was then thoroughly irrigated with saline. Skin was loosely closed over the cuneiform with 0 Prolene interrupted suture. Sterile dressing applied. The patient was then woken from anesthesia, extubated and taken to the recovery room in stable condition. All sponge, needle, instrument counts were correct at the end of the case. Estimated Blood Loss 5 Tourniquet Time 15 Drains No Packing No Pathology None sent Complications None Condition Stable Disposition PACU [facility] Billing Surgery - Charge Forward: Surgery Billing ([id number])
[2023-02-23 11:46] LABS: Glucose Point of Care 85 mg/dl (65-105)
== END 2023-02-23 12:57 | disposition home or self-care (01) ==
PROVIDERS: Anesthesiology; PCP Family Medicine; Visit Provider Orthopaedic Surgery
PROC: (CPT 11044; principal; 2023-02-23 11:00)
DX: E11.621 Type 2 diabetes mellitus with foot ulcer (principal); L97.514 Non-pressure chronic ulcer of other part of right foot with necrosis of bone; T81.89XA Other complications of procedures, not elsewhere classified, initial encounter; Y83.8 Other surgical procedures as the cause of abnormal reaction of the patient, or of later complication, without mention of misadventure at the time of the procedure; E11.51 Type 2 diabetes mellitus with diabetic peripheral angiopathy without gangrene; I12.0 Hypertensive chronic kidney disease with stage 5 chronic kidney disease or end stage renal disease; E11.22 Type 2 diabetes mellitus with diabetic chronic kidney disease; N18.6 End stage renal disease; Z99.2 Dependence on renal dialysis; I69.322 Dysarthria following cerebral infarction; D64.9 Anemia, unspecified; K21.9 Gastro-esophageal reflux disease without esophagitis; E11.21 Type 2 diabetes mellitus with diabetic nephropathy; E11.40 Type 2 diabetes mellitus with diabetic neuropathy, unspecified; E11.319 Type 2 diabetes mellitus with unspecified diabetic retinopathy without macular edema; N25.0 Renal osteodystrophy; Z95.1 Presence of aortocoronary bypass graft; Z79.82 Long term (current) use of aspirin; Z95.2 Presence of prosthetic heart valve; Z87.891 Personal history of nicotine dependence
CPT/HCPCS: 11044; 36415; 80048; 82948; 99199; A9270; J0690; J2370; J2704; J7030

== ENCOUNTER → 2023-03-30 09:48 | Outpatient (CLI) | payer OTHER, MEDICARE, SELFPAY ==
--- NOTE | ~2023-03-30 | CT_ITS ---
EXAMINATION: CT diagnostic chest wo con DATE: 03/30/2023 10:02 INDICATION: Abnormal radiographic finding TECHNIQUE: Computed tomography (CT) of the chest was performed without intravenous contrast. Automate d exposure control and iterative reconstruction technique were employed. Exam dose: 439.97 mGy-cm to ace exam DLP. COMPARISON: 02/16/2023 portable AP chest 02/16/2023 2 view chest FINDINGS: There is mild patchy right upper lobe infiltrate. The remaining lung barboza are clear. Status post sternotomy and aortic and possible mitral valve replacement. Recommend correlation with s urgical history. Coronary artery calcifications. There is aortic and great vessel calcification. No t horacic aortic aneurysm. Prominent calcified subcarinal lymph nodes, calcified right hilar node, calcified right lower lobe pu lmonary granuloma, consistent with old granulomatous disease. No hilar or mediastinal mass lesion or lymphadenopathy. Mild perihepatic and perisplenic ascites. Normal morphology of the adrenal glands. Old left rib fractures. Diffuse idiopathic skeletal hyperostosis of the thoracic spine. IMPRESSION: Mild patchy right upper lobe infiltrate Old pulmonary granulomatous disease Status post sternotomy and cardiac valvular replacement Mild ascites Reviewed, dictated and finalized at [facility]. Reviewed, dictated and finalized at location [facility].
== END ==
PROVIDERS: PCP Family Medicine; Visit Provider Physician Assistant
DX: R93.89 Abnormal findings on diagnostic imaging of other specified body structures (principal); R91.8 Other nonspecific abnormal finding of lung field; R18.8 Other ascites
CPT/HCPCS: 71250

== ENCOUNTER 2023-04-11 07:33 | Outpatient (RCR) | payer OTHER, MEDICARE, SELFPAY ==
[2023-01-26 00:03] VITALS: BMI 28.0
--- NOTE | 2023-01-31 08:42 | PM.PNORT ---
Progress Note: A&P Assessment and Plan (1) Non-healing ulcer of foot: Qualifiers: Laterality: right Non-pressure ulcer stage: with necrosis of bone Qualified Code(s): L97.514 - Non-pressure chronic ulcer of other part of right foot with necrosis of bone Code(s): L97.509 - Non-pressure chronic ulcer of other part of unspecified foot with unspecified severity Status: Acute Assessment and Plan: Omnigraft covering removed. Jay removed. Sutures removed from medial/lateral aspects of the wound which were well approximated. Sutures in the middle of the wound bed remain in place to assist in holding wound bed together. Graft appears to be incorporating well. Wound measures 8.3x2.5x0.2cm, loose slough which was easily removed from the wound bed upon cleansing. No necrosis. No bone exposure. Surrounding tissue with mild swelling but no signs of progressing infection. Recommended reapplication of wound VAC dressing today. Wound VAC dressing applied. Wound VAC to be changed three times a week. Home Health to be reactivated to assist with dressing changes. Will also request CBC and CRP. He will follow up in 1.5 weeks in the [facility] wound clinic for reevaluation on 02/10 at 8:00 AM. Remaining sutures to be removed at that time as well. (2) Osteomyelitis of foot, right, acute: Code(s): M86.171 - Other acute osteomyelitis, right ankle and foot Status: Acute (3) Diabetic foot ulcer: Qualifiers: Diabetes mellitus type: type 2 Diabetic foot ulcer location: other Laterality: right Non-pressure ulcer stage: with necrosis of bone Qualified Code(s): E11.621 - Type 2 diabetes mellitus with foot ulcer; L97.514 - Non-pressure chronic ulcer of other part of right foot with necrosis of bone Code(s): E11.621 - Type 2 diabetes mellitus with foot ulcer; L97.509 - Non-pressure chronic ulcer of other part of unspecified foot with unspecified severity Status: Acute Assessment and Plan: Discussed importance of proper nutrition, diabetic diet and medication compliance for optimal healing. Reviewed signs and symptoms of infection including fever, chills, night sweats, nausea, vomiting, diarrhea, changes to the wound bed or purulent drainage to report to the ED immediately. Patient verbalized understanding. (4) Nausea & vomiting: Code(s): R11.2 - Nausea with vomiting, unspecified Status: Acute Assessment and Plan: 1 day history of nausea, vomiting. Discussed referral to ED but both patient/ do not find this necessary at this time as he has shown improvement this AM. Discussed risks of dehydration. He was able to keep water down this AM. No fevers reported. Recommended patient contact his PCP or report to ED if symptoms persist. Will obtain CBC and CRP as well. Wound bed without signs of acute or worsening infection. Patient is not currently on antibiotics. Subjective Subjective Date/Time Seen: 01/31/23 08:42 Interval history: Patient returns to the [facility] wound clinic 9 weeks, 1 day s/p TMA and 2 weeks, 5 days s/p revision of TMA and graft application. Patient and report a 1 day history of nausea/vomiting yesterday. The deny fevers. He was unable to keep food/drink down yesterday but has shown some improvement this morning with no vomiting after drinking water. Review of Systems Review of Systems: All systems reviewed & are unremarkable except as noted in HPI and below Exam Const: General: comfortable and no acute distress Resp: Effort & Inspection: normal respiratory effort Skin: Wounds: wounds noted Extrem: Other: Dressing removed right foot. Revised TMA site with Omnigraft silicone covering no longer holding. [place] removed. Sutures removed from the medial/lateral aspect of the wound bed. Sutures in the middle of the wound bed kept in place to assist with keeping wound loosely approximated. Wound measures 8.3x2.5x0.2cm, 100% yellow wound bed. No bone exposure.
--- NOTE | 2023-02-10 08:35 | P.PNOP_ITS ---
Progress Note: A&P Assessment and Plan (1) Non-healing ulcer of foot: Qualifiers: Laterality: right Non-pressure ulcer stage: with necrosis of bone Qualified Code(s): L97.514 - Non-pressure chronic ulcer of other part of right foot with necrosis of bone Code(s): L97.509 - Non-pressure chronic ulcer of other part of unspecified foot with unspecified severity Status: Acute Assessment and Plan: 4 weeks revision right transmetatarsal amputation with graft application. Remaining sutures removed today. Overall there is good granulation tissue but he does now have some exposed bone medially, placed him into a dressing with silver rope to allow for wound VAC holiday. daily dressing changes. If condition improves will restart Wound VAC. (2) Osteomyelitis of foot, right, acute: Code(s): M86.171 - Other acute osteomyelitis, right ankle and foot Status: Acute (3) Diabetic foot ulcer: Qualifiers: Diabetic foot ulcer location: other Diabetes mellitus type: type 2 Laterality: right Non-pressure ulcer stage: with necrosis of bone Qualified Code(s): E11.621 - Type 2 diabetes mellitus with foot ulcer; L97.514 - Non- pressure chronic ulcer of other part of right foot with necrosis of bone Code(s): E11.621 - Type 2 diabetes mellitus with foot ulcer; L97.509 - Non-pressure chronic ulcer of other part of unspecified foot with unspecified severity Status: Acute Assessment and Plan: (4) Nausea & vomiting: Code(s): R11.2 - Nausea with vomiting, unspecified Status: Acute Assessment and Plan: 2 week history of nausea, vomiting. appears weak and ill at this time. Vitals checked. Blood pressure between 80s and 100. Pulse 60s. Pulse ox unable to detect. Discussed with hospitalist pako. Recommend present to emergency room for urgent evaluation possible admit to hospital afterward. Subjective Subjective Date/Time Seen: 02/10/23 08:35 Post Op day: 4 weeks Principal diagnosis: Right transmetatarsal amputation Interval history: [facility] follow-up 4 weeks status post revision right transmetatarsal amputation currently with wound VAC on. Family notes he has been eating poorly the past 2. Multiple episodes of emesis. States that he had several episodes a week ago. His last episode emesis was 3 days ago. Has not been eating well since. He appears weak and washed out. Exam Const: General: comfortable and no acute distress Resp: Effort & Inspection: normal respiratory effort Skin: Wounds: wounds noted Extrem: Other: Dressing removed right foot. Wound measures 10x3x0.2cm. 90% good granulation tissue. 1St metatarsal bone exposed.. Surrounding tissue with some swelling. No redness or warmth. No purulence. No malodor. No signs of progressing infection. Bleeding tissue noted. Some of the necrotic tissue removed. Psych: Mental Status: mental status grossly normal [facility]up [facility] Follow-up Hospital Follow-up: [id number] Post-op Follow Up
--- NOTE | 2023-02-14 09:15 | P.PNOP_ITS ---
Progress Note: A&P Assessment and Plan (1) Non-healing ulcer of foot: Qualifiers: Laterality: right Non-pressure ulcer stage: with necrosis of bone Qualified Code(s): L97.514 - Non-pressure chronic ulcer of other part of right foot with necrosis of bone Code(s): L97.509 - Non-pressure chronic ulcer of other part of unspecified foot with unspecified severity Status: Acute Assessment and Plan: 4 weeks revision right transmetatarsal amputation with graft application. Wound with 80% granulation, still with exposed bone medially. Continue wound VAC holiday. Start silver gel and wet to dry dressings with NS dampened gauze. Perform dressing changes daily. Follow up in 1 week. If condition improves will restart wound VAC. May require debridement of bone of the 1st metatarsal if unable to have coverage with new granulation tisuse. (2) Osteomyelitis of foot, right, acute: Code(s): M86.171 - Other acute osteomyelitis, right ankle and foot Status: Acute (3) Diabetic foot ulcer: Qualifiers: Diabetic foot ulcer location: other Diabetes mellitus type: type 2 Laterality: right Non-pressure ulcer stage: with necrosis of bone Qualified Code(s): E11.621 - Type 2 diabetes mellitus with foot ulcer; L97.514 - Non- pressure chronic ulcer of other part of right foot with necrosis of bone Code(s): E11.621 - Type 2 diabetes mellitus with foot ulcer; L97.509 - Non-pressure chronic ulcer of other part of unspecified foot with unspecified severity Status: Acute Assessment and Plan: (4) Nausea & vomiting: Code(s): R11.2 - Nausea with vomiting, unspecified Status: Acute Assessment and Plan: Patient went to ED. Started on oral antibiotics. No admission to the hospital. Recommended f/u appt with PCP for further evaluation of weakness. Subjective Subjective Date/Time Seen: 02/14/23 09:15 Post Op day: 4 weeks Principal diagnosis: Right transmetatarsal amputation Interval history: [facility] follow-up 4 weeks, 5 days status post revision right transmetatarsal amputation. Wound VAC held last week. Patient sent to ED. No admission to the hospital. He was started on oral antibiotics. He has not made a follow up with his PCP. He does state he is feeling better today. Review of Systems Review of Systems: All systems reviewed & are unremarkable except as noted in HPI and below Exam Const: General: comfortable and no acute distress Resp: Effort & Inspection: normal respiratory effort Skin: Wounds: wounds noted Extrem: Other: Dressing removed right foot. Wound measures 10.0x3.0x2.0cm. 80% good granulatio n tissue. 1St metatarsal bone exposed. Surrounding tissue with some swelling. No redness or warmth. No purulence. No malodor. No signs of progressing infection. Bleeding tissue noted. Some of the necrotic tissue removed. Psych: Mental Status: mental status grossly normal Objective Data Meds/Results Medications: Active Medications Generic Name Dose Route Start Last Admin Trade Name Freq PRN Reason Stop Dose Admin Silver Nitrate 1 each 02/10/23 09:20 Aquacel Advantage Bandage (*Bkc) TOPICAL 05/12/23 23:55 PRN PRN Wound Care
--- NOTE | 2023-02-21 08:55 | PM.PNORT ---
Progress Note: A&P Assessment and Plan (1) Non-healing ulcer of foot: Qualifiers: Laterality: right Non-pressure ulcer stage: with necrosis of bone Qualified Code(s): L97.514 - Non-pressure chronic ulcer of other part of right foot with necrosis of bone Code(s): L97.509 - Non-pressure chronic ulcer of other part of unspecified foot with unspecified severity Status: Acute Assessment and Plan: 5 weeks, 5 days s/p revision right transmetatarsal amputation with graft application. Wound with 80% granulation, still with exposed bone of the 1st metatarsal and pressure on the dorsal aspect of the skin, inhibiting full wound closure. Condition, nature, etiology and course of natural history discussed. Discussed nonoperative and operative treatment options with the patient. The patients questions were answered. The patient desires operative treatment. Plan: Debridement of the right TMA wound down to bone by Dr. Whitaker Risks of surgery including but not limited to neurovascular damage, wound complications, blood clot, pulmonary embolus, stroke, myocardial infarction, anesthetic risks up to and including were reviewed. Continued pain and possible dysfunction were explained. No guarantees were offered. The patient understands and wishes to proceed. Continue silver gel and wet to dry dressings with NS dampened gauze in the interim. Perform dressing changes daily. Follow up to be arranged pending surgical intervention. (2) Osteomyelitis of foot, right, acute: Code(s): M86.171 - Other acute osteomyelitis, right ankle and foot Status: Acute (3) Diabetic foot ulcer: Qualifiers: Diabetic foot ulcer location: other Diabetes mellitus type: type 2 Laterality: right Non-pressure ulcer stage: with necrosis of bone Qualified Code(s): E11.621 - Type 2 diabetes mellitus with foot ulcer; L97.514 - Non-pressure chronic ulcer of other part of right foot with necrosis of bone Code(s): E11.621 - Type 2 diabetes mellitus with foot ulcer; L97.509 - Non-pressure chronic ulcer of other part of unspecified foot with unspecified severity Status: Acute Assessment and Plan: (4) Nausea & vomiting: Code(s): R11.2 - Nausea with vomiting, unspecified Status: Acute Assessment and Plan: Patient went to ED. Started on oral antibiotics. No admission to the hospital. Recommended f/u appt with PCP for further evaluation of weakness. Subjective Subjective Date/Time Seen: 02/21/23 08:55 Post Op day: 4 weeks Principal diagnosis: Right transmetatarsal amputation Interval history: [facility] follow-up 5 weeks, 5 days status post revision right transmetatarsal amputation. Wound VAC still on hold. Patient returned to ED after last visit but was released without admission to the hospital. Review of Systems Review of Systems: All systems reviewed & are unremarkable except as noted in HPI and below Exam Const: General: comfortable and no acute distress Resp: Effort & Inspection: normal respiratory effort Skin: Wounds: wounds noted Extrem: Other: Dressing removed right foot. Wound measures 9.5x2.0x1.0 cm. 80% good granulation tissue. 1st metatarsal bone with significant exposure and pressure on the dorsal skin, inhibiting full wound closure. Surrounding tissue with some swelling. No redness or warmth. No purulence. No malodor. No signs of progressing infection. Bleeding tissue noted. Psych: Mental Status: mental status grossly normal Objective Data Meds/Results Medications: Active Medications Generic Name Dose Route Start Last Admin Trade Name Freq PRN Reason Stop Dose Admin Silver Nitrate 1 each 02/10/23 09:20 Aquacel Ag Advantage Bandage (*Bkc) TOPICAL 05/12/23 23:55 PRN PRN Wound Care Silver Nitrate 1 applic 02/14/23 08:00 Silvergel (Elta) 45 Ml TOPICAL 05/16/23 23:55 PRN PRN Wound C
--- NOTE | 2023-02-24 09:12 | P.PNOP_ITS ---
Progress Note: A&P Assessment and Plan (1) Non-healing ulcer of foot: Qualifiers: Laterality: right Non-pressure ulcer stage: with necrosis of bone Qualified Code(s): L97.514 - Non-pressure chronic ulcer of other part of right foot with necrosis of bone Code(s): L97.509 - Non-pressure chronic ulcer of other part of unspecified foot with unspecified severity Status: Acute Assessment and Plan: Postoperative day 1. Excision of metatarsal bone and debridement of right foot. [facility] wound clinic for dressings. Medial side of incision closed with suture. May start silver gel and wet-to-dry dressing changes daily. Discontinue wound VAC. continue fracture boot for prote cted weight-bearing. Discussed need for edema control with elevation. Activity only as necessary. Follow-up in 4 days for dressing change at wound clinic. (2) Osteomyelitis of foot, right, acute: Code(s): M86.171 - Other acute osteomyelitis, right ankle and foot Status: Acute Subjective Subjective Date/Time Seen: 02/24/23 09:12 Post Op day: 1 Principal diagnosis: RT foot osteo Exam Const: General: comfortable and no acute distress Resp: Effort & Inspection: normal respiratory effort Skin: Wounds: wounds noted Extrem: Other: Dressing removed right foot. Lateral wound measures 5x1.3x0.2 cm. 80% good granulation tissue. Medial side now closed with suture. 2.0X0.2cm. Surrounding tissue with some swelling. No redness or warmth. No purulence. No malodor. No signs of progressing infection. Bleeding tissue noted. Psych: Mental Status: mental status grossly normal Objective Data Meds/Results Medications: Active Medications Generic Name Dose Route Start Last Admin Trade Name Freq PRN Reason Stop Dose Admin Silver Nitrate 1 each 02/10/23 09:20 Aquacel Ag Advantage Bandage (*Bkc) TOPICAL 05/12/23 23:55 PRN PRN Wound Care Silver Nitrate 1 applic 02/14/23 08:00 Silvergel (Elta) 45 Ml TOPICAL 05/16/23 23:55 PRN PRN Wound Care [facility]up [facility]illing [facility] Follow-up Hospital Follow-up: [id number] Post-op Follow Up
--- NOTE | 2023-02-28 08:53 | PM.PNORT ---
Progress Note: A&P Assessment and Plan (1) Non-healing ulcer of foot: Qualifiers: Laterality: right Non-pressure ulcer stage: with necrosis of bone Qualified Code(s): L97.514 - Non-pressure chronic ulcer of other part of right foot with necrosis of bone Code(s): L97.509 - Non-pressure chronic ulcer of other part of unspecified foot with unspecified severity Status: Acute Assessment and Plan: 5 days s/p excision of metatarsal bone and debridement of right foot. [facility] wound clinic for dressings. Medial side of incision closed with suture. Continue silver gel and wet-to-dry dressing changes daily. Continue fracture boot for protected weight-bearing. Discussed need for edema control with elevation. Activity only as necessary. Follow-up in 1 week for wound check. (2) Osteomyelitis of foot, right, acute: Code(s): M86.171 - Other acute osteomyelitis, right ankle and foot Status: Acute Subjective Subjective Date/Time Seen: 02/28/23 08:53 Post Op day: 5 Principal diagnosis: RT foot osteo Interval history: 5 days s/p debridement of right TMA due to 1st metatarsal exposure. 6 weeks, 5 days s/p previous revision and graft application. 3 months s/p right TMA. Patient presents to the [facility] wound clinic today for reevaluation. No new concerns today. Feeling well. No complaints of pain. Tolerating dressing changes well. Review of Systems Review of Systems: All systems reviewed & are unremarkable except as noted in HPI and below Exam Const: General: comfortable and no acute distress Resp: Effort & Inspection: normal respiratory effort Skin: Wounds: wounds noted Extrem: Other: Dressing removed right foot. Lateral wound measures 5x1.2x0.4 cm. 80% good granulation tissue. Medial side now closed with suture. 2.0X0.2cm. Surrounding tissue with some swelling. No redness or warmth. No purulence. No malodor. No signs of progressing infection. Bleeding tissue noted. Psych: Mental Status: mental status grossly normal Objective Data Meds/Results Medications: Active Medications Generic Name Dose Route Start Last Admin Trade Name Freq PRN Reason Stop Dose Admin Silver Nitrate 1 each 02/10/23 09:20 Aquacel Ag Advantage Bandage (*Bkc) TOPICAL 05/12/23 23:55 PRN PRN Wound Care Silver Nitrate 1 applic 02/14/23 08:00 Silvergel (Elta) 45 Ml TOPICAL 05/16/23 23:55 PRN PRN Wound Care
--- NOTE | 2023-03-07 08:26 | P.PNOP_ITS ---
Progress Note: A&P Assessment and Plan (1) Non-healing ulcer of foot: Qualifiers: Laterality: right Non-pressure ulcer stage: with necrosis of bone Qualified Code(s): L97.514 - Non-pressure chronic ulcer of other part of right foot with necrosis of bone Code(s): L97.509 - Non-pressure chronic ulcer of other part of unspecified foot with unspecified severity Status: Acute Assessment and Plan: 12 days s/p excision of metatarsal bone and debridement of right foot. [facility] wound clinic for dressings. Medial side of incision closed with suture. Suture removed today. Continue silver gel and wet-to-dry dressing changes daily. Continue fracture boot for protected weight-bearing. Discussed need for edema control with elevation. Activity only as necessary. Follow-up in 1 week for wound check. (2) Osteomyelitis of foot, right, acute: Code(s): M86.171 - Other acute osteomyelitis, right ankle and foot Status: Acute Subjective Subjective Date/Time Seen: 03/07/23 08:26 Post Op day: 12 days Principal diagnosis: rt foot osteo Interval history: Follow-up [facility]. Daily dressing change with silver gel. No interim complaints. Exam Const: General: comfortable and no acute distress Resp: Effort & Inspection: normal respiratory effort Skin: Wounds: wounds noted Extrem: Other: Dressing removed right foot. Lateral wound measures 4.5x1x0.2 cm. 90% good granulation tissue. Medial side now closed with suture. 2.0X0.2X1.0 cm. Surrounding tissue with some swelling. No redness or warmth. No purulence. No malodor. No signs of progressing infection. Bleeding tissue noted. Psych: Mental Status: mental status grossly normal Objective Data Meds/Results Medications: Active Medications Generic Name Dose Route Start Last Admin Trade Name Freq PRN Reason Stop Dose Admin Silver Nitrate 1 each 02/10/23 09:20 Aquacel Ag Advantage Bandage (*Bkc) TOPICAL 05/12/23 23:55 PRN PRN Wound Care Silver Nitrate 1 applic 02/14/23 08:00 Silvergel (Elta) 45 Ml TOPICAL 05/16/23 23:55 PRN PRN Wound Care
--- NOTE | 2023-03-14 08:25 | PM.PNORT ---
Progress Note: A&P Assessment and Plan (1) Non-healing ulcer of foot: Qualifiers: Laterality: right Non-pressure ulcer stage: with necrosis of bone Qualified Code(s): L97.514 - Non-pressure chronic ulcer of other part of right foot with necrosis of bone Code(s): L97.509 - Non-pressure chronic ulcer of other part of unspecified foot with unspecified severity Status: Acute Assessment and Plan: 2 weeks, 5 days s/p excision of metatarsal bone and debridement of right foot. [facility] wound clinic for dressings. Both medial and lateral wounds with 100% red/pink wound bed. Stop wet to dry dressings at this time. Begin silver gel and shaquille. Cover dry. Continue fracture boot for protected weight-bearing. Discussed need for edema control with elevation. Activity only as necessary. Follow-up in 2 weeks for wound check. (2) Osteomyelitis of foot, right, acute: Code(s): M86.171 - Other acute osteomyelitis, right ankle and foot Status: Acute Subjective Subjective Date/Time Seen: 03/14/23 08:25 Post Op day: 12 days Principal diagnosis: rt foot osteo Interval history: 2 weeks, 5 days s/p TMA revision. No new concerns today. Tolerating dressing changes well. Review of Systems Review of Systems: All systems reviewed & are unremarkable except as noted in HPI and below Exam Const: General: comfortable and no acute distress Resp: Effort & Inspection: normal respiratory effort Skin: Wounds: wounds noted Extrem: Other: Dressing removed right foot. Lateral wound measures 0.8x2.8x0.8 cm. 100% good granulation tissue. Medial side measures 0.8x2.4x1.3 cm, 100% red/pink wound bed. Surrounding tissue with some swelling. No redness or warmth. No purulence. No malodor. No signs of progressing infection. Bleeding tissue noted. Psych: Mental Status: mental status grossly normal Objective Data Meds/Results Medications: Active Medications Generic Name Dose Route Start Last Admin Trade Name Freq PRN Reason Stop Dose Admin Silver Nitrate 1 each 02/10/23 09:20 Aquacel Ag Advantage Bandage (*Bkc) TOPICAL 05/12/23 23:55 PRN PRN Wound Care Silver Nitrate 1 applic 02/14/23 08:00 Silvergel (Elta) 45 Ml TOPICAL 05/16/23 23:55 PRN PRN Wound Care
--- NOTE | 2023-03-28 08:25 | P.PNOP_ITS ---
Progress Note: A&P Assessment and Plan (1) Non-healing ulcer of foot: Qualifiers: Laterality: right Non-pressure ulcer stage: with necrosis of bone Qualified Code(s): L97.514 - Non-pressure chronic ulcer of other part of right foot with necrosis of bone Code(s): L97.509 - Non-pressure chronic ulcer of other part of unspecified foot with unspecified severity Status: Acute Assessment and Plan: 4 weeks, 5 days s/p excision of metatarsal bone and debridement of right foot. [facility] wound clinic for dressings. Both medial and lateral wounds with 100% red/pink wound bed. Continue silver gel and shaquille. Cover dry. Continue fracture boot for protected weight-bearing. Activity only as necessary. Follow-up in 2 weeks for wound check. (2) Osteomyelitis of foot, right, acute: Code(s): M86.171 - Other acute osteomyelitis, right ankle and foot Status: Acute Time Spent With Patient Time with patient: less than 15 minutes Subjective Subjective Date/Time Seen: 03/28/23 08:25 Principal diagnosis: rt foot osteo Interval history: 4 weeks, 5 days s/p TMA revision. No new concerns today. Tolerating dressing changes well. Review of Systems Review of Systems: All systems reviewed & are unremarkable except as noted in HPI and below Exam Const: General: comfortable and no acute distress Resp: Effort & Inspection: normal respiratory effort Skin: Wounds: wounds noted Extrem: Other: Dressing removed right foot. Lateral wound measures 0.4x1.6x0.3 cm. 100% good granulation tissue. Medial side measures 0.4x0.7x0.9 cm, 100% red/pink wound bed. Surrounding tissue with some swelling. No redness or warmth. No purulence. No malodor. No signs of progressing infection. Bleeding tissue noted. Psych: Mental Status: mental status grossly normal Objective Data Meds/Results Medications: Active Medications Generic Name Dose Route Start Last Admin Trade Name Freq PRN Reason Stop Dose Admin Silver Nitrate 1 each 02/10/23 09:20 Aquacel Ag Advantage Bandage (*Bkc) TOPICAL 05/12/23 23:55 PRN PRN Wound Care Silver Nitrate 1 applic 02/14/23 08:00 Silvergel (Elta) 45 Ml TOPICAL 05/16/23 23:55 PRN PRN Wound Care
--- NOTE | 2023-04-11 08:29 | PM.IMHP ---
H&P: HPI History of Present Illness Date/Time: 04/11/23 08:29 Chief Complaint: Right diabetic foot ulcer, status post transmetatarsal amputation Narrative: 57-year-old gentleman 10 weeks status post right revision transmetatarsal amputation for diabetic ulcer and osteomyelitis. Complicated by wound dehiscence and exposed bone. improvement with wound care. Presents now for follow-up [facility]. also with severe deformity left ankle and foot treated with custom ankle brace which is broken down. Review of Systems Review of Systems: All systems reviewed & are unremarkable except as noted in HPI and below Constitutional: Constitutional: Reports no additional constitutional complaints Eyes: Eyes: Reports no additional eye complaints ENT: Reports system reviewed and no additional complaints, except as documented and Reports Normal hearing present Cardiovascular: Cardiovascular: Reports no additional cardiovascular complaints Respiratory: Respiratory: Reports no additional respiratory complaints and Reports no additional respiratory complaints Gastrointestinal: Gastrointestinal: Reports no additional gastrointestinal complaints Musculoskeletal: Musculoskeletal: Reports no additional musculoskeletal complaints Integumentary/Breasts: Skin/Breast: Reports system reviewed and no additional complaints, except as docu and Reports as per HPI Neurologic: Reports system reviewed and no additional complaints, except as documented, Reports as per HPI and Reports Normal hearing present Psychiatric: Psychiatric: Reports no additional psychiatric complaints and Reports as per HPI Endocrine: Endocrine: Reports no additional endocrine complaints Hematologic/Lymphatic: Hematologic/Lymphatic: Reports no additional hematologic/lymphatic complaints Allergic/Immunologic: Allergic/Immunologic: Reports no additional allergic/immunologic complaints [facility] Past Medical History Medical History (Updated 04/11/23 @ 08:35 by Jacinto Whitaker MD) Arthritis Bicuspid aortic valve Severe aortic stenosis status post bioprosthetic aortic valve replacement. Cerebrovascular accident (09/21/20) Thought to be embolic in nature, on long-term anticoagulation. Residual dysarthria. 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 Required temporary dialysis for a few months in spring 2019. Combined systolic and diastolic congestive heart failure Echocardiogram dated 11/03/2020 showed mildly enlarged left ventricular chamber with normal left ventricular systolic function and ejection fraction of 55 to 60% (as low as 35% on previous echos), moderate increased LV wall thickness, grade 3 diastolic dysfunction, and mild mitral and tricuspid valve regurgitation. COVID-19 Diabetes Diabetic foot ulcer Diabetic foot ulcer Dialysis patient Encounter for central line placement End-stage renal disease on peritoneal dialysis Essential hypertension Finger fracture Former smoker 50 pack year smoking history, quit in 1987. Gastroesophageal reflux disease Hiatal hernia History of hemodialysis History of acute kidney injury on chronic kidney disease requiring hemodialysis in 2019. He has had a right IJ temporary dialysis catheter placed in 01/2020 and then a tunneled dialysis catheter in 02/2020, which was removed in 05/2020. History of osteomyelitis Hypertension Impingement syndrome of left shoulder Insulin dependent type 2 diabetes mellitus Complicated by nephropathy, neuropathy, and retinopathy. Mixed hyperlipidemia Nausea & vomiting Non-healing ulcer of foot Osteomyelitis of foot, right, acute Peripheral vascular disease Pneumonia Pneumonia Pneumonia Renal osteodystrophy Surgical History Surgical History (Reviewed 04/11/
== END 2023-05-01 23:59 | disposition home or self-care (01) ==
LOC: ANHWOC 07:33
PROVIDERS: PCP Family Medicine; Referring Provider Nurse Practitioner Family; Visit Provider Nurse Practitioner Family
DX: E10.621 Type 1 diabetes mellitus with foot ulcer (principal); L97.412 Non-pressure chronic ulcer of right heel and midfoot with fat layer exposed; M14.671 Charcot's joint, right ankle and foot
CPT/HCPCS: 97605; 99212; 99213; 99214; G0463

== ENCOUNTER → 2023-05-16 07:09 | Outpatient (CLI) | payer OTHER, MEDICARE, SELFPAY ==
--- NOTE | ~2023-05-16 | MR_ITS ---
MRI of the right foot Clinical history: Abscess TECHNIQUE: Sagittal T1-weighted and STIR images, axial T1-weighted, T2 fat-sat, and T1 fat-sat images , and coronal T1-weighted and proton-density fat-sat images were performed. FINDINGS: Exam is degraded by motion artifact. Patient is status post amputation of the foot at the p roximal level of the tarsometatarsal articulations, with several small metatarsal remnants present. T here is marrow edema in the lateral cuboid, with probable preservation of T1 signal. There is also pr obable mild marrow edema in the cuneiforms, again, with relatively preserved T1 marrow signal. There is mild degenerative change throughout the visualized articulations in the foot. There is a 1.8 x 1.4 x 1.0 cm fluid collection at the medial, plantar aspect of the foot (series 4 im ages 2723). Plantar fascia appears essentially intact. Small plantar calcaneal spur present. There is diffuse edematous change of the visualized musculature otherwise. IMPRESSION: 1.8 x 1.4 x 1.0 cm fluid collection at the medial, plantar aspect of the foot, which correlates with the site of the marker. This could reflect small abscess versus other fluid collection or soft tissue ulcer/sinus tract. Correlate with physical exam. Prior transmetatarsal indication the foot. Marrow edema in the lateral cuboid and the cuneiforms with preserved T1 marrow signal. Findings sugge st reactive marrow edema/stress response rather than osteomyelitis. Mild degenerative changes throughout the foot. Mild muscle edema throughout the visualized foot, nonspecific. Reviewed, dictated and finalized at [facility]. IMPRESSION: 1.8 x 1.4 x 1.0 cm fluid collection at the medial, plantar aspect of the foot, which correlates with the site of the marker. This could reflect small abscess versus other fluid collection or soft tissue ulcer/sinus tract. Correlate with physical exam. Prior transmetatarsal indication the foot. Marrow edema in the lateral cuboid and the cuneiforms with preserved T1 marrow signal. Findings suggest reactive marrow edema/stress response rather than oste omyelitis. Mild degenerative changes throughout the foot. Mild muscle edema throughout the visualized foot, nonspecific.
== END ==
PROVIDERS: PCP Family Medicine; Visit Provider Orthopaedic Surgery
DX: L02.611 Cutaneous abscess of right foot (principal)
CPT/HCPCS: 73718

== ENCOUNTER → 2023-05-17 10:02 | Outpatient (CLI) | payer OTHER, MEDICARE, SELFPAY ==
--- NOTE | ~2023-05-17 | CT_ITS ---
CT Scan of the Chest without Contrast: Clinical Indication: Pneumonia Technique: Contiguous sections were acquired throughout the chest without intravenous contrast. Dose reduction technique was used on this scan by utilizing automated exposure control and iterative recon struction technique. The dose-length product (DLP) was 418.69 mGy-cm. COMPARISON: 03/30/2023 Findings: There is no evidence of any significant mediastinal, hilar or axillary lymphadenopathy. Calcified sub carinal lymph nodes present. Patient is status post aortic valve replacement. There are extensive cor onary artery calcifications. There is no evidence of pleural or pericardial effusion. The lungs are clear. No pulmonary nodules or infiltrates are noted. Images through the upper abdomen reveal small amount of upper abdominal ascites. Impression: Clear lungs. Previously noted right upper lobe pneumonia is resolved. Small amount of upper bowel ascites, of uncertain etiology, similar to prior exam. Reviewed, dictated and finalized at location . Impression: Clear lungs. Previously noted right upper lobe pneumonia is resolved. Small amount of upper bowel ascites, of uncertain etiology, similar to prior ex am.
== END ==
PROVIDERS: PCP Physician Assistant; Visit Provider Physician Assistant
DX: J18.9 Pneumonia, unspecified organism (principal); R93.89 Abnormal findings on diagnostic imaging of other specified body structures
CPT/HCPCS: 71250

== ENCOUNTER 2023-07-12 00:54 | Day surgery (SDC) | payer OTHER, MEDICARE, SELFPAY ==
[2023-07-11 09:25] VITALS: BMI 26.2
--- NOTE | 2023-07-11 09:32 | PC.NURSE ---
Report to the Outpatient Waiting Room, entrance under the green pavilion located off [facility], at time 0700 on date 07/12/23. Planned Procedure Time: 0900. Time changes happen often and if your time is changed the preop area will call you the afternoon before. - You and your visitor will be asked to self-screen and do not enter if you have any COVID symptoms. - A mask is optional within the hospital at this time. Patients may have clear liquids (water, carbonated beverages, clear teas, apple juice) until 3 hours prior to surgery with a maximum of 20 ounces. - No food from midnight until time of surgery Take the following medications with a SIP of water the morning of surgery: LABETALOL, PREGABALIN, VENLAFAXINE DO NOT STOP ANY OF YOUR OTHER PRESCRIPTION MEDICATIONS PRIOR TO SURGERY ?EXCEPT THE FOLLOWING Medications to discontinue per physician: N/A Date to take last dose: N/A Please no make-up, nail malay, hairspray, perfume, deodorant, or body powder the day of surgery. No jewelry (including any body piercings) or valuables the day of surgery, leave them at home. Please take a shower or bath the night before, or the morning of, surgery with an antibacterial soap. Wear comfortable, loose fitting clothing. - Jewelry must be removed prior to entering the operating room. Rings and piercings that are not removed may be cut off. - The hospital will not accept responsibility for valuables. - Please leave all valuables, including medications, at home the day of surgery. If you are going home after surgery, a licensed interstate bus driver must drive you home. - NO public transportation without another adult if you receive anesthesia. - We recommend that an adult stay with you for 24 hours following discharge. - We also recommend that you do not drive, make important decision, drink alcoholic beverages, or take any drugs that were not prescribed by your health care provider for at least 24 hours after your discharge time. Follow any additional instructions given to you from your surgeon. If you or anyone in your household have experienced Covid symptoms in the past week, please notify your surgeon or the nurse liaison at the phone number below for possible testing. Telephone instructions given to PT - BAKARI CERDA and asked if any additional questions and then verbalized understanding. Patient advised to call surgeon office or pre surgery nurse liaison [phone] if any additional questions.
[2023-07-12] VITALS (11 sets, daily range): BP systolic 78–115; BP diastolic 56–88; PULSE 50–81; RESP 14–20; TEMP 36.1; O2SAT 94–100
--- NOTE | ~2023-07-12 | XR_ITS ---
EXAMINATION: XR surgery orthopedic DATE: 07/12/2023 10:32 INDICATION: Right foot debridement TECHNIQUE: 2 fluoroscopic images of the right foot were obtained during procedure performed by Dr. Clarence diaz. Radiologist was not present for the imaging or procedure. The amount of fluoroscopy time used during this procedure was 0.1 minutes. COMPARISON: 05/24/2023 FINDINGS: Right forefoot amputation with interval debridement with revision osteotomies along the distal tarsal row. No radiopaque foreign bodies identified. Expected lucent gas at the soft tissues along the oper ative bed. IMPRESSION: 1. Debridement with revision osteotomies along the distal tarsal row margin of a right forefoot amput ation. See procedure note for further detail. Reviewed, dictated and finalized at location A. IMPRESSION: 1. Debridement with revision osteotomies along the distal tarsal row margin of a right forefoot amputation. See procedure note for further detail.
--- NOTE | 2023-07-12 07:29 | WPDHPUPDATE1 ---
History and Physical Update Update Date/Time: 07/12/23 07:29 History and Physical has been reviewed, including an updated exam of the patient. There are NO changes in the patient's condition. Risks, benefits, and alternatives have been discussed and questions answered. Patient agrees to proceed with procedure.
[2023-07-12] MEDS: SODIUM CHLORIDE 0.9% IV 500 ML 30 ML IV CONT (07:49)
[2023-07-12] MEDS: ACETAMINOPHEN 500 MG TABLET 1000 MG PO (07:50)
[2023-07-12 08:27] LABS: INR 1.2; Prothrombin Time 15.6 Seconds (11.1-14.7)
[2023-07-12 08:28] LABS: Partial Thromboplastin Time 34.6 SECONDS (22.3-36.8)
--- NOTE | 2023-07-12 08:37 | WPDANESEPPF ---
Anes - Initial Pre Proc Eval Procedure: Operation Date: 07/12/23 09:00 Proposed Procedures p Incision and Debridement Right Foot - Jacinto Whitaker MD Date/Time: 07/12/23 08:37 Surgeon: Jacinto Whitaker MD Pre Op Diagnosis: right diabetic foot ulcer Patient Data Age: 57 Gender: M Height: 1.78 m Weight: 81 kg Last Vital Signs Temp 36.1 C L 07/12/23 07:41 Pulse 50 L 07/12/23 07:41 Resp 20 07/12/23 07:41 BP 111/88 07/12/23 07:41 Pulse Ox 100 07/12/23 07:41 O2 Del Method Room Air 07/12/23 07:41 Allergies Allergy/AdvReac Type Severity Reaction Status Date / Time No Known Allergies Allergy Verified 07/11/23 09:20 Home Medications Medication Instructions Recorded Confirmed Type calcitriol 0.5 mcg capsule 0.5 mcg PO QMWF 10/20/21 07/12/23 History famotidine 40 mg tablet 40 mg PO Q12H 10/20/21 07/12/23 History venlafaxine 100 mg tablet 100 mg PO Q12H 10/20/21 07/12/23 History aspirin 81 mg chewable tablet 81 mg PO DAILY #90 tabs 09/06/22 07/12/23 Rx lisinopril 10 mg tablet 10 mg PO DAILY 09/17/22 07/12/23 History sevelamer carbonate 800 mg tablet 1,600 mg PO TIDWM 11/24/22 07/12/23 History (Renvela) benzonatate 100 mg capsule 100 mg PO TID PRN cough #30 caps 05/19/23 07/12/23 Rx bumetanide 2 mg tablet 2 mg PO BID 07/11/23 07/12/23 History pregabalin 75 mg capsule 75 mg PO BID 07/11/23 07/12/23 History Laboratory Tests 07/12/23 07/12/23 07:38 08:12 PT 15.6 H Seconds (11.1-14.7) INR 1.2 APTT 34.6 SECONDS (22.3-36.8) Sodium Pending Potassium Pending Chloride Pending Carbon Dioxide Pending Anion Gap Pending BUN Pending Creatinine Pending Estim Creat Clear Calc Pending Estimated GFR Pending Glucose Pending Calcium Pending Patient hx anesthesia problems: none Family hx anesthesia problems: none Results Review: All pre-operative results and documents have been reviewed as part of the pre-operative evaluation. [facility] Past Medical History Medical History Arthritis Bicuspid aortic valve Severe aortic stenosis status post bioprosthetic aortic valve replacement. Cerebrovascular accident (09/21/20) Thought to be embolic in nature, on long-term anticoagulation. Residual dysarthria. 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 Required temporary dialysis for a few months in spring 2019. Combined systolic and diastolic congestive heart failure Echocardiogram dated 11/03/2020 showed mildly enlarged left ventricular chamber with normal left ventricular systolic function and ejection fraction of 55 to 60% (as low as 35% on previous echos), moderate increased LV wall thickness, grade 3 diastolic dysfunction, and mild mitral and tricuspid valve regurgitation. COVID-19 Diabetes Diabetic foot ulcer Diabetic foot ulcer Dialysis patient Encounter for central line placement End-stage renal disease on peritoneal dialysis Essential hypertension Finger fracture Foot abscess, right Former smoker 50 pack year smoking history, quit in 1987. Gastroesophageal reflux disease Hiatal hernia History of hemodialysis History of acute kidney injury on chronic kidney disease requiring hemodialysis in 2019. He has had a right IJ temporary dialysis catheter placed in 01/2020 and then a tunneled dialysis catheter in 02/2020, which was removed in 05/2020. History of osteomyelitis History of stroke with current residual effects Hypertension Impingement syndrome of left shoulder Insulin dependent type 2 diabetes mellitus Complicated by nephropathy, neuropathy, and retinopathy. Mixed hyperlipidemia Nausea &
[2023-07-12 08:53] LABS: Anion Gap 10 mmol/L (8-16); Blood Urea Nitrogen 51 mg/dL (9-20); Calcium 10.4 mg/dL (8.4-10.2); Carbon Dioxide 30 mmol/L (22-30); Chloride 92 mmol/L (98-107); Estimated CRCL calculation 8 ml/min; Estimated Glomerular Filt Rate 6; Glucose 99 mg/dL (65-110); Potassium 3.8 mmol/L (3.4-5.0); Sodium 132 mmol/L (137-145)
[2023-07-12] MEDS: ceFAZolin 2 GM/D5W 50 ML 2 GM/50 ML BAG IVPB (09:11)
[2023-07-12] MEDS: BUPivacaine HCL 0.5% PF 30 ML VIAL INFILTRATE (09:39)
--- NOTE | 2023-07-12 10:17 | P.OP_ITS ---
Procedure Note - Detailed Date of Procedure 07/12/23 Pre-op Diagnosis right diabetic foot ulcer Post-op Diagnosis Same Procedure Performed Revision transmetatarsal amputation right foot Surgeon Jacinto Whitaker MD Flakeboard Line Tender 1st bilingual teacher assistant Anesthesia General Indications 57-year-old who underwent previous transmetatarsal amputation. Presented with wound and ulceration over the lateral aspect with exposed bone. Necrotic tissue including fascia. Presents for operative treatment. Findings Exposed 4th and 5th metatarsal bone with necrosis. No purulence or abscess. Description of Procedure Patient identified in the preoperative holding. Informed consent given. Operative extremity marked. Patient received intravenous antibiotics. Patient brought to the operating room where underwent general anesthetic by anesthesia team. Positioned supine on operating room table. Time-out performed confirming the patient, site of the surgery and the plan. Right foot prepped draped usual sterile surgical fashion using a Betadine prep solution. Foot exsanguinated and calf tourniquet inflated to 200 mmHg. There was a 4.5 cm wound over the lateral aspect of the and of the previous transmetatarsal amputation. There is exposed bone. This was noted to be necrotic. 15 blade knife used to sharply excise the necrotic and devitalized skin, subcutaneous tissue and deep muscle layer that ontiveros d no signs of viability. Good bleeding tissue noted. The exposed metatarsals were transected at the base removed. The 4th and 5th metatarsal as well as a portion of the 3rd metatarsal were transected and removed. Remaining bone was smoothed with a rongeur. Image intensification was brought in and confirmed resection level. Wound was then thoroughly irrigated with saline. There was a nickel sized eschar on the plantar aspect of the foot. 15 blade knife was used to sharply excise the eschar and the surrounding devitalized tissue. This did not proceed through the dermis. Thorough irrigation once again. The wound was then closed with 2 Vicryl interrupted suture and 0 Prolene interrupted suture. Sterile dressing applied. The patient was then woken from anesthesia, extubated and taken to the recovery room in stable condition. All sponge, needle, instrument counts were correct at the end of the case. Estimated Blood Loss 30 Tourniquet Time 25 Drains No Packing No Pathology None sent Complications None Condition Stable Disposition PACU [facility] Billing Surgery - Charge Forward: Surgery Billing ([id number] RT)
[2023-07-12 10:31] LABS: Glucose Point of Care 83 mg/dl (65-105)
== END 2023-07-12 12:07 | disposition home or self-care (01) ==
PROVIDERS: Anesthesiology; PCP Family Medicine; Visit Provider Orthopaedic Surgery
PROC: (CPT 28805; principal; 2023-07-12 09:00)
DX: E11.621 Type 2 diabetes mellitus with foot ulcer (principal); L97.514 Non-pressure chronic ulcer of other part of right foot with necrosis of bone; E11.610 Type 2 diabetes mellitus with diabetic neuropathic arthropathy; I13.2 Hypertensive heart and chronic kidney disease with heart failure and with stage 5 chronic kidney disease, or end stage renal disease; I50.40 Unspecified combined systolic (congestive) and diastolic (congestive) heart failure; E11.22 Type 2 diabetes mellitus with diabetic chronic kidney disease; N18.6 End stage renal disease; Z99.2 Dependence on renal dialysis; E78.2 Mixed hyperlipidemia; D64.9 Anemia, unspecified; E11.51 Type 2 diabetes mellitus with diabetic peripheral angiopathy without gangrene; K21.9 Gastro-esophageal reflux disease without esophagitis; N25.0 Renal osteodystrophy; E11.21 Type 2 diabetes mellitus with diabetic nephropathy; E11.319 Type 2 diabetes mellitus with unspecified diabetic retinopathy without macular edema; I69.322 Dysarthria following cerebral infarction; I69.351 Hemiplegia and hemiparesis following cerebral infarction affecting right dominant side; Z79.82 Long term (current) use of aspirin; Z95.2 Presence of prosthetic heart valve; Z95.1 Presence of aortocoronary bypass graft; Z87.891 Personal history of nicotine dependence
CPT/HCPCS: 28805; 36415; 80048; 82948; 85610; 85730; 99199; A9270; J0690; J2405; J2704; J3010; J3370; J7040

== ENCOUNTER 2023-07-21 07:18 | Emergency (ER) | payer OTHER, MEDICARE, SELFPAY ==
[2023-07-21] VITALS (17 sets, daily range): BP systolic 109–170; BP diastolic 85–107; PULSE 97–111; RESP 13–27; TEMP 37–37.6; O2SAT 90–99
--- NOTE | ~2023-07-21 | CT_ITS ---
EXAMINATION: CT brain wo con DATE: 07/21/2023 08:41 INDICATION: Fall. TECHNIQUE: Computed tomography (CT) of the head was performed without intravenous contrast. The mA wa s adjusted according to patient size. Iterative reconstruction technique was employed. The dose-lengt h product was 605.33 mGy-cm. COMPARISON: Head CT 11/29/2022 FINDINGS: There are old infarcts in the frontal lobes, left frontoparietal region, and right occipita l lobe. There are small old infarct in right cerebellum. There is no intracranial hemorrhage, acute i nfarction, or abnormal intracranial mass lesion. The ventricles are normal in size. The paranasal sin uses are clear. The orbits are normal. The mastoid air cells are normal. There is cerumen in the righ t external auditory canal. IMPRESSION: 1. Old infarcts in the brain. Reviewed, dictated and finalized at location E.
--- NOTE | ~2023-07-21 | XR_ITS ---
EXAMINATION: XR chest 2V DATE: 07/21/2023 08:00 INDICATION: Weakness. Cough. Shortness of breath. TECHNIQUE: Frontal and lateral views of the chest were obtained. COMPARISON: Chest single view 02/16/2023 FINDINGS: A calcified right lung nodule and calcified right hilar lymph nodes are consistent with old granulomatous disease. There is no pneumonia, pleural effusion, or pneumothorax. The heart size is n ormal. Median sternotomy wires and mediastinal surgical clips are seen, likely from prior coronary ar joleen bypass grafting. There are old healed left rib fractures. IMPRESSION: 1. No acute cardiopulmonary disease. Reviewed, dictated and finalized at location E.
--- NOTE | ~2023-07-21 | CT_ITS ---
EXAMINATION: CT cervical spine wo con DATE: 07/21/2023 08:41 INDICATION: Neck pain. Fall. TECHNIQUE: Computed tomography (CT) of the cervical spine was performed without intravenous contrast. Automated exposure control and iterative reconstruction technique were employed. The dose-length pro duct was 573.40 mGy-cm. COMPARISON: None FINDINGS: Bone alignment is normal. Vertebral body heights are normal. There is severely decreased di sc height at C5-C6 and C6-C7. The following disc levels are specifically discussed: C2-C3: There is mild bilateral uncovertebral joint osteoarthritis. There is mild right and severe lef t facet joint osteoarthritis. There is mild left neural foraminal stenosis. There is no central canal stenosis. C3-C4: There is mild right and moderate left uncovertebral joint osteoarthritis. There is moderate ri ght and severe left facet joint osteoarthritis. There is mild left neural foraminal stenosis. There i s no central canal stenosis. C4-C5: There is mild bilateral uncovertebral joint osteoarthritis. There is mild bilateral facet join t osteoarthritis. There is no neural foraminal stenosis. There is no central canal stenosis. C5-C6: There is severe bilateral uncovertebral joint osteoarthritis. There is severe bilateral facet joint osteoarthritis. There is moderate right and mild left neural foraminal stenosis. There is mild central canal stenosis. C6-C7: There is severe bilateral uncovertebral joint osteoarthritis. There is severe bilateral facet joint osteoarthritis. There is mild bilateral neural foraminal stenosis. There is mild central canal stenosis. C7-T1: There is no uncovertebral joint osteoarthritis. There is mild right and severe left facet join t osteoarthritis. There is mild left neural foraminal stenosis. There is no central canal stenosis. IMPRESSION: 1. No fracture. 2. Severe cervical spondylosis. Reviewed, dictated and finalized at location E.
--- NOTE | 2023-07-21 07:27 | ECG_ITS ---
Measurements Intervals [place] Rate: 106 P: 22 TN: 152 QRS: -7 QRSD: 94 T: 84 QT: 363 QTc: 483 Interpretive Statements SINUS TACHYCARDIA DELAYED PRECORDIAL R/S TRANSITION CONSIDER INFERIOR INFARCT, AGE INDETERMINATE ST-T WAVE ABNORMALITY IN HIGH LATERAL LEADS- CONSIDER ISCHEMIA ABNORMAL ECG COMPARED TO ECG 02/16/2023 14:56:31 SINUS TACHYCARDIA NOW PRESENT Electronically Signed On 07-21-2023 8:37:13 CDT by Jairo French D.O.
[2023-07-21 07:46] LABS: Basophils Absolute Auto 0.1 K/mm3 (0.0-0.1); Basophils Percent Auto 0.5 % (0.2-1.2); Eosinophils Absolute Auto 0.1 K/mm3 (0-0.3); Eosinophils Percent Auto 0.5 % (0-4.4); Hemoglobin 10.2 g/dL (14.0-18.0); Immature Granulocyte Absolute 0.04 K/mm3 (0.00-0.031); Immature Granulocyte Percent A 0.3 % (0-0.5); Lymphocytes Absolute Auto 1.67 K/mm3 (0.9-3.2); Lymphocytes Percent Auto 14.2 % (18.3-44.2); Mean Corpuscular HGB Conc 31.9 g/dl (32-36); Mean Corpuscular Volume 90.9 fl (80-100); Mean Platelet Volume 10.5 fl (7.4-10.4); Monocytes Absolute Auto 1.1 K/mm3 (0.1-0.6); Monocytes Percent Auto 9.1 % (2.6-8.5); Neutrophils Absolute Auto 8.9 K/mm3 (1.3-6.7); Neutrophils Percent Auto 75.4 % (45.5-73.1); Platelet Count Result 269 k/mm3 (150-375); Red Blood Count 3.52 M/mm3 (4.6-6.20); Red Cell Distribution Width 15.6 % (11.5-14.5); White Blood Count 11.8 K/mm3 (4.5-10.0)
--- NOTE | 2023-07-21 07:50 | ED.WEAKNESS ---
HPI - Weakness General Chief complaint: Weakness Stated complaint: weakness, fell three times today Time Seen by Provider: 07/21/23 07:49 Source: patient and family Mode of arrival: ambulatory Limitations: no limitations History of Present Illness HPI Narrative: 57 years old white male came to the emergency room with his by private car complaining of multiple falls at least 3 times this morning when he tried to stand up and walk. History of chronic intermittent shaking, falling, was seen by neurologist and had a diagnosis of peripheral neuropathy and the possible systemic lupus, under investigation. Patient status post 3 surgery on the right foot last 1 was 1 week ago secondary to diabetic ulcer. Patient is status post amputation of the forefoot on the right side last time was seen by wound clinic 3 days ago. Patient reports patient tried to stand up today and fell forward struck his head on the ground, no loss of consciousness. Also patient coughed all the time, today is not different than months ago. History of diabetes, hypertension, hyperlipidemia, cardiac valve replacement, peripheral neuropathy, dementia, Alzheimer, currently on aspirin Patient on peritoneal dialysis, last 1 was last night. Patient denies any abdominal pain, denies any abnormality about the dialysis procedure or the color of the fluid. Related Data Home Medications Medication Instructions Recorded Confirmed venlafaxine 100 mg tablet 100 mg PO Q12H 10/20/21 07/12/23 lisinopril 10 mg tablet 10 mg PO DAILY 09/17/22 07/12/23 sevelamer carbonate 800 mg tablet 1,600 mg PO TIDWM 11/24/22 07/12/23 (Renvela) bumetanide 2 mg tablet 2 mg PO BID 07/11/23 07/12/23 pregabalin 75 mg capsule 75 mg PO BID 07/11/23 07/12/23 Allergies Allergy/AdvReac Type Severity Reaction Status Date / Time No Known Allergies Allergy Verified 07/21/23 07:33 Review of Systems Review of Systems: All systems reviewed & are unremarkable except as noted in HPI and below PMFSH Past Medical History Medical History Arthritis Bicuspid aortic valve Severe aortic stenosis status post bioprosthetic aortic valve replacement. Cerebrovascular accident (09/21/20) Thought to be embolic in nature, on long-term anticoagulation. Residual dysarthria. 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 Required temporary dialysis for a few months in spring 2019. Combined systolic and diastolic congestive heart failure Echocardiogram dated 11/03/2020 showed mildly enlarged left ventricular chamber with normal left ventricular systolic function and ejection fraction of 55 to 60% (as low as 35% on previous echos), moderate increased LV wall thickness, grade 3 diastolic dysfunction, and mild mitral and tricuspid valve regurgitation. COVID-19 Diabetes Diabetic foot ulcer Diabetic foot ulcer Dialysis patient Encounter for central line placement End-stage renal disease on peritoneal dialysis Essential hypertension Finger fracture Foot abscess, right Former smoker 50 pack year smoking history, quit in 1987. Gastroesophageal reflux disease Hiatal hernia History of hemodialysis History of acute kidney injury on chronic kidney disease requiring hemodialysis in 2019. He has had a right IJ temporary dialysis catheter placed in 01/2020 and then a tunneled dialysis catheter in 02/2020, which was removed in 05/2020. History of osteomyelitis History of stroke with current residual effects Hypertension Impingement syndrome of left shoulder Insulin dependent type 2 diabetes mellitus Complicated by nephropathy, neuropathy, and retinopathy. Mixed hyperlipidemia Nausea & vomiting Non-healing ulcer of foot Osteomyelitis of foot, right, acute P
[2023-07-21 07:56] LABS: Alanine Aminotransferase 10 U/L (6-50); Albumin Level 3.5 g/dL (3.5-5.1); Alkaline Phosphatase 181 U/L (38-126); Anion Gap 14 mmol/L (8-16); Aspartate Amino Transferase 20 U/L (17-59); Bilirubin,Total 0.4 mg/dL (0.2-1.3); Blood Urea Nitrogen 42 mg/dL (9-20); Calcium 9.4 mg/dL (8.4-10.2); Carbon Dioxide 25 mmol/L (22-30); Chloride 90 mmol/L (98-107); Estimated CRCL calculation 8 ml/min; Estimated Glomerular Filt Rate 6; Glucose 116 mg/dL (65-110); Potassium 3.6 mmol/L (3.4-5.0); Sodium 129 mmol/L (137-145)
[2023-07-21] MEDS: SODIUM CHLORIDE 0.9% IV 2,500 ML/1,000 ML BAG 999 ML IV CONT ×3 (08:19→10:01)
[2023-07-21 08:22] LABS: SARS-CoV-2 RNA PCR Negative (Negative)
[2023-07-21 08:52] LABS: Lactic Acid Reflex 1.7 mmol/L (0.7-2.0)
== END 2023-07-21 10:44 | disposition home or self-care (01) ==
PROVIDERS: Emergency Provider Emergency Medicine; PCP Family Medicine
DX: E11.42 Type 2 diabetes mellitus with diabetic polyneuropathy (principal); F03.90 Unspecified dementia, unspecified severity, without behavioral disturbance, psychotic disturbance, mood disturbance, and anxiety; R29.6 Repeated falls; Z91.81 History of falling; Z20.822 Contact with and (suspected) exposure to COVID-19; I13.2 Hypertensive heart and chronic kidney disease with heart failure and with stage 5 chronic kidney disease, or end stage renal disease; E11.22 Type 2 diabetes mellitus with diabetic chronic kidney disease; N18.6 End stage renal disease; I50.40 Unspecified combined systolic (congestive) and diastolic (congestive) heart failure; E11.319 Type 2 diabetes mellitus with unspecified diabetic retinopathy without macular edema; E11.21 Type 2 diabetes mellitus with diabetic nephropathy; E11.51 Type 2 diabetes mellitus with diabetic peripheral angiopathy without gangrene; I73.9 Peripheral vascular disease, unspecified; N25.0 Renal osteodystrophy; E78.2 Mixed hyperlipidemia; Z99.2 Dependence on renal dialysis; I35.0 Nonrheumatic aortic (valve) stenosis; I69.30 Unspecified sequelae of cerebral infarction; D64.9 Anemia, unspecified; K21.9 Gastro-esophageal reflux disease without esophagitis; Z95.1 Presence of aortocoronary bypass graft; Z95.2 Presence of prosthetic heart valve; Z87.891 Personal history of nicotine dependence; Z89.431 Acquired absence of right foot; Z89.412 Acquired absence of left great toe; Z79.82 Long term (current) use of aspirin; M47.812 Spondylosis without myelopathy or radiculopathy, cervical region; R00.0 Tachycardia, unspecified; R94.31 Abnormal electrocardiogram [ECG] [EKG]; W18.39XA Other fall on same level, initial encounter
CPT/HCPCS: 36415; 70450; 71046; 72125; 80053; 83605; 85025; 86140; 87040; 87635; 93005; 96360; 96361; 99284; J7030; J7040

== ENCOUNTER 2023-08-01 07:15 | Outpatient (RCR) | payer OTHER, MEDICARE, SELFPAY ==
[2023-05-02 00:04] VITALS: BMI 28.0
--- NOTE | 2023-05-09 09:19 | PM.PNORT ---
Progress Note: A&P Assessment and Plan (1) Non-healing ulcer of foot: Qualifiers: Laterality: right Non-pressure ulcer stage: with necrosis of bone Qualified Code(s): L97.514 - Non-pressure chronic ulcer of other part of right foot with necrosis of bone Code(s): L97.509 - Non-pressure chronic ulcer of other part of unspecified foot with unspecified severity Status: Acute Assessment and Plan: 11 weeks s/p excision of metatarsal bone and debridement of right foot. Wound now healed. May return to the transplant list for kidney. No open areas or signs of infection at this time. (2) Osteomyelitis of foot, right, acute: Code(s): M86.171 - Other acute osteomyelitis, right ankle and foot Status: Acute (3) Foot abscess, right: Code(s): L02.611 - Cutaneous abscess of right foot Status: Acute Assessment and Plan: plantar midfoot area of fluctuance and redness. Recommend MRI to evaluate for fluid collection or abscess. Subjective Subjective Date/Time Seen: 05/09/23 09:19 Post Op day: 11 weeks Principal diagnosis: right transmetatarsal amputation revision Interval history: follow-up for right foot. No interim complaints. He is now 11 weeks from revision transmetatarsal amputation. Exam Const: General: comfortable and no acute distress Resp: Effort & Inspection: normal respiratory effort Skin: Wounds: wounds noted Extrem: Other: Dressing removed right foot. wound healed with mild callus Central area. no open areas. Surrounding tissue with some swelling. No redness or warmth. No purulence. No malodor. No signs of progressing infection. Bleeding tissue noted. plantar midfoot with fluctuance and erythema noted. Tender to palpation. Psych: Mental Status: mental status grossly normal [facility] Follow[facility]up [facility]illing [facility] Follow-up Hospital Follow-up: [id number] Post-op Follow Up
--- NOTE | 2023-07-11 08:31 | PM.IMHP ---
H&P: HPI History of Present Illness Date/Time: 07/11/23 08:31 Chief Complaint: Foot ulcer Narrative: 57-year-old gentleman presents to the [facility] with a one-month history of right foot ulceration and drainage. Family noted opening of the distal aspect of the right foot about 1 month ago. Has been doing dressing changes in the interim. Noted that it has not really healed. Also has spot on the plantar aspect of the foot without drainage. Review of Systems Review of Systems: All systems reviewed & are unremarkable except as noted in HPI and below Constitutional: Constitutional: Reports no additional constitutional complaints Eyes: Eyes: Reports no additional eye complaints ENT: Reports system reviewed and no additional complaints, except as documented and Reports Normal hearing present Cardiovascular: Cardiovascular: Reports no additional cardiovascular complaints Respiratory: Respiratory: Reports no additional respiratory complaints and Reports no additional respiratory complaints Gastrointestinal: Gastrointestinal: Reports no additional gastrointestinal complaints Musculoskeletal: Musculoskeletal: Reports no additional musculoskeletal complaints Integumentary/Breasts: Skin/Breast: Reports system reviewed and no additional complaints, except as docu and Reports as per HPI Neurologic: Reports system reviewed and no additional complaints, except as documented, Reports as per HPI and Reports Normal hearing present Psychiatric: Psychiatric: Reports no additional psychiatric complaints and Reports as per HPI Endocrine: Endocrine: Reports no additional endocrine complaints Hematologic/Lymphatic: Hematologic/Lymphatic: Reports no additional hematologic/lymphatic complaints Allergic/Immunologic: Allergic/Immunologic: Reports no additional allergic/immunologic complaints [facility] Past Medical History Medical History Arthritis Bicuspid aortic valve Severe aortic stenosis status post bioprosthetic aortic valve replacement. Cerebrovascular accident (09/21/20) Thought to be embolic in nature, on long-term anticoagulation. Residual dysarthria. 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 Required temporary dialysis for a few months in spring 2019. Combined systolic and diastolic congestive heart failure Echocardiogram dated 11/03/2020 showed mildly enlarged left ventricular chamber with normal left ventricular systolic function and ejection fraction of 55 to 60% (as low as 35% on previous echos), moderate increased LV wall thickness, grade 3 diastolic dysfunction, and mild mitral and tricuspid valve regurgitation. COVID-19 Diabetes Diabetic foot ulcer Diabetic foot ulcer Dialysis patient Encounter for central line placement End-stage renal disease on peritoneal dialysis Essential hypertension Finger fracture Foot abscess, right Former smoker 50 pack year smoking history, quit in 1987. Gastroesophageal reflux disease Hiatal hernia History of hemodialysis History of acute kidney injury on chronic kidney disease requiring hemodialysis in 2019. He has had a right IJ temporary dialysis catheter placed in 01/2020 and then a tunneled dialysis catheter in 02/2020, which was removed in 05/2020. History of osteomyelitis History of stroke with current residual effects Hypertension Impingement syndrome of left shoulder Insulin dependent type 2 diabetes mellitus Complicated by nephropathy, neuropathy, and retinopathy. Mixed hyperlipidemia Nausea & vomiting Non-healing ulcer of foot Osteomyelitis of foot, right, acute Peripheral vascular disease Renal osteodystrophy Right hemiplegia Surgical History Surgical History (Reviewed 09
--- NOTE | 2023-07-14 09:20 | PM.IMHP ---
H&P: HPI History of Present Illness Date/Time: 07/14/23 09:20 Chief Complaint: Post op Right TMA debridement/revision Narrative: Patient presents to the the [facility] wound clinic 2 days s/p debridement and revision of right TMA. Patient is currently on oral antibiotics. Tolerating splint well. No fevers, chills, night sweats, nausea, vomiting or diarrhea. No new concerns. Review of Systems Review of Systems: All systems reviewed & are unremarkable except as noted in HPI and below PMFSH Past Medical History Medical History Arthritis Bicuspid aortic valve Severe aortic stenosis status post bioprosthetic aortic valve replacement. Cerebrovascular accident (09/21/20) Thought to be embolic in nature, on long-term anticoagulation. Residual dysarthria. 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 Required temporary dialysis for a few months in spring 2019. Combined systolic and diastolic congestive heart failure Echocardiogram dated 11/03/2020 showed mildly enlarged left ventricular chamber with normal left ventricular systolic function and ejection fraction of 55 to 60% (as low as 35% on previous echos), moderate increased LV wall thickness, grade 3 diastolic dysfunction, and mild mitral and tricuspid valve regurgitation. COVID-19 Diabetes Diabetic foot ulcer Diabetic foot ulcer Dialysis patient Encounter for central line placement End-stage renal disease on peritoneal dialysis Essential hypertension Finger fracture Foot abscess, right Former smoker 50 pack year smoking history, quit in 1987. Gastroesophageal reflux disease Hiatal hernia History of hemodialysis History of acute kidney injury on chronic kidney disease requiring hemodialysis in 2019. He has had a right IJ temporary dialysis catheter placed in 01/2020 and then a tunneled dialysis catheter in 02/2020, which was removed in 05/2020. History of osteomyelitis History of stroke with current residual effects Hypertension Impingement syndrome of left shoulder Insulin dependent type 2 diabetes mellitus Complicated by nephropathy, neuropathy, and retinopathy. Mixed hyperlipidemia Nausea & vomiting Non-healing ulcer of foot Osteomyelitis of foot, right, acute Peripheral vascular disease Renal osteodystrophy Right hemiplegia Surgical History Surgical History Amputation of left great toe (2019) Secondary to osteomyelitis. History of aortic valve replacement (07/24/20) 25 mm Inspiris bioprosthetic valve per Dr. Nam Daniels at [facility]. History of carpal tunnel release History of coronary artery bypass graft x 1 (07/24/20) Saphenous vein graft to obtuse marginal per Dr. Nam Daniels at [facility]. History of tonsillectomy S/P CABG x 1 (~07/24/20) Family History Family History Mother Family history of arthritis Family history of diabetes mellitus in first degree relative Family history of malignant neoplasm of breast in first degree relative Family history of coronary artery disease Alive and well Hypertension Father Malignant neoplasm of prostate Hypertension Sibling Family history of diabetes mellitus in first degree relative Sibling Family history of diabetes mellitus in first degree relative Social History Social History Social History: The patient lives with his in [place]. He has 3 adult children and 2 step children. Smoked 2 packs of cigarettes per day for 25 years and quit in 2007. No alcohol or illicit substance abuse. He worked at a [employer] for many years. He designates his , Aishwarya Bautista, as his surrogate decision
--- NOTE | 2023-07-18 08:47 | PM.IMHP ---
H&P: HPI History of Present Illness Date/Time: 07/18/23 08:47 Chief Complaint: Post op Right TMA debridement/revision Narrative: Patient presents to the the [facility] wound clinic 6 days s/p debridement and revision of right TMA. Patient is currently on oral antibiotics. Tolerating splint well. No fevers, chills, night sweats, nausea, vomiting or diarrhea. No new concerns. Review of Systems Review of Systems: All systems reviewed & are unremarkable except as noted in HPI and below PMFSH Past Medical History Medical History Arthritis Bicuspid aortic valve Severe aortic stenosis status post bioprosthetic aortic valve replacement. Cerebrovascular accident (09/21/20) Thought to be embolic in nature, on long-term anticoagulation. Residual dysarthria. 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 Required temporary dialysis for a few months in spring 2019. Combined systolic and diastolic congestive heart failure Echocardiogram dated 11/03/2020 showed mildly enlarged left ventricular chamber with normal left ventricular systolic function and ejection fraction of 55 to 60% (as low as 35% on previous echos), moderate increased LV wall thickness, grade 3 diastolic dysfunction, and mild mitral and tricuspid valve regurgitation. COVID-19 Diabetes Diabetic foot ulcer Diabetic foot ulcer Dialysis patient Encounter for central line placement End-stage renal disease on peritoneal dialysis Essential hypertension Finger fracture Foot abscess, right Former smoker 50 pack year smoking history, quit in 1987. Gastroesophageal reflux disease Hiatal hernia History of hemodialysis History of acute kidney injury on chronic kidney disease requiring hemodialysis in 2019. He has had a right IJ temporary dialysis catheter placed in 01/2020 and then a tunneled dialysis catheter in 02/2020, which was removed in 05/2020. History of osteomyelitis History of stroke with current residual effects Hypertension Impingement syndrome of left shoulder Insulin dependent type 2 diabetes mellitus Complicated by nephropathy, neuropathy, and retinopathy. Mixed hyperlipidemia Nausea & vomiting Non-healing ulcer of foot Osteomyelitis of foot, right, acute Peripheral vascular disease Renal osteodystrophy Right hemiplegia Surgical History Surgical History Amputation of left great toe (2019) Secondary to osteomyelitis. History of aortic valve replacement (07/24/20) 25 mm Inspiris bioprosthetic valve per Dr. Nam Daniels at [facility]. History of carpal tunnel release History of coronary artery bypass graft x 1 (07/24/20) Saphenous vein graft to obtuse marginal per Dr. Nam Daniels at [facility]. History of tonsillectomy S/P CABG x 1 (~07/24/20) Family History Family History Mother Family history of arthritis Family history of diabetes mellitus in first degree relative Family history of malignant neoplasm of breast in first degree relative Family history of coronary artery disease Alive and well Hypertension Father Malignant neoplasm of prostate Hypertension Sibling Family history of diabetes mellitus in first degree relative Sibling Family history of diabetes mellitus in first degree relative Social History Social History Social History: The patient lives with his in [place]. He has 3 adult children and 2 step children. Smoked 2 packs of cigarettes per day for 25 years and quit in 2007. No alcohol or illicit substance abuse. He worked at a [employer] for many years. He designates his , Aishwarya Bautista, as his surrogate decision
--- NOTE | 2023-07-25 09:03 | PM.IMHP ---
H&P: HPI History of Present Illness Date/Time: 07/25/23 09:03 Chief Complaint: Post op Right TMA debridement/revision Narrative: Patient presents to the the [facility] wound clinic 2 weeks s/p debridement and revision of right TMA. Patient is currently on oral antibiotics. Tolerating dressing changes well. No fevers, chills, night sweats, nausea, vomiting or diarrhea. Patient was seen in the ED at the end of last week due to weakness. Still on kidney transplant list hold due to wounds. Review of Systems Review of Systems: All systems reviewed & are unremarkable except as noted in HPI and below PMFSH Past Medical History Medical History Arthritis Bicuspid aortic valve Severe aortic stenosis status post bioprosthetic aortic valve replacement. Cerebrovascular accident (09/21/20) Thought to be embolic in nature, on long-term anticoagulation. Residual dysarthria. 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 Required temporary dialysis for a few months in spring 2019. Combined systolic and diastolic congestive heart failure Echocardiogram dated 11/03/2020 showed mildly enlarged left ventricular chamber with normal left ventricular systolic function and ejection fraction of 55 to 60% (as low as 35% on previous echos), moderate increased LV wall thickness, grade 3 diastolic dysfunction, and mild mitral and tricuspid valve regurgitation. COVID-19 Diabetes Diabetic foot ulcer Diabetic foot ulcer Dialysis patient Encounter for central line placement End-stage renal disease on peritoneal dialysis Essential hypertension Finger fracture Foot abscess, right Former smoker 50 pack year smoking history, quit in 1987. Gastroesophageal reflux disease Hiatal hernia History of hemodialysis History of acute kidney injury on chronic kidney disease requiring hemodialysis in 2019. He has had a right IJ temporary dialysis catheter placed in 01/2020 and then a tunneled dialysis catheter in 02/2020, which was removed in 05/2020. History of osteomyelitis History of stroke with current residual effects Hypertension Impingement syndrome of left shoulder Insulin dependent type 2 diabetes mellitus Complicated by nephropathy, neuropathy, and retinopathy. Mixed hyperlipidemia Nausea & vomiting Non-healing ulcer of foot Osteomyelitis of foot, right, acute Peripheral vascular disease Renal osteodystrophy Right hemiplegia Surgical History Surgical History Amputation of left great toe (2019) Secondary to osteomyelitis. History of aortic valve replacement (07/24/20) 25 mm Inspiris bioprosthetic valve per Dr. Nam Daniels at [facility]. History of carpal tunnel release History of coronary artery bypass graft x 1 (07/24/20) Saphenous vein graft to obtuse marginal per Dr. Nam Daniels at [facility]. History of tonsillectomy S/P CABG x 1 (~07/24/20) Family History Family History Mother Family history of arthritis Family history of diabetes mellitus in first degree relative Family history of malignant neoplasm of breast in first degree relative Family history of coronary artery disease Alive and well Hypertension Father Malignant neoplasm of prostate Hypertension Sibling Family history of diabetes mellitus in first degree relative Sibling Family history of diabetes mellitus in first degree relative Social History Social History Social History: The patient lives with his in [place]. He has 3 adult children and 2 step children. Smoked 2 packs of cigarettes per day for 25 years and quit in 2007. No alcohol or illicit substance abuse.
--- NOTE | 2023-08-01 08:47 | PM.IMHP ---
H&P: HPI History of Present Illness Date/Time: 08/01/23 08:47 Chief Complaint: Post op Right TMA debridement/revision Narrative: Patient presents to the the [facility] wound clinic 3 weeks s/p debridement and revision of right TMA. Patient is currently on oral antibiotics. Tolerating dressing changes well. No fevers, chills, night sweats, nausea, vomiting or diarrhea. Review of Systems Review of Systems: All systems reviewed & are unremarkable except as noted in HPI and below PMFSH Past Medical History Medical History Arthritis Bicuspid aortic valve Severe aortic stenosis status post bioprosthetic aortic valve replacement. Cerebrovascular accident (09/21/20) Thought to be embolic in nature, on long-term anticoagulation. Residual dysarthria. 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 Required temporary dialysis for a few months in spring 2019. Combined systolic and diastolic congestive heart failure Echocardiogram dated 11/03/2020 showed mildly enlarged left ventricular chamber with normal left ventricular systolic function and ejection fraction of 55 to 60% (as low as 35% on previous echos), moderate increased LV wall thickness, grade 3 diastolic dysfunction, and mild mitral and tricuspid valve regurgitation. COVID-19 Diabetes Diabetic foot ulcer Diabetic foot ulcer Dialysis patient Encounter for central line placement End-stage renal disease on peritoneal dialysis Essential hypertension Finger fracture Foot abscess, right Former smoker 50 pack year smoking history, quit in 1987. Gastroesophageal reflux disease Hiatal hernia History of hemodialysis History of acute kidney injury on chronic kidney disease requiring hemodialysis in 2019. He has had a right IJ temporary dialysis catheter placed in 01/2020 and then a tunneled dialysis catheter in 02/2020, which was removed in 05/2020. History of osteomyelitis History of stroke with current residual effects Hypertension Impingement syndrome of left shoulder Insulin dependent type 2 diabetes mellitus Complicated by nephropathy, neuropathy, and retinopathy. Mixed hyperlipidemia Nausea & vomiting Non-healing ulcer of foot Osteomyelitis of foot, right, acute Peripheral vascular disease Renal osteodystrophy Right hemiplegia Surgical History Surgical History Amputation of left great toe (2019) Secondary to osteomyelitis. History of aortic valve replacement (07/24/20) 25 mm Inspiris bioprosthetic valve per Dr. Nam Daniels at [facility]. History of carpal tunnel release History of coronary artery bypass graft x 1 (07/24/20) Saphenous vein graft to obtuse marginal per Dr. Nam Daniels at [facility]. History of tonsillectomy S/P CABG x 1 (~07/24/20) Family History Family History Mother Family history of arthritis Family history of diabetes mellitus in first degree relative Family history of malignant neoplasm of breast in first degree relative Family history of coronary artery disease Alive and well Hypertension Father Malignant neoplasm of prostate Hypertension Sibling Family history of diabetes mellitus in first degree relative Sibling Family history of diabetes mellitus in first degree relative Social History Social History Social History: The patient lives with his in [place]. He has 3 adult children and 2 step children. Smoked 2 packs of cigarettes per day for 25 years and quit in 2007. No alcohol or illicit substance abuse. He worked at a [employer] for many years. He designates his , Aishwarya Bautista, as his surrogate decision maker
== END 2023-08-07 23:59 | disposition home or self-care (01) ==
LOC: ANHWOC 07:15
PROVIDERS: PCP Family Medicine; Referring Provider Nurse Practitioner Family; Visit Provider Nurse Practitioner Family
DX: E10.621 Type 1 diabetes mellitus with foot ulcer (principal); L97.412 Non-pressure chronic ulcer of right heel and midfoot with fat layer exposed; M14.671 Charcot's joint, right ankle and foot
CPT/HCPCS: 99213; G0463

== ENCOUNTER 2023-08-08 07:45 | Outpatient (RCR) | payer OTHER, MEDICARE, SELFPAY ==
[2023-08-08 00:03] VITALS: BMI 28.0
--- NOTE | 2023-08-08 08:24 | PM.PNORT ---
Progress Note: A&P Assessment and Plan (1) Non-healing ulcer of foot: Qualifiers: Laterality: right Non-pressure ulcer stage: with necrosis of bone Qualified Code(s): L97.514 - Non-pressure chronic ulcer of other part of right foot with necrosis of bone Code(s): L97.509 - Non-pressure chronic ulcer of other part of unspecified foot with unspecified severity Status: Acute Assessment and Plan: 4 weeks status post revision transmetatarsal amputation complicated by postoperative wound dehiscence. Some possible mild signs of healing. Recommend continue with Pennie and wet to dry dressings. Offloading with fracture boot. Follow-up in 1 week. Discussed possible improvement and healing versus worsening which would require amputation. Patient/ family verbalized understanding. (2) Osteomyelitis of foot, right, acute: Code(s): M86.171 - Other acute osteomyelitis, right ankle and foot Status: Acute (3) Foot abscess, right: Code(s): L02.611 - Cutaneous abscess of right foot Status: Acute Assessment and Plan: plantar midfoot area Dry with callus. Subjective Subjective Date/Time Seen: 08/08/23 08:24 Post Op day: 4weeks Principal diagnosis: Right foot osteomyelitis Interval history: follow-up [facility] wound clinic. 4 weeks status post revision transmetatarsal amputation right foot. Complicated by wound dehiscence. Now doing dressing changes. Exam Neuro: General: oriented to person, oriented to place and oriented to time Speech: normal speech Extrem: Other: Incision no longer approximated. Overall incision dehiscence measures3.5x2.2x1.7 cm without Tunneling. Palpable bone at wound depth. Plantar foot with a dry wound measuring 0.8x1.2 cm. Wound on the medial aspect of the left foot Unable to be measured today. Patient refused to have the left foot looked at. Psych: Mental Status: mental status grossly normal Affect: normal affect [facility] Follow-up [facility]illing [facility] Follow-up Hospital Follow-up: [id number] Post-op Follow Up
--- NOTE | 2023-08-14 10:17 | PCWOUND ---
WOCN NOTE Patients called to cancel his appointment for tomorrow 08/15/23. Patient is admitted to [facility] for a right foot infection, states he will be having both of his legs amputated due to foot infections. Spouse to keep us updated on patient status. Spoke with Gema RAMIREZ for Dr. Whitaker to inform of cancellation.
== END 2023-09-11 09:02 | disposition home or self-care (01) ==
LOC: ANHWOC 07:45
PROVIDERS: PCP Family Medicine; Referring Provider Nurse Practitioner Family; Visit Provider Nurse Practitioner Family
DX: E10.621 Type 1 diabetes mellitus with foot ulcer (principal); L97.412 Non-pressure chronic ulcer of right heel and midfoot with fat layer exposed; M14.671 Charcot's joint, right ankle and foot
CPT/HCPCS: 99213; G0463

== ENCOUNTER 2023-10-09 11:12 | Emergency (ER) | payer MEDICARE, OTHER, SELFPAY ==
[2023-10-09] VITALS (38 sets, daily range): BP systolic 165–214; BP diastolic 99–125; PULSE 71–95; RESP 13–38; TEMP 35.9; O2SAT 87–100
--- NOTE | ~2023-10-09 | XR_ITS ---
XR chest 1V portable 10/09/2023 18:22 Indication: Dyspnea Procedure: AP portable chest Comparison: Comparison to multiple prior studies sequentially, with oldest reviewed study dated 02/10. Findings: Cardiomegaly. Status post median sternotomy for CABG. There is a prosthetic aortic valve. T here are healed left rib fractures. Dual-lumen central venous catheter tip in the SVC. Mild interstit ial edema. Impression: 1: Mild interstitial edema Reviewed, dictated and finalized at location A. LY SERVICE ASSISTANT Impression: 1: Mild interstitial edema
--- NOTE | ~2023-10-09 | CT_ITS ---
EXAMINATION: CT abdomen pelvis wo con DATE: 10/09/2023 13:04 INDICATION: Elevated liver enzymes TECHNIQUE: Computed tomography (CT) of the abdomen and pelvis was performed without intravenous contr ast. Automated exposure control and iterative reconstruction technique were employed. The dose-length product was 680.46 mGy-cm. COMPARISON: 01/16/2023 FINDINGS: Calcified right lower lobe nodule and calcified right hilar and mediastinal lymph nodes consistent wi th old granulomatous disease. No pleural effusion. Mild cardiomegaly. Atherosclerotic coronary artery calcifications and/or stenting. Median sternotomy wires and aortic valve repair. There are retained epicardial pacemaker leads along the anterior heart. No pericardial effusion. A few tiny hepatic and splenic calcific a cyst consistent with old granulomatous disease. Tiny gallstones layering in the de pendent aspect of the nondilated gallbladder. Pancreas, bilateral adrenal glands are normal. There is moderate bilateral renal atrophy. Small amount of ascites scattered throughout the abdomen and pelvi s. Bowels including the appendix are normal. Diffuse wall thickening of the bladder due at least in p art to the partially decompressed state. Small fat-containing right inguinal hernia. There is calcifi ed atherosclerosis of the aorta and many of the other arteries. No pathologically enlarged abdominal or pelvic lymphadenopathy. Small left periumbilical tract of stranding in the subcutaneous tissues li darrell representing site of a subcutaneous injection. Small fat-containing right inguinal hernia. Mild lumbar and moderate lower thoracic spondylosis. Small enchondroma with ring and arc-like chondroid ma trix at the intratrochanteric proximal right femur. IMPRESSION: 1. Cardiomegaly. 2. Small amount of nonspecific diffuse ascites throughout the abdomen and pelvis. 3. Cholelithiasis. When 4. Moderate bilateral renal atrophy. 5. Diffuse bladder wall thickening to at least in part to partially decompressed state. Differentials also include sequela chronic outlet obstruction or cystitis either acute or chronic. Correlate with urinalysis. 6. Small fat-containing right inguinal hernia. Reviewed, dictated and finalized at location A. PRESS OPERATOR HELPER OFFSET IMPRESSION: 1. Cardiomegaly. 2. Small amount of nonspecific diffuse ascites throughout the abdomen and pelvi s. 3. Cholelithiasis. When 4. Moderate bilateral renal atrophy. 5. Diffuse bladder wall thickening to at least in part to partially decompresse d state. Differentials also include sequela chronic outlet obstruction or cysti tis either acute or chronic. Correlate with urinalysis. 6. Small fat-containing right inguinal hernia.
[2023-10-09 11:35] LABS: Basophils Percent Auto 0.3 % (0.2-1.2); Hematocrit 32.9 % (42.0-52.0); Hemoglobin 9.8 g/dL (14.0-18.0); Immature Granulocyte Percent A 0.9 % (0-0.5); Lymphocytes Absolute Auto 1.22 K/mm3 (0.9-3.2); Lymphocytes Percent Auto 10.5 % (18.3-44.2); Mean Corpuscular HGB Conc 29.8 g/dl (32-36); Mean Corpuscular Hemoglobin 29.5 pg (26-34); Mean Corpuscular Volume 99.1 fl (80-100); Mean Platelet Volume 11.1 fl (7.4-10.4); Monocytes Absolute Auto 1.2 K/mm3 (0.1-0.6); Monocytes Percent Auto 9.9 % (2.6-8.5); Neutrophils Absolute Auto 9.1 K/mm3 (1.3-6.7); Neutrophils Percent Auto 78.4 % (45.5-73.1); Nucleated Red Blood Cells Perc 0.2 % (0.0-0.2); Platelet Count Result 169 k/mm3 (150-375); Red Blood Count 3.32 M/mm3 (4.6-6.20); Red Cell Distribution Width 15.8 % (11.5-14.5); White Blood Count 11.6 K/mm3 (4.5-10.0)
[2023-10-09 11:54] LABS: Albumin Level 4.1 g/dL (3.5-5.1); Alkaline Phosphatase 187 U/L (38-126); Anion Gap 22 mmol/L (8-16); Bilirubin,Total 1.6 mg/dL (0.2-1.3); Blood Urea Nitrogen 51 mg/dL (9-20); Calcium 10.4 mg/dL (8.4-10.2); Carbon Dioxide 13 mmol/L (22-30); Chloride 100 mmol/L (98-107); Estimated Glomerular Filt Rate 8; Glucose 54 mg/dL (65-110); Lipase 349 U/L (23-300); Sodium 135 mmol/L (137-145)
--- NOTE | 2023-10-09 12:00 | ECG_ITS ---
Measurements Intervals [place] Rate: 91 P: 21 NC: 162 QRS: 5 QRSD: 103 T: 25 QT: 404 QTc: 498 Interpretive Statements SINUS RHYTHM INFERIOR MYOCARDIAL INFARCTION , PROBABLY OLD [40+ ms Q WAVE AND/OR ST/T ABNORMALITY IN II/aVF] ABNORMAL ECG COMPARED TO ECG 07/21/2023 07:34:36 SINUS RHYTHM NOW PRESENT Electronically Signed On 10-09-2023 17:17:28 OCEAN EXPORT ACCOUNT MANAGER by Seven Wagner M.D.
--- NOTE | 2023-10-09 12:22 | PC.NURSE ---
MD villagomez made aware of blood glucose 47. patient alert and oriented x4.
[2023-10-09 12:25] LABS: Alanine Aminotransferase > 3750 U/L (6-50)
--- NOTE | 2023-10-09 12:33 | PC.NURSE ---
Patient is dialysis patient and states he doesn't make urine frequently. States he will let RN know if feels urge to urinate to provide urine sample. last time patient went to dialysis was monday. normally goes monday, , monday.
[2023-10-09 12:37] LABS: Glucose Point of Care 47 mg/dl (65-105)
[2023-10-09 12:38] LABS: Aspartate Amino Transferase 7159 U/L (17-59)
--- NOTE | 2023-10-09 12:43 | PC.NURSE ---
MD Wood aware of patient blood pressure being 205/121. awaiting orders at this time.
[2023-10-09] MEDS: SODIUM CHLORIDE 0.9% IV 1,000 ML 999 ML IV CONT (13:05)
[2023-10-09] MEDS: DEXTROSE 50% 25 GM/50 ML SYRINGE IV PUSH (13:05)
[2023-10-09] MEDS: LABETALOL HCL INJ 100 MG/20 ML VIAL 10 MG IV PUSH ×3 (13:06→20:13)
[2023-10-09] MEDS: PANTOPRAZOLE SODIUM IV 40 MG VIAL 80 MG IV PUSH (13:06)
--- NOTE | 2023-10-09 13:22 | PC.NURSE ---
called lab to add on labs at this time. Lab will add on labs per orders.
[2023-10-09 13:35] LABS: INR 2.5; Prothrombin Time 28.9 Seconds (11.1-14.7)
[2023-10-09 13:38] LABS: Partial Thromboplastin Time 39.7 SECONDS (22.3-36.8)
[2023-10-09] MEDS: PANTOPRAZOLE SODIUM IV 80 MG in SODIUM CHLORIDE 0.9% IV 500 ML 50 MG IV CONT (13:48)
[2023-10-09 13:54] LABS: Glucose Point of Care 124 mg/dl (65-105)
[2023-10-09 14:08] LABS: Acetaminophen < 10 ug/mL (10-30); Ethanol < 10 mg/dL (<10)
--- NOTE | 2023-10-09 14:28 | ED_ITS ---
HPI - General Adult General Chief complaint: Nausea/Vomiting/Diarrhea Stated complaint: vomiting, abd pain, pale Time Seen by Provider: 10/09/23 12:11 History of Present Illness HPI narrative: patient presents the emergency department with persistent nausea vomiting and diarrhea over the past couple days. He recently had a right BK a amputation as well as a revision of the left BKA amputation done at [facility]. He has some mild upper abdominal discomfort. However mostly the diarrhea. describes as like coffee-ground . He is pleasant and in no acute distress. Related Data Home Medications Medication Instructions Recorded Confirmed sevelamer carbonate 800 mg tablet 1,600 mg PO TIDWM 11/24/22 10/09/23 (Renvela) bumetanide 2 mg tablet 2 mg PO DAILY 07/11/23 10/09/23 pregabalin 75 mg capsule 75 mg PO DAILY 07/11/23 10/09/23 calcitriol 0.25 mcg capsule 0.25 mcg PO MOWEFR 09/19/23 10/09/23 cholecalciferol (vitamin D3) 50 2,000 unit PO DAILY 09/19/23 10/09/23 mcg (2,000 unit) tablet docusate sodium 100 mg capsule 100 mg PO DAILY 09/19/23 10/09/23 famotidine 20 mg tablet 20 mg PO DAILY 09/19/23 10/09/23 hydralazine 25 mg tablet 50 mg PO TID 10/09/23 10/09/23 lisinopril 10 mg tablet 10 mg PO DAILY 10/09/23 10/09/23 venlafaxine 75 mg tablet 75 mg PO TID 10/09/23 10/09/23 Allergies Allergy/AdvReac Type Severity Reaction Status Date / Time No Known Allergies Allergy Verified 10/09/23 09:26 Review of Systems Review of Systems: Negative except what is documented in the HPI [facility] Past Medical History Medical History Arthritis Bicuspid aortic valve Severe aortic stenosis status post bioprosthetic aortic valve replacement. Cerebrovascular accident (09/21/20) Thought to be embolic in nature, on long-term anticoagulation. Residual dysarthria. 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 Required temporary dialysis for a few months in spring 2019. Combined systolic and diastolic congestive heart failure Echocardiogram dated 11/03/2020 showed mildly enlarged left ventricular chamber with normal left ventricular systolic function and ejection fraction of 55 to 60% (as low as 35% on previous echos), moderate increased LV wall thickness, grade 3 diastolic dysfunction, and mild mitral and tricuspid valve regurgitation. COVID-19 Diabetes Diabetic foot ulcer Diabetic foot ulcer Dialysis patient Encounter for central line placement End-stage renal disease on peritoneal dialysis Essential hypertension Finger fracture Foot abscess, right Former smoker 50 pack year smoking history, quit in 1987. Gastroesophageal reflux disease Hiatal hernia History of hemodialysis History of acute kidney injury on chronic kidney disease requiring hemodialysis in 2019. He has had a right IJ temporary dialysis catheter placed in 01/2020 and then a tunneled dialysis catheter in 02/2020, which was removed in 05/2020. History of osteomyelitis History of stroke with current residual effects Hypertension Impingement syndrome of left shoulder Insulin dependent type 2 diabetes mellitus Complicated by nephropathy, neuropathy, and retinopathy. Mixed hyperlipidemia Nausea & vomiting Non-healing ulcer of foot Osteomyelitis of foot, right, acute Peripheral vascular disease Renal osteodystrophy Right hemiplegia Surgical History Surgical History Amputation of left great toe (2019) Secondary to osteomyelitis. History of aortic valve replacement (07/24/20) 25 mm Inspiris bioprosthetic valve per Dr. Nam Daniels at [facility]. History of carpal tunnel release History of coronary artery bypass graft x 1 (07/24/20) Saphenous vein graft to obtuse marginal per Dr. Nam Daniels at [facility]. History of tonsillectomy Hx of AKA (above knee amputation) bilateral S/P CABG x 1 (~07/24/20) Family History Family History Mother Family history of arthritis Family history of diabetes mellitus in first degree relative Family history of malignant neoplasm of breast in first degree relative Family history of coronary artery disease Alive and well Hypertension Father Malignant neoplasm of prostate Hypertension Sibling Family history of diabetes mellitus in first degree relative Sibling Family history of diabetes mellitus in first degree relative Social History Social History Social History: The patient lives with his in [place]. He has 3 adult children and 2 step children. Smoked 2 packs of cigarettes per day for 25 years and quit in 2007. No alcohol or illicit substance abuse. He worked at a [employer] for many years. He designates his , Aishwarya Bautista, as his surrogate decision maker. code status dnr Smoking packs per day: 2 Smoking cigarettes per day: 40.0 Years smoked: 45 Smoking pack-years: 90.00 Smoking status: Former smoker Tobacco type: cigarettes Second hand tobacco smoke exposure: Yes Smoking end date: 10/23/07 Alcohol intake: former Alcohol use details: rarely Substance use: never Substance use type: does not use Other substance usage details: takes prescription meds as ordered Last use: ETOH ~ 2 beers/year--last use summer 2022 Lack of Transportation: No Lack of Food: Never True Current Housing: I Have Housing Concerned About Future Housing: No Difficulty Paying Gas/Electric Bills: No Difficulty Paying for Meds: No Currently Unemployed: No Education: Bachelor's Degree Difficulty w/ Childcare or Family Care: No Living arrangements: with family Occupation/Education: unemployed Spiritual care concerns: No Agree to blood products: Yes Exam Narrative: GENERAL: Ill appearing in no acute distress. HEAD: Normocephalic, atraumatic. EYES: PERRLA and EOMI. icterus ENT: Nares clear, no rhinorrhea or epistaxis. Mucous membranes moist. NECK: Supple. CHEST: Clear to auscultation. No respiratory distress. HEART: Regular rate and rhythm. ABDOMEN: Soft, mild upper tender, nondistended. EXTREMITIES: Normal range of motion. No edema. bilateral lower extremity amputation SKIN: Warm, dry, no rash. scleral icterus NEURO: No focal deficits. Alert and oriented x3. PSYCH: Normal mood and affect. Course Course Emergency Course: acute elevation of liver enzymes and bilirubin study shows mild ascites Vital Signs Vital signs: Vital Signs Temperature 35.9 C L 10/09/23 11:17 Pulse Rate 95 10/09/23 11:17 Respiratory Rate 16 10/09/23 11:17 Blood Pressure 214/115 H 10/09/23 11:17 Pulse Oximetry 100 10/09/23 11:17 Oxygen Delivery Room Air 10/09/23 11:17 Temperature 35.9 C L 10/09/23 11:17 Pulse Rate 79 10/09/23 18:45 Respiratory Rate 15 10/09/23 18:45 Blood Pressure 173/107 H 10/09/23 18:45 Pulse Oximetry 100 10/09/23 18:45 Oxygen Delivery Room Air 10/09/23 11:17 Medical Decision Making MDM Narrative Medical decision making narrative: liver enzymes bilirubin acutely elevated. CT negative for any acute pathology. Discussed patient's presentation history and results with Dr. Alyse GREEN and [facility]. He recommends starting patient on N-acetylcysteine. [facility] does not currently have any beds available. He also recommended a troponin. 17:40p I spoke to [facility] GI, they accept the patient but they will not have a bed for 2days. 18;11p Due to length of wait for a bed I consulted hospitalist and computer training specialist at [facility]. Aerospace Physiological Technician is recommending ultrasound to rule out portal vein thrombosis. He is also on recommending giving vitamin K. The hospitalist requested a CK. the troponin that the GI physician recommended from [facility] was elevated. vital signs are stable so computer training specialist recommended pt be admitted to the IMU. labs ordered and resulted as bilirubin elevated 1.6 and 1.3 after fluid he had a T over 7000 improved to 6600 after fluids AST persistently over 3700 creatinine elevated above 7, patient has chronic renal insufficiency patient denies shortness of breath as not hypoxic cover chest x-ray ordered CT scan ordered and resulted with mild ascites and cholelithiasis. 20:30 pt given a bed at [facility] BP was elevated and he was given a third dose of iv labetalol Vital Signs Vital Signs: Vital Signs Temperature 35.9 C L 10/09/23 11:17 Pulse Rate 95 10/09/23 11:17 Respiratory Rate 16 10/09/23 11:17 Blood Pressure 214/115 H 10/09/23 11:17 Pulse Oximetry 100 10/09/23 11:17 Oxygen Delivery Room Air 10/09/23 11:17 Temperature 35.9 C L 10/09/23 11:17 Pulse Rate 79 10/09/23 18:45 Respiratory Rate 15 10/09/23 18:45 Blood Pressure 173/107 H 10/09/23 18:45 Pulse Oximetry 100 10/09/23 18:45 Oxygen Delivery Room Air 10/09/23 11:17 Lab Data 10/09/23 11:26 10/09/23 18:31 Labs: Lab Results 10/09/23 10/09/23 10/09/23 Range/Units 11:26 12:05 13:44 WBC 11.6 H (4.5-10.0) K/mm3 RBC 3.32 L (4.6-6.20) M/mm3 Hgb 9.8 L (14.0-18.0) g/dL Hct 32.9 L (42.0-52.0) % MCV 99.1 (80-100) fl MCH 29.5 (26-34) pg MCHC 29.8 L (32-36) g/dl RDW 15.8 H (11.5-14.5) % Plt Count 169 (150-375) k/mm3 MPV 11.1 H (7.4-10.4) fl Immature Gran % (Auto) 0.9 H (0-0.5) % Neut % (Auto) 78.4 H (45.5-73.1) % Lymph % (Auto) 10.5 L (18.3-44.2) % Webster % (Auto) 9.9 H (2.6-8.5) % Eos % (Auto) 0.0 (0-4.4) % Baso % (Auto) 0.3 (0.2-1.2) % Lymph # (Auto) 1.22 (0.9-3.2) K/mm3 Webster # (Auto) 1.2 H (0.1-0.6) K/mm3 Eos # (Auto) 0.0 (0-0.3) K/mm3 Baso # (Auto) 0.0 (0.0-0.1) K/mm3 Abs Immat Gran (auto) 0.10 H (0.00-0.031) K/mm3 Absolute Neuts (auto) 9.1 H (1.3-6.7) K/mm3 Absolute Nucleated RBC 0.0 (0.0-0.012) K/mm3 Nucleated RBC % 0.2 (0.0-0.2) % PT 28.9 H (11.1-14.7) Seconds INR 2.5 APTT 39.7 H (22.3-36.8) SECONDS Sodium 135 L (137-145) mmol/L Potassium 6.0 H* (3.4-5.0) mmol/L Chloride 100 (98-107) mmol/L Carbon Dioxide 13 L (22-30) mmol/L Anion Gap 22 H (8-16) mmol/L BUN 51 H D (9-20) mg/dL Creatinine 7.20 H (0.7-1.3) mg/dL Estim Creat Clear Calc Not Reportable Estimated GFR 8 L (59 - ) Glucose 54 L* (65-110) mg/dL POC Capillary Glucose 47 L* (65-105) mg/dl Calcium 10.4 H (8.4-10.2) mg/dL Total Bilirubin 1.6 H 1.3 (0.2-1.3) mg/dL Direct Bilirubin 0.0 (0-0.3) mg/dL AST 7159 H 6620 H (17-59) U/L ALT > 3750 H > 3750 H (6-50) U/L Alkaline Phosphatase 187 H 140 H (38-126) U/L Total Creatine Kinase (55-170) U/L Troponin I (0.000-0.034) ng/mL Total Protein 8.0 6.0 L (6.3-8.2) g/dL Albumin 4.1 3.1 L (3.5-5.1) g/dL Lipase 349 H (23-300) U/L Acetaminophen < 10 L (10-30) ug/mL Ethyl Alcohol < 10 (<10) mg/dL Hepatitis A IgM Ab Negative (Negative) Hep Bs Antigen Negative (Negative) Hep B Core IgM Ab Negative (Negative) Hepatitis C Ab Screen Negative (Negative) 10/09/23 10/09/23 10/09/23 Range/Units 13:46 17:24 18:31 WBC (4.5-10.0) K/mm3 RBC (4.6-6.20) M/mm3 Hgb (14.0-18.0) g/dL Hct (42.0-52.0) % MCV (80-100) fl MCH (26-34) pg MCHC (32-36) g/dl RDW (11.5-14.5) % Plt Count (150-375) k/mm3 MPV (7.4-10.4) fl Immature Gran % (Auto) (0-0.5) % Neut % (Auto) (45.5-73.1) % Lymph % (Auto) (18.3-44.2) % Webster % (Auto) (2.6-8.5) % Eos % (Auto) (0-4.4) % Baso % (Auto) (0.2-1.2) % Lymph # (Auto) (0.9-3.2) K/mm3 [place] # (Auto) (0.1-0.6) K/mm3 Eos # (Auto) (0-0.3) K/mm3 Baso # (Auto) (0.0-0.1) K/mm3 Abs Immat Gran (auto) (0.00-0.031) K/mm3 Absolute Neuts (auto) (1.3-6.7) K/mm3 Absolute Nucleated RBC (0.0-0.012) K/mm3 Nucleated RBC % (0.0-0.2) % PT (11.1-14.7) Seconds INR APTT (22.3-36.8) SECONDS Sodium 136 L (137-145) mmol/L Potassium 6.1 H* (3.4-5.0) mmol/L Chloride 102 (98-107) mmol/L Carbon Dioxide 11 L (22-30) mmol/L Anion Gap 23 H (8-16) mmol/L BUN 54 H (9-20) mg/dL Creatinine 6.40 H (0.7-1.3) mg/dL Estim Creat Clear Calc Not Reportable Estimated GFR 9 L (59 - ) Glucose 98 (65-110) mg/dL POC Capillary Glucose 124 H (65-105) mg/dl Calcium 9.5 (8.4-10.2) mg/dL Total Bilirubin (0.2-1.3) mg/dL Direct Bilirubin (0-0.3) mg/dL AST (17-59) U/L ALT (6-50) U/L Alkaline Phosphatase (38-126) U/L Total Creatine Kinase 178 H (55-170) U/L Troponin I 0.314 H* (0.000-0.034) ng/mL Total Protein (6.3-8.2) g/dL Albumin (3.5-5.1) g/dL Lipase (23-300) U/L Acetaminophen (10-30) ug/mL Ethyl Alcohol (<10) mg/dL Hepatitis A IgM Ab (Negative) Hep Bs Antigen (Negative) Hep B Core IgM Ab (Negative) Hepatitis C Ab Screen (Negative) 10/09/23 Range/Units 18:41 WBC (4.5-10.0) K/mm3 RBC (4.6-6.20) M/mm3 Hgb (14.0-18.0) g/dL Hct (42.0-52.0) % MCV (80-100) fl MCH (26-34) pg MCHC (32-36) g/dl RDW (11.5-14.5) % Plt Count (150-375) k/mm3 MPV (7.4-10.4) fl Immature Gran % (Auto) (0-0.5) % Neut % (Auto) (45.5-73.1) % Lymph % (Auto) (18.3-44.2) % [place] % (Auto) (2.6-8.5) % Eos % (Auto) (0-4.4) % Baso % (Auto) (0.2-1.2) % Lymph # (Auto) (0.9-3.2) K/mm3 [place] # (Auto) (0.1-0.6) K/mm3 Eos # (Auto) (0-0.3) K/mm3 Baso # (Auto) (0.0-0.1) K/mm3 Abs Immat Gran (auto) (0.00-0.031) K/mm3 Absolute Neuts (auto) (1.3-6.7) K/mm3 Absolute Nucleated RBC (0.0-0.012) K/mm3 Nucleated RBC % (0.0-0.2) % PT (11.1-14.7) Seconds INR APTT (22.3-36.8) SECONDS Sodium (137-145) mmol/L Potassium (3.4-5.0) mmol/L Chloride (98-107) mmol/L Carbon Dioxide (22-30) mmol/L Anion Gap (8-16) mmol/L BUN (9-20) mg/dL Creatinine (0.7-1.3) mg/dL Estim Creat Clear Calc Estimated GFR (59 - ) Glucose (65-110) mg/dL POC Capillary Glucose 107 H (65-105) mg/dl Calcium (8.4-10.2) mg/dL Total Bilirubin (0.2-1.3) mg/dL Direct Bilirubin (0-0.3) mg/dL AST (17-59) U/L ALT (6-50) U/L Alkaline Phosphatase (38-126) U/L Total Creatine Kinase (55-170) U/L Troponin I (0.000-0.034) ng/mL Total Protein (6.3-8.2) g/dL Albumin (3.5-5.1) g/dL Lipase (23-300) U/L Acetaminophen (10-30) ug/mL Ethyl Alcohol (<10) mg/dL Hepatitis A IgM Ab (Negative) Hep Bs Antigen (Negative) Hep B Core IgM Ab (Negative) Hepatitis C Ab Screen (Negative) Critical Care Time Critical Care Time Critical Care Time: Yes Total Critical Care Time: 95 Discharge Plan Discharge Clinical Impression: End-stage renal disease (ESRD), Nausea vomiting and diarrhea, Acute hyperkalemia Acute liver failure Qualifiers: Hepatic coma status: without hepatic coma Qualified Code(s): K72.00 - Acute and subacute hepatic failure without coma CHF exacerbation Qualifiers: Heart failure type: unspecified Qualified Code(s): I50.9 - Heart failure, unspecified GI (gastrointestinal bleed) Qualifiers: GI bleed type/associated pathology: unspecified gastrointestinal hemorrhage type Qualified Code(s): K92.2 - Gastrointestinal hemorrhage, unspecified Patient Disposition: Acute Care Hospital Condition: Serious Prescriptions: No Action venlafaxine 75 mg tablet 75 mg PO TID lisinopril 10 mg tablet 10 mg PO DAILY ondansetron 4 mg tablet,disintegrating 4 mg PO Q8H PRN (Reason: nausea and vomiting) Qty: 20 0RF hydralazine 25 mg tablet 50 mg PO TID sevelamer carbonate [Renvela] 800 mg tablet 1,600 mg PO TIDWM pregabalin 75 mg capsule 75 mg PO DAILY bumetanide 2 mg tablet 2 mg PO DAILY aspirin 81 mg tablet,chewable 81 mg PO DAILY Qty: 90 0RF famotidine 20 mg Tablet 20 mg PO DAILY docusate sodium 100 mg Capsule 100 mg PO DAILY calcitriol 0.25 mcg Capsule 0.25 mcg PO MOWEFR Rx Instructions: administer after dialysis on dialysis days cholecalciferol (vitamin D3) 50 mcg (2,000 unit) Tablet 2,000 unit PO DAILY melatonin 3 mg Tablet 6 mg PO HS Qty: 30 0RF Follow-up/Referrals: Aquilino Burris MD [Primary Care Provider] - Time of Disposition: 20:06
--- NOTE | 2023-10-09 15:07 | PC.NURSE ---
Patient requesting to leave AMA at this time. MD Wood notified at this time. MD to speak with patient.
[2023-10-09 15:45] LABS: Albumin Level 3.1 g/dL (3.5-5.1); Alkaline Phosphatase 140 U/L (38-126); Bilirubin,Total 1.3 mg/dL (0.2-1.3)
[2023-10-09 16:11] LABS: Alanine Aminotransferase > 3750 U/L (6-50)
--- NOTE | 2023-10-09 16:12 | PC.NURSE ---
patient states he is unable to provide urine sample at this time and refusing straight catheter. patient states he doesn't make urine with dialysis.
[2023-10-09 16:33] LABS: Aspartate Amino Transferase 6620 U/L (17-59)
[2023-10-09 16:41] LABS: Hepatitis B Surface Antigen Negative (Negative)
[2023-10-09 16:47] LABS: HAV RESULT Negative (Negative); Hepatitis B Core IgM Result Negative (Negative)
[2023-10-09 16:59] LABS: Hepatitis C Virus Antibody Negative (Negative)
[2023-10-09] MEDS: ACETYLCYSTEINE IV 10,500 MG in DEXTROSE 5% IN WATER 200 ML 252.5 MG IVPB (17:25)
[2023-10-09 18:00] LABS: Troponin I 0.314 ng/mL (0.000-0.034)
--- NOTE | 2023-10-09 18:08 | PC.NURSE ---
Spoke with [facility] transfer center at this time to answer a few triage questions. no bed at this time.
[2023-10-09 18:44] LABS: Glucose Point of Care 107 mg/dl (65-105)
[2023-10-09 18:45] LABS: Creatine Kinase 178 U/L (55-170)
[2023-10-09 18:51] LABS: Anion Gap 23 mmol/L (8-16); Blood Urea Nitrogen 54 mg/dL (9-20); Calcium 9.5 mg/dL (8.4-10.2); Carbon Dioxide 11 mmol/L (22-30); Chloride 102 mmol/L (98-107); Estimated Glomerular Filt Rate 9; Glucose 98 mg/dL (65-110); Potassium 6.1 mmol/L (3.4-5.0); Sodium 136 mmol/L (137-145)
--- NOTE | 2023-10-09 18:54 | PC.NURSE ---
[facility] called and states patient has bed at this time. Accepting MD Bruno. patient aware and agrees to go to [facility].
--- NOTE | 2023-10-09 19:31 | PC.NURSE ---
attempted to call report at this time to [facility] RN available. will attempt to call back.
--- NOTE | 2023-10-09 20:53 | PC.NURSE ---
patient being transferred to [facility] with IV medications infusing per order.
== END 2023-10-09 20:54 | disposition short-term general hospital (02) ==
PROVIDERS: Emergency Medicine; Emergency Provider Emergency Medicine; PCP Family Medicine
DX: K72.00 Acute and subacute hepatic failure without coma (principal); K92.2 Gastrointestinal hemorrhage, unspecified; I13.2 Hypertensive heart and chronic kidney disease with heart failure and with stage 5 chronic kidney disease, or end stage renal disease; E11.22 Type 2 diabetes mellitus with diabetic chronic kidney disease; N18.6 End stage renal disease; I50.40 Unspecified combined systolic (congestive) and diastolic (congestive) heart failure; R11.2 Nausea with vomiting, unspecified; E87.5 Hyperkalemia; E11.21 Type 2 diabetes mellitus with diabetic nephropathy; E11.40 Type 2 diabetes mellitus with diabetic neuropathy, unspecified; E11.319 Type 2 diabetes mellitus with unspecified diabetic retinopathy without macular edema; E11.51 Type 2 diabetes mellitus with diabetic peripheral angiopathy without gangrene; I49.3 Ventricular premature depolarization; I69.351 Hemiplegia and hemiparesis following cerebral infarction affecting right dominant side; E78.2 Mixed hyperlipidemia; N25.0 Renal osteodystrophy; D64.9 Anemia, unspecified; M19.90 Unspecified osteoarthritis, unspecified site; K21.9 Gastro-esophageal reflux disease without esophagitis; Z95.1 Presence of aortocoronary bypass graft; Z87.891 Personal history of nicotine dependence; Z86.16 Personal history of COVID-19; Z95.2 Presence of prosthetic heart valve; Z89.612 Acquired absence of left leg above knee; Z89.611 Acquired absence of right leg above knee; Z79.899 Other long term (current) drug therapy; Z79.82 Long term (current) use of aspirin
CPT/HCPCS: 36415; 71045; 74176; 80048; 80053; 80074; 80076; 80307; 82550; 82948; 83690; 84484; 85025; 85610; 85730; 93005; 96365; 96366; 96368; 96375; 96376; 99285; C9113; J0132; J7030; J7040; J7060

== ENCOUNTER 2023-10-24 14:51 | Outpatient (CLI) | payer MEDICARE, OTHER, SELFPAY ==
[2023-10-24 15:32] LABS: Alanine Aminotransferase 98 U/L (6-50); Albumin Level 3.6 g/dL (3.5-5.1); Alkaline Phosphatase 283 U/L (38-126); Anion Gap 11 mmol/L (8-16); Aspartate Amino Transferase 37 U/L (17-59); Bilirubin,Total 0.7 mg/dL (0.2-1.3); Blood Urea Nitrogen 34 mg/dL (9-20); Calcium 9.1 mg/dL (8.4-10.2); Carbon Dioxide 23 mmol/L (22-30); Chloride 102 mmol/L (98-107); Estimated Glomerular Filt Rate 14; Glucose 72 mg/dL (65-110); Potassium 4.2 mmol/L (3.4-5.0); Sodium 136 mmol/L (137-145)
== END 2023-10-24 14:52 | disposition home or self-care (01) ==
PROVIDERS: PCP Family Medicine; Visit Provider Family Medicine
DX: R74.8 Abnormal levels of other serum enzymes (principal)
CPT/HCPCS: 36415; 80053

== ENCOUNTER 2023-10-30 14:16 | Outpatient (NON) | payer MEDICARE, OTHER, SELFPAY ==
[2023-10-30 14:43] LABS: Appearance Urine Cloudy (Clear); Bacteria Urine None Seen /hpf; Bilirubin Urine Negative (Negative); Blood Urine 2+ (Negative); Color Urine Yellow (Yellow); Glucose Urine UA Trace mg/dL (Negative); Ketones Urine Trace mg/dL (Negative); Leukocyte Esterase Ur Negative LEU/UL (Negative); Nitrate Urine Negative (Negative); Protein Urine 3+ mg/dL (Negative); RBC Urine >100 /hpf (0-2); Specific Grav Ur 1.012 (1.001-1.035); Squamous Epithelial Cell Urine None seen /hpf (Few); Urobilinogen Urine 0.2 mg/dL (<2.0)
[2023-10-30 14:57] LABS: Add Urine Microscopic? YES
== END 2023-10-30 14:17 | disposition home or self-care (01) ==
PROVIDERS: PCP Family Medicine; Visit Provider Family Medicine
DX: E11.51 Type 2 diabetes mellitus with diabetic peripheral angiopathy without gangrene (principal); Z47.81 Encounter for orthopedic aftercare following surgical amputation; Z89.612 Acquired absence of left leg above knee; Z89.611 Acquired absence of right leg above knee
CPT/HCPCS: 81001; 87086; 87088

== ENCOUNTER 2023-11-13 06:06 | Emergency (ER) | payer MEDICARE, OTHER, SELFPAY ==
[2023-11-13 06:07] VITALS: BP 143/101; PULSE 101; RESP 20; TEMP 36.8; O2SAT 97
--- NOTE | 2023-11-13 06:52 | ED_ITS ---
HPI - General Adult General Chief complaint: Epistaxis Stated complaint: nosebleed Time Seen by Provider: 11/13/23 06:37 History of Present Illness HPI narrative: Patient 58-year-old gentleman who presents emerged from with chief complaint of epistaxis. The patient reports that this evening he started having bleeding from his left nostril the patient tried direct pressure reports continued on this morning. The patient called EMS was transported to the emergency department. Patient upon arrival emergency department had significantly mostly stopped. Related Data Home Medications Medication Instructions Recorded Confirmed sevelamer carbonate 800 mg tablet 1,600 mg PO TIDWM 11/24/22 10/24/23 (Renvela) bumetanide 2 mg tablet 2 mg PO DAILY 07/11/23 10/24/23 pregabalin 75 mg capsule 75 mg PO DAILY 07/11/23 10/24/23 calcitriol 0.25 mcg capsule 0.25 mcg PO MOWEFR 09/19/23 10/24/23 cholecalciferol (vitamin D3) 50 2,000 unit PO DAILY 09/19/23 10/24/23 mcg (2,000 unit) tablet docusate sodium 100 mg capsule 100 mg PO DAILY 09/19/23 10/24/23 famotidine 20 mg tablet 20 mg PO DAILY 09/19/23 10/24/23 hydralazine 25 mg tablet 50 mg PO TID 10/09/23 10/24/23 lisinopril 10 mg tablet 10 mg PO DAILY 10/09/23 10/24/23 venlafaxine 75 mg tablet 75 mg PO TID 10/09/23 10/24/23 Allergies Allergy/AdvReac Type Severity Reaction Status Date / Time No Known Allergies Allergy Verified 11/13/23 06:21 Review of Systems Review of Systems: A 10 system review of systems was completed on the patient and is negative except for what is stated in the HPI. Nursing and ancillary documentation was reviewed. [facility] Past Medical History Medical History Arthritis Bicuspid aortic valve Severe aortic stenosis status post bioprosthetic aortic valve replacement. Cerebrovascular accident (09/21/20) Thought to be embolic in nature, on long-term anticoagulation. Residual dysarthria. 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 Required temporary dialysis for a few months in spring 2019. Combined systolic and diastolic congestive heart failure Echocardiogram dated 11/03/2020 showed mildly enlarged left ventricular chamber with normal left ventricular systolic function and ejection fraction of 55 to 60% (as low as 35% on previous echos), moderate increased LV wall thickness, grade 3 diastolic dysfunction, and mild mitral and tricuspid valve regurgitation. COVID-19 Diabetes Diabetic foot ulcer Diabetic foot ulcer Dialysis patient Encounter for central line placement End-stage renal disease on peritoneal dialysis Essential hypertension Finger fracture Foot abscess, right Former smoker 50 pack year smoking history, quit in 1987. Gastroesophageal reflux disease Hiatal hernia History of hemodialysis History of acute kidney injury on chronic kidney disease requiring hemodialysis in 2019. He has had a right IJ temporary dialysis catheter placed in 01/2020 and then a tunneled dialysis catheter in 02/2020, which was removed in 05/2020. History of osteomyelitis History of stroke with current residual effects Hypertension Impingement syndrome of left shoulder Insulin dependent type 2 diabetes mellitus Complicated by nephropathy, neuropathy, and retinopathy. Mixed hyperlipidemia Nausea & vomiting Non-healing ulcer of foot Osteomyelitis of foot, right, acute Peripheral vascular disease Renal osteodystrophy Right hemiplegia Surgical History Surgical History Amputation of left great toe (2019) Secondary to osteomyelitis. History of aortic valve replacement (07/24/20) 25 mm Inspiris bioprosthetic valve per Dr. Nam Daniels at [facility]. History of carpal tunnel release History of coronary artery bypass graft x 1 (07/24/20) Saphenous vein graft to obtuse marginal per Dr. Nam Daniels at [facility]. History of tonsillectomy Hx of AKA (above knee amputation) bilateral S/P CABG x 1 (~07/24/20) Family History Family History Mother Family history of arthritis Family history of diabetes mellitus in first degree relative Family history of malignant neoplasm of breast in first degree relative Family history of coronary artery disease Alive and well Hypertension Father Malignant neoplasm of prostate Hypertension Sibling Family history of diabetes mellitus in first degree relative Sibling Family history of diabetes mellitus in first degree relative Social History Social History Social History: The patient lives with his in [place]. He has 3 adult children and 2 step children. Smoked 2 packs of cigarettes per day for 25 years and quit in 2007. No alcohol or illicit substance abuse. He worked at a [employer] for many years. He designates his , Aishwarya Bautista, as his surrogate decision maker. code status dnr Smoking packs per day: 2 Smoking cigarettes per day: 40.0 Years smoked: 45 Smoking pack-years: 90.00 Smoking status: Former smoker Tobacco type: cigarettes Second hand tobacco smoke exposure: Yes Smoking end date: 10/23/07 Alcohol intake: former Alcohol use details: rarely Substance use: never Substance use type: does not use Other substance usage details: takes prescription meds as ordered Last use: ETOH ~ 2 beers/year--last use summer 2022 Lack of Transportation: No Lack of Food: Never True Current Housing: I Have Housing Concerned About Future Housing: No Difficulty Paying Gas/Electric Bills: No Difficulty Paying for Meds: No Currently Unemployed: No Education: Bachelor's Degree Difficulty w/ Childcare or Family Care: No Living arrangements: with family Occupation/Education: unemployed Spiritual care concerns: No Agree to blood products: Yes Exam Narrative: GENERAL: Well-appearing, well-nourished, and in no acute distress. HEAD: Normocephalic, atraumatic. EYES: PERRLA and EOMI. ENT: Nares clear, no rhinorrhea clots were removed from the left nostril and bleeding resumed. The nose was packed. Mucous membranes moist. NECK: Supple. CHEST: Clear to auscultation. No respiratory distress. HEART: Regular rate and rhythm. No murmur heard. Normal peripheral pulses. ABDOMEN: Soft, nontender, nondistended, normal active bowel sounds. EXTREMITIES: Normal range of motion. No edema. SKIN: Warm, dry, no rash. NEURO: No focal deficits. Alert and oriented x3. PSYCH: Normal mood and affect. Course Vital Signs Vital signs: Vital Signs Temperature 36.8 C 11/13/23 06:07 Pulse Rate 101 H 11/13/23 06:07 Respiratory Rate 20 11/13/23 06:07 Blood Pressure 143/101 H 11/13/23 06:07 Pulse Oximetry 97 11/13/23 06:07 Oxygen Delivery Room Air 11/13/23 06:07 Temperature 36.8 C 11/13/23 06:07 Pulse Rate 101 H 11/13/23 06:07 Respiratory Rate 20 11/13/23 06:07 Blood Pressure 143/101 H 11/13/23 06:07 Pulse Oximetry 97 11/13/23 06:07 Oxygen Delivery Room Air 11/13/23 06:07 Procedures Epistaxis Control left: Epistaxis Control Date: 11/13/23 Epistaxis Control Time: 06:53 Time Out Performed: Yes Nose Prepped With: lidocaine Direct Inspection: yes Clots Removed by: blowing nose Cautery Used: none Device Inserted: hemostatic balloon Device Size: 75 Patient Tolerated Procedure: well Medical Decision Making MDM Narrative Medical decision making narrative: Differential diagnosis includes traumatic epistaxis, hypertension, ESRD Patient's bleeding was controlled. The patient shows no signs of continued bleeding at this time patient will be referred to ENT. Vital Signs Vital Signs: Vital Signs Temperature 36.8 C 11/13/23 06:07 Pulse Rate 101 H 11/13/23 06:07 Respiratory Rate 20 11/13/23 06:07 Blood Pressure 143/101 H 11/13/23 06:07 Pulse Oximetry 97 11/13/23 06:07 Oxygen Delivery Room Air 11/13/23 06:07 Temperature 36.8 C 11/13/23 06:07 Pulse Rate 101 H 11/13/23 06:07 Respiratory Rate 20 11/13/23 06:07 Blood Pressure 143/101 H 11/13/23 06:07 Pulse Oximetry 97 11/13/23 06:07 Oxygen Delivery Room Air 11/13/23 06:07 Discharge Plan Discharge Clinical Impression: Epistaxis Patient Disposition: Home, Self-Care Condition: Stable Instructions: Antibiotic Form, Nosebleed (ED) Prescriptions: No Action venlafaxine 75 mg tablet 75 mg PO TID lisinopril 10 mg tablet 10 mg PO DAILY ondansetron 4 mg tablet,disintegrating 4 mg PO Q8H PRN (Reason: nausea and vomiting) Qty: 20 0RF hydralazine 25 mg tablet 50 mg PO TID sevelamer carbonate [Renvela] 800 mg tablet 1,600 mg PO TIDWM pregabalin 75 mg capsule 75 mg PO DAILY bumetanide 2 mg tablet 2 mg PO DAILY aspirin 81 mg tablet,chewable 81 mg PO DAILY Qty: 90 0RF famotidine 20 mg Tablet 20 mg PO DAILY docusate sodium 100 mg Capsule 100 mg PO DAILY calcitriol 0.25 mcg Capsule 0.25 mcg PO MOWEFR Rx Instructions: administer after dialysis on dialysis days cholecalciferol (vitamin D3) 50 mcg (2,000 unit) Tablet 2,000 unit PO DAILY melatonin 3 mg Tablet 6 mg PO HS Qty: 30 0RF Follow-up/Referrals: Aquilino Burris MD [Primary Care Provider] - Geremias Cerrato MD [Physician] - Time of Disposition: 06:57
[2023-11-13 06:55] VITALS: BP 135/80; PULSE 99; RESP 15; O2SAT 94
[2023-11-13 07:12] VITALS: BP 140/90; PULSE 99; RESP 18; O2SAT 99
[2023-11-13] MEDS: LIDO 1%/EPINEPHRINE 1:100,000 20 ML VIAL INFILTRATE (07:15)
== END 2023-11-13 07:24 | disposition home or self-care (01) ==
PROVIDERS: Emergency Provider Emergency Medicine; PCP Family Medicine
DX: R04.0 Epistaxis (principal); I13.2 Hypertensive heart and chronic kidney disease with heart failure and with stage 5 chronic kidney disease, or end stage renal disease; E11.22 Type 2 diabetes mellitus with diabetic chronic kidney disease; N18.6 End stage renal disease; I50.40 Unspecified combined systolic (congestive) and diastolic (congestive) heart failure; E11.21 Type 2 diabetes mellitus with diabetic nephropathy; E11.40 Type 2 diabetes mellitus with diabetic neuropathy, unspecified; E11.319 Type 2 diabetes mellitus with unspecified diabetic retinopathy without macular edema; E11.51 Type 2 diabetes mellitus with diabetic peripheral angiopathy without gangrene; I73.9 Peripheral vascular disease, unspecified; I69.922 Dysarthria following unspecified cerebrovascular disease; E78.2 Mixed hyperlipidemia; N25.0 Renal osteodystrophy; M19.90 Unspecified osteoarthritis, unspecified site; K21.9 Gastro-esophageal reflux disease without esophagitis; Z99.2 Dependence on renal dialysis; Z95.1 Presence of aortocoronary bypass graft; Z87.891 Personal history of nicotine dependence; Z86.16 Personal history of COVID-19; Z95.2 Presence of prosthetic heart valve; Z89.612 Acquired absence of left leg above knee; Z89.611 Acquired absence of right leg above knee; Z79.899 Other long term (current) drug therapy; Z79.82 Long term (current) use of aspirin
CPT/HCPCS: 30901; 99283; A9270

== ENCOUNTER 2023-12-18 21:35 | Emergency (ER) | payer MEDICARE, OTHER, SELFPAY ==
[2023-12-18 21:37] VITALS: BP 199/118; PULSE 100; RESP 16; TEMP 36.4; O2SAT 100
[2023-12-18 22:59] VITALS: BP 177/116; PULSE 95; RESP 20; TEMP 36.7; O2SAT 100
[2023-12-18 23:54] LABS: Basophils Absolute Auto 0.1 K/mm3 (0.0-0.1); Basophils Percent Auto 0.8 % (0.2-1.2); Eosinophils Absolute Auto 0.1 K/mm3 (0-0.3); Eosinophils Percent Auto 1.3 % (0-4.4); Hematocrit 30.5 % (42.0-52.0); Hemoglobin 9.3 g/dL (14.0-18.0); Immature Granulocyte Absolute 0.02 K/mm3 (0.00-0.031); Immature Granulocyte Percent A 0.2 % (0-0.5); Lymphocytes Absolute Auto 1.74 K/mm3 (0.9-3.2); Lymphocytes Percent Auto 20.5 % (18.3-44.2); Mean Corpuscular HGB Conc 30.5 g/dl (32-36); Mean Corpuscular Hemoglobin 27.4 pg (26-34); Mean Corpuscular Volume 89.7 fl (80-100); Mean Platelet Volume 9.7 fl (7.4-10.4); Monocytes Absolute Auto 0.7 K/mm3 (0.1-0.6); Monocytes Percent Auto 8.7 % (2.6-8.5); Neutrophils Absolute Auto 5.8 K/mm3 (1.3-6.7); Neutrophils Percent Auto 68.5 % (45.5-73.1); Platelet Count Result 206 k/mm3 (150-375); Red Cell Distribution Width 17.7 % (11.5-14.5); White Blood Count 8.5 K/mm3 (4.5-10.0)
[2023-12-19 00:02] VITALS: BP 175/112; PULSE 96; RESP 16; O2SAT 100
[2023-12-19 00:12] LABS: Alanine Aminotransferase 17 U/L (6-50); Albumin Level 4.1 g/dL (3.5-5.1); Alkaline Phosphatase 175 U/L (38-126); Anion Gap 14 mmol/L (8-16); Aspartate Amino Transferase 24 U/L (17-59); Bilirubin,Total 0.6 mg/dL (0.2-1.3); Blood Urea Nitrogen 62 mg/dL (9-20); Calcium 10.3 mg/dL (8.4-10.2); Carbon Dioxide 18 mmol/L (22-30); Chloride 103 mmol/L (98-107); Estimated Glomerular Filt Rate 6; Glucose 89 mg/dL (65-110); Magnesium 2.4 mg/dL (1.6-2.3); Phosphorus 9.6 mg/dL (2.5-4.5); Potassium 7.6 mmol/L (3.4-5.0); Sodium 135 mmol/L (137-145)
--- NOTE | 2023-12-19 00:15 | ECG_ITS ---
Measurements Intervals [place] Rate: 92 P: -17 [place]: 205 QRS: 14 QRSD: 114 T: -14 QT: 361 QTc: 448 Interpretive Statements SINUS RHYTHM PROBABLE INFERIOR MYOCARDIAL INFARCTION , PROBABLY OLD [40+ ms Q WAVE AND/OR ST/T ABNORMALITY IN II/aVF] COMPARED TO ECG 10/09/2023 12:26:36 NO SIGNIFICANT CHANGES Electronically Signed On 12-19-2023 12:32:42 MORTGAGE BRANCH MANAGER by Yulissa Oropeza M.D.
--- NOTE | 2023-12-19 01:08 | ED_ITS ---
HPI - General Adult General Chief complaint: Recheck/Abnormal Lab/Rx Stated complaint: high phosphorus Time Seen by Provider: 12/18/23 22:59 History of Present Illness HPI narrative: This is a 58-year-old male on dialysis presenting for abnormal labs. [facility] to the [facility] for high phosphorus. Patient gets dialysis Monday. He has dialysis in the morning. Patient had a problem with his dialysis on Monday and did not complete the last hour. That time he had a potassium of 7.7 was discussed with his project manager industrial to did not recommend sending him to the hospital at that time. Patient is asymptomatic at this time. Related Data Home Medications Medication Instructions Recorded Confirmed sevelamer carbonate 800 mg tablet 1,600 mg PO TIDWM 11/24/22 11/20/23 (Renvela) bumetanide 2 mg tablet 2 mg PO DAILY 07/11/23 11/20/23 pregabalin 75 mg capsule 75 mg PO DAILY 07/11/23 11/20/23 calcitriol 0.25 mcg capsule 0.25 mcg PO MOWEFR 09/19/23 11/20/23 cholecalciferol (vitamin D3) 50 2,000 unit PO DAILY 09/19/23 11/20/23 mcg (2,000 unit) tablet docusate sodium 100 mg capsule 100 mg PO DAILY 09/19/23 11/20/23 famotidine 20 mg tablet 20 mg PO DAILY 09/19/23 11/20/23 hydralazine 25 mg tablet 50 mg PO TID 10/09/23 11/20/23 lisinopril 10 mg tablet 10 mg PO DAILY 10/09/23 11/20/23 venlafaxine 75 mg tablet 75 mg PO TID 10/09/23 11/20/23 Allergies Allergy/AdvReac Type Severity Reaction Status Date / Time No Known Allergies Allergy Verified 11/20/23 07:51 [facility] Past Medical History Medical History (Updated 12/19/23 @ 01:23 by Juan Nation MD) Arthritis Bicuspid aortic valve Severe aortic stenosis status post bioprosthetic aortic valve replacement. Cerebrovascular accident (09/21/20) Thought to be embolic in nature, on long-term anticoagulation. Residual dysarthria. 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 Required temporary dialysis for a few months in spring 2019. Combined systolic and diastolic congestive heart failure Echocardiogram dated 11/03/2020 showed mildly enlarged left ventricular chamber with normal left ventricular systolic function and ejection fraction of 55 to 60% (as low as 35% on previous echos), moderate increased LV wall thickness, grade 3 diastolic dysfunction, and mild mitral and tricuspid valve regurgitation. COVID-19 Diabetes Diabetic foot ulcer Diabetic foot ulcer Dialysis patient Encounter for central line placement End-stage renal disease on peritoneal dialysis Essential hypertension Finger fracture Foot abscess, right Former smoker 50 pack year smoking history, quit in 1987. Gastroesophageal reflux disease Hiatal hernia History of hemodialysis History of acute kidney injury on chronic kidney disease requiring hemodialysis in 2019. He has had a right IJ temporary dialysis catheter placed in 01/2020 and then a tunneled dialysis catheter in 02/2020, which was removed in 05/2020. History of osteomyelitis History of stroke with current residual effects Hypertension Impingement syndrome of left shoulder Insulin dependent type 2 diabetes mellitus Complicated by nephropathy, neuropathy, and retinopathy. Mixed hyperlipidemia Nausea & vomiting Non-healing ulcer of foot Osteomyelitis of foot, right, acute Peripheral vascular disease Renal osteodystrophy Right hemiplegia Surgical History Surgical History (Updated 11/20/23 @ 16:01 by Rashard Rocha PA-C) Amputation of left great toe (2019) Secondary to osteomyelitis. History of aortic valve replacement (07/24/20) 25 mm Inspiris bioprosthetic valve per Dr. Nam Daniels at [facility]. History of carpal tunnel release History of coronary artery bypass graft x 1 (07/24/20) Saphenous vein graft to obtuse marginal per Dr. Nam Daniels at [facility]. History of tonsillectomy Hx of AKA (above knee amputation) bilateral S/p bilateral carpal tunnel release right 1988 left 1991 left 1991 S/P CABG x 1 (~07/24/20) S/P decompression of ulnar nerve at elbow 1998 Family History Family History Mother Family history of arthritis Family history of diabetes mellitus in first degree relative Family history of malignant neoplasm of breast in first degree relative Family history of coronary artery disease Alive and well Hypertension Father Malignant neoplasm of prostate Hypertension Sibling Family history of diabetes mellitus in first degree relative Sibling Family history of diabetes mellitus in first degree relative Social History Social History Social History: The patient lives with his in [place]. He has 3 adult children and 2 step children. Smoked 2 packs of cigarettes per day for 25 years and quit in 2007. No alcohol or illicit substance abuse. He worked at a [employer] for many years. He designates his , Aishwarya Bautista, as his surrogate decision maker. code status dnr Smoking packs per day: 2 Smoking cigarettes per day: 40.0 Years smoked: 45 Smoking pack-years: 90.00 Smoking status: Former smoker Tobacco type: cigarettes Second hand tobacco smoke exposure: Yes Smoking end date: 10/23/07 Alcohol intake: former Alcohol use details: rarely Substance use: never Substance use type: does not use Other substance usage details: takes prescription meds as ordered Last use: ETOH ~ 2 beers/year--last use summer 2022 Lack of Transportation: No Lack of Food: Never True Current Housing: I Have Housing Concerned About Future Housing: No Difficulty Paying Gas/Electric Bills: No Difficulty Paying for Meds: No Currently Unemployed: No Education: Bachelor's Degree Difficulty w/ Childcare or Family Care: No Living arrangements: with family Occupation/Education: unemployed Spiritual care concerns: No Agree to blood products: Yes Exam Narrative: APPEARANCE: No apparent distress. Head: atraumatic. EYES: EOMI, NOSE: Atraumatic NECK: Trachea midline RESPIRATORY: No increased rate of breathing clear to auscultation CARDIOVASCULAR: RRR, ABDOMINAL: Non-distended MUSCULOSKELETAl: bilateral AKAs NEURO: Alert. Moving 4/4 extremities SKIN:: Warm, dry. Normal color PSYCHIATRIC: Normal affect Course Vital Signs Vital signs: Vital Signs Temperature 97.6 F 12/18/23 21:37 Pulse Rate 100 12/18/23 21:37 Respiratory Rate 16 12/18/23 21:37 Blood Pressure 199/118 H 12/18/23 21:37 Pulse Oximetry 100 12/18/23 21:37 Oxygen Delivery Room Air 12/18/23 21:37 Temperature 98.1 F 12/18/23 22:59 Pulse Rate 96 12/19/23 00:02 Respiratory Rate 16 12/19/23 00:02 Blood Pressure 175/112 H 12/19/23 00:02 Pulse Oximetry 100 12/19/23 00:02 Oxygen Delivery Room Air 12/18/23 21:37 Medical Decision Making [facility] Narrative Medical decision making narrative: -Course: 58-year-old male end-stage renal disease hemodialysis presenting for abnormal labs. Patient found to have hyperkalemia of 7.5. No EKG changes. Given Lokelma. Phosphorus also elevated. patient is also already on phosphate binders. Patient is asymptomatic and at his baseline. Patient has dialysis tomorrow morning. He would receive dialysis far quicker going to his regular appointment that if I admitted to hospital. I discussed admission versus discharge the patient is in her comfortable just going to his regularly scheduled appointment tomorrow. -DDX includes but is not limited to: End-stage renal disease, hyperkalemia, hyperphosphatemia -Co-morbidities complicating care: End-stage renal disease -Independent interpretation of studies: potassium 7.5 without EKG changes. Phosphate elevated 9.6. Independent EKG interpretation: Rhythm [sinus], Rate [92], Roby -[normal], MS -[normal], QRS [narrow], QTC [normal], T waves -[negative for concerning inversions], ST Segments - [Negative for concerning elevations] Final interpretations: [Normal Sinus Rhythm - no classic signs of hyperkalemia -Interventions: Lokelma -Shared decision making / Disposition: discharge Vital Signs Vital Signs: Vital Signs Temperature 97.6 F 12/18/23 21:37 Pulse Rate 100 12/18/23 21:37 Respiratory Rate 16 12/18/23 21:37 Blood Pressure 199/118 H 12/18/23 21:37 Pulse Oximetry 100 12/18/23 21:37 Oxygen Delivery Room Air 12/18/23 21:37 Temperature 98.1 F 12/18/23 22:59 Pulse Rate 96 12/19/23 00:02 Respiratory Rate 16 12/19/23 00:02 Blood Pressure 175/112 H 12/19/23 00:02 Pulse Oximetry 100 12/19/23 00:02 Oxygen Delivery Room Air 12/18/23 21:37 Lab Data 12/18/23 23:48 12/18/23 23:48 Labs: Lab Results 12/18/23 12/18/2312/18/24 Range/Units 23:48 23:48 23:48 WBC 8.5 (4.5-10.0) K/mm3 RBC 3.40 L (4.6-6.20) M/mm3 Hgb 9.3 L (14.0-18.0) g/dL Hct 30.5 L (42.0-52.0) % MCV 89.7 (80-100) fl MCH 27.4 (26-34) pg MCHC 30.5 L (32-36) g/dl RDW 17.7 H (11.5-14.5) % Plt Count 206 (150-375) k/mm3 MPV 9.7 (7.4-10.4) fl Immature Gran % (Auto) 0.2 (0-0.5) % Neut % (Auto) 68.5 (45.5-73.1) % Lymph % (Auto) 20.5 (18.3-44.2) % [place] % (Auto) 8.7 H (2.6-8.5) % Eos % (Auto) 1.3 (0-4.4) % Baso % (Auto) 0.8 (0.2-1.2) % Lymph # (Auto) 1.74 (0.9-3.2) K/mm3 [place] # (Auto) 0.7 H (0.1-0.6) K/mm3 Eos # (Auto) 0.1 (0-0.3) K/mm3 Baso # (Auto) 0.1 (0.0-0.1) K/mm3 Abs Immat Gran (auto) 0.02 (0.00-0.031) K/mm3 Absolute Neuts (auto) 5.8 (1.3-6.7) K/mm3 Absolute Nucleated RBC 0.0 (0.0-0.012) K/mm3 Nucleated RBC % 0.0 (0.0-0.2) % Sodium 135 L (137-145) mmol/L Potassium 7.6 H* (3.4-5.0) mmol/L Chloride 103 (98-107) mmol/L Carbon Dioxide 18 L (22-30) mmol/L Anion Gap 14 (8-16) mmol/L BUN 62 H D (9-20) mg/dL Creatinine 8.90 H (0.7-1.3) mg/dL Estim Creat Clear Calc Not Reportable Estimated GFR 6 L (59 - ) Glucose 89 (65-110) mg/dL Calcium 10.3 H (8.4-10.2) mg/dL Phosphorus 9.6 H Cancelled (2.5-4.5) mg/dL Magnesium 2.4 H Cancelled (1.6-2.3) mg/dL Total Bilirubin 0.6 (0.2-1.3) mg/dL AST 24 (17-59) U/L ALT 17 (6-50) U/L Alkaline Phosphatase 175 H (38-126) U/L Total Protein 8.0 (6.3-8.2) g/dL Albumin 4.1 (3.5-5.1) g/dL Discharge Plan Discharge Clinical Impression: End stage renal failure on dialysis Patient Disposition: Home, Self-Care Condition: Stable Instructions: Antibiotic Form, End Stage Kidney Disease (ED) Additional Instructions: please report directly to dialysis for your appointment tomorrow. Please bring up your concerns about potassium and phosphorus. Prescriptions: No Action venlafaxine 75 mg tablet 75 mg PO TID lisinopril 10 mg tablet 10 mg PO DAILY ondansetron 4 mg tablet,disintegrating 4 mg PO Q8H PRN (Reason: nausea and vomiting) Qty: 20 0RF hydralazine 25 mg tablet 50 mg PO TID sevelamer carbonate [Renvela] 800 mg tablet 1,600 mg PO TIDWM pregabalin 75 mg capsule 75 mg PO DAILY bumetanide 2 mg tablet 2 mg PO DAILY famotidine 20 mg Tablet 20 mg PO DAILY docusate sodium 100 mg Capsule 100 mg PO DAILY calcitriol 0.25 mcg Capsule 0.25 mcg PO MOWEFR Rx Instructions: administer after dialysis on dialysis days cholecalciferol (vitamin D3) 50 mcg (2,000 unit) Tablet 2,000 unit PO DAILY melatonin 3 mg Tablet 6 mg PO HS Qty: 30 0RF Follow-up/Referrals: Aquilino Burris MD [Primary Care Provider] -
[2023-12-19] MEDS: SODIUM ZIRCONIUM CYCLOSILICATE 10 GM POWD.PACK PO (01:11)
[2023-12-19 01:44] VITALS: BP 170/115; PULSE 72; RESP 22; O2SAT 95
== END 2023-12-19 01:45 | disposition home or self-care (01) ==
PROVIDERS: Emergency Provider Emergency Medicine; PCP Family Medicine
DX: I13.0 Hypertensive heart and chronic kidney disease with heart failure and stage 1 through stage 4 chronic kidney disease, or unspecified chronic kidney disease (principal); I50.40 Unspecified combined systolic (congestive) and diastolic (congestive) heart failure; E11.22 Type 2 diabetes mellitus with diabetic chronic kidney disease; N18.9 Chronic kidney disease, unspecified; E78.2 Mixed hyperlipidemia; Z86.73 Personal history of transient ischemic attack (TIA), and cerebral infarction without residual deficits; Z87.891 Personal history of nicotine dependence
CPT/HCPCS: 36415; 80053; 83735; 84100; 85025; 93005; 99283; A9270

== ENCOUNTER 2024-01-17 16:54 | Emergency (ER) | payer MEDICARE, OTHER, SELFPAY ==
[2024-01-17] VITALS (15 sets, daily range): BP systolic 178–228; BP diastolic 99–140; PULSE 83–96; RESP 11–27; TEMP 36.2; O2SAT 98–100
--- NOTE | ~2024-01-17 | CT_ITS ---
EXAMINATION: CT chest abdomen pelvis wo con DATE: 01/17/2024 19:22 INDICATION: epigastric pain, dyspnea . TECHNIQUE: Computed tomography (CT) of the chest, abdomen, and pelvis was performed with 100 mL Omnip aque-350 intravenous contrast. Automated exposure control and iterative reconstruction technique were employed. The dose-length product was 1242.60 mGy-cm. COMPARISON: CT abdomen pelvis 10/09/2023; CT chest 05/17/2023 FINDINGS: CHEST: External defibrillator creates beam hardening artifact in the chest and upper abdomen. Thoracic aorta: Ascending aortic ectasia. Atherosclerotic calcifications. Lung parenchyma and airways: Airways clear. Mild diffuse, somewhat dependent groundglass opacities an d mild septal thickening. Thoracic inlet, axillae and chest wall: No thyroid or soft tissue mass. No axillary lymphadenopathy. Fat density 8.7 cm left chest wall mass, likely lipoma. Intact sternotomy wires. Mediastinum: No mass or lymphadenopathy. Heart and pericardium: Cardiomegaly. Mitral calcification. No pericardial effusion. Aortic valve repl acement. Retained epicardial pacing wires. Coronary artery calcifications: Moderate. Pleura: No effusion or mass. Thoracic bones: No acute osseous finding in the chest. ABDOMEN/PELVIS: Motion artifact in the upper abdomen. Liver: Nodular liver border. Biliary/Gallbladder: Gallbladder is normal. No bile duct dilation. Pancreas: No mass or duct dilation. Spleen: Normal. Adrenals:No mass. Kidneys: No suspicious mass, obstructing stone, or hydronephrosis. Bilateral renal atrophy. GI tract: No small or large bowel dilation. Normal appendix. Mesentery/Peritoneum: No mass or free air. Moderate volume peritoneal fluid. Retroperitoneum: No mass Atherosclerotic abdominal aortic and/or arterial calcifications. Pelvis: Bladder wall thickening in a partially distended urinary bladder. Mild prostatomegaly. Soft Tissues: Small, fat-containing right inguinal hernia. Abdominopelvic bones: No acute osseous finding in the abdomen/pelvis. IMPRESSION: Mild interstitial edema. 8.7 cm left chest wall lipoma, consider surgical referral for possible resection. Cirrhosis. Moderate ascites. Cystitis versus bladder wall thickening from outlet obstruction. Reviewed, dictated and finalized at location K. IMPRESSION: Mild interstitial edema. 8.7 cm left chest wall lipoma, consider surgical referral for possible resectio n. Cirrhosis. Moderate ascites. Cystitis versus bladder wall thickening from outlet obstruction.
--- NOTE | ~2024-01-17 | CT_ITS ---
EXAMINATION: CT brain wo con DATE: 01/17/2024 20:20 INDICATION: ams . TECHNIQUE: Computed tomography (CT) of the head was performed without intravenous contrast. The mA wa s adjusted according to patient size. Iterative reconstruction technique was employed. The dose-lengt h product was 681.00 mGy-cm. COMPARISON: 07/21/2023. FINDINGS: No acute intracranial hemorrhage or extra-axial fluid collection. No hydrocephalus, mass, or herniation. No acute ischemic infarct. Unremarkable dural venous sinus attenuation. No acute osseous abnormality. Right maxillary retention cyst/polyp, the remaining aerated spaces are clear. Multiple abandoned [employer] shunts. Right posterior frontal and inferior frontal, right occipital, right ce rebellar, left parietal and left frontal encephalomalacia. IMPRESSION: No acute intracranial process. Reviewed, dictated and finalized at location K.
--- NOTE | ~2024-01-17 | XR_ITS ---
EXAMINATION: XR chest 1V portable Exam Date/Time: 01/17/2024 17:15 CDT HISTORY: CP Comparison: 10/09/2023. RESULT: Lines, tubes, and devices: Dual-lumen right IJ dialysis catheter terminating at the cavoatrial junct ion. Intact sternotomy wires. Cardiac valve replacement. Electronic devices project over the chest. Lungs and pleura: Mild diffuse reticular and groundglass opacities. No focal consolidation, pleural effusion, or pneumothorax detected. Cardiomediastinal silhouette: Stable. Other: No acute osseous or upper abdominal finding. IMPRESSION: Mild interstitial edema. Reviewed, dictated and finalized at location K. IMPRESSION: Mild interstitial edema.
--- NOTE | 2024-01-17 17:09 | ECG_ITS ---
Measurements Intervals [place] Rate: 90 P: -60 [place]: 187 QRS: -86 QRSD: 241 T: -2 QT: 478 QTc: 586 Interpretive Statements ATRIAL FLUTTER/TACHYCARDIA LEFT AXIS DEVIATION RIGHT BUNDLE BRANCH BLOCK INFERIOR INFARCT, AGE INDETERMINATE ANTEROLATERAL INFARCT, AGE INDETERMINATE ABNORMAL ECG COMPARED TO ECG 12/19/2023 00:35:55 ATRIAL FLUTTER RIGHT BUNDLE-BRANCH BLOCK NOW PRESENT Electronically Signed On 01-17-2024 19:25:05 CDT by Jairo French D.O.
[2024-01-17 17:26] LABS: Basophils Percent Auto 0.2 % (0.2-1.2); Hematocrit 36.8 % (42.0-52.0); Hemoglobin 11.5 g/dL (14.0-18.0); Immature Granulocyte Absolute 0.15 K/mm3 (0.00-0.031); Lymphocytes Absolute Auto 1.18 K/mm3 (0.9-3.2); Lymphocytes Percent Auto 7.8 % (18.3-44.2); Mean Corpuscular HGB Conc 31.3 g/dl (32-36); Mean Corpuscular Hemoglobin 27.2 pg (26-34); Mean Platelet Volume 11.7 fl (7.4-10.4); Monocytes Absolute Auto 1.2 K/mm3 (0.1-0.6); Monocytes Percent Auto 8.1 % (2.6-8.5); Neutrophils Absolute Auto 12.6 K/mm3 (1.3-6.7); Neutrophils Percent Auto 82.9 % (45.5-73.1); Nucleated Red Blood Cells Perc 0.4 % (0.0-0.2); Platelet Count Result 204 k/mm3 (150-375); Red Blood Count 4.23 M/mm3 (4.6-6.20); Red Cell Distribution Width 18.5 % (11.5-14.5); White Blood Count 15.2 K/mm3 (4.5-10.0)
--- NOTE | 2024-01-17 17:43 | ED_ITS ---
HPI - General Adult General Chief complaint: Unspecified <Emanuel Odom PA-C - Last Filed: 01/18/24 02:04> Stated complaint: needing dialysis <Emanuel Odom PA-C - Last Filed: 01/18/24 02:04> Time Seen by Provider: 01/17/24 17:24 <Emanuel Odom PA-C - Last Filed: 01/18/24 02:04> Source: patient <WING Lynne Last Filed: 01/18/24 02:04> Mode of arrival: ambulatory <WING Lynne Last Filed: 01/18/24 02:04> Limitations: no limitations <Emanuel Odom PA-C - Last Filed: 01/18/24 02:04> History of Present Illness HPI narrative: This is a 58-year-old male with multiple comorbidities who presents to the ED with chief complaint of nausea, vomiting and abdominal pain over the past couple of days. Patient has a ESRD, liver failure, heart failure and missed his dialysis appointment yesterday due to feeling ill. Patient's is here and states that he decided to come to the ED today after home health saw him and convinced him to be evaluated. Reports intermittent chest pain and shortness of breath today but states he is not having any currently. Reports some mild abdominal pain now. He is having some word slurring on history taking and the states that that has been present for the past couple of weeks now. They recently were discharged from [facility] and were told that this would likely be his new normal. states that they were told that his life expectation would be no more than 1 year. Patient arrives with life vest on. He confirms with myself and attending Dr. Steen that he would like to be DNR and DNI. He does not wish to pursue hospice care at this point. Alert and oriented x4 and mentating appropriately. <WING Lynne Last Filed: 01/18/24 02:04> Related Data Home medications: Home Medications Medication Instructions Recorded Confirmed sevelamer carbonate 800 mg tablet 1,600 mg PO TIDWM 11/24/22 01/17/24 (Renvela) pregabalin 75 mg capsule 75 mg PO DAILY 07/11/23 01/17/24 calcitriol 0.25 mcg capsule 0.25 mcg PO MOWEFR 09/19/23 01/17/24 cholecalciferol (vitamin D3) 50 2,000 unit PO DAILY 09/19/23 01/17/24 mcg (2,000 unit) tablet famotidine 20 mg tablet 10 mg PO DAILY 09/19/23 01/17/24 venlafaxine 75 mg tablet 100 mg PO BID 10/09/23 01/17/24 apixaban 5 mg tablet (Eliquis) 5 mg PO BID 01/17/24 01/17/24 aspirin 81 mg tablet 81 mg PO DAILY 01/17/24 01/17/24 atorvastatin 80 mg tablet 80 mg PO HS 01/17/24 01/17/24 guanfacine 1 mg tablet,extended 1 mg PO BID 01/17/24 01/17/24 release 24 hr lactulose 10 gram/15 mL oral 10 g PO TID 01/17/24 01/17/24 solution losartan 25 mg tablet 50 mg PO DAILY 01/17/24 01/17/24 metoprolol succinate 50 mg 50 mg PO DAILY 01/17/24 01/17/24 tablet,extended release 24 hr rifaximin 550 mg tablet 550 mg PO BID 01/17/24 01/17/24 spironolactone 25 mg tablet 12.5 mg PO DAILY 01/17/24 01/17/24 thiamine HCl (vitamin B1) 100 mg 100 mg PO DAILY 01/17/24 01/17/24 tablet <Emanuel Odom PA-C - Last Filed: 01/18/24 02:04> Allergies/adverse reactions: Allergies Allergy/AdvReac Type Severity Reaction Status Date / Time No Known Allergies Allergy Verified 01/17/24 17:21 <Emanuel Odom PA-C - Last Filed: 01/18/24 02:04> Review of Systems Review of Systems: All systems as dictated in HPI <Emanuel Odom PA-C - Last Filed: 01/18/24 02:04> [facility] Past Medical History Medical History: Medical History (Updated 01/18/24 @ 02:04 by Emanuel Odom PA-C) Arthritis Bicuspid aortic valve Severe aortic stenosis status post bioprosthetic aortic valve replacement. Cerebrovascular accident (09/21/20) Thought to be embolic in nature, on long-term anticoagulation. Residual dysarthria. 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 Required temporary dialysis for a few months in spring 2019. Combined systolic and diastolic congestive heart failure Echocardiogram dated 11/03/2020 showed mildly enlarged left ventricular chamber with normal left ventricular systolic function and ejection fraction of 55 to 60% (as low as 35% on previous echos), moderate increased LV wall thickness, grade 3 diastolic dysfunction, and mild mitral and tricuspid valve regurgitation. COVID-19 Diabetes Diabetic foot ulcer Diabetic foot ulcer Dialysis patient Encounter for central line placement End-stage renal disease on peritoneal dialysis Essential hypertension Finger fracture Foot abscess, right Former smoker 50 pack year smoking history, quit in 1987. Gastroesophageal reflux disease Hiatal hernia History of hemodialysis History of acute kidney injury on chronic kidney disease requiring hemodialysis in 2019. He has had a right IJ temporary dialysis catheter placed in 01/2020 and then a tunneled dialysis catheter in 02/2020, which was removed in 05/2020. History of osteomyelitis History of stroke with current residual effects Hypertension Impingement syndrome of left shoulder Insulin dependent type 2 diabetes mellitus Complicated by nephropathy, neuropathy, and retinopathy. Mixed hyperlipidemia Nausea & vomiting Non-healing ulcer of foot Osteomyelitis of foot, right, acute Peripheral vascular disease Renal osteodystrophy Right hemiplegia <Emanuel Odom PA-C - Last Filed: 01/18/24 02:04> Surgical History Surgical History: Surgical History (Updated 11/20/23 @ 16:01 by Rashard Rocha PA-C) Amputation of left great toe (2019) Secondary to osteomyelitis. History of aortic valve replacement (07/24/20) 25 mm Inspiris bioprosthetic valve per Dr. Nam Daniels at [facility]. History of carpal tunnel release History of coronary artery bypass graft x 1 (07/24/20) Saphenous vein graft to obtuse marginal per Dr. Nam Daniels at [facility]. History of tonsillectomy Hx of AKA (above knee amputation) bilateral S/p bilateral carpal tunnel release right 1988 left 1991 left 1991 S/P CABG x 1 (~07/24/20) S/P decompression of ulnar nerve at elbow 1998 <Emanuel Odom PA-C - Last Filed: 01/18/24 02:04> Family History Family History: Family History Mother Family history of arthritis Family history of diabetes mellitus in first degree relative Family history of malignant neoplasm of breast in first degree relative Family history of coronary artery disease Alive and well Hypertension Father Malignant neoplasm of prostate Hypertension Sibling Family history of diabetes mellitus in first degree relative Sibling Family history of diabetes mellitus in first degree relative <Emanuel Odom PA-C - Last Filed: 01/18/24 02:04> Social History Social History: Social History Social History: The patient lives with his in [place]. He has 3 adult children and 2 step children. Smoked 2 packs of cigarettes per day for 25 years and quit in 2007. No alcohol or illicit substance abuse. He worked at a [employer] for many years. He designates his , Aishwarya Bautista, as his surrogate decision maker. code status dnr Smoking packs per day: 2 Smoking cigarettes per day: 40.0 Years smoked: 45 Smoking pack-years: 90.00 Smoking status: Former smoker Tobacco type: cigarettes Second hand tobacco smoke exposure: Yes Smoking end date: 10/23/07 Alcohol intake: former Alcohol use details: rarely Substance use: never Substance use type: does not use Other substance usage details: takes prescription meds as ordered Last use: ETOH ~ 2 beers/year--last use summer 2022 Lack of Transportation: No Lack of Food: Never True Current Housing: I Have Housing Concerned About Future Housing: No Difficulty Paying Gas/Electric Bills: No Difficulty Paying for Meds: No Currently Unemployed: No Education: Bachelor's Degree Difficulty w/ Childcare or Family Care: No Living arrangements: with family Occupation/Education: unemployed Spiritual care concerns: No Agree to blood products: Yes <Emanuel Odom PA-C - Last Filed: 01/18/24 02:04> Exam Narrative: GENERAL: Well-appearing, well-nourished, and in no acute distress. HEAD: Normocephalic, atraumatic. EYES: scleral icterus present. PERRLA and EOMI. ENT: Nares clear, no rhinorrhea or epistaxis. Mucous membranes moist. Oropharynx without tonsillar hypertrophy exudate or other lesions. NECK: Supple. No adenopathy or masses. CHEST: No respiratory distress. Clear to auscultation. No wheezes rales or rhonchi HEART: Regular rate and rhythm. No murmur heard. Normal peripheral pulses. ABDOMEN: Mildly tender in the epigastrium. Soft, nondistended, normal active bowel sounds. MSK: Bilateral AKA SKIN: Jaundice present. Warm, dry, no rash. NEURO: Alert and oriented x4. No focal deficits. PSYCH: Normal mood and affect. <Emanuel Odom PA-C - Last Filed: 01/18/24 02:04> Course Course Emergency Course: : Spoke with Ailyn ([facility]): He accepts the transfer. recommends lowering the blood pressure little bit before transfer. He agrees with plan for hyperkalemia treatments. Re-evaluation 1944: Patient having intermittent episodes of apneic breathing. difficult to arouse but obeys basic commands. Placed on 2 L of oxygen. ABG shows low to saturation 85. PH 7.22. Bicarb 13. Carbon dioxide 33. lactic acid elevated at 3.9. Appears to be in a lactic acidosis. Bicarb drip started. Will start slow LRs after. Re-evaluation 2144: Patient More easily arousable and following basic commands. Blood pressure has improved to 179/105 after starting hydralazine and nitro paste. 2148: Patient transferred to this is in [facility] in stable but serious condition. <Emanuel Odom PA-C - Last Filed: 01/18/24 02:04> OUTSIDE SALESPERSON/PA Physician Supervision For this patient encounter, I reviewed the OUTSIDE SALESPERSON or PA documentation, treatment plan, and medical decision making; and I had [id number] time with this patient. <Tawanda Steen MD - Last Filed: 01/18/24 19:18> Vital Signs Vital signs: Vital Signs Temperature 97.1 F L 01/17/24 17:00 Pulse Rate 91 01/17/24 17:00 Respiratory Rate 12 01/17/24 17:00 Blood Pressure 228/140 H 01/17/24 17:00 Pulse Oximetry 100 01/17/24 17:00 Oxygen Delivery Room Air 01/17/24 17:00 Temperature 97.1 F L 01/17/24 17:00 Pulse Rate 96 01/17/24 21:31 Respiratory Rate 23 H 01/17/24 21:31 Blood Pressure 179/105 H 01/17/24 21:31 Pulse Oximetry 100 01/17/24 21:31 Oxygen Delivery Room Air 01/17/24 17:00 <Emanuel Odom PA-C - Last Filed: 01/18/24 02:04> Vital Signs Temperature 97.1 F L 01/17/24 17:00 Pulse Rate 91 01/17/24 17:00 Respiratory Rate 12 01/17/24 17:00 Blood Pressure 228/140 H 01/17/24 17:00 Pulse Oximetry 100 01/17/24 17:00 Oxygen Delivery Room Air 01/17/24 17:00 Temperature 97.1 F L 01/17/24 17:00 Pulse Rate 96 01/17/24 21:31 Respiratory Rate 23 H 01/17/24 21:31 Blood Pressure 179/105 H 01/17/24 21:31 Pulse Oximetry 100 01/17/24 21:31 Oxygen Delivery Room Air 01/17/24 17:00 <Tawanda Steen MD - Last Filed: 01/18/24 19:18> Medical Decision Making MDM Narrative Medical decision making narrative: this is a 58-year-old male who presents to the ED for chief complaint N/V and abdominal pain. Chronically ill with numerous comorbidities. ESRD and missed dialysis yesterday. Vitals show initial elevated BP at 228/140 but otherwise normal. Exam who remarkable for the above. He is chronically ill-appearing. Bilateral AKAs present. Jaundiced skin. No significant abdominal distension but he does have some mild epigastric tenderness. EKG is quite concerning for widened QRS and peaked T-waves, likely consistent with hyperkalemia. Initial lab work coming back elevated white count of 15.2, stable hemoglobin. CMP remarkable for critically high potassium at 8.8. repeat BMP shows potassium improved to 7.5 with medical management. Hyperphosphatemia and hypermagnesemia are present as well. Lactic acid elevated to 3.9. Elevated anion gap of 26. Troponin elevated but seems to be at baseline for the patient, suspect this is due to ESRD status, rather than acute coronary syndrome. along with dilaudid and zofran, patient was started on medical management for hyperkalemia. Calcium gluconate given. 5 units of insulin, albuterol, Lokelma were started. Shortly after starting hyperkalemia meds his rhythm strip and ECG did improve markedly. UA and viral swabs are largely unremarkable. Patient arrived with a normal mentation and confirmed to myself and attending that he is DNR and DNI. During the course of his stay his mental status did decline as he became less easily arousable and not conversing but still following basic commands. ABG was obtained showing a metabolic acidosis. Suspect a worsening mental status is due to patient being acidotic and acutely ill. He was started on bicarb drip and did start to become more easily arousable. CT imaging of the brain is unremarkable. CT the chest, abdomen and pelvis remarkable only for mild interstitial edema, cirrhosis and moderate ascites. at this point I feel he would most improve from dialysis. Lengthy discussion with patient and family regarding his poor clinical outlook. Offered hospice services but patient is not yet ready for this. discussed this case with Dr. Frazier (nephrology) who agrees with initial medical management. He states that this patient will likely need to be somewhere with emergent dialysis capabilities and feels he will likely need transfer. Discussed the case with Internal Medicine in the [facility] system who has accepted the patient to [facility]. they do request that we give him something for his blood pressure. He was given hydralazine and nitro paste with subsequent improvement of blood pressure to 179/105. Vitals remained stable and he is saturating well on room air. Discussed the plan of transfer with patient and family and they are understanding and agreeable. He will be transferred in stable condition with guarded prognosis. <Emanuel Odom PA-C - Last Filed: 01/18/24 02:04> Vital Signs Vital Signs: Vital Signs Temperature 97.1 F L 01/17/24 17:00 Pulse Rate 91 01/17/24 17:00 Respiratory Rate 12 01/17/24 17:00 Blood Pressure 228/140 H 01/17/24 17:00 Pulse Oximetry 100 01/17/24 17:00 Oxygen Delivery Room Air 01/17/24 17:00 Temperature 97.1 F L 01/17/24 17:00 Pulse Rate 96 01/17/24 21:31 Respiratory Rate 23 H 01/17/24 21:31 Blood Pressure 179/105 H 01/17/24 21:31 Pulse Oximetry 100 01/17/24 21:31 Oxygen Delivery Room Air 01/17/24 17:00 <Emanuel Odom PA-C - Last Filed: 01/18/24 02:04> Vital Signs Temperature 97.1 F L 01/17/24 17:00 Pulse Rate 91 01/17/24 17:00 Respiratory Rate 12 01/17/24 17:00 Blood Pressure 228/140 H 01/17/24 17:00 Pulse Oximetry 100 01/17/24 17:00 Oxygen Delivery Room Air 01/17/24 17:00 Temperature 97.1 F L 01/17/24 17:00 Pulse Rate 96 01/17/24 21:31 Respiratory Rate 23 H 01/17/24 21:31 Blood Pressure 179/105 H 01/17/24 21:31 Pulse Oximetry 100 01/17/24 21:31 Oxygen Delivery Room Air 01/17/24 17:00 <Tawanda Steen MD - Last Filed: 01/18/24 19:18> Lab Data Result diagrams: 01/17/24 17:17 01/17/24 19:50 <Emanuel Odom PA-C - Last Filed: 01/18/24 02:04> Labs: Lab Results 01/17/24 01/17/24 01/17/24 Range/Units 17:17 17:25 18:22 WBC 15.2 H (4.5-10.0) K/mm3 RBC 4.23 L (4.6-6.20) M/mm3 Hgb 11.5 L (14.0-18.0) g/dL Hct 36.8 L (42.0-52.0) % MCV 87.0 (80-100) fl MCH 27.2 (26-34) pg MCHC 31.3 L (32-36) g/dl RDW 18.5 H (11.5-14.5) % Plt Count 204 (150-375) k/mm3 MPV 11.7 H (7.4-10.4) fl Immature Gran % (Auto) 1.0 H (0-0.5) % Neut % (Auto) 82.9 H (45.5-73.1) % Lymph % (Auto) 7.8 L (18.3-44.2) % Sac % (Auto) 8.1 (2.6-8.5) % Eos % (Auto) 0.0 (0-4.4) % Baso % (Auto) 0.2 (0.2-1.2) % Lymph # (Auto) 1.18 (0.9-3.2) K/mm3 Sac # (Auto) 1.2 H (0.1-0.6) K/mm3 Eos # (Auto) 0.0 (0-0.3) K/mm3 Baso # (Auto) 0.0 (0.0-0.1) K/mm3 Abs Immat Gran (auto) 0.15 H (0.00-0.031) K/mm3 Absolute Neuts (auto) 12.6 H (1.3-6.7) K/mm3 Absolute Nucleated RBC 0.060 H (0.0-0.012) K/mm3 Nucleated RBC % 0.4 H (0.0-0.2) % Sodium 139 (137-145) mmol/L Potassium 8.8 H* (3.4-5.0) mmol/L Chloride 102 (98-107) mmol/L Carbon Dioxide 11 L (22-30) mmol/L Anion Gap 26 H (4-12) mmol/L BUN 94 H D (9-20) mg/dL Creatinine 11.40 H (0.7-1.3) mg/dL Estim Creat Clear Calc Not Reportable Estimated GFR 5 L (59 - ) Glucose 119 H (65-110) mg/dL POC Capillary Glucose 112 H (65-105) mg/dl Lactic Acid (0.7-2.0) mmol/L Calcium 10.6 H (8.4-10.2) mg/dL Phosphorus (2.5-4.5) mg/dL Magnesium (1.6-2.3) mg/dL Total Bilirubin 1.2 (0.2-1.3) mg/dL AST 539 H (17-59) U/L ALT 502 H (6-50) U/L Alkaline Phosphatase 134 H (38-126) U/L Ammonia (9-30) umol/L Troponin I 0.143 H* (0.000-0.034) ng/mL Total Protein 9.0 H (6.3-8.2) g/dL Albumin 4.7 (3.5-5.1) g/dL Lipase (23-300) U/L Urine Color (Yellow) Urine Appearance (Clear) Urine pH (5.0-9.0) Ur Specific [place] (1.001-1.035) Urine Protein (Negative) mg/dL Urine Glucose (UA) (Negative) mg/dL Urine Ketones (Negative) mg/dL Ur Blood (Man) (Negative) Urine Nitrate (Negative) Urine Bilirubin (Negative) Urine Urobilinogen (<2.0) mg/dL Add Ur Microanalysis Leukocyte Esterase Rfl (Negative) COURT/UL Urine RBC (0-2) /hpf Urine WBC (0-3) /hpf Ur Squamous Epith Cells (Few) /hpf Urine Bacteria /hpf Urine Casts Influenza A (RT-PCR) Negative (Negative) Influenza B (RT-PCR) Negative (Negative) RSV (RT-PCR) Negative (Negative) SARS-CoV-2 RNA (RT-PCR) Negative (Negative) 01/17/24 01/17/24 01/17/24 Range/Units 18:46 19:14 19:44 WBC (4.5-10.0) K/mm3 RBC (4.6-6.20) M/mm3 Hgb (14.0-18.0) g/dL Hct (42.0-52.0) % MCV (80-100) fl MCH (26-34) pg MCHC (32-36) g/dl RDW (11.5-14.5) % Plt Count (150-375) k/mm3 MPV (7.4-10.4) fl Immature Gran % (Auto) (0-0.5) % Neut % (Auto) (45.5-73.1) % Lymph % (Auto) (18.3-44.2) % Sac % (Auto) (2.6-8.5) % Eos % (Auto) (0-4.4) % Baso % (Auto) (0.2-1.2) % Lymph # (Auto) (0.9-3.2) K/mm3 Sac # (Auto) (0.1-0.6) K/mm3 Eos # (Auto) (0-0.3) K/mm3 Baso # (Auto) (0.0-0.1) K/mm3 Abs Immat Gran (auto) (0.00-0.031) K/mm3 Absolute Neuts (auto) (1.3-6.7) K/mm3 Absolute Nucleated RBC (0.0-0.012) K/mm3 Nucleated RBC % (0.0-0.2) % Sodium (137-145) mmol/L Potassium (3.4-5.0) mmol/L Chloride (98-107) mmol/L Carbon Dioxide (22-30) mmol/L Anion Gap (4-12) mmol/L BUN (9-20) mg/dL Creatinine (0.7-1.3) mg/dL Estim Creat Clear Calc Estimated GFR (59 - ) Glucose (65-110) mg/dL POC Capillary Glucose 131 H (65-105) mg/dl Lactic Acid 3.9 H (0.7-2.0) mmol/L Calcium (8.4-10.2) mg/dL Phosphorus 15.1 H (2.5-4.5) mg/dL Magnesium 2.7 H (1.6-2.3) mg/dL Total Bilirubin (0.2-1.3) mg/dL AST (17-59) U/L ALT (6-50) U/L Alkaline Phosphatase (38-126) U/L Ammonia (9-30) umol/L Troponin I (0.000-0.034) ng/mL Total Protein (6.3-8.2) g/dL Albumin (3.5-5.1) g/dL Lipase 399 H (23-300) U/L Urine Color Yellow (Yellow) Urine Appearance Clear (Clear) Urine pH 6.0 (5.0-9.0) Ur Specific [place] 1.025 (1.001-1.035) Urine Protein 3+ H (Negative) mg/dL Urine Glucose (UA) Trace H (Negative) mg/dL Urine Ketones Trace H (Negative) mg/dL Ur Blood (Man) 2+ H (Negative) Urine Nitrate Negative (Negative) Urine Bilirubin Negative (Negative) Urine Urobilinogen 0.2 (<2.0) mg/dL Add Ur Microanalysis Reviewed Leukocyte Esterase Rfl Negative (Negative) COURT/UL Urine RBC 0-2 (0-2) /hpf Urine WBC 0-5 (0-3) /hpf Ur Squamous Epith Cells None seen (Few) /hpf Urine Bacteria None seen /hpf Urine Casts 0-2 Influenza A (RT-PCR) (Negative) Influenza B (RT-PCR) (Negative) RSV (RT-PCR) (Negative) SARS-CoV-2 RNA (RT-PCR) (Negative) 01/17/24 01/17/24 Range/Units 19:50 21:19 WBC (4.5-10.0) K/mm3 RBC (4.6-6.20) M/mm3 Hgb (14.0-18.0) g/dL Hct (42.0-52.0) % MCV (80-100) fl MCH (26-34) pg MCHC (32-36) g/dl RDW (11.5-14.5) % Plt Count (150-375) k/mm3 MPV (7.4-10.4) fl Immature Gran % (Auto) (0-0.5) % Neut % (Auto) (45.5-73.1) % Lymph % (Auto) (18.3-44.2) % Sac % (Auto) (2.6-8.5) % Eos % (Auto) (0-4.4) % Baso % (Auto) (0.2-1.2) % Lymph # (Auto) (0.9-3.2) K/mm3 Sac # (Auto) (0.1-0.6) K/mm3 Eos # (Auto) (0-0.3) K/mm3 Baso # (Auto) (0.0-0.1) K/mm3 Abs Immat Gran (auto) (0.00-0.031) K/mm3 Absolute Neuts (auto) (1.3-6.7) K/mm3 Absolute Nucleated RBC (0.0-0.012) K/mm3 Nucleated RBC % (0.0-0.2) % Sodium 139 (137-145) mmol/L Potassium 7.5 H* (3.4-5.0) mmol/L Chloride 103 (98-107) mmol/L Carbon Dioxide 14 L (22-30) mmol/L Anion Gap 22 H (4-12) mmol/L BUN 96 H (9-20) mg/dL Creatinine 11.10 H (0.7-1.3) mg/dL Estim Creat Clear Calc Not Reportable Estimated GFR 5 L (59 - ) Glucose 129 H (65-110) mg/dL POC Capillary Glucose (65-105) mg/dl Lactic Acid (0.7-2.0) mmol/L Calcium 10.5 H (8.4-10.2) mg/dL Phosphorus (2.5-4.5) mg/dL Magnesium (1.6-2.3) mg/dL Total Bilirubin (0.2-1.3) mg/dL AST (17-59) U/L ALT (6-50) U/L Alkaline Phosphatase (38-126) U/L Ammonia < 9 L (9-30) umol/L Troponin I 0.139 H* (0.000-0.034) ng/mL Total Protein (6.3-8.2) g/dL Albumin (3.5-5.1) g/dL Lipase (23-300) U/L Urine Color (Yellow) Urine Appearance (Clear) Urine pH (5.0-9.0) Ur Specific [place] (1.001-1.035) Urine Protein (Negative) mg/dL Urine Glucose (UA) (Negative) mg/dL Urine Ketones (Negative) mg/dL Ur Blood (Man) (Negative) Urine Nitrate (Negative) Urine Bilirubin (Negative) Urine Urobilinogen (<2.0) mg/dL Add Ur Microanalysis Leukocyte Esterase Rfl (Negative) COURT/UL Urine RBC (0-2) /hpf Urine WBC (0-3) /hpf Ur Squamous Epith Cells (Few) /hpf Urine Bacteria /hpf Urine Casts Influenza A (RT-PCR) (Negative) Influenza B (RT-PCR) (Negative) RSV (RT-PCR) (Negative) SARS-CoV-2 RNA (RT-PCR) (Negative) <Emanuel Odom PA-C - Last Filed: 01/18/24 02:04> Lab Results 01/17/24 01/17/24 01/17/24 Range/Units 17:17 17:25 18:22 WBC 15.2 H (4.5-10.0) K/mm3 RBC 4.23 L (4.6-6.20) M/mm3 Hgb 11.5 L (14.0-18.0) g/dL Hct 36.8 L (42.0-52.0) % MCV 87.0 (80-100) fl MCH 27.2 (26-34) pg MCHC 31.3 L (32-36) g/dl RDW 18.5 H (11.5-14.5) % Plt Count 204 (150-375) k/mm3 MPV 11.7 H (7.4-10.4) fl Immature Gran % (Auto) 1.0 H (0-0.5) % Neut % (Auto) 82.9 H (45.5-73.1) % Lymph % (Auto) 7.8 L (18.3-44.2) % Sac % (Auto) 8.1 (2.6-8.5) % Eos % (Auto) 0.0 (0-4.4) % Baso % (Auto) 0.2 (0.2-1.2) % Lymph # (Auto) 1.18 (0.9-3.2) K/mm3 Sac # (Auto) 1.2 H (0.1-0.6) K/mm3 Eos # (Auto) 0.0 (0-0.3) K/mm3 Baso # (Auto) 0.0 (0.0-0.1) K/mm3 Abs Immat Gran (auto) 0.15 H (0.00-0.031) K/mm3 Absolute Neuts (auto) 12.6 H (1.3-6.7) K/mm3 Absolute Nucleated RBC 0.060 H (0.0-0.012) K/mm3 Nucleated RBC % 0.4 H (0.0-0.2) % Sodium 139 (137-145) mmol/L Potassium 8.8 H* (3.4-5.0) mmol/L Chloride 102 (98-107) mmol/L Carbon Dioxide 11 L (22-30) mmol/L Anion Gap 26 H (4-12) mmol/L BUN 94 H D (9-20) mg/dL Creatinine 11.40 H (0.7-1.3) mg/dL Estim Creat Clear Calc Not Reportable Estimated GFR 5 L (59 - ) Glucose 119 H (65-110) mg/dL POC Capillary Glucose 112 H (65-105) mg/dl Lactic Acid (0.7-2.0) mmol/L Calcium 10.6 H (8.4-10.2) mg/dL Phosphorus (2.5-4.5) mg/dL Magnesium (1.6-2.3) mg/dL Total Bilirubin 1.2 (0.2-1.3) mg/dL AST 539 H (17-59) U/L ALT 502 H (6-50) U/L Alkaline Phosphatase 134 H (38-126) U/L Ammonia (9-30) umol/L Troponin I 0.143 H* (0.000-0.034) ng/mL Total Protein 9.0 H (6.3-8.2) g/dL Albumin 4.7 (3.5-5.1) g/dL Lipase (23-300) U/L Urine Color (Yellow) Urine Appearance (Clear) Urine pH (5.0-9.0) Ur Specific [place] (1.001-1.035) Urine Protein (Negative) mg/dL Urine Glucose (UA) (Negative) mg/dL Urine Ketones (Negative) mg/dL Ur Blood (Man) (Negative) Urine Nitrate (Negative) Urine Bilirubin (Negative) Urine Urobilinogen (<2.0) mg/dL Add Ur Microanalysis Leukocyte Esterase Rfl (Negative) COURT/UL Urine RBC (0-2) /hpf Urine WBC (0-3) /hpf Ur Squamous Epith Cells (Few) /hpf Urine Bacteria /hpf Urine Casts Influenza A (RT-PCR) Negative (Negative) Influenza B (RT-PCR) Negative (Negative) RSV (RT-PCR) Negative (Negative) SARS-CoV-2 RNA (RT-PCR) Negative (Negative) 01/17/24 01/17/24 01/17/24 Range/Units 18:46 19:14 19:44 WBC (4.5-10.0) K/mm3 RBC (4.6-6.20) M/mm3 Hgb (14.0-18.0) g/dL Hct (42.0-52.0) % MCV (80-100) fl MCH (26-34) pg MCHC (32-36) g/dl RDW (11.5-14.5) % Plt Count (150-375) k/mm3 MPV (7.4-10.4) fl Immature Gran % (Auto) (0-0.5) % Neut % (Auto) (45.5-73.1) % Lymph % (Auto) (18.3-44.2) % Sac % (Auto) (2.6-8.5) % Eos % (Auto) (0-4.4) % Baso % (Auto) (0.2-1.2) % Lymph # (Auto) (0.9-3.2) K/mm3 Sac # (Auto) (0.1-0.6) K/mm3 Eos # (Auto) (0-0.3) K/mm3 Baso # (Auto) (0.0-0.1) K/mm3 Abs Immat Gran (auto) (0.00-0.031) K/mm3 Absolute Neuts (auto) (1.3-6.7) K/mm3 Absolute Nucleated RBC (0.0-0.012) K/mm3 Nucleated RBC % (0.0-0.2) % Sodium (137-145) mmol/L Potassium (3.4-5.0) mmol/L Chloride (98-107) mmol/L Carbon Dioxide (22-30) mmol/L Anion Gap (4-12) mmol/L BUN (9-20) mg/dL Creatinine (0.7-1.3) mg/dL Estim Creat Clear Calc Estimated GFR (59 - ) Glucose (65-110) mg/dL POC Capillary Glucose 131 H (65-105) mg/dl Lactic Acid 3.9 H (0.7-2.0) mmol/L Calcium (8.4-10.2) mg/dL Phosphorus 15.1 H (2.5-4.5) mg/dL Magnesium 2.7 H (1.6-2.3) mg/dL Total Bilirubin (0.2-1.3) mg/dL AST (17-59) U/L ALT (6-50) U/L Alkaline Phosphatase (38-126) U/L Ammonia (9-30) umol/L Troponin I (0.000-0.034) ng/mL Total Protein (6.3-8.2) g/dL Albumin (3.5-5.1) g/dL Lipase 399 H (23-300) U/L Urine Color Yellow (Yellow) Urine Appearance Clear (Clear) Urine pH 6.0 (5.0-9.0) Ur Specific [place] 1.025 (1.001-1.035) Urine Protein 3+ H (Negative) mg/dL Urine Glucose (UA) Trace H (Negative) mg/dL Urine Ketones Trace H (Negative) mg/dL Ur Blood (Man) 2+ H (Negative) Urine Nitrate Negative (Negative) Urine Bilirubin Negative (Negative) Urine Urobilinogen 0.2 (<2.0) mg/dL Add Ur Microanalysis Reviewed Leukocyte Esterase Rfl Negative (Negative) COURT/UL Urine RBC 0-2 (0-2) /hpf Urine WBC 0-5 (0-3) /hpf Ur Squamous Epith Cells None seen (Few) /hpf Urine Bacteria None seen /hpf Urine Casts 0-2 Influenza A (RT-PCR) (Negative) Influenza B (RT-PCR) (Negative) RSV (RT-PCR) (Negative) SARS-CoV-2 RNA (RT-PCR) (Negative) 01/17/24 01/17/24 Range/Units 19:50 21:19 WBC (4.5-10.0) K/mm3 RBC (4.6-6.20) M/mm3 Hgb (14.0-18.0) g/dL Hct (42.0-52.0) % MCV (80-100) fl MCH (26-34) pg MCHC (32-36) g/dl RDW (11.5-14.5) % Plt Count (150-375) k/mm3 MPV (7.4-10.4) fl Immature Gran % (Auto) (0-0.5) % Neut % (Auto) (45.5-73.1) % Lymph % (Auto) (18.3-44.2) % Sac % (Auto) (2.6-8.5) % Eos % (Auto) (0-4.4) % Baso % (Auto) (0.2-1.2) % Lymph # (Auto) (0.9-3.2) K/mm3 Sac # (Auto) (0.1-0.6) K/mm3 Eos # (Auto) (0-0.3) K/mm3 Baso # (Auto) (0.0-0.1) K/mm3 Abs Immat Gran (auto) (0.00-0.031) K/mm3 Absolute Neuts (auto) (1.3-6.7) K/mm3 Absolute Nucleated RBC (0.0-0.012) K/mm3 Nucleated RBC % (0.0-0.2) % Sodium 139 (137-145) mmol/L Potassium 7.5 H* (3.4-5.0) mmol/L Chloride 103 (98-107) mmol/L Carbon Dioxide 14 L (22-30) mmol/L Anion Gap 22 H (4-12) mmol/L BUN 96 H (9-20) mg/dL Creatinine 11.10 H (0.7-1.3) mg/dL Estim Creat Clear Calc Not Reportable Estimated GFR 5 L (59 - ) Glucose 129 H (65-110) mg/dL POC Capillary Glucose (65-105) mg/dl Lactic Acid (0.7-2.0) mmol/L Calcium 10.5 H (8.4-10.2) mg/dL Phosphorus (2.5-4.5) mg/dL Magnesium (1.6-2.3) mg/dL Total Bilirubin (0.2-1.3) mg/dL AST (17-59) U/L ALT (6-50) U/L Alkaline Phosphatase (38-126) U/L Ammonia < 9 L (9-30) umol/L Troponin I 0.139 H* (0.000-0.034) ng/mL Total Protein (6.3-8.2) g/dL Albumin (3.5-5.1) g/dL Lipase (23-300) U/L Urine Color (Yellow) Urine Appearance (Clear) Urine pH (5.0-9.0) Ur Specific [place] (1.001-1.035) Urine Protein (Negative) mg/dL Urine Glucose (UA) (Negative) mg/dL Urine Ketones (Negative) mg/dL Ur Blood (Man) (Negative) Urine Nitrate (Negative) Urine Bilirubin (Negative) Urine Urobilinogen (<2.0) mg/dL Add Ur Microanalysis Leukocyte Esterase Rfl (Negative) COURT/UL Urine RBC (0-2) /hpf Urine WBC (0-3) /hpf Ur Squamous Epith Cells (Few) /hpf Urine Bacteria /hpf Urine Casts Influenza A (RT-PCR) (Negative) Influenza B (RT-PCR) (Negative) RSV (RT-PCR) (Negative) SARS-CoV-2 RNA (RT-PCR) (Negative) <Tawanda Steen MD - Last Filed: 01/18/24 19:18> ABG Data ABG results: 01/17/24 19:50 Puncture Site Right radial ABG pH 7.223 L* ABG pCO2 33.1 L ABG pO2 69.1 L ABG PO2/FiO2 Ratio 3.29 ABG HCO3 13.3 L ABG O2 Saturation 90.7 L ABG O2 Content 13.3 L ABG Base Excess -13.2 A-a Gradient 41.0 Oxyhemoglobin 85.0 L* Total Hemoglobin 11.1 L O2 Delivery Device Room air O2 Liters/Min Not Reportable FiO2 21 <Emanuel Odom PA-C - Last Filed: 01/18/24 02:04> 01/17/24 19:50 Puncture Site Right radial ABG pH 7.223 L* ABG pCO2 33.1 L ABG pO2 69.1 L ABG PO2/FiO2 Ratio 3.29 ABG HCO3 13.3 L ABG O2 Saturation 90.7 L ABG O2 Content 13.3 L ABG Base Excess -13.2 A-a Gradient 41.0 Oxyhemoglobin 85.0 L* Total Hemoglobin 11.1 L O2 Delivery Device Room air O2 Liters/Min Not Reportable FiO2 21 <Tawanda Steen MD - Last Filed: 01/18/24 19:18> ECG Data EKG #1: ECG completion date: 01/17/24 <Emanuel Odom PA-C - Last Filed: 01/18/24 02:04> ECG completion time: 17:11 <Emanuel Odom PA-C - Last Filed: 01/18/24 02:04> Prior ECG tracings: available for review <Emanuel Odom PA-C - Last Filed: 01/18/24 02:04> Interpretation: sinus rhythm Rate 90 significant increased QRS duration significant increase QT prolongation peaked T-waves present no STEMI <Emanuel Odom PA-C - Last Filed: 01/18/24 02:04> EKG #2: ECG completion date: 01/17/24 <Emanuel Odom PA-C - Last Filed: 01/18/24 02:04> ECG completion time: 19:47 <Emanuel Odom PA-C - Last Filed: 01/18/24 02:04> Prior ECG tracings: available for review <Emanuel Odom PA-C - Last Filed: 01/18/24 02:04> Interpretation: sinus rhythm with first-degree AV block QRS improved to 98ms QTC improved to 436ms nonspecific ST and T-wave changes No STEMI <Emanuel Odom PA-C - Last Filed: 01/18/24 02:04> Critical Care Time Critical Care Time Critical Care Time: Yes <Emanuel Odom PA-C - Last Filed: 01/18/24 02:04> Total Critical Care Time: 35 <Emanuel Odom PA-C - Last Filed: 01/18/24 02:04> 45 <aTwanda Steen MD - Last Filed: 01/18/24 19:18> Discharge Plan Discharge Clinical Impression: Acute hyperkalemia, Hypertensive emergency, Cirrhosis, Abdominal ascites <Emanuel Odom PA-C - Last Filed: 01/18/24 02:04> Patient Disposition: Acute Care Hospital <Emanuel Odom PA-C - Last Filed: 01/18/24 02:04> Condition: Guarded Prognosis <Emanuel Odom PA-C - Last Filed: 01/18/24 02:04> Prescriptions: No Action venlafaxine 75 mg tablet 100 mg PO BID sevelamer carbonate [Renvela] 800 mg tablet 1,600 mg PO TIDWM pregabalin 75 mg capsule 75 mg PO DAILY atorvastatin 80 mg tablet 80 mg PO HS metoprolol succinate 50 mg tablet extended release 24 hr 50 mg PO DAILY thiamine HCl (vitamin B1) 100 mg Tablet 100 mg PO DAILY spironolactone 25 mg tablet 12.5 mg PO DAILY losartan 25 mg tablet 50 mg PO DAILY Adult Aspirin 81 mg Tablet 81 mg PO DAILY lactulose 10 gram/15 mL solution 10 g PO TID guanfacine 1 mg tablet extended release 24 hr 1 mg PO BID rifaximin 550 mg Tablet 550 mg PO BID Eliquis 5 mg tablet 5 mg PO BID famotidine 20 mg Tablet 10 mg PO DAILY calcitriol 0.25 mcg Capsule 0.25 mcg PO MOWEFR Rx Instructions: administer after dialysis on dialysis days cholecalciferol (vitamin D3) 50 mcg (2,000 unit) Tablet 2,000 unit PO DAILY <Emanuel Odom PA-C - Last Filed: 01/18/24 02:04> Follow-up/Referrals: Aquilino Burris MD [Primary Care Provider] - <Emanuel Odom PA-C - Last Filed: 01/18/24 02:04>
[2024-01-17 18:06] LABS: Influenza A QL RT-PCR Negative (Negative); Influenza B QL RT-PCR Negative (Negative); RSV RNA, RT-PCR Negative (Negative); SARS-CoV-2 RNA PCR Negative (Negative)
[2024-01-17] MEDS: HYDROmorphone HCL INJ (*CRX) 1 MG/ML SYR 0.5 MG IV PUSH (18:11)
[2024-01-17 18:13] LABS: Alanine Aminotransferase 502 U/L (6-50); Albumin Level 4.7 g/dL (3.5-5.1); Alkaline Phosphatase 134 U/L (38-126); Anion Gap 26 mmol/L (4-12); Aspartate Amino Transferase 539 U/L (17-59); Bilirubin,Total 1.2 mg/dL (0.2-1.3); Blood Urea Nitrogen 94 mg/dL (9-20); Calcium 10.6 mg/dL (8.4-10.2); Carbon Dioxide 11 mmol/L (22-30); Chloride 102 mmol/L (98-107); Estimated Glomerular Filt Rate 5; Glucose 119 mg/dL (65-110); Potassium 8.8 mmol/L (3.4-5.0); Sodium 139 mmol/L (137-145); Troponin I 0.143 ng/mL (0.000-0.034)
[2024-01-17 18:26] LABS: Glucose Point of Care 112 mg/dl (65-105)
[2024-01-17] MEDS: ONDANSETRON INJ 4 MG/2 ML VIAL IV PUSH (18:31)
[2024-01-17] MEDS: INSULIN HUMAN REGULAR (*BKC) 100 UNITS/ML IV PUSH (18:31)
[2024-01-17] MEDS: CALCIUM GLUC 1,000 MG/NS 50 ML 1,000 MG/50 ML BAG 100 MG IVPB (18:31)
[2024-01-17] MEDS: DEXTROSE 50% 25 GM/50 ML SYRINGE IV PUSH (18:32)
[2024-01-17] MEDS: SODIUM ZIRCONIUM CYCLOSILICATE 10 GM POWD.PACK PO (18:32)
[2024-01-17] MEDS: ALBUTEROL SULFATE NEB 2.5 MG/3 ML INH 10 MG INHALATION (18:36)
--- NOTE | 2024-01-17 18:43 | ECG_ITS ---
Measurements Intervals [place] Rate: 95 P: 15 KS: 215 QRS: 30 QRSD: 98 T: 34 QT: 346 QTc: 436 Interpretive Statements SINUS RHYTHM WITH FIRST DEGREE AV BLOCK LOW QRS VOLTAGE IN PRECORDIAL LEADS INFERIOR INFARCT, AGE INDETERMINATE ABNORMAL ECG COMPARED TO ECG 01/17/2024 17:11:50 SINUS RHYTHM NOW PRESENT FIRST DEGREE AV BLOCK NOW PRESENT Electronically Signed On 01-18-2024 6:23:40 CDT by Jairo French D.O.
[2024-01-17 19:01] LABS: Bacteria Urine None Seen /hpf; Need Manual Microscopic Reviewed; Non Pathogenic Casts 0-2; RBC Urine 0-2 /hpf (0-2); Squamous Epithelial Cell Urine None Seen /hpf (Few); WBC Urine 0-5 /hpf (0-3)
[2024-01-17 19:09] LABS: Appearance Urine Clear (Clear); Color Urine Yellow (Yellow); Specific Grav Ur 1.025 (1.001-1.035)
[2024-01-17 19:10] LABS: Bilirubin Urine Negative (Negative); Blood Urine 2+ (Negative); Glucose Urine UA Trace mg/dL (Negative); Ketones Urine Trace mg/dL (Negative); Leukocyte Esterase Ur Negative LEU/UL (Negative); Nitrate Urine Negative (Negative); Protein Urine 3+ mg/dL (Negative); Urobilinogen Urine 0.2 mg/dL (<2.0)
[2024-01-17 19:11] LABS: Add Urine Microscopic? YES
--- NOTE | 2024-01-17 19:24 | PC.NURSE ---
Assumed care of pt. Bedside report obtained from JESENIA Rose. Pt to CT at this time. Family at bedside.
[2024-01-17 19:34] LABS: Lactic Acid Reflex 3.9 mmol/L (0.7-2.0); Lipase 399 U/L (23-300)
--- NOTE | 2024-01-17 19:37 | ECG_ITS ---
Measurements Intervals [place] Rate: 97 P: 3 MA: 204 QRS: -52 QRSD: 134 T: 18 QT: 390 QTc: 496 Interpretive Statements SINUS RHYTHM LEFT AXIS DEVIATION RIGHT BUNDLE BRANCH BLOCK LOW VOLTAGE- PRECORDIAL LEADS INFERIOR INFARCT, AGE INDETERMINATE ANTEROLATERAL INFARCT, AGE INDETERMINATE ABNORMAL ECG COMPARED TO ECG 01/17/2024 17:11:50 SINUS RHYTHM NOW PRESENT Electronically Signed On 01-18-2024 12:11:54 CDT by Jairo French D.O.
[2024-01-17 19:38] LABS: Magnesium 2.7 mg/dL (1.6-2.3)
[2024-01-17 19:47] LABS: Glucose Point of Care 131 mg/dl (65-105)
[2024-01-17] MEDS: hydrALAZINE HCL 20 MG/ML VIAL 10 MG IV PUSH (19:55)
[2024-01-17] MEDS: NITROGLYCERIN OINTMENT 1 INCH DOSE TRANSDERM (19:57)
[2024-01-17 20:00] LABS: Base Excess ABG -13.2 mEq/l (+/-2.0); Fractional Inspired Oxygen 21 %; HCO3 ABG 13.3 mEq/l (22.0-26.0); Oxygen Content ABG 13.3 %vol (16.0-22.0); Oxygen Saturation ABG 90.7 % (95.0-100.0); PCO2 ABG 33.1 mmHg (35.0-45.0); PO2 ABG 69.1 mmHg (80.0-100.0); PO2 FiO2 Ratio Arterial Blood 3.29 %; Total Hemoglobin 11.1 g/dL (12.0-18.0)
--- NOTE | 2024-01-17 20:00 | PC.NURSE ---
Pt having periods of apnea and less responsive than what was described in report. ERP to bedside. ABG ordered. Pt placed on 2L NC for support. BS rechecked and 131.
[2024-01-17 20:03] LABS: Device ROOM AIR; Modified Allen's Test Pass; Site Drawn RIGHT RADIAL; pH ABG 7.223 (7.350-7.450)
[2024-01-17 20:11] LABS: Phosphorus 15.1 mg/dL (2.5-4.5)
[2024-01-17 20:17] LABS: Anion Gap 22 mmol/L (4-12); Blood Urea Nitrogen 96 mg/dL (9-20); Calcium 10.5 mg/dL (8.4-10.2); Carbon Dioxide 14 mmol/L (22-30); Chloride 103 mmol/L (98-107); Estimated Glomerular Filt Rate 5; Glucose 129 mg/dL (65-110); Potassium 7.5 mmol/L (3.4-5.0); Sodium 139 mmol/L (137-145)
[2024-01-17 20:33] LABS: Troponin I 0.139 ng/mL (0.000-0.034)
[2024-01-17] MEDS: LACTATED RINGERS 1,000 ML 125 ML IV CONT (20:34)
--- NOTE | 2024-01-17 21:10 | PC.NURSE ---
Pt color improved, able to open eyes to name, less periods of apnea. remains at bedside and update given.
[2024-01-17] MEDS: SODIUM BICARBONATE 8.4% 100 MEQ in DEXTROSE 5% 1,000 ML 1,000 ML 50 MEQ IV CONT (21:15)
[2024-01-17 21:36] LABS: Ammonia < 9 umol/L (9-30)
[2024-01-17 22:20] LABS: Reflex Lactic Acid Yes or No Add Lactic
== END 2024-01-17 21:53 | disposition short-term general hospital (02) ==
PROVIDERS: Emergency Medicine; Emergency Provider Physician Assistant; PCP Family Medicine
DX: E87.5 Hyperkalemia (principal); I16.1 Hypertensive emergency; K74.60 Unspecified cirrhosis of liver; R18.8 Other ascites; Z20.822 Contact with and (suspected) exposure to COVID-19; I13.2 Hypertensive heart and chronic kidney disease with heart failure and with stage 5 chronic kidney disease, or end stage renal disease; E11.22 Type 2 diabetes mellitus with diabetic chronic kidney disease; N18.6 End stage renal disease; I50.40 Unspecified combined systolic (congestive) and diastolic (congestive) heart failure; Z99.2 Dependence on renal dialysis; E11.21 Type 2 diabetes mellitus with diabetic nephropathy; E11.40 Type 2 diabetes mellitus with diabetic neuropathy, unspecified; E11.319 Type 2 diabetes mellitus with unspecified diabetic retinopathy without macular edema; E11.51 Type 2 diabetes mellitus with diabetic peripheral angiopathy without gangrene; I73.9 Peripheral vascular disease, unspecified; I69.922 Dysarthria following unspecified cerebrovascular disease; E78.2 Mixed hyperlipidemia; N25.0 Renal osteodystrophy; M19.90 Unspecified osteoarthritis, unspecified site; K21.9 Gastro-esophageal reflux disease without esophagitis; Z95.1 Presence of aortocoronary bypass graft; Z87.891 Personal history of nicotine dependence; Z86.16 Personal history of COVID-19; Z95.2 Presence of prosthetic heart valve; Z89.612 Acquired absence of left leg above knee; Z89.611 Acquired absence of right leg above knee; Z79.82 Long term (current) use of aspirin; Z79.01 Long term (current) use of anticoagulants; I48.92 Unspecified atrial flutter; R00.0 Tachycardia, unspecified; I45.10 Unspecified right bundle-branch block; R94.31 Abnormal electrocardiogram [ECG] [EKG]; I44.0 Atrioventricular block, first degree
CPT/HCPCS: 36415; 36600; 70450; 71045; 71250; 74176; 80048; 80053; 81001; 82140; 82805; 82948; 83605; 83690; 83735; 84100; 84484; 85025; 87637; 93005; 94640; 96361; 96365; 96375; 99285; A9270; J0360; J0612; J1170; J1815; J2405; J7070; J7120

== ENCOUNTER 2024-01-26 09:21 | Outpatient (CLI) | payer MEDICARE, OTHER, SELFPAY ==
--- NOTE | ~2024-01-26 | XR_ITS ---
EXAMINATION: XR chest 2V DATE: 01/26/2024 09:50 INDICATION: Cough TECHNIQUE: frontal and lateral views of the chest were obtained. COMPARISON: Chest CT dated 01/17/2024 FINDINGS: Calcified right lower lobe nodule and calcified right hilar and mediastinal lymph nodes consistent wi th old granulomatous disease. No other airspace opacities, pulmonary edema, pleural effusion or pneum othorax. The cardiomediastinal silhouette is normal. Median sternotomy wires and mediastinal surgical clips are seen, likely from prior coronary artery bypass grafting. There is also been prior aortic v alve repair. Large-bore dual-lumen right internal jugular central venous catheter with distal tip at the superior cavoatrial junction. Multiple leads and defibrillator pads external to the patient proje cting over the chest. There are several old healed left-sided rib fractures. IMPRESSION: 1. No acute cardiopulmonary disease. Reviewed, dictated and finalized at location A.
[2024-01-26 10:36] LABS: Basophils Absolute Auto 0.1 K/mm3 (0.0-0.1); Basophils Percent Auto 0.7 % (0.2-1.2); Eosinophils Absolute Auto 0.1 K/mm3 (0-0.3); Eosinophils Percent Auto 1.5 % (0-4.4); Hematocrit 35.5 % (42.0-52.0); Hemoglobin 10.1 g/dL (14.0-18.0); Immature Granulocyte Absolute 0.04 K/mm3 (0.00-0.031); Immature Granulocyte Percent A 0.4 % (0-0.5); Lymphocytes Percent Auto 14.3 % (18.3-44.2); Mean Corpuscular HGB Conc 28.5 g/dl (32-36); Mean Corpuscular Hemoglobin 26.6 pg (26-34); Mean Corpuscular Volume 93.7 fl (80-100); Mean Platelet Volume 11.1 fl (7.4-10.4); Monocytes Absolute Auto 1.4 K/mm3 (0.1-0.6); Monocytes Percent Auto 15.3 % (2.6-8.5); Neutrophils Absolute Auto 6.2 K/mm3 (1.3-6.7); Neutrophils Percent Auto 67.8 % (45.5-73.1); Platelet Count Result 194 k/mm3 (150-375); Red Blood Count 3.79 M/mm3 (4.6-6.20); Red Cell Distribution Width 19.5 % (11.5-14.5); White Blood Count 9.1 K/mm3 (4.5-10.0)
[2024-01-26 10:52] LABS: Alanine Aminotransferase 78 U/L (6-50); Albumin Level 4.1 g/dL (3.5-5.1); Alkaline Phosphatase 264 U/L (38-126); Anion Gap 10 mmol/L (4-12); Aspartate Amino Transferase 29 U/L (17-59); Bilirubin,Total 0.9 mg/dL (0.2-1.3); Blood Urea Nitrogen 42 mg/dL (9-20); Carbon Dioxide 24 mmol/L (22-30); Chloride 104 mmol/L (98-107); Estimated Glomerular Filt Rate 9; Glucose 96 mg/dL (65-110); Potassium 5.4 mmol/L (3.4-5.0); Sodium 138 mmol/L (137-145)
[2024-01-26 11:05] LABS: Influenza A QL RT-PCR Negative (Negative); Influenza B QL RT-PCR Negative (Negative); RSV RNA, RT-PCR Negative (Negative); SARS-CoV-2 RNA PCR Negative (Negative)
[2024-01-26 11:10] LABS: Anisocytosis 1+; Hypochromasia 1+; Ovalocytes 1+; Platelet Estimate Adequate (Adequate); Schistocytes None Seen
== END 2024-01-26 09:22 | disposition home or self-care (01) ==
LOC: ANHLAB 09:25
PROVIDERS: PCP Family Medicine; Visit Provider Physician Assistant Medical
DX: E11.65 Type 2 diabetes mellitus with hyperglycemia (principal); E78.00 Pure hypercholesterolemia, unspecified; E87.5 Hyperkalemia; I50.9 Heart failure, unspecified; R05.9 Cough, unspecified; I12.0 Hypertensive chronic kidney disease with stage 5 chronic kidney disease or end stage renal disease; N18.6 End stage renal disease
CPT/HCPCS: 36415; 71046; 80053; 85025; 87637

== ENCOUNTER 2024-02-05 06:28 | Inpatient (IN) | payer MEDICARE, OTHER, SELFPAY ==
[2024-02-05] VITALS (31 sets, daily range): BP systolic 158–207; BP diastolic 83–153; PULSE 96–116; RESP 16–22; TEMP 36–37.8; O2SAT 95–100; BMI 25.3
--- NOTE | ~2024-02-05 | XR_ITS ---
Clinical Indication: Chest pain PA and lateral views of the chest: Comparison: 01/26/2024 Findings: Right-sided central venous line is unchanged. The lungs are clear, without evidence of foca l consolidation or pleural effusion. Cardiomediastinal silhouette is stable, status post aortic valv e replacement. Stable chronic left rib fracture deformities. Impression: No acute abnormality. Chronic findings, as above. Reviewed, dictated and finalized at location M. Impression: No acute abnormality. Chronic findings, as above.
--- NOTE | ~2024-02-05 | CT_ITS ---
Clinical Indication: Pulmonary embolus, abdominal distention CT Scan of the Chest, Abdomen, and Pelvis with Contrast: Technique: Contiguous sections were acquired throughout the chest, abdomen, and pelvis after intraven ous administration of 100 cc of Omnipaque 350. Dose reduction technique was used on this scan by jazz mcleaning automated exposure control and iterative reconstruction technique. The dose-length product (DL P) was 1894.57 mGy-cm. COMPARISON: 01/17/2024 Findings: There is no evidence of any significant mediastinal, hilar or axillary lymphadenopathy. Large calcifi ed subcarinal lymph node present. The mediastinal soft tissues appear normal. No pulmonary embolus. N o aortic aneurysm. Stable left axillary lipoma. There is no evidence of pleural or pericardial effusion. The lungs are clear. No pulmonary nodules or infiltrates are noted. Questionable micronodular contour of the liver. The spleen, pancreas, gallbladder, adrenals and kidne ys are within normal limits. There are atherosclerotic calcifications of the aorta. No lymphadenopat hy. No bowel obstruction or bowel wall thickening. There is no evidence to suggest acute appendicitis. Possible urinary bladder wall thickening. No pelvic mass evident. Moderate to large abdominopelvic as cites present. Impression: No pulmonary embolus. Moderate to large amount of abdominal ascites with possible early/mild cirrhotic change of the liver. Correlate clinically. Urinary bladder wall thickening could reflect cystitis. Correlate with urinalysis. Stable large lipoma at the left axillary region. Reviewed, dictated and finalized at [facility]. Impression: No pulmonary embolus. Moderate to large amount of abdominal ascites with possible early/mild cirrhoti c change of the liver. Correlate clinically. Urinary bladder wall thickening could reflect cystitis. Correlate with urinalys is. Stable large lipoma at the left axillary region.
--- NOTE | ~2024-02-05 | US_ITS ---
EXAMINATION: US paracentesis abd w/image DATE: 02/06/2024 15:23 INDICATION: Ascites. TECHNIQUE: The procedure and its risks and benefits were discussed with the patient. Potential risks discussed included bleeding and infection. The skin was prepped and draped in sterile fashion. 1% lid ocaine was used for local anesthesia. Under ultrasound guidance, a 5 Fr catheter with trochar was adv anced into the ascites in the left lower quadrant. Fluid was aspirated into vacuum bottles. The carol ter was removed, and a dressing was applied. There were no immediate complications. FINDINGS: Ultrasound images demonstrate ascites and the catheter within the fluid. IMPRESSION: 1. Successful ultrasound-guided paracentesis yielding 4100 mL of yellowish fluid. Reviewed, dictated and finalized at location A. IMPRESSION: 1. Successful ultrasound-guided paracentesis yielding 4100 mL of yellowish flu id.
--- NOTE | 2024-02-05 06:35 | ECG_ITS ---
SEE SCANNED COPY FOR CONFIRMED REPORT MTDD
[2024-02-05 06:47] LABS: Basophils Absolute Auto 0.1 K/mm3 (0.0-0.1); Basophils Percent Auto 0.7 % (0.2-1.2); Eosinophils Absolute Auto 0.1 K/mm3 (0-0.3); Eosinophils Percent Auto 0.6 % (0-4.4); Hematocrit 34.6 % (42.0-52.0); Hemoglobin 10.5 g/dL (14.0-18.0); Immature Granulocyte Absolute 0.05 K/mm3 (0.00-0.031); Immature Granulocyte Percent A 0.5 % (0-0.5); Lymphocytes Absolute Auto 1.71 K/mm3 (0.9-3.2); Lymphocytes Percent Auto 16.6 % (18.3-44.2); Mean Corpuscular HGB Conc 30.3 g/dl (32-36); Mean Corpuscular Hemoglobin 26.9 pg (26-34); Mean Corpuscular Volume 88.7 fl (80-100); Mean Platelet Volume 10.7 fl (7.4-10.4); Monocytes Percent Auto 9.3 % (2.6-8.5); Neutrophils Absolute Auto 7.4 K/mm3 (1.3-6.7); Neutrophils Percent Auto 72.3 % (45.5-73.1); Platelet Count Result 222 k/mm3 (150-375); Red Cell Distribution Width 19.9 % (11.5-14.5); White Blood Count 10.3 K/mm3 (4.5-10.0)
--- NOTE | 2024-02-05 06:50 | ED.GENADULT ---
HPI - General Adult General Chief complaint: Chest Pain <Liam Chaudhry MD - Last Filed: 02/05/24 06:55> Stated complaint: CP/SOB <Liam Chaudhry MD - Last Filed: 02/05/24 06:55> Time Seen by Provider: 02/05/24 06:44 <Liam Chaudhry MD - Last Filed: 02/05/24 06:55> Source: patient and family <Liam Chaudhry MD - Last Filed: 02/05/24 06:55> Mode of arrival: EMS <Liam Chaudhry MD - Last Filed: 02/05/24 06:55> Limitations: no limitations <Liam Chaudhry MD - Last Filed: 02/05/24 06:55> History of Present Illness HPI narrative: 58-year-old male presenting to emergency department for shortness of breath. Reports going on for 2 weeks. His is with him who says that he has some major liver, heart, and lung issues and was only given about a few months to live by [facility] doctors. They recommended hospice but he has not pursue that at this point. He says he is is feeling short of breath. EMS found him at 91% on room air and put him on supplemental oxygen which improved him to 100% and since then he has been taken off of oxygen and is currently saturating 98% on room air. Says he is feeling better. <Liam Chaudhry MD - Last Filed: 02/05/24 06:55> Related Data Home medications: Home Medications Medication Instructions Recorded Confirmed sevelamer carbonate 800 mg tablet 1,600 mg PO TIDWM 11/24/22 02/05/24 (Renvela) pregabalin 75 mg capsule 75 mg PO DAILY 07/11/23 02/05/24 calcitriol 0.25 mcg capsule 0.25 mcg PO MOWEFR 09/19/23 02/05/24 cholecalciferol (vitamin D3) 50 2,000 unit PO DAILY 09/19/23 02/05/24 mcg (2,000 unit) tablet famotidine 20 mg tablet 10 mg PO DAILY 09/19/23 02/05/24 venlafaxine 75 mg tablet 112.5 mg PO Q12H 10/09/23 02/05/24 apixaban 5 mg tablet (Eliquis) 5 mg PO BID 01/17/24 02/05/24 aspirin 81 mg tablet 81 mg PO DAILY 01/17/24 02/05/24 guanfacine 1 mg tablet,extended 1 mg PO DAILY 01/17/24 02/05/24 release 24 hr lactulose 10 gram/15 mL oral 10 g PO TID 01/17/24 02/05/24 solution losartan 25 mg tablet 50 mg PO DAILY 01/17/24 02/05/24 metoprolol succinate 50 mg 50 mg PO DAILY 01/17/24 02/05/24 tablet,extended release 24 hr rifaximin 550 mg tablet 550 mg PO Q12H 01/17/24 02/05/24 thiamine HCl (vitamin B1) 100 mg 100 mg PO DAILY 01/17/24 02/05/24 tablet pregabalin 75 mg capsule 150 mg PO HS 02/05/24 02/05/24 <Liam Chaudhry MD - Last Filed: 02/05/24 06:55> Allergies/adverse reactions: Allergies Allergy/AdvReac Type Severity Reaction Status Date / Time No Known Allergies Allergy Verified 02/05/24 08:39 <Liam Chaudhry MD - Last Filed: 02/05/24 06:55> Review of Systems Review of Systems: All systems reviewed & are unremarkable except as noted in HPI and below <Liam Chaudhry MD - Last Filed: 02/05/24 06:55> [facility] Past Medical History Medical History: Medical History Arthritis Bicuspid aortic valve Severe aortic stenosis status post bioprosthetic aortic valve replacement. Cerebrovascular accident (09/21/20) Thought to be embolic in nature, on long-term anticoagulation. Residual dysarthria. 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 Required temporary dialysis for a few months in spring 2019. Combined systolic and diastolic congestive heart failure Echocardiogram dated 11/03/2020 showed mildly enlarged left ventricular chamber with normal left ventricular systolic function and ejection fraction of 55 to 60% (as low as 35% on previous echos), moderate increased LV wall thickness, grade 3 diastolic dysfunction, and mild mitral and tricuspid valve regurgitation. COVID-19 Diabetes Diabetic f
[2024-02-05 06:58] LABS: INR 1.4; Prothrombin Time 18.1 Seconds (11.1-14.7)
[2024-02-05 06:59] LABS: Partial Thromboplastin Time 34.4 Seconds (22.3-36.8)
[2024-02-05 07:04] LABS: Alanine Aminotransferase 25 U/L (6-50); Albumin Level 4.4 g/dL (3.5-5.1); Alkaline Phosphatase 212 U/L (38-126); Anion Gap 21 mmol/L (4-12); Aspartate Amino Transferase 29 U/L (17-59); Bilirubin,Total 1.1 mg/dL (0.2-1.3); Blood Urea Nitrogen 66 mg/dL (9-20); Calcium 9.4 mg/dL (8.4-10.2); Carbon Dioxide 11 mmol/L (22-30); Chloride 98 mmol/L (98-107); Estimated CRCL calculation 10 ml/min; Estimated Glomerular Filt Rate 7; Glucose 100 mg/dL (65-110); Lipase 600 U/L (23-300); Potassium 6.3 mmol/L (3.4-5.0); Sodium 130 mmol/L (137-145)
[2024-02-05] MEDS: INSULIN HUMAN REGULAR (*BKC) 100 UNITS/ML 10 UNITS IV PUSH (07:28)
[2024-02-05] MEDS: SODIUM ZIRCONIUM CYCLOSILICATE 10 GM POWD.PACK PO (07:28)
[2024-02-05] MEDS: DEXTROSE 50% 25 GM/50 ML SYRINGE IV PUSH (07:28)
[2024-02-05] MEDS: CALCIUM GLUCONATE 1,000 MG/10 ML VIAL 1000 MG IV PUSH (07:28)
[2024-02-05 07:31] LABS: Glucose Point of Care 95 mg/dl (65-105)
[2024-02-05] MEDS: ALBUTEROL SULFATE NEB 2.5 MG/3 ML INH INHALATION (07:35)
[2024-02-05] MEDS: SODIUM CHLORIDE 0.9% IV 50 ML (07:57)
[2024-02-05 08:35] LABS: Influenza A QL RT-PCR Negative (Negative); Influenza B QL RT-PCR Negative (Negative); RSV RNA, RT-PCR Negative (Negative); SARS-CoV-2 RNA PCR Negative (Negative)
[2024-02-05] MEDS: hydrALAZINE HCL 20 MG/ML VIAL 10 MG IV PUSH (08:37)
[2024-02-05 09:13] LABS: Glucose Point of Care 77 mg/dl (65-105)
--- NOTE | 2024-02-05 10:11 | PC.NURSE ---
Provider aware of patient's BP. No new orders at this time.
[2024-02-05 10:21] LABS: Troponin I 0.187 ng/mL (0.000-0.034)
[2024-02-05 10:50] LABS: Procalcitonin 0.7 ng/mL
[2024-02-05 10:53] LABS: CRP 3.5 mg/dL (<1.0)
[2024-02-05 12:49] LABS: Troponin I 0.179 ng/mL (0.000-0.034)
--- NOTE | 2024-02-05 12:52 | PM.IMHP ---
H&P: HPI History of Present Illness Date/Time: 02/05/24 12:52 Chief Complaint: Shortness of breath Narrative: 58-year-old male presenting to emergency department for shortness of breath.? This has been ongoing since past 2 weeks.? He was recently at [facility] and was admitted for the same. Your and past medical bicuspid aortic valve status post AVR coronary disease status post CABG times SVG to OM in August 14 end-stage renal disease on hemodialysis Tuesdays hypertension hyperlipidemia diabetes sleep apnea peripheral artery disease history of stroke congestive heart failure with reduced ejection fraction down to 25%. Cirrhosis of liver with ascites admitted 12/20/2023 to 01/03/2024 after missed hemodialysis hyperkalemia to 7.7 which improved with hemodialysis. He underwent paracentesis with fluid studies showing transudative ascites. TTE showed biventricular failure with ejection fraction of 25%. He underwent cardiac catheterization on 12/24 which showed nonobstructive coronary artery disease with patent SVG to OM and moderate pulmonary hypertension. He was started on metoprolol and spironolactone for heart failure with reduced ejection fraction interest to was also started but stopped due to borderline blood pressure and dizziness. Due to low GFR empagliflozin fluid in be started. He was placed on LifeVest at the time of discharge. He continues to follow up with estimating engineer who is Dr. Rendon and also liver specialist. He has been recommended hospice enrollment which he had decline in his last admission. Due to his ongoing shortness of breath he had called EMS who found him at 91% on room air and put him on supplemental oxygen which improved him to 100% and since then he has been taken off of oxygen and is currently saturating 98% on room air. He was noted to be hypertensive. Laboratory evaluation showed WBC of 10.3 hemoglobin of 10.5 potassium was high at 6.3 with creatinine of 7.9 acidotic with bicarb of 11. Troponin was elevated at 0.179 but does have chronic elevation of the troponin serial troponin 0.2920-0.18 7-0.179. He is admitted in the setting for further treatment. Review of Systems Review of Systems: - CONSTITUTIONAL: Denies weight loss, fever and chills. - HEENT: Denies changes in vision and hearing - RESPIRATORY: Reports SOB and mild cough. - CV: Denies palpitations and CP. - GI: Denies abdominal pain, nausea, vomiting and diarrhea. Reports abdominal distension - : Denies dysuria and urinary frequency. - MSK: Denies myalgia and joint pain. - SKIN: Denies rash and pruritus. - NEUROLOGICAL: Denies headache and syncope. - PSYCHIATRIC: Denies recent changes in mood. Denies anxiety and depression. [facility] Past Medical History Medical History Arthritis Bicuspid aortic valve Severe aortic stenosis status post bioprosthetic aortic valve replacement. Cerebrovascular accident (09/21/20) Thought to be embolic in nature, on long-term anticoagulation. Residual dysarthria. 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 Required temporary dialysis for a few months in spring 2019. Combined systolic and diastolic congestive heart failure Echocardiogram dated 11/03/2020 showed mildly enlarged left ventricular chamber with normal left ventricular systolic function and ejection fraction of 55 to 60% (as low as 35% on previous echos), moderate increased LV wall thickness, grade 3 diastolic dysfunction, and mild mitral and tricuspid valve regurgitation. COVID-19 Diabetes Diabetic foot ulcer Diabetic foot ulcer Dialysis patient Encounter for central line placement End-stage renal disease on peritoneal dialysis
[2024-02-05 13:02] LABS: Hepatitis B Surface Antigen Negative (Negative)
[2024-02-05 13:19] LABS: Hepatitis B Surface Anti Res Negative
--- NOTE | 2024-02-05 13:27 | ADMGEN ---
This patient, Pankaj Bautista, was admitted to IMU Room 202-01. Patient/family oriented to hospital policies and general routines including ID bracelet, bed and alarms, visiting hours, pain management, procedures, bathroom and other care routines, personal items, smoking policy, room service/diet, and visiting hours. Information on how to activate the Rapid Response Team has been discussed. Patient/Family are encouraged to report perceived risks to care and to ask questions if they do not understand what they are told or what they should do.
[2024-02-05] MEDS: EPOETIN ALFA-EPBX 10,000 UNITS/ML VIAL 10000 UNITS IV PUSH (16:58)
--- NOTE | 2024-02-05 17:01 | PM.CNNEP ---
Assessment and Plan Assessment and plan (1) End stage renal disease: Code(s): N18.6 - End stage renal disease Status: Chronic Assessment and Plan: HD today eventual transition to T/T/S while hospitalized follow electrolytes, volume status, and clearance (2) Hyperkalemia: Code(s): E87.5 - Hyperkalemia Status: Acute Assessment and Plan: as noted by admission labs s/p medical therapy dialysis should correct further follow trend of K+ (3) Abdominal ascites: Qualifiers: Ascites type: other type Qualified Code(s): R18.8 - Other ascites Code(s): R18.8 - Other ascites Status: Acute Assessment and Plan: as noted by exam and imaging studies paracentesis ordered follow-up on fluid studies (4) Anemia: Qualifiers: Anemia type: due to chronic kidney disease Chronic kidney disease stage: stage 5, not on chronic dialysis Qualified Code(s): N18.5 - Chronic kidney disease, stage 5; D63.1 - Anemia in chronic kidney disease Code(s): D64.9 - Anemia, unspecified Status: Chronic Assessment and Plan: due to ESRD and acute illness Dpogen with dialysis follow trend of H/H (5) Hypertension: Code(s): I10 - Essential (primary) hypertension Status: Chronic Assessment and Plan: at baseline, his BP is quite erratic resume home medications follow trend of hemodynamics (6) Diabetes: Code(s): E11.9 - Type 2 diabetes mellitus without complications Status: Chronic Assessment and Plan: follow accuchecks glycemic control per hospitalistis I will continue follow the patient with you while he remains hospitalized and make further recommendations as needed. Thank you for allowing me to participate in the care of this patient. History of Present Illness Reason for Consult Consult date: 02/05/24 Reason for consult: end stage renal disease and hyperkalemia Chief Complaint Chief complaint: Hyerkalemia/ESRD/Ascites History of Present Illness Narrative: The patient is a 58-year-old male with extensive past medical history as outlined below who presented to [facility] Emergency room with complaints of shortness of breath. The patient reports that the shortness of breath has been steadily worsening over the past two weeks. He reports that he was recently hospitalized at [facility] for the same issue. As shortness of breath continued to worsen/deteriorate, he called EMS for assistance. On their arrival, his oxygen saturations were 91% on room air and supplemental oxygen was provided which increased his O2 saturations to 100%. He was subsequently transferred to the emergency room for further assessment. Workup and evaluation in the emergency room demonstrated the patient to be quite hypertensive but in no acute distress. Routine blood work demonstrated a CBC with a mildly elevated white cell count of 10.3 and stable hemoglobin. His chemistry demonstrated labs consistent with his known history of end-stage renal disease with a potassium of 6.3 in association with a metabolic acidosis. His son issue troponins were mildly elevated but he has chronic elevation of troponins for review his records. His chest x-ray showed no acute abnormality but with chronic findings of a left rib fracture and postoperative changes secondary to his aortic valve replacement surgery. He also underwent a CTA of the chest abdomen pelvis which demonstrated no pulmonary embolism but a moderate to large amount of abdominal ascites with early/mild liver cirrhosis changes. Given his constellation of symptoms and the laboratory and imaging findings as noted, he was admitted to the hospital for further evaluation and therapy. Upon further discussion with the patient and review his records, on his last hospitalization at [facility], there was a discussion with regard to
[2024-02-05] MEDS: HEPARIN SODIUM 1,000 UNITS/ML VIAL 6000 UNITS IV PUSH (17:42)
[2024-02-05] MEDS: calcitrioL 0.25 MCG CAPSULE PO (18:04)
[2024-02-05 19:25] LABS: MRSA (PCR) NOT DETECTED (NOT DETECTE)
[2024-02-05] MEDS: VENLAFAXINE HCL 37.5 MG TABLET 112.5 MG PO (20:44)
[2024-02-05] MEDS: rifAXIMin 550 MG TABLET PO (20:44)
[2024-02-05] MEDS: PREGABALIN (*CRX) 75 MG CAPSULE 150 MG PO (20:44)
[2024-02-05] MEDS: APIXABAN 5 MG TABLET PO (20:45)
[2024-02-06] VITALS (25 sets, daily range): BP systolic 123–205; BP diastolic 73–127; PULSE 77–108; RESP 16–20; TEMP 35.8–37; O2SAT 92–100
[2024-02-06 05:08] LABS: Basophils Absolute Auto 0.1 K/mm3 (0.0-0.1); Basophils Percent Auto 0.7 % (0.2-1.2); Eosinophils Percent Auto 0.5 % (0-4.4); Hematocrit 30.1 % (42.0-52.0); Hemoglobin 9.3 g/dL (14.0-18.0); Immature Granulocyte Absolute 0.04 K/mm3 (0.00-0.031); Immature Granulocyte Percent A 0.5 % (0-0.5); Lymphocytes Absolute Auto 1.24 K/mm3 (0.9-3.2); Lymphocytes Percent Auto 15.2 % (18.3-44.2); Mean Corpuscular HGB Conc 30.9 g/dl (32-36); Mean Corpuscular Volume 87.5 fl (80-100); Mean Platelet Volume 10.8 fl (7.4-10.4); Monocytes Absolute Auto 0.9 K/mm3 (0.1-0.6); Monocytes Percent Auto 11.3 % (2.6-8.5); Neutrophils Absolute Auto 5.9 K/mm3 (1.3-6.7); Neutrophils Percent Auto 71.8 % (45.5-73.1); Platelet Count Result 178 k/mm3 (150-375); Red Blood Count 3.44 M/mm3 (4.6-6.20); Red Cell Distribution Width 20.1 % (11.5-14.5); White Blood Count 8.2 K/mm3 (4.5-10.0)
[2024-02-06 05:20] LABS: Alanine Aminotransferase 20 U/L (6-50); Albumin Level 3.8 g/dL (3.5-5.1); Alkaline Phosphatase 149 U/L (38-126); Anion Gap 16 mmol/L (4-12); Aspartate Amino Transferase 25 U/L (17-59); Blood Urea Nitrogen 46 mg/dL (9-20); Calcium 9.3 mg/dL (8.4-10.2); Carbon Dioxide 18 mmol/L (22-30); Chloride 99 mmol/L (98-107); Estimated CRCL calculation 15 ml/min; Estimated Glomerular Filt Rate 12; Glucose 97 mg/dL (65-110); Magnesium 2.1 mg/dL (1.6-2.3); Potassium 4.4 mmol/L (3.4-5.0); Sodium 133 mmol/L (137-145)
[2024-02-06] MEDS: LACTULOSE 20 GM/30 ML UDC 10 GM PO ×3 (07:49→16:53)
[2024-02-06] MEDS: rifAXIMin 550 MG TABLET PO ×2 (07:49→21:17)
[2024-02-06] MEDS: ASPIRIN 81 MG CHEWABLE TABLET PO (07:49)
[2024-02-06] MEDS: CHOLECALCIFEROL 1,000 UNITS TABLET 2000 UNITS PO (07:49)
[2024-02-06] MEDS: LOSARTAN POTASSIUM 25 MG TABLET 50 MG PO (07:50)
[2024-02-06] MEDS: PREGABALIN (*CRX) 75 MG CAPSULE PO (07:50)
[2024-02-06] MEDS: THIAMINE HCL 100 MG TABLET PO (07:51)
[2024-02-06] MEDS: APIXABAN 5 MG TABLET PO ×2 (07:51→21:17)
[2024-02-06] MEDS: FAMOTIDINE 10 MG TABLET PO (07:51)
[2024-02-06] MEDS: METOPROLOL SUCCINATE EXT REL 50 MG TABCR PO (07:51)
[2024-02-06] MEDS: guanFACINE HCL 1 MG TABLET PO (07:52)
[2024-02-06] MEDS: VENLAFAXINE HCL 37.5 MG TABLET 112.5 MG PO ×2 (07:54→21:17)
--- NOTE | 2024-02-06 08:04 | PC.NURSE ---
patient to dialysis unit at 0800, patient handed off to management analyst Asael.
--- NOTE | 2024-02-06 09:40 | PM.PNNEP ---
Progress Note: A&P Assessment and Plan (1) End stage renal disease: Code(s): N18.6 - End stage renal disease Status: Chronic Assessment and Plan: HD yesterday HD toay to transition back to outpatient T/T/S schedule while hospitalized follow electrolytes, volume status, and clearance (2) Hyperkalemia: Code(s): E87.5 - Hyperkalemia Status: Acute Assessment and Plan: resolved as noted by admission labs corrected with medical management and dialysis/[employer] follow trend of K+ (3) Abdominal ascites: Qualifiers: Ascites type: other type Qualified Code(s): R18.8 - Other ascites Code(s): R18.8 - Other ascites Status: Acute Assessment and Plan: as noted by exam and imaging studies paracentesis scheduled later today follow-up on fluid studies (4) Anemia: Qualifiers: Anemia type: due to chronic kidney disease Chronic kidney disease stage: stage 5, not on chronic dialysis Qualified Code(s): N18.5 - Chronic kidney disease, stage 5; D63.1 - Anemia in chronic kidney disease Code(s): D64.9 - Anemia, unspecified Status: Chronic Assessment and Plan: due to ESRD and acute illness Epogen with dialysis follow trend of H/H (5) Hypertension: Code(s): I10 - Essential (primary) hypertension Status: Chronic Assessment and Plan: at baseline, his BP is quite erratic resume home medications follow trend of hemodynamics (6) Diabetes: Code(s): E11.9 - Type 2 diabetes mellitus without complications Status: Chronic Assessment and Plan: follow accuchecks glycemic control per hospitalists Will continue to follow. Subjective Date/time seen: 02/06/24 09:40 Interval history: Follow-up for end stage renal disease. Tolerated dialysis yesterday and tolerating dialysis at the time of my visit (seen on HD at 9:30AM); seems to be a bit restless currently but in no acute distress; paracentesis tentatively scheduled for later today; overall, appears to be doing better. Exam Narrative: General: WD/WN male in NAD Heart: normal S1 and S2; no rub Lungs: cleat to auscultation Abdomen: soft, nontender, nondistended, positive bowel sounds Extremities: no cyanosis or clubbing; s/p bilateral AKA Skin:warm and dry Objective Data Vital Signs Vital Signs: Vital Signs Temp Pulse Resp BP Pulse Ox O2 Del Method 02/06/24 09:30 90 155/95 H 02/06/24 09:15 94 170/114 H 02/06/24 09:00 93 181/106 H 02/06/24 08:45 94 166/101 H 02/06/24 11:15 81 141/85 H 02/06/24 10:45 80 126/90 02/06/24 10:00 86 157/100 H 02/06/24 09:30 87 157/102 H 02/06/24 08:34 97 205/110 H 02/06/24 08:24 97.1 F L 100 20 188/127 H 100 02/06/24 08:00 96.5 F L 90 16 175/96 H 96 02/06/24 07:51 99 02/06/24 06:00 99 02/06/24 04:00 97.6 F 101 H 20 183/102 H 98 02/06/24 04:00 104 H 02/06/24 04:00 Room Air 02/06/24 02:00 103 H 02/06/24 00:00 108 H 02/05/24 22:00 113 H 02/05/24 20:00 112 H 02/05/24 23:37 97.9 F 109 H 20 184/94 H 100 02/05/24 20:00 98.3 F 109 H 20 158/83 H 97 02/05/24 18:00 116 H 02/05/24 16:00 109 H 02/05/24 17:00 110 H 185/101 H 02/05/24 15:00 103 H 197/108 H 02/05/24 14:30 101 H 195/100 H 02/05/24 17:27 98.4 F 101 H 20 179/101 H 100 02/05/24 17:19 111 H 169/121 H 02/05/24 16:45 109 H 178/121 H 02/05/24 16:30 101 H 174/127 H 02/05/24 16:15 105 H 184/114 H 02/05/24 16:00 109 H 204/108 H 02/05/24 15:45 112 H 187/153 H 02/05/24 15:30 108 H 204/132 H 02/05/24 15:15 113 H 203/141 H 02/05/24 14:45 104 H 199/110 H 02/05/24 14:15 101 H 179/127 H 02/05/24 14:00 100 182/143 H 02/05/24 13:35 97.5 F L 101 H 20 199/138 H 9
[2024-02-06] MEDS: EPOETIN ALFA-EPBX 10,000 UNITS/ML VIAL 10000 UNITS IV PUSH (10:21)
[2024-02-06] MEDS: HEPARIN SODIUM 1,000 UNITS/ML VIAL 6000 UNITS IV PUSH (11:48)
--- NOTE | 2024-02-06 11:59 | PC.NURSE ---
Patient back from dialysis unit at 1155 with no issues during treatment.
--- NOTE | 2024-02-06 12:05 | PM.IMPN ---
Progress Note: A&P Assessment and Plan (1) Volume overload: Qualifiers: Hypervolemia type: other Qualified Code(s): E87.79 - Other fluid overload Code(s): E87.70 - Fluid overload, unspecified Status: Resolved Assessment and Plan: improving status post dialysis on 02/04 and 02/05 (2) Abdominal ascites: Qualifiers: Ascites type: other type Qualified Code(s): R18.8 - Other ascites Code(s): R18.8 - Other ascites Status: Acute Assessment and Plan: pending paracentesis (3) Elevated troponin: Code(s): R79.89 - Other specified abnormal findings of blood chemistry Status: Acute Assessment and Plan: chronically elevated, stable and down trending (4) Congestive heart failure (CHF): Qualifiers: Heart failure chronicity: acute Heart failure type: unspecified Qualified Code(s): I50.9 - Heart failure, unspecified Code(s): I50.9 - Heart failure, unspecified Status: Acute (5) End stage renal disease: Code(s): N18.6 - End stage renal disease Status: Chronic Assessment and Plan: nephrology consulted (6) Peripheral vascular disease: Code(s): I73.9 - Peripheral vascular disease, unspecified Status: Chronic (7) Essential (primary) hypertension: Code(s): I10 - Essential (primary) hypertension Status: Chronic (8) Mixed hyperlipidemia: Code(s): E78.2 - Mixed hyperlipidemia Status: Chronic (9) Anemia: Code(s): D64.9 - Anemia, unspecified Status: Acute (10) History of aortic valve replacement with bioprosthetic valve: Code(s): Z95.3 - Presence of xenogenic heart valve Status: Acute (11) CAD (coronary artery disease), autologous vein bypass graft: Code(s): I25.810 - Atherosclerosis of coronary artery bypass graft(s) without angina pectoris Status: Acute (12) Acute on chronic combined systolic and diastolic CHF (congestive heart failure): Code(s): I50.43 - Acute on chronic combined systolic (congestive) and diastolic (congestive) heart failure Status: Acute Plan Carried forward from H&P 58-year-old male presenting to emergency department for shortness of breath.? This has been ongoing since past 2 weeks.? He was recently at [facility] and was admitted for the same. Your and past medical bicuspid aortic valve status post AVR coronary disease status post CABG times SVG to OM in August 14 end-stage renal disease on hemodialysis Tuesdays hypertension hyperlipidemia diabetes sleep apnea peripheral artery disease history of stroke congestive heart failure with reduced ejection fraction down to 25%. Cirrhosis of liver with ascites admitted 12/20/2023 to 01/03/2024 after missed hemodialysis hyperkalemia to 7.7 which improved with hemodialysis. He underwent paracentesis with fluid studies showing transudative ascites. TTE showed biventricular failure with ejection fraction of 25%. He underwent cardiac catheterization on 12/24 which showed nonobstructive coronary artery disease with patent SVG to OM and moderate pulmonary hypertension. He was started on metoprolol and spironolactone for heart failure with reduced ejection fraction interest to was also started but stopped due to borderline blood pressure and dizziness. Due to low GFR empagliflozin fluid in be started. He was placed on LifeVest at the time of discharge. He continues to follow up with sports coordinator who is Dr. Rendon and also liver specialist. He has been recommended hospice enrollment which he had decline in his last admission. Due to his ongoing shortness of breath he had called EMS who found him at 91% on room air and put him on supplemental oxygen which improved him to 100% and since then he has been taken off of oxygen and is currently saturating 98% on room air. He was noted to be hypertensive. Laboratory evaluation showed WBC of 10.3
--- NOTE | 2024-02-06 14:45 | PC.NURSE ---
Pt to US via stretcher for paracentesis
--- NOTE | 2024-02-06 15:36 | PC.NURSE ---
Pt returned from US post-paracentesis. No issues noted
[2024-02-06 16:14] LABS: Source Peritoneal Fluid Peritoneal Fluid
[2024-02-06 16:15] LABS: Appearance Peritoneal Fluid Cloudy (Clear); Color Peritoneal Fluid Yellow (Colorless); Nucleated Cells Peritoneal Flu 794 /uL (0-500)
[2024-02-06 16:16] LABS: Lymphocytes Peritoneal Fluid 46 %; Macrophages Peritoneal Fluid 22 %; Mesothelial Cells Peritoneal Fluid 10 %; Monocytes Peritoneal Fluid 20 %; Neutrophils Peritoneal Fluid 2 % (0-25); RBC Peritoneal Fluid 2000 /uL (0-10000)
[2024-02-06] MEDS: SEVELAMER CARBONATE 800 MG TABLET 1600 MG PO (16:53)
[2024-02-06] MEDS: PREGABALIN (*CRX) 75 MG CAPSULE 150 MG PO (21:16)
--- NOTE | 2024-02-06 23:16 | PC.NURSE ---
This patient, Pankaj Bautista, was transferred to [[facility] ] on 02/06/24 at 2250. Personal belongings sent with patient. Report given to [Vin BA]. Appropriate documentation sent with patient. Sally, spouse, notified and verbalized understanding.
[2024-02-07 06:00] VITALS: BP 141/96; PULSE 76; RESP 20; TEMP 36.4; O2SAT 91
[2024-02-07 06:38] LABS: Basophils Percent Auto 0.6 % (0.2-1.2); Eosinophils Absolute Auto 0.1 K/mm3 (0-0.3); Eosinophils Percent Auto 1.7 % (0-4.4); Hematocrit 32.6 % (42.0-52.0); Hemoglobin 9.6 g/dL (14.0-18.0); Immature Granulocyte Absolute 0.01 K/mm3 (0.00-0.031); Immature Granulocyte Percent A 0.2 % (0-0.5); Lymphocytes Absolute Auto 1.07 K/mm3 (0.9-3.2); Lymphocytes Percent Auto 20.4 % (18.3-44.2); Mean Corpuscular HGB Conc 29.4 g/dl (32-36); Mean Corpuscular Hemoglobin 26.4 pg (26-34); Mean Corpuscular Volume 89.6 fl (80-100); Mean Platelet Volume 11.3 fl (7.4-10.4); Monocytes Absolute Auto 0.7 K/mm3 (0.1-0.6); Monocytes Percent Auto 13.9 % (2.6-8.5); Neutrophils Absolute Auto 3.3 K/mm3 (1.3-6.7); Neutrophils Percent Auto 63.2 % (45.5-73.1); Platelet Count Result 181 k/mm3 (150-375); Red Blood Count 3.64 M/mm3 (4.6-6.20); White Blood Count 5.3 K/mm3 (4.5-10.0)
[2024-02-07 07:01] LABS: Alanine Aminotransferase 17 U/L (6-50); Albumin Level 3.4 g/dL (3.5-5.1); Alkaline Phosphatase 126 U/L (38-126); Anion Gap 8 mmol/L (4-12); Aspartate Amino Transferase 21 U/L (17-59); Bilirubin,Total 0.9 mg/dL (0.2-1.3); Blood Urea Nitrogen 28 mg/dL (9-20); Calcium 9.1 mg/dL (8.4-10.2); Carbon Dioxide 30 mmol/L (22-30); Chloride 101 mmol/L (98-107); Estimated CRCL calculation 18 ml/min; Estimated Glomerular Filt Rate 14; Glucose 89 mg/dL (65-110); Magnesium 2.3 mg/dL (1.6-2.3); Potassium 4.3 mmol/L (3.4-5.0); Sodium 139 mmol/L (137-145)
[2024-02-07 07:18] LABS: Platelet Estimate Adequate (Adequate)
[2024-02-07 07:19] LABS: Microcytosis 1+ (NORMAL); Schistocytes None Seen
[2024-02-07] MEDS: CHOLECALCIFEROL 1,000 UNITS TABLET 2000 UNITS PO (08:46)
[2024-02-07] MEDS: SEVELAMER CARBONATE 800 MG TABLET 1600 MG PO ×3 (08:46→16:59)
[2024-02-07] MEDS: APIXABAN 5 MG TABLET PO ×2 (08:46→21:19)
[2024-02-07] MEDS: FAMOTIDINE 10 MG TABLET PO (08:46)
[2024-02-07] MEDS: LACTULOSE 20 GM/30 ML UDC 10 GM PO ×3 (08:46→16:58)
[2024-02-07] MEDS: METOPROLOL SUCCINATE EXT REL 50 MG TABCR PO (08:47)
[2024-02-07] MEDS: THIAMINE HCL 100 MG TABLET PO (08:47)
[2024-02-07] MEDS: LOSARTAN POTASSIUM 25 MG TABLET 50 MG PO (08:47)
[2024-02-07] MEDS: ASPIRIN 81 MG CHEWABLE TABLET PO (08:47)
[2024-02-07] MEDS: rifAXIMin 550 MG TABLET PO ×2 (08:47→21:19)
[2024-02-07] MEDS: PREGABALIN (*CRX) 75 MG CAPSULE PO (08:51)
--- NOTE | 2024-02-07 09:51 | PM.IMPN ---
Progress Note: A&P Assessment and Plan (1) End stage renal disease: Code(s): N18.6 - End stage renal disease Status: Chronic Assessment and Plan: Patient became sick during dialysis appointment and was unable to complete it at that time. He came to the hospital due to increased shortness of breath secondary to volume overload. - Received dialysis 02/04 and 02/05 inpatient - Paracentesis: cloudy appearance with 794 Nuc cells. Remander of associated labs pending. - Micro peritoneal fluid: NGTD - states symptoms have improved (2) Elevated troponin: Code(s): R79.89 - Other specified abnormal findings of blood chemistry Status: Acute Assessment and Plan: Troponin was elevated at 0. 220 on admission. Trended down to 0.179. Patient dose have chronically elevated troponin on chart review. (3) Essential hypertension: Code(s): I10 - Essential (primary) hypertension Status: Acute Assessment and Plan: Stable. Continue home medications. Subjective Date/time seen: 02/07/24 09:51 Interval history: 58 year old male with past medical history of bicuspid aortic valve status post AVR , coronary disease status post CABG times SVG to OM in August 14, end-stage renal disease on hemodialysis Tuesdays, hypertension, hyperlipidemia, diabetes, sleep apnea ,peripheral artery disease, history of stroke, cirrhosis of the liver with ascites and congestive heart failure with reduced ejection fraction down to 25% presents to the hospital for shortness of breath after an incomplete dialysis session. Patient is pleasant lying in bed. He states he is feeling much better at this time. He denies chest pain, shortness of breath, nausea/vomiting and changes in bowel/bladder. Patient remains inpatient pending paracentesis results. Review of Systems Review of Systems: All systems reviewed & are unremarkable except as noted in HPI and below Exam Narrative: AF HR 75 RR 18 SpO2 98 BP 157/89 General: male in no acute respiratory distress who is nontoxic appearing, lying semi recumbent in bed. HEENT: Normocephalic. Atraumatic. Pupils equal round reactive to light. Extraocular movement intact. Sclera clear and anicteric. No facial asymmetry. Chest: Lungs are clear to auscultation bilaterally. No wheezes or crackles. CV: Heart was regular rate and rhythm. S1/S2. No murmurs, gallops, or rubs. Abd: Abdomen was soft. Nontender. Nondistended. Positive bowel sounds. No organomegaly or masses. Ext: No clubbing, cyanosis, or edema. Bilateral AKA. Neuro: Patient is alert and oriented x4. Speech is clear. Psych: Normal nood and affect. Patient is pleasant and cooperative. Skin: Warm and dry. No rashes noted. Objective Data Vital Signs Vital Signs: Vital Signs - 24 hr 02/06/24 10:00 02/06/24 10:45 02/06/24 11:15 Temperature Pulse Rate 86 80 81 Respiratory Rate Blood Pressure 157/100 H 126/90 141/85 H Pulse Oximetry Oxygen Delivery 02/06/24 11:34 02/06/24 11:40 02/06/24 10:15 Temperature 98.1 F Pulse Rate 81 85 88 Respiratory Rate 20 Blood Pressure 151/120 H 156/84 H 157/99 H Pulse Oximetry 100 Oxygen Delivery 02/06/24 10:30 02/06/24 11:00 02/06/24 12:00 Temperature Pulse Rate 84 80 Respiratory Rate Blood Pressure 153/95 H 123/73 Pulse Oximetry Oxygen Delivery Room Air 02/06/24 12:00 02/06/24 14:00 02/06/24 10:00 Temperature Pulse Rate 94 84 86 Respiratory Rate Blood Pressure Pulse Oximetry Oxygen Delivery 02/06/24 16:00 02/06/24 20:25 02/06/24 20:00 Temperature 96.9 F L 97.2 F L Pulse Rate 81 77 Respiratory Rate 20 18 Blood Pressure 153/82 H 149/86 H Pulse Oximetry 98 92 Oxygen Delivery Room Air 02/07/24 06:00 02/07/24 09:05 Temperature 97.6 F Pulse Rate 76 Respiratory Rate 20 Blood Pressure 141/96 H Pulse Oximetry 91 Oxygen Delivery Room Air Intake/Output Intake/Output:
[2024-02-07] MEDS: VENLAFAXINE HCL 37.5 MG TABLET 112.5 MG PO ×2 (12:07→21:20)
[2024-02-07] MEDS: guanFACINE HCL 1 MG TABLET PO (12:07)
--- NOTE | 2024-02-07 13:41 | P.PNNP_ITS ---
Progress Note: A&P Assessment and Plan (1) End stage renal disease: Code(s): N18.6 - End stage renal disease Status: Chronic Assessment and Plan: * HD tomorrow * continue T/T/S schedule while hospitalized * follow electrolytes, volume status, and clearance (2) Hyperkalemia: Code(s): E87.5 - Hyperkalemia Status: Acute Assessment and Plan: * resolved * as noted by admission labs * corrected with medical management and dialysis/[employer] * follow trend of K+ (3) Abdominal ascites: Qualifiers: Ascites type: other type Qualified Code(s): R18.8 - Other ascites Code(s): R18.8 - Other ascites Status: Acute Assessment and Plan: * as noted by exam and imaging studies * s/p paracentesis with improvement in symptoms * follow-up on fluid studies (4) Anemia: Qualifiers: Anemia type: due to chronic kidney disease Chronic kidney disease stage: stage 5, not on chronic dialysis Qualified Code(s): N18.5 - Chronic kidney disease, stage 5; D63.1 - Anemia in chronic kidney disease Code(s): D64.9 - Anemia, unspecified Status: Chronic Assessment and Plan: * due to ESRD and acute illness * Epogen with dialysis * follow trend of H/H (5) Hypertension: Code(s): I10 - Essential (primary) hypertension Status: Chronic Assessment and Plan: * at baseline, his BP is quite erratic * resume home medications * follow trend of hemodynamics (6) Diabetes: Code(s): E11.9 - Type 2 diabetes mellitus without complications Status: Chronic Assessment and Plan: * follow accuchecks * glycemic control per hospitalists Will continue to follow. Subjective Date/time seen: 02/07/24 13:41 Interval history: Follow-up for end stage renal disease. Tolerated dialysis yesterday as well as large volume paracentesis (4.1L fluid removed); states he feels significantly better following paracentesis; breathing seems to be back to baseline if not better; no apparent distress. Exam Narrative: General: WD/WN male in NAD Heart: normal S1 and S2; no rub Lungs: cleat to auscultation Abdomen: soft, nontender, nondistended, positive bowel sounds Extremities: no cyanosis or clubbing; s/p bilateral AKA Skin:warm and intct Objective Data Vital Signs Vital Signs: Vital Signs Temp Pulse Resp BP Pulse Ox O2 Del Method 02/07/24 14:00 98.3 F 75 18 157/89 H 98 02/07/24 09:05 Room Air 02/07/24 06:00 97.6 F 76 20 141/96 H 91 02/06/24 20:00 Room Air 02/06/24 20:25 97.2 F L 77 18 149/86 H 92 Intake/Output Intake/Output: Intake & Output 02/04/24 02/05/24 02/06/24 02/07/24 23:59 23:59 23:59 23:59 Intake Total 170 1680 440 Output Total 4200 6100 Balance -4030 -4420 440 Meds/Results Medications: Active Medications Generic Name Dose Route Start Last Admin Trade Name Freq PRN Reason Stop Dose Admin Apixaban 5 mg 02/05/24 21:00 02/07/24 08:46 Apixaban 5 Mg Tablet PO 5 mg Q12HR ALEX Administration Aspirin 81 mg 02/06/24 08:00 02/07/24 08:47 Aspirin 81 Mg Chewable Tablet
--- NOTE | 2024-02-07 13:41 | PM.PNNEP ---
Progress Note: A&P Assessment and Plan (1) End stage renal disease: Code(s): N18.6 - End stage renal disease Status: Chronic Assessment and Plan: HD tomorrow continue T/T/S schedule while hospitalized follow electrolytes, volume status, and clearance (2) Hyperkalemia: Code(s): E87.5 - Hyperkalemia Status: Acute Assessment and Plan: resolved as noted by admission labs corrected with medical management and dialysis/[employer] follow trend of K+ (3) Abdominal ascites: Qualifiers: Ascites type: other type Qualified Code(s): R18.8 - Other ascites Code(s): R18.8 - Other ascites Status: Acute Assessment and Plan: as noted by exam and imaging studies s/p paracentesis with improvement in symptoms follow-up on fluid studies (4) Anemia: Qualifiers: Anemia type: due to chronic kidney disease Chronic kidney disease stage: stage 5, not on chronic dialysis Qualified Code(s): N18.5 - Chronic kidney disease, stage 5; D63.1 - Anemia in chronic kidney disease Code(s): D64.9 - Anemia, unspecified Status: Chronic Assessment and Plan: due to ESRD and acute illness Epogen with dialysis follow trend of H/H (5) Hypertension: Code(s): I10 - Essential (primary) hypertension Status: Chronic Assessment and Plan: at baseline, his BP is quite erratic resume home medications follow trend of hemodynamics (6) Diabetes: Code(s): E11.9 - Type 2 diabetes mellitus without complications Status: Chronic Assessment and Plan: follow accuchecks glycemic control per hospitalists Will continue to follow. Subjective Date/time seen: 02/07/24 13:41 Interval history: Follow-up for end stage renal disease. Tolerated dialysis yesterday as well as large volume paracentesis (4.1L fluid removed); states he feels significantly better following paracentesis; breathing seems to be back to baseline if not better; no apparent distress. Exam Narrative: General: WD/WN male in NAD Heart: normal S1 and S2; no rub Lungs: cleat to auscultation Abdomen: soft, nontender, nondistended, positive bowel sounds Extremities: no cyanosis or clubbing; s/p bilateral AKA Skin:warm and intct Objective Data Vital Signs Vital Signs: Vital Signs Temp Pulse Resp BP Pulse Ox O2 Del Method 02/07/24 14:00 98.3 F 75 18 157/89 H 98 02/07/24 09:05 Room Air 02/07/24 06:00 97.6 F 76 20 141/96 H 91 02/06/24 20:00 Room Air 02/06/24 20:25 97.2 F L 77 18 149/86 H 92 Intake/Output Intake/Output: Intake & Output 02/04/24 02/05/24 02/06/24 02/07/24 23:59 23:59 23:59 23:59 Intake Total 170 1680 440 Output Total 4200 6100 Balance -4030 -4420 440 Meds/Results Medications: Active Medications Generic Name Dose Route Start Last Admin Trade Name Yuliet PRN Reason Stop Dose Admin Apixaban 5 mg 02/05/24 21:00 02/07/24 08:46 Apixaban 5 Mg Tablet PO 5 mg Q12HR ALEX Administration Aspirin 81 mg 02/06/24 08:00 02/07/24 08:47 Aspirin 81 Mg Chewable Tablet PO 81 mg DAILY@0800 A[facility] Administration Calcitriol 0.25 mcg 02/05/24 18:00 02/07/24 17:00 Calcitriol 0.25 Mcg Capsule PO Not Given [email or web address]@1800 ALEX Famotidine 10 mg 02/06/24 09:00 02/07/24 08:46 Famotidine 10 Mg Tablet PO 10 mg DAILY ALEX Administration Guanfacine HCl 1 mg 02/06/24 09:00 02/07/24 12:07 Guanfacine Hcl 1 Mg Tablet PO 1 mg DAILY ALEX Administration Albumin Human 50 mls @ 999 mls/hr 02/05/24 10:34 Albutein IVPB 03/06/24 10:33 Q10M PRN HYPOTENSION Lactulose 10 gm 02/06/24 09:00 02/07/24 16:58 Lactulose 20 Gm/30 Ml Udc PO 10 gm TID ALEX Administration Losartan Potassium 50 mg 02/06/24 09:00 02/07/24 08:47 Losartan Potassium 25 Mg Tablet PO 50 mg DAILY ALEX Administration Metoprolol Succinate 50 m
[2024-02-07 14:00] VITALS: BP 157/89; PULSE 75; RESP 18; TEMP 36.8; O2SAT 98
[2024-02-07] MEDS: PREGABALIN (*CRX) 75 MG CAPSULE 150 MG PO (21:19)
[2024-02-07 21:54] VITALS: BP 155/98; PULSE 76; RESP 20; TEMP 36.7; O2SAT 91
[2024-02-08] VITALS (22 sets, daily range): BP systolic 129–159; BP diastolic 61–97; PULSE 64–70; RESP 14–18; TEMP 36.3–37; O2SAT 93–100
[2024-02-08 06:18] LABS: Basophils Absolute Auto 0.1 K/mm3 (0.0-0.1); Basophils Percent Auto 0.7 % (0.2-1.2); Eosinophils Absolute Auto 0.1 K/mm3 (0-0.3); Eosinophils Percent Auto 1.9 % (0-4.4); Hematocrit 33.6 % (42.0-52.0); Immature Granulocyte Absolute 0.02 K/mm3 (0.00-0.031); Immature Granulocyte Percent A 0.3 % (0-0.5); Lymphocytes Absolute Auto 1.53 K/mm3 (0.9-3.2); Lymphocytes Percent Auto 21.3 % (18.3-44.2); Mean Corpuscular HGB Conc 29.8 g/dl (32-36); Mean Corpuscular Hemoglobin 26.9 pg (26-34); Mean Corpuscular Volume 90.3 fl (80-100); Mean Platelet Volume 11.1 fl (7.4-10.4); Monocytes Absolute Auto 0.9 K/mm3 (0.1-0.6); Monocytes Percent Auto 12.8 % (2.6-8.5); Neutrophils Absolute Auto 4.5 K/mm3 (1.3-6.7); Platelet Count Result 203 k/mm3 (150-375); Red Blood Count 3.72 M/mm3 (4.6-6.20); Red Cell Distribution Width 20.1 % (11.5-14.5); White Blood Count 7.2 K/mm3 (4.5-10.0)
[2024-02-08 06:31] LABS: Alanine Aminotransferase 15 U/L (6-50); Albumin Level 3.6 g/dL (3.5-5.1); Alkaline Phosphatase 126 U/L (38-126); Anion Gap 12 mmol/L (4-12); Aspartate Amino Transferase 22 U/L (17-59); Bilirubin,Total 0.8 mg/dL (0.2-1.3); Blood Urea Nitrogen 36 mg/dL (9-20); Calcium 9.4 mg/dL (8.4-10.2); Carbon Dioxide 27 mmol/L (22-30); Chloride 99 mmol/L (98-107); Estimated CRCL calculation 13 ml/min; Estimated Glomerular Filt Rate 10; Glucose 91 mg/dL (65-110); Magnesium 2.5 mg/dL (1.6-2.3); Potassium 4.6 mmol/L (3.4-5.0); Sodium 138 mmol/L (137-145)
[2024-02-08 07:05] LABS: Hypochromasia 1+; Platelet Estimate Adequate (Adequate); Schistocytes None Seen
[2024-02-08] MEDS: LOSARTAN POTASSIUM 25 MG TABLET 50 MG PO (08:15)
[2024-02-08] MEDS: LACTULOSE 20 GM/30 ML UDC 10 GM PO ×2 (08:16→13:45)
[2024-02-08] MEDS: APIXABAN 5 MG TABLET PO (08:17)
[2024-02-08] MEDS: FAMOTIDINE 10 MG TABLET PO (08:18)
[2024-02-08] MEDS: CHOLECALCIFEROL 1,000 UNITS TABLET 2000 UNITS PO (08:20)
[2024-02-08] MEDS: ASPIRIN 81 MG CHEWABLE TABLET PO (08:20)
[2024-02-08] MEDS: guanFACINE HCL 1 MG TABLET PO (08:21)
[2024-02-08] MEDS: THIAMINE HCL 100 MG TABLET PO (08:22)
[2024-02-08] MEDS: SEVELAMER CARBONATE 800 MG TABLET 1600 MG PO ×2 (08:23→13:46)
[2024-02-08] MEDS: METOPROLOL SUCCINATE EXT REL 50 MG TABCR PO (08:23)
[2024-02-08] MEDS: VENLAFAXINE HCL 37.5 MG TABLET 112.5 MG PO (08:24)
[2024-02-08] MEDS: rifAXIMin 550 MG TABLET PO (08:24)
[2024-02-08] MEDS: PREGABALIN (*CRX) 75 MG CAPSULE PO (08:25)
--- NOTE | 2024-02-08 08:50 | PC.NURSE ---
To dialysis per hospital bed.
[2024-02-08] MEDS: EPOETIN ALFA-EPBX 10,000 UNITS/ML VIAL 10000 UNITS IV PUSH (11:08)
--- NOTE | 2024-02-08 11:53 | PM.PNNEP ---
Progress Note: A&P Assessment and Plan (1) End stage renal disease: Code(s): N18.6 - End stage renal disease Status: Chronic Assessment and Plan: HD today continue T/T/S schedule while hospitalized follow electrolytes, volume status, and clearance (2) Hyperkalemia: Code(s): E87.5 - Hyperkalemia Status: Acute Assessment and Plan: resolved as noted by admission labs corrected with medical management and dialysis/[employer] follow trend of K+ (3) Abdominal ascites: Qualifiers: Ascites type: other type Qualified Code(s): R18.8 - Other ascites Code(s): R18.8 - Other ascites Status: Acute Assessment and Plan: as noted by exam and imaging studies s/p paracentesis with improvement in symptoms fluid studies results noted (4) Anemia: Qualifiers: Anemia type: due to chronic kidney disease Chronic kidney disease stage: stage 5, not on chronic dialysis Qualified Code(s): N18.5 - Chronic kidney disease, stage 5; D63.1 - Anemia in chronic kidney disease Code(s): D64.9 - Anemia, unspecified Status: Chronic Assessment and Plan: due to ESRD and acute illness Epogen with dialysis follow trend of H/H (5) Hypertension: Code(s): I10 - Essential (primary) hypertension Status: Chronic Assessment and Plan: at baseline, his BP is quite erratic resume home medications follow trend of hemodynamics (6) Diabetes: Code(s): E11.9 - Type 2 diabetes mellitus without complications Status: Chronic Assessment and Plan: follow accuchecks glycemic control per hospitalists Will continue to follow. Subjective Date/time seen: 02/08/24 11:53 Interval history: Follow-up for end stage renal disease on hemodialysis. Tolerating dialysis treatment at the time of my visit (seen on HD at 11:40AM); no apparent distress voiced; no issues overnight or earlier this morning; overall, he states that feels significantly better in comparison to admission; no acute distress noted. Exam Narrative: General: WD/WN male in NAD Heart: normal S1 and S2; no rub Lungs: cleat to auscultation Abdomen: soft, nontender, nondistended, positive bowel sounds Extremities: no cyanosis or clubbing; s/p bilateral AKA Skin: no rash or nodules Objective Data Vital Signs Vital Signs: Vital Signs Temp Pulse Resp BP Pulse Ox O2 Del Method FiO2 02/08/24 11:45 66 151/94 H 02/08/24 11:30 66 136/82 02/08/24 11:15 69 145/83 H 02/08/24 11:00 68 142/90 H 02/08/24 10:45 69 154/76 H 02/08/24 10:30 70 147/90 H 02/08/24 10:15 64 147/91 H 02/08/24 10:00 66 143/81 H 02/08/24 09:45 65 151/91 H 02/08/24 09:30 65 153/96 H 02/08/24 09:18 65 159/97 H 02/08/24 09:06 97.9 F 64 18 153/86 H 02/08/24 08:00 Room Air 02/08/24 08:32 93 Room Air 21 02/08/24 08:23 67 02/08/24 06:00 97.5 F L 67 18 136/97 H 100 02/07/24 21:54 98.1 F 76 20 155/98 H 91 02/07/24 14:00 98.3 F 75 18 157/89 H 98 Intake/Output Intake/Output: Intake & Output 02/05/24 02/06/24 02/07/24 02/08/24 23:59 23:59 23:59 23:59 Intake Total 170 1680 830 218 Output Total 4200 6100 Balance -4030 -4420 830 218 Meds/Results Medications: Active Medications Generic Name Dose Route Start Last Admin Trade Name Yuliet PRN Reason Stop Dose Admin Apixaban 5 mg 02/05/24 21:00 02/08/24 08:17 Apixaban 5 Mg Tablet PO 5 mg Q12HR [facility] Administration Aspirin 81 mg 02/06/24 08:00 02/08/24 08:20 Aspirin 81 Mg Chewable Tablet PO 81 mg DAILY@0800 [facility] Administration Calcitriol 0.25 mcg 02/05/24 18:00 02/07/24 17:00 Calcitriol 0.25 Mcg Capsule PO Not Given [email or web address] ALEX Epoetin Johnnie-epbx 10,000 units 02/08/24 20:00 02/08/24 11:08 Epoetin Johnnie-Epbx 10,000 Units/Ml V
--- NOTE | 2024-02-08 13:25 | PC.NURSE ---
Returned from Dialysis per hospital bed.
--- NOTE | 2024-02-08 15:43 | PM.DS ---
DS: Admitting Diagnosis Discharge Date 02/08/24 Admitting Diagnosis End stage renal disease elevated troponin hypertension DS: Discharge Diagnosis Discharge Diagnosis (1) End stage renal disease: Code(s): N18.6 - End stage renal disease Status: Chronic (2) Elevated troponin: Code(s): R79.89 - Other specified abnormal findings of blood chemistry Status: Acute (3) Essential hypertension: Code(s): I10 - Essential (primary) hypertension Status: Acute DS: Summary Hospital Course Reason for hospitalization: end stage renal disease elevated troponin [facility] Course: 58 year old male with past medical history of bicuspid aortic valve status post AVR , coronary disease status post CABG times SVG to OM in August 14, end-stage renal disease on hemodialysis Tuesdays, hypertension, hyperlipidemia, diabetes, sleep apnea ,peripheral artery disease, history of stroke, cirrhosis of the liver with ascites and congestive heart failure with reduced ejection fraction down to 25% presents to the hospital for shortness of breath after an incomplete dialysis session. On admission patient was short of breath likely due to volume overload. A chest/abdomen/pelvis CTA was obtained and showed moderate to large amount of abdominal ascites with possible early/mild cirrhotic change of the liver. A paracentesis was obtained and transudative. Patient received dialysis 02/04, 02/05, and 02/07. On discharge he denies shortness of breath, chest pain, palpitations, nausea/vomiting. Patient discharged home in a stable condition. He will follow up with his PCP and nephrology in 1 week. Status at Discharge Functional status at discharge: wheelchair bound Time Spent with Patient Time attestation: Total time spent providing and/or coordinating discharge services: Time spent: Greater than 30 minutes Exam Narrative: AF HR 75 RR 18 SpO2 98 BP 157/89 General: male in no acute respiratory distress who is nontoxic appearing, lying semi recumbent in bed. HEENT: Normocephalic. Atraumatic. Pupils equal round reactive to light. Extraocular movement intact. Sclera clear and anicteric. No facial asymmetry. Chest: Lungs are clear to auscultation bilaterally. No wheezes or crackles. CV: Heart was regular rate and rhythm. S1/S2. No murmurs, gallops, or rubs. Abd: Abdomen was soft. Nontender. Nondistended. Positive bowel sounds. No organomegaly or masses. Ext: No clubbing, cyanosis, or edema. Bilateral AKA. Neuro: Patient is alert and oriented x4. Speech is clear. Psych: Normal nood and affect. Patient is pleasant and cooperative. Skin: Warm and dry. No rashes noted. DS: Data Data Completed and Pending Completed studies during hospitalization: Paracentesis US Chest/abdomen/pelvis CTA Chest XR Labs on day of discharge: Labs from last 24 hours 02/08/24 05:54 WBC 7.2 RBC 3.72 L Hgb 10.0 L Hct 33.6 L MCV 90.3 MCH 26.9 MCHC 29.8 L RDW 20.1 H Plt Count 203 MPV 11.1 H Immature Gran % (Auto) 0.3 Neut % (Auto) 63.0 Lymph % (Auto) 21.3 Harlan % (Auto) 12.8 H Eos % (Auto) 1.9 Baso % (Auto) 0.7 Lymph # (Auto) 1.53 Harlan # (Auto) 0.9 H Eos # (Auto) 0.1 Baso # (Auto) 0.1 Abs Immat Gran (auto) 0.02 Absolute Neuts (auto) 4.5 Absolute Nucleated RBC 0.000 Nucleated RBC % 0.0 Platelet Estimate Adequate Hypochromasia 1+ Schistocytes None seen Sodium 138 Potassium 4.6 Chloride 99 Carbon Dioxide 27 Anion Gap 12 BUN 36 H Creatinine 5.90 H Estim Creat Clear Calc 13 Estimated GFR 10 L Glucose 91 Calcium 9.4 Magnesium 2.5 H Total Bilirubin 0.8 AST 22 ALT 15 Alkaline Phosphatase 126 Total Protein 7.0 Albumin 3.6 Preliminary micro results at discharge 02/06/24 14:56 Anaerobic Culture - Preliminary Ascites Fluid Aerobic Culture - Preliminary 02/05/24 20:55 Blood Culture - Preliminary Blood 02/05/24 20:45 Blood Culture - Preliminary Bloo
[2024-02-11 20:53] LABS: Albumin Peritoneal Fluid 2.1 g/dL; Amylase Peritoneal Fluid 48 U/L; Glucose Peritoneal Fluid 83 mg/dL; Lipase Peritoneal Fluid 32 U/L (<10); Total Protein Peritoneal Fluid 3.6 g/dL
[2024-02-23 20:24] LABS: LDH Peritoneal Fluid 362 U/L (<63)
== END 2024-02-08 15:08 | disposition home health service (06) | DRG 291 ==
LOC: ANHED 07:04 → ANHIMU 13:18 → ANH3MEDSUR 02-08 14:03 → ANHIMU 02-09 11:34
PROVIDERS: Emergency Medicine; Internal Medicine; Internal Medicine Nephrology; Nurse Practitioner; Admitting Provider Internal Medicine; Emergency Provider Student in an Organized Health Care Education/Training Program; PCP Family Medicine; Visit Provider Family Medicine
DX: I13.2 Hypertensive heart and chronic kidney disease with heart failure and with stage 5 chronic kidney disease, or end stage renal disease (principal); I50.43 Acute on chronic combined systolic (congestive) and diastolic (congestive) heart failure; N18.6 End stage renal disease; R18.8 Other ascites; I69.322 Dysarthria following cerebral infarction; Z99.2 Dependence on renal dialysis; E11.22 Type 2 diabetes mellitus with diabetic chronic kidney disease; E11.51 Type 2 diabetes mellitus with diabetic peripheral angiopathy without gangrene; I25.10 Atherosclerotic heart disease of native coronary artery without angina pectoris; D63.1 Anemia in chronic kidney disease; K21.9 Gastro-esophageal reflux disease without esophagitis; E78.2 Mixed hyperlipidemia; E11.40 Type 2 diabetes mellitus with diabetic neuropathy, unspecified; E11.319 Type 2 diabetes mellitus with unspecified diabetic retinopathy without macular edema; K74.60 Unspecified cirrhosis of liver; K72.90 Hepatic failure, unspecified without coma; Z95.1 Presence of aortocoronary bypass graft; Z79.01 Long term (current) use of anticoagulants; Z79.82 Long term (current) use of aspirin; Z95.4 Presence of other heart-valve replacement; Z89.612 Acquired absence of left leg above knee; Z89.611 Acquired absence of right leg above knee; Z86.718 Personal history of other venous thrombosis and embolism; Z66 Do not resuscitate; Z86.16 Personal history of COVID-19; Z87.891 Personal history of nicotine dependence
CPT/HCPCS: 36415; 49083; 71046; 71275; 74177; 80053; 82042; 82150; 82945; 82948; 83615; 83690; 83735; 84145; 84157; 84478; 84484; 85025; 85610; 85730; 86140; 86706; 87040; 87070; 87075; 87205; 87340; 87637; 87641; 89051; 93005; 94640; 96361; 96374; 96375; 99285; A9270; G0257; J0360; J0612; J1644; J1815; J7030; Q5105; Q9967

== ENCOUNTER 2024-02-15 14:46 | Inpatient (IN) | payer MEDICARE, OTHER, SELFPAY ==
--- NOTE | ~2024-02-15 | US_ITS ---
EXAMINATION: US paracentesis abd w/image DATE: 02/16/2024 14:38 INDICATION: Ascites. TECHNIQUE: The procedure and its risks, benefits, and alternatives were discussed with the patient. P otential risks discussed included bleeding and infection. The skin was prepped and draped in sterile fashion. 1% lidocaine was used for local anesthesia. Under ultrasound guidance, a 5 Fr catheter with trochar was advanced into the ascites in the left lower quadrant. Fluid was aspirated. The catheter w as removed, and a dressing was applied. There were no immediate complications. FINDINGS: Ultrasound images demonstrate ascites and the catheter within the fluid. IMPRESSION: 1. Successful ultrasound-guided paracentesis yielding 2900 mL of yellow fluid. Reviewed, dictated and finalized at location A.
--- NOTE | ~2024-02-15 | XR_ITS ---
EXAMINATION: XR chest 1V Exam Date/Time: 02/17/2024 13:38 CDT HISTORY: CHF Comparison: 02/15/2024. RESULT: Lines, tubes, and devices: Intact sternotomy wires. Cardiac valve replacement. Right IJ dialysis cat heter terminating at the cavoatrial junction. Lungs and pleura: Clear. Granulomatous calcifications. Cardiomediastinal silhouette: Stable. Other: No acute osseous or upper abdominal finding. Old healed left rib fractures. IMPRESSION: No acute cardiopulmonary process. Reviewed, dictated and finalized at location K.
--- NOTE | ~2024-02-15 | CT_ITS ---
EXAMINATION: CT abdomen pelvis wo con DATE: 02/15/2024 16:48 INDICATION: Abdominal distention. Vomiting. TECHNIQUE: Computed tomography (CT) of the abdomen and pelvis was performed without intravenous contr ast. Automated exposure control and iterative reconstruction technique were employed. The dose-length product was 696.03 mGy-cm. COMPARISON: CT abdomen and pelvis 02/05/2024 FINDINGS: The visualized portions of the lung bases demonstrate minimal atelectasis. Calcified right hilar lymph nodes are consistent with old granulomatous disease. There is a small right pleural effus ion. Cardiomegaly is noted. There are coronary artery calcifications. There are changes of aortic quinton ve replacement. No pericardial effusion. The liver and spleen are normal. The gallbladder is normal i n size. The pancreas, adrenal glands, and kidneys are normal. There are no dilated loops of bowel. Th e appendix is not visualized. There is a large volume of ascites. There is edema of the intra-abdomin al fat and body wall fat. There are no pathologically enlarged lymph nodes. There is mild periportal lymphadenopathy, likely reactive. There is a right inguinal hernia containing fat. There is mild thor acic and lumbar spondylosis. IMPRESSION: 1. Large volume of ascites. 2. Small right pleural effusion. Reviewed, dictated and finalized at location E.
--- NOTE | ~2024-02-15 | US_ITS ---
US paracentesis abd w/image DATE: 02/17/2024 14:01 INDICATION: Ascites; diagnostic paracentesis TECHNIQUE: The purpose of the procedure, technique and findings and constipation discussed with the p ab. The patient verbalized understanding and gave consent. The skin at the anterolateral aspect of the left lower quadrant of the abdomen is compared with steri le Betadine solution. Sterile drape was applied. 1% lidocaine local anesthetic was administered to th e skin and underlying subcutaneous tissues. Using ultrasound guidance, a single stick needle/catheter was introduced into the peritoneal cavity. Approximately 5 CC of clear yellowish ascites was withdrawn into a syringe. Approximately 500 CC was subsequently drained into a Vacutainer bottle. IMPRESSION: Ultrasound guided paracentesis procedure yielding approximately 500 CC of clear yellow as cites Reviewed, dictated and finalized at Location A. Reviewed, dictated and finalized at location A. IMPRESSION: Ultrasound guided paracentesis procedure yielding approximately 500 CC of clear yellow ascites
--- NOTE | ~2024-02-15 | XR_ITS ---
EXAMINATION: XR chest 2V DATE: 02/15/2024 16:29 INDICATION: Sepsis. TECHNIQUE: Frontal and lateral views of the chest were obtained on 3 radiographs. COMPARISON: Chest 2 views 02/05/2024, chest CT 02/05/24 FINDINGS: A calcified right lung nodule and calcified right hilar lymph nodes are consistent with old granulomatous disease. No pleural effusion or pneumothorax. Cardiomegaly is noted. There are changes of aortic valve replacement. There are old healed left rib fractures. A right internal jugular centr al venous catheter is seen with tip at the superior cavoatrial junction. IMPRESSION: 1. Cardiomegaly. Reviewed, dictated and finalized at location E. IMPRESSION: 1. Cardiomegaly.
--- NOTE | 2024-02-15 10:40 | ECG_ITS ---
SEE SCANNED COPY FOR CONFIRMED REPORT MTDD
[2024-02-15 14:51] VITALS: BP 122/74; PULSE 80; RESP 18; TEMP 36.4; O2SAT 100
--- NOTE | 2024-02-15 15:02 | ED.GENADULT ---
HPI - General Adult General Chief complaint: Nausea/Vomiting/Diarrhea <Emanuel Odom PA-C - Last Filed: 02/15/24 15:04> Stated complaint: im sick <Emanuel Odom PA-C - Last Filed: 02/15/24 15:04> Time Seen by Provider: 02/15/24 15:00 <Emanuel Odom PA-C - Last Filed: 02/15/24 15:04> Focused HPI: This is a 58-year-old male with PMH of liver failure, kidney failure, heart failure presents to the ED for chief complaint abdominal distension and vomiting beginning last night and continued today. Patient reports 6 or 7 episodes of vomiting. Reports even more episodes of diarrhea. States he was here last week for abdominal ascites with that had to get drained. He reports that he feels distended and may be having a similar episode. Denies fevers, chills, chest pain or shortness of breath. GENERAL: Well-appearing, well-nourished, and in no acute distress. HEAD: Normocephalic, atraumatic. CHEST: Clear to auscultation. No respiratory distress. HEART: Regular rate and rhythm. ABD: Protuberant abdomen. Minimal tenderness throughout the abdomen. NEURO: Alert and oriented x3. Patient screened in triage and initial orders placed. Additional care and disposition to be based upon diagnostic testing and treatment. <Emanuel Odom PA-C - Last Filed: 02/15/24 15:04> History of Present Illness HPI narrative: Patient is a 58-year-old male with significant medical history including a CVA, CKD on HD, heart failure, hypertension, liver failure, GERD, HLD, here due to not feeling well. He was recently hospitalized, seen by myself in this ER, was complaining of some similar symptoms at that time. He notes that after his recent discharge she had been feeling quite well, started feeling unwell this morning. notes that he has had multiple episodes of vomiting. Patient endorses abdominal distension which has been progressively worsening since his last admission. Denies significant abdominal pain. He additionally notes he has had some diarrhea this morning. He was supposed to go to hemodialysis does morning however he missed this due to not feeling well. He is a Monday, , Monday hemodialysis patient. He did run a full run on Monday. He denies any chest pain or shortness of breath. He denies any fever or chills. <Katherin Ayala MD - Last Filed: 02/15/24 23:02> Related Data Home medications: Home Medications Medication Instructions Recorded Confirmed sevelamer carbonate 800 mg tablet 1,600 mg PO TIDWM 11/24/22 02/15/24 (Renvela) pregabalin 75 mg capsule 75 mg PO DAILY 07/11/23 02/15/24 calcitriol 0.25 mcg capsule 0.25 mcg PO MOWEFR 09/19/23 02/15/24 cholecalciferol (vitamin D3) 50 2,000 unit PO DAILY 09/19/23 02/15/24 mcg (2,000 unit) tablet famotidine 20 mg tablet 10 mg PO DAILY 09/19/23 02/15/24 apixaban 5 mg tablet (Eliquis) 5 mg PO BID 01/17/24 02/15/24 aspirin 81 mg tablet 81 mg PO DAILY 01/17/24 02/15/24 guanfacine 1 mg tablet,extended 1 mg PO DAILY 01/17/24 02/15/24 release 24 hr lactulose 10 gram/15 mL oral 10 g PO TID 01/17/24 02/15/24 solution losartan 25 mg tablet 50 mg PO DAILY 01/17/24 02/15/24 metoprolol succinate 50 mg 50 mg PO DAILY 01/17/24 02/15/24 tablet,extended release 24 hr rifaximin 550 mg tablet 550 mg PO Q12H 01/17/24 02/15/24 thiamine HCl (vitamin B1) 100 mg 100 mg PO DAILY 01/17/24 02/15/24 tablet pregabalin 75 mg capsule 150 mg PO HS 02/05/24 02/15/24 <Emanuel Odom PA-C - Last Filed: 02/15/24 15:04> Allergies/adverse reactions: Allergies Allergy/AdvReac Type Severity Reaction Status Date / Time No Known Allergies Allergy Verified 02/15/24 14:46 <Emanuel Odom PA-C - Last Filed: 02/15/24 15:04> Review of Systems Review of Systems: All systems reviewed & are unremarkable except as noted in HPI and below <Katherin Ayala MD - Last Filed: 02/15/24 23:02> [facility] Past Medical History Medical History: Medical History (Reviewed 01/21
[2024-02-15] MEDS: ONDANSETRON INJ 4 MG/2 ML VIAL IV PUSH (15:19)
[2024-02-15 15:20] LABS: Basophils Absolute Auto 0.1 K/mm3 (0.0-0.1); Eosinophils Percent Auto 0.3 % (0-4.4); Hematocrit 42.6 % (42.0-52.0); Hemoglobin 12.8 g/dL (14.0-18.0); Immature Granulocyte Absolute 0.03 K/mm3 (0.00-0.031); Immature Granulocyte Percent A 0.4 % (0-0.5); Lymphocytes Absolute Auto 1.22 K/mm3 (0.9-3.2); Lymphocytes Percent Auto 15.8 % (18.3-44.2); Mean Corpuscular Hemoglobin 27.4 pg (26-34); Mean Platelet Volume 10.7 fl (7.4-10.4); Monocytes Absolute Auto 0.8 K/mm3 (0.1-0.6); Neutrophils Absolute Auto 5.6 K/mm3 (1.3-6.7); Neutrophils Percent Auto 72.5 % (45.5-73.1); Platelet Count Result 187 k/mm3 (150-375); Red Blood Count 4.68 M/mm3 (4.6-6.20); Red Cell Distribution Width 21.7 % (11.5-14.5); White Blood Count 7.7 K/mm3 (4.5-10.0)
[2024-02-15 15:36] LABS: Alanine Aminotransferase 22 U/L (6-50); Albumin Level 4.6 g/dL (3.5-5.1); Alkaline Phosphatase 138 U/L (38-126); Anion Gap 21 mmol/L (4-12); Aspartate Amino Transferase 25 U/L (17-59); Bilirubin,Total 1.1 mg/dL (0.2-1.3); Blood Urea Nitrogen 61 mg/dL (9-20); Calcium 9.8 mg/dL (8.4-10.2); Carbon Dioxide 13 mmol/L (22-30); Chloride 103 mmol/L (98-107); Estimated CRCL calculation 9 ml/min; Estimated Glomerular Filt Rate 7; Glucose 104 mg/dL (65-110); Lactic Acid Reflex 4.4 mmol/L (0.7-2.0); Lipase 220 U/L (23-300); Potassium 7.3 mmol/L (3.4-5.0); Sodium 137 mmol/L (137-145)
--- NOTE | 2024-02-15 17:25 | PC.NURSE ---
1725-PATIENT C/O PAIN TO RIGHT HAND IV SITE WHEN INITIATED PUSHING OF IV BICARB. POSITIVE BLOOD RETURN FROM IV SITE. HOWEVER, DUE TO C/O PAIN AT SITE, DISCONTINUED PUSHING OF IV BICARB. ATTEMPTING PLACEMENT OF ANTICUBITAL IV LINE VIA ULTRASOUND.
[2024-02-15 17:30] VITALS: PULSE 73; RESP 18
[2024-02-15] MEDS: ALBUTEROL SULFATE NEB 2.5 MG/3 ML INH 10 MG INHALATION (17:30)
[2024-02-15] MEDS: SODIUM BICARBONATE 8.4% 50 MEQ/50 ML SYRINGE IV PUSH (17:34)
[2024-02-15] MEDS: DEXTROSE 50% 25 GM/50 ML SYRINGE IV PUSH (17:38)
[2024-02-15] MEDS: INSULIN HUMAN REGULAR (*BKC) 100 UNITS/ML 10 UNITS IV PUSH (17:46)
[2024-02-15 17:58] VITALS: PULSE 76; RESP 18
[2024-02-15] MEDS: CALCIUM GLUCONATE 1,000 MG/10 ML VIAL 1000 MG IV PUSH (18:02)
[2024-02-15] MEDS: LACTATED RINGERS 1,000 ML 999 ML IV CONT (18:02)
[2024-02-15 18:18] LABS: Reflex Lactic Acid Yes or No Add Lactic
[2024-02-15 18:35] LABS: INR 1.6; Partial Thromboplastin Time 34.3 Seconds (22.3-36.8); Prothrombin Time 20.2 Seconds (11.1-14.7)
[2024-02-15 18:36] LABS: CRP 4.1 mg/dL (<1.0)
[2024-02-15 18:48] LABS: Influenza A QL RT-PCR Negative (Negative); Influenza B QL RT-PCR Negative (Negative); RSV RNA, RT-PCR Negative (Negative); SARS-CoV-2 RNA PCR Positive (Negative)
[2024-02-15] MEDS: SODIUM ZIRCONIUM CYCLOSILICATE 10 GM POWD.PACK PO (19:30)
[2024-02-15 20:26] LABS: Anion Gap 17 mmol/L (4-12); Blood Urea Nitrogen 66 mg/dL (9-20); Calcium 9.6 mg/dL (8.4-10.2); Carbon Dioxide 16 mmol/L (22-30); Chloride 106 mmol/L (98-107); Estimated CRCL calculation 10 ml/min; Estimated Glomerular Filt Rate 7; Glucose 58 mg/dL (65-110); Lactic Acid 5.1 mmol/L (0.7-2.0); Potassium 5.8 mmol/L (3.4-5.0); Sodium 139 mmol/L (137-145)
[2024-02-15] MEDS: SODIUM CHLORIDE 0.9% IV 1,000 ML 50 ML IV CONT (21:21)
[2024-02-15 21:24] VITALS: BP 156/118; PULSE 76; RESP 17; O2SAT 100
[2024-02-15 21:26] LABS: Glucose Point of Care 73 mg/dl (65-105)
--- NOTE | 2024-02-15 22:24 | PM.IMHP ---
H&P: HPI History of Present Illness Date/Time: 02/15/24 22:24 Chief Complaint: abdominal distension Narrative: This is a 58-year-old male with past medical history significant for end-stage renal disease on hemodialysis, peripheral vascular disease status post bilateral [id number] amputations, type diabetes mellitus, combined systolic and diastolic congestive heart failure, hypertension. Patient presents to the emergency room due to abdominal distension, abdominal pain, found to have a potassium of 7.5. Patient denies any fevers, rigors, chills, nausea, vomiting, cough, sputum production no abdominal tenderness. Preliminary workup repeat potassium showed an elevated potassium again which was treated in the emergency room. CT of abdomen and pelvis was significant for large volume ascites. EXAMINATION: XR chest 2V DATE: 02/15/2024 16:29 INDICATION: Sepsis. TECHNIQUE: Frontal and lateral views of the chest were obtained on 3 radiographs. COMPARISON: Chest 2 views 02/05/2024, chest CT 02/05/24 FINDINGS: A calcified right lung nodule and calcified right hilar lymph nodes are consistent with old granulomatous disease. No pleural effusion or pneumothorax. Cardiomegaly is noted. There are changes of aortic valve replacement. There are old healed left rib fractures. A right internal jugular central venous catheter is seen with tip at the superior cavoatrial junction. IMPRESSION: 1. Cardiomegaly. EXAMINATION: CT abdomen pelvis wo con DATE: 02/15/2024 16:48 INDICATION: Abdominal distention. Vomiting. TECHNIQUE: Computed tomography (CT) of the abdomen and pelvis was performed without intravenous contrast. Automated exposure control and iterative reconstruction technique were employed. The dose-length product was 696.03 mGy-cm. COMPARISON: CT abdomen and pelvis 02/05/2024 FINDINGS: The visualized portions of the lung bases demonstrate minimal atelectasis. Calcified right hilar lymph nodes are consistent with old granulomatous disease. There is a small right pleural effusion. Cardiomegaly is noted. There are coronary artery calcifications. There are changes of aortic valve replacement. No pericardial effusion. The liver and spleen are normal. The gallbladder is normal in size. The pancreas, adrenal glands, and kidneys are normal. There are no dilated loops of bowel. The appendix is not visualized. There is a large volume of ascites. There is edema of the intra-abdominal fat and body wall fat. There are no pathologically enlarged lymph nodes. There is mild periportal lymphadenopathy, likely reactive. There is a right inguinal hernia containing fat. There is mild thoracic and lumbar spondylosis. IMPRESSION: 1. Large volume of ascites. 2. Small right pleural effusion.EXAMINATION: CT abdomen pelvis wo con DATE: 02/15/2024 16:48 INDICATION: Abdominal distention. Vomiting. TECHNIQUE: Computed tomography (CT) of the abdomen and pelvis was performed without intravenous contrast. Automated exposure control and iterative reconstruction technique were employed. The dose-length product was 696.03 mGy-cm. COMPARISON: CT abdomen and pelvis 02/05/2024 FINDINGS: The visualized portions of the lung bases demonstrate minimal atelectasis. Calcified right hilar lymph nodes are consistent with old granulomatous disease. There is a small right pleural effusion. Cardiomegaly is noted. There are coronary artery calcifications. There are changes of aortic valve replacement. No pericardial effusion. The liver and spleen are normal. The gallbladder is normal in size. The pancreas, adrenal glands, and kidneys are normal. There are no dilated loops of bowel. The appendix is not visualized. There is a large volume of ascites. There is edema of the intra-abdominal fat and body wall fat. There are no pathologically enlarged lymph nodes. There is mild periportal lymphadenopathy, likely reactive. There is a right inguinal hernia containing fat. There is mild thoracic and l
[2024-02-15 22:30] VITALS: BP 163/102; PULSE 75; RESP 22; TEMP 36.5; O2SAT 93; BMI 65.0
[2024-02-15 22:59] VITALS: BP 163/102; PULSE 75; RESP 22; TEMP 36.5; O2SAT 93; BMI 65.0
--- NOTE | 2024-02-15 23:29 | ADMGEN ---
This patient, Pankaj Bautista, was admitted to IMU Room 231-01. Patient/family oriented to hospital policies and general routines including ID bracelet, bed and alarms, visiting hours, pain management, procedures, bathroom and other care routines, personal items, smoking policy, room service/diet, and visiting hours. Information on how to activate the Rapid Response Team has been discussed. Patient/Family are encouraged to report perceived risks to care and to ask questions if they do not understand what they are told or what they should do.
[2024-02-16] VITALS (35 sets, daily range): BP systolic 141–184; BP diastolic 77–118; PULSE 67–77; RESP 12–24; TEMP 35.7–37.7; O2SAT 99–100
[2024-02-16] MEDS: SODIUM ZIRCONIUM CYCLOSILICATE 5 GM POWD.PACK PO (00:05)
[2024-02-16 00:31] LABS: Glucose Point of Care 92 mg/dl (65-105)
[2024-02-16] MEDS: VENLAFAXINE HCL 37.5 MG TABLET 112.5 MG PO ×2 (01:55→17:20)
--- NOTE | 2024-02-16 02:48 | ECG_ITS ---
SEE SCANNED COPY FOR CONFIRMED REPORT MTDD
[2024-02-16] MEDS: MORPHINE SULFATE (*CRX) 2 MG/ML INJ IV PUSH (03:36)
[2024-02-16] MEDS: METOPROLOL SUCCINATE EXT REL 50 MG TABCR PO (03:45)
[2024-02-16] MEDS: LOSARTAN POTASSIUM 25 MG TABLET 50 MG PO (03:45)
[2024-02-16 04:38] LABS: Basophils Absolute Auto 0.1 K/mm3 (0.0-0.1); Eosinophils Absolute Auto 0.1 K/mm3 (0-0.3); Eosinophils Percent Auto 0.6 % (0-4.4); Hematocrit 38.6 % (42.0-52.0); Hemoglobin 11.4 g/dL (14.0-18.0); Immature Granulocyte Absolute 0.03 K/mm3 (0.00-0.031); Immature Granulocyte Percent A 0.3 % (0-0.5); Lymphocytes Absolute Auto 2.09 K/mm3 (0.9-3.2); Lymphocytes Percent Auto 23.7 % (18.3-44.2); Mean Corpuscular HGB Conc 29.5 g/dl (32-36); Mean Corpuscular Hemoglobin 27.3 pg (26-34); Mean Corpuscular Volume 92.3 fl (80-100); Mean Platelet Volume 11.6 fl (7.4-10.4); Monocytes Percent Auto 11.6 % (2.6-8.5); Neutrophils Absolute Auto 5.5 K/mm3 (1.3-6.7); Neutrophils Percent Auto 62.8 % (45.5-73.1); Platelet Count Result 188 k/mm3 (150-375); Red Blood Count 4.18 M/mm3 (4.6-6.20); Red Cell Distribution Width 21.2 % (11.5-14.5); White Blood Count 8.8 K/mm3 (4.5-10.0)
[2024-02-16 04:58] LABS: Alanine Aminotransferase 21 U/L (6-50); Albumin Level 4.3 g/dL (3.5-5.1); Alkaline Phosphatase 122 U/L (38-126); Anion Gap 18 mmol/L (4-12); Aspartate Amino Transferase 25 U/L (17-59); Bilirubin,Total 1.2 mg/dL (0.2-1.3); Blood Urea Nitrogen 71 mg/dL (9-20); Calcium 9.6 mg/dL (8.4-10.2); Carbon Dioxide 14 mmol/L (22-30); Chloride 104 mmol/L (98-107); Estimated Glomerular Filt Rate 6; Glucose 76 mg/dL (65-110); Magnesium 2.6 mg/dL (1.6-2.3); Potassium 7.5 mmol/L (3.4-5.0); Sodium 136 mmol/L (137-145)
[2024-02-16 05:21] LABS: Hypochromasia 1+; Platelet Estimate Adequate (Adequate)
[2024-02-16 05:22] LABS: Burr Cells 1+; Ovalocytes 1+; Schistocytes None Seen
[2024-02-16 05:45] LABS: Phosphorus 13.1 mg/dL (2.5-4.5)
[2024-02-16] MEDS: INSULIN HUMAN REGULAR (*BKC) 100 UNITS/ML 10 UNITS IV PUSH (05:50)
[2024-02-16] MEDS: DEXTROSE 50% 25 GM/50 ML SYRINGE IV PUSH (05:50)
[2024-02-16 06:12] LABS: Glucose Point of Care 149 mg/dl (65-105)
[2024-02-16] MEDS: CALCIUM CHLOR 1,000MG/100ML NS 1,000 MG/100 ML BAG 100 MG IVPB (07:45)
--- NOTE | 2024-02-16 08:15 | PC.NURSE ---
Pt has a blood sugar of 75 and is NPO. Called Dr. Mcmillan. Received order for a 500 mL bag of D10 @ 100/hr. Will continue to monitor BS.
[2024-02-16 08:24] LABS: Glucose Point of Care 75 mg/dl (65-105)
[2024-02-16] MEDS: DEXTROSE 10% 500 ML 100 ML IV CONT ×2 (09:00→15:50)
--- NOTE | 2024-02-16 09:20 | PM.CNNEP ---
Assessment and Plan Assessment and plan (1) End stage renal disease: Code(s): N18.6 - End stage renal disease Status: Chronic Assessment and Plan: HD today likely HD tomorrow to resume outpatient T/T/S schedule while hospitalized follow electrolytes, volume status, and clearance (2) Hyperkalemia: Code(s): E87.5 - Hyperkalemia Status: Acute Assessment and Plan: as noted by admission labs s/p medical therapy dialysis should correct further follow trend of K+ (3) COVID: Code(s): U07.1 - COVID-19 Status: Acute Assessment and Plan: as noted by testing in ER however, no shortness of breath or hypoxia CXR is clear respiratory isolation continue supportive therapy (4) Abdominal ascites: Qualifiers: Ascites type: other type Qualified Code(s): R18.8 - Other ascites Code(s): R18.8 - Other ascites Status: Acute Assessment and Plan: as noted by exam and imaging studies paracentesis ordered follow-up on fluid studies (5) Anemia: Qualifiers: Anemia type: due to chronic kidney disease Chronic kidney disease stage: stage 5, not on chronic dialysis Qualified Code(s): N18.5 - Chronic kidney disease, stage 5; D63.1 - Anemia in chronic kidney disease Code(s): D64.9 - Anemia, unspecified Status: Chronic Assessment and Plan: due to ESRD and acute illness Dpogen with dialysis follow trend of H/H (6) Hypertension: Code(s): I10 - Essential (primary) hypertension Status: Chronic Assessment and Plan: at baseline, his BP is quite erratic resume home medications follow trend of hemodynamics (7) Diabetes: Code(s): E11.9 - Type 2 diabetes mellitus without complications Status: Chronic Assessment and Plan: follow accuchecks glycemic control per hospitalistis I will continue follow the patient with you while he remains hospitalized and make further recommendations as needed. Thank you for allowing me to participate in the care of this patient. History of Present Illness Reason for Consult Consult date: 02/16/24 Reason for consult: end stage renal disease and hyperkalemia Chief Complaint Chief complaint: Hyperkalemia/Missed HD/COVID/Elevated Lactate History of Present Illness Narrative: The patient is a 58-year-old male with an extensive past medical history as outlined below who presented to [facility] Emergency room due to not feeling well. It should be noted the patient was recently hospitalized and discharged a couple weeks ago for similar symptoms. He reports following his recent discharge, he had been feeling reasonably well up until the morning of admission. He apparently has had multiple episodes of vomiting in conjunction with worsening abdominal distention since his last hospitalization. He denies any abdominal pain but apparently reports some episodes of diarrhea on the day of admission as well. He denies any chest pain, shortness of breath, fevers, chills, palpitations, lightheadedness, or dizziness. He missed his scheduled dialysis yesterday due to these symptoms when he came to the ER yesterday for further assessment. Workup and evaluation emergency room demonstrated the patient to be in no acute distress with stable vital signs. Routine blood test demonstrated a normal white blood cell count, anemia of chronic kidney disease, and a chemistry that was significant for S severe hyperkalemia with a potassium of 7.3 and associated elevated BUN and creatinine consistent with his known history of end-stage renal disease. His lactic acid levels also elevated 4.4. His exam was significant for abdominal distention but no tenderness to palpation. He received medical management for his hyperkalemia in the form of insulin, D50, albuterol, calcium gluconate, sodium bicarb, and lokelma. A subsequent CT scan of the abdomen pelvis
--- NOTE | 2024-02-16 10:02 | PM.IMPN ---
Progress Note: A&P Assessment and Plan (1) Below-knee amputation of both lower extremities: Code(s): S88.111A - Complete traumatic amputation at level between knee and ankle, right lower leg, initial encounter; S88.112A - Complete traumatic amputation at level between knee and ankle, left lower leg, initial encounter Status: Acute (2) Hyperkalemia: Code(s): E87.5 - Hyperkalemia Status: Acute (3) COVID: Code(s): U07.1 - COVID-19 Status: Acute (4) Acute hyperkalemia: Code(s): E87.5 - Hyperkalemia Status: Acute (5) Missed dialysis: Status: Acute (6) Pulmonary edema: Qualifiers: Chronicity: acute Qualified Code(s): J81.0 - Acute pulmonary edema Code(s): J81.1 - Chronic pulmonary edema Status: Acute (7) Mixed hyperlipidemia: Code(s): E78.2 - Mixed hyperlipidemia Status: Chronic (8) Essential (primary) hypertension: Code(s): I10 - Essential (primary) hypertension Status: Chronic (9) Type 2 diabetes mellitus with hyperglycemia: Qualifiers: Diabetes mellitus prison insulin use: with 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 Qualified Code(s): E11.65 - Type 2 diabetes mellitus with hyperglycemia; Z79.4 - intermediate manager (current) use of insulin Code(s): E11.65 - Type 2 diabetes mellitus with hyperglycemia Status: Acute (10) Diabetic foot ulcer: Qualifiers: Diabetes mellitus type: type 2 Diabetic foot ulcer location: unspecified part of foot Laterality: right Non-pressure ulcer stage: unspecified non-pressure ulcer stage Qualified Code(s): E11.621 - Type 2 diabetes mellitus with foot ulcer; L97.519 - Non-pressure chronic ulcer of other part of right foot with unspecified severity Code(s): E11.621 - Type 2 diabetes mellitus with foot ulcer; L97.509 - Non-pressure chronic ulcer of other part of unspecified foot with unspecified severity Status: Acute Plan Assessment and plan (1) Hyperkalemia: ?Code(s): E87.5 - Hyperkalemia ?Status:?Acute ?Assessment and Plan: ? patient received patient given dextrose, insulin, calcium gluconate, Lokelma patient underwent dialysis ?continue to monitor resolved (2) COVID: ?Code(s): U07.1 - COVID-19 ?Status:?Acute ?Assessment and Plan: ?supportive care patient presented with abdomen pain. patient has history of liver cirrhosis ascites CT abdomen pelvis suggest large volume ascites and small pleural effusion ?paracentesis ultrasound-guided in a.m. therapeutic follow-up culture of abdomen fluid and analysis GERD (gastroesophageal reflux disease): ?Qualifiers: ?Esophagitis presence:?esophagitis presence not specified? Qualified Code(s):?K21.9 - Gastro-esophageal reflux disease without esophagitis ?Code(s): K21.9 - Gastro-esophageal reflux disease without esophagitis ?Status:?Acute ?Assessment and Plan: ?PPI (5) CAD (coronary artery disease), autologous vein bypass graft: ?Code(s): I25.810 - Atherosclerosis of coronary artery bypass graft(s) without angina pectoris ?Status:?Acute ?Assessment and Plan: ?resume home meds (6) Combined systolic and diastolic congestive heart failure: ?Code(s): I50.40 - Unspecified combined systolic (congestive) and diastolic (congestive) heart failure ?Status:?Acute ?Assessment and Plan: ? TTE showed biventricular failure with ejection fraction of 25%.? He underwent cardiac catheterization on 12/24 which showed nonobstructive coronary artery disease with patent SVG to OM and moderate pulmonary hypertension.? (7) End-stage renal disease on peritoneal dialysis: ?Code(s): N18.6 - End stage renal disease; Z99.2 - Dependence on renal dialysis ?Status:?Acute ?Assessment and Plan: ?continue hemodialysis ?nephrology consult (8) Below-knee amputation of both lower extremities: ?Code(s): S88.111A - Complete trau
[2024-02-16] MEDS: HEPARIN SODIUM 1,000 UNITS/ML VIAL 6000 UNITS IV PUSH (12:35)
[2024-02-16 12:50] LABS: Glucose Point of Care 88 mg/dl (65-105)
[2024-02-16] MEDS: rifAXIMin 550 MG TABLET PO ×2 (13:00→20:48)
[2024-02-16] MEDS: FAMOTIDINE 10 MG TABLET PO (13:00)
[2024-02-16] MEDS: CHOLECALCIFEROL 1,000 UNITS TABLET 2000 UNITS PO (13:00)
[2024-02-16] MEDS: PREGABALIN (*CRX) 75 MG CAPSULE PO (13:00)
[2024-02-16] MEDS: THIAMINE HCL 100 MG TABLET PO (13:00)
[2024-02-16] MEDS: DEXTROSE 50% 25 GM/50 ML SYRINGE (13:45)
[2024-02-16 15:39] LABS: Glucose Point of Care 66 mg/dl (65-105)
[2024-02-16] MEDS: ASPIRIN 81 MG ENTERIC TABLET PO (15:40)
[2024-02-16] MEDS: LACTULOSE 20 GM/30 ML UDC 10 GM PO (15:41)
[2024-02-16 15:43] LABS: Potassium 4.3 mmol/L (3.4-5.0)
[2024-02-16 16:08] LABS: Glucose Point of Care 172 mg/dl (65-105)
[2024-02-16] MEDS: calcitrioL 0.25 MCG CAPSULE PO (17:31)
[2024-02-16] MEDS: SEVELAMER CARBONATE 800 MG TABLET 1600 MG PO (18:36)
[2024-02-16 20:42] LABS: Glucose Point of Care 93 mg/dl (65-105)
[2024-02-16] MEDS: APIXABAN 5 MG TABLET PO (20:48)
[2024-02-16] MEDS: PREGABALIN (*CRX) 75 MG CAPSULE 150 MG PO (20:48)
[2024-02-17] VITALS (33 sets, daily range): BP systolic 132–192; BP diastolic 76–101; PULSE 67–114; RESP 16–20; TEMP 35.7–37.8; O2SAT 82–100
[2024-02-17] MEDS: VENLAFAXINE HCL 37.5 MG TABLET 112.5 MG PO ×2 (01:10→17:00)
[2024-02-17 07:40] LABS: Albumin Level 3.3 g/dL (3.5-5.1); Anion Gap 6 mmol/L (4-12); Blood Urea Nitrogen 42 mg/dL (9-20); Calcium 8.8 mg/dL (8.4-10.2); Carbon Dioxide 31 mmol/L (22-30); Chloride 99 mmol/L (98-107); Estimated Glomerular Filt Rate 10; Glucose 91 mg/dL (65-110); Phosphorus 8.7 mg/dL (2.5-4.5); Potassium 4.8 mmol/L (3.4-5.0); Sodium 136 mmol/L (137-145)
[2024-02-17] MEDS: APIXABAN 5 MG TABLET PO ×2 (07:46→20:48)
[2024-02-17] MEDS: SEVELAMER CARBONATE 800 MG TABLET 1600 MG PO ×2 (07:46→19:00)
[2024-02-17] MEDS: CHOLECALCIFEROL 1,000 UNITS TABLET 2000 UNITS PO (07:46)
[2024-02-17] MEDS: FAMOTIDINE 10 MG TABLET PO (07:47)
[2024-02-17] MEDS: ASPIRIN 81 MG ENTERIC TABLET PO (07:47)
[2024-02-17] MEDS: LOSARTAN POTASSIUM 25 MG TABLET 50 MG PO (07:48)
[2024-02-17] MEDS: THIAMINE HCL 100 MG TABLET PO (07:48)
[2024-02-17] MEDS: METOPROLOL SUCCINATE EXT REL 50 MG TABCR PO (07:48)
[2024-02-17] MEDS: PREGABALIN (*CRX) 75 MG CAPSULE PO (07:48)
[2024-02-17] MEDS: rifAXIMin 550 MG TABLET PO ×2 (07:48→20:48)
[2024-02-17 08:05] LABS: Glucose Point of Care 79 mg/dl (65-105)
--- NOTE | 2024-02-17 09:23 | ECHO_ITS ---
Patient Info Name: Pankaj Bautista Age: 58 years : 1965 Gender: Male Ht: 44 in Wt: 160 lbs BSA: 1.58 m2 HR: 114 bpm BP: 191 / 101 mmHg Heart Rhythm: Sinus Rhythm Technical Quality: Good Exam Date: 02/17/2024 1:51 PM Exam Location: Echo Lab Patient Status: Inpatient Admit Date: 02/15/2024 Staff Ordering Physician: Dave Mcmillan MD Audit Intern: July Nelson RDCS Attending Provider: Govind Kimble MD Exam Type: CA echo doppler color flow Study Info Indications - CHF Complete two-dimensional, color flow and Doppler transthoracic echocardiogram is performed. Summary 1. Complete two-dimensional, color flow and Doppler transthoracic echocardiogram is performed. 2. Left ventricular chamber dimension is mildly enlarged. 3. Left ventricular systolic function is moderately reduced, estimated at 35-40%. 4. There is moderately increased left ventricular wall thickness. 5. The left ventricular diastolic function is grade III diastolic dysfunction. 6. The probable bioprosthetic aortic valve is not well visualized. 7. There is moderate mitral valve regurgitation. 8. The mitral valve annulus is severely calcified. 9. There is mild tricuspid valve regurgitation. 10. Mild pulmonary hypertension, estimated pulmonary arterial systolic pressure is 37 mmHg. Left Ventricle Left ventricular chamber dimension is mildly enlarged. Left ventricular systolic function is moderately reduced, estimated at 35-40%. There is moderately increased left ventricular wall thickness. The left ventricular diastolic function is grade III diastolic dysfunction. Right Ventricle Right ventricular chamber dimension is normal. Right ventricular systolic function is normal. Left Atria Left atrial chamber dimension is mildly enlarged. Right Atria Right atrial chamber dimension is moderately enlarged. Aortic Valve The probable bioprosthetic aortic valve is not well visualized. There is no aortic valve stenosis. There is no aortic valve regurgitation. Pulmonic Valve The pulmonic valve is not well visualized. Mitral Valve The mitral valve has thickened leaflets. There is moderate mitral valve regurgitation. The mitral valve annulus is severely calcified. Tricuspid Valve The tricuspid valve leaflets are normal. There is mild tricuspid valve regurgitation. Mild pulmonary hypertension, estimated pulmonary arterial systolic pressure is 37 mmHg. Pericardium/Pleural The pericardium appears normal. There is no pericardial effusion. Aorta The aortic root size at the sinus of Valsalva is normal. There is moderate aortic atherosclerosis. Left Ventricular Outflow Tract Name Value Normal LVOT 2D LVOT Diameter 2.0 cm LVOT Doppler LVOT Peak Gradient 3 mmHg LVOT Mean Gradient 2 mmHg LVOT VTI 17 cm LVOT VTI/AV VTI Ratio 0.4 LVOT Stroke Volume 52 ml LVOT CO 3.8 l/min LVOT CI 2.4 l/min/m2 Pulmonic Valve Name
--- NOTE | 2024-02-17 09:25 | PM.IMPN ---
Progress Note: A&P Assessment and Plan (1) Below-knee amputation of both lower extremities: Code(s): S88.111A - Complete traumatic amputation at level between knee and ankle, right lower leg, initial encounter; S88.112A - Complete traumatic amputation at level between knee and ankle, left lower leg, initial encounter Status: Acute (2) Hyperkalemia: Code(s): E87.5 - Hyperkalemia Status: Acute (3) COVID: Code(s): U07.1 - COVID-19 Status: Acute (4) Acute hyperkalemia: Code(s): E87.5 - Hyperkalemia Status: Acute (5) Missed dialysis: Status: Acute (6) Pulmonary edema: Qualifiers: Chronicity: acute Qualified Code(s): J81.0 - Acute pulmonary edema Code(s): J81.1 - Chronic pulmonary edema Status: Acute (7) Mixed hyperlipidemia: Code(s): E78.2 - Mixed hyperlipidemia Status: Chronic (8) Essential (primary) hypertension: Code(s): I10 - Essential (primary) hypertension Status: Chronic (9) Type 2 diabetes mellitus with hyperglycemia: Qualifiers: Diabetes mellitus chcf insulin use: 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 Qualified Code(s): E11.65 - Type 2 diabetes mellitus with hyperglycemia; Z79.4 - halfway (current) use of insulin Code(s): E11.65 - Type 2 diabetes mellitus with hyperglycemia Status: Acute (10) Diabetic foot ulcer: Qualifiers: Diabetes mellitus type: type 2 Diabetic foot ulcer location: unspecified part of foot Laterality: right Non-pressure ulcer stage: unspecified non-pressure ulcer stage Qualified Code(s): E11.621 - Type 2 diabetes mellitus with foot ulcer; L97.519 - Non-pressure chronic ulcer of other part of right foot with unspecified severity Code(s): E11.621 - Type 2 diabetes mellitus with foot ulcer; L97.509 - Non-pressure chronic ulcer of other part of unspecified foot with unspecified severity Status: Acute Plan Assessment and plan (1) Hyperkalemia: ?Code(s): E87.5 - Hyperkalemia ?Status:?Acute ?Assessment and Plan: ? patient received patient given dextrose, insulin, calcium gluconate, Lokelma patient underwent dialysis ?continue to monitor resolved (2) COVID: ?Code(s): U07.1 - COVID-19 ?Status:?Acute ?Assessment and Plan: ?supportive care PATIENT IS ON ROOM AIR patient presented with abdomen pain. patient has history of liver cirrhosis ascites CT abdomen pelvis suggest large volume ascites and small pleural effusion ?paracentesis ultrasound-guided in a.m. therapeutic follow-up culture of abdomen fluid and analysis GERD (gastroesophageal reflux disease): ?Qualifiers: ?Esophagitis presence:?esophagitis presence not specified? Qualified Code(s):?K21.9 - Gastro-esophageal reflux disease without esophagitis ?Code(s): K21.9 - Gastro-esophageal reflux disease without esophagitis ?Status:?Acute ?Assessment and Plan: ?PPI (5) CAD (coronary artery disease), autologous vein bypass graft: ?Code(s): I25.810 - Atherosclerosis of coronary artery bypass graft(s) without angina pectoris ?Status:?Acute ?Assessment and Plan: ?resume home meds (6) Combined systolic and diastolic congestive heart failure: ?Code(s): I50.40 - Unspecified combined systolic (congestive) and diastolic (congestive) heart failure ?Status:?Acute ?Assessment and Plan: ? TTE showed biventricular failure with ejection fraction of 25%.? He underwent cardiac catheterization on 12/24 which showed nonobstructive coronary artery disease with patent SVG to OM and moderate pulmonary hypertension.? Repeat echo hypertension urgency uncontrolled blood pressure, blood pressure 191/101 am 02/16, labetalol 20 mg IV push once continue current hypertension medication May need dialysis Customer Service Teller on board, follow recommendation End-stage renal disease on peritoneal dialysis: ?Code(
[2024-02-17 09:32] LABS: Basophils Absolute Auto 0.1 K/mm3 (0.0-0.1); Eosinophils Absolute Auto 0.1 K/mm3 (0-0.3); Eosinophils Percent Auto 1.7 % (0-4.4); Hematocrit 35.7 % (42.0-52.0); Hemoglobin 10.6 g/dL (14.0-18.0); Immature Granulocyte Absolute 0.02 K/mm3 (0.00-0.031); Immature Granulocyte Percent A 0.3 % (0-0.5); Lymphocytes Absolute Auto 1.22 K/mm3 (0.9-3.2); Mean Corpuscular HGB Conc 29.7 g/dl (32-36); Mean Corpuscular Hemoglobin 27.1 pg (26-34); Mean Corpuscular Volume 91.3 fl (80-100); Mean Platelet Volume 11.6 fl (7.4-10.4); Monocytes Absolute Auto 0.9 K/mm3 (0.1-0.6); Monocytes Percent Auto 15.5 % (2.6-8.5); Neutrophils Absolute Auto 3.5 K/mm3 (1.3-6.7); Neutrophils Percent Auto 60.5 % (45.5-73.1); Platelet Count Result 152 k/mm3 (150-375); Red Blood Count 3.91 M/mm3 (4.6-6.20); Red Cell Distribution Width 21.4 % (11.5-14.5); White Blood Count 5.8 K/mm3 (4.5-10.0)
[2024-02-17 10:23] LABS: Anisocytosis 1+; Platelet Estimate Adequate (Adequate); Poikilocytosis 1+; Polychromasia 1+; Schistocytes Rare
--- NOTE | 2024-02-17 11:33 | P.PNNP_ITS ---
Progress Note: A&P Assessment and Plan (1) End stage renal disease: Code(s): N18.6 - End stage renal disease Status: Chronic Assessment and Plan: * HD today * contiue outpatient T/T/S schedule while hospitalized * follow electrolytes, volume status, and clearance (2) Hyperkalemia: Code(s): E87.5 - Hyperkalemia Status: Acute Assessment and Plan: * resolved * as noted by admission labs * s/p medical therapy * dialysis has corrected further * follow trend of K+ (3) COVID: Code(s): U07.1 - COVID-19 Status: Acute Assessment and Plan: * as noted by testing in ER * however, no shortness of breath or hypoxia * CXR is clear * respiratory isolation * continue supportive therapy (4) Abdominal ascites: Qualifiers: Ascites type: other type Qualified Code(s): R18.8 - Other ascites Code(s): R18.8 - Other ascites Status: Acute Assessment and Plan: * as noted by exam and imaging studies * s/p paracentesis on 02/15 * follow-up on fluid studies (5) Anemia: Qualifiers: Anemia type: due to chronic kidney disease Chronic kidney disease stage: stage 5, not on chronic dialysis Qualified Code(s): N18.5 - Chronic kidney disease, stage 5; D63.1 - Anemia in chronic kidney disease Code(s): D64.9 - Anemia, unspecified Status: Chronic Assessment and Plan: * due to ESRD and acute illness * Epogen with dialysis * follow trend of H/H (6) Hypertension: Code(s): I10 - Essential (primary) hypertension Status: Chronic Assessment and Plan: * at baseline, his BP is quite erratic * resume home medications * follow trend of hemodynamics (7) Diabetes: Code(s): E11.9 - Type 2 diabetes mellitus without complications Status: Chronic Assessment and Plan: * follow accuchecks * glycemic control per hospitalistis Will continue to follow. Subjective Date/time seen: 02/17/24 11:33 Interval history: Follow-up for end stage renal disease on hemodialysis. Tolerated dialysis treatment yesterday and tolerating dialysis treatment at the time of my visit (seen on HD at 11:20AM); s/p paracentesis yesterday as well; overall, he feels significantly better; no apparent distress voiced currently; no other issues or problems overnight or earlier this morning. Exam Narrative: General: WD/WN male in NAD Heart: normal S1 and S2; no rub Lungs: cleat to auscultation Abdomen: soft, nontender, nondistended, positive bowel sounds Extremities: no cyanosis or clubbing; s/p bilateral AKA Skin: warm and dry Objective Data Vital Signs Vital Signs: Vital Signs Temp Pulse Resp BP Pulse Ox O2 Del Method O2 Flow Rate 02/17/24 11:30 74 155/80 H 02/17/24 11:15 73 151/89 H 02/17/24 11:00 67 146/79 H 02/17/24 10:45 68 141/86 H 02/17/24 10:30 70 148/76 H 02/17/24 10:15 73 132/89 02/17/24 09:15 73 138/92 H 02/17/24 08:45 69 156/91 H 02/17/24 08:36 70 159/88 H 02/17/24 08:26 97.9 F 69 19 153/83 H 100 02/17/24 08:26 0 02/17/24 08:00 96.3 F L 114 H 20 191/101 H 90 02/17/24 07:48 73 02/17/24 06:00 69
--- NOTE | 2024-02-17 11:33 | PM.PNNEP ---
Progress Note: A&P Assessment and Plan (1) End stage renal disease: Code(s): N18.6 - End stage renal disease Status: Chronic Assessment and Plan: HD today contiue outpatient T/T/S schedule while hospitalized follow electrolytes, volume status, and clearance (2) Hyperkalemia: Code(s): E87.5 - Hyperkalemia Status: Acute Assessment and Plan: resolved as noted by admission labs s/p medical therapy dialysis has corrected further follow trend of K+ (3) COVID: Code(s): U07.1 - COVID-19 Status: Acute Assessment and Plan: as noted by testing in ER however, no shortness of breath or hypoxia CXR is clear respiratory isolation continue supportive therapy (4) Abdominal ascites: Qualifiers: Ascites type: other type Qualified Code(s): R18.8 - Other ascites Code(s): R18.8 - Other ascites Status: Acute Assessment and Plan: as noted by exam and imaging studies s/p paracentesis on 02/15 follow-up on fluid studies (5) Anemia: Qualifiers: Anemia type: due to chronic kidney disease Chronic kidney disease stage: stage 5, not on chronic dialysis Qualified Code(s): N18.5 - Chronic kidney disease, stage 5; D63.1 - Anemia in chronic kidney disease Code(s): D64.9 - Anemia, unspecified Status: Chronic Assessment and Plan: due to ESRD and acute illness Epogen with dialysis follow trend of H/H (6) Hypertension: Code(s): I10 - Essential (primary) hypertension Status: Chronic Assessment and Plan: at baseline, his BP is quite erratic resume home medications follow trend of hemodynamics (7) Diabetes: Code(s): E11.9 - Type 2 diabetes mellitus without complications Status: Chronic Assessment and Plan: follow accuchecks glycemic control per hospitalistis Will continue to follow. Subjective Date/time seen: 02/17/24 11:33 Interval history: Follow-up for end stage renal disease on hemodialysis. Tolerated dialysis treatment yesterday and tolerating dialysis treatment at the time of my visit (seen on HD at 11:20AM); s/p paracentesis yesterday as well; overall, he feels significantly better; no apparent distress voiced currently; no other issues or problems overnight or earlier this morning. Exam Narrative: General: WD/WN male in NAD Heart: normal S1 and S2; no rub Lungs: cleat to auscultation Abdomen: soft, nontender, nondistended, positive bowel sounds Extremities: no cyanosis or clubbing; s/p bilateral AKA Skin: warm and dry Objective Data Vital Signs Vital Signs: Vital Signs Temp Pulse Resp BP Pulse Ox O2 Del Method O2 Flow Rate 02/17/24 11:30 74 155/80 H 02/17/24 11:15 73 151/89 H 02/17/24 11:00 67 146/79 H 02/17/24 10:45 68 141/86 H 02/17/24 10:30 70 148/76 H 02/17/24 10:15 73 132/89 02/17/24 09:15 73 138/92 H 02/17/24 08:45 69 156/91 H 02/17/24 08:36 70 159/88 H 02/17/24 08:26 97.9 F 69 19 153/83 H 100 02/17/24 08:26 0 02/17/24 08:00 96.3 F L 114 H 20 191/101 H 90 02/17/24 07:48 73 02/17/24 06:00 69 02/17/24 04:00 77 02/17/24 02:00 72 02/17/24 00:00 72 02/16/24 22:00 72 02/16/24 20:00 75 02/17/24 04:00 71 18 98 Room Air 02/17/24 05:00 97.1 F L 71 18 146/93 H 98 02/17/24 00:00 76 18 98 Room Air 02/17/24 00:26 97.6 F 76 18 157/97 H 98 02/16/24 20:00 74 19 99 Nasal Cannula 2 02/16/24 20:25 97.8 F 74 19 141/77 H 99 02/16/24 18:00 68 Intake/Output Intake/Output: Intake & Output 02/14/24 02/15/24 02/16/24 02/17/24 23:59 23:59 23:59 23:59 Intake Total 1000 1020 540 Output Total 4900 2500 Balance 1557 -9820 -1960 Meds/Results Medications: Active Medications Generic Name Dose Ro
--- NOTE | 2024-02-17 12:48 | PC.NURSE ---
Pt taken from dialysis to ultrasound accompanied by RN. His blood sugar was checked. Pt stable, no complaints
[2024-02-17 12:49] LABS: Glucose Point of Care 96 mg/dl (65-105)
[2024-02-17 16:05] LABS: Appearance Peritoneal Fluid Hazy (Clear); Color Peritoneal Fluid Yellow (Colorless); Lymphocytes Peritoneal Fluid 36 %; Macrophages Peritoneal Fluid 46 %; Mesothelial Cells Peritoneal Fluid 9 %; Neutrophils Peritoneal Fluid 9 % (0-25); Nucleated Cells Peritoneal Flu 615 /uL (0-500); RBC Peritoneal Fluid 3000 /uL (0-10000); Source Peritoneal Fluid Peritoneal Fluid
[2024-02-17 16:41] LABS: Glucose Point of Care 164 mg/dl (65-105)
[2024-02-17] MEDS: PREGABALIN (*CRX) 75 MG CAPSULE 150 MG PO (20:48)
--- NOTE | 2024-02-17 22:00 | PC.NURSE ---
This patient, Pankaj Bautista, was transferred to [facility] on 02/17/24 at 2200. Personal belongings sent with patient. Report given to JESENIA Lennon. Appropriate documentation sent with patient.
--- NOTE | 2024-02-17 22:27 | PC.NURSE ---
RECIEVED PT FROM IMU PER BED. VOICES NO C/O
[2024-02-18] VITALS (11 sets, daily range): BP systolic 170–190; BP diastolic 80–100; PULSE 72–86; RESP 16; TEMP 36.4–36.7; O2SAT 95–99
[2024-02-18 05:49] LABS: Basophils Absolute Auto 0.1 K/mm3 (0.0-0.1); Basophils Percent Auto 0.8 % (0.2-1.2); Eosinophils Absolute Auto 0.1 K/mm3 (0-0.3); Eosinophils Percent Auto 1.5 % (0-4.4); Hematocrit 37.6 % (42.0-52.0); Hemoglobin 10.8 g/dL (14.0-18.0); Immature Granulocyte Absolute 0.02 K/mm3 (0.00-0.031); Immature Granulocyte Percent A 0.3 % (0-0.5); Lymphocytes Absolute Auto 1.41 K/mm3 (0.9-3.2); Lymphocytes Percent Auto 21.4 % (18.3-44.2); Mean Corpuscular HGB Conc 28.7 g/dl (32-36); Mean Corpuscular Hemoglobin 26.6 pg (26-34); Mean Corpuscular Volume 92.6 fl (80-100); Monocytes Absolute Auto 1.1 K/mm3 (0.1-0.6); Monocytes Percent Auto 16.3 % (2.6-8.5); Neutrophils Absolute Auto 3.9 K/mm3 (1.3-6.7); Neutrophils Percent Auto 59.7 % (45.5-73.1); Platelet Count Result 160 k/mm3 (150-375); Red Blood Count 4.06 M/mm3 (4.6-6.20); Red Cell Distribution Width 20.7 % (11.5-14.5); White Blood Count 6.6 K/mm3 (4.5-10.0)
[2024-02-18 06:09] LABS: Alanine Aminotransferase 28 U/L (6-50); Albumin Level 3.2 g/dL (3.5-5.1); Alkaline Phosphatase 165 U/L (38-126); Anion Gap 7 mmol/L (4-12); Aspartate Amino Transferase 24 U/L (17-59); Bilirubin,Total 0.7 mg/dL (0.2-1.3); Blood Urea Nitrogen 31 mg/dL (9-20); Carbon Dioxide 26 mmol/L (22-30); Chloride 103 mmol/L (98-107); Estimated Glomerular Filt Rate 15; Glucose 96 mg/dL (65-110); Magnesium 2.1 mg/dL (1.6-2.3); Phosphorus 7.1 mg/dL (2.5-4.5); Potassium 4.1 mmol/L (3.4-5.0); Sodium 136 mmol/L (137-145)
[2024-02-18 06:14] LABS: Anisocytosis 1+; Platelet Estimate Adequate (Adequate); Polychromasia 1+; Schistocytes Rare
[2024-02-18] MEDS: SEVELAMER CARBONATE 800 MG TABLET 1600 MG PO ×3 (08:24→17:18)
[2024-02-18] MEDS: CHOLECALCIFEROL 1,000 UNITS TABLET 2000 UNITS PO (08:25)
[2024-02-18] MEDS: APIXABAN 5 MG TABLET PO ×2 (08:25→20:36)
[2024-02-18] MEDS: FAMOTIDINE 10 MG TABLET PO (08:26)
[2024-02-18] MEDS: METOPROLOL SUCCINATE EXT REL 50 MG TABCR PO (08:26)
[2024-02-18] MEDS: THIAMINE HCL 100 MG TABLET PO (08:26)
[2024-02-18] MEDS: PREGABALIN (*CRX) 75 MG CAPSULE PO (08:26)
[2024-02-18] MEDS: LOSARTAN POTASSIUM 25 MG TABLET 50 MG PO (08:26)
[2024-02-18] MEDS: rifAXIMin 550 MG TABLET PO ×2 (08:26→20:36)
[2024-02-18] MEDS: ASPIRIN 81 MG ENTERIC TABLET PO (08:30)
--- NOTE | 2024-02-18 09:08 | PM.IMPN ---
Progress Note: A&P Assessment and Plan (1) Below-knee amputation of both lower extremities: Code(s): S88.111A - Complete traumatic amputation at level between knee and ankle, right lower leg, initial encounter; S88.112A - Complete traumatic amputation at level between knee and ankle, left lower leg, initial encounter Status: Acute (2) Hyperkalemia: Code(s): E87.5 - Hyperkalemia Status: Acute (3) COVID: Code(s): U07.1 - COVID-19 Status: Acute (4) Acute hyperkalemia: Code(s): E87.5 - Hyperkalemia Status: Acute (5) Missed dialysis: Status: Acute (6) Pulmonary edema: Qualifiers: Chronicity: acute Qualified Code(s): J81.0 - Acute pulmonary edema Code(s): J81.1 - Chronic pulmonary edema Status: Acute (7) Mixed hyperlipidemia: Code(s): E78.2 - Mixed hyperlipidemia Status: Chronic (8) Essential (primary) hypertension: Code(s): I10 - Essential (primary) hypertension Status: Chronic (9) Type 2 diabetes mellitus with hyperglycemia: Qualifiers: Diabetes mellitus longterm insulin use: with 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 Qualified Code(s): E11.65 - Type 2 diabetes mellitus with hyperglycemia; Z79.4 - intermediate school teacher (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) use of insulin Code(s): E11.65 - Type 2 diabetes mellitus with hyperglycemia Status: Acute (10) Diabetic foot ulcer: Qualifiers: Diabetes mellitus type: type 2 Diabetic foot ulcer location: unspecified part of foot Laterality: right Non-pressure ulcer stage: unspecified non-pressure ulcer stage Qualified Code(s): E11.621 - Type 2 diabetes mellitus with foot ulcer; L97.519 - Non-pressure chronic ulcer of other part of right foot with unspecified severity Code(s): E11.621 - Type 2 diabetes mellitus with foot ulcer; L97.509 - Non-pressure chronic ulcer of other part of unspecified foot with unspecified severity Status: Acute Plan Assessment and plan (1) Hyperkalemia: ?Code(s): E87.5 - Hyperkalemia ?Status:?Acute ?Assessment and Plan: ? patient received patient given dextrose, insulin, calcium gluconate, Lokelma patient underwent dialysis ?continue to monitor resolved (2) COVID: ?Code(s): U07.1 - COVID-19 ?Status:?Acute ?Assessment and Plan: ?supportive care PATIENT IS ON ROOM AIR patient presented with abdomen pain. patient has history of liver cirrhosis ascites CT abdomen pelvis suggest large volume ascites and small pleural effusion ?paracentesis ultrasound-guided in a.m. therapeutic Pending report of culture of abdomen fluid and analysis hold abx now, pt has no abd pain now. GERD (gastroesophageal reflux disease): ?Qualifiers: ?Esophagitis presence:?esophagitis presence not specified? Qualified Code(s):?K21.9 - Gastro-esophageal reflux disease without esophagitis ?Code(s): K21.9 - Gastro-esophageal reflux disease without esophagitis ?Status:?Acute ?Assessment and Plan: ?PPI (5) CAD (coronary artery disease), autologous vein bypass graft: ?Code(s): I25.810 - Atherosclerosis of coronary artery bypass graft(s) without angina pectoris ?Status:?Acute ?Assessment and Plan: ?resume home meds (6) Combined systolic and diastolic congestive heart failure: ?Code(s): I50.40 - Unspecified combined systolic (congestive) and diastolic (congestive) heart failure ?Status:?Acute ?Assessment and Plan: ? TTE showed biventricular failure with ejection fraction of 25%.? He underwent cardiac catheterization on 12/24 which showed nonobstructive coronary artery disease with patent SVG to OM and moderate pulmonary hypertension.? Repeat echo hypertension urgency uncontrolled blood pressure, blood pressure 191/101 am 02/16, labetalol 20 mg IV push once continue current hypertension medication May need more dialysis [employer] Teacher on board, follow recommendation End-st
[2024-02-18] MEDS: VENLAFAXINE HCL 37.5 MG TABLET 112.5 MG PO ×2 (10:20→20:35)
--- NOTE | 2024-02-18 12:09 | P.PNNP_ITS ---
Progress Note: A&P Assessment and Plan (1) End stage renal disease: Code(s): N18.6 - End stage renal disease Status: Chronic Assessment and Plan: * HD yesterday * continue outpatient T/T/S schedule while hospitalized * follow electrolytes, volume status, and clearance (2) Hyperkalemia: Code(s): E87.5 - Hyperkalemia Status: Acute Assessment and Plan: * resolved * as noted by admission labs * s/p medical therapy * dialysis has corrected further * follow trend of K+ (3) COVID: Code(s): U07.1 - COVID-19 Status: Acute Assessment and Plan: * as noted by testing in ER * however, no shortness of breath or hypoxia * CXR is clear * continue supportive therapy (4) Abdominal ascites: Qualifiers: Ascites type: other type Qualified Code(s): R18.8 - Other ascites Code(s): R18.8 - Other ascites Status: Acute Assessment and Plan: * as noted by exam and imaging studies * s/p paracentesis on 02/15 and 02/16 * follow-up on fluid studies (5) Anemia: Qualifiers: Anemia type: due to chronic kidney disease Chronic kidney disease stage: stage 5, not on chronic dialysis Qualified Code(s): N18.5 - Chronic kidn ey disease, stage 5; D63.1 - Anemia in chronic kidney disease Code(s): D64.9 - Anemia, unspecified Status: Chronic Assessment and Plan: * due to ESRD and acute illness * Epogen with dialysis * follow trend of H/H (6) Hypertension: Code(s): I10 - Essential (primary) hypertension Status: Chronic Assessment and Plan: * at baseline, his BP is quite erratic * resume home medications * follow trend of hemodynamics (7) Diabetes: Code(s): E11.9 - Type 2 diabetes mellitus without complications Status: Chronic Assessment and Plan: * follow accuchecks * glycemic control per hospitalistis Will continue to follow. Subjective Date/time seen: 02/18/24 12:09 Interval history: Follow-up for end stage renal disease on hemodialysis. Tolerated dialysis treatment yesterday without any issues or problems; no further complaints of nausea, vomiting or abdominal discomfort; no events overnight or earlier this morning; no apparent distress noted; asking me about possible discharge. Exam Narrative: General: WD/WN male in NAD Heart: normal S1 and S2; no rub Lungs: cleat to auscultation Abdomen: soft, nontender, nondistended, positive bowel sounds Extremities: no cyanosis or clubbing; s/p bilateral AKA Skin: warm and intact Objective Data Vital Signs Vital Signs: Vital Signs Temp Pulse Resp BP Pulse Ox O2 Del Method 02/18/24 12:00 72 02/18/24 08:00 79 02/18/24 08:00 95 Room Air 02/18/24 08:26 75 02/18/24 06:50 98.1 F 83 16 190/100 H 95 02/18/24 04:00 77 02/18/24 00:00 79 02/17/24 22:27 79 02/17/24 20:00 79 02/17/24 20:00 Room Air 02/17/24 18:00 78 02/17/24 19:51 97.0 F L 91 16 192/90 H 82 L 02/17/24 16:19 97.2 F L 76 18 168/83 H 90 Intake/Output Intake/Output: Intake & Output 02/15/24 02/16/24 02/17/24 02/18/24
--- NOTE | 2024-02-18 12:09 | PM.PNNEP ---
Progress Note: A&P Assessment and Plan (1) End stage renal disease: Code(s): N18.6 - End stage renal disease Status: Chronic Assessment and Plan: HD yesterday continue outpatient T/T/S schedule while hospitalized follow electrolytes, volume status, and clearance (2) Hyperkalemia: Code(s): E87.5 - Hyperkalemia Status: Acute Assessment and Plan: resolved as noted by admission labs s/p medical therapy dialysis has corrected further follow trend of K+ (3) COVID: Code(s): U07.1 - COVID-19 Status: Acute Assessment and Plan: as noted by testing in ER however, no shortness of breath or hypoxia CXR is clear continue supportive therapy (4) Abdominal ascites: Qualifiers: Ascites type: other type Qualified Code(s): R18.8 - Other ascites Code(s): R18.8 - Other ascites Status: Acute Assessment and Plan: as noted by exam and imaging studies s/p paracentesis on 02/15 and 02/16 follow-up on fluid studies (5) Anemia: Qualifiers: Anemia type: due to chronic kidney disease Chronic kidney disease stage: stage 5, not on chronic dialysis Qualified Code(s): N18.5 - Chronic kidney disease, stage 5; D63.1 - Anemia in chronic kidney disease Code(s): D64.9 - Anemia, unspecified Status: Chronic Assessment and Plan: due to ESRD and acute illness Epogen with dialysis follow trend of H/H (6) Hypertension: Code(s): I10 - Essential (primary) hypertension Status: Chronic Assessment and Plan: at baseline, his BP is quite erratic resume home medications follow trend of hemodynamics (7) Diabetes: Code(s): E11.9 - Type 2 diabetes mellitus without complications Status: Chronic Assessment and Plan: follow accuchecks glycemic control per hospitalistis Will continue to follow. Subjective Date/time seen: 02/18/24 12:09 Interval history: Follow-up for end stage renal disease on hemodialysis. Tolerated dialysis treatment yesterday without any issues or problems; no further complaints of nausea, vomiting or abdominal discomfort; no events overnight or earlier this morning; no apparent distress noted; asking me about possible discharge. Exam Narrative: General: WD/WN male in NAD Heart: normal S1 and S2; no rub Lungs: cleat to auscultation Abdomen: soft, nontender, nondistended, positive bowel sounds Extremities: no cyanosis or clubbing; s/p bilateral AKA Skin: warm and intact Objective Data Vital Signs Vital Signs: Vital Signs Temp Pulse Resp BP Pulse Ox O2 Del Method 02/18/24 12:00 72 02/18/24 08:00 79 02/18/24 08:00 95 Room Air 02/18/24 08:26 75 02/18/24 06:50 98.1 F 83 16 190/100 H 95 02/18/24 04:00 77 02/18/24 00:00 79 02/17/24 22:27 79 02/17/24 20:00 79 02/17/24 20:00 Room Air 02/17/24 18:00 78 02/17/24 19:51 97.0 F L 91 16 192/90 H 82 L 02/17/24 16:19 97.2 F L 76 18 168/83 H 90 Intake/Output Intake/Output: Intake & Output 02/15/24 02/16/24 02/17/24 02/18/24 23:59 23:59 23:59 23:59 Intake Total 1000 1020 800 480 Output Total 4900 2500 Balance 1000 -3880 -1700 480 Meds/Results Medications: Active Medications Generic Name Dose Route Start Last Admin Trade Name Yuliet PRN Reason Stop Dose Admin Apixaban 5 mg 02/16/24 09:00 02/18/24 08:25 Apixaban 5 Mg Tablet PO 5 mg Q12HR ALEX Administration Aspirin 81 mg 02/16/24 09:00 02/18/24 08:30 Aspirin 81 Mg Enteric Tablet PO 03/17/24 08:59 81 mg DAILY ALEX Administration Calcitriol 0.25 mcg 02/16/24 17:00 02/16/24 17:31 Calcitriol 0.25 Mcg Capsule PO 0.25 mcg MOWEFR ALEX Administration Famotidine 10 mg 02/16/24 09:00 02/18/24 08:26 Famotidine 10 Mg Tablet PO 10 mg DAILY ALEX Administration Albumin Human 50 mls
--- NOTE | 2024-02-18 16:22 | PC.NURSE ---
Dr Frazier notified of bp 190/100. Ms stated he will review meds.
[2024-02-18] MEDS: hydrALAZINE HCL 50 MG TABLET PO (17:18)
[2024-02-18] MEDS: PREGABALIN (*CRX) 75 MG CAPSULE 150 MG PO (20:35)
[2024-02-18 21:03] LABS: Glucose Point of Care 112 mg/dl (65-105)
[2024-02-19] VITALS (11 sets, daily range): BP systolic 168–182; BP diastolic 98–103; PULSE 71–85; RESP 18; TEMP 36.3–36.6; O2SAT 96–100
[2024-02-19 05:58] LABS: Basophils Absolute Auto 0.1 K/mm3 (0.0-0.1); Basophils Percent Auto 0.9 % (0.2-1.2); Eosinophils Absolute Auto 0.1 K/mm3 (0-0.3); Eosinophils Percent Auto 1.9 % (0-4.4); Hemoglobin 10.7 g/dL (14.0-18.0); Immature Granulocyte Absolute 0.02 K/mm3 (0.00-0.031); Immature Granulocyte Percent A 0.3 % (0-0.5); Lymphocytes Absolute Auto 1.36 K/mm3 (0.9-3.2); Lymphocytes Percent Auto 19.9 % (18.3-44.2); Mean Corpuscular HGB Conc 30.6 g/dl (32-36); Mean Corpuscular Hemoglobin 27.6 pg (26-34); Mean Corpuscular Volume 90.4 fl (80-100); Mean Platelet Volume 10.7 fl (7.4-10.4); Monocytes Absolute Auto 0.9 K/mm3 (0.1-0.6); Monocytes Percent Auto 13.2 % (2.6-8.5); Neutrophils Absolute Auto 4.4 K/mm3 (1.3-6.7); Neutrophils Percent Auto 63.8 % (45.5-73.1); Platelet Count Result 154 k/mm3 (150-375); Red Blood Count 3.87 M/mm3 (4.6-6.20); Red Cell Distribution Width 20.9 % (11.5-14.5); White Blood Count 6.8 K/mm3 (4.5-10.0)
[2024-02-19 06:12] LABS: Alanine Aminotransferase 21 U/L (6-50); Alkaline Phosphatase 226 U/L (38-126); Anion Gap 6 mmol/L (4-12); Aspartate Amino Transferase 19 U/L (17-59); Bilirubin,Total 0.5 mg/dL (0.2-1.3); Blood Urea Nitrogen 42 mg/dL (9-20); Calcium 9.1 mg/dL (8.4-10.2); Carbon Dioxide 30 mmol/L (22-30); Chloride 99 mmol/L (98-107); Estimated Glomerular Filt Rate 10; Glucose 105 mg/dL (65-110); Magnesium 2.3 mg/dL (1.6-2.3); Phosphorus 8.1 mg/dL (2.5-4.5); Potassium 3.8 mmol/L (3.4-5.0); Sodium 135 mmol/L (137-145)
[2024-02-19] MEDS: hydrALAZINE HCL 20 MG/ML VIAL 10 MG IV PUSH ×2 (06:24→21:08)
[2024-02-19 08:21] LABS: Glucose Point of Care 94 mg/dl (65-105)
[2024-02-19] MEDS: rifAXIMin 550 MG TABLET PO ×2 (09:12→21:06)
[2024-02-19] MEDS: LOSARTAN POTASSIUM 25 MG TABLET 50 MG PO (09:12)
[2024-02-19] MEDS: VENLAFAXINE HCL 37.5 MG TABLET 112.5 MG PO ×2 (09:12→21:06)
[2024-02-19] MEDS: CHOLECALCIFEROL 1,000 UNITS TABLET 2000 UNITS PO (09:12)
[2024-02-19] MEDS: SEVELAMER CARBONATE 800 MG TABLET 1600 MG PO ×3 (09:13→17:05)
[2024-02-19] MEDS: APIXABAN 5 MG TABLET PO ×2 (09:13→21:06)
[2024-02-19] MEDS: PREGABALIN (*CRX) 75 MG CAPSULE PO (09:13)
[2024-02-19] MEDS: ASPIRIN 81 MG ENTERIC TABLET PO (09:13)
[2024-02-19] MEDS: METOPROLOL SUCCINATE EXT REL 50 MG TABCR PO (09:13)
[2024-02-19] MEDS: THIAMINE HCL 100 MG TABLET PO (09:14)
[2024-02-19] MEDS: FAMOTIDINE 10 MG TABLET PO (09:14)
--- NOTE | 2024-02-19 10:18 | P.PNNP_ITS ---
Progress Note: A&P Assessment and Plan (1) End stage renal disease: Code(s): N18.6 - End stage renal disease Status: Chronic Assessment and Plan: * HD tomorrow * continue outpatient T/T/S schedule while hospitalized * follow electrolytes, volume status, and clearance (2) Hyperkalemia: Code(s): E87.5 - Hyperkalemia Status: Acute Assessment and Plan: * resolved * as noted by admission labs * s/p medical therapy * dialysis has corrected further * follow trend of K+ (3) COVID: Code(s): U07.1 - COVID-19 Status: Acute Assessment and Plan: * as noted by testing in ER * however, no shortness of breath or hypoxia * CXR is clear * continue supportive therapy (4) Abdominal ascites: Qualifiers: Ascites type: other type Qualified Code(s): R18.8 - Other ascites Code(s): R18.8 - Other ascites Status: Acute Assessment and Plan: * as noted by exam and imaging studies * s/p paracentesis on 02/15 and 02/16 * follow-up on fluid studies (5) Anemia: Qualifiers: Anemia type: due to chronic kidney disease Chronic kidney disease stage: stage 5, not on chronic dialysis Qualified Code(s): N18.5 - Chronic kidney disease, stage 5; D63.1 - Anemia in chronic kidney disease Code(s): D64.9 - Anemia, unspecified Status: Chronic Assessment and Plan: * due to ESRD and acute illness * Epogen with dialysis * follow trend of H/H (6) Hypertension: Code(s): I10 - Essential (primary) hypertension Status: Chronic Assessment and Plan: * at baseline, his BP is quite erratic * resume home medications * follow trend of hemodynamics (7) Diabetes: Code(s): E11.9 - Type 2 diabetes mellitus without complications Status: Chronic Assessment and Plan: * follow accuchecks * glycemic control per hospitalists Not opposed to discharge from renal perspective if otherwise medically stable. Will continue to follow. Subjective Date/time seen: 02/19/24 10:18 Interval history: Follow-up for end stage renal disease on hemodialysis. No apparent distress voiced at the time of my visit; was resting comfortably before I woke him up; no other issues/events overnight or earlier this morning; no complaints of nausea/vomiting or abdominal pain; BP has been erratic (but that is his baseline). Exam Narrative: General: WD/WN male in NAD Heart: normal S1 and S2; no rub Lungs: cleat to auscultation Abdomen: soft, nontender, nondistended, positive bowel sounds Extremities: no cyanosis or clubbing; s/p bilateral AKA Skin: no rash Objective Data Vital Signs Vital Signs: Vital Signs Temp Pulse Resp BP Pulse Ox O2 Del Method 02/19/24 08:00 80 02/19/24 09:15 Room Air 02/19/24 09:13 85 02/19/24 05:39 180/98 H 02/19/24 05:17 97.9 F 85 18 182/100 H 96 02/19/24 04:00 83 02/19/24 00:00 84 02/18/24 20:00 Room Air 02/18/24 20:00 86 02/18/24 20:36 97.6 F 80 16 185/91 H 99 02/18/24 18:43 170/80 H 02/18/24 16:00 80 02/18/24 16:18 190/100 H Intake/Output Intake/Output: In
--- NOTE | 2024-02-19 10:18 | PM.PNNEP ---
Progress Note: A&P Assessment and Plan (1) End stage renal disease: Code(s): N18.6 - End stage renal disease Status: Chronic Assessment and Plan: HD tomorrow continue outpatient T/T/S schedule while hospitalized follow electrolytes, volume status, and clearance (2) Hyperkalemia: Code(s): E87.5 - Hyperkalemia Status: Acute Assessment and Plan: resolved as noted by admission labs s/p medical therapy dialysis has corrected further follow trend of K+ (3) COVID: Code(s): U07.1 - COVID-19 Status: Acute Assessment and Plan: as noted by testing in ER however, no shortness of breath or hypoxia CXR is clear continue supportive therapy (4) Abdominal ascites: Qualifiers: Ascites type: other type Qualified Code(s): R18.8 - Other ascites Code(s): R18.8 - Other ascites Status: Acute Assessment and Plan: as noted by exam and imaging studies s/p paracentesis on 02/15 and 02/16 follow-up on fluid studies (5) Anemia: Qualifiers: Anemia type: due to chronic kidney disease Chronic kidney disease stage: stage 5, not on chronic dialysis Qualified Code(s): N18.5 - Chronic kidney disease, stage 5; D63.1 - Anemia in chronic kidney disease Code(s): D64.9 - Anemia, unspecified Status: Chronic Assessment and Plan: due to ESRD and acute illness Epogen with dialysis follow trend of H/H (6) Hypertension: Code(s): I10 - Essential (primary) hypertension Status: Chronic Assessment and Plan: at baseline, his BP is quite erratic resume home medications follow trend of hemodynamics (7) Diabetes: Code(s): E11.9 - Type 2 diabetes mellitus without complications Status: Chronic Assessment and Plan: follow accuchecks glycemic control per hospitalists Not opposed to discharge from renal perspective if otherwise medically stable. Will continue to follow. Subjective Date/time seen: 02/19/24 10:18 Interval history: Follow-up for end stage renal disease on hemodialysis. No apparent distress voiced at the time of my visit; was resting comfortably before I woke him up; no other issues/events overnight or earlier this morning; no complaints of nausea/vomiting or abdominal pain; BP has been erratic (but that is his baseline). Exam Narrative: General: WD/WN male in NAD Heart: normal S1 and S2; no rub Lungs: cleat to auscultation Abdomen: soft, nontender, nondistended, positive bowel sounds Extremities: no cyanosis or clubbing; s/p bilateral AKA Skin: no rash Objective Data Vital Signs Vital Signs: Vital Signs Temp Pulse Resp BP Pulse Ox O2 Del Method 02/19/24 08:00 80 02/19/24 09:15 Room Air 02/19/24 09:13 85 02/19/24 05:39 180/98 H 02/19/24 05:17 97.9 F 85 18 182/100 H 96 02/19/24 04:00 83 02/19/24 00:00 84 02/18/24 20:00 Room Air 02/18/24 20:00 86 02/18/24 20:36 97.6 F 80 16 185/91 H 99 02/18/24 18:43 170/80 H 02/18/24 16:00 80 02/18/24 16:18 190/100 H Intake/Output Intake/Output: Intake & Output 02/16/24 02/17/24 02/18/24 02/19/24 23:59 23:59 23:59 23:59 Intake Total 1020 800 700 440 Output Total 4900 2500 Balance -3880 -1700 700 440 Meds/Results Medications: Active Medications Generic Name Dose Route Start Last Admin Trade Name Freq PRN Reason Stop Dose Admin Apixaban 5 mg 02/16/24 09:00 02/19/24 09:13 Apixaban 5 Mg Tablet PO 5 mg Q12HR ALEX Administration Aspirin 81 mg 02/16/24 09:00 02/19/24 09:13 Aspirin 81 Mg Enteric Tablet PO 03/17/24 08:59 81 mg DAILY ALEX Administration Calcitriol 0.25 mcg 02/16/24 17:00 02/16/24 17:31 Calcitriol 0.25 Mcg Capsule PO 0.25 mcg MOWEFR ALEX Administration Famotidine 10 mg 02/16/24 09:00 02/19/24 09:14 Famotidine 10 Mg Ta
[2024-02-19 12:06] LABS: Glucose Point of Care 106 mg/dl (65-105)
--- NOTE | 2024-02-19 15:09 | PM.IMPN ---
Progress Note: A&P Assessment and Plan (1) Below-knee amputation of both lower extremities: Code(s): S88.111A - Complete traumatic amputation at level between knee and ankle, right lower leg, initial encounter; S88.112A - Complete traumatic amputation at level between knee and ankle, left lower leg, initial encounter Status: Acute (2) Hyperkalemia: Code(s): E87.5 - Hyperkalemia Status: Acute (3) COVID: Code(s): U07.1 - COVID-19 Status: Acute (4) Acute hyperkalemia: Code(s): E87.5 - Hyperkalemia Status: Acute (5) Missed dialysis: Status: Acute (6) Pulmonary edema: Qualifiers: Chronicity: acute Qualified Code(s): J81.0 - Acute pulmonary edema Code(s): J81.1 - Chronic pulmonary edema Status: Acute (7) Mixed hyperlipidemia: Code(s): E78.2 - Mixed hyperlipidemia Status: Chronic (8) Essential (primary) hypertension: Code(s): I10 - Essential (primary) hypertension Status: Chronic (9) Type 2 diabetes mellitus with hyperglycemia: Qualifiers: Diabetes mellitus correction insulin use: with watermaster use Qualified Code(s): E11.65 - Type 2 diabetes mellitus with hyperglycemia; Z79.4 - long term acute care registered nurse (current) use of insulin Code(s): E11.65 - Type 2 diabetes mellitus with hyperglycemia Status: Acute (10) Diabetic foot ulcer: Qualifiers: Diabetic foot ulcer location: unspecified part of foot Diabetes mellitus type: type 2 Laterality: right Non-pressure ulcer stage: unspecified non-pressure ulcer stage Qualified Code(s): E11.621 - Type 2 diabetes mellitus with foot ulcer; L97.519 - Non-pressure chronic ulcer of other part of right foot with unspecified severity Code(s): E11.621 - Type 2 diabetes mellitus with foot ulcer; L97.509 - Non-pressure chronic ulcer of other part of unspecified foot with unspecified severity Status: Acute Plan Assessment and plan (1) Hyperkalemia: ?Code(s): E87.5 - Hyperkalemia ?Status:?Acute ?Assessment and Plan: ?Patient received patient given dextrose, insulin, calcium gluconate, Lokelma Patient underwent dialysis (2) COVID: ?Code(s): U07.1 - COVID-19 ?Status:?Acute ?Assessment and Plan: ?supportive care GERD (gastroesophageal reflux disease): ?Qualifiers: ?Esophagitis presence:?esophagitis presence not specified? Qualified Code(s):?K21.9 - Gastro-esophageal reflux disease without esophagitis ?Code(s): K21.9 - Gastro-esophageal reflux disease without esophagitis ?Status:?Acute ?Assessment and Plan: ?PPI (5) CAD (coronary artery disease), autologous vein bypass graft: ?Code(s): I25.810 - Atherosclerosis of coronary artery bypass graft(s) without angina pectoris ?Status:?Acute ?Assessment and Plan: ?resume home medication (6) Combined systolic and diastolic congestive heart failure: ?Code(s): I50.40 - Unspecified combined systolic (congestive) and diastolic (congestive) heart failure ?Status:?Acute ?Assessment and Plan: ? TTE showed biventricular failure with ejection fraction of 25%.? He underwent cardiac catheterization on 12/24 which showed nonobstructive coronary artery disease with patent SVG to OM and moderate pulmonary hypertension.? 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
[2024-02-19 17:02] LABS: Glucose Point of Care 103 mg/dl (65-105)
[2024-02-19] MEDS: PREGABALIN (*CRX) 75 MG CAPSULE 150 MG PO (21:06)
[2024-02-19 21:55] LABS: Glucose Point of Care 206 mg/dl (65-105)
[2024-02-20] VITALS (23 sets, daily range): BP systolic 124–172; BP diastolic 76–102; PULSE 71–85; RESP 16–18; TEMP 36.4–38; O2SAT 100
[2024-02-20 05:06] LABS: Basophils Percent Auto 0.6 % (0.2-1.2); Eosinophils Absolute Auto 0.2 K/mm3 (0-0.3); Eosinophils Percent Auto 2.1 % (0-4.4); Hematocrit 35.3 % (42.0-52.0); Hemoglobin 10.4 g/dL (14.0-18.0); Immature Granulocyte Absolute 0.02 K/mm3 (0.00-0.031); Immature Granulocyte Percent A 0.3 % (0-0.5); Lymphocytes Absolute Auto 1.39 K/mm3 (0.9-3.2); Lymphocytes Percent Auto 19.9 % (18.3-44.2); Mean Corpuscular HGB Conc 29.5 g/dl (32-36); Mean Corpuscular Hemoglobin 27.1 pg (26-34); Mean Corpuscular Volume 91.9 fl (80-100); Mean Platelet Volume 10.7 fl (7.4-10.4); Monocytes Absolute Auto 0.9 K/mm3 (0.1-0.6); Monocytes Percent Auto 12.6 % (2.6-8.5); Neutrophils Absolute Auto 4.5 K/mm3 (1.3-6.7); Neutrophils Percent Auto 64.5 % (45.5-73.1); Platelet Count Result 151 k/mm3 (150-375); Red Blood Count 3.84 M/mm3 (4.6-6.20)
[2024-02-20 05:18] LABS: Alanine Aminotransferase 17 U/L (6-50); Albumin Level 3.2 g/dL (3.5-5.1); Alkaline Phosphatase 187 U/L (38-126); Anion Gap 13 mmol/L (4-12); Aspartate Amino Transferase 18 U/L (17-59); Bilirubin,Total 0.6 mg/dL (0.2-1.3); Blood Urea Nitrogen 51 mg/dL (9-20); Calcium 9.3 mg/dL (8.4-10.2); Carbon Dioxide 22 mmol/L (22-30); Chloride 101 mmol/L (98-107); Estimated Glomerular Filt Rate 8; Glucose 124 mg/dL (65-110); Magnesium 2.5 mg/dL (1.6-2.3); Phosphorus 9.3 mg/dL (2.5-4.5); Potassium 4.2 mmol/L (3.4-5.0); Sodium 136 mmol/L (137-145)
[2024-02-20 05:26] LABS: Anisocytosis 1+; Burr Cells 1+; Ovalocytes 1+; Platelet Estimate Adequate (Adequate)
[2024-02-20 05:27] LABS: Schistocytes Rare
[2024-02-20 07:34] LABS: Glucose Point of Care 84 mg/dl (65-105)
--- NOTE | 2024-02-20 08:05 | PC.NURSE ---
Patient off floor to dialysis via bed. Report given to radiation monitor.
--- NOTE | 2024-02-20 09:10 | PM.PNNEP ---
Progress Note: A&P Assessment and Plan (1) End stage renal disease: Code(s): N18.6 - End stage renal disease Status: Chronic Assessment and Plan: HD today continue outpatient T/T/S schedule while hospitalized follow electrolytes, volume status, and clearance (2) Hyperkalemia: Code(s): E87.5 - Hyperkalemia Status: Acute Assessment and Plan: resolved as noted by admission labs s/p medical therapy dialysis has corrected further follow trend of K+ (3) COVID: Code(s): U07.1 - COVID-19 Status: Acute Assessment and Plan: as noted by testing in ER however, no shortness of breath or hypoxia CXR is clear continue supportive therapy (4) Abdominal ascites: Qualifiers: Ascites type: other type Qualified Code(s): R18.8 - Other ascites Code(s): R18.8 - Other ascites Status: Acute Assessment and Plan: as noted by exam and imaging studies s/p paracentesis on 02/15 and 02/16 follow-up on fluid studies (5) Anemia: Qualifiers: Anemia type: due to chronic kidney disease Chronic kidney disease stage: stage 5, not on chronic dialysis Qualified Code(s): N18.5 - Chronic kidney disease, stage 5; D63.1 - Anemia in chronic kidney disease Code(s): D64.9 - Anemia, unspecified Status: Chronic Assessment and Plan: due to ESRD and acute illness Epogen with dialysis follow trend of H/H (6) Hypertension: Code(s): I10 - Essential (primary) hypertension Status: Chronic Assessment and Plan: at baseline, his BP is quite erratic resume home medications follow trend of hemodynamics (7) Diabetes: Code(s): E11.9 - Type 2 diabetes mellitus without complications Status: Chronic Assessment and Plan: follow accuchecks glycemic control per hospitalists Not opposed to discharge from renal perspective if otherwise medically stable. Will continue to follow. Subjective Date/time seen: 02/20/24 09:10 Interval history: Follow-up for end stage renal disease on hemodialysis. Tolerating hemodialysis treatment at the time of my visit (seen on HD at 9:00AM); appears to be in no apparent distress; no issues/events overnight or earlier this AM; no further nausea or vomiting; anxious for discharge. Exam Narrative: General: WD/WN male in NAD Heart: normal S1 and S2; no rub Lungs: cleat to auscultation Abdomen: soft, nontender, nondistended, positive bowel sounds Extremities: no cyanosis or clubbing; s/p bilateral AKA Skin: no nodules Objective Data Vital Signs Vital Signs: Vital Signs Temp Pulse Resp BP Pulse Ox O2 Del Method 02/20/24 08:00 Room Air 02/20/24 05:07 97.6 F 77 18 171/99 H 100 02/20/24 04:00 74 02/20/24 00:00 79 02/19/24 20:00 Room Air 02/19/24 20:00 79 02/19/24 21:19 97.8 F 79 18 176/103 H 100 02/19/24 16:00 71 02/19/24 14:10 97.3 F L 72 18 168/99 H 98 02/19/24 12:00 81 Intake/Output Intake/Output: Intake & Output 02/17/24 02/18/24 02/19/24 02/20/24 23:59 23:59 23:59 23:59 Intake Total 622 882 0405 750 Output Total 2500 0 Balance -9639 903 3306 750 Meds/Results Medications: Active Medications Generic Name Dose Route Start Last Admin Trade Name Freq PRN Reason Stop Dose Admin Apixaban 5 mg 02/16/24 09:00 02/19/24 21:06 Apixaban 5 Mg Tablet PO 5 mg Q12HR ALEX Administration Aspirin 81 mg 02/16/24 09:00 02/19/24 09:13 Aspirin 81 Mg Enteric Tablet PO 03/17/24 08:59 81 mg DAILY ALEX Administration Calcitriol 0.25 mcg 02/20/24 17:00 Calcitriol 0.25 Mcg Capsule PO TuTa@1700 ALEX Famotidine 10 mg 02/16/24 09:00 02/19/24 09:14 Famotidine 10 Mg Tablet PO 10 mg DAILY ALEX Administration Hydralazine HCl 10 mg 02/19/24 06:09 02/19/24 21:08 Hydralazine Hcl 20 Mg/Ml Vial IV PUSH 1
--- NOTE | 2024-02-20 09:10 | P.PNNP_ITS ---
Progress Note: A&P Assessment and Plan (1) End stage renal disease: Code(s): N18.6 - End stage renal disease Status: Chronic Assessment and Plan: * HD today * continue outpatient T/T/S schedule while hospitalized * follow electrolytes, volume status, and clearance (2) Hyperkalemia: Code(s): E87.5 - Hyperkalemia Status: Acute Assessment and Plan: * resolved * as noted by admission labs * s/p medical therapy * dialysis has corrected further * follow trend of K+ (3) COVID: Code(s): U07.1 - COVID-19 Status: Acute Assessment and Plan: * as noted by testing in ER * however, no shortness of breath or hypoxia * CXR is clear * continue supportive therapy (4) Abdominal ascites: Qualifiers: Ascites type: other type Qualified Code(s): R18.8 - Other ascites Code(s): R18.8 - Other ascites Status: Acute Assessment and Plan: * as noted by exam and imaging studies * s/p paracentesis on 02/15 and 02/16 * follow-up on fluid studies (5) Anemia: Qualifiers: Anemia type: due to chronic kidney disease Chronic kidney disease stage: stage 5, not on chronic dialysis Qualified Code(s): N18.5 - Chronic kidney disease, stage 5; D63.1 - Anemia in chronic kidney disease Code(s): D64.9 - Anemia, unspecified Status: Chronic Assessment and Plan: * due to ESRD and acute illness * Epogen with dialysis * follow trend of H/H (6) Hypertension: Code(s): I10 - Essential (primary) hypertension Status: Chronic Assessment and Plan: * at baseline, his BP is quite erratic * resume home medications * follow trend of hemodynamics (7) Diabetes: Code(s): E11.9 - Type 2 diabetes mellitus without complications Status: Chronic Assessment and Plan: * follow accuchecks * glycemic control per hospitalists Not opposed to discharge from renal perspective if otherwise medically stable. Will continue to follow. Subjective Date/time seen: 02/20/24 09:10 Interval history: Follow-up for end stage renal disease on hemodialysis. Tolerating hemodialysis treatment at the time of my visit (seen on HD at 9:00AM); appears to be in no apparent distress; no issues/events overnight or earlier this AM; no further nausea or vomiting; anxious for discharge. Exam Narrative: General: WD/WN male in NAD Heart: normal S1 and S2; no rub Lungs: cleat to auscultation Abdomen: soft, nontender, nondistended, positive bowel sounds Extremities: no cyanosis or clubbing; s/p bilateral AKA Skin: no nodules Objective Data Vital Signs Vital Signs: Vital Signs Temp Pulse Resp BP Pulse Ox O2 Del Method 02/20/24 08:00 Room Air 02/20/24 05:07 97.6 F 77 18 171/99 H 100 02/20/24 04:00 74 02/20/24 00:00 79 02/19/24 20:00 Room Air 02/19/24 20:00 79 02/19/24 21:19 97.8 F 79 18 176/103 H 100 02/19/24 16:00 71 02/19/24 14:10 97.3 F L 72 18 168/99 H 98 02/19/24 12:00 81 Intake/Output Intake/Output: Intake & Output 02/17/24 02/18/24 02/19/24 02/20/24 23:59 23:59 23:59 23:59 Intake Total [id number] 7
[2024-02-20] MEDS: EPOETIN ALFA-EPBX 4,000 UNITS/ML VIAL 4000 UNITS IV PUSH (10:14)
[2024-02-20] MEDS: HEPARIN SODIUM 1,000 UNITS/ML VIAL 6000 UNITS IV PUSH (12:15)
[2024-02-20] MEDS: SEVELAMER CARBONATE 800 MG TABLET 1600 MG PO (13:04)
--- NOTE | 2024-02-20 13:06 | PM.DS ---
DS: Admitting Diagnosis Discharge Date 02/20/2024 Admitting Diagnosis abdominal distension DS: Discharge Diagnosis Discharge Diagnosis (1) Below-knee amputation of both lower extremities: Code(s): S88.111A - Complete traumatic amputation at level between knee and ankle, right lower leg, initial encounter; S88.112A - Complete traumatic amputation at level between knee and ankle, left lower leg, initial encounter Status: Acute (2) Hyperkalemia: Code(s): E87.5 - Hyperkalemia Status: Acute (3) COVID: Code(s): U07.1 - COVID-19 Status: Acute (4) Acute hyperkalemia: Code(s): E87.5 - Hyperkalemia Status: Acute (5) Missed dialysis: Status: Acute (6) Pulmonary edema: Qualifiers: Chronicity: acute Qualified Code(s): J81.0 - Acute pulmonary edema Code(s): J81.1 - Chronic pulmonary edema Status: Acute (7) Mixed hyperlipidemia: Code(s): E78.2 - Mixed hyperlipidemia Status: Chronic (8) Essential (primary) hypertension: Code(s): I10 - Essential (primary) hypertension Status: Chronic (9) Type 2 diabetes mellitus with hyperglycemia: Qualifiers: Diabetes mellitus 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 Qualified Code(s): E11.65 - Type 2 diabetes mellitus with hyperglycemia; 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 Code(s): E11.65 - Type 2 diabetes mellitus with hyperglycemia Status: Acute (10) Diabetic foot ulcer: Qualifiers: Diabetes mellitus type: type 2 Diabetic foot ulcer location: unspecified part of foot Laterality: right Non-pressure ulcer stage: unspecified non-pressure ulcer stage Qualified Code(s): E11.621 - Type 2 diabetes mellitus with foot ulcer; L97.519 - Non-pressure chronic ulcer of other part of right foot with unspecified severity Code(s): E11.621 - Type 2 diabetes mellitus with foot ulcer; L97.509 - Non-pressure chronic ulcer of other part of unspecified foot with unspecified severity Status: Acute Plan Assessment and plan (1) Hyperkalemia: ?Code(s): E87.5 - Hyperkalemia ?Status:?Acute ?Assessment and Plan: ?Patient received patient given dextrose, insulin, calcium gluconate, Resc Patient underwent dialysis (2) COVID: ?Code(s): U07.1 - COVID-19 ?Status:?Acute ?Assessment and Plan: ?supportive care GERD (gastroesophageal reflux disease): ?Qualifiers: ?Esophagitis presence:?esophagitis presence not specified? Qualified Code(s):?K21.9 - Gastro-esophageal reflux disease without esophagitis ?Code(s): K21.9 - Gastro-esophageal reflux disease without esophagitis ?Status:?Acute ?Assessment and Plan: ?PPI (5) CAD (coronary artery disease), autologous vein bypass graft: ?Code(s): I25.810 - Atherosclerosis of coronary artery bypass graft(s) without angina pectoris ?Status:?Acute ?Assessment and Plan: ?resume home medication (6) Combined systolic and diastolic congestive heart failure: ?Code(s): I50.40 - Unspecified combined systolic (congestive) and diastolic (congestive) heart failure ?Status:?Acute ?Assessment and Plan: ? TTE showed biventricular failure with ejection fraction of 25%.? He underwent cardiac catheterization on 12/24 which showed nonobstructive coronary artery disease with patent SVG to OM and moderate pulmonary hypertension.? hypertension urgency uncontrolled blood pressure, blood pressure 191/101 am 02/16, labetalol 20 mg IV push once continue current hypertension medication May need more dialysis Nurse Clinician on board, follow recommendation End-stage renal disease on peritoneal dialysis: ?Code(s): N18.6 - End stage renal disease; Z99.2 - Dependence on renal dialysis ?Status:?Acute ?Assessment and Plan: ?continue hemodialysis ?nephrology consult pt to have dialysis joshua and DC home after that continue o
--- NOTE | 2024-02-20 13:15 | PC.NURSE ---
Patient returned to unit from dialysis via bed. Patient has no complaints at this time.
[2024-02-20 13:16] LABS: Glucose Point of Care 121 mg/dl (65-105)
[2024-02-20 20:28] LABS: Glucose Peritoneal Fluid 96 mg/dL; Total Protein Peritoneal Fluid 3.5 g/dL
[2024-02-23 13:08] LABS: LDH Peritoneal Fluid 193 U/L (<63)
== END 2024-02-20 14:21 | disposition home or self-care (01) | DRG 682 ==
LOC: ANHED 16:16 → ANHIMU 21:59 → ANH2MED 02-17 22:08
PROVIDERS: Hospitalist; Internal Medicine Nephrology; Physician Assistant; Admitting Provider Internal Medicine; Emergency Provider Student in an Organized Health Care Education/Training Program; PCP Family Medicine; Visit Provider Family Medicine
DX: N18.6 End stage renal disease (principal); U07.1 COVID-19; I13.2 Hypertensive heart and chronic kidney disease with heart failure and with stage 5 chronic kidney disease, or end stage renal disease; I50.42 Chronic combined systolic (congestive) and diastolic (congestive) heart failure; R18.8 Other ascites; I25.810 Atherosclerosis of coronary artery bypass graft(s) without angina pectoris; I69.351 Hemiplegia and hemiparesis following cerebral infarction affecting right dominant side; I69.322 Dysarthria following cerebral infarction; Z99.2 Dependence on renal dialysis; I16.0 Hypertensive urgency; K72.90 Hepatic failure, unspecified without coma; K74.60 Unspecified cirrhosis of liver; E11.610 Type 2 diabetes mellitus with diabetic neuropathic arthropathy; E11.22 Type 2 diabetes mellitus with diabetic chronic kidney disease; E11.40 Type 2 diabetes mellitus with diabetic neuropathy, unspecified; E11.51 Type 2 diabetes mellitus with diabetic peripheral angiopathy without gangrene; E11.319 Type 2 diabetes mellitus with unspecified diabetic retinopathy without macular edema; E87.5 Hyperkalemia; E78.2 Mixed hyperlipidemia; E78.5 Hyperlipidemia, unspecified; D63.1 Anemia in chronic kidney disease; K21.9 Gastro-esophageal reflux disease without esophagitis; K44.9 Diaphragmatic hernia without obstruction or gangrene; M19.90 Unspecified osteoarthritis, unspecified site; N25.0 Renal osteodystrophy; Z79.82 Long term (current) use of aspirin; Z79.01 Long term (current) use of anticoagulants; Z95.2 Presence of prosthetic heart valve; Z95.1 Presence of aortocoronary bypass graft; Z87.891 Personal history of nicotine dependence; Z89.612 Acquired absence of left leg above knee; Z89.611 Acquired absence of right leg above knee
CPT/HCPCS: 36415; 49083; 71045; 71046; 74176; 80048; 80053; 80069; 80076; 82945; 82948; 83605; 83615; 83690; 83735; 84100; 84132; 84157; 85025; 85610; 85730; 86140; 87040; 87070; 87075; 87205; 87637; 88104; 88108; 88305; 89051; 93005; 93306; 94640; 96361; 96374; 96375; 99285; A9270; G0257; J0360; J0612; J1644; J1815; J2270; J2405; J7030; J7120; Q5105

== ENCOUNTER 2024-02-21 06:43 | Emergency (ER) | payer MEDICARE, OTHER, SELFPAY ==
--- NOTE | ~2024-02-21 | US_ITS ---
EXAMINATION: US venous doppler UE RT DATE: 02/21/2024 08:00 INDICATION: Right upper limb swelling. TECHNIQUE: Grayscale ultrasound images without and with compression and Doppler ultrasound images of the right upper extremity veins were obtained. COMPARISON: None. FINDINGS: The visualized portions of the right internal jugular vein, subclavian vein, axillary vein, brachial veins, basilic vein, cephalic vein, radial vein, and ulnar vein are patent. IMPRESSION: 1. No deep venous thrombosis. Reviewed, dictated and finalized at location A.
[2024-02-21 06:53] VITALS: BP 195/106; PULSE 99; RESP 18; TEMP 37.2; O2SAT 97
[2024-02-21 06:56] VITALS: BP 195/106; PULSE 98; RESP 20; TEMP 37.2; O2SAT 95
[2024-02-21 07:28] LABS: Basophils Absolute Auto 0.1 K/mm3 (0.0-0.1); Basophils Percent Auto 0.8 % (0.2-1.2); Eosinophils Absolute Auto 0.1 K/mm3 (0-0.3); Eosinophils Percent Auto 1.1 % (0-4.4); Hematocrit 34.6 % (42.0-52.0); Hemoglobin 10.5 g/dL (14.0-18.0); Immature Granulocyte Absolute 0.01 K/mm3 (0.00-0.031); Immature Granulocyte Percent A 0.1 % (0-0.5); Lymphocytes Absolute Auto 1.11 K/mm3 (0.9-3.2); Lymphocytes Percent Auto 15.4 % (18.3-44.2); Mean Corpuscular HGB Conc 30.3 g/dl (32-36); Mean Corpuscular Hemoglobin 27.6 pg (26-34); Mean Corpuscular Volume 91.1 fl (80-100); Mean Platelet Volume 10.6 fl (7.4-10.4); Monocytes Absolute Auto 0.9 K/mm3 (0.1-0.6); Monocytes Percent Auto 12.5 % (2.6-8.5); Neutrophils Absolute Auto 5.1 K/mm3 (1.3-6.7); Neutrophils Percent Auto 70.1 % (45.5-73.1); Platelet Count Result 155 k/mm3 (150-375); White Blood Count 7.2 K/mm3 (4.5-10.0)
[2024-02-21 07:37] LABS: Anion Gap 12 mmol/L (4-12); Blood Urea Nitrogen 36 mg/dL (9-20); Calcium 9.7 mg/dL (8.4-10.2); Carbon Dioxide 23 mmol/L (22-30); Chloride 103 mmol/L (98-107); Estimated Glomerular Filt Rate 11; Glucose 110 mg/dL (65-110); Potassium 4.5 mmol/L (3.4-5.0); Sodium 138 mmol/L (137-145)
[2024-02-21 07:43] LABS: INR 1.4; Prothrombin Time 17.8 Seconds (11.1-14.7)
[2024-02-21 07:44] LABS: Partial Thromboplastin Time 35.3 Seconds (22.3-36.8)
--- NOTE | 2024-02-21 07:44 | ED.GENADULT ---
HPI - General Adult General Chief complaint: Extremity Injury, Upper Stated complaint: R arm swelling/pain Time Seen by Provider: 02/21/24 07:02 History of Present Illness HPI narrative: Patient is a 58-year-old male who presents ER with swelling to the right arm. Reports he woke up this morning in his arms swelling. Patient had recently been hospitalized and was discharged yesterday for issues related to COVID-19 as well as hyperkalemia. There is no chest pain or shortness of breath. No pain in the arms pressure. He has a dialysis catheter to the right chest wall. Related Data Home Medications Medication Instructions Recorded Confirmed sevelamer carbonate 800 mg tablet 1,600 mg PO TIDWM 11/24/22 02/15/24 (Renvela) pregabalin 75 mg capsule 75 mg PO DAILY 07/11/23 02/15/24 calcitriol 0.25 mcg capsule 0.25 mcg PO MOWEFR 09/19/23 02/15/24 cholecalciferol (vitamin D3) 50 2,000 unit PO DAILY 09/19/23 02/15/24 mcg (2,000 unit) tablet famotidine 20 mg tablet 10 mg PO DAILY 09/19/23 02/15/24 apixaban 5 mg tablet (Eliquis) 5 mg PO BID 01/17/24 02/15/24 aspirin 81 mg tablet 81 mg PO DAILY 01/17/24 02/15/24 guanfacine 1 mg tablet,extended 1 mg PO DAILY 01/17/24 02/15/24 release 24 hr lactulose 10 gram/15 mL oral 10 g PO TID 01/17/24 02/15/24 solution losartan 25 mg tablet 50 mg PO DAILY 01/17/24 02/15/24 metoprolol succinate 50 mg 50 mg PO DAILY 01/17/24 02/15/24 tablet,extended release 24 hr rifaximin 550 mg tablet 550 mg PO Q12H 01/17/24 02/15/24 thiamine HCl (vitamin B1) 100 mg 100 mg PO DAILY 01/17/24 02/15/24 tablet pregabalin 75 mg capsule 150 mg PO HS 02/05/24 02/15/24 Allergies Allergy/AdvReac Type Severity Reaction Status Date / Time No Known Allergies Allergy Verified 02/21/24 06:58 Review of Systems Review of Systems: All systems reviewed & are unremarkable except as noted in HPI and below Constitutional: Constitutional: Reports no additional constitutional complaints ENT: Reports system reviewed and no additional complaints, except as documented Cardiovascular: Cardiovascular: Reports no additional cardiovascular complaints Respiratory: Respiratory: Reports no additional respiratory complaints Musculoskeletal: Musculoskeletal: Denies arthralgias and Denies joint swelling Comments: Right arm swelling PMFSH Past Medical History Medical History Arthritis Bicuspid aortic valve Severe aortic stenosis status post bioprosthetic aortic valve replacement. Cerebrovascular accident (09/21/20) Thought to be embolic in nature, on long-term anticoagulation. Residual dysarthria. 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 Required temporary dialysis for a few months in spring 2019. Combined systolic and diastolic congestive heart failure Echocardiogram dated 11/03/2020 showed mildly enlarged left ventricular chamber with normal left ventricular systolic function and ejection fraction of 55 to 60% (as low as 35% on previous echos), moderate increased LV wall thickness, grade 3 diastolic dysfunction, and mild mitral and tricuspid valve regurgitation. COVID-19 Diabetes Diabetic foot ulcer Diabetic foot ulcer Dialysis patient Encounter for central line placement End-stage renal disease on peritoneal dialysis Essential hypertension Finger fracture Foot abscess, right Former smoker 50 pack year smoking history, quit in 1987. Gastroesophageal reflux disease Hiatal hernia History of hemodialysis History of acute kidney injury on chronic kidney disease requiring hemodialysis in 2019. He has had a right IJ temporary dialysis catheter placed in 01/2020 and then a tunneled dialysis catheter in 02/2020, which was removed in 06/11
[2024-02-21 08:18] VITALS: PULSE 89; RESP 13; O2SAT 100
[2024-02-21 08:31] VITALS: BP 196/118; PULSE 93; RESP 22; O2SAT 91
[2024-02-21 09:15] VITALS: PULSE 89; RESP 16
== END 2024-02-21 09:27 | disposition home or self-care (01) ==
PROVIDERS: Emergency Provider Emergency Medicine; PCP Family Medicine
DX: R60.9 Edema, unspecified (principal); I13.2 Hypertensive heart and chronic kidney disease with heart failure and with stage 5 chronic kidney disease, or end stage renal disease; E11.22 Type 2 diabetes mellitus with diabetic chronic kidney disease; N18.6 End stage renal disease; I50.40 Unspecified combined systolic (congestive) and diastolic (congestive) heart failure; Z99.2 Dependence on renal dialysis; E11.21 Type 2 diabetes mellitus with diabetic nephropathy; E11.40 Type 2 diabetes mellitus with diabetic neuropathy, unspecified; E11.319 Type 2 diabetes mellitus with unspecified diabetic retinopathy without macular edema; E11.51 Type 2 diabetes mellitus with diabetic peripheral angiopathy without gangrene; I73.9 Peripheral vascular disease, unspecified; I69.922 Dysarthria following unspecified cerebrovascular disease; E78.5 Hyperlipidemia, unspecified; N25.0 Renal osteodystrophy; M19.90 Unspecified osteoarthritis, unspecified site; K21.9 Gastro-esophageal reflux disease without esophagitis; Z95.1 Presence of aortocoronary bypass graft; Z87.891 Personal history of nicotine dependence; Z86.16 Personal history of COVID-19; Z95.2 Presence of prosthetic heart valve; Z89.612 Acquired absence of left leg above knee; Z89.611 Acquired absence of right leg above knee; Z79.82 Long term (current) use of aspirin; Z79.01 Long term (current) use of anticoagulants
CPT/HCPCS: 36415; 80048; 85025; 85610; 85730; 93971; 99284

== ENCOUNTER 2024-03-13 20:04 | Emergency (ER) | payer MEDICARE, OTHER, SELFPAY ==
[2024-03-13] VITALS (8 sets, daily range): BP systolic 163–220; BP diastolic 115–150; PULSE 90–117; RESP 13–21; TEMP 36.6; O2SAT 92–100
--- NOTE | ~2024-03-13 | XR_ITS ---
EXAMINATION: XR chest 2V DATE: 03/13/2024 21:28 INDICATION: Shortness of breath TECHNIQUE: frontal and lateral views of the chest were obtained. COMPARISON: Chest radiograph dated 02/17/2024 FINDINGS: Large-bore dual-lumen likely tunneled right internal jugular central venous catheter with distal tip at the superior cavoatrial junction. Calcified nodule at the medial right lung base consistent with o ld granulomatous disease. No other airspace opacities, pulmonary edema, pleural effusion or pneumotho rax. Heart size is normal. Median sternotomy wires, ostial markers and mediastinal surgical clips con sistent with prior coronary artery bypass grafting. There are also retained epicardial pacemaker lead s. A couple old healed left-sided rib fractures. IMPRESSION: 1. No acute cardiopulmonary disease. Reviewed, dictated and finalized at location A.
--- NOTE | ~2024-03-13 | CT_ITS ---
EXAMINATION: CT abdomen pelvis wo con DATE: 03/13/2024 22:27 INDICATION: Abdominal distention TECHNIQUE: Computed tomography (CT) of the abdomen and pelvis was performed without intravenous contr ast. Automated exposure control and iterative reconstruction technique were employed. The dose-length product was 788.23 mGy-cm. COMPARISON: None FINDINGS: Mild atelectasis at the lung bases with some subsegmental air trapping in the left lower lobe which c ould be seen with small aerated disease. Small pneumatocele in the left lower lobe. Calcified right h ilar and mediastinal lymph nodes consistent with old granulomatous disease. Mild cardiomegaly with sc attered atherosclerotic coronary artery calcific a eubanks and change of prior ascending and coronary ar joleen bypass grafting. There is also been prior aortic valve repair. There are some retained epicardia l pacemaker leads along the inferior heart. No pericardial or pleural effusion. Mild mesenteric edema and moderate amount of ascites throughout the abdomen and pelvis. Liver, spleen , pancreas and bilateral adrenal glands are normal. There is moderate bilateral renal atrophy. Bowels including the appendix are normal. Diffuse bladder wall thickening. There is extensive calcified ath erosclerosis of the aorta and many of the other arteries with likely hemodynamically significant sten osis at the right external iliac and right common femoral and left superficial femoral arteries. End seen is likely reactive mild periportal lymphadenopathy. Small fat-containing right inguinal hernia. Mild thoracic and lumbar spondylosis. IMPRESSION: 1. Moderate amount of ascites scattered throughout the abdomen and pelvis. 2. Cardiomegaly. 2. Extensive atherosclerotic disease with likely hemodynamically significant stenosis at the right ex ternal iliac, right common femoral and left superficial femoral arteries. Reviewed, dictated and finalized at location A. IMPRESSION: 1. Moderate amount of ascites scattered throughout the abdomen and pelvis. 2. Cardiomegaly. 2. Extensive atherosclerotic disease with likely hemodynamically significant st enosis at the right external iliac, right common femoral and left superficial f emoral arteries.
--- NOTE | 2024-03-13 20:14 | ECG_ITS ---
SEE SCANNED COPY FOR CONFIRMED REPORT MTDD
[2024-03-13 20:50] LABS: Basophils Absolute Auto 0.1 K/mm3 (0.0-0.1); Basophils Percent Auto 0.8 % (0.2-1.2); Eosinophils Absolute Auto 0.1 K/mm3 (0-0.3); Eosinophils Percent Auto 0.8 % (0-4.4); Hematocrit 38.2 % (42.0-52.0); Hemoglobin 11.9 g/dL (14.0-18.0); Immature Granulocyte Absolute 0.01 K/mm3 (0.00-0.031); Immature Granulocyte Percent A 0.1 % (0-0.5); Lymphocytes Absolute Auto 1.36 K/mm3 (0.9-3.2); Lymphocytes Percent Auto 14.7 % (18.3-44.2); Mean Corpuscular HGB Conc 31.2 g/dl (32-36); Mean Corpuscular Hemoglobin 27.9 pg (26-34); Mean Corpuscular Volume 89.5 fl (80-100); Neutrophils Absolute Auto 6.7 K/mm3 (1.3-6.7); Neutrophils Percent Auto 72.6 % (45.5-73.1); Platelet Count Result 207 k/mm3 (150-375); Red Blood Count 4.27 M/mm3 (4.6-6.20); Red Cell Distribution Width 20.5 % (11.5-14.5); White Blood Count 9.3 K/mm3 (4.5-10.0)
[2024-03-13 21:02] LABS: Alanine Aminotransferase 19 U/L (6-50); Alkaline Phosphatase 246 U/L (38-126); Anion Gap 17 mmol/L (4-12); Aspartate Amino Transferase 23 U/L (17-59); Blood Urea Nitrogen 59 mg/dL (9-20); Calcium 9.4 mg/dL (8.4-10.2); Carbon Dioxide 14 mmol/L (22-30); Chloride 106 mmol/L (98-107); Estimated CRCL calculation 10 ml/min; Estimated Glomerular Filt Rate 7; Glucose 110 mg/dL (65-110); Potassium 5.7 mmol/L (3.4-5.0); Sodium 137 mmol/L (137-145)
[2024-03-13] MEDS: LABETALOL HCL INJ 100 MG/20 ML VIAL 20 MG IV PUSH (22:28)
--- NOTE | 2024-03-13 23:10 | ED.SOB ---
HPI - SOB/Dyspnea General Chief Complaint: Shortness of Breath/Dyspnea Stated Complaint: SOB, abd distention Time Seen by Provider: 03/13/24 21:53 History of Present Illness HPI Narrative: Patient is a 58-year-old male who presents to the emergency department this evening complaining of shortness of breath and upper incision. Patient admits that he does have a history of liver disease and is on hemodialysis for end-stage renal disease. Patient states that once every 3-4 weeks he usually has to have some fluid drained from his abdomen and admits that he has his dialysis on Tuesdays, , and sat dialysis session is tomorrow morning. Patient states that he started to develop some abdominal distension and is concerned that his abdomen its be drained again. He denies any abdominal pain, only complains of distension. Patient does have a history of high blood pressure and does take medications he states that he takes them regularly. He denies any chest pain and currently denies any fevers or chills at home. No additional symptoms or concerns at this time. Related Data Home Medications Medication Instructions Recorded Confirmed sevelamer carbonate 800 mg tablet 1,600 mg PO TIDWM 11/24/22 02/15/24 (Renvela) pregabalin 75 mg capsule 75 mg PO DAILY 07/11/23 02/15/24 calcitriol 0.25 mcg capsule 0.25 mcg PO MOWEFR 09/19/23 02/15/24 cholecalciferol (vitamin D3) 50 2,000 unit PO DAILY 09/19/23 02/15/24 mcg (2,000 unit) tablet famotidine 20 mg tablet 10 mg PO DAILY 09/19/23 02/15/24 apixaban 5 mg tablet (Eliquis) 5 mg PO BID 01/17/24 02/15/24 aspirin 81 mg tablet 81 mg PO DAILY 01/17/24 02/15/24 guanfacine 1 mg tablet,extended 1 mg PO DAILY 01/17/24 02/15/24 release 24 hr lactulose 10 gram/15 mL oral 10 g PO TID 01/17/24 02/15/24 solution losartan 25 mg tablet 50 mg PO DAILY 01/17/24 02/15/24 metoprolol succinate 50 mg 50 mg PO DAILY 01/17/24 02/15/24 tablet,extended release 24 hr rifaximin 550 mg tablet 550 mg PO Q12H 01/17/24 02/15/24 thiamine HCl (vitamin B1) 100 mg 100 mg PO DAILY 01/17/24 02/15/24 tablet pregabalin 75 mg capsule 150 mg PO HS 02/05/24 02/15/24 Allergies Allergy/AdvReac Type Severity Reaction Status Date / Time No Known Allergies Allergy Verified 02/21/24 06:58 Review of Systems Review of Systems: All systems are reviewed and are negative unless stated otherwise in the HPI. [facility] Past Medical History Medical History Arthritis Bicuspid aortic valve Severe aortic stenosis status post bioprosthetic aortic valve replacement. Cerebrovascular accident (09/21/20) Thought to be embolic in nature, on long-term anticoagulation. Residual dysarthria. 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 Required temporary dialysis for a few months in spring 2019. Combined systolic and diastolic congestive heart failure Echocardiogram dated 11/03/2020 showed mildly enlarged left ventricular chamber with normal left ventricular systolic function and ejection fraction of 55 to 60% (as low as 35% on previous echos), moderate increased LV wall thickness, grade 3 diastolic dysfunction, and mild mitral and tricuspid valve regurgitation. COVID-19 Diabetes Diabetic foot ulcer Diabetic foot ulcer Dialysis patient Encounter for central line placement End-stage renal disease on peritoneal dialysis Essential hypertension Finger fracture Foot abscess, right Former smoker 50 pack year smoking history, quit in 1987. Gastroesophageal reflux disease Hiatal hernia History of hemodialysis History of acute kidney injury on chronic kidney disease requiring hemodialysis in 2019. He has had a right IJ temporary dialysis catheter placed in 01/2020 and then a
== END 2024-03-14 00:09 | disposition left against medical advice (07) ==
PROVIDERS: Emergency Medicine; Emergency Provider Emergency Medicine; PCP Family Medicine
DX: R06.02 Shortness of breath (principal); R14.0 Abdominal distension (gaseous); E11.51 Type 2 diabetes mellitus with diabetic peripheral angiopathy without gangrene; I70.201 Unspecified atherosclerosis of native arteries of extremities, right leg; I13.2 Hypertensive heart and chronic kidney disease with heart failure and with stage 5 chronic kidney disease, or end stage renal disease; E11.22 Type 2 diabetes mellitus with diabetic chronic kidney disease; N18.6 End stage renal disease; I50.40 Unspecified combined systolic (congestive) and diastolic (congestive) heart failure; Z99.2 Dependence on renal dialysis; E11.21 Type 2 diabetes mellitus with diabetic nephropathy; E11.40 Type 2 diabetes mellitus with diabetic neuropathy, unspecified; E11.319 Type 2 diabetes mellitus with unspecified diabetic retinopathy without macular edema; E78.2 Mixed hyperlipidemia; I69.922 Dysarthria following unspecified cerebrovascular disease; N25.0 Renal osteodystrophy; M19.90 Unspecified osteoarthritis, unspecified site; K21.9 Gastro-esophageal reflux disease without esophagitis; Z95.1 Presence of aortocoronary bypass graft; Z87.891 Personal history of nicotine dependence; Z86.16 Personal history of COVID-19; Z95.2 Presence of prosthetic heart valve; Z89.612 Acquired absence of left leg above knee; Z89.611 Acquired absence of right leg above knee; Z79.82 Long term (current) use of aspirin; Z79.01 Long term (current) use of anticoagulants; Z79.899 Other long term (current) drug therapy; I51.7 Cardiomegaly; R18.8 Other ascites; R94.31 Abnormal electrocardiogram [ECG] [EKG]
CPT/HCPCS: 36415; 71046; 74176; 80053; 85025; 93005; 96374; 99284

== ENCOUNTER 2024-04-02 07:27 | Emergency (ER) | payer OTHER, MEDICARE, SELFPAY ==
--- NOTE | ~2024-04-02 | CT_ITS ---
Clinical Indication: Chest pain, shortness of breath CT Scan of the Chest with Contrast: Technique: Contiguous sections were acquired throughout the chest after intravenous administration of 100 cc of Omnipaque 350. Dose reduction technique was used on this scan by utilizing automated expos ure control and iterative reconstruction technique. The dose-length product (DLP) was 595.77 mGy-cm. COMPARISON: 02/05/2024 Findings: There is no evidence of any significant mediastinal, hilar or axillary lymphadenopathy. There is no f illing defect in the pulmonary arterial tree to suggest pulmonary embolus. There is no aortic aneurys m. There is cardiomegaly, status post probable CABG. Stable large lipoma the left axillary region. There is no evidence of pleural or pericardial effusion. There is extensive mild groundglass opacity in the lungs. Images through the upper abdomen reveal probable mild cirrhotic change of the liver with moderate to large upper abdominal ascites. Impression: No evidence of pulmonary embolus or aortic aneurysm. Extensive mild groundglass opacity lungs, suggestive mild pulmonary edema or possibly bronchiolitis. Cardiomegaly, status post CABG. Ulcer-like change of liver with moderate to large upper abdominal ascites. Reviewed, dictated and finalized at location M. Impression: No evidence of pulmonary embolus or aortic aneurysm. Extensive mild groundglass opacity lungs, suggestive mild pulmonary edema or po ssibly bronchiolitis. Cardiomegaly, status post CABG. Ulcer-like change of liver with moderate to large upper abdominal ascites.
--- NOTE | ~2024-04-02 | XR_ITS ---
XR chest 1V portable 04/02/2024 08:26 Indication: Chest pain and weakness Procedure: AP portable chest Comparison: 03/13/2024 Findings: Cardiomegaly. Status post median sternotomy for CABG. There is a prosthetic heart valve. Ce ntral venous catheter tip in the SVC. Nodular density right mid thorax. Follow-up CT chest recommende d. There are healed left fifth and sixth rib fractures. Impression: 1: Nodular density right mid thorax. Recommend correlation with CT chest. Reviewed, dictated and finalized at location B. Impression: 1: Nodular density right mid thorax. Recommend correlation with CT chest.
[2024-04-02 07:27] VITALS: BP 167/111; PULSE 64; RESP 18; TEMP 36.1; O2SAT 97; O2SAT 99
--- NOTE | 2024-04-02 07:30 | ECG_ITS ---
Test Date: 2024-04-02 07:30:51 Measurements Intervals [place] Rate: 63 P: 4 IL: 226 QRS: 53 QRSD: 93 T: 90 QT: 463 QTc: 476 Interpretive Statements SINUS RHYTHM WITH FIRST DEGREE AV BLOCK MODERATE ST DEPRESSION [0.05+ mV ST DEPRESSION] PROLONGED QT INTERVAL No previous ECG available for comparison Electronically Signed On 04-02-2024 16:03:26 CDT by Felicia Webb M.D.
--- NOTE | 2024-04-02 07:39 | ED.CHESTPAIN ---
HPI - Chest Pain General Chief Complaint: Chest Pain Stated Complaint: SOB, CP Time Seen by Provider: 04/02/24 07:29 History of Present Illness HPI narrative: Pt with history of cabg, bicuspid valve replacement, chf, renal failure on dialysis (M,W,F), b/l LE amputations presents with constant anterior chest pain for 3 days worse with deep breath. Pt had echocardiogram yesterday but did not mention CP at that time. Pt denies SOB or fever or cough. Related Data Home Medications Medication Instructions Recorded Confirmed sevelamer carbonate 800 mg tablet 1,600 mg PO TIDWM 11/24/22 02/15/24 (Renvela) pregabalin 75 mg capsule 75 mg PO DAILY 07/11/23 02/15/24 calcitriol 0.25 mcg capsule 0.25 mcg PO MOWEFR 09/19/23 02/15/24 cholecalciferol (vitamin D3) 50 2,000 unit PO DAILY 09/19/23 02/15/24 mcg (2,000 unit) tablet famotidine 20 mg tablet 10 mg PO DAILY 09/19/23 02/15/24 apixaban 5 mg tablet (Eliquis) 5 mg PO BID 01/17/24 02/15/24 aspirin 81 mg tablet 81 mg PO DAILY 01/17/24 02/15/24 guanfacine 1 mg tablet,extended 1 mg PO DAILY 01/17/24 02/15/24 release 24 hr lactulose 10 gram/15 mL oral 10 g PO TID 01/17/24 02/15/24 solution losartan 25 mg tablet 50 mg PO DAILY 01/17/24 02/15/24 metoprolol succinate 50 mg 50 mg PO DAILY 01/17/24 02/15/24 tablet,extended release 24 hr rifaximin 550 mg tablet 550 mg PO Q12H 01/17/24 02/15/24 thiamine HCl (vitamin B1) 100 mg 100 mg PO DAILY 01/17/24 02/15/24 tablet pregabalin 75 mg capsule 150 mg PO HS 02/05/24 02/15/24 Allergies Allergy/AdvReac Type Severity Reaction Status Date / Time No Known Allergies Allergy Verified 04/02/24 07:36 Review of Systems Review of Systems: All systems reviewed & are unremarkable except as noted in HPI and below PMFSH Past Medical History Medical History Arthritis Bicuspid aortic valve Severe aortic stenosis status post bioprosthetic aortic valve replacement. Cerebrovascular accident (09/21/20) Thought to be embolic in nature, on long-term anticoagulation. Residual dysarthria. 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 Required temporary dialysis for a few months in spring 2019. Combined systolic and diastolic congestive heart failure Echocardiogram dated 11/03/2020 showed mildly enlarged left ventricular chamber with normal left ventricular systolic function and ejection fraction of 55 to 60% (as low as 35% on previous echos), moderate increased LV wall thickness, grade 3 diastolic dysfunction, and mild mitral and tricuspid valve regurgitation. COVID-19 Diabetes Diabetic foot ulcer Diabetic foot ulcer Dialysis patient Encounter for central line placement End-stage renal disease on peritoneal dialysis Essential hypertension Finger fracture Foot abscess, right Former smoker 50 pack year smoking history, quit in 1987. Gastroesophageal reflux disease Hiatal hernia History of hemodialysis History of acute kidney injury on chronic kidney disease requiring hemodialysis in 2019. He has had a right IJ temporary dialysis catheter placed in 01/2020 and then a tunneled dialysis catheter in 02/2020, which was removed in 05/2020. History of osteomyelitis History of stroke with current residual effects Hypertension Impingement syndrome of left shoulder Insulin dependent type 2 diabetes mellitus Complicated by nephropathy, neuropathy, and retinopathy. Mixed hyperlipidemia Nausea & vomiting Non-healing ulcer of foot Osteomyelitis of foot, right, acute Peripheral vascular disease Renal osteodystrophy Right hemiplegia Surgical History Surgical History Amputation of left great toe (2019) Secondary to osteomyelitis.
[2024-04-02 07:48] LABS: Basophils Absolute Auto 0.1 K/mm3 (0.0-0.1); Eosinophils Percent Auto 0.5 % (0-4.4); Hematocrit 44.6 % (42.0-52.0); Hemoglobin 13.8 g/dL (14.0-18.0); Immature Granulocyte Absolute 0.04 K/mm3 (0.00-0.031); Immature Granulocyte Percent A 0.5 % (0-0.5); Lymphocytes Absolute Auto 1.71 K/mm3 (0.9-3.2); Lymphocytes Percent Auto 19.3 % (18.3-44.2); Mean Corpuscular HGB Conc 30.9 g/dl (32-36); Mean Corpuscular Hemoglobin 27.5 pg (26-34); Mean Corpuscular Volume 88.8 fl (80-100); Monocytes Absolute Auto 0.9 K/mm3 (0.1-0.6); Monocytes Percent Auto 9.8 % (2.6-8.5); Neutrophils Absolute Auto 6.1 K/mm3 (1.3-6.7); Neutrophils Percent Auto 68.9 % (45.5-73.1); Platelet Count Result 271 k/mm3 (150-375); Red Blood Count 5.02 M/mm3 (4.6-6.20); Red Cell Distribution Width 19.8 % (11.5-14.5); White Blood Count 8.9 K/mm3 (4.5-10.0)
[2024-04-02 08:14] VITALS: BP 183/111; PULSE 62; RESP 14; O2SAT 97
[2024-04-02] MEDS: ONDANSETRON INJ 4 MG/2 ML VIAL IV PUSH (08:14)
[2024-04-02] MEDS: MORPHINE SULFATE (*CRX) 2 MG/ML INJ IV PUSH (08:14)
[2024-04-02 08:36] LABS: INR 2.7; Prothrombin Time 28.6 Seconds (11.1-14.7)
[2024-04-02 08:37] LABS: Partial Thromboplastin Time 41.9 Seconds (22.3-36.8)
[2024-04-02 08:42] LABS: Alanine Aminotransferase 106 U/L (6-50); Albumin Level 4.4 g/dL (3.5-5.1); Alkaline Phosphatase 151 U/L (38-126); Anion Gap 23 mmol/L (4-12); Aspartate Amino Transferase 127 U/L (17-59); Bilirubin,Total 1.6 mg/dL (0.2-1.3); Blood Urea Nitrogen 77 mg/dL (9-20); Calcium 9.3 mg/dL (8.4-10.2); Carbon Dioxide 12 mmol/L (22-30); Chloride 99 mmol/L (98-107); Estimated Glomerular Filt Rate 5; Glucose 74 mg/dL (65-110); Potassium 6.8 mmol/L (3.4-5.0); Sodium 134 mmol/L (137-145)
[2024-04-02 08:52] LABS: NT Pro B Type Natriuretic Pept > 30000 pg/mL (19.9-100); Troponin I 0.113 ng/mL (0.000-0.034)
[2024-04-02 08:53] LABS: D Dimer 9.37 ug/mL (<0.48)
[2024-04-02 10:20] VITALS: BP 169/104; PULSE 61; RESP 16; TEMP 36.7; O2SAT 97
--- NOTE | 2024-04-02 14:24 | ECG_ITS ---
Test Date: 2024-04-02 14:24:52 Measurements Intervals [place] Rate: 67 P: 22 ND: 188 QRS: 11 QRSD: 95 T: 126 QT: 414 QTc: 438 Interpretive Statements SINUS RHYTHM NONSPECIFIC ST & T-WAVE ABNORMALITY BASELINE ARTIFACT WHICH LIMITS INTERPRETATION Compared to ECG 04/02/2024 07:30:51 T-wave abnormality now present NO SIGNIFICANT CHANGES Electronically Signed On 04-03-2024 11:34:54 CDT by Felicia Webb M.D.
== END 2024-04-02 10:21 | disposition home or self-care (01) ==
PROVIDERS: Emergency Provider Emergency Medicine; PCP Family Medicine
DX: R07.89 Other chest pain (principal); E11.22 Type 2 diabetes mellitus with diabetic chronic kidney disease; I13.2 Hypertensive heart and chronic kidney disease with heart failure and with stage 5 chronic kidney disease, or end stage renal disease; N18.6 End stage renal disease; I50.40 Unspecified combined systolic (congestive) and diastolic (congestive) heart failure; Z99.2 Dependence on renal dialysis; E11.51 Type 2 diabetes mellitus with diabetic peripheral angiopathy without gangrene; I70.201 Unspecified atherosclerosis of native arteries of extremities, right leg; E11.21 Type 2 diabetes mellitus with diabetic nephropathy; E11.40 Type 2 diabetes mellitus with diabetic neuropathy, unspecified; E11.319 Type 2 diabetes mellitus with unspecified diabetic retinopathy without macular edema; E78.2 Mixed hyperlipidemia; I69.922 Dysarthria following unspecified cerebrovascular disease; N25.0 Renal osteodystrophy; M19.90 Unspecified osteoarthritis, unspecified site; K21.9 Gastro-esophageal reflux disease without esophagitis; Z95.2 Presence of prosthetic heart valve; Z95.1 Presence of aortocoronary bypass graft; Z87.891 Personal history of nicotine dependence; Z86.16 Personal history of COVID-19; Z89.612 Acquired absence of left leg above knee; Z89.611 Acquired absence of right leg above knee; Z79.82 Long term (current) use of aspirin; Z79.01 Long term (current) use of anticoagulants; Z79.899 Other long term (current) drug therapy; I44.0 Atrioventricular block, first degree; R94.31 Abnormal electrocardiogram [ECG] [EKG]
CPT/HCPCS: 36415; 71045; 71275; 80053; 83880; 84484; 85025; 85380; 85610; 85730; 93005; 96374; 96375; 99284; J2270; J2405; Q9967

== ENCOUNTER 2024-04-02 14:19 | Observation (INO) | payer MEDICARE, OTHER, SELFPAY ==
[2024-04-02] VITALS (14 sets, daily range): BP systolic 140–179; BP diastolic 95–110; PULSE 59–80; RESP 9–19; TEMP 35.9–36.6; O2SAT 88–100
--- NOTE | ~2024-04-02 | CT_ITS ---
EXAMINATION: CT brain wo con DATE: 04/02/2024 17:33 INDICATION: altered mental status . TECHNIQUE: Computed tomography (CT) of the head was performed without intravenous contrast. The mA wa s adjusted according to patient size. Iterative reconstruction technique was employed. The dose-lengt h product was 605.33 mGy-cm. COMPARISON: 06/18/2024. FINDINGS: No acute intracranial hemorrhage or extra-axial fluid collection. No hydrocephalus, mass, or herniation. No acute ischemic infarct. Unremarkable dural venous sinus attenuation. No acute osseous abnormality. Large retention cyst/polyp in the left maxillary sinus, the remaining aerated spaces are clear. Multiple abandoned INTENSIVE CARE UNIT REGISTERED NURSE shunts. Focal areas of right posterior frontal, right inferior frontal, right o ccipital, right cerebellar, left parietal, and left frontal encephalomalacia IMPRESSION: No acute intracranial process. Reviewed, dictated and finalized at location K.
--- NOTE | 2024-04-02 14:53 | ED.AMS ---
HPI - Altered Mental Status General Chief Complaint: Altered Mental Status Stated Complaint: altered loc Time Seen by Provider: 04/02/24 14:22 History of Present Illness HPI narrative: Pt presents from dialysis with decreased LOC. Pt was seen here this [facility] for CP, had work up and got CT to rule out PE which was negative. Pt was sent to dialysis from here. Pt apparently was difficult to arouse during treatment. Per EMS had blood sugar of 67 so give D10 and pt became more awake. Per this is his baseline mental status but was actually better than his normal while in ER this morning. Pt has no CP or complaints at this time. Related Data Home Medications Medication Instructions Recorded Confirmed sevelamer carbonate 800 mg tablet 1,600 mg PO TIDWM 11/24/22 02/15/24 (Renvela) pregabalin 75 mg capsule 75 mg PO DAILY 07/11/23 02/15/24 calcitriol 0.25 mcg capsule 0.25 mcg PO MOWEFR 09/19/23 02/15/24 cholecalciferol (vitamin D3) 50 2,000 unit PO DAILY 09/19/23 02/15/24 mcg (2,000 unit) tablet famotidine 20 mg tablet 10 mg PO DAILY 09/19/23 02/15/24 apixaban 5 mg tablet (Eliquis) 5 mg PO BID 01/17/24 02/15/24 aspirin 81 mg tablet 81 mg PO DAILY 01/17/24 02/15/24 guanfacine 1 mg tablet,extended 1 mg PO DAILY 01/17/24 02/15/24 release 24 hr lactulose 10 gram/15 mL oral 10 g PO TID 01/17/24 02/15/24 solution losartan 25 mg tablet 50 mg PO DAILY 01/17/24 02/15/24 metoprolol succinate 50 mg 50 mg PO DAILY 01/17/24 02/15/24 tablet,extended release 24 hr rifaximin 550 mg tablet 550 mg PO Q12H 01/17/24 02/15/24 thiamine HCl (vitamin B1) 100 mg 100 mg PO DAILY 01/17/24 02/15/24 tablet pregabalin 75 mg capsule 150 mg PO HS 02/05/24 02/15/24 Allergies Allergy/AdvReac Type Severity Reaction Status Date / Time No Known Allergies Allergy Verified 04/02/24 07:36 Review of Systems Review of Systems: All systems reviewed & are unremarkable except as noted in HPI and below PMFSH Past Medical History Medical History Arthritis Bicuspid aortic valve Severe aortic stenosis status post bioprosthetic aortic valve replacement. Cerebrovascular accident (09/21/20) Thought to be embolic in nature, on long-term anticoagulation. Residual dysarthria. 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 Required temporary dialysis for a few months in spring 2019. Combined systolic and diastolic congestive heart failure Echocardiogram dated 11/03/2020 showed mildly enlarged left ventricular chamber with normal left ventricular systolic function and ejection fraction of 55 to 60% (as low as 35% on previous echos), moderate increased LV wall thickness, grade 3 diastolic dysfunction, and mild mitral and tricuspid valve regurgitation. COVID-19 Diabetes Diabetic foot ulcer Diabetic foot ulcer Dialysis patient Encounter for central line placement End-stage renal disease on peritoneal dialysis Essential hypertension Finger fracture Foot abscess, right Former smoker 50 pack year smoking history, quit in 1987. Gastroesophageal reflux disease Hiatal hernia History of hemodialysis History of acute kidney injury on chronic kidney disease requiring hemodialysis in 2019. He has had a right IJ temporary dialysis catheter placed in 01/2020 and then a tunneled dialysis catheter in 02/2020, which was removed in 05/2020. History of osteomyelitis History of stroke with current residual effects Hypertension Impingement syndrome of left shoulder Insulin dependent type 2 diabetes mellitus Complicated by nephropathy, neuropathy, and retinopathy. Mixed hyperlipidemia Nausea & vomiting Non-healing ulcer of foot Osteomyelitis of foot, right, acute Peripheral vascular disease Renal osteo
--- NOTE | 2024-04-02 16:03 | PC.NURSE ---
Patient unresponsive and waking up to vigorous painful stimuli. states that while his baseline is sleepy and tired but he typically wakes up and talks and then goes back to sleep. patient appears to be having frequent apnic episodes and desturations along with needing to be sternal rubbed to get to open eyes but patient goes right back to sleep when pain stops.
[2024-04-02 16:07] LABS: Glucose Point of Care 82 mg/dl (65-105)
[2024-04-02 16:15] LABS: Basophils Absolute Auto 0.1 K/mm3 (0.0-0.1); Basophils Percent Auto 1.1 % (0.2-1.2); Eosinophils Percent Auto 0.6 % (0-4.4); Hematocrit 37.1 % (42.0-52.0); Hemoglobin 11.7 g/dL (14.0-18.0); Immature Granulocyte Absolute 0.03 K/mm3 (0.00-0.031); Immature Granulocyte Percent A 0.5 % (0-0.5); Lymphocytes Percent Auto 21.3 % (18.3-44.2); Mean Corpuscular HGB Conc 31.5 g/dl (32-36); Mean Corpuscular Hemoglobin 27.4 pg (26-34); Mean Corpuscular Volume 86.9 fl (80-100); Mean Platelet Volume 10.1 fl (7.4-10.4); Monocytes Absolute Auto 1.1 K/mm3 (0.1-0.6); Monocytes Percent Auto 16.3 % (2.6-8.5); Neutrophils Percent Auto 60.2 % (45.5-73.1); Platelet Count Result 185 k/mm3 (150-375); Red Blood Count 4.27 M/mm3 (4.6-6.20); Red Cell Distribution Width 19.4 % (11.5-14.5); White Blood Count 6.6 K/mm3 (4.5-10.0)
[2024-04-02 16:27] LABS: Alanine Aminotransferase 110 U/L (6-50); Albumin Level 3.3 g/dL (3.5-5.1); Alkaline Phosphatase 127 U/L (38-126); Anion Gap 11 mmol/L (4-12); Aspartate Amino Transferase 108 U/L (17-59); Bilirubin,Total 1.2 mg/dL (0.2-1.3); Blood Urea Nitrogen 38 mg/dL (9-20); Calcium 8.3 mg/dL (8.4-10.2); Carbon Dioxide 20 mmol/L (22-30); Chloride 103 mmol/L (98-107); Estimated Glomerular Filt Rate 10; Glucose 88 mg/dL (65-110); Potassium 4.4 mmol/L (3.4-5.0); Sodium 134 mmol/L (137-145)
[2024-04-02 17:23] LABS: Alveolar/Arterial O2 Gradient 91.2 mmHg; Fractional Inspired Oxygen 32 %; HCO3 ABG 17.9 mEq/l (22.0-26.0); Oxygen Content ABG 17.4 %vol (16.0-22.0); Oxyhemoglobin 96.8 % THb (90.0-100.0); PCO2 ABG 27.7 mmHg (35.0-45.0); PO2 ABG 104.6 mmHg (80.0-100.0); PO2 FiO2 Ratio Arterial Blood 3.27 %; Total Hemoglobin 12.7 g/dL (12.0-18.0); pH ABG 7.429 (7.350-7.450)
[2024-04-02 17:24] LABS: Device NASAL CANNULA; Modified Allen's Test Pass; Site Drawn LEFT RADIAL
--- NOTE | 2024-04-02 17:24 | PC.NURSE ---
PT TO CT AT THIS TIME
[2024-04-02 18:23] LABS: Glucose Point of Care 59 mg/dl (65-105)
[2024-04-02] MEDS: DEXTROSE 50% 25 GM/50 ML SYRINGE IV PUSH (18:30)
[2024-04-02 18:53] LABS: Glucose Point of Care 110 mg/dl (65-105)
[2024-04-02] MEDS: DEXTROSE 10% 1,000 ML 20 ML IV CONT (19:38)
[2024-04-02 20:20] LABS: Glucose Point of Care 83 mg/dl (65-105)
--- NOTE | 2024-04-02 21:01 | PM.IMHP ---
H&P: HPI History of Present Illness Date/Time: 04/02/24 21:01 Chief Complaint: . Confusion Narrative: Patient is a 58-year-old male with bilateral lower extremity [id number] amputee with past history of coronary disease, history of CABG, bicuspid valve replacement, history of congestive heart failure, history of renal failure on dialysis Monday. Complains of chest pain and shortness of breath for the last few days and patient has been complaining of some cough and dizziness patient appeared much more confused today. Had a 2D echo done yesterday. Has been compliant with any med all the medication. Has history of diabetes and previous history of chronic anemia. Also history of smoking which according to him is trying to quit. Today patient was during his dialysis has the liver more confusion and was difficulty arousing patient's EMS checked the blood sugar which were 67 sewed D10 was given patient became more awake and was brought to the hospital for further workup and evaluation Review of Systems Review of Systems: All systems reviewed & are unremarkable except as noted in HPI and below PMFSH Past Medical History Medical History Arthritis Bicuspid aortic valve Severe aortic stenosis status post bioprosthetic aortic valve replacement. Cerebrovascular accident (09/21/20) Thought to be embolic in nature, on long-term anticoagulation. Residual dysarthria. 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 Required temporary dialysis for a few months in spring 2019. Combined systolic and diastolic congestive heart failure Echocardiogram dated 11/03/2020 showed mildly enlarged left ventricular chamber with normal left ventricular systolic function and ejection fraction of 55 to 60% (as low as 35% on previous echos), moderate increased LV wall thickness, grade 3 diastolic dysfunction, and mild mitral and tricuspid valve regurgitation. COVID-19 Diabetes Diabetic foot ulcer Diabetic foot ulcer Dialysis patient Encounter for central line placement End-stage renal disease on peritoneal dialysis Essential hypertension Finger fracture Foot abscess, right Former smoker 50 pack year smoking history, quit in 1987. Gastroesophageal reflux disease Hiatal hernia History of hemodialysis History of acute kidney injury on chronic kidney disease requiring hemodialysis in 2019. He has had a right IJ temporary dialysis catheter placed in 01/2020 and then a tunneled dialysis catheter in 02/2020, which was removed in 05/2020. History of osteomyelitis History of stroke with current residual effects Hypertension Impingement syndrome of left shoulder Insulin dependent type 2 diabetes mellitus Complicated by nephropathy, neuropathy, and retinopathy. Mixed hyperlipidemia Nausea & vomiting Non-healing ulcer of foot Osteomyelitis of foot, right, acute Peripheral vascular disease Renal osteodystrophy Right hemiplegia Surgical History Surgical History Amputation of left great toe (2019) Secondary to osteomyelitis. History of aortic valve replacement (07/24/20) 25 mm Inspiris bioprosthetic valve per Dr. Nam Daniels at [facility]. History of carpal tunnel release History of coronary artery bypass graft x 1 (07/24/20) Saphenous vein graft to obtuse marginal per Dr. Nam Daniels at [facility]. History of tonsillectomy Hx of AKA (above knee amputation) bilateral S/p bilateral carpal tunnel release right 1988 left 1991 left 1991 S/P CABG x 1 (~07/24/20) S/P decompression of ulnar nerve at elbow 1998 Family History Family History Mother Family history of arthri
--- NOTE | 2024-04-02 21:38 | ADMGEN ---
This patient, Pankaj Bautista, was admitted to IMU Room 206-02. Patient/family oriented to hospital policies and general routines including ID bracelet, bed and alarms, visiting hours, pain management, procedures, bathroom and other care routines, personal items, smoking policy, room service/diet, and visiting hours. Information on how to activate the Rapid Response Team has been discussed. Patient/Family are encouraged to report perceived risks to care and to ask questions if they do not understand what they are told or what they should do. Patient arrived to the floor at 2100
[2024-04-02 21:57] LABS: Glucose Point of Care 67 mg/dl (65-105)
[2024-04-03] VITALS (11 sets, daily range): BP systolic 128–155; BP diastolic 69–98; PULSE 62–74; RESP 16–20; TEMP 36.6–36.8; O2SAT 93–100
[2024-04-03 00:24] LABS: Glucose Point of Care 73 mg/dl (65-105)
[2024-04-03 01:58] LABS: Glucose Point of Care 73 mg/dl (65-105)
[2024-04-03 04:10] LABS: Glucose Point of Care 74 mg/dl (65-105)
[2024-04-03 04:43] LABS: Hematocrit 38.9 % (42.0-52.0); Hemoglobin 12.1 g/dL (14.0-18.0); Mean Corpuscular HGB Conc 31.1 g/dl (32-36); Mean Corpuscular Hemoglobin 27.2 pg (26-34); Mean Corpuscular Volume 87.4 fl (80-100); Mean Platelet Volume 10.5 fl (7.4-10.4); Platelet Count Result 181 k/mm3 (150-375); Red Blood Count 4.45 M/mm3 (4.6-6.20); Red Cell Distribution Width 19.8 % (11.5-14.5)
[2024-04-03 04:54] LABS: Hemoglobin A1C 5.2 % (<5.7)
[2024-04-03 05:03] LABS: Alanine Aminotransferase 122 U/L (6-50); Alkaline Phosphatase 115 U/L (38-126); Anion Gap 12 mmol/L (4-12); Aspartate Amino Transferase 116 U/L (17-59); Bilirubin,Total 1.2 mg/dL (0.2-1.3); Blood Urea Nitrogen 43 mg/dL (9-20); Calcium 8.6 mg/dL (8.4-10.2); Carbon Dioxide 19 mmol/L (22-30); Chloride 102 mmol/L (98-107); Cholesterol 124 mg/dL (0-200); Estimated Glomerular Filt Rate 8; Glucose 68 mg/dL (65-110); HDL Direct 30 mg/dL; Potassium 4.6 mmol/L (3.4-5.0); Sodium 133 mmol/L (137-145); Triglycerides 124 mg/dL (<150)
[2024-04-03 05:12] LABS: LDL Cholesterol Direct 56 mg/dL
[2024-04-03 08:36] LABS: Glucose Point of Care 77 mg/dl (65-105)
[2024-04-03] MEDS: ATORVASTATIN 40 MG TABLET PO (08:55)
[2024-04-03] MEDS: PANTOPRAZOLE 40 MG TABLET PO (08:56)
[2024-04-03 09:27] LABS: Hepatitis B Surface Antigen Negative (Negative)
[2024-04-03 10:55] LABS: Glucose Point of Care 176 mg/dl (65-105)
[2024-04-03 12:27] LABS: Glucose Point of Care 128 mg/dl (65-105)
--- NOTE | 2024-04-03 12:43 | PM.IMPN ---
Progress Note: A&P Assessment and Plan (1) Altered mental status: Code(s): R41.82 - Altered mental status, unspecified Status: Acute (2) Hypoglycemia: Code(s): E16.2 - Hypoglycemia, unspecified Status: Acute (3) Chronic renal disease: Code(s): N18.9 - Chronic kidney disease, unspecified Status: Acute (4) Below-knee amputation of both lower extremities: Code(s): S88.111A - Complete traumatic amputation at level between knee and ankle, right lower leg, initial encounter; S88.112A - Complete traumatic amputation at level between knee and ankle, left lower leg, initial encounter Status: Acute (5) Hyperkalemia: Code(s): E87.5 - Hyperkalemia Status: Acute Plan Have metabolic encephalopathy versus hypoglycemia Continue monitor blood sugars. Will discontinue IV fluids Starting patient on renal diet patient is alert and awake x3 answering questions appropriately Hemoglobin A1c is 5.4 Not on any antidiabetic medications or insulin Monitor albumin' Monitoring of mental status. Heart failure with reduced ejection fraction. EKG reviewed Chest x-ray TTE EF of 35% Patient educated about titrating diuretics at home based on weight blood pressure and symptoms. Optimize blood pressure < 130/80 Fall risk assessment Routine follow-up with the primary care physician and branch service leader recommended Chronic renal failure stage IV end-stage Chronic dialysis serum creatinine 5.9/7.3 Avoid nephrotoxic drugs. Monitor antihypertensive drug therapy. Avoid NSAIDs. Routine CMP monitoring GFR. Monitor electrolytes especially potassium. 4.6 Pharmacy does medications. Routine follow-up with Nephrology Hypoglycemia Routine glucose monitoring. Watch for Hypoglycemia sinus symptoms Watch for peripheral neuropathy HB A1c levels normal Antiplatelet therapy with aspirin Eliquis and aspirin History of abnormal LFTs will continue to monitor may need ultrasound of the liver and gallbladder History of hypertension continue metoprolol and losartan. History of neuropathy continue Lyrica. history of gastric reflux continue famotidine and omeprazole Subjective Date/time seen: 04/03/24 12:43 Interval history: He denies any complaints he feels that Review of Systems Review of Systems: All systems reviewed & are unremarkable except as noted in HPI and below Exam Narrative: GENERAL: Chronically ill-appearing, well-nourished, and in no acute distress. HEAD: Normocephalic, atraumatic. ENT: Mucous membranes moist. CHEST: Clear to auscultation. No respiratory distress. HEART: Regular rate and rhythm. Normal peripheral pulses in upper extremities. ABDOMEN: Soft, nontender, nondistended. EXTREMITIES: Normal range of motion. 1+ edema of the right upper extremity. Bilateral AKA. SKIN: Warm, dry, no rash. NEURO: Alert and oriented x3. PSYCH: Normal mood and affect. Objective Data Vital Signs Vital Signs: Vital Signs - 24 hr 04/02/24 14:24 04/02/24 14:31 04/02/24 20:14 Temperature 36.1 C L 35.9 C L Pulse Rate 68 59 L Respiratory Rate 18 14 Blood Pressure 179/108 H 140/95 H Pulse Oximetry 100 92 97 Oxygen Delivery Room Air Nasal Cannula Oxygen Flow Rate 2 Fraction of Inspired Oxygen 04/02/24 16:31 04/02/24 16:46 04/02/24 17:16 Temperature Pulse Rate 64 65 64 Respiratory Rate 18 18 16 Blood Pressure 178/105 H 170/105 H 166/110 H Pulse Oximetry 100 100 100 Oxygen Delivery Oxygen Flow Rate Fraction of Inspired Oxygen 04/02/24 17:34 04/02/24 18:01 04/02/24 18:15 Temperature Pulse Rate 64 63 63 Respiratory Rate 13 19 10 L Blood Pressure 174/99 H 168/99 H Pulse Oximetry Oxygen Delivery Oxygen Flow Rate Fraction of Inspired Oxygen 04/02/24 18:16 04/02/24 18:31 04/02/24 21:00 Temperature 36.6 C Pulse Rate 63 63 80 Respiratory Rate 9 L 15 12 Blood Pressure 158/103 H 178/98 H 153/95 H P
[2024-04-03] MEDS: METOPROLOL SUCCINATE EXT REL 50 MG TABCR PO (14:05)
[2024-04-03] MEDS: FAMOTIDINE 10 MG TABLET PO (14:05)
[2024-04-03] MEDS: LOSARTAN POTASSIUM 25 MG TABLET 50 MG PO (14:05)
[2024-04-03] MEDS: rifAXIMin 550 MG TABLET PO ×2 (14:05→21:38)
[2024-04-03 14:09] LABS: Glucose Point of Care 135 mg/dl (65-105)
--- NOTE | 2024-04-03 16:25 | PM.CNNEP ---
Assessment and Plan Assessment and plan (1) End stage renal disease: Code(s): N18.6 - End stage renal disease Status: Chronic Assessment and Plan: HD tomorrow continue outpatient T/T/S dialysis schedule while hospitalized follow electrolytes, volume status, and clearance (2) Altered mental status: Code(s): R41.82 - Altered mental status, unspecified Status: Acute Assessment and Plan: toxic metabolic encephalopathy versus hypoglycemia favor the latter given improvement in symptoms with improvement in blood sugars CT of head negative mentation appears back to baseline continue supportive therapy (3) Anemia: Qualifiers: Anemia type: due to chronic kidney disease Chronic kidney disease stage: stage 5, not on chronic dialysis Qualified Code(s): N18.5 - Chronic kidney disease, stage 5; D63.1 - Anemia in chronic kidney disease Code(s): D64.9 - Anemia, unspecified Status: Chronic Assessment and Plan: due to ESRD Epogen with dialysis follow trend of H/H (4) Hypertension: Code(s): I10 - Essential (primary) hypertension Status: Chronic Assessment and Plan: at baseline, his BP is quite erratic resume home medications follow trend of hemodynamics (5) Diabetes: Code(s): E11.9 - Type 2 diabetes mellitus without complications Status: Chronic Assessment and Plan: despite history, diet controlled at this time no longer on any medications for this follow accuchecks given issues with hypoglycemia glycemic control per hospitalistis I will continue follow the patient with you while he remains hospitalized and make further recommendations as needed. Thank you for allowing me to participate in the care of this patient. History of Present Illness Reason for Consult Consult date: 04/03/24 Reason for consult: end stage renal disease Chief Complaint Chief complaint: Altered loc History of Present Illness Narrative: The patient is a 58-year-old male with an extensive past medical history as outlined below who presented to [facility] Emergency room due altered mental status. Ivan seen earlier today in the emergency room for chest pain and mild shortness of breath. Evaluation at that time demonstrated labs consistent with his known history of end-stage renal disease and he did undergo a CT scan of the chest with PE protocol that was negative as well. He was subsequently discharged to his outpatient dialysis unit to resume his dialysis treatment schedule. Apparently, during his dialysis treatment, he had an episode of altered mentation. EMS was called and he was transported from his dialysis unit to the emergency room for further assessment. It was noted that he was somewhat hypoglycemic and his blood sugars improved after supplemental dextrose was given. However, his mentation quickly deteriorated again in association with a drop in his blood sugar. Subsequent evaluation including ABG and CT scan of the head did not show any acute abnormalities and was felt that his fluctuating blood sugars may be more responsible for his fluctuating mentation. He was started on dextrose fluids with frequent Accu-Cheks and subsequent admission to the hospital for further evaluation and therapy. Since his admission, his mentation has improved with stabilization of his blood sugar levels. No other acute issues or symptoms were noted by the patient since his hospitalization. Renal consultation was requested due to his end-stage renal disease. The patient is quite familiar to me as I take care of his outpatient dialysis needs. He previously was doing peritoneal dialysis at home through [facility] under my care. He was initially initiated on renal replacement therapy via hemodialysis and subsequently transitioned to peritoneal dialysis at a later date. From the perspective of his peritoneal di
[2024-04-03 16:32] LABS: Glucose Point of Care 112 mg/dl (65-105)
[2024-04-03] MEDS: SEVELAMER CARBONATE 800 MG TABLET 1600 MG PO (17:00)
[2024-04-03] MEDS: APIXABAN 5 MG TABLET PO (17:00)
--- NOTE | 2024-04-03 18:15 | PC.NURSE ---
This patient, Pankaj Bautista, was transferred to [[id number] ] on 04/03/24 at 1815. Personal belongings sent with patient. Report given to [ JESENIA Alston @ [phone]]. Appropriate documentation sent with patient.
--- NOTE | 2024-04-03 18:53 | PC.NURSE ---
This patient, Pankaj Bautista, was received from [IMU ] on 04/03/24 at 1854. Patient/family oriented to unit policies and routines
[2024-04-03 20:25] LABS: Glucose Point of Care 129 mg/dl (65-105)
[2024-04-03] MEDS: VENLAFAXINE HCL 75 MG TABLET PO (21:38)
[2024-04-03] MEDS: PREGABALIN (*CRX) 75 MG CAPSULE 150 MG PO (21:39)
[2024-04-04] VITALS (19 sets, daily range): BP systolic 111–156; BP diastolic 65–103; PULSE 50–73; RESP 16–18; TEMP 36.3–37; O2SAT 100
[2024-04-04 05:22] LABS: Basophils Absolute Auto 0.1 K/mm3 (0.0-0.1); Eosinophils Absolute Auto 0.1 K/mm3 (0-0.3); Eosinophils Percent Auto 0.9 % (0-4.4); Hematocrit 39.2 % (42.0-52.0); Hemoglobin 11.8 g/dL (14.0-18.0); Immature Granulocyte Absolute 0.03 K/mm3 (0.00-0.031); Immature Granulocyte Percent A 0.4 % (0-0.5); Lymphocytes Absolute Auto 1.53 K/mm3 (0.9-3.2); Lymphocytes Percent Auto 22.6 % (18.3-44.2); Mean Corpuscular HGB Conc 30.1 g/dl (32-36); Mean Corpuscular Hemoglobin 26.6 pg (26-34); Mean Corpuscular Volume 88.3 fl (80-100); Mean Platelet Volume 10.1 fl (7.4-10.4); Monocytes Absolute Auto 1.1 K/mm3 (0.1-0.6); Monocytes Percent Auto 16.7 % (2.6-8.5); Neutrophils Absolute Auto 3.9 K/mm3 (1.3-6.7); Neutrophils Percent Auto 58.4 % (45.5-73.1); Platelet Count Result 190 k/mm3 (150-375); Red Blood Count 4.44 M/mm3 (4.6-6.20); Red Cell Distribution Width 19.9 % (11.5-14.5); White Blood Count 6.8 K/mm3 (4.5-10.0)
[2024-04-04 06:33] LABS: Hepatitis B Surface Anti Res Negative
[2024-04-04 07:05] LABS: Alanine Aminotransferase 84 U/L (6-50); Alkaline Phosphatase 188 U/L (38-126); Anion Gap 11 mmol/L (4-12); Aspartate Amino Transferase 51 U/L (17-59); Blood Urea Nitrogen 49 mg/dL (9-20); Calcium 8.5 mg/dL (8.4-10.2); Carbon Dioxide 19 mmol/L (22-30); Chloride 103 mmol/L (98-107); Estimated Glomerular Filt Rate 6; Glucose 102 mg/dL (65-110); Potassium 4.5 mmol/L (3.4-5.0); Sodium 133 mmol/L (137-145)
[2024-04-04] MEDS: SODIUM CHLORIDE 0.9% IV 1,000 ML 999 ML IV CONT (07:15)
--- NOTE | 2024-04-04 08:30 | PM.PNNEP ---
Progress Note: A&P Assessment and Plan (1) End stage renal disease: Code(s): N18.6 - End stage renal disease Status: Chronic Assessment and Plan: HD today continue outpatient T/T/S dialysis schedule while hospitalized follow electrolytes, volume status, and clearance (2) Altered mental status: Code(s): R41.82 - Altered mental status, unspecified Status: Acute Assessment and Plan: resolving/resolved toxic metabolic encephalopathy versus hypoglycemia favor the latter given improvement in symptoms with improvement in blood sugars CT of head negative mentation appears back to baseline continue supportive therapy (3) Anemia: Qualifiers: Anemia type: due to chronic kidney disease Chronic kidney disease stage: stage 5, not on chronic dialysis Qualified Code(s): N18.5 - Chronic kidney disease, stage 5; D63.1 - Anemia in chronic kidney disease Code(s): D64.9 - Anemia, unspecified Status: Chronic Assessment and Plan: due to ESRD Epogen with dialysis follow trend of H/H (4) Hypertension: Code(s): I10 - Essential (primary) hypertension Status: Chronic Assessment and Plan: at baseline, his BP is quite erratic resume home medications follow trend of hemodynamics (5) Diabetes: Code(s): E11.9 - Type 2 diabetes mellitus without complications Status: Chronic Assessment and Plan: despite history, diet controlled at this time no longer on any medications for this follow accuchecks given issues with hypoglycemia glycemic control per hospitalistis Will continue to follow. Subjective Date/time seen: 04/04/24 08:30 Interval history: Follow-up for end stage renal disease on hemodialysis. Tolerating dialysis treatment at the time of my visit (seen on HD at 8:20AM); blood sugars have been relatively stable since admission and mentation seems back to baseline as well; no other issues/events overnight or earlier this AM. Exam Narrative: General: WD/WN male in NAD Heart: normal S1 and S2; no rub Lungs: cleat to auscultation Abdomen: soft, nontender, mild distended, positive bowel sounds Extremities: no cyanosis or clubbing; s/p bilateral AKA Skin: warm and dry Objective Data Vital Signs Vital Signs: Vital Signs Temp Pulse Resp BP Pulse Ox O2 Del Method 04/04/24 08:30 70 139/88 04/04/24 08:15 73 135/102 H 04/04/24 07:35 97.6 F 68 16 149/95 H 04/04/24 07:47 67 149/96 H 04/04/24 04:00 98.2 F 72 18 151/81 H 100 04/03/24 20:00 98.1 F 74 18 155/85 H 100 04/03/24 16:00 98.3 F 70 18 129/69 100 04/03/24 14:05 68 Intake/Output Intake/Output: Intake & Output 04/01/24 04/02/24 04/03/24 04/04/24 23:59 23:59 23:59 23:59 Intake Total 1149 240 Output Total 0 3500 Balance 1149 -3260 Meds/Results Medications: Active Medications Generic Name Dose Route Start Last Admin Trade Name Freq PRN Reason Stop Dose Admin Apixaban 5 mg 04/03/24 17:00 04/04/24 11:41 Apixaban 5 Mg Tablet PO 5 mg BID ALEX Administration Aspirin 81 mg 04/04/24 08:00 04/04/24 11:40 Aspirin 81 Mg Chewable Tablet PO 81 mg DAILY@0800 ALEX Administration Atorvastatin Calcium 40 mg 04/03/24 09:00 04/04/24 11:42 Atorvastatin 40 Mg Tablet PO 40 mg DAILY ALEX Administration Calcitriol 0.25 mcg 04/04/24 09:00 04/04/24 11:47 Calcitriol 0.25 Mcg Capsule PO 0.25 mcg TuThSa@0900 ALEX Administration Famotidine 10 mg 04/03/24 14:00 04/04/24 11:42 Famotidine 10 Mg Tablet PO 10 mg DAILY ALEX Administration Guanfacine HCl 1 mg 04/04/24 09:00 04/04/24 11:41 Guanfacine Hcl 1 Mg Tablet PO 1 mg QAM ALEX Administration Albumin Human 50 mls @ 999 mls/hr 04/04/24 06:39 Albutein IVPB 05/04/24 06:38 Q10M PRN HYPOTENSION Lactulose 10 gm 04/03/24 17:00 04/04/24 12:16 Lactulos
--- NOTE | 2024-04-04 08:30 | P.PNNP_ITS ---
Progress Note: A&P Assessment and Plan (1) End stage renal disease: Code(s): N18.6 - End stage renal disease Status: Chronic Assessment and Plan: * HD today * continue outpatient T/T/S dialysis schedule while hospitalized * follow electrolytes, volume status, and clearance (2) Altered mental status: Code(s): R41.82 - Altered mental status, unspecified Status: Acute Assessment and Plan: * resolving/resolved * toxic metabolic encephalopathy versus hypoglycemia * favor the latter given improvement in symptoms with improvement in blood sugars * CT of head negative * mentation appears back to baseline * continue supportive therapy (3) Anemia: Qualifiers: Anemia type: due to chronic kidney disease Chronic kidney disease stage: stage 5, not on chronic dialysis Qualified Code(s): N18.5 - Chronic kidney disease, stage 5; D63.1 - Anemia in chronic kidney disease Code(s): D64.9 - Anemia, unspecified Status: Chronic Assessment and Plan: * due to ESRD * Epogen with dialysis * follow trend of H/H (4) Hypertension: Code(s): I10 - Essential (primary) hypertension Status: Chronic Assessment and Plan: * at baseline, his BP is quite erratic * resume home medications * follow trend of hemodynamics (5) Diabetes: Code(s): E11.9 - Type 2 diabetes mellitus without complications Status: Chronic Assessment and Plan: * despite history, diet controlled at this time * no longer on any medications for this * follow accuchecks given issues with hypoglycemia * glycemic control per hospitalistis Will continue to follow. Subjective Date/time seen: 04/04/24 08:30 Interval history: Follow-up for end stage renal disease on hemodialysis. Tolerating dialysis treatment at the time of my visit (seen on HD at 8:20AM); blood sugars have been relatively stable since admission and mentation seems back to baseline as well; no other issues/events overnight or earlier this AM. Exam Narrative: General: WD/WN male in NAD Heart: normal S1 and S2; no rub Lungs: cleat to auscultation Abdomen: soft, nontender, mild distended, positive bowel sounds Extremities: no cyanosis or clubbing; s/p bilateral AKA Skin: warm and dry Objective Data Vital Signs Vital Signs: Vital Signs Temp Pulse Resp BP Pulse Ox O2 Del Method 04/04/24 08:30 70 139/88 06/13/24 08:15 73 135/102 H 04/04/24 07:35 97.6 F 68 16 149/95 H 04/04/24 07:47 67 149/96 H 04/04/24 04:00 98.2 F 72 18 151/81 H 100 04/03/24 20:00 98.1 F 74 18 155/85 H 100 04/03/24 16:00 98.3 F 70 18 129/69 100 04/03/24 14:05 68 Intake/Output Intake/Output: Intake & Output 04/01/24 04/02/24 04/03/24 04/04/24 23:59 23:59 23:59 23:59 Intake Total 1149 240 Output Total 0 3500 Balance 1149 -3260 Meds/Results Medications: Active Medications Generic Name Dose Route Start Last Admin Trade Name Nathanq PRN Reason Stop Dose Admin Apixaban 5 mg 04/03/24 17:00 04/04/24 11:41 Apixaban 5 Mg Tablet PO 5 mg BID ALEX Administration
[2024-04-04 09:07] LABS: Glucose Point of Care 98 mg/dl (65-105)
--- NOTE | 2024-04-04 10:16 | PM.DS ---
DS: Admitting Diagnosis Discharge Date 04/04/2024 Admitting Diagnosis Hypoglycemia and end-stage renal disease DS: Discharge Diagnosis Discharge Diagnosis (1) Altered mental status: Code(s): R41.82 - Altered mental status, unspecified Status: Acute (2) Hypoglycemia: Code(s): E16.2 - Hypoglycemia, unspecified Status: Acute (3) Chronic renal disease: Code(s): N18.9 - Chronic kidney disease, unspecified Status: Acute (4) Below-knee amputation of both lower extremities: Code(s): S88.111A - Complete traumatic amputation at level between knee and ankle, right lower leg, initial encounter; S88.112A - Complete traumatic amputation at level between knee and ankle, left lower leg, initial encounter Status: Acute (5) Hyperkalemia: Code(s): E87.5 - Hyperkalemia Status: Acute DS: Summary Hospital Course Hospital Course: Patient is a 58-year-old male who was admitted to the hospital with altered mental status and confusion initial diagnosis of metabolic encephalopathy and hypoglycemia patient was seen by the paramedics at home when he was disoriented patient was status post dialysis at that time sugars were about 67 D10 was given brought to the emergency room and admitted patient has bilateral [id number] amputee hep and has been eating okay according to the patient. During hospital stay. Started on dextrose drip did very well patient hemoglobin A1c is 5.4 patient is not a diabetic not taking any oral hypoglycemics or insulin. I am still unsure why he was hypoglycemic otherwise medically stable. Patient had history of end-stage renal disease currently on dialysis. Patient also has history of congestive heart failure patient's last EF of 35% patient's blood pressure has been optimal. During hospital stay patient's electrolytes and serum creatinine was monitored closely. Patient also on Eliquis to aspirin which he will continue also has history of hypertension currently on metoprolol and losartan. Patient is cleared for discharge will follow-up with the primary care physician and Nephrology as an outpatient finishing up his dialysis day Status at Discharge Cognitive/behavioral status at discharge: Stable Time Spent with Patient Time attestation: Total time spent providing and/or coordinating discharge services: Exam Narrative: GENERAL: Chronically ill-appearing, well-nourished, and in no acute distress. HEAD: Normocephalic, atraumatic. ENT: Mucous membranes moist. CHEST: Clear to auscultation. No respiratory distress. HEART: Regular rate and rhythm. Normal peripheral pulses in upper extremities. ABDOMEN: Soft, nontender, nondistended. EXTREMITIES: Normal range of motion. 1+ edema of the right upper extremity. Bilateral AKA. SKIN: Warm, dry, no rash. NEURO: Alert and oriented x3. PSYCH: Normal mood and affect. DS: Data Data Completed and Pending Labs on day of discharge: Labs from last 24 hours 04/04/24 04/04/24 04/03/24 08:42 04:54 20:02 WBC 6.8 RBC 4.44 L Hgb 11.8 L Hct 39.2 L MCV 88.3 MCH 26.6 MCHC 30.1 L RDW 19.9 H Plt Count 190 MPV 10.1 Immature Gran % (Auto) 0.4 Neut % (Auto) 58.4 Lymph % (Auto) 22.6 [place] % (Auto) 16.7 H Eos % (Auto) 0.9 Baso % (Auto) 1.0 Lymph # (Auto) 1.53 [place] # (Auto) 1.1 H Eos # (Auto) 0.1 Baso # (Auto) 0.1 Abs Immat Gran (auto) 0.03 Absolute Neuts (auto) 3.9 Absolute Nucleated RBC 0.000 Nucleated RBC % 0.0 Sodium 133 L Potassium 4.5 Chloride 103 Carbon Dioxide 19 L Anion Gap 11 BUN 49 H Creatinine 8.80 H Estim Creat Clear Calc Not Reportable Estimated GFR 6 L Glucose 102 POC Capillary Glucose 98 129 H Calcium 8.5 Total Bilirubin 1.0 AST 51 ALT 84 H Alkaline Phosphatase 188 H Total Protein 6.0 L Albumin 3.0 L Hep Bs Antibody Negative 04/03/24 04/03/24 04/03/24 16:24 14:
[2024-04-04] MEDS: SEVELAMER CARBONATE 800 MG TABLET 1600 MG PO (11:40)
[2024-04-04] MEDS: ASPIRIN 81 MG CHEWABLE TABLET PO (11:40)
[2024-04-04] MEDS: THIAMINE HCL 100 MG TABLET PO (11:41)
[2024-04-04] MEDS: PANTOPRAZOLE 40 MG TABLET PO (11:41)
[2024-04-04] MEDS: VENLAFAXINE HCL 75 MG TABLET PO (11:41)
[2024-04-04] MEDS: APIXABAN 5 MG TABLET PO (11:41)
[2024-04-04] MEDS: guanFACINE HCL 1 MG TABLET PO (11:41)
[2024-04-04] MEDS: LOSARTAN POTASSIUM 25 MG TABLET 50 MG PO (11:41)
[2024-04-04] MEDS: CHOLECALCIFEROL 1,000 UNITS TABLET 2000 UNITS PO (11:42)
[2024-04-04] MEDS: rifAXIMin 550 MG TABLET PO (11:42)
[2024-04-04] MEDS: ATORVASTATIN 40 MG TABLET PO (11:42)
[2024-04-04] MEDS: FAMOTIDINE 10 MG TABLET PO (11:42)
[2024-04-04] MEDS: METOPROLOL SUCCINATE EXT REL 50 MG TABCR PO (11:43)
[2024-04-04] MEDS: calcitrioL 0.25 MCG CAPSULE PO (11:47)
[2024-04-04 12:06] LABS: Glucose Point of Care 137 mg/dl (65-105)
== END 2024-04-04 13:08 | disposition home or self-care (01) ==
LOC: ANHED 16:47 → ANHIMU 23:53 → ANH2MED 04-04 04:03 → ANHIMU 04-05 11:48
PROVIDERS: Internal Medicine Nephrology; Admitting Provider Internal Medicine; Emergency Provider Emergency Medicine; PCP Family Medicine; Visit Provider Internal Medicine
DX: E11.649 Type 2 diabetes mellitus with hypoglycemia without coma (principal); R41.82 Altered mental status, unspecified; E87.5 Hyperkalemia; I13.2 Hypertensive heart and chronic kidney disease with heart failure and with stage 5 chronic kidney disease, or end stage renal disease; I50.40 Unspecified combined systolic (congestive) and diastolic (congestive) heart failure; E11.22 Type 2 diabetes mellitus with diabetic chronic kidney disease; N18.6 End stage renal disease; Z99.2 Dependence on renal dialysis; E11.610 Type 2 diabetes mellitus with diabetic neuropathic arthropathy; D63.1 Anemia in chronic kidney disease; I69.322 Dysarthria following cerebral infarction; K21.9 Gastro-esophageal reflux disease without esophagitis; E11.21 Type 2 diabetes mellitus with diabetic nephropathy; E11.40 Type 2 diabetes mellitus with diabetic neuropathy, unspecified; E11.319 Type 2 diabetes mellitus with unspecified diabetic retinopathy without macular edema; I25.10 Atherosclerotic heart disease of native coronary artery without angina pectoris; N25.0 Renal osteodystrophy; E11.51 Type 2 diabetes mellitus with diabetic peripheral angiopathy without gangrene; E78.2 Mixed hyperlipidemia; Z95.1 Presence of aortocoronary bypass graft; Z89.612 Acquired absence of left leg above knee; Z89.611 Acquired absence of right leg above knee; Z87.891 Personal history of nicotine dependence; Z79.84 Long term (current) use of oral hypoglycemic drugs; Z79.01 Long term (current) use of anticoagulants; Z79.82 Long term (current) use of aspirin; Z95.2 Presence of prosthetic heart valve
CPT/HCPCS: 36415; 36600; 70450; 71045; 71275; 80053; 80061; 82805; 82948; 83036; 83880; 84443; 84484; 85025; 85027; 85380; 85610; 85730; 86706; 87040; 87340; 93005; 96365; 96366; 96374; 96375; 96376; 99285; A9270; G0257; G0378; J1644; J2270; J2405; J7030; Q9967

== ENCOUNTER 2024-04-29 06:47 | Emergency (ER) | payer MEDICARE, OTHER, SELFPAY ==
[2024-04-29] VITALS (11 sets, daily range): BP systolic 129–187; BP diastolic 102–124; PULSE 74–82; RESP 14–26; TEMP 36.4; O2SAT 93–100
--- NOTE | ~2024-04-29 | XR_ITS ---
XR chest 1V portable Ordering provider: Katherin Ayala MD History: 58 years Male with . CP, cough, congestion . Comparison: April 02, 2024 FINDINGS: MEDIASTINUM: The cardiac silhouette is slightly enlarged. Postoperative changes in the mediastinum. R ight permacath with the tip overlying superior vena cava. Congestive rashad. LUNGS: Bilateral alveolar and interstitial opacification suggestive of pulmonary edema. Underlying pn eumonia is not excluded. No effusion or pneumothorax. OTHER: No free air under the diaphragm. IMPRESSION: Cardiomegaly with cardiac decompensation and pulmonary edema. Underlying pneumonia is not excluded. Reviewed, dictated and finalized at location A. IMPRESSION: Cardiomegaly with cardiac decompensation and pulmonary edema. Underlying pneumo elida is not excluded.
--- NOTE | 2024-04-29 06:48 | ECG_ITS ---
Test Date: 2024-04-29 06:55:56 Measurements Intervals [place] Rate: 79 P: -2 OR: 202 QRS: 15 QRSD: 100 T: 32 QT: 404 QTc: 466 Interpretive Statements SINUS RHYTHM WITH OCCASIONAL VENTRICULAR PREMATURE COMPLEXES BORDERLINE ST-T WAVE ABNORMALITY- DIFFUSE LEADS BASELINE ARTIFACT- I, II, AVR, V4-V6 BORDERLINE ECG Compared to ECG 04/02/2024 14:24:52 NO SIGNIFICANT CHANGE Electronically Signed On 04-29-2024 08:26:46 CDT by Jairo French D.O.
[2024-04-29 07:02] LABS: Basophils Absolute Auto 0.1 K/mm3 (0.0-0.1); Basophils Percent Auto 0.9 % (0.2-1.2); Eosinophils Absolute Auto 0.1 K/mm3 (0-0.3); Eosinophils Percent Auto 1.4 % (0-4.4); Hematocrit 41.3 % (42.0-52.0); Hemoglobin 12.5 g/dL (14.0-18.0); Immature Granulocyte Absolute 0.02 K/mm3 (0.00-0.031); Immature Granulocyte Percent A 0.3 % (0-0.5); Mean Corpuscular HGB Conc 30.3 g/dl (32-36); Mean Corpuscular Hemoglobin 26.8 pg (26-34); Mean Corpuscular Volume 88.6 fl (80-100); Mean Platelet Volume 11.2 fl (7.4-10.4); Monocytes Percent Auto 13.8 % (2.6-8.5); Neutrophils Absolute Auto 4.2 K/mm3 (1.3-6.7); Neutrophils Percent Auto 60.6 % (45.5-73.1); Platelet Count Result 165 k/mm3 (150-375); Red Blood Count 4.66 M/mm3 (4.6-6.20); Red Cell Distribution Width 20.5 % (11.5-14.5)
[2024-04-29 07:14] LABS: INR 1.5; Prothrombin Time 18.3 Seconds (11.1-14.7)
[2024-04-29 07:15] LABS: Alanine Aminotransferase 20 U/L (6-50); Albumin Level 4.2 g/dL (3.5-5.1); Alkaline Phosphatase 264 U/L (38-126); Anion Gap 18 mmol/L (4-12); Aspartate Amino Transferase 24 U/L (17-59); Blood Urea Nitrogen 48 mg/dL (9-20); Calcium 9.4 mg/dL (8.4-10.2); Carbon Dioxide 21 mmol/L (22-30); Chloride 100 mmol/L (98-107); Estimated Glomerular Filt Rate 8; Glucose 109 mg/dL (65-110); Lipase 303 U/L (23-300); Potassium 4.4 mmol/L (3.4-5.0); Sodium 139 mmol/L (137-145)
[2024-04-29 07:16] LABS: Partial Thromboplastin Time 36.8 Seconds (22.3-36.8)
[2024-04-29 07:30] LABS: Troponin I 0.083 ng/mL (0.000-0.034)
[2024-04-29] MEDS: ACETAMINOPHEN 325 MG TABLET 650 MG PO (07:52)
[2024-04-29] MEDS: ASPIRIN 81 MG CHEWABLE TABLET 324 MG PO (07:52)
--- NOTE | 2024-04-29 08:08 | ED.CHESTPAIN ---
HPI - Chest Pain General Chief Complaint: Chest Pain Stated Complaint: Chest pain Time Seen by Provider: 04/29/24 07:03 History of Present Illness HPI narrative: Patient is a 58-year-old male who presents ER with chest pain. Reports it is central. It has occurred over last couple of days. It occurs when he pulls himself up into a sitting position. It can be sharp. It is better with rest. No cough or dyspnea. No nausea or vomiting. Patient has chronic kidney disease and is on dialysis. He also has liver failure. He has had a paracentesis in last week. Significant other feels like his face may be more swollen today and that he is more confused with slurred speech than is typical for him. Related Data Home Medications Medication Instructions Recorded Confirmed sevelamer carbonate 800 mg tablet 1,600 mg PO TIDWM 11/24/22 04/26/24 (Renvela) calcitriol 0.25 mcg capsule 0.25 mcg PO MOWEFR 09/19/23 04/26/24 cholecalciferol (vitamin D3) 50 2,000 unit PO DAILY 09/19/23 04/26/24 mcg (2,000 unit) tablet famotidine 20 mg tablet 10 mg PO DAILY 09/19/23 04/26/24 apixaban 5 mg tablet (Eliquis) 5 mg PO BID 01/17/24 04/26/24 aspirin 81 mg tablet 81 mg PO DAILY 01/17/24 04/26/24 guanfacine 1 mg tablet,extended 1 mg PO DAILY 01/17/24 04/26/24 release 24 hr losartan 25 mg tablet 50 mg PO DAILY 01/17/24 04/26/24 metoprolol succinate 50 mg 50 mg PO DAILY 01/17/24 04/26/24 tablet,extended release 24 hr thiamine HCl (vitamin B1) 100 mg 100 mg PO DAILY 01/17/24 04/26/24 tablet pregabalin 75 mg capsule 150 mg PO HS 02/05/24 04/26/24 rifaximin 550 mg tablet (Xifaxan) 550 mg PO Q12H 04/03/24 04/26/24 venlafaxine 75 mg tablet 75 mg PO Q12H 04/03/24 04/26/24 Allergies Allergy/AdvReac Type Severity Reaction Status Date / Time No Known Allergies Allergy Verified 04/29/24 07:01 Review of Systems Review of Systems: All systems reviewed & are unremarkable except as noted in HPI and below Constitutional: Constitutional: Reports no additional constitutional complaints ENT: Reports system reviewed and no additional complaints, except as documented Cardiovascular: Cardiovascular: Reports chest pain, Denies rapid heart rate, Denies radiating jaw, neck or arm pain and Denies slow heart rate Respiratory: Respiratory: Reports no additional respiratory complaints Musculoskeletal: Musculoskeletal: Reports no additional musculoskeletal complaints [facility] Past Medical History Medical History (Updated 04/29/24 @ 11:44 by Brian Bennett MD) Arthritis Bicuspid aortic valve Severe aortic stenosis status post bioprosthetic aortic valve replacement. Cerebrovascular accident (09/21/20) Thought to be embolic in nature, on long-term anticoagulation. Residual dysarthria. 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 Required temporary dialysis for a few months in spring 2019. Cirrhosis Combined systolic and diastolic congestive heart failure Echocardiogram dated 11/03/2020 showed mildly enlarged left ventricular chamber with normal left ventricular systolic function and ejection fraction of 55 to 60% (as low as 35% on previous echos), moderate increased LV wall thickness, grade 3 diastolic dysfunction, and mild mitral and tricuspid valve regurgitation. COVID-19 Diabetes Diabetic foot ulcer Diabetic foot ulcer Dialysis patient Encounter for central line placement End-stage renal disease on peritoneal dialysis Essential hypertension Finger fracture Foot abscess, right Former smoker 50 pack year smoking history, quit in 1987. Gastroesophageal reflux disease Hiatal hernia History of hemodialysis History of acute kidney injury on chronic kidney disease requiring hemodialysis in 2019. He has had a right IJ temporary dialysis c
[2024-04-29 09:25] LABS: Ammonia < 9 umol/L (9-30)
--- NOTE | 2024-04-29 09:42 | ECG_ITS ---
Test Date: 2024-04-29 09:47:11 Measurements Intervals [place] Rate: 79 P: 34 [place]: 192 QRS: 25 QRSD: 92 T: 30 QT: 403 QTc: 463 Interpretive Statements SINUS RHYTHM CANNOT R/O SEPTAL INFARCT, AGE INDETERMINATE BORDERLINE ST-T WAVE ABNORMALITY- DIFFUSE LEADS BASELINE WANDER- II, AVF ABNORMAL ECG Compared to ECG 04/29/2024 06:55:56 NO SIGNIFICANT CHANGE Electronically Signed On 04-29-2024 10:00:23 CDT by Jairo French D.O.
[2024-04-29 10:18] LABS: Troponin I 0.071 ng/mL (0.000-0.034)
--- NOTE | 2024-04-29 11:01 | PC.NURSE ---
EDP notified of pt BP, no new orders given at this time.
[2024-04-29] MEDS: FUROSEMIDE INJ 40 MG/4 ML VIAL IV PUSH (11:48)
== END 2024-04-29 11:56 | disposition home or self-care (01) ==
PROVIDERS: Student in an Organized Health Care Education/Training Program; Emergency Provider Emergency Medicine; PCP Family Medicine
DX: R07.81 Pleurodynia (principal); M19.90 Unspecified osteoarthritis, unspecified site; Z86.73 Personal history of transient ischemic attack (TIA), and cerebral infarction without residual deficits; D64.9 Anemia, unspecified; I13.2 Hypertensive heart and chronic kidney disease with heart failure and with stage 5 chronic kidney disease, or end stage renal disease; E11.22 Type 2 diabetes mellitus with diabetic chronic kidney disease; N18.6 End stage renal disease; I50.40 Unspecified combined systolic (congestive) and diastolic (congestive) heart failure; Z99.2 Dependence on renal dialysis; K21.9 Gastro-esophageal reflux disease without esophagitis; Z79.4 Long term (current) use of insulin
CPT/HCPCS: 36415; 71045; 80053; 82140; 83690; 84484; 85025; 85610; 85730; 93005; 96374; 99284; A9270; J1940

== ENCOUNTER 2024-05-18 09:53 | Observation (INO) | payer MEDICARE, OTHER, SELFPAY ==
[2024-05-18] VITALS (30 sets, daily range): BP systolic 117–180; BP diastolic 81–159; PULSE 46–124; RESP 10–21; TEMP 35.8–37; O2SAT 90–100; BMI 53.4
--- NOTE | ~2024-05-18 | XR_ITS ---
EXAMINATION: XR chest 1V portable 05/18/2024 11:49 INDICATION: Shortness of breath PROCEDURE: AP portable chest COMPARISON: Comparison to multiple prior studies sequentially, with oldest reviewed study dated 02/16. FINDINGS: The lungs are clear. Status post median sternotomy for CABG. Moderate cardiomegaly. There a re no pleural effusions. There is no pneumothorax suspected. Central venous catheter tip in the SVC . IMPRESSION: 1: NO ACUTE CARDIOPULMONARY DISEASE. Reviewed, dictated and finalized at location B.
--- NOTE | ~2024-05-18 | CT_ITS ---
EXAMINATION: CT brain wo con DATE: 05/18/2024 11:06 INDICATION: Altered mental status TECHNIQUE: Computed tomography (CT) of the head was performed without intravenous contrast. The dose- length product was 1210.67 mGy-cm. Automated exposure control and iterative reconstruction technique were employed. COMPARISON: CT dated 04/02/2024 FINDINGS: Generalized atrophy. Chronic right occipital lobe infarction. There are scattered mild km ventricular and subcortical white matter changes, most likely related to small vessel ischemic diseas e (microangiopathy). There is intracranial atherosclerosis. There is mucosal thickening of the left m axillary sinus. Chronic left frontal lobe infarction. Chronic right cerebellar infarctions. No acute infarction, hemorrhage, mass or mass effect. No depressed skull fractures. IMPRESSION: 1. No acute intracranial abnormality. Reviewed, dictated and finalized at location B.
--- NOTE | ~2024-05-18 | CT_ITS ---
EXAMINATION: CT abdomen pelvis wo con DATE: 05/18/2024 11:06 INDICATION: Abdominal distention TECHNIQUE: Computed tomography (CT) of the abdomen and pelvis was performed without intravenous contr ast. The dose-length product was 883.35 mGy-cm. Automated exposure control and iterative reconstructi on technique were employed. COMPARISON: CT dated 03/13/2024. FINDINGS: Lung bases unremarkable. Cardiomegaly. No significant pleural or pericardial effusion. Nono bstructive bowel gas pattern. Study limited by motion. Mild diffuse subcutaneous edema. Fat-containin g inguinal hernias. Severe extensive atherosclerosis redemonstrated. Bilateral renal atrophy. There i s ascites. Bladder wall mildly thickened, which may be due to underdistention or cystitis. IMPRESSION: 1. Ascites. 2: Renal atrophy. 3: Bladder wall thickening which may be due to underdistention or cystitis. Reviewed, dictated and finalized at location B.
--- NOTE | 2024-05-18 10:22 | ECG_ITS ---
Test Date: 2024-05-18 10:40:21 Measurements Intervals [place] Rate: 72 P: -16 [place]: 190 QRS: 22 QRSD: 113 T: 55 QT: 424 QTc: 465 Interpretive Statements SINUS RHYTHM CONSIDER INFERIOR INFARCT, AGE INDETERMINATE BORDERLINE ST-T WAVE ABNORMALITY- ANTEROLAT/HIGH LAT LEADS ABNORMAL ECG Compared to ECG 04/29/2024 09:47:11 No significant changes Electronically Signed On 05-18-2024 10:44:05 CDT by Jairo French D.O.
[2024-05-18 10:40] LABS: Alveolar/Arterial O2 Gradient 23.7 mmHg; Base Excess ABG -7.1 mEq/l (+/-2.0); Fractional Inspired Oxygen 21 %; HCO3 ABG 17.9 mEq/l (22.0-26.0); Oxygen Content ABG 16.5 %vol (16.0-22.0); Oxyhemoglobin 94.3 % THb (90.0-100.0); PCO2 ABG 34.1 mmHg (35.0-45.0); PO2 ABG 85.2 mmHg (80.0-100.0); PO2 FiO2 Ratio Arterial Blood 4.06 %; Total Hemoglobin 12.4 g/dL (12.0-18.0); pH ABG 7.337 (7.350-7.450)
[2024-05-18 10:41] LABS: Site Drawn RIGHT BRACHIAL
[2024-05-18 11:13] LABS: Basophils Absolute Auto 0.1 K/mm3 (0.0-0.1); Basophils Percent Auto 0.9 % (0.2-1.2); Eosinophils Absolute Auto 0.1 K/mm3 (0-0.3); Eosinophils Percent Auto 1.1 % (0-4.4); Hematocrit 37.7 % (42.0-52.0); Hemoglobin 11.8 g/dL (14.0-18.0); Immature Granulocyte Absolute 0.03 K/mm3 (0.00-0.031); Immature Granulocyte Percent A 0.4 % (0-0.5); Lymphocytes Absolute Auto 1.26 K/mm3 (0.9-3.2); Lymphocytes Percent Auto 15.7 % (18.3-44.2); Mean Corpuscular HGB Conc 31.3 g/dl (32-36); Mean Corpuscular Hemoglobin 27.2 pg (26-34); Mean Corpuscular Volume 86.9 fl (80-100); Mean Platelet Volume 11.1 fl (7.4-10.4); Monocytes Absolute Auto 1.1 K/mm3 (0.1-0.6); Neutrophils Absolute Auto 5.4 K/mm3 (1.3-6.7); Neutrophils Percent Auto 67.9 % (45.5-73.1); Platelet Count Result 145 k/mm3 (150-375); Red Blood Count 4.34 M/mm3 (4.6-6.20); Red Cell Distribution Width 20.3 % (11.5-14.5)
[2024-05-18 11:21] LABS: INR 1.4; Prothrombin Time 17.6 Seconds (11.1-14.7)
[2024-05-18 11:22] LABS: Partial Thromboplastin Time 34.6 Seconds (22.3-36.8)
[2024-05-18 11:25] LABS: Alanine Aminotransferase 25 U/L (6-50); Albumin Level 3.4 g/dL (3.5-5.1); Alkaline Phosphatase 443 U/L (38-126); Ammonia < 9 umol/L (9-30); Anion Gap 17 mmol/L (4-12); Aspartate Amino Transferase 18 U/L (17-59); Bilirubin,Total 0.8 mg/dL (0.2-1.3); Blood Urea Nitrogen 55 mg/dL (9-20); Calcium 9.3 mg/dL (8.4-10.2); Carbon Dioxide 19 mmol/L (22-30); Chloride 99 mmol/L (98-107); Estimated Glomerular Filt Rate 6; Glucose 92 mg/dL (65-110); Potassium 4.2 mmol/L (3.4-5.0); Sodium 135 mmol/L (137-145)
[2024-05-18 11:26] LABS: Lactic Acid Reflex 1.2 mmol/L (0.7-2.0)
--- NOTE | 2024-05-18 11:38 | ED.AMS ---
HPI - Altered Mental Status General Chief Complaint: Altered Mental Status Stated Complaint: multiple c/o, AMS x days Time Seen by Provider: 05/18/24 10:20 History of Present Illness HPI narrative: 58-year-old male with history of chronic kidney disease, liver cirrhosis, CVA. Family reports that the patient has had increased altered mental status over the last few days. Patient did miss dialysis today. Patient denies any other complaints. Related Data Home Medications Medication Instructions Recorded Confirmed sevelamer carbonate 800 mg tablet 1,600 mg PO TIDWM 11/24/22 04/26/24 (Renvela) calcitriol 0.25 mcg capsule 0.25 mcg PO MOWEFR 09/19/23 04/26/24 cholecalciferol (vitamin D3) 50 2,000 unit PO DAILY 09/19/23 04/26/24 mcg (2,000 unit) tablet famotidine 20 mg tablet 10 mg PO DAILY 09/19/23 04/26/24 apixaban 5 mg tablet (Eliquis) 5 mg PO BID 01/17/24 04/26/24 aspirin 81 mg tablet 81 mg PO DAILY 01/17/24 04/26/24 guanfacine 1 mg tablet,extended 1 mg PO DAILY 01/17/24 04/26/24 release 24 hr losartan 25 mg tablet 50 mg PO DAILY 01/17/24 04/26/24 metoprolol succinate 50 mg 50 mg PO DAILY 01/17/24 04/26/24 tablet,extended release 24 hr thiamine HCl (vitamin B1) 100 mg 100 mg PO DAILY 01/17/24 04/26/24 tablet pregabalin 75 mg capsule 150 mg PO HS 02/05/24 04/26/24 rifaximin 550 mg tablet (Xifaxan) 550 mg PO Q12H 04/03/24 04/26/24 venlafaxine 75 mg tablet 75 mg PO Q12H 04/03/24 04/26/24 Allergies Allergy/AdvReac Type Severity Reaction Status Date / Time No Known Allergies Allergy Verified 04/29/24 07:01 Review of Systems Review of Systems: ROS unobtainable: Yes unobtainable due to medical condition PMFSH Past Medical History Medical History (Updated 05/18/24 @ 15:37 by Tawanda Steen MD) Arthritis Bicuspid aortic valve Severe aortic stenosis status post bioprosthetic aortic valve replacement. Cerebrovascular accident (09/21/20) Thought to be embolic in nature, on long-term anticoagulation. Residual dysarthria and right sided weakness. 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 Required temporary dialysis for a few months in spring 2019. Cirrhosis Combined systolic and diastolic congestive heart failure Echocardiogram dated 11/03/2020 showed mildly enlarged left ventricular chamber with normal left ventricular systolic function and ejection fraction of 55 to 60% (as low as 35% on previous echos), moderate increased LV wall thickness, grade 3 diastolic dysfunction, and mild mitral and tricuspid valve regurgitation. Coronary artery disease COVID-19 Deep venous thrombosis End-stage renal disease on hemodialysis Monday, , Monday schedule. Essential hypertension Former smoker 50 pack year smoking history, quit in 1987. Gastroesophageal reflux disease Hiatal hernia Hypertension Impingement syndrome of left shoulder Infective endocarditis Mixed hyperlipidemia Osteomyelitis Peripheral vascular disease Renal osteodystrophy Type 2 diabetes mellitus Complicated by nephropathy, neuropathy, and retinopathy. Surgical History Surgical History (Updated 05/18/24 @ 13:25 by Hiwot Santiago PA-C) Amputation of left great toe (2019) Secondary to osteomyelitis. History of above-knee amputation of both lower extremities History of aortic valve replacement (07/24/20) 25 mm Inspiris bioprosthetic valve per Dr. Nam Daniels at [facility]. History of bilateral carpal tunnel release History of carpal tunnel release History of coronary artery bypass graft x 1 (07/24/20) Saphenous vein graft to obtuse marginal per Dr. Nam Daniels at [facility]. History of decompression of ulnar nerve (1998) History of tonsillectomy Family History Family History Mot
[2024-05-18 11:49] LABS: Influenza A QL RT-PCR Negative (Negative); Influenza B QL RT-PCR Negative (Negative); RSV RNA, RT-PCR Negative (Negative); SARS-CoV-2 RNA PCR Negative (Negative)
--- NOTE | 2024-05-18 11:53 | PC.NURSE ---
asked pt for urine sample. family states he doesn't produce urine very often
--- NOTE | 2024-05-18 13:20 | PM.IMHP ---
H&P: HPI History of Present Illness Date/Time: 05/18/24 14:00 Chief Complaint: Abdominal pain and confusion. Narrative: This is a chronically ill 58-year-old male with history of stroke, end-stage renal disease on hemodialysis, type 2 diabetes mellitus, coronary artery disease, peripheral vascular disease, hypertension, systolic and diastolic congestive heart failure, cirrhosis, and other comorbidities presented to the emergency department for evaluation of abdominal pain and confusion. The patient is alert and oriented x4 at the time my evaluation and provides the following history. His main complaint is that of aching pain upper abdominal pain, more so left-sided, which has been an ongoing problem for several weeks if not longer. He denies associated symptoms and gives no aggravating or alleviating factors. also reports that he seems a bit more confused than usual however the patient tells me that she seems to have difficulties understanding him since his speech was affected after his stroke and he does not think he is confused per se. He denies fever, chills, sweats, nausea, vomiting, diarrhea, epigastric pain, indigestion, bloating, and belching. He has no known history of peptic ulcers, gallbladder disease, or pancreatitis. In the ED: He was afebrile on arrival with stable vital signs. Labs were significant for WBC count of 8.0, hemoglobin 11.8, platelet 145, sodium 135, potassium 4.2, BUN 55, creatinine 8.70 alkaline phosphatase 443, ammonia less than 9, troponin 0.090. He was negative for influenza, RSV, and COVID. Head CT showed no acute intracranial abnormality. CT of the abdomen and pelvis showed ascites, renal atrophy, bladder wall thickening. Chest x-ray showed no acute cardiopulmonary disease. He is being admitted in this setting for [facility] Past Medical History Medical History Arthritis Bicuspid aortic valve Severe aortic stenosis status post bioprosthetic aortic valve replacement. Cerebrovascular accident (09/21/20) Thought to be embolic in nature, on long-term anticoagulation. Residual dysarthria and right sided weakness. 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 Required temporary dialysis for a few months in spring 2019. Cirrhosis Combined systolic and diastolic congestive heart failure Echocardiogram dated 11/03/2020 showed mildly enlarged left ventricular chamber with normal left ventricular systolic function and ejection fraction of 55 to 60% (as low as 35% on previous echos), moderate increased LV wall thickness, grade 3 diastolic dysfunction, and mild mitral and tricuspid valve regurgitation. Coronary artery disease COVID-19 Deep venous thrombosis End-stage renal disease on hemodialysis Monday, , Monday schedule. Essential hypertension Former smoker 50 pack year smoking history, quit in 1987. Gastroesophageal reflux disease Hiatal hernia Hypertension Impingement syndrome of left shoulder Infective endocarditis Mixed hyperlipidemia Osteomyelitis Peripheral vascular disease Renal osteodystrophy Type 2 diabetes mellitus Complicated by nephropathy, neuropathy, and retinopathy. Surgical History Surgical History (Updated 05/18/24 @ 13:25 by Hiwot Santiago PA-C) Amputation of left great toe (2019) Secondary to osteomyelitis. History of above-knee amputation of both lower extremities History of aortic valve replacement (07/24/20) 25 mm Inspiris bioprosthetic valve per Dr. Nam Daniels at [facility]. History of bilateral carpal tunnel release History of carpal tunnel release History of coronary artery bypass graft x 1 (07/24/20) Saphenous vein graft to obtuse marginal per Dr. Nma Daniels at [facility]. History of decompression of ulnar nerve (1998)
--- NOTE | 2024-05-18 15:12 | PC.NURSE ---
Received report for patient from ED nurse, patient went straight to dialysis from ED and has not yet been received to room 254. Placed telemetry on patient in dialysis
[2024-05-18 15:15] LABS: CRP 3.6 mg/dL (<1.0); Lipase 313 U/L (23-300); Magnesium 1.9 mg/dL (1.6-2.3)
[2024-05-18] MEDS: NACL 0.9% IRRIG BAG 1,000 ML 999 ML IRRIGATION (15:31)
[2024-05-18] MEDS: HEPARIN SODIUM 1,000 UNITS/ML VIAL 3000 UNITS (15:31)
[2024-05-18 15:33] LABS: Procalcitonin 0.6 ng/mL
[2024-05-18 15:37] LABS: Troponin I 0.097 ng/mL (0.000-0.034)
[2024-05-18 15:46] LABS: Hepatitis B Surface Antigen Negative (Negative)
[2024-05-18 15:51] LABS: Hepatitis B Core IgM Result Negative (Negative)
[2024-05-18 16:03] LABS: Hepatitis B Surface Anti Res Negative
--- NOTE | 2024-05-18 18:25 | ADMGEN ---
This patient, Pankaj Bautista, was admitted to Medical Room 254-01. Patient/family oriented to hospital policies and general routines including ID bracelet, bed and alarms, visiting hours, pain management, procedures, bathroom and other care routines, personal items, smoking policy, room service/diet, and visiting hours. Information on how to activate the Rapid Response Team has been discussed. Patient/Family are encouraged to report perceived risks to care and to ask questions if they do not understand what they are told or what they should do.
--- NOTE | 2024-05-18 18:28 | PC.NURSE ---
ROSELINE WEBSTER, SHARIFA dialysis
[2024-05-18] MEDS: VANCOMYCIN 1,500 MG/NS 500 ML 1,500 MG/500 ML BAG 250 MG IVPB (20:05)
[2024-05-18 21:04] LABS: Glucose Point of Care 142 mg/dl (65-105)
[2024-05-18] MEDS: APIXABAN 5 MG TABLET PO (21:12)
[2024-05-18] MEDS: VENLAFAXINE HCL 75 MG TABLET BY MOUTH (21:12)
[2024-05-18] MEDS: VENLAFAXINE HCL 37.5 MG TABLET BY MOUTH (21:12)
[2024-05-18] MEDS: PREGABALIN (*CRX) 75 MG CAPSULE 150 MG BY MOUTH (21:12)
[2024-05-18] MEDS: rifAXIMin 550 MG TABLET PO (21:14)
[2024-05-19] VITALS: PULSE 80
[2024-05-19 04:00] VITALS: PULSE 77
[2024-05-19 05:31] LABS: Hematocrit 37.6 % (42.0-52.0); Hemoglobin 11.5 g/dL (14.0-18.0); Mean Corpuscular HGB Conc 30.6 g/dl (32-36); Mean Corpuscular Hemoglobin 27.1 pg (26-34); Mean Corpuscular Volume 88.7 fl (80-100); Mean Platelet Volume 11.5 fl (7.4-10.4); Platelet Count Result 125 k/mm3 (150-375); Red Blood Count 4.24 M/mm3 (4.6-6.20); Red Cell Distribution Width 20.5 % (11.5-14.5); White Blood Count 7.6 K/mm3 (4.5-10.0)
[2024-05-19 05:45] LABS: Alanine Aminotransferase 22 U/L (6-50); Albumin Level 3.6 g/dL (3.5-5.1); Alkaline Phosphatase 289 U/L (38-126); Anion Gap 12 mmol/L (4-12); Aspartate Amino Transferase 18 U/L (17-59); Bilirubin,Total 0.9 mg/dL (0.2-1.3); Blood Urea Nitrogen 35 mg/dL (9-20); Calcium 8.9 mg/dL (8.4-10.2); Carbon Dioxide 27 mmol/L (22-30); Chloride 96 mmol/L (98-107); Estimated Glomerular Filt Rate 9; Glucose 86 mg/dL (65-110); Potassium 4.1 mmol/L (3.4-5.0); Sodium 135 mmol/L (137-145)
[2024-05-19 06:00] VITALS: BP 160/95; PULSE 79; RESP 18; TEMP 36.8; O2SAT 95
--- NOTE | 2024-05-19 07:08 | PM.IMPN ---
Progress Note: A&P Assessment and Plan (1) Upper abdominal pain: Code(s): R10.10 - Upper abdominal pain, unspecified Status: Acute Assessment and Plan: Alkaline phosphatase is elevated at 443 however AST, ALT, and total bilirubin are well within normal limits. Check GGT and monitor. CT of the abdomen pelvis does not show any findings to correlate for his symptoms. Lipase is barely above the upper limit of normal though he does seem to be more tender in the left upper quadrant. He has ascites however SBP seems unlikely. He has no leukocytosis and no left shift. (2) Confusion: Code(s): R41.0 - Disorientation, unspecified Status: Acute Assessment and Plan: On arrival to the ED patient was apparently A&Ox1. At time of hospitalist admission the patient was A&Ox4. Plan DVT prophylaxis: Eliquis GI prophylaxis: pepcid Glycemic control: low dose SSI, ac/hs, hypoglycemia protocol Bowel regimen: na Lines: PIV Code Status: DNR Disposition: Patient is from home and presents with complaints of AMS with left upper quadrant abdominal pain. Lipase is mildly elevated. Thus far his work up has been non-revealing. He was admitted for observation. Anticipate discharge back home. Medication reconciliation obtained via the following: Nurse completed on admission The file time of this note does not necessarily represent the time the patient was seen. Advance Care Plan I have confirmed that the patient's Advanced Care Plan is present, code status is documented, or surrogate decision maker is listed in patient medical record.: Yes Medication Reconciliation I have utilized all available resources to obtain, update and review the patients current medications (includes all prescriptions, OTC, herbals, cannabis, and nutritional supplements).: Yes Subjective Date/time seen: 05/19/24 07:08 Interval history: This is a chronically ill 58-year-old male with history of stroke, end-stage renal disease on hemodialysis, type 2 diabetes mellitus, coronary artery disease, peripheral vascular disease, hypertension, systolic and diastolic congestive heart failure, cirrhosis, and other comorbidities presented to the emergency department for evaluation of abdominal pain and confusion. 05/19: Review of Systems Review of Systems: All systems reviewed & are unremarkable except as noted in HPI and below Exam Narrative: General: well appearing, appears stated age. HEENT: normocephalic, atraumatic. Mucous membranes moist. EOMI, PERRLA, bilateral sclera anicteric, no conjunctival injection. Neck supple without JVD, lymphadenopathy, or bruit. Respiratory: clear to ascultation bilaterally. No rales/rhonic/wheezes. Cardiovascular: Regular rate and rhythm, normal S1-S2 upon ascultation. No murmurs, rubs, or clicks. PMI is nondisplaced, capillary refill less than 3 second. Abdomen: Soft, round, no pulsatile masses, nondistended and nontender. No rebound, no guarding. No CVA tenderness, no hepatosplenomegaly. Bowel sounds present to all four quadrants. No high pitch or tinkling sounds, resonant to percussion. Extremities: No cyanosis, clubbing, or edema present. Pulses are palpable 2/2. Active ROM to all four extremities. Neuro: Alert and orientated x 4. PERRLA. Cranial nerves 2-12 intact without focal deficit. Skin: Warm, dry, and intact, without rash, erythema, or lesion. Lines: Incisions: Psych: pleasant, cooperative, normal speech, normal affect, no hallucinations, no dysarthia Objective Data Vital Signs Vital Signs: Vital Signs - 24 hr 05/18/24 10:10 05/18/24 10:21 05/18/24 12:09 Temperature 97.5 F L Pulse Rate 73 73 Respiratory Rate 13 14 Blood Pressure 147/100 H 119/86 Pulse Oximetry 100 98 100 Oxy
[2024-05-19 08:00] VITALS: PULSE 79
[2024-05-19 08:15] LABS: Glucose Point of Care 91 mg/dl (65-105)
--- NOTE | 2024-05-19 09:05 | PM.CNNEP ---
Assessment and Plan Assessment and plan (1) End stage renal disease: Code(s): N18.6 - End stage renal disease Status: Chronic Assessment and Plan: The patient has end-stage renal disease. This is due to diabetes hypertension and vascular disease. He is on hemodialysis 3 times a week. He had his last treatment yesterday (2) Peripheral vascular disease: Code(s): I73.9 - Peripheral vascular disease, unspecified Status: Chronic Assessment and Plan: Patient has peripheral vascular disease status post bilateral [id number] amputations (3) Essential (primary) hypertension: Code(s): I10 - Essential (primary) hypertension Status: Chronic Assessment and Plan: Blood pressure was high yesterday. Some fluid came off in dialysis. This morning systolic is running in the 140s to 160s He is on guanfacine losartan metoprolol. Heart rate is in the 80s. Will increase guanfacine to 2 mg a day (4) Aortic valve stenosis: Qualifiers: Cardiac valve disease etiology: etiology unspecified Qualified Code(s): I35.0 - Nonrheumatic aortic (valve) stenosis Code(s): I35.0 - Nonrheumatic aortic (valve) stenosis Status: Chronic Assessment and Plan: Status post valve replacement (5) GERD (gastroesophageal reflux disease): Qualifiers: Esophagitis presence: esophagitis presence not specified Qualified Code(s): K21.9 - Gastro-esophageal reflux disease without esophagitis Code(s): K21.9 - Gastro-esophageal reflux disease without esophagitis Status: Acute Assessment and Plan: He is on pantoprazole (6) Type 2 diabetes mellitus with hyperglycemia: Qualifiers: 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 He is on insulin sliding scale here. (7) Anemia: Code(s): D64.9 - Anemia, unspecified Status: Acute Assessment and Plan: Hemoglobin is 11.5. Hold off on EPO for now (8) Renal osteodystrophy: Code(s): N25.0 - Renal osteodystrophy Status: Acute Assessment and Plan: Will check a phosphorus level tomorrow (9) Abdominal discomfort: Code(s): R10.9 - Unspecified abdominal pain Status: Acute Assessment and Plan: This is been going on for a long time. This could be related to his cirrhosis, he could have volume overload and liver distension from congestive hepatopathy, I doubt if he has spontaneous bacterial peritonitis because his belly is not very tender. In the past, in January, he had the same belly pain and his peritoneal fluid was benign. He does have some constipation occasionally. Will try a stool softener (10) Altered mental status: Code(s): R41.82 - Altered mental status, unspecified Status: Acute Assessment and Plan: This was present on admission. It seems better today. He is fairly conservative although has problems with time lines. His neurologic exam is unremarkable. Will let the hospitalist evaluate this see if there is anything else we need to do. History of Present Illness Reason for Consult Consult date: 05/19/24 Chief Complaint Chief complaint: Altered Mental Status/End Stage Renal Disease History of Present Illness Narrative: Pankaj is a very pleasant 58-year-old gentleman who has multiple medical problems including end-stage renal disease on hemodialysis formerly on peritoneal dialysis under the care of Dr. Frazier, diabetes but not on medicine anymore, hypertension, former smoker, bicuspid aortic valve status post bioprosthetic valve replacement on Eliquis, status post infected endocarditis, systolic and diastolic heart failure, coronary disea
[2024-05-19] MEDS: SEVELAMER CARBONATE 800 MG TABLET 1600 MG PO (09:16)
[2024-05-19] MEDS: ASPIRIN 81 MG CHEWABLE TABLET PO (09:18)
[2024-05-19] MEDS: APIXABAN 5 MG TABLET PO (09:18)
[2024-05-19 09:19] VITALS: PULSE 77
[2024-05-19] MEDS: METOPROLOL SUCCINATE EXT REL 50 MG TABCR PO (09:19)
[2024-05-19] MEDS: CHOLECALCIFEROL 1,000 UNITS TABLET 2000 UNITS PO (09:19)
[2024-05-19] MEDS: LOSARTAN POTASSIUM 50 MG TABLET PO (09:19)
[2024-05-19] MEDS: ATORVASTATIN 40 MG TABLET PO (09:19)
[2024-05-19] MEDS: THIAMINE HCL 100 MG TABLET PO (09:19)
[2024-05-19] MEDS: FAMOTIDINE 10 MG TABLET PO (09:19)
[2024-05-19] MEDS: PREGABALIN (*CRX) 75 MG CAPSULE BY MOUTH (09:22)
[2024-05-19] MEDS: VENLAFAXINE HCL 37.5 MG TABLET BY MOUTH (09:23)
[2024-05-19] MEDS: VENLAFAXINE HCL 75 MG TABLET BY MOUTH (09:23)
[2024-05-19] MEDS: PANTOPRAZOLE 40 MG TABLET PO (09:24)
[2024-05-19] MEDS: rifAXIMin 550 MG TABLET PO (09:25)
[2024-05-19 09:26] VITALS: BP 127/77; PULSE 77; RESP 18; O2SAT 93
[2024-05-19 11:49] LABS: Glucose Point of Care 112 mg/dl (65-105)
--- NOTE | 2024-05-19 12:10 | PM.DS ---
DS: Admitting Diagnosis Discharge Date 05/19 Admitting Diagnosis abdominal pain DS: Discharge Diagnosis Discharge Diagnosis (1) Upper abdominal pain: Code(s): R10.10 - Upper abdominal pain, unspecified Status: Acute Assessment and Plan: Alkaline phosphatase is elevated at 443 however AST, ALT, and total bilirubin are well within normal limits. Check GGT and monitor. CT of the abdomen pelvis does not show any findings to correlate for his symptoms. Lipase is barely above the upper limit of normal though he does seem to be more tender in the left upper quadrant. He has ascites however SBP seems unlikely. He has no leukocytosis and no left shift. (2) Confusion: Code(s): R41.0 - Disorientation, unspecified Status: Acute Assessment and Plan: On arrival to the ED patient was apparently A&Ox1. At time of hospitalist admission the patient was A&Ox4. Plan DVT prophylaxis: Eliquis GI prophylaxis: pepcid Glycemic control: low dose SSI, ac/hs, hypoglycemia protocol Bowel regimen: na Lines: PIV Code Status: DNR Disposition: Patient is from home and presents with complaints of AMS with left upper quadrant abdominal pain. Lipase is mildly elevated. Thus far his work up has been non-revealing. He was admitted for observation. Anticipate discharge back home. Medication reconciliation obtained via the following: Nurse completed on admission The file time of this note does not necessarily represent the time the patient was seen. Advance Care Plan I have confirmed that the patient's Advanced Care Plan is present, code status is documented, or surrogate decision maker is listed in patient medical record.: Yes Medication Reconciliation I have utilized all available resources to obtain, update and review the patients current medications (includes all prescriptions, OTC, herbals, cannabis, and nutritional supplements).: Yes DS: Summary Hospital Course Reason for hospitalization: abdominal pain Hospital Course: This is a chronically ill 58-year-old male with history of stroke, end-stage renal disease on hemodialysis, type 2 diabetes mellitus, coronary artery disease, peripheral vascular disease, hypertension, systolic and diastolic congestive heart failure, cirrhosis, and other comorbidities presented to the emergency department for evaluation of abdominal pain and confusion. The patient is alert and oriented x4 at the time my evaluation and provides the following history. His main complaint is that of aching pain upper abdominal pain, more so left-sided, which has been an ongoing problem for several weeks if not longer. He denies associated symptoms and gives no aggravating or alleviating factors. also reports that he seems a bit more confused than usual however the patient tells me that she seems to have difficulties understanding him since his speech was affected after his stroke and he does not think he is confused per se. He denies fever, chills, sweats, nausea, vomiting, diarrhea, epigastric pain, indigestion, bloating, and belching. He has no known history of peptic ulcers, gallbladder disease, or pancreatitis. In the ED: He was afebrile on arrival with stable vital signs. Labs were significant for WBC count of 8.0, hemoglobin 11.8, platelet 145, sodium 135, potassium 4.2, BUN 55, creatinine 8.70 alkaline phosphatase 443, ammonia less than 9, troponin 0.090. He was negative for influenza, RSV, and COVID. Head CT showed no acute intracranial abnormality. CT of the abdomen and pelvis showed ascites, renal atrophy, bladder wall thickening. Chest x-ray showed no acute cardiopulmonary disease. He is being admitted in this setting for observation of abdominal pain. He is doing well today. He denies abdominal pain
[2024-05-22 14:27] LABS: GGT 55 U/L
== END 2024-05-19 12:28 | disposition home or self-care (01) ==
LOC: ANHED 13:41 → ANH2MED 13:49
PROVIDERS: Internal Medicine Nephrology; Physician Assistant; Admitting Provider Hospitalist; Emergency Provider Emergency Medicine; PCP Family Medicine; Visit Provider Nurse Practitioner Acute Care
DX: R10.10 Upper abdominal pain, unspecified (principal); R14.0 Abdominal distension (gaseous); R79.89 Other specified abnormal findings of blood chemistry; I13.2 Hypertensive heart and chronic kidney disease with heart failure and with stage 5 chronic kidney disease, or end stage renal disease; E11.22 Type 2 diabetes mellitus with diabetic chronic kidney disease; N18.6 End stage renal disease; I50.40 Unspecified combined systolic (congestive) and diastolic (congestive) heart failure; Z99.2 Dependence on renal dialysis; E11.65 Type 2 diabetes mellitus with hyperglycemia; E11.610 Type 2 diabetes mellitus with diabetic neuropathic arthropathy; D64.9 Anemia, unspecified; I25.10 Atherosclerotic heart disease of native coronary artery without angina pectoris; K21.9 Gastro-esophageal reflux disease without esophagitis; E78.2 Mixed hyperlipidemia; E11.51 Type 2 diabetes mellitus with diabetic peripheral angiopathy without gangrene; Z20.822 Contact with and (suspected) exposure to COVID-19; N25.0 Renal osteodystrophy; I69.322 Dysarthria following cerebral infarction; I69.351 Hemiplegia and hemiparesis following cerebral infarction affecting right dominant side; K74.60 Unspecified cirrhosis of liver; E11.21 Type 2 diabetes mellitus with diabetic nephropathy; E11.40 Type 2 diabetes mellitus with diabetic neuropathy, unspecified; E11.319 Type 2 diabetes mellitus with unspecified diabetic retinopathy without macular edema; Z95.2 Presence of prosthetic heart valve; Z86.718 Personal history of other venous thrombosis and embolism; Z87.891 Personal history of nicotine dependence; Z89.612 Acquired absence of left leg above knee; Z89.611 Acquired absence of right leg above knee; Z95.1 Presence of aortocoronary bypass graft; Z79.84 Long term (current) use of oral hypoglycemic drugs; Z79.01 Long term (current) use of anticoagulants; Z79.82 Long term (current) use of aspirin
CPT/HCPCS: 36415; 36600; 70450; 71045; 74176; 80053; 82140; 82607; 82805; 82948; 82977; 83605; 83690; 83735; 84145; 84443; 84484; 85025; 85027; 85610; 85730; 86140; 86705; 86706; 87040; 87340; 87637; 93005; 96365; 96366; 99285; A9270; G0257; G0378; J1644; J3370; J7030

== ENCOUNTER 2024-06-17 10:24 | Emergency (ER) | payer MEDICARE, OTHER, SELFPAY ==
[2024-06-17] VITALS (14 sets, daily range): BP systolic 108–200; BP diastolic 67–117; PULSE 80–108; RESP 17–24; TEMP 36.4–36.7; O2SAT 95–100
--- NOTE | ~2024-06-17 | XR_ITS ---
EXAMINATION: XR chest port-a-cath/central 06/17/2024 13:47 INDICATION: Check central line placement PROCEDURE: AP portable chest COMPARISON: Chest dated 06/17/2024 and 05/18/2024 FINDINGS: The lungs are clear. Interval placement of left subclavian central line, tip in the SVC. Ri ght IJ portacatheter tip in the lower aspect of the SVC. Status post median sternotomy for CABG. Ther e is evidence of chronic granulomatous disease. The cardiomediastinal silhouette is within normal cantu its. There are no pleural effusions. There is no pneumothorax suspected. IMPRESSION: 1: NO ACUTE CARDIOPULMONARY DISEASE. Reviewed, dictated and finalized at location B.
--- NOTE | ~2024-06-17 | XR_ITS ---
Clinical Indication: Chest pain AP and lateral views of the chest: Comparison: 05/18/2024 Findings: There is mild central congestive change. Stable right-sided central venous line. Cardiomed iastinal silhouette is stable, status post aortic valve replacement. Bones and soft tissues are unrem arkable. Impression: Mild central congestive change. Stable support line. Status post aortic valve replacement. Reviewed, dictated and finalized at location . Impression: Mild central congestive change. Stable support line. Status post aortic valve replacement.
--- NOTE | ~2024-06-17 | CT_ITS ---
Non-contrast Head CT History: Slurred speech COMPARISON: 05/18/2024 Technique: Axial non-contrast imaging of the brain was performed. Dose reduction technique was used on this scan by utilizing automated exposure control and iterative reconstruction technique. The dose -length product (DLP) was 605.33 mGy-cm. Findings: There is a large acute parenchymal hemorrhage involving the left temporal lobe extending to the insular cortex region and left frontoparietal region, with the hematoma measuring overall approx imately 6.5 x 4.0 x 4.3 cm in extent. There is mild surrounding vasogenic edema. Mass effect results in mild compression of the left lateral ventricle with possible minimal rightward midline shift of th e septum pellucidum. There are background mild chronic white matter changes in the periventricular wh ite matter bilaterally, similar to prior exam. The ventricles and subarachnoid spaces are mildly dila mariajose. The calvarium appears normal. Retention cyst or polyp present in the left maxillary sinus. The visualized paranasal sinuses and mastoid air cells are otherwise clear. Impression: 6.5 x 4.0 x 4.3 cm parenchymal hemorrhage versus hemorrhagic infarct involving the left temporal lobe extending to the insular cortex region and left frontoparietal junction. Associated mild mass effect, as detailed above. Case discussed with CHRISTIAN Gonzalez at the time of this reading. Reviewed, dictated and finalized at [facility]. Impression: 6.5 x 4.0 x 4.3 cm parenchymal hemorrhage versus hemorrhagic infarct involving the left temporal lobe extending to the insular cortex region and left frontopa rietal junction. Associated mild mass effect, as detailed above. Case discussed with CHRISTIAN Gonzalez at the time of this reading.
--- NOTE | 2024-06-17 10:26 | ECG_ITS ---
Test Date: 2024-06-17 10:38:01 Measurements Intervals Home Rate: 106 P: 29 ME: 182 QRS: 43 QRSD: 87 T: 19 QT: 349 QTc: 463 Interpretive Statements SINUS TACHYCARDIA RIN SEPTAL MYOCARDIAL INFARCTION , OF INDETERMINATE AGE [40+ ms Q WAVE IN V1-V4] NONSPECIFIC T-WAVE ABNORMALITY ABNORMAL ECG Compared to ECG 05/18/2024 10:40:21 NO SIGNIFICANT CHANGE Electronically Signed On 06-18-2024 07:21:09 CDT by Liam Pham M.D.
[2024-06-17 10:58] LABS: Basophils Percent Auto 0.4 % (0.2-1.2); Eosinophils Percent Auto 0.1 % (0-4.4); Hematocrit 40.2 % (42.0-52.0); Hemoglobin 12.5 g/dL (14.0-18.0); Immature Granulocyte Absolute 0.02 K/mm3 (0.00-0.031); Immature Granulocyte Percent A 0.3 % (0-0.5); Lymphocytes Absolute Auto 0.76 K/mm3 (0.9-3.2); Lymphocytes Percent Auto 10.8 % (18.3-44.2); Mean Corpuscular HGB Conc 31.1 g/dl (32-36); Mean Corpuscular Hemoglobin 26.7 pg (26-34); Mean Corpuscular Volume 85.9 fl (80-100); Mean Platelet Volume 10.8 fl (7.4-10.4); Monocytes Absolute Auto 0.6 K/mm3 (0.1-0.6); Monocytes Percent Auto 8.6 % (2.6-8.5); Neutrophils Absolute Auto 5.6 K/mm3 (1.3-6.7); Neutrophils Percent Auto 79.8 % (45.5-73.1); Platelet Count Result 143 k/mm3 (150-375); Red Blood Count 4.68 M/mm3 (4.6-6.20); Red Cell Distribution Width 19.2 % (11.5-14.5)
[2024-06-17 11:07] LABS: Alanine Aminotransferase 15 U/L (6-50); Albumin Level 4.6 g/dL (3.5-5.1); Alkaline Phosphatase 244 U/L (38-126); Anion Gap 21 mmol/L (4-12); Aspartate Amino Transferase 23 U/L (17-59); Bilirubin,Total 1.5 mg/dL (0.2-1.3); Blood Urea Nitrogen 40 mg/dL (9-20); Calcium 9.8 mg/dL (8.4-10.2); Carbon Dioxide 19 mmol/L (22-30); Chloride 97 mmol/L (98-107); Estimated Glomerular Filt Rate 7; Glucose 154 mg/dL (65-110); Lipase 125 U/L (23-300); Sodium 137 mmol/L (137-145)
[2024-06-17 11:08] LABS: INR 1.5; Prothrombin Time 18.9 Seconds (11.1-14.7)
[2024-06-17 11:09] LABS: Partial Thromboplastin Time 35.6 Seconds (22.3-36.8)
[2024-06-17 11:36] LABS: Troponin I 0.082 ng/mL (0.000-0.034)
--- NOTE | 2024-06-17 12:48 | ED.SOB ---
HPI - SOB/Dyspnea General Chief Complaint: Shortness of Breath/Dyspnea <Syl Gonzalez PA-C - Last Filed: 06/18/24 09:22> Stated Complaint: sob, cp <Syl Gonzalez PA-C - Last Filed: 06/18/24 09:22> Time Seen by Provider: 06/17/24 12:48 <Syl Gonzalez PA-C - Last Filed: 06/18/24 09:22> Focused HPI: This is a 58 year old male that presents to the ER confusion. Ongoing since last night. Patient's reports slurred speech and confusion. He couldn't remember his last name at the doctors office this morning which concerned them and prompted them to send him in for further evaluation of AMS. Patient with history of ESRD. Dialysis Monday, , Monday. GENERAL: Chronically ill-appearing, well-nourished, and in no acute distress. HEAD: Normocephalic, atraumatic. CHEST: Clear to auscultation. ?No respiratory distress. HEART: Regular rate and rhythm.? NEURO: ?Alert and oriented x1. Patient screened in triage and initial orders placed.? ?Additional care and disposition to be based upon?diagnostic testing and treatment. <Syl Gonzalez PA-C - Last Filed: 06/18/24 09:22> History of Present Illness HPI Narrative: This is a 58-year-old male with significant comorbidities including end-stage renal disease on dialysis TTS, liver cirrhosis, prior CVAs, history DVTs and bilateral leg amputations. He presently takes Eliquis daily. He presents via walk-in triage with his who states that he has been acting more confused and lethargic lately. Patient was evaluated and triaged by MLP who was concerned for potential stroke pathology with last known well sometime last afternoon according to the . Patient was sent to the CT scanner for CT head noncontrast and CT angiography of the head and brain prior to my initial assessment. Upon returning from the CT scanner I encountered the patient with profound lethargy, is arousable with verbal and physical stimuli but confused not alert or oriented which he normally has a baseline of x3. CT scan was immediately reviewed which showed a very large intraparenchymal hemorrhage with mass effect. Patient was made a medical resuscitation. Collateral information was provided by EMR review and was present at bedside. Patient has a known DNR. <Ravi Garcia MD - Last Filed: 06/17/24 14:38> Related Data Home Medications: Home Medications Medication Instructions Recorded Confirmed sevelamer carbonate 800 mg tablet 1,600 mg PO TIDWM 11/24/22 06/17/24 (Renvela) calcitriol 0.25 mcg capsule 0.25 mcg PO MOWEFR 09/19/23 06/17/24 cholecalciferol (vitamin D3) 50 2,000 unit PO DAILY 09/19/23 06/17/24 mcg (2,000 unit) tablet famotidine 20 mg tablet 10 mg PO DAILY 09/19/23 06/17/24 apixaban 5 mg tablet (Eliquis) 5 mg PO BID 01/17/24 06/17/24 aspirin 81 mg tablet 81 mg PO DAILY 01/17/24 06/17/24 losartan 25 mg tablet 50 mg PO DAILY 01/17/24 06/17/24 metoprolol succinate 50 mg 50 mg PO DAILY 01/17/24 06/17/24 tablet,extended release 24 hr thiamine HCl (vitamin B1) 100 mg 100 mg PO DAILY 01/17/24 06/17/24 tablet pregabalin 75 mg capsule See Rx Instructions .Route .COMPLEX 02/05/24 06/17/24 rifaximin 550 mg tablet (Xifaxan) 550 mg PO Q12H 04/03/24 06/17/24 <Syl Gonzalez PA-C - Last Filed: 06/18/24 09:22> Allergies/Adverse Reactions: Allergies Allergy/AdvReac Type Severity Reaction Status Date / Time No Known Allergies Allergy Verified 06/17/24 10:36 <Syl Gonzalez PA-C - Last Filed: 06/18/24 09:22> Review of Systems Review of Systems: Unable to obtain secondary to patient's mental status <Ravi Garcia MD - Last Filed: 06/17/24 14:38> PMFSH Past Medical History Medical History: Medical History Arthritis Bicuspid aortic valve Severe aortic stenosis status post bioprosthetic aortic valve replacement. Cerebrovascular accident (09/21/20) Thought
[2024-06-17] MEDS: niCARdipine 20 MG/200 ML 20 MG/200 ML BAG 50 MG (13:29)
[2024-06-17] MEDS: levETIRAcetam 1000MG/NACL100ML 1,000 MG/100 ML BAG 999 MG (13:30)
--- NOTE | 2024-06-17 13:45 | ECG_ITS ---
Test Date: 2024-06-17 13:48:41 Measurements Intervals [place] Rate: 84 P: -15 [place]: 179 QRS: 34 QRSD: 104 T: 38 QT: 396 QTc: 470 Interpretive Statements SINUS RHYTHM NONSPECIFIC ST AND T WAVE ABNORMALITY Compared to ECG 06/17/2024 10:38:01 NO SIGNIFICANT CHANGES Electronically Signed On 06-18-2024 15:27:29 CDT by Felicia Webb M.D.
[2024-06-17] MEDS: [UNRECOGNIZED DRUG - OTHER] IV CONT (13:50)
[2024-06-17] MEDS: HUMAN PROTHROMBIN COMPLEX IV CONT (13:50)
[2024-06-17] MEDS: PHYTONADIONE ADULT INJ 10 MG in DEXTROSE 5% IN WATER 50 ML 100 MG IVPB (14:32)
[2024-06-17 15:32] LABS: Troponin I 0.079 ng/mL (0.000-0.034)
== END 2024-06-17 14:51 | disposition short-term general hospital (02) ==
PROVIDERS: Emergency Provider Student in an Organized Health Care Education/Training Program; PCP Family Medicine
DX: I61.8 Other nontraumatic intracerebral hemorrhage (principal); I61.1 Nontraumatic intracerebral hemorrhage in hemisphere, cortical; I16.1 Hypertensive emergency; Z79.01 Long term (current) use of anticoagulants; I13.2 Hypertensive heart and chronic kidney disease with heart failure and with stage 5 chronic kidney disease, or end stage renal disease; E11.22 Type 2 diabetes mellitus with diabetic chronic kidney disease; N18.6 End stage renal disease; I50.82 Biventricular heart failure; Z99.2 Dependence on renal dialysis; K21.9 Gastro-esophageal reflux disease without esophagitis; D64.9 Anemia, unspecified; Z87.891 Personal history of nicotine dependence
CPT/HCPCS: 36415; 36556; 70450; 71046; 80053; 83690; 84484; 85025; 85610; 85730; 93005; 96365; 96367; 99291; C1751; J1953; J2404; J3430; J7168